=== PATIENT | male | born 1950 | race Two or more races ===

== ENCOUNTER 2020-08-20 09:36 | Outpatient (REF) | payer MEDICARE, SELFPAY | END 2020-08-20 09:37 | disposition home or self-care (01) | LOC: HO.HMGCLDS 09:36 | PROVIDERS: PCP Hospitalist; Visit Provider Internal Medicine | DX: Z20.822 Contact with and (suspected) exposure to COVID-19 (principal) | CPT/HCPCS: 36415; C9803; U0003 ==

== ENCOUNTER 2021-01-28 07:54 | Outpatient (REF) | payer MEDICARE, SELFPAY ==
--- NOTE | ~2021-01-28 | US_ITS ---
EXAMINATION: US RETROPERITONEAL LIMITED (AORTA) CLINICAL INFORMATION: Personal history of nicotine dependence. COMPARISON: None. TECHNIQUE: [place]edillo-scale, color Doppler and spectral Doppler evaluation of the abdominal aorta. FINDINGS: The measurements of the aorta in maximum AP and transverse dimensions respectively are as follows: Proximal: 2.3 x 2.3 cm. Mid: 1.9 x 1.8 cm. Distal: 1.9 x 1.8 cm. PSV: 87 cm/s. The measurements of the common iliac arteries in maximum AP and TRV dimensions are as follows: Right: AP: 1.2 cm. TRV: 1.0 cm. Left: AP: 1.2 cm. TRV: 1.1 cm. US/US aorta IMPRESSION: Mildly ectatic mid and distal abdominal aorta with no evidence of AAA visualized.
== END 2021-01-28 07:55 | disposition home or self-care (01) ==
LOC: HO.US 07:54
PROVIDERS: PCP Internal Medicine; Visit Provider Internal Medicine
DX: Z13.6 Encounter for screening for cardiovascular disorders (principal); Z87.891 Personal history of nicotine dependence
CPT/HCPCS: 76775

== ENCOUNTER 2021-03-10 10:39 | Emergency (ER) | payer MEDICARE, SELFPAY ==
--- NOTE | ~2021-03-10 | US_ITS ---
EXAMINATION: US VENOUS ULTRASOUND WITH DOPPLER LOWER EXTREMITY, BILATERAL CLINICAL INFORMATION: Bilateral leg swelling with posterior knee pain COMPARISON: None TECHNIQUE: Ultrasound of the deep veins is performed from the hip to the calf with compression sonography and color and pulse Doppler assessment. Spectral analysis with color-flow imaging is performed. FINDINGS: RIGHT: There is normal venous compression and respiratory variation and augmented flow. The visualized common femoral vein, superficial femoral vein, profunda femoral vein, popliteal vein, and the trifurcation region shows no evidence of deep venous thrombosis. No popliteal fossa cyst. No popliteal artery aneurysm. LEFT: There is normal venous compression and respiratory variation and augmented flow. The visualized common femoral vein, superficial femoral vein, profunda femoral vein, popliteal vein, and the trifurcation region shows no evidence of deep venous thrombosis. There is no significant popliteal fossa cyst. No pump to artery aneurysm. If the patient's symptoms persist, followup ultrasound in 5 days 7 days might be of value to exclude proximal propagation from a non-visualized calf vein. US/US venous duplex LE BI IMPRESSION: No acute DVT demonstrated in the bilateral lower extremity.
--- NOTE | ~2021-03-10 | XR_ITS ---
EXAMINATION: XR KNEE, RIGHT CLINICAL INFORMATION: Right posterior knee pain. COMPARISON: None TECHNIQUE: Four views of the right knee. FINDINGS: There is mild reduction in the medial and patellofemoral compartment joint space. There are large suprapatellar and anterior tibial eminence osteophytes. No loose body seen. Minimal supralateral joint effusion is suspected. No visible acute fracture or dislocation seen. XR/XR knee RT 4V IMPRESSION: Mild degenerative changes medial and patellofemoral compartments. No visible acute fracture or dislocation seen.
[2021-03-10 11:31] VITALS: BP 158/72; PULSE 72; RESP 18; TEMP 36.6; O2SAT 96; BMI 37.1
--- NOTE | 2021-03-10 12:10 | ECG_ITS ---
Test Reason : KNEE PAIN Blood Pressure : / mmHG Vent. Rate : 068 BPM Atrial Rate : 062 BPM P-R Int : 000 ms QRS Dur : 106 ms QT Int : 480 ms P-R-T Axes : 000 022 140 degrees QTc Int : 510 ms Atrial fibrillation with premature ventricular or aberrantly conducted complexes Incomplete left bundle branch block ST & T wave abnormality, consider lateral ischemia Prolonged QT Abnormal ECG When compared with ECG of 02-NOV-2019 21:26, Rhythm change Referred By: Gustabo Hou Electronically Signed By:AHMET KAPADIA
[2021-03-10 12:22] VITALS: BP 175/78; PULSE 68; RESP 17; TEMP 36.4; O2SAT 96
--- NOTE | 2021-03-10 12:22 | ED_ITS ---
HPI - Extremity Problem General Chief complaint: Extremity Problem Stated complaint: Pain right leg Time Seen by Provider: 03/10/21 10:44 Source: patient Mode of arrival: ambulatory Limitations: no limitations History of Present Illness HPI Narrative: Patient presents to ED for right posterior knee pain the past 4 d ays. Patient states pain radiating to upper calf. Patient denies any chest pain or shortness of breath. Patient admits to chronic bilateral lower swelling due to CHF. Patient denies any coughing up blood, or frothy cough. MD Complaint: extremity pain Related Data Home Medications Medication Instructions Recorded Confirmed amlodipine 10 mg tablet 10 mg PO DAILY 05/14/20 12/02/20 blood-glucose meter #1 ea 05/14/20 12/02/20 furosemide 40 mg tablet 40 mg PO BID 05/14/20 12/02/20 isosorbide mononitrate 60 mg 60 mg PO QAM 05/14/20 12/02/20 tablet,extended release 24 hr lancets #100 ea 05/14/20 12/02/20 sertraline 50 mg tablet 50 mg PO DAILY 05/14/20 12/02/20 hydroxyzine pamoate 50 mg capsule 50 mg PO BID PRN 10/14/20 12/02/20 apixaban 2.5 mg tablet 2.5 mg PO BID 12/02/20 12/02/20 hydralazine 50 mg tablet 25 mg PO TID 12/02/20 12/02/20 linagliptin 5 mg tablet 5 mg PO DAILY 12/02/20 12/02/20 Previous Rx's Medication Instructions Recorded ferrous sulfate 325 mg (65 mg 325 mg PO BID #60 tab 06/09/20 iron) tablet lisinopril 5 mg tablet 5 mg PO DAILY 90 Days #90 tab 12/02/20 loratadine 10 mg tablet (Allergy 10 mg PO DAILY 90 Days #90 tab 12/30/20 Relief (loratadine)) blood sugar diagnostic #50 ea 01/24/21 Allergies Allergy/AdvReac Type Severity Reaction Status Date / Time No Known Allergies Allergy Verified 12/02/20 13:32 [No Known Allergies*] Review of Systems Review of Systems: Yes all other systems are reviewed and are negative and unobtainable due to endotracheal tube Constitutional: Constitutional: Reports as per HPI and Reports no additional c onstitutional complaints Eyes: Eyes: Reports as per HPI and Reports no additional eye complaints ENT: Reports system reviewed and no additional complaints, except as documented and Reports as per HPI Cardiovascular: Cardiovascular: Reports as per HPI and Reports no additional cardiovascular complaints Respiratory: Respiratory: Reports as per HPI and Reports no additional respiratory complaints Gastrointestinal: Gastrointestinal: Reports as per HPI and Reports no additional gastrointestinal complaints Genitourinary: Genitourinary: Reports no additional male genitourinary complaints and Reports as per HPI Musculoskeletal: Musculoskeletal: Reports no additional musculoskeletal complaints and Reports as per HPI Comments: Right posterior knee pain Neurologic: Reports system reviewed and no additional complaints, except as documented and Reports as per HPI Psychiatric: Psychiatric: Reports no additional psychiatric complaints and Reports as per HPI [facility] Past Medical History Medical History (Updated 03/10/21 @ 16:41 by VIRAJ Yeung) Depression Diabetes Former smoker High cholesterol Hypertension Surgical History History of aneurysm History of shoulder surgery Family History Family History Father No problems noted. Mother Diabetes Hypertension Cancer Son No problems noted. Son No problems noted. Son No problems noted. Daughter No problems noted. Daughter No problems noted. Social History Social History (Updated 12/02/20 @ 13:36 by Alena Lyles MD) Alcohol intake: never Advance Directives: No Advance Directives Information Provided: Yes Physical Exam Vital Signs: Vital Signs: Last Vital Signs Temp 97.5 F 03/10/21 14:03 Pulse 67 03/10/21 14:03 Resp 16 03/10/21 14:03 BP 178/88 H 03/10/21 14:03 Pulse Ox 92 03/10/21 14:03 Body Mass Index 37.1 Const: General: cooperative, healthy appearing, comfortable, no acute distress, well developed, alert and awake HENMT: Head: Yes normal to inspection, Yes No palpable skull fracture present, Yes normocephalic, Yes atraumatic and No abrasion Eyes: General: appearance normal, both eyes and all related structures Neck: Neck: Yes normal visual inspection, Yes full ROM, Yes no lymphadenopathy, Yes no meningeal signs, Yes trachea midline, Yes supple and No tender Chest: Chest palpation & inspection: normal inspection of the chest and normal palpation of entire chest wall Resp: Effort & Inspection: normal respiratory effort and able to speak in complete sentences Auscultation: clear to auscultation bilaterally Cardio: Jugular venous distension: no JVD Heart sounds: S1 normal heart sound present and S2 normal heart sound present GI: Inspection: Yes normal to inspection and No abdominal wall ecchymosis Palpation (GI): Soft to palpation, not firm, nontender, no guarding and not rigid : General: No CVA tenderness and Yes no CVA tenderness Back/Spine/Pelvis: Back: no CVA tenderness, No CVA tenderness and No back tenderness Skin: General skin exam: no rashes or lesions noted and elasticity normal Neuro: General: no meningeal signs Extrem: Other: Left lower extremity positive for swelling, pitting edema. Negative for any erythema or calf tenderness. Vascular/motor/neuro exam intact Knee images: 1. Tenderness on palpation. Negative for erythema. Negative for palpable cord. Negative for mass on palpation. Rest the right lower extremity positive for swelling and pitting edema, but negative for any erythema. Vascular/motor/neuro exam is intact Course Course Course Narrative: Patient will have labs, sent for ultrasound of right lower extremity and knee x-ray. Will do BNP also. Reevaluation(s) Reevaluation #1: X-ray and ultrasound come back negative for blood clot. Mr. troponin 22. On 4. Patient denies any chest pain or shortness of breath. Patient is in [place] will give fluids. Time: 12:36 Reevaluation #2: Patient refusing repeat IV fluid and does not want repeat chemistry labs to be drawn. Patient agreeable to sign out against medical advice. Patient explained possibility of , decreased quality of life, and disability acute kidney injury. Patient discussed for possibility for evaluation of new atrial fibrillation as observation or admission, but will still like to sign out against medical advice.. on new onset atrial fibrillation is rate controlled and he is agreeable to follow up with outpatient Dr. Olivera of Cardiology Time: 16:37 MDM - Extremity (Nontraumatic) MDM Narrative Medical decision making narrative: Knee pain. Atrial fibrillation. A KI Lab Data Result diagrams: 03/10/21 12:36 03/10/21 12:36 Labs: Lab Results 03/10/21 03/10/21 03/10/21 Range/Units 12:36 12:36 12:36 WBC 7.0 (4.8-10.8) X10*3/uL RBC 3.81 L (4.60-5.80) X10*6/uL Hgb 10.4 L (14.0-18.0) g/dl Hct 31.6 L (42-52) % MCV 82.9 (80-98) fL MCH 27.3 (27.0-33.0) pg MCHC 32.9 (31.0-36.0) g/dl RDW 14.6 (11.0-16.0) % Plt Count 199 (160-400) X10*3/uL MPV 8.8 L (9.4-12.4) fL Immature Gran % (Auto) 0.6 H (0.0-0.4) % Neut % (Auto) 74.0 H (45-73) % Lymph % (Auto) 16.7 L (20-40) % [place] % (Auto) 7.2 (2-11) % Eos % (Auto) 1.4 (0-4) % Baso % (Auto) 0.1 (0-2) % Lymph # (Auto) 1.2 (1.2-4.9) X10*3/uL [place] # (Auto) 0.5 (0.1-1.2) X10*3/uL Eos # (Auto) 0.1 (0.0-0.4) X10*3/uL Baso # (Auto) 0.0 (0.0-0.2) X10*3/uL Abs Immat Gran (auto) 0.04 H (0.00-0.03) X10*3/uL Absolute Neuts (auto) 5.2 (2.0-8.3) X10*3/uL Absolute Nucleated RBC 0.000 (0.0-0.012) X10*3/uL Nucleated RBC % (auto) 0.0 (0.0-0.2) /100WBC PT (9.9-13.0) SEC INR (0.9-1.1) APTT (24.1-38.0) SEC Sodium 142 (135-145) mmol/L Potassium 3.3 (3.3-5.1) mmol/L Chloride 108 (96-108) mmol/L Carbon Dioxide 25 (22-29) mmol/L Anion Gap 12 (12-20) BUN 29 H (9-16) mg/dL Creatinine 1.74 H (0.5-1.4) mg/dL Estim Creat Clear Calc 45.9 Estimated GFR 39 Random Glucose 109 (60-115) mg/dL Calcium 8.2 L (8.4-10.2) mg/dL Total Bilirubin 0.7 (0.0-1.0) mg/dL AST 19 (5-37) U/L ALT 14 (0-40) U/L Alkaline Phosphatase 91 (39-117) U/L Troponin I High Sens (<3.5-35.0) ng/L B-Natriuretic Peptide 294 H (<100) pg/mL Total Protein 6.6 (6.5-8.0) g/dL Albumin 3.6 (3.5-5.0) g/dL TSH 1.40 (0.32-4.0) uIU/mL 03/10/21 03/10/21 03/10/21 Range/Units 12:36 12:37 15:26 WBC (4.8-10.8) X10*3/uL RBC (4.60-5.80) X10*6/uL Hgb (14.0-18.0) g/dl Hct (42-52) % MCV (80-98) fL MCH (27.0-33.0) pg MCHC (31.0-36.0) g/dl RDW (11.0-16.0) % Plt Count (160-400) X10*3/uL MPV (9.4-12.4) fL Immature Gran % (Auto) (0.0-0.4) % Neut % (Auto) (45-73) % Lymph % (Auto) (20-40) % [place] % (Auto) (2-11) % Eos % (Auto) (0-4) % Baso % (Auto) (0-2) % Lymph # (Auto) (1.2-4.9) X10*3/uL [place] # (Auto) (0.1-1.2) X10*3/uL Eos # (Auto) (0.0-0.4) X10*3/uL Baso # (Auto) (0.0-0.2) X10*3/uL Abs Immat Gran (auto) (0.00-0.03) X10*3/uL Absolute Neuts (auto) (2.0-8.3) X10*3/uL Absolute Nucleated RBC (0.0-0.012) X10*3/uL Nucleated RBC % (auto) (0.0-0.2) /100WBC PT 15.0 H (9.9-13.0) SEC INR 1.3 H (0.9-1.1) APTT 42.5 H (24.1-38.0) SEC Sodium (135-145) mmol/L Potassium (3.3-5.1) mmol/L Chloride (96-108) mmol/L Carbon Dioxide (22-29) mmol/L Anion Gap (12-20) BUN (9-16) mg/dL Creatinine (0.5-1.4) mg/dL Estim Creat Clear Calc Estimated GFR Random Glucose (60-115) mg/dL Calcium (8.4-10.2) mg/dL Total Bilirubin (0.0-1.0) mg/dL AST (5-37) U/L ALT (0-40) U/L Alkaline Phosphatase (39-117) U/L Troponin I High Sens 22.3 26.9 (<3.5-35.0) ng/L B-Natriuretic Peptide (<100) pg/mL Total Protein (6.5-8.0) g/dL Albumin (3.5-5.0) g/dL TSH (0.32-4.0) uIU/mL ECG Data Interpretation: Atrial fibrillation. Ventricular rate 68. QRS 106. QTC 510 Discharge Plan Discharge Clinical Impression: Arthritis of knee Patient Disposition: Left Against Medical Advice Instructions: A-fib (Atrial Fibrillation) (ED), Osteoarthritis (ED) Additional Instructions: Return to the ED for any redness, worsening leg pain, chest pain, shortness of breath, palpitations, fever, chills, paralysis of lower extremities, inability to walk, or any other concerning symptoms. Prescriptions: No Action ferrous sulfate 325 mg (65 mg iron) tablet 325 mg PO BID Qty: 60 RF: 10 loratadine [Allergy Relief (loratadine)] 10 mg tablet 10 mg PO DAILY 90 Days Qty: 90 RF: 1 (DME) blood sugar diagnostic Strip See Rx Instructions strip .ROUTE BID Qty: 50 RF: 11 amlodipine 10 mg tablet 10 mg PO DAILY RF: 0 sertraline 50 mg tablet 50 mg PO DAILY RF: 0 furosemide 40 mg tablet 40 mg PO BID RF: 0 isosorbide mononitrate 60 mg tablet extended release 24 hr 60 mg PO QAM RF: 0 (DME) blood-glucose meter Misc See Rx Instructions ea PO BID Qty: 1 RF: 0 (DME) lancets Misc See Rx Instructions lancet .ROUTE BID Qty: 100 RF: 0 Eliquis 2.5 mg tablet 2.5 mg PO BID RF: 0 Tradjenta 5 mg tablet 5 mg PO DAILY RF: 0 hydralazine 50 mg tablet 25 mg PO TID RF: 0 lisinopril 5 mg tablet 5 mg PO DAILY 90 Days Qty: 90 RF: 1 hydroxyzine pamoate 50 mg capsule 50 mg PO BID PRNRF: 0 Referrals: Edinson Olivera MD [Physician] - 2 days (New onset rate controlled atrial fibrillation. Patient already on Eliquis) Stand Alone Forms: Against Medical Advice Interventions: ED Discharge Assessment Last Done: 03/10/21 16:48 Discharge Date/Time: 03/10/21 16:48 Print Language: Kyrgyz
[2021-03-10 12:45] LABS: MANUAL DIFF FLAG NO
[2021-03-10 12:55] LABS: Basophils Percent Auto 0.1 % (0-2); Eosinophils Absolute Auto 0.1 X10*3/uL (0.0-0.4); Eosinophils Percent Auto 1.4 % (0-4); Hematocrit 31.6 % (42-52); Hemoglobin 10.4 g/dl (14.0-18.0); Imm Gran Abs Auto 0.04 X10*3/uL (0.00-0.03); Imm Gran Pct Auto 0.6 % (0.0-0.4); Lymphocytes Absolute Auto 1.2 X10*3/uL (1.2-4.9); Lymphocytes Percent Auto 16.7 % (20-40); Mean Corpuscular HGB Conc 32.9 g/dl (31.0-36.0); Mean Corpuscular Hemoglobin 27.3 pg (27.0-33.0); Mean Corpuscular Volume 82.9 fL (80-98); Mean Platelet Volume 8.8 fL (9.4-12.4); Monocytes Absolute Auto 0.5 X10*3/uL (0.1-1.2); Monocytes Percent Auto 7.2 % (2-11); Neutrophils Absolute Auto 5.2 X10*3/uL (2.0-8.3); Platelet Count 199 X10*3/uL (160-400); Red Blood Count 3.81 X10*6/uL (4.60-5.80); Red Cell Distribution Width 14.6 % (11.0-16.0)
[2021-03-10 12:58] LABS: INTERNATIONAL NORM RATIO 1.3 (0.9-1.1)
[2021-03-10 13:01] LABS: Partial Thromboplastin Time 42.5 SEC (24.1-38.0)
[2021-03-10 13:08] LABS: Alanine Aminotransferase 14 U/L (0-40); Albumin Level 3.6 g/dL (3.5-5.0); Alkaline Phosphatase 91 U/L (39-117); Anion Gap 12 (12-20); Aspartate Amino Transferase 19 U/L (5-37); Bilirubin Total 0.7 mg/dL (0.0-1.0); Blood Urea Nitrogen 29 mg/dL (9-16); Calcium 8.2 mg/dL (8.4-10.2); Carbon Dioxide 25 mmol/L (22-29); Chloride 108 mmol/L (96-108); Creatinine Clr Calc Pharmacy 45.9; Estimated Glomerular Filt Rate 39; Glucose Random 109 mg/dL (60-115); Potassium 3.3 mmol/L (3.3-5.1); Sodium 142 mmol/L (135-145); Total Protein 6.6 g/dL (6.5-8.0)
[2021-03-10 13:14] LABS: B Type Natriuretic Peptide 294 pg/mL (<100)
[2021-03-10 13:15] LABS: Troponin-I High Sensitivity 22.3 ng/L (<3.5-35.0)
[2021-03-10 14:03] VITALS: BP 178/88; PULSE 67; RESP 16; TEMP 36.4; O2SAT 92
[2021-03-10 16:01] LABS: Troponin-I High Sensitivity 26.9 ng/L (<3.5-35.0)
--- NOTE | 2021-03-10 16:26 | PC.NURSE ---
pt refusing iv line and ordered iv fluids. provider at bedside to discuss plan of care.
== END 2021-03-10 16:48 | disposition left against medical advice (07) ==
PROVIDERS: Physician Assistant; Emergency Provider Emergency Medicine; PCP Internal Medicine
DX: M17.0 Bilateral primary osteoarthritis of knee (principal); I48.91 Unspecified atrial fibrillation; M79.604 Pain in right leg; M25.561 Pain in right knee; R06.02 Shortness of breath; R60.0 Localized edema; Z79.899 Other long term (current) drug therapy; Z87.891 Personal history of nicotine dependence
CPT/HCPCS: 36415; 73564; 80053; 83880; 84443; 84484; 85025; 85610; 85730; 93005; 93970; 99284

== ENCOUNTER 2021-04-01 11:40 | Emergency (ER) | payer MEDICARE, SELFPAY ==
--- NOTE | ~2021-04-01 | XR_ITS ---
EXAMINATION: XR CHEST CLINICAL INFORMATION: Congestive heart failure COMPARISON: Chest x-ray November 02, 2019 TECHNIQUE: Frontal portable view of the chest was obtained. 4:29 PM FINDINGS: There is mild increase prior vascularity with mild cephalization of the pulmonary vascularity and faint curly B lines at the right lung base. No overt pulmonary edema. No dense consolidation. No large pleural effusion. Cardiac and mediastinal contours are normal. There is multilevel degenerative spondylosis spine. Degenerative joint disease of right and left glenohumeral joints with spurs of the humeral head. XR/XR chest 1V IMPRESSION: Mild congestive heart failure. No overt pulmonary edema.
[2021-04-01 12:04] VITALS: BP 154/58; PULSE 72; RESP 18; TEMP 36.8; O2SAT 93; BMI 34.8
--- NOTE | 2021-04-01 15:26 | ED_ITS ---
HPI - General Adult General Chief complaint: General Medical Stated complaint: difficulty breathing, swollen legs Time Seen by Provider: 04/01/21 15:26 Source: patient Mode of arrival: ambulatory Limitations: no limitations History of Present Illness HPI narrative: Patient complaining of bilateral leg swelling and shortness of breath for last 3- 4 days says he ran out of his water pill denies any chest pain. Patient denies any cough no fever no chills gained several lbs in last few days Related Data Home Medications Medication Instructions Recorded Confirmed amlodipine 10 mg tablet 10 mg PO DAILY 05/14/20 12/02/20 blood-glucose meter #1 ea 05/14/20 12/02/20 furosemide 40 mg tablet 40 mg PO BID 05/14/20 12/02/20 isosorbide mononitrate 60 mg 60 mg PO QAM 05/14/20 12/02/20 tablet,extended release 24 hr lancets #100 ea 05/14/20 12/02/20 sertraline 50 mg tablet 50 mg PO DAILY 05/14/20 12/02/20 hydroxyzine pamoate 50 mg capsule 50 mg PO BID PRN 10/14/20 12/02/20 apixaban 2.5 mg tablet 2.5 mg PO BID 12/02/20 12/02/20 hydralazine 50 mg tablet 25 mg PO TID 12/02/20 12/02/20 linagliptin 5 mg tablet 5 mg PO DAILY 12/02/20 12/02/20 Previous Rx's Medication Instructions Recorded ferrous sulfate 325 mg (65 mg 325 mg PO BID #60 tab 06/09/20 iron) tablet lisinopril 5 mg tablet 5 mg PO DAILY 90 Days #90 tab 12/02/20 loratadine 10 mg tablet (Allergy 10 mg PO DAILY 90 Days #90 tab 12/30/20 Relief (loratadine)) blood sugar diagnostic #50 ea 01/24/21 Allergies Allergy/AdvReac Type Severity Reaction Status Date / Time No Known Allergies Allergy Verified 12/02/20 13:32 [No Known Allergies*] Review of Systems Review of Systems: Constitutional : No Weight loss, No Fever, No Chills ENT/Mouth : No sore throat, No Rhinorrhea Eyes: No Eye Pain, No Swelling Cardiovascular : No Chest Pain, no palpitations Respiratory : No Cough, No Sputum, +++shortness of breath Gastrointestinal : no Nausea, No Vomiting, No Diarrhea, No abdominal Pain, no black stools Genitourinary : No Dysuria, No Urinary Frequency Musculoskeletal : No joint pain, No Myalgias, No Joint Swelling Skin : No Skin Lesions, No rash Neuro : No Weakness, No Numbness, No Dizziness, No Headache Psych : No Anxiety/Panic, No Depression Heme/Lymph: No Bruising, No Lymphadenopathy Endocrine : No Polyuria, No Polydipsia All other systems reviewed and are negative Yes all other systems are reviewed and are negative [facility] Past Medical History Medical History (Updated 04/01/21 @ 16:50 by Salty Mclean MD) Depression Diabetes Former smoker High cholesterol Hypertension Surgical History History of aneurysm History of shoulder surgery Family History Family History Father No problems noted. Mother Diabetes Hypertension Cancer Son No problems noted. Son No problems noted. Son No problems noted. Daughter No problems noted. Daughter No problems noted. Social History Social History (Updated 12/02/20 @ 13:36 by Alena Lyles MD) Alcohol intake: never Advance Directives: Yes Advance Directives Information Provided: Yes Advance Directives on File: No Physical Exam Vital Signs: Vital Signs: Last Vital Signs Temp 98.7 F 04/01/21 16:33 Pulse 75 04/01/21 16:33 Resp 16 04/01/21 16:33 BP 187/95 H 04/01/21 16:33 Pulse Ox 97 04/01/21 16:33 Body Mass Index 34.8 Appearance: Alert. Oriented X3. No acute distress. Eyes: PERRLA, No Nystagmus ENT: Pharynx normal. Oral Mucosa moist Neck: Normal inspection. Neck supple. CVS: Normal heart rate and rhythm. Pulses normal. Respiratory: No respiratory distress. no wheezing/rales/rhonchi, decreased air entry bilateral bases Abdomen: Soft and nontender. Bowel sounds are present, no mass palpable, no CVA tenderness Skin: Skin warm and dry. Normal skin color. Normal skin turgor. Extremities: 4++ lower extremity edema. No calf tenderness Neuro: Oriented X 3. No motor deficit. No sensory deficit.No cerebellar signs , cranial nerves II-XII intact Medical Decision Making MDM Narrative Medical decision making narrative: Patient with increased shortness of breath with exertional dyspnea and increased leg edema clinically CHF labs are pending patient was given Lasix 40 mg IV patient used to be on 40 mg Lasix twice daily, patient saturating 97% on room air. Patient isigned out to Dr. Stein pending labs and disposition Lab Data Lab results reviewed: Yes I reviewed the patient's lab results. Result diagrams: 04/01/21 16:27 04/01/21 16:27 Labs: Lab Results 04/01/21 Range/Units 16:27 WBC 6.4 (4.8-10.8) X10*3/uL RBC 3.56 L (4.60-5.80) X10*6/uL Hgb 9.9 L (14.0-18.0) g/dl Hct 30.5 L (42-52) % MCV 85.7 (80-98) fL MCH 27.8 (27.0-33.0) pg MCHC 32.5 (31.0-36.0) g/dl RDW 15.5 (11.0-16.0) % Plt Count 211 (160-400) X10*3/uL MPV 8.6 L (9.4-12.4) fL Immature Gran % (Auto) 0.5 H (0.0-0.4) % Neut % (Auto) 71.8 (45-73) % Lymph % (Auto) 18.2 L (20-40) % [place] % (Auto) 7.1 (2-11) % Eos % (Auto) 2.2 (0-4) % Baso % (Auto) 0.2 (0-2) % Lymph # (Auto) 1.2 (1.2-4.9) X10*3/uL [place] # (Auto) 0.5 (0.1-1.2) X10*3/uL Eos # (Auto) 0.1 (0.0-0.4) X10*3/uL Baso # (Auto) 0.0 (0.0-0.2) X10*3/uL Abs Immat Gran (auto) 0.03 (0.00-0.03) X10*3/uL Absolute Neuts (auto) 4.6 (2.0-8.3) X10*3/uL Absolute Nucleated RBC 0.000 (0.0-0.012) X10*3/uL Nucleated RBC % (auto) 0.0 (0.0-0.2) /100WBC Discharge Plan Discharge Clinical Impression: Congestive heart failure Qualifiers: Heart failure type: combined systolic and diastolic Heart failure chronicity: chronic Qualified Code(s): I50.42 - Chronic combined systolic (congestive) and diastolic (congestive) heart failure Prescriptions: No Action ferrous sulfate 325 mg (65 mg iron) tablet 325 mg PO BID Qty: 60 RF: 10 loratadine [Allergy Relief (loratadine)] 10 mg tablet 10 mg PO DAILY 90 Days Qty: 90 RF: 1 (DME) blood sugar diagnostic Strip See Rx Instructions strip .ROUTE BID Qty: 50 RF: 11 amlodipine 10 mg tablet 10 mg PO DAILY RF: 0 sertraline 50 mg tablet 50 mg PO DAILY RF: 0 furosemide 40 mg tablet 40 mg PO BID RF: 0 isosorbide mononitrate 60 mg tablet extended release 24 hr 60 mg PO QAM RF: 0 (DME) blood-glucose meter Misc See Rx Instructions ea PO BID Qty: 1 RF: 0 (DME) lancets Misc See Rx Instructions lancet .ROUTE BID Qty: 100 RF: 0 Eliquis 2.5 mg tablet 2.5 mg PO BID RF: 0 Tradjenta 5 mg tablet 5 mg PO DAILY RF: 0 hydralazine 50 mg tablet 25 mg PO TID RF: 0 lisinopril 5 mg tablet 5 mg PO DAILY 90 Days Qty: 90 RF: 1 hydroxyzine pamoate 50 mg capsule 50 mg PO BID PRNRF: 0
--- NOTE | 2021-04-01 15:29 | ECG_ITS ---
Test Reason : MEDICAL Blood Pressure : / mmHG Vent. Rate : 075 BPM Atrial Rate : 288 BPM P-R Int : 000 ms QRS Dur : 094 ms QT Int : 460 ms P-R-T Axes : 000 029 146 degrees QTc Int : 513 ms Atrial fibrillation Nonspecific T wave abnormality Prolonged QT Abnormal ECG When compared with ECG of 10-MAR-2021 12:19, No significant change was found Referred By: Salty Mclean Electronically Signed By:HAN WHITE
[2021-04-01 16:33] VITALS: BP 187/95; PULSE 75; RESP 16; TEMP 37.1; O2SAT 97
[2021-04-01 16:33] LABS: MANUAL DIFF FLAG NO
--- NOTE | 2021-04-01 16:35 | PC.NURSE ---
DMITRY WILEY IS AWARE OF PATIENT HIGH BLOOD PRESSURE .
[2021-04-01] MEDS: Furosemide 40 MG/4 ML VIAL IVPUSH (16:38)
[2021-04-01 16:39] LABS: Basophils Percent Auto 0.2 % (0-2); Eosinophils Absolute Auto 0.1 X10*3/uL (0.0-0.4); Eosinophils Percent Auto 2.2 % (0-4); Hematocrit 30.5 % (42-52); Hemoglobin 9.9 g/dl (14.0-18.0); Imm Gran Abs Auto 0.03 X10*3/uL (0.00-0.03); Imm Gran Pct Auto 0.5 % (0.0-0.4); Lymphocytes Absolute Auto 1.2 X10*3/uL (1.2-4.9); Lymphocytes Percent Auto 18.2 % (20-40); Mean Corpuscular HGB Conc 32.5 g/dl (31.0-36.0); Mean Corpuscular Hemoglobin 27.8 pg (27.0-33.0); Mean Corpuscular Volume 85.7 fL (80-98); Mean Platelet Volume 8.6 fL (9.4-12.4); Monocytes Absolute Auto 0.5 X10*3/uL (0.1-1.2); Monocytes Percent Auto 7.1 % (2-11); Neutrophils Absolute Auto 4.6 X10*3/uL (2.0-8.3); Neutrophils Percent Auto 71.8 % (45-73); Platelet Count 211 X10*3/uL (160-400); Red Blood Count 3.56 X10*6/uL (4.60-5.80); Red Cell Distribution Width 15.5 % (11.0-16.0); White Blood Count 6.4 X10*3/uL (4.8-10.8)
[2021-04-01 16:46] LABS: INTERNATIONAL NORM RATIO 1.3 (0.9-1.1); Prothrombin Time 14.6 SEC (9.9-13.0)
[2021-04-01 16:49] LABS: Partial Thromboplastin Time 41.7 SEC (24.1-38.0)
[2021-04-01 16:56] LABS: Anion Gap 13 (12-20); Blood Urea Nitrogen 25 mg/dL (9-16); Calcium 8.4 mg/dL (8.4-10.2); Carbon Dioxide 24 mmol/L (22-29); Chloride 109 mmol/L (96-108); Creatinine Clr Calc Pharmacy 43.7; Estimated Glomerular Filt Rate 36; Glucose Random 88 mg/dL (60-115); Potassium 3.9 mmol/L (3.3-5.1); Sodium 142 mmol/L (135-145)
[2021-04-01 17:04] LABS: B Type Natriuretic Peptide 453 pg/mL (<100); Troponin-I High Sensitivity 19.8 ng/L (<3.5-35.0)
[2021-04-01 17:14] LABS: Alanine Aminotransferase 23 U/L (0-40); Albumin Level 3.6 g/dL (3.5-5.0); Alkaline Phosphatase 95 U/L (39-117); Aspartate Amino Transferase 26 U/L (5-37); Bilirubin Direct 0.3 mg/dL (0.0-0.5); Bilirubin Total 0.9 mg/dL (0.0-1.0); Total Protein 6.8 g/dL (6.5-8.0)
== END 2021-04-01 18:39 | disposition home or self-care (01) ==
PROVIDERS: Emergency Provider Internal Medicine; PCP Internal Medicine
DX: I11.0 Hypertensive heart disease with heart failure (principal); I50.9 Heart failure, unspecified; R06.02 Shortness of breath; R22.43 Localized swelling, mass and lump, lower limb, bilateral; E11.9 Type 2 diabetes mellitus without complications; E78.5 Hyperlipidemia, unspecified; Z91.14 Patient's other noncompliance with medication regimen
CPT/HCPCS: 36415; 71045; 80048; 80076; 83880; 84484; 85025; 85610; 85730; 93005; 96374; 99284; J1940

== ENCOUNTER 2021-04-15 19:38 | Emergency (ER) | payer MEDICARE, SELFPAY ==
[2021-04-15 20:26] VITALS: BP 167/74; PULSE 105; RESP 16; TEMP 36.6; O2SAT 95; BMI 37.5
[2021-04-15 20:56] LABS: COVID-19 Test Negative (Negative)
--- NOTE | 2021-04-15 21:07 | PC.NURSE ---
PT SEEN WALKING OUT OF WAITING ROOM.
== END 2021-04-15 22:14 | disposition left against medical advice (07) ==
PROVIDERS: Emergency Provider Emergency Medicine; PCP Internal Medicine
DX: F41.9 Anxiety disorder, unspecified (principal); Z20.822 Contact with and (suspected) exposure to COVID-19
CPT/HCPCS: 36415; 87635; 99282; 99283

== ENCOUNTER 2021-04-30 00:56 | Emergency (ER) | payer MEDICARE, SELFPAY ==
[2021-04-30] VITALS (9 sets, daily range): BP systolic 157–203; BP diastolic 71–130; PULSE 66–83; RESP 16–22; TEMP 36.4–37.1; O2SAT 95–99; BMI 37.5
--- NOTE | 2021-04-30 01:15 | ED.PSYCH ---
HPI - Psych General Chief Complaint: Psychiatric Symptoms Stated Complaint: SI W/ PLAN CALM AND COOPERATIVE Time Seen by Provider: 04/30/21 01:14 Source: patient Mode of arrival: EMS Limitations: no limitations History of Present Illness HPI Narrative: Patient is a 70-year-old male with a past medical history of diabetes, depression, HLD and HTN who was brought in by ambulance after threatening to hurt himself. Patient states he does not have a specific plan but he states his told him she did not want to be with him anymore and he is very upset about it, this is the 2nd time this has happened He states he has no desire to hurt anyone else, he denies any alcohol or drug use. He has no physical complaints at this time. He denies any hallucinations. He knows he takes medications on a daily basis but he is not sure which ones. He denies seeing a therapist or taking any mental health medications. Related Data Home Medications Medication Instructions Recorded Confirmed amlodipine 10 mg tablet 10 mg PO DAILY 05/14/20 12/02/20 blood-glucose meter #1 ea 05/14/20 12/02/20 furosemide 40 mg tablet 40 mg PO BID 05/14/20 12/02/20 isosorbide mononitrate 60 mg 60 mg PO QAM 05/14/20 12/02/20 tablet,extended release 24 hr lancets #100 ea 05/14/20 12/02/20 sertraline 50 mg tablet 50 mg PO DAILY 05/14/20 12/02/20 hydroxyzine pamoate 50 mg capsule 50 mg PO BID PRN 10/14/20 12/02/20 apixaban 2.5 mg tablet 2.5 mg PO BID 12/02/20 12/02/20 hydralazine 50 mg tablet 25 mg PO TID 12/02/20 12/02/20 linagliptin 5 mg tablet 5 mg PO DAILY 12/02/20 12/02/20 Previous Rx's Medication Instructions Recorded ferrous sulfate 325 mg (65 mg 325 mg PO BID #60 tab 06/09/20 iron) tablet lisinopril 5 mg tablet 5 mg PO DAILY 90 Days #90 tab 12/02/20 loratadine 10 mg tablet (Allergy 10 mg PO DAILY 90 Days #90 tab 12/30/20 Relief (loratadine)) blood sugar diagnostic #50 ea 01/24/21 furosemide 40 mg tablet 40 mg PO BID #20 tab 04/01/21 Allergies Allergy/AdvReac Type Severity Reaction Status Date / Time No Known Allergies Allergy Verified 04/15/21 20:25 [No Known Allergies*] Review of Systems Review of Systems: Yes all other systems are reviewed and are negative [facility] Past Medical History Medical History Depression Diabetes Former smoker High cholesterol Hypertension Surgical History History of aneurysm History of shoulder surgery Family History Family History Father No problems noted. Mother Diabetes Hypertension Cancer Son No problems noted. Son No problems noted. Son No problems noted. Daughter No problems noted. Daughter No problems noted. Social History Social History Alcohol intake: unknown Patient Tobacco Use Status: Tobacco use Unknown Advance Directives: No Advance Directives Information Provided: Yes Physical Exam Vital Signs: Vital Signs: Last Vital Signs Temp 97.5 F 04/30/21 01:21 Pulse 75 04/30/21 01:52 Resp 22 H 04/30/21 01:21 BP 186/71 H 04/30/21 01:52 Pulse Ox 95 04/30/21 01:21 Const: General: cooperative, healthy appearing, comfortable, no acute distress and well developed Orientation/consciousness: patient oriented x3 Limitations: no limitations HENMT: Head: Yes normal to inspection Eyes: General: appearance normal, both eyes and all related structures Neck: Neck: Yes normal visual inspection and Yes full ROM Resp: Effort & Inspection: normal respiratory effort and able to speak in complete sentences Skin: General skin exam: no rashes or lesions noted Neuro: General: patient oriented x3 Extrem: General: Yes normal to inspection Psych: Appearance: grossly normal and well kempt Mental Status: mental status grossly normal Speech and movement: Normal speech and movement present Affect: Sad affect present Attitude: cooperative Thought process: Normal thought process present Thought content: Suicidality present, no homicidality, no hallucinations and Depressive thoughts present Insight: Fair insight present (Psych) Judgement: Fair judgement present (Psych) Course Course Course Narrative: Care team consult placed, pt elevated BP, gave home med of hydralazine, nurse to follow BP's Reevaluation(s) Reevaluation #1: Sign out to Dr Good Time: 01:57 Discharge Plan Discharge Clinical Impression: Suicidal ideation Prescriptions: No Action ferrous sulfate 325 mg (65 mg iron) tablet 325 mg PO BID Qty: 60 RF: 10 loratadine [Allergy Relief (loratadine)] 10 mg tablet 10 mg PO DAILY 90 Days Qty: 90 RF: 1 (DME) blood sugar diagnostic Strip See Rx Instructions strip .ROUTE BID Qty: 50 RF: 11 furosemide 40 mg tablet 40 mg PO BID Qty: 20 RF: 0 amlodipine 10 mg tablet 10 mg PO DAILY RF: 0 sertraline 50 mg tablet 50 mg PO DAILY RF: 0 furosemide 40 mg tablet 40 mg PO BID RF: 0 isosorbide mononitrate 60 mg tablet extended release 24 hr 60 mg PO QAM RF: 0 (DME) blood-glucose meter Misc See Rx Instructions ea PO BID Qty: 1 RF: 0 (DME) lancets Misc See Rx Instructions lancet .ROUTE BID Qty: 100 RF: 0 Eliquis 2.5 mg tablet 2.5 mg PO BID RF: 0 Tradjenta 5 mg tablet 5 mg PO DAILY RF: 0 hydralazine 50 mg tablet 25 mg PO TID RF: 0 lisinopril 5 mg tablet 5 mg PO DAILY 90 Days Qty: 90 RF: 1 hydroxyzine pamoate 50 mg capsule 50 mg PO BID PRNRF: 0
[2021-04-30] MEDS: hydrALAZINE HCl 50 MG TABLET PO (01:52)
[2021-04-30 02:06] LABS: Appearance Urine CLEAR; Basophils Percent Auto 0.2 % (0-2); Color Urine STRAW; Eosinophils Absolute Auto 0.2 X10*3/uL (0.0-0.4); Eosinophils Percent Auto 2.7 % (0-4); Glucose Urine UA NEG (NEG); Hematocrit 29.7 % (42-52); Hemoglobin 9.8 g/dl (14.0-18.0); Imm Gran Abs Auto 0.01 X10*3/uL (0.00-0.03); Imm Gran Pct Auto 0.2 % (0.0-0.4); Leukocyte Esterase Urine NEG (NEG); Lymphocytes Absolute Auto 1.2 X10*3/uL (1.2-4.9); Lymphocytes Percent Auto 19.3 % (20-40); MANUAL DIFF FLAG NO; Mean Corpuscular Hemoglobin 27.1 pg (27.0-33.0); Mean Corpuscular Volume 82.3 fL (80-98); Mean Platelet Volume 8.9 fL (9.4-12.4); Monocytes Absolute Auto 0.6 X10*3/uL (0.1-1.2); Monocytes Percent Auto 9.2 % (2-11); Neutrophils Absolute Auto 4.3 X10*3/uL (2.0-8.3); Neutrophils Percent Auto 68.4 % (45-73); Nitrite Urine NEG (NEG); Platelet Count 186 X10*3/uL (160-400); Red Blood Count 3.61 X10*6/uL (4.60-5.80); Red Cell Distribution Width 15.1 % (11.0-16.0); UACC Culture Trigger NO; Urine Blood TRACE (NEG); Urine Ketones NEG (NEG); Urine Protein 2+ MG/DL (NEG-TRACE); White Blood Count 6.2 X10*3/uL (4.8-10.8)
[2021-04-30 02:13] LABS: RBC Urine 0 /HPF (0); WBC Urine 0-2 /HPF (0-4)
[2021-04-30 02:18] LABS: COVID-19 Test Negative (Negative); IDNOW Serial# 9DD0AD1C
[2021-04-30 02:20] LABS: Ethanol < 10 mg/dL
[2021-04-30 02:22] LABS: Amphetamine Screen Urine Not Detected (Not Detect); Barbiturates, Urine Not Detected (Not Detect); Benzodiazepines Screen Urine Not Detected (Not Detect); Cannabinoid Screen Urine Not Detected (Not Detect); Cocaine Screen Urine Not Detected (Not Detect); Opiate Screen Urine Not Detected (Not Detect); Phencyclidine Screen Urine Not Detected (Not Detect)
[2021-04-30 02:22] LABS: Anion Gap 12 (12-20); Blood Urea Nitrogen 26 mg/dL (9-16); Calcium 8.3 mg/dL (8.4-10.2); Carbon Dioxide 25 mmol/L (22-29); Chloride 107 mmol/L (96-108); Estimated Glomerular Filt Rate 35; Glucose Random 86 mg/dL (60-115); Potassium 3.4 mmol/L (3.3-5.1); Sodium 141 mmol/L (135-145)
[2021-04-30 02:28] LABS: Fentanyl, urine Not Detected (Not Detect)
--- NOTE | 2021-04-30 05:40 | PC.NURSE ---
Pt. arrived to ED Pod at 0100 transported by [facility]. Pt. reported he called 911 due to SI with plan to cut wrists. Pt. stated, I don't feel good. My don't like me. I was worried. Pt. reported no past history of trying to hurt himself or kill himself. The pt. reported depression 02/19 and anxiety 03/22. He does not see an outpatient counselor or psychiatrist. Pt. contracts for safety on the unit. BP elevated 186/71, HR 75. Pt. medication with hydralazine 50mg x1. BP reassessed at 157/77, HR 66. Pt. reports he received both doses of the Moderna about 5 months ago. Pt. reports no known allergies. No hx of ETOH or drug use. Pt. has a medical history of diabetes managed with tradjenta 5mg daily, hypertension and high cholesterol. Pharmacy is [facility] on [facility] in [place]. Pt. does not want his Valarie Schuster notified of his admission. Pt. resting quietly.
[2021-04-30] MEDS: amLODIPine Besylate 10 MG TABLET PO (11:00)
--- NOTE | 2021-04-30 13:03 | MHC.CARE ---
Presenting Problem: Pt is a 70yro, , , Occitan speaking male who arrived at [facility] via EMS from home after he called 911 due to feeling urges to harm himself (thoughts of cutting his wrist with a knife). Pt reported at triage he was feeling suicidal and stated his plan to cut himself in reaction to his leaving him a few days ago. Pt stated that his and he have been having issues for over a year and he described how he often is loud and complains often which he thinks is why she left. He feels upset at the?idea of not?being with her and this is what precipitated his thoughts of harming himself. He stated it was just thoughts tho, I didn't want to hurt myself or and that's?why I called 911 . Pt carries a hx of anxiety and per record review, and has presented to the ED historically for reported episodes of anxiety only. Pt denied hx of SI, attempts, or plans. Pt has no hx of IPLOC or formal MH tx. He has no mental health providers, and takes hydroxyzine only as prescribed by his PCP.? ? Mental Status: CARE team interviewed pt with Emergency Room Physician Assistant this am in the POD of the ED. Pt was resting quietly in bed upon entering. He was willing to engage?in assessment?and consented to continue with emergency department physician service. Pt s appearance was WNL as he was dressed in hospital?attire and observed well groomed.He presented as alert and was oriented to Person, Place, Time and Situation. Pt presented with calm and cooperative behavior. Pt spoke in a loud tone but not aggressive or irritable. His speech at times was unclear due to mumbling. He described his mood was upset about his marital issues and congruent with his reported concerns and somewhat anxious affect noted.Pt?did not present with overt cognitive impairment?and he denied concerns about cognitive decline, or memory deficits. Pt was able to follow interview questions and able to follow directions (observed ambulating to the pod bathroom after given directions). Pt denied experiencing psychotic features currently or historically. Pt was goal oriented and stated he feels better and wanted to return home. Pts judgement and insight appears fair in that he has sought help and agreed to safety plan as well as OP referrals. Case presented to on-call Psychiatrist Dr Sandie Burt for continuity and plan to dc pt based on lack of imminent risk and denial of intent to harm oneself.? Plan: Pt will utilize coping skills when feeling anxious and will use medications as prescribed. If Pt is feeling unsafe/taking actions toward harming himself or others he will talk to his son (Luke) or Father in via phone, or call crisis hotlines, or come to the ED. Pt reviewed sxs to watch for and when to seek crisis and provided with numbers. Pt referred to [facility] for therapy and prescriber via fax at 1300 and pt willing to follow up.
== END 2021-04-30 11:34 | disposition home or self-care (01) ==
PROVIDERS: Physician Assistant; Emergency Provider Emergency Medicine
DX: F33.1 Major depressive disorder, recurrent, moderate (principal); R45.851 Suicidal ideations; Z20.822 Contact with and (suspected) exposure to COVID-19; Z79.899 Other long term (current) drug therapy; Z87.891 Personal history of nicotine dependence
CPT/HCPCS: 36415; 80048; 80307; 81001; 82077; 85025; 87635; 99285

== ENCOUNTER 2021-05-04 13:57 | Emergency (ER) | payer MEDICARE, SELFPAY ==
--- NOTE | 2021-05-04 14:03 | ED_ITS ---
HPI - Psych General Chief Complaint: Psychiatric Symptoms Stated Complaint: +SI Time Seen by Provider: 05/04/21 14:02 Source: patient and EMS Mode of arrival: EMS Limitations: no limitations History of Present Illness HPI Narrative: 70 y/o male with history of depression, HTN, HLD & CKD who presents to the ER via EMS with reports of SI. He was seen here on 04/30 for similar presentation, he was seen by the CARE team and discharged home. He reports ongoing depression and recurrent suicidal thoughts. His left him because I talk too much. He reports they fought a lot and she left him 2 week ago. She will not answer his phone calls. He wants to . He has thought about driving off of a [place] or cutting his wrists to end his life. He has no history of suicide attempts in the past. He denies alcohol or drug use. MD complaint: suicidal ideation Onset (ago): week(s) (2) Duration: constant History of same: Yes Relieving factors: none Exacerbating factors: none Associated psychiatric symptoms: depression and suicidal ideation Associated symptoms: denies other symptoms Treatments prior to arrival: none If self harm: admits thoughts of self harm and has plan Details of plan: slit wrists or drive off a [place] Related Data Home Medications Medication Instructions Recorded Confirmed blood-glucose meter #1 ea 05/14/20 04/30/21 lancets #100 ea 05/14/20 04/30/21 hydroxyzine pamoate 50 mg capsule 50 mg PO BID PRN 10/14/20 04/30/21 apixaban 2.5 mg tablet 2.5 mg PO BID 12/02/20 04/30/21 linagliptin 5 mg tablet 5 mg PO DAILY 12/02/20 04/30/21 Previous Rx's Medication Instructions Recorded blood sugar diagnostic #50 ea 01/24/21 furosemide 40 mg tablet 40 mg PO BID #20 tab 04/01/21 amlodipine 10 mg tablet (Norvasc) 10 mg PO DAILY #30 tab 04/30/21 hydroxyzine HCl 50 mg tablet 50 mg PO BID PRN #14 tab 04/30/21 Allergies Allergy/AdvReac Type Severity Reaction Status Date / Time No Known Allergies Allergy Verified 04/15/21 20:25 [No Known Allergies*] Review of Systems Constitutional: Constitutional: Denies chills, Denies fever(s) and Reports headache(s) Eyes: Eyes: Reports no additional eye complaints ENT: Reports Normal hearing present and Reports headache(s) Cardiovascular: Cardiovascular: Denies chest pain and Denies dyspnea Respiratory: Respiratory: Denies dyspnea Gastrointestinal: Gastrointestinal: Denies nausea and Denies vomiting Integumentary/Breasts: Skin/Breast: Denies rash Neurologic: Reports Normal hearing present and Reports headache(s) Psychiatric: Psychiatric: Reports anxiety, Reports change in appetite, Reports depression, Reports difficulty concentrating and Reports hopelessness Hematologic/Lymphatic: Hematologic/Lymphatic: Denies easy bleeding and Denies easy bruising PMFSH Past Medical History Attestation statement: The following information was validated with the patient. Medical History (Updated 05/04/21 @ 15:24 by VIRAJ Quintanilla) CKD (chronic kidney disease) Depression Diabetes Former smoker High cholesterol Hypertension Surgical History History of aneurysm History of shoulder surgery Family History Family History Father No problems noted. Mother Diabetes Hypertension Cancer Son No problems noted. Son No problems noted. Son No problems noted. Daughter No problems noted. Daughter No problems noted. Social History Social History Alcohol intake: never Patient Tobacco Use Status: Tobacco use Unknown Advance Directives: No Advance Directives Information Provided: Yes Physical Exam Vital Signs: Vital Signs: Last Vital Signs Temp 97.5 F 05/04/21 14:12 Pulse 79 05/04/21 14:12 Resp 18 05/04/21 14:12 BP 150/75 H 05/04/21 14:12 Pulse Ox 95 05/04/21 14:12 Body Mass Index 38.7 Appearance: Alert. Oriented X3. Tearful Eyes: Pupils equal, round and reactive to light. ENT: Pharynx normal. Neck: Normal inspection. Neck supple. CVS: Normal heart rate and rhythm. Pulses normal. Respiratory: No respiratory distress. Breath sounds normal. Abdomen: Soft and nontender. +BS x4 Skin: Skin warm and dry. Normal skin color. Normal skin turgor. No rashes. Extremities: No lower extremity edema. Neuro/psych: Oriented X 3. Nonfocal, depressed with suicidal thoughts. no hallucinations or delusions. flat affect Neuro: Cranial nerves: Yes Normal hearing present Course Course Course Narrative: 70 y/o male presenting with recurrent SI and depression after his left him. He is tearful on arrival reporting he does not want to live anymore, that he has nothing to live for. Will have crisis team see him. Reevaluation(s) Reevaluation #1: Labs show baseline CKD with BUN/Cr 20/2.00 from , stable. Utox +cocaine. At this time he is medically cleared for BHN evaluation. Physician observation started at 3:23pm. Patient placed in physician observation because patient is awaiting BHN evaluation for the possible need of inpatient psych admission. At the time observation was started patient's vital signs were stable. Patient is alert and oriented. Neuro exam is non-focal. CV: RRR and lungs are clear. Will continue to monitor. [facility] - Psych Lab Data Result diagrams: 05/04/21 14:51 05/04/21 14:51 Labs: Lab Results 05/04/21 05/04/21 05/04/21 Range/Units 14:35 14:35 14:51 WBC 6.2 (4.8-10.8) X10*3/uL RBC 3.79 L (4.60-5.80) X10*6/uL Hgb 10.0 L (14.0-18.0) g/dl Hct 31.4 L (42-52) % MCV 82.8 (80-98) fL MCH 26.4 L (27.0-33.0) pg MCHC 31.8 (31.0-36.0) g/dl RDW 15.4 (11.0-16.0) % Plt Count 223 (160-400) X10*3/uL MPV 9.1 L (9.4-12.4) fL Immature Gran % (Auto) 0.3 (0.0-0.4) % Neut % (Auto) 75.9 H (45-73) % Lymph % (Auto) 16.5 L (20-40) % [place] % (Auto) 5.6 (2-11) % Eos % (Auto) 1.5 (0-4) % Baso % (Auto) 0.2 (0-2) % Lymph # (Auto) 1.0 L (1.2-4.9) X10*3/uL [place] # (Auto) 0.4 (0.1-1.2) X10*3/uL Eos # (Auto) 0.1 (0.0-0.4) X10*3/uL Baso # (Auto) 0.0 (0.0-0.2) X10*3/uL Abs Immat Gran (auto) 0.02 (0.00-0.03) X10*3/uL Absolute Neuts (auto) 4.7 (2.0-8.3) X10*3/uL Absolute Nucleated RBC 0.000 (0.0-0.012) X10*3/uL Nucleated RBC % (auto) 0.0 (0.0-0.2) /100WBC Sodium (135-145) mmol/L Potassium (3.3-5.1) mmol/L Chloride (96-108) mmol/L Carbon Dioxide (22-29) mmol/L Anion Gap (12-20) BUN (9-16) mg/dL Creatinine (0.5-1.4) mg/dL Estim Creat Clear Calc Estimated GFR Random Glucose (60-115) mg/dL Calcium (8.4-10.2) mg/dL Magnesium (1.6-2.6) mg/dL Total Bilirubin (0.0-1.0) mg/dL Direct Bilirubin (0.0-0.5) mg/dL AST (5-37) U/L ALT (0-40) U/L Alkaline Phosphatase (39-117) U/L Total Protein (6.5-8.0) g/dL Albumin (3.5-5.0) g/dL Urine Color YELLOW Urine Appearance CLEAR Urine pH 7.5 (5.0-8.0) Ur Specific [place] 1.015 (1.005-1.025) Urine Protein 2+ H (NEG-TRACE) MG/DL Urine Glucose (UA) NEG (NEG) MG/DL Urine Ketones NEG (NEG) MG/DL Urine Blood NEG (NEG) Urine Nitrite NEG (NEG) Ur Leukocyte Esterase NEG (NEG) Urine RBC 0-2 (0) /HPF Urine WBC 0-2 (0-4) /HPF Ur Squamous Epith Cells NONE /LPF Urine Bacteria TRACE /LPF Urine Opiates Screen Not Detected (Not Detect) Urine Fentanyl Screen Not Detected (Not Detect) Ur Barbiturates Screen Not Detected (Not Detect) Ur Phencyclidine Scrn Not Detected (Not Detect) Ur Amphetamines Screen Not Detected (Not Detect) U Benzodiazepines Scrn Not Detected (Not Detect) Urine Cocaine Screen POSITIVE H (Not Detect) U Marijuana (THC) Screen Not Detected (Not Detect) Ethyl Alcohol mg/dL COVID-19 ([facility]) (Negative) COVID-19 Clin Com 05/04/21 05/04/21 05/04/21 Range/Units 14:51 14:51 14:51 WBC (4.8-10.8) X10*3/uL RBC (4.60-5.80) X10*6/uL Hgb (14.0-18.0) g/dl Hct (42-52) % MCV (80-98) fL MCH (27.0-33.0) pg MCHC (31.0-36.0) g/dl RDW (11.0-16.0) % Plt Count (160-400) X10*3/uL MPV (9.4-12.4) fL Immature Gran % (Auto) (0.0-0.4) % Neut % (Auto) (45-73) % Lymph % (Auto) (20-40) % [place] % (Auto) (2-11) % Eos % (Auto) (0-4) % Baso % (Auto) (0-2) % Lymph # (Auto) (1.2-4.9) X10*3/uL [place] # (Auto) (0.1-1.2) X10*3/uL Eos # (Auto) (0.0-0.4) X10*3/uL Baso # (Auto) (0.0-0.2) X10*3/uL Abs Immat Gran (auto) (0.00-0.03) X10*3/uL Absolute Neuts (auto) (2.0-8.3) X10*3/uL Absolute Nucleated RBC (0.0-0.012) X10*3/uL Nucleated RBC % (auto) (0.0-0.2) /100WBC Sodium 139 (135-145) mmol/L Potassium 4.2 D (3.3-5.1) mmol/L Chloride 109 H (96-108) mmol/L Carbon Dioxide 21 L (22-29) mmol/L Anion Gap 13 (12-20) BUN 20 H (9-16) mg/dL Creatinine 2.00 H (0.5-1.4) mg/dL Estim Creat Clear Calc 42.2 Estimated GFR 33 Random Glucose 108 (60-115) mg/dL Calcium 8.4 (8.4-10.2) mg/dL Magnesium 2.2 (1.6-2.6) mg/dL Total Bilirubin 0.9 (0.0-1.0) mg/dL Direct Bilirubin 0.3 (0.0-0.5) mg/dL AST 20 (5-37) U/L ALT 16 (0-40) U/L Alkaline Phosphatase 107 (39-117) U/L Total Protein 6.9 (6.5-8.0) g/dL Albumin 3.7 (3.5-5.0) g/dL Urine Color Urine Appearance Urine pH (5.0-8.0) Ur Specific [place] (1.005-1.025) Urine Protein (NEG-TRACE) MG/DL Urine Glucose (UA) (NEG) MG/DL Urine Ketones (NEG) MG/DL Urine Blood (NEG) Urine Nitrite (NEG) Ur Leukocyte Esterase (NEG) Urine RBC (0) /HPF Urine WBC (0-4) /HPF Ur Squamous Epith Cells /LPF Urine Bacteria /LPF Urine Opiates Screen (Not Detect) Urine Fentanyl Screen (Not Detect) Ur Barbiturates Screen (Not Detect) Ur Phencyclidine Scrn (Not Detect) Ur Amphetamines Screen (Not Detect) U Benzodiazepines Scrn (Not Detect) Urine Cocaine Screen (Not Detect) U Marijuana (THC) Screen (Not Detect) Ethyl Alcohol < 10 mg/dL COVID-19 ([facility]) Negative (Negative) COVID-19 Clin Com See Note Discharge Plan Discharge Clinical Impression: Suicidal ideation Prescriptions: No Action (DME) blood sugar diagnostic Strip See Rx Instructions strip .ROUTE BID Qty: 50 RF: 11 furosemide 40 mg tablet 40 mg PO BID Qty: 20 RF: 0 amlodipine [Norvasc] 10 mg tablet 10 mg PO DAILY Qty: 30 RF: 0 hydroxyzine HCl 50 mg tablet 50 mg PO BID PRN (Reason: anxiety) Qty: 14 RF: 0 (DME) blood-glucose meter Misc See Rx Instructions ea PO BID Qty: 1 RF: 0 (DME) lancets Misc See Rx Instructions lancet .ROUTE BID Qty: 100 RF: 0 Eliquis 2.5 mg tablet 2.5 mg PO BID RF: 0 Tradjenta 5 mg tablet 5 mg PO DAILY RF: 0 hydroxyzine pamoate 50 mg capsule 50 mg PO BID PRN (Reason: Anxiety) RF: 0
[2021-05-04 14:12] VITALS: BP 150/75; BP 180/78; PULSE 100; PULSE 79; RESP 18; TEMP 36.4; O2SAT 95; O2SAT 97; BMI 38.7
[2021-05-04 14:44] LABS: Appearance Urine CLEAR; Color Urine YELLOW; Glucose Urine UA NEG (NEG); Leukocyte Esterase Urine NEG (NEG); Nitrite Urine NEG (NEG); PH 7.5 (5.0-8.0); Specific Gravity - Urine 1.015 (1.005-1.025); UACC Culture Trigger NO; Urine Blood NEG (NEG); Urine Ketones NEG (NEG); Urine Protein 2+ MG/DL (NEG-TRACE)
[2021-05-04 14:54] LABS: Amphetamine Screen Urine Not Detected (Not Detect); Barbiturates, Urine Not Detected (Not Detect); Benzodiazepines Screen Urine Not Detected (Not Detect); Cannabinoid Screen Urine Not Detected (Not Detect); Cocaine Screen Urine POSITIVE (Not Detect); Fentanyl, urine Not Detected (Not Detect); Opiate Screen Urine Not Detected (Not Detect); Phencyclidine Screen Urine Not Detected (Not Detect)
[2021-05-04 15:01] LABS: MANUAL DIFF FLAG NO
[2021-05-04 15:04] LABS: Basophils Percent Auto 0.2 % (0-2); Eosinophils Absolute Auto 0.1 X10*3/uL (0.0-0.4); Eosinophils Percent Auto 1.5 % (0-4); Hematocrit 31.4 % (42-52); Imm Gran Abs Auto 0.02 X10*3/uL (0.00-0.03); Imm Gran Pct Auto 0.3 % (0.0-0.4); Lymphocytes Percent Auto 16.5 % (20-40); Mean Corpuscular HGB Conc 31.8 g/dl (31.0-36.0); Mean Corpuscular Hemoglobin 26.4 pg (27.0-33.0); Mean Corpuscular Volume 82.8 fL (80-98); Mean Platelet Volume 9.1 fL (9.4-12.4); Monocytes Absolute Auto 0.4 X10*3/uL (0.1-1.2); Monocytes Percent Auto 5.6 % (2-11); Neutrophils Absolute Auto 4.7 X10*3/uL (2.0-8.3); Neutrophils Percent Auto 75.9 % (45-73); Platelet Count 223 X10*3/uL (160-400); Red Blood Count 3.79 X10*6/uL (4.60-5.80); Red Cell Distribution Width 15.4 % (11.0-16.0); White Blood Count 6.2 X10*3/uL (4.8-10.8)
[2021-05-04 15:06] LABS: Bacteria Urine TRACE /LPF; RBC Urine 0-2 /HPF (0); WBC Urine 0-2 /HPF (0-4)
[2021-05-04 15:18] LABS: Ethanol < 10 mg/dL
[2021-05-04 15:20] LABS: Alanine Aminotransferase 16 U/L (0-40); Albumin Level 3.7 g/dL (3.5-5.0); Alkaline Phosphatase 107 U/L (39-117); Anion Gap 13 (12-20); Aspartate Amino Transferase 20 U/L (5-37); Bilirubin Direct 0.3 mg/dL (0.0-0.5); Bilirubin Total 0.9 mg/dL (0.0-1.0); Blood Urea Nitrogen 20 mg/dL (9-16); Calcium 8.4 mg/dL (8.4-10.2); Carbon Dioxide 21 mmol/L (22-29); Chloride 109 mmol/L (96-108); Creatinine Clr Calc Pharmacy 42.2; Estimated Glomerular Filt Rate 33; Glucose Random 108 mg/dL (60-115); Magnesium 2.2 mg/dL (1.6-2.6); Potassium 4.2 mmol/L (3.3-5.1); Sodium 139 mmol/L (135-145); Total Protein 6.9 g/dL (6.5-8.0)
[2021-05-04 15:22] LABS: COVID-19 Test Negative (Negative); IDNOW Serial# 9DD0AD1C
[2021-05-04 20:06] VITALS: BP 147/72; PULSE 90; RESP 20; TEMP 36.8; O2SAT 96
[2021-05-04 20:14] LABS: Glucose, Whole Blood 165 mg/dL (60-115)
[2021-05-04] MEDS: Apixaban 2.5 MG TABLET PO (20:59)
[2021-05-04] MEDS: hydrOXYzine HCL 50 MG TABLET PO (20:59)
[2021-05-04 23:35] VITALS: BP 150/79; PULSE 80; RESP 16; TEMP 36.7; O2SAT 96
[2021-05-04] MEDS: LORazepam 1 MG TABLET 2 MG PO (23:42)
--- NOTE | 2021-05-04 23:54 | PC.NURSE ---
Patient milieu watching TV, behavior appropriate, tearful at time, patient has been sneezing intermittently patient thinks from cocaine, patient reported he needs something to help for sleep and racing thought, provider notified ordered Ativan 2 mg/administered as /pending effect, will continue to monitor.
--- NOTE | 2021-05-05 06:14 | PC.NURSE ---
Patient slept through the night, no distress observed/reported, behavior appropriate at tearful, mood depressed due to the fact that his left him, medication compliant, patient has been off his Sertraline for months but patient expressed his wish to resume it, patient referral to [facility] was confirmed by care team, no eta so far, will continue to monitor.
--- NOTE | 2021-05-05 07:07 | PC.NURSE ---
patient appears to remain asleep at beginning of shift, patient respirations even and unlabored, patient appears in no distress
[2021-05-05] MEDS: Apixaban 2.5 MG TABLET PO (08:55)
[2021-05-05] MEDS: hydrOXYzine HCL 50 MG TABLET PO (08:55)
[2021-05-05 09:01] VITALS: BP 170/83; PULSE 75; TEMP 36.6; O2SAT 95
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
== END 2021-05-05 14:06 | disposition home or self-care (01) ==
PROVIDERS: Physician Assistant; Emergency Provider Emergency Medicine
DX: F33.1 Major depressive disorder, recurrent, moderate (principal); R45.851 Suicidal ideations; Z79.899 Other long term (current) drug therapy; Z20.822 Contact with and (suspected) exposure to COVID-19; Z63.5 Disruption of family by separation and divorce
CPT/HCPCS: 36415; 80048; 80076; 80307; 81001; 82077; 82947; 83735; 85025; 87635; 99284

== ENCOUNTER 2021-05-23 19:04 | Emergency (ER) | payer MEDICARE, SELFPAY ==
--- NOTE | 2021-05-23 19:12 | ED_ITS ---
HPI - Psych General Chief Complaint: Anxiety Stated Complaint: Crisis Source: patient Mode of arrival: ambulatory Limitations: no limitations History of Present Illness HPI Narrative: 70-year-old male presents via EMS for evaluation for depression. Stated that he called N for an evaluation because he is depressed that his left him. He does not report any suicidal or homicidal ideations at this time. MD complaint: feels depressed Onset (ago): day(s) Duration: constant History of same: Yes Relieving factors: none Context: significant life stressor Associated psychiatric symptoms: depression Associated symptoms: denies other symptoms Treatments prior to arrival: none Related Data Home Medications Medication Instructions Recorded Confirmed blood-glucose meter #1 ea 05/14/20 04/30/21 lancets #100 ea 05/14/20 04/30/21 amlodipine 10 mg tablet 1 tab PO DAILY 05/04/21 05/04/21 apixaban 2.5 mg tablet (Eliquis) 1 tab PO BID 05/04/21 05/04/21 hydroxyzine HCl 50 mg tablet 1 tab PO BID 05/04/21 05/04/21 linagliptin 5 mg tablet (Tradjenta) 1 tab PO DAILY 05/04/21 05/04/21 Previous Rx's Medication Instructions Recorded blood sugar diagnostic #50 ea 01/24/21 Allergies Allergy/AdvReac Type Severity Reaction Status Date / Time No Known Allergies Allergy Verified 04/15/21 20:25 [No Known Allergies*] Review of Systems Review of Systems: Constitutional: No Fever, No Chills ENT/Mouth: No Ear Pain, No Nasal Congestion, No sore throat Eyes: No Eye Pain, No Swelling, No Redness Cardiovascular: No Chest Pain, No SOB Respiratory: No Cough, No Sputum, No Dyspnea Gastrointestinal: No Nausea, No Vomiting, No Diarrhea, No Hematochezia, No Melena Genitourinary: No Dysuria, No Urinary Frequency, No Hematuria Musculoskeletal: No Myalgias Skin: No Skin Lesions, No rash Neuro: No Weakness, No Numbness, No Paresthesias, No Dizziness, No Headache Psych: positive Anxiety, positive Depression, no SI/HI Heme/Lymph: No Lymphadenopathy Endocrine: No Polyuria, No Polydipsia Yes all other systems are reviewed and are negative [facility] Past Medical History Attestation statement: The following information was validated with the patient. Source: old records reviewed Medical History CKD (chronic kidney disease) Depression Diabetes Former smoker High cholesterol Hypertension Surgical History History of aneurysm History of shoulder surgery Family History Family History Father No problems noted. Mother Diabetes Hypertension Cancer Son No problems noted. Son No problems noted. Son No problems noted. Daughter No problems noted. Daughter No problems noted. Social History Social History Alcohol intake: never Patient Tobacco Use Status: Tobacco use Unknown Advance Directives: No Advance Directives Information Provided: No Physical Exam Vital Signs: Vital Signs: Last Vital Signs Temp 98.6 F 05/23/21 19:18 Pulse 92 05/23/21 19:18 Resp 20 05/23/21 19:18 BP 224/96 H 05/23/21 19:23 Pulse Ox 97 05/23/21 19:18 Body Mass Index 28.2 Appearance: Alert. Oriented X3. No acute distress. Eyes: Pupils equal, round and reactive to light. Sclera nonicteric. ENT: Pharynx normal. Moist mucous membranes. Neck: Normal inspection. Neck supple. CVS: Normal heart rate and rhythm. Pulses normal. Respiratory: No respiratory distress. Breath sounds normal. Abdomen: Soft and nontender. Skin: Skin warm and dry. Normal skin color. Normal skin turgor. Extremities: No lower extremity edema. Gait well balanced well coordinated. Neuro: No motor deficit. No sensory deficit. Cranial nerves 2-12 intact. Course Course Course Narrative: 70-year-old male presents for psychiatric evaluation for depression. His left him and he is feeling depressed and did not want to be left alone tonight. Will order crisis consult. H&H 10.8/33.5 consistent with prior values dating back to August of 2019. Creatinine 1.98, consistent with prior values. 10:42 p.m. care team consult complete. Patient is not suicidal or homicidal and would like to be discharged home. Patient will follow-up with outpatient psychi atry on his own regard. Patient verbalized understanding of and agrees to plan of care discharge home. MDM - Psych Differential Diagnosis Differential diagnosis: Likely depression, acute anxiety and mood disorder Medical Records Attestation: I reviewed the patient's medical records. Lab Data Attestation: I reviewed the patient's lab results. Result diagrams: 05/23/21 20:37 05/23/21 20:37 Labs: Lab Results 05/23/21 05/23/21 Range/Units 20:37 20:37 WBC 6.2 (4.8-10.8) X10*3/uL RBC 4.19 L (4.60-5.80) X10*6/uL Hgb 10.8 L (14.0-18.0) g/dl Hct 33.5 L (42-52) % MCV 80.0 (80-98) fL MCH 25.8 L (27.0-33.0) pg MCHC 32.2 (31.0-36.0) g/dl RDW 14.2 (11.0-16.0) % Plt Count 218 (160-400) X10*3/uL MPV 8.7 L (9.4-12.4) fL Immature Gran % (Auto) 0.2 (0.0-0.4) % Neut % (Auto) 62.6 (45-73) % Lymph % (Auto) 25.8 (20-40) % [place] % (Auto) 9.1 (2-11) % Eos % (Auto) 2.1 (0-4) % Baso % (Auto) 0.2 (0-2) % Lymph # (Auto) 1.6 (1.2-4.9) X10*3/uL [place] # (Auto) 0.6 (0.1-1.2) X10*3/uL Eos # (Auto) 0.1 (0.0-0.4) X10*3/uL Baso # (Auto) 0.0 (0.0-0.2) X10*3/uL Abs Immat Gran (auto) 0.01 (0.00-0.03) X10*3/uL Absolute Neuts (auto) 3.9 (2.0-8.3) X10*3/uL Absolute Nucleated RBC 0.000 (0.0-0.012) X10*3/uL Nucleated RBC % (auto) 0.0 (0.0-0.2) /100WBC Sodium 144 (135-145) mmol/L Potassium 4.0 (3.3-5.1) mmol/L Chloride 109 H (96-108) mmol/L Carbon Dioxide 28 (22-29) mmol/L Anion Gap 11 L (12-20) BUN 31 H D (9-16) mg/dL Creatinine 1.98 H (0.5-1.4) mg/dL Estim Creat Clear Calc 36.5 Estimated GFR 34 Random Glucose 87 (60-115) mg/dL Calcium 8.6 (8.4-10.2) mg/dL Discharge Plan Discharge Clinical Impression: Acute anxiety Depression Qualifiers: Depression Type: reactive depression Qualified Code(s): F32.9 - Major depress windy disorder, single episode, unspecified Patient Disposition: Home, Self-Care Instructions: Depression (ED), Anxiety (ED) Additional Instructions: Please follow-up with outpatient psychiatry as needed. Thank you for choosing this emergency department for evaluation. Please follo w-up with primary care physician as needed. Return to the emergency department for any new, concerning, or worsening symptoms. Prescriptions: No Action (DME) blood sugar diagnostic Strip See Rx Instructions strip .ROUTE BID Qty: 50 RF: 11 hydroxyzine HCl 50 mg tablet 1 tab PO BID RF: 0 amlodipine 10 mg tablet 1 tab PO DAILY RF: 0 Eliquis 2.5 mg tablet 1 tab PO BID RF: 0 Tradjenta 5 mg tablet 1 tab PO DAILY RF: 0 (DME) blood-glucose meter Misc See Rx Instructions ea PO BID Qty: 1 RF: 0 (DME) lancets Misc See Rx Instructions lancet .ROUTE BID Qty: 100 RF: 0
[2021-05-23 19:18] VITALS: BP 224/96; PULSE 92; RESP 20; TEMP 37; O2SAT 97
[2021-05-23 19:23] VITALS: BP 224/96
[2021-05-23 19:27] VITALS: BMI 28.2
[2021-05-23 20:44] LABS: MANUAL DIFF FLAG NO
[2021-05-23 20:45] LABS: Basophils Percent Auto 0.2 % (0-2); Eosinophils Absolute Auto 0.1 X10*3/uL (0.0-0.4); Eosinophils Percent Auto 2.1 % (0-4); Hematocrit 33.5 % (42-52); Hemoglobin 10.8 g/dl (14.0-18.0); Imm Gran Abs Auto 0.01 X10*3/uL (0.00-0.03); Imm Gran Pct Auto 0.2 % (0.0-0.4); Lymphocytes Absolute Auto 1.6 X10*3/uL (1.2-4.9); Lymphocytes Percent Auto 25.8 % (20-40); Mean Corpuscular HGB Conc 32.2 g/dl (31.0-36.0); Mean Corpuscular Hemoglobin 25.8 pg (27.0-33.0); Mean Platelet Volume 8.7 fL (9.4-12.4); Monocytes Absolute Auto 0.6 X10*3/uL (0.1-1.2); Monocytes Percent Auto 9.1 % (2-11); Neutrophils Absolute Auto 3.9 X10*3/uL (2.0-8.3); Neutrophils Percent Auto 62.6 % (45-73); Platelet Count 218 X10*3/uL (160-400); Red Blood Count 4.19 X10*6/uL (4.60-5.80); Red Cell Distribution Width 14.2 % (11.0-16.0); White Blood Count 6.2 X10*3/uL (4.8-10.8)
[2021-05-23 20:58] LABS: Anion Gap 11 (12-20); Blood Urea Nitrogen 31 mg/dL (9-16); Calcium 8.6 mg/dL (8.4-10.2); Carbon Dioxide 28 mmol/L (22-29); Chloride 109 mmol/L (96-108); Creatinine Clr Calc Pharmacy 36.5; Estimated Glomerular Filt Rate 34; Glucose Random 87 mg/dL (60-115); Sodium 144 mmol/L (135-145)
== END 2021-05-23 23:05 | disposition home or self-care (01) ==
PROVIDERS: Nurse Practitioner Family; Emergency Provider Internal Medicine
DX: F32.9 Major depressive disorder, single episode, unspecified (principal); F41.9 Anxiety disorder, unspecified; I12.9 Hypertensive chronic kidney disease with stage 1 through stage 4 chronic kidney disease, or unspecified chronic kidney disease; E11.22 Type 2 diabetes mellitus with diabetic chronic kidney disease; N18.9 Chronic kidney disease, unspecified
CPT/HCPCS: 36415; 80048; 85025; 99283

== ENCOUNTER 2021-05-26 23:08 | Emergency (ER) | payer MEDICARE, SELFPAY ==
[2021-05-26 23:23] VITALS: RESP 20; BMI 25.8
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
--- NOTE | 2021-05-27 00:01 | ED_ITS ---
HPI - Anxiety General Chief Complaint: Anxiety Stated Complaint: ANXIETY Time Seen by Provider: 05/26/21 23:33 Source: patient Mode of arrival: ambulatory Limitations: no limitations History of Present Illness HPI narrative: Patient presents to ED for anxiety. Patient states his anxiety started acting up. Patient states usually when he has anxiety he has his usual awkward tics and snoring sound which is presenting with. Patient denies any chest pain, shortness of breath, suicidal or homicidal ideation. Patient states his left them and refuse to come back home. Related Data Home Medications Medication Instructions Recorded Confirmed blood-glucose meter #1 ea 05/14/20 04/30/21 lancets #100 ea 05/14/20 04/30/21 amlodipine 10 mg tablet 1 tab PO DAILY 05/04/21 05/04/21 apixaban 2.5 mg tablet (Eliquis) 1 tab PO BID 05/04/21 05/04/21 hydroxyzine HCl 50 mg tablet 1 tab PO BID 05/04/21 05/04/21 linagliptin 5 mg tablet (Tradjenta) 1 tab PO DAILY 05/04/21 05/04/21 Previous Rx's Medication Instructions Recorded blood sugar diagnostic #50 ea 01/24/21 hydroxyzine HCl 25 mg tablet 25 mg PO TID PRN #21 tab 05/27/21 Allergies Allergy/AdvReac Type Severity Reaction Status Date / Time No Known Allergies Allergy Verified 04/15/21 20:25 [No Known Allergies*] Review of Systems Constitutional: Constitutional: Reports as per HPI and Reports no additional constitutional complaints Eyes: Eyes: Reports as per HPI and Reports no additional eye complaints ENT: Reports system reviewed and no additional complaints, except as documented and Reports as per HPI Cardiovascular: Cardiovascular: Reports as per HPI and Reports no additional cardiovascular complaints Respiratory: Respiratory: Reports as per HPI and Reports no additional respiratory complaints Gastrointestinal: Gastrointestinal: Reports as per HPI and Reports no additional gastrointestinal complaints Genitourinary: Genitourinary: Reports no additional male genitourinary complaints and Reports as per HPI Musculoskeletal: Musculoskeletal: Reports no additional musculoskeletal complaints and Reports as per HPI Integumentary/Breasts: Skin/Breast: Reports system reviewed and no additional complaints, except as docu Neurologic: Reports system reviewed and no additional complaints, except as documented and Reports as per HPI Psychiatric: Psychiatric: Reports no additional psychiatric complaints, Reports as per HPI and Reports anxiety Endocrine: Endocrine: Reports no additional endocrine complaints and Reports as per HPI [facility] Past Medical History Medical History CKD (chronic kidney disease) Depression Diabetes Former smoker High cholesterol Hypertension Surgical History History of aneurysm History of shoulder surgery Family History Family History Father No problems noted. Mother Diabetes Hypertension Cancer Son No problems noted. Son No problems noted. Son No problems noted. Daughter No problems noted. Daughter No problems noted. Social History Social History Alcohol intake: never Patient Tobacco Use Status: Tobacco use Unknown Advance Directives: No Advance Directives Information Provided: No Physical Exam Vital Signs: Vital Signs: Last Vital Signs Temp 98.2 F 05/27/21 00:07 Pulse 75 05/27/21 00:07 Resp 20 05/26/21 23:23 BP 153/78 H 05/27/21 00:07 Pulse Ox 96 05/27/21 00:07 Body Mass Index 25.8 Const: General: cooperative, healthy appearing and comfortable Orientation/consciousness: patient oriented x3 HENMT: Head: Yes normal to inspection, Yes No palpable skull fracture present, Yes normocephalic, Yes atraumatic and No abrasion Eyes: General: appearance normal, both eyes and all related structures Neck: Neck: Yes normal visual inspection, Yes full ROM, Yes no lymphadenopathy, Yes no meningeal signs, Yes trachea midline, Yes supple and No tender Chest: Chest palpation & inspection: normal inspection of the chest and normal palpation of entire chest wall Resp: Effort & Inspection: normal respiratory effort and able to speak in complete sentences Auscultation: clear to auscultation bilaterally Cardio: Jugular venous distension: no JVD Heart sounds: S1 normal heart sound present and S2 normal heart sound present GI: Inspection: Yes normal to inspection, No abdominal wall ecchymosis, No Abdominal wall edema, No distended and No incision Palpation (GI): Soft to palpation, not firm, nontender, no guarding and not rigid : General: No CVA tenderness and Yes no CVA tenderness Back/Spine/Pelvis: Back: no CVA tenderness, No CVA tenderness and No back tenderness Skin: General skin exam: no rashes or lesions noted and elasticity normal Neuro: General: patient oriented x3, gait normal and no meningeal signs Cranial nerves: Yes CN's II-XII intact bilaterally Extrem: General: Yes normal to inspection and Yes full ROM Psych: Appearance: grossly normal, well kempt and not disheveled Course Course Course Narrative: Patient vital signs are stable. Patient is not in any distress. No medical evaluation needed. Patient states this is anxiety reaction of awkwards tics and snoring is his baselin.e Patient is alone so would not give Ativan. Will give Atarax. Reevaluation(s) Reevaluation #1: Patient does not want BHN evaluation or care team evaluation. Patient denies any suicidal homicide ideation. Patient discharged with Atarax. Time: 01:56 Discharge Plan Discharge Clinical Impression: Acute anxiety Patient Disposition: Home, Self-Care Instructions: Anxiety (ED) Additional Instructions: Return to the ED for any chest pain, shortness of breath, abdominal pain, nausea, vomiting, fever, chills, pleuritic chest pain, paralysis of extremities, facial droop, or any other concerning symptoms. Please follow-up with primary care and therapist Prescriptions: New hydroxyzine HCl 25 mg tablet 25 mg PO TID PRN (Reason: anxiety) Qty: 21 RF: 0 No Action (DME) blood sugar diagnostic Strip See Rx Instructions strip .ROUTE BID Qty: 50 RF: 11 hydroxyzine HCl 50 mg tablet 1 tab PO BID RF: 0 amlodipine 10 mg tablet 1 tab PO DAILY RF: 0 Eliquis 2.5 mg tablet 1 tab PO BID RF: 0 Tradjenta 5 mg tablet 1 tab PO DAILY RF: 0 (DME) blood-glucose meter Misc See Rx Instructions ea PO BID Qty: 1 RF: 0 (DME) lancets Misc See Rx Instructions lancet .ROUTE BID Qty: 100 RF: 0 Interventions: ED Discharge Assessment Last Done: 05/27/21 00:41 Print Language: [place] Citizen
[2021-05-27 00:07] VITALS: BP 153/78; PULSE 75; TEMP 36.8; O2SAT 96
[2021-05-27] MEDS: hydrOXYzine HCL 50 MG TABLET PO (00:17)
--- NOTE | 2021-05-27 00:41 | PC.NURSE ---
RN CALLED TO PTS BEDSIDE, PT STATES ITS YOUR RESPONSIBILITY TO FIND ME A RIDE HOME, YOU NEED TO GET ME HOME PT IS CURRENTLY A/O X 4, SPEAKS IN FULL CLEAR SENTENCES, PT IS CLEARED FOR D/C AT THIS TIME. IT WAS OFFERED TO THE PATIENT TO HAVE A SEAT IN THE WAITING ROOM AND HE CAN TAKE THE HOSPITAL SHUTTLE W/A VOUCHER IN THE MORNING. PT STATES I AM WALKING HOME, AND IF SOMETHING HAPPENS TO ME I AM GOING TO LUDIN THIS HOSPITAL AND IT WILL BE YOUR FAULT . PT WAS AGAIN OFFERED A VOUCHER FOR THE HOSPITAL SHUTTLE BUT DECLINED
== END 2021-05-27 00:41 | disposition home or self-care (01) ==
PROVIDERS: Emergency Provider Emergency Medicine
DX: F41.9 Anxiety disorder, unspecified (principal); I12.9 Hypertensive chronic kidney disease with stage 1 through stage 4 chronic kidney disease, or unspecified chronic kidney disease; E11.22 Type 2 diabetes mellitus with diabetic chronic kidney disease; N18.9 Chronic kidney disease, unspecified
CPT/HCPCS: 99283

== ENCOUNTER 2021-07-27 09:46 | Outpatient (REF) | payer MEDICARE, MEDICAID, SELFPAY ==
--- NOTE | ~2021-07-27 | XR_ITS ---
EXAMINATION: XR CHEST CLINICAL INFORMATION: Chronic systolic heart failure. COMPARISON: Chest radiograph done on 04/01/2021. Chest radiograph done on 08/23/2019. TECHNIQUE: 2 views of the chest were obtained. FINDINGS: The cardiomediastinal silhouette is within normal limit. Both lung duke are symmetrically expanded and appear clear. Mild pulmonary venous congestion is noted. There is a circumscribed ovoid mass identified at the left suprahilar region, measures approximately 1.5 cm at its maximum dimension, not optimally characterized on the frontal projection however, on the lateral projection appears to be along the anterior skin surface may represent a skin lesion. Follow-up repeat imaging following placement of a skin marker if any cutaneous lesion is present in this region is recommended. XR/XR chest 2V IMPRESSION: 1. Mild pulmonary venous congestion, unchanged since the baseline study dated 08/23/2019. 2. Approximately 1.5 cm circumscribed mass seen projecting at left suprahilar region, appear to be located within the anterior superior skin surface on the lateral projection. However, this needs to be further confirmed with a follow-up repeat imaging following placement of a skin marker if any cutaneous lesion is present in this region. Otherwise, follow-up CT scan would be indicated for further clarification.
== END 2021-07-27 09:47 | disposition home or self-care (01) ==
LOC: HO.XRAY 09:46
PROVIDERS: Absent Provider Registered Nurse Community Health; PCP Registered Nurse Community Health; Visit Provider Emergency Medicine
DX: I50.22 Chronic systolic (congestive) heart failure (principal)
CPT/HCPCS: 71046

== ENCOUNTER 2021-09-21 11:45 | Outpatient (REF) | payer MEDICARE, MEDICAID, SELFPAY ==
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
--- NOTE | ~2021-09-21 | XR_ITS ---
EXAMINATION: XR WRIST, LEFT CLINICAL INFORMATION: Left wrist pain status post injury. COMPARISON: None TECHNIQUE: PA, lateral, and oblique views of the left wrist. FINDINGS: Mild first carpometacarpal, triscaphe and distal radial ulnar degenerative joint changes are seen. There is no acute fracture or dislocation. The carpal bones are normally aligned. The distal radius and ulna are intact. The soft tissues are unremarkable. XR/XR wrist LT 2V IMPRESSION: Mild left wrist degenerative joint changes most consistent with osteoarthritis. No acute abnormality.
--- NOTE | ~2021-09-21 | XR_ITS ---
EXAMINATION: XR CERVICAL SPINE CLINICAL INFORMATION: Neck pain status post injury. COMPARISON: None TECHNIQUE: 6 views of the cervical spine, inclusive of flexion and extension views, were obtained. FINDINGS: Prominent anterior osteophyte formation is seen from C4-C5 to C6-C7. Mild anterior osteophyte formation is seen at C2-C3 and C3-C4. The disc spaces are unremarkable. The vertebral bodies are intact. The odontoid and spinous processes are intact. The neural foramina demonstrate mild bilateral narrowing. The facet joints are unremarkable. The soft tissues are unremarkable. XR/XR cervical spine min 6V IMPRESSION: Multilevel degenerative changes as detailed above without acute abnormality.
--- NOTE | ~2021-09-21 | XR_ITS ---
EXAMINATION: XR FINGER, LEFT CLINICAL INFORMATION: Left thumb injury with pain. COMPARISON: None TECHNIQUE: Three views of the left hand first digit. FINDINGS: Deformity seen along the proximal/volar base of the distal phalanx of the first digit. Mild degenerative spurring is seen at this level as well. The joint space shows mild degenerative changes. Mild first metacarpophalangeal and carpometacarpal degenerative joint changes are seen as well. The soft tissues are unremarkable. There is no radiopaque body. XR/XR finger LT min 2V IMPRESSION: 1. Deformity along the proximal/volar base of the distal phalanx of the first digit is of indeterminate age, but the overall appearance is not acute. This could represent old fracture and pelvis. Degenerative spurring. Correlate with physical exam and trauma history. 2. Mild degenerative changes detailed above most consistent with osteoarthritis.
== END 2021-09-21 11:46 | disposition home or self-care (01) ==
LOC: HO.XRAY 11:45
PROVIDERS: Absent Provider Registered Nurse Community Health; PCP Registered Nurse Community Health; Visit Provider Emergency Medicine
DX: S19.9XXD Unspecified injury of neck, subsequent encounter (principal); S49.92XD Unspecified injury of left shoulder and upper arm, subsequent encounter; S69.92XD Unspecified injury of left wrist, hand and finger(s), subsequent encounter
CPT/HCPCS: 72052; 73030; 73100; 73140

== ENCOUNTER 2021-12-29 06:32 | Outpatient (REF) | payer MEDICARE, MEDICAID, SELFPAY ==
[2021-12-29 07:24] LABS: Hematocrit 32.9 % (42.0-52.0); Hemoglobin 10.3 g/dl (14.0-18.0); Mean Corpuscular HGB Conc 31.3 g/dl (31.0-36.0); Mean Corpuscular Volume 76.7 fL (80.0-98.0); Mean Platelet Volume 9.2 fL (9.4-12.4); Platelet Count 267 X10*3/uL (160-400); Red Blood Count 4.29 X10*6/uL (4.60-5.80); Red Cell Distribution Width 15.3 % (11.0-16.0); White Blood Count 6.3 X10*3/uL (4.8-10.8)
[2021-12-29 07:40] LABS: Albumin Level 3.8 g/dL (3.5-5.0); Anion Gap 12 (12-20); Blood Urea Nitrogen 44 mg/dL (9-16); Carbon Dioxide 30 mmol/L (22-29); Chloride 101 mmol/L (96-108); Estimated Glomerular Filt Rate 31; Magnesium 2.2 mg/dL (1.6-2.6); Phosphorus 4.9 mg/dL (2.7-4.5); Potassium 3.1 mmol/L (3.3-5.1); Sodium 140 mmol/L (135-145)
[2021-12-29 08:07] LABS: Appearance Urine CLEAR; Color Urine STRAW; Glucose Urine UA NEG (NEG); Leukocyte Esterase Urine NEG (NEG); Nitrite Urine NEG (NEG); Urine Blood TRACE (NEG); Urine Ketones NEG (NEG); Urine Protein 2+ MG/DL (NEG-TRACE)
[2021-12-29 08:09] LABS: Vitamin D 25-OH Total 25.9 ng/mL (>30)
[2021-12-29 08:22] LABS: RBC Urine 0-2 /HPF (0); WBC Urine 0-2 /HPF (0-4)
[2021-12-29 08:45] LABS: Creatinine Urine 34.37 mg/dL; Microalbum/Creatinine Ratio Ur 1262.7 ug/mg cr; Protein/Creatinine Ratio, Ur 2.01 (<0.2); Total Protein Urine Random 69 mg/dL (<12)
[2021-12-30 13:19] LABS: Calcium (PTHI) 8.7 mg/dL (8.6-10.3); PTHI 547 pg/mL (16-77)
== END 2021-12-29 06:33 | disposition home or self-care (01) ==
LOC: HO.LAB 06:32
PROVIDERS: PCP Registered Nurse Community Health; Visit Provider Internal Medicine Nephrology
DX: I12.9 Hypertensive chronic kidney disease with stage 1 through stage 4 chronic kidney disease, or unspecified chronic kidney disease (principal); N18.30 Chronic kidney disease, stage 3 unspecified; E11.22 Type 2 diabetes mellitus with diabetic chronic kidney disease
CPT/HCPCS: 36415; 80051; 81001; 82040; 82043; 82306; 82310; 82565; 83735; 83970; 84100; 84156; 84520; 85027; 87086

== ENCOUNTER 2022-03-26 09:22 | Emergency (ER) | payer MEDICARE, MEDICAID, SELFPAY ==
--- NOTE | ~2022-03-26 | CT_ITS ---
EXAMINATION: CT CHEST WITHOUT CONTRAST CLINICAL INFORMATION: Left upper lobe mass COMPARISON: Previous chest x-ray from earlier the same day TECHNIQUE: Multidetector volumetric CT imaging of the chest was done. Axial MIP volume rendering provided. Sagittal and coronal reformatted images were obtained. This CT examination was performed using dose optimization techniques as appropriate, variously including the following: *Automated exposure control *Adjustment of mA and/or kV according to patient size (this includes techniques or standardized protocols for targeted exams where dose is matched to indication/reason for exam; i.e. extremities or head) *Use of iterative reconstruction technique DLP: 316 mGy-cm FINDINGS: LUNGS: There is a 3 mm calcified left upper lobe nodule axial image 171 series 5. There is a 2 mm calcified left upper lobe nodule axial image 180 series 5. There is a 2 mm calcified right middle lobe nodule axial image 263 series 5. There is a 3 mm calcified left lower lobe nodule axial image 300 series 5. There is a 2 mm calcified right lower lobe nodule axial image 313 series 5. No corresponding CT finding to match chest x-ray abnormality is seen. This may corresponds to a mole on the skin axial image 7 series 3. MEDIASTINUM: The heart size is normal. There is no pericardial effusion. There is mild coronary artery calcification. There are small mediastinal lymph nodes. No enlarged lymph nodes are seen. PLEURA: There is no pleural effusion. No pleural mass or thickening. AXILLA: No lymphadenopathy. UPPER ABDOMEN: There is a gallstone in the gallbladder. OSSEOUS STRUCTURES: There are degenerative changes of the spine. CT/CT chest wo con IMPRESSION: Small calcified pulmonary nodules probably representing calcified granulomas. Largest nodule measures 3 mm. Chest x-ray finding likely corresponds to a mole on the skin. Mild coronary artery calcification. Gallstone. Fleischner guidelines were followed.
--- NOTE | ~2022-03-26 | XR_ITS ---
EXAMINATION: XR CHEST CLINICAL INFORMATION: Chest pain. COMPARISON: Chest done on 07/27/2021. TECHNIQUE: Frontal view of the chest was obtained. FINDINGS: Circumscribed 1.7 cm mass is identified projecting at left upper lung zone, shows interval increased by 0.2 cm since 07/27/2021. Nonemergent follow-up CT of the chest is recommended for further full detail evaluation. Otherwise both lungs are clear. The cardiomediastinal silhouette is within normal limit. No pleural effusion or pneumothorax. XR/XR chest 1V IMPRESSION: Circumscribed 1.7 cm mass projecting at left upper lung field, shows interval increased by 0.2 cm since 07/27/2021, is not optimally localized. Nonemergent follow-up CT scan of the chest is recommended for further full detail evaluation.
--- NOTE | 2022-03-26 09:26 | ECG_ITS ---
Test Reason : CP Blood Pressure : / mmHG Vent. Rate : 070 BPM Atrial Rate : 000 BPM P-R Int : 000 ms QRS Dur : 108 ms QT Int : 432 ms P-R-T Axes : 000 008 153 degrees QTc Int : 466 ms Atrial fibrillation with a competing junctional pacemaker Low voltage QRS Incomplete left bundle branch block ST & T wave abnormality, consider lateral ischemia Prolonged QT Abnormal ECG When compared with ECG of 01-APR-2021 16:19, No significant change was found Referred By: Generic ED Physician Electronically Signed By:HAN WHITE
--- NOTE | 2022-03-26 09:30 | ED_ITS ---
HPI - Chest Pain General Chief Complaint: Chest Pain Stated Complaint: chest pain Time Seen by Provider: 03/26/22 09:30 Source: patient and EMS Mode of arrival: EMS Limitations: no limitations History of Present Illness HPI narrative: 71-year-old male with history of diabetes on insulin, HTN, HLD, CKD, depression, former smoker, AFib on Eliquis, CHF with EF 35%, TIA who presents to the ER from home via EMS for evaluation of sudden onset 05/22 substernal, nonradiating, sharp chest pain. Patient reports the pain started about 2 hours ago, it woke him up out of sleep. He took all of his morning medications and waited for the pain to go away but there was no improvement. He called 911. EMS gave the patient 81 mg of aspirin x4 and brought him to the emergency department. Patient denies any shortness of breath, nausea, diaphoresis. He denies any radiation of the pain. He denies any abdominal pain, fever, chills. He reports having history of similar chest pain in the past but it was ?a very long time ago. ? MD complaint: chest pain Pertinent past history: other (AFib, CHF) Onset (ago): hour(s) (2) Timing of current episode: constant Prior episodes: Yes Onset: during rest Pain location: substernal Pain radiation: none Severity: severe Pain scale (0-10): 10 Quality: sharp Relieving factors: nothing Exacerbating factors: nothing Treatment prior to arrival: aspirin Risk Factors Coronary artery disease risk factors: diabetes, smoking history, hyperlipidemia and hypertension Related Data Home Medications Medication Instructions Recorded Confirmed blood-glucose meter #1 ea 05/14/20 04/30/21 lancets #100 ea 05/14/20 04/30/21 amlodipine 10 mg tablet 1 tab PO DAILY 05/04/21 05/04/21 apixaban 2.5 mg tablet (Eliquis) 1 tab PO BID 05/04/21 05/04/21 hydroxyzine HCl 50 mg tablet 1 tab PO BID 05/04/21 05/04/21 linagliptin 5 mg tablet (Tradjenta) 1 tab PO DAILY 05/04/21 05/04/21 Previous Rx's Medication Instructions Recorded blood sugar diagnostic #50 ea 01/24/21 hydroxyzine HCl 25 mg tablet 25 mg PO TID PRN anxiety #21 tabs 05/27/21 Allergies Allergy/AdvReac Type Severity Reaction Status Date / Time No Known Allergies Allergy Verified 04/15/21 20:25 [No Known Allergies*] Review of Systems Review of Systems: Constitutional: No Fever, No Chills ENT/Mouth: No sore throat, No Rhinorrhea, No Swallowing Difficulty Eyes: No Eye Pain, No Swelling, No Redness Cardiovascular: +Chest Pain, No SOB, No Orthopnea, No Edema Respiratory: No Cough, No Sputum, No Wheezing, No dyspnea Gastrointestinal: No Nausea, No Vomiting, No Diarrhea, No abdominal Pain Genitourinary: No Dysuria, No Urinary Frequency, No Hematuria Musculoskeletal: No joint pain, No Myalgias Skin: No Skin Lesions, No rash Neuro: No Weakness, No Numbness, No Dizziness, No Headache Psych: +Anxiety/Panic, No Depression Heme/Lymph: No Bruising, No Lymphadenopathy Endocrine: No Polyuria, No Polydipsia PMFSH Past Medical History Medical History CKD (chronic kidney disease) Depression Diabetes Former smoker High cholesterol Hypertension Surgical History History of aneurysm History of shoulder surgery Family History Family History Father No problems noted. Mother Diabetes Hypertension Cancer Son No problems noted. Son No problems noted. Son No problems noted. Daughter No problems noted. Daughter No problems noted. Social History Social History Alcohol intake: never Patient Tobacco Use Status: Never used Tobacco Smoked in Last 30 Days: No Use of substances other than those prescribed or required for medical reasons: No Advance Directives: No Advance Directives Information Provided: Yes Physical Exam Vital Signs: Vital Signs: Last Vital Signs Temp 96.2 F L 03/26/22 09:31 Pulse 68 03/26/22 11:03 Resp 16 03/26/22 09:31 BP 158/78 H 03/26/22 11:03 Pulse Ox 99 03/26/22 09:31 O2 Del Method 03/26/22 09:31 BMI result Body Mass Index 34.4 Appearance: Alert. Oriented X3. No acute distress. Eyes: Pupils equal, round and reactive to light. ENT: Pharynx normal. Neck: Normal inspection. Neck supple. CVS: Irregularly irregular, normal rate in the 70s. Pulses normal. Anterior chest wall is nontender Respiratory: No respiratory distress. Breath sounds normal. Abdomen: Soft and nontender. +BS x4 Skin: Skin warm and dry. Normal skin color. Normal skin turgor. No rashes. Extremities: No lower extremity edema. Neuro: Oriented X 3. No motor deficit. No sensory deficit. Course Course Course Narrative: 71-year-old male with a history of HTN, HLD, AFib on Eliquis, DM on insulin, depression, former smoker, CHF, TIA who presents to the ER with acute onset of sharp, substernal, nonradiating chest pain that he quantifies as 10/10. He appears in no distress. He is hypertensive on arrival with blood pressure 188 systolic. His heart rates in the 70s, AFib, no ST segment elevations present. He was given aspirin via EMS. Given his cardiac history will plan to give a trial of sublingual nitro for concern of possible ACS. Troponin will be need to be repeated x2 given acute onset. Will repeat EKG if pain changes or worsens. Will monitor closely. Dispo pending results & improvement Reevaluation(s) Reevaluation #1: Improvement from 10/10 to 7/10 in his chest pain after 1st dose of sublingual n itro. He appears to be resting comfortably. Blood pressure remained stable. Will give another dose of sublingual nitro. Reevaluation #2: Patient is sleeping, resting comfortably. He reports his pain is significantly improved. His troponin initially was 21 which is around his baseline. BP is similar. No delta to be concern for acute coronary ischemia. His renal function is near his baseline. Of note his renal function has slowly been getti ng worse over the last year and a half. Chest x-ray reviewed, there is a round left upper lobe 1.5 cm mass with interval increase by 0.2 cm since 07/[address] scan of the chest has been ordered for further evaluation. He reports he was a former smoker for about 10 years but quit 45 years ago. Reevaluation #3: CT scan of the chest only showing small calcified nodules most likely granulomas. Mass noted to be external, on the skin. Results reviewed with patient. He is feeling well and would like to go home. Return precautions were discussed. Will give referral for Cardiology for further evaluation. He is stable for discharge home MDM - Chest Pain Medical Records Data Attestation: I reviewed the patient's medical records. Lab Data Attestation: I reviewed the patient's lab results. Result diagrams: 03/26/22 09:43 03/26/22 09:43 Labs: Lab Results 03/26/22 03/26/22 03/26/22 Range/Units 09:43 09:43 09:43 WBC 6.2 (4.8-10.8) X10*3/uL RBC 4.08 L (4.60-5.80) X10*6/uL Hgb 9.4 L (14.0-18.0) g/dl Hct 30.2 L (42.0-52.0) % MCV 74.0 L (80.0-98.0) fL MCH 23.0 L (27.0-33.0) pg MCHC 31.1 (31.0-36.0) g/dl RDW 15.3 (11.0-16.0) % Plt Count 253 (160-400) X10*3/uL MPV 8.5 L (9.4-12.4) fL Immature Gran % (Auto) 0.3 (0.0-0.4) % Neut % (Auto) 64.4 (45-73) % Lymph % (Auto) 24.1 (20-40) % [place] % (Auto) 8.9 (2-11) % Eos % (Auto) 2.1 (0-4) % Baso % (Auto) 0.2 (0-2) % Lymph # (Auto) 1.5 (1.2-4.9) X10*3/uL [place] # (Auto) 0.6 (0.1-1.2) X10*3/uL Eos # (Auto) 0.1 (0.0-0.4) X10*3/uL Baso # (Auto) 0.0 (0.0-0.2) X10*3/uL Abs Immat Gran (auto) 0.02 (0.00-0.03) X10*3/uL Absolute Neuts (auto) 4.0 (2.0-8.3) x10*3/uL Absolute Nucleated RBC 0.000 (0.0-0.012) X10*3/uL Nucleated RBC % (auto) 0.0 (0.0-0.2) /100WBC Sodium 141 (135-145) mmol/L Potassium 3.4 (3.3-5.1) mmol/L Chloride 105 (96-108) mmol/L Carbon Dioxide 25 (22-29) mmol/L Anion Gap 14 (12-20) BUN 37 H (9-16) mg/dL Creatinine 2.64 H (0.5-1.4) mg/dL Estim Creat Clear Calc 29.7 Estimated GFR 24 Random Glucose 115 (60-115) mg/dL Calcium 8.2 L D (8.4-10.2) mg/dL Magnesium 2.1 (1.6-2.6) mg/dL Total Bilirubin 0.4 (0.0-1.0) mg/dL Direct Bilirubin 0.2 (0.0-0.5) mg/dL AST 13 (5-37) U/L ALT 8 (0-40) U/L Alkaline Phosphatase 83 D (39-117) U/L Troponin I High Sens 21.8 (<3.5-35.0) ng/L B-Natriuretic Peptide 191 H (<100) pg/mL Total Protein 6.7 (6.5-8.0) g/dL Albumin 3.7 (3.5-5.0) g/dL COVID-19 ([facility]) (Negative) COVID-19 Clin Com 03/26/22 03/26/22 Range/Units 09:43 11:03 WBC (4.8-10.8) X10*3/uL RBC (4.60-5.80) X10*6/uL Hgb (14.0-18.0) g/dl Hct (42.0-52.0) % MCV (80.0-98.0) fL MCH (27.0-33.0) pg MCHC (31.0-36.0) g/dl RDW (11.0-16.0) % Plt Count (160-400) X10*3/uL MPV (9.4-12.4) fL Immature Gran % (Auto) (0.0-0.4) % Neut % (Auto) (45-73) % Lymph % (Auto) (20-40) % [place] % (Auto) (2-11) % Eos % (Auto) (0-4) % Baso % (Auto) (0-2) % Lymph # (Auto) (1.2-4.9) X10*3/uL [place] # (Auto) (0.1-1.2) X10*3/uL Eos # (Auto) (0.0-0.4) X10*3/uL Baso # (Auto) (0.0-0.2) X10*3/uL Abs Immat Gran (auto) (0.00-0.03) X10*3/uL Absolute Neuts (auto) (2.0-8.3) x10*3/uL Absolute Nucleated RBC (0.0-0.012) X10*3/uL Nucleated RBC % (auto) (0.0-0.2) /100WBC Sodium (135-145) mmol/L Potassium (3.3-5.1) mmol/L Chloride (96-108) mmol/L Carbon Dioxide (22-29) mmol/L Anion Gap (12-20) BUN (9-16) mg/dL Creatinine (0.5-1.4) mg/dL Estim Creat Clear Calc Estimated GFR Random Glucose (60-115) mg/dL Calcium (8.4-10.2) mg/dL Magnesium (1.6-2.6) mg/dL Total Bilirubin (0.0-1.0) mg/dL Direct Bilirubin (0.0-0.5) mg/dL AST (5-37) U/L ALT (0-40) U/L Alkaline Phosphatase (39-117) U/L Troponin I High Sens 22.4 (<3.5-35.0) ng/L B-Natriuretic Peptide (<100) pg/mL Total Protein (6.5-8.0) g/dL Albumin (3.5-5.0) g/dL COVID-19 ([facility]) Negative (Negative) COVID-19 Clin Com See Note ECG Data ECG #1: Attestation: I personally reviewed and interpreted this ECG as follows: ECG interpretation date: 03/26/22 ECG interpretation time: 09:42 Prior ECG tracings: available for review Interpretation: Atrial fibrillation, ventricular rate 70 beats per minute, ST and T-wave abnormality in V5 and V6 , unchanged from prior 03/2021 Critical Care Time Critical Care Time Critical Care Time: No Discharge Plan Discharge Clinical Impression: Chest pain Patient Disposition: Home, Self-Care Instructions: Chest Pain (DC) Additional Instructions: Your lab workup today was unremarkable. Your EKG did not show any evidence of heart attack. Your CT scan did not show any causes of your pain. Recommend following up with your primary care doctor. Also recommend following up with Cardiology for further evaluation. If you have any new or worsening pain call 911 or come back to the emergency room for further evaluation Prescriptions: No Action (DME) blood sugar diagnostic Strip See Rx Instructions .ROUTE BID Qty: 50 11RF Rx Instructions: Use 1 test strip once a day hydroxyzine HCl 50 mg tablet 1 tab PO BID amlodipine 10 mg tablet 1 tab PO DAILY Eliquis 2.5 mg tablet 1 tab PO BID Tradjenta 5 mg tablet 1 tab PO DAILY hydroxyzine HCl 25 mg tablet 25 mg PO TID PRN (Reason: anxiety) Qty: 21 0RF (DME) blood-glucose meter Misc See Rx Instructions PO BID Qty: 1 Rx Instructions: As directed (DME) lancets Misc See Rx Instructions .ROUTE BID Qty: 100 Rx Instructions: As directed Referrals: Osmani Chawla MD [Physician] - (chest pain) Interventions: ED Discharge Assessment Last Done: 03/26/22 14:52 Discharge Date/Time: 03/26/22 14:53 Print Language: Thai
[2022-03-26 09:31] VITALS: BP 188/90; PULSE 112; PULSE 65; RESP 16; TEMP 35.7; O2SAT 99; BMI 34.4
[2022-03-26] MEDS: Nitroglycerin 0.4 MG TAB.SUBL SUBLINGUAL ×2 (09:45→11:04)
[2022-03-26 09:47] LABS: MANUAL DIFF FLAG NO
[2022-03-26 09:50] LABS: Basophils Percent Auto 0.2 % (0-2); Eosinophils Absolute Auto 0.1 X10*3/uL (0.0-0.4); Eosinophils Percent Auto 2.1 % (0-4); Hematocrit 30.2 % (42.0-52.0); Hemoglobin 9.4 g/dl (14.0-18.0); Imm Gran Abs Auto 0.02 X10*3/uL (0.00-0.03); Imm Gran Pct Auto 0.3 % (0.0-0.4); Lymphocytes Absolute Auto 1.5 X10*3/uL (1.2-4.9); Lymphocytes Percent Auto 24.1 % (20-40); Mean Corpuscular HGB Conc 31.1 g/dl (31.0-36.0); Mean Platelet Volume 8.5 fL (9.4-12.4); Monocytes Absolute Auto 0.6 X10*3/uL (0.1-1.2); Monocytes Percent Auto 8.9 % (2-11); Neutrophils Percent Auto 64.4 % (45-73); Platelet Count 253 X10*3/uL (160-400); Red Blood Count 4.08 X10*6/uL (4.60-5.80); Red Cell Distribution Width 15.3 % (11.0-16.0); White Blood Count 6.2 X10*3/uL (4.8-10.8)
[2022-03-26 10:04] LABS: COVID-19 Test Negative (Negative); IDNOW Serial# 16C4AD1C
[2022-03-26 10:05] LABS: Alanine Aminotransferase 8 U/L (0-40); Albumin Level 3.7 g/dL (3.5-5.0); Alkaline Phosphatase 83 U/L (39-117); Anion Gap 14 (12-20); Aspartate Amino Transferase 13 U/L (5-37); Bilirubin Direct 0.2 mg/dL (0.0-0.5); Bilirubin Total 0.4 mg/dL (0.0-1.0); Blood Urea Nitrogen 37 mg/dL (9-16); Calcium 8.2 mg/dL (8.4-10.2); Carbon Dioxide 25 mmol/L (22-29); Chloride 105 mmol/L (96-108); Creatinine Clr Calc Pharmacy 29.7; Estimated Glomerular Filt Rate 24; Glucose Random 115 mg/dL (60-115); Magnesium 2.1 mg/dL (1.6-2.6); Potassium 3.4 mmol/L (3.3-5.1); Sodium 141 mmol/L (135-145); Total Protein 6.7 g/dL (6.5-8.0)
[2022-03-26 10:11] LABS: B Type Natriuretic Peptide 191 pg/mL (<100); Troponin-I High Sensitivity 21.8 ng/L (<3.5-35.0)
[2022-03-26 10:19] VITALS: BP 165/72; PULSE 58
[2022-03-26 11:03] VITALS: BP 158/78; PULSE 68
[2022-03-26] MEDS: guaiFEN/Codeine SF 200/20/10ML 10 ML LIQUID PO (11:34)
[2022-03-26] MEDS: LORazepam 1 MG TABLET PO (11:34)
[2022-03-26 11:35] LABS: Troponin-I High Sensitivity 22.4 ng/L (<3.5-35.0)
== END 2022-03-26 14:53 | disposition home or self-care (01) ==
PROVIDERS: Physician Assistant; Emergency Provider Student in an Organized Health Care Education/Training Program
DX: R07.89 Other chest pain (principal); R06.02 Shortness of breath; I10 Essential (primary) hypertension; E11.9 Type 2 diabetes mellitus without complications; Z20.822 Contact with and (suspected) exposure to COVID-19; Z79.4 Long term (current) use of insulin; Z79.899 Other long term (current) drug therapy; Z87.891 Personal history of nicotine dependence
CPT/HCPCS: 36415; 71045; 71250; 80048; 80076; 83735; 83880; 84484; 85025; 87635; 93005; 99284

== ENCOUNTER 2022-04-11 12:36 | Outpatient (REF) | payer MEDICARE, MEDICAID, SELFPAY ==
--- NOTE | ~2022-04-11 | XR_ITS ---
EXAMINATION: XR ELBOW, LEFT CLINICAL INFORMATION: Left elbow pain COMPARISON: None TECHNIQUE: AP, lateral, and oblique views of the left elbow. FINDINGS: A joint effusion is present. Degenerative changes are seen in the elbow with osteophytes arising from the olecranon and to a lesser extent the coronoid process. Lateral and medial osteophytes are seen arising from the distal humeral condyles. No definite fracture is seen. There is a large area of enthesopathy at the base of the ulna. XR/XR elbow LT min 3V IMPRESSION: Degenerative changes with elbow joint effusion. No acute fractures.
== END 2022-04-11 12:37 | disposition home or self-care (01) ==
LOC: HO.XRAY 12:36
PROVIDERS: PCP Registered Nurse; Visit Provider Emergency Medicine
DX: M25.422 Effusion, left elbow (principal)
CPT/HCPCS: 73080

== ENCOUNTER 2022-12-19 11:26 | Inpatient (IN) | payer OTHER, MEDICAID, SELFPAY ==
[2022-12-19] VITALS (7 sets, daily range): BP systolic 153–174; BP diastolic 53–75; PULSE 62–78; RESP 16–22; TEMP 35.9–36.9; O2SAT 92–96; BMI 32.2
--- NOTE | ~2022-12-19 | XR_ITS ---
EXAMINATION: XR CHEST CLINICAL INFORMATION: Shortness of breath COMPARISON: Previous chest x-ray most recent March 2022 TECHNIQUE: 2 views of the chest were obtained. FINDINGS: The cardiac silhouette is slightly enlarged. There is pulmonary venous redistribution, increased interstitial markings and small bilateral pleural effusions. Findings are suggestive of CHF. There are degenerative changes of the spine. Postsurgical change to the right distal clavicle. XR/XR chest 2V IMPRESSION: CHF.
--- NOTE | 2022-12-19 11:48 | ED_ITS ---
HPI - General Adult General Chief complaint: General Medical <VIRAJ Dorado - Last Filed: 12/20/22 06:59> Stated complaint: MALAISE,SOB <VIRAJ Dorado - Last Filed: 12/20/22 06:59> Time Seen by Provider: 12/19/22 11:48 <VIRAJ Dorado Last Filed: 12/20/22 06:59> Source: patient and EMS <VIRAJ Dorado Last Filed: 12/20/22 06:59> Mode of arrival: EMS <VIRAJ Dorado Last Filed: 12/20/22 06:59> Limitations: no limitations <VIRAJ Dorado Last Filed: 12/20/22 06:59> History of Present Illness HPI narrative: Patient is a 72 year old male with a PMH of Diabetes, High cholesterol, HTN, CKD, Atrial fibrillation, and depression. He was at his primary care provider this morning when he had a brief episode of dizziness and SOB. His primary care provider told him to come to the ED for evaluation. He is also having some leg edema which he states has been going on for a few days. He states his legs are not normally edematous. He states he is now feeling well and would like to leave. Patient denies any current dizziness, SOB, chest pain, headache, back pain and blood in his stool. <VIRAJ Dorado - Last Filed: 12/20/22 06:59> Relieving factors: rest <VIRAJ Dorado Last Filed: 12/20/22 06:59> Exacerbating factors: movement <VIRAJ Dorado Last Filed: 12/20/22 06:59> Related Data Home medications: Home Medications Medication Instructions Recorded Confirmed blood-glucose meter #1 ea 05/14/20 04/30/21 lancets #100 ea 05/14/20 04/30/21 amlodipine 10 mg tablet 10 mg PO DAILY 12/19/22 12/19/22 apixaban 2.5 mg tablet (Eliquis) 2.5 mg PO BID 12/19/22 12/19/22 atorvastatin 40 mg tablet 40 mg PO DAILY 12/19/22 12/19/22 calcitriol 0.25 mcg capsule 0.25 mcg PO Q2D 12/19/22 12/19/22 chlorthalidone 25 mg tablet 25 mg PO DAILY 12/19/22 12/19/22 cholecalciferol (vitamin D3) 50 50 mcg PO DAILY 12/19/22 12/19/22 mcg (2,000 unit) capsule (Vitamin D3) dapagliflozin 10 mg tablet 10 mg PO DAILY 12/19/22 12/19/22 (Farxiga) fluticasone propionate 50 1 spray intranasal DAILY 12/19/22 12/19/22 mcg/actuation nasal spray,suspension hydroxyzine HCl 25 mg tablet 25 mg PO BID PRN anxiety 12/19/22 12/19/22 lisinopril 40 mg tablet 40 mg PO DAILY 12/19/22 12/19/22 potassium chloride 10 mEq 10 meq PO DAILY 12/19/22 12/19/22 tablet,extended release Previous Rx's Medication Instructions Recorded blood sugar diagnostic #50 ea 01/24/21 <VIRAJ Dorado Last Filed: 12/20/22 06:59> Allergies/adverse reactions: Allergies Allergy/AdvReac Type Severity Reaction Status Date / Time No Known Allergies Allergy Verified 04/15/21 20:25 [No Known Allergies*] <VIRAJ Dorado Last Filed: 12/20/22 06:59> Review of Systems Constitutional: Constitutional: Reports no additional constitutional complaints, Denies chills, Denies fever(s) and Denies night sweats <VIRAJ Dorado Last Filed: 12/20/22 06:59> Eyes: Eyes: Reports no additional eye complaints, Denies blurry vision, Denies change in vision, Denies diplopia, Denies eye discharge, Denies loss of vision and Denies eye pain <VIRAJ Dorado Last Filed: 12/20/22 06:59> ENT: Denies dizziness <VIRAJ Dorado Last Filed: 12/20/22 06:59> Cardiovascular: Cardiovascular: Reports no additional cardiovascular complai nts, Denies chest pain, Denies lightheadedness, Denies Loss of Consciousness and Denies dyspnea <VIRAJ Dorado Last Filed: 12/20/22 06:59> Respiratory: Respiratory: Reports no additional respiratory complaints and Denies dyspnea <VIRAJ Dorado Last Filed: 12/20/22 06:59> Gastrointestinal: Gastrointestinal: Reports no additional gastrointestinal complaints, Denies abdominal pain, Denies melena, Denies hematochezia, Denies change in bowel habits and Denies change in stool character <VIRAJ Dorado Last Filed: 12/20/22 06:59> Genitourinary: Genitourinary: Reports no additional male genitourinary complaints, Denies hematuria, Denies oliguria, Denies difficulty urinating, Denies dysuria, Denies urinary frequency, Denies urinary hesitancy, Denies urinary incontinence and Denies urinary urgency <VIRAJ Dorado - Last Filed: 12/20/22 06:59> Musculoskeletal: Musculoskeletal: Reports no additional musculoskeletal complaints, Denies numbness and Denies tingling <VIRAJ Dorado - Last Filed: 12/20/22 06:59> Neurologic: Denies dizziness, Denies loss of vision, Denies numbness and Denies tingling <VIRAJ Dorado Last Filed: 12/20/22 06:59> Psychiatric: Psychiatric: Reports no additional psychiatric complaints <VIRAJ Dorado Last Filed: 12/20/22 06:59> Endocrine: Endocrine: Reports no additional endocrine complaints <VIRAJ Dorado Last Filed: 12/20/22 06:59> Hematologic/Lymphatic: Hematologic/Lymphatic: Reports no additional hematologic/lymphatic complaints <VIRAJ Dorado - Last Filed: 12/20/22 06:59> Allergic/Immunologic: Allergic/Immunologic: Reports no additional allergic/immunologic complaints <VIRAJ Dorado Last Filed: 12/20/22 06:59> [facility] Past Medical History Attestation statement: The following information was validated with the patient. <VIRAJ Dorado - Last Filed: 12/20/22 06:59> Source: old records reviewed and nursing notes reviewed <VIRAJ Dorado Last Filed: 12/20/22 06:59> Medical History: Medical History CKD (chronic kidney disease) Depression Diabetes Former smoker High cholesterol Hypertension <VIRAJ Dorado - Last Filed: 12/20/22 06:59> Surgical History: Surgical History History of aneurysm History of shoulder surgery <VIRAJ Dorado - Last Filed: 12/20/22 06:59> Family History Family History: Family History Father No problems noted. Mother Diabetes Hypertension Cancer Son No problems noted. Son No problems noted. Son No problems noted. Daughter No problems noted. Daughter No problems noted. <VIRAJ Dorado - Last Filed: 12/20/22 06:59> Social History Social History: Social History Household Members: Spouse Household Members Other:: Housing: Apartment Do you presently have visiting nurse or other home services: No Alcohol intake: never Patient Tobacco Use Status: Never used Tobacco Smoked in Last 30 Days: No Use of substances other than those prescribed or required for medical reasons: No Currently Displaying Signs/Symptoms of Drug Intoxication Withdrawal: No Have you been hit, kicked, punched, or otherwise hurt by someone within the past year? If so, by whom?: No Do you feel safe in your current relationship?: No Is there a partner from a previous relationship who is making you feel unsafe now?: No Are you made to feel afraid or neglected: No Spiritual Healthcare Practices: N/A Spiritism Healthcare Practices: Zoroastrian Cultural Healthcare Practices: N/A Advance Directives: No Advance Directives Information Provided: Yes Do you have thoughts of harming others: None Do you have a plan to hurt others: No Plan Recently lost weight without trying: No Nutrition Risks: No Nutritional Risk Poor oral hygiene: No <VIRAJ Dorado - Last Filed: 12/20/22 06:59> Physical Exam ED Vital Signs: Vital Signs - 24 hr 12/19/22 11:37 12/19/22 11:42 12/19/22 13:50 Temperature 97.9 F 97.9 F Pulse Rate 62 70 64 Respiratory Rate 18 18 22 H Blood Pressure 153/55 H 153/55 H 171/64 H Pulse Oximetry 93 92 93 Oxygen Delivery Method Room Air Room Air Room Air Oxygen Flow Rate 12/19/22 14:02 12/19/22 14:21 12/19/22 14:00 Temperature 97.7 F 98.5 F 96.7 F L Pulse Rate 64 62 78 Respiratory Rate 18 16 20 Blood Pressure 166/66 H 165/70 H 170/53 H Pulse Oximetry 96 Oxygen Delivery Method Nasal Cannula Oxygen Flow Rate 2 BMI result Body Mass Index 32.2 <VIRAJ Dorado Last Filed: 12/20/22 06:59> Vital Signs - 24 hr 12/19/22 11:37 12/19/22 11:42 12/19/22 13:50 Temperature 97.9 F 97.9 F Pulse Rate 62 70 64 Respiratory Rate 18 18 22 H Blood Pressure 153/55 H 153/55 H 171/64 H Pulse Oximetry 93 92 93 Oxygen Delivery Method Room Air Room Air Room Air Oxygen Flow Rate 12/19/22 14:02 12/19/22 14:21 12/19/22 14:00 Temperature 97.7 F 98.5 F 96.7 F L Pulse Rate 64 62 78 Respiratory Rate 18 16 20 Blood Pressure 166/66 H 165/70 H 170/53 H Pulse Oximetry 96 Oxygen Delivery Method Nasal Cannula Oxygen Flow Rate 2 BMI result Body Mass Index 32.2 <Truong Martínez - Last Filed: 12/19/22 17:21> Const General: healthy appearing; No ill appearing <VIRAJ Dorado - Last Filed: 12/20/22 06:59> Nutritional Appearance: well nourished <VIRAJ Dorado Last Filed: 12/20/22 06:59> Orientation/consciousness: patient oriented x3 <VIRAJ Dorado Last Filed: 12/20/22 06:59> Limitations: no limitations <VIRAJ Dorado Last Filed: 12/20/22 06:59> HENMT Head: Yes normal to inspection and Yes atraumatic <VIRAJ Dorado Last Filed: 12/20/22 06:59> Ears: hearing grossly normal bilaterally and external ears normal <VIRAJ Dorado Last Filed: 12/20/22 06:59> General nose exam: Normal external nose present, no nasal discharge noted and no epistaxis <VIRAJ Dorado Last Filed: 12/20/22 06:59> Face and sinus: Yes normal facial exam, No abrasion and No laceration <Eileen VIRAJ Wong - Last Filed: 12/20/22 06:59> Mouth: Normal oral and palatal mucosa present, no drooling and no muffled voice <Eileenderrell EasleyVIRAJ hernandez - Last Filed: 12/20/22 06:59> Eyes General: appearance normal, both eyes and all related structures <VIRAJ Dorado - Last Filed: 12/20/22 06:59> Periorbital: periorbital findings normal <VIRAJ Dorado - Last Filed: 12/20/22 06:59> Eyelids: Yes eyelids normal <Eileen Wong [place] - Last Filed: 12/20/22 06:59> Conjunctivae: conjunctivae normal <VIRAJ Dorado - Last Filed: 12/20/22 06:59> Pupils: Equal, round and reactive pupils present <VIRAJ Dorado - Last Filed: 12/20/22 06:59> EOM: EOMs intact bilaterally <VIRAJ Dorado - Last Filed: 12/20/22 0 6:59> Neck Neck: Yes normal visual inspection, Yes full ROM and Yes no lymphadenopathy <VIRAJ Dorado - Last Filed: 12/20/22 06:59> Chest Chest palpation & inspection: normal inspection of the chest <VIRAJ Dorado - Last Filed: 12/20/22 06:59> Resp Effort & Inspection: normal respiratory effort, no audible wheezes and no cough <VIRAJ Dorado - Last Filed: 12/20/22 06:59> Auscultation: clear to auscultation bilaterally <VIRAJ Dorado - Last Filed: 12/20/22 06:59> Cardio Rhythm: abnormal rhythm irregularly irregular <VIRAJ Dorado - Last Filed: 12/20/22 06:59> Heart sounds: no murmurs <VIRAJ Dorado - Last Filed: 12/20/22 06:59> Peripheral pulses: dorsalis pedis present <VIRAJ Dorado - Last Filed: 12/20/22 06:59> GI Inspection: Yes normal to inspection <VIRAJ Dorado - Last Filed: 12/20/22 06:59> Skin Other: Patient has an approximately 1 inch bruise near his IV site on his left arm. <VIRAJ Dorado - Last Filed: 12/20/22 06:59> Neuro General: patient oriented x3 <VIRAJ Dorado - Last Filed: 12/20/22 06:59> Cranial nerves: Yes CN's II-XII intact bilaterally and Yes Equal, round and reactive pupils present <VIRAJ Dorado - Last Filed: 12/20/22 06:59> Cognition (Neuro): normal cognition <VIRAJ Dorado - Last Filed: 12/20/22 06:59> Motor exam (neuro): 5/5 motor strength present throughout <VIRAJ Dorado - Last Filed: 12/20/22 06:59> Sensory Exam: Normal double simultaneous stimulation for sensation <VIRAJ Dorado - Last Filed: 12/20/22 06:59> Coordination: [id number] test normal <VIRAJ Dorado - Last Filed: 12/20/22 06:59> Extrem Other: bilateral lower extremity swelling <VIRAJ Dorado - Last Filed: 12/20/22 06:59> General: Yes full ROM and Yes capillary refill normal <VIRAJ Dorado - Last Filed: 12/20/22 06:59> Psych Appearance: grossly normal <VIRAJ Dorado - Last Filed: 12/20/22 06:59> Mental Status: mental status grossly normal <VIRAJ Dorado - Last Filed: 12/20/22 06:59> Affect: normal affect <VIRAJ Dorado - Last Filed: 12/20/22 06:59> Attitude: cooperative <VIRAJ Dorado - Last Filed: 12/20/22 06:59> Thought process: Normal thought process present <VIRAJ Dorado - Last Filed: 12/20/22 06:59> Thought content: Normal thought content present <VIRAJ Dorado - Last Filed: 12/20/22 06:59> Insight: Good insight present (Psych) <VIRAJ Dorado - Last Filed: 12/20/22 06:59> Course Reevaluation(s) Reevaluation #1: Patient receiving signed out at change of shift. The patient initially planned on leaving against medical advice. He is not willing to stay. I reviewed his workup. The patient has acute on chronic renal disease, acute CHF, acute symptomatic anemia. At this point it is unclear why he is anemic as he has never had this before. I did a rectal exam for occult blood testing which was sent to the lab. Given the patient is currently receiving blood and is currently in acute CHF I added Bumex 2 mg IV to help prevent worsening of his CHF for his receiving his blood transfusion. The patient will require admission to the hospitalist service. <Truong Martínez - Last Filed: 12/19/22 17:21> Time: 16:43 <Truong Martínez - Last Filed: 12/19/22 17:21> Reevaluation #2: All the patient denies seeing any red, black or bloody stool, however his guaiac was positive. Will discuss with hospitalist for admission. <Truong Martínez - Last Filed: 12/19/22 17:21> Time: 17:21 <Truong Martínez - Last Filed: 12/19/22 17:21> Medications Administered Generic Name Dose Route Start Last Admin Trade Name Freq PRN Reason Stop Dose Admin Insulin Human Lispro 0 unit 12/19/22 21:00 12/19/22 21:37 Insulin Lispro 100 Unit/Ml 3 Ml Vial SUBCUT 2 unit QIDACHS SHAUNNA Administration Protocol Pantoprazole Sodium 40 mg 12/20/22 06:30 12/20/22 05:30 Pantoprazole Sodium 40 Mg/10 Ml Vial IVPUSH 40 mg BID@0630,1630 SHAUNNA Administration Sodium Chloride 3 ml 12/20/22 00:00 12/20/22 01:12 0.9 % Sodium Chloride Flush 3 Ml Syringe IVFLUSH 3 ml QSHIFT SHAUNNA Administration Discontinued Medications Generic Name Dose Route Start Last Admin Trade Name Freq PRN Reason Stop Dose Admin Bumetanide 2 mg 12/19/22 16:35 12/19/22 17:10 Bumetanide 1 Mg/4 Ml Vial IVPUSH 12/19/22 16:36 2 mg ONCE ONE Administration Protocol Pantoprazole Sodium 40 mg 12/19/22 17:20 12/19/22 18:11 Pantoprazole Sodium 40 Mg/10 Ml Vial IVPUSH 12/19/22 17:21 40 mg ONCE ONE Administration <VIRAJ Dorado - Last Filed: 12/20/22 06:59> Medications Administered Generic Name Dose Route Start Last Admin Trade Name Freq PRN Reason Stop Dose Admin Insulin Human Lispro 0 unit 12/19/22 21:00 12/19/22 21:37 Insulin Lispro 100 Unit/Ml 3 Ml Vial SUBCUT 2 unit QIDACHS [facility] Administration Protocol Pantoprazole Sodium 40 mg 12/20/22 06:30 12/20/22 05:30 Pantoprazole Sodium 40 Mg/10 Ml Vial IVPUSH 40 mg BID@0630,1630 [facility] Administration Sodium Chloride 3 ml 12/20/22 00:00 12/20/22 01:12 0.9 % Sodium Chloride Flush 3 Ml Syringe IVFLUSH 3 ml QSHIFT [facility] Administration Discontinued Medications Generic Name Dose Route Start Last Admin Trade Name Freq PRN Reason Stop Dose Admin Bumetanide 2 mg 12/19/22 16:35 12/19/22 17:10 Bumetanide 1 Mg/4 Ml Vial IVPUSH 12/19/22 16:36 2 mg ONCE ONE Administration Protocol Pantoprazole Sodium 40 mg 12/19/22 17:20 12/19/22 18:11 Pantoprazole Sodium 40 Mg/10 Ml Vial IVPUSH 12/19/22 17:21 40 mg ONCE ONE Administration <Truong Martínez - Last Filed: 12/19/22 17:21> Medical Decision Making Medical Decision Making MDM Narrative: Patient is a 72 year old assigned male at with a history of CHF, CKD, diabetes, a-fib on anti-coagulants, and depression presenting to the emergency department today after an episode of shortness of breath. Patient's physical exam showed bilateral lower extremity edema and intermittent hypoxia. Patient's blood work showed evidence of anemia with a low HGB and a CHF exacerbation with an elevated BNP. Patient's chest x-ray showed evidence of CHF exacerbation. I explained my physical exam findings as well as all test results to the patient. I answered all questions asked by the patient. I initially spoke with the patient about admission however, the patient adamantly denied wanting to stay. Patient agreed to receiving a unit of blood but then wanted to sign out against medical advice. However, the patient's daughter has now arrived and has agreed to discuss with the patient the possibility of admission. Patient signed out to [facility] P[facility]. <VIRAJ Dorado - Last Filed: 12/20/22 06:59> Differential Diagnosis Differential Diagnoses: The differential diagnosis associated with the presentation includes <VIRAJ Dorado - Last Filed: 12/20/22 06:59> CHF exacerbation, anemia requiring blood transfusion, CKD <VIRAJ Dorado - Last Filed: 12/20/22 06:59> Consult Healthcare Provider Management of the patient was discussed with: Hospitalist (admitted per course of this note) <VIRAJ Dorado - Last Filed: 12/20/22 06:59> Lab Data MDM Lab Attestation statement: I reviewed the patient's lab results. <VIRAJ Dorado - Last Filed: 12/20/22 06:59> Result Diagrams: 12/19/22 12:11 12/19/22 12:11 <VIRAJ Dorado - Last Filed: 12/20/22 06:59> Labs: Lab Results 12/19/22 12/19/22 12/19/22 Range/Units 12:08 12:09 12:11 WBC 6.2 (4.8-10.8) X10*3/uL RBC 3.08 L D (4.60-5.80) X10*6/uL Hgb 6.3 L* D (14.0-18.0) g/dl Hct 22.7 L D (42.0-52.0) % MCV 73.7 L (80.0-98.0) fL MCH 20.5 L (27.0-33.0) pg MCHC 27.8 L (31.0-36.0) g/dl RDW 18.4 H (11.0-16.0) % Plt Count 197 (160-400) X10*3/uL MPV 9.7 (9.4-12.4) fL Immature Gran % (Auto) 0.3 (0.0-0.4) % Neut % (Auto) 82.5 H (45-73) % Lymph % (Auto) 9.2 L (20-40) % [place] % (Auto) 6.2 (2-11) % Eos % (Auto) 1.6 (0-4) % Baso % (Auto) 0.2 (0-2) % Lymph # (Auto) 0.6 L (1.2-4.9) X10*3/uL [place] # (Auto) 0.4 (0.1-1.2) X10*3/uL Eos # (Auto) 0.1 (0.0-0.4) X10*3/uL Baso # (Auto) 0.0 (0.0-0.2) X10*3/uL Abs Immat Gran (auto) 0.02 (0.00-0.03) X10*3/uL Absolute Neuts (auto) 5.1 (2.0-8.3) x10*3/uL Absolute Nucleated RBC 0.020 H (0.0-0.012) X10*3/uL Nucleated RBC % (auto) 0.3 H (0.0-0.2) /100WBC PT (10.0-13.1) SEC INR (0.9-1.1) APTT (26.0-36.4) SEC Sodium (135-145) mmol/L Potassium (3.3-5.1) mmol/L Chloride (96-108) mmol/L Carbon Dioxide (22-29) mmol/L Anion Gap (12-20) BUN (9-16) mg/dL Creatinine (0.5-1.4) mg/dL Estim Creat Clear Calc Estimated GFR Random Glucose (60-115) mg/dL Calcium (8.4-10.2) mg/dL Magnesium (1.6-2.6) mg/dL Total Bilirubin (0.0-1.0) mg/dL AST (5-37) U/L ALT (0-40) U/L Alkaline Phosphatase (39-117) U/L Troponin I High Sens (<3.5-35.0) ng/L B-Natriuretic Peptide (<100) pg/mL Total Protein (6.5-8.0) g/dL Albumin (3.5-5.0) g/dL Urine Color Yellow Urine Appearance Clear Urine pH 7.0 (5.0-9.0) Ur Specific [place] 1.015 (1.005-1.025) Urine Protein Trace (Neg-Trace) mg/dL Urine Glucose (UA) >=1000 H (Negative) mg/dL Urine Ketones Negative (Negative) mg/dL Urine Blood Negative (Negative) Urine Nitrite Negative (Negative) Ur Leukocyte Esterase Negative (Negative) Urine RBC 0-2 (0-2) /HPF Urine WBC 0-5 (0-5) /HPF Ur Squamous Epith Cells 0-2 (0-2) /HPF Urine Bacteria None Seen (None Seen) Hyaline Casts 0-2 (0-2) /LPF Stool Occult Blood (NEGATIVE) COVID-19 ([facility]UEL) Negative (Negative) COVID-19 Clin Com See Note Blood Type Antibody Screen Crossmatch 12/19/22 12/19/22 12/19/22 Range/Units 12:11 12:11 12:11 WBC (4.8-10.8) X10*3/uL RBC (4.60-5.80) X10*6/uL Hgb (14.0-18.0) g/dl Hct (42.0-52.0) % MCV (80.0-98.0) fL MCH (27.0-33.0) pg MCHC (31.0-36.0) g/dl RDW (11.0-16.0) % Plt Count (160-400) X10*3/uL MPV (9.4-12.4) fL Immature Gran % (Auto) (0.0-0.4) % Neut % (Auto) (45-73) % Lymph % (Auto) (20-40) % [place] % (Auto) (2-11) % Eos % (Auto) (0-4) % Baso % (Auto) (0-2) % Lymph # (Auto) (1.2-4.9) X10*3/uL [place] # (Auto) (0.1-1.2) X10*3/uL Eos # (Auto) (0.0-0.4) X10*3/uL Baso # (Auto) (0.0-0.2) X10*3/uL Abs Immat Gran (auto) (0.00-0.03) X10*3/uL Absolute Neuts (auto) (2.0-8.3) x10*3/uL Absolute Nucleated RBC (0.0-0.012) X10*3/uL Nucleated RBC % (auto) (0.0-0.2) /100WBC PT (10.0-13.1) SEC INR (0.9-1.1) APTT (26.0-36.4) SEC Sodium 141 (135-145) mmol/L Potassium 3.5 (3.3-5.1) mmol/L Chloride 108 (96-108) mmol/L Carbon Dioxide 26 (22-29) mmol/L Anion Gap 11 L (12-20) BUN 49 H (9-16) mg/dL Creatinine 2.52 H (0.5-1.4) mg/dL Estim Creat Clear Calc 30.6 Estimated GFR 25 Random Glucose 123 H (60-115) mg/dL Calcium 9.1 D (8.4-10.2) mg/dL Magnesium 2.3 (1.6-2.6) mg/dL Total Bilirubin 1.4 H (0.0-1.0) mg/dL AST 15 (5-37) U/L ALT 13 (0-40) U/L Alkaline Phosphatase 95 (39-117) U/L Troponin I High Sens 25.9 (<3.5-35.0) ng/L B-Natriuretic Peptide 559 H (<100) pg/mL Total Protein 6.5 (6.5-8.0) g/dL Albumin 3.7 (3.5-5.0) g/dL Urine Color Urine Appearance Urine pH (5.0-9.0) Ur Specific [place] (1.005-1.025) Urine Protein (Neg-Trace) mg/dL Urine Glucose (UA) (Negative) mg/dL Urine Ketones (Negative) mg/dL Urine Blood (Negative) Urine Nitrite (Negative) Ur Leukocyte Esterase (Negative) Urine RBC (0-2) /HPF Urine WBC (0-5) /HPF Ur Squamous Epith Cells (0-2) /HPF Urine Bacteria (None Seen) Hyaline Casts (0-2) /LPF Stool Occult Blood (NEGATIVE) COVID-19 ([facility]) (Negative) COVID-19 Clin Com Blood Type Antibody Screen Crossmatch 12/19/22 12/19/22 12/19/22 Range/Units 12:48 12:49 16:54 WBC (4.8-10.8) X10*3/uL RBC (4.60-5.80) X10*6/uL Hgb (14.0-18.0) g/dl Hct (42.0-52.0) % MCV (80.0-98.0) fL MCH (27.0-33.0) pg MCHC (31.0-36.0) g/dl RDW (11.0-16.0) % Plt Count (160-400) X10*3/uL MPV (9.4-12.4) fL Immature Gran % (Auto) (0.0-0.4) % Neut % (Auto) (45-73) % Lymph % (Auto) (20-40) % [place] % (Auto) (2-11) % Eos % (Auto) (0-4) % Baso % (Auto) (0-2) % Lymph # (Auto) (1.2-4.9) X10*3/uL [place] # (Auto) (0.1-1.2) X10*3/uL Eos # (Auto) (0.0-0.4) X10*3/uL Baso # (Auto) (0.0-0.2) X10*3/uL Abs Immat Gran (auto) (0.00-0.03) X10*3/uL Absolute Neuts (auto) (2.0-8.3) x10*3/uL Absolute Nucleated RBC (0.0-0.012) X10*3/uL Nucleated RBC % (auto) (0.0-0.2) /100WBC PT 17.0 H (10.0-13.1) SEC INR 1.5 H (0.9-1.1) APTT 32.1 (26.0-36.4) SEC Sodium (135-145) mmol/L Potassium (3.3-5.1) mmol/L Chloride (96-108) mmol/L Carbon Dioxide (22-29) mmol/L Anion Gap (12-20) BUN (9-16) mg/dL Creatinine (0.5-1.4) mg/dL Estim Creat Clear Calc Estimated GFR Random Glucose (60-115) mg/dL Calcium (8.4-10.2) mg/dL Magnesium (1.6-2.6) mg/dL Total Bilirubin (0.0-1.0) mg/dL AST (5-37) U/L ALT (0-40) U/L Alkaline Phosphatase (39-117) U/L Troponin I High Sens (<3.5-35.0) ng/L B-Natriuretic Peptide (<100) pg/mL Total Protein (6.5-8.0) g/dL Albumin (3.5-5.0) g/dL Urine Color Urine Appearance Urine pH (5.0-9.0) Ur Specific [place] (1.005-1.025) Urine Protein (Neg-Trace) mg/dL Urine Glucose (UA) (Negative) mg/dL Urine Ketones (Negative) mg/dL Urine Blood (Negative) Urine Nitrite (Negative) Ur Leukocyte Esterase (Negative) Urine RBC (0-2) /HPF Urine WBC (0-5) /HPF Ur Squamous Epith Cells (0-2) /HPF Urine Bacteria (None Seen) Hyaline Casts (0-2) /LPF Stool Occult Blood POSITIVE (NEGATIVE) COVID-19 ([facility]) (Negative) COVID-19 Clin Com Blood Type B Positive Antibody Screen NEGATIVE Crossmatch See Detail <VIRAJ Dorado - Last Filed: 12/20/22 06:59> Lab Results 12/19/22 12/19/22 12/19/22 Range/Units 12:08 12:09 12:11 WBC 6.2 (4.8-10.8) X10*3/uL RBC 3.08 L D (4.60-5.80) X10*6/uL Hgb 6.3 L* D (14.0-18.0) g/dl Hct 22.7 L D (42.0-52.0) % MCV 73.7 L (80.0-98.0) fL MCH 20.5 L (27.0-33.0) pg MCHC 27.8 L (31.0-36.0) g/dl RDW 18.4 H (11.0-16.0) % Plt Count 197 (160-400) X10*3/uL MPV 9.7 (9.4-12.4) fL Immature Gran % (Auto) 0.3 (0.0-0.4) % Neut % (Auto) 82.5 H (45-73) % Lymph % (Auto) 9.2 L (20-40) % [place] % (Auto) 6.2 (2-11) % Eos % (Auto) 1.6 (0-4) % Baso % (Auto) 0.2 (0-2) % Lymph # (Auto) 0.6 L (1.2-4.9) X10*3/uL [place] # (Auto) 0.4 (0.1-1.2) X10*3/uL Eos # (Auto) 0.1 (0.0-0.4) X10*3/uL Baso # (Auto) 0.0 (0.0-0.2) X10*3/uL Abs Immat Gran (auto) 0.02 (0.00-0.03) X10*3/uL Absolute Neuts (auto) 5.1 (2.0-8.3) x10*3/uL Absolute Nucleated RBC 0.020 H (0.0-0.012) X10*3/uL Nucleated RBC % (auto) 0.3 H (0.0-0.2) /100WBC PT (10.0-13.1) SEC INR (0.9-1.1) APTT (26.0-36.4) SEC Sodium (135-145) mmol/L Potassium (3.3-5.1) mmol/L Chloride (96-108) mmol/L Carbon Dioxide (22-29) mmol/L Anion Gap (12-20) BUN (9-16) mg/dL Creatinine (0.5-1.4) mg/dL Estim Creat Clear Calc Estimated GFR Random Glucose (60-115) mg/dL Calcium (8.4-10.2) mg/dL Magnesium (1.6-2.6) mg/dL Total Bilirubin (0.0-1.0) mg/dL AST (5-37) U/L ALT (0-40) U/L Alkaline Phosphatase (39-117) U/L Troponin I High Sens (<3.5-35.0) ng/L B-Natriuretic Peptide (<100) pg/mL Total Protein (6.5-8.0) g/dL Albumin (3.5-5.0) g/dL Urine Color Yellow Urine Appearance Clear Urine pH 7.0 (5.0-9.0) Ur Specific [place] 1.015 (1.005-1.025) Urine Protein Trace (Neg-Trace) mg/dL Urine Glucose (UA) >=1000 H (Negative) mg/dL Urine Ketones Negative (Negative) mg/dL Urine Blood Negative (Negative) Urine Nitrite Negative (Negative) Ur Leukocyte Esterase Negative (Negative) Urine RBC 0-2 (0-2) /HPF Urine WBC 0-5 (0-5) /HPF Ur Squamous Epith Cells 0-2 (0-2) /HPF Urine Bacteria None Seen (None Seen) Hyaline Casts 0-2 (0-2) /LPF Stool Occult Blood (NEGATIVE) COVID-19 (CARLOS MANUEL) Negative (Negative) COVID-19 Clin Com See Note Blood Type Antibody Screen Crossmatch 12/19/22 12/19/22 12/19/22 Range/Units 12:11 12:11 12:11 WBC (4.8-10.8) X10*3/uL RBC (4.60-5.80) X10*6/uL Hgb (14.0-18.0) g/dl Hct (42.0-52.0) % MCV (80.0-98.0) fL MCH (27.0-33.0) pg MCHC (31.0-36.0) g/dl RDW (11.0-16.0) % Plt Count (160-400) X10*3/uL MPV (9.4-12.4) fL Immature Gran % (Auto) (0.0-0.4) % Neut % (Auto) (45-73) % Lymph % (Auto) (20-40) % [place] % (Auto) (2-11) % Eos % (Auto) (0-4) % Baso % (Auto) (0-2) % Lymph # (Auto) (1.2-4.9) X10*3/uL [place] # (Auto) (0.1-1.2) X10*3/uL Eos # (Auto) (0.0-0.4) X10*3/uL Baso # (Auto) (0.0-0.2) X10*3/uL Abs Immat Gran (auto) (0.00-0.03) X10*3/uL Absolute Neuts (auto) (2.0-8.3) x10*3/uL Absolute Nucleated RBC (0.0-0.012) X10*3/uL Nucleated RBC % (auto) (0.0-0.2) /100WBC PT (10.0-13.1) SEC INR (0.9-1.1) APTT (26.0-36.4) SEC Sodium 141 (135-145) mmol/L Potassium 3.5 (3.3-5.1) mmol/L Chloride 108 (96-108) mmol/L Carbon Dioxide 26 (22-29) mmol/L Anion Gap 11 L (12-20) BUN 49 H (9-16) mg/dL Creatinine 2.52 H (0.5-1.4) mg/dL Estim Creat Clear Calc 30.6 Estimated GFR 25 Random Glucose 123 H (60-115) mg/dL Calcium 9.1 D (8.4-10.2) mg/dL Magnesium 2.3 (1.6-2.6) mg/dL Total Bilirubin 1.4 H (0.0-1.0) mg/dL AST 15 (5-37) U/L ALT 13 (0-40) U/L Alkaline Phosphatase 95 (39-117) U/L Troponin I High Sens 25.9 (<3.5-35.0) ng/L B-Natriuretic Peptide 559 H (<100) pg/mL Total Protein 6.5 (6.5-8.0) g/dL Albumin 3.7 (3.5-5.0) g/dL Urine Color Urine Appearance Urine pH (5.0-9.0) Ur Specific [place] (1.005-1.025) Urine Protein (Neg-Trace) mg/dL Urine Glucose (UA) (Negative) mg/dL Urine Ketones (Negative) mg/dL Urine Blood (Negative) Urine Nitrite (Negative) Ur Leukocyte Esterase (Negative) Urine RBC (0-2) /HPF Urine WBC (0-5) /HPF Ur Squamous Epith Cells (0-2) /HPF Urine Bacteria (None Seen) Hyaline Casts (0-2) /LPF Stool Occult Blood (NEGATIVE) COVID-19 (CARLOS MANUEL) (Negative) COVID-19 Clin Com Blood Type Antibody Screen Crossmatch 12/19/22 12/19/22 12/19/22 Range/Units 12:48 12:49 16:54 WBC (4.8-10.8) X10*3/uL RBC (4.60-5.80) X10*6/uL Hgb (14.0-18.0) g/dl Hct (42.0-52.0) % MCV (80.0-98.0) fL MCH (27.0-33.0) pg MCHC (31.0-36.0) g/dl RDW (11.0-16.0) % Plt Count (160-400) X10*3/uL MPV (9.4-12.4) fL Immature Gran % (Auto) (0.0-0.4) % Neut % (Auto) (45-73) % Lymph % (Auto) (20-40) % [place] % (Auto) (2-11) % Eos % (Auto) (0-4) % Baso % (Auto) (0-2) % Lymph # (Auto) (1.2-4.9) X10*3/uL [place] # (Auto) (0.1-1.2) X10*3/uL Eos # (Auto) (0.0-0.4) X10*3/uL Baso # (Auto) (0.0-0.2) X10*3/uL Abs Immat Gran (auto) (0.00-0.03) X10*3/uL Absolute Neuts (auto) (2.0-8.3) x10*3/uL Absolute Nucleated RBC (0.0-0.012) X10*3/uL Nucleated RBC % (auto) (0.0-0.2) /100WBC PT 17.0 H (10.0-13.1) SEC INR 1.5 H (0.9-1.1) APTT 32.1 (26.0-36.4) SEC Sodium (135-145) mmol/L Potassium (3.3-5.1) mmol/L Chloride (96-108) mmol/L Carbon Dioxide (22-29) mmol/L Anion Gap (12-20) BUN (9-16) mg/dL Creatinine (0.5-1.4) mg/dL Estim Creat Clear Calc Estimated GFR Random Glucose (60-115) mg/dL Calcium (8.4-10.2) mg/dL Magnesium (1.6-2.6) mg/dL Total Bilirubin (0.0-1.0) mg/dL AST (5-37) U/L ALT (0-40) U/L Alkaline Phosphatase (39-117) U/L Troponin I High Sens (<3.5-35.0) ng/L B-Natriuretic Peptide (<100) pg/mL Total Protein (6.5-8.0) g/dL Albumin (3.5-5.0) g/dL Urine Color Urine Appearance Urine pH (5.0-9.0) Ur Specific [place] (1.005-1.025) Urine Protein (Neg-Trace) mg/dL Urine Glucose (UA) (Negative) mg/dL Urine Ketones (Negative) mg/dL Urine Blood (Negative) Urine Nitrite (Negative) Ur Leukocyte Esterase (Negative) Urine RBC (0-2) /HPF Urine WBC (0-5) /HPF Ur Squamous Epith Cells (0-2) /HPF Urine Bacteria (None Seen) Hyaline Casts (0-2) /LPF Stool Occult Blood POSITIVE (NEGATIVE) COVID-19 (CARLOS MANUEL) (Negative) COVID-19 Clin Com Blood Type B Positive Antibody Screen NEGATIVE Crossmatch See Detail <Truong Martínez - Last Filed: 12/19/22 17:21> Independent Interpretation I performed an independent interpretation of an: EKG <VIRAJ Dorado - Last Filed: 12/20/22 06:59> Interpretation: Vent. Rate: 062 BPM ? ? Atrial Rate: 000 BPM P-R Int: 000 ms? QRS Dur: 104 ms QT Int: 402 ms ? ? ? P-R-T Axes: 000 026 174 degrees QTc Int: 408 ms ? Artifact in tracing Atrial fibrillation ST & T wave abnormality, consider lateral ischemia Abnormal ECG When compared with ECG of 26-MAR-2022 09:27, No significant changes seen ? Electronically Signed By:EDINSON OLIVERA Dictated By: Edinson Olivera MD Signed By: Electronically signed by Edinson Olivera MD 12/19/22 1250 My interpretation is in agreement with the radiologist's impression of this imaging study. EXAMINATION: XR CHEST CLINICAL INFORMATION: Shortness of breath COMPARISON: Previous chest x-ray most recent March 2022 TECHNIQUE: 2 views of the chest were obtained. FINDINGS: The cardiac silhouette is slightly enlarged. There is pulmonary venous redistribution, increased interstitial markings and small bilateral pleural effusions. Findings are suggestive of CHF. There are degenerative changes of the spine. Postsurgical change to the right distal clavicle. XR/XR chest 2V IMPRESSION: CHF. Dictated By: Bebe Chen MD Signed By: Electronically signed by Bebe Chen MD 12/19/22 1346 <VIRAJ Dorado Last Filed: 12/20/22 06:59> Independent Historian Clinical information obtained from an independent historian. History obtained from or confirmed by: Other (Patient's daughter) <VIRAJ Dorado Last Filed: 12/20/22 06:59> Chronic Conditions Patient?s care impacted by: Diabetes and Hypertension <VIRAJ Dorado Last Filed: 12/20/22 06:59> Critical Care Time Critical Care Time Critical Care Time: Yes <VIRAJ Dorado Last Filed: 12/20/22 06:59> Total Critical Care Time: 45 <VIRAJ Dorado Last Filed: 12/20/22 06:59> Attestation: I spent 45 minutes of Critical Care Time with this patient. This does not include time spent on separately reported billable procedures. <VIRAJ Dorado Last Filed: 12/20/22 06:59> Discharge Plan Discharge Clinical Impression: Anemia, CKD (chronic kidney disease), CHF (congestive heart failure) <VIRAJ Dorado - Last Filed: 12/20/22 06:59> Patient Disposition: Admitted As Inpatient <VIRAJ Dorado - Last Filed: 12/20/22 06:59> Interventions: Admission Worksheet (ED) Last Done: 12/19/22 21:22 <VIRAJ Dorado - Last Filed: 12/20/22 06:59> Discharge Date/Time: 12/19/22 21:24 <VIRAJ Dorado - Last Filed: 12/20/22 06:59>
--- NOTE | 2022-12-19 11:49 | ECG_ITS ---
Test Reason : DIZZINESS Blood Pressure : / mmHG Vent. Rate : 062 BPM Atrial Rate : 000 BPM P-R Int : 000 ms QRS Dur : 104 ms QT Int : 402 ms P-R-T Axes : 000 026 174 degrees QTc Int : 408 ms Artifact in tracing Atrial fibrillation ST & T wave abnormality, consider lateral ischemia Abnormal ECG When compared with ECG of 26-MAR-2022 09:27, No significant changes seen Referred By: Eileen Wong Electronically Signed By:AHMET KAPADIA
--- NOTE | 2022-12-19 12:01 | MHC.EDTECH ---
EKG completed and signed by
--- NOTE | 2022-12-19 12:07 | PC.NURSE ---
Alert and oriented, resp even and unlabored. Afib on monitor w/ history of afib.
[2022-12-19 12:17] LABS: MANUAL DIFF FLAG NO
[2022-12-19 12:20] LABS: Appearance Urine Clear; Color Urine Yellow; Glucose Urine UA >=1000 mg/dL (Negative); Leukocyte Esterase Urine Negative (Negative); Nitrite Urine Negative (Negative); Specific Gravity - Urine 1.015 (1.005-1.025); UMIC TRIGGER UACC YES; Urine Blood Negative (Negative); Urine Ketones Negative (Negative); Urine Protein Trace mg/dL (Neg-Trace)
[2022-12-19 12:27] LABS: Basophils Percent Auto 0.2 % (0-2); Eosinophils Absolute Auto 0.1 X10*3/uL (0.0-0.4); Eosinophils Percent Auto 1.6 % (0-4); Hematocrit 22.7 % (42.0-52.0); Imm Gran Abs Auto 0.02 X10*3/uL (0.00-0.03); Imm Gran Pct Auto 0.3 % (0.0-0.4); Lymphocytes Absolute Auto 0.6 X10*3/uL (1.2-4.9); Lymphocytes Percent Auto 9.2 % (20-40); Mean Corpuscular HGB Conc 27.8 g/dl (31.0-36.0); Mean Corpuscular Hemoglobin 20.5 pg (27.0-33.0); Mean Corpuscular Volume 73.7 fL (80.0-98.0); Mean Platelet Volume 9.7 fL (9.4-12.4); Monocytes Absolute Auto 0.4 X10*3/uL (0.1-1.2); Monocytes Percent Auto 6.2 % (2-11); NRBC Pct Auto 0.3 /100WBC (0.0-0.2); Neutrophils Absolute Auto 5.1 x10*3/uL (2.0-8.3); Neutrophils Percent Auto 82.5 % (45-73); Platelet Count 197 X10*3/uL (160-400); Red Blood Count 3.08 X10*6/uL (4.60-5.80); Red Cell Distribution Width 18.4 % (11.0-16.0); White Blood Count 6.2 X10*3/uL (4.8-10.8)
[2022-12-19 12:32] LABS: COVID-19 Test Negative (Negative); IDNOW Serial# 08D9AD1C
[2022-12-19 12:33] LABS: Alanine Aminotransferase 13 U/L (0-40); Albumin Level 3.7 g/dL (3.5-5.0); Alkaline Phosphatase 95 U/L (39-117); Anion Gap 11 (12-20); Aspartate Amino Transferase 15 U/L (5-37); Bilirubin Total 1.4 mg/dL (0.0-1.0); Blood Urea Nitrogen 49 mg/dL (9-16); Calcium 9.1 mg/dL (8.4-10.2); Carbon Dioxide 26 mmol/L (22-29); Chloride 108 mmol/L (96-108); Creatinine Clr Calc Pharmacy 30.6; Estimated Glomerular Filt Rate 25; Glucose Random 123 mg/dL (60-115); Magnesium 2.3 mg/dL (1.6-2.6); Potassium 3.5 mmol/L (3.3-5.1); Sodium 141 mmol/L (135-145); Total Protein 6.5 g/dL (6.5-8.0)
[2022-12-19 12:35] LABS: Hemoglobin 6.3 g/dl (14.0-18.0)
[2022-12-19 12:38] LABS: B Type Natriuretic Peptide 559 pg/mL (<100)
[2022-12-19 12:41] LABS: Troponin-I High Sensitivity 25.9 ng/L (<3.5-35.0)
--- NOTE | 2022-12-19 12:51 | PC.NURSE ---
2nd IV established, type and screen obtained and sent.
[2022-12-19 12:56] LABS: Bacteria Urine None Seen (None Seen); Hyaline Casts Urine 0-2 /LPF (0-2); RBC Urine 0-2 /HPF (0-2); Squamous Epithelial Cell Urine 0-2 /HPF (0-2); WBC Urine 0-5 /HPF (0-5)
[2022-12-19 13:03] LABS: INTERNATIONAL NORM RATIO 1.5 (0.9-1.1)
[2022-12-19 13:06] LABS: Partial Thromboplastin Time 32.1 SEC (26.0-36.4)
--- NOTE | 2022-12-19 14:14 | PC.NURSE ---
Blood infusing at this time, pt asymptomatic of reaction
--- NOTE | 2022-12-19 14:47 | PC.NURSE ---
Pt refusing to stay at this point, completing blood transfusion
[2022-12-19 17:03] LABS: OBS Int Ctl Valid YES; OBS1 POSITIVE (NEGATIVE)
[2022-12-19] MEDS: Bumetanide 1 MG/4 ML VIAL 2 MG IVPUSH (17:10)
--- NOTE | 2022-12-19 17:50 | PM.IMHP ---
History of Present Illness Date of Service: 12/19/22 Chief Complaint: Shortness of breath and swelling in the legs. 72-year-old male with a past medical history of atrial fibrillation chronically on Eliquis, HLD, CKD, hypertension, reported EF at [facility] of 35 to 40% presenting with shortness of breath and increase leg edema. He had been seen outpatient clinic because because increase leg edam and dyspnea on exertion. He states that he has had swelling in the leg in the past but not much but over the last 2 days the swelling has markedly increase and dyspnea with exertion is worsening. He can lay down flat on bed so he has been sleeping in the recliner in the living room, he has gained unspecified amount of weight. He was sent to the ED to be further evaluated. Work up in the ED CXR finding of CHF, BNP of 559, nl troponin, and significantly anemic with hemoglobin of 6.3 but denies melena or hematochezia. O2 sat of 89% on room air. No chest pain. But dizziness. +PND and Orthopnea. He is type and screen and is being given RBC. Guaiac positive on exam (by ED providr). He's received Bumex 2 mg IV and voiding quite a bit. Review of Systems Review of Systems: Gen: no fever, weight gain Resp: + sob, no cough CV: no chest, + FRANCIS, + leg edema GI: No n/v, no abd pain, no blood in stool Neuro: No confusion Yes all other systems are reviewed and are negative [facility] Medical History CKD (chronic kidney disease) Depression Diabetes Former smoker High cholesterol Hypertension Family History Father No problems noted. Mother Diabetes Hypertension Cancer Son No problems noted. Son No problems noted. Son No problems noted. Daughter No problems noted. Daughter No problems noted. Surgical History History of aneurysm History of shoulder surgery Social History Household Members: Spouse Household Members Other:: Housing: Apartment Do you presently have visiting nurse or other home services: No Alcohol intake: never Patient Tobacco Use Status: Never used Tobacco Smoked in Last 30 Days: No Use of substances other than those prescribed or required for medical reasons: No Currently Displaying Signs/Symptoms of Drug Intoxication Withdrawal: No Have you been hit, kicked, punched, or otherwise hurt by someone within the past year? If so, by whom?: No Do you feel safe in your current relationship?: No Is there a partner from a previous relationship who is making you feel unsafe now?: No Are you made to feel afraid or neglected: No Spiritual Healthcare Practices: N/A Catholic Healthcare Practices: Buddhism Cultural Healthcare Practices: N/A Advance Directives: No Advance Directives Information Provided: Yes Do you have thoughts of harming others: None Do you have a plan to hurt others: No Plan Recently lost weight without trying: No Nutrition Risks: No Nutritional Risk Poor oral hygiene: No Meds Allergies Allergy/AdvReac Type Severity Reaction Status Date / Time No Known Allergies Allergy Verified 04/15/21 20:25 [No Known Allergies*] Active Medications: Current Medications Pharmacy Consult (Consult Rx Perform Med Rec) 1 each MISCELLANE ONCE PRN PRN Reason: Consult order Home Medications Medication Instructions Recorded Confirmed Last Taken Type blood-glucose meter #1 ea 05/14/20 04/30/21 Unknown History lancets #100 ea 05/14/20 04/30/21 Unknown History amlodipine 10 mg tablet 10 mg PO DAILY 12/19/22 12/19/22 Unknown History apixaban 2.5 mg tablet (Eliquis) 2.5 mg PO BID 12/19/22 12/19/22 Unknown History atorvastatin 40 mg tablet 40 mg PO DAILY 12/19/22 12/19/22 Unknown History calcitriol 0.25 mcg capsule 0.25 mcg PO Q2D 12/19/22 12/19/22 Unknown History chlorthalidone 25 mg tablet 25 mg PO DAILY 12/19/22 12/19/22 Unknown History cholecalciferol (vitamin D3) 50 50 mcg PO DAILY 12/19/22 12/19/22 Unknown History mcg (2,000 unit) capsule (Vitamin D3) dapagliflozin 10 mg tablet 10 mg PO DAILY 12/19/22 12/19/22 Unknown History (Farxiga) fluticasone propionate 50 1 spray intranasal DAILY 12/19/22 12/19/22 Unknown History mcg/actuation nasal spray,suspension hydroxyzine HCl 25 mg tablet 25 mg PO BID PRN anxiety 12/19/22 12/19/22 Unknown History lisinopril 40 mg tablet 40 mg PO DAILY 12/19/22 12/19/22 Unknown History potassium chloride 10 mEq 10 meq PO DAILY 12/19/22 12/19/22 Unknown History tablet,extended release Physical Exam Vital Signs and Narrative: Vital Signs: Last Vital Signs Temp 98.5 F 12/19/22 14:21 Pulse 62 12/19/22 14:21 Resp 16 12/19/22 14:21 BP 165/70 H 12/19/22 14:21 Pulse Ox 96 12/19/22 14:00 O2 Del Method Nasal Cannula 12/19/22 14:00 O2 Flow Rate 2 12/19/22 14:00 BMI result Body Mass Index 32.2 Const: Other: Constitutional: Alert, in no distress, overweight. Mental Status: Oriented to person, place and time. Eyes: Pupils are equal, round and reactive to light. Ear, Nose and Throat: Oropharynx clear, mucous membranes moist. Ears and nose without eformities. Respiratory: Clear to auscultation. No wheezing, rales or rhonchi. Cardiovascular: S1 S2 regular. No murmurs, rubs or gallops. 3+ leg edema Gastrointestinal: Abdomen soft, non-tender, non-distended. Normal bowel sounds.? occult blood positive by GI provider Neurologic: Cranial nerves II-XII grossly intact. No focal neurological deficits. Moves all extremities spontaneously.? Skin: No rashes or lesions.? Musculoskeletal: No cyanosis or clubbing. Psychiatric: Normal mood and affect? Results Labs 12/19/22 12:11 12/19/22 12:11 Labs: Laboratory Results - last 24 hr 12/19/22 12/19/22 12/19/22 12:08 12:09 12:11 MCV 73.7 L MCH 20.5 L MCHC 27.8 L RDW 18.4 H Plt Count 197 MPV 9.7 Immature Gran % (Auto) 0.3 Neut % (Auto) 82.5 H Lymph % (Auto) 9.2 L [place] % (Auto) 6.2 Eos % (Auto) 1.6 Baso % (Auto) 0.2 Lymph # (Auto) 0.6 L [place] # (Auto) 0.4 Eos # (Auto) 0.1 Baso # (Auto) 0.0 Abs Immat Gran (auto) 0.02 Absolute Neuts (auto) 5.1 Absolute Nucleated RBC 0.020 H Nucleated RBC % (auto) 0.3 H PT INR APTT Anion Gap Estim Creat Clear Calc Estimated GFR Random Glucose Calcium Magnesium Total Bilirubin AST ALT Alkaline Phosphatase Troponin I High Sens B-Natriuretic Peptide Total Protein Albumin Urine Color Yellow Urine Appearance Clear Urine pH 7.0 Ur Specific [place] 1.015 Urine Protein Trace Urine Glucose (UA) >=1000 H Urine Ketones Negative Urine Blood Negative Urine Nitrite Negative Ur Leukocyte Esterase Negative Urine RBC 0-2 Urine WBC 0-5 Ur Squamous Epith Cells 0-2 Urine Bacteria None Seen Hyaline Casts 0-2 Stool Occult Blood COVID-19 (CARLOS MANUEL) Negative COVID-19 Clin Com See Note Blood Type Antibody Screen Crossmatch 12/19/22 12/19/22 12/19/22 12:11 12:11 12:11 MCV MCH MCHC RDW Plt Count MPV Immature Gran % (Auto) Neut % (Auto) Lymph % (Auto) [place] % (Auto) Eos % (Auto) Baso % (Auto) Lymph # (Auto) [place] # (Auto) Eos # (Auto) Baso # (Auto) Abs Immat Gran (auto) Absolute Neuts (auto) Absolute Nucleated RBC Nucleated RBC % (auto) PT INR APTT Anion Gap 11 L Estim Creat Clear Calc 30.6 Estimated GFR 25 Random Glucose 123 H Calcium 9.1 D Magnesium 2.3 Total Bilirubin 1.4 H AST 15 ALT 13 Alkaline Phosphatase 95 Troponin I High Sens 25.9 B-Natriuretic Peptide 559 H Total Protein 6.5 Albumin 3.7 Urine Color Urine Appearance Urine pH Ur Specific [place] Urine Protein Urine Glucose (UA) Urine Ketones Urine Blood Urine Nitrite Ur Leukocyte Esterase Urine RBC Urine WBC Ur Squamous Epith Cells Urine Bacteria Hyaline Casts Stool Occult Blood COVID-19 (CARLOS MANUEL) COVID-19 [employer] Com Blood Type Antibody Screen Crossmatch 12/19/22 12/19/22 12/19/22 12:48 12:49 16:54 MCV MCH MCHC RDW Plt Count MPV Immature Gran % (Auto) Neut % (Auto) Lymph % (Auto) [place] % (Auto) Eos % (Auto) Baso % (Auto) Lymph # (Auto) [place] # (Auto) Eos # (Auto) Baso # (Auto) Abs Immat Gran (auto) Absolute Neuts (auto) Absolute Nucleated RBC Nucleated RBC % (auto) PT 17.0 H INR 1.5 H APTT 32.1 Anion Gap Estim Creat Clear Calc Estimated GFR Random Glucose Calcium Magnesium Total Bilirubin AST ALT Alkaline Phosphatase Troponin I High Sens B-Natriuretic Peptide Total Protein Albumin Urine Color Urine Appearance Urine pH Ur Specific [place] Urine Protein Urine Glucose (UA) Urine Ketones Urine Blood Urine Nitrite Ur Leukocyte Esterase Urine RBC Urine WBC Ur Squamous Epith Cells Urine Bacteria Hyaline Casts Stool Occult Blood POSITIVE COVID-19 (CARLOS MANUEL) COVID-19 Clin Com Blood Type B Positive Antibody Screen NEGATIVE Crossmatch See Detail Imaging Radiologist's Impressions: Impressions Chest X-Ray 12/19/22 12:55 IMPRESSION: CHF. Assessment and Plan (1) Acute blood loss anemia: Status: Acute (2) Acute exacerbation of congestive heart failure: Status: Acute Plan 70-year-old male with a past medical history of atrial fibrillation chronically on Eliquis, HLD, CKD, hypertension, last Echo EF Sep 2020 at [facility] EF of 35 to 40%, presenting with shortness of breath and increase leg edema and found be acute exacerbation of heart failure and acute blood loss anemia with + hemocult. 1/ FRANCIS d/t heart failure and Symptomatic anemia -Treat underlying issues 2/Acute hypoxic resipratory failure d/t above -Oxygen and address unlying issues as above 3/Acute on chronic systolic heart failure--likely precipitated by high output heart failure from anemia -IV diuretics (given Bumex) in ED -Echo--no recent one -Cardiology eval -Monitor I/O and weigh, limit salt -Heart failure education Acute Blood loss anemia, +hemocult -Transuse 2 units - Serial H/H -IV PPI -GI to assess for EGD+/-colonoscopy--I have personally reached to DAKOTA Vance after midnight -hold Eliquis 4/Permanent AFIB on Eliquis -Obviously hold Eliquis --No rate control agents on his med list (HR presently around 60) 5/HTN--Hold Lisinopril, chlorthalidone and continue Norvasc 6/HLD-- Statin 7/Diabetes--on Farsugam -SSI DVT--compression device Admission to [facility] at least 2 midnightes for treatment acute heart failure with IV diuretics and monitor for response, acute blood loss anemi on eliquis and will need work up Full code Time Spent With Patient Time: Total time managing care of this patient today ____ minutes. Quality Stroke Does the patient have a stroke diagnosis?: No VTE Prior VTE?: No VTE Risk Level:: Medical - moderate - high VTE Device Contraindication: N/A - Device Ordered VTE Drug Contraindication: Treatment Not Tolerated (Active bleeding, anemia needing transfusion.)
[2022-12-19] MEDS: Pantoprazole Sodium 40 MG/10 ML VIAL IVPUSH (18:11)
[2022-12-19 19:04] LABS: Glucose, Whole Blood 108 mg/dL (60-115)
--- NOTE | 2022-12-19 19:20 | PC.NURSE ---
Attempted to call report, Rn not available at this time. Will continue to monitor.
--- NOTE | 2022-12-19 19:44 | PC.NURSE ---
Took over plan of care from DMITRY raya. No signs of distress. Pt's granddaughter at bedside asking about plan of care. Will continue to monitor.
--- NOTE | 2022-12-19 20:57 | PC.NURSE ---
Pt a&o, no sob or chest pain at this time, called report to shell, pt being transport to the room 453. Belong list being completed.
[2022-12-19 21:32] LABS: Glucose, Whole Blood 168 mg/dL (60-115)
[2022-12-19] MEDS: Insulin Lispro 100 UNIT/ML 3 ML VIAL SUBCUT (21:37)
[2022-12-20] VITALS (10 sets, daily range): BP systolic 142–194; BP diastolic 62–83; PULSE 67–81; RESP 16–20; TEMP 36.7–37.2; O2SAT 93–100
[2022-12-20] MEDS: 0.9 % Sodium Chloride Flush 3 ML SYRINGE IVFLUSH ×4 (01:12→23:25)
[2022-12-20] MEDS: Pantoprazole Sodium 40 MG/10 ML VIAL IVPUSH ×2 (05:30→17:17)
--- NOTE | 2022-12-20 06:24 | PM.GICN ---
History of Present Illness Data of Consult Service Date: 12/20/22 Requesting physician: Vivek Jaramillo Primary Care Provider: Unknown Physician HPI Reason for consult: anemia 72-year-old male with a past medical history of atrial fibrillation (on Eliquis), HLD,? CKD, hypertension, CHF who I am seeing for assessment for anemia. He is presenting with? shortness of breath and increase leg edema over last few days. he also had orthopnea and had been sleeping in a recliner. As part of assessment he had labs done which revealed HGB 6.3 g/dl, and this had been 10 g/dl at baseline. He has been diuresed and feels back to his baseline with significant improvement in breathing and reduced leg swelling. He is keen to go home. He denies nsaid use, and no melena, rectal bleeding or nose bleeds. No hematuria. No chest pain. He receivied few untis of PRBC with appropriate increment in her HGB. Review of Systems Review of Systems: Constitutional : No Weight loss, No Fever, No Chills ENT/Mouth : No sore throat, No Rhinorrhea Eyes: No Swelling, No Redness Cardiovascular : No Chest Pain, + SOB, No Edema Respiratory : No Cough, No Sputum, No Wheezing Gastrointestinal : see HPI Genitourinary : NO Dysuria, No Urinary Frequency, No Hematuria, No Urgency Musculoskeletal : No joint pain, No Myalgias, No Joint Swelling Skin : No Skin Lesions, No rash Neuro : No Weakness, No Numbness, + Dizziness, No Headache Psych : No Anxiety/Panic, No Depression Heme/Lymph: No Bruising, No Lymphadenopathy Endocrine : No Polyuria, No Polydipsia All other systems reviewed and are negative. [facility] Past Medical History Medical History (Updated 12/20/22 @ 09:30 by Edinson Olivera MD) Chronic atrial fibrillation CKD (chronic kidney disease) Depression Diabetes Former smoker High cholesterol Hypertension Family History Family History Father No problems noted. Mother Diabetes Hypertension Cancer Son No problems noted. Son No problems noted. Son No problems noted. Daughter No problems noted. Daughter No problems noted. Surgical History Surgical History History of aneurysm History of shoulder surgery Social History Social History Household Members: Spouse Household Members Other:: Housing: Apartment Do you presently have visiting nurse or other home services: No Alcohol intake: never Patient Tobacco Use Status: Never used Tobacco Smoked in Last 30 Days: No Use of substances other than those prescribed or required for medical reasons: No Currently Displaying Signs/Symptoms of Drug Intoxication Withdrawal: No Have you been hit, kicked, punched, or otherwise hurt by someone within the past year? If so, by whom?: No Do you feel safe in your current relationship?: No Is there a partner from a previous relationship who is making you feel unsafe now?: No Are you made to feel afraid or neglected: No Spiritual Healthcare Practices: N/A Buddhism Healthcare Practices: Protestant Cultural Healthcare Practices: N/A Advance Directives: No Advance Directives Information Provided: Yes Do you have thoughts of harming others: None Do you have a plan to hurt others: No Plan Recently lost weight without trying: No Nutrition Risks: No Nutritional Risk Poor oral hygiene: No service: Yes Current occupational status: disabled [employer] Allergies Allergy/AdvReac Type Severity Reaction Status Date / Time No Known Allergies Allergy Verified 04/15/21 20:25 [No Known Allergies*] Active Medications: Current Medications Acetaminophen (Acetaminophen Supp 650 Mg Supp.Rect) 650 mg [place] Q6H PRN PRN Reason: Pain, Mild (Pain Scale 1-3) Amlodipine Besylate (Amlodipine Besylate 10 Mg Tablet) 10 mg PO DAILY [facility]; Protocol Atorvastatin Calcium (Atorvastatin Calcium 40 Mg Tablet) 40 mg PO DAILY [facility] Calcitriol (Calcitriol 0.25 Mcg Capsule) 0.25 mcg PO Q2D [facility] Glucose (Glucose Gel 15 Gm Gel..Gram.) 15 gm PO Q15M PRN; Protocol PRN Reason: per Hypoglycemia Standing Ord. Hydroxyzine HCl (Hydroxyzine Hcl 25 Mg Tablet) 25 mg PO BID PRN PRN Reason: anxiety Dextrose (D10) 250 mls @ 750 mls/hr IV Q15M PRN; Protocol PRN Reason: per Hypoglycemia Standing Ord. Insulin Human Lispro (Insulin Lispro 100 Unit/Ml 3 Ml Vial) 0 unit SUBCUT QIDACHS [facility]; Protocol Last Admin: 12/19/22 21:37 Dose: 2 unit Magnesium Hydroxide (Milk Of Magnesia 30 Ml Oral.Susp) 30 ml PO DAILY PRN PRN Reason: Constipation Melatonin (Melatonin 3 Mg Tablet) 6 mg PO BEDTIME PRN PRN Reason: Insomnia Ondansetron HCl (Ondansetron Hcl 4 Mg/2 Ml Vial) 4 mg IVPUSH Q8H PRN PRN Reason: Nausea and Vomiting Pantoprazole Sodium (Pantoprazole Sodium 40 Mg/10 Ml Vial) 40 mg IVPUSH BID@0630,1630 [facility] Last Admin: 12/20/22 05:30 Dose: 40 mg Pharmacy Consult (Consult Rx Perform Med Rec) 1 each MISCELLANE ONCE PRN PRN Reason: Consult order Potassium Chloride (Potassium Chloride Er 10 Meq Tablet.Er) 10 meq PO DAILY [facility] Sodium Chloride (0.9 % Sodium Chloride Flush 3 Ml Syringe) 3 ml IVFLUSH QSHIFT [facility] Last Admin: 12/20/22 01:12 Dose: 3 ml Vitamin D (Cholecalciferol (Vitamin D3) 25 Mcg Tablet) 50 mcg PO DAILY [facility] Home Medications Medication Instructions Recorded Confirmed Last Taken Type blood-glucose meter #1 ea 05/14/20 04/30/21 Unknown History lancets #100 ea 05/14/20 04/30/21 Unknown History amlodipine 10 mg tablet 10 mg PO DAILY 12/19/22 12/19/22 Unknown History apixaban 2.5 mg tablet (Eliquis) 2.5 mg PO BID 12/19/22 12/19/22 Unknown History atorvastatin 40 mg tablet 40 mg PO DAILY 12/19/22 12/19/22 Unknown History calcitriol 0.25 mcg capsule 0.25 mcg PO Q2D 12/19/22 12/19/22 Unknown History chlorthalidone 25 mg tablet 25 mg PO DAILY 12/19/22 12/19/22 Unknown History cholecalciferol (vitamin D3) 50 50 mcg PO DAILY 12/19/22 12/19/22 Unknown History mcg (2,000 unit) capsule (Vitamin D3) dapagliflozin 10 mg tablet 10 mg PO DAILY 12/19/22 12/19/22 Unknown History (Farxiga) fluticasone propionate 50 1 spray intranasal DAILY 12/19/22 12/19/22 Unknown History mcg/actuation nasal spray,suspension hydroxyzine HCl 25 mg tablet 25 mg PO BID PRN anxiety 12/19/22 12/19/22 Unknown History lisinopril 40 mg tablet 40 mg PO DAILY 12/19/22 12/19/22 Unknown History potassium chloride 10 mEq 10 meq PO DAILY 12/19/22 12/19/22 Unknown History tablet,extended release Physical Exam Vital Signs: Vital Signs: Last Vital Signs Temp 98.9 F 12/20/22 03:09 Pulse 81 12/20/22 03:09 Resp 18 12/20/22 03:09 BP 175/79 H 12/20/22 03:09 Pulse Ox 93 12/20/22 03:09 O2 Del Method Nasal Cannula 12/20/22 03:09 O2 Flow Rate 3 12/20/22 03:09 BMI result Body Mass Index 32.2 EXAM: GENERAL: The patient is relaxed VITAL SIGNS:see workflow HEENT: Nonicteric sclerae, PERRLA, EOMI. Oropharynx clear. Moist mucous membranes. Conjunctivae appear well perfused. No thyroid mass. CHEST: Chest wall is nontender. HEART: Regular rate and rhythm without murmurs. LUNGS: Clear to auscultation bilaterally. ABDOMEN: Soft, positive bowel sounds, nontender, no organomegaly.no flank tenderness SKIN: No rash, no excessive bruising, petechiae, or purpura. NEUROLOGIC: Cranial nerves II-XII intact without motor/sensory deficit. Psych--nml affect Results Labs 12/19/22 12:11 12/19/22 12:11 Labs: Short CBC 12/19/22 Range/Units 12:11 WBC 6.2 (4.8-10.8) X10*3/uL Hgb 6.3 L* D (14.0-18.0) g/dl Hct 22.7 L D (42.0-52.0) % Plt Count 197 (160-400) X10*3/uL BMP 12/19/22 12:11 Sodium 141 Potassium 3.5 Chloride 108 Carbon Dioxide 26 BUN 49 H Creatinine 2.52 H Calcium 9.1 D Liver Function 12/19/22 Range/Units 12:11 Total Bilirubin 1.4 H (0.0-1.0) mg/dL AST 15 (5-37) U/L ALT 13 (0-40) U/L Alkaline Phosphatase 95 (39-117) U/L Albumin 3.7 (3.5-5.0) g/dL Urine 12/19/22 Range/Units 12:08 Urine Color Yellow Urine Appearance Clear Urine pH 7.0 (5.0-9.0) Ur Specific [place] 1.015 (1.005-1.025) Urine Protein Trace (Neg-Trace) mg/dL Urine Glucose (UA) >=1000 H (Negative) mg/dL Imaging Chest x-ray: Attestation: I personally reviewed and interpreted this imaging study as follows: (small pl effusions, congestion ) Assessment and Plan (1) Acute on chronic systolic (congestive) heart failure: Status: Acute (2) Anemia: Status: Acute (3) CKD (chronic kidney disease): Status: Acute Plan 1/ Acute on chronic HF exacerbated by anemia, which itself could be multifactorial from anemia of chronic disease, mucosal bleeding from eliquis or other GI lesion PLAN: 1/ EGD today, he wants to do o/p colonoscopy 2/ check ferritin, b12, folate and replenish if low Time Spent With Patient Time: Total time managing care of this patient today ____ minutes. Procedures Date of Service Date of Service: 12/21/22
[2022-12-20 06:42] LABS: Alanine Aminotransferase 12 U/L (0-40); Albumin Level 3.4 g/dL (3.5-5.0); Alkaline Phosphatase 93 U/L (39-117); Anion Gap 13 (12-20); Aspartate Amino Transferase 15 U/L (5-37); Bilirubin Total 3.7 mg/dL (0.0-1.0); Blood Urea Nitrogen 47 mg/dL (9-16); Carbon Dioxide 26 mmol/L (22-29); Chloride 107 mmol/L (96-108); Creatinine Clr Calc Pharmacy 32.4; Estimated Glomerular Filt Rate 27; Glucose Random 93 mg/dL (60-115); Potassium 3.6 mmol/L (3.3-5.1); Sodium 142 mmol/L (135-145)
--- NOTE | 2022-12-20 07:00 | CA_ITS ---
Transthoracic Echocardiogram Patient (Last, First, Middle): Ethan Cristina, Gender: Male Date of : 1950 Age: 72 Procedure Date: 12/20/2022 Procedure Type: Transthoracic Echocardiogram Location: [facility] Height: 160.02 cm Weight: 96.16 kg BSA: 1.98 m2 Heart Rate: 74 bpm BP: 175 / 79 mmHg Forging Roll Operator: SHANNAN Referring MD: Vivek Jaramillo MD Symptoms: heart failure Study Quality: Adequate/Contrast ECG Rhythm: Atrial Fibrillation Conclusions: - The left ventricular systolic function is normal. The calculated ejection fraction is 68% by biplane method. - There is moderately increased left ventricular wall thickness. - Severe biatrial enlargement. - There is mild mitral valve regurgitation. - There is mild tricuspid valve regurgitation. - Mild pulmonary hypertension is present. Findings Procedure Information Contrast agent, definity, is being given per protocol without apparent complications. Left Ventricle Normal left ventricular cavity size. There is moderately increased left ventricular wall thickness. The left ventricular systolic function is normal. The calculated ejection fraction is 68% by biplane method. There is no evidence of regional wall motion abnormalities. Diastolic function is indeterminate on the basis of available data. Right Ventricle Mildly increased right ventricular cavity size. There is mildly decreased right ventricular systolic function. Atria Severe biatrial enlargement. Aortic Valve There is mild calcification of the aortic valve. There is no aortic valve stenosis. There is no aortic valve regurgitation. Mitral Valve There is mild mitral annular calcification. There is mild mitral valve regurgitation. There is no mitral valve stenosis. Pulmonic Valve The pulmonic valve is likely normal. Tricuspid Valve There is mild tricuspid valve regurgitation. Mild pulmonary hypertension is present. Great Vessels The asc aorta is normal in size. Venous The inferior vena cava is normal in size and collapses greater than 50% with inspiration. Pericardium/Pleural There is a trivial pericardial effusion. Prior Study Comparison No significant change compared to prior study dated: 11/04/2019. Measurements 2D Linear Measurements IVSd: 1.24 0.6-0.9/0.6-1.0 cm LVIDd: 5.06 3.9-5.3/4.2-5.9 cm LVIDd Index: 2.56 2.4-3.2/2.2-3.1 cm/m2 LVIDs: 3.24 2.0-3.6 cm LVPWd: 1.32 0.7-1.1 cm LA Diam: 4.70 2.7-3.8/3.0-4.0 cm LAIDs Index: 2.37 1.5-2.3 cm/m2 LV Mass: 325.41 67-162/88-224 g LV Mass Index: 164.35 43-95/49-115 g/m2 LVOT Diam: 2.00 3.0+(-)1.3 cm 2D Systolic Function EF 4C: 62.60 >55% EF 2C: 71.40 >55% EF BiP: 67.90 >55% Mitral Valve MV Pk E: 1.32 MV Decel Time: 137.00 E'Lateral: 10.90 E'Medial: 9.36 E/E' Med: 14.10 E/E' Lat: 12.10 PHT: 40.00 MVA PHT: 5.50 Decel [place]: 9.69 Aortic Valve AoV Pk Urfus: 1.37 AoV Mn Rufus: 0.96 AoV VTI: 0.29 AoV Pk Grad: 8.00 Aov Mn Grad: 4.00 VIKTORIA Cont.VTI: 2.71 LVOT LVOT Pk Rufus: 1.28 LVOT Mn Rufus: 0.86 LVOT VTI: 0.25 LVOT Pk Grad: 7.00 LVOT Mn Grad: 3.00 LVOT Diam: 2.00 LVOT Area: 3.14 Diastolic Function MV Pk E: 1.32 E'Medial: 9.36 E/E' Med: 14.10 E' Laterial: 10.90 E/E' Lat: 12.10 Right Ventricle TAPSE (mm): 16.80 TVS' Rufus: 12.60 Tricuspid Valve TR Pk Rufus: 2.98 TR Pk Grad: 36.00 RA Press: 3.00 RVSP: 39.00 Great Vessels Aorta Sinus of Valsalva: 3.90 2.0-3.5 cm Ao Asc: 3.80 2.1-3.4 cm Pulmonary Valve PV Pk Rufus: 1.24 Peak PV Grad: 6.00 Updated in Other Vendor System with Status of Final Edinson Olivera MD electronically signed on 12/20/2022 10:31:17 AM with status of Final
[2022-12-20 07:23] LABS: Glucose, Whole Blood 96 mg/dL (60-115)
--- NOTE | 2022-12-20 07:26 | P.PNIM_ITS ---
Subjective Subjective Date of Service: 12/20/22 Interval History: Follow-up on heart failure Interval history:SOB is better, less swelling in the leg and overall feels more comfortable Review of Systems less sob, leg edam better Physical Exam Vital Signs: Vital Signs: Last Vital Signs Temp 98.9 F 12/20/22 03:09 Pulse 81 12/20/22 03:09 Resp 18 12/20/22 03:09 BP 175/79 H 12/20/22 03:09 Pulse Ox 93 12/20/22 03:09 O2 Del Method Nasal Cannula 12/20/22 03:09 O2 Flow Rate 3 12/20/22 03:09 BMI result Body Mass Index 32.2 Const: Other: General: AO X 3, no acute distress Resp: CTA bilateral CVS: S1,S2,RRR, 1+ pedal edema, about 2 to 3 yesterday GI: +BS, NT, no distention Skin: No rash Neuro: motor grossly intact Psych: appropriate affect Objective Data Active Medications Acetaminophen (Acetaminophen Supp 650 Mg Supp.Rect) 650 mg [place] Q6H PRN PRN Reason: Pain, Mild (Pain Scale 1-3) Amlodipine Besylate (Amlodipine Besylate 10 Mg Tablet) 10 mg PO DAILY [facility]; Protocol Atorvastatin Calcium (Atorvastatin Calcium 40 Mg Tablet) 40 mg PO DAILY [facility] Bumetanide (Bumetanide 1 Mg/4 Ml Vial) 1 mg IVPUSH BID@0900,1700 [facility]; Protocol Calcitriol (Calcitriol 0.25 Mcg Capsule) 0.25 mcg PO Q2D [facility] Glucose (Glucose Gel 15 Gm Gel..Gram.) 15 gm PO Q15M PRN; Protocol PRN Reason: per Hypoglycemia Standing Ord. Hydroxyzine HCl (Hydroxyzine Hcl 25 Mg Tablet) 25 mg PO BID PRN PRN Reason: anxiety Dextrose (D10) 250 mls @ 750 mls/hr IV Q15M PRN; Protocol PRN Reason: per Hypoglycemia Standing Ord. Insulin Human Lispro (Insulin Lispro 100 Unit/Ml 3 Ml Vial) 0 unit SUBCUT QIDACHS [facility]; Protocol Last Admin: 12/19/22 21:37 Dose: 2 unit Documented By: STEFFANIE Magnesium Hydroxide (Milk Of Magnesia 30 Ml Oral.Susp) 30 ml PO DAILY PRN PRN Reason: Constipation Melatonin (Melatonin 3 Mg Tablet) 6 mg PO BEDTIME PRN PRN Reason: Insomnia Ondansetron HCl (Ondansetron Hcl 4 Mg/2 Ml Vial) 4 mg IVPUSH Q8H PRN PRN Reason: Nausea and Vomiting Pantoprazole Sodium (Pantoprazole Sodium 40 Mg/10 Ml Vial) 40 mg IVPUSH BID@0630,1630 [facility] Last Admin: 12/20/22 05:30 Dose: 40 mg Documented By: STEFFANIE Pharmacy Consult (Consult Rx Perform Med Rec) 1 each MISCELLANE ONCE PRN PRN Reason: Consult order Potassium Chloride (Potassium Chloride Er 10 Meq Tablet.Er) 10 meq PO DAILY [facility] Sodium Chloride (0.9 % Sodium Chloride Flush 3 Ml Syringe) 3 ml IVFLUSH QSHIFT [facility] Last Admin: 12/20/22 01:12 Dose: 3 ml Documented By: STEFFANIE Vitamin D (Cholecalciferol (Vitamin D3) 25 Mcg Tablet) 50 mcg PO DAILY [facility] Labs 12/19/22 12:11 12/20/22 05:57 Labs: Laboratory Results - last 24 hr 12/19/22 12/19/22 12/19/22 12:08 12:09 12:11 MCV 73.7 L MCH 20.5 L MCHC 27.8 L RDW 18.4 H Plt Count 197 MPV 9.7 Immature Gran % (Auto) 0.3 Neut % (Auto) 82.5 H Lymph % (Auto) 9.2 L [place] % (Auto) 6.2 Eos % (Auto) 1.6 Baso % (Auto) 0.2 Lymph # (Auto) 0.6 L [place] # (Auto) 0.4 Eos # (Auto) 0.1 Baso # (Auto) 0.0 Abs Immat Gran (auto) 0.02 Absolute Neuts (auto) 5.1 Absolute Nucleated RBC 0.020 H Nucleated RBC % (auto) 0.3 H PT INR APTT Anion Gap Estim Creat Clear Calc Estimated GFR POC Glucose Random Glucose Calcium Magnesium Total Bilirubin AST ALT Alkaline Phosphatase Troponin I High Sens B-Natriuretic Peptide Total Protein Albumin Urine Color Yellow Urine Appearance Clear Urine pH 7.0 Ur Specific [place] 1.015 Urine Protein Trace Urine Glucose (UA) >=1000 H Urine Ketones Negative Urine Blood Negative Urine Nitrite Negative Ur Leukocyte Esterase Negative Urine RBC 0-2 Urine WBC 0-5 Ur Squamous Epith Cells 0-2 Urine Bacteria None Seen Hyaline Casts 0-2 Stool Occult Blood COVID-19 ([facility] MANUEL) Negative COVID-19 Clin Com See Note Blood Type Antibody Screen Crossmatch 12/19/22 12/19/22 12/19/22 12:11 12:11 12:11 MCV MCH MCHC RDW Plt Count MPV Immature Gran % (Auto) Neut % (Auto) Lymph % (Auto) [place] % (Auto) Eos % (Auto) Baso % (Auto) Lymph # (Auto) [place] # (Auto) Eos # (Auto) Baso # (Auto) Abs Immat Gran (auto) Absolute Neuts (auto) Absolute Nucleated RBC Nucleated RBC % (auto) PT INR APTT Anion Gap 11 L Estim Creat Clear Calc 30.6 Estimated GFR 25 POC Glucose Random Glucose 123 H Calcium 9.1 D Magnesium 2.3 Total Bilirubin 1.4 H AST 15 ALT 13 Alkaline Phosphatase 95 Troponin I High Sens 25.9 B-Natriuretic Peptide 559 H Total Protein 6.5 Albumin 3.7 Urine Color Urine Appearance Urine pH Ur Specific [place] Urine Protein Urine Glucose (UA) Urine Ketones Urine Blood Urine Nitrite Ur Leukocyte Esterase Urine RBC Urine WBC Ur Squamous Epith Cells Urine Bacteria Hyaline Casts Stool Occult Blood COVID-19 ([facility] MANUEL) COVID-19 Clin Com Blood Type Antibody Screen Crossmatch 12/19/22 12/19/22 12/19/22 12:48 12:49 16:54 MCV MCH MCHC RDW Plt Count MPV Immature Gran % (Auto) Neut % (Auto) Lymph % (Auto) [place] % (Auto) Eos % (Auto) Baso % (Auto) Lymph # (Auto) [place] # (Auto) Eos # (Auto) Baso # (Auto) Abs Immat Gran (auto) Absolute Neuts (auto) Absolute Nucleated RBC Nucleated RBC % (auto) PT 17.0 H INR 1.5 H APTT 32.1 Anion Gap Estim Creat Clear Calc Estimated GFR POC Glucose Random Glucose Calcium Magnesium Total Bilirubin AST ALT Alkaline Phosphatase Troponin I High Sens B-Natriuretic Peptide Total Protein Albumin Urine Color Urine Appearance Urine pH Ur Specific [place] Urine Protein Urine Glucose (UA) Urine Ketones Urine Blood Urine Nitrite Ur Leukocyte Esterase Urine RBC Urine WBC Ur Squamous Epith Cells Urine Bacteria Hyaline Casts Stool Occult Blood POSITIVE COVID-19 ([facility] MANUEL) COVID-19 Clin Com Blood Type B Positive Antibody Screen NEGATIVE Crossmatch See Detail 12/19/22 12/19/22 12/20/22 18:58 21:22 05:57 MCV MCH MCHC RDW Plt Count MPV Immature Gran % (Auto) Neut % (Auto) Lymph % (Auto) [place] % (Auto) Eos % (Auto) Baso % (Auto) Lymph # (Auto) [place] # (Auto) Eos # (Auto) Baso # (Auto) Abs Immat Gran (auto) Absolute Neuts (auto) Absolute Nucleated RBC Nucleated RBC % (auto) PT INR APTT Anion Gap 13 Estim Creat Clear Calc 32.4 Estimated GFR 27 POC Glucose 108 168 H Random Glucose 93 Calcium 9.0 Magnesium Total Bilirubin 3.7 H AST 15 ALT 12 Alkaline Phosphatase 93 Troponin I High Sens B-Natriuretic Peptide Total Protein 6.0 L Albumin 3.4 L Urine Color Urine Appearance Urine pH Ur Specific [place] Urine Protein Urine Glucose (UA) Urine Ketones Urine Blood Urine Nitrite Ur Leukocyte Esterase Urine RBC Urine WBC Ur Squamous Epith Cells Urine Bacteria Hyaline Casts Stool Occult Blood COVID-19 ([facility] MANUEL) COVID-[employer] Blood Type Antibody Screen Crossmatch 12/20/22 07:06 MCV MCH MCHC RDW Plt Count MPV Immature Gran % (Auto) Neut % (Auto) Lymph % (Auto) [place] % (Auto) Eos % (Auto) Baso % (Auto) Lymph # (Auto) [place] # (Auto) Eos # (Auto) Baso # (Auto) Abs Immat Gran (auto) Absolute Neuts (auto) Absolute Nucleated RBC Nucleated RBC % (auto) PT INR APTT Anion Gap Estim Creat Clear Calc Estimated GFR POC Glucose 96 Random Glucose Calcium Magnesium Total Bilirubin AST ALT Alkaline Phosphatase Troponin I High Sens B-Natriuretic Peptide Total Protein Albumin Urine Color Urine Appearance Urine pH Ur Specific [place] Urine Protein Urine Glucose (UA) Urine Ketones Urine Blood Urine Nitrite Ur Leukocyte Esterase Urine RBC Urine WBC Ur Squamous Epith Cells Urine Bacteria Hyaline Casts Stool Occult Blood COVID-19 ([facility] MANUEL) COVID-19 [employer] Blood Type Antibody Screen Crossmatch Assessment and Plan (1) Acute exacerbation of congestive heart failure: Status: Acute (2) Acute blood loss anemia: Status: Acute (3) CKD (chronic kidney disease): Status: Acute (4) Diabetes: Status: Acute Plan 70-year-old male with a past medical history of atrial fibrillation chronically on Eliquis, HLD,? CKD, hypertension, last Echo EF Sep 2020 at [facility] EF of 35 to 40%, presenting with? shortness of breath and increase leg edema and found be acute exacerbation of heart failure and acute blood loss anemia with + hemocult. 1/ FRANCIS d/t heart failure and Symptomatic anemia -Treat underlying issues 2/Acute hypoxic resipratory failure d/t above--better -Oxygen and address? unlying issues as above 3/Acute on chronic systolic heart failure--likely precipitated by high output heart failure from anemia -IV diuretics (given Bumex) in ED, continue at 1 mg bid -get echo, last one in 2020 with EF 35 to 40 -Cardiology eval -Monitor I/O and weigh, limit salt -Heart failure education Acute Blood loss anemia, +hemocult -Transuse 2 units - Serial H/H -IV PPI -GI to assess for EGD+/-colonoscopy--Dr. Fernandez aware -NPO until GI eval -hold Eliquis 4/Permanent AFIB on Eliquis -Obviously hold Eliquis --No rate control agents on his med list (HR presently around 60) 5/HTN--Hold chlorthalidone and Norvasc (maybe contribututing to leg edema), continue Lisinopril 40 daily 6/HLD-- Statin 7/Diabetes--on [place] -SSI DVT--compression device Need for inpatient: treatment acute heart failure with IV diuretics and monitor for response, acute blood loss anemiaon eliquis and will need work up Full code Time Spent With Patient Time: Total time managing care of this patient today ____ minutes. Quality Stroke Does the patient have a stroke diagnosis?: No VTE Prior VTE?: No VTE Risk Level:: Medical - moderate - high VTE Device Contraindication: N/A - Device Ordered VTE Drug Contraindication: Treatment Not Tolerated
--- NOTE | 2022-12-20 07:35 | PHA.MEDREC ---
Pharmacy Consult ? Medication Reconciliation Pharmacy has completed the medication reconciliation.
[2022-12-20 08:00] LABS: Hematocrit 23.8 % (42.0-52.0); Mean Corpuscular Hemoglobin 21.2 pg (27.0-33.0); Mean Platelet Volume 9.5 fL (9.4-12.4); NRBC Pct Auto 0.2 /100WBC (0.0-0.2); Platelet Count 202 X10*3/uL (160-400); Red Blood Count 3.26 X10*6/uL (4.60-5.80); White Blood Count 8.6 X10*3/uL (4.8-10.8)
[2022-12-20 08:16] LABS: Hemoglobin 6.9 g/dl (14.0-18.0)
--- NOTE | 2022-12-20 08:26 | PC.NURSE ---
[employer] came to this nurse and stated pt wants to leave today . pt has a critical Hgb of 6.9 - this nurse and spoke to pt, trying to get an understanding why pt wants to leave. this nurse try to educate pt on the understanding on low hgb and pt does not want to hear it. I want to leave. i'm just sitting here doing nothing MD notified.
--- NOTE | 2022-12-20 09:26 | P.CONCA_ITS ---
History of Present Illness History of Present Illness Date of Service: 12/20/22 Chief complaint: Heart failure, GIB and anemia Narrative: This is a cardiology consultation regarding congestive heart failure. Patient has history of atrial fibrillation on Eliquis, hypertension, hyperlipidemia, chronic kidney disease and known cardiomyopathy with mentioned EF of 35-40% presenting for shortness of breath and leg swelling. After arrival, workup at showed a significant anemia with hemoglobin of 6.3. He was then admitted for further workup. It seems that stool guaiac was positive in the ER. He apparently got IV diuretics. Today states that much better. He is no longer complaining of any shortness of breath. Leg swelling is also much improved. Patient denies any history of coronary artery disease or myocardial infarction in the past. He states that he really does not follow-up with cardiology. Review of Systems Review of Systems: Yes all other systems are reviewed and are negative Constitutional: Constitutional: Reports as per HPI and Reports no additional constitutional complaints Eyes: Eyes: Reports as per HPI and Denies no additional eye complaints ENT: Denies system reviewed and no additional complaints, except as documented and Reports as per HPI Cardiovascular: Cardiovascular: Reports as per HPI, Reports no additional cardiovascular complaints, Denies acrocyanosis, Denies cool extremities, Denies chest pain, Reports leg edema, Denies lightheadedness, Denies palpitations and Reports dyspnea Respiratory: Respiratory: Reports as per HPI, Denies no additional respiratory complaints and Reports dyspnea Gastrointestinal: Gastrointestinal: Reports as per HPI and Denies no additio nal gastrointestinal complaints Genitourinary: Genitourinary: Reports no additional male genitourinary complaints and Reports as per HPI Musculoskeletal: Musculoskeletal: Reports no additional musculoskeletal complaints and Reports as per HPI Integumentary/Breasts: Skin/Breast: Reports system reviewed and no additional complaints, except as docu Neurologic: Reports system reviewed and no additional complaints, except as documented and Reports as per HPI Psychiatric: Psychiatric: Reports no additional psychiatric complaints and Reports as per HPI Endocrine: Endocrine: Reports no additional endocrine complaints, Reports as per HPI and Denies palpitations Hematologic/Lymphatic: Hematologic/Lymphatic: Reports no additional hematologic/lymphatic complaints and Reports as per HPI Allergic/Immunologic: Allergic/Immunologic: Reports no additional allergic/immunologic complaints and Reports as per HPI [facility] Past Medical History Medical History (Updated 12/20/22 @ 09:30 by Edinson Olivera MD) Chronic atrial fibrillation CKD (chronic kidney disease) Depression Diabetes Former smoker High cholesterol Hypertension Family History Family History Father No problems noted. Mother Diabetes Hypertension Cancer Son No problems noted. Son No problems noted. Son No problems noted. Daughter No problems noted. Daughter No problems noted. Surgical History Surgical History History of aneurysm History of shoulder surgery Social History Social History Household Members: Spouse Household Members Other:: Housing: Apartment Do you presently have visiting nurse or other home services: No Alcohol intake: never Patient Tobacco Use Status: Never used Tobacco Smoked in Last 30 Days: No Use of substances other than those prescribed or required for medical reasons: No Currently Displaying Signs/Symptoms of Drug Intoxication Withdrawal: No Have you been hit, kicked, punched, or otherwise hurt by someone within the past year? If so, by whom?: No Do you feel safe in your current relationship?: No Is there a partner from a previous relationship who is making you feel unsafe now?: No Are you made to feel afraid or neglected: No Spiritual Healthcare Practices: N/A Rastafari Healthcare Practices: Pentecostal Cultural Healthcare Practices: N/A Advance Directives: No Advance Directives Information Provided: Yes Do you have thoughts of harming others: None Do you have a plan to hurt others: No Plan Recently lost weight without trying: No Nutrition Risks: No Nutritional Risk Poor oral hygiene: No Meds Allergies Allergy/AdvReac Type Severity Reaction Status Date / Time No Known Allergies Allergy Verified 04/15/21 20:25 [No Known Allergies*] Active Medications: Current Medications Acetaminophen (Acetaminophen Supp 650 Mg Supp.Rect) 650 mg MN Q6H PRN PRN Reason: Pain, Mild (Pain Scale 1-3) Atorvastatin Calcium (Atorvastatin Calcium 40 Mg Tablet) 40 mg PO DAILY SHAUNNA Bumetanide (Bumetanide 1 Mg/4 Ml Vial) 1 mg IVPUSH BID@0900,1700 SHAUNNA; Protocol Calcitriol (Calcitriol 0.25 Mcg Capsule) 0.25 mcg PO Q2D SHAUNNA Glucose (Glucose Gel 15 Gm Gel..Gram.) 15 gm PO Q15M PRN; Protocol PRN Reason: per Hypoglycemia Standing Ord. Hydroxyzine HCl (Hydroxyzine Hcl 25 Mg Tablet) 25 mg PO BID PRN PRN Reason: anxiety Dextrose (D10) 250 mls @ 750 mls/hr IV Q15M PRN; Protocol PRN Reason: per Hypoglycemia Standing Ord. Insulin Human Lispro (Insulin Lispro 100 Unit/Ml 3 Ml Vial) 0 unit SUBCUT QIDACHS [facility]; Protocol Last Admin: 12/20/22 07:30 Dose: Not Given Lisinopril (Lisinopril 40 Mg Tablet) 40 mg PO DAILY [facility]; Protocol Magnesium Hydroxide (Milk Of Magnesia 30 Ml Oral.Susp) 30 ml PO DAILY PRN PRN Reason: Constipation Melatonin (Melatonin 3 Mg Tablet) 6 mg PO BEDTIME PRN PRN Reason: Insomnia Ondansetron HCl (Ondansetron Hcl 4 Mg/2 Ml Vial) 4 mg IVPUSH Q8H PRN PRN Reason: Nausea and Vomiting Pantoprazole Sodium (Pantoprazole Sodium 40 Mg/10 Ml Vial) 40 mg IVPUSH BID@0630,1630 [facility] Last Admin: 12/20/22 05:30 Dose: 40 mg Pharmacy Consult (Consult Rx Perform Med Rec) 1 each MISCELLANE ONCE PRN PRN Reason: Consult order Potassium Chloride (Potassium Chloride Er 10 Meq Tablet.Er) 10 meq PO DAILY [facility] Sodium Chloride (0.9 % Sodium Chloride Flush 3 Ml Syringe) 3 ml IVFLUSH QSHIFT [facility] Last Admin: 12/20/22 01:12 Dose: 3 ml Vitamin D (Cholecalciferol (Vitamin D3) 25 Mcg Tablet) 50 mcg PO DAILY [facility] Home Medications Medication Instructions Recorded Confirmed Last Taken Type blood-glucose meter #1 ea 05/14/20 04/30/21 Unknown History lancets #100 ea 05/14/20 04/30/21 Unknown History amlodipine 10 mg tablet 10 mg PO DAILY 12/19/22 12/19/22 Unknown History apixaban 2.5 mg tablet (Eliquis) 2.5 mg PO BID 12/19/22 12/19/22 Unknown History atorvastatin 40 mg tablet 40 mg PO DAILY 12/19/22 12/19/22 Unknown History calcitriol 0.25 mcg capsule 0.25 mcg PO Q2D 12/19/22 12/19/22 Unknown History chlorthalidone 25 mg tablet 25 mg PO DAILY 12/19/22 12/19/22 Unknown History cholecalciferol (vitamin D3) 50 50 mcg PO DAILY 12/19/22 12/19/22 Unknown History mcg (2,000 unit) capsule (Vitamin D3) dapagliflozin 10 mg tablet 10 mg PO DAILY 12/19/22 12/19/22 Unknown History ([facility]) fluticasone propionate 50 1 spray intranasal DAILY 12/19/22 12/19/22 Unknown History mcg/actuation nasal spray,suspension hydroxyzine HCl 25 mg tablet 25 mg PO BID PRN anxiety 12/19/22 12/19/22 Unknown History lisinopril 40 mg tablet 40 mg PO DAILY 12/19/22 12/19/22 Unknown History potassium chloride 10 mEq 10 meq PO DAILY 12/19/22 12/19/22 Unknown History tablet,extended release Physical Exam Vital Signs: Vital Signs: Last Vital Signs Temp 98.6 F 12/20/22 07:40 Pulse 79 12/20/22 07:40 Resp 18 12/20/22 07:40 BP 172/81 H 12/20/22 07:40 Pulse Ox 96 12/20/22 07:40 O2 Del Method Nasal Cannula 12/20/22 07:40 O2 Flow Rate 3 12/20/22 07:40 BMI result Body Mass Index 32.2 Const: General: comfortable and no acute distress Orientation/consciousness: patient oriented x3 HEENT: Other: Unremarkable Head: Yes normal to inspection Neck: Neck: Yes normal visual inspection Chest: Chest palpation & inspection: normal inspection of the chest Resp: Other: minimal crackles Cardio: Palpation: normal PMI Heart sounds: S1 normal heart sound present, S2 normal heart sound present, no gallops, no murmurs and no rubs GI: Palpation (GI): Soft to palpation Back/Spine/Pelvis: Other: unremarkable Skin: General skin exam: no rashes or lesions noted Neuro: General: patient oriented x3 Extrem: General: Yes normal to inspection Psych: Mental Status: mental status grossly normal Objective Labs and Meds 12/20/22 05:57 12/20/22 05:57 Lab results: Laboratory Results - last 24 hr 12/19/22 12/19/22 12/19/22 12:08 12:09 12:11 WBC 6.2 RBC 3.08 L D Hgb 6.3 L* D Hct 22.7 L D MCV 73.7 L MCH 20.5 L MCHC 27.8 L RDW 18.4 H Plt Count 197 MPV 9.7 Immature Gran % (Auto) 0.3 Neut % (Auto) 82.5 H Lymph % (Auto) 9.2 L Perry % (Auto) 6.2 Eos % (Auto) 1.6 Baso % (Auto) 0.2 Lymph # (Auto) 0.6 L Perry # (Auto) 0.4 Eos # (Auto) 0.1 Baso # (Auto) 0.0 Abs Immat Gran (auto) 0.02 Absolute Neuts (auto) 5.1 Absolute Nucleated RBC 0.020 H Nucleated RBC % (auto) 0.3 H PT INR APTT Sodium Potassium Chloride Carbon Dioxide Anion Gap BUN Creatinine Estim Creat Clear Calc Estimated GFR POC Glucose Random Glucose Calcium Magnesium Total Bilirubin AST ALT Alkaline Phosphatase Troponin I High Sens B-Natriuretic Peptide Total Protein Albumin Urine Color Yellow Urine Appearance Clear Urine pH 7.0 Ur Specific [place] 1.015 Urine Protein Trace Urine Glucose (UA) >=1000 H Urine Ketones Negative Urine Blood Negative Urine Nitrite Negative Ur Leukocyte Esterase Negative Urine RBC 0-2 Urine WBC 0-5 Ur Squamous Epith Cells 0-2 Urine Bacteria None Seen Hyaline Casts 0-2 Stool Occult Blood COVID-19 ([facility]) Negative COVID-19 Clin Com See Note Blood Type Antibody Screen Crossmatch 12/19/22 12/19/22 12/19/22 12:11 12:11 12:11 WBC RBC Hgb Hct MCV MCH MCHC RDW Plt Count MPV Immature Gran % (Auto) Neut % (Auto) Lymph % (Auto) [place] % (Auto) Eos % (Auto) Baso % (Auto) Lymph # (Auto) Perry # (Auto) Eos # (Auto) Baso # (Auto) Abs Immat Gran (auto) Absolute Neuts (auto) Absolute Nucleated RBC Nucleated RBC % (auto) PT INR APTT Sodium 141 Potassium 3.5 Chloride 108 Carbon Dioxide 26 Anion Gap 11 L BUN 49 H Creatinine 2.52 H Estim Creat Clear Calc 30.6 Estimated GFR 25 POC Glucose Random Glucose 123 H Calcium 9.1 D Magnesium 2.3 Total Bilirubin 1.4 H AST 15 ALT 13 Alkaline Phosphatase 95 Troponin I High Sens 25.9 B-Natriuretic Peptide 559 H Total Protein 6.5 Albumin 3.7 Urine Color Urine Appearance Urine pH Ur Specific [place] Urine Protein Urine Glucose (UA) Urine Ketones Urine Blood Urine Nitrite Ur Leukocyte Esterase Urine RBC Urine WBC Ur Squamous Epith Cells Urine Bacteria Hyaline Casts Stool Occult Blood COVID-19 ([facility]) COVID-19 [facility] Blood Type Antibody Screen Crossmatch 12/19/22 12/19/22 12/19/22 12:48 12:49 16:54 WBC RBC Hgb Hct MCV MCH MCHC RDW Plt Count MPV Immature Gran % (Auto) Neut % (Auto) Lymph % (Auto) [place] % (Auto) Eos % (Auto) Baso % (Auto) Lymph # (Auto) [place] # (Auto) Eos # (Auto) Baso # (Auto) Abs Immat Gran (auto) Absolute Neuts (auto) Absolute Nucleated RBC Nucleated RBC % (auto) PT 17.0 H INR 1.5 H APTT 32.1 Sodium Potassium Chloride Carbon Dioxide Anion Gap BUN Creatinine Estim Creat Clear Calc Estimated GFR POC Glucose Random Glucose Calcium Magnesium Total Bilirubin AST ALT Alkaline Phosphatase Troponin I High Sens B-Natriuretic Peptide Total Protein Albumin Urine Color Urine Appearance Urine pH Ur Specific [place] Urine Protein Urine Glucose (UA) Urine Ketones Urine Blood Urine Nitrite Ur Leukocyte Esterase Urine RBC Urine WBC Ur Squamous Epith Cells Urine Bacteria Hyaline Casts Stool Occult Blood POSITIVE COVID-19 ([facility]) COVID-19 [facility] Blood Type B Positive Antibody Screen NEGATIVE Crossmatch See Detail 12/19/22 12/19/22 12/20/22 18:58 21:22 05:57 WBC RBC Hgb Hct MCV MCH MCHC RDW Plt Count MPV Immature Gran % (Auto) Neut % (Auto) Lymph % (Auto) [place] % (Auto) Eos % (Auto) Baso % (Auto) Lymph # (Auto) Perry # (Auto) Eos # (Auto) Baso # (Auto) Abs Immat Gran (auto) Absolute Neuts (auto) Absolute Nucleated RBC Nucleated RBC % (auto) PT INR APTT Sodium 142 Potassium 3.6 Chloride 107 Carbon Dioxide 26 Anion Gap 13 BUN 47 H Creatinine 2.38 H Estim Creat Clear Calc 32.4 Estimated GFR 27 POC Glucose 108 168 H Random Glucose 93 Calcium 9.0 Magnesium Total Bilirubin 3.7 H AST 15 ALT 12 Alkaline Phosphatase 93 Troponin I High Sens B-Natriuretic Peptide Total Protein 6.0 L Albumin 3.4 L Urine Color Urine Appearance Urine pH Ur Specific [place] Urine Protein Urine Glucose (UA) Urine Ketones Urine Blood Urine Nitrite Ur Leukocyte Esterase Urine RBC Urine WBC Ur Squamous Epith Cells Urine Bacteria Hyaline Casts Stool Occult Blood COVID-19 ([facility]) COVID-19 [facility] Com Blood Type Antibody Screen Crossmatch 12/20/22 12/20/22 05:57 07:06 WBC 8.6 RBC 3.26 L Hgb 6.9 L* Hct 23.8 L MCV 73.0 L MCH 21.2 L MCHC 29.0 L RDW 18.0 H Plt Count 202 MPV 9.5 Immature Gran % (Auto) Neut % (Auto) Lymph % (Auto) [place] % (Auto) Eos % (Auto) Baso % (Auto) Lymph # (Auto) [place] # (Auto) Eos # (Auto) Baso # (Auto) Abs Immat Gran (auto) Absolute Neuts (auto) Absolute Nucleated RBC 0.020 H Nucleated RBC % (auto) 0.2 PT INR APTT Sodium Potassium Chloride Carbon Dioxide Anion Gap BUN Creatinine Estim Creat Clear Calc Estimated GFR POC Glucose 96 Random Glucose Calcium Magnesium Total Bilirubin AST ALT Alkaline Phosphatase Troponin I High Sens B-Natriuretic Peptide Total Protein Albumin Urine Color Urine Appearance Urine pH Ur Specific [place] Urine Protein Urine Glucose (UA) Urine Ketones Urine Blood Urine Nitrite Ur Leukocyte Esterase Urine RBC Urine WBC Ur Squamous Epith Cells Urine Bacteria Hyaline Casts Stool Occult Blood COVID-19 ([facility]) COVID-19 [facility] Blood Type Antibody Screen Crossmatch ECG Interpretation: EKG with atrial fibrillation rate of 62/Min. Nonspecific ST-T changes. Could reflect left ventricular hypertrophy. Imaging Radiologist's impression: Impressions Chest X-Ray 12/19/22 12:55 IMPRESSION: CHF. Assessment and Plan (1) Acute on chronic systolic (congestive) heart failure: Status: Acute (2) Chronic atrial fibrillation: Status: Acute (3) Hypertension: Qualifiers: Hypertension type: unspecified Qualified Code(s): I10 - Essential (primary) hypertension Status: Acute (4) CKD (chronic kidney disease): Status: Acute (5) Anemia: Status: Acute Plan Labs reviewed. Hemoglobin 6.3 yesterday. 6.9 today. Not entirely clear if he actually had any transfusions. Will check with hospitalist service. Previously, hemoglobin is where around 10 few months back. Also, with regard to cardiac function, listed to be 35-40% but do not have any prior echocardiograms. Overall, his severe anemia could be a precipitating factor for acute on chronic heart failure with pre-existing LV dysfunction. Ideally, anemia should be corrected. IV diuretics but he already seems improved since the time of arrival per description. He is being continued on Bumex IV b.i.d.. There is acceptable. Will need to monitor kidney function as he already has high BUN creatinine. Otherwise, anticoagulation is on hold appropriately. GI workup pending. Will follow with you. Discussed with Dr. Jaramillo. With regard to GI workup, may proceed but he will need to have his anemia appropriately corrected by transfusions before procedures. Time Spent With Patient Time: Total time managing care of this patient today ____ minutes. Procedures Date of Service Date of Service: 12/20/22
--- NOTE | 2022-12-20 09:35 | MHC.CM.PN ---
Patient was unavailable; CM spoke with Daughter/HCP/Esha @ [phone] and addressed IMM with her (original will be mailed certified letter to Esha and a copy has been placed on the chart for Patient's review PRN). 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 Home/self care is the goal and CM has initiated and will follow for dc planning. Patient has received covid vax x3 and his PCP is from [facility].
[2022-12-20] MEDS: Atorvastatin Calcium 40 MG TABLET PO (09:58)
[2022-12-20] MEDS: Bumetanide 1 MG/4 ML VIAL IVPUSH ×2 (09:58→17:17)
[2022-12-20] MEDS: Potassium Chloride ER 10 MEQ TABLET.ER PO (09:58)
[2022-12-20] MEDS: lisinopriL 40 MG TABLET PO (09:58)
[2022-12-20] MEDS: Cholecalciferol (Vitamin D3) 25 MCG TABLET 50 MCG PO (09:58)
[2022-12-20 11:13] LABS: Glucose, Whole Blood 101 mg/dL (60-115)
--- NOTE | 2022-12-20 14:11 | PC.NURSE ---
elevated BP of 197/77. pt asymptomatic. MD notified. blood held per .
[2022-12-20 16:06] LABS: Glucose, Whole Blood 96 mg/dL (60-115)
[2022-12-20 19:42] LABS: Glucose, Whole Blood 94 mg/dL (60-115)
[2022-12-21] VITALS (12 sets, daily range): BP systolic 120–191; BP diastolic 50–88; PULSE 59–87; RESP 16–20; TEMP 36.2–36.9; O2SAT 90–97
[2022-12-21] MEDS: Pantoprazole Sodium 40 MG/10 ML VIAL IVPUSH (05:30)
[2022-12-21 07:16] LABS: Glucose, Whole Blood 84 mg/dL (60-115)
[2022-12-21] MEDS: PEG 3350/Na Sulf,Bicarb,Cl/KCL 4,000 ML SOLN.RECON 4000 ML PO (08:00)
[2022-12-21] MEDS: lisinopriL 40 MG TABLET PO (08:13)
[2022-12-21] MEDS: Bumetanide 1 MG/4 ML VIAL IVPUSH (08:13)
[2022-12-21] MEDS: Potassium Chloride ER 10 MEQ TABLET.ER PO (08:13)
[2022-12-21] MEDS: Atorvastatin Calcium 40 MG TABLET PO (08:13)
[2022-12-21] MEDS: Cholecalciferol (Vitamin D3) 25 MCG TABLET 50 MCG PO (08:13)
[2022-12-21] MEDS: bisacodyL 5 MG TABLET.DR 10 MG PO (08:14)
[2022-12-21] MEDS: 0.9 % Sodium Chloride Flush 3 ML SYRINGE IVFLUSH ×2 (08:14→15:13)
[2022-12-21] MEDS: calcitrioL 0.25 MCG CAPSULE PO (08:18)
--- NOTE | 2022-12-21 08:59 | P.CDIM_ITS ---
PROVIDER RESPONSE TEXT: To clarify, the appropriate diagnosis supported by the clinical indicators: CKD QUERY TEXT: PHYSICIAN'S DOCUMENTATION REQUEST Date of Query: 12/20/2022 01:06 PM EDT Patient Name: Ethan Cristina Admit Date: 12/19/2022 Dear Vivek Jaramillo, A review of the medical record indicates additional documentation may be needed. Please review below and update the documentation accordingly. Clinical Indicators: BUN 47 Creatinine 2.38 EST GFR 27 PMH: CKD per H&P Please clarify which of the following accurately represents the patient's renal status: CKD Please specify stage 1-4 Other, please specify Unable to determine Other (explain) Clinically unable to determine (explain) Thank you, Sadia Cruz RN Use of terms such as suspected, likely, concern for, or probable (associated with a specific diagnosi s that is being evaluated, monitored, or treated as if it exists) are acceptable and can be coded in the inpatient se tting, when documented at the time of discharge. Please use your independent medical judgment in providing your response. THIS QUERY IS PART OF THE PERMANENT MEDICAL RECORD
[2022-12-21 09:30] LABS: Hematocrit 34.8 % (42.0-52.0); Hemoglobin 10.6 g/dl (14.0-18.0); Mean Corpuscular HGB Conc 30.5 g/dl (31.0-36.0); Mean Corpuscular Hemoglobin 23.1 pg (27.0-33.0); Mean Corpuscular Volume 75.8 fL (80.0-98.0); Mean Platelet Volume 9.1 fL (9.4-12.4); NRBC Pct Auto 0.3 /100WBC (0.0-0.2); Platelet Count 205 X10*3/uL (160-400); Red Blood Count 4.59 X10*6/uL (4.60-5.80); Red Cell Distribution Width 20.2 % (11.0-16.0); White Blood Count 7.6 X10*3/uL (4.8-10.8)
[2022-12-21] MEDS: amLODIPine Besylate 10 MG TABLET PO (10:19)
--- NOTE | 2022-12-21 10:55 | P.DS_ITS ---
DS: Providers Provider Date of Service: 12/21/22 Date of admission: 12/19/22 18:29 Primary care physician: Unknown Physician Consults: 12/19/22 17:52 Consult to Gastroenterology Routine Consulting Provider: Duran Fernandez Reason for consultation: Acute blood loss anemia , positive occult blood on Eliquis Has provider been notified: Yes 12/19/22 18:29 Consult to Cardiology Routine Consulting [place] [facility] [place] [facility] Reason for consultation: acute heart failure, Has provider been notified: Yes DS: Diagnosis Discharge Diagnosis (1) Acute on chronic systolic (congestive) heart failure: Status: Resolved (2) Chronic atrial fibrillation: Status: Acute (3) Hypertension: Status: Inactive (4) CKD (chronic kidney disease): Status: Inactive (5) Anemia: Status: Resolved DS: Summary Hospital Course Hospital Course: Chief Complaint: Shortness of breath and swelling in the legs. 72-year-old male with a past medical history of atrial fibrillation chronically on Eliquis, HLD,? CKD, hypertension, reported EF at [facility] of 35 to 40% presenting with? shortness of breath and increase leg edema. He had been seen outpatient clinic because because increase leg edam and dyspnea on exertion. He states that he has had swelling in the leg in the past but not much but over the last 2 days the swelling has markedly increase and dyspnea with exertion is worsening. He can lay down flat on bed so he has been sleeping in the recliner in the living room, he has gained unspecified amount of weight. He was sent to the ED to be further evaluated.? Work up in the ED CXR finding of CHF, BNP of 5 59, nl troponin, and significantly anemic with hemoglobin of 6.3 but denies melena or hematochezia. O2 sat of 89% on room air.? No chest pain. But dizziness. +PND and Orthopnea.? He is type and screen and is being given RBC.?? Guaiac positive on exam (by ED providr). He's received Bumex 2 mg IV and voiding quite a bit. Hospital course: 1/ FRANCIS likely heart failure and Symptomatic anemia--this has resolved with and a treatment of the underlying problem. 2/Acute hypoxic resipratory failure d/t above--resolved with treatment of underlying problems of heart failure and correction of anemia 3/Acute on chronic systolic heart failure--likely precipitated by high output heart failure from anemia. As of 2020 his ejection fraction was 35-40% guarding to [facility] record. He had marked leg edema and presented. Following diuretics with IV Bumex, his leg edema has significantly reduced and his shortness of breath markedly improved. Hypoxia has resolved. An echocardiogram was performed again and this time his ejection fraction is estimated to be around 68%. Will continue previous dose of home diuretic does. He was seen by Cardiology Dr. Olivera and to continue to follow up on outpatient basis Acute Blood loss anemia, +hemocult, was transfused a total of 3 units of RBC with good effect. He presented with a hematocrit of 22 and now 36. Hemoglobin was 6 down 10 he is not having any active bleeding Eliquis was on hold while in the hospital. He underwent EGD and colonoscopy on 12/21/2022 by . Has signed with the following findings and recommendation. 4/Permanent AFIB on Eliquis -Obviously hold Eliquis --No rate control agents on his med list (HR presently around 60) 5/HTN--Hold chlorthalidone and Norvasc (maybe contribututing to leg edema), continue Lisinopril 40 daily 6/HLD-- Statin 7/Diabetes--on [facility] Time Spent with Patient Time attestation: Total time managing care of this patient today ____ minutes. Discharge coordination time: Greater than 30 minutes Quality: Safe Use of Opioids Does Pt have an Active Cancer Diagnosis on the Problem List?: No Quality: Stroke Does the patient have a stroke diagnosis?: No Physical Exam Vital Signs: Vital Signs: Last Vital Signs Temp 98.1 F 12/21/22 07:31 Pulse 77 12/21/22 07:31 Resp 20 12/21/22 07:31 BP 170/80 H 12/21/22 07:55 Pulse Ox 97 12/21/22 07:31 O2 Del Method Room Air 12/21/22 07:31 O2 Flow Rate 3 12/20/22 11:16 BMI result Body Mass Index 32.2 DS: Data Data Completed and Pending Labs on day of discharge: Laboratory Results - last 24 hr 12/19/22 12/20/22 12/20/22 12:48 11:05 15:59 WBC RBC Hgb Hct MCV MCH MCHC RDW Plt Count MPV Absolute Nucleated RBC Nucleated RBC % (auto) POC Glucose 101 96 Blood Type B Positive Antibody Screen NEGATIVE Crossmatch See Detail 12/20/22 12/21/22 12/21/22 19:36 07:13 09:22 WBC 7.6 RBC 4.59 L D Hgb 10.6 L D Hct 34.8 L D MCV 75.8 L MCH 23.1 L MCHC 30.5 L RDW 20.2 H Plt Count 205 MPV 9.1 L Absolute Nucleated RBC 0.020 H Nucleated RBC % (auto) 0.3 H POC Glucose 94 84 Blood Type Antibody Screen Crossmatch Discharge Plan Discharge Anticipated Discharge Date/Time: 12/21/22 15:50 Patient Disposition: Home, Self-Care Discharge Diagnosis: Rectal bleeding, anemia Referrals: Physician,Unknown J [Physician] - 1 Week Discharge Medications: Continued (DME) blood sugar diagnostic Strip See Rx Instructions .ROUTE BID Qty: 50 11RF Rx Instructions: Use 1 test strip once a day atorvastatin 40 mg tablet 40 mg PO DAILY potassium chloride 10 mEq tablet extended release 10 meq PO DAILY chlorthalidone 25 mg tablet 25 mg PO DAILY amlodipine 10 mg tablet 10 mg PO DAILY hydroxyzine HCl 25 mg tablet 25 mg PO BID PRN (Reason: anxiety) lisinopril 40 mg tablet 40 mg PO DAILY fluticasone propionate 50 mcg/actuation spray,suspension 1 spray intranasal DAILY calcitriol 0.25 mcg capsule 0.25 mcg PO Q2D cholecalciferol (vitamin D3) [Vitamin D3] 50 mcg (2,000 unit) capsule 50 mcg PO DAILY Farxiga 10 mg tablet 10 mg PO DAILY (DME) blood-glucose meter Misc See Rx Instructions PO BID Qty: 1 Rx Instructions: As directed (DME[facility]ructions .ROUTE BID Qty: 100 Rx Instructions: As directed Held Eliquis 2.5 mg tablet 2.5 mg PO BID Hold Instructions: Resume on 01/04/23. or until after colonoscopy Discharge Orders: Discharge Order (Routine); Ordered 12/21/22 Ordered By: Vivek Jaramillo Diet: Diabetic diet Activity on Discharge: As tolerated Stand Alone Forms: Patient Portal Discharge page, Against Medical Advice Care Plan Goals: Full recovery from heart failure, and anemia. Health Concerns: Acute blood loss anemia Acute heart failure Dyspnea on exertion Leg edema Stop taking eliquis for 2 weeks or after you have colonoscopy Plan of Treatment: Take Lasix as directed, follow-up with primary care doctor within a week Assessment: As above Patient Instructions: Heart Failure (DC), Chronic Kidney Disease (ED), Anemia (ED) Discharge Date/Time: 12/21/22 16:03
[2022-12-21 11:26] LABS: Glucose, Whole Blood 100 mg/dL (60-115)
--- NOTE | 2022-12-21 13:17 | MHC.SHP ---
Pre-Procedural Eval Section A Date of Service: 12/21/22 The patient is an INPATIENT: Yes Changes since office visit: Yes New Medical Problems and Yes Changes in Medication The History & Physical has been completed within 30 days and I have reviewed it.: Yes Section B Chief Complaint: Heart failure, GIB and anemia Relevant Family History (Specify if Yes): No Relevant Social History: None Present Medications: see Short Stay Collaborative assessment Medical History: Significant History (Chronic atrial fibrillation CKD (chronic kidney disease) Depression Diabetes Former smoker High cholesterol Hypertension) History of Previous Operations: Relevant previous surgery/procedure and date(s) (History of aneurysm History of shoulder surgery) Allergies: Allergies Allergy/AdvReac Type Severity Reaction Status Date / Time No Known Allergies Allergy Verified 04/15/21 20:25 [No Known Allergies*] Review of Systems Sugical H&P ROS: Negative: Constitution, Cardiovascular, Respiratory and Gastrointestinal Exam Surgical H&P Exam: Normal: Lungs and Normal: Abdomen and Significant Findings: Heart (irregularly irregular) Plan Diagnosis/Plan: Change (Proceed with upper endoscopy for evaluation of anemia. Patient refused to have a colonoscopy.) I have reviewed the history and physical and performed a pertinent physical examination on my patient. No changes have occurred unless specified. Time Spent With Patient Time: Total time managing care of this patient today ____ minutes.
--- NOTE | 2022-12-21 14:34 | W.PM.OPN ---
Operative Note Operative Note Date of Service: 12/21/22 Narrative: FLEXIBLE TRANSORAL UPPER GASTROINTESTINAL ENDOSCOPY WITH BIOPSIES Pre-op diagnosis: Severe anemia Post-op diagnosis: GERD, gastritis Endoscopist:? Phyllis Cline MD Anesthesia:?MAC Consent: Indications for the procedure and potential complications of bleeding, perforation, reaction to medications and missed diagnosis were discussed with the patient and informed consent was obtained. Instrument: Olympus GIF H 190 mid size upper endoscope Monitoring: Vital signs and clinical assessment, continuous EKG monitoring, Pulse oximetry, Carbon Dioxide monitoring and blood pressure monitoring were done throughout the procedure. Procedure: The patient was placed in the left lateral decubitis position and pre-procedure medications were administered and a bite block was placed. The endoscope was inserted into the mouth and advanced under direct vision to the third part of duodenum. A careful inspection was made as the upper endoscope was withdrawn including a retroflexed examination of the proximal stomach; Findings and interventions are described below. Findings: Larynx: Normal Esophagus: GE junction at 42 cms. Irregular Z-line - biopsies were obtained to check for Arellano's. Stomach: Mild gastric erythema with a few chronic appearing erosions in the antrum. Biopsies were obtained. Grade 2 flap valve on retroflexed examination of the cardia. Duodenum: Normal bulb and descending duodenum. Biopsies were obtained from 3rd part of the duodenum to check for celiac sprue. Intervention: Biopsies as noted above Impression and Post Procedure Diagnosis: Endoscopy Findings: ESOPHAGUS: Irregular Z-line - biopsies were obtained to check for Arellano's. STOMACH: Gastritis with chronic appearing antral erosions DUODENUM: Normal - biopsied to check for celiac sprue. No blood or potential source of anemia noted in the upper GI tract during EGD. Anemia is most likely of colonic or small bowel source. Plan: Await pathology results Above findings were reviewed with the patient with the help of a [place] translator and interpreter. Patient was advised further evaluation with a colonoscopy as an outpatient to which he agreed (he reports having a colonoscopy more than 10 years ago - no report found in [facility] or [facility]). GERD and Gastritis handouts were given in the discharge area
--- NOTE | 2022-12-21 16:04 | MHC.CM.PN ---
Patient has been medically cleared for dc to home today, self care. Last IMM was addressed yesterday.
== END 2022-12-21 16:03 | disposition home or self-care (01) | DRG 291 ==
LOC: HO.ED 16:44 → HO.EDOVER 18:43 → HO.IMC 18:44
PROVIDERS: Internal Medicine Gastroenterology; Physician Assistant; Physician Assistant Medical; Admitting Provider Internal Medicine; Emergency Provider Emergency Medicine; PCP Registered Nurse; Visit Provider Internal Medicine
DX: I13.0 Hypertensive heart and chronic kidney disease with heart failure and stage 1 through stage 4 chronic kidney disease, or unspecified chronic kidney disease (principal); I50.23 Acute on chronic systolic (congestive) heart failure; J96.01 Acute respiratory failure with hypoxia; D62 Acute posthemorrhagic anemia; I48.21 Permanent atrial fibrillation; D63.1 Anemia in chronic kidney disease; E11.22 Type 2 diabetes mellitus with diabetic chronic kidney disease; E78.00 Pure hypercholesterolemia, unspecified; Z20.822 Contact with and (suspected) exposure to COVID-19; Z87.891 Personal history of nicotine dependence; Z79.01 Long term (current) use of anticoagulants; Z79.51 Long term (current) use of inhaled steroids; Z79.899 Other long term (current) drug therapy
CPT/HCPCS: 36415; 71046; 80053; 81001; 82272; 82947; 83735; 83880; 84484; 85025; 85027; 85610; 85730; 86850; 86900; 86901; 86923; 87635; 88305; 88342; 93005; 93306; 99285; P9016; Q9957

== ENCOUNTER 2023-03-07 11:59 | Outpatient (REF) | payer OTHER, MEDICAID, SELFPAY | END 2023-03-07 12:00 | disposition home or self-care (01) | LOC: HO.HHCL 11:59 | PROVIDERS: Visit Provider Emergency Medicine | DX: Z13.89 Encounter for screening for other disorder (principal) ==

== ENCOUNTER 2023-03-08 13:26 | Outpatient (REF) | payer OTHER, SELFPAY ==
[2023-03-08 15:17] LABS: B Type Natriuretic Peptide 702 pg/mL (<100)
[2023-03-08 16:30] LABS: Anion Gap 15 (12-20); Blood Urea Nitrogen 36 mg/dL (9-16); Calcium 9.5 mg/dL (8.4-10.2); Carbon Dioxide 23 mmol/L (22-29); Chloride 107 mmol/L (96-108); Estimated Glomerular Filt Rate 30; Glucose Random 104 mg/dL (60-115); Potassium 3.4 mmol/L (3.3-5.1); Sodium 142 mmol/L (135-145)
== END 2023-03-08 13:27 | disposition home or self-care (01) ==
LOC: HO.LAB 13:26
PROVIDERS: PCP Emergency Medicine; Visit Provider Emergency Medicine
DX: I48.0 Paroxysmal atrial fibrillation (principal)
CPT/HCPCS: 36415; 80048; 83880

== ENCOUNTER 2023-03-19 08:17 | Outpatient (AMB) | payer OTHER, SELFPAY ==
--- NOTE | 2023-03-19 08:31 | A.OFFVIS_ITS ---
Intake Vital Signs 03/19/23 08:32 Height 5 ft 8 in Weight 200 lb 9.93 oz BMI 30.5 BP 160/70 H Blood Pressure Location Lt brachial Position Sitting Pulse 63 Intake Visit Reasons: Hospital follow up/AFIB/HTN Intake Note: hospital f/u afib/htn Webfed Offset Press Operator Required: Yes Webfed Offset Press Operator Name: jennifer mohr [id number] Allergies No Known Allergies [No Known Allergies*] Allergy (Verified 03/19/23 08:41) Medication List - Last Reconciled 03/19/23 by MONIQUE Abernathy amlodipine 10 mg PO DAILY apixaban (Eliquis) 2.5 mg PO BID atorvastatin 40 mg PO DAILY blood sugar diagnostic Use 1 test strip once a day blood-glucose meter As directed calcitriol 0.25 mcg PO Q2D chlorthalidone 25 mg PO DAILY cholecalciferol (vitamin D3) (Vitamin D3) 50 mcg PO DAILY dapagliflozin propanediol (Farxiga) 10 mg PO DAILY hydroxyzine HCl 25 mg PO BID PRN lancets As directed lisinopril 40 mg PO DAILY potassium chloride ER 10 mEq PO DAILY HPI Hospital follow up/AFIB/HTN HPI Details Ethan is a 72-year-old male with past medical history of hypertension, hyperlipidemia, chronic kidney disease, atrial fibrillation and on Eliquis for anticoagulation who was recently admitted to [facility] for shortness of breath and found to have significant anemia with hemoglobin 6.3 as well as mild Congestive heart failure. An echocardiogram showed cardiomyopathy with EF 35-40%. He was evaluated by GI. He received 3 units of packed cells. He was continued on lisinopril and chlorthalidone. Eliquis was initially held. Today He reports he has been doing well since his hospital discharge. He tells me he has had no signs of bleeding and has been taking his Eliquis. He does not recall if he had any GI follow-up since his hospital discharge. He denies any concerning symptoms at this time. No shortness of breath at rest or with activity. No heart palpitations, PND, orthopnea or edema. No chest discomfort, dizziness, presyncope, syncope, falls. He is taking all meds as directed. He reports having labs at [facility] approximately 2 weeks ago. Prior to his hospital visit he did not follow with Cardiology at all, his AFib was followed by his PCP.. He knew about an AFib history but no other heart problems. Certified block layer used. REPLACED BY [facility] Medical History CHF (congestive heart failure) Chronic atrial fibrillation CKD (chronic kidney disease) CKD (chronic kidney disease) Depression Diabetes Former smoker High cholesterol Hypertension Surgical History History of aneurysm History of shoulder surgery Family History Father No problems noted. Mother Diabetes Hypertension Cancer Son No problems noted. Son No problems noted. Son No problems noted. Daughter No problems noted. Daughter No problems noted. Social History Household Members: Spouse Household Members Other:: Housing: Apartment Do you presently have visiting nurse or other home services: No Alcohol intake: never Patient Tobacco Use Status: Never used Tobacco service: Yes Current occupational status: disabled Review of Systems Const All systems reviewed & are unremarkable except as noted in HPI and below ENT Reports dizziness Card Denies chest pain, Denies chest pain at rest, Denies chest pain with activity, Denies rapid heart rate, Denies pedal edema, Denies edema, Denies leg edema, Denies lightheadedness, Denies palpitations, Denies dyspnea, Denies dyspnea on exertion and Denies orthopnea Resp Denies cough, Denies dyspnea and Denies dyspnea on exertion GI Denies hematochezia and Denies change in stool character Musc Denies abnormal gait, Reports limited range of motion, Reports muscle cramps, Denies muscle weakness, Denies numbness, Denies radiating pain into limb, Denies stiffness and Denies tingling Neuro Denies abnormal gait, Reports dizziness, Denies numbness and Denies tingling Endo Denies palpitations Physical Exam Vital Signs: Last Vital Signs Pulse 63 03/19/23 08:32 BP 160/70 H 03/19/23 08:32 BMI result Body Mass Index 30.5 Const General: cooperative, healthy appearing, comfortable and no acute distress Orientation/consciousness: patient oriented x3 Neck Neck: Yes normal visual inspection Resp Effort & Inspection: normal respiratory effort Auscultation: clear to auscultation bilaterally, no crackles, no rales, no rhonchi and no wheezes Cardio Jugular venous distension: no JVD Rate: regular rate Rhythm: abnormal rhythm Heart sounds: S1 normal heart sound present, S2 normal heart sound present, no gallops, no murmurs and no rubs Neuro General: patient oriented x3 Extrem General: Yes normal to inspection, No no pedal edema and No calf tenderness Psych Appearance: grossly normal Mental Status: mental status grossly normal Speech and movement: Normal speech and movement present Office Procedures EKG Details: Today, read by me, atrial fibrillation, nonspecific ST and T-wave abnormality, QTC 470 millisecond, rate 63 [id number], Complete Assessment & Plan Assessment & Plan (1) Chronic atrial fibrillation: Code(s): I48.20 - Chronic atrial fibrillation, unspecified Plan: Reported History of chronic atrial fibrillation which has been followed by his PCP. He has not required rate slowing medications due to controlled heart rates, confirmed during recent hospitalization. He has been on Eliquis for anticoagulation. During last admission he was noted to have significant anemia with hemoglobin down to 6.3, requiring 3 units of packed cells. He underwent and EGD with findings of no blood or potential source of anemia noted in the upper GI track, any Fadumo thought to be most likely related to colonic or small- bowel source. On discharge his Eliquis was held however he now tells me he is taking Eliquis twice daily with out signs of bleeding. He reports having labs at [facility] approximately 2 weeks ago, will work on obtaining those results. In our system I do not see any GI follow-up. Will send message to GI regarding this. EKG done today showing atrial fibrillation, rate 63, nonspecific T-wave abnormality. Echocardiogram done 12/20/2022 showed EF 68%, moderate increase in the LV thickness, severe biatrial enlargement, mild MR, mild TR and mild pulmonary hypertension. Will check Holter monitor to ensure that heart rates are well controlled. Will check nuclear stress test to evaluate for any ischemia. It is unknown at present how long he has had AFib. Cardiology follow-up in 3 months, sooner if needed to evaluate for symptoms and go over test results. (2) CHF (congestive heart failure): Code(s): I50.9 - Heart failure, unspecified Plan: New finding of Congestive heart failure during hospital admission in the setting of significant anemia. He does not have signs of heart failure on examination today. He continues on his usual chlorthalidone. Will work on obtaining labs as above. (3) Hypertension: Code(s): I10 - Essential (primary) hypertension Qualifiers: Hypertension type: unspecified Qualified Code(s): I10 - Essential (primary) hypertension Plan: Blood pressure elevated at 160/70 initially. Follow-up blood pressure 148/60 done by me. He reports compliance with his medications. Will work on obtaining labs and then consider adjustment in medication for better blood pressure control (4) Hospital discharge follow-up: Code(s): Z09 - Encounter for follow-up examination after completed treatment for con ditions other than malignant neoplasm (5) Cardiomyopathy: Code(s): I42.9 - Cardiomyopathy, unspecified Plan: According to consult note patient does have reported history of having reduced EF 35-40% in the past. Echocardiogram done recently showed normal EF. Will be checking nuclear stress test to evaluate for any ischemia. Orders: Orders CA lexiscan stress w mk Today I42.9 - Cardiomyopathy, unspecified, I48.20 - Chronic atrial fibrillation, unspecified NM cardiolite stress test Today I42.9 - Cardiomyopathy, unspecified, I48.20 - Chronic atrial fibrillation, unspecified ECG 3 day holter monitor Today I48.20 - Chronic atrial fibrillation, unspecified Quality Reporting (2019) Adult ([facility] 138/10/04/68) Smoking risk assessment performed?: Yes Patient Tobacco Use Status: Never used Tobacco Coding Level of Care Code Est Pt Level 4 (49263) Diagnoses Chronic atrial fibrillation I48.20 CHF (congestive heart failure) I50.9 Hypertension I10 Hypertension type: unspecified Hospital discharge follow-up Z09 Cardiomyopathy I42.9 CPT Codes EKG - CPT: 80391-[id number], Complete ([id number]) Time Spent (min) 28 Comment Chart review, documentation, interview, assess
[2023-03-19 08:32] VITALS: BP 160/70; PULSE 63; BMI 30.5
== END 2023-03-19 09:02 | disposition home or self-care (01) ==
PROVIDERS: Visit Provider Nurse Practitioner Family
DX: I48.20 Chronic atrial fibrillation, unspecified (principal); I50.9 Heart failure, unspecified; I10 Essential (primary) hypertension; Z09 Encounter for follow-up examination after completed treatment for conditions other than malignant neoplasm; I42.9 Cardiomyopathy, unspecified
CPT/HCPCS: 93010; 99214

== ENCOUNTER → 2023-03-19 08:17 | Outpatient (BNVA) | payer OTHER, SELFPAY | PROVIDERS: Visit Provider Nurse Practitioner Family | DX: I48.20 Chronic atrial fibrillation, unspecified (principal); I42.9 Cardiomyopathy, unspecified; I45.81 Long QT syndrome; I13.0 Hypertensive heart and chronic kidney disease with heart failure and stage 1 through stage 4 chronic kidney disease, or unspecified chronic kidney disease; I50.9 Heart failure, unspecified; N18.9 Chronic kidney disease, unspecified; Z95.0 Presence of cardiac pacemaker; Z79.01 Long term (current) use of anticoagulants; Z09 Encounter for follow-up examination after completed treatment for conditions other than malignant neoplasm | CPT/HCPCS: 93005; 99212 ==

== ENCOUNTER 2023-06-28 15:38 | Emergency (ER) | payer OTHER, SELFPAY ==
--- NOTE | 2023-06-28 15:46 | ECG_ITS ---
Test Reason : WEAKNESS Blood Pressure : / mmHG Vent. Rate : 075 BPM Atrial Rate : 000 BPM P-R Int : 000 ms QRS Dur : 094 ms QT Int : 410 ms P-R-T Axes : 000 017 134 degrees QTc Int : 457 ms Atrial fibrillation Nonspecific ST and T wave abnormality Abnormal ECG When compared with ECG of 19-DEC-2022 11:55, No significant changes seen Referred By: Eliel Sullivan Electronically Signed By:GUERA ANGELES MD
--- NOTE | 2023-06-28 16:06 | ED_ITS ---
HPI - General Adult General Chief complaint: Recheck/Abnormal Lab/Rx Stated complaint: difficulty walking Time Seen by Provider: 06/28/23 22:16 Source: patient Mode of arrival: ambulatory Limitations: no limitations History of Present Illness HPI narrative: Patient history of chronic anemia told to go to the hospital for blood transfusion were unable to get it labs showed hemoglobin of 7.4 hematocrit 26.2 patient feel exhausted tired when he ambulates no shortness of breath no chest pain no melena patient had upper GI 01/02 was negative Related Data Home Medications Medication Instructions Recorded Confirmed blood-glucose meter #1 ea 05/14/20 03/19/23 lancets #100 ea 05/14/20 03/19/23 amlodipine 10 mg tablet 10 mg PO DAILY 12/19/22 03/19/23 apixaban 2.5 mg tablet (Eliquis) 2.5 mg PO BID 12/19/22 03/19/23 atorvastatin 40 mg tablet 40 mg PO DAILY 12/19/22 03/19/23 calcitriol 0.25 mcg capsule 0.25 mcg PO Q2D 12/19/22 03/19/23 chlorthalidone 25 mg tablet 25 mg PO DAILY 12/19/22 03/19/23 cholecalciferol (vitamin D3) 50 50 mcg PO DAILY 12/19/22 03/19/23 mcg (2,000 unit) capsule (Vitamin D3) dapagliflozin propanediol 10 mg 10 mg PO DAILY 12/19/22 03/19/23 tablet (Farxiga) hydroxyzine HCl 25 mg tablet 25 mg PO BID PRN anxiety 12/19/22 03/19/23 lisinopril 40 mg tablet 40 mg PO DAILY 12/19/22 03/19/23 potassium chloride 10 mEq 10 meq PO DAILY 12/19/22 03/19/23 tablet,extended release Previous Rx's Medication Instructions Recorded blood sugar diagnostic #50 ea 01/24/21 Allergies Allergy/AdvReac Type Severity Reaction Status Date / Time No Known Allergies Allergy Verified 06/28/23 16:16 [No Known Allergies*] Review of Systems 2 Review of Systems: Yes all other systems are reviewed and are negative [facility] Past Medical History Medical History Chronic atrial fibrillation CHF (congestive heart failure) CKD (chronic kidney disease) CKD (chronic kidney disease) Former smoker Depression Diabetes High cholesterol Hypertension Surgical History History of aneurysm History of shoulder surgery Family History Family History Father No problems noted. Mother Diabetes Hypertension Cancer Son No problems noted. Son No problems noted. Son No problems noted. Daughter No problems noted. Daughter No problems noted. Social History Social History Household Members: Spouse Household Members Other:: Housing: Apartment Do you presently have visiting nurse or other home services: No Alcohol intake: never Patient Tobacco Use Status: Never used Tobacco Advance Directives: No Advance Directives Information Provided: No service: Yes Current occupational status: disabled Physical Exam ED Vital Signs: Vital Signs - 24 hr 06/29/23 03:05 Temperature 97.7 F Pulse Rate 67 Respiratory Rate 18 Blood Pressure 188/76 H BMI result Body Mass Index 31.3 Appearance: Alert. Oriented X3. No acute distress. Eyes: PERRLA, pallor ENT: Pharynx normal. Oral Mucosa moist Neck: Normal inspection. Neck supple. CVS: Normal heart rate and rhythm. Pulses normal. Respiratory: No respiratory distress. Equal air entry bilateral, no wheezing/rales/rhonchi Abdomen: Soft and nontender. Bowel sounds are present, no mass palpable, no CVA tenderness Skin: Skin warm and dry. Normal skin color. Normal skin turgor. Extremities: No lower extremity edema. No calf tenderness Neuro: Oriented X 3. No motor deficit. No sensory deficit.No cerebellar signs , cranial nerves II-XII intact Course Course Course Narrative: This is an RME: Additional HPI, ROS, PE not included below will be deferred to primary provider. 72-year-old male presents with concerns that he may need blood he reports he feels weak and is having difficulty walking plan labs Medications Administered Discontinued Medications Generic Name Dose Route Start Last Admin Trade Name Freq PRN Reason Stop Dose Admin Sodium Chloride 100 mls @ 100 mls/hr 06/28/23 22:24 06/29/23 03:06 Ns IV 06/28/23 23:23 Infused ONCE ONE Infusion Medical Decision Making Medical Decision Making MDM Narrative: Patient's anemia chronic disease likely is CKD was given 1 unit of blood transfusion discharge the patient home advised to follow with non destructive testing supervisor/PCP Lab Data MDM Lab Attestation statement: I reviewed the patient's lab results. 06/28/23 16:05 06/28/23 16:05 Labs: Lab Results 06/28/23 06/28/23 06/29/23 Range/Units 16:05 22:39 00:07 WBC 6.4 (4.8-10.8) X10*3/uL RBC 3.70 L (4.60-5.80) X10*6/uL Hgb 7.4 L D (14.0-18.0) g/dl Hct 26.2 L D (42.0-52.0) % MCV 70.8 L (80.0-98.0) fL MCH 20.0 L (27.0-33.0) pg MCHC 28.2 L (31.0-36.0) g/dl RDW 19.9 H (11.0-16.0) % Plt Count 239 (160-400) X10*3/uL MPV 9.5 (9.4-12.4) fL Immature Gran % (Auto) 0.3 (0.0-0.4) % Neut % (Auto) 78.5 H (45-73) % Lymph % (Auto) 11.5 L (20-40) % [place] % (Auto) 7.5 (2-11) % Eos % (Auto) 1.9 (0-4) % Baso % (Auto) 0.3 (0-2) % Lymph # (Auto) 0.7 L (1.2-4.9) X10*3/uL [place] # (Auto) 0.5 (0.1-1.2) X10*3/uL Eos # (Auto) 0.1 (0.0-0.4) X10*3/uL Baso # (Auto) 0.0 (0.0-0.2) X10*3/uL Abs Immat Gran (auto) 0.02 (0.00-0.03) X10*3/uL Absolute Neuts (auto) 5.1 (2.0-8.3) x10*3/uL Absolute Nucleated RBC 0.000 (0.0-0.012) X10*3/uL Nucleated RBC % (auto) 0.0 (0.0-0.2) /100WBC Sodium 143 (135-145) mmol/L Potassium 3.5 (3.3-5.1) mmol/L Chloride 110 H (96-108) mmol/L Carbon Dioxide 26 (22-29) mmol/L Anion Gap 11 L (12-20) BUN 48 H (9-16) mg/dL Creatinine 2.21 H (0.5-1.4) mg/dL Estim Creat Clear Calc 33.4 Estimated GFR 30 Random Glucose 114 (60-115) mg/dL Calcium 9.0 (8.4-10.2) mg/dL Magnesium 2.0 (1.6-2.6) mg/dL Total Bilirubin 0.8 (0.0-1.0) mg/dL AST 19 (5-37) U/L ALT 10 (0-40) U/L Alkaline Phosphatase 107 (39-117) U/L Troponin I High Sens 25.6 (<3.5-35.0) ng/L Total Protein 6.9 (6.5-8.0) g/dL Albumin 3.9 (3.5-5.0) g/dL Lipase 17 (8-78) U/L Urine Color Yellow Urine Appearance Clear Urine pH 6.0 (5.0-9.0) Ur Specific [place] 1.015 (1.005-1.025) Urine Protein 30 (1+) H (Neg-Trace) mg/dL Urine Glucose (UA) 500 H (Negative) mg/dL Urine Ketones Negative (Negative) mg/dL Urine Blood Negative (Negative) Urine Nitrite Negative (Negative) Ur Leukocyte Esterase Negative (Negative) Urine RBC 0-2 (0-2) /HPF Urine WBC 0-5 (0-5) /HPF Ur Squamous Epith Cells 0-2 (0-2) /HPF Urine Bacteria None Seen (None Seen) Hyaline Casts 0-2 (0-2) /LPF Blood Type B Positive Antibody Screen NEGATIVE Crossmatch See Detail Discharge Plan Discharge Clinical Impression: Anemia due to chronic kidney disease, CKD (chronic kidney disease) Patient Disposition: Home, Self-Care Instructions: Chronic Kidney Disease (ED), Anemia (ED) Additional Instructions: Continue medications as prescribed by your PCP Follow-up with non destructive testing supervisor/PCP Prescriptions: No Action (DME) blood sugar diagnostic Strip See Rx Instructions .ROUTE BID Qty: 50 11RF Rx Instructions: Use 1 test strip once a day atorvastatin 40 mg tablet 40 mg PO DAILY potassium chloride 10 mEq tablet extended release 10 meq PO DAILY chlorthalidone 25 mg tablet 25 mg PO DAILY amlodipine 10 mg tablet 10 mg PO DAILY hydroxyzine HCl 25 mg tablet 25 mg PO BID PRN (Reason: anxiety) lisinopril 40 mg tablet 40 mg PO DAILY calcitriol 0.25 mcg capsule 0.25 mcg PO Q2D cholecalciferol (vitamin D3) [Vitamin D3] 50 mcg (2,000 unit) capsule 50 mcg PO DAILY Eliquis 2.5 mg tablet 2.5 mg PO BID Hold Instructions: Resume on 01/04/23. or until after colonoscopy Farxiga 10 mg tablet 10 mg PO DAILY (DME) blood-glucose meter Misc See Rx Instructions PO BID Qty: 1 Rx Instructions: As directed (DME) lancets Misc See Rx Instructions .ROUTE BID Qty: 100 Rx Instructions: As directed Referrals: Nicholas Norris MD [Physician] - 1 week Interventions: ED Discharge Assessment Last Done: 06/29/23 03:18 Discharge Date/Time: 06/29/23 03:19
[2023-06-28 16:09] LABS: MANUAL DIFF FLAG NO
[2023-06-28 16:10] LABS: Basophils Percent Auto 0.3 % (0-2); Eosinophils Absolute Auto 0.1 X10*3/uL (0.0-0.4); Eosinophils Percent Auto 1.9 % (0-4); Hematocrit 26.2 % (42.0-52.0); Hemoglobin 7.4 g/dl (14.0-18.0); Imm Gran Abs Auto 0.02 X10*3/uL (0.00-0.03); Imm Gran Pct Auto 0.3 % (0.0-0.4); Lymphocytes Absolute Auto 0.7 X10*3/uL (1.2-4.9); Lymphocytes Percent Auto 11.5 % (20-40); Mean Corpuscular HGB Conc 28.2 g/dl (31.0-36.0); Mean Corpuscular Volume 70.8 fL (80.0-98.0); Mean Platelet Volume 9.5 fL (9.4-12.4); Monocytes Absolute Auto 0.5 X10*3/uL (0.1-1.2); Monocytes Percent Auto 7.5 % (2-11); Neutrophils Absolute Auto 5.1 x10*3/uL (2.0-8.3); Neutrophils Percent Auto 78.5 % (45-73); Platelet Count 239 X10*3/uL (160-400); Red Cell Distribution Width 19.9 % (11.0-16.0); White Blood Count 6.4 X10*3/uL (4.8-10.8)
[2023-06-28 16:12] VITALS: BP 152/58; PULSE 68; RESP 18; TEMP 36.8; O2SAT 97; BMI 31.3
[2023-06-28 16:26] LABS: Alanine Aminotransferase 10 U/L (0-40); Albumin Level 3.9 g/dL (3.5-5.0); Alkaline Phosphatase 107 U/L (39-117); Anion Gap 11 (12-20); Aspartate Amino Transferase 19 U/L (5-37); Bilirubin Total 0.8 mg/dL (0.0-1.0); Blood Urea Nitrogen 48 mg/dL (9-16); Carbon Dioxide 26 mmol/L (22-29); Chloride 110 mmol/L (96-108); Creatinine Clr Calc Pharmacy 33.4; Estimated Glomerular Filt Rate 30; Glucose Random 114 mg/dL (60-115); Lipase 17 U/L (8-78); Potassium 3.5 mmol/L (3.3-5.1); Sodium 143 mmol/L (135-145); Total Protein 6.9 g/dL (6.5-8.0)
[2023-06-28 16:33] LABS: Troponin-I High Sensitivity 25.6 ng/L (<3.5-35.0)
[2023-06-28 21:44] VITALS: BP 169/59; PULSE 62; RESP 12; O2SAT 99
[2023-06-28 22:43] VITALS: BP 163/56; PULSE 64; RESP 16; TEMP 36.6; O2SAT 96
--- NOTE | 2023-06-28 22:43 | PC.NURSE ---
iv established type and screen drawn and sent to lab with tech. up pt afebrile. axox4. pt denies cp/sob.
--- NOTE | 2023-06-28 23:09 | PC.NURSE ---
consent for transfusion obtained by Dr. Mclean with pt.
[2023-06-28 23:55] VITALS: BP 169/78; PULSE 62; RESP 16; TEMP 36.6
--- NOTE | 2023-06-29 | PC.NURSE ---
rbc infusing afebrile vitals as documented.
[2023-06-29 00:14] VITALS: BP 169/52; PULSE 58; RESP 15; TEMP 36.6
--- NOTE | 2023-06-29 00:17 | PC.NURSE ---
no reactions noted afebrile. blood infusing.
[2023-06-29 00:22] LABS: Appearance Urine Clear; Color Urine Yellow; Glucose Urine UA 500 mg/dL (Negative); Leukocyte Esterase Urine Negative (Negative); Nitrite Urine Negative (Negative); Specific Gravity - Urine 1.015 (1.005-1.025); UMIC TRIGGER UACC YES; Urine Blood Negative (Negative); Urine Ketones Negative (Negative); Urine Protein 30 (1+) mg/dL (Neg-Trace)
[2023-06-29 00:27] LABS: Bacteria Urine None Seen (None Seen); Hyaline Casts Urine 0-2 /LPF (0-2); RBC Urine 0-2 /HPF (0-2); Squamous Epithelial Cell Urine 0-2 /HPF (0-2); WBC Urine 0-5 /HPF (0-5)
[2023-06-29 03:05] VITALS: BP 188/76; PULSE 67; RESP 18; TEMP 36.5
== END 2023-06-29 03:19 | disposition home or self-care (01) ==
PROVIDERS: Physician Assistant; Emergency Provider Internal Medicine; PCP Student in an Organized Health Care Education/Training Program
DX: E11.22 Type 2 diabetes mellitus with diabetic chronic kidney disease (principal); D63.1 Anemia in chronic kidney disease; R26.2 Difficulty in walking, not elsewhere classified; I48.91 Unspecified atrial fibrillation; R79.89 Other specified abnormal findings of blood chemistry; I13.0 Hypertensive heart and chronic kidney disease with heart failure and stage 1 through stage 4 chronic kidney disease, or unspecified chronic kidney disease; N18.9 Chronic kidney disease, unspecified; Z79.899 Other long term (current) drug therapy
CPT/HCPCS: 36415; 36430; 80053; 81001; 83690; 83735; 84484; 85025; 86850; 86900; 86901; 86923; 93005; 96360; 96361; 99285; P9016

== ENCOUNTER 2023-10-08 10:22 | Outpatient (REF) | payer OTHER, SELFPAY ==
[2023-10-08 11:27] LABS: Basophils Percent Auto 0.2 % (0-2); Eosinophils Absolute Auto 0.1 X10*3/uL (0.0-0.4); Eosinophils Percent Auto 1.2 % (0-4); Hematocrit 30.9 % (42.0-52.0); Hemoglobin 8.7 g/dl (14.0-18.0); Imm Gran Abs Auto 0.01 X10*3/uL (0.00-0.03); Imm Gran Pct Auto 0.2 % (0.0-0.4); Lymphocytes Absolute Auto 0.9 X10*3/uL (1.2-4.9); Lymphocytes Percent Auto 15.4 % (20-40); MANUAL DIFF FLAG NO; Mean Corpuscular HGB Conc 28.2 g/dl (31.0-36.0); Mean Corpuscular Hemoglobin 19.6 pg (27.0-33.0); Mean Corpuscular Volume 69.4 fL (80.0-98.0); Mean Platelet Volume 9.2 fL (9.4-12.4); Monocytes Absolute Auto 0.6 X10*3/uL (0.1-1.2); Monocytes Percent Auto 10.5 % (2-11); Neutrophils Absolute Auto 4.1 x10*3/uL (2.0-8.3); Neutrophils Percent Auto 72.5 % (45-73); Platelet Count 293 X10*3/uL (160-400); Red Blood Count 4.45 X10*6/uL (4.60-5.80); Red Cell Distribution Width 19.8 % (11.0-16.0); White Blood Count 5.6 X10*3/uL (4.8-10.8)
[2023-10-08 12:58] LABS: Iron 19 mcg/dL (45-160); Percent Iron Saturation 6 % (15-50); Total Iron Binding Capacity 304 mcg/dL (228-428); Unsaturated Iron Binding 285 ug/dL
[2023-10-08 12:59] LABS: Alanine Aminotransferase 25 U/L (0-40); Albumin Level 3.5 g/dL (3.5-5.0); Alkaline Phosphatase 112 U/L (39-117); Anion Gap 11 (12-20); Aspartate Amino Transferase 25 U/L (5-37); Bilirubin Total 0.7 mg/dL (0.0-1.0); Blood Urea Nitrogen 39 mg/dL (9-16); Calcium 8.9 mg/dL (8.4-10.2); Carbon Dioxide 27 mmol/L (22-29); Chloride 106 mmol/L (96-108); Estimated Glomerular Filt Rate 32; Glucose Random 94 mg/dL (60-115); Potassium 4.1 mmol/L (3.3-5.1); Sodium 140 mmol/L (135-145); Total Protein 7.4 g/dL (6.5-8.0)
== END 2023-10-08 10:23 | disposition home or self-care (01) ==
LOC: HO.HHCL 10:22
PROVIDERS: Visit Provider Nurse Practitioner Family
DX: N18.31 Chronic kidney disease, stage 3a (principal); D63.1 Anemia in chronic kidney disease
CPT/HCPCS: 36415; 80053; 83540; 85025

== ENCOUNTER 2023-11-02 10:58 | Outpatient (AMB) | payer MEDICARE, SELFPAY ==
[2023-11-02 11:17] VITALS: BP 150/70; PULSE 65; O2SAT 95; BMI 32.0
--- NOTE | 2023-11-02 11:17 | HO.NEPHOV_ITS ---
HPI HPI Comments History of Present Illness Details Ethan is a 72-year-old male with past medical history of diabetes mellitus, hypertension, hyperlipidemia, chronic kidney disease, atrial fibrillation and on Eliquis for anticoagulation. He denies retinopathy or fabiano ropathy but is known to have proteinuria. He has been aware of his CKD for some time. He had a hospitalization recently in [facility] for shortness of breath and found to have significant anemia with hemoglobin 6.3 as well as mild Congestive heart failure. An echocardiogram showed cardiomyopathy with EF 35-40%. He was evaluated by GI and received 3 units of packed cells. He was continued on lisinopril and chlorthalidone. Eliquis was initially held. He has had no signs of bleeding and has been taking his Eliquis. He denies any concerning symptoms at this time. No shortness of breath at rest or with activity. No heart palpitations, PND, orthopnea or edema. No chest discomfort, dizziness, presyncope, syncope, falls. He is taking all meds as directed. He has been on Farxiga, chlorthalidone and lisinopril. His blood pressure has been at goal. He denies sinusitis, epistaxis, joint swelling, photosensitivity, hematuria, nephrolithiasis, pedal edema or orthostatic symptoms. Has no history of any malignancy. He claims to be compliant with his medications. His recent serum creatinine has been 2.05 [facility] Medical History (Updated 11/02/23 @ 13:37 by Edi Guerin MD) Hypertension Chronic atrial fibrillation CHF (congestive heart failure) CKD (chronic kidney disease) CKD (chronic kidney disease) Former smoker Depression Diabetes High cholesterol Surgical History History of aneurysm History of shoulder surgery Family History Father No problems noted. Mother Diabetes Hypertension Cancer Son No problems noted. Son No problems noted. Son No problems noted. Daughter No problems noted. Daughter No problems noted. Social History Household Members: Spouse Household Members Other:: Housing: Apartment Do you presently have visiting nurse or other home services: No Alcohol intake: never Patient Tobacco Use Status: Never used Tobacco service: Yes Current occupational status: disabled Vital Signs 11/02/23 11:17 Height 5 ft 7.5 in Weight 207 lb 6 oz BMI 32.0 BP 150/70 H Blood Pressure Location Lt brachial Position Sitting Pulse 65 Pulse Source Pulse Oximeter Pulse Oximetry (%) 95 Oxygen Delivery Method Room Air Physical Exam Vital Signs: Last Vital Signs Pulse 65 11/02/23 11:17 BP 150/70 H 11/02/23 11:17 Pulse Ox 95 11/02/23 11:17 Oxygen Delivery Method Room Air 11/02/23 11:17 BMI result Body Mass Index 32.0 Const General: comfortable and no acute distress Orientation/consciousness: patient oriented x3 HEENT Head: Yes normocephalic Mouth: Normal oral and palatal mucosa present Eyes EOM: EOMs intact bilaterally Neck Neck: Yes supple Resp Auscultation: clear to auscultation bilaterally Cardio Jugular venous distension: no JVD Rate: regular rate GI Palpation (GI): Soft to palpation Auscultation: normal bowel sounds General: Yes no CVA tenderness Back/Spine/Pelvis Back: no CVA tenderness Skin General skin exam: no rashes or lesions noted Neuro General: patient oriented x3 and moves all extremities Extrem General: Yes no pedal edema Assessment & Plan Assessment & Plan (1) CKD (chronic kidney disease) stage 4, GFR 15-29 ml/min: Code(s): N18.4 - Chronic kidney disease, stage 4 (severe) (2) Hypertension: Code(s): I10 - Essential (primary) hypertension Qualifiers: Hypertension type: unspecified Qualified Code(s): I10 - Essential (primary) hypertension (3) Anemia in chronic kidney disease (CKD): Code(s): N18.9 - Chronic kidney disease, unspecified; D63.1 - Anemia in chronic kidney disease Qualifiers: Chronic kidney disease stage: stage 4 (severe) Qualified Code(s): N18.4 - Chronic kidney disease, stage 4 (severe); D63.1 - Anemia in chronic kidney disease (4) Iron deficiency: Code(s): E61.1 - Iron deficiency Plan Ethan has 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 He is proteinuric. He is on RAQUEL-inhibitor. He has history of heart failure. He has a diabetic. He is on Farxiga and diuretics as well. His serum creatinine is currently stable. I ordered further workup including imaging studies. He is iron deficient. I have ordered iron replacement by mouth. He may need Procrit injections which I shall arrange through my office once his transferrin saturation is over 20%. Further management is pending evolving data. More than 50% of time spent on discussing about chronic kidney disease, it is etiologies, investigations and management strategies. Answered all questions. Follow-up appointment given. Orders: Orders Ferritin Today N18.4 - Chronic kidney disease, stage 4 (severe) Vitamin D 25-OH Total Today N18.4 - Chronic kidney disease, stage 4 (severe) Parathyroid Hormone Intact Today N18.4 - Chronic kidney disease, stage 4 (severe) US renal BI Today N18.4 - Chronic kidney disease, stage 4 (severe) IRON PROFILE Today N18.4 - Chronic kidney disease, stage 4 (severe) Creatinine Today N18.4 - Chronic kidney disease, stage 4 (severe) Blood Urea Nitrogen Today N18.4 - Chronic kidney disease, stage 4 (severe) Electrolytes Today N18.4 - Chronic kidney disease, stage 4 (severe) Calcium Today N18.4 - Chronic kidney disease, stage 4 (severe) Phosphorus Today N18.4 - Chronic kidney disease, stage 4 (severe) Immunofixation Pnl, Serum Today N18.4 - Chronic kidney disease, stage 4 (severe) Immunofixation, Random Urine Today N18.4 - Chronic kidney disease, stage 4 (severe) Medications: New ferrous sulfate 325 mg PO BID 30 days 60 tabs 11RF Coding Level of Care Code New Pt Level 4 (39092) Diagnoses CKD (chronic kidney disease) stage 4, GFR 15-29 ml/min N18.4 Essential hypertension I10 Hypertension type: unspecified Anemia in stage 4 chronic kidney disease N18.4; D63.1 Chronic kidney disease stage: stage 4 (severe) Iron deficiency E61.1 Results Reviewed Nephrology Results: Hgb 8.7 g/dl (14.0-18.0) L 10/08/23 WBC 5.6 X10*3/uL (4.8-10.8) 10/08/23 Plt Count 293 X10*3/uL (160-400) 10/08/23 Sodium 140 mmol/L (135-145) 10/08/23 Potassium 4.1 mmol/L (3.3-5.1) 10/08/23 Chloride 106 mmol/L (96-108) 10/08/23 Carbon Dioxide 27 mmol/L (22-29) 10/08/23 BUN 39 mg/dL (9-16) H 10/08/23 Creatinine 2.05 mg/dL (0.5-1.4) H 10/08/23 Calcium 8.9 mg/dL (8.4-10.2) 10/08/23 Urine Protein 30 (1+) mg/dL (Neg-Trace) H 06/29/23
== END 2023-11-02 11:43 | disposition home or self-care (01) ==
PROVIDERS: PCP Student in an Organized Health Care Education/Training Program; Referring Provider Student in an Organized Health Care Education/Training Program; Visit Provider Internal Medicine Nephrology
DX: I12.9 Hypertensive chronic kidney disease with stage 1 through stage 4 chronic kidney disease, or unspecified chronic kidney disease (principal); N18.4 Chronic kidney disease, stage 4 (severe); D63.1 Anemia in chronic kidney disease; E61.1 Iron deficiency
CPT/HCPCS: 99204

== ENCOUNTER → 2023-11-02 10:58 | Outpatient (BNVA) | payer MEDICARE, SELFPAY | PROVIDERS: PCP Student in an Organized Health Care Education/Training Program; Referring Provider Student in an Organized Health Care Education/Training Program; Visit Provider Internal Medicine Nephrology | DX: N18.4 Chronic kidney disease, stage 4 (severe) (principal); E11.9 Type 2 diabetes mellitus without complications; R80.9 Proteinuria, unspecified; E61.1 Iron deficiency; D63.1 Anemia in chronic kidney disease; I10 Essential (primary) hypertension; E78.5 Hyperlipidemia, unspecified; I48.91 Unspecified atrial fibrillation; Z79.01 Long term (current) use of anticoagulants | CPT/HCPCS: 99202 ==

== ENCOUNTER 2023-11-08 13:55 | Outpatient (REF) | payer MEDICARE, SELFPAY ==
--- NOTE | ~2023-11-08 | US_ITS ---
EXAMINATION: US RETROPERITONEAL LIMITED (RENAL ONLY) CLINICAL INFORMATION: CT 80 stage IV.. COMPARISON: None available. TECHNIQUE: Routine grayscale imaging of kidneys was performed. FINDINGS: RIGHT KIDNEY: 9.7 x 4.9 x 3.6 cm (SAG x AP x TRV). The kidney is normal in size, contour, and echogenicity. Renal cortical thickness is normal. No calculi or focal parenchymal lesions. There is mild hydronephrosis. LEFT KIDNEY: 10.1 x 4.7 x 4.1 cm (SAG x AP x TRV). The kidney is normal in size, contour, and echogenicity. Renal cortical thickness is normal. No calculi or focal parenchymal lesions. There is mild hydronephrosis. US/US renal BI IMPRESSION: Mild bilateral hydronephrosis. No echogenic stones seen.
== END 2023-11-08 13:56 | disposition home or self-care (01) ==
LOC: HO.US 13:55
PROVIDERS: PCP Student in an Organized Health Care Education/Training Program; Visit Provider Internal Medicine Nephrology
DX: N18.4 Chronic kidney disease, stage 4 (severe) (principal)
CPT/HCPCS: 76775

== ENCOUNTER 2023-11-27 09:42 | Outpatient (REF) | payer OTHER, SELFPAY ==
[2023-11-27 11:36] LABS: MANUAL DIFF FLAG NO
[2023-11-27 11:48] LABS: Basophils Percent Auto 0.2 % (0-2); Eosinophils Absolute Auto 0.1 X10*3/uL (0.0-0.4); Eosinophils Percent Auto 2.4 % (0-4); Hemoglobin 9.1 g/dl (14.0-18.0); Imm Gran Abs Auto 0.02 X10*3/uL (0.00-0.03); Imm Gran Pct Auto 0.4 % (0.0-0.4); Lymphocytes Absolute Auto 1.4 X10*3/uL (1.2-4.9); Lymphocytes Percent Auto 26.2 % (20-40); Mean Corpuscular HGB Conc 29.4 g/dl (31.0-36.0); Mean Corpuscular Hemoglobin 20.2 pg (27.0-33.0); Mean Corpuscular Volume 68.9 fL (80.0-98.0); Mean Platelet Volume 8.9 fL (9.4-12.4); Monocytes Absolute Auto 0.5 X10*3/uL (0.1-1.2); Monocytes Percent Auto 9.9 % (2-11); Neutrophils Absolute Auto 3.3 x10*3/uL (2.0-8.3); Neutrophils Percent Auto 60.9 % (45-73); Platelet Count 220 X10*3/uL (160-400); Red Cell Distribution Width 20.9 % (11.0-16.0); White Blood Count 5.3 X10*3/uL (4.8-10.8)
== END 2023-11-27 09:43 | disposition home or self-care (01) ==
LOC: HO.HHCL 09:42
PROVIDERS: Visit Provider Nurse Practitioner Family
DX: N18.31 Chronic kidney disease, stage 3a (principal); D63.1 Anemia in chronic kidney disease
CPT/HCPCS: 36415; 85025

== ENCOUNTER 2023-11-28 09:59 | Outpatient (AMB) | payer OTHER, SELFPAY ==
[2023-11-28 10:01] VITALS: BP 134/60; PULSE 43; O2SAT 96; BMI 32.7
--- NOTE | 2023-11-28 10:01 | HO.NEPHOV_ITS ---
HPI HPI Comments History of Present Illness Details Ethan is a 72-year-old male with past medical history of diabetes mellitus, hypertension, hyperlipidemia, chronic kidney disease, atrial fibrillation and on Eliquis for anticoagulation. He denies retinopathy or fabiano ropathy but is known to have proteinuria. He has been aware of his CKD for some time. He had a hospitalization recently in [facility] for shortness of breath and found to have significant anemia with hemoglobin 6.3 as well as mild Congestive heart failure. An echocardiogram showed cardiomyopathy with EF 35-40%. He was evaluated by GI and received 3 units of packed cells. He was continued on lisinopril and chlorthalidone. Eliquis was initially held. He has had no signs of bleeding and has been taking his Eliquis. He denies any concerning symptoms at this time. No shortness of breath at rest or with activity. No heart palpitations, PND, orthopnea or edema. No chest discomfort, dizziness, presyncope, syncope, falls. He is taking all meds as directed. He has been on Farxiga, chlorthalidone and lisinopril. His blood pressure has been at goal. He denies sinusitis, epistaxis, joint swelling, photosensitivity, hematuria, nephrolithiasis, pedal edema or orthostatic symptoms. Has no history of any malignancy. He claims to be compliant with his medications. His recent serum creatinine has been stable [facility] Medical History (Updated 11/02/23 @ 13:37 by Edi Guerin MD) Hypertension Chronic atrial fibrillation CHF (congestive heart failure) CKD (chronic kidney disease) CKD (chronic kidney disease) Former smoker Depression Diabetes High cholesterol Surgical History History of aneurysm History of shoulder surgery Family History Father No problems noted. Mother Diabetes Hypertension Cancer Son No problems noted. Son No problems noted. Son No problems noted. Daughter No problems noted. Daughter No problems noted. Social History Household Members: Spouse Household Members Other:: Housing: Apartment Do you presently have visiting nurse or other home services: No Alcohol intake: never Patient Tobacco Use Status: Never used Tobacco service: Yes Current occupational status: disabled Vital Signs 11/28/23 10:01 Height 5 ft 7.5 in Weight 212 lb 4 oz BMI 32.7 BP 134/60 Blood Pressure Location Rt brachial Position Sitting Pulse 43 L Pulse Source Pulse Oximeter Pulse Oximetry (%) 96 Oxygen Delivery Method Room Air Physical Exam Vital Signs: Last Vital Signs Pulse 43 L 11/28/23 10:01 BP 134/60 11/28/23 10:01 Pulse Ox 96 11/28/23 10:01 Oxygen Delivery Method Room Air 11/28/23 10:01 BMI result Body Mass Index 32.7 Const General: comfortable and no acute distress Orientation/consciousness: patient oriented x3 HEENT Head: Yes normocephalic Mouth: Normal oral and palatal mucosa present Eyes EOM: EOMs intact bilaterally Neck Neck: Yes supple Resp Auscultation: clear to auscultation bilaterally Cardio Jugular venous distension: no JVD Rate: regular rate GI Palpation (GI): Soft to palpation Auscultation: normal bowel sounds General: Yes no CVA tenderness Back/Spine/Pelvis Back: no CVA tenderness Skin General skin exam: no rashes or lesions noted Neuro General: patient oriented x3 and moves all extremities Extrem General: Yes no pedal edema Assessment & Plan Assessment & Plan (1) CKD (chronic kidney disease) stage 4, GFR 15-29 ml/min: Code(s): N18.4 - Chronic kidney disease, stage 4 (severe) (2) Hypertension: Code(s): I10 - Essential (primary) hypertension Qualifiers: Hypertension type: unspecified Qualified Code(s): I10 - Essential (primary) hypertension (3) Anemia in chronic kidney disease (CKD): Code(s): N18.9 - Chronic kidney disease, unspecified; D63.1 - Anemia in chronic kidney disease Qualifiers: Chronic kidney disease stage: stage 4 (severe) Qualified Code(s): N18.4 - Chronic kidney disease, stage 4 (severe); D63.1 - Anemia in chronic kidney disease (4) Iron deficiency: Code(s): E61.1 - Iron deficiency Plan Ethan has 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 He is proteinuric. He is on RAQUEL-inhibitor. He has history of heart failure. He has a diabetic. He is on Farxiga and diuretics as well. His serum creatinine is currently stable. Imaging studies showed mildbilateral hydro for which I referred him to Urology. He is iron deficient. I have ordered iron replacement by mouth. He may need Procrit injections which I shall arrange through my office once his transferrin saturation is over 20%. Further management is pending evolving data. More than 50% of time spent on discussing about chronic kidney disease, it is etiologies, investigations and management strategies. Answered all questions. Follow-up appointment given Orders: Orders Ferritin Today D63.1 - Anemia in chronic kidney disease, E61.1 - Iron deficiency, I10 - Essential (primary) hypertension, N18.4 - Chronic kidney disease, stage 4 (severe) IRON PROFILE Today D63.1 - Anemia in chronic kidney disease, E61.1 - Iron deficiency, I10 - Essential (primary) hypertension, N18.4 - Chronic kidney disease, stage 4 (severe) Creatinine Today D63.1 - Anemia in chronic kidney disease, E61.1 - Iron deficiency, I10 - Essential (primary) hypertension, N18.4 - Chronic kidney disease, stage 4 (severe) Blood Urea Nitrogen Today D63.1 - Anemia in chronic kidney disease, E61.1 - Iron deficiency, I10 - Essential (primary) hypertension, N18.4 - Chronic kidney disease, stage 4 (severe) Electrolytes Today D63.1 - Anemia in chronic kidney disease, E61.1 - Iron deficiency, I10 - Essential (primary) hypertension, N18.4 - Chronic kidney disease, stage 4 (severe) Blood Urea Nitrogen 4 Months D63.1 - Anemia in chronic kidney disease, E61.1 - Iron deficiency, I10 - Essential (primary) hypertension, N18.4 - Chronic kidney disease, stage 4 (severe) Creatinine 4 Months D63.1 - Anemia in chronic kidney disease, E61.1 - Iron deficiency, I10 - Essential (primary) hypertension, N18.4 - Chronic kidney disease, stage 4 (severe) Electrolytes 4 Months D63.1 - Anemia in chronic kidney disease, E61.1 - Iron deficiency, I10 - Essential (primary) hypertension, N18.4 - Chronic kidney disease, stage 4 (severe) Complete Blood Count Auto Diff 4 Months D63.1 - Anemia in chronic kidney disease, E61.1 - Iron deficiency, I10 - Essential (primary) hypertension, N18.4 - Chronic kidney disease, stage 4 (severe) Ferritin 4 Months D63.1 - Anemia in chronic kidney disease, E61.1 - Iron deficiency, I10 - Essential (primary) hypertension, N18.4 - Chronic kidney disease, stage 4 (severe) IRON PROFILE 4 Months D63.1 - Anemia in chronic kidney disease, E61.1 - Iron deficiency, I10 - Essential (primary) hypertension, N18.4 - Chronic kidney disease, stage 4 (severe) Coding Level of Care Code Est Pt Level 4 (06086) Diagnoses CKD (chronic kidney disease) stage 4, GFR 15-29 ml/min N18.4 Essential hypertension I10 Hypertension type: unspecified Anemia in stage 4 chronic kidney disease N18.4; D63.1 Chronic kidney disease stage: stage 4 (severe) Iron deficiency E61.1 Results Reviewed Nephrology Results: Hgb 9.1 g/dl (14.0-18.0) L 11/27/23 WBC 5.3 X10*3/uL (4.8-10.8) 11/27/23 Plt Count 220 X10*3/uL (160-400) 11/27/23 Sodium 140 mmol/L (135-145) 10/08/23 Potassium 4.1 mmol/L (3.3-5.1) 24 Chloride 106 mmol/L (96-108) 10/08/23 Carbon Dioxide 27 mmol/L (22-29) 10/08/23 BUN 39 mg/dL (9-16) H 10/08/23 Creatinine 2.05 mg/dL (0.5-1.4) H 10/08/23 Calcium 8.9 mg/dL (8.4-10.2) 10/08/23 Urine Protein 30 (1+) mg/dL (Neg-Trace) H 06/29/23 Renal US 11/08/23
== END 2023-11-28 10:20 | disposition home or self-care (01) ==
PROVIDERS: PCP Student in an Organized Health Care Education/Training Program; Visit Provider Internal Medicine Nephrology
DX: I12.9 Hypertensive chronic kidney disease with stage 1 through stage 4 chronic kidney disease, or unspecified chronic kidney disease (principal); N18.4 Chronic kidney disease, stage 4 (severe); D63.1 Anemia in chronic kidney disease; E61.1 Iron deficiency
CPT/HCPCS: 99214

== ENCOUNTER 2023-11-28 10:51 | Outpatient (REF) | payer OTHER, SELFPAY ==
[2023-11-28 11:36] LABS: MANUAL DIFF FLAG NO
[2023-11-28 11:43] LABS: Basophils Percent Auto 0.2 % (0-2); Eosinophils Absolute Auto 0.1 X10*3/uL (0.0-0.4); Eosinophils Percent Auto 1.7 % (0-4); Hematocrit 29.7 % (42.0-52.0); Hemoglobin 8.8 g/dl (14.0-18.0); Imm Gran Abs Auto 0.01 X10*3/uL (0.00-0.03); Imm Gran Pct Auto 0.2 % (0.0-0.4); Lymphocytes Absolute Auto 1.2 X10*3/uL (1.2-4.9); Lymphocytes Percent Auto 19.8 % (20-40); Mean Corpuscular HGB Conc 29.6 g/dl (31.0-36.0); Mean Corpuscular Hemoglobin 20.2 pg (27.0-33.0); Mean Corpuscular Volume 68.3 fL (80.0-98.0); Mean Platelet Volume 9.1 fL (9.4-12.4); Monocytes Absolute Auto 0.5 X10*3/uL (0.1-1.2); Monocytes Percent Auto 8.6 % (2-11); Neutrophils Absolute Auto 4.1 x10*3/uL (2.0-8.3); Neutrophils Percent Auto 69.5 % (45-73); Platelet Count 214 X10*3/uL (160-400); Red Blood Count 4.35 X10*6/uL (4.60-5.80); White Blood Count 5.9 X10*3/uL (4.8-10.8)
[2023-11-28 12:21] LABS: Parathyroid Hormone Intact 433.7 pg/mL (8.7-77.1)
[2023-11-28 12:29] LABS: Anion Gap 11 (12-20); Blood Urea Nitrogen 45 mg/dL (9-16); Calcium 9.1 mg/dL (8.4-10.2); Carbon Dioxide 25 mmol/L (22-29); Chloride 109 mmol/L (96-108); Estimated Glomerular Filt Rate 27; Iron 17 mcg/dL (45-160); Percent Iron Saturation 5 % (15-50); Phosphorus 4.6 mg/dL (2.7-4.5); Potassium 3.5 mmol/L (3.3-5.1); Sodium 141 mmol/L (135-145); Total Iron Binding Capacity 361 mcg/dL (228-428); Unsaturated Iron Binding 344 ug/dL
[2023-11-28 12:45] LABS: Ferritin 12 ng/mL (20-250); Vitamin D 25-OH Total 40.1 ng/mL (>30)
== END 2023-11-28 10:52 | disposition home or self-care (01) ==
LOC: HO.HHCL 10:51
PROVIDERS: Visit Provider Internal Medicine Nephrology
DX: I12.9 Hypertensive chronic kidney disease with stage 1 through stage 4 chronic kidney disease, or unspecified chronic kidney disease (principal); N18.4 Chronic kidney disease, stage 4 (severe); D63.1 Anemia in chronic kidney disease; E61.1 Iron deficiency
CPT/HCPCS: 36415; 80051; 82306; 82310; 82565; 82728; 83540; 83970; 84100; 84520; 85025; 99212

== ENCOUNTER 2023-12-05 10:28 | Outpatient (REF) | payer OTHER, SELFPAY ==
[2023-12-05 12:13] LABS: Anion Gap 11 (12-20); Blood Urea Nitrogen 41 mg/dL (9-16); Carbon Dioxide 27 mmol/L (22-29); Chloride 107 mmol/L (96-108); Estimated Glomerular Filt Rate 27; Iron 133 mcg/dL (45-160); Percent Iron Saturation 36 % (15-50); Potassium 3.6 mmol/L (3.3-5.1); Sodium 141 mmol/L (135-145); Total Iron Binding Capacity 373 mcg/dL (228-428); Unsaturated Iron Binding 240 ug/dL
[2023-12-05 12:20] LABS: Parathyroid Hormone Intact 334.3 pg/mL (8.7-77.1)
[2023-12-05 12:32] LABS: Ferritin 14 ng/mL (20-250)
== END 2023-12-05 10:29 | disposition home or self-care (01) ==
LOC: HO.HHCL 10:28
PROVIDERS: Nurse Practitioner Family; Visit Provider Internal Medicine Nephrology
DX: N18.4 Chronic kidney disease, stage 4 (severe) (principal); D63.1 Anemia in chronic kidney disease; I10 Essential (primary) hypertension; N25.0 Renal osteodystrophy; E61.1 Iron deficiency
CPT/HCPCS: 36415; 80051; 82565; 82728; 83540; 83970; 84520

== ENCOUNTER 2023-12-18 08:59 | Outpatient (AMB) | payer OTHER, SELFPAY ==
--- NOTE | 2023-12-18 09:01 | MHC.OFFVIS ---
Vital Signs 12/18/23 09:03 Height 5 ft 7 in Weight 206 lb BMI 32.3 BP 170/73 H Blood Pressure Location Lt brachial Position Sitting Pulse 71 Intake Visit Reasons: Anemia Intake Note: Patient new problem Anemia. Patient denies any GI issues. Anesthesia Tech Required: Yes Anesthesia Tech Name: [facility] [place] Accompanied by: Self / Same As Patient Allergies No Known Allergies [No Known Allergies*] Allergy (Verified 12/18/23 09:00) HPI HPI Anemia: Details: HOSPITAL CONSULT 12/20/2022 Assessment and Plan (1) Acute on chronic systolic (congestive) heart failure: Status: Acute (2) Anemia: Status: Acute (3) CKD (chronic kidney disease): Status: Acute Plan 1/ Acute on chronic HF exacerbated by anemia, which itself could be multifactorial from anemia of chronic disease, mucosal bleeding from eliquis or other GI lesion PLAN: 1/ EGD today, he wants to do o/p colonoscopy 2/ check ferritin, b12, folate and replenish if low UPPER ENDOSCOPY: Findings: Larynx: Normal Esophagus: GE junction at 42 cms. Irregular Z-line - biopsies were obtained to check for Arellano's. Stomach: Mild gastric erythema with a few chronic appearing erosions in the antrum. Biopsies were obtained. Grade 2 flap valve on retroflexed examination of the cardia. Duodenum: Normal bulb and descending duodenum. Biopsies were obtained from 3rd part of the duodenum to check for celiac sprue. Intervention: Biopsies as noted above Impression and Post Procedure Diagnosis: Endoscopy Findings: ESOPHAGUS: Irregular Z-line - biopsies were obtained to check for Arellano's. STOMACH: Gastritis with chronic appearing antral erosions DUODENUM: Normal - biopsied to check for celiac sprue. No blood or potential source of anemia noted in the upper GI tract during EGD. Anemia is most likely of colonic or small bowel source. TODAY'S VISIT. Patient is here today for initial consultation. Patient has been hospitalized year ago for anemia. Anemia most likely related to CKD. During hospitalization patient had upper endoscopy done, however colonoscopy was not performed. Colonoscopy was supposed to be schedule as outpatient multiple attempts to reach patient for pre colonoscopy screening appointment. Patient denies any melena, hematochezia, unintentional weight loss or ribbon like stools. Patient is on Eliquis 2.5 twice a day. History of AFib and heart failure. Has not been following up with any needle polisher. Last seen by Cardiology in March. Stress test ordered, however patient did not come back to do stress test. Patient states that his PCP is giving him Eliquis. Last year during admission patient's LV EF was 35-40%. Patient denies any shortness of breath or chest pain with or without activity. Patient reports that he is not taking iron supplements as he believes that it is making him feel constipated. Patient states that if he does not take it for couple days he has not normal bowel movement. Patient denies any abdominal pain or discomfort. [facility] Medical History (Updated 11/02/23 @ 13:37 by Edi Guerin MD) Hypertension Chronic atrial fibrillation CHF (congestive heart failure) CKD (chronic kidney disease) CKD (chronic kidney disease) Former smoker Depression Diabetes High cholesterol Surgical History History of aneurysm History of shoulder surgery Family History Father No problems noted. Mother Diabetes Hypertension Cancer Son No problems noted. Son No problems noted. Son No problems noted. Daughter No problems noted. Daughter No problems noted. Social History Household Members: Spouse Household Members Other:: Housing: Apartment Do you presently have visiting nurse or other home services: No Alcohol intake: never Patient Tobacco Use Status: Never used Tobacco service: Yes Current occupational status: disabled Review of Systems Const Denies weight gain and Denies weight loss ENT Reports no additional complaints, Denies dysphagia and Denies odynophagia Card Reports no additional complaints Resp Reports no additional complaints GI Denies abdominal pain, Denies belching, Denies melena, Denies bloating, Denies change in bowel habits, Denies dysphagia, Denies excessive flatus, Denies dyspepsia, Denies heartburn, Denies diarrhea, Denies loose stools, Denies nausea, Denies odynophagia and Denies vomiting Reports no additional complaints Musc Reports no additional complaints Neuro Reports no additional complaints Psych Reports no additional complaints Endo Reports no additional complaints Physical Exam Vital Signs: Last Vital Signs Pulse 71 12/18/23 09:03 BP 170/73 H 12/18/23 09:03 BMI result Body Mass Index 32.3 Const General: healthy appearing and no acute distress Nutritional Appearance: obese Orientation/consciousness: patient oriented x3 Resp Effort & Inspection: normal respiratory effort, able to speak in complete sentences, no tracheal deviation and symmetric chest movement Auscultation: clear to auscultation bilaterally Cardio Rate: regular rate GI Inspection: Yes normal to inspection, No distended and Yes obesity Palpation (GI): Soft to palpation, not firm, nontender and No hepatosplenomegaly present Auscultation: normal bowel sounds General: Yes no CVA tenderness Back/Spine/Pelvis Back: no CVA tenderness Skin General skin exam: elasticity normal, turgor normal and dry skin Neuro General: patient oriented x3 Psych Appearance: grossly normal Mental Status: mental status grossly normal Quality Reporting (2019) Adult ([facility] 13810/04/68) Smoking risk assessment performed?: Yes Patient Tobacco Use Status: Never used Tobacco Assessment & Plan Assessment & Plan (1) Iron deficiency: Code(s): E61.1 - Iron deficiency Category: Medical (2) Anemia in chronic kidney disease (CKD): Code(s): N18.9 - Chronic kidney disease, unspecified; D63.1 - Anemia in chronic kidney disease Category: Medical Qualifiers: Chronic kidney disease stage: stage 4 (severe) Qualified Code(s): N18.4 - Chronic kidney disease, stage 4 (severe); D63.1 - Anemia in chronic kidney disease (3) Chronic atrial fibrillation: Code(s): I48.20 - Chronic atrial fibrillation, unspecified Category: Medical Plan Patient will start taking iron twice a day as ordered. Start taking Colace. Patient was encouraged to increase activity to promote better bowel motility. Currently patient is not on any fluid restriction. Patient will schedule appointment with cardiology for follow-up. Patient will need to have stress test done and possibly repeat echo. Currently no cardiac or respiratory symptoms with or without exertion. Patient will return in 5-6 weeks to discuss colonoscopy. Walk patient over to Cardiology Department, appointment was scheduled for January 16. Discussed with patient the importance of following up with his appointment and doing all the testing. Patient is agreeable to this plan and verbalizes understanding of instructions. He was given the opportunity to ask questions and all questions answered. Thank you for allowing me to participate in his care Orders: Referrals Cardiology Referral [id number] - Encounter for preprocedural cardiovascular examination Medications: New docusate sodium 100 mg PO BEDTIME 90 caps 3RF K59.00 - Constipation, unspecified Coding Level of Care Code New Pt Level 4 (18020) Diagnoses Iron deficiency E61.1 Anemia in stage 4 chronic kidney disease N18.4; D63.1 Chronic kidney disease stage: stage 4 (severe) Chronic atrial fibrillation I48.20 Time Spent (min) 45 Comment 30 minutes spent with patient and additional 15 minutes spent reviewing his records
[2023-12-18 09:03] VITALS: BP 170/73; PULSE 71; BMI 32.3
== END 2023-12-18 09:46 | disposition home or self-care (01) ==
PROVIDERS: PCP Student in an Organized Health Care Education/Training Program; Visit Provider Nurse Practitioner Family
DX: E61.1 Iron deficiency (principal); N18.4 Chronic kidney disease, stage 4 (severe); D63.1 Anemia in chronic kidney disease; I48.20 Chronic atrial fibrillation, unspecified
CPT/HCPCS: 99204

== ENCOUNTER → 2023-12-18 08:59 | Outpatient (BNVA) | payer OTHER, SELFPAY | PROVIDERS: PCP Student in an Organized Health Care Education/Training Program; Visit Provider Nurse Practitioner Family | DX: N18.4 Chronic kidney disease, stage 4 (severe) (principal); D63.1 Anemia in chronic kidney disease; E61.1 Iron deficiency; I48.20 Chronic atrial fibrillation, unspecified | CPT/HCPCS: 99202 ==

== ENCOUNTER 2023-12-27 13:47 | Outpatient (REF) | payer OTHER, SELFPAY ==
--- NOTE | ~2023-12-27 | XR_ITS ---
EXAMINATION: XR KNEE, LEFT CLINICAL INFORMATION: Atraumatic left knee pain COMPARISON: None available. TECHNIQUE: Four views of the left knee. FINDINGS: No acute visible fracture or dislocation. Multicompartment arthritic changes. Enthesopathy along the medial tibial metadiaphysis. Narrowing medial femorotibial compartment. Enthesopathy at the quadriceps tendon insertion site and patellar tendon insertion site. Joint spaces and alignment are otherwise maintained. No large knee joint effusion. Soft tissues are unremarkable. XR/XR knee LT 3V IMPRESSION: 1. No acute visible fracture or dislocation. 2. Multicompartment arthritic changes. 3. Enthesopathy along the medial tibial metadiaphysis.
== END 2023-12-27 13:48 | disposition home or self-care (01) ==
LOC: HO.HHCX 13:47
PROVIDERS: Visit Provider Emergency Medicine
DX: M25.562 Pain in left knee (principal)
CPT/HCPCS: 73562

== ENCOUNTER 2023-12-31 09:24 | Outpatient (REF) | payer OTHER, SELFPAY ==
--- NOTE | ~2023-12-31 | XR_ITS ---
EXAMINATION: RIGHT ELBOW, WRIST CLINICAL INFORMATION: Atraumatic right elbow and right wrist pain COMPARISON: Left elbow 04/11/2022 TECHNIQUE: 3 views right elbow, 3 views right wrist FINDINGS: Elbow: Large enthesophyte seen at the extensor tendon insertion on the olecranon. Some well-corticated osseous densities seen adjacent to the medial distal femoral condyle probably secondary to remote trauma. No joint effusion, acute fracture or dislocation seen. Right wrist: Degenerative changes are present at the first and second CMC joints. Some minor degenerative changes are present at the radiocarpal joint. No chondrocalcinosis is seen. No fracture is detected. Extensive vascular calcifications are noted. XR/XR elbow RT min 3V IMPRESSION: No acute finding in the right elbow or right wrist. Degenerative changes as described above.
--- NOTE | ~2023-12-31 | XR_ITS ---
EXAMINATION: RIGHT ELBOW, WRIST CLINICAL INFORMATION: Atraumatic right elbow and right wrist pain COMPARISON: Left elbow 04/11/2022 TECHNIQUE: 3 views right elbow, 3 views right wrist FINDINGS: Elbow: Large enthesophyte seen at the extensor tendon insertion on the olecranon. Some well-corticated osseous densities seen adjacent to the medial distal femoral condyle probably secondary to remote trauma. No joint effusion, acute fracture or dislocation seen. Right wrist: Degenerative changes are present at the first and second CMC joints. Some minor degenerative changes are present at the radiocarpal joint. No chondrocalcinosis is seen. No fracture is detected. Extensive vascular calcifications are noted. XR/XR wrist RT min 3V IMPRESSION: No acute finding in the right elbow or right wrist. Degenerative changes as described above.
== END 2023-12-31 09:25 | disposition home or self-care (01) ==
LOC: HO.HHCX 09:24
PROVIDERS: Visit Provider Emergency Medicine
DX: Z13.89 Encounter for screening for other disorder (principal)
CPT/HCPCS: 73080; 73110

== ENCOUNTER 2023-12-31 10:09 | Outpatient (REF) | payer OTHER, SELFPAY ==
[2023-12-31 11:30] LABS: MANUAL DIFF FLAG NO
[2023-12-31 11:40] LABS: Basophils Percent Auto 0.2 % (0-2); Eosinophils Absolute Auto 0.1 X10*3/uL (0.0-0.4); Eosinophils Percent Auto 1.9 % (0-4); Hematocrit 35.6 % (42.0-52.0); Hemoglobin 10.4 g/dl (14.0-18.0); Imm Gran Abs Auto 0.02 X10*3/uL (0.00-0.03); Imm Gran Pct Auto 0.3 % (0.0-0.4); Lymphocytes Percent Auto 15.1 % (20-40); Mean Corpuscular HGB Conc 29.2 g/dl (31.0-36.0); Mean Corpuscular Hemoglobin 20.8 pg (27.0-33.0); Mean Corpuscular Volume 71.1 fL (80.0-98.0); Mean Platelet Volume 9.5 fL (9.4-12.4); Monocytes Absolute Auto 0.6 X10*3/uL (0.1-1.2); Monocytes Percent Auto 8.6 % (2-11); Neutrophils Absolute Auto 4.8 x10*3/uL (2.0-8.3); Neutrophils Percent Auto 73.9 % (45-73); Platelet Count 241 X10*3/uL (160-400); Red Blood Count 5.01 X10*6/uL (4.60-5.80); Red Cell Distribution Width 21.4 % (11.0-16.0); White Blood Count 6.4 X10*3/uL (4.8-10.8)
[2023-12-31 12:07] LABS: Alanine Aminotransferase 14 U/L (0-40); Alkaline Phosphatase 125 U/L (39-117); Anion Gap 15 (12-20); Aspartate Amino Transferase 16 U/L (5-37); Bilirubin Total 0.7 mg/dL (0.0-1.0); Blood Urea Nitrogen 57 mg/dL (9-16); Calcium 8.7 mg/dL (8.4-10.2); Carbon Dioxide 24 mmol/L (22-29); Chloride 104 mmol/L (96-108); Estimated Glomerular Filt Rate 23; Glucose Random 112 mg/dL (60-115); Potassium 3.4 mmol/L (3.3-5.1); Sodium 140 mmol/L (135-145); Total Protein 7.6 g/dL (6.5-8.0)
[2023-12-31 12:10] LABS: Uric Acid 10.6 mg/dL (3.4-7.0)
[2024-01-01 13:28] LABS: Lyme Abs Screen <0.90 index
== END 2023-12-31 10:10 | disposition home or self-care (01) ==
LOC: HO.HHCL 10:09
PROVIDERS: Emergency Medicine; Visit Provider Nurse Practitioner Family
DX: I50.42 Chronic combined systolic (congestive) and diastolic (congestive) heart failure (principal); M25.521 Pain in right elbow; M25.531 Pain in right wrist
CPT/HCPCS: 36415; 73080; 73110; 80053; 84550; 85025; 86617; 86618

== ENCOUNTER 2024-01-08 12:03 | Outpatient (REF) | payer OTHER, SELFPAY ==
[2024-01-08 13:56] LABS: Anion Gap 12 (12-20); Blood Urea Nitrogen 40 mg/dL (9-16); Calcium 8.9 mg/dL (8.4-10.2); Carbon Dioxide 27 mmol/L (22-29); Chloride 108 mmol/L (96-108); Estimated Glomerular Filt Rate 29; Glucose Random 166 mg/dL (60-115); Potassium 3.9 mmol/L (3.3-5.1); Sodium 143 mmol/L (135-145)
== END 2024-01-08 12:04 | disposition home or self-care (01) ==
LOC: HO.HHCL 12:03
PROVIDERS: Visit Provider Nurse Practitioner Family
DX: I50.42 Chronic combined systolic (congestive) and diastolic (congestive) heart failure (principal)
CPT/HCPCS: 36415; 80048

== ENCOUNTER 2024-01-14 13:28 | Outpatient (AMB) | payer OTHER, SELFPAY ==
[2024-01-14 13:39] VITALS: BP 142/62; PULSE 58; BMI 32.2
--- NOTE | 2024-01-14 13:39 | A.OFFVIS_ITS ---
Vital Signs 01/14/24 13:39 Height 5 ft 7 in Weight 205 lb 7.533 oz BMI 32.2 BP 142/62 H Blood Pressure Location Rt brachial Position Sitting Pulse 58 Pulse Source Monitor Intake Visit Reasons: Colonoscopy/[place] Reinforcing Bar Setter Required: No Junior Project Coordinator: Junior Project Coordinator Present Accompanied by: Daughter Allergies No Known Allergies [No Known Allergies*] Allergy (Verified 01/14/24 13:42) Medication List - Last Reconciled 01/14/24 by Cate Toussaint NP-C amlodipine 10 mg PO DAILY apixaban (Eliquis) 2.5 mg PO BID atorvastatin 40 mg PO DAILY blood sugar diagnostic Use 1 test strip once a day blood-glucose meter As directed calcitriol 0.25 mcg PO Q2D chlorthalidone 25 mg PO DAILY dapagliflozin propanediol (Farxiga) 10 mg PO DAILY docusate sodium 100 mg PO BEDTIME ferrous sulfate 325 mg PO BID 30 days hydroxyzine HCl 25 mg PO BID PRN lancets As directed lisinopril 40 mg PO DAILY potassium chloride ER 10 mEq PO DAILY HPI HPI Colonoscopy/[place]: Details: Ethan is a 73-year-old male with past medical history of hypertension, hyperlipidemia, chronic kidney disease, atrial fibrillation and on Eliquis for anticoagulation, anemia, Congestive heart failure, cardiomyopathy who presents for follow-up. Today he reports he has been doing well overall. He has not had any bleeding issues. He continues on Eliquis for anticoagulation. He does have a plan for an upcoming colonoscopy. He has not had any chest discomfort at rest or with activity. No concerning shortness of breath, PND, orthopnea or edema. No dizziness, presyncope, syncope, falls. He is taking all meds as directed. Daughter present. She is assisting with Zambian translation at their request, permit signed. [facility] Medical History Hypertension Chronic atrial fibrillation CHF (congestive heart failure) CKD (chronic kidney disease) CKD (chronic kidney disease) Former smoker Depression Diabetes High cholesterol Surgical History History of aneurysm History of shoulder surgery Family History Father No problems noted. Mother Diabetes Hypertension Cancer Son No problems noted. Son No problems noted. Son No problems noted. Daughter No problems noted. Daughter No problems noted. Social History Household Members: Spouse Household Members Other:: Housing: Apartment Do you presently have visiting nurse or other home services: No Alcohol intake: never Patient Tobacco Use Status: Never used Tobacco service: Yes Current occupational status: disabled Review of Systems Const All systems reviewed & are unremarkable except as noted in HPI and below ENT Denies dizziness Card Denies chest pain, Denies chest pain at rest, Denies chest pain with activity, Denies rapid heart rate, Denies pedal edema, Denies edema, Denies leg edema, Denies lightheadedness, Denies palpitations, Denies dyspnea, Denies dyspnea on exertion and Denies orthopnea Resp Denies cough, Denies dyspnea and Denies dyspnea on exertion GI Denies hematochezia and Denies change in stool character Musc Denies abnormal gait, Denies limited range of motion, Denies muscle cramps, Denies muscle weakness, Denies numbness, Denies radiating pain into limb, Denies stiffness and Denies tingling Neuro Denies abnormal gait, Denies dizziness, Denies numbness and Denies tingling Endo Denies palpitations Physical Exam Vital Signs: Last Vital Signs Pulse 58 01/14/24 13:39 BP 142/62 H 01/14/24 13:39 BMI result Body Mass Index 32.2 Const General: cooperative, healthy appearing, comfortable and no acute distress Orientation/consciousness: patient oriented x3 Neck Neck: Yes normal visual inspection Resp Effort & Inspection: normal respiratory effort Auscultation: clear to auscultation bilaterally, no crackles, no rales, no rhonchi and no wheezes Cardio Jugular venous distension: no JVD Rate: regular rate Rhythm: abnormal rhythm Heart sounds: S1 normal heart sound present, S2 normal heart sound present, no gallops, no murmurs and no rubs Neuro General: patient oriented x3 Extrem General: Yes normal to inspection, No no pedal edema and No calf tenderness Psych Appearance: grossly normal Mental Status: mental status grossly normal Speech and movement: Normal speech and movement present Office Procedures EKG Details: Today, read by me, atrial fibrillation with slow ventricular response, incomplete left bundle branch block, rate 58, QTC 431 milliseconds [id number], Complete Quality Reporting (2019) Adult ([facility] 138/10/04/68) Smoking risk assessment performed?: Yes Patient Tobacco Use Status: Never used Tobacco Assessment & Plan Assessment & Plan (1) Chronic atrial fibrillation: Code(s): I48.20 - Chronic atrial fibrillation, unspecified Category: Medical Plan: Reported History of chronic atrial fibrillation which had been followed by his PCP. He has not required rate slowing medications due to controlled heart rates, confirmed during last hospitalization. He has been on Eliquis for anticoagulation. [place] [facility], he was noted to have significant anemia with hemoglobin down to 6.3, requiring 3 units of packed cells. He underwent and EGD with findings of no blood or potential source of anemia noted in the upper GI track, anemia thought to be most likely related to colonic or small-bowel source. On discharge his Eliquis was held then resumed at lower dose. Last labs 12/31/2023 showed hematocrit 35.6. He has scheduled for an upcoming colonoscopy. Will keep Eliquis at that dose at this time. If colonoscopy okay then will plan to increase Eliquis to 5 mg b.i.d. which is appropriate for his age and weight. EKG done today showing atrial fibrillation with slow ventricular response, rate 58. Last Echocardiogram done 12/20/2022 showed EF 68%, moderate increase in the LV thickness, severe biatrial enlargement, mild MR, mild TR and mild pulmonary hypertension. At this time he denies any concerning symptoms. Will check Holter monitor to ensure that heart rates are well controlled. Will update echocardiogram to reassess heart structurally. Nuclear stress test was previously ordered however not completed by him. At this time he is no anginal sounding symptoms so will hold off. It is unknown how long he has had atrial fibrillation. Cardiology follow-up in 6 months, sooner if needed. (2) CHF (congestive heart failure): Code(s): I50.9 - Heart failure, unspecified Category: Medical Plan: Finding of Congestive heart failure during hospital admission last year in the setting of significant anemia. He has not had recurrent decompensated heart failure since that time. He continues on his usual chlorthalidone. He has known chronic kidney disease. Last labs done 01/08/2024 showed creatinine 2.24, potassium 3.9. He continues on lisinopril and Farxiga for heart failure management. No med changes made at this time. (3) Hypertension: Code(s): I10 - Essential (primary) hypertension Category: Medical Qualifiers: Hypertension type: unspecified Qualified Code(s): I10 - Essential (primary) hypertension Plan: Blood pressure mildly elevated today. He reports compliance with his medications. Daughter states they monitor his blood pressure at home routinely. His top number typically runs 130 systolic. Will have him continue amlodipine, chlorthalidone, lisinopril. (4) Cardiomyopathy: Code(s): I42.9 - Cardiomyopathy, unspecified Category: Medical Plan: According to consult note patient does have reported history of having reduced EF 35-40% in the past. Echocardiogram most recently done showed normal EF. (5) Preop cardiovascular exam: Code(s): Z01.810 - Encounter for preprocedural cardiovascular examination Category: Medical Plan: Preop for colonoscopy. I have ordered an echocardiogram and Holter monitor on this patient. Test do not need to be completed prior to his procedure. His Eliquis can be held for 48 hours prior to colonoscopy and restarted as soon as cleared by provider to do so. Continue all other medications. He is on Farxiga which can be held at the discretion of the provider as well. Intermediate cardiac risk. ekg monitor tech to watch AFib, avoid fluid overload. Call/consult Cardiology if needed. Orders: Orders CA echo transthoracic complete 01/14/24 I42.9 - Cardiomyopathy, unspecified Coding Level of Care Code Est Pt Level 4 (65698) Diagnoses Chronic atrial fibrillation I48.20 CHF (congestive heart failure) I50.9 Essential hypertension I10 Hypertension type: unspecified Cardiomyopathy I42.9 Preop cardiovascular exam Z01.810 CPT Codes EKG - CPT: 76615-[id number], Complete ([id number]) Time Spent (min) 28
== END 2024-01-14 14:05 | disposition home or self-care (01) ==
PROVIDERS: PCP Student in an Organized Health Care Education/Training Program; Visit Provider Nurse Practitioner Family
DX: I48.91 Unspecified atrial fibrillation (principal); I44.7 Left bundle-branch block, unspecified
CPT/HCPCS: 93010; 99214

== ENCOUNTER → 2024-01-14 13:28 | Outpatient (BNVA) | payer OTHER, SELFPAY | PROVIDERS: PCP Student in an Organized Health Care Education/Training Program; Visit Provider Nurse Practitioner Family | DX: Z01.810 Encounter for preprocedural cardiovascular examination (principal); I11.0 Hypertensive heart disease with heart failure; I48.20 Chronic atrial fibrillation, unspecified; I50.9 Heart failure, unspecified; I42.9 Cardiomyopathy, unspecified; Z79.01 Long term (current) use of anticoagulants | CPT/HCPCS: 93005; 99212 ==

== ENCOUNTER 2024-01-21 12:04 | Outpatient (REF) | payer OTHER, SELFPAY ==
[2024-01-21 13:46] LABS: Anion Gap 15 (12-20); Blood Urea Nitrogen 41 mg/dL (9-16); Carbon Dioxide 26 mmol/L (22-29); Chloride 105 mmol/L (96-108); Estimated Glomerular Filt Rate 32; Glucose Random 105 mg/dL (60-115); Potassium 3.9 mmol/L (3.3-5.1); Sodium 142 mmol/L (135-145)
== END 2024-01-21 12:05 | disposition home or self-care (01) ==
LOC: HO.HHCL 12:04
PROVIDERS: Visit Provider Nurse Practitioner Family
DX: N18.32 Chronic kidney disease, stage 3b (principal)
CPT/HCPCS: 36415; 80048

== ENCOUNTER 2024-02-06 11:58 | Outpatient (REF) | payer OTHER, SELFPAY ==
--- NOTE | ~2024-02-06 | XR_ITS ---
EXAMINATION: XR KNEE, RIGHT CLINICAL INFORMATION: Pain. COMPARISON: 12/27/2023. TECHNIQUE: AP view of the left knee. AP and lateral views of the right knee. FINDINGS: RIGHT KNEE: Diffuse demineralization. Moderate narrowing of the medial compartment. Small joint effusion. Atherosclerotic calcifications. Prominent anterior superior and inferior patellar spurs. Large exostosis along the tibial tuberosity with possible discontinuity/fracture redemonstrated, but more prominent since 03/10/2021, possibly due to technical differences. LEFT KNEE: Diffuse demineralization. Mild narrowing of the medial compartment with small medial marginal osteophytes. Small calcification in the soft tissues medial to the proximal tibia. XR/XR knee RT 2V IMPRESSION: 1. Moderate degenerative changes in the bilateral knees, right greater than left. 2. Large exostosis along the right tibial tuberosity with possible discontinuity/fracture redemonstrated, but more prominent since 03/10/2021, possibly due to technical differences.
--- NOTE | ~2024-02-06 | XR_ITS ---
EXAMINATION: XR KNEE, RIGHT CLINICAL INFORMATION: Pain. COMPARISON: 12/27/2023. TECHNIQUE: AP view of the left knee. AP and lateral views of the right knee. FINDINGS: RIGHT KNEE: Diffuse demineralization. Moderate narrowing of the medial compartment. Small joint effusion. Atherosclerotic calcifications. Prominent anterior superior and inferior patellar spurs. Large exostosis along the tibial tuberosity with possible discontinuity/fracture redemonstrated, but more prominent since 03/10/2021, possibly due to technical differences. LEFT KNEE: Diffuse demineralization. Mild narrowing of the medial compartment with small medial marginal osteophytes. Small calcification in the soft tissues medial to the proximal tibia. XR/XR knee LT 1V IMPRESSION: 1. Moderate degenerative changes in the bilateral knees, right greater than left. 2. Large exostosis along the right tibial tuberosity with possible discontinuity/fracture redemonstrated, but more prominent since 03/10/2021, possibly due to technical differences.
== END 2024-02-06 11:59 | disposition home or self-care (01) ==
LOC: HO.HOSX 11:58
PROVIDERS: PCP Student in an Organized Health Care Education/Training Program; Visit Provider Physician Assistant
DX: M17.12 Unilateral primary osteoarthritis, left knee (principal)
CPT/HCPCS: 20610; 73560; 99202; J1010

== ENCOUNTER 2024-02-06 11:58 | Outpatient (AMB) | payer OTHER, SELFPAY ==
--- NOTE | 2024-02-06 12:53 | MHC.OFFVIS ---
Vital Signs 02/06/24 12:56 Height 5 ft 7 in Weight 205 lb BMI 32.1 Intake Visit Reasons: N/P Acute pain of left knee Intake Note: Ronald is a 73 year old male who presents today as a new patient for a evaluation of his left knee pain. Patient off and on pain for a couple months. Pain is on the medial aspect of the left knee per patient. He states his pain is worse when sitting, using the stairs and standing. Patient has tried and failed taking 3 + months of Tylenol and NSIADs. Allergies No Known Allergies [No Known Allergies*] Allergy (Verified 02/06/24 12:56) HPI HPI N/P Acute pain of left knee: Details: 73-year-old male, who is Indonesian speaking, presents in the office today, as a new patient, for evaluation of acute left knee pain.?The patient was referred to the office by Dr. Corby Jacobs with a complaint of left knee pain along the medial aspect which had been increasing for several weeks. He denied any injury or trauma to the left knee.? While in the office today the patient reports that he has been experiencing intermittent pain for a couple of months, localized along the medial aspect of the left knee. He reports that his pain worsens when sitting, using stairs, and standing; despite trying Tylenol and NSAIDs for over three months,?which have not provided relief.? Patient has a significant medial history of chronic kidney disease, stage 4. He also has a history of diabetes mellitus with no A1c on record in the EHR.? [facility] Medical History Hypertension Chronic atrial fibrillation CHF (congestive heart failure) CKD (chronic kidney disease) CKD (chronic kidney disease) Former smoker Depression Diabetes High cholesterol Surgical History History of aneurysm History of shoulder surgery Family History Father No problems noted. Mother Diabetes Hypertension Cancer Son No problems noted. Son No problems noted. Son No problems noted. Daughter No problems noted. Daughter No problems noted. Social History Household Members: Spouse Household Members Other:: Housing: Apartment Do you presently have visiting nurse or other home services: No Alcohol intake: never Patient Tobacco Use Status: Never used Tobacco service: Yes Current occupational status: disabled Review of Systems Const All systems reviewed & are unremarkable except as noted in HPI and below Physical Exam Vital Signs: BMI result Body Mass Index 32.1 Const General: cooperative and no acute distress Orientation/consciousness: patient oriented x3 Resp Effort & Inspection: normal respiratory effort and able to speak in complete sentences Cardio Peripheral pulses: Peripheral pulses 2+ throughout Skin General skin exam: no rashes or lesions noted Neuro General: patient oriented x3 Extrem Other: Left knee: Normal to inspection. No ecchymosis, erythema, or joint effusion. Full ROM. Crepitus felt with ROM. NVI. Office Procedures Joint Injection/Drain Joint Injection/Drain Primary Site: left knee Prep: site was prepped using aseptic technique, ethochloride spray was applied and injection warnings given Injected: 40 mg of, DepoMedrol, with 8 mL of (2% plain lido ) and in the joint Approach Used: anterolateral Procedure: The patient tolerated the procedure well, but had some pain with the injection and there was some relief with the local anesthesia Coding 68686 - Large joint Procedure code (CPT) selection complete Quality Reporting (2019) Adult ([facility] ) Smoking risk assessment performed?: Yes Patient Tobacco Use Status: Never used Tobacco Assessment & Plan Assessment & Plan (1) Osteoarthritis of left knee: Code(s): M17.12 - Unilateral primary osteoarthritis, left knee Category: Medical Plan Mr. Cristina is a 73-year-old male, who is Indonesian speaking, presents in the office today, as a new patient, for evaluation of acute left knee pain.?The patient was referred to the office by Dr. Corby Jacobs with a complaint of left knee pain along the medial aspect which had been increasing for several weeks. He denied any injury or trauma to the left knee.? While in the office today the patient reports that he has been experiencing intermittent pain for a couple of months, localized along the medial aspect of the left knee. He reports that his pain worsens when sitting, using stairs, and standing; despite trying Tylenol and NSAIDs for over three months,?which have not provided relief.? Patient has a significant medial history of chronic kidney disease, stage 4. He also has a history of diabetes mellitus with no A1c on record in the EHR.? ? The patient was offered a cortisone injection in the left knee with 40 mg of DepoMedrol. The patient was explained the risk, benefits, and alternatives to receiving this injection. After receiving consent for the injection, the patient had the procedure done while in the office today. The patient tolerated the procedure well with no complications.? ? Due to the patient?s history of diabetes, they were instructed to monitor his blood glucose level. The patient was informed that they could see a rise in their numbers and if the numbers became too high, they were instructed to call their PCP. The patient was also informed that they could have facial flushing as a side effect of the injection, but this will pass. Follow-up will be PRN, or sooner if needed.? X-rays of the left knee which were obtained while in the office today and were reviewed by me, Ermelinda Strickland PA-C, revealed osteoarthritis of the left knee. ? Orders: Orders XR knee RT 2V 02/06/24 M25.569 - Pain in unspecified knee XR knee LT 1V 02/06/24 M25.569 - Pain in unspecified knee Patient Instructions: Scribed by Felicia Brown medical records analyst, for Viktoriya Strickland PA-C on 02/06/2024 at 1:00 PM EST.? Corrections made?by Claribel Harman medical records analyst, for Viktoriya Strickland PA-C on 02/06/2024 at 12:02 pm, EST.? Coding Level of Care Code New Pt Level 4 (01878) Diagnoses Osteoarthritis of left knee M17.12 CPT Codes Coding - 75662 Large joint: 37969 - Large joint ([id number])
[2024-02-06 12:56] VITALS: BMI 32.1
== END 2024-02-06 13:18 | disposition home or self-care (01) ==
PROVIDERS: PCP Student in an Organized Health Care Education/Training Program; Visit Provider Physician Assistant
DX: M17.12 Unilateral primary osteoarthritis, left knee (principal); E11.65 Type 2 diabetes mellitus with hyperglycemia; N18.4 Chronic kidney disease, stage 4 (severe)
CPT/HCPCS: 20610; 99204

== ENCOUNTER 2024-02-08 08:54 | Outpatient (REF) | payer OTHER, SELFPAY | END 2024-02-08 08:55 | disposition home or self-care (01) | LOC: HO.HOSX 08:54 | PROVIDERS: Visit Provider Physician Assistant | DX: Z13.89 Encounter for screening for other disorder (principal) ==

== ENCOUNTER 2024-03-22 13:19 | Emergency (ER) | payer OTHER, SELFPAY ==
--- NOTE | ~2024-03-22 | XR_ITS ---
EXAMINATION: XR KNEE, LEFT CLINICAL INFORMATION: Pain for 2 weeks. No trauma COMPARISON: 12/27/23 TECHNIQUE: Four views of the left knee. FINDINGS: No acute fracture or subluxation. There is a smooth ossific density adjacent to the medial tibial plateau unchanged. Smooth ossification laterally likely a fabella. There are some smooth areas of ossification along the proximal fibula. No significant joint fluid. There are proliferative changes associated with the tibial tuberosity and the superior pole of the patella at the insertion of the quadriceps tendon. There is arterial calcification. There are some mild joint space narrowing of the medial compartment and probably the patellofemoral compartment. XR/XR knee LT 3V IMPRESSION: No acute fracture or subluxation. Proliferative changes. No suspicious interval change
[2024-03-22 13:26] VITALS: BP 113/56; PULSE 70; RESP 18; TEMP 36.3; O2SAT 95; BMI 29.2
--- NOTE | 2024-03-22 13:26 | ED.GENADULT ---
HPI - General Adult General Chief complaint: Extremity Injury, Lower Stated complaint: pain in knee Time Seen by Provider: 03/22/24 14:41 Source: patient Mode of arrival: ambulatory Limitations: language barrier (Portuguese-speaking provider network manager utilized) History of Present Illness HPI narrative: Patient is a 73-year-old male who presents emergency department for evaluation of left knee pain. He reports onset over the past 2 weeks without any precipitating injury. However when asked whether he has experienced this pain in the past he does admit over the past year he has. He states that he has trialed ibuprofen and acetaminophen without improvement. He saw orthopedics in January reports that he had a cortisone injection which did some relief but his pain has since returned. He does not have a follow-up appointment until the beginning of April. He denies any numbness or tingling to the leg. Calf pain. Any redness swelling rashes or lesions. No associated fevers or chills. No recent injury. Related Data Home Medications ?Medication ?Instructions ?Recorded ?Confirmed blood-glucose meter #1 ea 05/14/20 01/14/24 lancets #100 ea 05/14/20 01/14/24 amlodipine 10 mg tablet 10 mg PO DAILY 12/19/22 01/14/24 atorvastatin 40 mg tablet 40 mg PO DAILY 12/19/22 01/14/24 calcitriol 0.25 mcg capsule 0.25 mcg PO Q2D 12/19/22 01/14/24 chlorthalidone 25 mg tablet 25 mg PO DAILY 12/19/22 01/14/24 dapagliflozin propanediol 10 mg 10 mg PO DAILY 12/19/22 01/14/24 tablet (Farxiga) hydroxyzine HCl 25 mg tablet 25 mg PO BID PRN anxiety 12/19/22 01/14/24 lisinopril 40 mg tablet 40 mg PO DAILY 12/19/22 01/14/24 potassium chloride 10 mEq 10 meq PO DAILY 12/19/22 01/14/24 tablet,extended release Previous Rx's ?Medication ?Instructions ?Recorded blood sugar diagnostic #50 ea 01/24/21 ferrous sulfate 325 mg (65 mg 325 mg PO BID 30 days #60 tabs 11/02/23 iron) tablet docusate sodium 100 mg capsule 100 mg PO BEDTIME #90 caps 12/18/23 apixaban 5 mg tablet (Eliquis) 5 mg PO BID #60 tabs 01/21/24 Allergies Allergy/AdvReac Type Severity Reaction Status Date / Time No Known Allergies Allergy Verified 03/22/24 13:27 [No Known Allergies*] [facility] Past Medical History Medical History Hypertension Chronic atrial fibrillation CHF (congestive heart failure) CKD (chronic kidney disease) CKD (chronic kidney disease) Former smoker Depression Diabetes High cholesterol Surgical History History of aneurysm History of shoulder surgery Family History Family History Father No problems noted. Mother Diabetes Hypertension Cancer Son No problems noted. Son No problems noted. Son No problems noted. Daughter No problems noted. Daughter No problems noted. Social History Social History Household Members: Spouse Household Members Other:: Housing: Apartment Do you presently have visiting nurse or other home services: No Alcohol intake: never Patient Tobacco Use Status: Never used Tobacco Advance Directives: No Advance Directives Information Provided: No Do you have a plan to hurt others: No Plan service: Yes Current occupational status: disabled Physical Exam ED Vital Signs: Vital Signs - 24 hr 03/22/24 13:26 Temperature 97.3 F Pulse Rate 70 Respiratory Rate 18 Blood Pressure 113/56 L Pulse Oximetry 95 Oxygen Delivery Method Room Air BMI result Body Mass Index 29.2 Course Course Course Narrative: This is a rapid medical exam performed by Avery Day NP: Additional HPI, ROS, PE not included below will be deferred to primary provider. Patient is a 73-year-old male presenting with left knee pain x 2 weeks. Denies fall or other injury. No erythema/warmth. Plan: xray Medical Decision Making Medical Decision Making MDM Narrative: Patient is a 73-year-old male with known osteoarthritis of the left knee without any new precipitating injury with recent cortisone injection from Orthopedics 02/04/2024 presenting for re-evaluation of return of left knee pain. The extremity is neurovascularly intact distally. There is no obvious effusion erythema or warmth. Not consistent with septic joint. No evidence of DVT. Without trauma I have a low suspicion for acute fracture no obvious dislocation. Urine to be ambulatory with a steady gait. XR was obtained during initial triage and reveals no acute fracture. Advised conservative treatment rest, ice, compression, elevation, outpatient follow-up with orthopedics/PCP. Differential Diagnosis Differential Diagnoses: The differential diagnosis associated with the presentation includes (See narrative above) Independent Interpretation I performed an independent interpretation of an: Plain X-Ray (Osteoarthritis, no acute fracture, appears consistent with prior x-ray) Radiology Impression Discussion of test interpretation with radiology: I have reviewed the radiologist's reading. Radiologist Impression: XR/XR knee LT 3V IMPRESSION: No acute fracture or subluxation. Proliferative changes. No suspicious interval change External Record Review External record reviewed: Outpatient record Prescription Management I considered prescription management with: Pain Medication Discharge Plan Discharge Clinical Impression: Osteoarthritis of left knee Patient Disposition: Home, Self-Care Instructions: Osteoarthritis (ED), R.I.C.E. Treatment (ED) Additional Instructions: You can take Tylenol 500 mg, 2 tablets (1,000mg) every 4-6 hours as needed for pain, but not to exceed 3 doses daily (3,000mg). Follow-up with your primary care doctor and internet ecommerce specialist? Prescriptions: No Action (DME) blood sugar diagnostic Strip See Rx Instructions .ROUTE BID Qty: 50 11RF Rx Instructions: Use 1 test strip once a day Eliquis 5 mg tablet 5 mg PO BID Qty: 60 5RF atorvastatin 40 mg tablet 40 mg PO DAILY potassium chloride 10 mEq tablet extended release 10 meq PO DAILY chlorthalidone 25 mg tablet 25 mg PO DAILY amlodipine 10 mg tablet 10 mg PO DAILY hydroxyzine HCl 25 mg tablet 25 mg PO BID PRN (Reason: anxiety) lisinopril 40 mg tablet 40 mg PO DAILY calcitriol 0.25 mcg capsule 0.25 mcg PO Q2D Farxiga 10 mg tablet 10 mg PO DAILY (DME) blood-glucose meter Misc See Rx Instructions PO BID Qty: 1 Rx Instructions: As directed (DME) lancets Misc See Rx Instructions .ROUTE BID Qty: 100 Rx Instructions: As directed ferrous sulfate 325 mg (65 mg iron) tablet 325 mg PO BID 30 Days Qty: 60 11RF docusate sodium 100 mg capsule 100 mg PO BEDTIME Qty: 90 3RF Referrals: Viktoriya Strickland PA-C [Physician Sports Administrator] - Blanca Crowley MD [Primary Care Provider] - Print Language: Portuguese
--- NOTE | 2024-03-22 15:43 | PC.NURSE ---
pt left prior to dc paperwork
[2024-03-22 15:44] VITALS: BP 113/56; PULSE 70; RESP 18; TEMP 36.3; O2SAT 95
== END 2024-03-22 15:44 | disposition home or self-care (01) ==
PROVIDERS: Emergency Provider Emergency Medicine; PCP Student in an Organized Health Care Education/Training Program
DX: M17.12 Unilateral primary osteoarthritis, left knee (principal); M25.562 Pain in left knee
CPT/HCPCS: 73562; 99282; 99283

== ENCOUNTER 2024-04-04 10:12 | Outpatient (AMB) | payer OTHER, SELFPAY ==
--- NOTE | 2024-04-04 10:14 | A.OFFVIS_ITS ---
Vital Signs 04/04/24 10:15 Height 5 ft 8 in Weight 191 lb BMI 29.0 Intake Visit Reasons: OV-Osteoarthritis of left knee Intake Note: Ethan is a 73 year old male who presents today for a follow up of his right knee OA. He was last seen with Viktoriya on 02/06/24 who injected the knee. Cortisone injection was helpful but only for a short amount of time. Patient reports he h as pain all the time, he elevates his leg when needed, but doesn't take anything for pain. Allergies No Known Allergies [No Known Allergies*] Allergy (Verified 04/04/24 10:22) HPI HPI OV-Osteoarthritis of left knee: Details: Ethan is a 73 year old male who presents today for a follow up of his right knee OA. He was last seen with Viktoriya on 02/06/24 who injected the knee. Cortisone injection was helpful but only for a short amount of time. Patient reports he has pain all the time, he elevates his leg when needed, but doesn't take anything for pain. He had an injection 2 months ago and said it was only briefly helpful. [facility] Medical History Hypertension Chronic atrial fibrillation CHF (congestive heart failure) CKD (chronic kidney disease) CKD (chronic kidney disease) Former smoker Depression Diabetes High cholesterol Surgical History History of aneurysm History of shoulder surgery Family History Father No problems noted. Mother Diabetes Hypertension Cancer Son No problems noted. Son No problems noted. Son No problems noted. Daughter No problems noted. Daughter No problems noted. Social History Household Members: Spouse Household Members Other:: Housing: Apartment Do you presently have visiting nurse or other home services: No Alcohol intake: never Patient Tobacco Use Status: Never used Tobacco service: Yes Current occupational status: disabled Physical Exam Vital Signs: BMI result Body Mass Index 29.0 Extrem Other: Severe gait antalgia Tenderness to palpation medial joint line Mild effusion Quality Reporting (2019) Adult ([facility] 138//22/69) Smoking risk assessment performed?: Yes Patient Tobacco Use Status: Never used Tobacco Results Reviewed Results Reviewed: Moderate bilateral knee osteoarthritis Assessment & Plan Assessment & Plan (1) Osteoarthritis of left knee: Code(s): M17.12 - Unilateral primary osteoarthritis, left knee Category: Medical Plan: This is a 73-year-old diabetic male with left knee pain secondary to osteoarthritis. He had a steroid injection 2 months ago which was only briefly helpful. I ran through treatment options with him including nonsteroidal anti-inflammatory medication, Tylenol as well as physical therapy and gel injections. I also discussed surgery. He is not a good candidate for surgery and not interested in surgery I do think he would benefit from gel injections. Unfortunately he was rather irritated that I refused to inject his knee again today and stated that this was a ?waste of his time?. I again outlined what we were willing to do in regards to gel injections and/or nonsteroidal anti- inflammatories but he was rather rude and walked out stating why did I come here today?. Coding Level of Care Code Est Pt Level 4 (22645) Diagnoses Osteoarthritis of left knee M17.12
[2024-04-04 10:15] VITALS: BMI 29.0
== END 2024-04-04 10:28 | disposition home or self-care (01) ==
PROVIDERS: PCP Student in an Organized Health Care Education/Training Program; Visit Provider Orthopaedic Surgery
DX: M17.12 Unilateral primary osteoarthritis, left knee (principal)
CPT/HCPCS: 99213

== ENCOUNTER → 2024-04-04 10:12 | Outpatient (BNVA) | payer OTHER, SELFPAY | PROVIDERS: PCP Student in an Organized Health Care Education/Training Program; Visit Provider Orthopaedic Surgery | DX: M17.12 Unilateral primary osteoarthritis, left knee (principal) | CPT/HCPCS: 99212 ==

== ENCOUNTER 2024-04-08 11:57 | Emergency (ER) | payer OTHER, SELFPAY ==
--- NOTE | 2024-04-08 12:04 | ED_ITS ---
HPI - Extremity Injury (Lower) General Chief Complaint: Extremity Problem Stated Complaint: L KNEE PAIN,H/O ARTHRITIS PER EMS Time Seen by Provider: 04/08/24 12:00 Source: patient, EMS and old records reviewed Mode of arrival: EMS History of Present Illness ED Provider: Joey Ivan PA-C HPI Narrative: 73-year-old male with a history of anemia, CKD, AFib on Eliquis, osteoarthritis of the left knee who presents to the ER from home via EMS for evaluation of 4 days of left knee pain, 05/22. He denies any recent injury. He has been using topical cream with no improvement in the pain. Walking with a limp. He denies any redness or heat to the knee but it is swollen. He recently saw the orthopedic doctor who would not give him an injection and he was hoping for an injection here. He would like surgery on the knee but he was told he was not a good candidate MD complaint: knee injury Onset (ago): month(s) Type of Injury: unknown Place: home Severity: severe Severity scale (1-10): 10 Relieving factors: immobilization and rest Exacerbating factors: weight bearing, movement and palpation Associated symptoms: ambulatory Other symptoms: none Related Data Home Medications ?Medication ?Instructions ?Recorded ?Confirmed blood-glucose meter #1 ea 05/14/20 01/14/24 lancets #100 ea 05/14/20 01/14/24 amlodipine 10 mg tablet 10 mg PO DAILY 12/19/22 01/14/24 atorvastatin 40 mg tablet 40 mg PO DAILY 12/19/22 01/14/24 calcitriol 0.25 mcg capsule 0.25 mcg PO Q2D 12/19/22 01/14/24 chlorthalidone 25 mg tablet 25 mg PO DAILY 12/19/22 01/14/24 dapagliflozin propanediol 10 mg 10 mg PO DAILY 12/19/22 01/14/24 tablet (Farxiga) hydroxyzine HCl 25 mg tablet 25 mg PO BID PRN anxiety 12/19/22 01/14/24 lisinopril 40 mg tablet 40 mg PO DAILY 12/19/22 01/14/24 potassium chloride 10 mEq 10 meq PO DAILY 12/19/22 01/14/24 tablet,extended release Previous Rx's ?Medication ?Instructions ?Recorded blood sugar diagnostic #50 ea 06/14/21 ferrous sulfate 325 mg (65 mg 325 mg PO BID 30 days #60 tabs 11/02/23 iron) tablet docusate sodium 100 mg capsule 100 mg PO BEDTIME #90 caps 12/18/23 apixaban 5 mg tablet (Eliquis) 5 mg PO BID #60 tabs 01/21/24 oxycodone 5 mg tablet 5 mg PO BID PRN severe pain (scale 04/08/24 score 7-10) #4 tabs Allergies Allergy/AdvReac Type Severity Reaction Status Date / Time No Known Allergies Allergy Verified 04/08/24 12:36 [No Known Allergies*] Review of Systems Review of Systems: Yes all other systems are reviewed and are negative [facility] Past Medical History Medical History Hypertension Chronic atrial fibrillation CHF (congestive heart failure) CKD (chronic kidney disease) CKD (chronic kidney disease) Former smoker Depression Diabetes High cholesterol Surgical History History of aneurysm History of shoulder surgery Family History Family History Father No problems noted. Mother Diabetes Hypertension Cancer Son No problems noted. Son No problems noted. Son No problems noted. Daughter No problems noted. Daughter No problems noted. Social History Social History Household Members: Spouse Household Members Other:: Housing: Apartment Do you presently have visiting nurse or other home services: No Alcohol intake: never Patient Tobacco Use Status: Never used Tobacco Advance Directives: No Advance Directives Information Provided: No service: Yes Current occupational status: disabled Physical Exam Vital Signs: Vital Signs: Last Vital Signs Temp 97.4 F 04/08/24 14:02 Pulse 58 04/08/24 14:02 Resp 16 04/08/24 14:02 BP 186/81 H 04/08/24 14:02 Pulse Ox 97 04/08/24 14:02 O2 Del Method Room Air 04/08/24 14:02 BMI result Body Mass Index 30.4 Appearance: Alert. Oriented X3. No acute distress. HEENT: normal inspection CVS: Normal heart rate and rhythm. Pulses normal. Respiratory: No respiratory distress. Skin: Skin warm and dry. Normal skin color. Normal skin turgor. No rashes. Extremities: Left knee with mild generalized swelling, tenderness along the medial joint line. Pain with flexion past 90 degrees. No erythema or warmth over the joint. No significant joint effusion appreciated on examination. Neuro: Oriented X 3. No motor deficit. No sensory deficit. Steady gait Medications Administered Discontinued Medications Generic Name Dose Route Start Last Admin Trade Name Yousufq PRN Reason Stop Dose Admin Acetaminophen 975 mg 04/08/24 12:05 04/08/24 12:34 Acetaminophen 325 Mg Tablet PO 04/08/24 12:06 975 mg ONCE ONE Administration Amlodipine Besylate 10 mg 04/08/24 12:06 04/08/24 12:36 Amlodipine Besylate 10 Mg Tablet PO 04/08/24 12:07 10 mg ONCE ONE Administration Protocol Oxycodone HCl 5 mg 04/08/24 12:05 04/08/24 12:35 Oxycodone Hcl Immed Release 5 Mg Tablet PO 04/08/24 12:06 5 mg ONCE ONE Administration Medical Decision Making Medical Decision Making MDM Narrative: 73-year-old male with known left knee osteoarthritis presents to the ER for 1010 pain in the left knee without any recent injury. He saw orthopedics 2 days ago. He states it was a miscommunication and he had good relief with the pain from the injection in January, he was hoping for an injection yesterday. He was told he needs to go back to his primary care for a referral for this. On examination today he has mild generalized swelling. No signs of infection or gout. He was given oxycodone for pain, knee was placed in an [place] wrap. We discussed management of osteoarthritis, pain relief with around the clock Tylenol. Unable to use oral NSAIDs due to his anticoagulation. He reports no relief with a topical NSAID. Will prescribe very short course of oxycodone for severe pain only. He was advised to follow back up with Orthopedics and his PCP for further evaluation and treatment. He was given a cane. He was able to ambulate well with improvement in his pain. Comfortable discharge home. Differential Diagnosis Differential Diagnoses: The differential diagnosis associated with the presentation includes Osteoarthritis, gout, septic joint, rheumatoid arthritis, knee effusion, ligamentous injury Admission/Observation Consideration of admission/observation: Escalation of care including admission/observation considered elderly male with 10/10 pain w/ gait abnormality, considered obs for possible PT/CM however pain improved with meds. External Record Review External record reviewed: Office record, Outpatient record, Prior outpatient labs and Prior outpatient radiology Prescription Management I considered prescription management with: Pain Medication Chronic Conditions Patient?s care impacted by: Hypertension and Other (CKD) Critical Care Time Critical Care Time Critical Care Time: No Discharge Plan Discharge Clinical Impression: Osteoarthritis of left knee Qualifiers: Osteoarthritis type: unspecified Qualified Code(s): M17.12 - Unilateral primary osteoarthritis, left knee Patient Disposition: Home, Self-Care Instructions: Osteoarthritis (DC) Additional Instructions: You need to follow back up with Orthopedics. Call for an appointment. You can also get a 2nd opinion with doing the orthopedic surgeons and [place]. Call their office for Prescriptions: New oxycodone 5 mg tablet 5 mg PO BID PRN (Reason: severe pain (scale score 7-10)) Qty: 4 0RF Rx Instructions: Partial Fill upon patient request. No Action (DME) blood sugar diagnostic Strip See Rx Instructions .ROUTE BID Qty: 50 11RF Rx Instructions: Use 1 test strip once a day Eliquis 5 mg tablet 5 mg PO BID Qty: 60 5RF atorvastatin 40 mg tablet 40 mg PO DAILY potassium chloride 10 mEq tablet extended release 10 meq PO DAILY chlorthalidone 25 mg tablet 25 mg PO DAILY amlodipine 10 mg tablet 10 mg PO DAILY hydroxyzine HCl 25 mg tablet 25 mg PO BID PRN (Reason: anxiety) lisinopril 40 mg tablet 40 mg PO DAILY calcitriol 0.25 mcg capsule 0.25 mcg PO Q2D Farxiga 10 mg tablet 10 mg PO DAILY (DME) blood-glucose meter Misc See Rx Instructions PO BID Qty: 1 Rx Instructions: As directed (DME) lancets Misc See Rx Instructions .ROUTE BID Qty: 100 Rx Instructions: As directed ferrous sulfate 325 mg (65 mg iron) tablet 325 mg PO BID 30 Days Qty: 60 11RF docusate sodium 100 mg capsule 100 mg PO BEDTIME Qty: 90 3RF Referrals: [facility] [place] Orthopedic Surgeons [Provider Group] Interventions: ED Discharge Assessment Last Done: 04/08/24 14:02 Discharge Date/Time: 04/08/24 14:04 Print Language: Serbian
[2024-04-08 12:22] VITALS: BP 120/78; PULSE 54; O2SAT 99
[2024-04-08 12:33] VITALS: BP 180/52; PULSE 58; RESP 16; TEMP 36.3; O2SAT 97; BMI 30.4
[2024-04-08] MEDS: Acetaminophen 325 MG TABLET 975 MG PO (12:34)
[2024-04-08] MEDS: oxyCODONE HCl Immed Release 5 MG TABLET PO (12:35)
[2024-04-08 12:36] VITALS: BP 186/81
[2024-04-08] MEDS: amLODIPine Besylate 10 MG TABLET PO (12:36)
--- NOTE | 2024-04-08 12:43 | PC.NURSE ---
PT Medicated per OCT. PT keeps asking for injections on his knee. The PT was made aware that we don't do those injections here in the ER pt said i don't know why you guys can't do it this is a hospital you should be able to give me a injection this is ridiculous! pt teaching provided on differences of ER and outpatient Orthopedics specialty.
[2024-04-08 14:02] VITALS: BP 186/81; PULSE 58; RESP 16; TEMP 36.3; O2SAT 97
== END 2024-04-08 14:04 | disposition home or self-care (01) ==
PROVIDERS: Emergency Provider Emergency Medicine Emergency Medical Services
DX: M17.12 Unilateral primary osteoarthritis, left knee (principal); Z79.899 Other long term (current) drug therapy
CPT/HCPCS: 99283

== ENCOUNTER 2024-04-18 13:08 | Outpatient (AMB) | payer OTHER, SELFPAY ==
--- NOTE | 2024-04-18 13:54 | HO.NEPHOV_ITS ---
Vital Signs 04/18/24 13:55 Height 5 ft 8 in Weight 191 lb 8 oz BMI 29.1 BP 132/60 Blood Pressure Location Rt brachial Position Sitting Pulse 59 Pulse Source Pulse Oximeter Pulse Oximetry (%) 97 Oxygen Delivery Method Room Air Intake Visit Reasons: CKD/ 4 MO FU/LVM Telephonic Nurse Case Manager Required: Yes Telephonic Nurse Case Manager Services: Telephonic Nurse Case Manager Present Telephonic Nurse Case Manager Name: Alvarez [id number] Accompanied by: Self / Same As Patient Allergies No Known Allergies [No Known Allergies*] Allergy (Verified 04/18/24 13:57) HPI Comments Details: Ethan is a 72-year-old male with past medical history of diabetes mellitus, hypertension, hyperlipidemia, chronic kidney disease, atrial fibrillation and on Eliquis for anticoagulation. He denies retinopathy or neuropathy but is known to have proteinuria. He has been aware of his CKD for some time. His last ec hocardiogram showed cardiomyopathy with EF 35-40%. He is on lisinopril and chlorthalidone. He has no shortness of breath at rest or with activity. He is no heart palpitations, PND, orthopnea or edema. No chest discomfort, dizziness, presyncope, syncope, falls. He is taking all meds as directed. He has been on Farxiga. His blood pressure has been at goal. He denies sinusitis, epistaxis, joint swelling, photosensitivity, hematuria, nephrolithiasis, pedal edema or orthostatic symptoms. Has no history of any malignancy. He claims to be compliant with his medications. His recent serum creatinine had been stable COUNTS INCLUDE 234 BEDS AT THE [facility] Medical History Hypertension Chronic atrial fibrillation CHF (congestive heart failure) CKD (chronic kidney disease) CKD (chronic kidney disease) Former smoker Depression Diabetes High cholesterol Surgical History History of aneurysm History of shoulder surgery Family History Father No problems noted. Mother Diabetes Hypertension Cancer Son No problems noted. Son No problems noted. Son No problems noted. Daughter No problems noted. Daughter No problems noted. Social History Household Members: Spouse Household Members Other:: Housing: Apartment Do you presently have visiting nurse or other home services: No Alcohol intake: never Patient Tobacco Use Status: Never used Tobacco service: Yes Current occupational status: disabled Review of Systems Const All systems reviewed & are unremarkable except as noted in HPI and below Physical Exam Vital Signs: Last Vital Signs Pulse 59 04/18/24 13:55 BP 132/60 04/18/24 13:55 Pulse Ox 97 04/18/24 13:55 Oxygen Delivery Method Room Air 04/18/24 13:55 BMI result Body Mass Index 29.1 Const General: comfortable and no acute distress Orientation/consciousness: patient oriented x3 HEENT Head: Yes normocephalic Mouth: Normal oral and palatal mucosa present Eyes EOM: EOMs intact bilaterally Neck Neck: Yes supple Resp Auscultation: clear to auscultation bilaterally Cardio Jugular venous distension: no JVD Rate: regular rate GI Palpation (GI): Soft to palpation Auscultation: normal bowel sounds General: Yes no CVA tenderness Back/Spine/Pelvis Back: no CVA tenderness Skin General skin exam: no rashes or lesions noted Neuro General: patient oriented x3 and moves all extremities Extrem General: Yes no pedal edema Results Reviewed Nephrology Results: Hgb 10.4 g/dl (14.0-18.0) L 12/31/23 WBC 6.4 X10*3/uL (4.8-10.8) 12/31/23 Plt Count 241 X10*3/uL (160-400) 12/31/23 Sodium 142 mmol/L (135-145) 01/21/24 Potassium 3.9 mmol/L (3.3-5.1) 01/21/24 Chloride 105 mmol/L (96-108) 01/21/24 Carbon Dioxide 26 mmol/L (22-29) 01/21/24 BUN 41 mg/dL (9-16) H 01/21/24 Creatinine 2.07 mg/dL (0.5-1.4) H 01/21/24 Calcium 10.0 mg/dL (8.4-10.2) 01/21/24 Assessment & Plan Assessment & Plan (1) CKD (chronic kidney disease) stage 4, GFR 15-29 ml/min: Code(s): N18.4 - Chronic kidney disease, stage 4 (severe) Category: Medical (2) Iron deficiency: Code(s): E61.1 - Iron deficiency Category: Medical (3) Cardiomyopathy: Code(s): I42.9 - Cardiomyopathy, unspecified Category: Medical Qualifiers: Cardiomyopathy type: ischemic Qualified Code(s): I25.5 - Ischemic cardiomyopathy (4) Hydronephrosis: Code(s): N13.30 - Unspecified hydronephrosis Category: Medical Qualifiers: Hydronephrosis type: other Qualified Code(s): N13.39 - Other hydronephrosis Ghazal Long has 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 He is proteinuric. He is on RAQUEL-inhibitor. He has history of heart failure. He has a diabetic. He is on Farxiga and diuretics as well. His serum creatinine is currently stable. Imaging studies showed mildbilateral hydro for which I referred him to Urology. He is iron deficient. I have ordered iron replacement . He may need Procrit injections which I shall arrange through my office once his transferrin saturation is over 20%. Answered all questions. Follow-up appointment given Orders: Orders Blood Urea Nitrogen 04/18/24 N18.4 - Chronic kidney disease, stage 4 (severe) Parathyroid Hormone Intact 04/18/24 N18.4 - Chronic kidney disease, stage 4 (severe) Blood Urea Nitrogen 3 Months N18.4 - Chronic kidney disease, stage 4 (severe) Creatinine 04/18/24 N18.4 - Chronic kidney disease, stage 4 (severe) Electrolytes 04/18/24 N18.4 - Chronic kidney disease, stage 4 (severe) Complete Blood Count Auto Diff 04/18/24 N18.4 - Chronic kidney disease, stage 4 (severe) Vitamin D 25-OH Total 04/18/24 N18.4 - Chronic kidney disease, stage 4 (severe) Creatinine 3 Months N18.4 - Chronic kidney disease, stage 4 (severe) Electrolytes 3 Months N18.4 - Chronic kidney disease, stage 4 (severe) Referrals Urology Referral N13.30 - Unspecified hydronephrosis Coding Level of Care Code Est Pt Level 4 (15298) Diagnoses CKD (chronic kidney disease) stage 4, GFR 15-29 ml/min N18.4 Iron deficiency E61.1 Ischemic cardiomyopathy I25.5 Cardiomyopathy type: ischemic Other hydronephrosis N13.39 Hydronephrosis type: other
[2024-04-18 13:55] VITALS: BP 132/60; PULSE 59; O2SAT 97; BMI 29.1
== END 2024-04-18 14:31 | disposition home or self-care (01) ==
PROVIDERS: PCP Student in an Organized Health Care Education/Training Program; Visit Provider Internal Medicine Nephrology
DX: N18.4 Chronic kidney disease, stage 4 (severe) (principal); E61.1 Iron deficiency; I25.5 Ischemic cardiomyopathy; N13.39 Other hydronephrosis
CPT/HCPCS: 99214

== ENCOUNTER → 2024-04-18 13:08 | Outpatient (BNVA) | payer OTHER, SELFPAY | PROVIDERS: PCP Student in an Organized Health Care Education/Training Program; Visit Provider Internal Medicine Nephrology | DX: I12.9 Hypertensive chronic kidney disease with stage 1 through stage 4 chronic kidney disease, or unspecified chronic kidney disease (principal); E11.22 Type 2 diabetes mellitus with diabetic chronic kidney disease; I48.91 Unspecified atrial fibrillation; E61.1 Iron deficiency; I25.5 Ischemic cardiomyopathy; N13.39 Other hydronephrosis; N18.4 Chronic kidney disease, stage 4 (severe); Z79.01 Long term (current) use of anticoagulants | CPT/HCPCS: 99212 ==

== ENCOUNTER 2024-04-28 11:02 | Outpatient (AMB) | payer OTHER, SELFPAY ==
--- NOTE | 2024-04-28 11:25 | MHC.OFFVIS ---
Intake Visit Reasons: OV-OA left knee/pain Intake Note: Ethan is a 73 year old male who presents today for a follow up visit of his left knee OA, last injection 02/06/24. Patient was last seen at the ED on 04/08/24. He states that his pain has been getting worse since her went to the ED. . Allergies No Known Allergies [No Known Allergies*] Allergy (Verified 04/18/24 13:57) HPI HPI OV-OA left knee/pain: Details: Ethan returns today with continued left knee pain. He had an injection about 3 months ago. It was helpful for about 2 months. But he has started having pain again [facility] Medical History Hypertension Chronic atrial fibrillation CHF (congestive heart failure) CKD (chronic kidney disease) CKD (chronic kidney disease) Former smoker Depression Diabetes High cholesterol Surgical History History of aneurysm History of shoulder surgery Family History Father No problems noted. Mother Diabetes Hypertension Cancer Son No problems noted. Son No problems noted. Son No problems noted. Daughter No problems noted. Daughter No problems noted. Social History Household Members: Spouse Household Members Other:: Housing: Apartment Do you presently have visiting nurse or other home services: No Alcohol intake: never Patient Tobacco Use Status: Never used Tobacco service: Yes Current occupational status: disabled Physical Exam Extrem Other: Severe gait antalgia Tenderness to palpation medial joint line Mild effusion Office Procedures Joint Injection/Aspiration Joint Injection/Aspiration Details: Injected 1 mL of Decadron and 3 mL 1% lidocaine and 3 mL of 0.25% Marcaine. Site was prepped using aseptic technique. Patient tolerated the procedure well. Primary Site: left knee Approach Used: anterolateral Coding 74790 - Large joint Procedure code (CPT) selection complete Quality Reporting (2019) Adult ([facility] [address]/04/68) Smoking risk assessment performed?: Yes Patient Tobacco Use Status: Never used Tobacco Results Reviewed Results Reviewed: I personally reviewed relevant radiographs. FINDINGS: No acute fracture or subluxation. There is a smooth ossific density adjacent to the medial tibial plateau unchanged. Smooth ossification laterally likely a fabella. There are some smooth areas of ossification along the proximal fibula. No significant joint fluid. There are proliferative changes associated with the tibial tuberosity and the superior pole of the patella at the insertion of the quadriceps tendon. There is arterial calcification. There are some mild joint space narrowing of the medial compartment and probably the patellofemoral compartment. IMPRESSION: No acute fracture or subluxation. Proliferative changes. No suspicious interval change Assessment & Plan Assessment & Plan (1) Osteoarthritis of left knee: Code(s): M17.12 - Unilateral primary osteoarthritis, left knee Category: Medical Qualifiers: Osteoarthritis type: unspecified Qualified Code(s): M17.12 - Unilateral primary osteoarthritis, left knee Plan: Left knee OA with prominent enthesophytes. He has difficulty with daily activities. He is not interested in surgery. The injections seem to be helping and I injected his left knee again today. Coding Level of Care Code Est Pt Level 3 (48877) Diagnoses Osteoarthritis of left knee M17.12 Osteoarthritis type: unspecified CPT Codes Coding - 55115 Large joint: 39920 - Large joint ([id number])
== END 2024-04-28 12:59 | disposition home or self-care (01) ==
PROVIDERS: PCP Student in an Organized Health Care Education/Training Program; Visit Provider Orthopaedic Surgery
DX: M17.12 Unilateral primary osteoarthritis, left knee (principal)
CPT/HCPCS: 20610; 99213

== ENCOUNTER → 2024-04-28 11:02 | Outpatient (BNVA) | payer OTHER, SELFPAY | PROVIDERS: PCP Student in an Organized Health Care Education/Training Program; Visit Provider Orthopaedic Surgery | DX: M17.12 Unilateral primary osteoarthritis, left knee (principal) | CPT/HCPCS: 20610; 99212; J0665; J1100 ==

== ENCOUNTER 2024-06-03 10:01 | Outpatient (AMB) | payer OTHER, SELFPAY ==
--- NOTE | 2024-06-03 10:07 | A.OFFVIS_ITS ---
Intake Visit Reasons: mild bilateral hydronephrosis Allergies No Known Allergies [No Known Allergies*] Allergy (Verified 04/18/24 13:57) HPI Comments Details: Ethan is a pleasant male. He is a patient of Dr.Ponce Anderson. He is seen for the following urologic conditions - bilateral hydronephrosis Follows with Dr. Guerin Nephrology Baseline creatinine 2.1 Renal ultrasound bilateral hydro Discussion today has adequate urinary stream and emptying. No evidence of retention. Will obtain Lasix renogram to confirm adequate emptying from kidneys [facility] Medical History Hypertension Chronic atrial fibrillation CHF (congestive heart failure) CKD (chronic kidney disease) CKD (chronic kidney disease) Former smoker Depression Diabetes High cholesterol Surgical History History of aneurysm History of shoulder surgery Family History Father No problems noted. Mother Diabetes Hypertension Cancer Son No problems noted. Son No problems noted. Son No problems noted. Daughter No problems noted. Daughter No problems noted. Social History Household Members: Spouse Household Members Other:: Housing: Apartment Do you presently have visiting nurse or other home services: No Alcohol intake: never Patient Tobacco Use Status: Never used Tobacco service: Yes Current occupational status: disabled Review of Systems Const Denies chills and Denies fever(s) Card Reports no additional complaints and Denies syncope Resp Denies cough GI Denies abdominal pain and Denies heartburn Reports as per HPI and Denies change in libido Neuro Denies syncope Psych Denies change in libido Endo Denies change in libido Physical Exam Const General: cooperative, healthy appearing, comfortable and no acute distress Orientation/consciousness: patient oriented x3 HEENT Face and sinus: Yes normal facial exam Mouth: moist mucous membranes Neck Neck: Yes normal visual inspection, Yes full ROM and Yes trachea midline Chest Chest palpation & inspection: normal inspection of the chest Resp Effort & Inspection: normal respiratory effort, able to speak in complete sentences and no respiratory distress GI Inspection: Yes normal to inspection Back/Spine/Pelvis Cervical Spine: normal cervical lordosis Thoracic/Lumbar Spine: thoracic and lumbar spine normal to inspection Skin General skin exam: no rashes or lesions noted Neuro General: patient oriented x3, gait normal, tone normal and moves all extremities Extrem General: Yes normal to inspection and Yes capillary refill normal Quality Reporting (2019) Adult ([facility] [address]/04/68) Smoking risk assessment performed?: Yes Patient Tobacco Use Status: Never used Tobacco Assessment & Plan Assessment & Plan (1) Hydronephrosis: Code(s): N13.30 - Unspecified hydronephrosis Category: Medical Qualifiers: Hydronephrosis type: other Qualified Code(s): N13.39 - Other hydronephrosis Plan Lasix renogram Four week follow-up tele Orders: Orders NM renal flow w pharm int Today N13.30 - Unspecified hydronephrosis, N13.39 - Other hydronephrosis Patient Instructions: Imaging studies, laboratory and physical exam results were discussed and reviewed in detail. No major barriers to patient understanding were identified. An opportunity to ask questions regarding the treatment plan was provided. All questions were answered. The patient expressed understanding and agreement with the above treatment plan. The patient is aware they should contact our office by phone for worsening of t heir current condition or the appearance of new urologic symptoms. Compliance is encouraged with any medications and followup testing that is ordered. It is a privilege to participate in the urologic care of your patient. If you have any questions or concerns regarding treatment for the above conditions, or other urologic issues, please do not hesitate to contact me. The office telephone contact is [phone]. This note is constructed using voice recognition software. While every effort has been made to ensure accuracy windshield technician errors may have been included. Yours sincerely, Dr Kong Duarte MD, [facility] - Urology Providers of Expert, Compassionate Care for the Genitourinary System Coding Level of Care Code New Pt Level 4 (81180) Diagnoses Other hydronephrosis N13.39 Hydronephrosis type: other
== END 2024-06-03 10:38 | disposition home or self-care (01) ==
PROVIDERS: PCP Student in an Organized Health Care Education/Training Program; Visit Provider Urology
DX: N13.39 Other hydronephrosis (principal)
CPT/HCPCS: 99204

== ENCOUNTER → 2024-06-03 10:01 | Outpatient (BNVA) | payer OTHER, SELFPAY | PROVIDERS: PCP Student in an Organized Health Care Education/Training Program; Visit Provider Urology | DX: N13.39 Other hydronephrosis (principal) | CPT/HCPCS: 99202 ==

== ENCOUNTER 2024-06-30 11:03 | Outpatient (REF) | payer OTHER, SELFPAY ==
[2024-06-30 11:37] LABS: MANUAL DIFF FLAG NO
[2024-06-30 11:56] LABS: Basophils Percent Auto 0.3 % (0-2); Eosinophils Absolute Auto 0.1 X10*3/uL (0.0-0.4); Eosinophils Percent Auto 1.4 % (0-4); Hematocrit 44.7 % (42.0-52.0); Hemoglobin 15.1 g/dl (14.0-18.0); Imm Gran Abs Auto 0.09 X10*3/uL (0.00-0.03); Imm Gran Pct Auto 1.2 % (0.0-0.4); Lymphocytes Absolute Auto 1.4 X10*3/uL (1.2-4.9); Lymphocytes Percent Auto 18.7 % (20-40); Mean Corpuscular HGB Conc 33.8 g/dl (31.0-36.0); Mean Corpuscular Hemoglobin 28.4 pg (27.0-33.0); Mean Corpuscular Volume 84.2 fL (80.0-98.0); Mean Platelet Volume 10.1 fL (9.4-12.4); Monocytes Absolute Auto 0.5 X10*3/uL (0.1-1.2); Monocytes Percent Auto 7.5 % (2-11); Neutrophils Absolute Auto 5.1 x10*3/uL (2.0-8.3); Neutrophils Percent Auto 70.9 % (45-73); Platelet Count 169 X10*3/uL (160-400); Red Blood Count 5.31 X10*6/uL (4.60-5.80); Red Cell Distribution Width 14.8 % (11.0-16.0); White Blood Count 7.2 X10*3/uL (4.8-10.8)
[2024-06-30 12:25] LABS: Anion Gap 13 (12-20); Blood Urea Nitrogen 41 mg/dL (9-16); Carbon Dioxide 25 mmol/L (22-29); Chloride 105 mmol/L (96-108); Estimated Glomerular Filt Rate 31; Iron 37 mcg/dL (45-160); Percent Iron Saturation 14 % (15-50); Potassium 3.3 mmol/L (3.3-5.1); Sodium 140 mmol/L (135-145); Total Iron Binding Capacity 271 mcg/dL (228-428); Unsaturated Iron Binding 234 ug/dL
[2024-06-30 12:39] LABS: Parathyroid Hormone Intact 310.8 pg/mL (8.7-77.1)
[2024-06-30 12:43] LABS: Ferritin 61 ng/mL (20-250); Vitamin D 25-OH Total 35.9 ng/mL (>30)
[2024-07-01 22:43] LABS: IgA 357 mg/dL (70-320); IgG 1392 mg/dL (600-1540); IgM 115 mg/dL (50-300)
== END 2024-06-30 11:04 | disposition home or self-care (01) ==
LOC: HO.HHCL 11:03
PROVIDERS: Visit Provider Internal Medicine Nephrology
DX: N18.4 Chronic kidney disease, stage 4 (severe) (principal); E61.1 Iron deficiency; D63.1 Anemia in chronic kidney disease; I10 Essential (primary) hypertension
CPT/HCPCS: 80051; 82306; 82565; 82728; 82784; 83540; 83970; 84520; 85025; 86334

== ENCOUNTER 2024-07-04 11:46 | Outpatient (REF) | payer OTHER, SELFPAY ==
[2024-07-04 13:37] LABS: Anion Gap 12 (12-20); Blood Urea Nitrogen 42 mg/dL (9-16); Calcium 9.2 mg/dL (8.4-10.2); Carbon Dioxide 28 mmol/L (22-29); Chloride 104 mmol/L (96-108); Estimated Glomerular Filt Rate 34; Glucose Random 110 mg/dL (60-115); Potassium 3.4 mmol/L (3.3-5.1); Sodium 141 mmol/L (135-145)
== END 2024-07-04 11:47 | disposition home or self-care (01) ==
LOC: HO.LAB 11:46
PROVIDERS: Internal Medicine Nephrology; Absent Provider General Practice; PCP Nurse Practitioner Family; Visit Provider Nurse Practitioner Family
DX: N18.32 Chronic kidney disease, stage 3b (principal)
CPT/HCPCS: 36415; 80048

== ENCOUNTER 2024-07-25 09:59 | Outpatient (AMB) | payer OTHER, SELFPAY ==
--- NOTE | 2024-07-25 10:09 | HO.NEPHOV_ITS ---
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 He denies retinopathy or neuropathy but is known to have proteinuria. He has been aware of his CKD for some time. His last echocardiogram showed cardiomyopathy with EF 35-40%. He is on lisinopril and chlorthalidone. He has no shortness of breath at rest or with activity. He is no heart palpitations, PND, orthopnea or edema. No chest discomfort, dizziness, presyncope, syncope, falls. He is taking all meds as directed. He has been on Farxiga. His blood pressure has been at goal. He denies sinusitis, epistaxis, joint swelling, photosensitivity, hematuria, nephrolithiasis, pedal edema or orthostatic symptoms. Has no history of any malignancy. He claims to be compliant with his medications. His recent serum creatinine had been stable [facility] Medical History Hypertension Chronic atrial fibrillation CHF (congestive heart failure) CKD (chronic kidney disease) CKD (chronic kidney disease) Former smoker Depression Diabetes High cholesterol Surgical History History of aneurysm History of shoulder surgery Family History Father No problems noted. Mother Diabetes Hypertension Cancer Son No problems noted. Son No problems noted. Son No problems noted. Daughter No problems noted. Daughter No problems noted. Social History Household Members: Spouse Household Members Other:: Housing: Apartment Do you presently have visiting nurse or other home services: No Alcohol intake: never Patient Tobacco Use Status: Never used Tobacco service: Yes Current occupational status: disabled Review of Systems Const All systems reviewed & are unremarkable except as noted in HPI and below Physical Exam Vital Signs: Last Vital Signs Pulse 70 07/25/24 10:10 BP 152/70 H 07/25/24 10:10 Pulse Ox 95 07/25/24 10:10 Oxygen Delivery Method Room Air 07/25/24 10:10 BMI result Body Mass Index 30.0 Const General: comfortable and no acute distress Orientation/consciousness: patient oriented x3 HEENT Head: Yes normocephalic Mouth: Normal oral and palatal mucosa present Eyes EOM: EOMs intact bilaterally Neck Neck: Yes supple Resp Auscultation: clear to auscultation bilaterally Cardio Jugular venous distension: no JVD Rate: regular rate GI Palpation (GI): Soft to palpation Auscultation: normal bowel sounds General: Yes no CVA tenderness Back/Spine/Pelvis Back: no CVA tenderness Skin General skin exam: no rashes or lesions noted Neuro General: patient oriented x3 and moves all extremities Extrem General: Yes no pedal edema Results Reviewed Nephrology Results: Hgb 15.1 g/dl (14.0-18.0) 06/30/24 WBC 7.2 X10*3/uL (4.8-10.8) 06/30/24 Plt Count 169 X10*3/uL (160-400) 06/30/24 Sodium 141 mmol/L (135-145) 07/04/24 Potassium 3.4 mmol/L (3.3-5.1) 07/04/24 Chloride 104 mmol/L (96-108) 07/04/24 Carbon Dioxide 28 mmol/L (22-29) 07/04/24 BUN 42 mg/dL (9-16) H 07/04/24 Creatinine 1.96 mg/dL (0.5-1.4) H 07/04/24 Calcium 9.2 mg/dL (8.4-10.2) 07/04/24 PTH Intact 310.8 pg/mL (8.7-77.1) H 06/30/24 Assessment & Plan Assessment & Plan (1) CKD (chronic kidney disease) stage 4, GFR 15-29 ml/min: Code(s): N18.4 - Chronic kidney disease, stage 4 (severe) Category: Medical (2) Hypertension: Code(s): I10 - Essential (primary) hypertension Category: Medical Qualifiers: Hypertension type: unspecified Qualified Code(s): I10 - Essential (primary) hypertension (3) Secondary hyperparathyroidism (of renal origin): Code(s): N25.81 - Secondary hyperparathyroidism of renal origin Category: Medical Plan Ethan has 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 He is proteinuric. He is on RAQUEL-inhibitor. He has history of heart failure. He has a diabetic. He is on Farxiga and diuretics as well. His serum creatinine is currently stable. He is tolerating calcitriol. Imaging studies showed mildbilateral hydro & has seen Urology. Answered all questions. Follow- up appointment given Orders: Orders Creatinine 3 Months I10 - Essential (primary) hypertension, N18.4 - Chronic kidney disease, stage 4 (severe), N25.81 - Secondary hyperparathyroidism of renal origin Blood Urea Nitrogen 3 Months I10 - Essential (primary) hypertension, N18.4 - Chronic kidney disease, stage 4 (severe), N25.81 - Secondary hyperparathyroidism of renal origin Electrolytes 3 Months I10 - Essential (primary) hypertension, N18.4 - Chronic kidney disease, stage 4 (severe), N25.81 - Secondary hyperparathyroidism of renal origin Calcium 3 Months N25.81 - Secondary hyperparathyroidism of renal origin Parathyroid Hormone Intact 3 Months N25.81 - Secondary hyperparathyroidism of renal origin Coding Level of Care Code Est Pt Level 4 (42384) Diagnoses CKD (chronic kidney disease) stage 4, GFR 15-29 ml/min N18.4 Essential hypertension I10 Hypertension type: unspecified Secondary hyperparathyroidism (of renal origin) N25.81
[2024-07-25 10:10] VITALS: BP 120/70; PULSE 70; O2SAT 95
== END 2024-07-25 10:30 | disposition home or self-care (01) ==
PROVIDERS: PCP Student in an Organized Health Care Education/Training Program; Visit Provider Internal Medicine Nephrology
DX: I12.9 Hypertensive chronic kidney disease with stage 1 through stage 4 chronic kidney disease, or unspecified chronic kidney disease (principal); N18.4 Chronic kidney disease, stage 4 (severe); N25.81 Secondary hyperparathyroidism of renal origin
CPT/HCPCS: 99214

== ENCOUNTER → 2024-07-25 09:59 | Outpatient (BNVA) | payer OTHER, SELFPAY | PROVIDERS: PCP Student in an Organized Health Care Education/Training Program; Visit Provider Internal Medicine Nephrology | DX: I12.9 Hypertensive chronic kidney disease with stage 1 through stage 4 chronic kidney disease, or unspecified chronic kidney disease (principal); N18.4 Chronic kidney disease, stage 4 (severe); N25.81 Secondary hyperparathyroidism of renal origin | CPT/HCPCS: 99212 ==

== ENCOUNTER → 2024-07-31 10:57 | Outpatient (REF) | payer OTHER, SELFPAY ==
--- NOTE | ~2024-07-31 | NM_ITS ---
EXAMINATION: RENAL DYNAMIC IMAGING STUDY WITH LASIX CLINICAL INFORMATION: Reason for exam: Unspecified hydronephrosis. CORRELATION: Renal ultrasound dated October 31, 2023. TECHNIQUE: Serial gamma scintillation camera images were obtained over the posterior trunk during the initial transit and subsequent distribution of a bolus intravenous injection of 10 mCi of Tc-99m DTPA. At 30 minutes later, 40 mg of Lasix was administered intravenously and an additional 30 minutes of images obtained. FINDINGS: Initial rapid sequence images show prompt and mild asymmetry with relatively lesser flow to the left than the right kidneys. Subsequent sequential static images show mild asymmetry with relatively lesser uptake in the left than the right kidney. However, both kidneys demonstrate normal uptake with peak followed by normal corticomedullary transit. There is spontaneous and good clearance of radiotracer from the both collecting systems with nonspecific transient retention within the right renal pelvis. Only a minimal to borderline response following intravenous Lasix, can be explained by good radiotracer clearance from bilateral collecting systems at the time of Lasix administration. The T-1/2 post Lasix: Left 17 minutes and right 16 minutes. The relative function of the two kidneys based on the 2-3 minute images are: Left 39.6% and right 60.4%. NM/NM renal flow w pharm int IMPRESSION: Normal parenchymal as well as excretory function in the kidneys bilaterally. Relatively lesser functional contribution from the left than the right. Electronically signed by: Janice Pate MD 08/08/2024 10:03 AM JENNIFER
[2024-07-31] MEDS: Furosemide 40 MG/4 ML VIAL IVPUSH (14:09)
== END ==
LOC: HO.NUCMED 10:57
PROVIDERS: PCP Nurse Practitioner Family; Visit Provider Urology
DX: N13.39 Other hydronephrosis (principal); N13.30 Unspecified hydronephrosis
CPT/HCPCS: 78708; A9539; J1940

== ENCOUNTER 2024-10-17 09:13 | Outpatient (AMB) | payer OTHER, SELFPAY ==
--- OUTSIDE RECORDS SUMMARY | 2024-10-17 09:55 | XMS_ITS | Clinical Summary ---
Author Organization [facility] Facility Address [address] [place] [address] Care Team Providers Care Petroleum Engineer Name Role Phone Arielle Godinez Primary Care Provider Unavailabl e Allergies No known active allergies Medications Lancets (OneTouch Delica Plus [id number]) [facility] [place] TEST BLOOD SUGAR NEEDED, IN THE MORNING BEFORE BREAKFAST 1 Active ibuprofen (ADVIL,MOTRIN) 400 MG tablet TAKE 1 OR 2 TABLETS BY MOUTH EVERY 8-12 HOURS NEEDED 1 Active hydrOXYzine (ATARAX) 25 MG tablet TAKE 1 TABLET BY MOUTH TWICE DAILY NEEDED FOR BREAKTHROUGH ANXIETY 2 Active FeroSul 325 (65 Fe) MG tablet TAKE 1 TABLET BY MOUTH EVERY OTHER DAY WITH ORANGE JUICE 1 Active chlorthalidone 25 MG tablet 2 Active Eliquis 2.5 MG tablet Take 2.5 mg by mouth 2 (two) times a day 2 Active amLODIPine (NORVASC) 10 MG tablet Take 10 mg by mouth 1 (one) time each day 2 Active cholecalciferol (VITAMIN D-3) 50 MCG (2000 UT) capsule Take by mouth 1 (one) time each day 2 Active Acetaminophen Extra Strength 500 MG tablet TAKE 1 TABLET BY MOUTH EVERY TWELVE HOURS NEEDED 2 Active valsartan (Diovan) 160 MG tablet Take 1 tablet (160 mg total) by mouth 1 (one) time each day 90 tablet 2 2 Active calcitriol (Rocaltrol) 0.25 MCG capsule Take 1 capsule (0.25 mcg total) by mouth every other day 45 capsule 3 2 Active lisinopril 40 MG tablet Take 40 mg by mouth 1 (one) time each day 2 Active potassium chloride 10 MEQ CR tablet TAKE 1 TABLET BY MOUTH ONCE PER DAY DO NOT BREAK, CRUSH, DISSOLVE OR CHEW 60 tablet 1 3 Active Farxiga 10 MG tablet TAKE 1 TABLET BY MOUTH EVERY DAY 90 tablet 2 4 Active Active Problems Problem Noted Date Diagnosed Date Hyperuricemia 12/31/2023 Chronic combined systolic and diastolic heart fa ilure 12/05/2023 Overview (01/04/2024): Last Assessment & Plan: Denies orthopnea or dyspnea, Resume lasix, monitor for weight loss, hypotension, Rtc in 1 week sooner prn Chronic kidney disease stage 4 due to hypertensi on 12/05/2023 Skin lesion 10/08/2023 Overview (01/04/2024): Last Assessment & Plan: Lesion right presybeterian suspicious for AK, referral to derm Chronic systolic heart failure 01/30/2023 Overview (01/04/2024): As of 12/21/22 at ED he had FRANCIS, Bilateral leg edema. Treated with Bumex. EF 35- 40% in 2020 Discharged on Lasix Last Assessment & Plan: Reviewed importance of daily weights, Paroxysmal atrial fibrillation 06/30/2022 Mild cognitive disorder 06/30/2022 Acute low back pain 06/30/2022 Metabolic bone disease 06/01/2022 Stage 3b chronic kidney disease 01/05/2022 Renal osteodystrophy 01/05/2022 Type 2 diabetes mellitus wit h diabetic chronic kidney disease 01/05/2022 Vitamin D deficiency 11/01/2021 Back pain 10/17/2021 Sciatica 10/17/2021 Type 2 diabetes mellitus without complication Essential (primary) hypertension 10/17/2021 Chronic kidney disease 10/17/2021 Anxiety 10/17/2021 Hyperlipidemia 10/17/2021 Stage 3 chronic kidney disease 10/17/2021 Iron deficiency anemia 07/27/2021 Resolved Problems Problem Noted Date Diagnosed Date Resolved Date Type 2 diabetes mellitus wit h diabetic autonomic (poly)neuropathy 10/17/2021 10/17/2021 Immunizations Name Administration Dates Next Due Hepatitis B 06/28/2022,05/26/2022 Influenza, Quadrivalent, Preservative Free 08/01 Influenza, Trivalent, Adjuvanted 06/09/2013,06/14 Influenza, Unspecified 05/24/2022 Moderna SARS-COV-2 07/11/2021,01/28/2021, 021 Pneumococcal Conjugate Pcv 20 05/24/2022 Pneumococcal Polysaccharide 09/30/2019, 4 Shingrix 12/15/2021,10/07/2021 Tdap 08/23/2017,06/22/2014 Social History Tobacco Use Types Packs/Day Years Used Date Smoking Tobacco: Never Assessed Tobacco Cessation:Counseling Given: No Alcohol Use Standard Drinks/Week Comments Not Currently 0 (1 standard drink = 0.6 oz pur e alcohol) Sex and Gender Information Value Date Recorded Sex Assigned at Not on file Legal Sex Male 2:17 PM EST Gender Identity Not on file Sexual Orientation Not on file Last Filed Vital Signs Vital Sign Reading Time Taken Comments Blood Pressure 144/62 11/13/2022 2:54 PM EDT Pulse 86 11/13/2022 2:54 PM EDT Temperature - - Respiratory Rate - - Oxygen Saturation 95% 11/13/2022 2:54 PM EDT Inhaled Oxygen Concentration - - Weight 97.8 kg (215 lb 9.6 oz) 11/13/2022 2:54 P M EDT Height - - Body Mass Index - - Plan of Treatment Health Maintenance Due Date Last Done Comments Colorectal Cancer Screening: Annual FOBT 2001 Colorectal Cancer Screening: Colonoscopy 2001 Colorectal Cancer Screening: Sigmoidoscopy 2001 Diabetes: Ophthalmology Exam 10/17/2021 Diabetes: Pedal Pulse Checked 10/17/2021 Diabetes: Sensory Foot Exam 10/17/2021 Diabetes: Visual Foot Exam 10/17/2021 Diabetes: Hemoglobin A1C 01/06/2024 10/08/2023 Influenza Vaccine (#1) 2024 , 08/01/2021, 06/09/2013, Additional history exists Pneumococcal Vaccine: 65+ Years Completed 05/24/2022, 09/30/2019, 06/22/2014 Hepatitis B Vaccine Aged Out 06/28/2022, 2 No longer eligible based on patient's age to complete this topic Insurance [id number]) [place] [facility] DUAL COMPLETE ([id number]) Care Teams Petroleum Engineer Relationship Specialty Start Date End Date Arielle Godinez PCP - General Family Medicine 08/10/21
--- OUTSIDE RECORDS SUMMARY | 2024-10-17 09:55 | XMS_ITS | Encounter Summary ---
Author Organization [employer] Address [address] [place] [address] Care Team Providers Care Domestic Violence Counselor Name Role Phone Cynthia Marshall NP Primary Care Provider [phone] Encounter Details Date Type Department Care Team ([facility] st Contact Info) Description 07/04/2024 Orders Only [facility] MEDICINE [address] [place], [place] [phone] Cynthia Marshall NP [address] [place] [address] Stage 3b chronic kidney disease (CMS/HCC) Social History Tobacco Use Types Packs/Day Years Used Date Smoking Tobacco: Former Cigarettes Passive Smoke Exposure: Past Smokeless Tobacco: Former Alcohol Use Standard Drinks/Week Comments Never 0 (1 standard drink = 0.6 oz pur e alcohol) Depression Answer Date Recorded Patient Health Questionnaire-9 Score 0 01/21/2024 Patient Health Questionnaire-9 Score 0 01/21/2024 Last PHQ-9: Questionnaire Data Not on file 0 01/21/2024 Housing Stability Answer Date Recorded What is your housing situation today? I have raya simpson 01/21/[address] you li ve. Do you have problems with any of the following? None of the above 01/21/2024 Food Insecurity Answer Date Recorded Within the past 12 months, y ou worried that your food would run out before you got money to buy more: Never True 01/21/2024 Within the past 12 months,th e food you bought just didn't last and you didn't have enough money to get more: Never True 05/2024 Transportation Answer Date Recorded In the past 12 months, has l ack of transportation kept you from medical appts, meetings, work or from getting things needed for daily living? No 01/21/2024 Utilities Answer Date Recorded In the past 12 months, has t he electric, gas, oil or water company threatened to shut off services in your home? No 01/21/2024 Depression Answer Date Recorded Patient Health Questionnaire-2 Score 0 01/21/2024 Sex and Gender Information Value Date Recorded Sex Assigned at Male 06/12/2022 10:38 AM EDT Legal Sex Male 10:38 AM EDT Gender Identity Male 06/12/2022 10:38 AM EDT Sexual Orientation Straight 06/12/2022 10 :38 AM EDT documented as of this encounter Plan of Treatment Not on file documented as of this encounter Procedures Procedure Name Priority Date/Time Associated Diagnosis Comments NM KIDNEY FLOW/FUNCTION W PHARMACOLOGICAL INTERVENTION Routine 07/31/2024 10:58 AM EST documented in this encounter Results * NM Kidney Flow/Function w/ Pharmacological Intervention (07/31/2024 10:58 AM EST) Anatomical Region Laterality Modality Body Nuclear Medicine 07/31/2024 10:5 8 AM EST Narrative 08/08/2024 10:06 AM EST ? [facility] ?[address] ?[place] [address] ?Nuclear Medicine Report ? Signed ? Patient: Cristina,Ethan ?MR#: [id number] ?? 0 ? : 1950 ?Acct:[id number] ? Age/Sex: 73 / M ?ADM Date: 07/31/24 ? Loc: HO.NUCMED ? Attending Dr: Kong Duarte MD ? Ordering Physician: Kong Duarte MD ?? Date of Service: 07/31/24 ?? Procedure(s): NM renal flow w pharm int ?? Accession Number(s): [id number] ? cc: Kong Duarte MD; Cynthia Marshall [employer] ? EXAMINATION: ?? RENAL DYNAMIC IMAGING STUDY WITH LASIX ? CLINICAL INFORMATION: ?? Reason for exam: Unspecified hydronephrosis. ? CORRELATION: ?? Renal ultrasound dated October 31, 2023. ? TECHNIQUE: ?? Serial gamma scintillation camera images were obtained over the ?? posterior trunk during the initial transit and subsequent distribution ?? of a bolus intravenous injection of ??10 mCi of Tc-99m DTPA. ??At 30 ?? minutes later, 40 mg of Lasix was administered intravenously and an ?? additional 30 minutes of images obtained. ? FINDINGS: ?? Initial rapid sequence images show prompt and mild asymmetry with ?? relatively lesser flow to the left than the right kidneys. ? Subsequent sequential static images show mild asymmetry with relatively ?? lesser uptake in the left than the right kidney. However, both kidneys ?? demonstrate normal uptake with peak followed by normal corticomedullary ?? transit. ? There is spontaneous and good clearance of radiotracer from the both ?? collecting systems with nonspecific transient retention within the ?? right renal pelvis. ? Only a minimal to borderline response following intravenous Lasix, can ?? be explained by good radiotracer clearance from bilateral collecting ?? systems at the time of Lasix administration. ? The T-1/2 post Lasix: ?? Left 17 minutes and right 16 minutes. ? The relative function of the two kidneys based on the 2-3 minute images ?? are: ?? Left 39.6% and right 60.4%. ? NM/NM renal flow w pharm int ?? IMPRESSION: ?? Normal parenchymal as well as excretory function in the kidneys ?? bilaterally. ? Relatively lesser functional contribution from the left than the right. ? Electronically signed by: ??Janice Pate MD ??08/08/2024 10:03 AM ?? EST ? Dictated By: ?Janice Pate ? Signed By: ?<Electronically signed by Janice Pate in OV> ? 08/08/24 1003 ? DD/ 1058 ? TD/TT: 07/31/24 1345 ? Master Black Belt: ? Procedure Note Tamara, Image - 08/08/[address] [address] Nuclear Medicine Report Signed Patient: Tobin Cristina#: [id number] 0 : 3Acct:[id number] Age/Sex: 73 / MADM Date: 07/31/24 Loc: SUSAN Attending Dr: Kong Duarte MD Ordering Physician: Kong Duarte MD Date of Service: 07/31/24 Procedure(s): NM renal flow w pharm int Accession Number(s): [id number] cc: Kong Duarte MD; Cynthia Marshall NP EXAMINATION: RENAL DYNAMIC IMAGING STUDY WITH LASIX CLINICAL INFORMATION: Reason for exam: Unspecified hydronephrosis. CORRELATION: Renal ultrasound dated October 31, 2023. TECHNIQUE: Serial gamma scintillation camera images were obtained over the posterior trunk during the initial transit and subsequent distribution of a bolus intravenous injection of 10 mCi of Tc-99m DTPA. At 30 minutes later, 40 mg of Lasix was administered intravenously and an additional 30 minutes of images obtained. FINDINGS: Initial rapid sequence images show prompt and mild asymmetry with relatively lesser flow to the left than the right kidneys. Subsequent sequential static images show mild asymmetry with relatively lesser uptake in the left than the right kidney. However, both kidneys demonstrate normal uptake with peak followed by normal corticomedullary transit. There is spontaneous and good clearance of radiotracer from the both collecting systems with nonspecific transient retention within the right renal pelvis. Only a minimal to borderline response following intravenous Lasix, can be explained by good radiotracer clearance from bilateral collecting systems at the time of Lasix administration. The T-1/2 post Lasix: Left 17 minutes and right 16 minutes. The relative function of the two kidneys based on the 2-3 minute images are: Left 39.6% and right 60.4%. NM/NM renal flow w pharm int IMPRESSION: Normal parenchymal as well as excretory function in the kidneys bilaterally. Relatively lesser functional contribution from the left than the right. Electronically signed by: Janice Pate MD 08/08/2024 10:03 AM [facility] Dictated By: Janice Pate Signed By: <Electronically signed by Janice Pate in OV> 08/08/24 1003 DD/ 1058 TD/TT: 07/31/24 1345 Master Black Belt: [facility] External Provider IMG NM PROCEDURES Final Result documented in this encounter Visit Diagnoses Diagnosis Stage 3b chronic kidney disease (CMS/HCC) documented in this encounter Additional Health Concerns Assessment Noted Time PHQ-9 Depression Total Score: 0 06/10/20 24 11:17 AM EDT documented as of this encounter Care Teams Domestic Violence Counselor Relationship Specialty Start Date End Date Cynthia Marshall NP [address] [place] [address] PCP - General Family Medicine 09/10/23 documented as of this encounter
--- OUTSIDE RECORDS SUMMARY | 2024-10-17 09:55 | XMS_ITS | Encounter Summary ---
Author Organization [facility] [facility] Address [address] 7t [place] [address] Care Team Providers Care Health And Safety Advisor Name Role Phone Virginia Perez Primary Care Provider [phone] Blanca Crowley MD Primary Care Pro vider Cynthia Marshall NP Primary Care Provider [phone] Encounter Details Date Type Department Care Team (Late st Contact Info) Description 01/01/2023 Abstract [facility] MEDICINE [address] [place] [address] Virginia Perez FNP [address] [place] [address] [place] [address] Social History Tobacco Use Types Packs/Day Years Used Date Smoking Tobacco: Former Cigarettes Smokeless Tobacco: Former Sex and Gender Information Value Date Recorded Sex Assigned at Male 06/12/2022 10:38 AM EDT Legal Sex Male 10:38 AM EDT Gender Identity Male 06/12/2022 10:38 AM EDT Sexual Orientation Straight 06/12/2022 10 :38 AM EDT COVID-19 Exposure Response Date Recorded In the last 10 days, have yo u been in contact with someone who was confirmed or suspected to have Coronavirus/COVID-19? No / Unsure 12/19/2022 9:11 AM EDT documented as of this encounter Plan of Treatment Not on file documented as of this encounter Visit Diagnoses Not on filedocumented in this encounter Care Teams Health And Safety Advisor Relationship Specialty Start Date End Date Virginia Perez FNP PCP - General Family Medicine 04/28/22 03/28/23 Blanca Crowley MD [address] [place] [address] PCP - General Internal Medicine 03/29/23 09/09/23 Cynthia Marshall NP [address] [place] [address] PCP - General Family Medicine 09/10/23 documented as of this encounter
--- OUTSIDE RECORDS SUMMARY | 2024-10-17 09:55 | XMS_ITS | Encounter Summary ---
Author Organization [employer] Address [address] [place] [address] Care Team Providers Care Siebel Solution Architect Name Role Phone Cynthia Marshall NP Primary Care Provider [phone] Encounter Details Date Type Department Care Team ([facility] st Contact Info) Description 05/16/2024 Telephone [facility] MEDICINE [address] [place], [place] [phone] Cynthia Marshall NP [address] [place] [address] Social History Tobacco Use Types Packs/Day Years [...] AM EDT documented as of this encounter Miscellaneous Notes * Telephone Encounter - Denae Carey - 05/16/2024 3:02 PM EDT Safety and Incident Home Health Assistant Denae Carey [phone], please contact administrative underwriter when patient comesinto the [facility]. documented in this encounter Plan of Treatment Not on file documented as of this encounter Visit Diagnoses Not on filedocumented in this encounter Additional Health Concerns Assessment Noted Time PHQ-9 Depression Total Score: 0 01/21/20 24 11:17 AM EDT documented as of this encounter Care Teams Siebel Solution Architect Relationship Specialty Start Date End Date Cynthia Marshall NP [address] [place] [address] PCP - General Family Medicine 09/10/23 documented as of this encounter
--- OUTSIDE RECORDS SUMMARY | 2024-10-17 09:55 | XMS_ITS | Encounter Summary ---
Author Organization [employer] Address [address] [place] [address] Care Team Providers Care Practice Office Associate Name Role Phone Cynthia Marshall NP Primary Care Provider Encounter Details Date Type Department Care Team ([facility] st Contact Info) Description 09/26/2024 Orders Only [facility] MEDICINE [address] [place], [place] [phone] Cynthia Marshall NP [address] [place] [address] Stage 3b chronic kidney disease (CMS/HCC) Social [...] documented as of this encounter Visit Diagnoses Diagnosis Stage 3b chronic kidney disease (CMS/HCC) documented in this encounter Additional Health Concerns Assessment Noted Time PHQ-9 Depression Total Score: 0 01/21/20 11:17 AM EDT documented as of this encounter Care Teams Practice Office Associate Relationship Specialty Start Date End Date Cynthia Marshall NP [address] [place] [address] PCP - General Family Medicine 09/10/23 documented as of this encounter
--- OUTSIDE RECORDS SUMMARY | 2024-10-17 09:55 | XMS_ITS | Encounter Summary ---
Author Organization [employer] Address [address] [place] [address] Care Team Providers Care Geomatics Professor Name Role Phone Cynthia Marshall NP Primary Care Provider [phone] Encounter Details Date Type Department Care Team ([facility] st Contact Info) Description 04/11/2024 Orders Only [facility] MEDICINE [address] [place], [place] [phone] Cynthia Marshall NP [address] [place] [address] Stage 3b chronic kidney disease (CMS/HCC) Social [...] Procedure Name Priority Date/Time Associated Diagnosis Comments BASIC METABOLIC PANEL Routine 07/04/2024 12:13 PM EST Stage 3b chronic kidney disease (CMS/HCC) documented in this encounter Results * (ABNORMAL) Basic Metabolic Panel (07/04/2024 12:13 PM EST) Sodium 141 135 - 145 mmol/L [facility] Potassium 3.4 3.3 - 5.1 mmol/L [facility] Chloride 104 96 - 108 mmol/L [facility] Carbon Dioxide 28 22 - 29 mmol/L [facility] Anion Gap 12 12 - 20 [facility] Urea Nitrogen (BUN) 42(H) 9 - 16 mg/dL [facility] Creatinine, Serum 1.96(H) 0.5 - 1.4 mg/dL [facility] Estimated Glomerular Filt Rate 34 [facility] Comment:Chronic Kidney Disea se: Estimated GFR < 60 mL/min/1.82t9Gagimq Kidney Disease: Estimated GFR < 15 mL/min/1.73m2 Glucose 110 60 - 115 mg/dL [facility] Calcium 9.2 8.4 - 10.2 mg/dL [facility] Blood Venous blood specimen / Unknown 07/04/2024 12:13 PM EST 07/04/2024 12:13 PM EST us Cynthia Marshall [facility] BLOOD ORDERABLES Final Resul t [facility] [address] [place] [address] [phone] documented in this encounter Visit Diagnoses Diagnosis Stage 3b chronic kidney disease (CMS/HCC) documented in this encounter Additional Health Concerns Assessment Noted Time PHQ-9 Depression Total Score: 0 01/21/20 24 11:17 AM EDT documented as of this encounter Care Teams Geomatics Professor Relationship Specialty Start Date End Date Cynthia Marshall NP [address] [place] [address] PCP - General Family Medicine 09/10/23 documented as of this encounter
--- OUTSIDE RECORDS SUMMARY | 2024-10-17 09:55 | XMS_ITS | Encounter Summary ---
Author Organization [facility] Address [address] [place] [address] 7t [place] [address] Care Team Providers Care Mill Crane Operator Name Role Phone Virginia Perez Primary Care Provider [phone] Blanca Crowley MD Primary Care Pro vider Cynthia Marshall NP Primary Care Provider [phone] Encounter Details Date Type Department Care Team (Latest Contact Info) Description 03/31/2021 Abstract [facility] CONVERSIONS Dental, Provider, DDS Social History Tobacco Use Types Packs/Day Years Used Date Smoking Tobacco: Never Assessed Sex and Gender Information Value Date Recorded Sex Assigned at Male 06/12/2022 10:38 AM EDT Legal Sex Male 10:38 AM EDT Gender Identity Male 06/12/2022 10:38 AM EDT Sexual Orientation Straight 06/12/2022 10 :38 AM EDT documented as of this encounter Plan of Treatment Not on file documented as of this encounter Visit Diagnoses Not on filedocumented in this encounter Care Teams Mill Crane Operator Relationship Specialty Start Date End Date Virginia Perez FNP PCP - General Family Medicine 04/28/22 03/28/23 Blanca Crowley MD [address] [place] [address] PCP - General Internal Medicine 03/29/23 09/09/23 Cynthia Marshall NP [address] [place] [address] PCP - General Family Medicine 09/10/23 documented as of this encounter
--- OUTSIDE RECORDS SUMMARY | 2024-10-17 09:55 | XMS_ITS | Clinical Summary ---
Author Organization [facility] Address [address] [place] [address] Care Team Providers Care Back Hoe Machine Operator Name Role Phone Unavailable Primary Care Provider Unavailabl e Surgical History Surgery Date Site/Laterality Comments SHOULDER SURGERY 06/18/07 PROCEDURE: HISTORICAL SHOULDER SURGERY; COMMENT: Rotator cuff- Dr. Adis King APPENDECTOMY PROCEDURE: HISTORICAL APPENDECTOMY COLONOSCOPY 12/28/2011 PROCEDURE: HISTORICAL COLONOSCOPY; COMMENT: normal UPPER GASTROINTESTINAL ENDOSCOPY 03/14/2016 PROCEDURE: [place] UPPER GI ENDOSCOPY PERFORMED; COMMENT: Visually normal; duodenal biopsies: Minimal nonspecific inflammation Medical History Medical History Date Comments Unspecified essential hypertension DX:Unspecified essential hypertension Basilar artery aneurysm (CMS/HCC) 10/07/2013 DX:Basilar artery aneurysm (HCC) Type 2 diabetes, diet contro lled (CMS/HCC) 10/07/2013 DX:Type 2 diabetes, diet con trolled (HCC) Type 2 diabetes, diet contro lled (CMS/HCC) 10/07/2013 DX:Type 2 diabetes, diet con trolled (HCC) Controlled type 2 diabetes w ith renal manifestation 10/28/2013 DX:Controlled type 2 diabete s with renal manifestation Family History Medical History Relation Name Comments Asthma Daughter Heart attack Mother in her 50s Arthritis Sister Blindness Neg Hx Cataracts Neg Hx Glaucoma Neg Hx Macular degeneration Neg Hx Strabismus Neg Hx Relation Name Status Comments Daughter Father Alive Mother Sister Social History Tobacco Use Types Packs/Day Years Used Date Smoking Tobacco: Former Cigarettes 1 10.5 0 08/13/1968 - 02/27/1979 Smokeless Tobacco: Never Alcohol Use Standard Drinks/Week Comments No 0 (1 standard drink = 0.6 oz pur e alcohol) Sex and Gender Information Value Date Recorded Sex Assigned at Not on file Legal Sex Male 1:00 AM EST Gender Identity Not on file Sexual Orientation Not on file Obstetrics History Plan of Treatment Health Maintenance Due Date Last Done Comments DTaP,Tdap,and Td Vaccines (1 - Tdap) 10/22/1971 Pneumococcal Vaccine: 50+ Ye ars (1 of 1 - PCV) 2002 Zoster Vaccines (1 of 2) 2002 Abdominal Aortic Aneurysm (A AA) Screen 07/26/2022 Cholesterol Screening (Lipid Panel) 07/26/2022 Colorectal Cancer Screening: Colonoscopy 07/26/2022 Depression Screening 07/26/2022 Falls Risk Assessment 07/26/2022 Hepatitis C Screening 07/26/2022 Social Influencers of Health Screening 07/26/2022 COVID-19 Vaccine ( - 2023-2 5 season) 2024 Influenza Vaccine (#1) 2024 RSV Immunization Patients 60 + Years Old (1 - 1-dose 75+ series) 10/22/2027 HIB Vaccines Aged Out No longer eligi ble based on patient's age to complete this topic HPV Vaccines Aged Out No longer eligi ble based on patient's age to complete this topic Hepatitis A Vaccines Aged Out No long er eligible based on patient's age to complete this topic Hepatitis B Vaccines Aged Out No long er eligible based on patient's age to complete this topic IPV Vaccines Aged Out No longer eligi ble based on patient's age to complete this topic MMR Vaccines Aged Out No longer eligi ble based on patient's age to complete this topic Meningococcal ACWY Vaccine Aged Out N o longer eligible based on patient's age to complete this topic Meningococcal B Vacine Aged Out No lo nger eligible based on patient's age to complete this topic RSV Immunization Patients Un daniel 20 months Aged Out No longer eligible b ased on patient's age to complete this topic Varicella Vaccines Aged Out No longer eligible based on patient's age to complete this topic
--- OUTSIDE RECORDS SUMMARY | 2024-10-17 09:55 | XMS_ITS | Clinical Summary ---
Author Organization [employer] Address [address] [facility] 7[address] [place] [address] Care Team Providers Care Cnc Cutting Operator Name Role Phone Cynthia Marshall NP Primary Care Provider [phone] Allergies No known active allergies Medications dapagliflozin (Farxiga) 10 MG Take 1 tablet by mouth in the morning. Active hydrOXYzine HCl (Atarax) 25 MG tabletIndications :Anxiety Take 1 tablet (25 mg) by mouth every 12 (twelve) hours if needed for anxiety. 180 tablet 1 3 Active FeroSul 325 (65 Fe) MG tablet TAKE 1 TABLET BY MOUTH EVERY OTHER DAY WITH ORANGE JUICE 90 tablet 3 3 Active fluticasone (Flonase) 50 MCG/ACT nasal sprayIndications: Nasal congestion INSTILL 1 SPRAY IN EACH NOSTRIL ONCE DAILY IN THE MORNING 16 g 4 Active potassium chloride CR (Klor-Con) 10 MEQ ER tablet TAKE 1 TABLET BY MOUTH EVERY DAY. DO NOT BREAK, CRUSH, DISSOLVE OR CHEW 15 tablet 4 Active Blood Glucose Monitoring Suppl (FreeStyle Seymour Lite) w/Device kitIndications:Ty pe 2 diabetes mellitus with other specified complication, without long-term current use of insulin ([facility]) Use to test blood sugar bid dx dm 1 kit 4 Active glucose blood (tomoguidesTouch Ultra) test stripIndications: Type 2 diabetes mellitus with other specified complication, without long-term current use of insulin (CMS/HCC) test blood sugar as needed, in the morning before breakfast 100 each 11 4 Active Lancets 33G miscIndications:T ype 2 diabetes mellitus with other specified complication, without long-term current use of insulin ([facility]) 100 each 2 times daily. 60 each 11 4 Active lidocaine (Lidoderm) 5 % patch Apply 1 patch topically Once per day. Remove & discard patch within 12 hours or as directed by MD. 30 patch 2 4 12/27/19 25 Active Blood Pressure Monitoring (Omron 3 Series BP Monitor) device USE TO CHECK BLOOD PRESSURE DAILY 1 each 4 Active furosemide (Lasix) 40 MG tabletIndications :CHF (congestive heart failure), NYHA class I, chronic, combined ([facility]) Take 1 tablet daily . 30 tablet 1 4 Active Eliquis 2.5 MG tabletIndications :Paroxysmal atrial fibrillation ([facility]) TAKE 1 TABLET BY MOUTH TWICE DAILY 180 tablet 1 4 Active chlorthalidone (Hygroton) 25 MG tabletIndications :Essential hypertension TAKE 1 TABLET BY MOUTH EVERY MORNING 90 tablet 1 4 Active lisinopril 40 MG tabletIndications :Essential hypertension TAKE 1 TABLET BY MOUTH EVERY MORNING 90 tablet 1 4 Active docusate sodium (Colace) 100 MG capsule TAKE 1 CAPSULE BY MOUTH EVERY DAY AT BEDTIME 4 Active calcitriol (Rocaltrol) 0.25 MCG capsule TAKE 1 CAPSULE BY MOUTH EVERY OTHER DAY 45 capsule 1 4 Active Diclofenac Sodium 1 % gelIndications:Ch ronic pain of left knee Apply thin layer by topical route (quantity as directed on package insert) to affected area of pain 3 times daily as needed. 50 g 3 4 Active cholecalciferol (D3 Super Strength) 50 MCG (1999 UT) capsuleIndication s:Vitamin D deficiency TAKE 1 CAPSULE BY MOUTH EVERY DAY 90 capsule 1 4 Active atorvastatin (Lipitor) 40 MG tablet Take 1 tablet (40 mg) by mouth Once per day. 90 tablet 2 4 Active amLODIPine (Norvasc) 10 MG tabletIndications :Essential hypertension TAKE 1 TABLET BY MOUTH EVERY MORNING 90 tablet 3 4 Active Active Problems Problem Noted Date Diagnosed Date Other hydronephrosis 07/15/2024 Osteoarthritis of left knee 04/18/2024 Assessment & Plan (05/11/2024 11:55 AM EDT): Referral to ortho Primary osteoarthritis of both knees 03/21/2024 Assessment & Plan (03/21/2024 2:11 PM EDT): S/p visit with ortho 02/06/24 Pain from degenerative arthritis reportedly improved Prepatellar bursitis of left knee 03/21/2024 Assessment & Plan (03/21/2024 2:12 PM EDT): Swollen prepatellar bursa He reports he prays on his knees quite frequently Recommend Diclofenac gel to area and Roshan wrap x 2 weeks Light stretching as tolerated Elevated uric acid in blood 12/31/2023 Hyperuricemia 12/31/2023 CKD stage 4 secondary to hypertension 12/05/2023 Assessment & Plan (01/06/2024 2:16 PM EDT): Above goal today, resume lasix rtc in 2 weeks CHF (congestive heart failur e), NYHA class I, chronic, combined 12/05/2023 Assessment & Plan (01/24/2024 3:14 PM EDT): Reviewed continued lasix, daily weights and importance of calling for swelling, sob, or weight change Upcoming visit with cardiology Assessment & Plan (01/06/2024 2:15 PM EDT): Resume daily lasix 20 mg, monitor renal function closely, encouarged daily weights Upcoming visit with cardiology Assessment & Plan (12/08/2023 3:29 PM EDT): Denies orthopnea or dyspnea, Resume lasix, monitor for weight loss, hypotension, Rtc in 1 week sooner prn Skin lesion 10/08/2023 Assessment & Plan (10/08/2023 5:16 PM EST): Lesion right quaker suspicious for AK, referral to derm Stage 3b chronic kidney disease 10/08/2023 Assessment & Plan (10/08/2023 5:07 PM EST): Bp above goal today, Referral to renal Anemia due to stage 3a chronic kidney disease (C MS/HCC) 10/08/2023 Assessment & Plan (01/06/2024 2:15 PM EDT): Denies s/s of bleeding, trend labs monthly, in care with renal Assessment & Plan (12/08/2023 3:29 PM EDT): In care with renal, continue oral iron as managed by nephrology Assessment & Plan (10/08/2023 5:13 PM EST): Labs ordered, continue iron, Referral to renal, also referred to GI Chronic systolic heart failure 01/30/2023 Overview (01/30/2023): As of 12/21/22 at ED he had FRANCIS, Bilateral leg edema. Treated with Bumex. EF 35- 40% in 2020 Discharged on Lasix Assessment & Plan (12/08/2023 3:28 PM EDT): Reviewed importance of daily weights, Acute low back pain 06/30/2022 Anxiety 06/30/2022 Essential hypertension 06/30/2022 Assessment & Plan (01/24/2024 3:14 PM EDT): Slightly above goal today, monitor Assessment & Plan (12/08/2023 3:31 PM EDT): Above goal, rtc in 1 week for weight check and repeat bp Assessment & Plan (10/08/2023 5:05 PM EST): Above goal today, pt has not taken AM meds, rtc in 1 month to repeat bp Assessment & Plan (01/10/2023 12:34 PM EDT): 158/62 before leaving. Patient stated he did not take his blood pressure medication this morning because he was coming to the doctors office. I advised him on the importance of adhering to his medication regime unless instructed otherwise by a provider. ED precautions advised Hyperlipidemia 06/30/2022 Mild cognitive disorder 06/30/2022 Paroxysmal atrial fibrillation 06/30/2022 Assessment & Plan (10/08/2023 5:05 PM EST): Rate controlled, reports taking and tolerating renal dosed eliquis, denies smyptoms, in care with cardiology, Assessment & Plan (01/10/2023 12:36 PM EDT): Irregular RR. Conducted ECG ECG: Atrial fibrillation with normal mean ventricular response with long RR intervals, slight intraventricular delay, slight high-lateral and lateral repolarization disturbance, consider ischemia, LV overload or aspecific change Patient is on permanent Eliquis for AFIB, I do not advise making any medication changes today, patient to f/up with cardiology. Type 2 diabetes mellitus 06/30/2022 Assessment & Plan (05/11/2024 11:55 AM EDT): Well controlled continue current regimen Assessment & Plan (12/08/2023 3:31 PM EDT): Blood sugar in range in office Assessment & Plan (10/08/2023 5:15 PM EST): At goal, hgb A1c 6.1% continue farxgia, Stage 3 chronic kidney disea se due to type 2 diabetes mellitus 06/01/2022 Overview (03/29/2023): Care managed by Nephrology Metabolic bone disease 06/01/2022 Renal osteodystrophy 01/05/2022 Vitamin D deficiency 11/01/2021 Iron deficiency anemia 07/27/2021 Overview (01/30/2023): Acute blood loss, positive hemocult Received 3 PRBC at ED EGD and colonoscopy 12/21/22 Continue Eliquis 2.5mg BID after discharge. Was held during hospital stay Assessment & Plan (12/08/2023 3:33 PM EDT): Followed by nephrology , considering addition of procrit Resolved Problems Problem Noted Date Diagnosed Date Resolved Date Hospital discharge follow-up 01/09/2023 01/30/2023 Assessment & Plan (01/10/2023 10:20 AM EDT): Ordering CBC to check H&H. Patient was given 3 RBC transfusion during hospital stay. Encounters Date Type Department Care Team Description 09/26/2024 Orders Only [facility] [address] [place] [address] Cynthia Marshall NP Stage 3b chronic kidney disease (CMS/HCC) from Last 3 Months Immunizations Name Administration Dates Next Due Hep B, adult 06/28/2022,05/26/2022 Influenza High-dose Quadriva lent Preservative Free 05/24/2022 Influenza injectable quadriv alent preservative free 08/01/2021 Influenza, trivalent, adjuvanted 06/09/2013,06/14 Moderna Covid-19 Vaccine 12+ 07/11/2021,01/29/20 21,12/31/2020 Pneumococcal Conjugate PCV 20 05/24/2022 Pneumococcal Polysaccharide PPSV23 09/30/2019, Tdap 08/23/2017,06/22/2014 Zoster, Recombinant 12/15/2021,10/07/2021 Social History Tobacco Use Types Packs/Day Years Used Date Smoking Tobacco: Former Cigarettes Passive Smoke Exposure: Past Smokeless Tobacco: Former Tobacco Cessation:Counseling Given: Not Answered Alcohol Use Standard Drinks/Week Comments Never 0 [...] Orientation Straight 06/12/2022 10 :38 AM EDT Last Filed Vital Signs Vital Sign Reading Time Taken Comments Blood Pressure 148/68 07/18/2024 1:09 PM EST Pulse 52 07/18/2024 9:53 AM EST Temperature 36.6 ??C (97.9 ??F) 07/18/2024 9:51 AM ES T Respiratory Rate 14 07/18/2024 9:51 AM EST Oxygen Saturation 96% 07/18/2024 9:51 AM EST RA Inhaled Oxygen Concentration - - Weight 90.6 kg (199 lb 12.8 oz) 07/18/2024 9:51 AM EST Height 170.2 cm (5' 7 ) 07/15/2024 1:16 PM EST Body Mass Index 31.29 07/15/2024 1:16 PM EST Plan of Treatment Health Maintenance Due Date Last Done Comments CT Colonography 1952 Colonoscopy 1952 Colorectal Cancer Screening 1950 FIT DNA/Cologuard 1952 FIT 1952 FOBT 1950 Sigmoidoscopy 1952 Diabetes: Foot Exam 1962 Eye Exam 1962 Hepatitis C Screening 1970 RSV Patients and Patients Aged 60 years or older (1 - Risk 60-74 years 1-dose series) 2012 Lipid Panel 07/11/2022 07/11/2021, 07/11/2021 Hepatitis B Vaccines (3 of 3 - 19+ 3-dose series) 11/24/2022 06/28/2022, 05/26/2022 COVID-19 Vaccine ( season) 2024 07/11/2021, 01/28/2021, 12/31/2020 Influenza Vaccine (#1) 2024 2, 08/01/2021, 06/09/2013, Additional history exists Diabetes: Hemoglobin A1C 10/16/2024 024, 10/08/2023, 03/29/2023, Additional history exists Depression Screening 01/20/2025 01/21/2024, 01/21/20 SDOH Screening 01/20/2025 01/21/2024 Alcohol/Substance Use Screening 04/18/2025 04/18/2024 Tobacco Screening 07/15/2025 07/15/2024 DTaP/Tdap/Td Vaccines (3 - Td or Tdap) 08/23/2027 08/23/2017, 06/22/2014 Zoster Vaccines Completed 12/15/2021, 10/07/2021 Pneumococcal Vaccine: 50+ Years Completed 05/24/2022, 09/30/2019, 06/22/2014 HIB Vaccines Aged Out No longer eligi [...] patient's age to complete this topic Meningococcal Vaccine Aged Out No ivon jacqueline eligible based on patient's age to complete this topic RSV under 20 months Aged Out No longe r eligible based on patient's age to complete this topic Rotavirus Vaccines Aged Out No longer eligible based on patient's age to complete this topic Procedures Procedure Name Priority Date/Time Associated Diagnosis Comments NM KIDNEY FLOW/FUNCTION W PHARMACOLOGICAL INTERVENTION Routine 07/31/2024 10:58 AM EST POCT GLYCATED HEMOGLOBIN, TOTAL Routine 04/18/2024 11:36 AM EDT Type 2 diabetes mellitus with other specified complication, without long-term current use of insulin ([facility]) LIPID PANEL, STANDARD Routine 07/11/2021 10:28 AM EST from Last 3 Months or Most Recently Relevant to Health Maintenance Results * NM Kidney Flow/Function w/ Pharmacological Intervention (07/31/2024 10:58 AM EST) Anatomical Region Laterality Modality Body Nuclear Medicine 07/31/2024 10:5 8 AM EST Narrative 08/08/2024 10:06 AM EST ? [facility] ?[address] ?[place] [address] ?Nuclear Medicine Report ? Signed ? Patient: Cristina,Ethan ?MR#: [id number] ?? 0 ? : 1950 ?Acct:[id number] ? Age/Sex: 73 / M ?ADM Date: 07/31/24 ? Loc: HO.NUCMED ? Attending Dr: Kong Duarte MD ? Ordering Physician: Kong Duarte MD ?? Date of Service: 07/31/24 ?? Procedure(s): NM renal flow w pharm int ?? Accession Number(s): [id number] ? cc: Kong Duarte MD; Cynthia Marshall LABOR RELATIONS ANALYST ? EXAMINATION: ?? RENAL DYNAMIC IMAGING STUDY [...] Pate MD ??08/08/2024 10:03 AM ?? EST RP ? Dictated By: ?Janice Pate ? Signed By: ?<Electronically signed by Janice Pate in OV> ? 08/08/24 1003 ? DD/ 1058 ? TD/TT: 07/31/24 1345 ? Performance Consultant: ? Procedure Note Tamara, Carmine - 08/08/2024 [place] [address] Nuclear Medicine Report Signed Patient: Tobin Cristina#: [id number] 0 : 3Acct:[id number] Age/Sex: 73 / MADM Date: 07/31/24 [facility] Attending Dr: Kong Duarte MD Ordering Physician: Kong Duarte MD Date of Service: 07/31/24 Procedure(s): NM renal flow w pharm int Accession Number(s): [id number] cc: Kong Duarte MD; Cynthia Marshall NP [...] by: Janice Pate MD 08/08/2024 10:03 AM EST Dictated By: Janice Pate Signed By: <Electronically signed by Janice Pate in OV> 08/08/24 1003 DD/ 1058 TD/TT: 07/31/24 1345 Performance Consultant: [facility] External Provider IMG NM PROCEDURES Final Result * POCT HGB A1C (04/18/2024 11:36 AM EDT) Pathologist [facility] Hemoglobin A1C 6.0 4.0 - 6.0 % QC Media Lot # [id number] Lot# Expiration Date [id number] Blood 04/18/2024 11:3 6 AM EDT Cynthia Marshall NP POINT OF CARE TEST ENTER/EDIT OR DERABLES Final Result * (ABNORMAL) LIPID PANEL, STANDARD (07/11/2021 10:28 AM EST) Pathologist [facility] Chol/HDLC Ratio 5.7(H) <5.0 (calc) [facility] Cholesterol, Total 178 <200 mg/dL [facility] HDL Cholesterol 31(L) > OR = 40 mg/dL [facility] LDL Cholesterol 130(H) mg/dL (calc) [facility] Comment: Reference range: <100 ?? Desirable range <100 mg/dL for primary prevention; ?? <70 mg/dL for patients with CHD or diabetic patients ?? with > or = 2 CHD risk factors. ?? LDL-C is now calculated using the Rico ?? calculation, which is a validated novel method providing ?? better accuracy than the Friedewald equation in the ?? estimation of LDL-C. ?? Terry PRESCOTT et al. SHARITA. 2013;310(19): 9538-7642 ?? (http://[facility] [employer].Valensum/faq/FXG635) Non-HDL Cholesterol 147(H) <130 mg/dL (calc) [facility] Comment: For patients with diabetes plus 1 major ASCVD risk ?? factor, treating to a non-HDL-C goal of <100 mg/dL ?? (LDL-C of <70 mg/dL) is considered a therapeutic ?? option. Triglycerides 80 <150 mg/dL [facility] 07/11/2021 10:2 8 AM EST us Oly Guerrero [facility] BLOOD ORDERABLES Final Res ult [facility] [address] from Last 3 Months or Most Recently Relevant to Health Maintenance Insurance [facility] STANDARD [address] [place] [id number] Care Teams Cnc Cutting Operator Relationship Specialty Start Date End Date Cynthia Marshall NP [address] [place] [id number] PCP - General Family Medicine 09/10/23
--- OUTSIDE RECORDS SUMMARY | 2024-10-17 09:55 | XMS_ITS | Encounter Summary ---
Author Organization [employer] Address [address] [facility] [address] [place] [address] Care Team Providers Care Environmental Health And Safety Manager Name Role Phone Cynthia Marshall NP Primary Care Provider [phone] Reason for Visit * Reason Comments Med Refill Encounter Details Date Type Department Care Team ([facility] st Contact Info) Description 11/04/2023 Refill [facility] [address] [place], [place] [id number] Blanca Crowley MD [address] [place] [address] Social History Tobacco Use Types Packs/Day Years Used Date Smoking Tobacco: Former Cigarettes Passive Smoke Exposure: Past Smokeless Tobacco: Former Alcohol Use Standard Drinks/Week Comments Never 0 (1 standard drink = 0.6 oz pur e alcohol) Depression Answer Date Recorded Patient Health Questionnaire-9 Score 0 01/10/2023 Housing Stability Answer Date Recorded What is your housing situation today? I have raya simpson 06/02/[address] you li ve. Do you have problems with any of the following? None of the above 06/02/2023 Food Insecurity Answer Date Recorded Within the past 12 months, y ou worried that your food would run out before you got money to buy more: Never True 06/02/2023 Within the past 12 months,th e food you bought just didn't last and you didn't have enough money to get more: Never True Transportation Answer Date Recorded In the past 12 months, has l ack of transportation kept you from medical appts, meetings, work or from getting things needed for daily living? No 06/02/2023 Utilities Answer Date Recorded In the past 12 months, has t he electric, gas, oil or water company threatened to shut off services in your home? No 06/02/2023 Depression Answer Date Recorded Patient Health Questionnaire-2 Score 0 01/10/2023 Sex and Gender Information Value Date Recorded Sex Assigned at Male 06/12/2022 10:38 AM EDT Legal Sex Male 10:38 AM EDT Gender Identity Male 06/12/2022 10:38 AM EDT Sexual Orientation Straight 06/12/2022 10 :38 AM EDT documented as of this encounter Miscellaneous Notes * Telephone Encounter - Cynthia Marshall NP - 11/05/2023 1:46 PM EDT Approving, but needs appt for additional refills. documented in this encounter Plan of Treatment Not on file documented as of this encounter Visit Diagnoses Not on filedocumented in this encounter Additional Health Concerns Assessment Noted Time PHQ-9 Depression Total Score: 0 01/11/20 23 9:39 AM EDT documented as of this encounter Care Teams Environmental Health And Safety Manager Relationship Specialty Start Date End Date Cynthia Marshall NP [address] [place] [id number] PCP - General Family Medicine 09/10/23 documented as of this encounter
--- OUTSIDE RECORDS SUMMARY | 2024-10-17 09:55 | XMS_ITS | Encounter Summary ---
Author Organization [employer] Address [address] [place] [address] Care Team Providers Care Color Laboratory Technician Name Role Phone Cynthia Marshall NP Primary Care Provider [phone] Encounter Details Date Type Department Care Team (Late st Contact Info) Description 12/31/2023 Orders Only [facility] [address] [place] [address] Corby Jacobs MD [address] [place] [address] Elevated blood uric acid level (Primary Dx) Social History Tobacco Use Types Packs/Day Years [...] as of this encounter Visit Diagnoses Diagnosis Elevated blood uric acid level- Primary documented in this encounter Additional Health Concerns Assessment Noted Time PHQ-9 Depression Total Score: 0 01/11/20 23 9:39 AM EDT documented as of this encounter Care Teams Color Laboratory Technician Relationship Specialty Start Date End Date Cynthia Marshall NP [address] [place] [address] PCP - General Family Medicine 09/10/23 documented as of this encounter
--- OUTSIDE RECORDS SUMMARY | 2024-10-17 09:55 | XMS_ITS | Encounter Summary ---
Author Organization [employer] Address [address] [facility] [address] [facility] [address] [place] [address] Care Team Providers Care Brick Yard Hand Name Role Phone Cynthia Marshall NP Primary Care Provider [phone] Reason for Visit * Reason Comments Med Refill Encounter Details Date Type Department Care Team (Late st Contact Info) Description 05/16/2024 Refill [facility] [address] [place] [address] Oly Guerrero FNP Social History Tobacco Use Types Packs/Day Years [...] documented as of this encounter Care Teams Brick Yard Hand Relationship Specialty Start Date End Date Cynthia Marshall NP [address] [place] [address] PCP - General Family Medicine 09/10/23 documented as of this encounter
--- OUTSIDE RECORDS SUMMARY | 2024-10-17 09:55 | XMS_ITS | Encounter Summary ---
Author Organization [facility] Address [address] [place] [address] Phone Care Team Providers Care Wiper Blender Name Role Phone Arielle Godinez Primary Care Provider Unavailabl e Encounter Details Date Type Department Care Team (Late st Contact Info) Description 01/03/2024 Office Communication [facility] [address] [place] [address] Soy Meléndez MD [address] [facility] [address] [place] [phone] Social History Tobacco Use Types Packs/Day Years Used Date Smoking Tobacco: Never Assessed Alcohol Use Standard Drinks/Week Comments Not Currently 0 (1 standard drink = 0.6 oz pur e alcohol) Sex and Gender Information Value Date Recorded Sex Assigned at Not on file Legal Sex Male 2:17 PM EST Gender Identity Not on file Sexual Orientation Not on file documented as of this encounter Miscellaneous Notes * Telephone Encounter - Soy Meléndez MD - 01/03/2024 1:07 PM EDT This pT needs f/u in 2-3 wks--pls overbook if needed thx documented in this encounter Plan of Treatment Not on file documented as of this encounter Visit Diagnoses Not on filedocumented in this encounter Care Teams Wiper Blender Relationship Specialty Start Date End Date Arielle Godinez PCP - General Family Medicine 08/10/21 documented as of this encounter
[2024-10-17 10:13] VITALS: BP 134/68; PULSE 65; O2SAT 95; BMI 30.6
--- NOTE | 2024-10-17 10:13 | HO.NEPHOV_ITS ---
Vital Signs 10/17/24 10:13 Height 5 ft 8 in Weight 201 lb 6 oz BMI 30.6 BP 134/68 Blood Pressure Location Rt brachial Position Sitting Pulse 65 Pulse Source Pulse Oximeter Pulse Oximetry (%) 95 Oxygen Delivery Method Room Air Intake Visit Reasons: CKD-LVM Coat Operator Insulator Required: Yes Coat Operator Insulator Language: Route Deliverer Services: Coat Operator Insulator Offered & Declined [place] [place] Accompanied by: Self / Same As Patient Allergies No Known Allergies [No Known Allergies*] Allergy (Verified 10/17/24 10:13) HPI Comments Details: 73-year-old male with diabetes mellitus, hypertension, hyperlipidemia, chronic kidney disease, atrial fibrillation and on Eliquis for anticoagulation. He denies retinopathy or neuropathy but is known to have proteinuria. He has been aware of his CKD for some time. His last echocardiogram showed cardiomyopathy with EF 35-40%. He is on lisinopril and chlorthalidone. He has no shortness of breath at rest or with activity. He is no heart palpitations, PND, orthopnea or edema. No chest discomfort, dizziness, presyncope, syncope, falls. He is taking all meds as directed. He has been on Farxiga. His blood pressure has been at goal. He denies sinusitis, epistaxis, joint swelling, photosensitivity, hematuria, nephrolithiasis, pedal edema or orthostatic symptoms. Has no history of any malignancy. He claims to be compliant with his medications. His recent serum creatinine had been stable [facility] Medical History Hypertension Chronic atrial fibrillation CHF (congestive heart failure) CKD (chronic kidney disease) CKD (chronic kidney disease) Former smoker Depression Diabetes High cholesterol Surgical History History of aneurysm History of shoulder surgery Family History Father No problems noted. Mother Diabetes Hypertension Cancer Son No problems noted. Son No problems noted. Son No problems noted. Daughter No problems noted. Daughter No problems noted. Social History Household Members: Spouse Household Members Other:: Housing: Apartment Do you presently have visiting nurse or other home services: No Alcohol intake: never Patient Tobacco Use Status: Never used Tobacco service: Yes Current occupational status: disabled Review of Systems Const All systems reviewed & are unremarkable except as noted in HPI and below Physical Exam Vital Signs: Last Vital Signs Pulse 65 10/17/24 10:13 BP 134/68 10/17/24 10:13 Pulse Ox 95 10/17/24 10:13 Oxygen Delivery Method Room Air 10/17/24 10:13 BMI result Body Mass Index 30.6 Const General: comfortable and no acute distress Orientation/consciousness: patient oriented x3 HEENT Head: Yes normocephalic Mouth: Normal oral and palatal mucosa present Eyes EOM: EOMs intact bilaterally Neck Neck: Yes supple Resp Auscultation: clear to auscultation bilaterally Cardio Jugular venous distension: no JVD Rate: regular rate GI Palpation (GI): Soft to palpation Auscultation: normal bowel sounds Skin General skin exam: no rashes or lesions noted Neuro General: patient oriented x3 and moves all extremities Extrem General: Yes no pedal edema Results Reviewed Nephrology Results: Hgb 15.1 g/dl (14.0-18.0) 06/30/24 WBC 7.2 X10*3/uL (4.8-10.8) 06/30/24 Plt Count 169 X10*3/uL (160-400) 06/30/24 Sodium 141 mmol/L (135-145) 07/04/24 Potassium 3.4 mmol/L (3.3-5.1) 07/04/24 Chloride 104 mmol/L (96-108) 07/04/24 Carbon Dioxide 28 mmol/L (22-29) 07/04/24 BUN 42 mg/dL (9-16) H 07/04/24 Creatinine 1.96 mg/dL (0.5-1.4) H 07/04/24 Calcium 9.2 mg/dL (8.4-10.2) 07/04/24 PTH Intact 310.8 pg/mL (8.7-77.1) H 06/30/24 Assessment & Plan Assessment & Plan (1) Secondary hyperparathyroidism (of renal origin): Code(s): N25.81 - Secondary hyperparathyroidism of renal origin Category: Medical (2) Anemia in chronic kidney disease (CKD): Code(s): N18.9 - Chronic kidney disease, unspecified; D63.1 - Anemia in chronic kidney disease Category: Medical Qualifiers: Chronic kidney disease stage: stage 4 (severe) Qualified Code(s): N18.4 - Chronic kidney disease, stage 4 (severe); D63.1 - Anemia in chronic kidney disease (3) Hypertension: Code(s): I10 - Essential (primary) hypertension Category: Medical Qualifiers: Hypertension type: unspecified Qualified Code(s): I10 - Essential (primary) hypertension (4) CKD (chronic kidney disease) stage 4, GFR 15-29 ml/min: Code(s): N18.4 - Chronic kidney disease, stage 4 (severe) Category: Medical (5) Iron deficiency: Code(s): E61.1 - Iron deficiency Category: Medical Plan Ethan has 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 He is proteinuric. He is on RAQUEL-inhibitor. He has history of heart failure. He has a diabetic. He is on Farxiga and diuretics as well. His serum creatinine is currently stable. He is tolerating calcitriol. I started him on Ferrous sulphate. Answered all questions. Follow-up appointment given Orders: Orders Creatinine Today D63.1 - Anemia in chronic kidney disease, I10 - Essential (primary) hypertension, N18.4 - Chronic kidney disease, stage 4 (severe), N25.81 - Secondary hyperparathyroidism of renal origin Ferritin Today E61.1 - Iron deficiency Electrolytes 4 Months D63.1 - Anemia in chronic kidney disease, E61.1 - Iron deficiency, I10 - Essential (primary) hypertension, N18.4 - Chronic kidney disease, stage 4 (severe), N25.81 - Secondary hyperparathyroidism of renal origin Complete Blood Count Auto Diff 4 Months D63.1 - Anemia in chronic kidney disease, E61.1 - Iron deficiency, I10 - Essential (primary) hypertension, N18.4 - Chronic kidney disease, stage 4 (severe), N25.81 - Secondary hyperparathyroidism of renal origin Parathyroid Hormone Intact 4 Months D63.1 - Anemia in chronic kidney disease, E61.1 - Iron deficiency, I10 - Essential (primary) hypertension, N18.4 - Chronic kidney disease, stage 4 (severe), N25.81 - Secondary hyperparathyroidism of renal origin Blood Urea Nitrogen Today D63.1 - Anemia in chronic kidney disease, I10 - Essential (primary) hypertension, N18.4 - Chronic kidney disease, stage 4 (severe), N25.81 - Secondary hyperparathyroidism of renal origin Electrolytes Today D63.1 - Anemia in chronic kidney disease, I10 - Essential (primary) hypertension, N18.4 - Chronic kidney disease, stage 4 (severe), N25.81 - Secondary hyperparathyroidism of renal origin Calcium Today D63.1 - Anemia in chronic kidney disease, I10 - Essential (primary) hypertension, N18.4 - Chronic kidney disease, stage 4 (severe), N25.81 - Secondary hyperparathyroidism of renal origin Complete Blood Count Auto Diff Today E61.1 - Iron deficiency IRON PROFILE Today E61.1 - Iron deficiency Creatinine 4 Months D63.1 - Anemia in chronic kidney disease, E61.1 - Iron deficiency, I10 - Essential (primary) hypertension, N18.4 - Chronic kidney disease, stage 4 (severe), N25.81 - Secondary hyperparathyroidism of renal origin Blood Urea Nitrogen 4 Months D63.1 - Anemia in chronic kidney disease, E61.1 - Iron deficiency, I10 - Essential (primary) hypertension, N18.4 - Chronic kidney disease, stage 4 (severe), N25.81 - Secondary hyperparathyroidism of renal origin Calcium 4 Months D63.1 - Anemia in chronic kidney disease, E61.1 - Iron deficiency, I10 - Essential (primary) hypertension, N18.4 - Chronic kidney disease, stage 4 (severe), N25.81 - Secondary hyperparathyroidism of renal origin Medications: New calcitriol 0.25 mcg PO Q2D 14 caps 6RF ferrous sulfate 325 mg PO BID 60 tabs 4RF Coding Level of Care Code Est Pt Level 4 (75594) Diagnoses Secondary hyperparathyroidism (of renal origin) N25.81 Anemia in stage 4 chronic kidney disease N18.4; D63.1 Chronic kidney disease stage: stage 4 (severe) Essential hypertension I10 Hypertension type: unspecified CKD (chronic kidney disease) stage 4, GFR 15-29 ml/min N18.4 Iron deficiency E61.1
== END 2024-10-17 10:45 | disposition home or self-care (01) ==
PROVIDERS: PCP Student in an Organized Health Care Education/Training Program; Visit Provider Internal Medicine Nephrology
DX: N25.81 Secondary hyperparathyroidism of renal origin (principal); I12.9 Hypertensive chronic kidney disease with stage 1 through stage 4 chronic kidney disease, or unspecified chronic kidney disease; N18.4 Chronic kidney disease, stage 4 (severe); D63.1 Anemia in chronic kidney disease; E61.1 Iron deficiency
CPT/HCPCS: 99214

== ENCOUNTER 2024-10-17 10:51 | Outpatient (REF) | payer OTHER, SELFPAY ==
--- OUTSIDE RECORDS SUMMARY | 2024-10-17 12:24 | XMS_ITS | Encounter Summary ---
Author Organization [employer] Address [address] [facility] [facility] [address] [place] [address] Care Team Providers Care Collaborative Teacher Name Role Phone Cynthia Marshall NP Primary Care Provider [phone] Encounter Details Date Type Department Care Team ([facility] st Contact Info) Description 09/26/[address] [facility] [address] [place], [place] [phone] Cynthia Marshall NP 230 [place] [address] Stage 3b chronic kidney disease (CMS/HCC) Social [...] documented as of this encounter Care Teams Collaborative Teacher Relationship Specialty Start Date End Date Cynthia Marshall NP [address] [place] [address] PCP - General Family Medicine 09/10/23 documented as of this encounter
--- OUTSIDE RECORDS SUMMARY | 2024-10-17 12:24 | XMS_ITS | Encounter Summary ---
Author Organization [employer] [facility] Address [address] [place] [address] 7t [place] [address] Care Team Providers Care Logging Supervisor Name Role Phone Virginia Perez Primary Care Provider [phone] Blanca Crowley MD Primary Care Pro vider Cynthia Marshall NP Primary Care Provider [phone] Encounter Details Date Type Department Care Team (Latest Contact Info) Description 03/31/2021 Abstract [facility] Dental, Provider, DDS Social History Tobacco [...] on filedocumented in this encounter Care Teams Logging Supervisor Relationship Specialty Start Date End Date Virginia Perez FNP PCP - General Family Medicine 04/28/22 03/28/23 Blanca Crowley MD 230 [place] [address] PCP - General Internal Medicine 03/29/23 09/09/23 Cynthia Marshall NP 230 [place] [address] PCP - General Family Medicine 09/10/23 documented as of this encounter
--- OUTSIDE RECORDS SUMMARY | 2024-10-17 12:24 | XMS_ITS | Encounter Summary ---
Author Organization [facility] Address [address] [place] [address] Phone Care Team Providers Care Inspector Salvage Name Role Phone Arielle Godinez Primary Care Provider Unavailabl e Encounter Details Date Type Department Care Team (Late st Contact Info) Description 01/03/2024 Office Communication [facility] [address] [place] [address] Soy Meléndez MD [address] [facility] [address] [place] [phone] Social History Tobacco Use Types Packs/Day Years [...] on filedocumented in this encounter Care Teams Inspector Salvage Relationship Specialty Start Date End Date Arielle Godinez PCP - General Family Medicine 08/10/21 documented as of this encounter
--- OUTSIDE RECORDS SUMMARY | 2024-10-17 12:25 | XMS_ITS | Encounter Summary ---
Author Organization [email or web address] Address [address] [facility] 7t [place] [address] Care Team Providers Care Social Media Director Name Role Phone Cynthia Marshall NP Primary Care Provider [phone] Reason for Visit * Reason Comments Med Refill Encounter Details Date Type Department Care Team ([facility] st Contact Info) Description 11/04/2023 Refill [facility] [address] [place], [place] [phone] Blanca Crowley MD 230 [place] [address] Social History Tobacco Use Types Packs/Day Years [...] documented as of this encounter Care Teams Social Media Director Relationship Specialty Start Date End Date Cynthia Marshall NP [address] [place] [address] PCP - General Family Medicine 09/10/23 documented as of this encounter
--- OUTSIDE RECORDS SUMMARY | 2024-10-17 12:25 | XMS_ITS | Encounter Summary ---
Author Organization [email or web address] Address [address] [facility] [address] [facility] [address] 7[address] [place] [address] Care Team Providers Care Manager Float Name Role Phone Cynthia Marshall NP Primary Care Provider [phone] Encounter Details Date Type Department Care Team ([facility] st Contact Info) Description 04/11/2024 Orders Only [facility] 230 [place], [place] [phone] Cynthia Marshall NP 230 [place] [address] Stage 3b chronic kidney disease (CMS/HCC) Social [...] EST) Sodium 141 135 - 145 mmol/L [facility] Potassium 3.4 3.3 - 5.1 mmol/L [facility] Chloride 104 96 - 108 mmol/L [facility] Carbon Dioxide 28 22 - 29 mmol/L [facility] Anion Gap 12 12 - 20 [facility] Urea Nitrogen (BUN) 42(H) 9 - 16 mg/dL [facility] Creatinine, Serum 1.96(H) 0.5 - 1.4 mg/dL [facility] Estimated Glomerular Filt Rate 34 [facility] Comment:Chronic Kidney Disea se: Estimated GFR < 60 mL/min/1.47u8Bctmtg Kidney Disease: Estimated GFR < 15 mL/min/1.73m2 Glucose 110 60 - 115 mg/dL [facility] Calcium 9.2 8.4 - 10.2 mg/dL [facility] Blood Venous blood specimen / Unknown 07/04/2024 12:13 PM EST 07/04/2024 12:13 PM EST us Cynthia Marshall [facility] BLOOD ORDERABLES Final Resul t [facility] [address] [place] [address] [phone] documented in this encounter Visit Diagnoses Diagnosis Stage 3b chronic kidney disease (CMS/HCC) documented in this encounter Additional Health Concerns Assessment Noted Time PHQ-9 Depression Total Score: 0 01/21/20 24 11:17 AM EDT documented as of this encounter Care Teams Manager Float Relationship Specialty Start Date End Date Cynthia Marshall NP [address] [place] [address] PCP - General Family Medicine 09/10/23 documented as of this encounter
--- OUTSIDE RECORDS SUMMARY | 2024-10-17 12:25 | XMS_ITS | Encounter Summary ---
Author Organization [employer] [facility] Address [address] [facility] 7t [place] [address] Care Team Providers Care Data Warehouse Specialist Name Role Phone Virginia Perez Primary Care Provider [phone] Blanca Crowley MD Primary Care Pro vider Cynthia Marshall NP Primary Care Provider [phone] Encounter Details Date Type Department Care Team (Late st Contact Info) Description 01/01/2023 Abstract [facility] [address] [place] [address] Virginia Perez FNP [address] [place] [address] [place] [address] Social History Tobacco Use Types Packs/Day Years [...] on filedocumented in this encounter Care Teams Data Warehouse Specialist Relationship Specialty Start Date End Date Virginia Perez FNP PCP - General Family Medicine 04/28/22 03/28/23 Blanca Crowley MD 230 [place] [address] PCP - General Internal Medicine 03/29/23 09/09/23 Cynthia Marshall NP [address] [place] [address] PCP - General Family Medicine 09/10/23 documented as of this encounter
--- OUTSIDE RECORDS SUMMARY | 2024-10-17 12:25 | XMS_ITS | Clinical Summary ---
Author Organization [employer] Address [address] [facility] 7t [place] [address] Care Team Providers Care Policy And Planning Manager Name Role Phone Cynthia Marshall NP Primary Care Provider [phone] Allergies No known active allergies Medications dapagliflozin [...] 4 Active Blood Glucose Monitoring Suppl (FreeStyle Diggs Lite) w/Device kitIndications:Ty pe 2 diabetes mellitus with other specified complication, without long-term current use of insulin ([facility]) Use to test blood sugar bid dx dm 1 kit 4 Active glucose blood (VericanTouch Ultra) test stripIndications: Type 2 diabetes mellitus with other specified complication, without long-term current use of insulin (CMS/HCC) test blood sugar as needed, in the morning before breakfast 100 each 11 4 Active Lancets 33G miscIndications:T ype 2 diabetes mellitus with other specified complication, without long-term current use of insulin ([facility]) 100 each 2 times daily. 60 each [...] heart failure), NYHA class I, chronic, combined ([facility]) Take 1 tablet daily . 30 tablet 1 4 Active Eliquis 2.5 MG tabletIndications :Paroxysmal atrial fibrillation ([facility]) TAKE 1 TABLET BY MOUTH TWICE DAILY [...] Plan (10/08/2023 5:16 PM EST): Lesion right yarsanism suspicious for AK, referral to derm Stage [...] Department Care Team Description 09/26/2024 Orders Only [facility] 230 [place] [address] Cynthia Marshall NP Stage 3b chronic kidney [...] complication, without long-term current use of insulin ([facility]) LIPID PANEL, STANDARD Routine 07/11/2021 10:28 AM EST from Last 3 Months or Most Recently Relevant to Health Maintenance Results * NM Kidney Flow/Function w/ Pharmacological Intervention (07/31/2024 10:58 AM EST) Anatomical Region Laterality Modality Body Nuclear Medicine 07/31/2024 10:5 8 AM EST Narrative 08/08/2024 10:06 AM EST ? [facility] ?[address] ?[place] [address] ?Nuclear Medicine Report ? Signed ? Patient: Cristina,Ethan ?MR#: [id number] ?? 0 ? : 1950 ?Acct:[id number] ? Age/Sex: 73 / M ?ADM Date: 07/31/24 ? Loc: HO.NUCMED ? Attending Dr: Kong Duarte MD ? Ordering Physician: Kong Duarte MD ?? Date of Service: 07/31/24 ?? Procedure(s): NM renal flow w pharm int ?? Accession Number(s): [id number] ? cc: Kong Duarte MD; Cynthia Marshall HOSPITAL ADMISSIONS OFFICER ? EXAMINATION: ?? RENAL DYNAMIC IMAGING STUDY [...] DD/ 1058 ? TD/TT: 07/31/24 1345 ? Chief Operating Engineer: ? Procedure Note Tamara, Carmine - 08/08/2024 [place] [address] Nuclear Medicine Report Signed Patient: Tobin Cristina#: [id number] 0 : 3Acct:[id number] Age/Sex: 73 / MADM Date: 07/31/24 [facility] Att[facility] Dr: Kong Duarte MD Ordering Physician: Kong Duarte MD Date of Service: 07/31/24 Procedure(s): NM renal flow w pharm int Accession Number(s): [id number] cc: Kong Duarte MD; Cynthia Marshall NP [...] 08/08/24 1003 DD/ 1058 TD/TT: 07/31/24 1345 Chief Operating Engineer: [facility] External Provider IMG NM PROCEDURES Final Result * POCT HGB A1C (04/18/2024 11:36 AM EDT) Pathologist [facility] Hemoglobin A1C 6.0 4.0 - 6.0 % QC Media Lot # [id number] Lot# Expiration Date [id number] Blood 04/18/2024 11:3 6 AM EDT Cynthia Marshall NP POINT OF CARE TEST ENTER/EDIT OR DERABLES Final Result * (ABNORMAL) LIPID PANEL, STANDARD (07/11/2021 10:28 AM EST) Pathologist [facility] Chol/HDLC Ratio 5.7(H) <5.0 (calc) [facility] [...] ?? Terry PRESCOTT et al. SHARITA. 2013;310(19): 0907-0393 ?? ([email or web address]) Non-HDL Cholesterol 147(H) <130 mg/dL (calc) [facility] Comment: For patients with diabetes plus 1 major ASCVD risk ?? factor, treating to a non-HDL-C goal of <100 mg/dL ?? (LDL-C of <70 mg/dL) is considered a therapeutic ?? option. Triglycerides 80 <150 mg/dL [facility] 07/11/2021 10:2 8 AM EST us Oly Guerrero POST CLOSING SPECIALIST LAB BLOOD ORDERABLES Final Res ult [facility] [address] from Last 3 Months or Most Recently Relevant to Health Maintenance Insurance [facility] DUAL COMPLETE [facility] STANDARD [address] [place] [id number] Care Teams Policy And Planning Manager Relationship Specialty Start Date End Date Cynthia Marshall NP [address] [place] [address] PCP - General Family Medicine 09/10/23
--- OUTSIDE RECORDS SUMMARY | 2024-10-17 12:25 | XMS_ITS | Clinical Summary ---
Author Organization [facility] Address [address] [place] [address] Care Team Providers Care Senior Tableau Developer Name Role Phone Unavailable Primary Care Provider Unavailabl e Surgical History Surgery Date Site/Laterality Comments SHOULDER SURGERY 06/18/07 PROCEDURE: HISTORICAL SHOULDER SURGERY; COMMENT: Rotator cuff- Dr. Adis King APPENDECTOMY PROCEDURE: HISTORICAL APPENDECTOMY COLONOSCOPY 12/28/2011 PROCEDURE: HISTORICAL COLONOSCOPY; COMMENT: normal UPPER GASTROINTESTINAL ENDOSCOPY 03/14/2016 PROCEDURE: MD UPPER GI ENDOSCOPY PERFORMED; COMMENT: Visually normal; [...]
--- OUTSIDE RECORDS SUMMARY | 2024-10-17 12:25 | XMS_ITS | Encounter Summary ---
Author Organization [employer] Address [address] [facility] [address] [facility] [address] 7[address] [place] [address] Care Team Providers Care Educational Therapist Name Role Phone Cynthia Marshall NP Primary Care Provider [phone] Encounter Details Date Type Department Care Team (Late st Contact Info) Description 12/31/2023 Orders Only [facility] 230 [place] [address] Corby Jacobs MD 230 [place] [address] Elevated blood uric acid level (Primary Dx) [...] documented as of this encounter Care Teams Educational Therapist Relationship Specialty Start Date End Date Cynthia Marshall NP 230 [place] [address] PCP - General Family Medicine 09/10/23 documented as of this encounter
--- OUTSIDE RECORDS SUMMARY | 2024-10-17 12:25 | XMS_ITS | Encounter Summary ---
Author Organization [employer] Address [address] [facility] [address] 7t [place] [address] Care Team Providers Care Development Team Lead Name Role Phone Cynthia Marshall NP Primary Care Provider [phone] Reason for Visit * Reason Comments Med Refill Encounter Details Date Type Department Care Team (Late st Contact Info) Description 05/16/2024 Refill [facility] 230 [place] [address] Oly Guerrero FNP Social History Tobacco Use [...] documented as of this encounter Care Teams Development Team Lead Relationship Specialty Start Date End Date Cynthia Marshall NP 230 [place] [address] PCP - General Family Medicine 09/10/23 documented as of this encounter
--- OUTSIDE RECORDS SUMMARY | 2024-10-17 12:25 | XMS_ITS | Clinical Summary ---
Author Organization [facility] Facility Address [address] [place] [address] Care Team Providers Care Gas Well Drilling Manager Name Role Phone Arielle Godinez Primary Care Provider Unavailabl e Allergies No known active allergies Medications Lancets (OneTouch Delica Plus [id number]) [facility] TEST BLOOD SUGAR NEEDED, IN THE MORNING [...] (01/04/2024): Last Assessment & Plan: Lesion right sabianism suspicious for AK, referral to derm Chronic [...] age to complete this topic Insurance [place]ICAID [place] ([id number]) [place]ICAID [place] [facility] DUAL COMPLETE ([id number]) Care Teams Gas Well Drilling Manager Relationship Specialty Start Date End Date Arielle Godinez PCP - General Family Medicine 08/10/21
--- OUTSIDE RECORDS SUMMARY | 2024-10-17 12:25 | XMS_ITS | Encounter Summary ---
Author Organization [employer] Address [address] [place] [address] Care Team Providers Care Slasher Machine Operator Name Role Phone Cynthia Marshall NP Primary Care Provider [phone] Encounter Details Date Type Department Care Team ([facility] st Contact Info) Description 05/16/2024 Telephone [facility] MEDICINE [address] [place], [place] [phone] Cynthia Marshall NP [address] [place] [address] Social History Tobacco Use Types Packs/Day Years [...] 05/16/2024 3:02 PM EDT Safety and Incident Journalism Internship Denae Carey [phone], please contact blurb writer when patient comesinto the [facility]. documented in this encounter Plan of Treatment Not on file documented as of this encounter Visit Diagnoses Not on filedocumented in this encounter Additional Health Concerns Assessment Noted Time PHQ-9 Depression Total Score: 0 01/21/20 24 11:17 AM EDT documented as of this encounter Care Teams Slasher Machine Operator Relationship Specialty Start Date End Date Cynthia Marshall NP [address] [place] [address] PCP - General Family Medicine 09/10/23 documented as of this encounter
--- OUTSIDE RECORDS SUMMARY | 2024-10-17 12:25 | XMS_ITS | Encounter Summary ---
Author Organization [employer] Address [address] 7[address] [place] [address] Care Team Providers Care Commercial Loan Reviewer Name Role Phone Cynthia Marshall NP Primary Care Provider Encounter Details Date Type Department Care Team ([facility] st Contact Info) Description 07/04/2024 Orders Only [facility] MEDICINE [address] [place], [place] [phone] Cynthia Marshall NP [address] [place] [address] Stage 3b chronic kidney disease (CMS/HCC) Social [...] EST Narrative 08/08/2024 10:06 AM EST ? [facility] ?[address] ?[place] [address] ?Nuclear Medicine Report ? Signed ? Patient: Cristina,Ethan ?MR#: [id number] ?? 0 ? : 1950 ?Acct:[id number] ? Age/Sex: 73 / M ?ADM Date: 07/31/24 ? Loc: HO.NUCMED ? Attending Dr: Kong Duarte MD ? Ordering Physician: Kong Duarte MD ?? Date of Service: 07/31/24 ?? Procedure(s): NM renal flow w pharm int ?? Accession Number(s): [id number] ? cc: Kong Duarte MD; Cynthia Marshall DUST HANDLER ? EXAMINATION: ?? RENAL DYNAMIC IMAGING STUDY [...] DD/ 1058 ? TD/TT: 07/31/24 1345 ? [employer] Tech: ? Procedure Note Tamara, Image - 08/08/[address] [address] Nuclear Medicine Report Signed Patient: Tobin Cristina#: [id number] 0 : 3Acct:[id number] Age/Sex: 73 / MADM Date: 07/31/24 Loc: SUSAN Attending Dr: Kong Duarte MD Ordering Physician: Kong Duarte MD Date of Service: 07/31/24 Procedure(s): NM renal flow w pharm int Accession Number(s): [id number] cc: Kong Duarte MD; Cynthia Marshall NP [...] by: Janice Pate MD 08/08/2024 10:03 AM [facility] Dictated By: Janice Pate Signed By: <Electronically signed by Janice Pate in OV> 08/08/24 1003 DD/ 1058 TD/TT: 07/31/24 1345 [employer] Tech: [facility] External Provider IMG NM PROCEDURES Final Result documented in this encounter Visit Diagnoses Diagnosis Stage 3b chronic kidney disease (CMS/HCC) documented in this encounter Additional Health Concerns Assessment Noted Time PHQ-9 Depression Total Score: 0 06/10/20 24 11:17 AM EDT documented as of this encounter Care Teams Commercial Loan Reviewer Relationship Specialty Start Date End Date Cynthia Marshall NP [address] [place] [address] PCP - General Family Medicine 09/10/23 documented as of this encounter
[2024-10-17 12:59] LABS: MANUAL DIFF FLAG NO
[2024-10-17 13:02] LABS: Basophils Percent Auto 0.3 % (0-2); Eosinophils Absolute Auto 0.1 X10*3/uL (0.0-0.4); Eosinophils Percent Auto 0.7 % (0-4); Hematocrit 48.7 % (42.0-52.0); Hemoglobin 16.4 g/dl (14.0-18.0); Imm Gran Abs Auto 0.02 X10*3/uL (0.00-0.03); Imm Gran Pct Auto 0.2 % (0.0-0.4); Lymphocytes Absolute Auto 1.7 X10*3/uL (1.2-4.9); Lymphocytes Percent Auto 16.5 % (20-40); Mean Corpuscular HGB Conc 33.7 g/dl (31.0-36.0); Mean Corpuscular Hemoglobin 28.4 pg (27.0-33.0); Mean Corpuscular Volume 84.4 fL (80.0-98.0); Mean Platelet Volume 9.4 fL (9.4-12.4); Monocytes Absolute Auto 0.9 X10*3/uL (0.1-1.2); Monocytes Percent Auto 8.7 % (2-11); Neutrophils Absolute Auto 7.4 x10*3/uL (2.0-8.3); Neutrophils Percent Auto 73.6 % (45-73); Platelet Count 190 X10*3/uL (160-400); Red Blood Count 5.77 X10*6/uL (4.60-5.80); Red Cell Distribution Width 14.1 % (11.0-16.0); White Blood Count 10.1 X10*3/uL (4.8-10.8)
[2024-10-17 13:17] LABS: Anion Gap 14 (12-20); Blood Urea Nitrogen 43 mg/dL (9-16); Calcium 10.1 mg/dL (8.4-10.2); Carbon Dioxide 28 mmol/L (22-29); Chloride 103 mmol/L (96-108); Estimated Glomerular Filt Rate 30; Iron 69 mcg/dL (45-160); Percent Iron Saturation 20 % (15-50); Potassium 3.6 mmol/L (3.3-5.1); Sodium 141 mmol/L (135-145); Total Iron Binding Capacity 337 mcg/dL (228-428); Unsaturated Iron Binding 268 ug/dL
[2024-10-17 13:30] LABS: Ferritin 28 ng/mL (20-250)
[2024-10-17 14:40] LABS: Parathyroid Hormone Intact 420.8 pg/mL (8.7-77.1)
== END 2024-10-17 10:52 | disposition home or self-care (01) ==
LOC: HO.10HDL 10:51
PROVIDERS: Visit Provider Internal Medicine Nephrology
DX: Z13.89 Encounter for screening for other disorder (principal)
CPT/HCPCS: 36415; 80051; 82310; 82565; 82728; 83540; 83970; 84520; 85025

== ENCOUNTER 2024-10-20 11:09 | Inpatient (IN) | payer OTHER, MEDICAID, SELFPAY ==
--- NOTE | ~2024-10-20 | US_ITS ---
CLINICAL HISTORY: right pain, GB, CBD US abdomen limited Comparison: CT/SR - CT ABDOMEN PELVIS WO IV CON - 10/20/24 17:25 EDT Findings: The gallbladder is distended. Echogenic focus with acoustic shadowing in the region of the gallbladder neck measures 2 cm. Gallbladder sludge. Gallbladder wall measures 4 mm. Common bile duct measures 4 mm. IMPRESSION: 1. Cholelithiasis and sludge in the gallbladder with mild gallbladder wall thickening, correlate with acute cholecystitis. 2. Common bile duct is not dilated. This document has been electronically signed by: Greta Hand MD on 10/20/2024 20:05:41
--- NOTE | ~2024-10-20 | CT_ITS ---
CLINICAL HISTORY: sbo, PO contrast only CT abdomen and pelvis without contrast Comparison: None Findings: No consolidation or effusion. Heart is borderline enlarged. An approximately 1.8 cm stone is demonstrated in the gallbladder in the region of the neck with inflammatory changes adjacent to the gallbladder. Unenhanced liver and spleen demonstrate no focal abnormality. No biliary ductal dilatation. Unenhanced pancreas within normal limits. Adrenal glands within normal limits. No renal or ureteral stones with no hydronephrosis hydroureter. No bowel obstruction, pneumoperitoneum, or pneumatosis. Appendix not identified with no pericecal inflammatory changes. No free fluid. Urinary bladder within normal limits. Prostate calcifications. Atherosclerotic vascular disease. No aneurysm of the abdominal aorta. No acute osseous process. Degenerative changes of lumbar spine and facet arthropathy. Mild degenerative changes bilateral hips IMPRESSION: 1. Findings suggestive of acute cholecystitis. If clinically indicated follow-up right upper quadrant ultrasound could be obtained. 2. Otherwise no acute findings. This document has been electronically signed by: Greta Hand MD on 10/20/2024 18:23:06
--- NOTE | ~2024-10-20 | XR_ITS ---
Examination: Skull, cervical spine and chest x-ray. CLINICAL INDICATION: Pre-MRI screening. COMPARISON: Chest x-ray 12/19/2022. 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 The age of intravascular surgery for aneurysmal coiling should be further evaluated. Rest of visualized bones are unremarkable. The paranasal sinuses are clear. The calvarium is unremarkable. Cervical spine: 2 views cervical spine reveals cervical lordosis. The vertebral heights, alignment and disc heights are normal. No visible acute fracture, dislocation or subluxation seen. There is mild ventral spondylosis C3-4, C4-5, C5-6 and disc levels. No radiopaque metallic foreign body seen. Chest x-ray: The lungs are expanded and clear acute process. The heart size is borderline normal. Pulmonary vascularity is normal. No radiopaque metallic foreign bodies seen. No gross bony abnormality. XR/XR pre mri screening IMPRESSION: Endovascular coils seen in the suprasellar region of the skull. Insertion of coils which year is not known. Unremarkable C-spine except for mild DJD. Mild cardiomegaly. Lungs are clear. No radiopaque metallic foreign bodies in the chest or C-spine. Electronically signed by: Cedric Han MD 10/21/2024 11:45 AM EDT
[2024-10-20 11:14] VITALS: BP 158/78; PULSE 70; RESP 19; TEMP 36.6; O2SAT 98; BMI 30.1
--- NOTE | 2024-10-20 11:15 | ED_ITS ---
HPI - Abdominal Pain General Chief Complaint: Abdominal Pain Stated Complaint: upper abd pain sent from urgent care Time Seen by Provider: 10/20/24 16:06 Source: patient Limitations: language barrier History of Present Illness ED Provider: Christine Roblero PA-C HPI narrative: 73-year-old male with a history of hyperlipidemia, hypertension, AFib on apixaban, chronic kidney disease, anemia of chronic disease hyperparathyroidism, arthritis, presents with abdominal pain since this morning. Pain within right mid abomen is nonradiating described as sharp it is constant. Last bowel movement was yesterday. Denies abdominal distention or inability to pass flatus from below, no nausea or vomiting. Denies diarrhea or fever. Denies dysuria, hematuria or history of kidney stones. Related Data Home Medications ?Medication ?Instructions ?Recorded ?Confirmed blood-glucose meter #1 ea 05/14/20 01/14/24 lancets #100 ea 05/14/20 01/14/24 atorvastatin 40 mg tablet 40 mg PO DAILY 12/19/22 10/20/24 dapagliflozin propanediol 10 mg 10 mg PO DAILY 12/19/22 10/20/24 tablet (Farxiga) apixaban 2.5 mg tablet (Eliquis) 2.5 mg PO BID 10/20/24 10/20/24 lisinopril 40 mg tablet 40 mg PO DAILY 10/20/24 10/20/24 Previous Rx's ?Medication ?Instructions ?Recorded blood sugar diagnostic #50 ea 01/24/21 calcitriol 0.25 mcg capsule 0.25 mcg PO Q2D #14 caps 10/17/24 ferrous sulfate 325 mg (65 mg 325 mg PO BID #60 tabs 10/17/24 iron) tablet Allergies Allergy/AdvReac Type Severity Reaction Status Date / Time No Known Allergies Allergy Verified 10/20/24 11:17 [No Known Allergies*] Review of Systems Review of Systems Yes all other systems are reviewed and are negative Constitutional: Denies fatigue and Denies fever(s) Cardiovascular: Denies chest pain and Denies dyspnea Respiratory: Denies cough and Denies dyspnea Gastrointestinal: Reports abdominal pain, Denies constipation, Denies diarrhea, Denies nausea and Denies vomiting Genitourinary: Denies hematuria, Denies dysuria and Denies flank pain Endocrine: Denies fatigue PMFSH Past Medical History Attestation statement: The following information was validated with the patient. Medical History (Updated 10/22/24 @ 13:55 by Julieta Bo MD) Stroke Chronic atrial fibrillation CHF (congestive heart failure) CKD (chronic kidney disease) Former smoker Depression Diabetes High cholesterol Hypertension Surgical History (Updated 10/24/24 @ 07:37 by Perfecto Smith MD) History of aneurysm History of shoulder surgery Family History Family History Father No problems noted. Mother Diabetes Hypertension Cancer Son No problems noted. Son No problems noted. Son No problems noted. Daughter No problems noted. Daughter No problems noted. Social History Social History Household Members: None Household Members Other:: Housing: Apartment Do you presently have visiting nurse or other home services: No Alcohol intake: never Patient Tobacco Use Status: Never used Tobacco service: No Current occupational status: disabled Physical Exam ED Vital Signs: Vital Signs - 24 hr 10/20/24 11:14 10/20/24 17:49 Temperature 98 F 97.6 F Pulse Rate 70 67 Respiratory Rate 19 18 Blood Pressure 158/78 H 166/79 H Pulse Oximetry 98 96 Oxygen Delivery Method Room Air Room Air BMI result Body Mass Index 30.1 Const Other: Alert Orientation/consciousness: patient oriented x3 Resp Effort & Inspection: normal respiratory effort Cardio Other: Normal peripheral perfusion GI Other: Abdomen is soft, appears distended, mild to moderate tenderness to palpation within right lower abdomen, no guarding Skin Other: Warm dry no rash Neuro General: patient oriented x3, gait normal, no focal motor deficits and CN's II- XI intact bilaterally Psych Other: Cooperative Course Course Course Narrative: This is a Rapid Medical Examination (RME) performed by Imelda Baum PA-C in triage. Full HPI, ROS, assessment and treatment plan per primary provider in the Main ED. 73 yo male hx of CKD (not on dialysis), CHF, afib, HTN, DM, depression here for eval of RLQ pain which began this morning. no radiation. no urinary sx. no N/V/D. surgical hx includes appendectomy. +ttp RLQ with guarding. no rebound. no cvat. Plan: labs, UA, +/- imaging Reevaluation(s) Reevaluation #1: Concern for cholecystitis on CT scan obtaining a ultrasound, we will be giving morphine Time: 18:40 Consultations Consultation #1: paging Dr. Smith, you recommends medical admission, he will consult in the morning and follow, is requesting GI to get on board as well, I am suspecting due to the patient's comorbidities, we will make the patient NPO, an attempt to admit to the hospital service. Time: 20:11 Medical Decision Making Medical Decision Making MDM Narrative: 73-year-old male with a history of hyperlipidemia, hypertension, AFib on apixaban, chronic kidney disease, anemia of chronic disease hyperparathyroidism, arthritis, presents with abdominal pain since this morning. Pain within right mid abdomen, is nonradiating described as sharp it is constant. Last bowel movement was yesterday. Denies abdominal distention or inability to pass flatus from below, no nausea or vomiting. Denies diarrhea or fever. Denies dysuria, hematuria or history of kidney stones. Problem: AFib, chronic kidney disease History: Per patient I have considered the following differential diagnoses: Constipation, bowel obstruction, renal colic, appendicitis Plan: Given right lower symptoms, considered appendicitis, however the patient is status post appendectomy. Patient's last bowel movement was yesterday, perhaps he is simply constipated, objectively his abdomen appears distended. We will be obtaining a CT scan to rule out potential bowel obstruction, the patient was overall well in appearance without nausea vomiting, he is likely just constipated. Thought about renal colic, however he has no related symptoms, urinalysis already obtained, there was no hematuria there was no evidence of infection. I have independently reviewed the following tests: Labs: No leukocytosis, not anemic, no electrolyte abnormality, creatinine at baseline, urine not infected trace hematuria CT abdomen pelvis:Findings: No consolidation or effusion. Heart is borderline enlarged. An approximately 1.8 cm stone is demonstrated in the gallbladder in the region of the neck with inflammatory changes adjacent to the gallbladder. Unenhanced liver and spleen demonstrate no focal abnormality. No biliary ductal dilatation. Unenhanced pancreas within normal limits. Adrenal glands within normal limits. No renal or ureteral stones with no hydronephrosis hydroureter. No bowel obstruction, pneumoperitoneum, or pneumatosis. Appendix not identified with no pericecal inflammatory changes. No free fluid. Urinary bladder within normal limits. Prostate calcifications. Atherosclerotic vascular disease. No aneurysm of the abdominal aorta. No acute osseous process. Degenerative changes of lumbar spine and facet arthropathy. Mild degenerative changes bilateral hips IMPRESSION: 1. Findings suggestive of acute cholecystitis. If clinically indicated follow-up right upper quadrant ultrasound could be obtained. 2. Otherwise no acute findings. RUQ US: Findings: The gallbladder is distended. Echogenic focus with acoustic shadowing in the region of the gallbladder neck measures 2 cm. Gallbladder sludge. Gallbladder wall measures 4 mm. Common bile duct measures 4 mm. IMPRESSION: 1. Cholelithiasis and sludge in the gallbladder with mild gallbladder wall thickening, correlate with acute cholecystitis. 2. Common bile duct is not dilated. This document has been electronically signed by: Greta Hand MD on 10/20/2024 20:05:41 Lab Data 10/23/24 05:17 10/24/24 05:54 Labs: Lab Results 10/20/24 10/20/24 Range/Units 11:26 11:30 WBC 10.2 (4.8-10.8) X10*3/uL RBC 5.82 H (4.60-5.80) X10*6/uL Hgb 16.8 (14.0-18.0) g/dl Hct 49.3 (42.0-52.0) % MCV 84.7 (80.0-98.0) fL MCH 28.9 (27.0-33.0) pg MCHC 34.1 (31.0-36.0) g/dl RDW 14.3 (11.0-16.0) % Plt Count 191 (160-400) X10*3/uL MPV 8.9 L (9.4-12.4) fL Immature Gran % (Auto) 0.4 (0.0-0.4) % Neut % (Auto) 78.7 H (45-73) % Lymph % (Auto) 11.5 L (20-40) % [place] % (Auto) 8.8 (2-11) % Eos % (Auto) 0.3 (0-4) % Baso % (Auto) 0.3 (0-2) % Lymph # (Auto) 1.2 (1.2-4.9) X10*3/uL [place] # (Auto) 0.9 (0.1-1.2) X10*3/uL Eos # (Auto) 0.0 (0.0-0.4) X10*3/uL Baso # (Auto) 0.0 (0.0-0.2) X10*3/uL Abs Immat Gran (auto) 0.04 H (0.00-0.03) X10*3/uL Absolute Neuts (auto) 8.0 (2.0-8.3) x10*3/uL Absolute Nucleated RBC 0.000 (0.0-0.012) X10*3/uL Nucleated RBC % (auto) 0.0 (0.0-0.2) /100WBC ESR 45 H (0-15) MM/HR Sodium 141 (135-145) mmol/L Potassium 3.3 (3.3-5.1) mmol/L Chloride 104 (96-108) mmol/L Carbon Dioxide 27 (22-29) mmol/L Anion Gap 13 (12-20) BUN 50 H (9-16) mg/dL Creatinine 2.38 H (0.5-1.4) mg/dL Estim Creat Clear Calc 30.9 Estimated GFR 27 Random Glucose 125 H (60-115) mg/dL Estimat Average Glucose 123 mg/dL Hemoglobin A1c % 5.9 (<6.0) % Calcium 9.5 (8.4-10.2) mg/dL Magnesium 2.0 (1.6-2.6) mg/dL Total Bilirubin 1.7 H (0.0-1.0) mg/dL Direct Bilirubin 0.5 (0.0-0.5) mg/dL AST 22 (5-37) U/L ALT 11 (0-40) U/L Alkaline Phosphatase 126 H (39-117) U/L C-Reactive Protein 13.33 H (< or = 0.50) mg/dL Total Protein 8.3 H (6.5-8.0) g/dL Albumin 3.8 (3.5-5.0) g/dL Lipase 16 (8-78) U/L Urine Color Yellow Urine Appearance Clear Urine pH 5.5 (5.0-9.0) Ur Specific [place] 1.020 (1.005-1.025) Urine Protein 300 (3+) H (Neg-Trace) mg/dL Urine Glucose (UA) >=1000 H (Negative) mg/dL Urine Ketones Negative (Negative) mg/dL Urine Blood Trace H (Negative) Urine Nitrite Negative (Negative) Ur Leukocyte Esterase Negative (Negative) Urine RBC 0-2 (0-2) /HPF Urine WBC 0-5 (0-5) /HPF Ur Squamous Epith Cells 0-2 (0-2) /HPF Urine Bacteria None Seen (None Seen) Hyaline Casts 3-5 (0-2) /LPF Granular Casts Present Medications Administered Generic Name Dose Route Start Last Admin Trade Name Freq PRN Reason Stop Dose Admin Amlodipine Besylate 5 mg 10/23/24 18:30 10/24/24 08:53 Amlodipine Besylate 5 Mg Tablet PO 5 mg DAILY SHAUNNA Administration Protocol Calcitriol 0.25 mcg 10/21/24 09:00 10/23/24 08:13 Calcitriol 0.25 Mcg Capsule PO 0.25 mcg Q2D@0900 SHAUNNA Administration Ceftriaxone Sodium 1 gm 10/20/24 22:00 10/23/24 20:07 Ceftriaxone Sodium 1 Gm Vial IVPUSH 1 gm Q24H SHAUNNA Administration Docusate Sodium 100 mg 10/22/24 21:00 10/24/24 08:49 Docusate Sodium 100 Mg Capsule PO 100 mg BID SHAUNNA Administration Ferrous Sulfate 324 mg 10/20/24 22:00 10/24/24 08:49 Ferrous Sulfate 324 Mg Tablet.Dr PO 324 mg BID SHAUNNA Administration Hydromorphone HCl 0.5 mg 10/20/24 21:17 10/23/24 16:35 Hydromorphone Hcl 1 Mg/Ml Syringe IVPUSH 0.5 mg Q4H PRN Administration Pain, Severe (Pain Scale 7-10) Protocol Metronidazole 500 mg in 100 mls @ 100 mls/hr 10/22/24 17:00 10/24/24 08:50 Flagyl IV 100 mls/hr Q8H SHAUNNA Administration Lactated Ringer's 1,000 mls @ 100 mls/hr 10/23/24 10:30 10/24/24 05:31 Lr IVCONT 100 mls/hr .Q10H SHAUNNA Administration Insulin Human Lispro 0 unit 10/23/24 11:30 10/24/24 07:55 Insulin Lispro 100 Unit/Ml 3 Ml Vial SUBCUT Not Given [facility] Protocol Lisinopril 40 mg 10/21/24 09:00 10/24/24 08:53 Lisinopril 40 Mg Tablet PO 40 mg DAILY SHAUNNA Administration Protocol Potassium Chloride 40 meq 10/24/24 07:15 10/24/24 08:48 Potassium Chloride Er 20 Meq Tab.Er.Prt PO 10/24/24 19:16 40 meq Q6H SHAUNNA Administration Sodium Chloride 3 ml 10/21/24 00:00 10/24/24 08:51 0.9 % Sodium Chloride Flush 3 Ml Syringe IVFLUSH 3 ml QSHIFT SHAUNNA Administration Discontinued Medications Generic Name Dose Route Start Last Admin Trade Name Freq PRN Reason Stop Dose Admin Sodium Chloride 500 mls @ 500 mls/hr 10/20/24 18:39 10/20/24 19:49 Ns IV 10/20/24 19:38 Infused .Q1H ONE Infusion Metronidazole 500 mg in 100 mls @ 100 mls/hr 10/20/24 22:00 10/22/24 17:17 Flagyl IV Not Given Q8H SHAUNNA Acetaminophen 1,000 mg in 100 mls @ 400 mls/hr 10/21/24 04:23 10/21/24 04:59 Ofirmev IV 10/21/24 04:37 Infused ONCE ONE Infusion Lactated Ringer's 1,000 mls @ 125 mls/hr 10/21/24 10:00 10/23/24 11:02 Lr IVCONT Infused .Q8H SHAUNNA Infusion Morphine Sulfate 4 mg 10/20/24 18:39 10/20/24 18:49 Morphine Sulfate 4 Mg/Ml Cartridge IVPUSH 10/20/24 18:40 4 mg ONCE ONE Administration Protocol Potassium Chloride 40 meq 10/22/24 11:23 10/22/24 11:33 Potassium Chloride Er 20 Meq Tab.Er.Prt PO 10/22/24 11:24 40 meq ONCE ONE Administration Discharge Plan Discharge Clinical Impression: Calculous cholecystitis Patient Disposition: Admitted As Inpatient Interventions: Admission Worksheet (ED) Last Done: 10/21/24 16:00 Discharge Date/Time: 10/21/24 16:44
--- NOTE | 2024-10-20 11:17 | ECG_ITS ---
Test Reason : ABDOMINAL PAIN Blood Pressure : */* mmHG Vent. Rate : 61 BPM Atrial Rate : * BPM P-R Int : * ms QRS Dur : 94 ms QT Int : 444 ms P-R-T Axes : * -6 206 degrees QTcB Int : 446 ms Atrial fibrillation Minimal voltage criteria for LVH, may be normal variant ( [place] product ) ST & T wave abnormality, consider inferolateral ischemia Abnormal ECG When compared with ECG of 28-Jun-2023 15:55, T wave inversion more evident in Lateral leads Referred By: Martina Baum Electronically Signed By: AHMET KAPADIA
[2024-10-20 11:34] LABS: MANUAL DIFF FLAG NO
[2024-10-20 11:37] LABS: Basophils Percent Auto 0.3 % (0-2); Eosinophils Percent Auto 0.3 % (0-4); Hematocrit 49.3 % (42.0-52.0); Hemoglobin 16.8 g/dl (14.0-18.0); Imm Gran Abs Auto 0.04 X10*3/uL (0.00-0.03); Imm Gran Pct Auto 0.4 % (0.0-0.4); Lymphocytes Absolute Auto 1.2 X10*3/uL (1.2-4.9); Lymphocytes Percent Auto 11.5 % (20-40); Mean Corpuscular HGB Conc 34.1 g/dl (31.0-36.0); Mean Corpuscular Hemoglobin 28.9 pg (27.0-33.0); Mean Corpuscular Volume 84.7 fL (80.0-98.0); Mean Platelet Volume 8.9 fL (9.4-12.4); Monocytes Absolute Auto 0.9 X10*3/uL (0.1-1.2); Monocytes Percent Auto 8.8 % (2-11); Neutrophils Percent Auto 78.7 % (45-73); Platelet Count 191 X10*3/uL (160-400); Red Blood Count 5.82 X10*6/uL (4.60-5.80); Red Cell Distribution Width 14.3 % (11.0-16.0); White Blood Count 10.2 X10*3/uL (4.8-10.8)
[2024-10-20 11:38] LABS: Appearance Urine Clear; Color Urine Yellow; Glucose Urine UA >=1000 mg/dL (Negative); Leukocyte Esterase Urine Negative (Negative); Nitrite Urine Negative (Negative); PH 5.5 (5.0-9.0); UMIC TRIGGER UACC YES; Urine Blood Trace (Negative); Urine Ketones Negative (Negative); Urine Protein 300 (3+) mg/dL (Neg-Trace)
[2024-10-20 11:50] LABS: Bacteria Urine None Seen (None Seen); Granular Casts Urine Present; RBC Urine 0-2 /HPF (0-2); Squamous Epithelial Cell Urine 0-2 /HPF (0-2); WBC Urine 0-5 /HPF (0-5)
[2024-10-20 11:53] LABS: Alanine Aminotransferase 11 U/L (0-40); Albumin Level 3.8 g/dL (3.5-5.0); Alkaline Phosphatase 126 U/L (39-117); Anion Gap 13 (12-20); Aspartate Amino Transferase 22 U/L (5-37); Bilirubin Total 1.7 mg/dL (0.0-1.0); Blood Urea Nitrogen 50 mg/dL (9-16); C Reactive Protein 13.33 mg/dL (< or = 0.50); Calcium 9.5 mg/dL (8.4-10.2); Carbon Dioxide 27 mmol/L (22-29); Chloride 104 mmol/L (96-108); Creatinine Clr Calc Pharmacy 30.9; Estimated Glomerular Filt Rate 27; Glucose Random 125 mg/dL (60-115); Lipase 16 U/L (8-78); Potassium 3.3 mmol/L (3.3-5.1); Sodium 141 mmol/L (135-145); Total Protein 8.3 g/dL (6.5-8.0)
[2024-10-20 12:15] LABS: Erythrocyte Sedimentation Rate 45 MM/HR (0-15)
[2024-10-20 17:49] VITALS: BP 166/79; PULSE 67; RESP 18; TEMP 36.4; O2SAT 96
--- OUTSIDE RECORDS SUMMARY | 2024-10-20 18:19 | XMS_ITS | Encounter Summary ---
Author Organization [employer] Address [address] [place] [address] Care Team Providers Care Haulage Engine Operator Name Role Phone Cynthia Marshall NP Primary Care Provider [phone] Reason for Visit * Reason Comments Med Refill Encounter Details Date Type Department Care Team (Late st Contact Info) Description 05/16/2024 Refill [facility] [address] [place] [address] Oly Guerrero FNP Social History Tobacco Use [...] documented as of this encounter Care Teams Haulage Engine Operator Relationship Specialty Start Date End Date Cynthia Marshall NP [address] [place] [address] PCP - General Family Medicine 09/10/23 documented as of this encounter
--- OUTSIDE RECORDS SUMMARY | 2024-10-20 18:19 | XMS_ITS | Encounter Summary ---
Author Organization [employer] Address [address] [place] [address] Care Team Providers Care Anthropologist Physical Name Role Phone Cynthia Marshall NP Primary Care Provider [phone] Reason for Visit * Reason Comments Right upper qudrant pain Encounter Details Date Type Department Care Team ([facility] st Contact Info) Description 10/20/2024 10:00 AM EDT Office Visit [facility] [address] [place], [place] [phone] Corby Jacobs MD [address] [place] [address] Right upper quadrant abdominal pain (Primary Dx) Social History Tobacco Use Types [...] AM EDT documented as of this encounter Last Filed Vital Signs Vital Sign Reading Time Taken Comments Blood Pressure 154/84 10/20/2024 9:52 AM EDT Pulse 98 10/20/2024 9:52 AM EDT Temperature 36.5 ??C (97.7 ??F) 10/20/2024 9:52 AM ED T Respiratory Rate 17 10/20/2024 9:52 AM EDT Oxygen Saturation 93% 10/20/2024 9:52 AM EDT Inhaled Oxygen Concentration - - Weight 90 kg (198 lb 6.4 oz) 10/20/2024 9:52 AM EDT Height - - Body Mass Index 31.07 07/15/2024 1:16 PM EST documented in this encounter Progress Notes * Corby Jacobs MD - 10/20/2024 10:00 AM EDT Subjective Patient ID: Ethan Cristina is a 73 y.o. male. HPI This morning at 8 AM, 2-1/2 hours ago, removed had onset of constant severe right upper quadrant pain which is difficult to describe, worse if he bends forward. Has not eaten today. No nausea, vomiting, or diarrhea. Denies fever. Has never had similar pain. Past abdominal surgical history: Appendectomy. Followed by nephrology, had office visit [address] Guerin. 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/HCC) Iron deficiency anemia Metabolic bone disease Mild cognitive disorder Paroxysmal atrial fibrillation (CMS/HCC) Type 2 diabetes mellitus (CMS/HCC) Vitamin D deficiency Renal osteodystrophy Chronic systolic heart failure (CMS/HCC) Skin lesion Stage 3b chronic kidney disease (CMS/HCC) Anemia due to stage 3a chronic kidney disease (CMS/HCC) (CMS/HCC) CKD stage 4 secondary to hypertension (CMS/HCC) CHF (congestive heart failure), NYHA class I, chronic, combined (CMS/HCC) Elevated uric acid in blood Hyperuricemia Primary osteoarthritis of both knees Prepatellar bursitis of left knee Osteoarthritis of left knee Other hydronephrosis Taking Eliquis for a. Fib. The following portions of the chart were reviewed this encounter and updated as appropriate: Tobacco Allergies Meds Problems Med Hx Surg Hx Fam Hx Review of Systems Constitutional: Negative for fever. Respiratory: Negative for shortness of breath. Cardiovascular: Negative for chest pain. Gastrointestinal: Positive for abdominal pain. Negative for diarrhea, nausea and vomiting. Skin: Negative for rash. Neurological: Negative for headaches. Physical exam: Appears slightly uncomfortable due to pain. HEENT normal except for left pterygium and left lateral cornea white area. Lungs clear Heart regular with no murmur No flank tenderness Abdomen: Marked tenderness in the right upper quadrant. Rest of abdomen nontender. Objective Procedures Assessment/Plan Diagnoses and all orders for this visit: Right upper quadrant abdominal pain Discussed outpatient evaluation, but due to degree of pain the patient opted for going to the ED now for further treatment and evaluation. documented in this encounter Plan of Treatment Not on file documented as of this encounter Visit Diagnoses Diagnosis Right upper quadrant abdominal pain- Primary documented in this encounter Additional Health Concerns Assessment Noted Time PHQ-9 Depression Total Score: 0 01/21/20 24 11:17 AM EDT documented as of this encounter Care Teams Anthropologist Physical Relationship Specialty Start Date End Date Cynthia Marshall NP [address] [place] [address] PCP - General Family Medicine 09/10/23 documented as of this encounter
--- OUTSIDE RECORDS SUMMARY | 2024-10-20 18:19 | XMS_ITS | Encounter Summary ---
Author Organization [employer] Address [address] [place] [address] Care Team Providers Care Hat Mender Name Role Phone Cynthia Marshall NP Primary Care Provider [phone] Encounter Details Date Type Department Care Team ([facility] st Contact Info) Description 09/26/2024 Orders Only [facility] MED[facility]INE [address] [place], [place] [phone] Cynthia Marshall NP [address] [place] [address] Stage 3b chronic kidney disease (CMS/HCC) Social [...] documented as of this encounter Care Teams Hat Mender Relationship Specialty Start Date End Date Cynthia Marshall NP [address] [place] [id number] PCP - General Family Medicine 09/10/23 documented as of this encounter
--- OUTSIDE RECORDS SUMMARY | 2024-10-20 18:19 | XMS_ITS | Encounter Summary ---
Author Organization [employer] Address [address] 7t [place] [address] Care Team Providers Care Television Repair Teacher Name Role Phone Cynthia Marshall NP Primary Care Provider [phone] Encounter Details Date Type Department Care Team ([facility] st Contact Info) Description 05/16/2024 Telephone [facility] [address] [place], [place] [phone] Cynthia Marshall NP 230 [place] [address] Social History Tobacco Use Types Packs/Day Years [...] 05/16/2024 3:02 PM EDT Safety and Incident Fall Intern Denae Carey [phone], please contact expert medical writer when patient comesinto the [facility]. documented in this encounter Plan of Treatment Not on file documented as of this encounter Visit Diagnoses Not on filedocumented in this encounter Additional Health Concerns Assessment Noted Time PHQ-9 Depression Total Score: 0 01/21/20 24 11:17 AM EDT documented as of this encounter Care Teams Television Repair Teacher Relationship Specialty Start Date End Date Cynthia Marshall NP [address] [place] [phone] PCP - General Family Medicine 09/10/23 documented as of this encounter
--- OUTSIDE RECORDS SUMMARY | 2024-10-20 18:19 | XMS_ITS | Encounter Summary ---
Author Organization [employer] Address [address] [facility] 7t [place] [address] Care Team Providers Care Examining Chair Assembler Name Role Phone Cynthia Marshall NP Primary Care Provider [phone] Reason for Visit * Reason Comments Med Refill Encounter Details Date Type Department Care Team ([facility] st Contact Info) Description 11/04/2023 Refill [facility] 230 [place], [place] [phone] Blanca Crowley MD 230 [place] [address] Social History Tobacco Use Types Packs/Day Years [...] documented as of this encounter Care Teams Examining Chair Assembler Relationship Specialty Start Date End Date Cynthia Marshall NP [address] [place] [address] PCP - General Family Medicine 09/10/23 documented as of this encounter
--- OUTSIDE RECORDS SUMMARY | 2024-10-20 18:19 | XMS_ITS | Encounter Summary ---
Author Organization [employer] Address [address] [facility] [address] 7t [place] [address] Care Team Providers Care Agricultural Service Worker Name Role Phone Cynthia Marshall NP Primary Care Provider [phone] Encounter Details Date Type Department Care Team (Late st Contact Info) Description 12/31/2023 Orders Only [facility] 230 [place] [address] Corby Jacobs MD 230 [place] [address] Elevated blood uric acid level (Primary Dx) [...] documented as of this encounter Care Teams Agricultural Service Worker Relationship Specialty Start Date End Date Cynthia Marshall NP 230 [place] [address] PCP - General Family Medicine 09/10/23 documented as of this encounter
--- OUTSIDE RECORDS SUMMARY | 2024-10-20 18:19 | XMS_ITS | Encounter Summary ---
Author Organization [employer] [facility] Address [address] 7t [place] [address] Care Team Providers Care Marketing Support Assistant Name Role Phone Virginia Perez Primary Care Provider [phone] Blanca Crowley MD Primary Care Pro vider Cynthia Marshall NP Primary Care Provider [phone] Encounter Details Date Type Department Care Team (Late st Contact Info) Description 01/01/2023 Abstract [facility] MED[facility]INE 230 [place] [address] Virginia Perez FNP [address] [place] [address] [place] [address] Social History Tobacco Use Types Packs/Day Years [...] on filedocumented in this encounter Care Teams Marketing Support Assistant Relationship Specialty Start Date End Date Virginia Perez FNP PCP - General Family Medicine 04/28/22 03/28/23 Blanca Crowley MD 230 [place] [address] PCP - General Internal Medicine 03/29/23 09/09/23 Cynthia Marshall NP 230 [place] [address] PCP - General Family Medicine 09/10/23 documented as of this encounter
--- OUTSIDE RECORDS SUMMARY | 2024-10-20 18:19 | XMS_ITS | Encounter Summary ---
Author Organization [facility] Address [address] [place] [address] 7t [place] [address] Care Team Providers Care Haul Cane Brakeman Name Role Phone Virginia Perez Primary Care Provider [phone] Blanca Crowley MD Primary Care Pro vider Cynthia Marshall NP Primary Care Provider [phone] Encounter Details Date Type Department Care Team (Latest Contact Info) Description 03/31/2021 Abstract [facility] CONVERSIONS Dental, Provider, DDS Social History Tobacco [...] on filedocumented in this encounter Care Teams Haul Cane Brakeman Relationship Specialty Start Date End Date Virginia Perez FNP PCP - General Family Medicine 04/28/22 03/28/23 Blanca Crowley MD 230 [place] [address] PCP - General Internal Medicine 03/29/23 09/09/23 Cynthia Marshall NP 230 [place] [address] PCP - General Family Medicine 09/10/23 documented as of this encounter
--- OUTSIDE RECORDS SUMMARY | 2024-10-20 18:19 | XMS_ITS | Clinical Summary ---
Author Organization [facility] Address [address] [place] [address] Care Team Providers Care Forestry Consultant Name Role Phone Arielle Godinez Primary Care Provider Unavailabl e Allergies No known active allergies Medications Lancets (OneTouch Delica Plus Adumnd18G) [facility] TEST BLOOD SUGAR NEEDED, IN THE MORNING [...] (01/04/2024): Last Assessment & Plan: Lesion right islam suspicious for [place], referral to derm Chronic [...] age to complete this topic [place] ([id number]) [place] [address] [place] [facility] DUAL COMPLETE ([id number]) [place] [address] Care Teams Forestry Consultant Relationship Specialty Start Date End Date Arielle Godinez PCP - General Family Medicine 08/10/21
--- OUTSIDE RECORDS SUMMARY | 2024-10-20 18:19 | XMS_ITS | Encounter Summary ---
Author Organization [facility] Address [address] [place] [address] Phone Care Team Providers Care Gear Keeper Name Role Phone Arielle Godinez Primary Care Provider Unavailabl e Encounter Details Date Type Department Care Team (Late st Contact Info) Description 01/03/2024 Office Communication [facility] [address] [place] [address] Soy Meléndez MD [address] [facility] [address] [place] [phone] Social History Tobacco Use Types Packs/Day Years [...] on filedocumented in this encounter Care Teams Gear Keeper Relationship Specialty Start Date End Date Arielle Godinez PCP - General Family Medicine 08/10/21 documented as of this encounter
--- OUTSIDE RECORDS SUMMARY | 2024-10-20 18:19 | XMS_ITS | Encounter Summary ---
Author Organization [employer] Address [address] [facility] [address] 7t [place] [address] Care Team Providers Care Water Taxi Driver Name Role Phone Cynthia Marshall NP Primary Care Provider [phone] Encounter Details Date Type Department Care Team ([facility] st Contact Info) Description 04/11/2024 Orders Only [facility] MEDICINE [address] [place], [place] [phone] Cynthia Marshall NP 230 [place] [address] Stage 3b chronic kidney disease (CMS/HCC) Social [...] EST) Sodium 141 135 - 145 mmol/L [facility] Potassium 3.4 3.3 - 5.1 mmol/L [facility] Chloride 104 96 - 108 mmol/L [facility] Carbon Dioxide 28 22 - 29 mmol/L [facility] Anion Gap 12 12 - 20 [facility] Urea Nitrogen (BUN) 42(H) 9 - 16 mg/dL [facility] Creatinine, Serum 1.96(H) 0.5 - 1.4 mg/dL [facility] Estimated Glomerular Filt Rate 34 [facility] Comment:Chronic Kidney Disea se: Estimated GFR < 60 mL/min/1.40w6Paceov Kidney Disease: Estimated GFR < 15 mL/min/1.73m2 Glucose 110 60 - 115 mg/dL [facility] Calcium 9.2 8.4 - 10.2 mg/dL [facility] Blood Venous blood specimen / Unknown 07/04/2024 12:13 PM EST 07/04/2024 12:13 PM EST us Cynthia Marshall POLICE INSPECTOR LAB BLOOD ORDERABLES Final Resul t [facility] [address] [place] [address] [phone] documented in this encounter Visit Diagnoses Diagnosis Stage 3b chronic kidney disease (CMS/HCC) documented in this encounter Additional Health Concerns Assessment Noted Time PHQ-9 Depression Total Score: 0 01/21/20 24 11:17 AM EDT documented as of this encounter Care Teams Water Taxi Driver Relationship Specialty Start Date End Date Cynthia Marshall NP [address] [place] [address] PCP - General Family Medicine 09/10/23 documented as of this encounter
--- OUTSIDE RECORDS SUMMARY | 2024-10-20 18:19 | XMS_ITS | Encounter Summary ---
Author Organization [email or web address] Address [address] [facility] [address] 7[address] [place] [address] Care Team Providers Care Training And Development Assistant Name Role Phone Cynthia Marshall NP Primary Care Provider [phone] Encounter Details Date Type Department Care Team (Late st Contact Info) Description 10/20/2024 Orders Only GENERIC EXTERNAL DATA DEPARTMENT Provider, Generic External Data Social History Tobacco Use Types Packs/Day Years [...] Procedure Name Priority Date/Time Associated Diagnosis Comments URINALYSIS, COMPLETE, WITH REFLEX TO CULTURE Routine 10/20/2024 11:30 AM EDT CBC WITH AUTO DIFFERENTIAL Routine 10/20/2024 11:26 AM EDT SED RATE BY MODIFIED WESTERGREN Routine 10/20/2024 11:26 AM EDT C-REACTIVE PROTEIN Routine 10/20/2024 11 :26 AM EDT MAGNESIUM Routine 10/20/2024 11:26 AM EDT LIPASE Routine 10/20/2024 11:26 AM EDT COMPREHENSIVE METABOLIC PANEL Routine 10/20/2024 11:26 AM EDT documented in this encounter Results * (ABNORMAL) Urinalysis, Complete, with Reflex to Culture (10/20/2024 11:30 AM EDT) Color Urine Yellow [facility] Appearance Urine Clear [facility] PH 5.5 5.0 - 9.0 [facility] Glucose Urine UA >=1000(A) Negative mg/dL [facility] Urine Blood Trace(A) Negative [facility] Specific [place] - Urine 1.020 1.005 - 1.025 [facility] Urine Protein 300 (3+)(A) Neg-Trace mg/dL [facility] Urine Ketones Negative Negative mg/dL [facility] Nitrite Urine Negative Negative [facility] Leukocyte Esterase Urine Negative Negative [facility] RBC Urine 0-2 0 - 2 /HPF [facility] Urine WBC 0-5 0 - 5 /HPF [facility] Urine Squamous Epithelial Cell 0-2 0 - 2 /HPF [facility] Urine Bacteria None Seen None Seen [facility] Hyaline Casts, Urine 3-5 0 - 2 /LPF [facility] GRANULAR CASTS (#/HPF) IN URINE Present [facility] 10/20/2024 11:3 0 AM EDT 10/20/2024 11:33 AM EDT Narrative [facility] - 10/20/2024 11:51 AM EDT [id number], Clean Catch Generic External Data Provider LAB URINE ORDERAB LES Final Result Performing Organization Address [facility] Co de Phone Number [facility] [address] [place] [address] [phone] * (ABNORMAL) Sed Rate by Modified Adalergren (10/20/2024 11:26 AM EDT) Erythrocyte Sedimentation Rate 45(H) 0 - 15 MM/HR [facility] Comment:Patients with polycy themia and many hemoglobin abnormalitiesmay have depressed sed rates whereas patients with anemiamay have elevated sed rates. 10/20/2024 11:2 6 AM EDT 10/20/2024 11:33 AM EDT us Generic External Data Provider LAB BLOOD ORDERAB LES Final Result Performing Organization Address City/[facility]/ZIP Co de Phone Number [facility] [address] [place] [address] [phone] * Lipase (10/20/2024 11:26 AM EDT) Lipase 16 8 - 78 U/L [facility] 10/20/2024 11:2 6 AM EDT 10/20/2024 11:33 AM EDT us Generic External Data Provider LAB BLOOD ORDERAB LES Final Result Performing Organization Address [facility]/ZIP Co de Phone Number [facility] [address] [place] [phone] * (ABNORMAL) C-reactive Protein (10/20/2024 11:26 AM EDT) Pathologist [facility] C Reactive Protein 13.33(H) < or = 0.50 mg/dL [facility] 10/20/2024 11:2 6 AM EDT 10/20/2024 11:33 AM EDT Generic External Data Provider LAB BLOOD ORDERAB LES Final Result Performing Organization Address [facility] Co de Phone Number [facility] [address] [place] [phone] * Magnesium (10/20/2024 11:26 AM EDT) Pathologist [facility] Magnesium 2.0 1.6 - 2.6 mg/dL [facility] 10/20/2024 11:2 6 AM EDT 10/20/2024 11:33 AM EDT Generic External Data Provider LAB BLOOD ORDERAB LES Final Result Performing Organization Address [facility] Co de Phone Number [facility] [address] [place] [phone] * (ABNORMAL) Comprehensive Metabolic Panel (10/20/2024 11:26 AM EDT) Pathologist [facility] Sodium 141 135 - 145 mmol/L [facility] Potassium 3.3 3.3 - 5.1 mmol/L [facility] Chloride 104 96 - 108 mmol/L [facility] Carbon Dioxide 27 22 - 29 mmol/L [facility] Anion Gap 13 12 - 20 [facility] Urea Nitrogen (BUN) 50(H) 9 - 16 mg/dL [facility] Creatinine, Serum 2.38(H) 0.5 - 1.4 mg/dL [facility] Creatinine Clr Calc Pharmacy 30.9 [facility] Comment:eGFR (calculated fro m the MDRD study equation) and eCrCl(calculated from the Cockcroft-Gault equation) are based ondifferent parameters and may not yield comparable results.If eCrCl result is absurd, please check patient'sheight/weight. Estimated Glomerular Filt Rate 27 [facility] Comment:Chronic Kidney Disea se: Estimated GFR < 60 mL/min/1.26q7Cgoobf Kidney Disease: Estimated GFR < 15 mL/min/1.73m2 Glucose 125(H) 60 - 115 mg/dL [facility] Calcium 9.5 8.4 - 10.2 mg/dL [facility] Bilirubin, Total 1.7(H) 0.0 - 1.0 mg/dL [facility] Aspartate Amino Transferase 22 5 - 37 U/L [facility] Alanine Aminotransferase 11 0 - 40 U/L [facility] Total Protein 8.3(H) 6.5 - 8.0 g/dL [facility] Albumin Level 3.8 3.5 - 5.0 g/dL [facility] Alkaline Phosphatase 126(H) 39 - 117 U/L [facility] 10/20/2024 11:2 6 AM EDT 10/20/2024 11:33 AM EDT us Generic External Data Provider LAB BLOOD ORDERAB LES Final Result [facility] [address] [place] [phone] [phone] * (ABNORMAL) CBC auto differential (10/20/2024 11:26 AM EDT) White Blood Count 10.2 4.8 - 10.8 X10*3/uL [facility] Red Blood Count 5.82(H) 4.60 - 5.80 X10*6/uL [facility] Hemoglobin 16.8 14.0 - 18.0 g/dl [facility] Hematocrit 49.3 42.0 - 52.0 % [facility] Mean Corpuscular Volume 84.7 80.0 - 98.0 fL [facility] Mean Corpuscular Hemoglobin 28.9 27.0 - 33.0 pg [facility] Mean Corpuscular HGB Conc 34.1 31.0 - 36.0 g/dl [facility] Red Cell Distribution Width 14.3 11.0 - 16.0 % [facility] Platelet Count 191 160 - 400 X10*3/uL [facility] Mean Platelet Volume 8.9(L) 9.4 - 12.4 fL [facility] Neutrophils Percent Auto 78.7(H) 45 - 73 % [facility] Imm Gran Pct Auto 0.4 0.0 - 0.4 % [facility] Lymphocytes Percent Auto 11.5(L) 20 - 40 % [facility] Monocytes Percent Auto 8.8 2 - 11 % [facility] Eosinophils Percent Auto 0.3 0 - 4 % [facility] Basophils Percent Auto 0.3 0 - 2 % [facility] NRBC Pct Auto 0.0 0.0 - 0.2 /100WBC [facility] Neutrophils Absolute Auto 8.0 2.0 - 8.3 x10*3/uL [facility] Imm Gran Abs Auto 0.04(H) 0.00 - 0.03 X10*3/uL [facility] Lymphocytes Absolute Auto 1.2 1.2 - 4.9 X10*3/uL [facility] Monocytes Absolute Auto 0.9 0.1 - 1.2 X10*3/uL [facility] Eosinophils Absolute Auto 0.0 0.0 - 0.4 X10*3/uL [facility] Basophils Absolute Auto 0.0 0.0 - 0.2 X10*3/uL [facility] NRBC Abs Auto 0.000 0.0 - 0.012 X10*3/uL [facility] 10/20/2024 11:2 6 AM EDT 10/20/2024 11:33 AM EDT us Generic External Data Provider LAB BLOOD ORDERAB LES Final Result [facility] [address] [place] [address] [phone] documented in this encounter Visit Diagnoses Not on filedocumented in this encounter Additional Health Concerns Assessment Noted Time PHQ-9 Depression Total Score: 0 01/21/20 11:17 AM EDT documented as of this encounter Care Teams Training And Development Assistant Relationship Specialty Start Date End Date Cynthia Marshall NP [address] [place] [address] PCP - General Family Medicine 09/10/23 documented as of this encounter
--- OUTSIDE RECORDS SUMMARY | 2024-10-20 18:19 | XMS_ITS | Encounter Summary ---
Author Organization [employer] Address [address] [facility] [place] [address] Care Team Providers Care Pocket Setter Lockstitch Name Role Phone Cynthia Marshall NP Primary Care Provider [phone] Encounter Details Date Type Department Care Team ([facility] st Contact Info) Description 07/04/2024 Orders Only [facility] MEDICINE [address] [place], [place] [phone] Cynthia Marshall NP [address] [place] [address] Stage 3b chronic kidney disease (CMS/HCC) Social [...] EST Narrative 08/08/2024 10:06 AM EST ? [facility] ?[address] ?[place] [address] ?Nuclear Medicine Report ? Signed ? Patient: Cristina,Ethan ?MR#: [id number] ?? 0 ? : 1950 ?Acct:[id number] ? Age/Sex: 73 / M ?ADM Date: 07/31/24 ? Loc: HO.NUCMED ? Attending Dr: Kong Duarte MD ? Ordering Physician: Kong Duarte MD ?? Date of Service: 07/31/24 ?? Procedure(s): NM renal flow w pharm int ?? Accession Number(s): [id number] ? cc: Kong Duarte MD; Cynthia Marshall INTERNATIONAL ORGANIZER ? EXAMINATION: ?? RENAL DYNAMIC IMAGING STUDY [...] DD/ 1058 ? TD/TT: 07/31/24 1345 ? Education Professional: ? Procedure Note Tamara, Image - 08/08/[address] [address] Nuclear Medicine Report Signed Patient: Tobin Cristina#: [id number] 0 : 3Acct:[id number] Age/Sex: 73 / MADM Date: 07/31/24 Loc: SUSAN Attending Dr: Kong Duarte MD Ordering Physician: Kong Duarte MD Date of Service: 07/31/24 Procedure(s): NM renal flow w pharm int Accession Number(s): [id number] cc: Kong Duarte MD; Cynthia Marshall NP [...] by: Janice Pate MD 08/08/2024 10:03 AM [facility] Dictated By: Janice Pate Signed By: <Electronically signed by Janice Pate in OV> 08/08/24 1003 DD/ 1058 TD/TT: 07/31/24 1345 Education Professional: [facility] External Provider IMG NM PROCEDURES Final Result documented in this encounter Visit Diagnoses Diagnosis Stage 3b chronic kidney disease (CMS/HCC) documented in this encounter Additional Health Concerns Assessment Noted Time PHQ-9 Depression Total Score: 0 06/10/20 24 11:17 AM EDT documented as of this encounter Care Teams Pocket Setter Lockstitch Relationship Specialty Start Date End Date Cynthia Marshall NP [address] [place] [address] PCP - General Family Medicine 09/10/23 documented as of this encounter
--- OUTSIDE RECORDS SUMMARY | 2024-10-20 18:19 | XMS_ITS | Clinical Summary ---
Author Organization [employer] Address [address] [facility] [address] [place] [address] Care Team Providers Care Medical Claims Specialist Name Role Phone Cynthia Marshall NP Primary Care Provider [phone] Allergies No known active allergies Medications dapagliflozin [...] 4 Active Blood Glucose Monitoring Suppl (FreeStyle [place] Lite) w/Device kitIndications:Ty pe 2 diabetes mellitus with other specified complication, without long-term current use of insulin ([facility]) Use to test blood sugar bid dx dm 1 kit 4 Active glucose blood ([employer] Ultra) test stripIndications: Type 2 diabetes mellitus with other specified complication, without long-term current use of insulin (CMS/HCC) test blood sugar as needed, in the morning before breakfast 100 each 11 4 Active Lancets 33G miscIndications:T ype 2 diabetes mellitus with other specified complication, without long-term current use of insulin ([facility]) 100 each 2 times daily. 60 each [...] failure), NYHA class I, chronic, combined ([facility]) Take 1 tablet daily . 30 tablet 1 4 Active Eliquis 2.5 MG tabletIndications :Paroxysmal atrial fibrillation ([facility]) TAKE 1 TABLET BY MOUTH TWICE DAILY [...] Plan (10/08/2023 5:16 PM EST): Lesion right mormonism suspicious for AK, referral to derm Stage [...] Encounters Date Type Department Care Team Description 10/20/2024 10:00 AM EDT Office Visit [facility] [address] [place] [address] Corby Jacobs MD Right upper quadrant abdominal pain (Primary Dx) 10/20/2024 Orders Only GENERIC EXTERNAL DATA DEPARTMENT Provider, Generic External Data 09/26/2024 Orders Only [facility] [address] [place] [phone] Cynthia Marshall NP Stage 3b chronic kidney [...] 6.4 oz) 10/20/2024 9:52 AM EDT Height 170.2 cm (5' 7 ) 07/15/2024 1:16 PM EST Body Mass Index 31.07 07/15/2024 1:16 PM EST Plan of Treatment [...] series) 11/24/2022 06/28/2022, 05/26/2022 COVID-19 Vaccine ( - season) 2024 07/11/2021, 01/28/2021, 12/31/2020 Influenza Vaccine (#1) 2024 , 08/01/2021, 06/09/2013, Additional history exists Diabetes: Hemoglobin A1C 10/16/2024 024, 10/08/2023, 03/29/2023, Additional history exists Depression Screening 01/20/2025 01/21/2024, 01/21/20 24 SDOH Screening 01/20/2025 01/21/2024 Alcohol/Substance Use Screening 04/18/2025 04/18/2024 Tobacco Screening 10/20/2025 10/20/2024 DTaP/Tdap/Td Vaccines (3 - Td or Tdap) [...] TO CULTURE Routine 10/20/2024 11:30 AM EDT SED RATE BY MODIFIED WESTERGREN Routine 10/20/2024 11:26 AM EDT LIPASE Routine 10/20/2024 11:26 AM EDT C-REACTIVE PROTEIN Routine 10/20/2024 11 :26 AM EDT MAGNESIUM Routine 10/20/2024 11:26 AM EDT COMPREHENSIVE METABOLIC PANEL Routine 10/20/2024 11:26 AM EDT CBC WITH AUTO DIFFERENTIAL Routine 10/20/2024 11:26 AM EDT NM KIDNEY FLOW/FUNCTION W PHARMACOLOGICAL INTERVENTION Routine 07/31/2024 10:58 AM EST POCT GLYCATED HEMOGLOBIN, TOTAL Routine 04/18/2024 11:36 AM EDT Type 2 diabetes mellitus with other specified complication, without long-term current use of insulin ([facility]) LIPID PANEL, STANDARD Routine 07/11/2021 10:28 AM EST from Last 3 Months or Most Recently Relevant to Health Maintenance Results * (ABNORMAL) Urinalysis, Complete, with Reflex to Culture (10/20/2024 11:30 AM EDT) Color Urine Yellow [facility] Appearance Urine Clear [facility] PH 5.5 5.0 - 9.0 [facility] Glucose Urine UA >=1000(A) Negative mg/dL [facility] Urine Blood Trace(A) Negative [facility] Specific [place] - Urine 1.020 1.005 - 1.025 [facility] Urine Protein 300 (3+)(A) Neg-Trace mg/dL [facility] Urine Ketones Negative Negative mg/dL [facility] Nitrite Urine Negative Negative [facility] Leukocyte Esterase Urine Negative Negative [facility] RBC Urine 0-2 0 - 2 /HPF [facility] Urine WBC 0-5 0 - 5 /HPF [facility] Urine Squamous Epithelial Cell 0-2 0 - 2 /HPF [facility] Urine Bacteria None Seen None Seen [facility] Hyaline Casts, Urine 3-5 0 - 2 /LPF [facility] GRANULAR CASTS (#/HPF) IN URINE Present [facility] 10/20/2024 11:3 0 AM EDT 10/20/2024 11:33 AM EDT Narrative [facility] - 10/20/2024 11:51 AM EDT [id number], Clean Catch us Generic External Data Provider LAB URINE ORDERAB LES Final Result [facility] [address] [place] [phone] * (ABNORMAL) CBC auto differential (10/20/2024 11:26 AM EDT) White Blood Count 10.2 4.8 - 10.8 X10*3/uL [facility] Red Blood Count 5.82(H) 4.60 - 5.80 X10*6/uL [facility] Hemoglobin 16.8 14.0 - 18.0 g/dl [facility] Hematocrit 49.3 42.0 - 52.0 % [facility] Mean Corpuscular Volume 84.7 80.0 - 98.0 fL [facility] Mean Corpuscular Hemoglobin 28.9 27.0 - 33.0 pg [facility] Mean Corpuscular HGB Conc 34.1 31.0 - 36.0 g/dl [facility] Red Cell Distribution Width 14.3 11.0 - 16.0 % [facility] Platelet Count 191 160 - 400 X10*3/uL [facility] Mean Platelet Volume 8.9(L) 9.4 - 12.4 fL [facility] Neutrophils Percent Auto 78.7(H) 45 - 73 % [facility] Imm Gran Pct Auto 0.4 0.0 - 0.4 % [facility] Lymphocytes Percent Auto 11.5(L) 20 - 40 % [facility] Monocytes Percent Auto 8.8 2 - 11 % [facility] Eosinophils Percent Auto 0.3 0 - 4 % [facility] Basophils Percent Auto 0.3 0 - 2 % [facility] NRBC Pct Auto 0.0 0.0 - 0.2 /100WBC [facility] Neutrophils Absolute Auto 8.0 2.0 - 8.3 x10*3/uL [facility] Imm Gran Abs Auto 0.04(H) 0.00 - 0.03 X10*3/uL [facility] Lymphocytes Absolute Auto 1.2 1.2 - 4.9 X10*3/uL [facility] Monocytes Absolute Auto 0.9 0.1 - 1.2 X10*3/uL [facility] Eosinophils Absolute Auto 0.0 0.0 - 0.4 X10*3/uL [facility] Basophils Absolute Auto 0.0 0.0 - 0.2 X10*3/uL [facility] NRBC Abs Auto 0.000 0.0 - 0.012 X10*3/uL [facility] 10/20/2024 11:2 6 AM EDT 10/20/2024 11:33 AM EDT us Generic External Data Provider LAB BLOOD ORDERAB LES Final Result [facility] [address] [place] [phone] * (ABNORMAL) Sed Rate by Modified Reshma (10/20/2024 11:26 AM EDT) Erythrocyte Sedimentation Rate 45(H) 0 - 15 MM/HR [facility] Comment:Patients with polycy themia and many hemoglobin abnormalitiesmay have depressed sed rates whereas patients with anemiamay have elevated sed rates. 10/20/2024 11:2 6 AM EDT 10/20/2024 11:33 AM EDT us Generic External Data Provider LAB BLOOD ORDERAB LES Final Result Performing Organization Address [facility] Co de Phone Number [facility] [address] [place] [phone] * (ABNORMAL) C-reactive Protein (10/20/2024 11:26 AM EDT) C Reactive Protein 13.33(H) < or = 0.50 mg/dL [facility] 10/20/2024 11:2 6 AM EDT 10/20/2024 11:33 AM EDT Generic External Data Provider LAB BLOOD ORDERAB LES Final Result Performing Organization Address [facility] Co de Phone Number [facility] [address] [place] [phone] * Magnesium (10/20/2024 11:26 AM EDT) Magnesium 2.0 1.6 - 2.6 mg/dL [facility] 10/20/2024 11:2 6 AM EDT 10/20/2024 11:33 AM EDT us Generic External Data Provider LAB BLOOD ORDERAB LES Final Result Performing Organization Address [facility] Co de Phone Number [facility] [address] [place] [phone] * Lipase (10/20/2024 11:26 AM EDT) Lipase 16 8 - 78 U/L [facility] 10/20/2024 11:2 6 AM EDT 10/20/2024 11:33 AM EDT Generic External Data Provider LAB BLOOD ORDERAB LES Final Result Performing Organization Address [facility]/ZIP Co de Phone Number [facility] [address] [place] [phone] * (ABNORMAL) Comprehensive Metabolic Panel (10/20/2024 11:26 AM EDT) Sodium 141 135 - 145 mmol/L [facility] Potassium 3.3 3.3 - 5.1 mmol/L [facility] Chloride 104 96 - 108 mmol/L [facility] Carbon Dioxide 27 22 - 29 mmol/L [facility] Anion Gap 13 12 - 20 [facility] Urea Nitrogen (BUN) 50(H) 9 - 16 mg/dL [facility] Creatinine, Serum 2.38(H) 0.5 - 1.4 mg/dL [facility] Creatinine Clr Calc Pharmacy 30.9 [facility] Comment:eGFR (calculated fro m the MDRD study equation) and eCrCl(calculated from the Cockcroft-Gault equation) are based ondifferent parameters and may not yield comparable results.If eCrCl result is absurd, please check patient'sheight/weight. Estimated Glomerular Filt Rate 27 [facility] Comment:Chronic Kidney Disea se: Estimated GFR < 60 mL/min/1.90b4[place] Kidney Disease: Estimated GFR < 15 mL/min/1.73m2 Glucose 125(H) 60 - 115 mg/dL [facility] Calcium 9.5 8.4 - 10.2 mg/dL [facility] Bilirubin, Total 1.7(H) 0.0 - 1.0 mg/dL [facility] Aspartate Amino Transferase 22 5 - 37 U/L [facility] Alanine Aminotransferase 11 0 - 40 U/L [facility] Total Protein 8.3(H) 6.5 - 8.0 g/dL [facility] Albumin Level 3.8 3.5 - 5.0 g/dL [facility] Alkaline Phosphatase 126(H) 39 - 117 U/L [facility] 10/20/2024 11:2 6 AM EDT 10/20/2024 11:33 AM EDT us Generic External Data Provider LAB BLOOD ORDERAB LES Final Result [facility] [address] [place] [phone] * NM Kidney Flow/Function w/ Pharmacological Intervention (07/31/2024 10:58 AM EST) Anatomical Region Laterality Modality Body Nuclear Medicine 07/31/2024 10:5 8 AM EST Narrative 08/08/2024 10:06 AM EST ? [facility] ?[address] ?[place] [address] ?Nuclear Medicine Report ? Signed ? Patient: Cristina,Ethan ?MR#: [id number] ?? 0 ? : 1950 ?Acct:[id number] ? Age/Sex: 73 / M ?ADM Date: 07/31/24 ? Loc: HO.NUCMED ? Attending Dr: Kong Duarte MD ? Ordering Physician: Kong Duarte MD ?? Date of Service: 07/31/24 ?? Procedure(s): NM renal flow w pharm int ?? Accession Number(s): [id number] ? cc: Kong Duarte MD; Cynthia Marshall NP ? EXAMINATION: ?? RENAL DYNAMIC IMAGING STUDY [...] DD/ 1058 ? TD/TT: 07/31/24 1345 ? Director Of Brand Marketing: ? Procedure Note Zulyter, Image - 08/08/2024 [place] [address] Nuclear Medicine Report Signed Patient: Tobin Cristina#: [id number] 0 : 3Acct:[id number] Age/Sex: 73 / MADM Date: 07/31/24 Loc: SUSAN Attending Dr: Kong Duarte MD Ordering Physician: Kong Duarte MD Date of Service: 07/31/24 Procedure(s): NM renal flow w pharm int Accession Number(s): [id number] cc: Kong Duarte MD; Cynthia Marshall NP [...] 08/08/24 1003 DD/ 1058 TD/TT: 07/31/24 1345 Director Of Brand Marketing: [facility] External Provider IMG NM PROCEDURES Final Result * POCT HGB A1C (04/18/2024 11:36 AM EDT) Pathologist [facility] Hemoglobin A1C 6.0 4.0 - 6.0 % QC Media Lot # [id number] Lot# Expiration Date [id number] Blood 04/18/2024 11:3 6 AM EDT Cynthia Marshall NP POINT OF CARE TEST ENTER/EDIT OR DERABLES Final Result * (ABNORMAL) LIPID PANEL, STANDARD (07/11/2021 10:28 AM EST) Chol/HDLC Ratio 5.7(H) <5.0 (calc) [facility] Cholesterol, Total 178 <200 mg/dL [...] ?? Terry PRESCOTT et al. SHARITA. 2013;310(19): 2963-5170 ?? (http://[email or web address].[email or web address]/faq/[email or web address]) Non-HDL Cholesterol 147(H) <130 mg/dL (calc) [facility] Comment: For patients with diabetes plus 1 major ASCVD risk ?? factor, treating to a non-HDL-C goal of <100 mg/dL ?? (LDL-C of <70 mg/dL) is considered a therapeutic ?? option. Triglycerides 80 <150 mg/dL [facility] 07/11/2021 10:2 8 AM EST us Oly Guerrero WAREHOUSE EXAMINER LAB BLOOD ORDERABLES Final Res ult [facility] [address] from Last 3 Months or Most Recently Relevant to Health Maintenance Insurance [id number] [employer] [employer] [address] [place] [phone] [place] [phone] Care Teams Medical Claims Specialist Relationship Specialty Start Date End Date Cynthia Marshall NP [address] [place] [phone] PCP - General Family Medicine 09/10/23
--- OUTSIDE RECORDS SUMMARY | 2024-10-20 18:19 | XMS_ITS | Clinical Summary ---
Author Organization [facility] Address [address] [place] [address] Care Team Providers Care Cradle Slide Maker Name Role Phone Unavailable Primary Care Provider Unavailabl e Surgical History Surgery Date Site/Laterality Comments SHOULDER SURGERY 06/18/07 PROCEDURE: HISTORICAL SHOULDER SURGERY; COMMENT: Rotator cuff- Dr. Adis King APPENDECTOMY PROCEDURE: HISTORICAL APPENDECTOMY COLONOSCOPY 12/28/2011 PROCEDURE: HISTORICAL COLONOSCOPY; COMMENT: normal UPPER GASTROINTESTINAL ENDOSCOPY 03/14/2016 PROCEDURE: CO UPPER GI ENDOSCOPY PERFORMED; COMMENT: Visually normal; [...]
[2024-10-20] MEDS: Morphine Sulfate 4 MG/ML CARTRIDGE IVPUSH (18:49)
[2024-10-20] MEDS: 0.9 % Sodium Chloride 500 ML IV (18:49)
[2024-10-20 20:31] LABS: Bilirubin Direct 0.5 mg/dL (0.0-0.5)
--- NOTE | 2024-10-20 20:55 | P.HPHOSP_ITS ---
History of Present Illness Date of Service: 10/20/24 Attending physician on admission: Alf Bo Chief Complaint: RUQ pain pt is a 73 yo male with a pmhx significant for HLD, HTN, a fib on eliquis, CKD4 baseline cr around 2.17, CHF/cardiomyopathy EF 35-40%, T2DM (no insulin), anemia of chronic disease, hyperparathyroidism, and OA, who presented to the ED due to RUQ pain starting this morning, he rates the pain an 8/10 currently, constant and sharp. no associated sx including nausea, vomiting, diarrhea or urinary sx. no headache, confusion, chest pain, SOB, fever, or chills. W/u in the ED significant for cholecytitis with normal AST/ALT, alk phos elevated at 126, t bili 1.7, CRP 13.33. Surgery was consulted who suggested medical admission with GI and surgery consultation and MRCP. Pt was given 500cc IVF and given morphine for pain management. Review of Systems 2 Constitutional: Constitutional: Denies chills, Denies fatigue, Denies fever(s) and Denies headache(s) Eyes: Eyes: Denies change in vision and Denies photophobia ENT: Denies headache(s), Denies nasal congestion, Denies nasal discharge and Denies sore throat Cardiovascular: Cardiovascular: Denies chest pain, Denies rapid heart rate, Denies leg edema, Denies lightheadedness and Denies dyspnea Respiratory: Respiratory: Denies chest congestion, Denies cough, Denies dyspnea and Denies wheezing Gastrointestinal: Gastrointestinal: Reports abdominal pain, Denies diarrhea, Denies nausea and Denies vomiting Genitourinary: Genitourinary: Denies difficulty urinating, Denies urinary frequency and Denies urinary urgency Musculoskeletal: Musculoskeletal: Denies myalgias Integumentary/Breasts: Skin/Breast: Denies rash Neurologic: Denies confusion and Denies headache(s) Psychiatric: Psychiatric: Denies confusion Endocrine: Endocrine: Denies fatigue Hematologic/Lymphatic: Hematologic/Lymphatic: Denies easy bleeding and Denies easy bruising Allergic/Immunologic: Allergic/Immunologic: Denies wheezing [facility] Medical History Hypertension Chronic atrial fibrillation CHF (congestive heart failure) CKD (chronic kidney disease) CKD (chronic kidney disease) Former smoker Depression Diabetes High cholesterol Functional capacity: independent ambulation Family History Father No problems noted. Mother Diabetes Hypertension Cancer Son No problems noted. Son No problems noted. Son No problems noted. Daughter No problems noted. Daughter No problems noted. Surgical History History of aneurysm History of shoulder surgery Social History Household Members: Spouse Household Members Other:: Housing: Apartment Do you presently have visiting nurse or other home services: No Alcohol intake: never Patient Tobacco Use Status: Never used Tobacco Smoked in Last 30 Days: No Use of substances other than those prescribed or required for medical reasons: No Advance Directives: No Advance Directives Information Provided: No Do you have a plan to hurt others: No Plan service: Yes Current occupational status: disabled Narrative: no smoking, etoh or drug use Meds Allergies Allergy/AdvReac Type Severity Reaction Status Date / Time No Known Allergies Allergy Verified 10/20/24 11:17 [No Known Allergies*] Home Medications ?Medication ?Instructions ?Recorded ?Confirmed ?Last Taken ?Type blood-glucose meter #1 ea 05/14/20 01/14/24 Unknown History lancets #100 ea 05/14/20 01/14/24 Unknown History amlodipine 10 mg tablet 10 mg PO DAILY 12/19/22 10/20/24 10/19/24 History atorvastatin 40 mg tablet 40 mg PO DAILY 12/19/22 10/20/24 10/19/24 History dapagliflozin propanediol 10 mg 10 mg PO DAILY 12/19/22 10/20/24 10/19/24 History tablet (Farxiga) potassium chloride 10 mEq 10 meq PO DAILY 12/19/22 10/20/24 10/19/24 History tablet,extended release apixaban 2.5 mg tablet (Eliquis) 2.5 mg PO BID 10/20/24 10/20/24 10/19/24 History Physical Exam 2 Vital Signs and Narrative: Vital Signs: Last Vital Signs Temp 97.6 F 10/20/24 17:49 Pulse 67 10/20/24 17:49 Resp 18 10/20/24 17:49 BP 166/79 H 10/20/24 17:49 Pulse Ox 96 10/20/24 17:49 O2 Del Method Room Air 10/20/24 17:49 BMI result Body Mass Index 30.1 General: AOx3, no acute distress Resp: CTA bilaterally CVS: S1, S2, RRR GI: +BS, tender UQ/epigastric region with palpation, no guarding, no distention Skin: Warm, dry Neuro: Cranial nerves II-XII grossly intact bilaterally. Motor grossly intact bilaterally Extremities: No LE edema Psych: Appropriate affect Const: General: No confusion Orientation/consciousness: No confusion Eyes: Direct Ophthalmoscopy: No photophobia Neuro: General: No confusion Results Labs 10/20/24 11:26 10/20/24 11:26 Labs: Laboratory Results - last 24 hr 10/20/24 10/20/24 11:26 11:30 MCV 84.7 MCH 28.9 MCHC 34.1 RDW 14.3 Plt Count 191 MPV 8.9 L Immature Gran % (Auto) 0.4 Neut % (Auto) 78.7 H Lymph % (Auto) 11.5 L [place] % (Auto) 8.8 Eos % (Auto) 0.3 Baso % (Auto) 0.3 Lymph # (Auto) 1.2 [place] # (Auto) 0.9 Eos # (Auto) 0.0 Baso # (Auto) 0.0 Abs Immat Gran (auto) 0.04 H Absolute Neuts (auto) 8.0 Absolute Nucleated RBC 0.000 Nucleated RBC % (auto) 0.0 ESR 45 H Anion Gap 13 Estim Creat Clear Calc 30.9 Estimated GFR 27 Random Glucose 125 H Calcium 9.5 Magnesium 2.0 Total Bilirubin 1.7 H Direct Bilirubin 0.5 AST 22 ALT 11 Alkaline Phosphatase 126 H C-Reactive Protein 13.33 H Total Protein 8.3 H Albumin 3.8 Lipase 16 Urine Color Yellow Urine Appearance Clear Urine pH 5.5 Ur Specific [place] 1.020 Urine Protein 300 (3+) H Urine Glucose (UA) >=1000 H Urine Ketones Negative Urine Blood Trace H Urine Nitrite Negative Ur Leukocyte Esterase Negative Urine RBC 0-2 Urine WBC 0-5 Ur Squamous Epith Cells 0-2 Urine Bacteria None Seen Hyaline Casts 3-5 Granular Casts Present Assessment and Plan (1) Calculous cholecystitis: Status: Acute (2) Acute kidney injury superimposed on stage 4 chronic kidney disease: Status: Acute (3) Obesity (BMI 30.0-34.9): Status: Acute Plan pt is a 73 yo male with a pmhx significant for HLD, HTN, a fib on eliquis, CKD4 baseline cr around 2.17, CHF/cardiomyopathy EF 35-40%, T2DM (no insulin), anemia of chronic disease, hyperparathyroidism, and OA, who presented to the ED due to RUQ pain starting this morning, he rates the pain an 8/10 currently, constant and sharp. W/u in the ED significant for cholecytitis with normal AST/ALT, alk phos elevated at 126, t bili 1.7, CRP 13.33. Surgery was consulted who suggested medical admission with GI and surgery consultation and MRCP. Pt was given 500cc IVF and given morphine for pain management. acute cholecyctitis - WBC normal, vitals stable, no sepsis - LFTs normal, alk phos 126, t bili 1.7, CRP 13.33 - A/P CT with acute cholecystitis - right upper quadrant ultrasound confirmed cholelithiasis and sludge in the gallbladder mild gall bladder wall thickening correlated with acute cholecystitis. Common bile duct is not dilated. - NPO - MRCP - start ceftraixone and flagyl - GI and surgery consult - pre-op evaluation: high risk due to multiple comorbidities including age, unless lap esau. RCRI score 3 - follow CBC and CMP mild KELSEY on CKD - cr 2.38 - given 500cc NS in ED, refrain from further fluids due to CHF - monitor creatinine a fib - EKG with a fib, rate controlled - hold eliquis due to possible surgery, resume when appropriate HLD - continue statin HTN - continue lisinopril and amlodipine, hold chlorthalidone due to mild KELSEY CHF/cardiomyopathy - hold farxiga due to mild KELSEY T2DM - sliding scale insulin - POC Q6H - hold farxiga as above anemia of chronic disease - H+H normal, 16.8/49.3 - moniotr CBC - continue iron hyperparathyroid - continue calcitrol full code VTE prophy: pneumoboots, resume eliquis when appropriate Pt with acute calculus cholecystitis, requiring admission for IV abx and GI/surgical consultation. Quality Stroke Does the patient have a stroke diagnosis?: No VTE Prior VTE?: No VTE Risk Level:: Medical - moderate - high VTE Device Contraindication: N/A - Device Ordered VTE Drug Contraindication: Treatment Not Indicated
[2024-10-20 21:01] VITALS: BP 176/84; PULSE 62; RESP 18; TEMP 36.4; O2SAT 96
--- NOTE | 2024-10-20 21:15 | PHA.MEDREC ---
Addendum entered by Oly Grant [facility] 10/20/24 22:15: [facility] REVIEWED, SPOKE WITH PROVIDER ABOUT MED REC Addendum entered by Radha Robertson 10/20/24 22:04: I went back and spoke with the patient to see if he got confused when he stated he stopped the Lisinopril and meant to say Amlodipine since in claims the Amlodipine was filled 06/17 for 90 days and Lisinopril was filled 08/14 for 90 days indicating it may have changed and when speaking with the patient he stated that may have changed recently, but my Dr has me on so much I do not really remember; I switched and added Lisinopril and took off the Amlodipine. Original Note: Pharmacy Consult ? Medication Reconciliation Pharmacy has completed the medication reconciliation. Spoke with patient and he confirmed his medications. Patient confirmed he was still taking Eliquis twice a day but did not remember the dose of the medication and when I asked where he was filling it, since in claims we last filled the Eliquis 2.5mg tab on 02/14 for 90 days, and the patient stated he is filling it at [facility]. He confirmed he is still taking the Farxiga once a day and states he is still filling that at [facility] pharmacy; looking in claims he has not filled that since April 10 for 90 days. He states his Dr stopped the Lisinopril 40mg tab about 1 month ago. He confirmed he is taking the Calcitriol 0.25mcg tab once every other day and confirmed he took that last yesterday along with all of his other medications.
[2024-10-20 21:55] LABS: Glucose, Whole Blood 154 mg/dL (60-115)
[2024-10-20] MEDS: cefTRIAXone sodium 1 GM VIAL IVPUSH (22:27)
[2024-10-20] MEDS: Ferrous Sulfate 324 MG TABLET.DR PO (22:27)
[2024-10-20] MEDS: metroNIDAZOLE/NS 500 MG/100 ML PIGGYBACK 100 MG IV (22:27)
--- NOTE | 2024-10-20 23:15 | PC.NURSE ---
pt reports 5/10 RUQ abd pain, refusing meds at this time states it is tolerable. nad.
[2024-10-21 03:54] LABS: Glucose, Whole Blood 91 mg/dL (60-115)
[2024-10-21 04:00] VITALS: BP 169/90; PULSE 76; RESP 18; TEMP 36.6; O2SAT 95
--- NOTE | 2024-10-21 04:13 | PC.NURSE ---
Addendum entered by Reyna Malloy 10/21/24 04:14: per pain level prn to be given is dilaudid, pt requesting something less and would like for provider to be notified. Original Note: pt woke up reporting 8/10 abd pain, requesting medication at this time.
[2024-10-21] MEDS: Acetaminophen 1,000 MG/100 ML PIGGYBACK 400 MG IV (04:31)
[2024-10-21 05:12] LABS: MANUAL DIFF FLAG NO
[2024-10-21 05:14] LABS: Basophils Percent Auto 0.2 % (0-2); Eosinophils Absolute Auto 0.1 X10*3/uL (0.0-0.4); Eosinophils Percent Auto 0.7 % (0-4); Hematocrit 44.5 % (42.0-52.0); Hemoglobin 15.1 g/dl (14.0-18.0); Imm Gran Abs Auto 0.03 X10*3/uL (0.00-0.03); Imm Gran Pct Auto 0.3 % (0.0-0.4); Lymphocytes Absolute Auto 1.2 X10*3/uL (1.2-4.9); Lymphocytes Percent Auto 12.9 % (20-40); Mean Corpuscular HGB Conc 33.9 g/dl (31.0-36.0); Mean Corpuscular Hemoglobin 28.7 pg (27.0-33.0); Mean Corpuscular Volume 84.6 fL (80.0-98.0); Mean Platelet Volume 9.1 fL (9.4-12.4); Monocytes Absolute Auto 0.9 X10*3/uL (0.1-1.2); Monocytes Percent Auto 9.5 % (2-11); Neutrophils Percent Auto 76.4 % (45-73); Platelet Count 186 X10*3/uL (160-400); Red Blood Count 5.26 X10*6/uL (4.60-5.80); Red Cell Distribution Width 14.1 % (11.0-16.0); White Blood Count 9.1 X10*3/uL (4.8-10.8)
[2024-10-21] MEDS: metroNIDAZOLE/NS 500 MG/100 ML PIGGYBACK 100 MG IV ×3 (05:21→21:32)
[2024-10-21 05:34] LABS: Alanine Aminotransferase 12 U/L (0-40); Albumin Level 3.5 g/dL (3.5-5.0); Alkaline Phosphatase 124 U/L (39-117); Anion Gap 15 (12-20); Aspartate Amino Transferase 23 U/L (5-37); Bilirubin Total 1.3 mg/dL (0.0-1.0); Blood Urea Nitrogen 50 mg/dL (9-16); Calcium 8.8 mg/dL (8.4-10.2); Carbon Dioxide 22 mmol/L (22-29); Chloride 105 mmol/L (96-108); Creatinine Clr Calc Pharmacy 31.4; Estimated Glomerular Filt Rate 28; Glucose Random 106 mg/dL (60-115); Potassium 3.2 mmol/L (3.3-5.1); Sodium 139 mmol/L (135-145); Total Protein 7.5 g/dL (6.5-8.0)
[2024-10-21 06:30] LABS: Estimated Average Glucose 123 mg/dL; Hemoglobin A1C 179.3343 umol/L; Hemoglobin A1c % 5.9 % (<6.0); Total Hemoglobin (HGBA1C) 4344.1616 umol/L
--- NOTE | 2024-10-21 08:04 | P.PNIM_ITS ---
Subjective Subjective Date of Service: 10/21/24 Interval History: f/u on acute cholecystitis interval history: still has some pain in epig, ruq Physical Exam 2 Vital Signs: Vital Signs: Last Vital Signs Temp 97.9 F 10/21/24 04:00 Pulse 76 10/21/24 04:00 Resp 18 10/21/24 04:00 BP 169/90 H 10/21/24 04:00 Pulse Ox 95 10/21/24 04:00 O2 Del Method Room Air 10/21/24 04:00 BMI result Body Mass Index 30.1 Const: Other: General: AO X 3, no acute distress Resp: CTA bilateral CVS: S1,S2,RRR GI: +BS, epig/ruq tenderness, no distention Skin: No rash Neuro: motor grossly intact Psych: appropriate affect Objective Data Active Medications Acetaminophen (Acetaminophen 325 Mg Tablet) 975 mg PO Q6H PRN PRN Reason: Pain, Mild 1-3,fever,headache Atorvastatin Calcium (Atorvastatin Calcium 40 Mg Tablet) 40 mg PO DAILY [facility] Calcitriol (Calcitriol 0.25 Mcg Capsule) 0.25 mcg PO Q2D@0900 [facility] Calcium Carbonate (Calcium Carbonate 750 Mg Tab.Chew) 750 mg PO Q4H PRN PRN Reason: Heartburn Ceftriaxone Sodium (Ceftriaxone Sodium 1 Gm Vial) 1 gm IVPUSH Q24H [facility] Last Admin: 10/20/24 22:27 Dose: 1 gm Documented By: MELIDA Dextrose (Dextrose 50 % 25 Gm/50 Ml Syringe) 25 gm IVPUSH Q15M PRN; Protocol PRN Reason: per Hypoglycemia Standing Ord. Ferrous Sulfate (Ferrous Sulfate 324 Mg Jeanette.) 324 mg PO BID [facility] Last Admin: 10/20/24 22:27 Dose: 324 mg Documented By: MELIDA Glucose (Glucose Gel 15 Gm Gel..Gram.) 15 gm PO Q15M PRN; Protocol PRN Reason: per Hypoglycemia Standing Ord. Hydromorphone HCl (Hydromorphone Hcl 1 Mg/Ml Syringe) 0.5 mg IVPUSH Q4H PRN; Protocol PRN Reason: Pain, Severe (Pain Scale 7-10) Metronidazole (Flagyl) 500 mg in 100 mls @ 100 mls/hr IV Q8H [facility] Last Infusion: 10/21/24 06:25 Dose: Infused Documented By: MELIDA Lisinopril (Lisinopril 40 Mg Tablet) 40 mg PO DAILY [facility]; Protocol Magnesium Hydroxide (Milk Of Magnesia 30 Ml Oral.Susp) 30 ml PO DAILY PRN PRN Reason: Constipation Melatonin (Melatonin 3 Mg Tablet) 6 mg PO BEDTIME PRN PRN Reason: Insomnia Morphine Sulfate (Morphine Sulfate 4 Mg/Ml Cartridge) 2 mg IVPUSH Q6H PRN; Protocol PRN Reason: Pain, Moderate(Pain Scale 4-6) Ondansetron HCl (Ondansetron Hcl 4 Mg/2 Ml Vial) 4 mg IVPUSH Q8H PRN PRN Reason: Nausea and Vomiting Sodium Chloride (0.9 % Sodium Chloride Flush 3 Ml Syringe) 3 ml IVFLUSH QSHIFT [facility] Last Admin: 10/21/24 00:10 Dose: Not Given Documented By: MELIDA Non-Admin Reason: Previously Administered Labs 10/21/24 04:56 10/21/24 04:56 Labs: Laboratory Results - last 24 hr 10/20/24 10/20/24 10/20/24 11:26 11:30 21:51 MCV 84.7 MCH 28.9 MCHC 34.1 RDW 14.3 Plt Count 191 MPV 8.9 L Immature Gran % (Auto) 0.4 Neut % (Auto) 78.7 H Lymph % (Auto) 11.5 L [place] % (Auto) 8.8 Eos % (Auto) 0.3 Baso % (Auto) 0.3 Lymph # (Auto) 1.2 [place] # (Auto) 0.9 Eos # (Auto) 0.0 Baso # (Auto) 0.0 Abs Immat Gran (auto) 0.04 H Absolute Neuts (auto) 8.0 Absolute Nucleated RBC 0.000 Nucleated RBC % (auto) 0.0 ESR 45 H Anion Gap 13 Estim Creat Clear Calc 30.9 Estimated GFR 27 POC Glucose 154 H Random Glucose 125 H Estimat Average Glucose 123 Hemoglobin A1c % 5.9 Calcium 9.5 Magnesium 2.0 Total Bilirubin 1.7 H Direct Bilirubin 0.5 AST 22 ALT 11 Alkaline Phosphatase 126 H C-Reactive Protein 13.33 H Total Protein 8.3 H Albumin 3.8 Lipase 16 Urine Color Yellow Urine Appearance Clear Urine pH 5.5 Ur Specific [place] 1.020 Urine Protein 300 (3+) H Urine Glucose (UA) >=1000 H Urine Ketones Negative Urine Blood Trace H Urine Nitrite Negative Ur Leukocyte Esterase Negative Urine RBC 0-2 Urine WBC 0-5 Ur Squamous Epith Cells 0-2 Urine Bacteria None Seen Hyaline Casts 3-5 Granular Casts Present 10/21/24 10/21/24 03:50 04:56 MCV 84.6 MCH 28.7 MCHC 33.9 RDW 14.1 Plt Count 186 MPV 9.1 L Immature Gran % (Auto) 0.3 Neut % (Auto) 76.4 H Lymph % (Auto) 12.9 L [place] % (Auto) 9.5 Eos % (Auto) 0.7 Baso % (Auto) 0.2 Lymph # (Auto) 1.2 [place] # (Auto) 0.9 Eos # (Auto) 0.1 Baso # (Auto) 0.0 Abs Immat Gran (auto) 0.03 Absolute Neuts (auto) 7.0 Absolute Nucleated RBC 0.000 Nucleated RBC % (auto) 0.0 ESR Anion Gap 15 Estim Creat Clear Calc 31.4 Estimated GFR 28 POC Glucose 91 Random Glucose 106 Estimat Average Glucose Hemoglobin A1c % Calcium 8.8 D Magnesium Total Bilirubin 1.3 H Direct Bilirubin AST 23 ALT 12 Alkaline Phosphatase 124 H C-Reactive Protein Total Protein 7.5 Albumin 3.5 Lipase Urine Color Urine Appearance Urine pH Ur Specific [place] Urine Protein Urine Glucose (UA) Urine Ketones Urine Blood Urine Nitrite Ur Leukocyte Esterase Urine RBC Urine WBC Ur Squamous Epith Cells Urine Bacteria Hyaline Casts Granular Casts Assessment and Plan (1) Calculous cholecystitis: Status: Acute (2) CKD (chronic kidney disease): Status: Acute (3) Hypertension: Status: Acute (4) Cardiomyopathy: Status: Acute (5) CHF (congestive heart failure): Status: Acute Plan pt is a 73 yo male with a pmhx significant for HLD, HTN, a fib on eliquis, CKD4 baseline cr around 2.17, CHF/cardiomyopathy EF 35-40%, T2DM (no insulin), anemia of chronic disease, hyperparathyroidism, and OA, who presented to the ED due to RUQ pain starting this morning, he rates the pain an 8/10 currently, constant and sharp. W/u in the ED significant for cholecytitis with normal AST/ALT, alk phos elevated at 126, t bili 1.7, CRP 13.33. acute cholecyctitis on CT, no sepsis continue Ceftriaxone Monitor LFTs GI/Surgery consults MRCP NPO mild KELSEY on CKD 3 IVF, monitor BMP, avoid nephrotoxins chronic a fib rate controledd HLD hold statin HTN continue lisinopril and amlodipine hold chlorthalidone due to mild KELSEY CHF/cardiomyopathy hold farxiga due to mild KELSEY T2DM sliding scale insulin POC Q6H hold farxiga as above anemia of chronic disease H+H normal, 16.8/49.3 moniotr CBC continue iron hyperparathyroid continue calcitrol full code VTE prophy: pneumoboots, resume eliquis when appropriate Pt with acute calculus cholecystitis, requiring admission for IV abx and GI/surgical consultation. Quality Stroke Does the patient have a stroke diagnosis?: No VTE Prior VTE?: No VTE Risk Level:: Medical - moderate - high VTE Device Contraindication: N/A - Device Ordered VTE Drug Contraindication: Treatment Not Indicated
--- NOTE | 2024-10-21 08:07 | PC.NURSE ---
Pt changed into hospital clothing, jewelry removed for MRI. MRI screening form done and faxed. pt updated on plan of care. Remains NPO- reports he last ate 10/19 at some time.
[2024-10-21 09:13] VITALS: BP 168/80; PULSE 58; RESP 16; TEMP 36.4; O2SAT 95
[2024-10-21] MEDS: Ferrous Sulfate 324 MG TABLET.DR PO ×2 (09:15→21:32)
[2024-10-21] MEDS: lisinopriL 40 MG TABLET PO (09:15)
[2024-10-21] MEDS: calcitrioL 0.25 MCG CAPSULE PO (09:15)
[2024-10-21 09:39] LABS: Glucose, Whole Blood 102 mg/dL (60-115)
[2024-10-21 10:05] LABS: Glucose, Whole Blood 115 mg/dL (60-115)
--- NOTE | 2024-10-21 10:09 | PC.NURSE ---
Resting queitly. NAD. c/o RLQ pain. awaits MRCP and is aware that plan of care is pending results of MRCP. skin PWD./ abd soft non tender.
[2024-10-21] MEDS: Lactated Ringers 1,000 ML 125 ML IVCONT ×2 (10:12→17:16)
--- NOTE | 2024-10-21 10:26 | PM.GICN ---
History of Present Illness Data of Consult Service Date: 10/21/24 Primary Care Provider: Blanca Anderson MD HPI Reason for consult: cholecystitis 73 yo male with a hx of HLD, HTN, a fib on eliquis, CKD4 baseline cr around 2.17, CHF/cardiomyopathy EF 35-40%, T2DM (no insulin), anemia of chronic disease, hyperparathyroidism, and OA, who I am seeing for cholecystitis Patient was admitted initially with sudden worsening 8/10 RUQ pain 1-2 d ago. The pain was non radiating and constant with sharp feeling. There were no releiving or exacerbating factors. He denies nausea, vomiting, diarrhea or urinary sx. no headache, confusion, chest pain, SOB, fever, or chills. Imaging revealed a nml CBD but large stone in GB nech with stranding around GB fossa. Labs with mild elevated bili and alk phos. He feesl improved right now and feels hungry as well. Denies dark urine or rambo stools Review of Systems Review of Systems: Constitutional : No Weight loss, No Fever, No Chills ENT/Mouth : No sore throat, No Rhinorrhea Eyes: No Swelling, No Redness Cardiovascular : No Chest Pain, No SOB, No Edema Respiratory : No Cough, No Sputum, No Wheezing Gastrointestinal : see HPI Genitourinary : NO Dysuria, No Urinary Frequency, No Hematuria, No Urgency Musculoskeletal : + joint pain, No Myalgias, No Joint Swelling Skin : No Skin Lesions, No rash Neuro : No Weakness, No Numbness, No Dizziness, No Headache Psych : No Anxiety/Panic, No Depression Heme/Lymph: No Bruising, No Lymphadenopathy Endocrine : No Polyuria, No Polydipsia All other systems reviewed and are negative. [facility] Past Medical History Medical History Hypertension Chronic atrial fibrillation CHF (congestive heart failure) CKD (chronic kidney disease) CKD (chronic kidney disease) Former smoker Depression Diabetes High cholesterol Family History Family History Father No problems noted. Mother Diabetes Hypertension Cancer Son No problems noted. Son No problems noted. Son No problems noted. Daughter No problems noted. Daughter No problems noted. Surgical History Surgical History History of aneurysm History of shoulder surgery Social History Social History Household Members: Spouse Household Members Other:: Housing: Apartment Do you presently have visiting nurse or other home services: No Alcohol intake: never Patient Tobacco Use Status: Never used Tobacco Smoked in Last 30 Days: No Use of substances other than those prescribed or required for medical reasons: No Advance Directives: No Advance Directives Information Provided: No Do you have a plan to hurt others: No Plan Nutrition Risks: No Nutritional Risk service: Yes Current occupational status: disabled Meds Allergies Allergy/AdvReac Type Severity Reaction Status Date / Time No Known Allergies Allergy Verified 10/20/24 11:17 [No Known Allergies*] Active Medications: Current Medications Acetaminophen (Acetaminophen 325 Mg Tablet) 975 mg PO Q6H PRN PRN Reason: Pain, Mild 1-3,fever,headache Calcitriol (Calcitriol 0.25 Mcg Capsule) 0.25 mcg PO Q2D@0900 [facility] Last Admin: 10/21/24 09:15 Dose: 0.25 mcg Calcium Carbonate (Calcium Carbonate 750 Mg Tab.Chew) 750 mg PO Q4H PRN PRN Reason: Heartburn Ceftriaxone Sodium (Ceftriaxone Sodium 1 Gm Vial) 1 gm IVPUSH Q24H [facility] Last Admin: 10/20/24 22:27 Dose: 1 gm Dextrose (Dextrose 50 % 25 Gm/50 Ml Syringe) 25 gm IVPUSH Q15M PRN; Protocol PRN Reason: per Hypoglycemia Standing Ord. Ferrous Sulfate (Ferrous Sulfate 324 Mg Tablet.Dr) 324 mg PO BID [facility] Last Admin: 10/21/24 09:15 Dose: 324 mg Glucose (Glucose Gel 15 Gm Gel..Gram.) 15 gm PO Q15M PRN; Protocol PRN Reason: per Hypoglycemia Standing Ord. Hydromorphone HCl (Hydromorphone Hcl 1 Mg/Ml Syringe) 0.5 mg IVPUSH Q4H PRN; Protocol PRN Reason: Pain, Severe (Pain Scale 7-10) Metronidazole (Flagyl) 500 mg in 100 mls @ 100 mls/hr IV Q8H [facility] Last Infusion: 10/21/24 06:25 Dose: Infused Lactated Ringer's (Lr) 1,000 mls @ 125 mls/hr IVCONT .Q8H [facility] Last Admin: 10/21/24 10:12 Dose: 125 mls/hr Lisinopril (Lisinopril 40 Mg Tablet) 40 mg PO DAILY [facility]; Protocol Last Admin: 10/21/24 09:15 Dose: 40 mg Magnesium Hydroxide (Milk Of Magnesia 30 Ml Oral.Susp) 30 ml PO DAILY PRN PRN Reason: Constipation Melatonin (Melatonin 3 Mg Tablet) 6 mg PO BEDTIME PRN PRN Reason: Insomnia Morphine Sulfate (Morphine Sulfate 4 Mg/Ml Cartridge) 2 mg IVPUSH Q6H PRN; Protocol PRN Reason: Pain, Moderate(Pain Scale 4-6) Ondansetron HCl (Ondansetron Hcl 4 Mg/2 Ml Vial) 4 mg IVPUSH Q8H PRN PRN Reason: Nausea and Vomiting Sodium Chloride (0.9 % Sodium Chloride Flush 3 Ml Syringe) 3 ml IVFLUSH QSHIFT [facility] Last Admin: 10/21/24 09:15 Dose: Not Given Home Medications ?Medication ?Instructions ?Recorded ?Confirmed ?Last Taken ?Type blood-glucose meter #1 ea 05/14/20 01/14/24 Unknown History lancets #100 ea 05/14/20 01/14/24 Unknown History atorvastatin 40 mg tablet 40 mg PO DAILY 12/19/22 10/20/24 10/19/24 History dapagliflozin propanediol 10 mg 10 mg PO DAILY 12/19/22 10/20/24 10/19/24 History tablet (Farxiga) apixaban 2.5 mg tablet (Eliquis) 2.5 mg PO BID 10/20/24 10/20/24 10/19/24 History lisinopril 40 mg tablet 40 mg PO DAILY 10/20/24 10/20/24 10/19/24 History Physical Exam Vital Signs: Vital Signs: Last Vital Signs Temp 97.6 F 10/21/24 09:13 Pulse 58 10/21/24 09:13 Resp 16 10/21/24 09:13 BP 168/80 H 10/21/24 09:13 Pulse Ox 95 10/21/24 09:13 O2 Del Method Room Air 10/21/24 09:13 BMI result Body Mass Index 30.1 EXAM: GENERAL: The patient is well developed and nontoxic. VITAL SIGNS:see workflow HEENT: Nonicteric sclerae, PERRLA, EOMI. Oropharynx clear. Moist mucous membranes. Conjunctivae appear well perfused. No thyroid mass. CHEST: Chest wall is nontender. HEART: Regular rate and rhythm without murmurs. LUNGS: Clear to auscultation bilaterally. ABDOMEN: Soft, positive bowel sounds, tender RUQ, no organomegaly.no flank tenderness SKIN: No rash, no excessive bruising, petechiae, or purpura. NEUROLOGIC: Cranial nerves II-XII intact without motor/sensory deficit. Psych: normal affect Results Labs 10/21/24 04:56 10/21/24 04:56 Labs: Short CBC 10/20/24 10/21/24 Range/Units 11:26 04:56 WBC 10.2 9.1 (4.8-10.8) X10*3/uL Hgb 16.8 15.1 (14.0-18.0) g/dl Hct 49.3 44.5 (42.0-52.0) % Plt Count 191 186 (160-400) X10*3/uL BMP 10/20/24 10/21/24 11:26 04:56 Sodium 141 139 Potassium 3.3 3.2 L Chloride 104 105 Carbon Dioxide 27 22 BUN 50 H 50 H Creatinine 2.38 H 2.31 H Calcium 9.5 8.8 D Liver Function 10/20/24 10/21/24 Range/Units 11:26 04:56 Total Bilirubin 1.7 H 1.3 H (0.0-1.0) mg/dL Direct Bilirubin 0.5 (0.0-0.5) mg/dL AST 22 23 (5-37) U/L ALT 11 12 (0-40) U/L Alkaline Phosphatase 126 H 124 H (39-117) U/L Albumin 3.8 3.5 (3.5-5.0) g/dL Urine 10/20/24 Range/Units 11:30 Urine Color Yellow Urine Appearance Clear Urine pH 5.5 (5.0-9.0) Ur Specific [place] 1.020 (1.005-1.025) Urine Protein 300 (3+) H (Neg-Trace) mg/dL Urine Glucose (UA) >=1000 H (Negative) mg/dL Imaging CT scan - abdomen: Attestation: I personally reviewed and interpreted this imaging study as follows: (GB swelling,stranding and stone noted. atherosclerosis and constipation ) Assessment and Plan (1) Calculous cholecystitis: Status: Acute Plan 1/ Acute cholecystitis, no evidence of CBD obstruction and cholangitis at this time PLAN: 1/ Cont with ABX 2/ Surgery referral for assessment for cholecystectomy Procedures Date of Service Date of Service: 10/21/24
--- NOTE | 2024-10-21 12:21 | P.CONGS_ITS ---
History of Present Illness Consult details Consult date: 10/21/24 Narrative: Patient was a very pleasant 74-year-old male who presents here with a 1 of 2 history of progressively worsening right upper quadrant/at upper abdominal pain radiating around to his back. He has never had this before. Because of the significant progression of symptoms, he presents to the emergency department where he had workup with radiograph findings consistent with acute cholecystitis. Patient otherwise tolerating his diet. He has regular bowel habits. He has never been jaundiced before. Chart was reviewed and patient evaluated. Patient was collection of comorbidities. He is also on Eliquis. He is unsure what he thinks his last dose was 1 or 2 days ago. The patient had elevation of his bilirubin (1.7) and was seen by GI and an MRCP has been ordered. [facility] Past Medical History Medical History Hypertension Chronic atrial fibrillation CHF (congestive heart failure) CKD (chronic kidney disease) CKD (chronic kidney disease) Former smoker Depression Diabetes High cholesterol Family History Family History Father No problems noted. Mother Diabetes Hypertension Cancer Son No problems noted. Son No problems noted. Son No problems noted. Daughter No problems noted. Daughter No problems noted. Surgical History Surgical History History of aneurysm History of shoulder surgery Social History Social History Household Members: Spouse Household Members Other:: Housing: Apartment Do you presently have visiting nurse or other home services: No Alcohol intake: never Patient Tobacco Use Status: Never used Tobacco Smoked in Last 30 Days: No Use of substances other than those prescribed or required for medical reasons: No Advance Directives: No Advance Directives Information Provided: No Do you have a plan to hurt others: No Plan Nutrition Risks: No Nutritional Risk service: Yes Current occupational status: disabled Meds Allergies Allergy/AdvReac Type Severity Reaction Status Date / Time No Known Allergies Allergy Verified 10/20/24 11:17 [No Known Allergies*] Active Medications: Current Medications Acetaminophen (Acetaminophen 325 Mg Tablet) 975 mg PO Q6H PRN PRN Reason: Pain, Mild 1-3,fever,headache Calcitriol (Calcitriol 0.25 Mcg Capsule) 0.25 mcg PO Q2D@0900 [facility] Last Admin: 10/21/24 09:15 Dose: 0.25 mcg Calcium Carbonate (Calcium Carbonate 750 Mg Tab.Chew) 750 mg PO Q4H PRN PRN Reason: Heartburn Ceftriaxone Sodium (Ceftriaxone Sodium 1 Gm Vial) 1 gm IVPUSH Q24H [facility] Last Admin: 10/20/24 22:27 Dose: 1 gm Dextrose (Dextrose 50 % 25 Gm/50 Ml Syringe) 25 gm IVPUSH Q15M PRN; Protocol PRN Reason: per Hypoglycemia Standing Ord. Ferrous Sulfate (Ferrous Sulfate 324 Mg Tablet.Dr) 324 mg PO BID [facility] Last Admin: 10/21/24 09:15 Dose: 324 mg Glucose (Glucose Gel 15 Gm Gel..Gram.) 15 gm PO Q15M PRN; Protocol PRN Reason: per Hypoglycemia Standing Ord. Hydromorphone HCl (Hydromorphone Hcl 1 Mg/Ml Syringe) 0.5 mg IVPUSH Q4H PRN; Protocol PRN Reason: Pain, Severe (Pain Scale 7-10) Metronidazole (Flagyl) 500 mg in 100 mls @ 100 mls/hr IV Q8H [facility] Last Infusion: 10/21/24 06:25 Dose: Infused Lactated Ringer's (Lr) 1,000 mls @ 125 mls/hr IVCONT .Q8H [facility] Last Admin: 10/21/24 10:12 Dose: 125 mls/hr Lisinopril (Lisinopril 40 Mg Tablet) 40 mg PO DAILY [facility]; Protocol Last Admin: 10/21/24 09:15 Dose: 40 mg Magnesium Hydroxide (Milk Of Magnesia 30 Ml Oral.Susp) 30 ml PO DAILY PRN PRN Reason: Constipation Melatonin (Melatonin 3 Mg Tablet) 6 mg PO BEDTIME PRN PRN Reason: Insomnia Morphine Sulfate (Morphine Sulfate 4 Mg/Ml Cartridge) 2 mg IVPUSH Q6H PRN; Protocol PRN Reason: Pain, Moderate(Pain Scale 4-6) Ondansetron HCl (Ondansetron Hcl 4 Mg/2 Ml Vial) 4 mg IVPUSH Q8H PRN PRN Reason: Nausea and Vomiting Sodium Chloride (0.9 % Sodium Chloride Flush 3 Ml Syringe) 3 ml IVFLUSH QSHIFT [facility] Last Admin: 10/21/24 09:15 Dose: Not Given Home Medications ?Medication ?Instructions ?Recorded ?Confirmed ?Last Taken ?Type blood-glucose meter #1 ea 05/14/20 01/14/24 Unknown History lancets #100 ea 05/14/20 01/14/24 Unknown History atorvastatin 40 mg tablet 40 mg PO DAILY 12/19/22 10/20/24 10/19/24 History dapagliflozin propanediol 10 mg 10 mg PO DAILY 12/19/22 10/20/24 10/19/24 History tablet (Farxiga) apixaban 2.5 mg tablet (Eliquis) 2.5 mg PO BID 10/20/24 10/20/24 10/19/24 History lisinopril 40 mg tablet 40 mg PO DAILY 10/20/24 10/20/24 10/19/24 History Physical Exam 2 Vital Signs: Vital Signs: Last Vital Signs Temp 97.6 F 10/21/24 09:13 Pulse 58 10/21/24 09:13 Resp 16 10/21/24 09:13 BP 168/80 H 10/21/24 09:13 Pulse Ox 95 10/21/24 09:13 O2 Del Method Room Air 10/21/24 09:13 BMI result Body Mass Index 30.1 Chest: Other: Chest breath sounds bilaterally, HS 1 in 2 GI: Other: Abdomen moderately corpulent. Marked right upper quadrant tenderness and a positive Martinez's sign. Results Labs 10/21/24 04:56 10/21/24 04:56 Labs: Abnormal lab results 10/20/24 10/21/24 Range/Units 21:51 04:56 MPV 9.1 L (9.4-12.4) fL Neut % (Auto) 76.4 H (45-73) % Lymph % (Auto) 12.9 L (20-40) % Potassium 3.2 L (3.3-5.1) mmol/L BUN 50 H (9-16) mg/dL Creatinine 2.31 H (0.5-1.4) mg/dL POC Glucose 154 H (60-115) mg/dL Total Bilirubin 1.3 H (0.0-1.0) mg/dL Alkaline Phosphatase 124 H (39-117) U/L Short CBC 10/21/24 Range/Units 04:56 WBC 9.1 (4.8-10.8) X10*3/uL Hgb 15.1 (14.0-18.0) g/dl Hct 44.5 (42.0-52.0) % Plt Count 186 (160-400) X10*3/uL BMP 10/21/24 04:56 Sodium 139 Potassium 3.2 L Chloride 105 Carbon Dioxide 22 BUN 50 H Creatinine 2.31 H Calcium 8.8 D Liver Function 10/20/24 10/21/24 Range/Units 11:26 04:56 Total Bilirubin 1.3 H (0.0-1.0) mg/dL Direct Bilirubin 0.5 (0.0-0.5) mg/dL AST 23 (5-37) U/L ALT 12 (0-40) U/L Alkaline Phosphatase 124 H (39-117) U/L Albumin 3.5 (3.5-5.0) g/dL Urine 10/20/24 Range/Units 11:30 Urine Color Yellow Urine Appearance Clear Urine pH 5.5 (5.0-9.0) Ur Specific [place] 1.020 (1.005-1.025) Urine Protein 300 (3+) H (Neg-Trace) mg/dL Urine Glucose (UA) >=1000 H (Negative) mg/dL All other labs normal. Assessment and Plan (1) Acute cholecystitis due to biliary calculus: Status: Acute Plan 74-year-old male with acute cholecystitis and possible choledocholithiasis. On Eliquis. Current plan is hold Eliquis, IV antibiotics, await MRCP results and tentatively scheduled for possible laparoscopic cholecystectomy possible cholangiogram tentatively tomorrow again awaiting results of the above-mentioned MRCP scan. Procedures Date of Service Date of Service: 10/21/24
--- NOTE | 2024-10-21 12:24 | PC.NURSE ---
cleared for ice chips by Dr Smith. Ambulating in department w/o diff.
--- NOTE | 2024-10-21 13:08 | MHC.CM.PN ---
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 He lives alone. He does not have home health services. He said his dtr Esha is his HCP, but no form on chart and he declined to do one. PCP confirmed: Blanca Harmon. He may need assistance with transport home at [place]. DCP: home, self care. CM to follow for DC needs.
--- NOTE | 2024-10-21 14:25 | MHC.SHP ---
Pre-Procedural Eval Section A - 24 Hr Update-Section A only Date of Service: 10/22/24 The patient is an INPATIENT: Yes Changes since office visit: No Cold of Flu in the past 2 weeks, No New Medical Problems, No Changes in Medication and No Patient answered all questions Section B - Complete if H&P > 30 days Chief Complaint: cholecystitis, KELSEY on CKD Allergies: Allergies Allergy/AdvReac Type Severity Reaction Status Date / Time No Known Allergies Allergy Verified 10/20/24 11:17 [No Known Allergies*] Review of Systems Sugical H&P ROS: Negative: Constitution, Cardiovascular, Respiratory, Neurological, Psychiatric, Hem-Onc, Allergic/Immunologic, Gastrointestinal, Genitourinary, Musculoskeletal, Integumentary, Endocrine and Eyes/Ears/Nose/Throat Exam Surgical H&P Exam: Normal: HEENT, Normal: Heart, Normal: Lungs, Normal: Extremities, Normal: Abdomen, Normal: Skin and Normal: Neurological Plan I have reviewed the history and physical and performed a pertinent physical examination on my patient. No changes have occurred unless specified. Time Spent With Patient Time: Total time managing care of this patient today ____ minutes.
[2024-10-21 16:02] LABS: Glucose, Whole Blood 112 mg/dL (60-115)
[2024-10-21 16:49] VITALS: BP 148/78; PULSE 61; RESP 18; TEMP 36.2; O2SAT 97
[2024-10-21 18:08] LABS: Glucose, Whole Blood 98 mg/dL (60-115)
[2024-10-21 19:27] VITALS: BP 149/96; PULSE 66; RESP 18; TEMP 36.6; O2SAT 94
[2024-10-21 20:11] LABS: Glucose, Whole Blood 98 mg/dL (60-115)
[2024-10-21] MEDS: cefTRIAXone sodium 1 GM VIAL IVPUSH (21:32)
[2024-10-21 23:15] VITALS: BP 156/72; PULSE 73; RESP 16; TEMP 36.8; O2SAT 94
[2024-10-21 23:31] LABS: Glucose, Whole Blood 97 mg/dL (60-115)
[2024-10-22] VITALS (12 sets, daily range): BP systolic 111–187; BP diastolic 55–84; PULSE 61–77; RESP 16–18; TEMP 36–36.7; O2SAT 93–98
[2024-10-22] MEDS: Lactated Ringers 1,000 ML 125 ML IVCONT ×2 (02:29→16:45)
[2024-10-22] MEDS: metroNIDAZOLE/NS 500 MG/100 ML PIGGYBACK 100 MG IV ×2 (05:50→16:45)
[2024-10-22 06:07] LABS: Glucose, Whole Blood 111 mg/dL (60-115)
[2024-10-22 07:39] LABS: MANUAL DIFF FLAG NO
[2024-10-22 07:54] LABS: Basophils Percent Auto 0.1 % (0-2); Eosinophils Absolute Auto 0.1 X10*3/uL (0.0-0.4); Eosinophils Percent Auto 0.9 % (0-4); Hematocrit 48.6 % (42.0-52.0); Hemoglobin 16.4 g/dl (14.0-18.0); Imm Gran Abs Auto 0.03 X10*3/uL (0.00-0.03); Imm Gran Pct Auto 0.4 % (0.0-0.4); Lymphocytes Absolute Auto 0.9 X10*3/uL (1.2-4.9); Lymphocytes Percent Auto 11.3 % (20-40); Mean Corpuscular HGB Conc 33.7 g/dl (31.0-36.0); Mean Corpuscular Hemoglobin 28.5 pg (27.0-33.0); Mean Corpuscular Volume 84.4 fL (80.0-98.0); Mean Platelet Volume 9.2 fL (9.4-12.4); Monocytes Absolute Auto 0.7 X10*3/uL (0.1-1.2); Monocytes Percent Auto 8.6 % (2-11); Neutrophils Absolute Auto 5.9 x10*3/uL (2.0-8.3); Neutrophils Percent Auto 78.7 % (45-73); Platelet Count 199 X10*3/uL (160-400); Red Blood Count 5.76 X10*6/uL (4.60-5.80); White Blood Count 7.6 X10*3/uL (4.8-10.8)
[2024-10-22 08:18] LABS: Alanine Aminotransferase 11 U/L (0-40); Albumin Level 3.4 g/dL (3.5-5.0); Alkaline Phosphatase 126 U/L (39-117); Anion Gap 15 (12-20); Aspartate Amino Transferase 26 U/L (5-37); Bilirubin Total 1.1 mg/dL (0.0-1.0); Blood Urea Nitrogen 39 mg/dL (9-16); Calcium 9.5 mg/dL (8.4-10.2); Carbon Dioxide 24 mmol/L (22-29); Chloride 105 mmol/L (96-108); Creatinine Clr Calc Pharmacy 38.2; Estimated Glomerular Filt Rate 35; Glucose Random 87 mg/dL (60-115); Sodium 141 mmol/L (135-145); Total Protein 7.7 g/dL (6.5-8.0)
[2024-10-22] MEDS: lisinopriL 40 MG TABLET PO (09:00)
[2024-10-22] MEDS: HYDROmorphone HCl 1 MG/ML SYRINGE 0.5 MG IVPUSH (09:11)
--- NOTE | 2024-10-22 09:38 | P.PNIM_ITS ---
Subjective Subjective Date of Service: 10/22/24 Interval History: f/u on acute cholecystitis interval history: has mild pain, for surgery today Physical Exam 2 Vital Signs: Vital Signs: Last Vital Signs Temp 96.8 F 10/22/24 07:04 Pulse 67 10/22/24 07:04 Resp 17 10/22/24 07:04 BP 170/80 H 10/22/24 07:04 Pulse Ox 96 10/22/24 07:04 O2 Del Method Room Air 10/22/24 07:04 BMI result Body Mass Index 30.1 Const: Other: General: AO X 3, no acute distress Resp: CTA bilateral CVS: S1,S2,RRR GI: +BS, epig/ruq tenderness, no distention Skin: No rash Neuro: motor grossly intact Psych: appropriate affect Objective Data Active Medications Acetaminophen (Acetaminophen 325 Mg Tablet) 975 mg PO Q6H PRN PRN Reason: Pain, Mild 1-3,fever,headache Calcitriol (Calcitriol 0.25 Mcg Capsule) 0.25 mcg PO Q2D@0900 [facility] Last Admin: 10/21/24 09:15 Dose: 0.25 mcg Documented By: HOLDEN Calcium Carbonate (Calcium Carbonate 750 Mg Tab.Chew) 750 mg PO Q4H PRN PRN Reason: Heartburn Ceftriaxone Sodium (Ceftriaxone Sodium 1 Gm Vial) 1 gm IVPUSH Q24H [facility] Last Admin: 10/21/24 21:32 Dose: 1 gm Documented By: LUKE Dextrose (Dextrose 50 % 25 Gm/50 Ml Syringe) 25 gm IVPUSH Q15M PRN; Protocol PRN Reason: per Hypoglycemia Standing Ord. Ferrous Sulfate (Ferrous Sulfate 324 Mg Tablet.) 324 mg PO BID [facility] Last Admin: 10/22/24 09:01 Dose: Not Given Documented By: KEIRY Non-Admin Reason: NPO Glucose (Glucose Gel 15 Gm Gel..Gram.) 15 gm PO Q15M PRN; Protocol PRN Reason: per Hypoglycemia Standing Ord. Hydromorphone HCl (Hydromorphone Hcl 1 Mg/Ml Syringe) 0.5 mg IVPUSH Q4H PRN; Protocol PRN Reason: Pain, Severe (Pain Scale 7-10) Last Admin: 10/22/24 09:11 Dose: 0.5 mg Documented By: KEIRY Metronidazole (Flagyl) 500 mg in 100 mls @ 100 mls/hr IV Q8H [facility] Last Infusion: 10/22/24 06:50 Dose: Infused Documented By: KAUSHIK Lactated Ringer's (Lr) 1,000 mls @ 125 mls/hr IVCONT .Q8H [facility] Last Infusion: 10/22/24 06:58 Dose: 125 mls/hr Documented By: KAUSHIK Lisinopril (Lisinopril 40 Mg Tablet) 40 mg PO DAILY [facility]; Protocol Last Admin: 10/22/24 09:00 Dose: 40 mg Documented By: KEIRY Magnesium Hydroxide (Milk Of Magnesia 30 Ml Oral.Susp) 30 ml PO DAILY PRN PRN Reason: Constipation Melatonin (Melatonin 3 Mg Tablet) 6 mg PO BEDTIME PRN PRN Reason: Insomnia Morphine Sulfate (Morphine Sulfate 4 Mg/Ml Cartridge) 2 mg IVPUSH Q6H PRN; Protocol PRN Reason: Pain, Moderate(Pain Scale 4-6) Ondansetron HCl (Ondansetron Hcl 4 Mg/2 Ml Vial) 4 mg IVPUSH Q8H PRN PRN Reason: Nausea and Vomiting Sodium Chloride (0.9 % Sodium Chloride Flush 3 Ml Syringe) 3 ml IVFLUSH QSHIFT [facility] Last Admin: 10/22/24 09:01 Dose: Not Given Documented By: KEIRY Non-Admin Reason: IV Running Labs 10/22/24 06:52 10/22/24 06:52 Labs: Laboratory Results - last 24 hr 10/21/24 10/21/24 10/21/24 09:36 10:01 15:37 MCV MCH MCHC RDW Plt Count MPV Immature Gran % (Auto) Neut % (Auto) Lymph % (Auto) [place] % (Auto) Eos % (Auto) Baso % (Auto) Lymph # (Auto) [place] # (Auto) Eos # (Auto) Baso # (Auto) Abs Immat Gran (auto) Absolute Neuts (auto) Absolute Nucleated RBC Nucleated RBC % (auto) Anion Gap Estim Creat Clear Calc Estimated GFR POC Glucose 102 115 112 Random Glucose Calcium Total Bilirubin AST ALT Alkaline Phosphatase Total Protein Albumin 10/21/24 10/21/24 10/21/24 18:03 19:30 23:26 MCV MCH MCHC RDW Plt Count MPV Immature Gran % (Auto) Neut % (Auto) Lymph % (Auto) [place] % (Auto) Eos % (Auto) Baso % (Auto) Lymph # (Auto) [place] # (Auto) Eos # (Auto) Baso # (Auto) Abs Immat Gran (auto) Absolute Neuts (auto) Absolute Nucleated RBC Nucleated RBC % (auto) Anion Gap Estim Creat Clear Calc Estimated GFR POC Glucose 98 98 97 Random Glucose Calcium Total Bilirubin AST ALT Alkaline Phosphatase Total Protein Albumin 10/22/24 10/22/24 06:03 06:52 MCV 84.4 MCH 28.5 MCHC 33.7 RDW 14.0 Plt Count 199 MPV 9.2 L Immature Gran % (Auto) 0.4 Neut % (Auto) 78.7 H Lymph % (Auto) 11.3 L [place] % (Auto) 8.6 Eos % (Auto) 0.9 Baso % (Auto) 0.1 Lymph # (Auto) 0.9 L [place] # (Auto) 0.7 Eos # (Auto) 0.1 Baso # (Auto) 0.0 Abs Immat Gran (auto) 0.03 Absolute Neuts (auto) 5.9 Absolute Nucleated RBC 0.000 Nucleated RBC % (auto) 0.0 Anion Gap 15 Estim Creat Clear Calc 38.2 Estimated GFR 35 POC Glucose 111 Random Glucose 87 Calcium 9.5 D Total Bilirubin 1.1 H AST 26 ALT 11 Alkaline Phosphatase 126 H Total Protein 7.7 Albumin 3.4 L Assessment and Plan (1) Calculous cholecystitis: Status: Acute (2) CKD (chronic kidney disease): Status: Acute (3) Hypertension: Status: Acute (4) Cardiomyopathy: Status: Acute (5) CHF (congestive heart failure): Status: Acute Plan pt is a 73 yo male with a pmhx significant for HLD, HTN, a fib on eliquis, CKD4 baseline cr around 2.17, CHF/cardiomyopathy EF 35-40%, T2DM (no insulin), anemia of chronic disease, hyperparathyroidism, and OA, who presented to the ED due to RUQ pain starting this morning, he rates the pain an 8/10 currently, constant and sharp. W/u in the ED significant for cholecytitis with normal AST/ALT, alk phos elevated at 126, t bili 1.7, CRP 13.33. acute cholecyctitis on CT, no sepsis continue Ceftriaxone Monitor LFTs For cholecystectomy today NPO mild KELSEY on CKD 3, creatine within baseline IVF, monitor BMP, avoid nephrotoxins chronic a fib rate controledd HLD hold statin HTN continue lisinopril CHF/cardiomyopathy hold farxiga due to mild KELSEY T2DM sliding scale insulin POC Q6H hold farxiga as above anemia of chronic disease H+H normal, 16.8/49.3 moniotr CBC continue iron hyperparathyroid continue calcitrol full code VTE prophy: pneumoboots, resume eliquis when appropriate Pt with acute calculus cholecystitis, requiring admission for IV abx and GI/surgical consultation. Quality Stroke Does the patient have a stroke diagnosis?: No VTE Prior VTE?: No VTE Risk Level:: Medical - moderate - high VTE Device Contraindication: N/A - Device Ordered VTE Drug Contraindication: Treatment Not Indicated
[2024-10-22 11:13] LABS: Glucose, Whole Blood 100 mg/dL (60-115)
[2024-10-22] MEDS: Potassium Chloride ER 20 MEQ TAB.ER.PRT 40 MEQ PO (11:33)
--- NOTE | 2024-10-22 13:04 | MHC.CM.PN ---
PER MD ROUNDS PATIENT NOT MEDICALLY CLEARED FOR DC, SCHEDULED FOR OR TODAY. CM WILL CONTINUE TO FOLLOW.
--- NOTE | 2024-10-22 13:21 | HO.ANESPROP2 ---
HPI - Anesthesia Eval Consult details Narrative: 74 yo male patient for Laparoscopic Cholecystectomy [facility] Active Problems Active Problems: All Active Problems Acute cholecystitis due to biliary calculus (Acute) Obesity (BMI 30.0-34.9) (Acute) Acute kidney injury superimposed on stage 4 chronic kidney disease (Acute) Calculous cholecystitis (Acute) Secondary hyperparathyroidism (of renal origin) (Acute) Hydronephrosis (Acute) Osteoarthritis of left knee (Acute) Preop cardiovascular exam (Acute) Iron deficiency (Acute) Anemia in chronic kidney disease (CKD) (Acute) CKD (chronic kidney disease) stage 4, GFR 15-29 ml/min (Acute) Hospital discharge follow-up (Acute) Cardiomyopathy (Acute) Hypertension (Acute) CHF (congestive heart failure) (Acute) Chronic atrial fibrillation (Acute) Former smoker (Acute) Depression (Acute) High cholesterol (Acute) Past Medical History Medical History (Updated 10/22/24 @ 13:23 by Julieta Bo MD) Stroke Chronic atrial fibrillation CHF (congestive heart failure) CKD (chronic kidney disease) Former smoker Depression Diabetes High cholesterol Hypertension Family History Family History Father No problems noted. Mother Diabetes Hypertension Cancer Son No problems noted. Son No problems noted. Son No problems noted. Daughter No problems noted. Daughter No problems noted. Family history of problems with anesthesia: No Surgical History Surgical History History of aneurysm History of shoulder surgery History of Problems with Anesthesia: No Social History Social History Household Members: None Household Members Other:: Housing: Apartment Do you presently have visiting nurse or other home services: No Alcohol intake: never Patient Tobacco Use Status: Never used Tobacco service: No Current occupational status: disabled Meds Allergies Allergy/AdvReac Type Severity Reaction Status Date / Time No Known Allergies Allergy Verified 10/20/24 11:17 [No Known Allergies*] Active Medications: Current Medications Acetaminophen (Acetaminophen 325 Mg Tablet) 975 mg PO Q6H PRN PRN Reason: Pain, Mild 1-3,fever,headache Calcitriol (Calcitriol 0.25 Mcg Capsule) 0.25 mcg PO Q2D@0900 [place] Last Admin: 10/21/24 09:15 Dose: 0.25 mcg Calcium Carbonate (Calcium Carbonate 750 Mg Tab.Chew) 750 mg PO Q4H PRN PRN Reason: Heartburn Ceftriaxone Sodium (Ceftriaxone Sodium 1 Gm Vial) 1 gm IVPUSH Q24H [facility] Last Admin: 10/21/24 21:32 Dose: 1 gm Dextrose (Dextrose 50 % 25 Gm/50 Ml Syringe) 25 gm IVPUSH Q15M PRN; Protocol PRN Reason: per Hypoglycemia Standing Ord. Ferrous Sulfate (Ferrous Sulfate 324 Mg Tablet.Dr) 324 mg PO BID [facility] Last Admin: 10/22/24 09:01 Dose: Not Given Glucose (Glucose Gel 15 Gm Gel..Gram.) 15 gm PO Q15M PRN; Protocol PRN Reason: per Hypoglycemia Standing Ord. Hydromorphone HCl (Hydromorphone Hcl 1 Mg/Ml Syringe) 0.5 mg IVPUSH Q4H PRN; Protocol PRN Reason: Pain, Severe (Pain Scale 7-10) Last Admin: 10/22/24 09:11 Dose: 0.5 mg Metronidazole (Flagyl) 500 mg in 100 mls @ 100 mls/hr IV Q8H [facility] Last Infusion: 10/22/24 06:50 Dose: Infused Lactated Ringer's (Lr) 1,000 mls @ 125 mls/hr IVCONT .Q8H [facility] Last Infusion: 10/22/24 11:43 Dose: Infused Lisinopril (Lisinopril 40 Mg Tablet) 40 mg PO DAILY [facility]; Protocol Last Admin: 10/22/24 09:00 Dose: 40 mg Magnesium Hydroxide (Milk Of Magnesia 30 Ml Oral.Susp) 30 ml PO DAILY PRN PRN Reason: Constipation Melatonin (Melatonin 3 Mg Tablet) 6 mg PO BEDTIME PRN PRN Reason: Insomnia Morphine Sulfate (Morphine Sulfate 4 Mg/Ml Cartridge) 2 mg IVPUSH Q6H PRN; Protocol PRN Reason: Pain, Moderate(Pain Scale 4-6) Ondansetron HCl (Ondansetron Hcl 4 Mg/2 Ml Vial) 4 mg IVPUSH Q8H PRN PRN Reason: Nausea and Vomiting Sodium Chloride (0.9 % Sodium Chloride Flush 3 Ml Syringe) 3 ml IVFLUSH QSHIFT [facility] Last Admin: 10/22/24 09:01 Dose: Not Given Home Medications ?Medication ?Instructions ?Recorded ?Confirmed ?Last Taken ?Type blood-glucose meter #1 ea 05/14/20 01/14/24 Unknown History lancets #100 ea 05/14/20 01/14/24 Unknown History atorvastatin 40 mg tablet 40 mg PO DAILY 12/19/22 10/20/24 10/19/24 History dapagliflozin propanediol 10 mg 10 mg PO DAILY 12/19/22 10/20/24 10/19/24 History tablet (Farxiga) apixaban 2.5 mg tablet (Eliquis) 2.5 mg PO BID 10/20/24 10/20/24 10/19/24 History lisinopril 40 mg tablet 40 mg PO DAILY 10/20/24 10/20/24 10/19/24 History Exam Height,Weight and Vital Signs: Height 5 ft 8 in Weight 89.811 kg Last Vital Signs Temp 97.9 F 10/22/24 12:55 Pulse 66 10/22/24 12:55 Resp 16 10/22/24 12:55 BP 187/83 H 10/22/24 12:55 Pulse Ox 96 10/22/24 12:55 O2 Del Method Room Air 10/22/24 12:55 Pertinent Lab Results Pertinent Lab Results: Laboratory Tests 10/20/24 10/20/24 10/20/24 11:26 11:30 21:51 WBC 10.2 RBC 5.82 H Hgb 16.8 Hct 49.3 MCV 84.7 MCH 28.9 MCHC 34.1 RDW 14.3 Plt Count 191 MPV 8.9 L Immature Gran % (Auto) 0.4 Neut % (Auto) 78.7 H Lymph % (Auto) 11.5 L [place] % (Auto) 8.8 Eos % (Auto) 0.3 Baso % (Auto) 0.3 Lymph # (Auto) 1.2 [place] # (Auto) 0.9 Eos # (Auto) 0.0 Baso # (Auto) 0.0 Abs Immat Gran (auto) 0.04 H Absolute Neuts (auto) 8.0 Absolute Nucleated RBC 0.000 Nucleated RBC % (auto) 0.0 ESR 45 H Sodium 141 Potassium 3.3 Chloride 104 Carbon Dioxide 27 Anion Gap 13 BUN 50 H Creatinine 2.38 H Estim Creat Clear Calc 30.9 Estimated GFR 27 POC Glucose 154 H Random Glucose 125 H Estimat Average Glucose 123 Hemoglobin A1c % 5.9 Calcium 9.5 Magnesium 2.0 Total Bilirubin 1.7 H Direct Bilirubin 0.5 AST 22 ALT 11 Alkaline Phosphatase 126 H C-Reactive Protein 13.33 H Total Protein 8.3 H Albumin 3.8 Lipase 16 Urine Color Yellow Urine Appearance Clear Urine pH 5.5 Ur Specific [place] 1.020 Urine Protein 300 (3+) H Urine Glucose (UA) >=1000 H Urine Ketones Negative Urine Blood Trace H Urine Nitrite Negative Ur Leukocyte Esterase Negative Urine RBC 0-2 Urine WBC 0-5 Ur Squamous Epith Cells 0-2 Urine Bacteria None Seen Hyaline Casts 3-5 Granular Casts Present 10/21/24 10/21/24 10/21/24 03:50 04:56 09:36 WBC 9.1 RBC 5.26 Hgb 15.1 Hct 44.5 MCV 84.6 MCH 28.7 MCHC 33.9 RDW 14.1 Plt Count 186 MPV 9.1 L Immature Gran % (Auto) 0.3 Neut % (Auto) 76.4 H Lymph % (Auto) 12.9 L [place] % (Auto) 9.5 Eos % (Auto) 0.7 Baso % (Auto) 0.2 Lymph # (Auto) 1.2 [place] # (Auto) 0.9 Eos # (Auto) 0.1 Baso # (Auto) 0.0 Abs Immat Gran (auto) 0.03 Absolute Neuts (auto) 7.0 Absolute Nucleated RBC 0.000 Nucleated RBC % (auto) 0.0 ESR Sodium 139 Potassium 3.2 L Chloride 105 Carbon Dioxide 22 Anion Gap 15 BUN 50 H Creatinine 2.31 H Estim Creat Clear Calc 31.4 Estimated GFR 28 POC Glucose 91 102 Random Glucose 106 Estimat Average Glucose Hemoglobin A1c % Calcium 8.8 D Magnesium Total Bilirubin 1.3 H Direct Bilirubin AST 23 ALT 12 Alkaline Phosphatase 124 H C-Reactive Protein Total Protein 7.5 Albumin 3.5 Lipase Urine Color Urine Appearance Urine pH Ur Specific [place] Urine Protein Urine Glucose (UA) Urine Ketones Urine Blood Urine Nitrite Ur Leukocyte Esterase Urine RBC Urine WBC Ur Squamous Epith Cells Urine Bacteria Hyaline Casts Granular Casts 10/21/24 10/21/24 10/21/24 10:01 15:37 18:03 WBC RBC Hgb Hct MCV MCH MCHC RDW Plt Count MPV Immature Gran % (Auto) Neut % (Auto) Lymph % (Auto) [place] % (Auto) Eos % (Auto) Baso % (Auto) Lymph # (Auto) [place] # (Auto) Eos # (Auto) Baso # (Auto) Abs Immat Gran (auto) Absolute Neuts (auto) Absolute Nucleated RBC Nucleated RBC % (auto) ESR Sodium Potassium Chloride Carbon Dioxide Anion Gap BUN Creatinine Estim Creat Clear Calc Estimated GFR POC Glucose 115 112 98 Random Glucose Estimat Average Glucose Hemoglobin A1c % Calcium Magnesium Total Bilirubin Direct Bilirubin AST ALT Alkaline Phosphatase C-Reactive Protein Total Protein Albumin Lipase Urine Color Urine Appearance Urine pH Ur Specific [place] Urine Protein Urine Glucose (UA) Urine Ketones Urine Blood Urine Nitrite Ur Leukocyte Esterase Urine RBC Urine WBC Ur Squamous Epith Cells Urine Bacteria Hyaline Casts Granular Casts 10/21/24 10/21/24 10/22/24 19:30 23:26 06:03 WBC RBC Hgb Hct MCV MCH MCHC RDW Plt Count MPV Immature Gran % (Auto) Neut % (Auto) Lymph % (Auto) [place] % (Auto) Eos % (Auto) Baso % (Auto) Lymph # (Auto) [place] # (Auto) Eos # (Auto) Baso # (Auto) Abs Immat Gran (auto) Absolute Neuts (auto) Absolute Nucleated RBC Nucleated RBC % (auto) ESR Sodium Potassium Chloride Carbon Dioxide Anion Gap BUN Creatinine Estim Creat Clear Calc Estimated GFR POC Glucose 98 97 111 Random Glucose Estimat Average Glucose Hemoglobin A1c % Calcium Magnesium Total Bilirubin Direct Bilirubin AST ALT Alkaline Phosphatase C-Reactive Protein Total Protein Albumin Lipase Urine Color Urine Appearance Urine pH Ur Specific [place] Urine Protein Urine Glucose (UA) Urine Ketones Urine Blood Urine Nitrite Ur Leukocyte Esterase Urine RBC Urine WBC Ur Squamous Epith Cells Urine Bacteria Hyaline Casts Granular Casts 10/22/24 10/22/24 06:52 11:00 WBC 7.6 RBC 5.76 Hgb 16.4 Hct 48.6 MCV 84.4 MCH 28.5 MCHC 33.7 RDW 14.0 Plt Count 199 MPV 9.2 L Immature Gran % (Auto) 0.4 Neut % (Auto) 78.7 H Lymph % (Auto) 11.3 L [place] % (Auto) 8.6 Eos % (Auto) 0.9 Baso % (Auto) 0.1 Lymph # (Auto) 0.9 L [place] # (Auto) 0.7 Eos # (Auto) 0.1 Baso # (Auto) 0.0 Abs Immat Gran (auto) 0.03 Absolute Neuts (auto) 5.9 Absolute Nucleated RBC 0.000 Nucleated RBC % (auto) 0.0 ESR Sodium 141 Potassium 3.0 L Chloride 105 Carbon Dioxide 24 Anion Gap 15 BUN 39 H Creatinine 1.90 H Estim Creat Clear Calc 38.2 Estimated GFR 35 POC Glucose 100 Random Glucose 87 Estimat Average Glucose Hemoglobin A1c % Calcium 9.5 D Magnesium Total Bilirubin 1.1 H Direct Bilirubin AST 26 ALT 11 Alkaline Phosphatase 126 H C-Reactive Protein Total Protein 7.7 Albumin 3.4 L Lipase Urine Color Urine Appearance Urine pH Ur Specific [place] Urine Protein Urine Glucose (UA) Urine Ketones Urine Blood Urine Nitrite Ur Leukocyte Esterase Urine RBC Urine WBC Ur Squamous Epith Cells Urine Bacteria Hyaline Casts Granular Casts Airway Mallampati Class: II TM Dist: >3cm Neck ROM: Full Loose/Missing/Broken Teeth: No (Denies broken, loose, missing teeth) Heart: RRR Lungs: CTAB Assessment and Plan Assessment Anesthesia Assessment: Anesthesia Plan Discussed and Chart Reviewed Final Anesthetic Review Family History of Problems with Anesthesia: No History of Problems with Anesthesia: No NPO: Yes ASA Class: III Final Preanesthetic Review: No Changes in Pt Med Stat, Meds/Allgs Chart Reviewed, Consent Obtained/Reviewed and Anes Risks/Benef Reviewed Patient Risk: Intermediate Procedure Risk: Intermediate Assessment/Block/Sedation in SS: Assess/Block/Sedation-SS Anesthetic Plan Anesthetic Plan: GA Disposition: Standard PACU
--- NOTE | 2024-10-22 13:51 | HO.ANESPROP2 ---
HPI - Anesthesia Eval Consult details Narrative: 74 yo male patient for Laparoscopic Cholecystectomy Anesthesia Pre-Procedure Meds Is the patient on any of the following meds?: SGLT2 Inhib (Last dose of Farxiga 10/19/24) If yes to any meds - educate patient: Pt education - increased risk of aspiration and/or euvolemic DKA PMF Active Problems Active Problems: All Active Problems Acute cholecystitis due to biliary calculus (Acute) Obesity (BMI 30.0-34.9) (Acute) Acute kidney injury superimposed on stage 4 chronic kidney disease (Acute) Calculous cholecystitis (Acute) Secondary hyperparathyroidism (of renal origin) (Acute) Hydronephrosis (Acute) Osteoarthritis of left knee (Acute) Preop cardiovascular exam (Acute) Iron deficiency (Acute) Anemia in chronic kidney disease (CKD) (Acute) CKD (chronic kidney disease) stage 4, GFR 15-29 ml/min (Acute) Hospital discharge follow-up (Acute) Cardiomyopathy (Acute) Hypertension (Acute) CHF (congestive heart failure) (Acute) Chronic atrial fibrillation (Acute) Former smoker (Acute) Depression (Acute) High cholesterol (Acute) Past Medical History Medical History (Updated 10/22/24 @ 13:55 by Julieta Bo MD) Stroke Chronic atrial fibrillation CHF (congestive heart failure) CKD (chronic kidney disease) Former smoker Depression Diabetes High cholesterol Hypertension Functional capacity: independent ambulation Family History Family History Father No problems noted. Mother Diabetes Hypertension Cancer Son No problems noted. Son No problems noted. Son No problems noted. Daughter No problems noted. Daughter No problems noted. Family history of problems with anesthesia: No Surgical History Surgical History History of aneurysm History of shoulder surgery History of Problems with Anesthesia: No Social History Social History Household Members: None Household Members Other:: Housing: Apartment Do you presently have visiting nurse or other home services: No Alcohol intake: never Patient Tobacco Use Status: Never used Tobacco service: No Current occupational status: disabled Meds Allergies Allergy/AdvReac Type Severity Reaction Status Date / Time No Known Allergies Allergy Verified 10/20/24 11:17 [No Known Allergies*] Active Medications: Current Medications Acetaminophen (Acetaminophen 325 Mg Tablet) 975 mg PO Q6H PRN PRN Reason: Pain, Mild 1-3,fever,headache Calcitriol (Calcitriol 0.25 Mcg Capsule) 0.25 mcg PO Q2D@0900 [facility] Last Admin: 10/21/24 09:15 Dose: 0.25 mcg Calcium Carbonate (Calcium Carbonate 750 Mg Tab.Chew) 750 mg PO Q4H PRN PRN Reason: Heartburn Ceftriaxone Sodium (Ceftriaxone Sodium 1 Gm Vial) 1 gm IVPUSH Q24H [facility] Last Admin: 10/21/24 21:32 Dose: 1 gm Dextrose (Dextrose 50 % 25 Gm/50 Ml Syringe) 25 gm IVPUSH Q15M PRN; Protocol PRN Reason: per Hypoglycemia Standing Ord. Ferrous Sulfate (Ferrous Sulfate 324 Mg Tablet.Dr) 324 mg PO BID [facility] Last Admin: 10/22/24 09:01 Dose: Not Given Glucose (Glucose Gel 15 Gm Gel..Gram.) 15 gm PO Q15M PRN; Protocol PRN Reason: per Hypoglycemia Standing Ord. Hydromorphone HCl (Hydromorphone Hcl 1 Mg/Ml Syringe) 0.5 mg IVPUSH Q4H PRN; Protocol PRN Reason: Pain, Severe (Pain Scale 7-10) Last Admin: 10/22/24 09:11 Dose: 0.5 mg Metronidazole (Flagyl) 500 mg in 100 mls @ 100 mls/hr IV Q8H [facility] Last Infusion: 10/22/24 06:50 Dose: Infused Lactated Ringer's (Lr) 1,000 mls @ 125 mls/hr IVCONT .Q8H [facility] Last Infusion: 10/22/24 11:43 Dose: Infused Lisinopril (Lisinopril 40 Mg Tablet) 40 mg PO DAILY [facility]; Protocol Last Admin: 10/22/24 09:00 Dose: 40 mg Magnesium Hydroxide (Milk Of Magnesia 30 Ml Oral.Susp) 30 ml PO DAILY PRN PRN Reason: Constipation Melatonin (Melatonin 3 Mg Tablet) 6 mg PO BEDTIME PRN PRN Reason: Insomnia Morphine Sulfate (Morphine Sulfate 4 Mg/Ml Cartridge) 2 mg IVPUSH Q6H PRN; Protocol PRN Reason: Pain, Moderate(Pain Scale 4-6) Ondansetron HCl (Ondansetron Hcl 4 Mg/2 Ml Vial) 4 mg IVPUSH Q8H PRN PRN Reason: Nausea and Vomiting Sodium Chloride (0.9 % Sodium Chloride Flush 3 Ml Syringe) 3 ml IVFLUSH QSHIFT [facility] Last Admin: 10/22/24 09:01 Dose: Not Given Home Medications ?Medication ?Instructions ?Recorded ?Confirmed ?Last Taken ?Type blood-glucose meter #1 ea 05/14/20 01/14/24 Unknown History lancets #100 ea 05/14/20 01/14/24 Unknown History atorvastatin 40 mg tablet 40 mg PO DAILY 12/19/22 10/20/24 10/19/24 History dapagliflozin propanediol 10 mg 10 mg PO DAILY 12/19/22 10/20/24 10/19/24 History tablet (Farxiga) apixaban 2.5 mg tablet (Eliquis) 2.5 mg PO BID 10/20/24 10/20/24 10/19/24 History lisinopril 40 mg tablet 40 mg PO DAILY 10/20/24 10/20/24 10/19/24 History Exam Height,Weight and Vital Signs: Height 5 ft 8 in Weight 89.811 kg Last Vital Signs Temp 97.9 F 10/22/24 12:55 Pulse 66 10/22/24 12:55 Resp 16 10/22/24 12:55 BP 187/83 H 10/22/24 12:55 Pulse Ox 96 10/22/24 12:55 O2 Del Method Room Air 10/22/24 12:55 Pertinent Lab Results Pertinent Lab Results: Laboratory Tests 10/20/24 10/20/24 10/20/24 11:26 11:30 21:51 WBC 10.2 RBC 5.82 H Hgb 16.8 Hct 49.3 MCV 84.7 MCH 28.9 MCHC 34.1 RDW 14.3 Plt Count 191 MPV 8.9 L Immature Gran % (Auto) 0.4 Neut % (Auto) 78.7 H Lymph % (Auto) 11.5 L [place] % (Auto) 8.8 Eos % (Auto) 0.3 Baso % (Auto) 0.3 Lymph # (Auto) 1.2 [place] # (Auto) 0.9 Eos # (Auto) 0.0 Baso # (Auto) 0.0 Abs Immat Gran (auto) 0.04 H Absolute Neuts (auto) 8.0 Absolute Nucleated RBC 0.000 Nucleated RBC % (auto) 0.0 ESR 45 H Sodium 141 Potassium 3.3 Chloride 104 Carbon Dioxide 27 Anion Gap 13 BUN 50 H Creatinine 2.38 H Estim Creat Clear Calc 30.9 Estimated GFR 27 POC Glucose 154 H Random Glucose 125 H Estimat Average Glucose 123 Hemoglobin A1c % 5.9 Calcium 9.5 Magnesium 2.0 Total Bilirubin 1.7 H Direct Bilirubin 0.5 AST 22 ALT 11 Alkaline Phosphatase 126 H C-Reactive Protein 13.33 H Total Protein 8.3 H Albumin 3.8 Lipase 16 Urine Color Yellow Urine Appearance Clear Urine pH 5.5 Ur Specific [place] 1.020 Urine Protein 300 (3+) H Urine Glucose (UA) >=1000 H Urine Ketones Negative Urine Blood Trace H Urine Nitrite Negative Ur Leukocyte Esterase Negative Urine RBC 0-2 Urine WBC 0-5 Ur Squamous Epith Cells 0-2 Urine Bacteria None Seen Hyaline Casts 3-5 Granular Casts Present 10/21/24 10/21/24 10/21/24 03:50 04:56 09:36 WBC 9.1 RBC 5.26 Hgb 15.1 Hct 44.5 MCV 84.6 MCH 28.7 MCHC 33.9 RDW 14.1 Plt Count 186 MPV 9.1 L Immature Gran % (Auto) 0.3 Neut % (Auto) 76.4 H Lymph % (Auto) 12.9 L [place] % (Auto) 9.5 Eos % (Auto) 0.7 Baso % (Auto) 0.2 Lymph # (Auto) 1.2 [place] # (Auto) 0.9 Eos # (Auto) 0.1 Baso # (Auto) 0.0 Abs Immat Gran (auto) 0.03 Absolute Neuts (auto) 7.0 Absolute Nucleated RBC 0.000 Nucleated RBC % (auto) 0.0 ESR Sodium 139 Potassium 3.2 L Chloride 105 Carbon Dioxide 22 Anion Gap 15 BUN 50 H Creatinine 2.31 H Estim Creat Clear Calc 31.4 Estimated GFR 28 POC Glucose 91 102 Random Glucose 106 Estimat Average Glucose Hemoglobin A1c % Calcium 8.8 D Magnesium Total Bilirubin 1.3 H Direct Bilirubin AST 23 ALT 12 Alkaline Phosphatase 124 H C-Reactive Protein Total Protein 7.5 Albumin 3.5 Lipase Urine Color Urine Appearance Urine pH Ur Specific [place] Urine Protein Urine Glucose (UA) Urine Ketones Urine Blood Urine Nitrite Ur Leukocyte Esterase Urine RBC Urine WBC Ur Squamous Epith Cells Urine Bacteria Hyaline Casts Granular Casts 10/21/24 10/21/24 10/21/24 10:01 15:37 18:03 WBC RBC Hgb Hct MCV MCH MCHC RDW Plt Count MPV Immature Gran % (Auto) Neut % (Auto) Lymph % (Auto) [place] % (Auto) Eos % (Auto) Baso % (Auto) Lymph # (Auto) [place] # (Auto) Eos # (Auto) Baso # (Auto) Abs Immat Gran (auto) Absolute Neuts (auto) Absolute Nucleated RBC Nucleated RBC % (auto) ESR Sodium Potassium Chloride Carbon Dioxide Anion Gap BUN Creatinine Estim Creat Clear Calc Estimated GFR POC Glucose 115 112 98 Random Glucose Estimat Average Glucose Hemoglobin A1c % Calcium Magnesium Total Bilirubin Direct Bilirubin AST ALT Alkaline Phosphatase C-Reactive Protein Total Protein Albumin Lipase Urine Color Urine Appearance Urine pH Ur Specific [place] Urine Protein Urine Glucose (UA) Urine Ketones Urine Blood Urine Nitrite Ur Leukocyte Esterase Urine RBC Urine WBC Ur Squamous Epith Cells Urine Bacteria Hyaline Casts Granular Casts 10/21/24 10/21/24 10/22/24 19:30 23:26 06:03 WBC RBC Hgb Hct MCV MCH MCHC RDW Plt Count MPV Immature Gran % (Auto) Neut % (Auto) Lymph % (Auto) [place] % (Auto) Eos % (Auto) Baso % (Auto) Lymph # (Auto) [place] # (Auto) Eos # (Auto) Baso # (Auto) Abs Immat Gran (auto) Absolute Neuts (auto) Absolute Nucleated RBC Nucleated RBC % (auto) ESR Sodium Potassium Chloride Carbon Dioxide Anion Gap BUN Creatinine Estim Creat Clear Calc Estimated GFR POC Glucose 98 97 111 Random Glucose Estimat Average Glucose Hemoglobin A1c % Calcium Magnesium Total Bilirubin Direct Bilirubin AST ALT Alkaline Phosphatase C-Reactive Protein Total Protein Albumin Lipase Urine Color Urine Appearance Urine pH Ur Specific [place] Urine Protein Urine Glucose (UA) Urine Ketones Urine Blood Urine Nitrite Ur Leukocyte Esterase Urine RBC Urine WBC Ur Squamous Epith Cells Urine Bacteria Hyaline Casts Granular Casts 10/22/24 10/22/24 06:52 11:00 WBC 7.6 RBC 5.76 Hgb 16.4 Hct 48.6 MCV 84.4 MCH 28.5 MCHC 33.7 RDW 14.0 Plt Count 199 MPV 9.2 L Immature Gran % (Auto) 0.4 Neut % (Auto) 78.7 H Lymph % (Auto) 11.3 L [place] % (Auto) 8.6 Eos % (Auto) 0.9 Baso % (Auto) 0.1 Lymph # (Auto) 0.9 L [place] # (Auto) 0.7 Eos # (Auto) 0.1 Baso # (Auto) 0.0 Abs Immat Gran (auto) 0.03 Absolute Neuts (auto) 5.9 Absolute Nucleated RBC 0.000 Nucleated RBC % (auto) 0.0 ESR Sodium 141 Potassium 3.0 L Chloride 105 Carbon Dioxide 24 Anion Gap 15 BUN 39 H Creatinine 1.90 H Estim Creat Clear Calc 38.2 Estimated GFR 35 POC Glucose 100 Random Glucose 87 Estimat Average Glucose Hemoglobin A1c % Calcium 9.5 D Magnesium Total Bilirubin 1.1 H Direct Bilirubin AST 26 ALT 11 Alkaline Phosphatase 126 H C-Reactive Protein Total Protein 7.7 Albumin 3.4 L Lipase Urine Color Urine Appearance Urine pH Ur Specific [place] Urine Protein Urine Glucose (UA) Urine Ketones Urine Blood Urine Nitrite Ur Leukocyte Esterase Urine RBC Urine WBC Ur Squamous Epith Cells Urine Bacteria Hyaline Casts Granular Casts Airway Mallampati Class: II TM Dist: >3cm Neck ROM: Full Loose/Missing/Broken Teeth: No (Denies broken, loose, missing teeth) Heart: RRR Lungs: CTAB Assessment and Plan Assessment Anesthesia Assessment: Anesthesia Plan Discussed and Chart Reviewed Final Anesthetic Review Family History of Problems with Anesthesia: No History of Problems with Anesthesia: No NPO: Yes ASA Class: III Final Preanesthetic Review: No Changes in Pt Med Stat, Meds/Allgs Chart Reviewed, Consent Obtained/Reviewed and Anes Risks/Benef Reviewed Patient Risk: Intermediate Procedure Risk: Intermediate Assessment/Block/Sedation in SS: Assess/Block/Sedation-SS Anesthetic Plan Anesthetic Plan: GA Disposition: Standard PACU
--- NOTE | 2024-10-22 15:27 | W.PM.OPN ---
Operative Note Operative Note Date of Service: 10/22/24 Narrative: Preoperative diagnosis: [] Acute cholecystitis Postop diagnosis: [] Acute phlegmonous cholecystitis Procedure [] laparoscopic cholecystectomy, attempted cholangiogram Surgeon: [] Luis Physical Therapy Coordinator: [] Raul Type of Anesthesia: [] General Indication for surgery; Markedly corpulent abdomen. Phlegmonous thick walled necrotic gallbladder with dense omental adhesions to it. Markedly intrahepatic gallbladder. Gallbladder literally fell apart during retraction. Dissection was limited to the cystic duct/ Samnatha's pouch junction in the attempted cholangiogram through what appeared to be the cystic duct remnant was unable to be performed because of the marked cicatrization and scarring and inflammation the gallbladder hilum. Specimen once retrieved was evaluated and no evidence of any iatrogenic common bile duct specimen on the gallbladder. Avulsion site of the necrotic gallbladder from the gallbladder bed occurred at at the cystic duct/ Samantha's pouch junction Findings: [] Patient brought to the operating room, placed on operative table supine position, after an adequate level general anesthesia was induced, the patient's abdomen is prepped and draped in usual sterile fashion . Next using a supraumbilical curvilinear incision, Fernandez technique was used to insufflate abdominal cavity to 15 mm of CO2. Upper midline and right subcostal ports were placed under direct laparoscopic view, and the patient placed in reverse Trendelenburg position, tilted to the left. The markedly turgid gallbladder was initially decompressed with an aspirating device because it was unable to be grasped. Marked dense omental adhesions were swept off the gallbladder and dissection toward the hilum was attempted. There was marked cicatrization and scarring. Cystic artery was identified, circumferentially dissect did out in traced directly into the gallbladder and critical view of pain. This was clipped proximally x2, distally x1, and transected. Gallbladder was dissected from the fundus downwardly toward the hilum. Next dissection around the cystic duct/Samantha's pouch junction with the traction of the gallbladder lead to its breaking off secondary to the marked phlegmonous/necrotic nature of the gallbladder. Specimen was placed in an Endo-Catch bag, and retrieved and inspected as noted above. Attempt at cannulating the cystic duct Samantha's pouch junction with a cholangiocatheter proved unsuccessful because of the marked cicatrization and inflammation of the area. To avoid any potential common bile duct injury, the procedure was terminated at this point. Abdominal cavity was copiously irrigated and secured for hemostasis. A Berto-Nix drain was left in the gallbladder fossa and exited through the right lateral port. This was secured to the skin using 2-0 nylon. Abdominal cavity was again secured hemostasis and all remaining ports removed under direct laparoscopic view. No gross evidence of biliary drainage from the gallbladder hilum was demonstrated. Wounds were closed in the following manner; umbilical wound had its fascia reapproximated using interrupted 0 Vicryl sutures. Skin wounds were closed using subcuticular 4-0 Vicryl sutures followed by Steri-Strips and sterile dressings. Wounds were infiltrated 0.5% Marcaine at completion. Sponge, needle, and instrument counts reported correct. Patient tolerated procedure well and emerged from anesthesia stable condition. EBL roughly 50 cc.
[2024-10-22] MEDS: 0.9 % Sodium Chloride Flush 3 ML SYRINGE IVFLUSH ×2 (16:46→21:11)
[2024-10-22 18:35] LABS: Glucose, Whole Blood 131 mg/dL (60-115)
--- NOTE | 2024-10-22 19:08 | PC.NURSE ---
dressing around INNA drain saturated and leaking onto underpad, serosanguinous drainage. Dr. Smith notified. Reports it is retained irrigant and expected to leak. Dressing changed around INNA drain with drain sponges, fluffs and abd. Sanguinous drainage from INNA drain. 100cc emptied from [id number].
[2024-10-22] MEDS: Docusate Sodium 100 MG CAPSULE PO (21:10)
[2024-10-22] MEDS: Ferrous Sulfate 324 MG TABLET.DR PO (21:10)
[2024-10-22] MEDS: cefTRIAXone sodium 1 GM VIAL IVPUSH (21:11)
[2024-10-22 23:44] LABS: Glucose, Whole Blood 284 mg/dL (60-115)
[2024-10-23] VITALS (8 sets, daily range): BP systolic 152–180; BP diastolic 68–88; PULSE 52–64; RESP 16–18; TEMP 36–36.7; O2SAT 95–96
[2024-10-23] MEDS: HYDROmorphone HCl 1 MG/ML SYRINGE 0.5 MG IVPUSH ×3 (00:46→16:35)
[2024-10-23] MEDS: metroNIDAZOLE/NS 500 MG/100 ML PIGGYBACK 100 MG IV ×4 (01:10→23:11)
[2024-10-23] MEDS: Lactated Ringers 1,000 ML 125 ML IVCONT (02:13)
[2024-10-23 05:41] LABS: MANUAL DIFF FLAG NO
[2024-10-23 05:52] LABS: Basophils Percent Auto 0.2 % (0-2); Hematocrit 43.2 % (42.0-52.0); Imm Gran Abs Auto 0.02 X10*3/uL (0.00-0.03); Imm Gran Pct Auto 0.3 % (0.0-0.4); Lymphocytes Absolute Auto 0.5 X10*3/uL (1.2-4.9); Lymphocytes Percent Auto 8.1 % (20-40); Mean Corpuscular HGB Conc 34.7 g/dl (31.0-36.0); Mean Corpuscular Volume 83.4 fL (80.0-98.0); Mean Platelet Volume 9.4 fL (9.4-12.4); Monocytes Absolute Auto 0.3 X10*3/uL (0.1-1.2); Monocytes Percent Auto 4.9 % (2-11); Neutrophils Absolute Auto 5.1 x10*3/uL (2.0-8.3); Neutrophils Percent Auto 86.5 % (45-73); Platelet Count 205 X10*3/uL (160-400); Red Blood Count 5.18 X10*6/uL (4.60-5.80); Red Cell Distribution Width 13.9 % (11.0-16.0); White Blood Count 5.9 X10*3/uL (4.8-10.8)
[2024-10-23 06:01] LABS: Glucose, Whole Blood 168 mg/dL (60-115)
[2024-10-23 06:11] LABS: Alanine Aminotransferase 54 U/L (0-40); Albumin Level 3.1 g/dL (3.5-5.0); Alkaline Phosphatase 119 U/L (39-117); Anion Gap 15 (12-20); Aspartate Amino Transferase 97 U/L (5-37); Bilirubin Total 0.5 mg/dL (0.0-1.0); Blood Urea Nitrogen 47 mg/dL (9-16); Calcium 8.9 mg/dL (8.4-10.2); Carbon Dioxide 22 mmol/L (22-29); Chloride 106 mmol/L (96-108); Creatinine Clr Calc Pharmacy 33.8; Estimated Glomerular Filt Rate 30; Glucose Random 174 mg/dL (60-115); Potassium 3.8 mmol/L (3.3-5.1); Sodium 139 mmol/L (135-145)
[2024-10-23] MEDS: calcitrioL 0.25 MCG CAPSULE PO (08:13)
[2024-10-23] MEDS: Docusate Sodium 100 MG CAPSULE PO ×2 (08:13→20:07)
[2024-10-23] MEDS: Ferrous Sulfate 324 MG TABLET.DR PO ×2 (08:13→20:07)
[2024-10-23] MEDS: lisinopriL 40 MG TABLET PO (08:13)
--- NOTE | 2024-10-23 08:16 | HO.POSTANES ---
Post Anesthesia Evaluation Post Anesthesia Evaluation Date of Service: 10/23/24 Vital Signs: Vital Signs Temp Pulse Resp BP Pulse Ox O2 Del Method 10/23/24 07:26 97.4 F 63 16 172/68 H 95 Room Air 10/23/24 03:17 96.9 F 57 16 162/69 H 96 Room Air 10/23/24 01:16 18 10/22/24 23:30 97.3 F 65 16 146/75 H 96 Room Air Anesthesia: General Mental Status: Awake Pain Control: Satisfactory Nausea/Vomiting: None Hydration: Adequate Anesthesia-Related Issues: No Anes. Related Issues
--- NOTE | 2024-10-23 08:55 | PM.PNGS ---
Subjective Subjective Date of Service: 10/23/24 Interval history: He overall feels well and is hungry and wants to eat and go home. Denies pain. Physical Exam Vital Signs: Vital Signs: Last Vital Signs Temp 97.4 F 10/23/24 07:26 Pulse 63 10/23/24 07:26 Resp 16 10/23/24 07:26 BP 172/68 H 10/23/24 07:26 Pulse Ox 95 10/23/24 07:26 O2 Del Method Room Air 10/23/24 07:26 BMI result Body Mass Index 30.1 Const: General: comfortable, no acute distress and alert Orientation/consciousness: patient oriented x3 Resp: Effort & Inspection: normal respiratory effort GI: Other: INNA drain serosanguineous output Palpation (GI): Soft to palpation, Tenderness to palpation present (GI) (mild incisional) and no guarding Percussion: Yes normal to percussion Skin: General skin exam: no rashes or lesions noted and no jaundice Neuro: General: patient oriented x3 and moves all extremities Objective Data Active Medications Acetaminophen (Acetaminophen 325 Mg Tablet) 975 mg PO Q6H PRN PRN Reason: Pain, Mild 1-3,fever,headache Calcitriol (Calcitriol 0.25 Mcg Capsule) 0.25 mcg PO Q2D@0900 [facility] Last Admin: 10/23/24 08:13 Dose: 0.25 mcg Documented By: KEIRY Calcium Carbonate (Calcium Carbonate 750 Mg Tab.Chew) 750 mg PO Q4H PRN PRN Reason: Heartburn Ceftriaxone Sodium (Ceftriaxone Sodium 1 Gm Vial) 1 gm IVPUSH Q24H [facility] Last Admin: 10/22/24 21:11 Dose: 1 gm Documented By: KAUSHIK Dextrose (Dextrose 50 % 25 Gm/50 Ml Syringe) 25 gm IVPUSH Q15M PRN; Protocol PRN Reason: per Hypoglycemia Standing Ord. Docusate Sodium (Docusate Sodium 100 Mg Capsule) 100 mg PO BID [facility] Last Admin: 10/23/24 08:13 Dose: 100 mg Documented By: KEIRY Ferrous Sulfate (Ferrous Sulfate 324 Mg Tablet.) 324 mg PO BID [facility] Last Admin: 10/23/24 08:13 Dose: 324 mg Documented By: KEIRY Glucose (Glucose Gel 15 Gm Gel..Gram.) 15 gm PO Q15M PRN; Protocol PRN Reason: per Hypoglycemia Standing Ord. Hydromorphone HCl (Hydromorphone Hcl 1 Mg/Ml Syringe) 0.5 mg IVPUSH Q4H PRN; Protocol PRN Reason: Pain, Severe (Pain Scale 7-10) Last Admin: 10/23/24 00:46 Dose: 0.5 mg Documented By: KAUSHIK Lactated Ringer's (Lr) 1,000 mls @ 125 mls/hr IVCONT .Q8H [facility] Last Admin: 10/23/24 02:13 Dose: 125 mls/hr Documented By: KAUSHIK Metronidazole (Flagyl) 500 mg in 100 mls @ 100 mls/hr IV Q8H [facility] Last Admin: 10/23/24 08:13 Dose: 100 mls/hr Documented By: KEIRY Lisinopril (Lisinopril 40 Mg Tablet) 40 mg PO DAILY [facility]; Protocol Last Admin: 10/23/24 08:13 Dose: 40 mg Documented By: KEIRY Magnesium Hydroxide (Milk Of Magnesia 30 Ml Oral.Susp) 30 ml PO DAILY PRN PRN Reason: Constipation Melatonin (Melatonin 3 Mg Tablet) 6 mg PO BEDTIME PRN PRN Reason: Insomnia Morphine Sulfate (Morphine Sulfate 4 Mg/Ml Cartridge) 4 mg IVPUSH Q4H PRN; Protocol PRN Reason: Pain, Severe (Pain Scale 7-10) Ondansetron HCl (Ondansetron Hcl 4 Mg/2 Ml Vial) 4 mg IVPUSH Q8H PRN PRN Reason: Nausea and Vomiting Sodium Chloride (0.9 % Sodium Chloride Flush 3 Ml Syringe) 3 ml IVFLUSH QSHIFT [facility] Last Admin: 10/23/24 08:25 Dose: Not Given Documented By: KEIRY Non-Admin Reason: IV Running Labs 10/23/24 05:17 10/23/24 05:17 Labs: Laboratory Results - last 24 hr 10/22/24 10/22/24 10/22/24 11:00 18:31 23:34 MCV MCH MCHC RDW Plt Count MPV Immature Gran % (Auto) Neut % (Auto) Lymph % (Auto) [place] % (Auto) Eos % (Auto) Baso % (Auto) Lymph # (Auto) [place] # (Auto) Eos # (Auto) Baso # (Auto) Abs Immat Gran (auto) Absolute Neuts (auto) Absolute Nucleated RBC Nucleated RBC % (auto) Anion Gap Estim Creat Clear Calc Estimated GFR POC Glucose 100 131 H 284 H Random Glucose Calcium Total Bilirubin AST ALT Alkaline Phosphatase Total Protein Albumin 10/23/24 10/23/24 05:17 05:57 MCV 83.4 MCH 29.0 MCHC 34.7 RDW 13.9 Plt Count 205 MPV 9.4 Immature Gran % (Auto) 0.3 Neut % (Auto) 86.5 H Lymph % (Auto) 8.1 L [place] % (Auto) 4.9 Eos % (Auto) 0.0 Baso % (Auto) 0.2 Lymph # (Auto) 0.5 L [place] # (Auto) 0.3 Eos # (Auto) 0.0 Baso # (Auto) 0.0 Abs Immat Gran (auto) 0.02 Absolute Neuts (auto) 5.1 Absolute Nucleated RBC 0.000 Nucleated RBC % (auto) 0.0 Anion Gap 15 Estim Creat Clear Calc 33.8 Estimated GFR 30 POC Glucose 168 H Random Glucose 174 H Calcium 8.9 D Total Bilirubin 0.5 AST 97 H ALT 54 H Alkaline Phosphatase 119 H Total Protein 7.0 Albumin 3.1 L Procedures Date of Service Date of Service: 10/23/24 Progress Note: A&P Assessment and plan (1) S/P laparoscopic cholecystectomy: Status: Acute (2) Acute cholecystitis due to biliary calculus: Status: Acute Plan POD #1 s/p lap esau. He was found to have phlegmonous thick walled necrotic gallbladder with dense omental adhesions to it with marked cicatrization and scarring and inflammation the gallbladder hilum. VSS. Abd is benign with appropriate post op tenderness, dressings intact. INNA drain in place with nonbilious output. Mild bump in transaminases but bilirubin normal. Can advance to clear liquids for now. Monitor INNA output. Hold eliquis for now. Time Spent With Patient Time: Total time managing care of this patient today ____ minutes. Quality Stroke Does the patient have a stroke diagnosis?: No VTE Prior VTE?: No VTE Risk Level:: Medical - moderate - high VTE Device Contraindication: N/A - Device Ordered VTE Drug Contraindication: Treatment Not Indicated
--- NOTE | 2024-10-23 09:32 | P.CDIM_ITS ---
PROVIDER RESPONSE TEXT: To clarify, the appropriate diagnosis supported by the clinical indicators: Acute renal failure on Chronic Kidney Disease (CKD) stage 3 QUERY TEXT: PHYSICIAN'S DOCUMENTATION REQUEST Date of Query: 10/23/2024 08:19 AM EDT Patient Name: Ethan Cristina Admit Date: 10/21/2024 Dear Vivek Jaramillo MD, A review of the medical record indicates additional documentation may be needed. Please review below and update the documentation accordingly. Clinical Indicators: Progress notes 10/21 & 10/22: Pt is a 73 yo male with a pmh for HLD, HTN, afib on eliquis, CKD 4 basel ine cr around 2.17. KELSEY on CKD 3, creatine within baseline. IVF, monitor BMP, avoid nephrotoxins. Please clarify which of the following accurately represents the patient's renal status: Acute renal failure on Chronic Kidney Disease (CKD) stage 3 Acute kidney failure on Chronic Kidney Disease stage 4 CKD, please provide stage if different Other (explain) Clinically unable to determine (explain) Thank you, Debra Moreland, CCS, CDIS Use of terms such as suspected, likely, concern for, or probable (associated with a specific diagnosi s that is being evaluated, monitored, or treated as if it exists) are acceptable and can be coded in the inpatient se tting, when documented at the time of discharge. Please use your independent medical judgment in providing your response. THIS QUERY IS PART OF THE PERMANENT MEDICAL RECORD
--- NOTE | 2024-10-23 10:24 | P.PNIM_ITS ---
Subjective Subjective Date of Service: 10/23/24 Interval History: f/u on acute cholecystitis interval history: had gallblader removal yesterday and found to have He was found to have phlegmonous thick walled necrotic gallbladder with dense omental adhesions to it with marked cicatrization and scarring and inflammation the gallbladder hilum Physical Exam 2 Vital Signs: Vital Signs: Last Vital Signs Temp 97.4 F 10/23/24 07:26 Pulse 63 10/23/24 07:26 Resp 16 10/23/24 07:26 BP 172/68 H 10/23/24 07:26 Pulse Ox 95 10/23/24 07:26 O2 Del Method Room Air 10/23/24 07:26 BMI result Body Mass Index 30.1 Const: Other: General: AO X 3, no acute distress Resp: CTA bilateral CVS: S1,S2,RRR GI: +BS,tendernress around incisions Skin: No rash Neuro: motor grossly intact Psych: appropriate affect Objective Data Active Medications Acetaminophen (Acetaminophen 325 Mg Tablet) 975 mg PO Q6H PRN PRN Reason: Pain, Mild 1-3,fever,headache Calcitriol (Calcitriol 0.25 Mcg Capsule) 0.25 mcg PO Q2D@0900 [facility] Last Admin: 10/23/24 08:13 Dose: 0.25 mcg Documented By: KEIRY Calcium Carbonate (Calcium Carbonate 750 Mg Tab.Chew) 750 mg PO Q4H PRN PRN Reason: Heartburn Ceftriaxone Sodium (Ceftriaxone Sodium 1 Gm Vial) 1 gm IVPUSH Q24H [facility] Last Admin: 10/22/24 21:11 Dose: 1 gm Documented By: KAUSHIK Dextrose (Dextrose 50 % 25 Gm/50 Ml Syringe) 25 gm IVPUSH Q15M PRN; Protocol PRN Reason: per Hypoglycemia Standing Ord. Docusate Sodium (Docusate Sodium 100 Mg Capsule) 100 mg PO BID [facility] Last Admin: 10/23/24 08:13 Dose: 100 mg Documented By: KEIRY Ferrous Sulfate (Ferrous Sulfate 324 Mg Tablet.Dr) 324 mg PO BID [facility] Last Admin: 10/23/24 08:13 Dose: 324 mg Documented By: KEIRY Glucose (Glucose Gel 15 Gm Gel..Gram.) 15 gm PO Q15M PRN; Protocol PRN Reason: per Hypoglycemia Standing Ord. Hydromorphone HCl (Hydromorphone Hcl 1 Mg/Ml Syringe) 0.5 mg IVPUSH Q4H PRN; Protocol PRN Reason: Pain, Severe (Pain Scale 7-10) Last Admin: 10/23/24 00:46 Dose: 0.5 mg Documented By: KAUSHIK Metronidazole (Flagyl) 500 mg in 100 mls @ 100 mls/hr IV Q8H [facility] Last Infusion: 10/23/24 09:20 Dose: Infused Documented By: KEIRY Lisinopril (Lisinopril 40 Mg Tablet) 40 mg PO DAILY [facility]; Protocol Last Admin: 10/23/24 08:13 Dose: 40 mg Documented By: KEIRY Magnesium Hydroxide (Milk Of Magnesia 30 Ml Oral.Susp) 30 ml PO DAILY PRN PRN Reason: Constipation Melatonin (Melatonin 3 Mg Tablet) 6 mg PO BEDTIME PRN PRN Reason: Insomnia Morphine Sulfate (Morphine Sulfate 4 Mg/Ml Cartridge) 4 mg IVPUSH Q4H PRN; Protocol PRN Reason: Pain, Severe (Pain Scale 7-10) Ondansetron HCl (Ondansetron Hcl 4 Mg/2 Ml Vial) 4 mg IVPUSH Q8H PRN PRN Reason: Nausea and Vomiting Sodium Chloride (0.9 % Sodium Chloride Flush 3 Ml Syringe) 3 ml IVFLUSH QSHIFT [facility] Last Admin: 10/23/24 08:25 Dose: Not Given Documented By: KEIRY Non-Admin Reason: IV Running Labs 10/23/24 05:17 10/23/24 05:17 Labs: Laboratory Results - last 24 hr 10/22/24 10/22/24 10/22/24 11:00 18:31 23:34 MCV MCH MCHC RDW Plt Count MPV Immature Gran % (Auto) Neut % (Auto) Lymph % (Auto) [place] % (Auto) Eos % (Auto) Baso % (Auto) Lymph # (Auto) [place] # (Auto) Eos # (Auto) Baso # (Auto) Abs Immat Gran (auto) Absolute Neuts (auto) Absolute Nucleated RBC Nucleated RBC % (auto) Anion Gap Estim Creat Clear Calc Estimated GFR POC Glucose 100 131 H 284 H Random Glucose Calcium Total Bilirubin AST ALT Alkaline Phosphatase Total Protein Albumin 10/23/24 10/23/24 05:17 05:57 MCV 83.4 MCH 29.0 MCHC 34.7 RDW 13.9 Plt Count 205 MPV 9.4 Immature Gran % (Auto) 0.3 Neut % (Auto) 86.5 H Lymph % (Auto) 8.1 L [place] % (Auto) 4.9 Eos % (Auto) 0.0 Baso % (Auto) 0.2 Lymph # (Auto) 0.5 L [place] # (Auto) 0.3 Eos # (Auto) 0.0 Baso # (Auto) 0.0 Abs Immat Gran (auto) 0.02 Absolute Neuts (auto) 5.1 Absolute Nucleated RBC 0.000 Nucleated RBC % (auto) 0.0 Anion Gap 15 Estim Creat Clear Calc 33.8 Estimated GFR 30 POC Glucose 168 H Random Glucose 174 H Calcium 8.9 D Total Bilirubin 0.5 AST 97 H ALT 54 H Alkaline Phosphatase 119 H Total Protein 7.0 Albumin 3.1 L Assessment and Plan (1) Calculous cholecystitis: Status: Acute (2) CKD (chronic kidney disease): Status: Acute (3) Hypertension: Status: Acute (4) Cardiomyopathy: Status: Acute (5) CHF (congestive heart failure): Status: Acute Plan pt is a 73 yo male with a pmhx significant for HLD, HTN, a fib on eliquis, CKD4 baseline cr around 2.17, CHF/cardiomyopathy EF 35-40%, T2DM (no insulin), anemia of chronic disease, hyperparathyroidism, and OA, who presented to the ED due to RUQ pain starting this morning, he rates the pain an 8/10 currently, constant and sharp. W/u in the ED significant for cholecytitis with normal AST/ALT, alk phos elevated at 126, t bili 1.7, CRP 13.33. acute cholecyctitis on CT, no sepsis continue Ceftriaxone Monitor LFTs cholecystectomy on 10/22 and found to have phlegmonous thick walled necrotic gallbladder with dense omental adhesions to it with marked cicatrization and scarring and inflammation the gallbladder hilum advance to clear liquid diet today, INNA drain in place mild KELSEY on CKD 3, creatine within baseline IVF, monitor BMP, avoid nephrotoxins chronic a fib rate controledd hold eliquis HLD hold statin HTN continue lisinopril CHF/cardiomyopathy hold farxiga due to mild KELSEY T2DM sliding scale insulin hold farxiga as above anemia of chronic disease H+H normal, 16.8/49.3 moniotr CBC continue iron hyperparathyroid continue calcitrol full code VTE prophy: pneumoboots, resume eliquis when appropriate Pt with acute calculus cholecystitis, requiring admission for IV abx and GI/surgical consultation. Quality Stroke Does the patient have a stroke diagnosis?: No VTE Prior VTE?: No VTE Risk Level:: Medical - moderate - high VTE Device Contraindication: N/A - Device Ordered VTE Drug Contraindication: Treatment Not Indicated
[2024-10-23] MEDS: Lactated Ringers 1,000 ML 100 ML IVCONT ×2 (11:02→20:07)
[2024-10-23 11:16] LABS: Glucose, Whole Blood 216 mg/dL (60-115)
[2024-10-23] MEDS: Insulin Lispro 100 UNIT/ML 3 ML VIAL SUBCUT (12:01)
[2024-10-23 16:32] LABS: Glucose, Whole Blood 95 mg/dL (60-115)
[2024-10-23] MEDS: amLODIPine Besylate 5 MG TABLET PO (18:41)
[2024-10-23 19:54] LABS: Glucose, Whole Blood 142 mg/dL (60-115)
[2024-10-23] MEDS: cefTRIAXone sodium 1 GM VIAL IVPUSH (20:07)
[2024-10-23] MEDS: 0.9 % Sodium Chloride Flush 3 ML SYRINGE IVFLUSH (20:08)
[2024-10-24] VITALS (7 sets, daily range): BP systolic 160–189; BP diastolic 68–92; PULSE 55–66; RESP 16–17; TEMP 36–36.4; O2SAT 95–97
[2024-10-24] MEDS: Lactated Ringers 1,000 ML 100 ML IVCONT ×2 (05:31→15:55)
[2024-10-24 06:51] LABS: Alanine Aminotransferase 48 U/L (0-40); Albumin Level 3.1 g/dL (3.5-5.0); Alkaline Phosphatase 105 U/L (39-117); Anion Gap 12 (12-20); Aspartate Amino Transferase 67 U/L (5-37); Bilirubin Total 0.5 mg/dL (0.0-1.0); Blood Urea Nitrogen 39 mg/dL (9-16); Calcium 8.7 mg/dL (8.4-10.2); Carbon Dioxide 25 mmol/L (22-29); Chloride 106 mmol/L (96-108); Creatinine Clr Calc Pharmacy 43.7; Estimated Glomerular Filt Rate 41; Glucose Random 98 mg/dL (60-115); Sodium 140 mmol/L (135-145); Total Protein 6.6 g/dL (6.5-8.0)
--- NOTE | 2024-10-24 07:36 | PM.PNGS ---
Subjective Subjective Date of Service: 10/24/24 Interval history: Uneventful evening. P.o. intake marginal. Incisional discomfort which is improving. INNA drain serosanguineous output. No evidence of biliary leak. Physical Exam Vital Signs: Vital Signs: Last Vital Signs Temp 97.3 F 10/24/24 07:06 Pulse 66 10/24/24 07:06 Resp 16 10/24/24 07:06 BP 189/82 H 10/24/24 07:06 Pulse Ox 95 10/24/24 07:06 O2 Del Method Room Air 10/24/24 07:06 BMI result Body Mass Index 30.1 GI: Other: Abdomen corpulent, soft, benign. All incisions clean dry and intact. INNA dressing change. Objective Data Active Medications Acetaminophen (Acetaminophen 325 Mg Tablet) 975 mg PO Q6H PRN PRN Reason: Pain, Mild 1-3,fever,headache Amlodipine Besylate (Amlodipine Besylate 5 Mg Tablet) 5 mg PO DAILY [facility]; Protocol Last Admin: 10/23/24 18:41 Dose: 5 mg Documented By: KEIRY Artificial Tears (Artificial Tears 15 Ml Drops) 1 drop EYE-BOTH Q4H PRN PRN Reason: Dry Eyes Calcitriol (Calcitriol 0.25 Mcg Capsule) 0.25 mcg PO Q2D@0900 [facility] Last Admin: 10/23/24 08:13 Dose: 0.25 mcg Documented By: KEIRY Calcium Carbonate (Calcium Carbonate 750 Mg Tab.Chew) 750 mg PO Q4H PRN PRN Reason: Heartburn Ceftriaxone Sodium (Ceftriaxone Sodium 1 Gm Vial) 1 gm IVPUSH Q24H [facility] Last Admin: 10/23/24 20:07 Dose: 1 gm Documented By: SHAYY Dextrose (Dextrose 50 % 25 Gm/50 Ml Syringe) 25 gm IVPUSH Q15M PRN; Protocol PRN Reason: per Hypoglycemia Standing Ord. Docusate Sodium (Docusate Sodium 100 Mg Capsule) 100 mg PO BID [facility] Last Admin: 10/23/24 20:07 Dose: 100 mg Documented By: SHAYY Ferrous Sulfate (Ferrous Sulfate 324 Mg Tablet.) 324 mg PO BID [facility] Last Admin: 10/23/24 20:07 Dose: 324 mg Documented By: SHAYY Glucose (Glucose Gel 15 Gm Gel..Gram.) 15 gm PO Q15M PRN; Protocol PRN Reason: per Hypoglycemia Standing Ord. Hydromorphone HCl (Hydromorphone Hcl 1 Mg/Ml Syringe) 0.5 mg IVPUSH Q4H PRN; Protocol PRN Reason: Pain, Severe (Pain Scale 7-10) Last Admin: 10/23/24 16:35 Dose: 0.5 mg Documented By: KEIRY Metronidazole (Flagyl) 500 mg in 100 mls @ 100 mls/hr IV Q8H [facility] Last Infusion: 10/24/24 00:11 Dose: Infused Documented By: SHAYY Lactated Ringer's (Lr) 1,000 mls @ 100 mls/hr IVCONT .Q10H [facility] Last Admin: 10/24/24 05:31 Dose: 100 mls/hr Documented By: SHAYY Insulin Human Lispro (Insulin Lispro 100 Unit/Ml 3 Ml Vial) 0 unit SUBCUT QIDACHS [facility]; Protocol Last Admin: 10/23/24 20:08 Dose: Not Given Documented By: SHAYY Non-Admin Reason: No Insulin Coverage Lisinopril (Lisinopril 40 Mg Tablet) 40 mg PO DAILY [facility]; Protocol Last Admin: 10/23/24 08:13 Dose: 40 mg Documented By: KEIRY Magnesium Hydroxide (Milk Of Magnesia 30 Ml Oral.Susp) 30 ml PO DAILY PRN PRN Reason: Constipation Melatonin (Melatonin 3 Mg Tablet) 6 mg PO BEDTIME PRN PRN Reason: Insomnia Morphine Sulfate (Morphine Sulfate 4 Mg/Ml Cartridge) 4 mg IVPUSH Q4H PRN; Protocol PRN Reason: Pain, Severe (Pain Scale 7-10) Ondansetron HCl (Ondansetron Hcl 4 Mg/2 Ml Vial) 4 mg IVPUSH Q8H PRN PRN Reason: Nausea and Vomiting Potassium Chloride (Potassium Chloride Er 20 Meq Tab.Er.Prt) 40 meq PO Q6H [facility] Stop: 10/24/24 19:16 Sodium Chloride (0.9 % Sodium Chloride Flush 3 Ml Syringe) 3 ml IVFLUSH QSHIFT [facility] Last Admin: 10/23/24 20:08 Dose: 3 ml Documented By: SHAYY Labs 10/23/24 05:17 10/24/24 05:54 Labs: Laboratory Results - last 24 hr 10/23/24 10/23/24 10/23/24 11:01 16:10 19:47 Anion Gap Estim Creat Clear Calc Estimated GFR POC Glucose 216 H 95 142 H Random Glucose Calcium Total Bilirubin AST ALT Alkaline Phosphatase Total Protein Albumin 10/24/24 05:54 Anion Gap 12 Estim Creat Clear Calc 43.7 Estimated GFR 41 POC Glucose Random Glucose 98 Calcium 8.7 Total Bilirubin 0.5 AST 67 H ALT 48 H Alkaline Phosphatase 105 Total Protein 6.6 Albumin 3.1 L Procedures Date of Service Date of Service: 10/24/24 Progress Note: A&P Assessment and plan (1) Status post laparoscopic cholecystectomy: Status: Acute Plan Advance diet as tolerated, out of bed/ambulate, incentive spirometry, possibly DC INNA drain later today if serosanguineous output is minimal. Time Spent With Patient Time: Total time managing care of this patient today ____ minutes. Quality Stroke Does the patient have a stroke diagnosis?: No VTE Prior VTE?: No VTE Risk Level:: Medical - moderate - high VTE Device Contraindication: N/A - Device Ordered VTE Drug Contraindication: Treatment Not Indicated
[2024-10-24 07:41] LABS: Magnesium 1.9 mg/dL (1.6-2.6)
[2024-10-24 07:44] LABS: Glucose, Whole Blood 110 mg/dL (60-115)
[2024-10-24] MEDS: Potassium Chloride ER 20 MEQ TAB.ER.PRT 40 MEQ PO ×3 (08:48→18:17)
[2024-10-24] MEDS: Docusate Sodium 100 MG CAPSULE PO (08:49)
[2024-10-24] MEDS: Ferrous Sulfate 324 MG TABLET.DR PO ×2 (08:49→20:31)
[2024-10-24] MEDS: metroNIDAZOLE/NS 500 MG/100 ML PIGGYBACK 100 MG IV ×2 (08:50→16:54)
[2024-10-24] MEDS: 0.9 % Sodium Chloride Flush 3 ML SYRINGE IVFLUSH ×3 (08:51→20:33)
[2024-10-24] MEDS: amLODIPine Besylate 5 MG TABLET PO (08:53)
[2024-10-24] MEDS: lisinopriL 40 MG TABLET PO (08:53)
--- NOTE | 2024-10-24 08:55 | PC.NURSE ---
BP elevated 187/[address] Jaramillo made aware,lisinopril and Amlodipine administered as ordered,patient asymptomatic
--- NOTE | 2024-10-24 10:13 | P.PNIM_ITS ---
Subjective Subjective Date of Service: 10/24/24 Interval History: f/u on acute cholecystitis interval history: f/u gallbladder removal, no pain, blood pressure has been very high, low potassium Physical Exam 2 Vital Signs: Vital Signs: Last Vital Signs Temp 97.3 F 10/24/24 07:06 Pulse 66 10/24/24 07:06 Resp 16 10/24/24 07:06 BP 187/86 H 10/24/24 08:53 Pulse Ox 95 10/24/24 07:06 O2 Del Method Room Air 10/24/24 07:06 BMI result Body Mass Index 30.1 Const: Other: General: AO X 3, no acute distress Resp: CTA bilateral CVS: S1,S2,RRR GI: +BS,tendernress around incisions Skin: No rash Neuro: motor grossly intact Psych: appropriate affect Objective Data Active Medications Acetaminophen (Acetaminophen 325 Mg Tablet) 975 mg PO Q6H PRN PRN Reason: Pain, Mild 1-3,fever,headache Amlodipine Besylate (Amlodipine Besylate 5 Mg Tablet) 5 mg PO DAILY [facility]; Protocol Last Admin: 10/24/24 08:53 Dose: 5 mg Documented By: HILLARY Artificial Tears (Artificial Tears 15 Ml Drops) 1 drop EYE-BOTH Q4H PRN PRN Reason: Dry Eyes Calcitriol (Calcitriol 0.25 Mcg Capsule) 0.25 mcg PO Q2D@0900 [facility] Last Admin: 10/23/24 08:13 Dose: 0.25 mcg Documented By: KEIRY Calcium Carbonate (Calcium Carbonate 750 Mg Tab.Chew) 750 mg PO Q4H PRN PRN Reason: Heartburn Ceftriaxone Sodium (Ceftriaxone Sodium 1 Gm Vial) 1 gm IVPUSH Q24H [facility] Last Admin: 10/23/24 20:07 Dose: 1 gm Documented By: SHAYY Dextrose (Dextrose 50 % 25 Gm/50 Ml Syringe) 25 gm IVPUSH Q15M PRN; Protocol PRN Reason: per Hypoglycemia Standing Ord. Docusate Sodium (Docusate Sodium 100 Mg Capsule) 100 mg PO BID [facility] Last Admin: 10/24/24 08:49 Dose: 100 mg Documented By: HILLARY Ferrous Sulfate (Ferrous Sulfate 324 Mg Tablet.Dr) 324 mg PO BID [facility] Last Admin: 10/24/24 08:49 Dose: 324 mg Documented By: HILLARY Glucose (Glucose Gel 15 Gm Gel..Gram.) 15 gm PO Q15M PRN; Protocol PRN Reason: per Hypoglycemia Standing Ord. Hydromorphone HCl (Hydromorphone Hcl 1 Mg/Ml Syringe) 0.5 mg IVPUSH Q4H PRN; Protocol PRN Reason: Pain, Severe (Pain Scale 7-10) Last Admin: 10/23/24 16:35 Dose: 0.5 mg Documented By: KEIRY Metronidazole (Flagyl) 500 mg in 100 mls @ 100 mls/hr IV Q8H [facility] Last Admin: 10/24/24 08:50 Dose: 100 mls/hr Documented By: HILLARY Lactated Ringer's (Lr) 1,000 mls @ 100 mls/hr IVCONT .Q10H [facility] Last Admin: 10/24/24 05:31 Dose: 100 mls/hr Documented By: SHAYY Insulin Human Lispro (Insulin Lispro 100 Unit/Ml 3 Ml Vial) 0 unit SUBCUT QIDACHS [facility]; Protocol Last Admin: 10/24/24 07:55 Dose: Not Given Documented By: HILLARY Non-Admin Reason: No Insulin Coverage Lisinopril (Lisinopril 40 Mg Tablet) 40 mg PO DAILY [facility]; Protocol Last Admin: 10/24/24 08:53 Dose: 40 mg Documented By: HILLARY Magnesium Hydroxide (Milk Of Magnesia 30 Ml Oral.Susp) 30 ml PO DAILY PRN PRN Reason: Constipation Melatonin (Melatonin 3 Mg Tablet) 6 mg PO BEDTIME PRN PRN Reason: Insomnia Morphine Sulfate (Morphine Sulfate 4 Mg/Ml Cartridge) 4 mg IVPUSH Q4H PRN; Protocol PRN Reason: Pain, Severe (Pain Scale 7-10) Ondansetron HCl (Ondansetron Hcl 4 Mg/2 Ml Vial) 4 mg IVPUSH Q8H PRN PRN Reason: Nausea and Vomiting Potassium Chloride (Potassium Chloride Er 20 Meq Tab.Er.Prt) 40 meq PO Q6H [facility] Stop: 10/24/24 19:16 Last Admin: 10/24/24 08:48 Dose: 40 meq Documented By: HILLARY Sodium Chloride (0.9 % Sodium Chloride Flush 3 Ml Syringe) 3 ml IVFLUSH QSHIFT [facility] Last Admin: 10/24/24 08:51 Dose: 3 ml Documented By: HILLARY Spironolactone (Spironolactone 25 Mg Tablet) 25 mg PO DAILY [facility]; Protocol Labs 10/23/24 05:17 10/24/24 05:54 Labs: Laboratory Results - last 24 hr 10/23/24 10/23/24 10/23/24 11:01 16:10 19:47 Anion Gap Estim Creat Clear Calc Estimated GFR POC Glucose 216 H 95 142 H Random Glucose Calcium Magnesium Total Bilirubin AST ALT Alkaline Phosphatase Total Protein Albumin 10/24/24 10/24/24 05:54 07:13 Anion Gap 12 Estim Creat Clear Calc 43.7 Estimated GFR 41 POC Glucose 110 Random Glucose 98 Calcium 8.7 Magnesium 1.9 Total Bilirubin 0.5 AST 67 H ALT 48 H Alkaline Phosphatase 105 Total Protein 6.6 Albumin 3.1 L Assessment and Plan (1) Calculous cholecystitis: Status: Acute (2) CKD (chronic kidney disease): Status: Acute (3) Hypertension: Status: Acute (4) Cardiomyopathy: Status: Acute (5) CHF (congestive heart failure): Status: Acute Plan pt is a 73 yo male with a pmhx significant for HLD, HTN, a fib on eliquis, CKD4 baseline cr around 2.17, CHF/cardiomyopathy EF 35-40%, T2DM (no insulin), anemia of chronic disease, hyperparathyroidism, and OA, who presented to the ED due to RUQ pain starting this morning, he rates the pain an 8/10 currently, constant and sharp. W/u in the ED significant for cholecytitis with normal AST/ALT, alk phos elevated at 126, t bili 1.7, CRP 13.33. acute cholecyctitis on CT, no sepsis continue Ceftriaxone Monitor LFTs Cholecystectomy on 10/22 and found to have phlegmonous thick walled necrotic gallbladder with dense omental adhesions to it with marked cicatrization and scarring and inflammation the gallbladder hilum advance to low sodium diet today mild KELSEY on CKD 3, creatine within baseline IVF, monitor BMP, avoid nephrotoxins chronic a fib rate controledd hold eliquis HLD hold statin HTN--uncontrolled continue lisinopril started norvasc 5 and adding Aldactone 25 mg daily Hypokalemia, K replacement and adding aldactone marimar for BP control CHF/cardiomyopathy hold farxiga due to mild KELSEY T2DM sliding scale insulin hold farxiga as above anemia of chronic disease H+H normal, 16.8/49.3 moniotr CBC continue iron hyperparathyroid continue calcitrol full code VTE prophy: pneumoboots, resume eliquis when appropriate Pt with acute calculus cholecystitis, requiring admission for IV abx and GI/surgical consultation. Quality Stroke Does the patient have a stroke diagnosis?: No VTE Prior VTE?: No VTE Risk Level:: Medical - moderate - high VTE Device Contraindication: N/A - Device Ordered VTE Drug Contraindication: Treatment Not Indicated
[2024-10-24 11:16] LABS: Glucose, Whole Blood 128 mg/dL (60-115)
[2024-10-24] MEDS: Spironolactone 25 MG TABLET PO (11:19)
--- NOTE | 2024-10-24 11:55 | MHC.CM.PN ---
PT NOT YET MEDICALLY CLEARED, PER MD ROUNDS, PLAN IS TO ADVANCE DIET AND LIKELY DC OVER THE WEEKEND DCP: HOME NO SERVICES VIA PRIVATE TRANSPORT VS [facility]
[2024-10-24 16:07] LABS: Glucose, Whole Blood 145 mg/dL (60-115)
[2024-10-24 19:41] LABS: Anion Gap 14 (12-20); Carbon Dioxide 26 mmol/L (22-29); Chloride 106 mmol/L (96-108); Potassium 3.7 mmol/L (3.3-5.1); Sodium 142 mmol/L (135-145)
[2024-10-24 20:24] LABS: Glucose, Whole Blood 139 mg/dL (60-115)
[2024-10-24] MEDS: cefTRIAXone sodium 1 GM VIAL IVPUSH (20:31)
[2024-10-25] MEDS: metroNIDAZOLE/NS 500 MG/100 ML PIGGYBACK 100 MG IV (01:52)
[2024-10-25] MEDS: Lactated Ringers 1,000 ML 100 ML IVCONT (01:52)
[2024-10-25 03:50] VITALS: BP 156/78; PULSE 63; RESP 17; TEMP 36.2; O2SAT 95
[2024-10-25 07:09] VITALS: BP 148/58; PULSE 65; RESP 16; TEMP 36.8; O2SAT 96
[2024-10-25 07:31] LABS: Glucose, Whole Blood 124 mg/dL (60-115)
[2024-10-25] MEDS: Docusate Sodium 100 MG CAPSULE PO (08:35)
[2024-10-25] MEDS: amLODIPine Besylate 5 MG TABLET PO (08:35)
[2024-10-25] MEDS: lisinopriL 40 MG TABLET PO (08:35)
[2024-10-25] MEDS: Ferrous Sulfate 324 MG TABLET.DR PO (08:35)
[2024-10-25] MEDS: metroNIDAZOLE 500 MG TABLET PO (08:35)
[2024-10-25] MEDS: calcitrioL 0.25 MCG CAPSULE PO (08:35)
[2024-10-25] MEDS: Spironolactone 25 MG TABLET PO (08:35)
[2024-10-25 08:45] LABS: Anion Gap 14 (12-20); Blood Urea Nitrogen 35 mg/dL (9-16); Calcium 9.3 mg/dL (8.4-10.2); Carbon Dioxide 25 mmol/L (22-29); Chloride 107 mmol/L (96-108); Creatinine Clr Calc Pharmacy 48.1; Estimated Glomerular Filt Rate 46; Glucose Random 95 mg/dL (60-115); Potassium 4.1 mmol/L (3.3-5.1); Sodium 142 mmol/L (135-145)
--- NOTE | 2024-10-25 09:19 | P.DS_ITS ---
DS: Providers Provider Date of Service: 10/25/24 Date of admission: 10/20/24 21:17 Date of discharge: 10/25/24 Primary care physician: Blanca Anderson MD Consults: 10/20/24 21:22 Consult to Gastroenterology Routine Consulting Provider: Dimitri Leblanc Reason for consultation: acute cholecystitis Has provider been notified: No Consult to General Surgery Routine Consulting Provider: Perfecto Smith Reason for consultation: acute cholecystitis Has provider been notified: Yes DS: Diagnosis Discharge Diagnosis (1) Calculous cholecystitis: Status: Acute (2) CKD (chronic kidney disease): Status: Acute (3) Hypertension: Status: Acute (4) Cardiomyopathy: Status: Acute (5) CHF (congestive heart failure): Status: Acute DS: Summary Hospital Course Hospital Course: admission hpi Chief Complaint: RUQ pain pt is a 73 yo male with a pmhx significant for HLD, HTN, a fib on eliquis, CKD4 baseline cr around 2.17, CHF/cardiomyopathy EF 35-40%, T2DM (no insulin), anemia of chronic disease, hyperparathyroidism, and OA, who presented to the ED due to RUQ pain starting this morning, he rates the pain an 8/10 currently, constant and sharp. no associated sx including nausea, vomiting, diarrhea or urinary sx. no headache, confusion, chest pain, SOB, fever, or chills. W/u in the ED significant for cholecytitis with normal AST/ALT, alk phos elevated at 126, t bili 1.7, CRP 13.33. Surgery was consulted who suggested medical admission with GI and surgery consultation and MRCP. Pt was given 500cc IVF and given morphine for pain management. Hospital course: pt is a 73 yo male with a pmhx significant for HLD, HTN, a fib on eliquis, CKD4 baseline cr around 2.17, CHF/cardiomyopathy EF 35-40%, T2DM (no insulin), anemia of chronic disease, hyperparathyroidism, and OA, who presented to the ED due to RUQ pain starting this morning, he rates the pain an 8/10 currently, constant and sharp. W/u in the ED significant for cholecytitis with normal AST/ALT, alk phos elevated at 126, t bili 1.7, CRP 13.33. Patient was treated with Ceftriaxone and Flagyl and underwent cholcystectomy on 10/22 and found to have phlegmonous thick walled necrotic gallbladder with dense omental adhesions to it with marked cicatrization and scarring and inflammation the gallbladder hilum, and INNA drain was left him. Post operatively has done well, diet has been advanced from liquid to now regular diet and tolerating well. He will be transitioned antibiotics with Ceftin for a total of 7 days of antibiotics mild KELSEY on CKD 3, resolved with IVF chronic a fib rate controledd continue eliquis HLD hold statin HTN--uncontrolled continue lisinopril started norvasc 5 and adding Aldactone 25 mg daily Hypokalemia, K replacement and adding aldactone [place] for BP control CHF/cardiomyopathy resume farxiga T2DM sliding scale insulin arxiga as above anemia of chronic disease H+H normal, 16.8/49.3 moniotr CBC continue iron hyperparathyroid continue calcitrol Time Attestation Discharge Coordination Time (in mins): 40 Quality: Safe Use of Opioids Does Pt have an Active Cancer Diagnosis on the Problem List?: No Quality: Stroke Does the patient have a stroke diagnosis?: No Physical Exam Vital Signs: Vital Signs: Last Vital Signs Temp 98.2 F 10/25/24 07:09 Pulse 65 10/25/24 07:09 Resp 16 10/25/24 07:09 BP 148/58 H 10/25/24 07:09 Pulse Ox 96 10/25/24 07:09 O2 Del Method Room Air 10/25/24 07:09 BMI result Body Mass Index 30.1 DS: Data Data Completed and Pending Completed studies during hospitalization [Text1]: Pending at discharge 10/22/24 15:16 Surgical [PTH] Routine Procedures Excision of Duodenum, Via Natural or Artificial Opening Endoscopic, Diagnostic (12/19/22) Excision of Esophagogastric Junction, Via Natural or Artificial Opening Endoscopic, Diagnostic (12/19/22) Excision of Stomach, Pylorus, Via Natural or Artificial Opening Endoscopic, Diagnostic (12/19/22) Transfusion of Nonautologous Red Blood Cells into Peripheral Vein, Percutaneous Approach (12/19/22) Labs on day of discharge: Laboratory Results - last 24 hr 10/24/24 10/24/24 10/24/24 11:01 15:59 19:08 Sodium 142 Potassium 3.7 D Chloride 106 Carbon Dioxide 26 Anion Gap 14 BUN Creatinine Estim Creat Clear Calc Estimated GFR POC Glucose 128 H 145 H Random Glucose Calcium 10/24/24 10/25/24 10/25/24 20:17 06:59 07:16 Sodium 142 Potassium 4.1 Chloride 107 Carbon Dioxide 25 Anion Gap 14 BUN 35 H Creatinine 1.51 H Estim Creat Clear Calc 48.1 Estimated GFR 46 POC Glucose 139 H 124 H Random Glucose 95 Calcium 9.3 D Discharge Plan Discharge Anticipated Discharge Date/Time: 10/25/24 09:20 Patient Disposition: Home, Self-Care Discharge Diagnosis: Acute cholecysttitis Referrals: Blanca Crowley MD [Primary Care Provider] - 1 Week Discharge Medications: New cefuroxime axetil 500 mg tablet 500 mg PO BID 3 Days Qty: 6 0RF Continued (DME) blood sugar diagnostic Strip See Rx Instructions .ROUTE BID Qty: 50 11RF Rx Instructions: Use 1 test strip once a day atorvastatin 40 mg tablet 40 mg PO DAILY dapagliflozin propanediol [Farxiga] 10 mg tablet 10 mg PO DAILY Eliquis 2.5 mg tablet 2.5 mg PO BID lisinopril 40 mg tablet 40 mg PO DAILY (DME) blood-glucose meter Misc See Rx Instructions PO BID Qty: 1 Rx Instructions: As directed (DME) lancets Misc See Rx Instructions .ROUTE BID Qty: 100 Rx Instructions: As directed ferrous sulfate 325 mg (65 mg iron) tablet 325 mg PO BID Qty: 60 4RF calcitriol 0.25 mcg capsule 0.25 mcg PO Q2D Qty: 14 6RF Discharge Orders: Discharge Order (Routine); Ordered 10/25/24 Ordered By: Vivek Jaramillo Diet: Advance to usual diet Activity on Discharge: As tolerated Stand Alone Forms: Patient Portal Discharge page Print Language: Indonesian Care Plan Goals: recovery from acute cholecystitis Health Concerns: cholecystitis Plan of Treatment: take Augmentin as recommended and follow up with your doctor in a week Assessment: see above Discharge Date/Time: 10/25/24 15:01
[2024-10-25] MEDS: Apixaban 2.5 MG TABLET PO (09:56)
[2024-10-25 09:58] LABS: Alanine Aminotransferase 52 U/L (0-40); Albumin Level 3.3 g/dL (3.5-5.0); Alkaline Phosphatase 113 U/L (39-117); Aspartate Amino Transferase 66 U/L (5-37); Bilirubin Direct 0.2 mg/dL (0.0-0.5); Bilirubin Total 0.5 mg/dL (0.0-1.0); Total Protein 7.4 g/dL (6.5-8.0)
[2024-10-25 11:23] LABS: Glucose, Whole Blood 258 mg/dL (60-115)
[2024-10-25] MEDS: Insulin Lispro 100 UNIT/ML 3 ML VIAL SUBCUT (11:53)
[2024-10-25 11:57] VITALS: BP 172/80; PULSE 59; RESP 18; TEMP 36.6; O2SAT 95
[2024-10-25 12:36] VITALS: BP 142/74
--- NOTE | 2024-10-25 13:54 | MHC.CM.PN ---
Patient medically cleared for dc home self care. Son to transport. IMM delivered.
[2024-10-25 14:32] VITALS: BP 150/70; PULSE 74; RESP 16; TEMP 36.9; O2SAT 96
== END 2024-10-25 15:01 | disposition home or self-care (01) | DRG 418 ==
LOC: HO.ED 20:28 → HO.EDOVER 21:25 → HO.S3 10-21 14:59
PROVIDERS: Physician Assistant Medical; Surgery; Admitting Provider Physician Assistant; Emergency Provider Emergency Medicine; PCP Student in an Organized Health Care Education/Training Program; Visit Provider Internal Medicine
PROC: 0FT44ZZ Resection of Gallbladder, Percutaneous Endoscopic Approach (ICD-10-PCS; CPT 47562; principal; 2024-10-22 14:00)
DX: K81.0 Acute cholecystitis (principal); I48.20 Chronic atrial fibrillation, unspecified; N17.9 Acute kidney failure, unspecified; K82.A1 Gangrene of gallbladder in cholecystitis; E21.3 Hyperparathyroidism, unspecified; I12.9 Hypertensive chronic kidney disease with stage 1 through stage 4 chronic kidney disease, or unspecified chronic kidney disease; N18.30 Chronic kidney disease, stage 3 unspecified; E11.22 Type 2 diabetes mellitus with diabetic chronic kidney disease; E78.5 Hyperlipidemia, unspecified; D63.1 Anemia in chronic kidney disease; Z79.899 Other long term (current) drug therapy
CPT/HCPCS: 36415; 74176; 76705; 80048; 80051; 80053; 80076; 81001; 82248; 82310; 82565; 82728; 82947; 83036; 83540; 83690; 83735; 83970; 84520; 85025; 85652; 86140; 88304; 93005; 99212; 99285; C1726; J0131; J0696; J1100; J1171; J1596; J1836; J2003; J2270; J2405; J2704; J2795; J3010; J7120; Q9967

== ENCOUNTER → 2024-10-20 11:17 | Outpatient (BNV) | payer OTHER, SELFPAY | PROVIDERS: PCP Student in an Organized Health Care Education/Training Program; Visit Provider Internal Medicine | DX: I48.91 Unspecified atrial fibrillation (principal) | CPT/HCPCS: 93010 ==

== ENCOUNTER → 2024-10-20 16:21 | Outpatient (BNV) | payer OTHER, SELFPAY | PROVIDERS: Emergency Provider Emergency Medicine; PCP Student in an Organized Health Care Education/Training Program; Visit Provider Specialist | DX: K56.609 Unspecified intestinal obstruction, unspecified as to partial versus complete obstruction (principal); K80.20 Calculus of gallbladder without cholecystitis without obstruction | CPT/HCPCS: 74176; 76705 ==

== ENCOUNTER → 2024-10-20 21:17 | Outpatient (BNV) | payer OTHER, MEDICAID, SELFPAY | PROVIDERS: Admitting Provider Physician Assistant; Emergency Provider Emergency Medicine; PCP Student in an Organized Health Care Education/Training Program; Visit Provider Physician Assistant | DX: K80.10 Calculus of gallbladder with chronic cholecystitis without obstruction (principal); I12.9 Hypertensive chronic kidney disease with stage 1 through stage 4 chronic kidney disease, or unspecified chronic kidney disease; N18.9 Chronic kidney disease, unspecified; I25.5 Ischemic cardiomyopathy; I50.9 Heart failure, unspecified | CPT/HCPCS: 99223; 99232 ==

== ENCOUNTER → 2024-10-20 21:17 | Outpatient (BNV) | payer OTHER, MEDICAID, SELFPAY | PROVIDERS: Admitting Provider Physician Assistant; Emergency Provider Emergency Medicine; PCP Student in an Organized Health Care Education/Training Program; Visit Provider Surgery | DX: K80.00 Calculus of gallbladder with acute cholecystitis without obstruction (principal) | CPT/HCPCS: 99223 ==

== ENCOUNTER → 2024-10-20 21:17 | Outpatient (BNV) | payer OTHER, MEDICAID, SELFPAY | PROVIDERS: Admitting Provider Physician Assistant; Emergency Provider Emergency Medicine; PCP Student in an Organized Health Care Education/Training Program; Visit Provider Internal Medicine Gastroenterology | DX: K80.10 Calculus of gallbladder with chronic cholecystitis without obstruction (principal) | CPT/HCPCS: 99223 ==

== ENCOUNTER 2024-10-26 01:34 | Emergency (ER) | payer OTHER, MEDICAID, SELFPAY ==
--- NOTE | ~2024-10-26 | XR_ITS ---
CLINICAL HISTORY: constipation 1 view abdomen Comparison: US - US ABDOMEN LIMITED - 10/20/24 18:[address]/SR - CT ABDOMEN PELVIS WO IV CON - 10/20/24 17:25 EDT Findings: No pneumoperitoneum or pneumatosis. Multiple gas-filled loops of nondilated bowel are identified throughout the abdomen. A small amount of stool is visualized over the rectum. Moderate colonic stool burden present. Surgical clips are identified over the right upper abdominal quadrant, possibly consistent with prior cholecystectomy. No acute fractures. IMPRESSION: 1. Nonobstructed bowel-gas pattern. 2. Moderate colonic stool burden. This document has been electronically signed by: Girma Shah MD on 10/26/2024 02:47:40
--- NOTE | ~2024-10-26 | CT_ITS ---
CLINICAL HISTORY: post op pain CT abdomen and pelvis without contrast Comparison: CT/SR - CT ABDOMEN PELVIS WO IV CON - 10/20/24 17:25 EDT Findings: There is a small sliding hiatal hernia. There has been interval cholecystectomy. Trace fluid is seen in the gallbladder fossa with no organized fluid collection. Mild nonspecific bilateral perinephric stranding is present. The noncontrast appearance of the liver, pancreas, spleen, and bilateral adrenal glands is within normal limits. There is no evidence of bowel obstruction. The appendix appears normal. There is no pneumoperitoneum. The urinary bladder appears normal. There is no adenopathy. Small amount of free fluid is seen in the pelvis, new since prior exam. Moderate degenerative changes are seen in the spine. No acute osseous abnormality is identified. No aggressive lytic or blastic lesion is seen. IMPRESSION: Interval cholecystectomy with trace fluid in the gallbladder fossa and small amount of free fluid in the pelvis. No organized fluid collection is identified. This document has been electronically signed by: Dorita Taylor on 10/26/2024 06:25:08
[2024-10-26 01:43] VITALS: BP 200/93; BP 238/106; PULSE 83; PULSE 84; RESP 20; TEMP 36.6; O2SAT 93; O2SAT 96; BMI 30.8
--- NOTE | 2024-10-26 01:49 | ED_ITS ---
HPI - Abdominal Pain General Chief Complaint: Abdominal Pain Stated Complaint: SEVERE STOMACH PAIN Time Seen by Provider: 10/26/24 01:48 Source: patient Mode of arrival: ambulatory Limitations: no limitations History of Present Illness ED Provider: HPI narrative: patient is status post laparoscopic cholecystectomy on 10/22 comes here with diffuse abdominal pain has not moved his bowel since surgery no nausea no vomiting eating fine no fever no chills no urinary symptoms pain is diffuse Related Data Home Medications ?Medication ?Instructions ?Recorded ?Confirmed blood-glucose meter #1 ea 05/14/20 01/14/24 lancets #100 ea 05/14/20 01/14/24 atorvastatin 40 mg tablet 40 mg PO DAILY 12/19/22 10/20/24 dapagliflozin propanediol 10 mg 10 mg PO DAILY 12/19/22 10/20/24 tablet (Farxiga) apixaban 2.5 mg tablet (Eliquis) 2.5 mg PO BID 10/20/24 10/20/24 lisinopril 40 mg tablet 40 mg PO DAILY 10/20/24 10/20/24 Previous Rx's ?Medication ?Instructions ?Recorded blood sugar diagnostic #50 ea 01/24/21 calcitriol 0.25 mcg capsule 0.25 mcg PO Q2D #14 caps 10/17/24 ferrous sulfate 325 mg (65 mg 325 mg PO BID #60 tabs 10/17/24 iron) tablet cefuroxime axetil 500 mg tablet 500 mg PO BID 3 days #6 tabs 10/25/24 polyethylene glycol 3350 17 17 g PO DAILY #510 grams 10/26/24 gram/dose oral powder (Miralax) Allergies Allergy/AdvReac Type Severity Reaction Status Date / Time No Known Allergies Allergy Verified 10/26/24 01:44 [No Known Allergies*] Review of Systems Review of Systems Yes all other systems are reviewed and are negative PENDING SALE TO [facility] Past Medical History Medical History Stroke Chronic atrial fibrillation CHF (congestive heart failure) CKD (chronic kidney disease) Former smoker Depression Diabetes High cholesterol Hypertension Surgical History History of aneurysm History of shoulder surgery Family History Family History Father No problems noted. Mother Diabetes Hypertension Cancer Son No problems noted. Son No problems noted. Son No problems noted. Daughter No problems noted. Daughter No problems noted. Social History Social History Household Members: None Household Members Other:: Housing: Apartment Do you presently have visiting nurse or other home services: No Alcohol intake: never Patient Tobacco Use Status: Never used Tobacco Smoked in Last 30 Days: No Use of substances other than those prescribed or required for medical reasons: No Advance Directives: No Advance Directives Information Provided: Yes service: No Current occupational status: disabled Physical Exam ED Vital Signs: Vital Signs - 24 hr 10/26/24 01:43 10/26/24 03:59 10/26/24 05:55 Temperature 97.9 F 97.3 F 97.2 F Pulse Rate 84 67 Respiratory Rate 20 16 20 Blood Pressure 200/93 H 183/97 H 157/75 H Pulse Oximetry 96 94 96 Oxygen Delivery Method Room Air Room Air Room Air BMI result Body Mass Index 30.8 Appearance: Alert. Oriented X3. No acute distress. Eyes: No pallor or icterus ENT: Pharynx normal. Oral Mucosa moist Neck: Normal inspection. Neck supple. CVS: Normal heart rate and rhythm. Pulses normal. Respiratory: No respiratory distress. Equal air entry bilateral, no wheezing/rales/rhonchi Abdomen: Soft and diffuse tenderness no rebound tenderness or guarding. Bowel sounds are present, no mass palpable, no CVA tenderness Skin: Skin warm and dry. Normal skin color. Normal skin turgor. Extremities: No lower extremity edema. No calf tenderness rectal: Hard stool in the rectum Neuro: Oriented X 3. No motor deficit. Medical Decision Making Medical Decision Making [facility] Narrative: Patient with constipation post laparoscopic cholecystectomy patient is a small bowel movement after manual disimpaction feeling much better CT scan of the abdomen negative for acute will discharge patient home Differential Diagnosis Differential Diagnoses: The differential diagnosis associated with the presentation includes Lab Data [facility] Lab Attestation statement: I reviewed the patient's lab results. 10/26/24 01:55 10/26/24 01:55 Labs: Lab Results 10/26/24 10/26/24 Range/Units 01:55 03:47 WBC 6.9 (4.8-10.8) X10*3/uL RBC 5.51 (4.60-5.80) X10*6/uL Hgb 15.8 (14.0-18.0) g/dl Hct 45.4 (42.0-52.0) % MCV 82.4 (80.0-98.0) fL MCH 28.7 (27.0-33.0) pg MCHC 34.8 (31.0-36.0) g/dl RDW 14.0 (11.0-16.0) % Plt Count 215 (160-400) X10*3/uL MPV 8.7 L (9.4-12.4) fL Immature Gran % (Auto) 0.3 (0.0-0.4) % Neut % (Auto) 63.1 (45-73) % Lymph % (Auto) 26.8 (20-40) % [place] % (Auto) 8.4 (2-11) % Eos % (Auto) 1.3 (0-4) % Baso % (Auto) 0.1 (0-2) % Lymph # (Auto) 1.9 (1.2-4.9) X10*3/uL [place] # (Auto) 0.6 (0.1-1.2) X10*3/uL Eos # (Auto) 0.1 (0.0-0.4) X10*3/uL Baso # (Auto) 0.0 (0.0-0.2) X10*3/uL Abs Immat Gran (auto) 0.02 (0.00-0.03) X10*3/uL Absolute Neuts (auto) 4.4 (2.0-8.3) x10*3/uL Absolute Nucleated RBC 0.000 (0.0-0.012) X10*3/uL Nucleated RBC % (auto) 0.0 (0.0-0.2) /100WBC Sodium 142 (135-145) mmol/L Potassium 3.4 (3.3-5.1) mmol/L Chloride 105 (96-108) mmol/L Carbon Dioxide 23 (22-29) mmol/L Anion Gap 17 (12-20) BUN 41 H (9-16) mg/dL Creatinine 1.92 H (0.5-1.4) mg/dL Estim Creat Clear Calc 37.2 Estimated GFR 35 Random Glucose 126 H (60-115) mg/dL Calcium 9.3 (8.4-10.2) mg/dL Total Bilirubin 0.6 (0.0-1.0) mg/dL AST 56 H (5-37) U/L ALT 45 H (0-40) U/L Alkaline Phosphatase 116 (39-117) U/L Total Protein 7.4 (6.5-8.0) g/dL Albumin 3.5 (3.5-5.0) g/dL Urine Color Yellow Urine Appearance Clear Urine pH 6.0 (5.0-9.0) Ur Specific [place] 1.015 (1.005-1.025) Urine Protein 100 (2+) H (Neg-Trace) mg/dL Urine Glucose (UA) 500 H (Negative) mg/dL Urine Ketones Negative (Negative) mg/dL Urine Blood Negative (Negative) Urine Nitrite Negative (Negative) Ur Leukocyte Esterase Negative (Negative) Urine RBC 0-2 (0-2) /HPF Urine WBC 0-5 (0-5) /HPF Ur Squamous Epith Cells 0-2 (0-2) /HPF Urine Bacteria None Seen (None Seen) Hyaline Casts 0-2 (0-2) /LPF Independent Interpretation I performed an independent interpretation of an: CT Scan Radiology Impression Discussion of test interpretation with radiology: I have reviewed the radiologist's reading. Radiologist Impression: IMPRESSION: Interval cholecystectomy with trace fluid in the gallbladder fossa and small amount of free fluid in the pelvis. No organized fluid collection is identified. This document has been electronically signed by: Dorita Taylor on 10/26/2024 06:25:08 Medications Administered Discontinued Medications Generic Name Dose Route Start Last Admin Trade Name Freq PRN Reason Stop Dose Admin Bisacodyl 10 mg 10/26/24 03:05 10/26/24 03:51 Bisacodyl 5 Mg Tablet. PO 10/26/24 03:06 10 mg ONCE ONE Administration Bisacodyl 10 mg 10/26/24 03:48 10/26/24 03:51 Bisacodyl 5 Mg Tablet. PO 10/26/24 03:49 Not Given ONCE ONE Magnesium Hydroxide 30 ml 10/26/24 03:05 10/26/24 03:52 Milk Of Magnesia 30 Ml Oral.Susp PO 10/26/24 03:06 Not Given ONCE ONE Morphine Sulfate 2 mg 10/26/24 04:46 10/26/24 04:50 Morphine Sulfate 2 Mg/Ml Cartridge IVPUSH 10/26/24 04:47 2 mg ONCE ONE Administration Protocol Morphine Sulfate 2 mg 10/26/24 05:46 10/26/24 05:52 Morphine Sulfate 2 Mg/Ml Cartridge IVPUSH 10/26/24 05:47 2 mg ONCE ONE Administration Protocol Discharge Plan Discharge Clinical Impression: Constipation, Postoperative abdominal pain Patient Disposition: Home, Self-Care Instructions: Constipation (ED), Pain Management After Surgery (DC) Additional Instructions: Drink plenty of fluids MiraLax daily for constipation Follow up with your surgeon Prescriptions: New polyethylene glycol 3350 [Miralax] 17 gram/dose powder 17 g PO DAILY Qty: 510 0RF No Action (DME) blood sugar diagnostic Strip See Rx Instructions .ROUTE BID Qty: 50 11RF Rx Instructions: Use 1 test strip once a day atorvastatin 40 mg tablet 40 mg PO DAILY dapagliflozin propanediol [Farxiga] 10 mg tablet 10 mg PO DAILY Eliquis 2.5 mg tablet 2.5 mg PO BID lisinopril 40 mg tablet 40 mg PO DAILY cefuroxime axetil 500 mg tablet 500 mg PO BID 3 Days Qty: 6 0RF (DME) blood-glucose meter Misc See Rx Instructions PO BID Qty: 1 Rx Instructions: As directed (DME) lancets Misc See Rx Instructions .ROUTE BID Qty: 100 Rx Instructions: As directed ferrous sulfate 325 mg (65 mg iron) tablet 325 mg PO BID Qty: 60 4RF calcitriol 0.25 mcg capsule 0.25 mcg PO Q2D Qty: 14 6RF Print Language: Serbian
[2024-10-26 02:00] LABS: Basophils Percent Auto 0.1 % (0-2); Eosinophils Absolute Auto 0.1 X10*3/uL (0.0-0.4); Eosinophils Percent Auto 1.3 % (0-4); Hematocrit 45.4 % (42.0-52.0); Hemoglobin 15.8 g/dl (14.0-18.0); Imm Gran Abs Auto 0.02 X10*3/uL (0.00-0.03); Imm Gran Pct Auto 0.3 % (0.0-0.4); Lymphocytes Absolute Auto 1.9 X10*3/uL (1.2-4.9); Lymphocytes Percent Auto 26.8 % (20-40); MANUAL DIFF FLAG NO; Mean Corpuscular HGB Conc 34.8 g/dl (31.0-36.0); Mean Corpuscular Hemoglobin 28.7 pg (27.0-33.0); Mean Corpuscular Volume 82.4 fL (80.0-98.0); Mean Platelet Volume 8.7 fL (9.4-12.4); Monocytes Absolute Auto 0.6 X10*3/uL (0.1-1.2); Monocytes Percent Auto 8.4 % (2-11); Neutrophils Absolute Auto 4.4 x10*3/uL (2.0-8.3); Neutrophils Percent Auto 63.1 % (45-73); Platelet Count 215 X10*3/uL (160-400); Red Blood Count 5.51 X10*6/uL (4.60-5.80); White Blood Count 6.9 X10*3/uL (4.8-10.8)
[2024-10-26 02:19] LABS: Alanine Aminotransferase 45 U/L (0-40); Albumin Level 3.5 g/dL (3.5-5.0); Anion Gap 17 (12-20); Aspartate Amino Transferase 56 U/L (5-37); Bilirubin Total 0.6 mg/dL (0.0-1.0); Blood Urea Nitrogen 41 mg/dL (9-16); Calcium 9.3 mg/dL (8.4-10.2); Carbon Dioxide 23 mmol/L (22-29); Chloride 105 mmol/L (96-108); Creatinine Clr Calc Pharmacy 37.2; Estimated Glomerular Filt Rate 35; Glucose Random 126 mg/dL (60-115); Potassium 3.4 mmol/L (3.3-5.1); Sodium 142 mmol/L (135-145); Total Protein 7.4 g/dL (6.5-8.0)
[2024-10-26 02:48] LABS: Alkaline Phosphatase 116 U/L (39-117)
--- NOTE | 2024-10-26 03:40 | PC.NURSE ---
Pt refused medication, notified DMITRY Elaine
[2024-10-26] MEDS: bisacodyL 5 MG TABLET.DR 10 MG PO (03:51)
[2024-10-26 03:59] VITALS: BP 183/97; PULSE 67; RESP 16; TEMP 36.3; O2SAT 94
[2024-10-26 04:01] LABS: Appearance Urine Clear; Color Urine Yellow; Glucose Urine UA 500 mg/dL (Negative); Leukocyte Esterase Urine Negative (Negative); Nitrite Urine Negative (Negative); Specific Gravity - Urine 1.015 (1.005-1.025); UMIC TRIGGER UACC YES; Urine Blood Negative (Negative); Urine Ketones Negative (Negative); Urine Protein 100 (2+) mg/dL (Neg-Trace)
[2024-10-26 04:05] LABS: Bacteria Urine None Seen (None Seen); Hyaline Casts Urine 0-2 /LPF (0-2); RBC Urine 0-2 /HPF (0-2); Squamous Epithelial Cell Urine 0-2 /HPF (0-2); WBC Urine 0-5 /HPF (0-5)
[2024-10-26] MEDS: Morphine Sulfate 2 MG/ML CARTRIDGE IVPUSH ×2 (04:50→05:52)
[2024-10-26 05:55] VITALS: BP 157/75; RESP 20; TEMP 36.2; O2SAT 96
== END 2024-10-26 07:05 | disposition home or self-care (01) ==
PROVIDERS: Emergency Provider Internal Medicine; PCP Nurse Practitioner Family
DX: K59.00 Constipation, unspecified (principal); G89.18 Other acute postprocedural pain; R10.9 Unspecified abdominal pain; Z90.49 Acquired absence of other specified parts of digestive tract; E11.22 Type 2 diabetes mellitus with diabetic chronic kidney disease; I13.0 Hypertensive heart and chronic kidney disease with heart failure and stage 1 through stage 4 chronic kidney disease, or unspecified chronic kidney disease; N18.4 Chronic kidney disease, stage 4 (severe); I50.9 Heart failure, unspecified; E78.00 Pure hypercholesterolemia, unspecified; I48.20 Chronic atrial fibrillation, unspecified; Z87.891 Personal history of nicotine dependence; Z79.899 Other long term (current) drug therapy; Z79.01 Long term (current) use of anticoagulants
CPT/HCPCS: 36415; 74018; 74176; 80053; 81001; 85025; 96374; 96376; 99284; J2270

== ENCOUNTER → 2024-10-26 01:58 | Outpatient (BNV) | payer OTHER, MEDICAID, SELFPAY | PROVIDERS: Emergency Provider Internal Medicine; PCP Student in an Organized Health Care Education/Training Program; Visit Provider Radiology Diagnostic Radiology | DX: R10.9 Unspecified abdominal pain (principal); K56.41 Fecal impaction; R14.0 Abdominal distension (gaseous) | CPT/HCPCS: 74018; 74176 ==

== ENCOUNTER 2024-11-12 11:13 | Inpatient (IN) | payer OTHER, SELFPAY ==
--- NOTE | ~2024-11-12 | US_ITS ---
EXAMINATION: US GUIDED PARACENTESIS CLINICAL INFORMATION: Small volume ascites, abdominal pain, diagnostic tap. COMPARISON: Correlation made with abdomen ultrasound earlier same day, and CT abdomen and pelvis 11/12/2024. PROCEDURE DETAILS: Following the discussion of the risks, benefits and alternatives to the procedure, written informed consent was obtained from the patient. The patient was placed supine on the exam table. A preprocedure time-out was performed per [facility] protocol. The central lower quadrant was marked, using ultrasound guidance, prepped and draped using sterile fashion. Attention was made to the location of the epigastric vessels, which were avoided. Using an ultrasound to identify the largest pocket of fluid to safely access, the central lower quadrant overlying skin was marked for paracentesis. Skin and subcutaneous tissues were anesthetized with 7 mL of 1% lidocaine sterile solution. Subsequently, a 5-Maltese trochar catheter (adflyer) was advanced into the ascites and upon aspiration of fluid, trocar was removed, and catheter left in place. The catheter was connected to Vacutainer suction. 245 mL of somewhat cloudy yellow fluid was drained via vacuum bottle. The patient tolerated the procedure well without complications. The catheter was removed, area cleansed, puncture site sealed with Dermabond, and a sterile dressing applied. Ascitic samples were sent to laboratory for analysis. Patient tolerated the procedure well with no immediate complication. FINDINGS: Small volume abdominopelvic ascites. US/US paracentesis abd w/image IMPRESSION: Central lower abdomen diagnostic paracentesis, yielding 245 mL of cloudy yellowish ascites. Electronically signed by: Jack Shah MD 11/13/2024 04:34 PM EDT
--- NOTE | ~2024-11-12 | CT_ITS ---
EXAMINATION: CT ABDOMEN AND PELVIS WITHOUT CONTRAST CLINICAL INFORMATION: Right lower quadrant abdominal pain. CKD. COMPARISON: 10/26/2024. 10/20/2024. TECHNIQUE: Multidetector volumetric imaging was performed from the superior aspect of the liver through the pubic symphysis. Sagittal and coronal reformatted images were obtained on the technologist's workstation. This CT examination was performed using dose optimization techniques as appropriate, variously including the following: *Automated exposure control *Adjustment of mA and/or kV according to patient size (this includes techniques or standardized protocols for targeted exams where dose is matched to indication/reason for exam; i.e. extremities or head) *Use of iterative reconstruction technique FINDINGS: LUNG BASES: Motion degraded. There is mild subsegmental atelectasis dependently in both lung bases. There is mild mosaic attenuation present. There are no effusions. There is mild cardiac enlargement. Somewhat patulous appearing esophagus. There is a small type I hiatus hernia. LIVER, GALLBLADDER, AND BILIARY TREE: The unenhanced liver has a cirrhotic morphology. There is no focal lesion. There is a small to moderate amount of perihepatic ascites. There has been a cholecystectomy. There is no intra or extrahepatic biliary dilatation. PANCREAS: Mild atrophy. No lesion. SPLEEN: Normal in the appearance. Trace perisplenic ascites. ADRENAL GLANDS: Bilateral hyperplasia.. KIDNEYS AND URETERS: The kidneys are normal in size, shape, and attenuation. No hydronephrosis, hydroureter, or calculi seen. No perinephric stranding. PERITONEUM: There are small to moderate volume intraperitoneal ascites. There is no free intraperitoneal air. BLADDER: Normal in appearance. GASTROINTESTINAL TRACT: There is short segment thickening and inflammation of the ascending colon and cecum. The remainder of the colon is unremarkable in appearance with mild gaseous distention. Mild wall thickening of the sigmoid and rectum noted. The more proximal small bowel is normal in caliber and course. There are no CT features of acute appendicitis. Appendix itself is poorly seen. ABDOMINAL WALL: No significant hernia is appreciated. LYMPH NODES: None enlarged by size criteria. VASCULAR: Moderate atheromatous calcification of the arterial structures. No aneurysm. 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 There are small splenic and small gastric varices. PELVIC VISCERA: Moderate prostate enlargement, with diameter estimated at 4.6 cm. There are eccentric central calcifications. OSSEOUS STRUCTURES: There is no suspicious lytic or blastic bone lesion. There are degenerative changes throughout the spine and involving both hip joints. CT/CT abdomen pelvis wo IV con IMPRESSION: 1. Wall thickening and inflammation of a the cecum and ascending colon. Findings are suggestive of infectious/inflammatory segmental colitis. There is also mild wall thickening of the descending colon, sigmoid colon and rectum, uncertain significance. Major differential would include colonic wall thickening related to portal hypertension. 2. Small to moderate volume intraperitoneal ascites. This is most notable abutting the liver. 3. Cirrhotic morphology of the liver. No suspicious liver lesion on this unenhanced exam. 4. Cholecystectomy. 5. Additional Ancillary findings as discussed. Electronically signed by: Jack Shah MD 11/12/2024 01:39 PM EDT
--- NOTE | ~2024-11-12 | MR_ITS ---
CLINICAL HISTORY: recent CCY, abdominal pain, elevated LFTs Pt difficulty with bh. Breathing artifac t throughout. Rpt images attempted. MRCP without intravenous contrast Comparison: CT of the abdomen from 10/26/2024. No interim imaging available at this time. Findings: Multiple sequences demonstrate artifacts including respiratory motion artifacts. Large fluid collection of the lateral and superior margin of the liver measures 16.5 x 9.6 x 22 cm. Differential considerations include intracapsular blood products, seroma, and purulent fluid such as liver abscess in this noncontrast study. No diffusion imaging available for additional differentiation. Hematoma of the considered most likely with additional fluid and blood products extending inferiorly with extracapsular extension concerning for extracapsular blood products and/or rupture (coronal image 15 of series 5). Abscess extension also considered. Imaged CBD is nondilated measuring 6 mm diameter. Minimal-borderline dilatation of the partially imaged pancreatic duct with small side branch IPMNs in this noncontrast study. No definite choledocholithiasis. Gallbladder is surgically absent. Mass-effect compresses of the liver and deviates the liver to the left with small cystic change of the liver including 5 mm in the left lobe. Small cystic lesions of the kidneys also noted. No further characterize without contrast. No hydronephrosis. The adrenal glands are within normal limits. Moderate to severe volume loss of the pancreas with borderline ductal dilatation. The spleen is nonenlarged. No small bowel obstruction in the [id number]. Additional free fluid is partially imaged in the abdomen. Subcutaneous edema is also noted. Large right pleural effusion small left pleural effusion with underlying atelectasis/consolidation. Moderate cardiomegaly partially imaged with multi chamber enlargement of the heart. Mixed signal supports calcified and noncalcified plaque of the imaged aorta and its branches. Degenerative changes involve the imaged spine. IMPRESSION: 1. Large fluid collection in the right upper quadrant includes intracapsular fluid of the mass-effect against of the liver. Differential considerations include perihepatic abscess and large hematoma. 2. Extracapsular accentuated of the and/or rupture is demonstrated inferiorly in this MRI with motion artifacts. 3. Large right pleural effusion with bibasilar atelectasis/consolidation of the imaged lung bases. 4. No choledocholithiasis by MRCP. 5. Post cholecystectomy. This document has been electronically signed by: Karthikeyan Zazueta MD on 11/15/2024 20:36:30
--- NOTE | ~2024-11-12 | CT_ITS ---
EXAMINATION: CT-guided pericapsular liver drainage. CLINICAL INDICATION. Increasing right pericapsular liver fluid collection. Recent cholecystectomy COMPARISON: MRCP 11/15/2024. TECHNIQUE: Following explaining CT fluoroscopy guided right pericapsular external drainage and likely placement of a catheter procedure, benefits and risk were explained. Patient was placed supine on CT table and limited CT imaging was obtained. An optimal site was selected along the right lateral abdomen and spenser is placed and patient was scanned again. An optimal marker was selected and marked on the skin. The site was prepped and draped in usual sterile manner. 1% lidocaine was administered puncture site. There is small skin incision a 5 [place] [employer] catheter was advanced into the right pericapsular fluid collection. After observing fluid return and and draining some fluid and repeat scanning was no decrease in the size of the fluid contents a 6.1 [place] drainage catheter was inserted and placed in the pericapsular fluid collection. Repeat scanning was obtained for confirmation and placement of the catheter. Catheter was anchored to the skin with StatLock and Tegaderm. The catheter was connected to drainage bag via a valve and connecting cannula. FINDINGS/ CT/CT guided drainage IMPRESSION: Successful CT fluoroscopy guided pericapsular liver drainage catheter placement without immediate complication. No conscious sedation was utilized. Limited The perihepatic drainage is bilious, ?biliary leak. Results were immediately conveyed during insertion catheter by IR nurse to the referring physician Electronically signed by: Cedric Han MD 11/17/2024 05:14 PM EDT
--- NOTE | ~2024-11-12 | US_ITS ---
EXAMINATION: US ABDOMEN LIMITED CLINICAL INFORMATION: Ascites check. Abdominal pain. COMPARISON: None available. Refer to the dedicated CT abdomen and pelvis 11/12/2024. TECHNIQUE: Real-time imaging of the right upper quadrant abdominal viscera. FINDINGS: Hepatic cirrhosis. Cholecystectomy. No intra or extrahepatic biliary dilatation. The common duct measures 0.4 cm. There is small volume ascites in the inferior central abdomen. US/US abdomen limited IMPRESSION: Small volume ascites present. Electronically signed by: Jack Shah MD 11/13/2024 04:30 PM EDT
--- NOTE | ~2024-11-12 | FL_ITS ---
EXAMINATION: FL GUIDANCE ONLY HISTORY: ERCP COMPARISON: Correlation is made with an MRI of the abdomen dated 11/15/2024. TECHNIQUE: Fluoroscopy time: 26.4 seconds. Cumulative Dose: 4.8501 mGy. DAP: 2.1097 mGym2 Images: 7. FINDINGS: Images demonstrate opacification of the common bile duct, cystic duct, and central intrahepatic biliary radicles. There is extravasation of contrast from the cystic duct. The final image demonstrates a stent in place. FL/FL guidance in OR IMPRESSION: Fluoroscopy during procedure. Please see procedure report for additional information. Electronically signed by: Cornelio Flores MD 11/19/2024 03:17 PM EDT
--- NOTE | ~2024-11-12 | NM_ITS ---
CLINICAL HISTORY: s p cholecystectomy, ?bile leak NM HIDA Scan Comparison: MR/SC - MR MRCP - 11/15/24 19:[address]/SR - CT ABDOMEN PELVIS WO IV CON - 10/26/24 04:55 EDT Technique: s p cholecystectomy, ?bile leak (Hx) / BILE LEAK 0-60MIN (DICOM Hx) (DICOM Hx) Findings: Serial imaging up to 60 minuteswas performed following the intravenous administration of 5 mCi tc 99m mebrofenin. Static images were obtained at 1 and 2 hours. There is prompt activity in the liver, biliary tree and small bowel. There is abnormal accumulation of radioisotope in the perihepatic region. Gallbladder is not visualized consistent with cholecystectomy. IMPRESSION: Positive for a biliary leak. This document has been electronically signed by: Jael Teran DO on 11/17/2024 18:21:10
[2024-11-12 11:22] VITALS: BP 164/98; PULSE 96
--- NOTE | 2024-11-12 11:27 | ED_ITS ---
HPI - Abdominal Pain General Chief Complaint: Abdominal Pain Stated Complaint: R ABD PAIN,HOT/COLD SWEATS,NO MEDS TODAY PER EMS Time Seen by Provider: 11/12/24 11:22 Source: patient Limitations: no limitations History of Present Illness HPI narrative: This is a 74 years old male presented to the emergency department with right lower quadrant abdominal pain the pain is ongoing for about a week. Patient is status post cholecystectomy on October [address] Smith. elicited complaint: abdominal pain Pertinent past history: other (History of diabetes history of hypertension) Onset (ago): week(s) Pain Consistency: constant Location: RLQ Severity: moderate Quality: cramping Radiation: RLQ Migration to: no migration Exacerbating factors: nothing Relieving factors: nothing Associated symptoms: denies other symptoms Related Data Home Medications ?Medication ?Instructions ?Recorded ?Confirmed blood-glucose meter #1 ea 05/14/20 01/14/24 lancets #100 ea 05/14/20 01/14/24 atorvastatin 40 mg tablet 40 mg PO DAILY 12/19/22 10/20/24 dapagliflozin propanediol 10 mg 10 mg PO DAILY 12/19/22 10/20/24 tablet (Farxiga) apixaban 2.5 mg tablet (Eliquis) 2.5 mg PO BID 10/20/24 10/20/24 lisinopril 40 mg tablet 40 mg PO DAILY 10/20/24 10/20/24 Previous Rx's ?Medication ?Instructions ?Recorded blood sugar diagnostic #50 ea 01/24/21 calcitriol 0.25 mcg capsule 0.25 mcg PO Q2D #14 caps 10/17/24 ferrous sulfate 325 mg (65 mg 325 mg PO BID #60 tabs 10/17/24 iron) tablet cefuroxime axetil 500 mg tablet 500 mg PO BID 3 days #6 tabs 10/25/24 polyethylene glycol 3350 17 17 g PO DAILY #510 grams 10/26/24 gram/dose oral powder (Miralax) Allergies Allergy/AdvReac Type Severity Reaction Status Date / Time No Known Allergies Allergy Verified 11/12/24 11:36 [No Known Allergies*] Review of Systems Constitutional: Reports no additional constitutional complaints Cardiovascular: Reports no additional cardiovascular complaints Gastrointestinal: Reports abdominal pain PMFSH Past Medical History Attestation statement: The following information was validated with the patient. Medical History Obesity (BMI 30.0-34.9) Cardiomyopathy CKD (chronic kidney disease) Stroke Chronic atrial fibrillation CHF (congestive heart failure) CKD (chronic kidney disease) Former smoker Depression Diabetes High cholesterol Hypertension Surgical History History of aneurysm History of shoulder surgery Family History Family History Father No problems noted. Mother Diabetes Hypertension Cancer Son No problems noted. Son No problems noted. Son No problems noted. Daughter No problems noted. Daughter No problems noted. Social History Social History Household Members: None Household Members Other:: Housing: Apartment Do you presently have visiting nurse or other home services: No Alcohol intake: never Patient Tobacco Use Status: Never used Tobacco Smoked in Last 30 Days: No Use of substances other than those prescribed or required for medical reasons: No Advance Directives: No Advance Directives Information Provided: Yes Do you have a plan to hurt others: No Plan service: No Current occupational status: disabled Physical Exam ED Vital Signs: Vital Signs - 24 hr 11/12/24 11:35 11/12/24 11:38 Temperature 98.0 F 98.0 F Pulse Rate 115 H 115 H Respiratory Rate 17 17 Blood Pressure 182/82 H 182/82 H Pulse Oximetry 97 97 Oxygen Delivery Method Room Air Room Air BMI result Body Mass Index 29.7 Patient looks well he is not toxic-appearing sitting in the stretcher in not acute distress Const General: cooperative Nutritional Appearance: average body habitus Orientation/consciousness: patient oriented x3 HENMT Head: Yes normal to inspection Ears: hearing grossly normal bilaterally Face and sinus: Yes normal facial exam Neck Neck: Yes normal visual inspection Chest Chest palpation & inspection: normal inspection of the chest Resp Effort & Inspection: normal respiratory effort Auscultation: clear to auscultation bilaterally Cardio Jugular venous distension: no JVD Rhythm: regular rhythm GI Inspection: Yes normal to inspection Palpation (GI): Soft to palpation and Tenderness to palpation present (GI) (Right lower quadrant tenderness) Auscultation: normal bowel sounds General: Yes no CVA tenderness Back/Spine/Pelvis Back: no CVA tenderness Skin General skin exam: no rashes or lesions noted Lesions: no lesions Rashes: no rashes Neuro General: patient oriented x3 Course Reevaluation(s) Reevaluation #1: spoke with daughter spoke with Dr Ge who accept the pt Time: 14:22 Medical Decision Making Medical Decision Making [facility] Narrative: Patient is here with the abdominal pain we will get labs imaging Differential Diagnosis Differential Diagnoses: The differential diagnosis associated with the presentation includes Appendicitis/colitis/diverticulitis/small-bowel obstruction Admission/Observation Consideration of admission/observation: Escalation of care including admission/observation considered Consult Healthcare Provider Management of the patient was discussed with: Hospitalist Lab Data [facility] Lab Attestation statement: I reviewed the patient's lab results. 11/12/24 12:24 11/12/24 12:24 Labs: Lab Results 11/12/24 Range/Units 12:24 WBC 17.0 H (4.8-10.8) X10*3/uL RBC 4.94 (4.60-5.80) X10*6/uL Hgb 14.3 (14.0-18.0) g/dl Hct 41.7 L (42.0-52.0) % MCV 84.4 (80.0-98.0) fL MCH 28.9 (27.0-33.0) pg MCHC 34.3 (31.0-36.0) g/dl RDW 15.1 (11.0-16.0) % Plt Count 439 H D (160-400) X10*3/uL MPV 8.5 L (9.4-12.4) fL Immature Gran % (Auto) 0.9 H (0.0-0.4) % Neut % (Auto) 92.5 H (45-73) % Lymph % (Auto) 2.6 L (20-40) % Grady % (Auto) 3.8 (2-11) % Eos % (Auto) 0.1 (0-4) % Baso % (Auto) 0.1 (0-2) % Lymph # (Auto) 0.4 L (1.2-4.9) X10*3/uL Grady # (Auto) 0.7 (0.1-1.2) X10*3/uL Eos # (Auto) 0.0 (0.0-0.4) X10*3/uL Baso # (Auto) 0.0 (0.0-0.2) X10*3/uL Abs Immat Gran (auto) 0.15 H (0.00-0.03) X10*3/uL Absolute Neuts (auto) 15.7 H (2.0-8.3) x10*3/uL Absolute Nucleated RBC 0.000 (0.0-0.012) X10*3/uL Nucleated RBC % (auto) 0.0 (0.0-0.2) /100WBC Smear Tech's Comments VERIFIED Sodium 137 (135-145) mmol/L Potassium 3.7 (3.3-5.1) mmol/L Chloride 104 (96-108) mmol/L Carbon Dioxide 23 (22-29) mmol/L Anion Gap 14 (12-20) BUN 109 H (9-16) mg/dL Creatinine 3.36 H (0.5-1.4) mg/dL Estim Creat Clear Calc 20.8 Estimated GFR 18 Random Glucose 166 H (60-115) mg/dL Calcium 9.6 (8.4-10.2) mg/dL Total Bilirubin 1.4 H (0.0-1.0) mg/dL AST 41 H (5-37) U/L ALT 36 (0-40) U/L Alkaline Phosphatase 806 H (39-117) U/L Total Protein 7.1 (6.5-8.0) g/dL Albumin 2.8 L (3.5-5.0) g/dL Lipase 16 (8-78) U/L Independent Interpretation I performed an independent interpretation of an: CT Scan Radiology Impression Discussion of test interpretation with radiology: I have reviewed the radiologist's reading. Radiologist Impression: 1. Wall thickening and inflammation of a the cecum and ascending colon. Findings are suggestive of infectious/inflammatory segmental colitis. There is also mild wall thickening of the descending colon, sigmoid colon and rectum, uncertain significance. Major differential would include colonic wall thickening related to portal hypertension. 2. Small to moderate volume intraperitoneal ascites. This is most notable abutting the liver. 3. Cirrhotic morphology of the liver. No suspicious liver lesion on this unenhanced exam. 4. Cholecystectomy. 5. Additional Ancillary findings as discussed. Electronically signed by: Jack Shah MD 11/12/2024:39 PM EDT Medications Administered Generic Name Dose Route Start Last Admin Trade Name Freq PRN Reason Stop Dose Admin Sodium Chloride 1,000 mls @ 999 mls/hr 11/12/24 13:30 11/12/24 13:30 Ns IVCONT 11/12/24 14:30 999 mls/hr .Q1H1M SHAUNNA Administration Discontinued Medications Generic Name Dose Route Start Last Admin Trade Name Freq PRN Reason Stop Dose Admin Diatrizoate Meglum/Diatrizoate Sod 30 ml 11/12/24 13:11 11/12/24 13:11 Diatrizoate Meglumine, Sodium 30 Ml Solution PO 11/12/24 13:12 30 ml ONCE ONE Administration Morphine Sulfate 4 mg 11/12/24 11:26 11/12/24 11:49 Morphine Sulfate 4 Mg/Ml Cartridge IVPUSH 11/12/24 11:27 4 mg ONCE ONE Administration Protocol Ondansetron HCl 4 mg 11/12/24 11:26 11/12/24 11:50 Ondansetron Hcl 4 Mg/2 Ml Vial IVPUSH 11/12/24 11:27 4 mg ONCE ONE Administration Discharge Plan Discharge Clinical Impression: Colitis, KELSEY (acute kidney injury) Patient Disposition: Admitted As Inpatient Print Language: Irish
[2024-11-12 11:35] VITALS: BP 182/82; PULSE 115; RESP 17; TEMP 36.7; O2SAT 97; BMI 29.7
[2024-11-12 11:38] VITALS: BP 182/82; PULSE 115; RESP 17; TEMP 36.7; O2SAT 97
[2024-11-12] MEDS: Morphine Sulfate 4 MG/ML CARTRIDGE IVPUSH (11:49)
[2024-11-12] MEDS: ondansetron HCL 4 MG/2 ML VIAL IVPUSH (11:50)
[2024-11-12 12:31] LABS: Basophils Percent Auto 0.1 % (0-2); Eosinophils Percent Auto 0.1 % (0-4); Hematocrit 41.7 % (42.0-52.0); Hemoglobin 14.3 g/dl (14.0-18.0); Imm Gran Abs Auto 0.15 X10*3/uL (0.00-0.03); Imm Gran Pct Auto 0.9 % (0.0-0.4); Lymphocytes Absolute Auto 0.4 X10*3/uL (1.2-4.9); Lymphocytes Percent Auto 2.6 % (20-40); MANUAL DIFF FLAG SCAN; Mean Corpuscular HGB Conc 34.3 g/dl (31.0-36.0); Mean Corpuscular Hemoglobin 28.9 pg (27.0-33.0); Mean Corpuscular Volume 84.4 fL (80.0-98.0); Mean Platelet Volume 8.5 fL (9.4-12.4); Monocytes Absolute Auto 0.7 X10*3/uL (0.1-1.2); Monocytes Percent Auto 3.8 % (2-11); Neutrophils Absolute Auto 15.7 x10*3/uL (2.0-8.3); Neutrophils Percent Auto 92.5 % (45-73); Platelet Count 439 X10*3/uL (160-400); Red Blood Count 4.94 X10*6/uL (4.60-5.80); Red Cell Distribution Width 15.1 % (11.0-16.0); SCAN SMEAR FLAG 1
[2024-11-12 12:43] LABS: Alanine Aminotransferase 36 U/L (0-40); Albumin Level 2.8 g/dL (3.5-5.0); Alkaline Phosphatase 806 U/L (39-117); Anion Gap 14 (12-20); Aspartate Amino Transferase 41 U/L (5-37); Bilirubin Total 1.4 mg/dL (0.0-1.0); Blood Urea Nitrogen 109 mg/dL (9-16); Calcium 9.6 mg/dL (8.4-10.2); Carbon Dioxide 23 mmol/L (22-29); Chloride 104 mmol/L (96-108); Creatinine Clr Calc Pharmacy 20.8; Estimated Glomerular Filt Rate 18; Glucose Random 166 mg/dL (60-115); Lipase 16 U/L (8-78); Potassium 3.7 mmol/L (3.3-5.1); Sodium 137 mmol/L (135-145); Total Protein 7.1 g/dL (6.5-8.0)
[2024-11-12 12:50] LABS: SLIDE REVIEW VERIFIED
[2024-11-12] MEDS: Diatrizoate Meglumine, Sodium 30 ML SOLUTION PO (13:11)
[2024-11-12] MEDS: 0.9 % Sodium Chloride 1,000 ML 999 ML IVCONT (13:30)
--- OUTSIDE RECORDS SUMMARY | 2024-11-12 14:16 | XMS_ITS | Encounter Summary ---
Author Organization [employer] Address [address] [place] [address] Care Team Providers Care Mannequin Coloring Artist Name Role Phone Cynthia Marshall NP Primary Care Provider [phone] Encounter Details Date Type Department Care Team ([facility] st Contact Info) Description 09/26/2024 Orders Only [facility] MEDICINE [address] [place], [place] [phone] Cynthia Marshall NP [address] [place] [address] Stage 3b chronic kidney disease (CMS/HCC) Social [...] documented as of this encounter Care Teams Mannequin Coloring Artist Relationship Specialty Start Date End Date Cynthia Marshall NP [address] [place] [id number] PCP - General Family Medicine 09/10/23 documented as of this encounter
--- OUTSIDE RECORDS SUMMARY | 2024-11-12 14:16 | XMS_ITS | Encounter Summary ---
Author Organization [employer] Address [address] [place] [address] Care Team Providers Care Accounts Executive Name Role Phone Cynthia Marshall NP Primary Care Provider [phone] Encounter Details Date Type Department Care Team (Late st Contact Info) Description 11/12/2024 Orders Only [facility] External Provider, [facility] Social History Tobacco Use Types Packs/Day Years [...] Procedure Name Priority Date/Time Associated Diagnosis Comments CT ABDOMEN PELVIS WO CONTRAST Routine 11/12/2024 11:24 AM EDT documented in this encounter Results * CT Abdomen Pelvis w/o Contrast (11/12/2024 11:24 AM EDT) Anatomical Region Laterality Modality Body, Pelvis, Abdomen Computed T omography 11/12/2024 11:2 4 AM EDT Narrative 11/12/2024 1:42 PM EDT ? [facility] ?[address] ?[place] [address] ? CT Scan Report ? Signed ? Patient: Cristina,Ethan ?MR#: [id number] ?? 0 ? : 1950 ?Acct:[id number] ? Age/Sex: 74 / M ?ADM Date: 11/12/24 ? Loc: HO.ED ? Attending Dr: ? Ordering Physician: Ankit Hardin MD ?? Date of Service: 11/12/24 ?? Procedure(s): CT abdomen pelvis wo IV con ?? Accession Number(s): [id number] ? cc: Ankit Hardin MD; Blanca Crowley MD ? Report Number: ?? [id number]: Total DLP = ??932.00 mGy-cm ?? EXAMINATION: ?? CT ABDOMEN AND PELVIS WITHOUT CONTRAST ? CLINICAL INFORMATION: ?? Right lower quadrant abdominal pain. CKD. ? COMPARISON: ?? 10/26/2024. 10/20/2024. ? TECHNIQUE: ?? Multidetector volumetric imaging was performed from the superior aspect ?? of the liver through the pubic symphysis. Sagittal and coronal ?? reformatted images were obtained on the technologist's workstation. ? This CT examination was performed using dose optimization techniques as ?? appropriate, variously including the following: ?? *Automated exposure control ?? *Adjustment of mA and/or kV according to patient size (this includes ?? techniques or standardized protocols for targeted exams where dose is ?? matched to indication/reason for exam; i.e. extremities or head) ?? *Use of iterative reconstruction technique ? FINDINGS: ?? LUNG BASES: ?? Motion degraded. There is mild subsegmental atelectasis dependently in ?? both lung bases. There is mild mosaic attenuation present. There are no ?? effusions. ?? There is mild cardiac enlargement. ?? Somewhat patulous appearing esophagus. ??There is a small type I hiatus ?? hernia. ? LIVER, GALLBLADDER, AND BILIARY TREE: The unenhanced liver has a ?? cirrhotic morphology. There is no focal lesion. There is a small to ?? moderate amount of perihepatic ascites. There has been a ?? cholecystectomy. There is no intra or extrahepatic biliary dilatation. ? PANCREAS: Mild atrophy. No lesion. ? SPLEEN: Normal in the appearance. Trace perisplenic ascites. ? ADRENAL GLANDS: Bilateral hyperplasia.. ? KIDNEYS AND URETERS: The kidneys are normal in size, shape, and ?? attenuation. No hydronephrosis, hydroureter, or calculi seen. No ?? perinephric stranding. ? PERITONEUM: ?? There are small to moderate volume intraperitoneal ascites. ?? There is no free intraperitoneal air. ? BLADDER: Normal in appearance. ? GASTROINTESTINAL TRACT: ?? There is short segment thickening and inflammation of the ascending ?? colon and cecum. ?? The remainder of the colon is unremarkable in appearance with mild ?? gaseous distention. ?? Mild wall thickening of the sigmoid and rectum noted. ?? The more proximal small bowel is normal in caliber and course. ? There are no CT features of acute appendicitis. Appendix itself is ?? poorly seen. ? ABDOMINAL WALL: No significant hernia is appreciated. ? LYMPH NODES: None enlarged by size criteria. ? VASCULAR: Moderate atheromatous calcification of the arterial ?? structures. No aneurysm. ?? 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 There are small splenic and small gastric ?? varices. ? PELVIC VISCERA: ?? Moderate prostate enlargement, with diameter estimated at 4.6 cm. There ?? are eccentric central calcifications. ? OSSEOUS STRUCTURES: ?? There is no suspicious lytic or blastic bone lesion. There are ?? degenerative changes throughout the spine and involving both hip ?? joints. ? CT/CT abdomen pelvis wo IV con ?? IMPRESSION: ? 1. Wall thickening and inflammation of a the cecum and ascending colon. ?? Findings are suggestive of infectious/inflammatory segmental colitis. ?? There is also mild wall thickening of the descending colon, sigmoid ?? colon and rectum, uncertain significance. Major differential would ?? include colonic wall thickening related to portal hypertension. ?? 2. Small to moderate volume intraperitoneal ascites. This is most ?? notable abutting the liver. ?? 3. Cirrhotic morphology of the liver. No suspicious liver lesion on ?? this unenhanced exam. ?? 4. Cholecystectomy. ?? 5. Additional Ancillary findings as discussed. ? Electronically signed by: ??Jack Shah MD ??11/12/2024 01:39 PM EDT RP ? Dictated By: ?Jack Shah MD ? Signed By: ?<Electronically signed by Jack Shah MD in OV> ?11/12/24 1339 ? DD/ 1124 ? TD/TT: 11/12/24 1316 ? Machine Repairer: ? Procedure Note Carmine Mcdonald - 11/12/[address] [address] [address] Scan Report Signed Patient: Tobin Cristina#: [id number] 0 : 3Acct:[id number] Age/Sex: 74 / MADM Date: 11/12/24 Loc: HO.ED Attending Dr: Ordering Physician: Ankit Hardin MD Date of Service: 11/12/24 Procedure(s): CT abdomen pelvis wo IV con Accession Number(s): [id number] cc: Ankit Hardin MD; Blanca Crowley MD Report Number: [id number]: Total DLP = 932.00 mGy-cm EXAMINATION: CT ABDOMEN AND PELVIS WITHOUT CONTRAST CLINICAL INFORMATION: Right lower quadrant abdominal pain. CKD. COMPARISON: 10/26/2024. 10/20/2024. TECHNIQUE: Multidetector volumetric imaging was performed from the superior aspect of the liver through the pubic symphysis. Sagittal and coronal reformatted images were obtained on the technologist's workstation. This CT examination was performed using dose optimization techniques as appropriate, variously including the following: *Automated exposure control *Adjustment of mA and/or kV according to patient size (this includes techniques or standardized protocols for targeted exams where dose is matched to indication/reason for exam; i.e. extremities or head) *Use of iterative reconstruction technique FINDINGS: LUNG BASES: Motion degraded. There is mild subsegmental atelectasis dependently in both lung bases. There is mild mosaic attenuation present. There are no effusions. There is mild cardiac enlargement. Somewhat patulous appearing esophagus. There is a small type I hiatus hernia. LIVER, GALLBLADDER, AND BILIARY TREE: The unenhanced liver has a cirrhotic morphology. There is no focal lesion. There is a small to moderate amount of perihepatic ascites. There has been a cholecystectomy. There is no intra or extrahepatic biliary dilatation. PANCREAS: Mild atrophy. No lesion. SPLEEN: Normal in the appearance. Trace perisplenic ascites. ADRENAL GLANDS: Bilateral hyperplasia.. KIDNEYS AND URETERS: The kidneys are normal in size, shape, and attenuation. No hydronephrosis, hydroureter, or calculi seen. No perinephric stranding. PERITONEUM: There are small to moderate volume intraperitoneal ascites. There is no free intraperitoneal air. BLADDER: Normal in appearance. GASTROINTESTINAL TRACT: There is short segment thickening and inflammation of the ascending colon and cecum. The remainder of the colon is unremarkable in appearance with mild gaseous distention. Mild wall thickening of the sigmoid and rectum noted. The more proximal small bowel is normal in caliber and course. There are no CT features of acute appendicitis. Appendix itself is poorly seen. ABDOMINAL WALL: No significant hernia is appreciated. LYMPH NODES: None enlarged by size criteria. VASCULAR: Moderate atheromatous calcification of the arterial structures. No aneurysm. 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 There are small splenic and small gastric varices. PELVIC VISCERA: Moderate prostate enlargement, with diameter estimated at 4.6 cm. There are eccentric central calcifications. OSSEOUS STRUCTURES: There is no suspicious lytic or blastic bone lesion. There are degenerative changes throughout the spine and involving both hip joints. CT/CT abdomen pelvis wo IV con IMPRESSION: 1. Wall thickening and inflammation of a the cecum and ascending colon. Findings are suggestive of infectious/inflammatory segmental colitis. There is also mild wall thickening of the descending colon, sigmoid colon and rectum, uncertain significance. Major differential would include colonic wall thickening related to portal hypertension. 2. Small to moderate volume intraperitoneal ascites. This is most notable abutting the liver. 3. Cirrhotic morphology of the liver. No suspicious liver lesion on this unenhanced exam. 4. Cholecystectomy. 5. Additional Ancillary findings as discussed. Electronically signed by: Jack Shah MD 11/12/2024 01:39 PM EDT RP Dictated By: Jack Shah MD Signed By: <Electronically signed by Jack Shah MD in OV> 11/12/24 1339 DD/ 1124 TD/TT: 11/12/24 1316 Machine Repairer: [facility] External Provider IMG CT PROCEDURES Edited Result - Final documented in this encounter Visit Diagnoses Not on filedocumented in this encounter Additional Health Concerns Assessment Noted Time PHQ-9 Depression Total Score: 0 01/21/20 24 11:17 AM EDT documented as of this encounter Care Teams Accounts Executive Relationship Specialty Start Date End Date Cynthia Marshall NP [address] [place] [id number] PCP - General Family Medicine 09/10/23 documented as of this encounter
--- OUTSIDE RECORDS SUMMARY | 2024-11-12 14:16 | XMS_ITS | Encounter Summary ---
Author Organization [facility] [facility] Address [address] [place] [address] 7t [place] [address] Care Team Providers Care Manager Of Customer Billing Name Role Phone Virginia Perez Primary Care Provider [phone] Blanca Crowley MD Primary Care Pro vider Cynthia Marshall NP Primary Care Provider [phone] Encounter Details Date Type Department Care Team (Latest Contact Info) Description 03/31/2021 Abstract [facility] CONVERSIONS Dental, Provider, DDS Social History Tobacco [...] on filedocumented in this encounter Care Teams Manager Of Customer Billing Relationship Specialty Start Date End Date Virginia Perez FNP PCP - General Family Medicine 04/28/22 03/28/23 Blanca Crowley MD [address] [place] [address] PCP - General Internal Medicine 03/29/23 09/09/23 Cynthia Marshall NP [address] [place] [address] PCP - General Family Medicine 09/10/23 documented as of this encounter
--- OUTSIDE RECORDS SUMMARY | 2024-11-12 14:17 | XMS_ITS | Encounter Summary ---
Author Organization [employer] Address [address] [place] [address] Care Team Providers Care Prepress Technician Name Role Phone Cynthia Marshall NP Primary Care Provider [phone] Encounter Details Date Type Department Care Team ([facility] st Contact Info) Description 05/16/2024 Telephone [facility] MEDICINE [address] [place], [place] [phone] Cynthia Marshall NP [address] [place] [address] Social History Tobacco Use Types Packs/Day Years [...] 05/16/2024 3:02 PM EDT Safety and Incident Packaging Manager Denae Carey [phone], please contact typewriter aligner when patient comesinto the [facility]. documented in this encounter Plan of Treatment Not on file documented as of this encounter Visit Diagnoses Not on filedocumented in this encounter Additional Health Concerns Assessment Noted Time PHQ-9 Depression Total Score: 0 01/21/20 24 11:17 AM EDT documented as of this encounter Care Teams Prepress Technician Relationship Specialty Start Date End Date Cynthia Marshall NP [address] [place] [address] PCP - General Family Medicine 09/10/23 documented as of this encounter
--- OUTSIDE RECORDS SUMMARY | 2024-11-12 14:17 | XMS_ITS | Clinical Summary ---
Author Organization [facility] Address [address] [place] [address] Care Team Providers Care Meat Smoker Name Role Phone Arielle Godinez Primary Care Provider Unavailabl e Allergies No known active allergies Medications Lancets (OneTouch Delica Plus [id number]) [facility] [place] BLOOD SUGAR NEEDED, IN THE MORNING [...] (01/04/2024): Last Assessment & Plan: Lesion right jain suspicious for AK, referral to derm Chronic [...] Diabetes: Hemoglobin A1C 01/06/2024 10/08/2023 Influenza Vaccine (Season Ended) 2025 05/24/2022, 08/01/2021, 06/09/2013, Additional history exists Pneumococcal Vaccine: 65+ Years Completed 05/24/2022, 09/30/2019, 06/22/2014 Hepatitis B Vaccine Aged Out 06/28/2022, 2 No longer eligible based on patient's age to complete this topic [place][id number][place] [facility] [place]TE ([id number]) Care Teams Meat Smoker Relationship Specialty Start Date End Date Arielle Godinez PCP - General Family Medicine 08/10/21
--- OUTSIDE RECORDS SUMMARY | 2024-11-12 14:17 | XMS_ITS | Encounter Summary ---
Author Organization [employer] Address [address] [place] [address] Care Team Providers Care Seam Presser Name Role Phone Cynthia Marshall NP Primary Care Provider [phone] Encounter Details Date Type Department Care Team (Late st Contact Info) Description 12/31/2023 Orders Only [facility] [address] [place] [address] Corby Jacobs MD [address] [place] [address] Elevated blood uric acid level (Primary Dx) [...] documented as of this encounter Care Teams Seam Presser Relationship Specialty Start Date End Date Cynthia Marshall NP [address] [place] [address] PCP - General Family Medicine 09/10/23 documented as of this encounter
--- OUTSIDE RECORDS SUMMARY | 2024-11-12 14:17 | XMS_ITS | Encounter Summary ---
Author Organization [employer] Address [address] [facility] [address] [place] [address] Care Team Providers Care Natural [employer] Shothole Driller Name Role Phone Cynthia Marshall NP Primary Care Provider [phone] Reason for Visit * Reason Comments Med Refill Encounter Details Date Type Department Care Team (Late st Contact Info) Description 05/16/2024 Refill [facility] [address] [place] [address] Oly Guerrero FNP Social History Tobacco Use [...] is your housing situation today? I have ryaa simpson 01/21/[address] you [...] documented as of this encounter Care Teams Natural [employer] Shothole Driller Relationship Specialty Start Date End Date Cynthia Marshall NP [address] [place] [address] PCP - General Family Medicine 09/10/23 documented as of this encounter
--- OUTSIDE RECORDS SUMMARY | 2024-11-12 14:17 | XMS_ITS | Encounter Summary ---
Author Organization [facility] Address [address] [place] [address] Phone Care Team Providers Care Head Counselor Name Role Phone Arielle Godinez Primary Care Provider Unavailabl e Encounter Details Date Type Department Care Team (Late st Contact Info) Description 01/03/2024 Office Communication [facility] [address] [place] [address] Soy Meléndez MD [address] [facility] [address] [place] [phone] Social History Tobacco Use Types Packs/Day Years [...] on filedocumented in this encounter Care Teams Head Counselor Relationship Specialty Start Date End Date Arielle Godinez PCP - General Family Medicine 08/10/21 documented as of this encounter
--- OUTSIDE RECORDS SUMMARY | 2024-11-12 14:17 | XMS_ITS | Clinical Summary ---
Author Organization [employer] Address [address] [facility] [address] [place] [address] Care Team Providers Care Assistant Inventory Manager Name Role Phone Cynthia Marshall NP Primary Care Provider [phone] Allergies No known active allergies Medications dapagliflozin (Farxiga) 10 MG Take 1 tablet by mouth in the morning. Active hydrOXYzine HCl (Atarax) 25 MG tabletIndication s:Anxiety Take 1 tablet (25 mg) by mouth every 12 (twelve) hours if needed for anxiety. 180 tablet 1 12/20/19 23 Active FeroSul 325 (65 Fe) MG tablet TAKE 1 TABLET BY MOUTH EVERY OTHER DAY WITH ORANGE JUICE 90 tablet 3 03/07/20 23 Active fluticasone (Flonase) 50 MCG/ACT nasal sprayIndications :Nasal congestion INSTILL 1 SPRAY IN EACH NOSTRIL ONCE DAILY IN THE MORNING 16 g 08/22/19 24 Active potassium chloride CR (Klor-Con) 10 MEQ ER tablet TAKE 1 TABLET BY MOUTH EVERY DAY. DO NOT BREAK, CRUSH, DISSOLVE OR CHEW 15 tablet 09/14/19 24 Active Blood Glucose Monitoring Suppl (FreeStyle [place] Lite) w/Device kitIndications:T ype 2 diabetes mellitus with other specified complication, without long-term current use of insulin ([facility]) Use to test blood sugar bid dx dm 1 kit 12/05/19 24 Active glucose blood (OneTouch Ultra) test stripIndications :Type 2 diabetes mellitus with other specified complication, without long-term current use of insulin (CMS/HCC) test blood sugar as needed, in the morning before breakfast 100 each 11 12/05/19 24 Active Lancets 33G miscIndications: Type 2 diabetes mellitus with other specified complication, without long-term current use of insulin ([facility]) 100 each 2 times daily. 60 each 11 12/05/19 24 Active lidocaine (Lidoderm) 5 % patch Apply 1 patch topically Once per day. Remove & discard patch within 12 hours or as directed by MD. 30 patch 2 12/27/19 24 025 Active Blood Pressure Monitoring (Omron 3 Series BP Monitor) device USE TO CHECK BLOOD PRESSURE DAILY 1 each 12/27/19 24 Active furosemide (Lasix) 40 MG tabletIndication s:CHF (congestive heart failure), NYHA class I, chronic, combined ([facility]) Take 1 tablet daily . 30 tablet 1 01/01/20 24 Active Eliquis 2.5 MG tabletIndication s:Paroxysmal atrial fibrillation ([facility]) TAKE 1 TABLET BY MOUTH TWICE DAILY 180 tablet 1 02/15/20 24 Active chlorthalidone (Hygroton) 25 MG tabletIndication s:Essential hypertension TAKE 1 TABLET BY MOUTH EVERY MORNING 90 tablet 1 02/15/20 24 Active docusate sodium (Colace) 100 MG capsule TAKE 1 CAPSULE BY MOUTH EVERY DAY AT BEDTIME 12/18/19 24 Active calcitriol (Rocaltrol) 0.25 MCG capsule TAKE 1 CAPSULE BY MOUTH EVERY OTHER DAY 45 capsule 1 04/17/20 24 Active Diclofenac Sodium 1 % gelIndications:C hronic pain of left knee Apply thin layer by topical route (quantity as directed on package insert) to affected area of pain 3 times daily as needed. 50 g 3 04/24/20 24 Active cholecalciferol (D3 Super Strength) 50 MCG (2000 UT) capsuleIndicatio ns:Vitamin D deficiency TAKE 1 CAPSULE BY MOUTH EVERY DAY 90 capsule 1 05/16/20 24 Active atorvastatin (Lipitor) 40 MG tablet Take 1 tablet (40 mg) by mouth Once per day. 90 tablet 2 05/16/20 24 Active amLODIPine (Norvasc) 10 MG tabletIndication s:Essential hypertension TAKE 1 TABLET BY MOUTH EVERY MORNING 90 tablet 3 06/17/20 24 Active lisinopril 40 MG tabletIndication s:Essential hypertension TAKE 1 TABLET BY MOUTH EVERY MORNING 90 tablet 1 11/07/19 25 Active lisinopril 40 MG tabletIndication s:Essential hypertension TAKE 1 TABLET BY MOUTH EVERY MORNING 90 tablet 1 07/05/ 025 Discontinued Active Problems Problem Noted Date Diagnosed Date [...] Plan (10/08/2023 5:16 PM EST): Lesion right gnosticist suspicious for AK, referral to derm Stage 3b chronic kidney disease 10/08/2023 Assessment & Plan (10/08/2023 5:07 PM EST): Bp above goal today, Referral to renal Anemia due to stage 3a chronic kidney disease Assessment & Plan (01/06/2024 2:15 PM EDT): [...] Encounters Date Type Department Care Team Description 11/12/2024 Orders Only [facility] External Provider, [facility] 11/05/2024 Refill [facility] [address] [address] Cynthia Marshall NP Essential hypertension 10/26/2024 Orders Only [facility] External Provider, [facility] 10/20/2024 10:00 AM EDT Office Visit [facility] [address] [address] Corby Jacobs MD Right upper quadrant abdominal pain (Primary Dx) 10/20/2024 Orders Only GENERIC EXTERNAL DATA DEPARTMENT Provider, Generic External Data 09/26/2024 Orders Only [facility] [address] [place] [phone] Cynthia Marshall NP Stage 3b chronic kidney [...] WO CONTRAST Routine 11/12/2024 11:[address] ABDOMEN PELVIS WO CONTRAST Routine 10/26/2024 6:25 AM EDT URINALYSIS, COMPLETE, WITH REFLEX TO CULTURE Routine 10/26/2024 3:47 AM EDT XR KUB AND UPRIGHT 2 VIEWS Routine 10/26/2024 2:47 AM EDT XR PRE MRI SCREENING Routine 2024 11:15 AM EDT US ABDOMEN LIMITED Routine 10/20/2024 8: [address] ABDOMEN PELVIS WO CONTRAST Routine 10/20/2024 6:23 PM EDT URINALYSIS, COMPLETE, WITH REFLEX TO CULTURE Routine 10/20/2024 11:30 AM EDT BILIRUBIN, DIRECT Routine 10/20/2024 11: 26 AM EDT SED RATE BY MODIFIED WESTERGREN Routine 10/20/2024 11:26 AM EDT LIPASE Routine 10/20/2024 11:26 AM EDT C-REACTIVE PROTEIN Routine 10/20/2024 11 :26 AM EDT MAGNESIUM Routine 10/20/2024 11:26 AM EDT COMPREHENSIVE METABOLIC PANEL Routine 10/20/2024 11:26 AM EDT CBC WITH AUTO DIFFERENTIAL Routine 10/20/2024 11:26 AM EDT POCT GLYCATED HEMOGLOBIN, TOTAL Routine 04/18/2024 11:36 AM EDT Type 2 diabetes mellitus with other specified complication, without long-term current use of insulin ([facility]) LIPID PANEL, STANDARD Routine 07/11/2021 10:28 AM EST from Last 3 Months or Most Recently Relevant to Health Maintenance Results * CT Abdomen Pelvis w/o Contrast (11/12/2024 11:24 AM EDT) Only the most recent of3 resultswithin the time period is included. Anatomical Region Laterality Modality Body, Pelvis, Abdomen Computed T omography 11/12/2024 11:2 4 AM EDT Narrative 11/12/2024 1:42 PM EDT ? [facility] ?[address] ?[place] [address] ? CT Scan Report ? Signed ? Patient: Ethan Cristina ?MR#: [id number] ?? 0 ? : 1950 ?Acct:[id number] ? Age/Sex: 74 / M ?ADM Date: 11/12/24 ? Loc: HO.ED ? Attending Dr: ? Ordering Physician: Ankit Hardin MD ?? Date of Service: 11/12/24 ?? Procedure(s): CT abdomen pelvis wo IV con ?? Accession Number(s): [id number] ? cc: Ankit Hardin MD; Blanca Crowley MD ? Report Number: ?? [id number]: Total DLP = ??932.00 mGy-cm ?? EXAMINATION: [...] DD/ 1124 ? TD/TT: 11/12/24 1316 ? Field Insurance Sales Manager: ? Procedure Note Carmine Mcdonald - 11/12/[address] [address] [address] Scan Report Signed Patient: Tobin Cristina#: [id number] 0 : 3Acct:[id number] Age/Sex: 74 / MADM Date: 11/12/24 Loc: HO.ED Attending Dr: Ordering Physician: Ankit Hardin MD Date of Service: 11/12/24 Procedure(s): CT abdomen pelvis wo IV con Accession Number(s): [id number] cc: Ankit Hardin MD; Blanca Crowley MD Report Number: [id number]: Total DLP = 932.00 mGy-cm EXAMINATION: CT [...] 11/12/24 1339 DD/ 1124 TD/TT: 11/12/24 1316 Field Insurance Sales Manager: [facility] External Provider IMG CT PROCEDURES Edited Result - Final * (ABNORMAL) Urinalysis, Complete, with Reflex to Culture (10/26/2024 3:47 AM EDT) Only the most recent of2 resultswithin the time period is included. Color Urine Yellow [facility] Appearance Urine Clear [facility] PH 6.0 5.0 - 9.0 [facility] Glucose Urine UA 500(A) Negative mg/dL [facility] Urine Blood Negative Negative [facility] Specific [place] - Urine 1.015 1.005 - 1.025 [facility] Urine Protein 100 (2+)(A) Neg-Trace mg/dL [facility] Urine Ketones Negative Negative mg/dL [facility] Nitrite Urine Negative Negative [facility] Leukocyte Esterase Urine Negative Negative [facility] RBC Urine 0-2 0 - 2 /HPF [facility] Urine WBC 0-5 0 - 5 /HPF [facility] Urine Squamous Epithelial Cell 0-2 0 - 2 /HPF [facility] Urine Bacteria None Seen None Seen [facility] Hyaline Casts, Urine 0-2 0 - 2 /LPF [facility] 10/26/2024 3:47 AM EDT 10/26/2024 3:53 AM EDT Narrative [facility] - 10/26/2024 4:06 AM EDT [id number], [employer] us Generic External Data Provider LAB URINE ORDERAB LES Final Result [facility] [address] [place] [address] [phone] * XR KUB and Upright 2 Views (10/26/2024 2:47 AM EDT) Anatomical Region Laterality Modality Radiographic [place] 10/26/2024 2:47 AM EDT Narrative 10/26/2024 2:49 AM EDT ? [facility] ?[address] ?[place] [address] ?XRay Report ? Signed ? Patient: Ethan Cristina ?MR#: [id number] ?? 0 ? : 1950 ?Acct:[id number] ? Age/Sex: 74 / M ?ADM Date: 10/26/24 ? Loc: HO.ED ? Attending Dr: ? Ordering Physician: Salty Mclean MD ?? Date of Service: 10/26/24 ?? Procedure(s): XR KUB ?? Accession Number(s): [id number] ? cc: Blanca Crowley MD; Salty Mclean MD ? CLINICAL HISTORY: constipation ? 1 view abdomen ? Comparison: US - US ABDOMEN LIMITED - 10/20/24 18:57 EDT ?? CT/SR - CT ABDOMEN PELVIS WO IV CON - 10/20/24 17:25 EDT ? Findings: ?? No pneumoperitoneum or pneumatosis. Multiple gas-filled loops of ?? nondilated bowel are identified throughout the abdomen. A small amount of ?? stool is visualized over the rectum. Moderate colonic stool burden present. ?? Surgical clips are identified over the right upper abdominal quadrant, ?? possibly consistent with prior cholecystectomy. ?? No acute fractures. ? IMPRESSION: ?? 1. Nonobstructed bowel-gas pattern. ?? 2. Moderate colonic stool burden. ? This document has been electronically signed by: Girma Shah MD on ?? 10/26/2024 02:47:40 ? Dictated By: ?Girma Shah MD ? Signed By: ?<Electronically signed by Girma Shah MD in OV> ? 10/26/24 0249 ? DD/ 6 ? TD/TT: 10/26/24246 ? Field Insurance Sales Manager: ? Procedure Note Donotaileeninterpreter, Image - 10/26/[address] [address] XRay Report Signed Patient: Ethan CristinaMR#: [id number] 0 : 1950cct:[id number] Age/Sex: 74 / MADM Date: 10/26/24 Loc: HO.ED Attending Dr: Ordering Physician: Salty Mclean MD Date of Service: 10/26/24 Procedure(s): XR KUB Accession Number(s): [id number] cc: Blanca Crowley MD; Salty Mclean MD CLINICAL HISTORY: constipation 1 view abdomen Comparison: US - US ABDOMEN LIMITED - 10/20/24 18:[address]/SR - CT ABDOMEN PELVIS WO IV CON - 10/20/24 17:25 EDT Findings: No pneumoperitoneum or pneumatosis. Multiple gas-filled loops of nondilated bowel are identified throughout the abdomen. A small amount of stool is visualized over the rectum. Moderate colonic stool burdenpresent. Surgical clips are identified over the right upper abdominal quadrant, possibly consistent with prior cholecystectomy. No acute fractures. IMPRESSION: 1. Nonobstructed bowel-gas pattern. 2. Moderate colonic stool burden. This document has been electronically signed by: Girma Shah MD on 10/26/2024 02:47:40 Dictated By: Girma Shah MD Signed By: <Electronically signed by Girma Shah MD in OV> 10/26/24248 DD/ 6 TD/TT: 10/26/24246 Field Insurance Sales Manager: [facility] External Provider IMG XR PROCEDURES Final Result * XR PRE MRI SCREENING (2024 11:15 AM EDT) Anatomical Region Laterality Modality Abdomen Radiographic [place] 2024 11:1 5 AM EDT Narrative 2024 11:48 AM EDT ? [facility] ?[address] ?[place] [address] ?XRay Report ? Signed ? Patient: Cristina,Ethan ?MR#: [id number] ?? 0 ? : 1950 ?Acct:[id number] ? Age/Sex: 74 / M ?ADM Date: 10/20/24 ? Loc: HO.EDOVER ?[facility]-3 ? Attending Dr: Vivek Jaramillo MD ? Ordering Physician: Jack Shah MD ?? Date of Service: 10/21/24 ?? Procedure(s): XR pre mri screening ?? Accession Number(s): [id number] ? cc: Jack Shah MD; Blanca Crowley MD ? Examination: Skull, cervical spine and chest x-ray. ? CLINICAL INDICATION: Pre-MRI screening. ? COMPARISON: Chest x-ray 12/19/2022. ? FINDINGS: ? Skull: 2 views of skull reveals endovascular coils in the suprasellar ?? 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 The ?? age of intravascular surgery for aneurysmal coiling should be further ?? evaluated. Rest of visualized bones are unremarkable. The paranasal ?? sinuses are clear. The calvarium is unremarkable. ? Cervical spine: 2 views cervical spine reveals cervical lordosis. The ?? vertebral heights, alignment and disc heights are normal. No visible ?? acute fracture, dislocation or subluxation seen. There is mild ventral ?? spondylosis C3-4, C4-5, C5-6 and disc levels. No radiopaque metallic ?? foreign body seen. ? Chest x-ray: The lungs are expanded and clear acute process. The heart ?? size is borderline normal. Pulmonary vascularity is normal. No ?? radiopaque metallic foreign bodies seen. No gross bony abnormality. ? XR/XR pre mri screening ?? IMPRESSION: Endovascular coils seen in the suprasellar region of the ?? skull. Insertion of coils which year is not known. ? Unremarkable C-spine except for mild DJD. ? Mild cardiomegaly. Lungs are clear. No radiopaque metallic foreign ?? bodies in the chest or ??C-spine. ? Electronically signed by: ??Cedric Han MD ??2024 11:45 AM EDT RP ? Dictated By: ?Cedric Han MD ? Signed By: ?<Electronically signed by Cedric Han MD in OV> ?10/21/24 1145 ? DD/ 1115 ? TD/TT: 10/21/24 1122 ? Field Insurance Sales Manager: MSM ? Procedure Note Donotuseinterpreter, Image - 2024 [place] [address] XRay Report Signed Patient: Tobin Cristina#: [id number] 0 : 1950cct:[id number] Age/Sex: 74 / MADM Date: 10/20/24 Loc: [facility]: Vivek Jaramillo MD Ordering Physician: Jack Shah MD Date of Service: 10/21/24 Procedure(s): XR pre mri screening Accession Number(s): [id number] cc: Jack Shah MD; Blanca Crowley MD Examination: Skull, cervical spine and chest x-ray. CLINICAL INDICATION: Pre-MRI screening. COMPARISON: Chest x-ray 12/19/2022. 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 The age of intravascular surgery for aneurysmal coiling should be further evaluated. Rest of visualized bones are unremarkable. The paranasal sinuses are clear. The calvarium is unremarkable. Cervical spine: 2 views cervical spine reveals cervical lordosis. The vertebral heights, alignment and disc heights are normal. No visible acute fracture, dislocation or subluxation seen. There is mild ventral spondylosis C3-4, C4-5, C5-6 and disc levels. No radiopaque metallic foreign body seen. Chest x-ray: The lungs are expanded and clear acute process. The heart size is borderline normal. Pulmonary vascularity is normal. No radiopaque metallic foreign bodies seen. No gross bony abnormality. XR/XR pre mri screening IMPRESSION: Endovascular coils seen in the suprasellar region of the skull. Insertion of coils which year is not known. Unremarkable C-spine except for mild DJD. Mild cardiomegaly. Lungs are clear. No radiopaque metallic foreign bodies in the chest or C-spine. Electronically signed by: Cedric Han MD 2024 11:45 AM EDT RP Dictated By: Cedric Han MD Signed By: <Electronically signed by Cedric Han MD in OV> 10/21/24 1145 DD/ 1115 TD/TT: 10/21/24 1122 Field Insurance Sales Manager: CAT[employer] [facility] External Provider IMG XR PROCEDURES Final Result * US Abdomen Limited (10/20/2024 8:05 PM EDT) Anatomical Region Laterality Modality Abdomen Ultrasound 10/20/2024 8:05 PM EDT Narrative 10/20/2024 8:07 PM EDT ? [facility] ?[address] ?[place] [address] ? Ultrasound Report ? Signed ? Patient: Cristina,Ethan ?MR#: [id number] ?? 0 ? : 1950 ?Acct:[id number] ? Age/Sex: 73 / M ?ADM Date: 03/10/25 ? Loc: HO.ED ? Attending Dr: ? Ordering Physician: Christine Roblero ?? Date of Service: 10/20/24 ?? Procedure(s): US abdomen limited ?? Accession Number(s): [id number] ? cc: Christine Roblero; Blanca Crowley MD ? CLINICAL HISTORY: right pain, GB, CBD ? US abdomen limited ? Comparison: CT/SR - CT ABDOMEN PELVIS WO IV CON - 10/20/24 17:25 EDT ? Findings: ?? The gallbladder is distended. ?? Echogenic focus with acoustic shadowing in the region of the gallbladder ?? neck measures 2 cm. ?? Gallbladder sludge. Gallbladder wall measures 4 mm. Common bile duct ?? measures 4 mm. ? IMPRESSION: ?? 1. Cholelithiasis and sludge in the gallbladder with mild gallbladder wall ?? thickening, correlate with acute cholecystitis. ?? 2. Common bile duct is not dilated. ? This document has been electronically signed by: Greta Hand MD on ?? 10/20/2024 20:05:41 ? Dictated By: ?Greta Hand MD ? Signed By: ?<Electronically signed by Greta Hand MD in OV> ? 10/20/242005 ? DD/ 04 ? TD/TT: 10/20/242004 ? Field Insurance Sales Manager: ? Procedure Note Donsanjuanitater, Image - 10/20/2024 [place] [address] Ultrasound Report Signed Patient: Tobin Cristina#: [id number] 0 : 1950cct:[id number] Age/Sex: 73 / MADM Date: 10/20/24 Loc: HO.ED Attending Dr: Ordering Physician: Christine Roblero Date of Service: 10/20/24 Procedure(s): US abdomen limited Accession Number(s): [id number] cc: Christine Roblero; Blanca Crowley MD CLINICAL HISTORY: right pain, GB, CBD US abdomen limited Comparison: CT/SR - CT ABDOMEN PELVIS WO IV CON - 10/20/24 17:25 EDT Findings: The gallbladder is distended. Echogenic focus with acoustic shadowing in the region of the gallbladder neck measures 2 cm. Gallbladder sludge. Gallbladder wall measures 4 mm. Common bile duct measures 4 mm. IMPRESSION: 1. Cholelithiasis and sludge in the gallbladder with mild gallbladder wall thickening, correlate with acute cholecystitis. 2. Common bile duct is not dilated. This document has been electronically signed by: Greta Hand MD on 10/20/2024 20:05:41 Dictated By: Greta Hand MD Signed By: <Electronically signed by Greta Hand MD in OV> 10/20/242005 DD/ 04 TD/TT: 10/20/242004 Field Insurance Sales Manager: us [facility] External Provider IMG US PROCEDURES Edited Result - Final * (ABNORMAL) CBC auto differential (10/20/2024 11:26 AM EDT) White Blood Count 10.2 4.8 - 10.8 X10*3/uL [facility] Red Blood Count 5.82(H) 4.60 - 5.80 X10*6/uL [facility] Hemoglobin 16.8 14.0 - 18.0 g/dl [facility] Hematocrit 49.3 42.0 - 52.0 % [facility] Mean Corpuscular Volume 84.7 80.0 - 98.0 fL [facility] Mean Corpuscular Hemoglobin 28.9 27.0 - 33.0 pg [facility] Mean Corpuscular HGB Conc 34.1 31.0 - 36.0 g/dl [facility] Red Cell Distribution Width 14.3 11.0 - 16.0 % [facility] Platelet Count 191 160 - 400 X10*3/uL [facility] Mean Platelet Volume 8.9(L) 9.4 - 12.4 fL [facility] Neutrophils Percent Auto 78.7(H) 45 - 73 % [facility] Imm Gran Pct Auto 0.4 0.0 - 0.4 % [facility] Lymphocytes Percent Auto 11.5(L) 20 - 40 % [facility] Monocytes Percent Auto 8.8 2 - 11 % [facility] Eosinophils Percent Auto 0.3 0 - 4 % [facility] Basophils Percent Auto 0.3 0 - 2 % [facility] NRBC Pct Auto 0.0 0.0 - 0.2 /100WBC [facility] Neutrophils Absolute Auto 8.0 2.0 - 8.3 x10*3/uL [facility] Imm Gran Abs Auto 0.04(H) 0.00 - 0.03 X10*3/uL [facility] Lymphocytes Absolute Auto 1.2 1.2 - 4.9 X10*3/uL [facility] Monocytes Absolute Auto 0.9 0.1 - 1.2 X10*3/uL [facility] Eosinophils Absolute Auto 0.0 0.0 - 0.4 X10*3/uL [facility] Basophils Absolute Auto 0.0 0.0 - 0.2 X10*3/uL [facility] NRBC Abs Auto 0.000 0.0 - 0.012 X10*3/uL [facility] 10/20/2024 11:2 6 AM EDT 10/20/2024 11:33 AM EDT Generic External Data Provider LAB BLOOD ORDERAB LES Final Result Performing Organization Address [facility] Co de Phone Number [facility] [address] [place] [phone] * (ABNORMAL) Sed Rate by Modified Ivetteren (10/20/2024 11:26 AM EDT) Erythrocyte Sedimentation Rate 45(H) 0 - 15 MM/HR [facility] Comment:Patients with polycy themia and many hemoglobin abnormalitiesmay have depressed sed rates whereas patients with anemiamay have elevated sed rates. 10/20/2024 11:2 6 AM EDT 10/20/2024 11:33 AM EDT Generic External Data Provider LAB BLOOD ORDERAB LES Final Result Performing Organization Address [facility] Co de Phone Number [facility] [address] [place] [phone] * (ABNORMAL) C-reactive Protein (10/20/2024 11:26 AM EDT) C Reactive Protein 13.33(H) < or = 0.50 mg/dL [facility] 10/20/2024 11:2 6 AM EDT 10/20/2024 11:33 AM EDT us Generic External Data Provider LAB BLOOD ORDERAB LES Final Result Performing Organization Address [facility]/ZIP Co de Phone Number [facility] [address] [place] [phone] * Magnesium (10/20/2024 11:26 AM EDT) Magnesium 2.0 1.6 - 2.6 mg/dL [facility] 10/20/2024 11:2 6 AM EDT 10/20/2024 11:33 AM EDT us Generic External Data Provider LAB BLOOD ORDERAB LES Final Result Performing Organization Address [facility] Co ky Phone Number [facility] [address] [place] [phone] * Lipase (10/20/2024 11:26 AM EDT) Lipase 16 8 - 78 U/L [facility] 10/20/2024 11:2 6 AM EDT 10/20/2024 11:33 AM EDT us Generic External Data Provider LAB BLOOD ORDERAB LES Final Result Performing Organization Address [facility] Co de Phone Number [facility] [address] [place] [phone] * Bilirubin, Direct (10/20/2024 11:26 AM EDT) Bilirubin, Direct 0.5 0.0 - 0.5 mg/dL [facility] 10/20/2024 11:2 6 AM EDT 10/20/2024 11:33 AM EDT us Generic External Data Provider LAB BLOOD ORDERAB LES Final Result Performing Organization Address [facility] Co de Phone Number [facility] [address] [place] [phone] * (ABNORMAL) Comprehensive Metabolic Panel (10/20/2024 11:26 AM EDT) Sodium 141 135 - 145 mmol/L [facility] [facility] Potassium 3.3 3.3 - 5.1 mmol/L [facility] Chloride 104 96 - 108 mmol/L [facility] Carbon Dioxide 27 22 - 29 mmol/L [facility] Anion Gap 13 12 - 20 [facility] Urea Nitrogen (BUN) 50(H) 9 - 16 mg/dL [facility] Creatinine, Serum 2.38(H) 0.5 - 1.4 mg/dL [facility] Creatinine Clr Calc Pharmacy 30.9 [facility] Comment:eGFR (calculated fro m the MDRD study equation) and eCrCl(calculated from the Cockcroft-Gault equation) are based ondifferent parameters and may not yield comparable results.If eCrCl result is absurd, please check patient'sheight/weight. Estimated Glomerular Filt Rate 27 [facility] Comment:Chronic Kidney Disea se: Estimated GFR < 60 mL/min/[id number] Kidney Disease: Estimated GFR < 15 mL/min/1.73m2 Glucose 125(H) 60 - 115 mg/dL [facility] Calcium 9.5 8.4 - 10.2 mg/dL [facility] Bilirubin, Total 1.7(H) 0.0 - 1.0 mg/dL [facility] Aspartate Amino Transferase 22 5 - 37 U/L [facility] Alanine Aminotransferase 11 0 - 40 U/L [facility] Total Protein 8.3(H) 6.5 - 8.0 g/dL [facility] Albumin Level 3.8 3.5 - 5.0 g/dL [facility] Alkaline Phosphatase 126(H) 39 - 117 U/L [facility] 10/20/2024 11:2 6 AM EDT 10/20/2024 11:33 AM EDT us Generic External Data Provider LAB BLOOD ORDERAB LES Final Result [facility] [address] [place] [address] [phone] * POCT HGB A1C (04/18/2024 11:36 AM EDT) Hemoglobin A1C 6.0 4.0 - 6.0 % QC Media Lot # [id number] Lot# Expiration Date [id number] Blood 04/18/2024 11:3 6 AM EDT Cynthia Marshall NP POINT OF CARE TEST ENTER/EDIT OR DERABLES Final Result * (ABNORMAL) LIPID PANEL, STANDARD (07/11/2021 10:28 AM EST) Chol/HDLC Ratio 5.7(H) <5.0 (calc) [facility] ?? Terry PRESCOTT et al. SHARITA. 2013;310(19): 5748-0589 ?? (http://education.Ajungo.GoMiles/faq/BZO211) Non-HDL Cholesterol 147(H) <130 mg/dL (calc) [facility] Comment: For patients with diabetes plus 1 major ASCVD risk ?? factor, treating to a non-HDL-C goal of <100 mg/dL ?? (LDL-C of <70 mg/dL) is considered a therapeutic ?? option. Triglycerides 80 <150 mg/dL [facility] 07/11/2021 10:2 8 AM EST us Oly Guerrero SENIOR COGNOS DEVELOPER LAB BLOOD ORDERABLES Final Res ult [facility] [address] from Last 3 Months or Most Recently Relevant to Health Maintenance Insurance [address] [place] [address] [facility] DUAL COMPLETE [facility] STANDARD Care Teams Assistant Inventory Manager Relationship Specialty Start Date End Date Cynthia Marshall NP [address] [place] [address] PCP - General Family Medicine 09/10/23
--- OUTSIDE RECORDS SUMMARY | 2024-11-12 14:17 | XMS_ITS | Clinical Summary ---
Author Organization [employer] [facility] Address [address] [place] [address] Care Team Providers Care Solder Making Supervisor Name Role Phone Unavailable Primary Care Provider Unavailabl e Surgical History Surgery Date Site/Laterality Comments SHOULDER SURGERY 06/18/07 PROCEDURE: HISTORICAL SHOULDER SURGERY; COMMENT: Rotator cuff- Dr. Adis King APPENDECTOMY PROCEDURE: HISTORICAL APPENDECTOMY COLONOSCOPY 12/28/2011 PROCEDURE: HISTORICAL COLONOSCOPY; COMMENT: normal UPPER GASTROINTESTINAL ENDOSCOPY 03/14/2016 PROCEDURE: MO UPPER GI ENDOSCOPY PERFORMED; COMMENT: Visually normal; [...] 2024 Influenza Vaccine (#1) 2024 RSV Immunization Adult Patie nts (1 - 1-dose 75+ series) 10/22/2027 HIB [...]
--- OUTSIDE RECORDS SUMMARY | 2024-11-12 14:17 | XMS_ITS | Encounter Summary ---
Author Organization [employer] Address [address] [place] [address] Care Team Providers Care Telephone Clerk Telegraph Office Name Role Phone Cynthia Mrashall NP Primary Care Provider [phone] Encounter Details Date Type Department Care Team ([facility] st Contact Info) Description 07/04/2024 Orders Only [facility] [address] [place], [place] [phone] Cynthia Marshall NP [address] [place] [address] Stage 3b chronic kidney disease (CMS/HCC) Social [...] EST Narrative 08/08/2024 10:06 AM EST ? [facility] ?[address] ?[place] [address] ?Nuclear Medicine Report ? Signed ? Patient: Cristina,Ethan ?MR#: [id number] ?? 0 ? : 1950 ?Acct:[id number] ? Age/Sex: 73 / M ?ADM Date: 07/31/24 ? Loc: HO.NUCMED ? Attending Dr: Kong Duarte MD ? Ordering Physician: Kong Duarte MD ?? Date of Service: 07/31/24 ?? Procedure(s): NM renal flow w pharm int ?? Accession Number(s): [id number] ? cc: Kong Duarte MD; Cynthia Marshall FASHION ILLUSTRATOR ? EXAMINATION: ?? RENAL DYNAMIC IMAGING STUDY [...] ? TD/TT: 07/31/24 1345 ? Director Of Software Development: ? Procedure Note Tamara, Image - 08/08/[address] [address] Nuclear Medicine Report Signed Patient: Tobin Cristina#: [id number] 0 : 3Acct:[id number] Age/Sex: 73 / MADM Date: 07/31/24 Loc: SUSAN Attending Dr: Kong Duarte MD Ordering Physician: Kong Duarte MD Date of Service: 07/31/24 Procedure(s): NM renal flow w pharm int Accession Number(s): [id number] cc: Kong Duarte MD; Cynthia Marshall NP [...] by: Janice Pate MD 08/08/2024 10:03 AM [facility] Dictated By: Janice Pate Signed By: <Electronically signed by Janice Pate in OV> 08/08/24 1003 DD/ 1058 TD/TT: 07/31/24 1345 Director Of Software Development: [facility] External Provider IMG NM PROCEDURES Final Result documented in this encounter Visit Diagnoses Diagnosis Stage 3b chronic kidney disease (CMS/HCC) documented in this encounter Additional Health Concerns Assessment Noted Time PHQ-9 Depression Total Score: 0 06/10/20 24 11:17 AM EDT documented as of this encounter Care Teams Telephone Clerk Telegraph Office Relationship Specialty Start Date End Date Cynthia Marshall NP [address] [place] [address] PCP - General Family Medicine 09/10/23 documented as of this encounter
--- OUTSIDE RECORDS SUMMARY | 2024-11-12 14:17 | XMS_ITS | Encounter Summary ---
Author Organization [employer] Address [address] [facility] [address] [place] [address] Care Team Providers Care Environmental Services Worker Name Role Phone Cynthia Marshall NP Primary Care Provider [phone] Reason for Visit * Reason Comments Med Refill Encounter Details Date Type Department Care Team ([facility] st Contact Info) Description 11/04/2023 Refill [facility] [address] [place], [place] [phone] Blanca Crowley MD [address] [place] [address] Social History Tobacco Use Types Packs/Day Years [...] as of this encounter Care Teams Environmental Services Worker Relationship Specialty Start Date End Date Cynthia Marshall NP [address] [place] [address] PCP - General Family Medicine 09/10/23 documented as of this encounter
--- OUTSIDE RECORDS SUMMARY | 2024-11-12 14:17 | XMS_ITS | Encounter Summary ---
Author Organization [employer] Address [address] [place] [address] Care Team Providers Care Public Health Training Assistant Name Role Phone Cynthia Marshall NP Primary Care Provider [phone] Encounter Details Date Type Department Care Team ([facility] st Contact Info) Description 04/11/2024 Orders Only [facility] [address] [place], [place] [phone] Cynthia Marshall NP [address] [place] [address] Stage 3b chronic kidney disease (CMS/HCC) Social [...] EST) Sodium 141 135 - 145 mmol/L [facility] Potassium 3.4 3.3 - 5.1 mmol/L [facility] Chloride 104 96 - 108 mmol/L [facility] Carbon Dioxide 28 22 - 29 mmol/L [facility] Anion Gap 12 12 - 20 [facility] Urea Nitrogen (BUN) 42(H) 9 - 16 mg/dL [facility] Creatinine, Serum 1.96(H) 0.5 - 1.4 mg/dL [facility] Estimated Glomerular Filt Rate 34 [facility] Comment:Chronic Kidney Disea se: Estimated GFR < 60 mL/min/1.96p2Ecvulq Kidney Disease: Estimated GFR < 15 mL/min/1.73m2 Glucose 110 60 - 115 mg/dL [facility] Calcium 9.2 8.4 - 10.2 mg/dL [facility] Blood Venous blood specimen / Unknown 07/04/2024 12:13 PM EST 07/04/2024 12:13 PM EST us Cynthia Marshall DESIGN TECH LAB BLOOD ORDERABLES Final Resul t [facility] [address] [place] [address] [phone] documented in this encounter Visit Diagnoses Diagnosis Stage 3b chronic kidney disease (CMS/HCC) documented in this encounter Additional Health Concerns Assessment Noted Time PHQ-9 Depression Total Score: 0 01/21/20 24 11:17 AM EDT documented as of this encounter Care Teams Public Health Training Assistant Relationship Specialty Start Date End Date Cynthia Marshall NP [address] [place] [address] PCP - General Family Medicine 09/10/23 documented as of this encounter
--- OUTSIDE RECORDS SUMMARY | 2024-11-12 14:18 | XMS_ITS | Encounter Summary ---
Author Organization [facility] [facility] [facility] Address [address] [facility] [address] [place] [address] Care Team Providers Care Angle Furnaceman Name Role Phone Virginia Perez Primary Care Provider [phone] Blanca Crowley MD Primary Care Pro vider Cynthia Marshall NP Primary Care Provider [phone] Encounter Details Date Type Department Care Team (Late st Contact Info) Description 01/01/2023 Abstract [facility] [address] [place] [address] Virginia Perez FNP [address] [place] [address] Dept [place] [address] Social History Tobacco Use Types Packs/Day Years [...] on filedocumented in this encounter Care Teams Angle Furnaceman Relationship Specialty Start Date End Date Virginia Perez FNP PCP - General Family Medicine 04/28/22 03/28/23 Blanca Crowley MD [address] [place] [address] PCP - General Internal Medicine 03/29/23 09/09/23 Cynthia Marshall NP [address] [place] [address] PCP - General Family Medicine 09/10/23 documented as of this encounter
[2024-11-12] MEDS: Piperacillin Sodium/Tazobactam 3.375 GM in 0.9 % Sodium Chloride 50 ML IV (14:45)
[2024-11-12 15:02] LABS: Lactic Acid 1.3 mmol/L (0.5-2.0)
[2024-11-12 15:18] VITALS: BP 161/86; PULSE 97; RESP 14; TEMP 36.7; O2SAT 93
--- NOTE | 2024-11-12 15:42 | P.HPHOSP_ITS ---
History of Present Illness Date of Service: 11/12/24 Chief Complaint: Abdominal pain 74-year-old man presented with complaints of abdominal pain that started a few days ago. He denied any nausea or vomiting. Reported nonbloody diarrhea. Denied fever, chills, sick contacts, recent travel. Patient was discharged from [facility] on 10/25/2024 and at that time had cholecystectomy. Today he has an elevated white blood cell count of 17.0, creatinine 3.36, alk phos 806, cirrhotic liver noted on abdominal CT as well as wall thickening and inflammation of the cecum and ascending colon suggestive of infectious versus inflammatory segmental colitis, elevated blood pressure reading. In the ER patient was given morphine, Zofran, IV fluids, Zosyn. He will be admitted for further management and treatment of acute colitis. Review of Systems 2 Review of Systems: Denies any recent fever chills or decrease in appetite respiratory denies any shortness of breath or cough cardiovascular denied chest pain gastrointestinal right lower quadrant abdominal pain with nonbloody diarrhea genitourinary denies any dysuria frequency or hematuria musculoskeletal denies any joint pain or swelling neuropsych denies any weakness or seizures all other systems reviewed are negative [facility] Medical History Obesity (BMI 30.0-34.9) Cardiomyopathy CKD (chronic kidney disease) Stroke Chronic atrial fibrillation CHF (congestive heart failure) CKD (chronic kidney disease) Former smoker Depression Diabetes High cholesterol Hypertension Family History Father No problems noted. Mother Diabetes Hypertension Cancer Son No problems noted. Son No problems noted. Son No problems noted. Daughter No problems noted. Daughter No problems noted. Surgical History History of aneurysm History of shoulder surgery Social History Household Members: None Household Members Other:: Housing: Apartment Do you presently have visiting nurse or other home services: No Alcohol intake: never Patient Tobacco Use Status: Never used Tobacco Smoked in Last 30 Days: No Use of substances other than those prescribed or required for medical reasons: No Advance Directives: No Advance Directives Information Provided: Yes Do you have a plan to hurt others: No Plan service: No Current occupational status: disabled Meds Allergies Allergy/AdvReac Type Severity Reaction Status Date / Time No Known Allergies Allergy Verified 11/12/24 11:36 [No Known Allergies*] Home Medications ?Medication ?Instructions ?Recorded ?Confirmed ?Last Taken ?Type blood-glucose meter #1 ea 05/14/20 01/14/24 Unknown History lancets #100 ea 05/14/20 01/14/24 Unknown History atorvastatin 40 mg tablet 40 mg PO DAILY 12/19/22 11/12/24 11/11/24 History apixaban 2.5 mg tablet (Eliquis) 2.5 mg PO BID 10/20/24 11/12/24 11/11/24 History lisinopril 40 mg tablet 40 mg PO DAILY 10/20/24 11/12/24 11/11/24 History Physical Exam 2 Vital Signs and Narrative: Vital Signs: Last Vital Signs Temp 98.0 F 11/12/24 15:18 Pulse 97 11/12/24 15:18 Resp 14 11/12/24 15:18 BP 161/86 H 11/12/24 15:18 Pulse Ox 93 11/12/24 15:18 O2 Del Method Room Air 11/12/24 15:18 BMI result Body Mass Index 29.7 Appearing in no acute distress head is normocephalic atraumatic eyes pupils are PERRLA sclera is anicteric mouth throat mucous membranes are intact and moist neck is supple no lymphadenopathy, no JVD noted lung sounds are clear to auscultation heart regular rate rhythm, clear S1, S2 positive bowel sounds, abdomen is soft, nontender neuro patient is alert x3, no focal deficits Results Labs 11/12/24 12:24 11/12/24 12:24 Labs: Laboratory Results - last 24 hr 11/12/24 11/12/24 12:24 14:38 MCV 84.4 MCH 28.9 MCHC 34.3 RDW 15.1 Plt Count 439 H D MPV 8.5 L Immature Gran % (Auto) 0.9 H Neut % (Auto) 92.5 H Lymph % (Auto) 2.6 L [place] % (Auto) 3.8 Eos % (Auto) 0.1 Baso % (Auto) 0.1 Lymph # (Auto) 0.4 L [place] # (Auto) 0.7 Eos # (Auto) 0.0 Baso # (Auto) 0.0 Abs Immat Gran (auto) 0.15 H Absolute Neuts (auto) 15.7 H Absolute Nucleated RBC 0.000 Nucleated RBC % (auto) 0.0 Smear Tech's Comments VERIFIED Anion Gap 14 Estim Creat Clear Calc 20.8 Estimated GFR 18 Random Glucose 166 H Lactic Acid 1.3 Calcium 9.6 Total Bilirubin 1.4 H AST 41 H ALT 36 Alkaline Phosphatase 806 H Total Protein 7.1 Albumin 2.8 L Lipase 16 Imaging Radiologist's Impressions: Impressions Abdomen/Pelvis CT 11/12/24 11:24 IMPRESSION: 1. Wall thickening and inflammation of a the cecum and ascending colon. Findings are suggestive of infectious/inflammatory segmental colitis. There is also mild wall thickening of the descending colon, sigmoid colon and rectum, uncertain significance. Major differential would include colonic wall thickening related to portal hypertension. 2. Small to moderate volume intraperitoneal ascites. This is most notable abutting the liver. 3. Cirrhotic morphology of the liver. No suspicious liver lesion on this unenhanced exam. 4. Cholecystectomy. 5. Additional Ancillary findings as discussed. Electronically signed by: Jack Shah MD 11/12/2024 01:39 PM EDT RP Assessment and Plan (1) Colitis: Status: Acute Plan 74-year-old man admitted with abdominal pain secondary to colitis Colitis Infectious versus inflammatory with small to moderate volume intraperitoneal ascites Start IV Zosyn Gastroenterology consultation Check stool studies and C diff Clear liquid diet for now KELSEY Likely secondary to GI losses and dehydration Creatinine 3.36 IV fluids Nephrology consultation Avoid nephrotoxins Hypertension Elevated blood pressure hold lisinopril due to KELSEY, give amlodipine Hydralazine IV for systolic blood pressure greater than 180 Liver cirrhosis Alk phos greater than 800 GI consultation Hyperlipidemia Hold statin for now DVT prophylaxis with Eliquis Full code Quality Stroke Does the patient have a stroke diagnosis?: No VTE Prior VTE?: No VTE Risk Level:: Medical - moderate - high VTE Device Contraindication: Treatment Not Indicated VTE Drug Contraindication: N/A - Med Ordered
--- NOTE | 2024-11-12 16:25 | PHA.MEDREC ---
Addendum entered by Mike Toth [facility] 11/12/24 18:32: Med rec reviewed Original Note: Pharmacy Consult ? Medication Reconciliation Pharmacy has completed the medication reconciliation. Spoke with patient and he confirmed the med rec by reading down the list I had printed out. He confirmed he is still taking Eliquis 2.5mg twice a day and stated it was a Blood Thinner and he gets it consistently filled at [facility]; looking in claims the Eliquis has not been filled since February 2024 for 90 days and speaking with [facility] they stated he has not gotten that since February 2024 for 90 days. The patient confirmed the Calcitriol 0.25mg capsule and stated he takes it every other day but did not remember the last time he took it but states he knows he took it in the last few days. He confirmed he took his medications yesterday.
[2024-11-12 18:37] VITALS: BP 125/80; PULSE 97; RESP 14; TEMP 36.2; O2SAT 95
[2024-11-12] MEDS: Apixaban 2.5 MG TABLET PO (20:10)
[2024-11-12] MEDS: Acetaminophen 325 MG TABLET 650 MG PO (20:10)
[2024-11-12] MEDS: Piperacillin Sodium/Tazobactam 2.25 GM in 0.9 % Sodium Chloride 50 ML IV (20:11)
[2024-11-12 20:20] VITALS: BP 176/89; PULSE 93; RESP 16; TEMP 36.7; O2SAT 94
[2024-11-13] VITALS (9 sets, daily range): BP systolic 162–177; BP diastolic 73–96; PULSE 86–109; RESP 14–26; TEMP 36.4–36.7; O2SAT 92–97
--- NOTE | 2024-11-13 02:24 | PC.NURSE ---
pt given commode to attempt to bm, pt independently got up to commode, pt unable to move bowels at this time.
[2024-11-13] MEDS: Piperacillin Sodium/Tazobactam 2.25 GM in 0.9 % Sodium Chloride 50 ML IV ×4 (03:48→20:08)
[2024-11-13 05:39] LABS: Alanine Aminotransferase 36 U/L (0-40); Albumin Level 2.5 g/dL (3.5-5.0); Anion Gap 16 (12-20); Aspartate Amino Transferase 46 U/L (5-37); Bilirubin Total 1.4 mg/dL (0.0-1.0); Blood Urea Nitrogen 106 mg/dL (9-16); Calcium 9.2 mg/dL (8.4-10.2); Carbon Dioxide 21 mmol/L (22-29); Chloride 107 mmol/L (96-108); Creatinine Clr Calc Pharmacy 24.1; Estimated Glomerular Filt Rate 22; Glucose Random 118 mg/dL (60-115); Potassium 3.7 mmol/L (3.3-5.1); Sodium 140 mmol/L (135-145); Total Protein 6.9 g/dL (6.5-8.0)
[2024-11-13 05:44] LABS: Alkaline Phosphatase 883 U/L (39-117)
[2024-11-13] MEDS: Acetaminophen 325 MG TABLET 650 MG PO ×2 (06:33→22:36)
[2024-11-13] MEDS: amLODIPine Besylate 2.5 MG TABLET 7.5 MG PO (08:22)
[2024-11-13] MEDS: Apixaban 2.5 MG TABLET PO ×2 (08:23→20:08)
--- NOTE | 2024-11-13 08:32 | PM.GICN ---
History of Present Illness Data of Consult Service Date: 11/13/24 Primary Care Provider: Blanca Anderson MD HPI Reason for consult: colitis 74-year-old man w hx of HLD, HTN, a fib on eliquis, CKD4 baseline cr around 2.17, CHF/cardiomyopathy EF 35-40%, T2DM (no insulin), anemia of chronic disease, hyperparathyroidism, and OA who I am seeing for assessment for colitis. He initially presented with sudden onset abdominal pain for 1 week in RLQ with cramping and constant sensation. Pain is 10/10 and radiates into the RUQ and is worse with food, not relieved with passing gas or stool, denies rectal bleeding, melena, diarrhea, nausea or vomiting. Denied fever, chills, sick contacts, recent travel. Patient was discharged from [facility] on 10/25/2024 and at that time had cholecystectomy. LABS: elevated white blood cell count of 17.0, creatinine 3.36, alk phos 806, Imaging: cirrhotic liver noted on abdominal CT as well as wall thickening and inflammation of the cecum and ascending colon suggestive of infectious versus inflammatory segmental colitis. ascites noted. Review of Systems Review of Systems: Constitutional : No Weight loss, No Fever, No Chills ENT/Mouth : No sore throat, No Rhinorrhea Eyes: No Swelling, No Redness Cardiovascular : No Chest Pain, No SOB, No Edema Respiratory : No Cough, No Sputum, No Wheezing Gastrointestinal : see HPI Genitourinary : NO Dysuria, No Urinary Frequency, No Hematuria, No Urgency Musculoskeletal : no joint pain, No Myalgias, No Joint Swelling Skin : No Skin Lesions, No rash Neuro : No Weakness, No Numbness, No Dizziness, No Headache Psych : No Anxiety/Panic, No Depression Heme/Lymph: No Bruising, No Lymphadenopathy Endocrine : No Polyuria, No Polydipsia All other systems reviewed and are negative. [facility] Past Medical History Medical History Obesity (BMI 30.0-34.9) Cardiomyopathy CKD (chronic kidney disease) Stroke Chronic atrial fibrillation CHF (congestive heart failure) CKD (chronic kidney disease) Former smoker Depression Diabetes High cholesterol Hypertension Family History Family History Father No problems noted. Mother Diabetes Hypertension Cancer Son No problems noted. Son No problems noted. Son No problems noted. Daughter No problems noted. Daughter No problems noted. Surgical History Surgical History History of aneurysm History of shoulder surgery Social History Social History Household Members: None Household Members Other:: Housing: Apartment Do you presently have visiting nurse or other home services: No Alcohol intake: never Patient Tobacco Use Status: Never used Tobacco Smoked in Last 30 Days: No Use of substances other than those prescribed or required for medical reasons: No Have you been hit, kicked, punched, or otherwise hurt by someone within the past year? If so, by whom?: No Do you feel safe in your current relationship?: Yes Is there a partner from a previous relationship who is making you feel unsafe now?: No Are you made to feel afraid or neglected: No Advance Directives: No Advance Directives Information Provided: Yes Do you have a plan to hurt others: No Plan Recently lost weight without trying: No Nutrition Risks: No Nutritional Risk Poor oral hygiene: No service: No Current occupational status: disabled Meds Allergies Allergy/AdvReac Type Severity Reaction Status Date / Time No Known Allergies Allergy Verified 11/12/24 11:36 [No Known Allergies*] Active Medications: Current Medications Acetaminophen (Acetaminophen 325 Mg Tablet) 650 mg PO Q6H PRN PRN Reason: Pain, Mild 1-3,fever,headache Last Admin: 11/13/24 06:33 Dose: 650 mg Amlodipine Besylate (Amlodipine Besylate 2.5 Mg Tablet) 7.5 mg PO DAILY SHAUNNA; Protocol Last Admin: 11/13/24 08:22 Dose: 7.5 mg Apixaban (Apixaban 2.5 Mg Tablet) 2.5 mg PO BID SHAUNNA Last Admin: 11/13/24 08:23 Dose: 2.5 mg Calcium Carbonate (Calcium Carbonate 750 Mg Tab.Chew) 750 mg PO Q4H PRN PRN Reason: Heartburn Hydralazine HCl (Hydralazine Hcl 20 Mg/Ml Vial) 5 mg IVPUSH Q6H PRN; Protocol PRN Reason: SBP>180 Piperacillin Sod/Tazobactam (Sod 2.25 gm/ Sodium Chloride) 50 mls @ 100 mls/hr IV Q6H [facility] Last Admin: 11/13/24 08:28 Dose: 100 mls/hr Magnesium Hydroxide (Milk Of Magnesia 30 Ml Oral.Susp) 30 ml PO DAILY PRN PRN Reason: Constipation Melatonin (Melatonin 3 Mg Tablet) 6 mg PO BEDTIME PRN PRN Reason: Insomnia Ondansetron HCl (Ondansetron Hcl 4 Mg/2 Ml Vial) 4 mg IVPUSH Q8H PRN PRN Reason: Nausea and Vomiting Sodium Chloride (0.9 % Sodium Chloride Flush 3 Ml Syringe) 3 ml IVFLUSH QSHIFT [facility] Last Admin: 11/13/24 00:22 Dose: Not Given Home Medications ?Medication ?Instructions ?Recorded ?Confirmed ?Last Taken ?Type blood-glucose meter #1 ea 05/14/20 01/14/24 Unknown History lancets #100 ea 05/14/20 01/14/24 Unknown History atorvastatin 40 mg tablet 40 mg PO DAILY 12/19/22 11/12/24 11/11/24 History apixaban 2.5 mg tablet (Eliquis) 2.5 mg PO BID 10/20/24 11/12/24 11/11/24 History lisinopril 40 mg tablet 40 mg PO DAILY 10/20/24 11/12/24 11/11/24 History amlodipine 10 mg tablet 10 mg PO QAM 11/12/24 11/12/24 Unknown History Physical Exam Vital Signs: Vital Signs: Last Vital Signs Temp 98.0 F 11/13/24 06:40 Pulse 100 11/13/24 06:40 Resp 16 11/13/24 06:40 BP 168/81 H 11/13/24 06:40 Pulse Ox 97 11/13/24 06:40 O2 Del Method Room Air 11/13/24 06:40 BMI result Body Mass Index 29.7 EXAM: GENERAL: The patient is well developed and nontoxic. VITAL SIGNS:see workflow HEENT: Nonicteric sclerae, PERRLA, EOMI. Oropharynx clear. Moist mucous membranes. Conjunctivae appear well perfused. No thyroid mass. CHEST: Chest wall is nontender. HEART: Regular rate and rhythm without murmurs. LUNGS: Clear to auscultation bilaterally. ABDOMEN: Soft, positive bowel sounds, tender RLQ and RUQ, no organomegaly.no flank tenderness SKIN: No rash, no excessive bruising, petechiae, or purpura. NEUROLOGIC: Cranial nerves II-XII intact without motor/sensory deficit. Psych: normal affect Results Labs 11/12/24 12:24 11/13/24 04:34 Labs: Short CBC 11/12/24 Range/Units 12:24 WBC 17.0 H (4.8-10.8) X10*3/uL Hgb 14.3 (14.0-18.0) g/dl Hct 41.7 L (42.0-52.0) % Plt Count 439 H D (160-400) X10*3/uL BMP 11/12/24 11/13/24 12:24 04:34 Sodium 137 140 Potassium 3.7 3.7 Chloride 104 107 Carbon Dioxide 23 21 L BUN 109 H 106 H Creatinine 3.36 H 2.89 H Calcium 9.6 9.2 Liver Function 11/12/24 11/13/24 Range/Units 12:24 04:34 Total Bilirubin 1.4 H 1.4 H (0.0-1.0) mg/dL AST 41 H 46 H (5-37) U/L ALT 36 36 (0-40) U/L Alkaline Phosphatase 806 H 883 H (39-117) U/L Albumin 2.8 L 2.5 L (3.5-5.0) g/dL Imaging CT scan - abdomen: Attestation: I personally reviewed and interpreted this imaging study as follows: (asc colon with stranding and thickening, ascites noted, cirrhotic liver, atrophic kidneys, atherosclerosis ) Assessment and Plan (1) Colitis: Status: Acute Plan 1/ colitis, probably infectious, maybe c diff given recent hospital visits -less likely ischemic in origin 2/ abn LFT, ? retained debris or sludge in CBD s/p cholecystectomy, or gut origin PLAN: 1/ tap ascites for cell counts, c/s 2/ cont with abx for moment 3/ stool pcr and c diff 4/ US to check for retained stones in CBD, may need MRCP 5/ monitor lactate, if rising then CTA r/o mesenteric ischemia Procedures Date of Service Date of Service: 11/13/24
[2024-11-13] MEDS: Morphine Sulfate 2 MG/ML CARTRIDGE IVPUSH ×3 (10:43→20:08)
--- NOTE | 2024-11-13 12:25 | P.PNIM_ITS ---
Subjective Subjective Date of Service: 11/13/24 Interval History: seen and examined this morning Follow-up for colitis history obtained with the assistance of a engraver set up operator Patient reports right-sided abdominal pain. He denies any associated nausea, vomiting, diarrhea Review of Systems Review of Systems: Yes all other systems are reviewed and are negative Constitutional Constitutional: Denies chills and Denies fever(s) Physical Exam 2 Vital Signs: Vital Signs: Last Vital Signs Temp 97.8 F 11/13/24 08:47 Pulse 92 11/13/24 08:47 Resp 16 11/13/24 08:47 BP 167/87 H 11/13/24 08:47 Pulse Ox 93 11/13/24 08:47 O2 Del Method Room Air 11/13/24 08:47 BMI result Body Mass Index 29.7 Const: General: no acute distress, alert and awake Nutritional Appearance: average body habitus Orientation/consciousness: patient oriented x3 Resp: Effort & Inspection: normal respiratory effort, able to speak in complete sentences, no respiratory distress and no use of accessory muscles Cardio: Rate: regular rate GI: Other: right side tenderness Inspection: No distended Palpation (GI): Soft to palpation Neuro: Other: grossly nonfocal General: patient oriented x3 and moves all extremities Extrem: General: Yes no pedal edema Objective Data Active Medications Acetaminophen (Acetaminophen 325 Mg Tablet) 650 mg PO Q6H PRN PRN Reason: Pain, Mild 1-3,fever,headache Last Admin: 11/13/24 06:33 Dose: 650 mg Documented By: JENNIFER Amlodipine Besylate (Amlodipine Besylate 2.5 Mg Tablet) 7.5 mg PO DAILY [facility]; Protocol Last Admin: 11/13/24 08:22 Dose: 7.5 mg Documented By: ABDIEL Apixaban (Apixaban 2.5 Mg Tablet) 2.5 mg PO BID [facility] Last Admin: 11/13/24 08:23 Dose: 2.5 mg Documented By: ABDIEL Calcium Carbonate (Calcium Carbonate 750 Mg Tab.Chew) 750 mg PO Q4H PRN PRN Reason: Heartburn Hydralazine HCl (Hydralazine Hcl 20 Mg/Ml Vial) 5 mg IVPUSH Q6H PRN; Protocol PRN Reason: SBP>180 Piperacillin Sod/Tazobactam (Sod 2.25 gm/ Sodium Chloride) 50 mls @ 100 mls/hr IV Q6H [facility] Last Infusion: 11/13/24 09:00 Dose: Infused Documented By: MARTINE Magnesium Hydroxide (Milk Of Magnesia 30 Ml Oral.Susp) 30 ml PO DAILY PRN PRN Reason: Constipation Melatonin (Melatonin 3 Mg Tablet) 6 mg PO BEDTIME PRN PRN Reason: Insomnia Morphine Sulfate (Morphine Sulfate 2 Mg/Ml Cartridge) 2 mg IVPUSH Q4H PRN; Protocol PRN Reason: Pain, Severe (Pain Scale 7-10) Last Admin: 11/13/24 10:43 Dose: 2 mg Documented By: MARTINE Ondansetron HCl (Ondansetron Hcl 4 Mg/2 Ml Vial) 4 mg IVPUSH Q8H PRN PRN Reason: Nausea and Vomiting Sodium Chloride (0.9 % Sodium Chloride Flush 3 Ml Syringe) 3 ml IVFLUSH QSHIFT [facility] Last Admin: 11/13/24 08:35 Dose: Not Given Documented By: ABDIEL Non-Admin Reason: IV Running Labs 11/12/24 12:24 11/13/24 04:34 Labs: Laboratory Results - last 24 hr 11/12/24 11/12/24 11/13/24 12:24 14:38 04:34 MCV 84.4 MCH 28.9 MCHC 34.3 RDW 15.1 Plt Count 439 H D MPV 8.5 L Immature Gran % (Auto) 0.9 H Neut % (Auto) 92.5 H Lymph % (Auto) 2.6 L [place] % (Auto) 3.8 Eos % (Auto) 0.1 Baso % (Auto) 0.1 Lymph # (Auto) 0.4 L [place] # (Auto) 0.7 Eos # (Auto) 0.0 Baso # (Auto) 0.0 Abs Immat Gran (auto) 0.15 H Absolute Neuts (auto) 15.7 H Absolute Nucleated RBC 0.000 Nucleated RBC % (auto) 0.0 Smear Tech's Comments VERIFIED Anion Gap 14 16 Estim Creat Clear Calc 20.8 24.1 Estimated GFR 18 22 Random Glucose 166 H 118 H Lactic Acid 1.3 Calcium 9.6 9.2 Total Bilirubin 1.4 H 1.4 H AST 41 H 46 H ALT 36 36 Alkaline Phosphatase 806 H 883 H Total Protein 7.1 6.9 Albumin 2.8 L 2.5 L Lipase 16 Assessment and Plan (1) Colitis: Status: Acute (2) KELSEY (acute kidney injury): Status: Acute Plan This is a 74-year-old male with history of AFib on Eliquis, CKD 4, CHF, diabetes, anemia of chronic disease, hyperparathyroidism was admitted in October found to have acute cholecystitis status post cholecystectomy on October 22 who returned to the emergency department on November 12 and admitted with abdominal pain secondary to colitis Acute Colitis Infectious versus inflammatory stool studies and C diff pending but no further diarrhea thus far continue IV Zosyn Clear liquid diet for now GI following abdominal pain Possibly due to above check abdominal ultrasound to eval for retained debris/sludge paracentesis to eval for SBP KELSEY Likely secondary to GI losses and dehydration Creatinine 3.36, trending down to 2.89, still above baseline hold lisinopril Nephrology consultation pending Avoid nephrotoxins follow BMP Hypertension Elevated blood pressure hold lisinopril due to KELSEY, continue amlodipine Hydralazine IV for systolic blood pressure greater than 180 Liver cirrhosis Alk phos greater than 800 GI consultation - paracentesis as above Hyperlipidemia Hold statin for now DVT prophylaxis with Eliquis Full code Quality Stroke Does the patient have a stroke diagnosis?: No VTE Prior VTE?: No VTE Risk Level:: Medical - moderate - high VTE Device Contraindication: Treatment Not Indicated VTE Drug Contraindication: N/A - Med Ordered
--- NOTE | 2024-11-13 14:40 | MHC.CM.PN ---
PT LIVES WITH SON HE IS INDEPENDENT HAD NO SERVICES HAS OWN RIDE [facility] PL[employer] HOME N/S
[2024-11-13] MEDS: 0.9 % Sodium Chloride Flush 3 ML SYRINGE IVFLUSH ×2 (15:58→21:10)
[2024-11-13] MEDS: Lidocaine HCl 1 % MPF 5 ML VIAL SUBCUT (16:22)
[2024-11-13 16:31] LABS: Glucose, Whole Blood 125 mg/dL (60-115)
[2024-11-13 16:48] LABS: MN% 70.1 %; PMN% 29.9 %; RBC Peritoneal Fluid 0.004 X10*6/uL; WBC Peritoneal Fluid 7.159 X10*3/uL
--- NOTE | 2024-11-13 17:56 | P.CONNP_ITS ---
History of Present Illness Reason for Consult Consult date: 11/13/24 Reason for consult: KELSEY Chief Complaint Chief complaint: Colitis History of Present Illness Narrative: 74-year-old man with CKD who follows with me in office presented to ER with complaints of abdominal pain that started a few days ago. He denied any nausea or vomiting. Reported non bloody diarrhea. Denied fever, chills, sick contacts, recent travel. Patient was discharged from [facility] on 10/25/2024 and at that time had cholecystectomy. At presentation he had an elevated white blood cell count of 17.0, creatinine 3.36, alk phos 806, cirrhotic liver noted on abdominal CT as well as wall thickening and inflammation of the cecum and ascending colon suggestive of infectious versus inflammatory segmental colitis. In the ER patient was given morphine, Zofran, IV fluids, Zosyn. He was admitted for further management and treatment of acute colitis & KELSEY. Nephrology has been consulted to assist in his clinical care during his current hospital stay Review of Systems Review of Systems Yes all other systems are reviewed and are negative PMFSH Past Medical History Medical History Obesity (BMI 30.0-34.9) Cardiomyopathy CKD (chronic kidney disease) Stroke Chronic atrial fibrillation CHF (congestive heart failure) CKD (chronic kidney disease) Former smoker Depression Diabetes High cholesterol Hypertension Family History Family History Father No problems noted. Mother Diabetes Hypertension Cancer Son No problems noted. Son No problems noted. Son No problems noted. Daughter No problems noted. Daughter No problems noted. Surgical History Surgical History History of aneurysm History of shoulder surgery Social History Social History Household Members: None Household Members Other:: Housing: Apartment Do you presently have visiting nurse or other home services: No Alcohol intake: never Patient Tobacco Use Status: Never used Tobacco Smoked in Last 30 Days: No Use of substances other than those prescribed or required for medical reasons: No Currently Displaying Signs/Symptoms of Drug Intoxication Withdrawal: No Have you been hit, kicked, punched, or otherwise hurt by someone within the past year? If so, by whom?: No Do you feel safe in your current relationship?: Yes Is there a partner from a previous relationship who is making you feel unsafe now?: No Are you made to feel afraid or neglected: No Advance Directives: No Advance Directives Information Provided: Yes Do you have a plan to hurt others: No Plan Recently lost weight without trying: No Nutrition Risks: No Nutritional Risk Poor oral hygiene: No service: No Current occupational status: disabled Meds Allergies Allergy/AdvReac Type Severity Reaction Status Date / Time No Known Allergies Allergy Verified 11/12/24 11:36 [No Known Allergies*] Active Medications: Current Medications Acetaminophen (Acetaminophen 325 Mg Tablet) 650 mg PO Q6H PRN PRN Reason: Pain, Mild 1-3,fever,headache Last Admin: 11/13/24 06:33 Dose: 650 mg Amlodipine Besylate (Amlodipine Besylate 10 Mg Tablet) 10 mg PO DAILY [facility]; Protocol Apixaban (Apixaban 2.5 Mg Tablet) 2.5 mg PO BID [facility] Last Admin: 11/13/24 08:23 Dose: 2.5 mg Calcium Carbonate (Calcium Carbonate 750 Mg Tab.Chew) 750 mg PO Q4H PRN PRN Reason: Heartburn Hydralazine HCl (Hydralazine Hcl 20 Mg/Ml Vial) 5 mg IVPUSH Q6H PRN; Protocol PRN Reason: SBP>180 Piperacillin Sod/Tazobactam (Sod 2.25 gm/ Sodium Chloride) 50 mls @ 100 mls/hr IV Q6H [facility] Last Infusion: 11/13/24 16:27 Dose: Infused Magnesium Hydroxide (Milk Of Magnesia 30 Ml Oral.Susp) 30 ml PO DAILY PRN PRN Reason: Constipation Melatonin (Melatonin 3 Mg Tablet) 6 mg PO BEDTIME PRN PRN Reason: Insomnia Morphine Sulfate (Morphine Sulfate 2 Mg/Ml Cartridge) 2 mg IVPUSH Q4H PRN; Protocol PRN Reason: Pain, Severe (Pain Scale 7-10) Last Admin: 11/13/24 15:54 Dose: 2 mg Ondansetron HCl (Ondansetron Hcl 4 Mg/2 Ml Vial) 4 mg IVPUSH Q8H PRN PRN Reason: Nausea and Vomiting Sodium Chloride (0.9 % Sodium Chloride Flush 3 Ml Syringe) [address] [facility] Last Admin: 11/13/24 15:58 Dose: 3 ml Home Medications ?Medication ?Instructions ?Recorded ?Confirmed ?Last Taken ?Type blood-glucose meter #1 ea 05/14/20 01/14/24 Unknown History lancets #100 ea 05/14/20 01/14/24 Unknown History atorvastatin 40 mg tablet 40 mg PO DAILY 12/19/22 11/12/24 11/11/24 History apixaban 2.5 mg tablet (Eliquis) 2.5 mg PO BID 10/20/24 11/12/24 11/11/24 History lisinopril 40 mg tablet 40 mg PO DAILY 10/20/24 11/12/24 11/11/24 History amlodipine 10 mg tablet 10 mg PO QAM 11/12/24 11/12/24 Unknown History Physical Exam Vital Signs: Last Vital Signs Temp 97.7 F 11/13/24 16:00 Pulse 95 11/13/24 16:00 Resp 14 11/13/24 16:00 BP 162/88 H 11/13/24 17:42 Pulse Ox 95 11/13/24 16:00 O2 Del Method Room Air 11/13/24 16:00 BMI result Body Mass Index 29.7 Const General: comfortable and no acute distress Orientation/consciousness: patient oriented x3 HEENT Head: Yes normocephalic Mouth: Normal oral and palatal mucosa present Eyes EOM: EOMs intact bilaterally Neck Neck: Yes supple Resp Auscultation: clear to auscultation bilaterally Cardio Jugular venous distension: no JVD Rate: regular rate GI Palpation (GI): Soft to palpation Auscultation: normal bowel sounds Skin General skin exam: no rashes or lesions noted Neuro General: patient oriented x3 and moves all extremities Extrem General: Yes no pedal edema Results Lab Results 11/12/24 12:24 11/13/24 04:34 Lab results: Chemistry 11/12/24 11/13/24 12:24 04:34 Sodium 137 140 Potassium 3.7 3.7 Carbon Dioxide 23 21 L BUN 109 H 106 H Creatinine 3.36 H 2.89 H Calcium 9.6 9.2 Hematology 11/12/24 12:24 WBC 17.0 H Hgb 14.3 Plt Count 439 H D Assessment and Plan (1) KELSEY (acute kidney injury): Status: Acute Plan KELSEY due to compromise in renal perfusion with resultant tubular injury No reason to suspect GN/AIN. UO OK. ACEI on hold. Was given IVF Serum creatinine better. No reason to suspect AIN/GN No indication for renal replacement. C/W current supportive mgt Procedures Date of Service Date of Service: 11/13/24
[2024-11-13 18:02] LABS: BF Shift QC OK YES; Lymphocyte Peritoneal Fl 28 %; Neutrophils Peritoneal Fluid 22 %
[2024-11-13 18:03] LABS: Monocytes Peritoneal Fl 8 %; Other Peritioneal Fl 42 %
[2024-11-13] MEDS: Melatonin 3 MG TABLET 6 MG PO (20:08)
[2024-11-14] MEDS: Morphine Sulfate 2 MG/ML CARTRIDGE IVPUSH ×3 (00:44→17:57)
[2024-11-14] MEDS: Piperacillin Sodium/Tazobactam 2.25 GM in 0.9 % Sodium Chloride 50 ML IV ×2 (02:48→07:30)
[2024-11-14] MEDS: Zolpidem Tartrate 5 MG TABLET PO (02:48)
[2024-11-14 03:04] VITALS: BP 139/67; PULSE 97; RESP 18; TEMP 36.5; O2SAT 94
[2024-11-14] MEDS: Acetaminophen 325 MG TABLET 650 MG PO (05:01)
[2024-11-14] MEDS: Morphine Sulfate 4 MG/ML CARTRIDGE IVPUSH (05:59)
[2024-11-14 06:16] LABS: Alanine Aminotransferase 44 U/L (0-40); Albumin Level 2.6 g/dL (3.5-5.0); Alkaline Phosphatase 888 U/L (39-117); Anion Gap 16 (12-20); Aspartate Amino Transferase 63 U/L (5-37); Bilirubin Direct 1.1 mg/dL (0.0-0.5); Bilirubin Total 1.5 mg/dL (0.0-1.0); Blood Urea Nitrogen 98 mg/dL (9-16); Calcium 9.3 mg/dL (8.4-10.2); Carbon Dioxide 21 mmol/L (22-29); Chloride 107 mmol/L (96-108); Estimated Glomerular Filt Rate 22; Glucose Random 134 mg/dL (60-115); Potassium 3.8 mmol/L (3.3-5.1); Sodium 140 mmol/L (135-145); Total Protein 6.7 g/dL (6.5-8.0)
[2024-11-14 06:33] LABS: Hematocrit 41.5 % (42.0-52.0); Hemoglobin 13.8 g/dl (14.0-18.0); Mean Corpuscular HGB Conc 33.3 g/dl (31.0-36.0); Mean Corpuscular Hemoglobin 28.4 pg (27.0-33.0); Mean Corpuscular Volume 85.4 fL (80.0-98.0); Mean Platelet Volume 8.8 fL (9.4-12.4); Platelet Count 432 X10*3/uL (160-400); Red Blood Count 4.86 X10*6/uL (4.60-5.80); Red Cell Distribution Width 15.4 % (11.0-16.0); White Blood Count 14.9 X10*3/uL (4.8-10.8)
[2024-11-14] MEDS: amLODIPine Besylate 10 MG TABLET PO (07:30)
[2024-11-14] MEDS: Apixaban 2.5 MG TABLET PO ×2 (07:30→20:19)
[2024-11-14] MEDS: oxyCODONE HCl Immed Release 5 MG TABLET PO ×3 (08:10→20:19)
[2024-11-14 08:19] VITALS: BP 158/93; PULSE 88; RESP 18; TEMP 36.4; O2SAT 94
[2024-11-14 09:21] LABS: Albumin Peritoneal Fluid 1.8; Total Protein Peritoneal Fluid 3.6
--- NOTE | 2024-11-14 11:41 | MHC.CM.PN ---
Per MD rounds patient not medically cleared for dc. CM will continue to follow.
[2024-11-14] MEDS: cefTRIAXone sodium 2 GM VIAL IVPUSH (13:39)
[2024-11-14] MEDS: metroNIDAZOLE/NS 500 MG/100 ML PIGGYBACK 100 MG IV ×2 (13:39→20:19)
[2024-11-14] MEDS: 0.9 % Sodium Chloride Flush 3 ML SYRINGE IVFLUSH ×2 (15:02→20:19)
[2024-11-14 15:11] VITALS: BP 147/78; PULSE 90; RESP 18; TEMP 36.6; O2SAT 95
--- NOTE | 2024-11-14 17:32 | HO.PM.IMPN ---
Subjective Subjective Date of Service: 11/14/24 Interval History: Seen and examined this morning Follow-up for abdominal pain Patient reports improvement in right-sided abdominal pain Continues to deny diarrhea, nausea, vomiting Review of Systems Review of Systems: Yes all other systems are reviewed and are negative Constitutional Constitutional: Denies chills and Denies fever(s) Cardiovascular Cardiovascular: Denies chest pain, Denies palpitations and Denies dyspnea Respiratory Respiratory: Denies cough and Denies dyspnea Endocrine Endocrine: Denies palpitations Physical Exam Vital Signs: Vital Signs: Last Vital Signs Temp 97.8 F 11/14/24 15:11 Pulse 90 11/14/24 15:11 Resp 18 11/14/24 15:11 BP 147/78 H 11/14/24 15:11 Pulse Ox 95 11/14/24 15:11 O2 Del Method Room Air 11/14/24 15:11 BMI result Body Mass Index 29.7 Const: General: no acute distress, alert and awake Nutritional Appearance: average body habitus Orientation/consciousness: patient oriented x3 Resp: Effort & Inspection: normal respiratory effort, able to speak in complete sentences, no respiratory distress and no use of accessory muscles Cardio: Rate: regular rate GI: Other: right side tenderness Inspection: No distended Palpation (GI): Soft to palpation Neuro: Other: grossly nonfocal General: patient oriented x3 and moves all extremities Extrem: General: Yes no pedal edema Objective Data Active Medications Acetaminophen (Acetaminophen 325 Mg Tablet) 650 mg PO Q6H PRN PRN Reason: Pain, Mild 1-3,fever,headache Last Admin: 11/14/24 05:01 Dose: 650 mg Documented By: MAXI Amlodipine Besylate (Amlodipine Besylate 10 Mg Tablet) 10 mg PO DAILY [facility]; Protocol Last Admin: 11/14/24 07:30 Dose: 10 mg Documented By: MEKHI Apixaban (Apixaban 2.5 Mg Tablet) 2.5 mg PO BID [facility] Last Admin: 11/14/24 07:30 Dose: 2.5 mg Documented By: MEKHI Calcium Carbonate (Calcium Carbonate 750 Mg Tab.Chew) 750 mg PO Q4H PRN PRN Reason: Heartburn Ceftriaxone Sodium (Ceftriaxone Sodium 2 Gm Vial) 2 gm IVPUSH Q24H [facility] Last Admin: 11/14/24 13:39 Dose: 2 gm Documented By: MEKHI Hydralazine HCl (Hydralazine Hcl 20 Mg/Ml Vial) 5 mg IVPUSH Q6H PRN; Protocol PRN Reason: SBP>180 Metronidazole (Flagyl) 500 mg in 100 mls @ 100 mls/hr IV Q8H [facility] Last Infusion: 11/14/24 14:42 Dose: Infused Documented By: MEKHI Magnesium Hydroxide (Milk Of Magnesia 30 Ml Oral.Susp) 30 ml PO DAILY PRN PRN Reason: Constipation Melatonin (Melatonin 3 Mg Tablet) 6 mg PO BEDTIME PRN PRN Reason: Insomnia Last Admin: 11/13/24 20:08 Dose: 6 mg Documented By: MAIX Morphine Sulfate (Morphine Sulfate 2 Mg/Ml Cartridge) 2 mg IVPUSH Q4H PRN; Protocol PRN Reason: Pain, Severe (Pain Scale 7-10) Last Admin: 11/14/24 04:45 Dose: 2 mg Documented By: MAXI Ondansetron HCl (Ondansetron Hcl 4 Mg/2 Ml Vial) 4 mg IVPUSH Q8H PRN PRN Reason: Nausea and Vomiting Oxycodone HCl (Oxycodone Hcl Immed Release 5 Mg Tablet) 5 mg PO Q6H PRN PRN Reason: Pain, Moderate(Pain Scale 4-6) Last Admin: 11/14/24 13:39 Dose: 5 mg Documented By: MEKHI Sodium Chloride (0.9 % Sodium Chloride Flush 3 Ml Syringe) 3 ml IVFLUSH [facility] Last Admin: 11/14/24 15:02 Dose: 3 ml Documented By: FAITH Zolpidem Tartrate (Zolpidem Tartrate 5 Mg Tablet) 5 mg PO BEDTIME PRN PRN Reason: Insomnia Last Admin: 11/14/24 02:48 Dose: 5 mg Documented By: MAXI Labs 11/14/24 05:44 11/14/24 05:44 Labs: Laboratory Results - last 24 hr 11/13/24 11/14/24 15:30 05:44 MCV 85.4 MCH 28.4 MCHC 33.3 RDW 15.4 Plt Count 432 H MPV 8.8 L Absolute Nucleated RBC 0.000 Nucleated RBC % (auto) 0.0 Anion Gap 16 Estim Creat Clear Calc 25.0 Estimated GFR 22 Random Glucose 134 H Calcium 9.3 Total Bilirubin 1.5 H Direct Bilirubin 1.1 H AST 63 H ALT 44 H Alkaline Phosphatase 888 H Total Protein 6.7 Albumin 2.6 L Peritoneal WBC 7.159 Peritoneal RBC 0.004 Periton Neutrophils 22 Periton Lymphocytes 28 Peritoneal Monocytes 8 Peritoneal Other Cells 42 Peritoneal Tot Protein 3.6 Peritoneal Albumin 1.8 Microbiology Microbiology Results: Microbiology 11/12/24 14:38 Blood Culture - Preliminary Blood - Venous No growth after 48 hours. 11/12/24 14:38 Blood Culture - Preliminary Blood - Venous No growth after 48 hours. 11/13/24 15:30 Gram Stain - Final Paracentesis Fluid Anaerobic Culture - Preliminary No growth to date. Body Fluid Culture - Preliminary No growth to date. Assessment and Plan (1) KELSEY (acute kidney injury): Status: Acute (2) Colitis: Status: Acute Plan This is a 74-year-old male with history of AFib on Eliquis, CKD 4, CHF, diabetes, anemia of chronic disease, hyperparathyroidism was admitted in October found to have acute cholecystitis status post cholecystectomy on October 22 who returned to the emergency department on November 12 and admitted with abdominal pain secondary to colitis Acute Colitis Infectious versus inflammatory. wbc trending down no further diarrhea, stool studies cancelled Initially treated with IV Zosyn, we will change to IV ceftriaxone/Flagyl due to elevated LFTs Advanced to full liquids GI following blood cultures negative abdominal pain Possibly due to above check abdominal ultrasound with normal CBD paracentesis to eval for SBP - with elevated WBCs but neutrophils not proportionally high- possible translocation from colitis continue IV abx as above fluid culture with no growth to date KELSEY Likely secondary to GI losses and dehydration Creatinine trending down to 2.79 hold lisinopril Nephrology following Avoid nephrotoxins follow BMP Hypertension Elevated blood pressure hold lisinopril due to KELSEY, continue amlodipine Hydralazine IV for systolic blood pressure greater than 180 Transaminitis/Liver cirrhosis Alk phos persistently elevated GI consultation - paracentesis as above will change abx in the event zosyn is contributing to elevated numbers follow LFTs Hyperlipidemia Hold statin for now DVT prophylaxis with Eliquis Full code Quality Stroke Does the patient have a stroke diagnosis?: No VTE Prior VTE?: No VTE Risk Level:: Medical - moderate - high VTE Device Contraindication: Treatment Not Indicated VTE Drug Contraindication: N/A - Med Ordered
--- NOTE | 2024-11-14 19:03 | P.PNNP_ITS ---
Subjective Subjective Date of Service: 11/14/24 Interval history: Seen and examined this morning ;Patient reports improvement in right-sided abdominal pain ;Continues to deny diarrhea, nausea, vomiting Physical Exam 2 Vital Signs: Vital Signs: Last Vital Signs Temp 97.8 F 11/14/24 15:11 Pulse 90 11/14/24 15:11 Resp 18 11/14/24 15:11 BP 147/78 H 11/14/24 15:11 Pulse Ox 95 11/14/24 15:11 O2 Del Method Room Air 11/14/24 15:11 BMI result Body Mass Index 29.7 Const: General: no acute distress Orientation/consciousness: patient oriented x3 Eyes: EOM: EOMs intact bilaterally Resp: Auscultation: diminished lung sounds Cardio: Rate: regular rate GI: Palpation (GI): Soft to palpation Neuro: General: patient oriented x3 and moves all extremities Objective Data Labs 11/14/24 05:44 11/14/24 05:44 Labs: Laboratory Results - last 24 hr 11/13/24 11/14/24 15:30 05:44 WBC 14.9 H RBC 4.86 Hgb 13.8 L Hct 41.5 L MCV 85.4 MCH 28.4 MCHC 33.3 RDW 15.4 Plt Count 432 H MPV 8.8 L Absolute Nucleated RBC 0.000 Nucleated RBC % (auto) 0.0 Sodium 140 Potassium 3.8 Chloride 107 Carbon Dioxide 21 L Anion Gap 16 BUN 98 H Creatinine 2.79 H Estim Creat Clear Calc 25.0 Estimated GFR 22 Random Glucose 134 H Calcium 9.3 Total Bilirubin 1.5 H Direct Bilirubin 1.1 H AST 63 H ALT 44 H Alkaline Phosphatase 888 H Total Protein 6.7 Albumin 2.6 L Peritoneal Tot Protein 3.6 Peritoneal Albumin 1.8 Microbiology Microbiology Results: Microbiology 11/12/24 14:38 Blood - Venous Blood Culture - Preliminary No growth after 48 hours. 11/12/24 14:38 Blood - Venous Blood Culture - Preliminary No growth after 48 hours. 11/13/24 15:30 Paracentesis Fluid Gram Stain - Final 11/13/24 15:30 Paracentesis Fluid Anaerobic Culture - Preliminary No growth to date. 11/13/24 15:30 Paracentesis Fluid Body Fluid Culture - Preliminary No growth to date. Procedures Date of Service Date of Service: 11/14/24 Assessment & Plan Assessment and plan (1) KELSEY (acute kidney injury): Status: Acute Plan KELSEY due to compromise in renal perfusion with resultant tubular injury No reason to suspect GN/AIN. UO OK. ACEI on hold Serum creatinine better. No reason to suspect AIN/GN No indication for renal replacement. C/W current supportive mgt Progress Note: Quality Stroke Does the patient have a stroke diagnosis?: No
[2024-11-14 19:21] VITALS: BP 140/72; PULSE 94; RESP 18; TEMP 36.1; O2SAT 93
[2024-11-15 01:39] VITALS: BP 138/93
[2024-11-15] MEDS: Morphine Sulfate 2 MG/ML CARTRIDGE IVPUSH ×4 (01:41→18:37)
[2024-11-15] MEDS: Zolpidem Tartrate 5 MG TABLET PO (03:05)
[2024-11-15 04:00] VITALS: PULSE 100; RESP 16; TEMP 36.6; O2SAT 92
[2024-11-15] MEDS: metroNIDAZOLE/NS 500 MG/100 ML PIGGYBACK 100 MG IV ×3 (05:00→20:36)
[2024-11-15 05:56] VITALS: O2SAT 94
[2024-11-15 07:11] LABS: Alanine Aminotransferase 30 U/L (0-40); Albumin Level 2.6 g/dL (3.5-5.0); Alkaline Phosphatase 895 U/L (39-117); Anion Gap 14 (12-20); Aspartate Amino Transferase 37 U/L (5-37); Bilirubin Direct 1.1 mg/dL (0.0-0.5); Bilirubin Total 1.6 mg/dL (0.0-1.0); Blood Urea Nitrogen 91 mg/dL (9-16); Calcium 9.1 mg/dL (8.4-10.2); Carbon Dioxide 22 mmol/L (22-29); Chloride 104 mmol/L (96-108); Creatinine Clr Calc Pharmacy 24.9; Estimated Glomerular Filt Rate 22; Glucose Random 125 mg/dL (60-115); Potassium 4.3 mmol/L (3.3-5.1); Sodium 136 mmol/L (135-145); Total Protein 6.6 g/dL (6.5-8.0)
[2024-11-15 07:20] VITALS: BP 174/88; PULSE 96; RESP 16; TEMP 37.1; O2SAT 94
[2024-11-15] MEDS: amLODIPine Besylate 10 MG TABLET PO (07:51)
[2024-11-15] MEDS: Apixaban 2.5 MG TABLET PO ×2 (07:51→20:30)
[2024-11-15] MEDS: 0.9 % Sodium Chloride Flush 3 ML SYRINGE IVFLUSH ×2 (07:52→20:36)
[2024-11-15] MEDS: oxyCODONE HCl Immed Release 5 MG TABLET PO ×2 (10:20→20:30)
[2024-11-15] MEDS: cefTRIAXone sodium 2 GM VIAL IVPUSH (12:25)
--- NOTE | 2024-11-15 15:04 | P.PNIM_ITS ---
Subjective Subjective Date of Service: 11/15/24 Interval History: seen and examined this morning follow up for abdominal pain History obtained with the assistance of a local hazmat driver Still reporting right-sided abdominal pain no nausea, vomiting, diarrhea Review of Systems Review of Systems: Yes all other systems are reviewed and are negative Constitutional Constitutional: Denies chills and Denies fever(s) Cardiovascular Cardiovascular: Denies chest pain, Denies palpitations and Denies dyspnea Respiratory Respiratory: Denies cough and Denies dyspnea Gastrointestinal Gastrointestinal: Reports abdominal pain, Denies diarrhea, Denies nausea and Denies vomiting Endocrine Endocrine: Denies palpitations Physical Exam 2 Vital Signs: Vital Signs: Last Vital Signs Temp 98.8 F 11/15/24 07:20 Pulse 96 11/15/24 07:20 Resp 16 11/15/24 07:20 BP 174/88 H 11/15/24 07:20 Pulse Ox 94 11/15/24 07:20 O2 Del Method Room Air 11/15/24 07:20 BMI result Body Mass Index 29.7 Const: General: cooperative, no acute distress, alert and awake Nutritional Appearance: average body habitus Orientation/consciousness: patient oriented x3 Resp: Effort & Inspection: normal respiratory effort, able to speak in complete sentences, no respiratory distress and no use of accessory muscles Cardio: Rate: regular rate GI: Other: right side tender to palpation Inspection: No distended Palpation (GI): Soft to palpation Neuro: Other: grossly nonfocal General: patient oriented x3 and moves all extremities Extrem: General: Yes no pedal edema Objective Data Active Medications Acetaminophen (Acetaminophen 325 Mg Tablet) 650 mg PO Q6H PRN PRN Reason: Pain, Mild 1-3,fever,headache Last Admin: 11/14/24 05:01 Dose: 650 mg Documented By: MAXI Amlodipine Besylate (Amlodipine Besylate 10 Mg Tablet) 10 mg PO DAILY [facility]; Protocol Last Admin: 11/15/24 07:51 Dose: 10 mg Documented By: BETHEL Apixaban (Apixaban 2.5 Mg Tablet) 2.5 mg PO BID [facility] Last Admin: 11/15/24 07:51 Dose: 2.5 mg Documented By: BETHEL Calcium Carbonate (Calcium Carbonate 750 Mg Tab.Chew) 750 mg PO Q4H PRN PRN Reason: Heartburn Ceftriaxone Sodium (Ceftriaxone Sodium 2 Gm Vial) 2 gm IVPUSH Q24H [facility] Last Admin: 11/15/24 12:25 Dose: 2 gm Documented By: FAVIAN Hydralazine HCl (Hydralazine Hcl 20 Mg/Ml Vial) 5 mg IVPUSH Q6H PRN; Protocol PRN Reason: SBP>180 Metronidazole (Flagyl) 500 mg in 100 mls @ 100 mls/hr IV Q8H [facility] Last Infusion: 11/15/24 13:53 Dose: Infused Documented By: FAVIAN Magnesium Hydroxide (Milk Of Magnesia 30 Ml Oral.Susp) 30 ml PO DAILY PRN PRN Reason: Constipation Melatonin (Melatonin 3 Mg Tablet) 6 mg PO BEDTIME PRN PRN Reason: Insomnia Last Admin: 11/13/24 20:08 Dose: 6 mg Documented By: MAXI Morphine Sulfate (Morphine Sulfate 2 Mg/Ml Cartridge) 2 mg IVPUSH Q4H PRN; Protocol PRN Reason: Pain, Severe (Pain Scale 7-10) Last Admin: 11/15/24 12:23 Dose: 2 mg Documented By: FAVIAN Ondansetron HCl (Ondansetron Hcl 4 Mg/2 Ml Vial) 4 mg IVPUSH Q8H PRN PRN Reason: Nausea and Vomiting Oxycodone HCl (Oxycodone Hcl Immed Release 5 Mg Tablet) 5 mg PO Q6H PRN PRN Reason: Pain, Moderate(Pain Scale 4-6) Last Admin: 11/15/24 10:20 Dose: 5 mg Documented By: FAVIAN Sodium Chloride (0.9 % Sodium Chloride Flush 3 Ml Syringe) [facility] Last Admin: 11/15/24 07:52 Dose: 3 ml Documented By: BETHEL Zolpidem Tartrate (Zolpidem Tartrate 5 Mg Tablet) 5 mg PO BEDTIME PRN PRN Reason: Insomnia Last Admin: 11/15/24 03:05 Dose: 5 mg Documented By: PAVEL-ANTHONY Labs 11/14/24 05:44 11/15/24 06:29 Labs: Laboratory Results - last 24 hr 11/15/24 06:29 Hold Purple Top SEE NOTE Anion Gap 14 Estim Creat Clear Calc 24.9 Estimated GFR 22 Random Glucose 125 H Calcium 9.1 Total Bilirubin 1.6 H Direct Bilirubin 1.1 H AST 37 ALT 30 Alkaline Phosphatase 895 H Total Protein 6.6 Albumin 2.6 L Microbiology Microbiology Results: Microbiology 11/13/24 15:30 Gram Stain - Final Paracentesis Fluid Anaerobic Culture - Preliminary No growth to date. Body Fluid Culture - Preliminary No growth to date. 11/12/24 14:38 Blood Culture - Preliminary Blood - Venous No growth after 48 hours. 11/12/24 14:38 Blood Culture - Preliminary Blood - Venous No growth after 48 hours. Assessment and Plan (1) KELSEY (acute kidney injury): Status: Acute (2) Colitis: Status: Acute Plan This is a 74-year-old male with history of AFib on Eliquis, CKD 4, CHF, diabetes, anemia of chronic disease, hyperparathyroidism was admitted in October found to have acute cholecystitis status post cholecystectomy on October 22 who returned to the emergency department on November 12 and admitted with abdominal pain secondary to colitis Acute Colitis Infectious versus inflammatory. wbc trending down no further diarrhea, stool studies cancelled Initially treated with IV Zosyn, we will change to IV ceftriaxone/Flagyl due to elevated LFTs Advanced to full liquids GI following blood cultures negative abdominal pain. still requiring frequent doses of iv narcotics for adequate pain control Possibly due to above abdominal ultrasound with normal CBD paracentesis to eval for SBP - with elevated WBCs but neutrophils not proportionally high- possible translocation from colitis continue IV abx as above fluid culture with no growth to date, cytology pending Transaminitis/Liver cirrhosis Alk phos persistently elevated GI consultation - paracentesis as above will change abx in the event zosyn is contributing to elevated numbers AST/ALT have normalized but bili/alk-phos still elevated-will proceed with MRCP KELSEY Likely secondary to GI losses and dehydration Creatinine has plateaued hold lisinopril Nephrology following Avoid nephrotoxins follow BMP Hypertension Elevated blood pressure hold lisinopril due to KELSEY, continue amlodipine Hydralazine IV for systolic blood pressure greater than 180 Hyperlipidemia Hold statin for now due to elevated LFTs DVT prophylaxis with Eliquis Full code Quality Stroke Does the patient have a stroke diagnosis?: No VTE Prior VTE?: No VTE Risk Level:: Medical - moderate - high VTE Device Contraindication: Treatment Not Indicated VTE Drug Contraindication: N/A - Med Ordered
[2024-11-15 15:17] VITALS: BP 152/70; PULSE 89; RESP 18; TEMP 36.9; O2SAT 92
[2024-11-15 20:00] VITALS: BP 180/89; PULSE 95; RESP 18; TEMP 36.4; O2SAT 92
[2024-11-15] MEDS: Melatonin 3 MG TABLET 6 MG PO (20:30)
--- NOTE | 2024-11-15 20:51 | PM.EVENT ---
Event Note Date of Service: 11/15/24 Event Note: MRCP with Large fluid collection in the right upper quadrant includes intracapsular fluid of the mass-effect against of the liver. Differential considerations include perihepatic abscess and large hematoma. General surgery eval Time Spent With Patient Time: Total time managing care of this patient today ____ minutes.
[2024-11-16] MEDS: Morphine Sulfate 2 MG/ML CARTRIDGE IVPUSH ×3 (02:37→15:41)
[2024-11-16 03:20] VITALS: BP 172/83; PULSE 94; RESP 14; TEMP 36.4; O2SAT 93
[2024-11-16] MEDS: metroNIDAZOLE/NS 500 MG/100 ML PIGGYBACK 100 MG IV ×3 (04:55→20:47)
[2024-11-16 07:09] LABS: Alanine Aminotransferase 29 U/L (0-40); Albumin Level 2.5 g/dL (3.5-5.0); Alkaline Phosphatase 894 U/L (39-117); Anion Gap 14 (12-20); Aspartate Amino Transferase 53 U/L (5-37); Bilirubin Total 1.4 mg/dL (0.0-1.0); Blood Urea Nitrogen 93 mg/dL (9-16); Calcium 9.1 mg/dL (8.4-10.2); Carbon Dioxide 22 mmol/L (22-29); Chloride 104 mmol/L (96-108); Creatinine Clr Calc Pharmacy 24.1; Estimated Glomerular Filt Rate 22; Glucose Random 137 mg/dL (60-115); Potassium 4.2 mmol/L (3.3-5.1); Sodium 136 mmol/L (135-145); Total Protein 6.9 g/dL (6.5-8.0)
[2024-11-16 07:25] LABS: Hematocrit 39.8 % (42.0-52.0); Hemoglobin 13.5 g/dl (14.0-18.0); Mean Corpuscular HGB Conc 33.9 g/dl (31.0-36.0); Mean Corpuscular Hemoglobin 28.7 pg (27.0-33.0); Mean Corpuscular Volume 84.7 fL (80.0-98.0); Platelet Count 469 X10*3/uL (160-400); Red Cell Distribution Width 15.1 % (11.0-16.0); White Blood Count 18.1 X10*3/uL (4.8-10.8)
[2024-11-16 07:48] VITALS: BP 129/81; PULSE 97; RESP 20; TEMP 36.4; O2SAT 93
[2024-11-16 10:02] VITALS: BP 177/84
[2024-11-16] MEDS: amLODIPine Besylate 10 MG TABLET PO (10:02)
[2024-11-16] MEDS: Apixaban 2.5 MG TABLET PO (10:02)
[2024-11-16] MEDS: 0.9 % Sodium Chloride Flush 3 ML SYRINGE IVFLUSH ×3 (10:02→22:29)
[2024-11-16] MEDS: oxyCODONE HCl Immed Release 5 MG TABLET PO ×2 (10:05→17:40)
[2024-11-16] MEDS: cefTRIAXone sodium 2 GM VIAL IVPUSH (14:31)
--- NOTE | 2024-11-16 14:50 | P.PNIM_ITS ---
Subjective Subjective Date of Service: 11/16/24 Interval History: Seen and examined this morning Follow-up for abdominal pain Patient reports improvement abdominal pain today. No nausea, no vomiting Overnight MRCP results resulted showing large fluid collection in the right upper quadrant Review of Systems Review of Systems: Yes all other systems are reviewed and are negative Constitutional Constitutional: Denies chills and Denies fever(s) ENT Ears, Nose, Mouth, and Throat: Denies dizziness Cardiovascular Cardiovascular: Denies chest pain, Denies palpitations and Denies dyspnea Respiratory Respiratory: Denies cough and Denies dyspnea Neurologic Neurologic: Denies dizziness Endocrine Endocrine: Denies palpitations Physical Exam 2 Vital Signs: Vital Signs: Last Vital Signs Temp 97.5 F 11/16/24 07:48 Pulse 97 11/16/24 07:48 Resp 20 11/16/24 07:48 BP 177/84 H 11/16/24 10:02 Pulse Ox 93 11/16/24 07:48 O2 Del Method Room Air 11/16/24 07:48 BMI result Body Mass Index 29.7 Const: General: cooperative, no acute distress, alert and awake Nutritional Appearance: average body habitus Orientation/consciousness: patient oriented x3 Resp: Effort & Inspection: normal respiratory effort, able to speak in complete sentences, no respiratory distress and no use of accessory muscles Cardio: Rate: regular rate GI: Other: right side tender to palpation Inspection: No distended Palpation (GI): Soft to palpation Neuro: Other: grossly nonfocal General: patient oriented x3 and moves all extremities Extrem: General: Yes no pedal edema Objective Data Active Medications Acetaminophen (Acetaminophen 325 Mg Tablet) 650 mg PO Q6H PRN PRN Reason: Pain, Mild 1-3,fever,headache Last Admin: 11/14/24 05:01 Dose: 650 mg Documented By: MAXI Amlodipine Besylate (Amlodipine Besylate 10 Mg Tablet) 10 mg PO DAILY [facility]; Protocol Last Admin: 11/16/24 10:02 Dose: 10 mg Documented By: BROManju Apixaban (Apixaban 2.5 Mg Tablet) 2.5 mg PO BID [facility] Last Admin: 11/16/24 10:02 Dose: 2.5 mg Documented By: BERENICE Calcium Carbonate (Calcium Carbonate 750 Mg Tab.Chew) 750 mg PO Q4H PRN PRN Reason: Heartburn Ceftriaxone Sodium (Ceftriaxone Sodium 2 Gm Vial) 2 gm IVPUSH Q24H [facility] Last Admin: 11/16/24 14:31 Dose: 2 gm Documented By: BERENICE Hydralazine HCl (Hydralazine Hcl 20 Mg/Ml Vial) 5 mg IVPUSH Q6H PRN; Protocol PRN Reason: SBP>180 Hydralazine HCl (Hydralazine Hcl 10 Mg Tablet) 10 mg PO TID [facility]; Protocol Metronidazole (Flagyl) 500 mg in 100 mls @ 100 mls/hr IV Q8H [facility] Last Admin: 11/16/24 14:31 Dose: 100 mls/hr Documented By: BERENICE Magnesium Hydroxide (Milk Of Magnesia 30 Ml Oral.Susp) 30 ml PO DAILY PRN PRN Reason: Constipation Melatonin (Melatonin 3 Mg Tablet) 6 mg PO BEDTIME PRN PRN Reason: Insomnia Last Admin: 11/15/24 20:30 Dose: 6 mg Documented By: SHAYY Morphine Sulfate (Morphine Sulfate 2 Mg/Ml Cartridge) 2 mg IVPUSH Q4H PRN; Protocol PRN Reason: Pain, Severe (Pain Scale 7-10) Last Admin: 11/16/24 11:20 Dose: 2 mg Documented By: BERENICE Ondansetron HCl (Ondansetron Hcl 4 Mg/2 Ml Vial) 4 mg IVPUSH Q8H PRN PRN Reason: Nausea and Vomiting Oxycodone HCl (Oxycodone Hcl Immed Release 5 Mg Tablet) 5 mg PO Q6H PRN PRN Reason: Pain, Moderate(Pain Scale 4-6) Last Admin: 11/16/24 10:05 Dose: 5 mg Documented By: BERENICE Sodium Chloride (0.9 % Sodium Chloride Flush 3 Ml Syringe) 3 ml IVFLUSH [facility] Last Admin: 11/16/24 10:02 Dose: 3 ml Documented By: BERENICE Zolpidem Tartrate (Zolpidem Tartrate 5 Mg Tablet) 5 mg PO BEDTIME PRN PRN Reason: Insomnia Last Admin: 11/15/24 03:05 Dose: 5 mg Documented By: N-CONNO Labs 11/16/24 06:25 11/16/24 06:25 Labs: Laboratory Results - last 24 hr 11/16/24 06:25 MCV 84.7 MCH 28.7 MCHC 33.9 RDW 15.1 Plt Count 469 H MPV 9.0 L Absolute Nucleated RBC 0.000 Nucleated RBC % (auto) 0.0 Hold Purple Top SEE NOTE Anion Gap 14 Estim Creat Clear Calc 24.1 Estimated GFR 22 Random Glucose 137 H Calcium 9.1 Total Bilirubin 1.4 H Direct Bilirubin 1.0 H AST 53 H ALT 29 Alkaline Phosphatase 894 H Total Protein 6.9 Albumin 2.5 L Microbiology Microbiology Results: Microbiology 11/13/24 15:30 Gram Stain - Final Paracentesis Fluid Anaerobic Culture - Preliminary No growth to date. Body Fluid Culture - Final No growth after 2 days Assessment and Plan (1) KELSEY (acute kidney injury): Status: Acute (2) Colitis: Status: Acute Plan This is a 74-year-old male with history of AFib on Eliquis, CKD 4, CHF, diabetes, anemia of chronic disease, hyperparathyroidism was admitted in October found to have acute cholecystitis status post cholecystectomy on October 22 who returned to the emergency department on November 12 and admitted with abdominal pain secondary to colitis abdominal pain. still requiring frequent doses of iv narcotics for adequate pain control initially thought to be due to colitis. MRCP now showing Large fluid collection in the right upper quadrant; possible abscess vs hematoma previous imaging showed ascites paracentesis to eval for SBP - with elevated WBCs but neutrophils not proportionally high- possible translocation from colitis/infection did have recent cholecystectomy 10/22 Phlegmonous thick walled necrotic gallbladder with dense omental adhesions has not had significant drop in H/H, had paracentesis 11/13 with no growth from fluid, fluid was not described as bilious continue IV ceftriaxone, Flagyl fluid culture with no growth to date, cytology pending Hold Eliquis, plan for IR guided drainage of fluid collection Acute Colitis Infectious versus inflammatory no further diarrhea, stool studies cancelled Initially treated with IV Zosyn, we will change to IV ceftriaxone/Flagyl due to elevated LFTs tolerating diet GI following blood cultures negative Transaminitis/Liver cirrhosis Alk phos persistently elevated GI consultation - paracentesis as above will change abx in the event zosyn is contributing to elevated numbers AST/ALT have normalized but bili/alk-phos still elevated follow LFTs Right pleural effusion denies respiratory symptoms no hypoxia KELSEY on [id number] Likely secondary to GI losses and dehydration Creatinine has plateaued hold lisinopril Nephrology following Avoid nephrotoxins follow BMP Hypertension Elevated blood pressure hold lisinopril due to KELSEY, continue amlodipine start po hydralazine, up titrate prn Hydralazine IV for systolic blood pressure greater than 180 Hyperlipidemia Hold statin for now due to elevated LFTs DVT prophylaxis with Eliquis Full code Requires ongoing inpatient stay for management of right upper quadrant complex fluid collection of unclear etiology, plan for further workup including IR drainage, IV antibiotics and pain management Quality Stroke Does the patient have a stroke diagnosis?: No VTE Prior VTE?: No VTE Risk Level:: Medical - moderate - high VTE Device Contraindication: Treatment Not Indicated VTE Drug Contraindication: N/A - Med Ordered
[2024-11-16 15:16] VITALS: BP 156/81; PULSE 84; RESP 18; TEMP 36.5; O2SAT 92
[2024-11-16] MEDS: hydrALAZINE HCl 10 MG TABLET PO ×2 (15:34→20:46)
--- NOTE | 2024-11-16 15:40 | P.CONGS_ITS ---
History of Present Illness Consult details Consult date: 11/16/24 Requesting physician: Gladys Villavicencio Narrative: The pt is a 74 year old male with underwent lap esau for gangrenous GB on 10/22 and was discharged. He came back into the ER on 11/12 complaining of lower abdominal pain and jenkins revealed findings consistent with colitis and was admitted under the medical service and treated with iv antibiotics. jenkins with a CT scan which showed fluid surrounding the liver considered ascites. the pt underwent ascites tap for cloudy yellow fluid 250 cc on 11/14- analysis pending. GI has seen pt and lfts are a little elevated but phos has remained very elevated in the 800 range. MRCP does not show any choledocholithiasis but does show a large complex fluid collection around the liver. Pt with elevated wbc and tender in the area. Need to rule out abscess or hematoma collection - h and h with some drop from around 44 postop to 39 now. [facility] Past Medical History Medical History Obesity (BMI 30.0-34.9) Cardiomyopathy CKD (chronic kidney disease) Stroke Chronic atrial fibrillation CHF (congestive heart failure) CKD (chronic kidney disease) Former smoker Depression Diabetes High cholesterol Hypertension Family History Family History Father No problems noted. Mother Diabetes Hypertension Cancer Son No problems noted. Son No problems noted. Son No problems noted. Daughter No problems noted. Daughter No problems noted. Surgical History Surgical History History of aneurysm History of shoulder surgery Social History Social History Household Members: None Household Members Other:: Housing: Apartment Do you presently have visiting nurse or other home services: No Alcohol intake: never Patient Tobacco Use Status: Never used Tobacco Smoked in Last 30 Days: No Use of substances other than those prescribed or required for medical reasons: No Currently Displaying Signs/Symptoms of Drug Intoxication Withdrawal: No Have you been hit, kicked, punched, or otherwise hurt by someone within the past year? If so, by whom?: No Do you feel safe in your current relationship?: Yes Is there a partner from a previous relationship who is making you feel unsafe now?: No Are you made to feel afraid or neglected: No Advance Directives: No Advance Directives Information Provided: Yes Do you have a plan to hurt others: No Plan Recently lost weight without trying: No Nutrition Risks: No Nutritional Risk Poor oral hygiene: No service: No Current occupational status: disabled Meds Allergies Allergy/AdvReac Type Severity Reaction Status Date / Time No Known Allergies Allergy Verified 11/12/24 11:36 [No Known Allergies*] Active Medications: Current Medications Acetaminophen (Acetaminophen 325 Mg Tablet) 650 mg PO Q6H PRN PRN Reason: Pain, Mild 1-3,fever,headache Last Admin: 11/14/24 05:01 Dose: 650 mg Amlodipine Besylate (Amlodipine Besylate 10 Mg Tablet) 10 mg PO DAILY [facility]; Protocol Last Admin: 11/16/24 10:02 Dose: 10 mg Apixaban (Apixaban 2.5 Mg Tablet) 2.5 mg PO BID SHAUNNA Last Admin: 11/16/24 10:02 Dose: 2.5 mg Calcium Carbonate (Calcium Carbonate 750 Mg Tab.Chew) 750 mg PO Q4H PRN PRN Reason: Heartburn Ceftriaxone Sodium (Ceftriaxone Sodium 2 Gm Vial) 2 gm IVPUSH Q24H SHAUNNA Last Admin: 11/16/24 14:31 Dose: 2 gm Hydralazine HCl (Hydralazine Hcl 20 Mg/Ml Vial) 5 mg IVPUSH Q6H PRN; Protocol PRN Reason: SBP>180 Hydralazine HCl (Hydralazine Hcl 10 Mg Tablet) 10 mg PO TID SHAUNNA; Protocol Last Admin: 11/16/24 15:34 Dose: 10 mg Metronidazole (Flagyl) 500 mg in 100 mls @ 100 mls/hr IV Q8H SHAUNNA Last Admin: 11/16/24 14:31 Dose: 100 mls/hr Magnesium Hydroxide (Milk Of Magnesia 30 Ml Oral.Susp) 30 ml PO DAILY PRN PRN Reason: Constipation Melatonin (Melatonin 3 Mg Tablet) 6 mg PO BEDTIME PRN PRN Reason: Insomnia Last Admin: 11/15/24 20:30 Dose: 6 mg Morphine Sulfate (Morphine Sulfate 2 Mg/Ml Cartridge) 2 mg IVPUSH Q4H PRN; Protocol PRN Reason: Pain, Severe (Pain Scale 7-10) Last Admin: 11/16/24 11:20 Dose: 2 mg Ondansetron HCl (Ondansetron Hcl 4 Mg/2 Ml Vial) 4 mg IVPUSH Q8H PRN PRN Reason: Nausea and Vomiting Oxycodone HCl (Oxycodone Hcl Immed Release 5 Mg Tablet) 5 mg PO Q6H PRN PRN Reason: Pain, Moderate(Pain Scale 4-6) Last Admin: 11/16/24 10:05 Dose: 5 mg Sodium Chloride (0.9 % Sodium Chloride Flush 3 Ml Syringe) 3 ml IVFLUSH QSHIFT [facility] Last Admin: 11/16/24 15:34 Dose: 3 ml Zolpidem Tartrate (Zolpidem Tartrate 5 Mg Tablet) 5 mg PO BEDTIME PRN PRN Reason: Insomnia Last Admin: 11/15/24 03:05 Dose: 5 mg Home Medications ?Medication ?Instructions ?Recorded ?Confirmed ?Last Taken ?Type blood-glucose meter #1 ea 05/14/20 01/14/24 Unknown History lancets #100 ea 05/14/20 01/14/24 Unknown History atorvastatin 40 mg tablet 40 mg PO DAILY 12/19/22 11/12/24 11/11/24 History apixaban 2.5 mg tablet (Eliquis) 2.5 mg PO BID 10/20/24 11/12/24 11/11/24 History lisinopril 40 mg tablet 40 mg PO DAILY 10/20/24 11/12/24 11/11/24 History amlodipine 10 mg tablet 10 mg PO QAM 11/12/24 11/12/24 Unknown History Physical Exam 2 Vital Signs: Vital Signs: Last Vital Signs Temp 97.7 F 11/16/24 15:16 Pulse 84 11/16/24 15:16 Resp 18 11/16/24 15:16 BP 156/81 H 11/16/24 15:16 Pulse Ox 92 11/16/24 15:16 O2 Del Method Room Air 11/16/24 15:16 BMI result Body Mass Index 29.7 Const: General: cooperative and comfortable GI: Other: abdomen round mild distension tender at ruq with some guarding no peritonitis incisions look good Skin: Other: nonicteric Results Labs 11/16/24 06:25 11/16/24 06:25 Labs: Abnormal lab results 04/06/25 Range/Units 06:25 WBC 18.1 H (4.8-10.8) X10*3/uL Hgb 13.5 L (14.0-18.0) g/dl Hct 39.8 L (42.0-52.0) % Plt Count 469 H (160-400) X10*3/uL MPV 9.0 L (9.4-12.4) fL BUN 93 H (9-16) mg/dL Creatinine 2.89 H (0.5-1.4) mg/dL Random Glucose 137 H (60-115) mg/dL Total Bilirubin 1.4 H (0.0-1.0) mg/dL Direct Bilirubin 1.0 H (0.0-0.5) mg/dL AST 53 H (5-37) U/L Alkaline Phosphatase 894 H (39-117) U/L Albumin 2.5 L (3.5-5.0) g/dL Short CBC 11/16/24 Range/Units 06:25 WBC 18.1 H (4.8-10.8) X10*3/uL Hgb 13.5 L (14.0-18.0) g/dl Hct 39.8 L (42.0-52.0) % Plt Count 469 H (160-400) X10*3/uL BMP 11/16/24 06:25 Sodium 136 Potassium 4.2 Chloride 104 Carbon Dioxide 22 BUN 93 H Creatinine 2.89 H Calcium 9.1 Liver Function 11/16/24 Range/Units 06:25 Total Bilirubin 1.4 H (0.0-1.0) mg/dL Direct Bilirubin 1.0 H (0.0-0.5) mg/dL AST 53 H (5-37) U/L ALT 29 (0-40) U/L Alkaline Phosphatase 894 H (39-117) U/L Albumin 2.5 L (3.5-5.0) g/dL All other labs normal. Imaging Additional studies: [facility] ? Diagnostics Subcategory All Activity ??:?? All Time ??:?? All Subcategories Filter Laboratory Imaging Microbiology Pathology Blood Bank Tests Cardiovascular Other Specialty DATE TYPE STATUS REF RANGE/AUTHOR Hx 11/15/24 20:36 Cholangiopancreatography MRI Signed Karthikeyan Zazueta 11/13/24 15:00 Paracentesis Ultrasound Signed Jack Shah 11/13/24 14:56 Abdomen Ultrasound Signed Jack Shah 11/12/24 11:24 Abdomen/Pelvis CT Signed Jack Shah 10/26/24 06:25 Abdomen/Pelvis CT Signed Dorita Taylor 10/26/24 02:47 KUB X-Ray Signed Girma Shah 10/21/24 11:15 Orbit X-Ray Signed Cedric Han 10/20/24 20:05 Abdomen Ultrasound Signed Greta Hand 10/20/24 18:23 Abdomen/Pelvis CT Signed Greta Hand 07/31/24 10:58 Renal Scan w/Medication NM Signed Janice Pate 03/22/24 13:34 Knee X-Ray Signed Ernie Ivey 02/06/24 12:51 Knee X-Ray Signed ManicksullySangita 02/06/24 12:51 Knee X-Ray Signed ManicksullySangita 12/31/23 09:53 Wrist X-Ray Signed Toney Weaver 12/31/23 09:53 Elbow X-Ray Signed Toney Weaver 12/27/23 14:00 Knee X-Ray Signed LuisSamemechelle 11/08/23 14:15 Renal Ultrasound Signed EmelyCedric 11/08/23 00:00 Diagnostic Report, External Nephrology Edi Guerin US RENAL BI Edi Guerin 12/19/22 12:55 Chest X-Ray Signed Bebe Chen 04/11/22 12:55 Elbow X-Ray Signed Toney Weaver 03/26/22 13:[address] Signed Bebe Chen 03/26/22 09:55 Chest X-Ray Signed Erin Moya 09/21/21 12:56 Shoulder X-Ray Signed Ta Moss 09/21/21 12:56 Finger X-Ray Signed Ta Moss 09/21/21 12:56 Cervical Spine X-Ray Signed Ta Moss 09/21/21 12:55 Wrist X-Ray Signed Ta Moss 07/27/21 10:03 Chest X-Ray Signed NitaPrasanta 04/01/21 15:29 Chest X-Ray Signed Kendall Herrera 03/10/21 12:10 Venous Duplex Signed Herbert Vizcaino 03/10/21 12:10 Knee X-Ray Signed Coty Hannal He/Him/His Ethan Cristina Acute 74, M?1950 MRN#? [id number] ADM IN,?HO.S3??375?-1? 5ft 7in 189lb 6.033oz BSA: 2.02m? BMI: 29.7kg/m? Acc#? [id number] Full Code Historical Visits Allergies No Known Allergies (No Known Allergies*) Problems ? ONSET Abdominal fluid collection KELSEY (acute kidney injury) Colitis Calculous cholecystitis Secondary hyperparathyroidism (of renal origin) Hydronephrosis Osteoarthritis of left knee Preop cardiovascular exam Iron deficiency Anemia in chronic kidney disease (CKD) CKD (chronic kidney disease) stage 4, GFR 15-29 ml/min Hospital discharge follow-up Chronic atrial fibrillation Former smoker Depression High cholesterol Vital Signs Today 19:13 BP 164/74?H Pulse 99? Resp 18? Temp 98.1 F? O2 Sat 92? Delivery Room Air? Home Meds Not Confirmed Prescription Monitoring Program MEDICATIONS (INSTRUCTIONS) LAST TAKEN Active amlodipine 10 mgPOQAM Unknown atorvastatin 40 mgPODAILY 11/11/24 calcitriol 0.25 mcg capsule 0.25 fghBTC9E#14 caps ~ 11/11/24 Eliquis 2.5 mgPOBID 11/11/24 ferrous sulfate 325 mg (65 mg iron) tablet 325 mgPOBID#60 tabs 11/11/24 lisinopril 40 mgPODAILY 11/11/24 polyethylene glycol 3350 [Miralax] 17 gPODAILY#510 grams 11/11/24 DME/Medical Supplies ??blood sugar diagnostic ??blood-glucose meter ??lancets My Widget No Data to Display Diagnostics Reports Ethan Cristina??He/Him/His??74??M??1950 ? Allergy/Adv: No Known Allergies (More??) Close Cholangiopancreatography MRI (Signed) Karthikeyan Zazueta - 11/15/24 Paracentesis Ultrasound (Signed) Jack Shah - 11/13/24 Abdomen Ultrasound (Signed) Jack Shah - 11/13/24 Abdomen/Pelvis CT (Signed) Jack Shah - 11/12/24 Abdomen/Pelvis CT (Signed) Dorita Taylor - 10/26/24 KUB X-Ray (Signed) ShahGirma - 10/26/24 Orbit X-Ray (Signed) Cedric Han - 10/21/24 Abdomen Ultrasound (Signed) Greta Hand - 10/20/24 Abdomen/Pelvis CT (Signed) Greta Hand - 10/20/24 Renal Scan w/Medication NM (Signed) RioIndukala - 07/31/24 Knee X-Ray (Signed) Ernie Ivey - 03/22/24 Knee X-Ray (Signed) Manickas,Sangita - 02/06/24 Knee X-Ray (Signed) Manickas,Sangita - 02/06/24 Wrist X-Ray (Signed) Toney Weaver - 12/31/23 Elbow X-Ray (Signed) Toney Weaver - 12/31/23 Knee X-Ray (Signed) LuisSamer - 12/27/23 Renal Ultrasound (Signed) Cedric Han - 11/08/23 Diagnostic Report, External Nephrology Edi Guerin - 11/08/23 Chest X-Ray (Signed) Bebe Chen - 12/19/22 Elbow X-Ray (Signed) Toney Weaver - 04/11/[address] (Signed) Bebe Chen - 03/26/22 Chest X-Ray (Signed) Erin Moya - 03/26/22 Shoulder X-Ray (Signed) Ta Moss - 09/21/21 Finger X-Ray (Signed) Ta Moss - 09/21/21 Cervical Spine X-Ray (Signed) Ta Moss - 09/21/21 Wrist X-Ray (Signed) Ta Moss - 09/21/21 Chest X-Ray (Signed) Erin Moya - 07/27/21 Chest X-Ray (Signed) Kendall Herrera - 04/01/21 Venous Duplex (Signed) Herbert Vizcaino - 03/10/21 Knee X-Ray (Signed) Cedric Han - 03/10/21 Launch?Image [place] [address] CT Scan Report Signed Patient: Ethan Cristina MR#: [id number] : 1950 Acct:[id number] Age/Sex: 74 / M ADM Date: 11/12/24 Loc: HO.ED Attending Dr: Ordering Physician: Ankit Hardin MD Date of Service: 11/12/24 Procedure(s): CT abdomen pelvis wo IV con Accession Number(s): [id number] cc: Ankit Hardin MD; Blanca Crowley MD~ Report Number: [id number]: Total DLP = 932.00 mGy-cm EXAMINATION: CT ABDOMEN AND PELVIS WITHOUT CONTRAST CLINICAL INFORMATION: Right lower quadrant abdominal pain. CKD. COMPARISON: 10/26/2024. 10/20/2024. TECHNIQUE: Multidetector volumetric imaging was performed from the superior aspect of the liver through the pubic symphysis. Sagittal and coronal reformatted images were obtained on the technologist's workstation. This CT examination was performed using dose optimization techniques as appropriate, variously including the following: *Automated exposure control *Adjustment of mA and/or kV according to patient size (this includes techniques or standardized protocols for targeted exams where dose is matched to indication/reason for exam; i.e. extremities or head) *Use of iterative reconstruction technique FINDINGS: LUNG BASES: Motion degraded. There is mild subsegmental atelectasis dependently in both lung bases. There is mild mosaic attenuation present. There are no effusions. There is mild cardiac enlargement. Somewhat patulous appearing esophagus. There is a small type I hiatus hernia. LIVER, GALLBLADDER, AND BILIARY TREE: The unenhanced liver has a cirrhotic morphology. There is no focal lesion. There is a small to moderate amount of perihepatic ascites. There has been a cholecystectomy. There is no intra or extrahepatic biliary dilatation. PANCREAS: Mild atrophy. No lesion. SPLEEN: Normal in the appearance. Trace perisplenic ascites. ADRENAL GLANDS: Bilateral hyperplasia.. KIDNEYS AND URETERS: The kidneys are normal in size, shape, and attenuation. No hydronephrosis, hydroureter, or calculi seen. No perinephric stranding. PERITONEUM: There are small to moderate volume intraperitoneal ascites. There is no free intraperitoneal air. BLADDER: Normal in appearance. GASTROINTESTINAL TRACT: There is short segment thickening and inflammation of the ascending colon and cecum. The remainder of the colon is unremarkable in appearance with mild gaseous distention. Mild wall thickening of the sigmoid and rectum noted. The more proximal small bowel is normal in caliber and course. There are no CT features of acute appendicitis. Appendix itself is poorly seen. ABDOMINAL WALL: No significant hernia is appreciated. LYMPH NODES: None enlarged by size criteria. VASCULAR: Moderate atheromatous calcification of the arterial structures. No aneurysm. 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 There are small splenic and small gastric varices. PELVIC VISCERA: Moderate prostate enlargement, with diameter estimated at 4.6 cm. There are eccentric central calcifications. OSSEOUS STRUCTURES: There is no suspicious lytic or blastic bone lesion. There are degenerative changes throughout the spine and involving both hip joints. CT/CT abdomen pelvis wo IV con IMPRESSION: 1. Wall thickening and inflammation of a the cecum and ascending colon. Findings are suggestive of infectious/inflammatory segmental colitis. There is also mild wall thickening of the descending colon, sigmoid colon and rectum, uncertain significance. Major differential would include colonic wall thickening related to portal hypertension. 2. Small to moderate volume intraperitoneal ascites. This is most notable abutting the liver. 3. Cirrhotic morphology of the liver. No suspicious liver lesion on this unenhanced exam. 4. Cholecystectomy. 5. Additional Ancillary findings as discussed. Electronically signed by: Jack Shah MD 11/12/2024 01:39 PM EDT Dictated By: Jack Shah MD Signed By: <Electronically signed by Jack Shah MD in OV> 11/12/24 1339 DD/ 1124 TD/TT: 11/12/24 1316 Director Of Pulmonary Unit: [employer] ? Diagnostics Subcategory All Activity ??:?? All Time ??:?? All Subcategories Filter Laboratory Imaging Microbiology Pathology Blood Bank Tests Cardiovascular Other Specialty DATE TYPE STATUS REF RANGE/AUTHOR Hx 11/15/24 20:36 Cholangiopancreatography MRI Signed Karthikeyan Zazueta 11/13/24 15:00 Paracentesis Ultrasound Signed Jack Shah 11/13/24 14:56 Abdomen Ultrasound Signed Jack Shah 11/12/24 11:24 Abdomen/Pelvis CT Signed Jack Shah 10/26/24 06:25 Abdomen/Pelvis CT Signed Dorita Taylor 10/26/24 02:47 KUB X-Ray Signed Girma Shah 10/21/24 11:15 Orbit X-Ray Signed Emely,Cedric 10/20/24 20:05 Abdomen Ultrasound Signed Greta Hand 10/20/24 18:23 Abdomen/Pelvis CT Signed Greta Hand 07/31/24 10:58 Renal Scan w/Medication NM Signed Janice Pate 03/22/24 13:34 Knee X-Ray Signed Ernie Ivey 02/06/24 12:51 Knee X-Ray Signed Manickas,Sangita 02/06/24 12:51 Knee X-Ray Signed Man[place]as,Sangita 12/31/23 09:53 Wrist X-Ray Signed Toney Weaver 12/31/23 09:53 Elbow X-Ray Signed Toney Weaver 12/27/23 14:00 Knee X-Ray Signed LuisSamemechelle 11/08/23 14:15 Renal Ultrasound Signed EmelyCedric 11/08/23 00:00 Diagnostic Report, External Nephrology Edi Guerin US RENAL BI Edi Guerin 12/19/22 12:55 Chest X-Ray Signed Bebe Chen 04/11/22 12:55 Elbow X-Ray Signed Toney Weaver 03/26/22 13:[address] Signed Bebe Chen 03/26/22 09:55 Chest X-Ray Signed Erin Moya 09/21/21 12:56 Shoulder X-Ray Signed Ta Moss 09/21/21 12:56 Finger X-Ray Signed Ta Moss 09/21/21 12:56 Cervical Spine X-Ray Signed Ta Moss 09/21/21 12:55 Wrist X-Ray Signed Ta Moss 07/27/21 10:03 Chest X-Ray Signed Erin Moya 04/01/21 15:29 Chest X-Ray Signed Kendall Herrera 03/10/21 12:10 Venous Duplex Signed Herbert Vizcaino 03/10/21 12:10 Knee X-Ray Signed Cedric Han 01/28/21 07:57 Aorta Ultrasound Signed EmelyCedric He/Him/His Cristina,Ethan Michaels 74, M?1950 MRN#? [id number] ADM IN,?HO.S3??375?-1? 5ft 7in 189lb 6.033oz BSA: 2.02m? BMI: 29.7kg/m? Acc#? [id number] Full Code Historical Visits Allergies No Known Allergies (No Known Allergies*) Problems ? ONSET Abdominal fluid collection KELSEY (acute kidney injury) Colitis Calculous cholecystitis Secondary hyperparathyroidism (of renal origin) Hydronephrosis Osteoarthritis of left knee Preop cardiovascular exam Iron deficiency Anemia in chronic kidney disease (CKD) CKD (chronic kidney disease) stage 4, GFR 15-29 ml/min Hospital discharge follow-up Chronic atrial fibrillation Former smoker Depression High cholesterol Vital Signs Today 19:13 BP 164/74?H Pulse 99? Resp 18? Temp 98.1 F? O2 Sat 92? Delivery Room Air? Home Meds Not Confirmed Prescription Monitoring Program MEDICATIONS (INSTRUCTIONS) LAST TAKEN Active amlodipine 10 mgPOQAM Unknown atorvastatin 40 mgPODAILY 11/11/24 calcitriol 0.25 mcg capsule 0.25 rwbYOV2L#14 caps ~ 11/11/24 Eliquis 2.5 mgPOBID 11/11/24 ferrous sulfate 325 mg (65 mg iron) tablet 325 mgPOBID#60 tabs 11/11/24 lisinopril 40 mgPODAILY 11/11/24 polyethylene glycol 3350 [Miralax] 17 gPODAILY#510 grams 11/11/24 DME/Medical Supplies ??blood sugar diagnostic ??blood-glucose meter ??lancets My Widget No Data to Display Diagnostics Reports Ethan Cristina??He/Him/His??74??M??1950 ? Allergy/Adv: No Known Allergies (More??) Close Cholangiopancreatography MRI (Signed) Karthikeyan Zazueta - 11/15/24 Paracentesis Ultrasound (Signed) Jack Shah - 11/13/24 Abdomen Ultrasound (Signed) Jack Shah - 11/13/24 Abdomen/Pelvis CT (Signed) Jack Shah - 11/12/24 Abdomen/Pelvis CT (Signed) Dorita Taylor - 10/26/24 KUB X-Ray (Signed) Girma Shah - 10/26/24 Orbit X-Ray (Signed) Cedric Han - 10/21/24 Abdomen Ultrasound (Signed) Greta Hand - 10/20/24 Abdomen/Pelvis CT (Signed) MaikeldebbieGreta - 10/20/24 Renal Scan w/Medication NM (Signed) Janice Pate - 07/31/24 Knee X-Ray (Signed) Ernie Ivey - 03/22/24 Knee X-Ray (Signed) Sangita Alberts - 02/06/24 Knee X-Ray (Signed) Manicksully,Sangita - 02/06/24 Wrist X-Ray (Signed) Toney Weaver - 12/31/23 Elbow X-Ray (Signed) Toney Weaver - 12/31/23 Knee X-Ray (Signed) LuisSamemechelle - 12/27/23 Renal Ultrasound (Signed) Emely,Cedric - 11/08/23 Diagnostic Report, External Nephrology Edi Guerin - 11/08/23 Chest X-Ray (Signed) Bebe Chen - 12/19/22 Elbow X-Ray (Signed) Toney Weaver - 04/11/[address] (Signed) Bebe Chen - 03/26/22 Chest X-Ray (Signed) Erin Moya - 03/26/22 Shoulder X-Ray (Signed) Ta Moss - 09/21/21 Finger X-Ray (Signed) Ta Moss - 09/21/21 Cervical Spine X-Ray (Signed) Ta Moss - 09/21/21 Wrist X-Ray (Signed) Ta Moss - 09/21/21 Chest X-Ray (Signed) Erin Moya - 07/27/21 Chest X-Ray (Signed) Kendall Herrera - 04/01/21 Venous Duplex (Signed) Herbret Vizcaino - 03/10/21 Knee X-Ray (Signed) Emely,Cedric - 03/10/21 Aorta Ultrasound (Signed) Emely,Cedric - 01/28/21 Launch?Image [address] [address] Magnetic Resonance Report Signed with Katie Patient: Ethan Cristina MR#: [id number] : 1950 Acct:[id number] Age/Sex: 74 / M ADM Date: 11/12/24 Loc: .S3 375-[address]: Gladys CALI Ordering Physician: Gladys Villavicencio Date of Service: 11/15/24 Procedure(s): MR MRCP Accession Number(s): [id number] cc: Gladys Villavicencio; Blanca Crowley MD~ ADDENDUMThis document has been electronically signed by: Karthikeyan Zazueta MD on 11/15/2024 20:36:30 ADDENDUM: This report was discussed with Dr Mclean on Nov 15, 2024 20:44:00 EDT. This document has been electronically signed by: Nancy Monterroso on 11/15/2024 20:48:04 Addendum Dictated By: Karthikeyan Zazueta MD Addendum Signed By: <Electronically signed by Karthikeyan Zazueta MD in OV> 11/15/242048 Addendum Cosigned By: DD/ /05/2036 TD/TT: 11/15/2401/05/2048 CLINICAL HISTORY: recent CCY, abdominal pain, elevated LFTs Pt difficulty with bh. Breathing artifact throughout. Rpt images attempted. MRCP without intravenous contrast Comparison: CT of the abdomen from 10/26/2024. No interim imaging available at this time. Findings: Multiple sequences demonstrate artifacts including respiratory motion artifacts. Large fluid collection of the lateral and superior margin of the liver measures 16.5 x 9.6 x 22 cm. Differential considerations include intracapsular blood products, seroma, and purulent fluid such as liver abscess in this noncontrast study. No diffusion imaging available for additional differentiation. Hematoma of the considered most likely with additional fluid and blood products extending inferiorly with extracapsular extension concerning for extracapsular blood products and/or rupture (coronal image 15 of series 5). Abscess extension also considered. Imaged CBD is nondilated measuring 6 mm diameter. Minimal-borderline dilatation of the partially imaged pancreatic duct with small side branch IPMNs in this noncontrast study. No definite choledocholithiasis. Gallbladder is surgically absent. Mass-effect compresses of the liver and deviates the liver to the left with small cystic change of the liver including 5 mm in the left lobe. Small cystic lesions of the kidneys also noted. No further characterize without contrast. No hydronephrosis. The adrenal glands are within normal limits. Moderate to severe volume loss of the pancreas with borderline ductal dilatation. The spleen is nonenlarged. No small bowel obstruction in the [id number]. Additional free fluid is partially imaged in the abdomen. Subcutaneous edema is also noted. Large right pleural effusion small left pleural effusion with underlying atelectasis/consolidation. Moderate cardiomegaly partially imaged with multi chamber enlargement of the heart. Mixed signal supports calcified and noncalcified plaque of the imaged aorta and its branches. Degenerative changes involve the imaged spine. IMPRESSION: 1. Large fluid collection in the right upper quadrant includes intracapsular fluid of the mass-effect against of the liver. Differential considerations include perihepatic abscess and large hematoma. 2. Extracapsular accentuated of the and/or rupture is demonstrated inferiorly in this MRI with motion artifacts. 3. Large right pleural effusion with bibasilar atelectasis/consolidation of the imaged lung bases. 4. No choledocholithiasis by MRCP. 5. Post cholecystectomy. This document has been electronically signed by: Karthikeyan Zazueta MD on 11/15/2024 20:36:30 Dictated By: Karthikeyan Zazueta MD Signed By: <Electronically signed by Karthikeyan Zazueta MD in OV> 11/15/242036 DD/ 35 TD/TT: 11/15/242035 Director Of Pulmonary Unit: Assessment and Plan (1) Abdominal fluid collection: Status: Acute Plan 74 year old male about 3 weeks s/p difficult cholecystectomy with fluid collection around the liver and elvated alk phos - ? etiology could be some bleedin as h and h with small drop. consider IVR drainage of collection to rule out abscess and get cultures - pt had eliquis so will discuss with team when to do procedure. pt stable now. also with cirrhosis so check baseline coags. will follow along. Procedures Date of Service Date of Service: 11/16/24
[2024-11-16 19:13] VITALS: BP 164/74; PULSE 99; RESP 18; TEMP 36.7; O2SAT 92
[2024-11-16] MEDS: Zolpidem Tartrate 5 MG TABLET PO (22:27)
[2024-11-17] VITALS (9 sets, daily range): BP systolic 119–150; BP diastolic 62–79; PULSE 84–96; RESP 17–27; TEMP 36.1–36.5; O2SAT 92–97
[2024-11-17] MEDS: Morphine Sulfate 2 MG/ML CARTRIDGE IVPUSH ×4 (02:18→22:51)
[2024-11-17] MEDS: metroNIDAZOLE/NS 500 MG/100 ML PIGGYBACK 100 MG IV ×3 (05:09→22:07)
[2024-11-17 06:12] LABS: Hematocrit 39.9 % (42.0-52.0); Hemoglobin 13.3 g/dl (14.0-18.0); Mean Corpuscular HGB Conc 33.3 g/dl (31.0-36.0); Mean Corpuscular Hemoglobin 28.4 pg (27.0-33.0); Mean Corpuscular Volume 85.1 fL (80.0-98.0); Mean Platelet Volume 9.1 fL (9.4-12.4); Platelet Count 426 X10*3/uL (160-400); Red Blood Count 4.69 X10*6/uL (4.60-5.80); Red Cell Distribution Width 15.1 % (11.0-16.0); White Blood Count 16.4 X10*3/uL (4.8-10.8)
[2024-11-17 06:18] LABS: INTERNATIONAL NORM RATIO 1.7 (0.9-1.1); Prothrombin Time 19.4 SEC (10.9-12.4)
[2024-11-17 06:32] LABS: Alanine Aminotransferase 28 U/L (0-40); Albumin Level 2.5 g/dL (3.5-5.0); Alkaline Phosphatase 902 U/L (39-117); Anion Gap 16 (12-20); Aspartate Amino Transferase 48 U/L (5-37); Bilirubin Direct 0.9 mg/dL (0.0-0.5); Bilirubin Total 1.2 mg/dL (0.0-1.0); Blood Urea Nitrogen 90 mg/dL (9-16); Calcium 8.9 mg/dL (8.4-10.2); Carbon Dioxide 21 mmol/L (22-29); Chloride 103 mmol/L (96-108); Creatinine Clr Calc Pharmacy 23.6; Estimated Glomerular Filt Rate 21; Glucose Random 122 mg/dL (60-115); Potassium 3.9 mmol/L (3.3-5.1); Sodium 136 mmol/L (135-145); Total Protein 6.8 g/dL (6.5-8.0)
[2024-11-17] MEDS: hydrALAZINE HCl 10 MG TABLET PO ×3 (07:39→21:04)
[2024-11-17] MEDS: amLODIPine Besylate 10 MG TABLET PO (07:39)
[2024-11-17] MEDS: 0.9 % Sodium Chloride Flush 3 ML SYRINGE IVFLUSH ×3 (07:41→22:11)
--- NOTE | 2024-11-17 08:13 | PM.PNGS ---
Subjective Subjective Date of Service: 11/17/24 Interval history: Reports he never felt bck to baseline following cholecystectomy. Had significant pain, poor oral intake. [place] improved following paracentesis but pain has worsened again. Awaiting IR drainage this am. Physical Exam Vital Signs: Vital Signs: Last Vital Signs Temp 97.7 F 11/17/24 06:58 Pulse 88 11/17/24 06:58 Resp 18 11/17/24 06:58 BP 149/76 H 11/17/24 06:58 Pulse Ox 94 11/17/24 06:58 O2 Del Method Room Air 11/17/24 06:58 BMI result Body Mass Index 29.7 Const: General: alert; No ill appearing Orientation/consciousness: patient oriented x3 Resp: Effort & Inspection: normal respiratory effort and able to speak in complete sentences GI: Other: tender on right abd, RUQ Palpation (GI): Soft to palpation and no guarding Skin: General skin exam: no rashes or lesions noted Neuro: General: patient oriented x3 and moves all extremities Objective Data Active Medications Acetaminophen (Acetaminophen 325 Mg Tablet) 650 mg PO Q6H PRN PRN Reason: Pain, Mild 1-3,fever,headache Last Admin: 11/14/24 05:01 Dose: 650 mg Documented By: MAXI Amlodipine Besylate (Amlodipine Besylate 10 Mg Tablet) 10 mg PO DAILY [facility]; Protocol Last Admin: 11/17/24 07:39 Dose: 10 mg Documented By: HOMER Apixaban (Apixaban 2.5 Mg Tablet) 2.5 mg PO BID [facility] Last Admin: 11/16/24 10:02 Dose: 2.5 mg Documented By: BERENICE Calcium Carbonate (Calcium Carbonate 750 Mg Tab.Chew) 750 mg PO Q4H PRN PRN Reason: Heartburn Ceftriaxone Sodium (Ceftriaxone Sodium 2 Gm Vial) 2 gm IVPUSH Q24H [facility] Last Admin: 11/16/24 14:31 Dose: 2 gm Documented By: BERENICE Hydralazine HCl (Hydralazine Hcl 20 Mg/Ml Vial) 5 mg IVPUSH Q6H PRN; Protocol PRN Reason: SBP>180 Hydralazine HCl (Hydralazine Hcl 10 Mg Tablet) 10 mg PO TID [facility]; Protocol Last Admin: 11/17/24 07:39 Dose: 10 mg Documented By: HOMER Metronidazole (Flagyl) 500 mg in 100 mls @ 100 mls/hr IV Q8H [facility] Last Infusion: 11/17/24 06:20 Dose: Infused Documented By: KATY Magnesium Hydroxide (Milk Of Magnesia 30 Ml Oral.Susp) 30 ml PO DAILY PRN PRN Reason: Constipation Melatonin (Melatonin 3 Mg Tablet) 6 mg PO BEDTIME PRN PRN Reason: Insomnia Last Admin: 11/15/24 20:30 Dose: 6 mg Documented By: SHAYY Morphine Sulfate (Morphine Sulfate 2 Mg/Ml Cartridge) 2 mg IVPUSH Q4H PRN; Protocol PRN Reason: Pain, Severe (Pain Scale 7-10) Last Admin: 11/17/24 02:18 Dose: 2 mg Documented By: KATY Ondansetron HCl (Ondansetron Hcl 4 Mg/2 Ml Vial) 4 mg IVPUSH Q8H PRN PRN Reason: Nausea and Vomiting Oxycodone HCl (Oxycodone Hcl Immed Release 5 Mg Tablet) 5 mg PO Q6H PRN PRN Reason: Pain, Moderate(Pain Scale 4-6) Last Admin: 11/16/24 17:40 Dose: 5 mg Documented By: BERENICE Sodium Chloride (0.9 % Sodium Chloride Flush 3 Ml Syringe) 3 ml IVFSH [facility] Last Admin: 11/17/24 07:41 Dose: 3 ml Documented By: HOMER Zolpidem Tartrate (Zolpidem Tartrate 5 Mg Tablet) 5 mg PO BEDTIME PRN PRN Reason: Insomnia Last Admin: 11/16/24 22:27 Dose: 5 mg Documented By: KATY Labs 11/17/24 05:50 11/17/24 05:50 Labs: Laboratory Results - last 24 hr 11/17/24 05:50 MCV 85.1 MCH 28.4 MCHC 33.3 RDW 15.1 Plt Count 426 H MPV 9.1 L Absolute Nucleated RBC 0.000 Nucleated RBC % (auto) 0.0 PT 19.4 H INR 1.7 H Anion Gap 16 Estim Creat Clear Calc 23.6 Estimated GFR 21 Random Glucose 122 H Calcium 8.9 Total Bilirubin 1.2 H Direct Bilirubin 0.9 H AST 48 H ALT 28 Alkaline Phosphatase 902 H Total Protein 6.8 Albumin 2.5 L Microbiology Microbiology Results: Microbiology 11/13/24 15:30 Gram Stain - Final Paracentesis Fluid Anaerobic Culture - Preliminary No growth to date. Body Fluid Culture - Final No growth after 2 days Procedures Date of Service Date of Service: 11/17/24 Progress Note: A&P Assessment and plan (1) Abdominal fluid collection: Status: Acute Plan Hx of laparoscopic cholecystectomy for phlegmonous thick walled necrotic gallbladder, unable to actually clip cystic duct remnant due to marked cicatrization and scarring now presenting with large fluid collection in the right upper quadrant. Had underwent paracentesis with drainage of ~275cc fluid, with MRCP 2 days later again showing large fluid collection, ?reaccumulation. Overall picture concerning for ongoing bile leak. Will await to see what is drained during procedure and will ask GI to resee for possible need for ERCP, stent placement. Time Spent With Patient Time: Total time managing care of this patient today ____ minutes. Quality Stroke Does the patient have a stroke diagnosis?: No VTE Prior VTE?: No VTE Risk Level:: Medical - moderate - high VTE Device Contraindication: Treatment Not Indicated VTE Drug Contraindication: N/A - Med Ordered
--- NOTE | 2024-11-17 09:05 | HO.PM.IMPN ---
Subjective Subjective Date of Service: 11/17/24 Interval History: Seen and examined this morning Follow-up for abdominal pain Patient reports improvement abdominal pain today. No nausea, no vomiting MRCP results resulted showing large fluid collection in the right upper quadrant Review of Systems Review of Systems: Yes all other systems are reviewed and are negative Constitutional Constitutional: Denies chills and Denies fever(s) ENT Ears, Nose, Mouth, and Throat: Denies dizziness Cardiovascular Cardiovascular: Denies chest pain, Denies palpitations and Denies dyspnea Respiratory Respiratory: Denies cough and Denies dyspnea Neurologic Neurologic: Denies dizziness Endocrine Endocrine: Denies palpitations Physical Exam Vital Signs: Vital Signs: Last Vital Signs Temp 97.7 F 11/17/24 06:58 Pulse 88 11/17/24 06:58 Resp 18 11/17/24 06:58 BP 149/76 H 11/17/24 06:58 Pulse Ox 94 11/17/24 06:58 O2 Del Method Room Air 11/17/24 06:58 BMI result Body Mass Index 29.7 Appearing in no acute distress lung sounds are clear to auscultation heart regular rate rhythm, clear S1, S2 positive bowel sounds, abdomen is soft, nontender neuro patient is alert x3, no focal deficits Objective Data Active Medications Acetaminophen (Acetaminophen 325 Mg Tablet) 650 mg PO Q6H PRN PRN Reason: Pain, Mild 1-3,fever,headache Last Admin: 11/14/24 05:01 Dose: 650 mg Documented By: MAXI Amlodipine Besylate (Amlodipine Besylate 10 Mg Tablet) 10 mg PO DAILY [facility]; Protocol Last Admin: 11/17/24 07:39 Dose: 10 mg Documented By: HOMER Apixaban (Apixaban 2.5 Mg Tablet) 2.5 mg PO BID [facility] Last Admin: 11/16/24 10:02 Dose: 2.5 mg Documented By: BERENICE Calcium Carbonate (Calcium Carbonate 750 Mg Tab.Chew) 750 mg PO Q4H PRN PRN Reason: Heartburn Ceftriaxone Sodium (Ceftriaxone Sodium 2 Gm Vial) 2 gm IVPUSH Q24H [facility] Last Admin: 11/16/24 14:31 Dose: 2 gm Documented By: BERENICE Hydralazine HCl (Hydralazine Hcl 20 Mg/Ml Vial) 5 mg IVPUSH Q6H PRN; Protocol PRN Reason: SBP>180 Hydralazine HCl (Hydralazine Hcl 10 Mg Tablet) 10 mg PO TID [facility]; Protocol Last Admin: 11/17/24 07:39 Dose: 10 mg Documented By: HOMER Metronidazole (Flagyl) 500 mg in 100 mls @ 100 mls/hr IV Q8H [facility] Last Infusion: 11/17/24 06:20 Dose: Infused Documented By: KATY Magnesium Hydroxide (Milk Of Magnesia 30 Ml Oral.Susp) 30 ml PO DAILY PRN PRN Reason: Constipation Melatonin (Melatonin 3 Mg Tablet) 6 mg PO BEDTIME PRN PRN Reason: Insomnia Last Admin: 11/15/24 20:30 Dose: 6 mg Documented By: SHAYY Morphine Sulfate (Morphine Sulfate 2 Mg/Ml Cartridge) 2 mg IVPUSH Q4H PRN; Protocol PRN Reason: Pain, Severe (Pain Scale 7-10) Last Admin: 11/17/24 02:18 Dose: 2 mg Documented By: KATY Ondansetron HCl (Ondansetron Hcl 4 Mg/2 Ml Vial) 4 mg IVPUSH Q8H PRN PRN Reason: Nausea and Vomiting Oxycodone HCl (Oxycodone Hcl Immed Release 5 Mg Tablet) 5 mg PO Q6H PRN PRN Reason: Pain, Moderate(Pain Scale 4-6) Last Admin: 11/16/24 17:40 Dose: 5 mg Documented By: BERENICE Sodium Chloride (0.9 % Sodium Chloride Flush 3 Ml Syringe) 3 ml [facility] Last Admin: 11/17/24 07:41 Dose: 3 ml Documented By: HOMER Zolpidem Tartrate (Zolpidem Tartrate 5 Mg Tablet) 5 mg PO BEDTIME PRN PRN Reason: Insomnia Last Admin: 11/16/24 22:27 Dose: 5 mg Documented By: KATY Labs 11/17/24 05:50 11/17/24 05:50 Labs: Laboratory Results - last 24 hr 11/17/24 05:50 MCV 85.1 MCH 28.4 MCHC 33.3 RDW 15.1 Plt Count 426 H MPV 9.1 L Absolute Nucleated RBC 0.000 Nucleated RBC % (auto) 0.0 PT 19.4 H INR 1.7 H Anion Gap 16 Estim Creat Clear Calc 23.6 Estimated GFR 21 Random Glucose 122 H Calcium 8.9 Total Bilirubin 1.2 H Direct Bilirubin 0.9 H AST 48 H ALT 28 Alkaline Phosphatase 902 H Total Protein 6.8 Albumin 2.5 L Microbiology Microbiology Results: Microbiology 11/13/24 15:30 Gram Stain - Final Paracentesis Fluid Anaerobic Culture - Preliminary No growth to date. Body Fluid Culture - Final No growth after 2 days Assessment and Plan (1) KELSEY (acute kidney injury): Status: Acute (2) Colitis: Status: Acute Plan This is a 74-year-old male with history of AFib on Eliquis, CKD 4, CHF, diabetes, anemia of chronic disease, hyperparathyroidism was admitted in October found to have acute cholecystitis status post cholecystectomy on October 22 who returned to the emergency department on November 12 and admitted with abdominal pain secondary to colitis Abdominal pain. still requiring frequent doses of iv narcotics for adequate pain control initially thought to be due to colitis. MRCP now showing Large fluid collection in the right upper quadrant; possible abscess vs hematoma previous imaging showed ascites paracentesis to eval for SBP - with elevated WBCs but neutrophils not proportionally high- possible translocation from colitis/infection did have recent cholecystectomy 10/22 Phlegmonous thick walled necrotic gallbladder with dense omental adhesions has not had significant drop in H/H, had paracentesis 11/13 with no growth from fluid, fluid was not described as bilious continue IV ceftriaxone, Flagyl fluid culture with no growth to date, cytology pending Hold Eliquis, plan for IR guided drainage of fluid collection Acute Colitis Infectious versus inflammatory no further diarrhea, stool studies cancelled Initially treated with IV Zosyn, changed to IV ceftriaxone/Flagyl due to elevated LFTs tolerating diet GI following blood cultures negative Transaminitis/Liver cirrhosis Alk phos persistently elevated GI consultation - paracentesis as above will change abx in the event zosyn is contributing to elevated numbers AST/ALT have normalized but bili/alk-phos still elevated follow LFTs Right pleural effusion denies respiratory symptoms no hypoxia KELSEY on ckd4 Likely secondary to GI losses and dehydration Creatinine has plateaued hold lisinopril Nephrology following Avoid nephrotoxins follow BMP Hypertension Elevated blood pressure hold lisinopril due to KELSEY, continue amlodipine start po hydralazine, up titrate prn Hydralazine IV for systolic blood pressure greater than 180 Hyperlipidemia Hold statin for now due to elevated LFTs DVT prophylaxis with Eliquis Full code Requires ongoing inpatient stay for management of right upper quadrant complex fluid collection of unclear etiology, plan for further workup including IR drainage, IV antibiotics and pain management Quality Stroke Does the patient have a stroke diagnosis?: No VTE Prior VTE?: No VTE Risk Level:: Medical - moderate - high VTE Device Contraindication: Treatment Not Indicated VTE Drug Contraindication: N/A - Med Ordered
--- NOTE | 2024-11-17 11:34 | P.PNNP_ITS ---
Subjective Subjective Date of Service: 11/17/24 Interval history: Seen this morning; Events noted. All recent data reviewed Physical Exam 2 Vital Signs: Vital Signs: Last Vital Signs Temp 97.7 F 11/17/24 06:58 Pulse 88 11/17/24 06:58 Resp 18 11/17/24 06:58 BP 149/76 H 11/17/24 06:58 Pulse Ox 94 11/17/24 06:58 O2 Del Method Room Air 11/17/24 06:58 BMI result Body Mass Index 29.7 Const: General: no acute distress Orientation/consciousness: patient oriented x3 Eyes: EOM: EOMs intact bilaterally Neck: Neck: Yes supple Resp: Auscultation: diminished lung sounds Cardio: Rate: regular rate GI: Palpation (GI): Soft to palpation Neuro: General: patient oriented x3 and moves all extremities Objective Data Labs 11/17/24 05:50 11/17/24 05:50 Labs: Laboratory Results - last 24 hr 11/17/24 05:50 WBC 16.4 H RBC 4.69 Hgb 13.3 L Hct 39.9 L MCV 85.1 MCH 28.4 MCHC 33.3 RDW 15.1 Plt Count 426 H MPV 9.1 L Absolute Nucleated RBC 0.000 Nucleated RBC % (auto) 0.0 PT 19.4 H INR 1.7 H Sodium 136 Potassium 3.9 Chloride 103 Carbon Dioxide 21 L Anion Gap 16 BUN 90 H Creatinine 2.96 H Estim Creat Clear Calc 23.6 Estimated GFR 21 Random Glucose 122 H Calcium 8.9 Total Bilirubin 1.2 H Direct Bilirubin 0.9 H AST 48 H ALT 28 Alkaline Phosphatase 902 H Total Protein 6.8 Albumin 2.5 L Microbiology Microbiology Results: Microbiology 11/13/24 15:30 Paracentesis Fluid Gram Stain - Final 11/13/24 15:30 Paracentesis Fluid Anaerobic Culture - Preliminary No growth to date. 11/13/24 15:30 Paracentesis Fluid Body Fluid Culture - Final No growth after 2 days 11/12/24 14:38 Blood - Venous Blood Culture - Preliminary No growth after 48 hours. 11/12/24 14:38 Blood - Venous Blood Culture - Preliminary No growth after 48 hours. Procedures Date of Service Date of Service: 11/17/24 Assessment & Plan Assessment and plan (1) KELSEY (acute kidney injury): Status: Acute Plan KELSEY due to compromise in renal perfusion with resultant tubular injury No reason to suspect GN/AIN. UO OK. ACEI on hold Serum creatinine better/stable. No reason to suspect AIN/GN No indication for renal replacement. C/W current supportive mgt Progress Note: Quality Stroke Does the patient have a stroke diagnosis?: No
[2024-11-17] MEDS: cefTRIAXone sodium 2 GM VIAL IVPUSH (12:38)
--- NOTE | 2024-11-17 14:02 | MHC.CM.PN ---
EMR REVIEWED AND PER MD ROUNDS, PT IS NOT MEDICALLY CLEARED FOR DC (WAITING FOR IR, IV ABT) CM WILL CONTINUE TO FOLLOW FOR ANY CHANGE TO DC PLAN/NEEDS
[2024-11-17] MEDS: Melatonin 3 MG TABLET 6 MG PO (21:04)
[2024-11-17] MEDS: Zolpidem Tartrate 5 MG TABLET PO (22:11)
[2024-11-18] MEDS: oxyCODONE HCl Immed Release 5 MG TABLET PO ×3 (01:18→20:38)
[2024-11-18] MEDS: Morphine Sulfate 2 MG/ML CARTRIDGE IVPUSH ×3 (02:58→17:41)
[2024-11-18 03:29] VITALS: BP 121/67; PULSE 87; RESP 18; TEMP 36.5; O2SAT 93
[2024-11-18] MEDS: metroNIDAZOLE/NS 500 MG/100 ML PIGGYBACK 100 MG IV ×3 (06:11→22:18)
[2024-11-18 07:38] VITALS: BP 167/83; PULSE 90; RESP 16; TEMP 36.3; O2SAT 92
[2024-11-18] MEDS: hydrALAZINE HCl 10 MG TABLET PO ×3 (07:43→20:39)
[2024-11-18] MEDS: amLODIPine Besylate 10 MG TABLET PO (07:43)
[2024-11-18] MEDS: 0.9 % Sodium Chloride Flush 3 ML SYRINGE IVFLUSH ×2 (07:43→20:40)
--- NOTE | 2024-11-18 07:59 | PM.PNGS ---
Subjective Subjective Date of Service: 11/18/24 Interval history: Had drainage yesterday. Has some improvement in pain but c/o pain at the drain site. Physical Exam Vital Signs: Vital Signs: Last Vital Signs Temp 97.4 F 11/18/24 07:38 Pulse 90 11/18/24 07:38 Resp 16 11/18/24 07:38 BP 167/83 H 11/18/24 07:38 Pulse Ox 92 11/18/24 07:38 O2 Del Method Room Air 11/18/24 07:38 O2 Flow Rate 2 11/17/24 14:00 BMI result Body Mass Index 29.7 Const: General: comfortable, no acute distress and alert Orientation/consciousness: patient oriented x3 GI: Other: drainage bag with dark output Inspection: No distended Palpation (GI): Soft to palpation, Tenderness to palpation present (GI) (mild right sided) and no guarding Skin: General skin exam: no rashes or lesions noted and no jaundice Neuro: General: patient oriented x3 and moves all extremities Objective Data Active Medications Acetaminophen (Acetaminophen 325 Mg Tablet) 650 mg PO Q6H PRN PRN Reason: Pain, Mild 1-3,fever,headache Last Admin: 11/14/24 05:01 Dose: 650 mg Documented By: MAXI Amlodipine Besylate (Amlodipine Besylate 10 Mg Tablet) 10 mg PO DAILY [facility]; Protocol Last Admin: 11/18/24 07:43 Dose: 10 mg Documented By: HOMER Apixaban (Apixaban 2.5 Mg Tablet) 2.5 mg PO BID [facility] Last Admin: 11/16/24 10:02 Dose: 2.5 mg Documented By: DOBROManju Calcium Carbonate (Calcium Carbonate 750 Mg Tab.Chew) 750 mg PO Q4H PRN PRN Reason: Heartburn Ceftriaxone Sodium (Ceftriaxone Sodium 2 Gm Vial) 2 gm IVPUSH Q24H [facility] Last Admin: 11/17/24 12:38 Dose: 2 gm Documented By: HOMER Hydralazine HCl (Hydralazine Hcl 20 Mg/Ml Vial) 5 mg IVPUSH Q6H PRN; Protocol PRN Reason: SBP>180 Hydralazine HCl (Hydralazine Hcl 10 Mg Tablet) 10 mg PO TID [facility]; Protocol Last Admin: 11/18/24 07:43 Dose: 10 mg Documented By: HOMER Metronidazole (Flagyl) 500 mg in 100 mls @ 100 mls/hr IV Q8H [facility] Last Infusion: 11/18/24 07:38 Dose: Infused Documented By: HOMER Magnesium Hydroxide (Milk Of Magnesia 30 Ml Oral.Susp) 30 ml PO DAILY PRN PRN Reason: Constipation Melatonin (Melatonin 3 Mg Tablet) 6 mg PO BEDTIME PRN PRN Reason: Insomnia Last Admin: 11/17/24 21:04 Dose: 6 mg Documented By: KATY Morphine Sulfate (Morphine Sulfate 2 Mg/Ml Cartridge) 2 mg IVPUSH Q4H PRN; Protocol PRN Reason: Pain, Severe (Pain Scale 7-10) Last Admin: 11/18/24 02:58 Dose: 2 mg Documented By: KATY Ondansetron HCl (Ondansetron Hcl 4 Mg/2 Ml Vial) 4 mg IVPUSH Q8H PRN PRN Reason: Nausea and Vomiting Oxycodone HCl (Oxycodone Hcl Immed Release 5 Mg Tablet) 5 mg PO Q6H PRN PRN Reason: Pain, Moderate(Pain Scale 4-6) Last Admin: 11/18/24 07:43 Dose: 5 mg Documented By: HOMER Sodium Chloride (0.9 % Sodium Chloride Flush 3 Ml Syringe) 3 ml IVFSH [facility] Last Admin: 11/18/24 07:43 Dose: 3 ml Documented By: HOMER Zolpidem Tartrate (Zolpidem Tartrate 5 Mg Tablet) 5 mg PO BEDTIME PRN PRN Reason: Insomnia Last Admin: 11/17/24 22:11 Dose: 5 mg Documented By: KATY Labs 11/17/24 05:50 11/17/24 05:50 Microbiology Microbiology Results: Microbiology 11/12/24 14:38 Blood Culture - Final Blood - Venous No growth after 5 days. 11/12/24 14:38 Blood Culture - Final Blood - Venous No growth after 5 days. 11/13/24 15:30 Gram Stain - Final Paracentesis Fluid Anaerobic Culture - Preliminary No growth to date. Body Fluid Culture - Final No growth after 2 days Procedures Date of Service Date of Service: 11/18/24 Progress Note: A&P Assessment and plan (1) Abdominal fluid collection: Status: Acute (2) Bile leak: Status: Acute Plan Underwent CT guided drainage yesterday, drainage appears to be bilious/old hematoma. HIDA scan performed which was positive for bile leak. Discussed with Dr. Fernandez who will add on patient for ERCP tomorrow. Can have clears for now, NPO after midnight. Keep drain in place for now. Time Spent With Patient Time: Total time managing care of this patient today ____ minutes. Quality Stroke Does the patient have a stroke diagnosis?: No VTE Prior VTE?: No VTE Risk Level:: Medical - moderate - high VTE Device Contraindication: Treatment Not Indicated VTE Drug Contraindication: N/A - Med Ordered
--- NOTE | 2024-11-18 08:23 | P.PNIM_ITS ---
Subjective Subjective Date of Service: 11/18/24 Interval History: Seen and examined this morning Follow-up for abdominal pain Patient reports improvement abdominal pain today. No nausea, no vomiting MRCP results resulted showing large fluid collection in the right upper quadrant Review of Systems Review of Systems: Yes all other systems are reviewed and are negative Constitutional Constitutional: Denies chills and Denies fever(s) ENT Ears, Nose, Mouth, and Throat: Denies dizziness Cardiovascular Cardiovascular: Denies chest pain, Denies palpitations and Denies dyspnea Respiratory Respiratory: Denies cough and Denies dyspnea Neurologic Neurologic: Denies dizziness Endocrine Endocrine: Denies palpitations Physical Exam 2 Vital Signs: Vital Signs: Last Vital Signs Temp 97.4 F 11/18/24 07:38 Pulse 90 11/18/24 07:38 Resp 16 11/18/24 07:38 BP 167/83 H 11/18/24 07:38 Pulse Ox 92 11/18/24 07:38 O2 Del Method Room Air 11/18/24 07:38 O2 Flow Rate 2 11/17/24 14:00 BMI result Body Mass Index 29.7 Appearing in no acute distress lung sounds are clear to auscultation heart regular rate rhythm, clear S1, S2 positive bowel sounds, abdomen is soft, nontender neuro patient is alert x3, no focal deficits Objective Data Active Medications Acetaminophen (Acetaminophen 325 Mg Tablet) 650 mg PO Q6H PRN PRN Reason: Pain, Mild 1-3,fever,headache Last Admin: 11/14/24 05:01 Dose: 650 mg Documented By: MAXI Amlodipine Besylate (Amlodipine Besylate 10 Mg Tablet) 10 mg PO DAILY [facility]; Protocol Last Admin: 11/18/24 07:43 Dose: 10 mg Documented By: HOMER Apixaban (Apixaban 2.5 Mg Tablet) 2.5 mg PO BID [facility] Last Admin: 11/16/24 10:02 Dose: 2.5 mg Documented By: DOBROManju Calcium Carbonate (Calcium Carbonate 750 Mg Tab.Chew) 750 mg PO Q4H PRN PRN Reason: Heartburn Ceftriaxone Sodium (Ceftriaxone Sodium 2 Gm Vial) 2 gm IVPUSH Q24H [facility] Last Admin: 11/17/24 12:38 Dose: 2 gm Documented By: HOMER Hydralazine HCl (Hydralazine Hcl 20 Mg/Ml Vial) 5 mg IVPUSH Q6H PRN; Protocol PRN Reason: SBP>180 Hydralazine HCl (Hydralazine Hcl 10 Mg Tablet) 10 mg PO TID [facility]; Protocol Last Admin: 11/18/24 07:43 Dose: 10 mg Documented By: HOMER Metronidazole (Flagyl) 500 mg in 100 mls @ 100 mls/hr IV Q8H [facility] Last Infusion: 11/18/24 07:38 Dose: Infused Documented By: HOMER Magnesium Hydroxide (Milk Of Magnesia 30 Ml Oral.Susp) 30 ml PO DAILY PRN PRN Reason: Constipation Melatonin (Melatonin 3 Mg Tablet) 6 mg PO BEDTIME PRN PRN Reason: Insomnia Last Admin: 11/17/24 21:04 Dose: 6 mg Documented By: KATY Morphine Sulfate (Morphine Sulfate 2 Mg/Ml Cartridge) 2 mg IVPUSH Q4H PRN; Protocol PRN Reason: Pain, Severe (Pain Scale 7-10) Last Admin: 11/18/24 02:58 Dose: 2 mg Documented By: KATY Ondansetron HCl (Ondansetron Hcl 4 Mg/2 Ml Vial) 4 mg IVPUSH Q8H PRN PRN Reason: Nausea and Vomiting Oxycodone HCl (Oxycodone Hcl Immed Release 5 Mg Tablet) 5 mg PO Q6H PRN PRN Reason: Pain, Moderate(Pain Scale 4-6) Last Admin: 11/18/24 07:43 Dose: 5 mg Documented By: HOMER Sodium Chloride (0.9 % Sodium Chloride Flush 3 Ml Syringe) 3 ml [facility] Last Admin: 11/18/24 07:43 Dose: 3 ml Documented By: HOMER Zolpidem Tartrate (Zolpidem Tartrate 5 Mg Tablet) 5 mg PO BEDTIME PRN PRN Reason: Insomnia Last Admin: 11/17/24 22:11 Dose: 5 mg Documented By: KATY Labs 11/17/24 05:50 11/17/24 05:50 Microbiology Microbiology Results: Microbiology 11/12/24 14:38 Blood Culture - Final Blood - Venous No growth after 5 days. 11/12/24 14:38 Blood Culture - Final Blood - Venous No growth after 5 days. 11/13/24 15:30 Gram Stain - Final Paracentesis Fluid Anaerobic Culture - Preliminary No growth to date. Body Fluid Culture - Final No growth after 2 days Assessment and Plan (1) KELSEY (acute kidney injury): Status: Acute (2) Colitis: Status: Acute Plan 74-year-old male with history of AFib on Eliquis, CKD 4, CHF, diabetes, anemia of chronic disease, hyperparathyroidism was admitted in October found to have acute cholecystitis status post cholecystectomy on October 22 who returned to the emergency department on November 12 and admitted with abdominal pain secondary to colitis Abdominal pain. initially thought to be due to colitis. MRCP showing Large fluid collection in the right upper quadrant; possible abscess vs hematoma cholecystectomy 10/22 Phlegmonous thick walled necrotic gallbladder with dense omental adhesions paracentesis 11/13 with no growth from fluid, fluid was not described as bilious continue IV ceftriaxone, Flagyl fluid culture with no growth to date Hold Eliquis, s/p IR guided drainage and drain placement 11/17/24 Plan for ERCP tomorrow Acute Colitis Infectious versus inflammatory no further diarrhea, stool studies cancelled Initially treated with IV Zosyn, changed to IV ceftriaxone/Flagyl due to elevated LFTs GI following blood cultures negative Transaminitis/Liver cirrhosis Alk phos persistently elevated GI consultation - paracentesis as above AST/ALT have normalized but bili/alk-phos still elevated follow LFTs Right pleural effusion denies respiratory symptoms no hypoxia KELSEY on ckd4 Likely secondary to GI losses and dehydration Creatinine has plateaued hold lisinopril Nephrology following Avoid nephrotoxins follow BMP Hypertension Elevated blood pressure hold lisinopril due to KELSEY continue amlodipine, hydralazine, up titrate prn Hydralazine IV for systolic blood pressure greater than 180 Hyperlipidemia Hold statin for now due to elevated LFTs DVT prophylaxis with Eliquis(on hold for ERCP) Full code Quality Stroke Does the patient have a stroke diagnosis?: No VTE Prior VTE?: No VTE Risk Level:: Medical - moderate - high VTE Device Contraindication: Treatment Not Indicated VTE Drug Contraindication: N/A - Med Ordered
[2024-11-18] MEDS: cefTRIAXone sodium 2 GM VIAL IVPUSH (14:37)
[2024-11-18 16:01] VITALS: BP 138/67; PULSE 80; RESP 12; TEMP 36.1; O2SAT 93
--- NOTE | 2024-11-18 18:32 | P.PNNP_ITS ---
Subjective Subjective Date of Service: 11/18/24 Interval history: Seen and examined this morning. All recent data reviewed Physical Exam 2 Vital Signs: Vital Signs: Last Vital Signs Temp 96.9 F 11/18/24 16:01 Pulse 80 11/18/24 16:01 Resp 12 11/18/24 16:01 BP 138/67 11/18/24 16:01 Pulse Ox 93 11/18/24 16:01 O2 Del Method Room Air 11/18/24 16:01 O2 Flow Rate 2 11/17/24 14:00 BMI result Body Mass Index 29.7 Const: General: no acute distress Orientation/consciousness: patient oriented x3 Eyes: EOM: EOMs intact bilaterally Resp: Auscultation: diminished lung sounds Cardio: Rate: regular rate GI: Palpation (GI): Soft to palpation Neuro: General: patient oriented x3 Objective Data Labs 11/17/24 05:50 11/17/24 05:50 Microbiology Microbiology Results: Microbiology 11/13/24 15:30 Paracentesis Fluid Gram Stain - Final 11/13/24 15:30 Paracentesis Fluid Anaerobic Culture - Final NO GROWTH AFTER 5 DAYS 11/13/24 15:30 Paracentesis Fluid Body Fluid Culture - Final No growth after 2 days 11/12/24 14:38 Blood - Venous Blood Culture - Final No growth after 5 days. 11/12/24 14:38 Blood - Venous Blood Culture - Final No growth after 5 days. Procedures Date of Service Date of Service: 11/18/24 Assessment & Plan Assessment and plan (1) KELSEY (acute kidney injury): Status: Acute Plan KELSEY due to compromise in renal perfusion with resultant tubular injury No reason to suspect GN/AIN. UO OK. ACEI on hold Serum creatinine stable. No reason to suspect AIN/GN No indication for renal replacement. C/W current supportive mgt Progress Note: Quality Stroke Does the patient have a stroke diagnosis?: No
[2024-11-18 20:00] VITALS: BP 136/68; PULSE 79; RESP 20; TEMP 36.8; O2SAT 93
[2024-11-18] MEDS: Melatonin 3 MG TABLET 6 MG PO (20:38)
[2024-11-18 20:39] VITALS: BP 136/68
[2024-11-18] MEDS: Zolpidem Tartrate 5 MG TABLET PO (20:40)
[2024-11-19] VITALS (12 sets, daily range): BP systolic 132–158; BP diastolic 51–73; PULSE 82–98; RESP 16–20; TEMP 36.1–36.9; O2SAT 93–95; BMI 29.7
[2024-11-19] MEDS: metroNIDAZOLE/NS 500 MG/100 ML PIGGYBACK 100 MG IV ×3 (06:05→22:10)
[2024-11-19] MEDS: amLODIPine Besylate 10 MG TABLET PO (08:11)
[2024-11-19] MEDS: hydrALAZINE HCl 10 MG TABLET PO ×3 (08:11→20:10)
[2024-11-19] MEDS: 0.9 % Sodium Chloride Flush 3 ML SYRINGE IVFLUSH ×2 (08:12→20:11)
--- NOTE | 2024-11-19 08:44 | HO.PM.IMPN ---
Subjective Subjective Date of Service: 11/19/24 Interval History: Seen and examined this morning Follow-up for abdominal pain Patient reports improvement abdominal pain today. No nausea, no vomiting MRCP results resulted showing large fluid collection in the right upper quadrant Review of Systems Review of Systems: Yes all other systems are reviewed and are negative Constitutional Constitutional: Denies chills and Denies fever(s) ENT Ears, Nose, Mouth, and Throat: Denies dizziness Cardiovascular Cardiovascular: Denies chest pain, Denies palpitations and Denies dyspnea Respiratory Respiratory: Denies cough and Denies dyspnea Neurologic Neurologic: Denies dizziness Endocrine Endocrine: Denies palpitations Physical Exam Vital Signs: Vital Signs: Last Vital Signs Temp 97.2 F 11/19/24 07:52 Pulse 92 11/19/24 07:52 Resp 18 11/19/24 07:52 BP 151/72 H 11/19/24 07:52 Pulse Ox 94 11/19/24 07:52 O2 Del Method Room Air 11/19/24 07:52 O2 Flow Rate 2 11/17/24 14:00 BMI result Body Mass Index 29.7 Objective Data Active Medications Acetaminophen (Acetaminophen 325 Mg Tablet) 650 mg PO Q6H PRN PRN Reason: Pain, Mild 1-3,fever,headache Last Admin: 11/14/24 05:01 Dose: 650 mg Documented By: MAXI Amlodipine Besylate (Amlodipine Besylate 10 Mg Tablet) 10 mg PO DAILY [facility]; Protocol Last Admin: 11/19/24 08:11 Dose: 10 mg Documented By: MEG Apixaban (Apixaban 2.5 Mg Tablet) 2.5 mg PO BID [facility] Last Admin: 11/16/24 10:02 Dose: 2.5 mg Documented By: BROManju Calcium Carbonate (Calcium Carbonate 750 Mg Tab.Chew) 750 mg PO Q4H PRN PRN Reason: Heartburn Ceftriaxone Sodium (Ceftriaxone Sodium 2 Gm Vial) 2 gm IVPUSH Q24H [facility] Last Admin: 11/18/24 14:37 Dose: 2 gm Documented By: HOMER Hydralazine HCl (Hydralazine Hcl 20 Mg/Ml Vial) 5 mg IVPUSH Q6H PRN; Protocol PRN Reason: SBP>180 Hydralazine HCl (Hydralazine Hcl 10 Mg Tablet) 10 mg PO TID [facility]; Protocol Last Admin: 11/19/24 08:11 Dose: 10 mg Documented By: MEG Metronidazole (Flagyl) 500 mg in 100 mls @ 100 mls/hr IV Q8H [facility] Last Infusion: 11/19/24 07:05 Dose: Infused Documented By: MEG Magnesium Hydroxide (Milk Of Magnesia 30 Ml Oral.Susp) 30 ml PO DAILY PRN PRN Reason: Constipation Melatonin (Melatonin 3 Mg Tablet) 6 mg PO BEDTIME PRN PRN Reason: Insomnia Last Admin: 11/18/24 20:38 Dose: 6 mg Documented By: SUE Comments: early per pt request Morphine Sulfate (Morphine Sulfate 2 Mg/Ml Cartridge) 2 mg IVPUSH Q4H PRN; Protocol PRN Reason: Pain, Severe (Pain Scale 7-10) Last Admin: 11/18/24 17:41 Dose: 2 mg Documented By: HOMER Ondansetron HCl (Ondansetron Hcl 4 Mg/2 Ml Vial) 4 mg IVPUSH Q8H PRN PRN Reason: Nausea and Vomiting Sodium Chloride (0.9 % Sodium Chloride Flush 3 Ml Syringe) 3 ml IVFLUSH QSHIFT [facility] Last Admin: 11/19/24 08:12 Dose: 3 ml Documented By: MEG Labs 11/17/24 05:50 11/17/24 05:50 Microbiology Microbiology Results: Microbiology 11/13/24 15:30 Gram Stain - Final Paracentesis Fluid Anaerobic Culture - Final NO GROWTH AFTER 5 DAYS Body Fluid Culture - Final No growth after 2 days Assessment and Plan (1) KELSEY (acute kidney injury): Status: Acute (2) Colitis: Status: Acute Plan 74-year-old male with history of AFib on Eliquis, CKD 4, CHF, diabetes, anemia of chronic disease, hyperparathyroidism was admitted in October found to have acute cholecystitis status post cholecystectomy on October 22 who returned to the emergency department on November 12 and admitted with abdominal pain secondary to colitis Abdominal pain secodnary to bile leak initially thought to be due to colitis. MRCP showing Large fluid collection in the right upper quadrant; possible abscess vs hematoma cholecystectomy 10/22 Phlegmonous thick walled necrotic gallbladder with dense omental adhesions paracentesis 11/13 with no growth from fluid, fluid was not described as bilious continue IV ceftriaxone, Flagyl fluid culture with no growth to date Hold Eliquis s/p IR guided drainage and drain placement 11/17/24 Plan for ERCP today Acute Colitis Infectious versus inflammatory no further diarrhea, stool studies cancelled Initially treated with IV Zosyn, changed to IV ceftriaxone/Flagyl due to elevated LFTs GI following blood cultures negative Transaminitis/Liver cirrhosis Alk phos persistently elevated GI consultation - paracentesis as above AST/ALT have normalized but bili/alk-phos still elevated follow LFTs Right pleural effusion denies respiratory symptoms no hypoxia KELSEY on [id number] Likely secondary to GI losses and dehydration Creatinine has plateaued hold lisinopril Nephrology following Avoid nephrotoxins follow BMP Chronic afib eliquis on hold for ERCP Hypertension Elevated blood pressure hold lisinopril due to KELSEY continue amlodipine, hydralazine, up titrate prn Hydralazine IV for systolic blood pressure greater than 180 Hyperlipidemia Hold statin for now due to elevated LFTs DVT prophylaxis with Eliquis(on hold for ERCP) Full code Quality Stroke Does the patient have a stroke diagnosis?: No VTE Prior VTE?: No VTE Risk Level:: Medical - moderate - high VTE Device Contraindication: Treatment Not Indicated VTE Drug Contraindication: N/A - Med Ordered
--- NOTE | 2024-11-19 09:21 | P.PNNP_ITS ---
Subjective Subjective Date of Service: 11/19/24 Interval history: Events noted. All recent data reviewed. Due ERCP Physical Exam 2 Vital Signs: Vital Signs: Last Vital Signs Temp 97.2 F 11/19/24 07:52 Pulse 92 11/19/24 07:52 Resp 18 11/19/24 07:52 BP 151/72 H 11/19/24 07:52 Pulse Ox 94 11/19/24 07:52 O2 Del Method Room Air 11/19/24 07:52 O2 Flow Rate 2 11/17/24 14:00 BMI result Body Mass Index 29.7 Const: General: no acute distress Orientation/consciousness: patient oriented x3 Eyes: EOM: EOMs intact bilaterally Neck: Neck: Yes supple Resp: Auscultation: diminished lung sounds Cardio: Rate: regular rate GI: Palpation (GI): Soft to palpation Neuro: General: patient oriented x3 Objective Data Labs 11/17/24 05:50 11/17/24 05:50 Microbiology Microbiology Results: Microbiology 11/13/24 15:30 Paracentesis Fluid Gram Stain - Final 11/13/24 15:30 Paracentesis Fluid Anaerobic Culture - Final NO GROWTH AFTER 5 DAYS 11/13/24 15:30 Paracentesis Fluid Body Fluid Culture - Final No growth after 2 days 11/12/24 14:38 Blood - Venous Blood Culture - Final No growth after 5 days. 11/12/24 14:38 Blood - Venous Blood Culture - Final No growth after 5 days. Procedures Date of Service Date of Service: 11/19/24 Assessment & Plan Assessment and plan (1) KELSEY (acute kidney injury): Status: Acute Plan KELSEY due to compromise in renal perfusion with resultant tubular injury No reason to suspect GN/AIN. UO OK. ACEI on hold Serum creatinine had been stable. No reason to suspect AIN/GN No indication for renal replacement. Labs AM; C/W current supportive mgt Progress Note: Quality Stroke Does the patient have a stroke diagnosis?: No
--- NOTE | 2024-11-19 09:30 | PC.NURSE ---
Pt states he is missing $100. This RN searched around room did not find anything, money not listed in pt belongings.
--- NOTE | 2024-11-19 12:25 | PC.NURSE ---
20g left ac no leaking. fluids infusing patently.
[2024-11-19 12:34] LABS: Glucose, Whole Blood 118 mg/dL (60-115)
--- NOTE | 2024-11-19 13:07 | MHC.CM.PN ---
EMR REVIEWED AND PER MD ROUNDS, PT IS NOT MEDICALLY CLEARED FOR DC (ERCP SCHEDULED FOR TODAY) CM WILL CONTINUE TO FOLLOW FOR ANY CHANGE TO PLAN
--- NOTE | 2024-11-19 13:18 | P.PNGI_ITS ---
Subjective Subjective Date of Service: 11/19/24 Interval History: HIDA was pos for bile leak, this was ordered after drainage of collection showed it was bilious he still has pain in RUQ no nausea or fever Critical Care Time (minutes): 0 Physical Exam 2 Vital Signs: Vital Signs: Last Vital Signs Temp 97.5 F 11/19/24 12:06 Pulse 82 11/19/24 12:06 Resp 16 11/19/24 12:06 BP 145/67 H 11/19/24 12:06 Pulse Ox 93 11/19/24 12:06 O2 Del Method Room Air 11/19/24 12:06 O2 Flow Rate 2 11/17/24 14:00 BMI result Body Mass Index 29.7 EXAM: GENERAL: The patient is well developed and nontoxic. VITAL SIGNS:see workflow HEENT: Nonicteric sclerae, PERRLA, EOMI. Oropharynx clear. Moist mucous membranes. Conjunctivae appear well perfused. No thyroid mass. CHEST: Chest wall is nontender. HEART: Regular rate and rhythm without murmurs. LUNGS: Clear to auscultation bilaterally. ABDOMEN: Soft, positive bowel sounds, tender RUq, no organomegaly.no flank tenderness SKIN: No rash, no excessive bruising, petechiae, or purpura. NEUROLOGIC: Cranial nerves II-XII intact without motor/sensory deficit. Psych: normal affect Objective Data Labs 11/17/24 05:50 11/17/24 05:50 Labs: Laboratory Results - last 24 hr 11/19/24 12:28 POC Glucose 118 H Microbiology Microbiology Results: Microbiology 11/13/24 15:30 Paracentesis Fluid Gram Stain - Final 11/13/24 15:30 Paracentesis Fluid Anaerobic Culture - Final NO GROWTH AFTER 5 DAYS 11/13/24 15:30 Paracentesis Fluid Body Fluid Culture - Final No growth after 2 days 11/12/24 14:38 Blood - Venous Blood Culture - Final No growth after 5 days. 11/12/24 14:38 Blood - Venous Blood Culture - Final No growth after 5 days. Procedures Date of Service Date of Service: 11/19/24 Progress Note: A&P Assessment and plan (1) Bile leak: Status: Acute Plan 1/ bile leak, recent surgery PLAN: 1/ ERCP today for further assessment, cont with ABX Time Spent With Patient Time: Total time managing care of this patient today ____ minutes. Quality Stroke Does the patient have a stroke diagnosis?: No VTE Prior VTE?: No VTE Risk Level:: Medical - moderate - high VTE Device Contraindication: Treatment Not Indicated VTE Drug Contraindication: N/A - Med Ordered
--- NOTE | 2024-11-19 13:29 | P.CONAN_ITS ---
HPI - Anesthesia Eval Consult details Narrative: 74yo male patient for ERCP PMFSH Active Problems Active Problems: All Active Problems Bile leak (Acute) Abdominal fluid collection (Acute) KELSEY (acute kidney injury) (Acute) Colitis (Acute) Calculous cholecystitis (Acute) Secondary hyperparathyroidism (of renal origin) (Acute) Hydronephrosis (Acute) Osteoarthritis of left knee (Acute) Preop cardiovascular exam (Acute) Iron deficiency (Acute) Anemia in chronic kidney disease (CKD) (Acute) CKD (chronic kidney disease) stage 4, GFR 15-29 ml/min (Acute) Hospital discharge follow-up (Acute) Chronic atrial fibrillation (Acute) Former smoker (Acute) Depression (Acute) High cholesterol (Acute) CAD. H/o [place]. Occasional chest pain On Farxiga. Not sure why. Has not had for 2 weeks Skin nodule anterior chest wall Past Medical History Medical History Obesity (BMI 30.0-34.9) Cardiomyopathy CKD (chronic kidney disease) Stroke Chronic atrial fibrillation CHF (congestive heart failure) CKD (chronic kidney disease) Former smoker Depression Diabetes High cholesterol Hypertension Family History Family History Father No problems noted. Mother Diabetes Hypertension Cancer Son No problems noted. Son No problems noted. Son No problems noted. Daughter No problems noted. Daughter No problems noted. Family history of problems with anesthesia: No Surgical History Surgical History History of aneurysm History of shoulder surgery History of Problems with Anesthesia: No Social History Social History Household Members: None Household Members Other:: Housing: Apartment Do you presently have visiting nurse or other home services: No Alcohol intake: never Patient Tobacco Use Status: Former Tobacco user Smoked in Last 30 Days: No Use of substances other than those prescribed or required for medical reasons: No Currently Displaying Signs/Symptoms of Drug Intoxication Withdrawal: No Have you been hit, kicked, punched, or otherwise hurt by someone within the past year? If so, by whom?: No Do you feel safe in your current relationship?: Yes Is there a partner from a previous relationship who is making you feel unsafe now?: No Are you made to feel afraid or neglected: No Are you DNR?: No Advance Directives: No Advance Directives Information Provided: Yes Do you have a plan to hurt others: No Plan Recently lost weight without trying: No Nutrition Risks: No Nutritional Risk Poor oral hygiene: No service: No Current occupational status: disabled Meds Allergies Allergy/AdvReac Type Severity Reaction Status Date / Time No Known Allergies Allergy Verified 11/12/24 11:36 [No Known Allergies*] Active Medications: Current Medications Acetaminophen (Acetaminophen 325 Mg Tablet) 650 mg PO Q6H PRN PRN Reason: Pain, Mild 1-3,fever,headache Last Admin: 11/14/24 05:01 Dose: 650 mg Amlodipine Besylate (Amlodipine Besylate 10 Mg Tablet) 10 mg PO DAILY [facility]; Protocol Last Admin: 11/19/24 08:11 Dose: 10 mg Apixaban (Apixaban 2.5 Mg Tablet) 2.5 mg PO BID [facility] Last Admin: 11/16/24 10:02 Dose: 2.5 mg Calcium Carbonate (Calcium Carbonate 750 Mg Tab.Chew) 750 mg PO Q4H PRN PRN Reason: Heartburn Ceftriaxone Sodium (Ceftriaxone Sodium 2 Gm Vial) 2 gm IVPUSH Q24H [facility] Last Admin: 11/18/24 14:37 Dose: 2 gm Hydralazine HCl (Hydralazine Hcl 20 Mg/Ml Vial) 5 mg IVPUSH Q6H PRN; Protocol PRN Reason: SBP>180 Hydralazine HCl (Hydralazine Hcl 10 Mg Tablet) 10 mg PO TID [facility]; Protocol Last Admin: 11/19/24 08:11 Dose: 10 mg Metronidazole (Flagyl) 500 mg in 100 mls @ 100 mls/hr IV Q8H [facility] Last Infusion: 11/19/24 07:05 Dose: Infused Magnesium Hydroxide (Milk Of Magnesia 30 Ml Oral.Susp) 30 ml PO DAILY PRN PRN Reason: Constipation Melatonin (Melatonin 3 Mg Tablet) 6 mg PO BEDTIME PRN PRN Reason: Insomnia Last Admin: 11/18/24 20:38 Dose: 6 mg Morphine Sulfate (Morphine Sulfate 2 Mg/Ml Cartridge) 2 mg IVPUSH Q4H PRN; Protocol PRN Reason: Pain, Severe (Pain Scale 7-10) Last Admin: 11/18/24 17:41 Dose: 2 mg Ondansetron HCl (Ondansetron Hcl 4 Mg/2 Ml Vial) 4 mg IVPUSH Q8H PRN PRN Reason: Nausea and Vomiting Sodium Chloride (0.9 % Sodium Chloride Flush 3 Ml Syringe) 3 ml IVFLUSH QSHIFT [facility] Last Admin: 11/19/24 08:12 Dose: 3 ml Home Medications ?Medication ?Instructions ?Recorded ?Confirmed ?Last Taken ?Type blood-glucose meter #1 ea 05/14/20 01/14/24 Unknown History lancets #100 ea 05/14/20 01/14/24 Unknown History atorvastatin 40 mg tablet 40 mg PO DAILY 12/19/22 11/12/24 11/11/24 History apixaban 2.5 mg tablet (Eliquis) 2.5 mg PO BID 10/20/24 11/12/24 11/11/24 History lisinopril 40 mg tablet 40 mg PO DAILY 10/20/24 11/12/24 11/11/24 History amlodipine 10 mg tablet 10 mg PO QAM 11/12/24 11/12/24 Unknown History Exam Height,Weight and Vital Signs: Height 5 ft 7 in Weight 85.9 kg Last Vital Signs Temp 97.5 F 11/19/24 12:06 Pulse 82 11/19/24 12:06 Resp 16 11/19/24 12:06 BP 145/67 H 11/19/24 12:06 Pulse Ox 93 11/19/24 12:06 O2 Del Method Room Air 11/19/24 12:06 O2 Flow Rate 2 11/17/24 14:00 Pertinent Lab Results Pertinent Lab Results: Laboratory Tests 11/12/24 11/12/24 11/13/24 12:24 14:38 04:34 WBC 17.0 H RBC 4.94 Hgb 14.3 Hct 41.7 L MCV 84.4 MCH 28.9 MCHC 34.3 RDW 15.1 Plt Count 439 H D MPV 8.5 L Immature Gran % (Auto) 0.9 H Neut % (Auto) 92.5 H Lymph % (Auto) 2.6 L [place] % (Auto) 3.8 Eos % (Auto) 0.1 Baso % (Auto) 0.1 Lymph # (Auto) 0.4 L [place] # (Auto) 0.7 Eos # (Auto) 0.0 Baso # (Auto) 0.0 Abs Immat Gran (auto) 0.15 H Absolute Neuts (auto) 15.7 H Absolute Nucleated RBC 0.000 Nucleated RBC % (auto) 0.0 Smear Tech's Comments VERIFIED Hold Purple Top PT INR Sodium 137 140 Potassium 3.7 3.7 Chloride 104 107 Carbon Dioxide 23 21 L Anion Gap 14 16 BUN 109 H 106 H Creatinine 3.36 H 2.89 H Estim Creat Clear Calc 20.8 24.1 Estimated GFR 18 22 POC Glucose Random Glucose 166 H 118 H Lactic Acid 1.3 Calcium 9.6 9.2 Total Bilirubin 1.4 H 1.4 H Direct Bilirubin AST 41 H 46 H ALT 36 36 Alkaline Phosphatase 806 H 883 H Total Protein 7.1 6.9 Albumin 2.8 L 2.5 L Lipase 16 Peritoneal WBC Peritoneal RBC Periton Neutrophils Periton Lymphocytes Peritoneal Monocytes Peritoneal Other Cells Peritoneal Tot Protein Peritoneal Albumin 11/13/24 11/13/24 11/14/24 15:30 16:27 05:44 WBC 14.9 H RBC 4.86 Hgb 13.8 L Hct 41.5 L MCV 85.4 MCH 28.4 MCHC 33.3 RDW 15.4 Plt Count 432 H MPV 8.8 L Immature Gran % (Auto) Neut % (Auto) Lymph % (Auto) [place] % (Auto) Eos % (Auto) Baso % (Auto) Lymph # (Auto) [place] # (Auto) Eos # (Auto) Baso # (Auto) Abs Immat Gran (auto) Absolute Neuts (auto) Absolute Nucleated RBC 0.000 Nucleated RBC % (auto) 0.0 Smear Tech's Comments Hold Purple Top PT INR Sodium 140 Potassium 3.8 Chloride 107 Carbon Dioxide 21 L Anion Gap 16 BUN 98 H Creatinine 2.79 H Estim Creat Clear Calc 25.0 Estimated GFR 22 POC Glucose 125 H Random Glucose 134 H Lactic Acid Calcium 9.3 Total Bilirubin 1.5 H Direct Bilirubin 1.1 H AST 63 H ALT 44 H Alkaline Phosphatase 888 H Total Protein 6.7 Albumin 2.6 L Lipase Peritoneal WBC 7.159 Peritoneal RBC 0.004 Periton Neutrophils 22 Periton Lymphocytes 28 Peritoneal Monocytes 8 Peritoneal Other Cells 42 Peritoneal Tot Protein 3.6 Peritoneal Albumin 1.8 11/15/24 11/16/24 11/17/24 06:29 06:25 05:50 WBC 18.1 H 16.4 H RBC 4.70 4.69 Hgb 13.5 L 13.3 L Hct 39.8 L 39.9 L MCV 84.7 85.1 MCH 28.7 28.4 MCHC 33.9 33.3 RDW 15.1 15.1 Plt Count 469 H 426 H MPV 9.0 L 9.1 L Immature Gran % (Auto) Neut % (Auto) Lymph % (Auto) [place] % (Auto) Eos % (Auto) Baso % (Auto) Lymph # (Auto) [place] # (Auto) Eos # (Auto) Baso # (Auto) Abs Immat Gran (auto) Absolute Neuts (auto) Absolute Nucleated RBC 0.000 0.000 Nucleated RBC % (auto) 0.0 0.0 Smear Tech's Comments Hold Purple Top SEE NOTE SEE NOTE PT 19.4 H INR 1.7 H Sodium 136 136 136 Potassium 4.3 4.2 3.9 Chloride 104 104 103 Carbon Dioxide 22 22 21 L Anion Gap 14 14 16 BUN 91 H 93 H 90 H Creatinine 2.80 H 2.89 H 2.96 H Estim Creat Clear Calc 24.9 24.1 23.6 Estimated GFR 22 22 21 POC Glucose Random Glucose 125 H 137 H 122 H Lactic Acid Calcium 9.1 9.1 8.9 Total Bilirubin 1.6 H 1.4 H 1.2 H Direct Bilirubin 1.1 H 1.0 H 0.9 H AST 37 53 H 48 H ALT 30 29 28 Alkaline Phosphatase 895 H 894 H 902 H Total Protein 6.6 6.9 6.8 Albumin 2.6 L 2.5 L 2.5 L Lipase Peritoneal WBC Peritoneal RBC Periton Neutrophils Periton Lymphocytes Peritoneal Monocytes Peritoneal Other Cells Peritoneal Tot Protein Peritoneal Albumin 11/19/24 12:28 WBC RBC Hgb Hct MCV MCH MCHC RDW Plt Count MPV Immature Gran % (Auto) Neut % (Auto) Lymph % (Auto) [place] % (Auto) Eos % (Auto) Baso % (Auto) Lymph # (Auto) [place] # (Auto) Eos # (Auto) Baso # (Auto) Abs Immat Gran (auto) Absolute Neuts (auto) Absolute Nucleated RBC Nucleated RBC % (auto) Smear Tech's Comments Hold Purple Top PT INR Sodium Potassium Chloride Carbon Dioxide Anion Gap BUN Creatinine Estim Creat Clear Calc Estimated GFR POC Glucose 118 H Random Glucose Lactic Acid Calcium Total Bilirubin Direct Bilirubin AST ALT Alkaline Phosphatase Total Protein Albumin Lipase Peritoneal WBC Peritoneal RBC Periton Neutrophils Periton Lymphocytes Peritoneal Monocytes Peritoneal Other Cells Peritoneal Tot Protein Peritoneal Albumin Airway Mallampati Class: II TM Dist: >3cm Neck ROM: Full Loose/Missing/Broken Teeth: No (Denies broken, loose or missing teeth) Heart: Irregularly irregular Lungs: CTAB Assessment and Plan Assessment Anesthesia Assessment: Anesthesia Plan Discussed and Chart Reviewed Final Anesthetic Review Family History of Problems with Anesthesia: No History of Problems with Anesthesia: No NPO: Yes ASA Class: IV and Emergency Final Preanesthetic Review: No Changes in Pt Med Stat, Meds/Allgs Chart Reviewed, Consent Obtained/Reviewed and Anes Risks/Benef Reviewed Patient Risk: High Procedure Risk: Intermediate Assessment/Block/Sedation in SS: Assess/Block/Sedation-SS Anesthetic Plan Anesthetic Plan: GA Disposition: Standard PACU
[2024-11-19] MEDS: cefTRIAXone sodium 2 GM VIAL IVPUSH (13:57)
--- NOTE | 2024-11-19 14:01 | MHC.CLN ---
NUTRITION NPO TODAY FOR PROCEDURE. DIET=NPO OR CLEAR LIQUIDS X 7 DAYS. PATIENT WITH RECENT CHOLECYSTECTOMY. FOLLOW FOR DIET ADVANCEMENT. CONSIDER ALTERNATE NUTRITION IF UNABLE TO MEET ESTIMATED NUTRITIONAL NEEDS VIA PO. SEE CLINICAL NUTRITION ASSESSMENT 11/19/24.
--- NOTE | 2024-11-19 14:45 | W.PM.OPN ---
Operative Note Operative Note Date of Service: 11/19/24 Narrative: Description:?Endoscopic retrograde cholangiopancreatography (ERCP) PROCEDURE:? 1/ Upper endoscopy 2/Endoscopic retrograde cholangiopancreatography with sphincterotomy, stent placement and intra op cholangiography INDICATION FOR THE PROCEDURE:?Patient with a history of bile leak seen on HIDa s/p cholecystectomy MEDICATIONS:?General anesthesia. The risks of the procedure were made aware to the patient and consisted of medication reaction, bleeding, perforation, aspiration, and post ERCP pancreatitis. DESCRIPTION OF PROCEDURE:?After informed consent and appropriate sedation, the upper endoscope was passed and no esophageal varices were seen. Erosive duodenitis noted in bulb with an ulcer about 10 mm with surrounding edema. The duodenoscope was then placed and the papilla lined up, The wire went into the CBD immediately. A cholangiogram confirmed a bile leak at the cystic duct stump. A sphincterotomy was performed and then a 10 Fr x 7 cm stent was placed with good position. the scope was withdrawn and fluid suctioned from the stomach. FINDINGS: 1. erosive duodenitis and duodenal ulcer, jeanine grade III 2. Bile leak s/p stent RECOMMENDATIONS: 1. clears today and advance diet tomorrow 2. PPI daily e.g pantoprazole 40 mg 3. check H pylori stool antigen 4. repeat ERCP in about 6-8 weeks to remove stent
[2024-11-19] MEDS: Lactated Ringers 1,000 ML 100 ML IVCONT (16:05)
[2024-11-19] MEDS: Morphine Sulfate 2 MG/ML CARTRIDGE IVPUSH ×2 (18:07→22:10)
[2024-11-20] MEDS: Melatonin 3 MG TABLET 6 MG PO ×2 (00:08→21:08)
[2024-11-20] MEDS: Morphine Sulfate 2 MG/ML CARTRIDGE IVPUSH ×3 (02:00→21:08)
[2024-11-20 04:00] VITALS: BP 131/63; PULSE 81; RESP 16; TEMP 36.5; O2SAT 94
[2024-11-20] MEDS: Lactated Ringers 1,000 ML 100 ML IVCONT ×2 (05:40→11:29)
[2024-11-20] MEDS: metroNIDAZOLE/NS 500 MG/100 ML PIGGYBACK 100 MG IV ×3 (07:17→21:47)
[2024-11-20] MEDS: 0.9 % Sodium Chloride Flush 3 ML SYRINGE IVFLUSH ×3 (07:20→21:08)
[2024-11-20 07:29] VITALS: BP 131/63; PULSE 81; O2SAT 94
[2024-11-20 07:39] VITALS: BP 146/66; PULSE 87; RESP 18; TEMP 36; O2SAT 94
[2024-11-20] MEDS: amLODIPine Besylate 10 MG TABLET PO (08:14)
[2024-11-20] MEDS: hydrALAZINE HCl 10 MG TABLET PO ×3 (08:14→21:07)
--- NOTE | 2024-11-20 08:52 | P.PNGS_ITS ---
Subjective Subjective Date of Service: 11/20/24 Interval history: Feels improved. Denies abd pain. Wants to go home. Physical Exam 2 Vital Signs: Vital Signs: Last Vital Signs Temp 96.8 F 11/20/24 07:39 Pulse 87 11/20/24 07:39 Resp 18 11/20/24 07:39 BP 146/66 H 11/20/24 07:39 Pulse Ox 94 11/20/24 07:39 O2 Del Method Room Air 11/20/24 07:39 O2 Flow Rate 2 11/17/24 14:00 BMI result Body Mass Index 29.7 Const: General: comfortable, no acute distress and alert O rientation/consciousness: patient oriented x3 Resp: Effort & Inspection: normal respiratory effort GI: Other: drain with bilious output Inspection: No distended Palpation (GI): Soft to palpation, Tenderness to palpation present (GI) (RUQ) and no guarding Skin: General skin exam: no rashes or lesions noted and no jaundice Neuro: General: patient oriented x3 and moves all extremities Objective Data Active Medications Acetaminophen (Acetaminophen 325 Mg Tablet) 650 mg PO Q6H PRN PRN Reason: Pain, Mild 1-3,fever,headache Last Admin: 11/14/24 05:01 Dose: 650 mg Documented By: MAXI Amlodipine Besylate (Amlodipine Besylate 10 Mg Tablet) 10 mg PO DAILY [facility]; Protocol Last Admin: 11/20/24 08:14 Dose: 10 mg Documented By: FAITH Apixaban (Apixaban 2.5 Mg Tablet) 2.5 mg PO BID [facility] Last Admin: 11/16/24 10:02 Dose: 2.5 mg Documented By: DOBROManju Calcium Carbonate (Calcium Carbonate 750 Mg Tab.Chew) 750 mg PO Q4H PRN PRN Reason: Heartburn Ceftriaxone Sodium (Ceftriaxone Sodium 2 Gm Vial) 2 gm IVPUSH Q24H [facility] Last Admin: 11/19/24 13:57 Dose: 2 gm Documented By: VANESSA Comments: given in OR by anesthsiologist Hydralazine HCl (Hydralazine Hcl 20 Mg/Ml Vial) 5 mg IVPUSH Q6H PRN; Protocol PRN Reason: SBP>180 Hydralazine HCl (Hydralazine Hcl 10 Mg Tablet) 10 mg PO TID [facility]; Protocol Last Admin: 11/20/24 08:14 Dose: 10 mg Documented By: FAITH Metronidazole (Flagyl) 500 mg in 100 mls @ 100 mls/hr IV Q8H [facility] Last Infusion: 11/20/24 08:29 Dose: Infused Documented By: FAITH Lactated Ringer's (Lr) 1,000 mls @ 100 mls/hr IVCONT .Q10H [facility] Last Admin: 11/20/24 05:40 Dose: 100 mls/hr Documented By: CLAUDIA Magnesium Hydroxide (Milk Of Magnesia 30 Ml Oral.Susp) 30 ml PO DAILY PRN PRN Reason: Constipation Melatonin (Melatonin 3 Mg Tablet) 6 mg PO BEDTIME PRN PRN Reason: Insomnia Last Admin: 11/20/24 00:08 Dose: 6 mg Documented By: CLAUDIA Morphine Sulfate (Morphine Sulfate 2 Mg/Ml Cartridge) 2 mg IVPUSH Q4H PRN; Protocol PRN Reason: Pain, Severe (Pain Scale 7-10) Last Admin: 11/20/24 02:00 Dose: 2 mg Documented By: CLAUDIA Naloxone HCl (Naloxone Hcl 0.4 Mg/Ml Vial) 0.04 mg IVPUSH Q5M PRN PRN Reason: Excessive sedation or RR < 8 Ondansetron HCl (Ondansetron Hcl 4 Mg/2 Ml Vial) 4 mg IVPUSH Q8H PRN PRN Reason: Nausea and Vomiting Sodium Chloride (0.9 % Sodium Chloride Flush 3 Ml Syringe) 3 ml IVFLUSH QSHIFT [facility] Last Admin: 11/20/24 07:20 Dose: 3 ml Documented By: FAITH Labs 11/17/24 05:50 11/17/24 05:50 Labs: Laboratory Results - last 24 hr 11/19/24 12:28 POC Glucose 118 H Procedures Date of Service Date of Service: 11/20/24 Progress Note: A&P Assessment and plan (1) Bile leak: Status: Acute (2) Abdominal fluid collection: Status: Acute Plan S/p ERCP with stent placement yesterday for bile leak. RUQ remains tender, drainage remains bilious and moderate. Can advance to solid diet, trend drain output. Patient comfortable with plan. Time Spent With Patient Time: Total time managing care of this patient today ____ minutes. Quality Stroke Does the patient have a stroke diagnosis?: No VTE Prior VTE?: No VTE Risk Level:: Medical - moderate - high VTE Device Contraindication: Treatment Not Indicated VTE Drug Contraindication: N/A - Med Ordered
[2024-11-20 08:59] LABS: Hematocrit 37.8 % (42.0-52.0); Mean Corpuscular HGB Conc 34.4 g/dl (31.0-36.0); Mean Corpuscular Hemoglobin 28.6 pg (27.0-33.0); Mean Corpuscular Volume 83.1 fL (80.0-98.0); Platelet Count 433 X10*3/uL (160-400); Red Blood Count 4.55 X10*6/uL (4.60-5.80); Red Cell Distribution Width 15.3 % (11.0-16.0); White Blood Count 13.7 X10*3/uL (4.8-10.8)
[2024-11-20 09:12] LABS: Alanine Aminotransferase 18 U/L (0-40); Albumin Level 2.4 g/dL (3.5-5.0); Alkaline Phosphatase 583 U/L (39-117); Anion Gap 16 (12-20); Aspartate Amino Transferase 34 U/L (5-37); Bilirubin Direct 0.6 mg/dL (0.0-0.5); Bilirubin Total 0.8 mg/dL (0.0-1.0); Blood Urea Nitrogen 89 mg/dL (9-16); Calcium 8.4 mg/dL (8.4-10.2); Carbon Dioxide 19 mmol/L (22-29); Chloride 104 mmol/L (96-108); Creatinine Clr Calc Pharmacy 26.3; Estimated Glomerular Filt Rate 24; Glucose Random 115 mg/dL (60-115); Potassium 3.5 mmol/L (3.3-5.1); Sodium 135 mmol/L (135-145); Total Protein 6.3 g/dL (6.5-8.0)
--- NOTE | 2024-11-20 09:14 | HO.POSTANES ---
Post Anesthesia Evaluation Post Anesthesia Evaluation Date of Service: 11/20/24 Vital Signs: Vital Signs Temp Pulse Resp BP Pulse Ox O2 Del Method 11/20/24 07:39 96.8 F 87 18 146/66 H 94 Room Air 11/20/24 07:29 81 131/63 94 11/20/24 04:00 97.7 F 81 16 131/63 94 Room Air Anesthesia: General Mental Status: Awake Pain Control: Satisfactory Nausea/Vomiting: None Hydration: Adequate Anesthesia-Related Issues: No Anes. Related Issues
--- NOTE | 2024-11-20 11:36 | MHC.CM.PN ---
Addendum entered by Dana Barbosa RN 11/20/24 12:27: Patient completed HCP naming his daughter Esha as HCA. Original Note: PT recommending STR. Patient declined. Prefers home w/ [facility] services. Reported that his son and daughter can assist as needed. Requested this CM call son/daughter to discuss. CM spoke w/ daughter Esha who agreed to assist and requested [facility] referral. Reported she has been trying to reach patient's PCP to request a [facility]. Referral sent via [facility] to [facility]. She understands this may not be in place prior to dc. LM for son, Javy @ [phone].
[2024-11-20] MEDS: cefTRIAXone sodium 2 GM VIAL IVPUSH (12:15)
--- NOTE | 2024-11-20 15:21 | P.PNIM_ITS ---
Subjective Subjective Date of Service: 11/20/24 Interval History: seen and examined this morning follow up for abdominal pain, found to have bile leak s/p ERCP with stent placement abdominal pain improving Review of Systems Review of Systems: Yes all other systems are reviewed and are negative Constitutional Constitutional: Denies chills and Denies fever(s) Physical Exam 2 Vital Signs: Vital Signs: Last Vital Signs Temp 96.8 F 11/20/24 07:39 Pulse 87 11/20/24 07:39 Resp 18 11/20/24 07:39 BP 146/66 H 11/20/24 07:39 Pulse Ox 94 11/20/24 07:39 O2 Del Method Room Air 11/20/24 07:39 O2 Flow Rate 2 11/17/24 14:00 BMI result Body Mass Index 29.7 Const: General: cooperative, comfortable, alert and awake Nutritional Appearance: average body habitus Orientation/consciousness: patient oriented x3 Resp: Other: dim right base; otherwise clear Effort & Inspection: normal respiratory effort, able to speak in complete sentences, no respiratory distress and no use of accessory muscles Cardio: Rate: regular rate GI: Other: drain with bilious drainage; abdominal tenderness improved Inspection: No distended Palpation (GI): Soft to palpation and nontender Neuro: Other: grossly nonfocal General: patient oriented x3, moves all extremities and CN's II-XI intact bilaterally Extrem: General: Yes no pedal edema Objective Data Active Medications Acetaminophen (Acetaminophen 325 Mg Tablet) 650 mg PO Q6H PRN PRN Reason: Pain, Mild 1-3,fever,headache Last Admin: 11/14/24 05:01 Dose: 650 mg Documented By: MAXI Amlodipine Besylate (Amlodipine Besylate 10 Mg Tablet) 10 mg PO DAILY [facility]; Protocol Last Admin: 11/20/24 08:14 Dose: 10 mg Documented By: FAITH Apixaban (Apixaban 2.5 Mg Tablet) 2.5 mg PO BID [facility] Last Admin: 11/16/24 10:02 Dose: 2.5 mg Documented By: BERENICE Calcium Carbonate (Calcium Carbonate 750 Mg Tab.Chew) 750 mg PO Q4H PRN PRN Reason: Heartburn Ceftriaxone Sodium (Ceftriaxone Sodium 2 Gm Vial) 2 gm IVPUSH Q24H [facility] Last Admin: 11/20/24 12:15 Dose: 2 gm Documented By: FAITH Hydralazine HCl (Hydralazine Hcl 20 Mg/Ml Vial) 5 mg IVPUSH Q6H PRN; Protocol PRN Reason: SBP>180 Hydralazine HCl (Hydralazine Hcl 10 Mg Tablet) 10 mg PO TID [facility]; Protocol Last Admin: 11/20/24 08:14 Dose: 10 mg Documented By: FAITH Metronidazole (Flagyl) 500 mg in 100 mls @ 100 mls/hr IV Q8H [facility] Last Infusion: 11/20/24 15:16 Dose: Infused Documented By: FAITH Lactated Ringer's (Lr) 1,000 mls @ 100 mls/hr IVCONT .Q10H [facility] Last Admin: 11/20/24 11:29 Dose: 100 mls/hr Documented By: FAITH Magnesium Hydroxide (Milk Of Magnesia 30 Ml Oral.Susp) 30 ml PO DAILY PRN PRN Reason: Constipation Melatonin (Melatonin 3 Mg Tablet) 6 mg PO BEDTIME PRN PRN Reason: Insomnia Last Admin: 11/20/24 00:08 Dose: 6 mg Documented By: CLAUDIA Morphine Sulfate (Morphine Sulfate 2 Mg/Ml Cartridge) 2 mg IVPUSH Q4H PRN; Protocol PRN Reason: Pain, Severe (Pain Scale 7-10) Last Admin: 11/20/24 13:20 Dose: 2 mg Documented By: FAITH Naloxone HCl (Naloxone Hcl 0.4 Mg/Ml Vial) 0.04 mg IVPUSH Q5M PRN PRN Reason: Excessive sedation or RR < 8 Ondansetron HCl (Ondansetron Hcl 4 Mg/2 Ml Vial) 4 mg IVPUSH Q8H PRN PRN Reason: Nausea and Vomiting Sodium Chloride (0.9 % Sodium Chloride Flush 3 Ml Syringe) 3 ml IVFLUSH QSHIFT [facility] Last Admin: 11/20/24 07:20 Dose: 3 ml Documented By: FAITH Labs 11/20/24 08:48 11/20/24 08:48 Labs: Laboratory Results - last 24 hr 11/20/24 08:48 MCV 83.1 MCH 28.6 MCHC 34.4 RDW 15.3 Plt Count 433 H MPV 9.0 L Absolute Nucleated RBC 0.000 Nucleated RBC % (auto) 0.0 Anion Gap 16 Estim Creat Clear Calc 26.3 Estimated GFR 24 Random Glucose 115 Calcium 8.4 Total Bilirubin 0.8 Direct Bilirubin 0.6 H AST 34 ALT 18 Alkaline Phosphatase 583 H Total Protein 6.3 L Albumin 2.4 L Assessment and Plan (1) Bile leak: Status: Acute Plan 74-year-old male with history of AFib on Eliquis, CKD 4, CHF, diabetes, anemia of chronic disease, hyperparathyroidism was admitted in October found to have acute cholecystitis status post cholecystectomy on October 22 who returned to the emergency department on November 12 and admitted with abdominal pain secondary to colitis Abdominal pain secodnary to bile leak initially thought to be due to colitis. MRCP showing Large fluid collection in the right upper quadrant; possible abscess vs hematoma cholecystectomy 10/22 Phlegmonous thick walled necrotic gallbladder with dense omental adhesions paracentesis 11/13 with no growth from fluid, fluid was not described as bilious MRCP with large fluid collection - s/p IR guided drainage 11/17 and drain placement - fluid appeared bilious at that time. HIDA done 11/17 confirmed bile leak s/p ERCP 11/19 bile leak stented, also found to have erosive duodenitis and duodenal ulcer - GI rec PPI daily, advance diet today; repeat ERCP 6-8 weeks for stent removal continue IV ceftriaxone, Flagyl fluid culture with no growth to date Eliquis held for ercp, can resume 11/21 Acute Colitis Infectious versus inflammatory no further diarrhea, stool studies cancelled Initially treated with IV Zosyn, changed to IV ceftriaxone/Flagyl due to elevated LFTs GI following blood cultures negative Transaminitis/Liver cirrhosis Alk phos persistently elevated GI consultation - paracentesis as above AST/ALT have normalized but bili/alk-phos still elevated follow LFTs Right pleural effusion denies respiratory symptoms no hypoxia KELSEY on ckd4 Likely secondary to GI losses and dehydration Creatinine has plateaued hold lisinopril Nephrology following Avoid nephrotoxins follow BMP Chronic afib eliquis on hold for ERCP - resume 11/21 Hypertension Elevated blood pressure hold lisinopril due to KELSEY continue amlodipine, hydralazine, up titrate prn Hydralazine IV for systolic blood pressure greater than 180 Hyperlipidemia Hold statin for now due to elevated LFTs DVT prophylaxis with Eliquis(on hold for ERCP) Full code Quality Stroke Does the patient have a stroke diagnosis?: No VTE Prior VTE?: No VTE Risk Level:: Medical - moderate - high VTE Device Contraindication: Treatment Not Indicated VTE Drug Contraindication: N/A - Med Ordered
[2024-11-20 15:36] VITALS: BP 128/76; PULSE 65; RESP 18; TEMP 36.1; O2SAT 93
[2024-11-20] MEDS: Acetaminophen 325 MG TABLET 650 MG PO (15:36)
--- NOTE | 2024-11-20 18:22 | PC.NURSE ---
Pt with redness to buttocks and heels, refusing goldie cream and refusing foam dressings to be placed at this time. Wound consult placed
[2024-11-20 19:44] VITALS: BP 125/63; PULSE 79; RESP 18; TEMP 36.1; O2SAT 95
--- NOTE | 2024-11-20 19:57 | P.PNNP_ITS ---
Subjective Subjective Date of Service: 11/20/24 Interval history: seen and examined this morning. Renal function better Physical Exam 2 Vital Signs: Vital Signs: Last Vital Signs Temp 97.0 F 11/20/24 19:44 Pulse 79 11/20/24 19:44 Resp 18 11/20/24 19:44 BP 125/63 11/20/24 19:44 Pulse Ox 95 11/20/24 19:44 O2 Del Method Room Air 11/20/24 19:44 O2 Flow Rate 2 11/17/24 14:00 BMI result Body Mass Index 29.7 Const: General: no acute distress Orientation/consciousness: patient oriented x3 Eyes: EOM: EOMs intact bilaterally Resp: Auscultation: diminished lung sounds Cardio: Rate: regular rate GI: Palpation (GI): Soft to palpation Neuro: General: patient oriented x3 Objective Data Labs 11/20/24 08:48 11/20/24 08:48 Labs: Laboratory Results - last 24 hr 11/20/24 08:48 WBC 13.7 H RBC 4.55 L Hgb 13.0 L Hct 37.8 L MCV 83.1 MCH 28.6 MCHC 34.4 RDW 15.3 Plt Count 433 H MPV 9.0 L Absolute Nucleated RBC 0.000 Nucleated RBC % (auto) 0.0 Sodium 135 Potassium 3.5 Chloride 104 Carbon Dioxide 19 L Anion Gap 16 BUN 89 H Creatinine 2.65 H Estim Creat Clear Calc 26.3 Estimated GFR 24 Random Glucose 115 Calcium 8.4 Total Bilirubin 0.8 Direct Bilirubin 0.6 H AST 34 ALT 18 Alkaline Phosphatase 583 H Total Protein 6.3 L Albumin 2.4 L Microbiology Microbiology Results: Microbiology 11/13/24 15:30 Paracentesis Fluid Gram Stain - Final 11/13/24 15:30 Paracentesis Fluid Anaerobic Culture - Final NO GROWTH AFTER 5 DAYS 11/13/24 15:30 Paracentesis Fluid Body Fluid Culture - Final No growth after 2 days 11/12/24 14:38 Blood - Venous Blood Culture - Final No growth after 5 days. 11/12/24 14:38 Blood - Venous Blood Culture - Final No growth after 5 days. Procedures Date of Service Date of Service: 11/20/24 Assessment & Plan Assessment and plan (1) KELSEY (acute kidney injury): Status: Acute Plan KELSEY due to compromise in renal perfusion with resultant tubular injury No reason to suspect GN/AIN. UO OK. ACEI on hold Serum creatinine better. No reason to suspect AIN/GN No indication for renal replacement. Labs AM; C/W current supportive mgt Progress Note: Quality Stroke Does the patient have a stroke diagnosis?: No
[2024-11-20 21:07] VITALS: BP 138/64
[2024-11-21 03:29] VITALS: BP 139/73; PULSE 76; RESP 18; TEMP 36.3; O2SAT 94
[2024-11-21] MEDS: metroNIDAZOLE/NS 500 MG/100 ML PIGGYBACK 100 MG IV ×3 (05:46→21:53)
[2024-11-21] MEDS: Pantoprazole Sodium 40 MG/10 ML VIAL IVPUSH (05:46)
[2024-11-21 07:34] VITALS: BP 134/73; PULSE 76; RESP 16; TEMP 36.4; O2SAT 93
[2024-11-21] MEDS: hydrALAZINE HCl 10 MG TABLET PO ×3 (08:25→21:55)
[2024-11-21] MEDS: 0.9 % Sodium Chloride Flush 3 ML SYRINGE IVFLUSH ×3 (08:26→21:57)
[2024-11-21] MEDS: amLODIPine Besylate 10 MG TABLET PO (08:26)
[2024-11-21] MEDS: oxyCODONE HCl Immed Release 5 MG TABLET PO ×3 (09:46→21:53)
[2024-11-21 10:07] LABS: Anion Gap 15 (12-20); Blood Urea Nitrogen 77 mg/dL (9-16); Calcium 8.1 mg/dL (8.4-10.2); Carbon Dioxide 19 mmol/L (22-29); Chloride 105 mmol/L (96-108); Creatinine Clr Calc Pharmacy 28.5; Estimated Glomerular Filt Rate 26; Glucose Random 124 mg/dL (60-115); Potassium 3.8 mmol/L (3.3-5.1); Sodium 135 mmol/L (135-145)
--- NOTE | 2024-11-21 10:14 | PC.NURSE ---
VIRAJ Villavicencio and VIRAJ Carter made aware at approximately 0745 pts drain noted to be kinked over on itself. Tubing straightened out, secured to gown with pin. At this time about 5ml of dark bilious/brown liquid in bag. Pt noted to have increase of drainage in bag after tubing straightened out, VIRAJ Villavicencio aware.
--- NOTE | 2024-11-21 10:20 | HO.SKINPHOTO ---
shift leader RN reported that pt has redness to heels and buttocks but is refusing turn and reposition in bed. Upon assessment pt noted to have open areas to bilateral buttocks. Heels noted to be dry, calloused, and cracked, blanchable redness noted. Triad paste applied to buttocks, waffle cushion in chair, airloss pump applied to bed, foam dressings applied to bilateral heels. Pt in chair at this time, edema noted to bilateral lower extremities, pt refusing to elevate legs. Wound care nurse consult updated. VIRAJ Villavicencio aware.
--- NOTE | 2024-11-21 10:45 | P.PNGS_ITS ---
Subjective Subjective Date of Service: 11/21/24 Interval history: Started on solid diet yesterday. Had significant output from drain yesterday, >1100 but significantly tapered off overnight. Continues to c/o RUQ pain. Physical Exam 2 Vital Signs: Vital Signs: Last Vital Signs Temp 97.6 F 11/21/24 07:34 Pulse 76 11/21/24 07:34 Resp 16 11/21/24 07:34 BP 134/73 11/21/24 07:34 Pulse Ox 93 11/21/24 07:34 O2 Del Method Room Air 11/21/24 07:34 O2 Flow Rate 2 11/17/24 14:00 BMI result Body Mass Index 29.7 Const: General: comfortable, no acute distress and alert O rientation/consciousness: patient oriented x3 Resp: Effort & Inspection: normal respiratory effort GI: Other: RUQ tender drain in place continues with bilious output Palpation (GI): no guarding Skin: General skin exam: no rashes or lesions noted and no jaundice Neuro: General: patient oriented x3 and moves all extremities Objective Data Active Medications Acetaminophen (Acetaminophen 325 Mg Tablet) 650 mg PO Q6H PRN PRN Reason: Pain, Mild 1-3,fever,headache Last Admin: 11/20/24 15:36 Dose: 650 mg Documented By: FAITH Amlodipine Besylate (Amlodipine Besylate 10 Mg Tablet) 10 mg PO DAILY [facility]; Protocol Last Admin: 11/21/24 08:26 Dose: 10 mg Documented By: MEG Apixaban (Apixaban 2.5 Mg Tablet) 2.5 mg PO BID [facility] Last Admin: 11/16/24 10:02 Dose: 2.5 mg Documented By: BROManju Calcium Carbonate (Calcium Carbonate 750 Mg Tab.Chew) 750 mg PO Q4H PRN PRN Reason: Heartburn Ceftriaxone Sodium (Ceftriaxone Sodium 2 Gm Vial) 2 gm IVPUSH Q24H [facility] Last Admin: 11/20/24 12:15 Dose: 2 gm Documented By: FAITH Hydralazine HCl (Hydralazine Hcl 20 Mg/Ml Vial) 5 mg IVPUSH Q6H PRN; Protocol PRN Reason: SBP>180 Hydralazine HCl (Hydralazine Hcl 10 Mg Tablet) 10 mg PO TID [facility]; Protocol Last Admin: 11/21/24 08:25 Dose: 10 mg Documented By: MEG Metronidazole (Flagyl) 500 mg in 100 mls @ 100 mls/hr IV Q8H [facility] Last Infusion: 11/21/24 07:24 Dose: Infused Documented By: MEG Magnesium Hydroxide (Milk Of Magnesia 30 Ml Oral.Susp) 30 ml PO DAILY PRN PRN Reason: Constipation Melatonin (Melatonin 3 Mg Tablet) 6 mg PO BEDTIME PRN PRN Reason: Insomnia Last Admin: 11/20/24 21:08 Dose: 6 mg Documented By: NETTE Morphine Sulfate (Morphine Sulfate 2 Mg/Ml Cartridge) 2 mg IVPUSH Q4H PRN; Protocol PRN Reason: Pain, Severe (Pain Scale 7-10) Last Admin: 11/20/24 21:08 Dose: 2 mg Documented By: NETTE Naloxone HCl (Naloxone Hcl 0.4 Mg/Ml Vial) 0.04 mg IVPUSH Q5M PRN PRN Reason: Excessive sedation or RR < 8 Ondansetron HCl (Ondansetron Hcl 4 Mg/2 Ml Vial) 4 mg IVPUSH Q8H PRN PRN Reason: Nausea and Vomiting Oxycodone HCl (Oxycodone Hcl Immed Release 5 Mg Tablet) 5 mg PO Q6H PRN PRN Reason: Pain, Moderate(Pain Scale 4-6) Last Admin: 11/21/24 09:46 Dose: 5 mg Documented By: MEG Pantoprazole Sodium (Pantoprazole Sodium 40 Mg/10 Ml Vial) 40 mg IVPUSH DAILY@0630 [facility] Last Admin: 11/21/24 05:46 Dose: 40 mg Documented By: NETTE Sodium Chloride (0.9 % Sodium Chloride Flush 3 Ml Syringe) 3 ml IVFLUSH QSHIFT [facility] Last Admin: 11/21/24 08:26 Dose: 3 ml Documented By: MEG Labs 11/20/24 08:48 11/21/24 09:26 Labs: Laboratory Results - last 24 hr 11/21/24 09:26 Anion Gap 15 Estim Creat Clear Calc 28.5 Estimated GFR 26 Random Glucose 124 H Calcium 8.1 L Procedures Date of Service Date of Service: 11/21/24 Progress Note: A&P Assessment and plan (1) Bile leak: Status: Acute (2) Abdominal fluid collection: Status: Acute Plan S/p ERCP with stent placement 11/19/24 for bile leak. Had significant drainage from drain yesterday, remains bilious however tapered off overnight. Continue to watch drain output today. May still be from fluid collection from bile leak but concern would be continued leak if it does not continue to taper off. Time Spent With Patient Time: Total time managing care of this patient today ____ minutes. Quality Stroke Does the patient have a stroke diagnosis?: No VTE Prior VTE?: No VTE Risk Level:: Medical - moderate - high VTE Device Contraindication: Treatment Not Indicated VTE Drug Contraindication: N/A - Med Ordered
[2024-11-21] MEDS: cefTRIAXone sodium 2 GM VIAL IVPUSH (12:20)
--- NOTE | 2024-11-21 12:57 | MHC.CLN ---
F/U DIET ADVANCED TO DM 1800 KCALS ON 11/20. PO INTAKE APPEARS TO BE GOOD UPON DIET ADVANCEMENT. SKIN WITH STAGE II AREAS TO BILATERAL BUTTOCKS AND REDNESS TO HEELS. ADDING ENSURE MAX PROTEIN BID TO PROMOTE SKIN INTEGRITY. SUPPLEMENT PROVIDES 300 KCALS, 60 G PROTEIN. DIET KCALS INCREASED TO DM 2000 KCALS TO BETTER MEET ESTIMATED NEEDS. FOLLOW FOR DIET TOLERANCE, PO INTAKE AND SKIN INTEGRITY.
[2024-11-21 13:03] VITALS: BMI 29.7
--- NOTE | 2024-11-21 13:33 | P.PNNP_ITS ---
Subjective Subjective Date of Service: 11/21/24 Interval history: seen and examined this morning. Renal function better Physical Exam 2 Vital Signs: Vital Signs: Last Vital Signs Temp 97.6 F 11/21/24 07:34 Pulse 76 11/21/24 07:34 Resp 16 11/21/24 07:34 BP 134/73 11/21/24 07:34 Pulse Ox 93 11/21/24 07:34 O2 Del Method Room Air 11/21/24 07:34 O2 Flow Rate 2 11/17/24 14:00 BMI result Body Mass Index 29.7 Const: General: no acute distress Eyes: EOM: EOMs intact bilaterally Resp: Auscultation: diminished lung sounds Cardio: Rate: regular rate GI: Palpation (GI): Soft to palpation Neuro: General: moves all extremities Objective Data Labs 11/20/24 08:48 11/21/24 09:26 Labs: Laboratory Results - last 24 hr 11/21/24 09:26 Sodium 135 Potassium 3.8 Chloride 105 Carbon Dioxide 19 L Anion Gap 15 BUN 77 H Creatinine 2.45 H Estim Creat Clear Calc 28.5 Estimated GFR 26 Random Glucose 124 H Calcium 8.1 L Microbiology Microbiology Results: Microbiology 11/13/24 15:30 Paracentesis Fluid Gram Stain - Final 11/13/24 15:30 Paracentesis Fluid Anaerobic Culture - Final NO GROWTH AFTER 5 DAYS 11/13/24 15:30 Paracentesis Fluid Body Fluid Culture - Final No growth after 2 days 11/12/24 14:38 Blood - Venous Blood Culture - Final No growth after 5 days. 11/12/24 14:38 Blood - Venous Blood Culture - Final No growth after 5 days. Procedures Date of Service Date of Service: 11/21/24 Assessment & Plan Assessment and plan (1) KELSEY (acute kidney injury): Status: Acute Plan KELSEY due to compromise in renal perfusion with resultant tubular injury No reason to suspect GN/AIN. UO OK. ACEI on hold Serum creatinine better. No reason to suspect AIN/GN No indication for renal replacement. Labs AM; C/W current supportive mgt Progress Note: Quality Stroke Does the patient have a stroke diagnosis?: No
--- NOTE | 2024-11-21 13:42 | MHC.CM.PN ---
EMR REVIEWED AND PER MD ROUNDS, PT IS NOT MEDICALLY CLEARED FOR DC HOME (RUQ PAIN) [facility] UPDATED. CM WILL CONTINUE TO FOLLOW
[2024-11-21 14:11] VITALS: BP 152/69; PULSE 77; RESP 18; TEMP 36.1; O2SAT 95
--- NOTE | 2024-11-21 14:45 | P.PNIM_ITS ---
Subjective Subjective Date of Service: 11/21/24 Interval History: seen and examined this morning follow up for abdominal pain, bile leak right side abdominal pain improving; still with high output from drain not much of an appetite Constitutional Constitutional: Denies chills and Denies fever(s) Cardiovascular Cardiovascular: Denies chest pain, Denies palpitations and Denies dyspnea Respiratory Respiratory: Denies cough and Denies dyspnea Gastrointestinal Gastrointestinal: Reports abdominal pain, Denies nausea and Denies vomiting Endocrine Endocrine: Denies palpitations Physical Exam 2 Vital Signs: Vital Signs: Last Vital Signs Temp 97 F 11/21/24 14:11 Pulse 77 11/21/24 14:11 Resp 18 11/21/24 14:11 BP 152/69 H 11/21/24 14:11 Pulse Ox 95 11/21/24 14:11 O2 Del Method Room Air 11/21/24 14:11 O2 Flow Rate 2 11/17/24 14:00 BMI result Body Mass Index 29.7 Const: General: cooperative, comfortable, no acute distress, alert and awake Nutritional Appearance: average body habitus Orientation/consciousness: p atient oriented x3 Resp: Other: dim right base; otherwise clear Effort & Inspection: normal respiratory effort, able to speak in complete sentences, no respiratory distress and no use of accessory muscles Cardio: Rate: regular rate GI: Other: drain with bilious drainage; abdominal tenderness improved Inspection: No distended Palpation (GI): Soft to palpation and nontender Neuro: Other: grossly nonfocal General: patient oriented x3, moves all extremities and CN's II-XI intact bilaterally Extrem: General: Yes no pedal edema Objective Data Active Medications Acetaminophen (Acetaminophen 325 Mg Tablet) 650 mg PO Q6H PRN PRN Reason: Pain, Mild 1-3,fever,headache Last Admin: 11/20/24 15:36 Dose: 650 mg Documented By: FAITH Amlodipine Besylate (Amlodipine Besylate 10 Mg Tablet) 10 mg PO DAILY [facility]; Protocol Last Admin: 11/21/24 08:26 Dose: 10 mg Documented By: MEG Apixaban (Apixaban 2.5 Mg Tablet) 2.5 mg PO BID [facility] Last Admin: 11/16/24 10:02 Dose: 2.5 mg Documented By: BROManju Calcium Carbonate (Calcium Carbonate 750 Mg Tab.Chew) 750 mg PO Q4H PRN PRN Reason: Heartburn Ceftriaxone Sodium (Ceftriaxone Sodium 2 Gm Vial) 2 gm IVPUSH Q24H [facility] Last Admin: 11/21/24 12:20 Dose: 2 gm Documented By: MEG Hydralazine HCl (Hydralazine Hcl 20 Mg/Ml Vial) 5 mg IVPUSH Q6H PRN; Protocol PRN Reason: SBP>180 Hydralazine HCl (Hydralazine Hcl 10 Mg Tablet) 10 mg PO TID [facility]; Protocol Last Admin: 11/21/24 14:13 Dose: 10 mg Documented By: MEG Metronidazole (Flagyl) 500 mg in 100 mls @ 100 mls/hr IV Q8H [facility] Last Admin: 11/21/24 14:13 Dose: 100 mls/hr Documented By: MEG Magnesium Hydroxide (Milk Of Magnesia 30 Ml Oral.Susp) 30 ml PO DAILY PRN PRN Reason: Constipation Melatonin (Melatonin 3 Mg Tablet) 6 mg PO BEDTIME PRN PRN Reason: Insomnia Last Admin: 11/20/24 21:08 Dose: 6 mg Documented By: NETTE Morphine Sulfate (Morphine Sulfate 2 Mg/Ml Cartridge) 2 mg IVPUSH Q4H PRN; Protocol PRN Reason: Pain, Severe (Pain Scale 7-10) Last Admin: 11/19/24 18:07 Dose: 2 mg Documented By: MEG Naloxone HCl (Naloxone Hcl 0.4 Mg/Ml Vial) 0.04 mg IVPUSH Q5M PRN PRN Reason: Excessive sedation or RR < 8 Ondansetron HCl (Ondansetron Hcl 4 Mg/2 Ml Vial) 4 mg IVPUSH Q8H PRN PRN Reason: Nausea and Vomiting Oxycodone HCl (Oxycodone Hcl Immed Release 5 Mg Tablet) 5 mg PO Q6H PRN PRN Reason: Pain, Moderate(Pain Scale 4-6) Last Admin: 11/21/24 09:46 Dose: 5 mg Documented By: MEG Pantoprazole Sodium (Pantoprazole Sodium 40 Mg/10 Ml Vial) 40 mg IVPUSH DAILY@0630 [facility] Last Admin: 11/21/24 05:46 Dose: 40 mg Documented By: NETTE Sodium Chloride (0.9 % Sodium Chloride Flush 3 Ml Syringe) 3 ml IVFLUSH QSHIFT [facility] Last Admin: 11/21/24 08:26 Dose: 3 ml Documented By: MEG Labs 11/20/24 08:48 11/21/24 09:26 Labs: Laboratory Results - last 24 hr 11/21/24 09:26 Anion Gap 15 Estim Creat Clear Calc 28.5 Estimated GFR 26 Random Glucose 124 H Calcium 8.1 L Assessment and Plan (1) Bile leak: Status: Acute (2) Abdominal fluid collection: Status: Acute (3) KELSEY (acute kidney injury): Status: Acute Plan 74-year-old male with history of AFib on Eliquis, CKD 4, CHF, diabetes, anemia of chronic disease, hyperparathyroidism was admitted in October found to have acute cholecystitis status post cholecystectomy on October 22 who returned to the emergency department on November 12 and admitted with abdominal pain secondary to colitis Abdominal pain secodnary to bile leak initially thought to be due to colitis. MRCP showing Large fluid collection in the right upper quadrant; possible abscess vs hematoma cholecystectomy 10/22 Phlegmonous thick walled necrotic gallbladder with dense omental adhesions paracentesis 11/13 with no growth from fluid, fluid was not described as bilious MRCP with large fluid collection - s/p IR guided drainage 11/17 and drain placement - fluid appeared bilious at that time. HIDA done 11/17 confirmed bile leak s/p ERCP 11/19 bile leak stented, also found to have erosive duodenitis and duodenal ulcer - GI rec PPI daily, advance diet today; repeat ERCP 6-8 weeks for stent removal continue IV ceftriaxone, Flagyl fluid culture with no growth to date Eliquis held for ercp, can resume 11/21 but given ongoing high output from drain will continue to hold until determined no further intervention needed if continues to have high output from drain may need repeat imaging still requiring IV narcotics for pain control Acute Colitis Infectious versus inflammatory no further diarrhea, stool studies cancelled Initially treated with IV Zosyn, changed to IV ceftriaxone/Flagyl due to elevated LFTs GI following blood cultures negative Transaminitis/Liver cirrhosis Alk phos persistently elevated GI consultation - paracentesis as above AST/ALT have normalized but bili/alk-phos still elevated follow LFTs Right pleural effusion denies respiratory symptoms no hypoxia KELSEY on ckd4 Likely secondary to GI losses and dehydration Creatinine trending down lisinopril on hold - discuss with nephro about resuming upon discharge Nephrology following Avoid nephrotoxins follow BMP Chronic afib eliquis on hold for ERCP Hypertension Elevated blood pressure hold lisinopril due to KELSEY continue amlodipine, hydralazine, up titrate prn Hydralazine IV for systolic blood pressure greater than 180 Hyperlipidemia Hold statin for now due to elevated LFTs DVT prophylaxis with Eliquis(on hold for ERCP) Full code Quality Stroke Does the patient have a stroke diagnosis?: No VTE Prior VTE?: No VTE Risk Level:: Medical - moderate - high VTE Device Contraindication: Treatment Not Indicated VTE Drug Contraindication: N/A - Med Ordered
[2024-11-21 15:13] VITALS: BP 151/72; PULSE 82; RESP 16; TEMP 36.3; O2SAT 93
[2024-11-21 19:33] VITALS: BP 143/74; PULSE 77; RESP 18; TEMP 36.3; O2SAT 93
[2024-11-21] MEDS: Melatonin 3 MG TABLET 6 MG PO (21:53)
[2024-11-21 21:55] VITALS: BP 169/77
[2024-11-22 03:56] VITALS: BP 152/66; PULSE 70; RESP 18; TEMP 36.3; O2SAT 97
[2024-11-22] MEDS: Morphine Sulfate 2 MG/ML CARTRIDGE IVPUSH ×2 (04:22→08:47)
[2024-11-22 06:04] LABS: Alanine Aminotransferase 16 U/L (0-40); Albumin Level 2.3 g/dL (3.5-5.0); Alkaline Phosphatase 460 U/L (39-117); Anion Gap 13 (12-20); Aspartate Amino Transferase 37 U/L (5-37); Bilirubin Direct 0.4 mg/dL (0.0-0.5); Bilirubin Total 0.7 mg/dL (0.0-1.0); Blood Urea Nitrogen 71 mg/dL (9-16); Calcium 8.1 mg/dL (8.4-10.2); Carbon Dioxide 20 mmol/L (22-29); Chloride 107 mmol/L (96-108); Creatinine Clr Calc Pharmacy 28.5; Estimated Glomerular Filt Rate 26; Glucose Random 141 mg/dL (60-115); Potassium 3.6 mmol/L (3.3-5.1); Sodium 136 mmol/L (135-145); Total Protein 5.9 g/dL (6.5-8.0)
[2024-11-22] MEDS: metroNIDAZOLE/NS 500 MG/100 ML PIGGYBACK 100 MG IV (06:23)
[2024-11-22] MEDS: Pantoprazole Sodium 40 MG/10 ML VIAL IVPUSH (06:23)
[2024-11-22 07:26] VITALS: BP 151/73; PULSE 84; RESP 16; TEMP 36.4; O2SAT 94
[2024-11-22] MEDS: 0.9 % Sodium Chloride Flush 3 ML SYRINGE IVFLUSH (07:55)
[2024-11-22] MEDS: hydrALAZINE HCl 10 MG TABLET PO (08:14)
[2024-11-22] MEDS: amLODIPine Besylate 10 MG TABLET PO (08:14)
--- NOTE | 2024-11-22 10:00 | HO.PM.IMPN ---
Subjective Subjective Date of Service: 11/22/24 Interval History: seen and examined this morning follow up for abdominal pain, bile leak right side abdominal pain improving; still with high output from drain not much of an appetite Constitutional Constitutional: Denies chills and Denies fever(s) Cardiovascular Cardiovascular: Denies chest pain, Denies palpitations and Denies dyspnea Respiratory Respiratory: Denies cough and Denies dyspnea Gastrointestinal Gastrointestinal: Reports abdominal pain, Denies nausea and Denies vomiting Endocrine Endocrine: Denies palpitations Physical Exam Vital Signs: Vital Signs: Last Vital Signs Temp 97.5 F 11/22/24 07:26 Pulse 84 11/22/24 07:26 Resp 16 11/22/24 07:26 BP 151/73 H 11/22/24 07:26 Pulse Ox 94 11/22/24 07:26 O2 Del Method Room Air 11/22/24 07:26 O2 Flow Rate 2 11/17/24 14:00 BMI result Body Mass Index 29.7 Appearing in no acute distress lung sounds are clear to auscultation heart regular rate rhythm, clear S1, S2 positive bowel sounds, abdomen is soft neuro patient is alert x3, no focal deficits Bile drain attached Objective Data Active Medications Acetaminophen (Acetaminophen 325 Mg Tablet) 650 mg PO Q6H PRN PRN Reason: Pain, Mild 1-3,fever,headache Last Admin: 11/20/24 15:36 Dose: 650 mg Documented By: FAITH Amlodipine Besylate (Amlodipine Besylate 10 Mg Tablet) 10 mg PO DAILY [facility]; Protocol Last Admin: 11/22/24 08:14 Dose: 10 mg Documented By: JOVANY Apixaban (Apixaban 2.5 Mg Tablet) 2.5 mg PO BID [facility] Last Admin: 11/16/24 10:02 Dose: 2.5 mg Documented By: DOBROManju Calcium Carbonate (Calcium Carbonate 750 Mg Tab.Chew) 750 mg PO Q4H PRN PRN Reason: Heartburn Ceftriaxone Sodium (Ceftriaxone Sodium 2 Gm Vial) 2 gm IVPUSH Q24H [facility] Last Admin: 11/21/24 12:20 Dose: 2 gm Documented By: MEG Hydralazine HCl (Hydralazine Hcl 20 Mg/Ml Vial) 5 mg IVPUSH Q6H PRN; Protocol PRN Reason: SBP>180 Hydralazine HCl (Hydralazine Hcl 10 Mg Tablet) 10 mg PO TID [facility]; Protocol Last Admin: 11/22/24 08:14 Dose: 10 mg Documented By: JOVANY Metronidazole (Flagyl) 500 mg in 100 mls @ 100 mls/hr IV Q8H [facility] Last Infusion: 11/22/24 07:55 Dose: Infused Documented By: JOVANY Magnesium Hydroxide (Milk Of Magnesia 30 Ml Oral.Susp) 30 ml PO DAILY PRN PRN Reason: Constipation Melatonin (Melatonin 3 Mg Tablet) 6 mg PO BEDTIME PRN PRN Reason: Insomnia Last Admin: 11/21/24 21:53 Dose: 6 mg Documented By: NETTE Morphine Sulfate (Morphine Sulfate 2 Mg/Ml Cartridge) 2 mg IVPUSH Q4H PRN; Protocol PRN Reason: Pain, Severe (Pain Scale 7-10) Last Admin: 11/22/24 08:47 Dose: 2 mg Documented By: JOVANY Naloxone HCl (Naloxone Hcl 0.4 Mg/Ml Vial) 0.04 mg IVPUSH Q5M PRN PRN Reason: Excessive sedation or RR < 8 Ondansetron HCl (Ondansetron Hcl 4 Mg/2 Ml Vial) 4 mg IVPUSH Q8H PRN PRN Reason: Nausea and Vomiting Oxycodone HCl (Oxycodone Hcl Immed Release 5 Mg Tablet) 5 mg PO Q6H PRN PRN Reason: Pain, Moderate(Pain Scale 4-6) Last Admin: 11/21/24 21:53 Dose: 5 mg Documented By: NETTE Pantoprazole Sodium (Pantoprazole Sodium 40 Mg/10 Ml Vial) 40 mg IVPUSH DAILY@0630 [facility] Last Admin: 11/22/24 06:23 Dose: 40 mg Documented By: NETTE Sodium Chloride (0.9 % Sodium Chloride Flush 3 Ml Syringe) 3 ml IVFLUSH QSHIFT [facility] Last Admin: 11/22/24 07:55 Dose: 3 ml Documented By: JOVANY Labs 11/20/24 08:48 11/22/24 05:30 Labs: Laboratory Results - last 24 hr 11/21/24 11/22/24 09:26 05:30 Hold Purple Top SEE NOTE Anion Gap 15 13 Estim Creat Clear Calc 28.5 28.5 Estimated GFR 26 26 Random Glucose 124 H 141 H Calcium 8.1 L 8.1 L Total Bilirubin 0.7 Direct Bilirubin 0.4 AST 37 ALT 16 Alkaline Phosphatase 460 H Total Protein 5.9 L Albumin 2.3 L Assessment and Plan (1) Bile leak: Status: Acute (2) Abdominal fluid collection: Status: Acute (3) KELSEY (acute kidney injury): Status: Acute Plan 74-year-old male with history of AFib on Eliquis, CKD 4, CHF, diabetes, anemia of chronic disease, hyperparathyroidism was admitted in October found to have acute cholecystitis status post cholecystectomy on October 22 who returned to the emergency department on November 12 and admitted with abdominal pain secondary to colitis Abdominal pain secodnary to bile leak initially thought to be due to colitis. MRCP showing Large fluid collection in the right upper quadrant; possible abscess vs hematoma cholecystectomy 10/22 Phlegmonous thick walled necrotic gallbladder with dense omental adhesions paracentesis 11/13 with no growth from fluid, fluid was not described as bilious MRCP with large fluid collection - s/p IR guided drainage 11/17 and drain placement - fluid appeared bilious at that time. HIDA done 11/17 confirmed bile leak s/p ERCP 11/19 bile leak stented, also found to have erosive duodenitis and duodenal ulcer - GI rec PPI daily, advance diet today; repeat ERCP 6-8 weeks for stent removal continue IV ceftriaxone, Flagyl fluid culture with no growth to date Eliquis held for ercp, can resume 11/21 but given ongoing high output from drain will continue to hold until determined no further intervention needed if continues to have high output from drain may need repeat imaging still requiring IV narcotics for pain control Acute Colitis Infectious versus inflammatory no further diarrhea, stool studies cancelled Initially treated with IV Zosyn, changed to IV ceftriaxone/Flagyl due to elevated LFTs GI following blood cultures negative Transaminitis/Liver cirrhosis Alk phos persistently elevated GI consultation - paracentesis as above AST/ALT have normalized but bili/alk-phos still elevated follow LFTs Right pleural effusion denies respiratory symptoms no hypoxia KELSEY on ckd4 Likely secondary to GI losses and dehydration Creatinine trending down lisinopril on hold - discuss with nephro about resuming upon discharge Nephrology following Avoid nephrotoxins follow BMP Chronic afib eliquis on hold for ERCP Hypertension Elevated blood pressure hold lisinopril due to KELSEY continue amlodipine, hydralazine, up titrate prn Hydralazine IV for systolic blood pressure greater than 180 Hyperlipidemia Hold statin for now due to elevated LFTs DVT prophylaxis with Eliquis(on hold for ERCP) Full code Quality Stroke Does the patient have a stroke diagnosis?: No VTE Prior VTE?: No VTE Risk Level:: Medical - moderate - high VTE Device Contraindication: Treatment Not Indicated VTE Drug Contraindication: N/A - Med Ordered
--- NOTE | 2024-11-22 13:48 | PM.PNGS ---
Subjective Subjective Date of Service: 11/22/24 Interval history: Uneventful evening. Patient was tolerating his diet. No abdominal complaints. Markedly decreased output from abdominal drain. Physical Exam Vital Signs: Vital Signs: Last Vital Signs Temp 97.5 F 11/22/24 07:26 Pulse 84 11/22/24 07:26 Resp 16 11/22/24 07:26 BP 151/73 H 11/22/24 07:26 Pulse Ox 94 11/22/24 07:26 O2 Del Method Room Air 11/22/24 07:26 O2 Flow Rate 2 11/17/24 14:00 BMI result Body Mass Index 29.7 GI: Other: Abdomen corpulent, soft, benign. Scant biliary drainage in abdominal drain. Objective Data Active Medications Acetaminophen (Acetaminophen 325 Mg Tablet) 650 mg PO Q6H PRN PRN Reason: Pain, Mild 1-3,fever,headache Last Admin: 11/20/24 15:36 Dose: 650 mg Documented By: FAITH Amlodipine Besylate (Amlodipine Besylate 10 Mg Tablet) 10 mg PO DAILY [facility]; Protocol Last Admin: 11/22/24 08:14 Dose: 10 mg Documented By: JOVANY Apixaban (Apixaban 2.5 Mg Tablet) 2.5 mg PO BID [facility] Last Admin: 11/16/24 10:02 Dose: 2.5 mg Documented By: DOBROB Calcium Carbonate (Calcium Carbonate 750 Mg Tab.Chew) 750 mg PO Q4H PRN PRN Reason: Heartburn Ceftriaxone Sodium (Ceftriaxone Sodium 2 Gm Vial) 2 gm IVPUSH Q24H [facility] Last Admin: 11/21/24 12:20 Dose: 2 gm Documented By: MEG Hydralazine HCl (Hydralazine Hcl 20 Mg/Ml Vial) 5 mg IVPUSH Q6H PRN; Protocol PRN Reason: SBP>180 Hydralazine HCl (Hydralazine Hcl 10 Mg Tablet) 10 mg PO TID [facility]; Protocol Last Admin: 11/22/24 08:14 Dose: 10 mg Documented By: JOVANY Metronidazole (Flagyl) 500 mg in 100 mls @ 100 mls/hr IV Q8H [facility] Last Infusion: 11/22/24 07:55 Dose: Infused Documented By: JOVANY Magnesium Hydroxide (Milk Of Magnesia 30 Ml Oral.Susp) 30 ml PO DAILY PRN PRN Reason: Constipation Melatonin (Melatonin 3 Mg Tablet) 6 mg PO BEDTIME PRN PRN Reason: Insomnia Last Admin: 11/21/24 21:53 Dose: 6 mg Documented By: NETTE Morphine Sulfate (Morphine Sulfate 2 Mg/Ml Cartridge) 2 mg IVPUSH Q4H PRN; Protocol PRN Reason: Pain, Severe (Pain Scale 7-10) Last Admin: 11/22/24 08:47 Dose: 2 mg Documented By: JOVANY Naloxone HCl (Naloxone Hcl 0.4 Mg/Ml Vial) 0.04 mg IVPUSH Q5M PRN PRN Reason: Excessive sedation or RR < 8 Ondansetron HCl (Ondansetron Hcl 4 Mg/2 Ml Vial) 4 mg IVPUSH Q8H PRN PRN Reason: Nausea and Vomiting Oxycodone HCl (Oxycodone Hcl Immed Release 5 Mg Tablet) 5 mg PO Q6H PRN PRN Reason: Pain, Moderate(Pain Scale 4-6) Last Admin: 11/21/24 21:53 Dose: 5 mg Documented By: NETTE Pantoprazole Sodium (Pantoprazole Sodium 40 Mg/10 Ml Vial) 40 mg IVPUSH DAILY@0630 [facility] Last Admin: 11/22/24 06:23 Dose: 40 mg Documented By: NETTE Sodium Chloride (0.9 % Sodium Chloride Flush 3 Ml Syringe) 3 ml IVFLUSH [facility] Last Admin: 11/22/24 07:55 Dose: 3 ml Documented By: JOVANY Labs 11/20/24 08:48 11/22/24 05:30 Labs: Laboratory Results - last 24 hr 11/22/24 05:30 Hold Purple Top SEE NOTE Anion Gap 13 Estim Creat Clear Calc 28.5 Estimated GFR 26 Random Glucose 141 H Calcium 8.1 L Total Bilirubin 0.7 Direct Bilirubin 0.4 AST 37 ALT 16 Alkaline Phosphatase 460 H Total Protein 5.9 L Albumin 2.3 L Procedures Date of Service Date of Service: 11/22/24 Progress Note: A&P Assessment and plan (1) Bile leak: Status: Acute (2) Status post endoscopic retrograde cholangiopancreatography: Status: Acute Plan From surgical perspective, drain can probably be removed soon if discharge is planned. Spoke with the patient's hospitalist and because of renal issues, patient will probably spend the weekend here. We will remove drain probably in the next day or 2. Diet as tolerated. Ambulate/incentive spirometry Time Spent With Patient Time: Total time managing care of this patient today ____ minutes. Quality Stroke Does the patient have a stroke diagnosis?: No VTE Prior VTE?: No VTE Risk Level:: Medical - moderate - high VTE Device Contraindication: Treatment Not Indicated VTE Drug Contraindication: N/A - Med Ordered
--- NOTE | 2024-11-22 14:13 | MHC.CM.PN ---
Addendum entered by Saadia Becerra 11/23/24 09:36: ANDREAS RECEIVED A CALL FROM PTS DAUGHTER TODAY WHO REPORTS THE PT CALLED HER SAYING HE SHOULD HAVE WENT TO STR SHE SAYS SHE KNOWS THAT HE REFUSED STR, BUT NOW THAT HE IS HOME HE FEELS HE NEEDS IT SHE ALSO NOTES SHE AND THE PT THOUGHT HER BROTHER WOULD BE PRESENT TO ASSIST BUT HAS NOT BEEN THERE ANDREAS INFORMED HER THAT THE PT WOULD NEED TO COME TO THE ED FOR STR PLACEMENT AND THAT HE WOULD NOT BE ABLE TO GO TO STR TODAY DUE TO INSURANCE SHE WILL DISCUSS OPTIONS WITH THE PT AND IS AWARE SHE CAN CALL BACK AT ANY TIME WITH QUESTIONS Addendum entered by Saadia Becerra 11/22/24 14:47: ANDREAS SPOKE TO PTS DAUGHTER/HCP, [facility], WHO REPORTS THEY ARE UNABLE TO TRANSPORT PT BASED ON PATIENTS PT EVAL, HE APPEARS TO BE A HIGH FALL RISK AT THIS TIME AND REQUIRED ASSISTANCE TO TRANSFER LYFT TRANSPORT MAY BE UNSAFE, [facility]SP[facility] ARRANGED FOR 1529 WITH [facility] Original Note: PT TO DC HOME TODAY WITH [facility] FOR SN AND PT SERVICES VIA PRIVATE TRANSPORT
--- NOTE | 2024-11-22 14:24 | P.DS_ITS ---
DS: Providers Provider Date of Service: 11/22/24 Date of admission: 11/12/24 18:00 Date of discharge: 11/22/24 Primary care physician: Blanca Anderson MD Consults: 11/12/24 15:50 Consult to Gastroenterology Routine Consulting Provider: Duran Fernandez Reason for consultation: colitis Consult to Nephrology Routine Consulting Provider: [facility] Reason for consultation: KELSEY 11/15/24 20:52 Consult to General Surgery Routine Consulting Provider: [facility] Reason for consultation: fluid collection right upper quadrant 11/20/24 09:08 Consult to Wound Care Routine Reason for consultation: open area bilateral buttocks- refusing foam dressing DS: Diagnosis Discharge Diagnosis (1) Bile leak: Status: Acute (2) Status post endoscopic retrograde cholangiopancreatography: Status: Acute DS: Summary Hospital Course Hospital Course: 74-year-old man presented with complaints of abdominal pain that started a few days ago. He denied any nausea or vomiting. Reported nonbloody diarrhea. Denied fever, chills, sick contacts, recent travel. Patient was discharged from [facility] on 10/25/2024 and at that time had cholecystectomy. Today he has an elevated white blood cell count of 17.0, creatinine 3.36, alk phos 806, cirrhotic liver noted on abdominal CT as well as wall thickening and inflammation of the cecum and ascending colon suggestive of infectious versus inflammatory segmental colitis, elevated blood pressure reading. In the ER patient was given morphine, Zofran, IV fluids, Zosyn. He will be admitted for further management and treatment of acute colitis. 74-year-old man treated for abdominal pain secondary to bile leak. Initially thought to be due to colitis, MRCP showing large fluid collection in the right upper quadrant suggesting bile leak. Patient is status post cholecystectomy on 10/22/2024. Abdominal pain secodnary to bile leak initially thought to be due to colitis. MRCP showing Large fluid collection in the right upper quadrant; possible abscess vs hematoma cholecystectomy 10/22 Phlegmonous thick walled necrotic gallbladder with dense omental adhesions paracentesis 11/13 with no growth from fluid, fluid was not described as bilious MRCP with large fluid collection - s/p IR guided drainage 11/17 and drain kimberly cement - fluid appeared bilious at that time. HIDA done 11/17 confirmed bile leak s/p ERCP 11/19 bile leak stented, also found to have erosive duodenitis and duodenal ulcer, repeat ERCP 6-8 weeks for stent removal Treated with IV ceftriaxone, Flagyl fluid culture with no growth to date given ongoing high output from drain patient will be discharged for removal on Sunday Acute Colitis Infectious versus inflammatory Very little diarrhea Initially treated with IV Zosyn, changed to IV ceftriaxone/Flagyl due to elevated LFTs Transaminitis/Liver cirrhosis Alk phos persistently elevated AST/ALT have normalized but bili/alk-phos still elevated Right pleural effusion denies respiratory symptoms no hypoxia KELSEY on ckd4 Likely secondary to GI losses and dehydration Creatinine trended down lisinopril held , resumed on discharge Chronic afib Eliquis Hypertension Had some episodes of elevated blood pressure but lisinopril was held due to KELSEY but resumed on discharge. Continue home medications Hyperlipidemia Statin Time Attestation Discharge Coordination Time (in mins): 40 Quality: Safe Use of Opioids Does Pt have an Active Cancer Diagnosis on the Problem List?: No Quality: Stroke Does the patient have a stroke diagnosis?: No Physical Exam Vital Signs: Vital Signs: Last Vital Signs Temp 97.5 F 11/22/24 07:26 Pulse 84 11/22/24 07:26 Resp 16 11/22/24 07:26 BP 151/73 H 11/22/24 07:26 Pulse Ox 94 11/22/24 07:26 O2 Del Method Room Air 11/22/24 07:26 O2 Flow Rate 2 11/17/24 14:00 BMI result Body Mass Index 29.7 Appearing in no acute distress head is normocephalic atraumatic eyes pupils are PERRLA sclera is anicteric mouth throat mucous membranes are intact and moist neck is supple no lymphadenopathy, no JVD noted lung sounds are clear to auscultation heart regular rate rhythm, clear S1, S2 positive bowel sounds, abdomen is soft, nontender neuro patient is alert x3, no focal deficits DS: Data Data Completed and Pending Completed studies during hospitalization [Text1]: Pending at discharge 11/13/24 13:11 Cytology [PTH] Routine Procedures Excision of Duodenum, Via Natural or Artificial Opening Endoscopic, Diagnostic (12/19/22) Excision of Esophagogastric Junction, Via Natural or Artificial Opening Endoscopic, Diagnostic (12/19/22) Excision of Stomach, Pylorus, Via Natural or Artificial Opening Endoscopic, Diagnostic (12/19/22) Resection of Gallbladder, Percutaneous Endoscopic Approach (10/20/24) Transfusion of Nonautologous Red Blood Cells into Peripheral Vein, Percutaneous Approach (12/19/22) Labs on day of discharge: Laboratory Results - last 24 hr 11/22/24 05:30 Hold Purple Top SEE NOTE Sodium 136 Potassium 3.6 Chloride 107 Carbon Dioxide 20 L Anion Gap 13 BUN 71 H Creatinine 2.45 H Estim Creat Clear Calc 28.5 Estimated GFR 26 Random Glucose 141 H Calcium 8.1 L Total Bilirubin 0.7 Direct Bilirubin 0.4 AST 37 ALT 16 Alkaline Phosphatase 460 H Total Protein 5.9 L Albumin 2.3 L Discharge Plan Discharge Anticipated Discharge Date/Time: 11/22/24 13:52 Patient Disposition: Home Health Service Discharge Diagnosis: Abdominal pain Bile leak Acute colitis Transaminitis KELSEY on CKD stage 4 Erosive duodenitis Duodenal ulcer Referrals: Luis MCDONNELL [Outside] Duran Fernandez MD [Physician] - 1 Month (stent removal) Blanca Crowley MD [Primary Care Provider] - 12/03/24 9:45 am (You have a follow up appointment scheduled. If you can not make this appointment call office to reschedule.) Perfecto Smith MD [Physician] - 1 Week Discharge Medications: New hydralazine 10 mg Tablet 10 mg PO TID Qty: 90 0RF Protocol: Hold for SBP< HOLD for SBP < : 90 oxycodone 5 mg Tablet 5 mg PO Q6H PRN (Reason: Pain, Moderate(Pain Scale 4-6)) Qty: 16 0RF Rx Instructions: Partial Fill upon patient request. Continued (DME) blood sugar diagnostic Strip See Rx Instructions .ROUTE BID Qty: 50 11RF Rx Instructions: Use 1 test strip once a day atorvastatin 40 mg tablet 40 mg PO DAILY polyethylene glycol 3350 [Miralax] 17 gram/dose powder 17 g PO DAILY Qty: 510 0RF amlodipine 10 mg tablet 10 mg PO DAILY Eliquis 2.5 mg tablet 2.5 mg PO BID lisinopril 40 mg tablet 40 mg PO DAILY (DME) blood-glucose meter Misc See Rx Instructions PO BID Qty: 1 Rx Instructions: As directed (DME) lancets Misc See Rx Instructions .ROUTE BID Qty: 100 Rx Instructions: As directed ferrous sulfate 325 mg (65 mg iron) tablet 325 mg PO BID Qty: 60 4RF calcitriol 0.25 mcg capsule 0.25 mcg PO Q2D Qty: 14 6RF No Action omeprazole 40 mg capsule,delayed release(DR/EC) 40 mg PO DAILY@0630 vancomycin 125 mg Capsule 125 mg PO Q6H Qty: 33 0RF Discharge Orders: Discharge Order (Routine); Ordered 11/22/24 Ordered By: Amelia Mcgraw Diet: Advance to usual diet Activity on Discharge: As tolerated Stand Alone Forms: Patient Portal Discharge page Print Language: Portuguese Care Plan Goals: Follow up with Dr. Smith, general surgery on Sunday If drain bag is full may discard fluid in the toilet Health Concerns: Abdominal pain Bile leak Acute colitis Transaminitis KELSEY on CKD stage 4 Plan of Treatment: Follow-up with primary care provider as needed Take all medications as prescribed Assessment: See discharge summary Patient Instructions: ERCP (Endoscopic Retrograde Cholangiopancreatography) (DC) Discharge Date/Time: 11/22/24 15:00
--- NOTE | 2024-11-22 14:54 | PC.NURSE ---
Family unable to pick up man patient, EMS to transport.
--- NOTE | 2024-11-22 15:00 | PC.NURSE ---
Family here to get patient, Son to transport, brought down by WC by Hospital Staff
--- NOTE | 2024-11-23 10:05 | P.CDIM_ITS ---
PROVIDER RESPONSE TEXT: To clarify, the appropriate diagnosis supported by the clinical indicators: Yes, bile leak is related to / associated with / due to cholecystectomy surgery QUERY TEXT: PHYSICIAN'S DOCUMENTATION REQUEST Date of Query: 11/19/2024 02:43 PM EDT Patient Name: Ethan Cristina Admit Date: 11/12/2024 Dear Amelia Mcgraw CORNICE UPHOLSTERER, A review of the medical record indicates additional documentation may be needed. Please review below and update the documentation accordingly. Documentation includes the conditions of bile leak and s/p cholecystectomy 10/22/24. Clinical Indicators: admitted with right abdominal pain paracentesis done 11/13/24 HIDA scan: positive for bile leak ERCP pending Please clarify the relationship between these conditions: Yes, bile leak is related to / associated with / due to cholecystectomy surgery No, bile leak is not related to / associated with / due to cholecystectomy surgery Other (explain) Clinically unable to determine (explain) Thank you, Sadia Cruz RN Use of terms such as suspected, likely, concern for, or probable (associated with a specific diagnosi s that is being evaluated, monitored, or treated as if it exists) are acceptable and can be coded in the inpatient se tting, when documented at the time of discharge. Please use your independent medical judgment in providing your response. THIS QUERY IS PART OF THE PERMANENT MEDICAL RECORD
== END 2024-11-22 15:00 | disposition home health service (06) | DRG 393 ==
LOC: HO.ED 13:58 → HO.EDOVER 18:09 → HO.S3 11-13 07:36
PROVIDERS: Internal Medicine Gastroenterology; Physician Assistant Medical; Radiology Diagnostic Radiology; Admitting Provider Nurse Practitioner Acute Care; Emergency Provider Emergency Medicine; PCP Nurse Practitioner Family; Visit Provider Nurse Practitioner Acute Care
PROC: 0W9G3ZZ Drainage of Peritoneal Cavity, Percutaneous Approach (ICD-10-PCS; principal; 2024-11-13 15:00)
PROC: 0W9G30Z Drainage of Peritoneal Cavity with Drainage Device, Percutaneous Approach (ICD-10-PCS; principal; 2024-11-17 13:00)
PROC: 0DJ08ZZ Inspection of Upper Intestinal Tract, Via Natural or Artificial Opening Endoscopic (ICD-10-PCS; CPT 43260; principal; 2024-11-19 14:00)
DX: K91.89 Other postprocedural complications and disorders of digestive system (principal); K65.1 Peritoneal abscess; I13.0 Hypertensive heart and chronic kidney disease with heart failure and stage 1 through stage 4 chronic kidney disease, or unspecified chronic kidney disease; N17.9 Acute kidney failure, unspecified; N18.4 Chronic kidney disease, stage 4 (severe); I48.20 Chronic atrial fibrillation, unspecified; J90 Pleural effusion, not elsewhere classified; K26.9 Duodenal ulcer, unspecified as acute or chronic, without hemorrhage or perforation; K74.60 Unspecified cirrhosis of liver; I50.9 Heart failure, unspecified; E11.22 Type 2 diabetes mellitus with diabetic chronic kidney disease; D63.1 Anemia in chronic kidney disease; E86.0 Dehydration; E78.5 Hyperlipidemia, unspecified; Z87.891 Personal history of nicotine dependence; Z79.01 Long term (current) use of anticoagulants; Z79.899 Other long term (current) drug therapy
CPT/HCPCS: 36415; 49083; 74176; 74181; 75989; 76705; 78226; 80048; 80053; 80076; 82042; 82947; 83605; 83690; 84157; 85025; 85027; 85610; 87040; 87070; 87073; 87205; 88112; 88305; 89051; 97162; 99285; A9537; C1729; C1769; C2625; J0696; J1596; J1610; J1836; J2003; J2270; J2405; J2470; J2543; J2704; J3010; J7120; Q9967

== ENCOUNTER → 2024-11-12 11:24 | Outpatient (BNV) | payer OTHER, MEDICAID, SELFPAY | PROVIDERS: Emergency Provider Emergency Medicine; PCP Student in an Organized Health Care Education/Training Program; Visit Provider Radiology Diagnostic Radiology | DX: J90 Pleural effusion, not elsewhere classified (principal) | CPT/HCPCS: 74176 ==

== ENCOUNTER 2024-11-12 18:00 | Outpatient (BNV) | payer OTHER, SELFPAY | END 2024-11-17 07:00 | PROVIDERS: Admitting Provider Nurse Practitioner Acute Care; Emergency Provider Emergency Medicine; PCP Student in an Organized Health Care Education/Training Program; Visit Provider Radiology Diagnostic Radiology | DX: K91.81 Other intraoperative complications of digestive system (principal) | CPT/HCPCS: 49405; 78226 ==

== ENCOUNTER 2024-11-12 18:00 | Outpatient (BNV) | payer OTHER, SELFPAY | END 2024-11-13 15:00 | PROVIDERS: Admitting Provider Nurse Practitioner Acute Care; Emergency Provider Emergency Medicine; PCP Student in an Organized Health Care Education/Training Program; Visit Provider Radiology Diagnostic Radiology | DX: R18.8 Other ascites (principal) | CPT/HCPCS: 49083; 76705 ==

== ENCOUNTER 2024-11-12 18:00 | Outpatient (BNV) | payer OTHER, SELFPAY | END 2024-11-15 10:59 | PROVIDERS: Admitting Provider Nurse Practitioner Acute Care; Emergency Provider Emergency Medicine; PCP Student in an Organized Health Care Education/Training Program; Visit Provider Radiology Neuroradiology | DX: R18.8 Other ascites (principal); J90 Pleural effusion, not elsewhere classified; J98.11 Atelectasis | CPT/HCPCS: 74181 ==

== ENCOUNTER → 2024-11-12 18:00 | Outpatient (BNV) | payer OTHER, SELFPAY | PROVIDERS: Admitting Provider Nurse Practitioner Acute Care; Emergency Provider Emergency Medicine; PCP Student in an Organized Health Care Education/Training Program; Visit Provider Internal Medicine Nephrology | DX: N17.9 Acute kidney failure, unspecified (principal) | CPT/HCPCS: 99223; 99232 ==

== ENCOUNTER → 2024-11-12 18:00 | Outpatient (BNV) | payer OTHER, SELFPAY | PROVIDERS: Admitting Provider Nurse Practitioner Acute Care; Emergency Provider Emergency Medicine; PCP Student in an Organized Health Care Education/Training Program; Visit Provider Internal Medicine Gastroenterology | DX: K52.9 Noninfective gastroenteritis and colitis, unspecified (principal) | CPT/HCPCS: 99223 ==

== ENCOUNTER → 2024-11-12 18:00 | Outpatient (BNV) | payer OTHER, SELFPAY | PROVIDERS: Admitting Provider Nurse Practitioner Acute Care; Emergency Provider Emergency Medicine; PCP Student in an Organized Health Care Education/Training Program; Visit Provider Nurse Practitioner Acute Care | DX: N17.9 Acute kidney failure, unspecified (principal); K52.9 Noninfective gastroenteritis and colitis, unspecified | CPT/HCPCS: 99223; 99232; 99233; 99499 ==

== ENCOUNTER → 2024-11-12 18:00 | Outpatient (BNV) | payer OTHER, SELFPAY | PROVIDERS: Admitting Provider Nurse Practitioner Acute Care; Emergency Provider Emergency Medicine; PCP Student in an Organized Health Care Education/Training Program; Visit Provider Surgery | DX: R18.8 Other ascites (principal) | CPT/HCPCS: 99222 ==

== ENCOUNTER 2024-11-23 11:05 | Inpatient (IN) | payer OTHER, SELFPAY ==
--- NOTE | ~2024-11-23 | CT_ITS ---
CLINICAL HISTORY: rt sided pain after recent esau bile leak drain CT ABDOMEN AND PELVIS WITHOUT CONTRAST Comparison: CT/[place]/SR - CT ABDOMEN PELVIS WO IV CON - 11/12/24 12:03 EDT Findings: There is a small right pleural effusion. There are adjacent coalescent airspace opacities. No hydronephrosis or urolithiasis. Liver and spleen appear homogeneous. No significant peripancreatic edema. The gallbladder is surgically absent. Interval placement of a common bile duct stent. Minimal intrahepatic pneumobilia. No adrenal mass. Atherosclerotic changes. No AAA. No bowel obstruction, pneumoperitoneum, or pneumatosis. There has been interval placement of a percutaneous drainage catheter via the right lateral abdominal approach with pigtail portion in the perihepatic space. The amount of perihepatic fluid has diminished now [id number] volume compared to prior. Punctate gas locule in the perihepatic fluid is likely iatrogenic. There is mucosal and paracolic edema throughout the colon. No organized fluid collection. The appendix is not visualized. Redemonstration of multiple prostatic calcifications. Urinary bladder unremarkable. Small fat containing bilateral inguinal hernias. No acute fracture. Mild disc space narrowing in the thoracolumbar spine with large multilevel endplate osteophytes. Advanced facet degenerative changes L4-5 and L5-S1. IMPRESSION: 1. Interval decreased volume of the perihepatic fluid collection, now [id number], following placement of a percutaneous drainage catheter. 2. Interval development of a small right pleural effusion with adjacent compressive atelectasis and/or consolidation. 3. Nonspecific pancolitis. No bowel obstruction, perforation or ischemia. 4. No acute obstructive uropathy or urolithiasis. This document has been electronically signed by: Jael Teran DO on 11/23/2024 15:31:36
--- NOTE | ~2024-11-23 | XR_ITS ---
CLINICAL HISTORY: right sided pain 2 view chest x-ray Comparison: CR/SR - XR CHEST 2V - 12/19/22 12:54 EDT Findings: Three films were obtained. There is a suboptimal inspiratory effort. There is a right lower lobe pleural-parenchymal opacity. No pneumothorax. The cardiac silhouette is enlarged. There is mild vascular redistribution. No acute fracture. Redemonstration of distal right claviculectomy changes. IMPRESSION: 1. Hypoventilation. 2. Mild cardiomegaly with mild CHF. 3. Small right pleural effusion with adjacent atelectasis and/or infiltrate. This document has been electronically signed by: Jael Teran DO on 11/23/2024 15:18:39
--- NOTE | 2024-11-23 11:10 | ED_ITS ---
HPI - General Adult General Chief complaint: Nausea/Vomiting/Diarrhea Stated complaint: ABD PAIN DIARRHEA Time Seen by Provider: 11/23/24 11:10 History of Present Illness ED Provider: Freya CONWAY narrative: The patient is a 74-year-old male who was hospitalized last month for cholecystitis and a had a cholecystectomy. He was in mid to the hospital again earlier this month when he was found to have a bile leak. This was managed with placement of a drain. The patient was in the hospital for several days and discharged from the hospital yesterday on cefuroxime and metronidazole. Apparently after arriving home yesterday he developed significant diarrhea that continue this morning he also complained of some right-sided abdominal pain. Family called an ambulance and he was returned to the hospital. Patient in the emergency room is complaining of some right-sided abdominal discomfort. No definite fever. No vomiting. No blood in the stool. No chest pain or shortness of breath. For a Related Data Home Medications ?Medication ?Instructions ?Recorded ?Confirmed blood-glucose meter #1 ea 05/14/20 01/14/24 lancets #100 ea 05/14/20 01/14/24 atorvastatin 40 mg tablet 40 mg PO DAILY 12/19/22 11/23/24 apixaban 2.5 mg tablet (Eliquis) 2.5 mg PO BID 10/20/24 11/23/24 lisinopril 40 mg tablet 40 mg PO DAILY 10/20/24 11/23/24 amlodipine 10 mg tablet 10 mg PO DAILY 11/12/24 11/23/24 cefuroxime axetil 500 mg tablet 500 mg PO BID 11/23/24 11/23/24 omeprazole 40 mg capsule,delayed 40 mg PO DAILY@0630 11/23/24 11/23/24 release Previous Rx's ?Medication ?Instructions ?Recorded blood sugar diagnostic #50 ea 01/24/21 calcitriol 0.25 mcg capsule 0.25 mcg PO Q2D #14 caps 10/17/24 ferrous sulfate 325 mg (65 mg 325 mg PO BID #60 tabs 10/17/24 iron) tablet polyethylene glycol 3350 17 17 g PO DAILY #510 grams 10/26/24 gram/dose oral powder (Miralax) hydralazine 10 mg tablet 10 mg PO TID #90 tabs 11/22/24 metronidazole 500 mg tablet 500 mg PO Q8H #6 tabs 11/22/24 oxycodone 5 mg tablet 5 mg PO Q6H PRN Pain, 11/22/24 Moderate(Pain Scale 4-6) #16 tabs Allergies Allergy/AdvReac Type Severity Reaction Status Date / Time No Known Allergies Allergy Verified 11/23/24 11:17 [No Known Allergies*] Review of Systems 2 Review of Systems: Yes all other systems are reviewed and are negative [facility] Past Medical History Medical History Obesity (BMI 30.0-34.9) Cardiomyopathy CKD (chronic kidney disease) Stroke Chronic atrial fibrillation CHF (congestive heart failure) CKD (chronic kidney disease) Former smoker Depression Diabetes High cholesterol Hypertension Surgical History History of aneurysm History of shoulder surgery Family History Family History Father No problems noted. Mother Diabetes Hypertension Cancer Son No problems noted. Son No problems noted. Son No problems noted. Daughter No problems noted. Daughter No problems noted. Social History Social History Household Members: None Household Members Other:: Housing: Apartment Do you presently have visiting nurse or other home services: No Alcohol intake: never Patient Tobacco Use Status: Former Tobacco user Advance Directives: Yes Advance Directives Information Provided: Yes Advance Directives on File: No service: No Current occupational status: disabled Physical Exam ED Vital Signs: Vital Signs - 24 hr 11/23/24 11:14 11/23/24 16:52 Temperature 98.4 F 97.7 F Pulse Rate 72 78 Respiratory Rate 12 12 Blood Pressure 102/78 145/73 H Pulse Oximetry 94 94 Oxygen Delivery Method Room Air Room Air BMI result Body Mass Index 31.2 Const Other: the patient is awake and alert. He is pleasant cooperative. He seems to have some cognitive impairment but does not seem to have an altered mental status otherwise. He does not seem in overt distress. HENMT Other: Face is symmetrical. Mucous membranes moist. Eyes General: appearance normal, both eyes and all related structures Neck Neck: Yes full ROM and Yes no lymphadenopathy Resp Effort & Inspection: normal respiratory effort Auscultation: clear to auscultation bilaterally Cardio Rate: regular rate Rhythm: regular rhythm Heart sounds: S1 normal heart sound present and S2 normal heart sound present GI Other: There is some right-sided abdominal tenderness. The left side of the abdomen does not seem tender. No definite rebound or guarding. Skin Other: The skin is pale and dry Neuro Other: the patient is awake and alert. He seems fairly oriented but he seems to display some degree of cognitive dysfunction. His mood seems somewhat labile. Cranial nerves are intact and he moves his extremities symmetrically. no definite focal neurological deficits Extrem Other: 2+ pitting edema at the ankles Medications Administered Generic Name Dose Route Start Last Admin Trade Name Freq PRN Reason Stop Dose Admin Apixaban 2.5 mg 11/23/24 21:00 11/23/24 22:56 Apixaban 2.5 Mg Tablet PO 2.5 mg BID SHAUNNA Administration Metronidazole 500 mg in 100 mls @ 100 mls/hr 11/23/24 17:00 11/23/24 20:06 Flagyl IV Infused Q8H SHAUNNA Infusion Lactated Ringer's 1,000 mls @ 80 mls/hr 11/23/24 17:00 11/23/24 17:57 Lr IVCONT 80 mls/hr .[id number] SHAUNNA Administration Vancomycin HCl 125 mg 11/23/24 18:00 11/23/24 20:18 Vancomycin Hcl 125 Mg Capsule PO 125 mg Q6H SHAUNNA Administration Medical Decision Making Medical Decision Making [facility] Narrative: the patient is a 74-year-old male who was hospitalized last month for cholecystitis and a cholecystectomy. He was hospitalized earlier this month for a bile leak. He had an ERCP and he had placement of a drain for the bile leak. He was discharged from the hospital yesterday on cefuroxime and metronidazole. He returns today after developing significant diarrhea home in complaining of some right-sided abdominal pain. He is afebrile here. His white count however is 23,000. a CT scan of the abdomen and pelvis shows vaca colitis. Lactate is normal. Given the patient's recent treatment with antibiotics, his new elevation in white count, and colitis on CT scan, C diff colitis seems very likely. Stool studies were sent and he has tested positive for C diff today. He was started on oral vancomycin and will be admitted to the hospital on the hospitalist service. Dr. Smith was aware. Lab Data 11/23/24 12:53 11/23/24 12:53 Labs: Lab Results 11/23/24 11/23/24 11/23/24 Range/Units 12:53 15:41 16:05 WBC 23.6 H (4.8-10.8) X10*3/uL RBC 4.24 L (4.60-5.80) X10*6/uL Hgb 12.1 L (14.0-18.0) g/dl Hct 36.7 L (42.0-52.0) % MCV 86.6 (80.0-98.0) fL MCH 28.5 (27.0-33.0) pg MCHC 33.0 (31.0-36.0) g/dl RDW 15.7 (11.0-16.0) % Plt Count 399 (160-400) X10*3/uL MPV 9.0 L (9.4-12.4) fL Immature Gran % (Auto) 0.9 H (0.0-0.4) % Neut % (Auto) 92.3 H (45-73) % Lymph % (Auto) 2.7 L (20-40) % Garrard % (Auto) 3.7 (2-11) % Eos % (Auto) 0.1 (0-4) % Baso % (Auto) 0.3 (0-2) % Lymph # (Auto) 0.6 L (1.2-4.9) X10*3/uL Garrard # (Auto) 0.9 (0.1-1.2) X10*3/uL Eos # (Auto) 0.0 (0.0-0.4) X10*3/uL Baso # (Auto) 0.1 (0.0-0.2) X10*3/uL Abs Immat Gran (auto) 0.22 H (0.00-0.03) X10*3/uL Absolute Neuts (auto) 21.8 H (2.0-8.3) x10*3/uL Absolute Nucleated RBC 0.000 (0.0-0.012) X10*3/uL Nucleated RBC % (auto) 0.0 (0.0-0.2) /100WBC Smear Tech's Comments VERIFIED PT 15.6 H (10.9-12.4) SEC INR 1.3 H (0.9-1.1) Sodium 138 (135-145) mmol/L Potassium 4.7 D (3.3-5.1) mmol/L Chloride 108 (96-108) mmol/L Carbon Dioxide 21 L (22-29) mmol/L Anion Gap 14 (12-20) BUN 70 H (9-16) mg/dL Creatinine 2.73 H (0.5-1.4) mg/dL Estim Creat Clear Calc 26.2 Estimated GFR 23 Random Glucose 116 H (60-115) mg/dL Lactic Acid 1.3 (0.5-2.0) mmol/L Calcium 8.4 (8.4-10.2) mg/dL Magnesium 2.0 (1.6-2.6) mg/dL Total Bilirubin 0.7 (0.0-1.0) mg/dL Direct Bilirubin 0.4 (0.0-0.5) mg/dL AST 33 (5-37) U/L ALT 15 (0-40) U/L Alkaline Phosphatase 414 H (39-117) U/L C-Reactive Protein 10.77 H (< or = 0.50) mg/dL Total Protein 6.2 L (6.5-8.0) g/dL Albumin 2.4 L (3.5-5.0) g/dL Lipase 21 (8-78) U/L Urine Color Dark Yellow Urine Appearance Clear Urine pH 5.0 (5.0-9.0) Ur Specific [place] 1.020 (1.005-1.025) Urine Protein 100 (2+) H (Neg-Trace) mg/dL Urine Glucose (UA) Negative (Negative) mg/dL Urine Ketones Trace (Negative) mg/dL Urine Blood Negative (Negative) Urine Nitrite Negative (Negative) Ur Leukocyte Esterase Trace H (Negative) Urine RBC 0-2 (0-2) /HPF Urine WBC 0-5 (0-5) /HPF Ur Squamous Epith Cells 0-2 (0-2) /HPF Urine Bacteria None Seen (None Seen) Hyaline Casts 3-5 (0-2) /LPF C. difficile Tox B Gene POSITIVE A* (Negative) C. difficile Toxin A&B Positive A* (Negative) C. difficile Interpret SEE NOTE Discharge Plan Discharge Clinical Impression: Clostridium difficile colitis Patient Disposition: Admitted As Inpatient
[2024-11-23 11:14] VITALS: BP 102/78; PULSE 72; RESP 12; TEMP 36.9; O2SAT 94; BMI 31.2
--- NOTE | 2024-11-23 11:32 | PC.NURSE ---
patient recently discharged yesterday from inpatient hospital stay, patient states he has right flank pain, along with abdominal pain that he describes as hard . patient describes flank pain at 9/10. patient has ERCP stent in place, dressing dry and intact., aprox 100cc bile in bag. patient states that he has been having diarrhea all morning.
--- NOTE | 2024-11-23 11:46 | ECG_ITS ---
Test Reason : ABD PAIN Blood Pressure : */* mmHG Vent. Rate : 87 BPM Atrial Rate : * BPM P-R Int : * ms QRS Dur : 94 ms QT Int : 386 ms P-R-T Axes : * 17 174 degrees QTcB Int : [address] & T wave abnormality, consider inferolateral ischemia Abnormal ECG When compared with ECG of 20-Oct-2024 11:20, No significant change was found Referred By: Eduardo Pillai Electronically Signed By: NICOLA DIALLO MD
[2024-11-23 13:00] LABS: Appearance Urine Clear; Color Urine Dark Yellow; Glucose Urine UA Negative (Negative); Leukocyte Esterase Urine Trace (Negative); Nitrite Urine Negative (Negative); UMIC TRIGGER UACC YES; Urine Blood Negative (Negative); Urine Ketones Trace mg/dL (Negative); Urine Protein 100 (2+) mg/dL (Neg-Trace)
[2024-11-23 13:01] LABS: Basophils Absolute Auto 0.1 X10*3/uL (0.0-0.2); Basophils Percent Auto 0.3 % (0-2); Eosinophils Percent Auto 0.1 % (0-4); Hematocrit 36.7 % (42.0-52.0); Hemoglobin 12.1 g/dl (14.0-18.0); Imm Gran Abs Auto 0.22 X10*3/uL (0.00-0.03); Imm Gran Pct Auto 0.9 % (0.0-0.4); Lymphocytes Absolute Auto 0.6 X10*3/uL (1.2-4.9); Lymphocytes Percent Auto 2.7 % (20-40); MANUAL DIFF FLAG SCAN; Mean Corpuscular Hemoglobin 28.5 pg (27.0-33.0); Mean Corpuscular Volume 86.6 fL (80.0-98.0); Monocytes Absolute Auto 0.9 X10*3/uL (0.1-1.2); Monocytes Percent Auto 3.7 % (2-11); Neutrophils Absolute Auto 21.8 x10*3/uL (2.0-8.3); Neutrophils Percent Auto 92.3 % (45-73); Platelet Count 399 X10*3/uL (160-400); Red Blood Count 4.24 X10*6/uL (4.60-5.80); Red Cell Distribution Width 15.7 % (11.0-16.0); SCAN SMEAR FLAG 1; White Blood Count 23.6 X10*3/uL (4.8-10.8)
[2024-11-23 13:04] LABS: INTERNATIONAL NORM RATIO 1.3 (0.9-1.1); Prothrombin Time 15.6 SEC (10.9-12.4)
[2024-11-23 13:12] LABS: Bacteria Urine None Seen (None Seen); RBC Urine 0-2 /HPF (0-2); Squamous Epithelial Cell Urine 0-2 /HPF (0-2); WBC Urine 0-5 /HPF (0-5)
[2024-11-23 13:17] LABS: Alanine Aminotransferase 15 U/L (0-40); Albumin Level 2.4 g/dL (3.5-5.0); Alkaline Phosphatase 414 U/L (39-117); Anion Gap 14 (12-20); Aspartate Amino Transferase 33 U/L (5-37); Bilirubin Direct 0.4 mg/dL (0.0-0.5); Bilirubin Total 0.7 mg/dL (0.0-1.0); Blood Urea Nitrogen 70 mg/dL (9-16); C Reactive Protein 10.77 mg/dL (< or = 0.50); Calcium 8.4 mg/dL (8.4-10.2); Carbon Dioxide 21 mmol/L (22-29); Chloride 108 mmol/L (96-108); Creatinine Clr Calc Pharmacy 26.2; Estimated Glomerular Filt Rate 23; Glucose Random 116 mg/dL (60-115); Lipase 21 U/L (8-78); Potassium 4.7 mmol/L (3.3-5.1); Sodium 138 mmol/L (135-145); Total Protein 6.2 g/dL (6.5-8.0)
[2024-11-23 13:20] LABS: SLIDE REVIEW VERIFIED
--- NOTE | 2024-11-23 14:28 | PC.NURSE ---
patient daughter at bedside, states he was discharged yesterday and patient refused STR. daughter states she thought brother would be more involve din patient care, today went to visit patient and diarrhea and house a mess. patient daughter requesting case management involvement at [facility] for STR, states her mom is full care at home due to dementia and can not do both of them at the moment.
[2024-11-23 16:06] LABS: Lactic Acid 1.3 mmol/L (0.5-2.0)
[2024-11-23 16:52] VITALS: BP 145/73; PULSE 78; RESP 12; TEMP 36.5; O2SAT 94
--- NOTE | 2024-11-23 16:56 | P.HPHOSP_ITS ---
History of Present Illness Date of Service: 11/23/24 Chief Complaint: Diarrhea 74M PMH CKD 4, chronic AFib on Eliquis, HFpEF, recently discharged day prior to presentation after hospitalization for bile leak status post cholecystectomy 10/22/24 with large fluid collection, underwent drainage and improved discharged home on Ceftin and Flagyl. At home patient began to have watery diarrhea with abdominal cramping, no blood no fevers, minimal pain. In ED white count elevated 23,000, CT abdomen showed decreased size and fluid collection, pancolitis. Stool sample sent and pending. Review of Systems 2 Review of Systems: Yes all other systems are reviewed and are negative [facility] Medical History Obesity (BMI 30.0-34.9) Cardiomyopathy CKD (chronic kidney disease) Stroke Chronic atrial fibrillation CHF (congestive heart failure) CKD (chronic kidney disease) Former smoker Depression Diabetes High cholesterol Hypertension Family History Father No problems noted. Mother Diabetes Hypertension Cancer Son No problems noted. Son No problems noted. Son No problems noted. Daughter No problems noted. Daughter No problems noted. Surgical History History of aneurysm History of shoulder surgery Social History Household Members: None Household Members Other:: Housing: Apartment Do you presently have visiting nurse or other home services: No Alcohol intake: never Patient Tobacco Use Status: Former Tobacco user Advance Directives: Yes Advance Directives Information Provided: Yes Advance Directives on File: No service: No Current occupational status: disabled Meds Allergies Allergy/AdvReac Type Severity Reaction Status Date / Time No Known Allergies Allergy Verified 11/23/24 11:17 [No Known Allergies*] Home Medications ?Medication ?Instructions ?Recorded ?Confirmed ?Last Taken ?Type blood-glucose meter #1 ea 05/14/20 01/14/24 Unknown History lancets #100 ea 05/14/20 01/14/24 Unknown History atorvastatin 40 mg tablet 40 mg PO DAILY 12/19/22 11/12/24 11/11/24 History apixaban 2.5 mg tablet (Eliquis) 2.5 mg PO BID 10/20/24 11/12/24 11/11/24 History lisinopril 40 mg tablet 40 mg PO DAILY 10/20/24 11/12/24 11/11/24 History amlodipine 10 mg tablet 10 mg PO QAM 11/12/24 11/12/24 Unknown History Physical Exam 2 Vital Signs and Narrative: Vital Signs: Last Vital Signs Temp 97.7 F 11/23/24 16:52 Pulse 78 11/23/24 16:52 Resp 12 11/23/24 16:52 BP 145/73 H 11/23/24 16:52 Pulse Ox 94 11/23/24 16:52 O2 Del Method Room Air 11/23/24 16:52 BMI result Body Mass Index 31.2 General: AO X 3, no acute distress Resp: CTA bilateral, no accessory muscles used CVS: S1,S2,RRR GI: soft, non tender, non distended Neuro: motor grossly intact, alert Psych: appropriate affect, appropriate insight Drain in place Results Labs 11/23/24 12:53 11/23/24 12:53 Labs: Laboratory Results - last 24 hr 11/23/24 11/23/24 12:53 15:41 MCV 86.6 MCH 28.5 MCHC 33.0 RDW 15.7 Plt Count 399 MPV 9.0 L Immature Gran % (Auto) 0.9 H Neut % (Auto) 92.3 H Lymph % (Auto) 2.7 L [place] % (Auto) 3.7 Eos % (Auto) 0.1 Baso % (Auto) 0.3 Lymph # (Auto) 0.6 L [place] # (Auto) 0.9 Eos # (Auto) 0.0 Baso # (Auto) 0.1 Abs Immat Gran (auto) 0.22 H Absolute Neuts (auto) 21.8 H Absolute Nucleated RBC 0.000 Nucleated RBC % (auto) 0.0 Smear Tech's Comments VERIFIED PT 15.6 H INR 1.3 H Anion Gap 14 Estim Creat Clear Calc 26.2 Estimated GFR 23 Random Glucose 116 H Lactic Acid 1.3 Calcium 8.4 Magnesium 2.0 Total Bilirubin 0.7 Direct Bilirubin 0.4 AST 33 ALT 15 Alkaline Phosphatase 414 H C-Reactive Protein 10.77 H Total Protein 6.2 L Albumin 2.4 L Lipase 21 Urine Color Dark Yellow Urine Appearance Clear Urine pH 5.0 Ur Specific [place] 1.020 Urine Protein 100 (2+) H Urine Glucose (UA) Negative Urine Ketones Trace Urine Blood Negative Urine Nitrite Negative Ur Leukocyte Esterase Trace H Urine RBC 0-2 Urine WBC 0-5 Ur Squamous Epith Cells 0-2 Urine Bacteria None Seen Hyaline Casts 3-5 Assessment and Plan (1) CKD (chronic kidney disease) stage 4, GFR 15-29 ml/min: Status: Acute Plan 74M PMH CKD 4, chronic AFib on Eliquis, HFpEF, recent bile leak presented with diarrhea Severe antibiotic associated diarrhea with pancolitis Concern for C diff Start p.o. vancomycin, follow-up PCR, continue Rocephin and bladder IV hydration Recent bile leak Continue ceftriaxone and Flagyl Chronic AFib Continue Eliquis CKD 4 Creatinine slightly above baseline, monitor HFpEF Monitor closely while hydrating DVT prophylaxis with Eliquis Full code Given patient's elevated white count comorbidities and frailty expected require at least 2 midnights inpatient Quality Stroke Does the patient have a stroke diagnosis?: No VTE Prior VTE?: No VTE Risk Level:: Medical - moderate - high VTE Device Contraindication: Treatment Not Indicated VTE Drug Contraindication: N/A - Med Ordered
[2024-11-23] MEDS: Lactated Ringers 1,000 ML 80 ML IVCONT (17:57)
[2024-11-23 18:03] LABS: CDIFF Internal ctrl Dots and bkg OK (V); CDiff Toxin Positive (Negative)
[2024-11-23 18:07] LABS: CDiff Gene PCR POSITIVE (Negative)
[2024-11-23] MEDS: metroNIDAZOLE/NS 500 MG/100 ML PIGGYBACK 100 MG IV (18:08)
--- NOTE | 2024-11-23 18:20 | PHA.MEDREC ---
Pharmacy Consult ? Medication Reconciliation Pharmacy has completed the medication reconciliation. Patient discharged from this facility 24 hours ago. Used discharge summary to complete med rec.
[2024-11-23 20:00] VITALS: BP 150/67; PULSE 85; RESP 20; TEMP 36.7
[2024-11-23] MEDS: vancomycin HCL 125 MG CAPSULE PO (20:18)
[2024-11-23] MEDS: Apixaban 2.5 MG TABLET PO (22:56)
--- NOTE | 2024-11-23 23:12 | PC.NURSE ---
pt incontinent stool. small skin tear to buttocks barrier cream applied.
[2024-11-24] VITALS: BP 178/76; PULSE 85; RESP 18; TEMP 36.6; O2SAT 95
[2024-11-24] MEDS: vancomycin HCL 125 MG CAPSULE PO ×4 (00:45→16:49)
[2024-11-24] MEDS: metroNIDAZOLE/NS 500 MG/100 ML PIGGYBACK 100 MG IV ×2 (01:51→08:17)
[2024-11-24 02:07] LABS: Glucose, Whole Blood 94 mg/dL (60-115)
[2024-11-24 02:09] VITALS: BP 149/73; PULSE 95; RESP 18; TEMP 37; O2SAT 93
[2024-11-24 06:08] LABS: Hematocrit 35.8 % (42.0-52.0); Hemoglobin 11.9 g/dl (14.0-18.0); Mean Corpuscular HGB Conc 33.2 g/dl (31.0-36.0); Mean Corpuscular Hemoglobin 28.4 pg (27.0-33.0); Mean Corpuscular Volume 85.4 fL (80.0-98.0); Mean Platelet Volume 8.9 fL (9.4-12.4); Platelet Count 356 X10*3/uL (160-400); Red Blood Count 4.19 X10*6/uL (4.60-5.80); Red Cell Distribution Width 15.9 % (11.0-16.0); White Blood Count 20.4 X10*3/uL (4.8-10.8)
[2024-11-24 06:51] LABS: Alanine Aminotransferase 10 U/L (0-40); Albumin Level 2.2 g/dL (3.5-5.0); Alkaline Phosphatase 368 U/L (39-117); Aspartate Amino Transferase 33 U/L (5-37); Bilirubin Direct 0.5 mg/dL (0.0-0.5); Bilirubin Total 0.6 mg/dL (0.0-1.0); Blood Urea Nitrogen 56 mg/dL (9-16); Calcium 8.3 mg/dL (8.4-10.2); Estimated Glomerular Filt Rate 31; Glucose Random 93 mg/dL (60-115); Magnesium 1.9 mg/dL (1.6-2.6); Total Protein 5.7 g/dL (6.5-8.0)
--- NOTE | 2024-11-24 06:59 | PC.NURSE ---
Skin consult placed. ED RN noted open area to buttock, however I have not seen, as patient refused to roll even with assistance as he felt to weak and sick. Next RN Adamaris made aware in report.
[2024-11-24 07:05] LABS: Anion Gap 14 (12-20); Carbon Dioxide 20 mmol/L (22-29); Chloride 110 mmol/L (96-108); Potassium 3.5 mmol/L (3.3-5.1); Sodium 140 mmol/L (135-145)
[2024-11-24 07:49] VITALS: BP 162/75; PULSE 78; RESP 18; TEMP 36.5; O2SAT 93
[2024-11-24 07:58] LABS: Glucose, Whole Blood 95 mg/dL (60-115)
[2024-11-24] MEDS: cefTRIAXone sodium 1 GM VIAL IVPUSH (08:16)
[2024-11-24] MEDS: amLODIPine Besylate 10 MG TABLET PO (08:16)
[2024-11-24] MEDS: Atorvastatin Calcium 40 MG TABLET PO (08:16)
[2024-11-24] MEDS: Apixaban 2.5 MG TABLET PO ×2 (08:16→21:19)
[2024-11-24] MEDS: 0.9 % Sodium Chloride Flush 3 ML SYRINGE IVFLUSH ×2 (08:17→21:19)
[2024-11-24] MEDS: Lactated Ringers 1,000 ML 80 ML IVCONT ×2 (08:18→21:18)
--- NOTE | 2024-11-24 08:43 | HO.PM.IMPN ---
Subjective Subjective Date of Service: 11/24/24 Interval History: Follow up new Cdiff no pain or discomfort Constitutional Constitutional: Denies chills and Denies fever(s) Cardiovascular Cardiovascular: Denies chest pain, Denies palpitations and Denies dyspnea Respiratory Respiratory: Denies cough and Denies dyspnea Gastrointestinal Gastrointestinal: Reports abdominal pain, Denies nausea and Denies vomiting Endocrine Endocrine: Denies palpitations Physical Exam Vital Signs: Vital Signs: Last Vital Signs Temp 97.7 F 11/24/24 07:49 Pulse 78 11/24/24 07:49 Resp 18 11/24/24 07:49 BP 162/75 H 11/24/24 07:49 Pulse Ox 93 11/24/24 07:49 O2 Del Method Room Air 11/24/24 07:49 BMI result Body Mass Index 31.2 Appearing in no acute distress lung sounds are clear to auscultation heart regular rate rhythm, clear S1, S2 positive bowel sounds, abdomen is soft, nontender neuro patient is alert x3, no focal deficits Objective Data Active Medications Acetaminophen (Acetaminophen 325 Mg Tablet) 650 mg PO Q6H PRN PRN Reason: Pain, Mild 1-3,fever,headache Amlodipine Besylate (Amlodipine Besylate 10 Mg Tablet) 10 mg PO DAILY [facility]; Protocol Last Admin: 11/24/24 08:16 Dose: 10 mg Documented By: HILLARY Apixaban (Apixaban 2.5 Mg Tablet) 2.5 mg PO BID [facility] Last Admin: 11/24/24 08:16 Dose: 2.5 mg Documented By: HILLARY Atorvastatin Calcium (Atorvastatin Calcium 40 Mg Tablet) 40 mg PO DAILY [facility] Last Admin: 11/24/24 08:16 Dose: 40 mg Documented By: HILLARY Calcium Carbonate (Calcium Carbonate 750 Mg Tab.Chew) 750 mg PO Q4H PRN PRN Reason: Heartburn Ceftriaxone Sodium (Ceftriaxone Sodium 1 Gm Vial) 1 gm IVPUSH Q24H [facility] Last Admin: 11/24/24 08:16 Dose: 1 gm Documented By: HILLARY Dextrose (Dextrose 50 % 25 Gm/50 Ml Syringe) 25 gm IVPUSH Q15M PRN; Protocol PRN Reason: per Hypoglycemia Standing Ord. Glucose (Glucose Gel 15 Gm Gel..Gram.) 15 gm PO Q15M PRN; Protocol PRN Reason: per Hypoglycemia Standing Ord. Metronidazole (Flagyl) 500 mg in 100 mls @ 100 mls/hr IV Q8H [facility] Last Admin: 11/24/24 08:17 Dose: 100 mls/hr Documented By: HILLARY Lactated Ringer's (Lr) 1,000 mls @ 80 mls/hr IVCONT .[id number] [facility] Last Admin: 11/24/24 08:18 Dose: 80 mls/hr Documented By: HILLARY Insulin Human Lispro (Insulin Lispro 100 Unit/Ml 3 Ml Vial) 0 unit SUBCUT QIDACHS [facility]; Protocol Last Admin: 11/24/24 08:01 Dose: Not Given Documented By: HILLARY Non-Admin Reason: No Insulin Coverage Magnesium Hydroxide (Milk Of Magnesia 30 Ml Oral.Susp) 30 ml PO DAILY PRN PRN Reason: Constipation Melatonin (Melatonin 3 Mg Tablet) 6 mg PO BEDTIME PRN PRN Reason: Insomnia Oxycodone HCl (Oxycodone Hcl Immed Release 5 Mg Tablet) 5 mg PO Q6H PRN PRN Reason: Pain, Moderate(Pain Scale 4-6) Sodium Chloride (0.9 % Sodium Chloride Flush 3 Ml Syringe) 3 ml IVFLUSH QSHIFT [facility] Last Admin: 11/24/24 08:17 Dose: 3 ml Documented By: HILLARY Vancomycin HCl (Vancomycin Hcl 125 Mg Capsule) 125 mg PO Q6H [facility] Last Admin: 11/24/24 06:04 Dose: 125 mg Documented By: PASTORA Labs 11/24/24 05:29 11/24/24 05:29 Labs: Laboratory Results - last 24 hr 11/23/24 11/23/24 11/23/24 12:53 15:41 16:05 MCV 86.6 MCH 28.5 MCHC 33.0 RDW 15.7 Plt Count 399 MPV 9.0 L Immature Gran % (Auto) 0.9 H Neut % (Auto) 92.3 H Lymph % (Auto) 2.7 L [place] % (Auto) 3.7 Eos % (Auto) 0.1 Baso % (Auto) 0.3 Lymph # (Auto) 0.6 L [place] # (Auto) 0.9 Eos # (Auto) 0.0 Baso # (Auto) 0.1 Abs Immat Gran (auto) 0.22 H Absolute Neuts (auto) 21.8 H Absolute Nucleated RBC 0.000 Nucleated RBC % (auto) 0.0 Smear Tech's Comments VERIFIED PT 15.6 H INR 1.3 H Anion Gap 14 Estim Creat Clear Calc 26.2 Estimated GFR 23 POC Glucose Random Glucose 116 H Lactic Acid 1.3 Calcium 8.4 Magnesium 2.0 Total Bilirubin 0.7 Direct Bilirubin 0.4 AST 33 ALT 15 Alkaline Phosphatase 414 H C-Reactive Protein 10.77 H Total Protein 6.2 L Albumin 2.4 L Lipase 21 Urine Color Dark Yellow Urine Appearance Clear Urine pH 5.0 Ur Specific [place] 1.020 Urine Protein 100 (2+) H Urine Glucose (UA) Negative Urine Ketones Trace Urine Blood Negative Urine Nitrite Negative Ur Leukocyte Esterase Trace H Urine RBC 0-2 Urine WBC 0-5 Ur Squamous Epith Cells 0-2 Urine Bacteria None Seen Hyaline Casts 3-5 C. difficile Tox B Gene POSITIVE A* C. difficile Toxin A&B Positive A* C. difficile Interpret SEE NOTE 11/24/24 11/24/24 11/24/24 02:02 05:29 07:51 MCV 85.4 MCH 28.4 MCHC 33.2 RDW 15.9 Plt Count 356 MPV 8.9 L Immature Gran % (Auto) Neut % (Auto) Lymph % (Auto) [place] % (Auto) Eos % (Auto) Baso % (Auto) Lymph # (Auto) [place] # (Auto) Eos # (Auto) Baso # (Auto) Abs Immat Gran (auto) Absolute Neuts (auto) Absolute Nucleated RBC 0.000 Nucleated RBC % (auto) 0.0 Smear Tech's Comments PT INR Anion Gap 14 Estim Creat Clear Calc 34.0 Estimated GFR 31 POC Glucose 94 95 Random Glucose 93 Lactic Acid Calcium 8.3 L Magnesium 1.9 Total Bilirubin 0.6 Direct Bilirubin 0.5 AST 33 ALT 10 Alkaline Phosphatase 368 H C-Reactive Protein Total Protein 5.7 L Albumin 2.2 L Lipase Urine Color Urine Appearance Urine pH Ur Specific [place] Urine Protein Urine Glucose (UA) Urine Ketones Urine Blood Urine Nitrite Ur Leukocyte Esterase Urine RBC Urine WBC Ur Squamous Epith Cells Urine Bacteria Hyaline Casts C. difficile Tox B Gene C. difficile Toxin A&B C. difficile Interpret Assessment and Plan (1) Colitis: Status: Acute Plan 74M PMH CKD 4, chronic AFib on Eliquis, HFpEF, recent bile leak presented with diarrhea Severe antibiotic associated C diff diarrhea with pancolitis C diff gene and toxin positive Continue p.o. vancomycin, continue Rocephin and Flagyl IV hydration Leukocytosis Secondary to C diff No sepsis Recent bile leak Continue ceftriaxone and Flagyl General surgery consultation for removal of bile drain Chronic AFib Continue Eliquis CKD 4. Trending down Creatinine slightly above baseline possibly from GI losses HFpEF Monitor closely while hydrating DVT prophylaxis with Eliquis Full code Given patient's elevated white count comorbidities and frailty expected require at least 2 midnights inpatient Quality Stroke Does the patient have a stroke diagnosis?: No VTE Prior VTE?: No VTE Risk Level:: Medical - moderate - high VTE Device Contraindication: Treatment Not Indicated VTE Drug Contraindication: N/A - Med Ordered
--- NOTE | 2024-11-24 09:31 | MHC.CM.PN ---
PT LIVES ALONE HAD NO PREVIOUS SERVICES HAS HIS OWN [facility] HOME DC PLAN [facility] NO SERVICES
[2024-11-24 10:02] VITALS: BMI 31.2
--- NOTE | 2024-11-24 10:12 | MHC.CLN ---
NUTRITION DIET=DIABETIC 1800 KCALS. PATIENT DISCHARGED FROM [facility] [place] 11/22 AND READM 11/23. NEW DX C-DIFF. WOUNDS ID PRIOR ADM ON 11/21, STAGE II LEFT AND RIGHT BUTTOCKS. PATIENT WITH CKD STAGE 4 AND ELEVATED BUN/Cr. NO HIGH PROTEIN SUPPLEMENT AT THIS TIME DUE TO CKD4. FOLLOW FOR PO INTAKE AND SKIN INTEGRITY. SEE CLINICAL NUTRITION ASSESSMENT 11/24/24.
--- NOTE | 2024-11-24 10:26 | P.CONGS_ITS ---
History of Present Illness Consult details Consult date: 11/24/24 Requesting physician: Amelia Mcgraw Narrative: 74 year old male with PMH significant for CKD 4, chronic AFib on Eliquis, HFpEF, recently hospitalized 11/12-11/22/24 for bile leak s/p cholecystectomy 10/22/24 requiring ERCP, stent placement with associated large intraabdominal fluid collection requiring IR drainage. He was feeling improved and discharged to home with the drain in place. At home, patient began to have watery diarrhea with abdominal cramping and therefore returned to the ED where he was found to have a leukocytosis of 23. CT abdomen showed decreased size fluid collection, pancolitis. C diff positive. He is on IV rocephin, flagyl for ?fluid collection vs colitis from past admission. Culture of fluid collection was negative on last admission. On oral vanco for C diff. PMFSH Past Medical History Medical History Obesity (BMI 30.0-34.9) Cardiomyopathy CKD (chronic kidney disease) Stroke Chronic atrial fibrillation CHF (congestive heart failure) CKD (chronic kidney disease) Former smoker Depression Diabetes High cholesterol Hypertension Family History Family History Father No problems noted. Mother Diabetes Hypertension Cancer Son No problems noted. Son No problems noted. Son No problems noted. Daughter No problems noted. Daughter No problems noted. Surgical History Surgical History History of aneurysm History of shoulder surgery Social History Social History Household Members: Significant Other and Family Household Members Other:: Housing: House Do you presently have visiting nurse or other home services: Yes Alcohol intake: never Patient Tobacco Use Status: Former Tobacco user Use of substances other than those prescribed or required for medical reasons: Yes Substance Use Type: Marijuana Substance Use Frequency: Occasionally Currently Displaying Signs/Symptoms of Drug Intoxication Withdrawal: No Have you been hit, kicked, punched, or otherwise hurt by someone within the past year? If so, by whom?: No Do you feel safe in your current relationship?: No Is there a partner from a previous relationship who is making you feel unsafe now?: No Are you made to feel afraid or neglected: No Advance Directives: No Advance Directives Information Provided: No Advance Directives on File: No Do you have a plan to hurt others: No Plan Recently lost weight without trying: No How much weight loss: Not applicable Eating poorly because of decreased appetite: Yes Nutrition screen score: 1 Nutrition Risks: No Nutritional Risk Poor oral hygiene: No service: No Current occupational status: disabled Meds Allergies Allergy/AdvReac Type Severity Reaction Status Date / Time No Known Allergies Allergy Verified 11/23/24 11:17 [No Known Allergies*] Active Medications: Current Medications Acetaminophen (Acetaminophen 325 Mg Tablet) 650 mg PO Q6H PRN PRN Reason: Pain, Mild 1-3,fever,headache Amlodipine Besylate (Amlodipine Besylate 10 Mg Tablet) 10 mg PO DAILY [facility]; Protocol Last Admin: 11/24/24 08:16 Dose: 10 mg Apixaban (Apixaban 2.5 Mg Tablet) 2.5 mg PO BID [facility] Last Admin: 11/24/24 08:16 Dose: 2.5 mg Atorvastatin Calcium (Atorvastatin Calcium 40 Mg Tablet) 40 mg PO DAILY [facility] Last Admin: 11/24/24 08:16 Dose: 40 mg Calcium Carbonate (Calcium Carbonate 750 Mg Tab.Chew) 750 mg PO Q4H PRN PRN Reason: Heartburn Ceftriaxone Sodium (Ceftriaxone Sodium 1 Gm Vial) 1 gm IVPUSH Q24H [facility] Last Admin: 11/24/24 08:16 Dose: 1 gm Dextrose (Dextrose 50 % 25 Gm/50 Ml Syringe) 25 gm IVPUSH Q15M PRN; Protocol PRN Reason: per Hypoglycemia Standing Ord. Glucose (Glucose Gel 15 Gm Gel..Gram.) 15 gm PO Q15M PRN; Protocol PRN Reason: per Hypoglycemia Standing Ord. Metronidazole (Flagyl) 500 mg in 100 mls @ 100 mls/hr IV Q8H [facility] Last Infusion: 11/24/24 09:25 Dose: Infused Lactated Ringer's (Lr) 1,000 mls @ 80 mls/hr IVCONT .[id number] [facility] Last Admin: 11/24/24 08:18 Dose: 80 mls/hr Insulin Human Lispro (Insulin Lispro 100 Unit/Ml 3 Ml Vial) 0 unit SUBCUT QIDACHS [facility]; Protocol Last Admin: 11/24/24 08:01 Dose: Not Given Magnesium Hydroxide (Milk Of Magnesia 30 Ml Oral.Susp) 30 ml PO DAILY PRN PRN Reason: Constipation Melatonin (Melatonin 3 Mg Tablet) 6 mg PO BEDTIME PRN PRN Reason: Insomnia Oxycodone HCl (Oxycodone Hcl Immed Release 5 Mg Tablet) 5 mg PO Q6H PRN PRN Reason: Pain, Moderate(Pain Scale 4-6) Sodium Chloride (0.9 % Sodium Chloride Flush 3 Ml Syringe) 3 ml IVFLUSH QSHIFT [facility] Last Admin: 11/24/24 08:17 Dose: 3 ml Vancomycin HCl (Vancomycin Hcl 125 Mg Capsule) 125 mg PO Q6H [facility] Last Admin: 11/24/24 06:04 Dose: 125 mg Home Medications ?Medication ?Instructions ?Recorded ?Confirmed ?Last Taken ?Type blood-glucose meter #1 ea 05/14/20 01/14/24 Unknown History lancets #100 ea 05/14/20 01/14/24 Unknown History atorvastatin 40 mg tablet 40 mg PO DAILY 12/19/22 11/23/24 11/11/24 History apixaban 2.5 mg tablet (Eliquis) 2.5 mg PO BID 10/20/24 11/23/24 11/11/24 History lisinopril 40 mg tablet 40 mg PO DAILY 10/20/24 11/23/24 11/11/24 History amlodipine 10 mg tablet 10 mg PO DAILY 11/12/24 11/23/24 Unknown History cefuroxime axetil 500 mg tablet 500 mg PO BID 11/23/24 11/23/24 Unknown History omeprazole 40 mg capsule,delayed 40 mg PO DAILY@0630 11/23/24 11/23/24 Unknown History release Physical Exam 2 Vital Signs: Vital Signs: Last Vital Signs Temp 97.7 F 11/24/24 07:49 Pulse 78 11/24/24 07:49 Resp 18 11/24/24 07:49 BP 162/75 H 11/24/24 07:49 Pulse Ox 93 11/24/24 07:49 O2 Del Method Room Air 11/24/24 07:49 BMI result Body Mass Index 31.2 Const: General: comfortable, no acute distress and alert O rientation/consciousness: patient oriented x3 Resp: Effort & Inspection: normal respiratory effort GI: Other: gravity drainage bag with bilious output, 80cc in bag itself, some sedimental tissue blocking opening on drain Inspection: No distended Palpation (GI): Soft to palpation, Tenderness to palpation present (GI) (right sided) and no guarding Skin: General skin exam: no rashes or lesions noted and no jaundice Neuro: General: patient oriented x3 and moves all extremities Results Labs 11/24/24 05:29 11/24/24 05:29 Labs: Abnormal lab results 11/23/24 11/23/24 11/24/24 Range/Units 12:53 16:05 05:29 WBC 23.6 H 20.4 H (4.8-10.8) X10*3/uL RBC 4.24 L 4.19 L (4.60-5.80) X10*6/uL Hgb 12.1 L 11.9 L (14.0-18.0) g/dl Hct 36.7 L 35.8 L (42.0-52.0) % MPV 9.0 L 8.9 L (9.4-12.4) fL Immature Gran % (Auto) 0.9 H (0.0-0.4) % Neut % (Auto) 92.3 H (45-73) % Lymph % (Auto) 2.7 L (20-40) % Lymph # (Auto) 0.6 L (1.2-4.9) X10*3/uL Abs Immat Gran (auto) 0.22 H (0.00-0.03) X10*3/uL Absolute Neuts (auto) 21.8 H (2.0-8.3) x10*3/uL PT 15.6 H (10.9-12.4) SEC INR 1.3 H (0.9-1.1) Chloride 110 H (96-108) mmol/L Carbon Dioxide 21 L 20 L (22-29) mmol/L BUN 70 H 56 H (9-16) mg/dL Creatinine 2.73 H 2.10 H (0.5-1.4) mg/dL Random Glucose 116 H (60-115) mg/dL Calcium 8.3 L (8.4-10.2) mg/dL Alkaline Phosphatase 414 H 368 H (39-117) U/L C-Reactive Protein 10.77 H (< or = 0.50) mg/dL Total Protein 6.2 L 5.7 L (6.5-8.0) g/dL Albumin 2.4 L 2.2 L (3.5-5.0) g/dL Urine Protein 100 (2+) H (Neg-Trace) mg/dL Ur Leukocyte Esterase Trace H (Negative) C. difficile Tox B Gene POSITIVE A* (Negative) C. difficile Toxin A&B Positive A* (Negative) Short CBC 11/23/24 11/24/24 Range/Units 12:53 05:29 WBC 23.6 H 20.4 H (4.8-10.8) X10*3/uL Hgb 12.1 L 11.9 L (14.0-18.0) g/dl Hct 36.7 L 35.8 L (42.0-52.0) % Plt Count 399 356 (160-400) X10*3/uL BMP 11/23/24 11/24/24 12:53 05:29 Sodium 138 140 Potassium 4.7 D 3.5 D Chloride 108 110 H Carbon Dioxide 21 L 20 L BUN 70 H 56 H Creatinine 2.73 H 2.10 H Calcium 8.4 8.3 L Liver Function 11/23/24 11/24/24 Range/Units 12:53 05:29 Total Bilirubin 0.7 0.6 (0.0-1.0) mg/dL Direct Bilirubin 0.4 0.5 (0.0-0.5) mg/dL AST 33 33 (5-37) U/L ALT 15 10 (0-40) U/L Alkaline Phosphatase 414 H 368 H (39-117) U/L Albumin 2.4 L 2.2 L (3.5-5.0) g/dL Urine 11/23/24 Range/Units 12:53 Urine Color Dark Yellow Urine Appearance Clear Urine pH 5.0 (5.0-9.0) Ur Specific [place] 1.020 (1.005-1.025) Urine Protein 100 (2+) H (Neg-Trace) mg/dL Urine Glucose (UA) Negative (Negative) mg/dL All other labs normal. Imaging Abdomen CT scan report/results: report reviewed and image reviewed Assessment and Plan (1) Clostridium difficile colitis: Status: Acute (2) Abdominal fluid collection: Status: Acute Plan 74 year old male with PMH significant for CKD 4, chronic AFib on Eliquis, HFpEF, recently hospitalized 11/12-11/22/24 for bile leak s/p cholecystectomy 10/22/24 requiring ERCP, stent placement with associated large intraabdominal fluid collection requiring IR drainage readmitted yesterday for diarrhea and cramping found to have C diff colitis. Now on oral vanco. Abd is overall benign, some right sided tenderness. Intraabdominal fluid collection significantly improved on imaging and drain output has decreased but also appeared to be clogged on exam this am. Will trend output today, possible remove tomorrow if drainage remains low. Consider discontinuing IV rocephin/flagyl if this is for fluid collection/prior colitis as he has had 10 day IV abx course on previous admission, prior fluid cx negative for growth. Procedures Date of Service Date of Service: 11/24/24
[2024-11-24 10:52] LABS: Adenovirus F 40/41 Not Detected (Not Detect.); Astrovirus Not Detected (Not Detect.); Campylobacter Not Detected (Not Detect.); Cryptosporidium Not Detected (Not Detect.); Cyclospora cayetanensis Not Detected (Not Detect.); E. coli EAEC Not Detected (Not Detect.); E. coli EPEC Not Detected (Not Detect.); E. coli ETEC Not Detected (Not Detect.); E. coli STEC Not Detected (Not Detect.); Entamoeba histolytica Not Detected (Not Detect.); Giardia lamblia Not Detected (Not Detect.); Norovirus GI/GII Not Detected (Not Detect.); Plesiomonas shigelloides Not Detected (Not Detect.); Rotavirus A Not Detected (Not Detect.); Salmonella Not Detected (Not Detect.); Sapovirus Not Detected (Not Detect.); Shigella sp./EIEC Not Detected (Not Detect.); Vibrio Not Detected (Not Detect.); Vibrio Cholerae Not Detected (Not Detect.); Yersinia enterocolitica Not Detected (Not Detect.)
[2024-11-24 11:15] LABS: Glucose, Whole Blood 113 mg/dL (60-115)
[2024-11-24 15:57] VITALS: BP 139/66; PULSE 70; RESP 14; TEMP 36.7; O2SAT 93
[2024-11-24 16:25] LABS: Glucose, Whole Blood 129 mg/dL (60-115)
--- NOTE | 2024-11-24 17:03 | HO.WOUND ---
Wound Consult: Initial 74yr old male? admitted to [facility] [place] on 11/23/24 - See progress notes and H&P for detailed history.? Wound consult placed for buttock.? Patient agreeable to assessment and photo documentation.? Bilateral Buttock Etiology: MASD _IAD (Moisture Associated Skin Damage - Incontinence Associated Dermatitis) ??Present on Admission Wound Bed: red dark hyperpigmented tissue with scattered open areas of full thickness tissue loss Drainage / Odor: None noted Edges: ? irregular - mirrored to within the gluteal folds Georgie wound: Intact ? No Induration, Fluctuance or Warmth noted Pain: tenderness noted Goals of Treatment: ? Triad applied and recommend RYNE pump to be added to mattress Recommendations: 1. Turn and Reposition every 2 hours and as needed for patient comfort.? Use pillows or wedges to support off loading positions. 2. Off Load all bony prominences with use of pillows and heel boots if needed.? Apply Preventative foams where needed. ? 3. Monitor for incontinence and moisture control, use barrier creams when needed for prevention and treatment. 4. Provide adequate and supplemental nutrition.? 5. Orderlow air loss mattress. 6. When applicable maintain blood glucose levels per Providers order. Buttock - Off Load Pressure with Q2 hr turns and use of pillows - Cleanse with PH balance spray or wipes, pat dry. ?Apply thin layer of Triad to wound bed - only pat and dab no scrub and rub when soiling occurs. Reapply thin layer PRN after each episode of incontinence. Re-consult wound care Nurse for wound deterioration or wound changes.
--- NOTE | 2024-11-24 18:41 | PC.NURSE ---
Air loss not available at present ,W[employer] PROJECT ENGINEER Jeane aware
[2024-11-24 19:42] VITALS: BP 166/70; PULSE 82; RESP 18; TEMP 36.8; O2SAT 94
[2024-11-24 20:01] LABS: Glucose, Whole Blood 112 mg/dL (60-115)
[2024-11-24] MEDS: Melatonin 3 MG TABLET 6 MG PO (21:19)
[2024-11-24] MEDS: oxyCODONE HCl Immed Release 5 MG TABLET PO (21:25)
[2024-11-25] MEDS: vancomycin HCL 125 MG CAPSULE PO ×3 (00:27→11:32)
[2024-11-25 03:31] VITALS: BP 154/72; PULSE 76; RESP 18; TEMP 36.8; O2SAT 92
--- NOTE | 2024-11-25 05:54 | PC.NURSE ---
Pt refuses to get repositioned and only wants a pillow directly under buttocks. Pt refused to elevate legs on pillow to bring edema down. Pt resting quietly with no apparent distress at this time, respirations even and non-labored.
[2024-11-25 07:07] LABS: Glucose, Whole Blood 97 mg/dL (60-115)
[2024-11-25 07:10] VITALS: BP 163/76; PULSE 80; RESP 16; TEMP 37.2; O2SAT 92
[2024-11-25] MEDS: 0.9 % Sodium Chloride Flush 3 ML SYRINGE IVFLUSH (07:17)
[2024-11-25] MEDS: amLODIPine Besylate 10 MG TABLET PO (07:17)
[2024-11-25] MEDS: Apixaban 2.5 MG TABLET PO (07:17)
[2024-11-25] MEDS: Atorvastatin Calcium 40 MG TABLET PO (07:17)
[2024-11-25] MEDS: oxyCODONE HCl Immed Release 5 MG TABLET PO (07:27)
[2024-11-25 07:42] VITALS: O2SAT 93
[2024-11-25 08:07] VITALS: O2SAT 93
--- NOTE | 2024-11-25 09:21 | P.PNGS_ITS ---
Subjective Subjective Date of Service: 11/25/24 Interval history: Feels somewhat improved. Diarrhea and abd pain less. Tolerating solid diet. Physical Exam 2 Vital Signs: Vital Signs: Last Vital Signs Temp 98.9 F 11/25/24 07:10 Pulse 80 11/25/24 07:10 Resp 16 11/25/24 07:10 BP 163/76 H 11/25/24 07:10 Pulse Ox 93 11/25/24 08:07 O2 Del Method Room Air 11/25/24 08:07 BMI result Body Mass Index 31.2 Const: General: comfortable, no acute distress and alert O rientation/consciousness: patient oriented x3 GI: Other: right sided tenderness, mild drainage bag with scant bilious output Palpation (GI): Soft to palpation and no guarding Skin: General skin exam: no rashes or lesions noted and no jaundice Neuro: General: patient oriented x3 and moves all extremities Objective Data Active Medications Acetaminophen (Acetaminophen 325 Mg Tablet) 650 mg PO Q6H PRN PRN Reason: Pain, Mild 1-3,fever,headache Amlodipine Besylate (Amlodipine Besylate 10 Mg Tablet) 10 mg PO DAILY [facility]; Protocol Last Admin: 11/25/24 07:17 Dose: 10 mg Documented By: HILLARY Apixaban (Apixaban 2.5 Mg Tablet) 2.5 mg PO BID [facility] Last Admin: 11/25/24 07:17 Dose: 2.5 mg Documented By: HILLARY Atorvastatin Calcium (Atorvastatin Calcium 40 Mg Tablet) 40 mg PO DAILY [facility] Last Admin: 11/25/24 07:17 Dose: 40 mg Documented By: HILLARY Calcium Carbonate (Calcium Carbonate 750 Mg Tab.Chew) 750 mg PO Q4H PRN PRN Reason: Heartburn Dextrose (Dextrose 50 % 25 Gm/50 Ml Syringe) 25 gm IVPUSH Q15M PRN; Protocol PRN Reason: per Hypoglycemia Standing Ord. Glucose (Glucose Gel 15 Gm Gel..Gram.) 15 gm PO Q15M PRN; Protocol PRN Reason: per Hypoglycemia Standing Ord. Insulin Human Lispro (Insulin Lispro 100 Unit/Ml 3 Ml Vial) 0 unit SUBCUT QIDACHS [facility]; Protocol Last Admin: 11/25/24 07:12 Dose: Not Given Documented By: HILLARY Non-Admin Reason: No Insulin Coverage Magnesium Hydroxide (Milk Of Magnesia 30 Ml Oral.Susp) 30 ml PO DAILY PRN PRN Reason: Constipation Melatonin (Melatonin 3 Mg Tablet) 6 mg PO BEDTIME PRN PRN Reason: Insomnia Last Admin: 11/24/24 21:19 Dose: 6 mg Documented By: SUE Oxycodone HCl (Oxycodone Hcl Immed Release 5 Mg Tablet) 5 mg PO Q6H PRN PRN Reason: Pain, Moderate(Pain Scale 4-6) Last Admin: 11/25/24 07:27 Dose: 5 mg Documented By: HILLARY Sodium Chloride (0.9 % Sodium Chloride Flush 3 Ml Syringe) [facility] Admin: 11/25/24 07:17 Dose: 3 ml Documented By: HILLARY Vancomycin HCl (Vancomycin Hcl 125 Mg Capsule) 125 mg PO Q6H [facility] Last Admin: 11/25/24 05:41 Dose: 125 mg Documented By: SUE Labs 11/24/24 05:29 11/24/24 05:29 Labs: Laboratory Results - last 24 hr 11/23/24 11/24/24 11/24/24 16:05 11:03 16:15 Hold Purple Top POC Glucose 113 129 H Stl C. cayetanensis PCR Not Detected Stool Rotavirus A PCR Not Detected Stl Adenov F 40/41 PCR Not Detected Stool Astrovirus (PCR) Not Detected Stool Campylobacter PCR Not Detected Stool Cryptosporidium PCR Not Detected Stl Sh Tox Pr E STEC PCR Not Detected Stool E coli O157 PCR Not applicable Stl Enterotoxigenic E PCR Not Detected Stool EPEC (PCR) Not Detected Stool EAEC (PCR) Not Detected Stl E. histolytica PCR Not Detected Stool Giardia Lamblia PCR Not Detected Stl P. shigelloides PCR Not Detected Stool Salmonella PCR Not Detected Stool Sapovirus (PCR) Not Detected Stl Shigella/EIEC PCR Not Detected St Y.enterocolitica PCR Not Detected Stool Vibrio (PCR) Not Detected Stl Vibrio cholerae PCR Not Detected Stl Norovirus GI/GII PCR Not Detected 11/24/24 11/25/24 11/25/24 19:55 06:11 07:03 Hold Purple Top SEE NOTE POC Glucose 112 97 Stl C. cayetanensis PCR Stool Rotavirus A PCR Stl Adenov F 40/41 PCR Stool Astrovirus (PCR) Stool Campylobacter PCR Stool Cryptosporidium PCR Stl Sh Tox Pr E STEC PCR Stool E coli O157 PCR Stl Enterotoxigenic E PCR Stool EPEC (PCR) Stool EAEC (PCR) Stl E. histolytica PCR Stool Giardia Lamblia PCR Stl P. shigelloides PCR Stool Salmonella PCR Stool Sapovirus (PCR) Stl Shigella/EIEC PCR St Y.enterocolitica PCR Stool Vibrio (PCR) Stl Vibrio cholerae PCR Stl Norovirus GI/GII PCR Microbiology Microbiology Results: Microbiology 11/23/24 16:18 Blood Culture - Preliminary Blood - Venous No growth after 24 hours. 11/23/24 15:41 Blood Culture - Preliminary Blood - Venous No growth after 24 hours. Procedures Date of Service Date of Service: 11/25/24 Progress Note: A&P Assessment and plan (1) Abdominal fluid collection: Status: Acute Plan IR drain with minimal output since admission and drain therefore removed uneventfully at bedside this morning. Dry dressing placed. Further care per medical team. Time Spent With Patient Time: Total time managing care of this patient today ____ minutes. Quality Stroke Does the patient have a stroke diagnosis?: No VTE Prior VTE?: No VTE Risk Level:: Medical - moderate - high VTE Device Contraindication: Treatment Not Indicated VTE Drug Contraindication: N/A - Med Ordered
[2024-11-25 10:28] LABS: B Type Natriuretic Peptide 379 pg/mL (<100)
[2024-11-25 11:03] LABS: Anion Gap 13 (12-20); Blood Urea Nitrogen 46 mg/dL (9-16); Calcium 8.2 mg/dL (8.4-10.2); Carbon Dioxide 22 mmol/L (22-29); Chloride 109 mmol/L (96-108); Creatinine Clr Calc Pharmacy 36.8; Estimated Glomerular Filt Rate 34; Glucose Random 118 mg/dL (60-115); Magnesium 1.8 mg/dL (1.6-2.6); Potassium 3.5 mmol/L (3.3-5.1); Sodium 140 mmol/L (135-145)
[2024-11-25 11:18] LABS: B Type Natriuretic Peptide 369 pg/mL (<100)
[2024-11-25 11:28] LABS: Glucose, Whole Blood 157 mg/dL (60-115)
--- NOTE | 2024-11-25 11:30 | PM.DS ---
DS: Providers Provider Date of Service: 11/25/24 Date of admission: 11/23/24 16:55 Date of discharge: 11/25/24 Primary care physician: Blanca Anderson MD Consults: 11/24/24 06:53 Consult to Wound Care Routine Reason for consultation: open area buttock 11/24/24 08:52 Consult to General Surgery Routine Consulting Provider: [facility] [place] General Surgeons Reason for consultation: Bile tube removal DS: Diagnosis Discharge Diagnosis (1) Abdominal fluid collection: Status: Acute DS: Summary Hospital Course Hospital Course: History and physical as per admitting provider. 74M PMH CKD 4, chronic AFib on Eliquis, HFpEF, recently discharged day prior to presentation after hospitalization for bile leak status post cholecystectomy 10/22/24 with large fluid collection, underwent drainage and improved discharged home on Ceftin and Flagyl. At home patient began to have watery diarrhea with abdominal cramping, no blood no fevers, minimal pain. In ED white count elevated 23,000, CT abdomen showed decreased size and fluid collection, pancolitis. Stool sample sent and pending. 74-year-old man treated for severe antibiotic associated C diff diarrhea. C diff gene and toxin positive. Started on oral vancomycin and Rocephin and Flagyl. IV hydration. Patient's diarrhea resolved very quickly. No need to continue antibiotics at this time as the colitis appears to be secondary to the C diff and that will be treated with vancomycin for total of 10 days. Patient also had a bile drain that was placed during last hospitalization and subsequently removed today by General surgery as he had no further drainage. Patient was noted to have some leukocytosis likely secondary to C diff but no sepsis. Plan will be to discharge patient home to complete oral vancomycin. Chronic AFib. Continue Eliquis CKD stage 4. Creatinine at baseline Heart failure with preserved ejection fraction. No exacerbation Time Attestation Discharge Coordination Time (in mins): 40 Quality: Safe Use of Opioids Does Pt have an Active Cancer Diagnosis on the Problem List?: No Quality: Stroke Does the patient have a stroke diagnosis?: No Physical Exam Vital Signs: Vital Signs: Last Vital Signs Temp 98.9 F 11/25/24 07:10 Pulse 80 11/25/24 07:10 Resp 16 11/25/24 07:10 BP 163/76 H 11/25/24 07:10 Pulse Ox 93 11/25/24 08:07 O2 Del Method Room Air 11/25/24 08:07 BMI result Body Mass Index 31.2 Appearing in no acute distress lung sounds are clear to auscultation heart regular rate rhythm, clear S1, S2 positive bowel sounds, abdomen is soft, nontender neuro patient is alert x3, no focal deficits DS: Data Data Completed and Pending Completed studies during hospitalization [Text1]: Procedures Excision of Duodenum, Via Natural or Artificial Opening Endoscopic, Diagnostic (12/19/22) Excision of Esophagogastric Junction, Via Natural or Artificial Opening Endoscopic, Diagnostic (12/19/22) Excision of Stomach, Pylorus, Via Natural or Artificial Opening Endoscopic, Diagnostic (12/19/22) Resection of Gallbladder, Percutaneous Endoscopic Approach (10/20/24) Transfusion of Nonautologous Red Blood Cells into Peripheral Vein, Percutaneous Approach (12/19/22) Labs on day of discharge: Laboratory Results - last 24 hr 11/23/24 11/24/24 11/24/24 16:05 16:15 19:55 Hold Purple Top Sodium Potassium Chloride Carbon Dioxide Anion Gap BUN Creatinine Estim Creat Clear Calc Estimated GFR POC Glucose 129 H 112 Random Glucose Calcium Magnesium B-Natriuretic Peptide Stl C. cayetanensis PCR Not Detected Stool Rotavirus A PCR Not Detected Stl Adenov F 40/41 PCR Not Detected Stool Astrovirus (PCR) Not Detected Stool Campylobacter PCR Not Detected Stool Cryptosporidium PCR Not Detected Stl Sh Tox Pr E STEC PCR Not Detected Stool E coli O157 PCR Not applicable Stl Enterotoxigenic E PCR Not Detected Stool EPEC (PCR) Not Detected Stool EAEC (PCR) Not Detected Stl E. histolytica PCR Not Detected Stool Giardia Lamblia PCR Not Detected Stl P. shigelloides PCR Not Detected Stool Salmonella PCR Not Detected Stool Sapovirus (PCR) Not Detected Stl Shigella/EIEC PCR Not Detected St Y.enterocolitica PCR Not Detected Stool Vibrio (PCR) Not Detected Stl Vibrio cholerae PCR Not Detected Stl Norovirus GI/GII PCR Not Detected 11/25/24 11/25/24 11/25/24 06:11 07:03 09:31 Hold Purple Top SEE NOTE Sodium Potassium Chloride Carbon Dioxide Anion Gap BUN Creatinine Estim Creat Clear Calc Estimated GFR POC Glucose 97 Random Glucose Calcium Magnesium B-Natriuretic Peptide 379 H Stl C. cayetanensis PCR Stool Rotavirus A PCR Stl Adenov F 40/41 PCR Stool Astrovirus (PCR) Stool Campylobacter PCR Stool Cryptosporidium PCR Stl Sh Tox Pr E STEC PCR Stool E coli O157 PCR Stl Enterotoxigenic E PCR Stool EPEC (PCR) Stool EAEC (PCR) Stl E. histolytica PCR Stool Giardia Lamblia PCR Stl P. shigelloides PCR Stool Salmonella PCR Stool Sapovirus (PCR) Stl Shigella/EIEC PCR St Y.enterocolitica PCR Stool Vibrio (PCR) Stl Vibrio cholerae PCR Stl Norovirus GI/GII PCR 11/25/24 11/25/24 10:19 11:22 Hold Purple Top SEE NOTE Sodium 140 Potassium 3.5 Chloride 109 H Carbon Dioxide 22 Anion Gap 13 BUN 46 H Creatinine 1.94 H Estim Creat Clear Calc 36.8 Estimated GFR 34 POC Glucose 157 H Random Glucose 118 H Calcium 8.2 L Magnesium 1.8 B-Natriuretic Peptide 369 H Stl C. cayetanensis PCR Stool Rotavirus A PCR Stl Adenov F PCR Stool Astrovirus (PCR) Stool Campylobacter PCR Stool Cryptosporidium PCR Stl Sh Tox Pr E STEC PCR Stool E coli O157 PCR Stl Enterotoxigenic E PCR Stool EPEC (PCR) Stool EAEC (PCR) Stl E. histolytica PCR Stool Giardia Lamblia PCR Stl P. shigelloides PCR Stool Salmonella PCR Stool Sapovirus (PCR) Stl Shigella/EIEC PCR St Y.enterocolitica PCR Stool Vibrio (PCR) Stl Vibrio cholerae PCR Stl Norovirus GI/GII PCR Preliminary micro results at discharge 11/23/24 16:18 Blood Culture - Preliminary Blood - Venous No growth after 24 hours. 11/23/24 15:41 Blood Culture - Preliminary Blood - Venous No growth after 24 hours. Discharge Plan Discharge Anticipated Discharge Date/Time: 11/25/24 11:27 Patient Disposition: Home, Self-Care Discharge Diagnosis: C diff colitis Drain removal Referrals: Blanca Crowley MD [Primary Care Provider] - 1 Week Discharge Medications: New vancomycin 125 mg Capsule 125 mg PO Q6H Qty: 33 0RF Continued (DME) blood sugar diagnostic Strip See Rx Instructions .ROUTE BID Qty: 50 11RF Rx Instructions: Use 1 test strip once a day atorvastatin 40 mg tablet 40 mg PO DAILY polyethylene glycol 3350 [Miralax] 17 gram/dose powder 17 g PO DAILY Qty: 510 0RF amlodipine 10 mg tablet 10 mg PO DAILY hydralazine 10 mg Tablet 10 mg PO TID Qty: 90 0RF Protocol: Hold for SBP< HOLD for SBP < : 90 oxycodone 5 mg Tablet 5 mg PO Q6H PRN (Reason: Pain, Moderate(Pain Scale 4-6)) Qty: 16 0RF Rx Instructions: Partial Fill upon patient request. Eliquis 2.5 mg tablet 2.5 mg PO BID lisinopril 40 mg tablet 40 mg PO DAILY omeprazole 40 mg capsule,delayed release(DR/EC) 40 mg PO DAILY@0630 ([facility]) blood-glucose meter Misc See Rx Instructions PO BID Qty: 1 Rx Instructions: As directed ([facility]) lancets Misc See Rx Instructions .ROUTE BID Qty: 100 Rx Instructions: As directed ferrous sulfate 325 mg (65 mg iron) tablet 325 mg PO BID Qty: 60 4RF calcitriol 0.25 mcg capsule 0.25 mcg PO Q2D Qty: 14 6RF Discontinued metronidazole 500 mg tablet 500 mg PO Q8H Qty: 6 0RF cefuroxime axetil 500 mg tablet 500 mg PO BID Discharge Orders: Discharge Order (Routine); Ordered 11/25/24 Ordered By: Amelia Mcgraw Diet: Advance to usual diet Activity on Discharge: As tolerated Stand Alone Forms: Patient Portal Discharge page Print Language: Welsh Care Plan Goals: Complete treatment with vancomycin for C diff Health Concerns: C diff colitis Drain removal Plan of Treatment: Follow up with primary care provider as needed Take all medications as prescribed Assessment: See discharge summary
[2024-11-25] MEDS: Insulin Lispro 100 UNIT/ML 3 ML VIAL SUBCUT (11:32)
--- NOTE | 2024-11-25 11:38 | MHC.CM.PN ---
pt dcd home self care
--- NOTE | 2024-11-25 12:48 | PC.NURSE ---
Patient states he is ready to go home ,sommelier present
--- NOTE | 2024-11-25 13:15 | MHC.CM.PN ---
PT DCD HOME SELF CARE PT SENT HOME BY [facility]
[2024-11-25 14:21] LABS: Anion Gap 12 (12-20); Blood Urea Nitrogen 48 mg/dL (9-16); Calcium 8.2 mg/dL (8.4-10.2); Carbon Dioxide 22 mmol/L (22-29); Chloride 110 mmol/L (96-108); Estimated Glomerular Filt Rate 34; Glucose Random 86 mg/dL (60-115); Magnesium 1.9 mg/dL (1.6-2.6); Potassium 3.9 mmol/L (3.3-5.1); Sodium 140 mmol/L (135-145)
== END 2024-11-25 13:30 | disposition home or self-care (01) | DRG 372 ==
LOC: HO.ED 17:45 → HO.EDOVER 18:38 → HO.S3 11-24
PROVIDERS: Admitting Provider Internal Medicine; Emergency Provider Emergency Medicine; PCP Nurse Practitioner Family; Visit Provider Nurse Practitioner Acute Care
DX: A04.72 Enterocolitis due to Clostridium difficile, not specified as recurrent (principal); I13.0 Hypertensive heart and chronic kidney disease with heart failure and stage 1 through stage 4 chronic kidney disease, or unspecified chronic kidney disease; I50.32 Chronic diastolic (congestive) heart failure; N18.4 Chronic kidney disease, stage 4 (severe); I48.20 Chronic atrial fibrillation, unspecified; E11.22 Type 2 diabetes mellitus with diabetic chronic kidney disease; Z79.01 Long term (current) use of anticoagulants; Z79.899 Other long term (current) drug therapy
CPT/HCPCS: 36415; 71046; 74176; 80048; 80076; 81001; 81003; 82947; 83605; 83690; 83735; 83880; 85025; 85027; 85610; 86140; 87040; 87324; 87493; 87507; 93005; 99285; J0696; J1836; J7120

== ENCOUNTER → 2024-11-23 11:27 | Outpatient (BNV) | payer OTHER, SELFPAY | PROVIDERS: Emergency Provider Emergency Medicine; PCP Student in an Organized Health Care Education/Training Program; Visit Provider Internal Medicine | DX: N18.4 Chronic kidney disease, stage 4 (severe) (principal) | CPT/HCPCS: 99223 ==

== ENCOUNTER → 2024-11-23 11:46 | Outpatient (BNV) | payer OTHER, SELFPAY | PROVIDERS: Admitting Provider Internal Medicine; Emergency Provider Emergency Medicine; PCP Student in an Organized Health Care Education/Training Program; Visit Provider Internal Medicine Cardiovascular Disease | DX: I48.91 Unspecified atrial fibrillation (principal) | CPT/HCPCS: 93010 ==

== ENCOUNTER → 2024-11-23 11:47 | Outpatient (BNV) | payer OTHER, SELFPAY | PROVIDERS: Emergency Provider Emergency Medicine; PCP Student in an Organized Health Care Education/Training Program; Visit Provider Radiology Diagnostic Radiology | DX: J90 Pleural effusion, not elsewhere classified (principal); I51.7 Cardiomegaly | CPT/HCPCS: 71046; 74176 ==

== ENCOUNTER → 2024-11-23 16:55 | Outpatient (BNV) | payer OTHER, SELFPAY | PROVIDERS: Admitting Provider Internal Medicine; Emergency Provider Emergency Medicine; PCP Student in an Organized Health Care Education/Training Program; Visit Provider Physician Assistant Surgical | DX: R18.8 Other ascites (principal) | CPT/HCPCS: 99222; 99232 ==

== ENCOUNTER 2024-12-04 20:27 | Inpatient (IN) | payer OTHER, SELFPAY ==
--- NOTE | ~2024-12-04 | CT_ITS ---
CLINICAL HISTORY: effusion, edema unclear etiology with hypoxia CT abdomen and pelvis without contrast Comparison: 11/23/2024 Findings: Increased moderately large right effusion and trace left effusion. Bibasilar consolidation noted. Similar subcapsular and intrahepatic fluid collection along the posterior right hepatic lobe. The previous drain has been removed. Gallbladder absent. Common bile duct stent noted. The spleen, adrenal glands, pancreas and kidneys are stable. No free air, bowel obstruction or pneumatosis. Severe atherosclerotic disease. Degenerative changes again noted throughout the spine. Impression: Increasing effusions with overlying consolidation. Similar-appearing right posterior subcapsular hepatic fluid collection with intrahepatic extension along segment 6. No free air or bowel obstruction. This document has been electronically signed by: Chong Patterson MD on 12/08/2024 11:01:19
--- NOTE | ~2024-12-04 | XR_ITS ---
CLINICAL HISTORY: hypoxia 1 view chest x-ray Comparison: CR - XR CHEST 1V - 12/04/24 20:50 EDT Findings: Similar diffuse interstitial prominence with increased right effusion. Cardiac and mediastinal contours are stable. No acute fracture. IMPRESSION: Similar interstitial prominence with increasing right effusion. This document has been electronically signed by: Chong Patterson MD on 12/06/2024 12:47:59
--- NOTE | ~2024-12-04 | CT_ITS ---
CLINICAL HISTORY: effusion, edema unclear etiology with hypoxia CT chest without contrast Comparison: CR - XR CHEST 1V - 12/06/24 12:28 EDT Findings: The heart is borderline prominent. Atherosclerotic disease of the coronary arteries. Adenopathy within the mediastinum. Moderately large right effusion with overlying consolidation. Trace left effusion. Patchy left lower and upper lobe airspace density.. Motion artifact limits interpretation. No pneumothorax. The upper abdomen is described on the abdominal CT. No acute osseous finding within the thorax. Impression: Increased, moderately large right effusion and trace left effusion. Patchy left upper and lower lobe airspace densities consistent with pneumonia. Mediastinal adenopathy. This document has been electronically signed by: Chong Patterson MD on 12/08/2024 11:04:41
--- NOTE | ~2024-12-04 | XR_ITS ---
CLINICAL HISTORY: bilat le edema 1 view chest x-ray Comparison: CR - XR CHEST 2V - 11/23/24 12:24 EDT Findings: Mild bilateral infrahilar patchy opacity, slightly more evident on the right. New since the prior. Right subpulmonic pleural effusion. Similar to the prior. Cardiomegaly again noted. No acute fracture. IMPRESSION: Ill-defined infrahilar lung opacities bilaterally with right pleural effusion. Recommend follow-up to clearing. This document has been electronically signed by: Felicia Jade MD on 12/04/2024 21:16:38
--- NOTE | ~2024-12-04 | US_ITS ---
CLINICAL HISTORY: RU, elevated LFTs US abdomen limited. COMPARISON: US right upper quadrant dated 11/13/24 at 14:49 EDT Technique: Real time sonographic imaging, including color-flow imaging, was performed by the pit slagman. Multiple industrial sales representative static images were saved for review. FINDINGS: The visualized portions of the pancreas appear normal. The liver has normal echotexture. Liver, right lobe size: 15.5 cm, normal. Status post cholecystectomy. Common bile duct: 4 mm, normal. Right kidney: Cortical medullary differentiation is maintained. No calculus or focal parenchymal abnormality identified. No hydronephrosis. Right kidney length: 9.1 cm No free intraperitoneal fluid identified. Partially visualized right-sided pleural effusion. IMPRESSION: 1. No cause for patient's symptoms identified. 2. Partially visualized right-sided pleural effusion. This document has been electronically signed by: Raymundo Talamantes MD on 12/06/2024 15:15:44
--- NOTE | ~2024-12-04 | US_ITS ---
EXAMINATION: ULTRASOUND-GUIDED RIGHT THORACENTESIS CLINICAL INFORMATION: Small to moderate size right pleural effusion,? Etiology. COMPARISON: Correlation made with CT chest 12/06/2024. TECHNIQUE/FINDINGS: Risks and benefits of the procedure were explained to the patient in detail. Informed consent was obtained. Timeout was performed verifying appropriate laterality and site. Utilizing ultrasound guidance, a suitable pocket of left pleural fluid was identified in the left inferior thorax, and the overlying skin marked, prepped and draped in sterile fashion. Skin and subcutaneous soft tissues were anesthetized with 1% lidocaine. Subsequently, a 5 [employer] catheter was inserted into the fluid pocket, and 550 mL of reddish, clear pleural fluid was removed via vacuum bottle. The catheter was removed. There were no immediate complications. The patient tolerated the procedure well. Postprocedural chest x-ray shows no evidence of pneumothorax. A pleural fluid sample was sent for laboratory analysis. US/US thoracentesis IMPRESSION: 1. Successful ultrasound-guided right thoracentesis with drainage of 550 mL of reddish clear pleural fluid. A sample was sent for laboratory analysis. No immediate complication. Electronically signed by: Jack Shah MD 12/09/2024 01:03 PM EDT
--- NOTE | ~2024-12-04 | XR_ITS ---
EXAMINATION: XR CHEST CLINICAL INFORMATION: Post right thora COMPARISON: 12/06/2024. CT chest 12/06/2024. TECHNIQUE: Frontal view of the chest was obtained. FINDINGS: The cardiac, hilar, and mediastinal contours are normal. The lungs are clear bilaterally. Previously seen small right effusion has resolved postthoracentesis. No pneumothorax or effusion. No focal osseous or soft tissue abnormality. XR/XR chest 1V IMPRESSION: Essentially resolved right effusion. Lungs are clear. No pneumothorax status post right thoracentesis. Electronically signed by: Jack Shah MD 12/09/2024 12:56 PM EDT
[2024-12-04 20:33] VITALS: BP 156/75; BP 166/68; PULSE 76; PULSE 77; RESP 14; TEMP 37.1; O2SAT 96; O2SAT 97; BMI 28.5
--- NOTE | 2024-12-04 20:39 | ECG_ITS ---
Test Reason : GENERAL Blood Pressure : */* mmHG Vent. Rate : 74 BPM Atrial Rate : * BPM P-R Int : * ms QRS Dur : 96 ms QT Int : 394 ms P-R-T Axes : * 16 105 degrees QTcB Int : 437 ms Atrial fibrillation Nonspecific ST and T wave abnormality Abnormal ECG When compared with ECG of 23-Nov-2024 12:39, T wave inversion no longer evident in Lateral leads Referred By: Generic ED Physician Electronically Signed By: AHMET KAPADIA
--- NOTE | 2024-12-04 21:29 | ED.GENADULT ---
HPI - General Adult General Chief complaint: General Medical Stated complaint: leg swelling Time Seen by Provider: 12/04/24 21:09 Source: patient and family Mode of arrival: EMS Limitations: no limitations History of Present Illness ED Provider: HPI narrative: 74 yo male with a pmhx significant for HLD, HTN, a fib on eliquis, CKD4 baseline cr around 1.9, CHF/cardiomyopathy EF 35-40%, T2DM (no insulin), anemia of chronic disease, hyperparathyroidism, and OA also has memory loss/ dementia lives alone just discharged on 11/25 for C diff enteritis on p.o. vancomycin comes here as noticed increased swelling of the lower extremity and difficulty in walking as patient lives alone had difficulty in management of his medication also family's concern as he is not ambulatory as compared to during last discharge and not able to take care of himself patient is saturating 96% at room air patient's used to be on diuretics in 04/05 not taking it lately patient does not remember whether he is on diuretics or not during last discharge patient was not on any diuretics Related Data Home Medications ?Medication ?Instructions ?Recorded ?Confirmed blood-glucose meter #1 ea 05/14/20 01/14/24 lancets #100 ea 05/14/20 01/14/24 atorvastatin 40 mg tablet 40 mg PO DAILY 12/19/22 12/05/24 lisinopril 40 mg tablet 40 mg PO DAILY 10/20/24 12/05/24 apixaban 2.5 mg tablet (Eliquis) 2.5 mg PO BID 12/05/24 12/05/24 Previous Rx's ?Medication ?Instructions ?Recorded blood sugar diagnostic #50 ea 01/24/21 calcitriol 0.25 mcg capsule 0.25 mcg PO Q2D #14 caps 10/17/24 ferrous sulfate 325 mg (65 mg 325 mg PO BID #60 tabs 10/17/24 iron) tablet vancomycin 125 mg capsule 125 mg PO Q6H #33 caps 11/25/24 Allergies Allergy/AdvReac Type Severity Reaction Status Date / Time No Known Allergies Allergy Verified 12/04/24 20:36 [No Known Allergies*] Review of Systems Review of Systems: Yes all other systems are reviewed and are negative PMFSH Past Medical History Medical History (Updated 12/05/24 @ 10:23 by Edinson Olivera MD) CHF (congestive heart failure) CKD (chronic kidney disease) stage 4, GFR 15-29 ml/min Obesity (BMI 30.0-34.9) Cardiomyopathy CKD (chronic kidney disease) Stroke Chronic atrial fibrillation CKD (chronic kidney disease) Former smoker Depression Diabetes High cholesterol Hypertension Surgical History History of aneurysm History of shoulder surgery Family History Family History Father No problems noted. Mother Diabetes Hypertension Cancer Son No problems noted. Son No problems noted. Son No problems noted. Daughter No problems noted. Daughter No problems noted. Social History Social History Household Members: None Household Members Other:: Housing: Apartment Do you presently have visiting nurse or other home services: Yes Alcohol intake: never Patient Tobacco Use Status: Former Tobacco user Smoked in Last 30 Days: No Use of substances other than those prescribed or required for medical reasons: No Substance Use Type: Marijuana Currently Displaying Signs/Symptoms of Drug Intoxication Withdrawal: No Have you been hit, kicked, punched, or otherwise hurt by someone within the past year? If so, by whom?: No Advance Directives: No Advance Directives Information Provided: Yes Do you have a plan to hurt others: No Plan service: No Current occupational status: disabled Physical Exam ED Vital Signs: Vital Signs - 24 hr 12/04/24 20:33 Temperature 98.7 F Pulse Rate 77 Respiratory Rate 14 Blood Pressure 156/75 H Pulse Oximetry 96 Oxygen Delivery Method Room Air BMI result Body Mass Index 28.5 Appearance: Alert. Oriented X3. No acute distress. Eyes: Mild pallor ENT: Pharynx normal. Oral Mucosa moist Neck: Normal inspection. Neck supple. CVS: Normal heart rate and rhythm. Pulses normal. Respiratory: No respiratory distress. Equal air entry bilateral, no wheezing/rales/rhonchi Abdomen: Soft and nontender. Bowel sounds are present, no mass palpable, no CVA tenderness Skin: Skin warm and dry. Normal skin color. Normal skin turgor. Extremities: 4+ lower extremity edema. No calf tenderness Neuro: Oriented X 3. No motor deficit. No sensory deficit.No cerebellar signs , cranial nerves II-XII intact Medications Administered Generic Name Dose Route Start Last Admin Trade Name Freq PRN Reason Stop Dose Admin Apixaban 2.5 mg 12/05/24 09:00 12/05/24 20:40 Apixaban 2.5 Mg Tablet PO 2.5 mg BID SHAUNNA Administration Furosemide 40 mg 12/05/24 09:00 12/05/24 08:52 Furosemide 40 Mg/4 Ml Vial IVPUSH 40 mg DAILY SHAUNNA Administration Protocol Insulin Human Lispro 0 unit 12/05/24 07:30 12/05/24 23:29 Insulin Lispro 100 Unit/Ml 3 Ml Vial SUBCUT Not Given QIDACHS SHAUNNA Protocol Sodium Chloride 3 ml 12/05/24 00:00 12/06/24 03:10 0.9 % Sodium Chloride Flush 3 Ml Syringe IVFLUSH Not Given QSHIFT SHAUNNA Discontinued Medications Generic Name Dose Route Start Last Admin Trade Name Freq PRN Reason Stop Dose Admin Furosemide 40 mg 12/04/24 22:31 12/04/24 23:20 Furosemide 40 Mg/4 Ml Vial IVPUSH 12/04/24 22:32 40 mg ONCE ONE Administration Protocol Albumin Human 100 mls @ 100 mls/hr 12/05/24 11:15 12/06/24 05:36 Kedbumin 25 % IV 12/06/24 06:14 100 mls/hr Q6H SHAUNNA Administration Medical Decision Making Medical Decision Making [facility] Narrative: Patient with CHF with worsening of the swelling of the leg lives alone with fluid overload will admit patient for IV diuresis not sure whether patient has a furosemide at home patient does say that he taking the medicine but in the compute says that she get medication for last few month Differential Diagnosis Differential Diagnoses: The differential diagnosis associated with the presentation includes Admission/Observation Consideration of admission/observation: Escalation of care including admission/observation considered Consult Healthcare Provider Management of the patient was discussed with: Hospitalist Lab Data [facility] Lab Attestation statement: I reviewed the patient's lab results. 12/06/24 06:22 12/06/24 06:22 Labs: Lab Results 12/04/24 Range/Units 21:28 WBC 11.7 H (4.8-10.8) X10*3/uL RBC 3.52 L (4.60-5.80) X10*6/uL Hgb 10.1 L (14.0-18.0) g/dl Hct 30.2 L (42.0-52.0) % MCV 85.8 (80.0-98.0) fL MCH 28.7 (27.0-33.0) pg MCHC 33.4 (31.0-36.0) g/dl RDW 16.3 H (11.0-16.0) % Plt Count 229 D (160-400) X10*3/uL MPV 8.6 L (9.4-12.4) fL Immature Gran % (Auto) 0.5 H (0.0-0.4) % Neut % (Auto) 85.8 H (45-73) % Lymph % (Auto) 8.6 L (20-40) % Norton % (Auto) 4.7 (2-11) % Eos % (Auto) 0.2 (0-4) % Baso % (Auto) 0.2 (0-2) % Lymph # (Auto) 1.0 L (1.2-4.9) X10*3/uL Norton # (Auto) 0.6 (0.1-1.2) X10*3/uL Eos # (Auto) 0.0 (0.0-0.4) X10*3/uL Baso # (Auto) 0.0 (0.0-0.2) X10*3/uL Abs Immat Gran (auto) 0.06 H (0.00-0.03) X10*3/uL Absolute Neuts (auto) 10.1 H (2.0-8.3) x10*3/uL Absolute Nucleated RBC 0.000 (0.0-0.012) X10*3/uL Nucleated RBC % (auto) 0.0 (0.0-0.2) /100WBC Sodium 137 (135-145) mmol/L Potassium 3.9 (3.3-5.1) mmol/L Chloride 105 (96-108) mmol/L Carbon Dioxide 26 (22-29) mmol/L Anion Gap 10 L (12-20) BUN 25 H (9-16) mg/dL Creatinine 1.49 H (0.5-1.4) mg/dL Estim Creat Clear Calc 46.3 Estimated GFR 46 Random Glucose 91 (60-115) mg/dL Calcium 8.3 L (8.4-10.2) mg/dL Total Bilirubin 0.8 (0.0-1.0) mg/dL AST 59 H (5-37) U/L ALT 64 H (0-40) U/L Alkaline Phosphatase 585 H (39-117) U/L Troponin I High Sens 23.6 (<3.5-35.0) ng/L B-Natriuretic Peptide 430 H (<100) pg/mL Total Protein 6.2 L (6.5-8.0) g/dL Albumin 2.5 L (3.5-5.0) g/dL Procalcitonin 0.54 ng/mL Discharge Plan Discharge Clinical Impression: Congestive heart failure Qualifiers: Heart failure type: systolic Heart failure chronicity: acute on chronic Qualified Code(s): I50.23 - Acute on chronic systolic (congestive) heart failure Patient Disposition: Admitted As Inpatient Interventions: Admission Worksheet (ED) Last Done: 12/05/24 00:45 Discharge Date/Time: 12/05/24 01:48
[2024-12-04 21:33] LABS: MANUAL DIFF FLAG NO
[2024-12-04 21:36] LABS: Basophils Percent Auto 0.2 % (0-2); Eosinophils Percent Auto 0.2 % (0-4); Hematocrit 30.2 % (42.0-52.0); Hemoglobin 10.1 g/dl (14.0-18.0); Imm Gran Abs Auto 0.06 X10*3/uL (0.00-0.03); Imm Gran Pct Auto 0.5 % (0.0-0.4); Lymphocytes Percent Auto 8.6 % (20-40); Mean Corpuscular HGB Conc 33.4 g/dl (31.0-36.0); Mean Corpuscular Hemoglobin 28.7 pg (27.0-33.0); Mean Corpuscular Volume 85.8 fL (80.0-98.0); Mean Platelet Volume 8.6 fL (9.4-12.4); Monocytes Absolute Auto 0.6 X10*3/uL (0.1-1.2); Monocytes Percent Auto 4.7 % (2-11); Neutrophils Absolute Auto 10.1 x10*3/uL (2.0-8.3); Neutrophils Percent Auto 85.8 % (45-73); Platelet Count 229 X10*3/uL (160-400); Red Blood Count 3.52 X10*6/uL (4.60-5.80); Red Cell Distribution Width 16.3 % (11.0-16.0); White Blood Count 11.7 X10*3/uL (4.8-10.8)
[2024-12-04 21:49] LABS: Alanine Aminotransferase 64 U/L (0-40); Albumin Level 2.5 g/dL (3.5-5.0); Alkaline Phosphatase 585 U/L (39-117); Anion Gap 10 (12-20); Aspartate Amino Transferase 59 U/L (5-37); Bilirubin Total 0.8 mg/dL (0.0-1.0); Blood Urea Nitrogen 25 mg/dL (9-16); Calcium 8.3 mg/dL (8.4-10.2); Carbon Dioxide 26 mmol/L (22-29); Chloride 105 mmol/L (96-108); Creatinine Clr Calc Pharmacy 46.3; Estimated Glomerular Filt Rate 46; Glucose Random 91 mg/dL (60-115); Potassium 3.9 mmol/L (3.3-5.1); Sodium 137 mmol/L (135-145); Total Protein 6.2 g/dL (6.5-8.0)
[2024-12-04 21:54] LABS: B Type Natriuretic Peptide 430 pg/mL (<100)
[2024-12-04 21:57] LABS: Troponin-I High Sensitivity 23.6 ng/L (<3.5-35.0)
--- NOTE | 2024-12-04 22:42 | P.HPHOSP_ITS ---
History of Present Illness Date of Service: 12/04/24 Chief Complaint: leg swelling 74-year-old male with a past medical history of HTN, HLD, dm, CAD, CKD, CHF-35-40%, AFib on Eliquis, anemia, hyperparathyroidism, osteoarthritis, memory impairment; recent admission to the hospital for C diff infection; presented to the hospital today with a chief complaint of generalized weakness. Reportedly patient was recently discharged from the hospital after being treated for C diff. Initially. Lately has become difficulty ambulating because of bilateral leg swelling. Denies any numbness tingling or focal weakness. Denies any falls or injury. Denies any chest pain or palpitations. Reports shortness of breath. Denies any cough or sputum production. Patient denies any fevers. Reports his diarrhea is improving. Review of all other systems is negative except mentioned above ER course: Per ER team, patient noted bilateral leg swelling; chest x-ray showed bilateral fluffy opacities concerning for acute CHF. Patient not on Lasix lately. Given dose of IV Lasix. Creatinine at his baseline. [facility] Medical History (Updated 12/04/24 @ 22:43 by Alf Bo MD) CHF (congestive heart failure) CKD (chronic kidney disease) stage 4, GFR 15-29 ml/min Obesity (BMI 30.0-34.9) Cardiomyopathy CKD (chronic kidney disease) Stroke Chronic atrial fibrillation CKD (chronic kidney disease) Former smoker Depression Diabetes High cholesterol Hypertension Family History Father No problems noted. Mother Diabetes Hypertension Cancer Son No problems noted. Son No problems noted. Son No problems noted. Daughter No problems noted. Daughter No problems noted. Surgical History History of aneurysm History of shoulder surgery Social History Household Members: Significant Other and Family Household Members Other:: Housing: House Do you presently have visiting nurse or other home services: Yes Alcohol intake: never Patient Tobacco Use Status: Former Tobacco user Substance Use Type: Marijuana Advance Directives: No Advance Directives Information Provided: Yes Do you have a plan to hurt others: No Plan service: No Current occupational status: disabled Meds Allergies Allergy/AdvReac Type Severity Reaction Status Date / Time No Known Allergies Allergy Verified 12/04/24 20:36 [No Known Allergies*] Active Medications: Current Medications Acetaminophen (Acetaminophen 325 Mg Tablet) 650 mg PO Q6H PRN PRN Reason: Pain, Mild 1-3,fever,headache Albuterol/Ipratropium (Albuterol/Iprat 2.5/0.5mg 3 Ml Ampul.Neb) 3 ml INHALE Q4H PRN PRN Reason: Shortness of Breath/Wheezing Apixaban (Apixaban 2.5 Mg Tablet) 2.5 mg PO BID SHAUNNA Benzonatate (Benzonatate 100 Mg Capsule) 100 mg PO TID PRN PRN Reason: Cough Calcium Carbonate (Calcium Carbonate 750 Mg Tab.Chew) 750 mg PO Q4H PRN PRN Reason: Heartburn Furosemide (Furosemide 40 Mg/4 Ml Vial) 40 mg IVPUSH DAILY SHAUNNA; Protocol Magnesium Hydroxide (Milk Of Magnesia 30 Ml Oral.Susp) 30 ml PO DAILY PRN PRN Reason: Constipation Melatonin (Melatonin 3 Mg Tablet) 6 mg PO BEDTIME PRN PRN Reason: Insomnia Sodium Chloride (0.9 % Sodium Chloride Flush 3 Ml Syringe) 3 ml IVFLUSH QSHIFT SHAUNNA Home Medications ?Medication ?Instructions ?Recorded ?Confirmed ?Last Taken ?Type blood-glucose meter #1 ea 05/14/20 01/14/24 Unknown History lancets #100 ea 05/14/20 01/14/24 Unknown History atorvastatin 40 mg tablet 40 mg PO DAILY 12/19/22 11/23/24 11/11/24 History apixaban 2.5 mg tablet (Eliquis) 2.5 mg PO BID 10/20/24 11/23/24 11/11/24 History lisinopril 40 mg tablet 40 mg PO DAILY 10/20/24 11/23/24 11/11/24 History amlodipine 10 mg tablet 10 mg PO DAILY 11/12/24 11/23/24 Unknown History omeprazole 40 mg capsule,delayed 40 mg PO DAILY@0630 11/23/24 11/23/24 Unknown History release Physical Exam 2 Vital Signs and Narrative: Vital Signs: Last Vital Signs Temp 98.7 F 12/04/24 20:33 Pulse 77 12/04/24 20:33 Resp 14 12/04/24 20:33 BP 156/75 H 12/04/24 20:33 Pulse Ox 96 12/04/24 20:33 O2 Del Method Room Air 12/04/24 20:33 BMI result Body Mass Index 28.5 Gen: Appears be in no acute distress HEENT: NCAT, Moist mucosa. Pulmonary: Vesicular breath sounds, fair air entry CVS: Normal S1-S2 Abdomen: BS+, Soft, Nontender Extremities: Warm well perfused Neuro: Alert and awake. Results Labs 12/04/24 21:28 12/04/24 21:28 Labs: Laboratory Results - last 24 hr 12/04/24 21:28 MCV 85.8 MCH 28.7 MCHC 33.4 RDW 16.3 H Plt Count 229 D MPV 8.6 L Immature Gran % (Auto) 0.5 H Neut % (Auto) 85.8 H Lymph % (Auto) 8.6 L Delta % (Auto) 4.7 Eos % (Auto) 0.2 Baso % (Auto) 0.2 Lymph # (Auto) 1.0 L Delta # (Auto) 0.6 Eos # (Auto) 0.0 Baso # (Auto) 0.0 Abs Immat Gran (auto) 0.06 H Absolute Neuts (auto) 10.1 H Absolute Nucleated RBC 0.000 Nucleated RBC % (auto) 0.0 Anion Gap 10 L Estim Creat Clear Calc 46.3 Estimated GFR 46 Random Glucose 91 Calcium 8.3 L Total Bilirubin 0.8 AST 59 H ALT 64 H Alkaline Phosphatase 585 H B-Natriuretic Peptide 430 H Total Protein 6.2 L Albumin 2.5 L Assessment and Plan (1) CHF (congestive heart failure): Qualifiers: Heart failure type: systolic Heart failure chronicity: acute on chronic Qualified Code(s): I50.23 - Acute on chronic systolic (congestive) heart failure Status: Acute Plan 74-year-old male with a past medical history of HTN, HLD, dm, CAD, CKD, CHF-35-40%, AFib on Eliquis, anemia, hyperparathyroidism, osteoarthritis, memory impairment; recent admission to the hospital for C diff infection; presented to the hospital today with a chief complaint of generalized weakness. Admitted for following Acute on chronic CHF: Patient's prior echocardiogram showed EF of 35-40%. Patient reportedly has not been on Lasix lately. Noted bilateral leg swelling; proBNP elevated to 300s. IV Lasix daily Daily weights and I's and o's Cardiology consult Repeat echocardiogram Abnormal chest x-ray:-pneumonia in the differential. Will obtain procalcitonin. Diabetes: Insulin sliding scale CKD: Patient's creatinine at his baseline. Monitor renal function while diuresing Recent C diff infection: Reports diarrhea improving. Finish course of p.o. vancomycin. HX AFib: Continue home Eliquis DVT prophylaxis: Patient on Eliquis Code status: Full code Quality Stroke Does the patient have a stroke diagnosis?: No VTE Prior VTE?: No VTE Risk Level:: Medical - moderate - high VTE Device Contraindication: Treatment Not Indicated VTE Drug Contraindication: N/A - Med Ordered
[2024-12-04 23:20] VITALS: BP 162/86
[2024-12-04] MEDS: Furosemide 40 MG/4 ML VIAL IVPUSH (23:20)
[2024-12-04 23:53] LABS: Procalcitonin 0.54 ng/mL
[2024-12-05] VITALS: BP 158/78; PULSE 81; RESP 20; TEMP 37.2; O2SAT 98
[2024-12-05 00:37] VITALS: BMI 27.5
[2024-12-05 02:56] VITALS: BP 165/81; PULSE 73; RESP 18; TEMP 37.2; O2SAT 96
--- NOTE | 2024-12-05 07:00 | CA_ITS ---
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 The calculated ejection fraction is 52% by biplane method. - The inferolateral wall and basal inferior segment are hypokinetic. - No obvious valvular pathology seen on this study. - Mild pulmonary hypertension is present. Findings Procedure Information Contrast agent, definity, is being given per protocol without apparent complications. Left Ventricle Normal left ventricular cavity size. There is normal left ventricular wall thickness. The left ventricular systolic function is mildly decreased. The calculated ejection fraction is 52% by biplane method. There is evidence of regional wall motion abnormalities. Diastolic function is indeterminate on the basis of available data. Wall Motion Rest Echo Findings The inferolateral wall and basal inferior segment are hypokinetic. Right Ventricle Normal right ventricular cavity size. There is normal right ventricular systolic function. Atria The left atrium is moderately dilated. The right atrium is mildly dilated. Aortic Valve There is a normal trileaflet aortic valve. There is no aortic valve stenosis. There is no aortic valve regurgitation. Mitral Valve The mitral valve appears normal. There is mild mitral valve regurgitation. There is no mitral valve stenosis. Pulmonic Valve The pulmonic valve was not well visualized. Tricuspid Valve There is trace tricuspid valve regurgitation. Mild pulmonary hypertension is present. Great Vessels The asc aorta is normal in size. Venous The inferior vena cava is dilated and collapses less than 50% with inspiration. Pericardium/Pleural There is a trivial pericardial effusion. Prior Study Comparison Changes noted compared to prior study dated: 12/20/2022. LVEF lower than prior study. See comment on wall motion. Recommendations, Care & Conclusions No obvious valvular pathology seen on this study. Measurements 2D Linear Measurements IVSd: 0.94 0.6-0.9/0.6-1.0 cm LVIDd: 5.70 3.9-5.3/4.2-5.9 cm LVIDd Index: 2.97 2.4-3.2/2.2-3.1 cm/m2 LVIDs: 4.31 2.0-3.6 cm LVPWd: 0.92 0.7-1.1 cm LA Diam: 4.50 2.7-3.8/3.0-4.0 cm LAIDs Index: 2.34 1.5-2.3 cm/m2 LV Mass: 256.23 67-162/88-224 g LV Mass Index: 133.45 43-95/49-115 g/m2 LVOT Diam: 2.30 3.0+(-)1.3 cm 2D Systolic Function EF 4C: 54.10 >55% EF 2C: 46.30 >55% EF BiP: 51.80 >55% Mitral Valve MV Pk E: 0.77 MV Decel Time: 187.00 E'Lateral: 11.10 E'Medial: 7.51 E/E' Med: 10.30 E/E' Lat: 6.90 PHT: 55.00 MVA PHT: 4.00 Decel [place]: 4.14 Aortic Valve AoV Pk Rufus: 1.11 AoV Pk Grad: 5.00 LVOT LVOT Pk Rufus: 0.91 LVOT Mn Rufus: 0.57 LVOT VTI: 0.18 LVOT Pk Grad: 3.00 LVOT Mn Grad: 1.00 LVOT Diam: 2.30 LVOT Area: 4.15 Diastolic Function MV Pk E: 0.77 E'Medial: 7.51 E/E' Med: 10.30 E' Laterial: 11.10 E/E' Lat: 6.90 Right Ventricle TAPSE (mm): 18.20 TVS' Rufus: 11.20 Tricuspid Valve TR Pk Rufus: 2.93 TR Pk Grad: 34.00 RA Press: 15.00 RVSP: 49.00 Great Vessels Aorta Sinus of Valsalva: 3.76 2.0-3.5 cm Ao Asc: 3.20 2.1-3.4 cm Updated in Other Vendor System with Status of Final Edinson Olivera MD electronically signed on 12/05/2024 2:14:01 PM with status of Final
[2024-12-05 07:07] LABS: Glucose, Whole Blood 89 mg/dL (60-115)
[2024-12-05 07:08] LABS: MANUAL DIFF FLAG NO
[2024-12-05 07:26] LABS: Basophils Percent Auto 0.2 % (0-2); Eosinophils Percent Auto 0.2 % (0-4); Hematocrit 33.1 % (42.0-52.0); Hemoglobin 10.7 g/dl (14.0-18.0); Imm Gran Abs Auto 0.12 X10*3/uL (0.00-0.03); Imm Gran Pct Auto 0.9 % (0.0-0.4); Lymphocytes Absolute Auto 1.4 X10*3/uL (1.2-4.9); Lymphocytes Percent Auto 10.3 % (20-40); Mean Corpuscular HGB Conc 32.3 g/dl (31.0-36.0); Mean Corpuscular Hemoglobin 28.4 pg (27.0-33.0); Mean Corpuscular Volume 87.8 fL (80.0-98.0); Mean Platelet Volume 9.2 fL (9.4-12.4); Monocytes Absolute Auto 0.6 X10*3/uL (0.1-1.2); Monocytes Percent Auto 4.9 % (2-11); Neutrophils Percent Auto 83.5 % (45-73); Platelet Count 259 X10*3/uL (160-400); Red Blood Count 3.77 X10*6/uL (4.60-5.80); Red Cell Distribution Width 16.2 % (11.0-16.0); White Blood Count 13.1 X10*3/uL (4.8-10.8)
[2024-12-05 07:36] VITALS: BP 183/88; PULSE 65; RESP 18; TEMP 36.4; O2SAT 95
[2024-12-05 07:37] LABS: Alanine Aminotransferase 65 U/L (0-40); Albumin Level 2.5 g/dL (3.5-5.0); Alkaline Phosphatase 632 U/L (39-117); Anion Gap 12 (12-20); Aspartate Amino Transferase 70 U/L (5-37); Bilirubin Total 0.9 mg/dL (0.0-1.0); Blood Urea Nitrogen 24 mg/dL (9-16); Calcium 8.5 mg/dL (8.4-10.2); Carbon Dioxide 28 mmol/L (22-29); Chloride 103 mmol/L (96-108); Creatinine Clr Calc Pharmacy 43.8; Estimated Glomerular Filt Rate 44; Glucose Random 84 mg/dL (60-115); Potassium 4.4 mmol/L (3.3-5.1); Sodium 139 mmol/L (135-145); Total Protein 6.4 g/dL (6.5-8.0)
[2024-12-05] MEDS: 0.9 % Sodium Chloride Flush 3 ML SYRINGE IVFLUSH ×2 (08:52→16:41)
[2024-12-05] MEDS: Furosemide 40 MG/4 ML VIAL IVPUSH (08:52)
[2024-12-05] MEDS: Apixaban 2.5 MG TABLET PO ×2 (08:52→20:40)
--- NOTE | 2024-12-05 10:14 | PM.CNCAR ---
History of Present Illness History of Present Illness Date of Service: 12/05/24 Chief complaint: CHF Narrative: This is a cardiology consultation regarding congestive heart failure. We had seen him in consultation in 2022 but not since. Current admission is regarding generalized weakness and leg swelling. He has had a couple of recent hospital admissions. Per discharge summary, he has had cholecystectomy, bile leak, colitis, transaminitis among others. Then, another hospitalization for C diff. after that, he is now readmitted for leg swelling and generalized weakness. He is denying any complaints of shortness of breath or chest pain or in fact anything cardiac sounding. There is mention of LVEF of 35-40% but the last echocardiogram from 2022 actually shows LVEF of 68%. Hence not clear. History of atrial fibrillation. Review of Systems Review of Systems: Yes all other systems are reviewed and are negative Constitutional: Constitutional: Reports as per HPI and Reports no additional constitutional complaints Eyes: Eyes: Reports as per HPI and Denies no additional eye complaints ENT: Denies system reviewed and no additional complaints, except as documented and Reports as per HPI Cardiovascular: Cardiovascular: Reports as per HPI, Reports no additional cardiovascular complaints, Denies acrocyanosis, Denies cool extremities, Denies chest pain, Reports leg edema, Denies lightheadedness, Denies palpitations and Denies dyspnea Respiratory: Respiratory: Reports as per HPI, Denies no additional respiratory complaints and Denies dyspnea Gastrointestinal: Gastrointestinal: Reports as per HPI and Denies no additional gastrointestinal complaints Genitourinary: Genitourinary: Reports no additional male genitourinary complaints and Reports as per HPI Musculoskeletal: Musculoskeletal: Reports no additional musculoskeletal complaints and Reports as per HPI Integumentary/Breasts: Skin/Breast: Reports system reviewed and no additional complaints, except as docu Neurologic: Reports system reviewed and no additional complaints, except as documented and Reports as per HPI Psychiatric: Psychiatric: Reports no additional psychiatric complaints and Reports as per HPI Endocrine: Endocrine: Reports no additional endocrine complaints, Reports as per HPI and Denies palpitations Hematologic/Lymphatic: Hematologic/Lymphatic: Reports no additional hematologic/lymphatic complaints and Reports as per HPI Allergic/Immunologic: Allergic/Immunologic: Reports no additional allergic/immunologic complaints and Reports as per HPI FORMERLY [facility] Past Medical History Medical History (Updated 12/05/24 @ 10:23 by Edinson Olivera MD) CHF (congestive heart failure) CKD (chronic kidney disease) stage 4, GFR 15-29 ml/min Obesity (BMI 30.0-34.9) Cardiomyopathy CKD (chronic kidney disease) Stroke Chronic atrial fibrillation CKD (chronic kidney disease) Former smoker Depression Diabetes High cholesterol Hypertension Family History Family History Father No problems noted. Mother Diabetes Hypertension Cancer Son No problems noted. Son No problems noted. Son No problems noted. Daughter No problems noted. Daughter No problems noted. Surgical History Surgical History History of aneurysm History of shoulder surgery Social History Social History Household Members: None Household Members Other:: Housing: Apartment Do you presently have visiting nurse or other home services: Yes Alcohol intake: never Patient Tobacco Use Status: Former Tobacco user Smoked in Last 30 Days: No Use of substances other than those prescribed or required for medical reasons: No Substance Use Type: Marijuana Have you been hit, kicked, punched, or otherwise hurt by someone within the past year? If so, by whom?: No Advance Directives: No Advance Directives Information Provided: Yes Do you have a plan to hurt others: No Plan service: No Current occupational status: disabled Meds Allergies Allergy/AdvReac Type Severity Reaction Status Date / Time No Known Allergies Allergy Verified 12/04/24 20:36 [No Known Allergies*] Active Medications: Current Medications Acetaminophen (Acetaminophen 325 Mg Tablet) 650 mg PO Q6H PRN PRN Reason: Pain, Mild 1-3,fever,headache Albuterol/Ipratropium (Albuterol/Iprat 2.5/0.5mg 3 Ml Ampul.Neb) 3 ml INHALE Q4H PRN PRN Reason: Shortness of Breath/Wheezing Apixaban (Apixaban 2.5 Mg Tablet) 2.5 mg PO BID SHAUNNA Last Admin: 12/05/24 08:52 Dose: 2.5 mg Benzonatate (Benzonatate 100 Mg Capsule) 100 mg PO TID PRN PRN Reason: Cough Calcium Carbonate (Calcium Carbonate 750 Mg Tab.Chew) 750 mg PO Q4H PRN PRN Reason: Heartburn Dextrose (Dextrose 50 % 25 Gm/50 Ml Syringe) 25 gm IVPUSH Q15M PRN; Protocol PRN Reason: per Hypoglycemia Standing Ord. Furosemide (Furosemide 40 Mg/4 Ml Vial) 40 mg IVPUSH DAILY ON LICENSE OF [facility]; Protocol Last Admin: 12/05/24 08:52 Dose: 40 mg Glucose (Glucose Gel 15 Gm Gel..Gram.) 15 gm PO Q15M PRN; Protocol PRN Reason: per Hypoglycemia Standing Ord. Insulin Human Lispro (Insulin Lispro 100 Unit/Ml 3 Ml Vial) 0 unit SUBCUT QIDACHS ON LICENSE OF [facility]; Protocol Last Admin: 12/05/24 08:52 Dose: Not Given Magnesium Hydroxide (Milk Of Magnesia 30 Ml Oral.Susp) 30 ml PO DAILY PRN PRN Reason: Constipation Melatonin (Melatonin 3 Mg Tablet) 6 mg PO BEDTIME PRN PRN Reason: Insomnia Sodium Chloride (0.9 % Sodium Chloride Flush 3 Ml Syringe) 3 [facility] Last Admin: 12/05/24 08:52 Dose: 3 ml Home Medications ?Medication ?Instructions ?Recorded ?Confirmed ?Last Taken ?Type blood-glucose meter #1 ea 05/14/20 01/14/24 Unknown History lancets #100 ea 05/14/20 01/14/24 Unknown History atorvastatin 40 mg tablet 40 mg PO DAILY 12/19/22 11/23/24 11/11/24 History lisinopril 40 mg tablet 40 mg PO DAILY 10/20/24 11/23/24 11/11/24 History amlodipine 10 mg tablet 10 mg PO DAILY 11/12/24 11/23/24 Unknown History omeprazole 40 mg capsule,delayed 40 mg PO DAILY@0630 11/23/24 11/23/24 Unknown History release cefuroxime axetil 500 mg tablet 500 mg PO BID 12/05/24 Unknown History metronidazole 500 mg tablet 500 mg PO TID 12/05/24 Unknown History Physical Exam Vital Signs: Vital Signs: Last Vital Signs Temp 97.5 F 12/05/24 07:36 Pulse 65 12/05/24 07:36 Resp 18 12/05/24 07:36 BP 183/88 H 12/05/24 07:36 Pulse Ox 95 12/05/24 07:36 O2 Del Method Room Air 12/05/24 07:36 BMI result Body Mass Index 27.5 Const: General: comfortable and no acute distress Orientation/consciousness: patient oriented x3 HEENT: Other: Unremarkable Head: Yes normal to inspection Neck: Neck: Yes normal visual inspection Chest: Chest palpation & inspection: normal inspection of the chest Resp: Auscultation: clear to auscultation bilaterally Cardio: Palpation: normal PMI Heart sounds: S1 normal heart sound present, S2 normal heart sound present, no gallops, no murmurs and no rubs GI: Other: Right upper quadrant tenderness Back/Spine/Pelvis: Other: unremarkable Skin: General skin exam: no rashes or lesions noted Neuro: General: patient oriented x3 Extrem: Other: 1-2+ edema General: Yes normal to inspection Psych: Mental Status: mental status grossly normal Objective Labs and Meds 12/05/24 07:07 12/05/24 07:07 Lab results: Laboratory Results - last 24 hr 12/04/24 12/05/24 12/05/24 21:28 06:54 07:07 WBC 11.7 H 13.1 H RBC 3.52 L 3.77 L Hgb 10.1 L 10.7 L Hct 30.2 L 33.1 L MCV 85.8 87.8 MCH 28.7 28.4 MCHC 33.4 32.3 RDW 16.3 H 16.2 H Plt Count 229 D 259 MPV 8.6 L 9.2 L Immature Gran % (Auto) 0.5 H 0.9 H Neut % (Auto) 85.8 H 83.5 H Lymph % (Auto) 8.6 L 10.3 L Darke % (Auto) 4.7 4.9 Eos % (Auto) 0.2 0.2 Baso % (Auto) 0.2 0.2 Lymph # (Auto) 1.0 L 1.4 Darke # (Auto) 0.6 0.6 Eos # (Auto) 0.0 0.0 Baso # (Auto) 0.0 0.0 Abs Immat Gran (auto) 0.06 H 0.12 H Absolute Neuts (auto) 10.1 H 11.0 H Absolute Nucleated RBC 0.000 0.000 Nucleated RBC % (auto) 0.0 0.0 Sodium 137 139 Potassium 3.9 4.4 Chloride 105 103 Carbon Dioxide 26 28 Anion Gap 10 L 12 BUN 25 H 24 H Creatinine 1.49 H 1.55 H Estim Creat Clear Calc 46.3 43.8 Estimated GFR 46 44 POC Glucose 89 Random Glucose 91 84 Calcium 8.3 L 8.5 Total Bilirubin 0.8 0.9 AST 59 H 70 H ALT 64 H 65 H Alkaline Phosphatase 585 H 632 H Troponin I High Sens 23.6 B-Natriuretic Peptide 430 H Total Protein 6.2 L 6.4 L Albumin 2.5 L 2.5 L Procalcitonin 0.54 ECG Interpretation: EKG with underlying atrial fibrillation at a rate of 74/Min; nonspecific ST-T changes. Assessment and Plan (1) Leg swelling: Status: Acute (2) Chronic atrial fibrillation: Status: Acute Plan Creatinine of 1.5 and improved from recent levels. Abnormal LFTs. Unremarkable high sensitivity troponin. Cardiac BNP is 430. Albumin is 2.5. In October, it was higher. Echocardiogram 2022 with LVEF of 68%. Moderate LVH. Severe biatrial enlargement. Mild mitral/tricuspid regurgitation and mild pulmonary hypertension. Overall, do not believe cardiac etiology is the main reason for the leg swelling. Much more likely from hypoalbuminemia and possible hepatic etiology. We will consider CT or ultrasound of the liver and right upper quadrant. It appears echocardiogram is already been ordered and will review once completed. Discussed with Dr. Bates. Procedures Date of Service Date of Service: 12/05/24
--- NOTE | 2024-12-05 11:11 | HO.PM.IMPN ---
Subjective Subjective Date of Service: 12/05/24 Interval History: No acute issues overnight. No O2 requirement at this time. , cardiology input. Appreciated Review of Systems Denies chest pain Denies shortness of breath Denies nausea vomiting diarrhea Admits to abdominal pain Denies fever chills Physical Exam Vital Signs: Vital Signs: Last Vital Signs Temp 97.5 F 12/05/24 07:36 Pulse 65 12/05/24 07:36 Resp 18 12/05/24 07:36 BP 183/88 H 12/05/24 07:36 Pulse Ox 95 12/05/24 07:36 O2 Del Method Room Air 12/05/24 07:36 BMI result Body Mass Index 27.5 Const: Other: Awake alert oriented x3 in no acute distress Resp: Other: Clear to auscultation bilaterally no rales rhonchi or wheezes Cardio: Other: No S4; positive S1-S2; no S3 murmurs rubs or gallops GI: Other: Soft tender right upper quadrant without rebound Extrem: Other: Edema bilaterally Objective Data Active Medications Acetaminophen (Acetaminophen 325 Mg Tablet) 650 mg PO Q6H PRN PRN Reason: Pain, Mild 1-3,fever,headache Albuterol/Ipratropium (Albuterol/Iprat 2.5/0.5mg 3 Ml Ampul.Neb) 3 ml INHALE Q4H PRN PRN Reason: Shortness of Breath/Wheezing Apixaban (Apixaban 2.5 Mg Tablet) 2.5 mg PO BID [facility] Last Admin: 12/05/24 08:52 Dose: 2.5 mg Documented By: JODY Benzonatate (Benzonatate 100 Mg Capsule) 100 mg PO TID PRN PRN Reason: Cough Calcium Carbonate (Calcium Carbonate 750 Mg Tab.Chew) 750 mg PO Q4H PRN PRN Reason: Heartburn Dextrose (Dextrose 50 % 25 Gm/50 Ml Syringe) 25 gm IVPUSH Q15M PRN; Protocol PRN Reason: per Hypoglycemia Standing Ord. Furosemide (Furosemide 40 Mg/4 Ml Vial) 40 mg IVPUSH DAILY [facility]; Protocol Last Admin: 12/05/24 08:52 Dose: 40 mg Documented By: JODY Glucose (Glucose Gel 15 Gm Gel..Gram.) 15 gm PO Q15M PRN; Protocol PRN Reason: per Hypoglycemia Standing Ord. Insulin Human Lispro (Insulin Lispro 100 Unit/Ml 3 Ml Vial) 0 unit SUBCUT QIDACHS [facility]; Protocol Last Admin: 12/05/24 08:52 Dose: Not Given Documented By: JODY Non-Admin Reason: No Insulin Coverage Magnesium Hydroxide (Milk Of Magnesia 30 Ml Oral.Susp) 30 ml PO DAILY PRN PRN Reason: Constipation Melatonin (Melatonin 3 Mg Tablet) 6 mg PO BEDTIME PRN PRN Reason: Insomnia Sodium Chloride (0.9 % Sodium Chloride Flush 3 Ml Syringe) 3 ml IVFLUSH [facility] Last Admin: 12/05/24 08:52 Dose: 3 ml Documented By: JODY Labs 12/05/24 07:07 12/05/24 07:07 Labs: Laboratory Results - last 24 hr 12/04/24 12/05/24 12/05/24 21:28 06:54 07:07 MCV 85.8 87.8 MCH 28.7 28.4 MCHC 33.4 32.3 RDW 16.3 H 16.2 H Plt Count 229 D 259 MPV 8.6 L 9.2 L Immature Gran % (Auto) 0.5 H 0.9 H Neut % (Auto) 85.8 H 83.5 H Lymph % (Auto) 8.6 L 10.3 L [place] % (Auto) 4.7 4.9 Eos % (Auto) 0.2 0.2 Baso % (Auto) 0.2 0.2 Lymph # (Auto) 1.0 L 1.4 [place] # (Auto) 0.6 0.6 Eos # (Auto) 0.0 0.0 Baso # (Auto) 0.0 0.0 Abs Immat Gran (auto) 0.06 H 0.12 H Absolute Neuts (auto) 10.1 H 11.0 H Absolute Nucleated RBC 0.000 0.000 Nucleated RBC % (auto) 0.0 0.0 Anion Gap 10 L 12 Estim Creat Clear Calc 46.3 43.8 Estimated GFR 46 44 POC Glucose 89 Random Glucose 91 84 Calcium 8.3 L 8.5 Total Bilirubin 0.8 0.9 AST 59 H 70 H ALT 64 H 65 H Alkaline Phosphatase 585 H 632 H B-Natriuretic Peptide 430 H Total Protein 6.2 L 6.4 L Albumin 2.5 L 2.5 L Procalcitonin 0.54 Assessment and Plan (1) Leg swelling: Status: Acute (2) Anemia in chronic kidney disease (CKD): Status: Acute (3) Chronic atrial fibrillation: Status: Acute Plan 74-year-old male with a past medical history of HTN, HLD, dm, CAD, CKD, CHF-35-40%, AFib on Eliquis, anemia, hyperparathyroidism, osteoarthritis, memory impairment; recent admission to the hospital for C diff infection; presented to the hospital today with a chief complaint of generalized weakness. Admitted for following 1.Chronic CHF: -Patient's prior echocardiogram showed EF of 35-40%. -DC Lasix ... Cardiology does not feel failure rather hypoalbuminemic state -Daily weights and I's and o's -Cardiology consult appreciated -repeat echocardiogram -albumin x4 bottles 2.Diabetes -acceptable control on current therapies -lispro correctional scale Adjust as indicated 3.CKD -baseline -follow renal/divalents 4.Recent C diff infection -complete vancomycin as ordered 5. Persistent AFib -acceptable rate control -adjust as indicated -Eliquis 6. Persistent abdominal pain -rescan abdomen to assess fluid collection -consult as appropriate Eliquis Full code Quality Stroke Does the patient have a stroke diagnosis?: No VTE Prior VTE?: No VTE Risk Level:: Medical - moderate - high VTE Device Contraindication: Treatment Not Indicated VTE Drug Contraindication: N/A - Med Ordered
--- NOTE | 2024-12-05 11:24 | MHC.CM.PN ---
IMM 12/06/23, Pt lives alone, PCP is confirmed: Dr. Harmon, HCP in on file and confirmed: Esha and Heri. Services were referred: [facility] and [facility], but had not gotten started yet because pt. is back in hosp. Pt was going to have a memory test at [facility], but is in hosp. Pt gave CM permission to call his dtr. CM spoke with dtr, Esha. She said that pt. is not taking his medication, not eating. He needs more help at home, CM discussed HALFW[facility]: [facility], in [place] that accepts [facility] and [facility] adult day health. Dtr will look into these options. On previous hosp stay, PT rec. STR. DCP; may be STR. CM to follow for DC needs.
[2024-12-05 11:29] LABS: Glucose, Whole Blood 117 mg/dL (60-115)
[2024-12-05 11:38] VITALS: BP 120/85; PULSE 95; RESP 17; TEMP 36.4; O2SAT 96
[2024-12-05] MEDS: Albumin Human 25 % 100 ML IV ×3 (11:50→23:36)
--- NOTE | 2024-12-05 12:57 | PHA.MEDREC ---
Addendum entered by Avani Galvan [facility] 12/05/24 13:54: Reviewed by [facility] Original Note: Pharmacy Consult ? Medication Reconciliation Pharmacy has completed the medication reconciliation. Went and spoke with patient and he was a poor historian. We called patients daughter, Esha, and she confirmed the patient had been getting taken care of more by her brother Heri and stated her brother has been telling her that their dad has not been taking his medications. The daughter is adamant the patient is taking Eliquis 2.5mg tabs twice a day and confirmed he gets it filled at [facility]; I called them and they have not filled that since 02/2024 for 90 days and states 03/11/[address] sent a note to the pharmacy claiming the patient should continue taking Eliquis 2.5mg tabs twice a day but never got any more refills for that medication. [facility] and [facility] pharmacy both confirm they have no history of filling that medication at their facilities. I messaged the provider on that patient and they state they wanted to keep the Eliquis on the med rec. She was able to confirm everything else the patient takes and confirmed the patient has Cefuroxime, Hydralazine, Omeprazole and Metrondazole ready to scrap picker at [facility] and Oxycodone ready at [facility] they have not gotten yet for the patient. The daughter and son are not sure if the patient finished or started the Vancomycin regimen but the patients son states he has not really taken his medication in about 1 month due to the patients memory getting worse and worse.
[2024-12-05 15:50] LABS: Glucose, Whole Blood 99 mg/dL (60-115)
[2024-12-05 15:51] VITALS: BP 173/81; PULSE 67; RESP 17; TEMP 36.7; O2SAT 95
[2024-12-05 16:00] VITALS: BMI 27.5
--- NOTE | 2024-12-05 16:08 | MHC.CLN ---
NUTRITION DIET=DIABETIC 2000 KCALS. ADDING ENSURE MAX BID (300 KCALS, 60 G PROTEIN) TO PROMOTE WOUND HEALING/SKIN INTEGRITY. STAGE II WOUNDS TO LEFT AND RIGHT BUTTOCKS ID DURING PRIOR ADM. FOLLOW FOR SKIN INTEGRITY. MONITOR PO INTAKE. SEE CLINICAL NUTRITION ASSESSMENT 12/05/24.
[2024-12-05 20:00] VITALS: BP 145/70; PULSE 62; RESP 20; TEMP 36.7; O2SAT 93
[2024-12-05 20:48] LABS: Glucose, Whole Blood 119 mg/dL (60-115)
[2024-12-06] VITALS: BP 179/84; PULSE 69; RESP 20; TEMP 36.7; O2SAT 92
[2024-12-06 04:00] VITALS: BP 145/80; PULSE 67; RESP 20; TEMP 36.9; O2SAT 91
[2024-12-06] MEDS: Albumin Human 25 % 100 ML IV (05:36)
[2024-12-06 06:45] LABS: MANUAL DIFF FLAG NO
[2024-12-06 07:17] LABS: Basophils Percent Auto 0.2 % (0-2); Eosinophils Absolute Auto 0.1 X10*3/uL (0.0-0.4); Eosinophils Percent Auto 0.6 % (0-4); Hemoglobin 9.8 g/dl (14.0-18.0); Imm Gran Abs Auto 0.05 X10*3/uL (0.00-0.03); Imm Gran Pct Auto 0.5 % (0.0-0.4); Lymphocytes Percent Auto 10.3 % (20-40); Mean Corpuscular HGB Conc 33.8 g/dl (31.0-36.0); Mean Corpuscular Hemoglobin 28.9 pg (27.0-33.0); Mean Corpuscular Volume 85.5 fL (80.0-98.0); Monocytes Absolute Auto 0.5 X10*3/uL (0.1-1.2); Monocytes Percent Auto 4.7 % (2-11); Neutrophils Absolute Auto 8.3 x10*3/uL (2.0-8.3); Neutrophils Percent Auto 83.7 % (45-73); Platelet Count 233 X10*3/uL (160-400); Red Blood Count 3.39 X10*6/uL (4.60-5.80); Red Cell Distribution Width 16.3 % (11.0-16.0)
[2024-12-06 07:18] LABS: Alanine Aminotransferase 46 U/L (0-40); Albumin Level 3.5 g/dL (3.5-5.0); Alkaline Phosphatase 491 U/L (39-117); Aspartate Amino Transferase 42 U/L (5-37); Blood Urea Nitrogen 22 mg/dL (9-16); Calcium 8.7 mg/dL (8.4-10.2); Creatinine Clr Calc Pharmacy 46.8; Estimated Glomerular Filt Rate 48; Glucose Fasting 116 mg/dL (60-99); Total Protein 6.6 g/dL (6.5-8.0)
[2024-12-06 07:35] LABS: Anion Gap 14 (12-20); Carbon Dioxide 26 mmol/L (22-29); Chloride 101 mmol/L (96-108); Potassium 3.5 mmol/L (3.3-5.1); Sodium 137 mmol/L (135-145)
[2024-12-06 07:45] LABS: Glucose, Whole Blood 99 mg/dL (60-115)
[2024-12-06 07:58] VITALS: BP 140/59; PULSE 66; RESP 17; TEMP 36.7; O2SAT 91
--- NOTE | 2024-12-06 08:13 | HO.PM.IMPN ---
Subjective Subjective Date of Service: 12/06/24 Interval History: Seen in follow-up for weakness/CHF Interval history: Physical Exam Vital Signs: Vital Signs: Last Vital Signs Temp 98.0 F 12/06/24 07:58 Pulse 66 12/06/24 07:58 Resp 17 12/06/24 07:58 BP 140/59 H 12/06/24 07:58 Pulse Ox 91 L 12/06/24 07:58 O2 Del Method Room Air 12/06/24 07:58 BMI result Body Mass Index 27.5 Objective Data Active Medications Acetaminophen (Acetaminophen 325 Mg Tablet) 650 mg PO Q6H PRN PRN Reason: Pain, Mild 1-3,fever,headache Albuterol/Ipratropium (Albuterol/Iprat 2.5/0.5mg 3 Ml Ampul.Neb) 3 ml INHALE Q4H PRN PRN Reason: Shortness of Breath/Wheezing Apixaban (Apixaban 2.5 Mg Tablet) 2.5 mg PO BID [facility] Last Admin: 12/05/24 20:40 Dose: 2.5 mg Documented By: AALIYAH Benzonatate (Benzonatate 100 Mg Capsule) 100 mg PO TID PRN PRN Reason: Cough Calcium Carbonate (Calcium Carbonate 750 Mg Tab.Chew) 750 mg PO Q4H PRN PRN Reason: Heartburn Dextrose (Dextrose 50 % 25 Gm/50 Ml Syringe) 25 gm IVPUSH Q15M PRN; Protocol PRN Reason: per Hypoglycemia Standing Ord. Furosemide (Furosemide 40 Mg/4 Ml Vial) 40 mg IVPUSH DAILY [facility]; Protocol Last Admin: 12/05/24 08:52 Dose: 40 mg Documented By: JODY Glucose (Glucose Gel 15 Gm Gel..Gram.) 15 gm PO Q15M PRN; Protocol PRN Reason: per Hypoglycemia Standing Ord. Insulin Human Lispro (Insulin Lispro 100 Unit/Ml 3 Ml Vial) 0 unit SUBCUT QIDACHS [facility]; Protocol Last Admin: 12/06/24 07:45 Dose: Not Given Documented By: BELINDA Non-Admin Reason: No Insulin Coverage Magnesium Hydroxide (Milk Of Magnesia 30 Ml Oral.Susp) 30 ml PO DAILY PRN PRN Reason: Constipation Melatonin (Melatonin 3 Mg Tablet) 6 mg PO BEDTIME PRN PRN Reason: Insomnia Sodium Chloride (0.9 % Sodium Chloride Flush 3 Ml Syringe) 3 ml IVFLUSH QSHIFT [facility] Last Admin: 12/06/24 03:10 Dose: Not Given Documented By: AALIYAH Non-Admin Reason: IV Running Labs 12/06/24 06:22 12/06/24 06:22 Labs: Laboratory Results - last 24 hr 12/05/24 12/05/24 12/05/24 11:26 15:39 20:40 MCV MCH MCHC RDW Plt Count MPV Immature Gran % (Auto) Neut % (Auto) Lymph % (Auto) [place] % (Auto) Eos % (Auto) Baso % (Auto) Lymph # (Auto) [place] # (Auto) Eos # (Auto) Baso # (Auto) Abs Immat Gran (auto) Absolute Neuts (auto) Absolute Nucleated RBC Nucleated RBC % (auto) Anion Gap Estim Creat Clear Calc Estimated GFR POC Glucose 117 H 99 119 H Fasting Glucose Calcium Total Bilirubin AST ALT Alkaline Phosphatase Total Protein Albumin 12/06/24 12/06/24 06:22 07:41 MCV 85.5 MCH 28.9 MCHC 33.8 RDW 16.3 H Plt Count 233 MPV 9.0 L Immature Gran % (Auto) 0.5 H Neut % (Auto) 83.7 H Lymph % (Auto) 10.3 L [place] % (Auto) 4.7 Eos % (Auto) 0.6 Baso % (Auto) 0.2 Lymph # (Auto) 1.0 L [place] # (Auto) 0.5 Eos # (Auto) 0.1 Baso # (Auto) 0.0 Abs Immat Gran (auto) 0.05 H Absolute Neuts (auto) 8.3 Absolute Nucleated RBC 0.000 Nucleated RBC % (auto) 0.0 Anion Gap 14 Estim Creat Clear Calc 46.8 Estimated GFR 48 POC Glucose 99 Fasting Glucose 116 H Calcium 8.7 Total Bilirubin 1.0 AST 42 H ALT 46 H Alkaline Phosphatase 491 H Total Protein 6.6 Albumin 3.5 Assessment and Plan (1) Leg swelling: Status: Acute (2) Anemia in chronic kidney disease (CKD): Status: Acute (3) Chronic atrial fibrillation: Status: Acute Plan 74-year-old male with a past medical history of HTN, HLD, dm, CAD, CKD, CHF-35-40%, AFib on Eliquis, anemia, hyperparathyroidism, osteoarthritis, memory impairment; recent admission to the hospital for C diff infection; presented to the hospital today with a chief complaint of generalized weakness. Admitted for following Bilateral lower extremity edema- etiology unclear Acute hypoxemic respiratory failure Chronic CHF: -echo 12/05 shows mildly decreased left ventricular systolic function with EF 52% in some hypokinesis of the inferolateral wall and basal inferior segment, no valvular pathology -Cardiology does not feel failure rather hypoalbuminemic state. Can continue lasix 40mg daily -remains significantly overloaded despite albumin x4 -became hypoxic to 88% on RA, placed on 2L 12/06. Repeat CXR showed small right-sided pleural effusion -right upper quadrant ultrasound did not reveal any perihepatic fluid as was previously seen s/p percutaneous drainage 11/23 -per Cardiology, check chest CT and CT of the abdomen/pelvis -Daily weights and I's and o's -Cardiology consult appreciated -BNP 430 --> 973 Diabetes acceptable control on current therapies lispro correctional scale Adjust as indicated CKD baseline follow renal/divalents Recent C diff infection complete vancomycin as ordered Persistent AFib acceptable rate control adjust as indicated suboptimally anticoagulated. Increase Eliquis to 5 mg twice daily Persistent abdominal pain CT abdomen/pelvis pending consult as appropriate Acute transaminitis Etiology unclear Repeat CT abdomen/pelvis pending Follow liver panel Eliquis Full code Ongoing inpatient stay due to hypoxic respiratory failure and significant volume overload of unclear etiology Quality Stroke Does the patient have a stroke diagnosis?: No VTE Prior VTE?: No VTE Risk Level:: Medical - moderate - high VTE Device Contraindication: Treatment Not Indicated VTE Drug Contraindication: N/A - Med Ordered
[2024-12-06] MEDS: Furosemide 40 MG/4 ML VIAL IVPUSH (08:22)
[2024-12-06] MEDS: 0.9 % Sodium Chloride Flush 3 ML SYRINGE IVFLUSH ×2 (08:22→19:45)
[2024-12-06] MEDS: Apixaban 2.5 MG TABLET PO (08:22)
[2024-12-06 11:41] LABS: Glucose, Whole Blood 106 mg/dL (60-115)
[2024-12-06 12:00] VITALS: BP 158/80; PULSE 82; RESP 25; TEMP 37.1; O2SAT 87
[2024-12-06 12:53] LABS: B Type Natriuretic Peptide 973 pg/mL (<100)
[2024-12-06 16:00] VITALS: BP 152/70; PULSE 94; RESP 18; TEMP 36.9; O2SAT 95
[2024-12-06 16:13] LABS: Glucose, Whole Blood 124 mg/dL (60-115)
[2024-12-06 19:33] LABS: Glucose, Whole Blood 142 mg/dL (60-115)
[2024-12-06] MEDS: Apixaban 5 MG TABLET PO (19:45)
[2024-12-06] MEDS: Melatonin 3 MG TABLET 6 MG PO (19:45)
[2024-12-06] MEDS: Benzonatate 100 MG CAPSULE PO (19:45)
[2024-12-06 20:00] VITALS: BP 140/80; PULSE 87; RESP 18; TEMP 37.7; O2SAT 96
[2024-12-07] VITALS: BP 145/85; PULSE 90; RESP 20; TEMP 37.3; O2SAT 93
[2024-12-07 04:00] VITALS: BP 179/86; PULSE 81; RESP 18; TEMP 37.1; O2SAT 94
[2024-12-07 06:34] LABS: Anion Gap 12 (12-20); Blood Urea Nitrogen 37 mg/dL (9-16); Calcium 8.2 mg/dL (8.4-10.2); Carbon Dioxide 26 mmol/L (22-29); Chloride 102 mmol/L (96-108); Creatinine Clr Calc Pharmacy 49.2; Estimated Glomerular Filt Rate 51; Glucose Random 106 mg/dL (60-115); Potassium 3.4 mmol/L (3.3-5.1); Sodium 137 mmol/L (135-145)
[2024-12-07 06:43] LABS: B Type Natriuretic Peptide 1409 pg/mL (<100)
[2024-12-07 07:27] LABS: Glucose, Whole Blood 98 mg/dL (60-115)
[2024-12-07 08:00] VITALS: BP 164/75; PULSE 92; RESP 20; TEMP 37.1; O2SAT 94
[2024-12-07] MEDS: Apixaban 5 MG TABLET PO ×2 (08:27→20:34)
[2024-12-07] MEDS: Furosemide 40 MG/4 ML VIAL IVPUSH (08:28)
[2024-12-07] MEDS: 0.9 % Sodium Chloride Flush 3 ML SYRINGE IVFLUSH ×2 (08:28→20:35)
--- NOTE | 2024-12-07 09:30 | P.PNIM_ITS ---
Subjective Subjective Date of Service: 12/07/24 Interval History: Follow up CHF Reports feeling unwell Physical Exam 2 Vital Signs: Vital Signs: Last Vital Signs Temp 98.7 F 12/07/24 08:00 Pulse 92 12/07/24 08:00 Resp 20 12/07/24 08:00 BP 164/75 H 12/07/24 08:00 Pulse Ox 94 12/07/24 08:00 O2 Del Method Nasal Cannula 12/07/24 08:00 O2 Flow Rate 1.5 12/07/24 08:00 BMI result Body Mass Index 27.5 Appearing in no acute distress lung sounds are clear to auscultation heart regular rate rhythm, clear S1, S2 positive bowel sounds, abdomen is soft, nontender neuro patient is alert x3, no focal deficits Objective Data Active Medications Acetaminophen (Acetaminophen 325 Mg Tablet) 650 mg PO Q6H PRN PRN Reason: Pain, Mild 1-3,fever,headache Albuterol/Ipratropium (Albuterol/Iprat 2.5/0.5mg 3 Ml Ampul.Neb) 3 ml INHALE Q4H PRN PRN Reason: Shortness of Breath/Wheezing Apixaban (Apixaban 5 Mg Tablet) 5 mg PO BID [facility] Last Admin: 12/07/24 08:27 Dose: 5 mg Documented By: BELINDA Benzonatate (Benzonatate 100 Mg Capsule) 100 mg PO TID PRN PRN Reason: Cough Last Admin: 12/06/24 19:45 Dose: 100 mg Documented By: HIEU Calcium Carbonate (Calcium Carbonate 750 Mg Tab.Chew) 750 mg PO Q4H PRN PRN Reason: Heartburn Dextrose (Dextrose 50 % 25 Gm/50 Ml Syringe) 25 gm IVPUSH Q15M PRN; Protocol PRN Reason: per Hypoglycemia Standing Ord. Furosemide (Furosemide 40 Mg/4 Ml Vial) 40 mg IVPUSH DAILY [facility]; Protocol Last Admin: 12/07/24 08:28 Dose: 40 mg Documented By: BELINDA Glucose (Glucose Gel 15 Gm Gel..Gram.) 15 gm PO Q15M PRN; Protocol PRN Reason: per Hypoglycemia Standing Ord. Insulin Human Lispro (Insulin Lispro 100 Unit/Ml 3 Ml Vial) 0 unit SUBCUT QIDACHS [facility]; Protocol Last Admin: 12/07/24 07:30 Dose: Not Given Documented By: BELINDA Non-Admin Reason: No Insulin Coverage Magnesium Hydroxide (Milk Of Magnesia 30 Ml Oral.Susp) 30 ml PO DAILY PRN PRN Reason: Constipation Melatonin (Melatonin 3 Mg Tablet) 6 mg PO BEDTIME PRN PRN Reason: Insomnia Last Admin: 12/06/24 19:45 Dose: 6 mg Documented By: HIEU Sodium Chloride (0.9 % Sodium Chloride Flush 3 Ml Syringe) 3 ml IVFLUSH QSHIFT [facility] Last Admin: 12/07/24 08:28 Dose: 3 ml Documented By: BELINDA Labs 12/06/24 06:22 12/07/24 05:53 Labs: Laboratory Results - last 24 hr 12/06/24 12/06/24 12/06/24 11:31 12:18 16:03 Anion Gap Estim Creat Clear Calc Estimated GFR POC Glucose 106 124 H Random Glucose Calcium B-Natriuretic Peptide 973 H 12/06/24 12/07/24 12/07/24 19:29 05:53 07:18 Anion Gap 12 Estim Creat Clear Calc 49.2 Estimated GFR 51 POC Glucose 142 H 98 Random Glucose 106 Calcium 8.2 L B-Natriuretic Peptide 1409 H Assessment and Plan (1) Leg swelling: Status: Acute (2) Anemia in chronic kidney disease (CKD): Status: Acute (3) Chronic atrial fibrillation: Status: Acute Plan 74-year-old male with a past medical history of HTN, HLD, dm, CAD, CKD, CHF-35-40%, AFib on Eliquis, anemia, hyperparathyroidism, osteoarthritis, memory impairment; recent admission to the hospital for C diff infection; presented to the hospital today with a chief complaint of generalized weakness. Bilateral lower extremity edema- etiology unclear Acute hypoxemic respiratory failure Chronic CHF echo 12/05 shows mildly decreased left ventricular systolic function with EF 52% in some hypokinesis of the inferolateral wall and basal inferior segment, no valvular pathology Daily weights and I's and o's Cardiology consult>Cardiology does not feel failure rather hypoalbuminemic state. Can continue lasix 40mg daily, check chest CT and CT of the abdomen/pelvis BNP 430>[id number] on 1.5 Lnc o2, Keep sat >90% Diabetes 2 ss, ada diet CKD3 baseline follow renal/divalents Recent C diff infection completed vancomycin as ordered Persistent AFib acceptable rate control adjust as indicated Increased Eliquis to 5 mg twice daily Persistent abdominal pain CT abdomen/pelvis pending consult as appropriate Acute transaminitis Etiology unclear Repeat CT abdomen/pelvis pending Follow liver panel Eliquis Full code Quality Stroke Does the patient have a stroke diagnosis?: No VTE Prior VTE?: No VTE Risk Level:: Medical - moderate - high VTE Device Contraindication: Treatment Not Indicated VTE Drug Contraindication: N/A - Med Ordered
--- NOTE | 2024-12-07 10:53 | PM.PNCARD ---
Subjective Subjective Date of Service: 12/07/24 Interval history: Seen around 8:30am. He states that he is feeling okay. He denies any active complaints like angina or shortness of breath. He seems to be comfortable in his bed. Review of Systems Review of Systems Denies chest pain Denies shortness of breath Denies nausea vomiting diarrhea Admits to abdominal pain Denies fever chills Yes all other systems are reviewed and are negative Constitutional: Reports as per HPI and Reports no additional constitutional complaints Eyes: Reports as per HPI and Denies no additional eye complaints Denies system reviewed and no additional complaints, except as documented and Reports as per HPI Cardiovascular: Reports as per HPI, Reports no additional cardiovascular complaints, Denies acrocyanosis, Denies cool extremities, Denies chest pain, Denies leg edema, Denies lightheadedness, Denies palpitations and Denies dyspnea Respiratory: Reports as per HPI, Denies no additional respiratory complaints and Denies dyspnea Gastrointestinal: Reports as per HPI and Denies no additional gastrointestinal complaints Genitourinary: Reports no additional male genitourinary complaints and Reports as per HPI Musculoskeletal: Reports no additional musculoskeletal complaints and Reports as per HPI Skin/Breast: Reports system reviewed and no additional complaints, except as docu Reports system reviewed and no additional complaints, except as documented and Reports as per HPI Psychiatric: Reports no additional psychiatric complaints and Reports as per HPI Endocrine: Reports no additional endocrine complaints, Reports as per HPI and Denies palpitations Hematologic/Lymphatic: Reports no additional hematologic/lymphatic complaints and Reports as per HPI Allergic/Immunologic: Reports no additional allergic/immunologic complaints and Reports as per HPI Physical Exam Vital Signs: Last Vital Signs Temp 98.7 F 12/07/24 08:00 Pulse 92 12/07/24 08:00 Resp 20 12/07/24 08:00 BP 164/75 H 12/07/24 08:00 Pulse Ox 94 12/07/24 08:00 O2 Del Method Nasal Cannula 12/07/24 08:00 O2 Flow Rate 1.5 12/07/24 08:00 BMI result Body Mass Index 27.5 Const General: comfortable and no acute distress Orientation/consciousness: patient oriented x3 HEENT Other: Unremarkable Head: Yes normal to inspection Neck Neck: Yes normal visual inspection Chest Chest palpation & inspection: normal inspection of the chest Resp Auscultation: diminished lung sounds Cardio Palpation: normal PMI Heart sounds: S1 normal heart sound present, S2 normal heart sound present, no gallops, no murmurs and no rubs GI Other: Right upper quadrant tenderness Palpation (GI): Soft to palpation Back/Spine/Pelvis Other: unremarkable Skin General skin exam: no rashes or lesions noted Neuro General: patient oriented x3 Extrem Other: Trace to 1+ edema lower extremities Psych Mental Status: mental status grossly normal Objective Labs and Meds 12/06/24 06:22 12/07/24 05:53 Lab results: Laboratory Results - last 24 hr 12/06/24 12/06/24 12/06/24 11:31 12:18 16:03 Sodium Potassium Chloride Carbon Dioxide Anion Gap BUN Creatinine Estim Creat Clear Calc Estimated GFR POC Glucose 106 124 H Random Glucose Calcium B-Natriuretic Peptide 973 H 12/06/24 12/07/24 12/07/24 19:29 05:53 07:18 Sodium 137 Potassium 3.4 Chloride 102 Carbon Dioxide 26 Anion Gap 12 BUN 37 H Creatinine 1.38 Estim Creat Clear Calc 49.2 Estimated GFR 51 POC Glucose 142 H 98 Random Glucose 106 Calcium 8.2 L B-Natriuretic Peptide 1409 H Progress Note: A&P Assessment and plan (1) Leg swelling: Status: Acute (2) Chronic atrial fibrillation: Status: Acute Plan Data summarized. Abnormal LFTs. Unremarkable high sensitivity troponin. Cardiac BNP is 1409 today. It was lower before. Low serum albumin but improved after albumin infusions. Echocardiogram with LVEF of 52%. Inferolateral wall/basal inferior wall thought to be hypokinetic. Overall, I am not entirely clear as to etiology of his symptoms. Low albumin can certainly cause leg swelling. His cardiac BNP are now on the higher side and hence some heart failure components could be contributory. This was previously much lower. However, input/output charting shows that he is-5 L and that he has put out 6.9 L total. Hence it just does not add up that cardiac BNP is going up while he is putting out more urine. Await formal reading from CT scan chest and abdomen. He has been on empiric diuretics and okay to continue with that while workup is in progress. Renal function seems stable. We will follow up with you tomorrow. Discussed with Amelia Mcgraw. Time Spent With Patient Time: Total time managing care of this patient today ____ minutes. Progress Note: Quality Stroke Does the patient have a stroke diagnosis?: No Procedures Date of Service Date of Service: 12/07/24
[2024-12-07 11:52] LABS: Glucose, Whole Blood 107 mg/dL (60-115)
[2024-12-07 12:00] VITALS: BP 153/68; PULSE 77; RESP 20; TEMP 37.1; O2SAT 97
[2024-12-07 15:32] VITALS: BP 158/77; PULSE 84; RESP 18; TEMP 37; O2SAT 93
[2024-12-07 15:52] LABS: Glucose, Whole Blood 128 mg/dL (60-115)
[2024-12-07 19:59] VITALS: BP 160/77; PULSE 80; RESP 16; TEMP 36.7; O2SAT 95
[2024-12-07 20:13] LABS: Glucose, Whole Blood 103 mg/dL (60-115)
[2024-12-08] VITALS: BP 157/74; PULSE 92; RESP 16; TEMP 36.8; O2SAT 99
[2024-12-08 04:00] VITALS: BP 166/77; PULSE 80; RESP 17; TEMP 36.9; O2SAT 98
[2024-12-08 06:00] VITALS: BMI 27.3
[2024-12-08 07:06] LABS: Glucose, Whole Blood 92 mg/dL (60-115)
[2024-12-08 07:18] LABS: Anion Gap 14 (12-20); Blood Urea Nitrogen 55 mg/dL (9-16); Calcium 8.4 mg/dL (8.4-10.2); Carbon Dioxide 26 mmol/L (22-29); Chloride 103 mmol/L (96-108); Creatinine Clr Calc Pharmacy 43.7; Estimated Glomerular Filt Rate 44; Glucose Random 98 mg/dL (60-115); Potassium 3.1 mmol/L (3.3-5.1); Sodium 140 mmol/L (135-145)
[2024-12-08 07:22] LABS: B Type Natriuretic Peptide 434 pg/mL (<100)
[2024-12-08 07:25] VITALS: BP 163/77; PULSE 86; RESP 20; TEMP 36.7; O2SAT 98
[2024-12-08] MEDS: 0.9 % Sodium Chloride Flush 3 ML SYRINGE IVFLUSH ×2 (08:43→22:22)
[2024-12-08] MEDS: Potassium Chloride ER 20 MEQ TAB.ER.PRT 40 MEQ PO (08:44)
[2024-12-08] MEDS: amLODIPine Besylate 5 MG TABLET PO (08:44)
[2024-12-08] MEDS: Apixaban 5 MG TABLET PO ×2 (08:44→22:20)
--- NOTE | 2024-12-08 09:24 | PM.CNNEP ---
History of Present Illness Reason for Consult Consult date: 12/08/24 Chief Complaint Chief complaint: CHF History of Present Illness Narrative: Patient is a 74 y/o male with a medical history of CKD, follows Dr Guerin outpatient; other medical history includes HTN, HLD, DM, CA, CKD, CHF, afib on eliquis, anemia, memory impairment. Was admitted 12/04 for generalized weakness. Nephrology consulted for proteinuria. patient is awake and alert at bedside. denies shortness of breath, states breathing is comfortable (on nasal cannula) deneis chest pain reports some ongoing right lower abdominal pain states he is urinating comfortably, moving bowels states LE swelling improved. RUQ US shows unremarkable right kidney without hydronephrosis. creatinine 1.55 (12/07 1.38, 12/06 1.45, 12/05 1.55, 12/04 1.49, 11/25 1.94) potassium 3.1 patient's SBP 150s-160s; home lisinopril 40mg currently held. Patient denies other new symptoms/concerns. Review of Systems Constitutional: Denies anorexia, Denies fever(s) and Denies weakness Eyes: Denies blurry vision Cardiovascular: Denies no additional cardiovascular complaints, Denies chest pain, Denies leg edema, Denies lightheadedness and Denies dyspnea Respiratory: Reports no additional respiratory complaints, Reports cough and Denies dyspnea Gastrointestinal: Denies diarrhea Genitourinary: Denies hematuria, Denies dysuria, Denies flank pain and Denies urinary hesitancy Musculoskeletal: Denies tingling Skin/Breast: Denies rash Denies focal weakness, Denies tingling, Denies tremor(s) and Denies weakness [facility] Past Medical History Medical History (Updated 12/08/24 @ 09:41 by Arielle White, HUE, [employer]) CKD (chronic kidney disease) Hypertension CHF (congestive heart failure) CKD (chronic kidney disease) stage 4, GFR 15-29 ml/min Obesity (BMI 30.0-34.9) Cardiomyopathy Stroke Chronic atrial fibrillation CKD (chronic kidney disease) Former smoker Depression Diabetes High cholesterol Family History Family History Father No problems noted. Mother Diabetes Hypertension Cancer Son No problems noted. Son No problems noted. Son No problems noted. Daughter No problems noted. Daughter No problems noted. Surgical History Surgical History History of aneurysm History of shoulder surgery Social History Social History Household Members: None Household Members Other:: Housing: Apartment Do you presently have visiting nurse or other home services: Yes Alcohol intake: never Patient Tobacco Use Status: Former Tobacco user Smoked in Last 30 Days: No Use of substances other than those prescribed or required for medical reasons: No Substance Use Type: Marijuana Currently Displaying Signs/Symptoms of Drug Intoxication Withdrawal: No Have you been hit, kicked, punched, or otherwise hurt by someone within the past year? If so, by whom?: No Advance Directives: No Advance Directives Information Provided: Yes Do you have a plan to hurt others: No Plan service: No Current occupational status: disabled Meds Allergies Allergy/AdvReac Type Severity Reaction Status Date / Time No Known Allergies Allergy Verified 12/04/24 20:36 [No Known Allergies*] Active Medications: Current Medications Acetaminophen (Acetaminophen 325 Mg Tablet) 650 mg PO Q6H PRN PRN Reason: Pain, Mild 1-3,fever,headache Albuterol/Ipratropium (Albuterol/Iprat 2.5/0.5mg 3 Ml Ampul.Neb) 3 ml INHALE Q4H PRN PRN Reason: Shortness of Breath/Wheezing Amlodipine Besylate (Amlodipine Besylate 5 Mg Tablet) 5 mg PO DAILY [facility]; Protocol Last Admin: 12/08/24 08:44 Dose: 5 mg Apixaban (Apixaban 5 Mg Tablet) 5 mg PO BID [facility] Last Admin: 12/08/24 08:44 Dose: 5 mg Benzonatate (Benzonatate 100 Mg Capsule) 100 mg PO TID PRN PRN Reason: Cough Last Admin: 12/06/24 19:45 Dose: 100 mg Calcium Carbonate (Calcium Carbonate 750 Mg Tab.Chew) 750 mg PO Q4H PRN PRN Reason: Heartburn Dextrose (Dextrose 50 % 25 Gm/50 Ml Syringe) 25 gm IVPUSH Q15M PRN; Protocol PRN Reason: per Hypoglycemia Standing Ord. Glucose (Glucose Gel 15 Gm Gel..Gram.) 15 gm PO Q15M PRN; Protocol PRN Reason: per Hypoglycemia Standing Ord. Insulin Human Lispro (Insulin Lispro 100 Unit/Ml 3 Ml Vial) 0 [facility]; Protocol Last Admin: 12/08/24 07:49 Dose: Not Given Magnesium Hydroxide (Milk Of Magnesia 30 Ml Oral.Susp) 30 ml PO DAILY PRN PRN Reason: Constipation Melatonin (Melatonin 3 Mg Tablet) 6 mg PO BEDTIME PRN PRN Reason: Insomnia Last Admin: 12/06/24 19:45 Dose: 6 mg Sodium Chloride (0.9 % Sodium Chloride Flush 3 Ml Syringe) 3 ml IVFLUSH [facility] Last Admin: 12/08/24 08:43 Dose: 3 ml Home Medications ?Medication ?Instructions ?Recorded ?Confirmed ?Last Taken ?Type blood-glucose meter #1 ea 05/14/20 01/14/24 Unknown History lancets #100 ea 05/14/20 01/14/24 Unknown History atorvastatin 40 mg tablet 40 mg PO DAILY 12/19/22 12/05/24 11/11/24 History lisinopril 40 mg tablet 40 mg PO DAILY 10/20/24 12/05/24 11/11/24 History apixaban 2.5 mg tablet (Eliquis) 2.5 mg PO BID 12/05/24 12/05/24 Unknown History Physical Exam Vital Signs: Last Vital Signs Temp 98.1 F 12/08/24 07:25 Pulse 86 12/08/24 07:25 Resp 20 12/08/24 07:25 BP 163/77 H 12/08/24 07:25 Pulse Ox 98 12/08/24 07:25 O2 Del Method Nasal Cannula 12/08/24 07:25 O2 Flow Rate 1.5 12/08/24 07:25 BMI result Body Mass Index 27.3 Const General: comfortable and no acute distress Orientation/consciousness: oriented to person, oriented to place and oriented to time Neck Neck: Yes no JVD Resp Effort & Inspection: able to speak in complete sentences Auscultation: clear to auscultation bilaterally Cardio Jugular venous distension: no JVD Rate: regular rate Heart sounds: S1 normal heart sound present, S2 normal heart sound present and Murmur heart sound present GI Palpation (GI): Soft to palpation Rectal Exam - Male: No tenderness General: Yes no CVA tenderness Back/Spine/Pelvis Back: no CVA tenderness Skin Rashes: no rashes Neuro General: oriented to person, oriented to place and oriented to time Extrem General: Yes normal to inspection, No edema and No pedal edema Results Lab Results 12/06/24 06:22 12/08/24 06:34 Lab results: Chemistry 12/06/24 12/07/24 12/08/24 06:22 05:53 06:34 Sodium 137 137 140 Potassium 3.5 D 3.4 3.1 L Carbon Dioxide BUN 22 H 37 H 55 H Creatinine 1.45 H 1.38 1.55 H Calcium 8.7 8.2 L 8.4 Hematology 12/06/24 06:22 WBC 10.0 Hgb 9.8 L Plt Count 233 Assessment and Plan (1) Hypertension: Qualifiers: Hypertension type: unspecified Qualified Code(s): I10 - Essential (primary) hypertension Status: Acute (2) CKD (chronic kidney disease): Qualifiers: Chronic kidney disease stage: stage 3 (moderate) Chronic kidney disease stage 3 subtype: stage 3a (GFR 45-59) Qualified Code(s): N18.31 - Chronic kidney disease, stage 3a Status: Acute Plan Patient with baseline CKD and HTN Given creatinine currently at baseline, recommend re-starting lisinopril at 2.5mg daily, with plan to continue to titrate up if creatinine remains stable. Recommend avoiding nephrotoxins, including NSAIDs Monitor I&O while inpatient, daily renal function replace potassium as needed will continue to follow, will arrange for outpatient follow up with nephrology upon discharge. Procedures Date of Service Date of Service: 12/08/24
--- NOTE | 2024-12-08 10:07 | PM.PNCARD ---
Subjective Subjective Date of Service: 12/08/24 Interval history: Seen examined at bedside. Feeling better. Minimal edema today. Physical Exam Vital Signs: Last Vital Signs Temp 98.1 F 12/08/24 07:25 Pulse 86 12/08/24 07:25 Resp 20 12/08/24 07:25 BP 163/77 H 12/08/24 07:25 Pulse Ox 98 12/08/24 07:25 O2 Del Method Nasal Cannula 12/08/24 07:25 O2 Flow Rate 1.5 12/08/24 07:25 BMI result Body Mass Index 27.3 GENERAL APPEARANCE: in no acute distress, pleasant. NECK: no carotid bruit, + jugular venous distention. SKIN: no suspicious lesions, warm and dry. HEART: no murmurs, regular rate and rhythm. LUNGS: clear to auscultation bilaterally. ABDOMEN: soft, nontender. EXTREMITIES: Mild edema. PERIPHERAL PULSES: equal. NEUROLOGIC: No gross deficits, AAO X 3 Objective Labs and Meds 12/06/24 06:22 12/08/24 06:34 Lab results: Laboratory Results - last 24 hr 12/07/24 12/07/24 12/07/24 11:47 15:49 20:03 Sodium Potassium Chloride Carbon Dioxide Anion Gap BUN Creatinine Estim Creat Clear Calc Estimated GFR POC Glucose 107 128 H 103 Random Glucose Calcium B-Natriuretic Peptide 12/08/24 12/08/24 06:34 07:00 Sodium 140 Potassium 3.1 L Chloride 103 Carbon Dioxide 26 Anion Gap 14 BUN 55 H Creatinine 1.55 H Estim Creat Clear Calc 43.7 Estimated GFR 44 POC Glucose 92 Random Glucose 98 Calcium 8.4 B-Natriuretic Peptide 434 H Progress Note: A&P Assessment and plan (1) Hypertension: Status: Acute (2) CKD (chronic kidney disease): Status: Acute (3) CHF (congestive heart failure): Status: Acute Plan [age] year gentleman with the son cholecystitis and C diff presenting with edema shortness of breath. It appears clinically was volume overloaded and was diuresed. His BNP levels are improving. Overall volume status is also getting better. I think he is still needs further diuresis and should stay on IV diuretics today. Blood pressure is elevated. His kidney function is at baseline. His lisinopril should be resumed. We will follow along with you. Thank you for allowing me to participate in the care of your patient. Please feel free to contact me if you have any questions. Time Spent With Patient Time: Total time managing care of this patient today ____ minutes. Progress Note: Quality Stroke Does the patient have a stroke diagnosis?: No Procedures Date of Service Date of Service: 12/08/24
[2024-12-08 11:01] VITALS: BP 145/74; PULSE 87; RESP 20; TEMP 37; O2SAT 98
[2024-12-08 11:03] LABS: Glucose, Whole Blood 110 mg/dL (60-115)
[2024-12-08] MEDS: lisinopriL 40 MG TABLET PO (12:05)
--- NOTE | 2024-12-08 12:24 | HO.PM.IMPN ---
Subjective Subjective Date of Service: 12/08/24 Interval History: Follow up CHF feeling better today Physical Exam Vital Signs: Vital Signs: Last Vital Signs Temp 98.6 F 12/08/24 11:01 Pulse 87 12/08/24 11:01 Resp 20 12/08/24 11:01 BP 145/74 H 12/08/24 11:01 Pulse Ox 98 12/08/24 11:01 O2 Del Method Nasal Cannula 12/08/24 11:01 O2 Flow Rate 2 12/08/24 11:01 BMI result Body Mass Index 27.3 Appearing in no acute distress lung sounds are clear to auscultation heart regular rate rhythm, clear S1, S2 positive bowel sounds, abdomen is soft, nontender neuro patient is alert x3, no focal deficits Objective Data Active Medications Acetaminophen (Acetaminophen 325 Mg Tablet) 650 mg PO Q6H PRN PRN Reason: Pain, Mild 1-3,fever,headache Albuterol/Ipratropium (Albuterol/Iprat 2.5/0.5mg 3 Ml Ampul.Neb) 3 ml INHALE Q4H PRN PRN Reason: Shortness of Breath/Wheezing Apixaban (Apixaban 5 Mg Tablet) 5 mg PO BID [facility] Last Admin: 12/08/24 08:44 Dose: 5 mg Documented By: BERENICE Benzonatate (Benzonatate 100 Mg Capsule) 100 mg PO TID PRN PRN Reason: Cough Last Admin: 12/06/24 19:45 Dose: 100 mg Documented By: HIEU Calcium Carbonate (Calcium Carbonate 750 Mg Tab.Chew) 750 mg PO Q4H PRN PRN Reason: Heartburn Dextrose (Dextrose 50 % 25 Gm/50 Ml Syringe) 25 gm IVPUSH Q15M PRN; Protocol PRN Reason: per Hypoglycemia Standing Ord. Glucose (Glucose Gel 15 Gm Gel..Gram.) 15 gm PO Q15M PRN; Protocol PRN Reason: per Hypoglycemia Standing Ord. Insulin Human Lispro (Insulin Lispro 100 Unit/Ml 3 Ml Vial) 0 unit SUBCUT QIDACHS [facility]; Protocol Last Admin: 12/08/24 11:54 Dose: Not Given Documented By: BERENICE Non-Admin Reason: No Insulin Coverage Lisinopril (Lisinopril 40 Mg Tablet) 40 mg PO DAILY [facility]; Protocol Last Admin: 12/08/24 12:05 Dose: 40 mg Documented By: BERENICE Magnesium Hydroxide (Milk Of Magnesia 30 Ml Oral.Susp) 30 ml PO DAILY PRN PRN Reason: Constipation Melatonin (Melatonin 3 Mg Tablet) 6 mg PO BEDTIME PRN PRN Reason: Insomnia Last Admin: 12/06/24 19:45 Dose: 6 mg Documented By: HIEU Sodium Chloride (0.9 % Sodium Chloride Flush 3 Ml Syringe) 3 ml IVFLUSH QSHIFT SHAUNNA Last Admin: 12/08/24 08:43 Dose: 3 ml Documented By: BERENICE Labs 12/06/24 06:22 12/08/24 06:34 Labs: Laboratory Results - last 24 hr 12/07/24 12/07/24 12/08/24 15:49 20:03 06:34 Anion Gap 14 Estim Creat Clear Calc 43.7 Estimated GFR 44 POC Glucose 128 H 103 Random Glucose 98 Calcium 8.4 B-Natriuretic Peptide 434 H 12/08/24 12/08/24 07:00 10:49 Anion Gap Estim Creat Clear Calc Estimated GFR POC Glucose 92 110 Random Glucose Calcium B-Natriuretic Peptide Assessment and Plan (1) Leg swelling: Status: Acute (2) Anemia in chronic kidney disease (CKD): Status: Acute (3) Chronic atrial fibrillation: Status: Acute Plan 74-year-old male with a past medical history of HTN, HLD, dm, CAD, CKD, CHF-35-40%, AFib on Eliquis, anemia, hyperparathyroidism, osteoarthritis, memory impairment; recent admission to the hospital for C diff infection; presented to the hospital today with a chief complaint of generalized weakness. Pleural effusion CT showing moderate large right effusion thoracentesis ordered Pneumonia Seen on chest CT no fever or leukocytosis Start Rocephin and azithromycin KELSEY on CKD3 likely secondary to IV lasix, stopped follow BMP HTN discussed with Nephrology Ok to restart home dose of Lisinopril Bilateral lower extremity edema, Acute hypoxemic respiratory failure, Chronic CHF echo 12/05 shows mildly decreased left ventricular systolic function with EF 52% in some hypokinesis of the inferolateral wall and basal inferior segment, no valvular pathology Daily weights and I's and o's Cardiology following>Cardiology does not feel failure rather hypoalbuminemic state. BNP 430>973>1409>434 on 1.5 Lnc o2, Keep sat >90% lasix stopped due to KELSEY and patient euvolemic Diabetes 2 ss, ada diet CKD3 baseline follow renal/divalents Recent C diff infection completed vancomycin as ordered Persistent AFib acceptable rate control adjust as indicated Increased Eliquis to 5 mg twice daily Persistent abdominal pain CT abdomen/pelvis pending consult as appropriate Acute transaminitis Etiology unclear Repeat CT abdomen/pelvis pending Follow liver panel Eliquis Full code Quality Stroke Does the patient have a stroke diagnosis?: No VTE Prior VTE?: No VTE Risk Level:: Medical - moderate - high VTE Device Contraindication: Treatment Not Indicated VTE Drug Contraindication: N/A - Med Ordered
[2024-12-08] MEDS: Azithromycin 500 MG in 0.9 % Sodium Chloride 250 ML 125 MG IV (13:34)
[2024-12-08] MEDS: cefTRIAXone sodium 1 GM VIAL IVPUSH (13:34)
--- NOTE | 2024-12-08 14:22 | HO.WOUND ---
Wound Consult: Initial 74yr old?[place] [facility] - See progress notes and H&P for detailed history.? Wound consult placed for Sacral wound POA.? Patient agreeable to assessment and photo documentation.? Informed by staff patient with frequent reposition refusals. At bedside directly addressed with patient and he was educated on the importance of Turning and repositions and what the concerns are for wound deterioration if he continues to refuse. Patient was agreeable to reposition after education. Sacrum Etiology: ?Unstageable Pressure Injury ?Present on Admission Measurements: 3cm x 2cm x 0.2cm Wound Bed: adherent yellow slough Edges: ? well defined Georgie wound: ?dark red purple nonblanchable tissue No Induration, Fluctuance or Warmth noted Pain: patient reports tenderness Goals of Treatment: ? Off load pressure and triad to aid in autolytic debridement Recommendations: 1. Turn and Reposition every 2 hours and as needed for patient comfort.? Use pillows or wedges to support off loading positions. 2. Off Load all bony prominences with use of pillows and heel boots if needed.? Apply Preventative foams where needed. ? 3. Monitor for incontinence and moisture control, use barrier creams when needed for prevention and treatment. 4. Provide adequate and supplemental nutrition.? 5. Continue low air loss mattress. 6. When applicable maintain blood glucose levels per Providers order. Sacrum - Off Load Pressure with Q2 hr turns and use of pillows - Cleanse with PH balance spray or wipes, pat dry. ?Apply thin layer of Triad to wound bed. Do not remove all of paste between applications as this may cause further skin damage.? Cover with foam dressing to aid in off loading and protection from friction. Change every 3 days and PRN. Re-consult wound care Nurse for wound deterioration or wound changes.
[2024-12-08 14:51] LABS: Alanine Aminotransferase 24 U/L (0-40); Albumin Level 2.7 g/dL (3.5-5.0); Alkaline Phosphatase 322 U/L (39-117); Aspartate Amino Transferase 34 U/L (5-37); Bilirubin Direct 0.4 mg/dL (0.0-0.5); Bilirubin Total 0.9 mg/dL (0.0-1.0); Total Protein 5.9 g/dL (6.5-8.0)
--- NOTE | 2024-12-08 15:24 | MHC.CM.PN ---
Per rounds, pt is not medically cleared for DC, DCP will be determined by further tx and PT eval. Family said they are looking into [facility] and SNF care for him soon after hosp stay.
[2024-12-08 16:00] VITALS: BP 133/63; PULSE 82; RESP 18; TEMP 36.6; O2SAT 99
[2024-12-08 16:28] LABS: Glucose, Whole Blood 107 mg/dL (60-115)
--- NOTE | 2024-12-08 17:09 | MHC.CLN ---
F/U DIET=DIABETIC 2000 KCALS. ENSURE MAX BID (300 KCALS, 60 G PROTEIN) TO PROMOTE WOUND HEALING/SKIN INTEGRITY. PER WOUND RN, UNSTAGEABLE AREA TO SACRUM. PO INTAKE VARIABLE, 0-75% FOLLOW FOR PO INTAKE AND WOUND HEALING.
--- NOTE | 2024-12-08 19:04 | PC.NURSE ---
Patient spent whole shift in bed, refusing to get oob, refusing to be repositioned, patient was able to slightly reposition by himself.
[2024-12-08 19:43] VITALS: BP 140/65; PULSE 87; RESP 17; TEMP 37.1; O2SAT 99
[2024-12-08 20:36] LABS: Glucose, Whole Blood 108 mg/dL (60-115)
[2024-12-09] VITALS (9 sets, daily range): BP systolic 104–149; BP diastolic 57–71; PULSE 77–97; RESP 16–20; TEMP 36.6–37.2; O2SAT 96–100; BMI 27.5
[2024-12-09 07:10] LABS: Glucose, Whole Blood 129 mg/dL (60-115)
[2024-12-09] MEDS: 0.9 % Sodium Chloride Flush 3 ML SYRINGE IVFLUSH ×3 (08:28→20:31)
[2024-12-09] MEDS: lisinopriL 40 MG TABLET PO (08:28)
[2024-12-09] MEDS: Apixaban 5 MG TABLET PO ×2 (08:28→20:30)
[2024-12-09 08:56] LABS: INTERNATIONAL NORM RATIO 2.1 (0.9-1.1); Prothrombin Time 24.4 SEC (10.9-12.4)
[2024-12-09 09:07] LABS: Anion Gap 10 (12-20); Blood Urea Nitrogen 59 mg/dL (9-16); Calcium 8.1 mg/dL (8.4-10.2); Carbon Dioxide 28 mmol/L (22-29); Chloride 106 mmol/L (96-108); Creatinine Clr Calc Pharmacy 45.9; Estimated Glomerular Filt Rate 47; Glucose Random 135 mg/dL (60-115); Potassium 3.6 mmol/L (3.3-5.1); Sodium 140 mmol/L (135-145)
--- NOTE | 2024-12-09 10:23 | P.PNNP_ITS ---
Subjective Subjective Date of Service: 12/09/24 Interval history: Patient is a 74 y/o male with a medical history of CKD, follows Dr Guerin outpatient; admitted 12/04 for generalized weakness. Patient is being treated for pneumonia. Nephrology consulted for proteinuria. patient is awake and alert at bedside. denies shortness of breath, states breathing is comfortable (on nasal cannula) deneis chest pain reports ongoing right lower abdominal pain is improving states he is urinating comfortably, moving bowels denies LE swelling improved. RUQ US shows unremarkable right kidney without hydronephrosis. creatinine 1.48 (12/08 1.55, 12/07 1.38, 12/06 1.45, 12/05 1.55, 12/04 1.49, 11/25 1.94) patient's blood pressures have normalized with initiation of home lisinopril was re-started yesterday at 40mg. Patient denies other new symptoms/concerns. Physical Exam 2 Vital Signs: Vital Signs: Last Vital Signs Temp 98.2 F 12/09/24 07:15 Pulse 87 12/09/24 07:15 Resp 20 12/09/24 07:15 BP 135/64 12/09/24 07:15 Pulse Ox 100 12/09/24 07:15 O2 Del Method Nasal Cannula 12/09/24 07:15 O2 Flow Rate 2 12/09/24 07:15 BMI result Body Mass Index 27.5 Const: General: no acute distress, alert and awake Resp: Effort & Inspection: normal respiratory effort and able to speak in complete sentences Auscultation: clear to auscultation bilaterally Cardio: Rate: regular rate Rhythm: regular rhythm Heart sounds: S1 normal heart sound present and S2 normal heart sound present GI: Palpation (GI): Soft to palpation and Tenderness to palpation present (GI) (mild tenderness to palpation) in the RUQ : General: Yes no CVA tenderness Back/Spine/Pelvis: Back: no CVA tenderness Skin: Rashes: no rashes Extrem: General: No edema Objective Data Labs 12/06/24 06:22 12/09/24 08:26 Labs: Laboratory Results - last 24 hr 12/08/24 12/08/24 12/08/24 06:34 10:49 15:50 PT INR Sodium Potassium Chloride Carbon Dioxide Anion Gap BUN Creatinine Estim Creat Clear Calc Estimated GFR POC Glucose 110 107 Random Glucose Calcium Total Bilirubin 0.9 Direct Bilirubin 0.4 AST 34 ALT 24 Alkaline Phosphatase 322 H Total Protein 5.9 L Albumin 2.7 L 12/08/24 12/09/24 12/09/24 20:32 06:58 08:26 PT 24.4 H D INR 2.1 H Sodium 140 Potassium 3.6 Chloride 106 Carbon Dioxide 28 Anion Gap 10 L BUN 59 H Creatinine 1.48 H Estim Creat Clear Calc 45.9 Estimated GFR 47 POC Glucose 108 129 H Random Glucose 135 H Calcium 8.1 L Total Bilirubin Direct Bilirubin AST ALT Alkaline Phosphatase Total Protein Albumin Procedures Date of Service Date of Service: 12/09/24 Assessment & Plan Assessment and plan (1) Hypertension: Status: Acute (2) CKD (chronic kidney disease): Status: Acute Plan Patient with baseline CKD and HTN Recommend reducing lisinopril dose to 20mg daily given continued drop in blood pressure Recommend avoiding nephrotoxins, including NSAIDs Monitor I&O while inpatient, daily renal function replace potassium as needed will continue to follow, will arrange for outpatient follow up with nephrology upon discharge. Discussed with Dr Norris. Time Spent With Patient Time: Total time managing care of this patient today ____ minutes. Progress Note: Quality Stroke Does the patient have a stroke diagnosis?: No
[2024-12-09 11:16] LABS: Glucose, Whole Blood 122 mg/dL (60-115)
--- NOTE | 2024-12-09 12:30 | HO.PM.IMPN ---
Subjective Subjective Date of Service: 12/09/24 Interval History: Follow up CHF feeling better today Plan for thoracentesis Physical Exam Vital Signs: Vital Signs: Last Vital Signs Temp 98.2 F 12/09/24 10:51 Pulse 97 12/09/24 12:28 Resp 20 12/09/24 12:28 BP 113/60 12/09/24 12:28 Pulse Ox 100 12/09/24 12:28 O2 Del Method Nasal Cannula 12/09/24 12:28 O2 Flow Rate 2 12/09/24 12:28 BMI result Body Mass Index 27.5 Appearing in no acute distress lung sounds are clear to auscultation heart regular rate rhythm, clear S1, S2 positive bowel sounds, abdomen is soft, nontender neuro patient is alert x3, no focal deficits Objective Data Active Medications Acetaminophen (Acetaminophen 325 Mg Tablet) 650 mg PO Q6H PRN PRN Reason: Pain, Mild 1-3,fever,headache Albuterol/Ipratropium (Albuterol/Iprat 2.5/0.5mg 3 Ml Ampul.Neb) 3 ml INHALE Q4H PRN PRN Reason: Shortness of Breath/Wheezing Apixaban (Apixaban 5 Mg Tablet) 5 mg PO BID [facility] Last Admin: 12/09/24 08:28 Dose: 5 mg Documented By: RIOSCBRITTANY Benzonatate (Benzonatate 100 Mg Capsule) 100 mg PO TID PRN PRN Reason: Cough Last Admin: 12/06/24 19:45 Dose: 100 mg Documented By: HIEU Calcium Carbonate (Calcium Carbonate 750 Mg Tab.Chew) 750 mg PO Q4H PRN PRN Reason: Heartburn Ceftriaxone Sodium (Ceftriaxone Sodium 1 Gm Vial) 1 gm IVPUSH Q24H [facility] Last Admin: 12/08/24 13:34 Dose: 1 gm Documented By: BERENICE Dextrose (Dextrose 50 % 25 Gm/50 Ml Syringe) 25 gm IVPUSH Q15M PRN; Protocol PRN Reason: per Hypoglycemia Standing Ord. Glucose (Glucose Gel 15 Gm Gel..Gram.) 15 gm PO Q15M PRN; Protocol PRN Reason: per Hypoglycemia Standing Ord. Azithromycin 500 mg/ Sodium (Chloride) 250 mls @ 125 mls/hr IV Q24H [facility] [place] Last Infusion: 12/08/24 16:08 Dose: Infused Documented By: BERENICE Insulin Human Lispro (Insulin Lispro 100 Unit/Ml 3 Ml Vial) 0 unit SUBCUT QIDACHS [facility] [place]; Protocol Last Admin: 12/09/24 07:12 Dose: Not Given Documented By: LAUREN Non-Admin Reason: No Insulin Coverage Lisinopril (Lisinopril 40 Mg Tablet) 40 mg PO DAILY [facility]; Protocol Last Admin: 12/09/24 08:28 Dose: 40 mg Documented By: JELENA Magnesium Hydroxide (Milk Of Magnesia 30 Ml Oral.Susp) 30 ml PO DAILY PRN PRN Reason: Constipation Melatonin (Melatonin 3 Mg Tablet) 6 mg PO BEDTIME PRN PRN Reason: Insomnia Last Admin: 12/06/24 19:45 Dose: 6 mg Documented By: HIEU Sodium Chloride (0.9 % Sodium Chloride Flush 3 Ml Syringe) 3 ml IVFLUSH QSHIFT [facility] [place] Last Admin: 12/09/24 08:28 Dose: 3 ml Documented By: JELENA Labs 12/06/24 06:22 12/09/24 08:26 Labs: Laboratory Results - last 24 hr 12/08/24 12/08/24 12/08/24 06:34 15:50 20:32 PT INR Anion Gap Estim Creat Clear Calc Estimated GFR POC Glucose 107 108 Random Glucose Calcium Total Bilirubin 0.9 Direct Bilirubin 0.4 AST 34 ALT 24 Alkaline Phosphatase 322 H Total Protein 5.9 L Albumin 2.7 L 12/09/24 12/09/24 12/09/24 06:58 08:26 10:47 PT 24.4 H D INR 2.1 H Anion Gap 10 L Estim Creat Clear Calc 45.9 Estimated GFR 47 POC Glucose 129 H 122 H Random Glucose 135 H Calcium 8.1 L Total Bilirubin Direct Bilirubin AST ALT Alkaline Phosphatase Total Protein Albumin Assessment and Plan (1) Leg swelling: Status: Acute (2) Anemia in chronic kidney disease (CKD): Status: Acute (3) Chronic atrial fibrillation: Status: Acute Plan 74-year-old male with a past medical history of HTN, HLD, dm, CAD, CKD, CHF-35-40%, AFib on Eliquis, anemia, hyperparathyroidism, osteoarthritis, memory impairment; recent admission to the hospital for C diff infection; presented to the hospital today with a chief complaint of generalized weakness. Pleural effusion CT showing moderate large right effusion thoracentesis> 550 mL of reddish clear pleural fluid, cytology sent wean off oxygen Pneumonia Seen on chest CT no fever or leukocytosis continue rocephin and azithromycin KELSEY on CKD3. Resolved likely secondary to IV lasix, stopped follow BMP HTN discussed with Nephrology Ok to restart home dose of Lisinopril Bilateral lower extremity edema, Acute hypoxemic respiratory failure, Chronic CHF echo 12/05 shows mildly decreased left ventricular systolic function with EF 52% in some hypokinesis of the inferolateral wall and basal inferior segment, no valvular pathology Daily weights and I's and o's Cardiology following>Cardiology does not feel failure rather hypoalbuminemic state. BNP 430>973>1409>434 on 1.5 Lnc o2, Keep sat >90%, wean lasix stopped due to KELSEY and patient euvolemic Diabetes 2 ss, ada diet CKD3 baseline follow renal/divalents Recent C diff infection completed vancomycin as ordered Persistent AFib acceptable rate control adjust as indicated Increased Eliquis to 5 mg twice daily Persistent abdominal pain CT abdomen/pelvis pending consult as appropriate Acute transaminitis Etiology unclear CT abdomen similar appearing right posterior subcapsular hepatic fluid collection with no free air or bowel, will discuss with GI Follow liver panel Eliquis Full code Quality Stroke Does the patient have a stroke diagnosis?: No VTE Prior VTE?: No VTE Risk Level:: Medical - moderate - high VTE Device Contraindication: Treatment Not Indicated VTE Drug Contraindication: N/A - Med Ordered
[2024-12-09] MEDS: Lidocaine HCl 1 % MPF 5 ML VIAL 10 ML SUBCUT (12:50)
[2024-12-09 13:10] LABS: MN% 51.8 %; PMN% 48.2 %; RBC Pleural Fluid 0.014 X10*6/uL; WBC Pleural Fluid 1.463 X10*3/uL
--- NOTE | 2024-12-09 13:33 | MHC.CM.PN ---
Cm met w/pt via rn field case manager to discuss dispo, pt agreeable to STR and broad local referral, once bed offers come in pt would like cm to contact trudy Liriano, ref placed and cm awaiting bed offers, cm will cont to follow dc needs.
[2024-12-09] MEDS: Azithromycin 500 MG in 0.9 % Sodium Chloride 250 ML 125 MG IV (13:50)
[2024-12-09] MEDS: cefTRIAXone sodium 1 GM VIAL IVPUSH (13:50)
[2024-12-09 14:23] LABS: BF Shift QC OK YES; Lymphocytes Pleural Fluid 8 %; Monocytes Pleural Fluid 54 %; Neutrophils Pleural Fluid 38 %
[2024-12-09 16:35] LABS: Glucose, Whole Blood 104 mg/dL (60-115)
[2024-12-09 20:32] LABS: Glucose, Whole Blood 104 mg/dL (60-115)
[2024-12-10] VITALS (11 sets, daily range): BP systolic 122–158; BP diastolic 53–78; PULSE 69–90; RESP 14–20; TEMP 36.2–37.2; O2SAT 95–97; BMI 27.5
--- NOTE | 2024-12-10 04:13 | PM.EVENT ---
Event Note Date of Service: 12/10/24 Event Note: Nurse reported patient had episode of black stool. Will hold Eliquis. Initiating IV Protonix and consulting GI. Time Spent With Patient Time: Total time managing care of this patient today ____ minutes.
[2024-12-10] MEDS: Pantoprazole Sodium 40 MG/10 ML VIAL IVPUSH ×2 (05:11→15:22)
[2024-12-10 07:09] LABS: Glucose, Whole Blood 94 mg/dL (60-115)
--- NOTE | 2024-12-10 08:52 | MHC.CM.PN ---
Addendum entered by Arielle Leblanc RN 12/10/24 15:34: CM CONTACTED PT'S DTR/HCP TRACEY AT NUMBER ON FILE THERE IS NO NUMBER LISTED FOR PT'S SON/ALT TRACEY MAZA AGREEABLE TO BED OFFER AT [facility], SARGENTS UPDATED VIA [employer]. Original Note: EMR REVIEWED, PT W/CHF NOW W/MELENA OVERNOC, PT STARTED ON HIGH DOSE IV PPI, GI PENDING, NO PLAN FOR DC AT THIS TIME, PLAN CONT'S TO BE STR ONCE PT IS MEDICALLY CLEARED, CM WILL CONT TO FOLLOW DC NEEDS.
[2024-12-10 09:14] LABS: Mean Corpuscular HGB Conc 32.5 g/dl (31.0-36.0); Mean Corpuscular Hemoglobin 28.5 pg (27.0-33.0); Mean Corpuscular Volume 87.7 fL (80.0-98.0); Mean Platelet Volume 9.1 fL (9.4-12.4); Platelet Count 279 X10*3/uL (160-400); Red Blood Count 2.35 X10*6/uL (4.60-5.80); Red Cell Distribution Width 16.4 % (11.0-16.0); White Blood Count 9.2 X10*3/uL (4.8-10.8)
[2024-12-10 09:26] LABS: Anion Gap 14 (12-20); Blood Urea Nitrogen 61 mg/dL (9-16); Calcium 8.1 mg/dL (8.4-10.2); Carbon Dioxide 26 mmol/L (22-29); Chloride 103 mmol/L (96-108); Creatinine Clr Calc Pharmacy 41.9; Estimated Glomerular Filt Rate 42; Glucose Random 104 mg/dL (60-115); Potassium 3.5 mmol/L (3.3-5.1); Sodium 139 mmol/L (135-145)
[2024-12-10] MEDS: 0.9 % Sodium Chloride Flush 3 ML SYRINGE IVFLUSH ×2 (09:26→15:22)
[2024-12-10] MEDS: lisinopriL 20 MG TABLET PO (09:26)
[2024-12-10 09:43] LABS: Hematocrit 20.6 % (42.0-52.0); Hemoglobin 6.7 g/dl (14.0-18.0)
--- NOTE | 2024-12-10 09:54 | P.PNNP_ITS ---
Subjective Subjective Date of Service: 12/10/24 Interval history: Patient is a 74 y/o male with a medical history of CKD, follows Dr Guerin outpatient; admitted 12/04 for generalized weakness. Patient is being treated for pneumonia. Nephrology consulted for proteinuria. patient is awake and alert at bedside. denies shortness of breath, states breathing is comfortable (on nasal cannula) deneis chest pain reports ongoing right lower abdominal pain is improving states he is urinating comfortably, moving bowels denies LE swelling improved. RUQ US shows unremarkable right kidney without hydronephrosis. creatinine 1.62 (1.48 12/09, 1.48, 12/08 1.55, 12/07 1.38, 12/06 1.45, 12/05 1.55, 12/04 1.49, 11/25 1.94) patient's blood pressures have normalized with initiation of home lisinopril was re-started 12/08 at 40mg, lisinopril dose cut in half to avoid Patient denies other new symptoms/concerns. Physical Exam 2 Vital Signs: Vital Signs: Last Vital Signs Temp 98.5 F 12/10/24 07:37 Pulse 86 12/10/24 07:37 Resp 20 12/10/24 07:37 BP 136/63 12/10/24 07:37 Pulse Ox 95 12/10/24 07:37 O2 Del Method Room Air 12/10/24 07:37 O2 Flow Rate 2 12/09/24 12:28 BMI result Body Mass Index 27.5 Const: General: no acute distress, alert and awake Resp: Effort & Inspection: normal respiratory effort and able to speak in complete sentences Auscultation: clear to auscultation bilaterally Cardio: Rate: regular rate Rhythm: regular rhythm Heart sounds: S1 normal heart sound present and S2 normal heart sound present GI: Palpation (GI): Soft to palpation and Tenderness to palpation present (GI) (mild tenderness to palpation) in the RUQ : General: Yes no CVA tenderness Back/Spine/Pelvis: Back: no CVA tenderness Skin: Rashes: no rashes Extrem: General: No edema Objective Data Labs 12/10/24 08:54 12/10/24 08:54 Labs: Laboratory Results - last 24 hr 12/09/24 12/09/24 12/09/24 10:47 12:15 16:25 WBC RBC Hgb Hct MCV MCH MCHC RDW Plt Count MPV Absolute Nucleated RBC Nucleated RBC % (auto) Sodium Potassium Chloride Carbon Dioxide Anion Gap BUN Creatinine Estim Creat Clear Calc Estimated GFR POC Glucose 122 H 104 Random Glucose Calcium Peritoneal WBC Cancelled Peritoneal RBC Cancelled Periton Neutrophils Cancelled Periton Lymphocytes Cancelled Peritoneal Monocytes Cancelled Peritoneal Eosinophils Cancelled Peritoneal Basophils Cancelled Peritoneal Other Cells Cancelled Pleural WBC 1.463 Pleural RBC 0.014 Pleural Neutrophils 38 Pleural Lymphocytes 8 Pleural Monocytes 54 12/09/24 12/10/24 12/10/24 20:23 07:05 08:54 WBC 9.2 RBC 2.35 L D Hgb 6.7 L* D Hct 20.6 L* D MCV 87.7 MCH 28.5 MCHC 32.5 RDW 16.4 H Plt Count 279 MPV 9.1 L Absolute Nucleated RBC 0.000 Nucleated RBC % (auto) 0.0 Sodium 139 Potassium 3.5 Chloride 103 Carbon Dioxide 26 Anion Gap 14 BUN 61 H Creatinine 1.62 H Estim Creat Clear Calc 41.9 Estimated GFR 42 POC Glucose 104 94 Random Glucose 104 Calcium 8.1 L Peritoneal WBC Peritoneal RBC Periton Neutrophils Periton Lymphocytes Peritoneal Monocytes Peritoneal Eosinophils Peritoneal Basophils Peritoneal Other Cells Pleural WBC Pleural RBC Pleural Neutrophils Pleural Lymphocytes Pleural Monocytes Microbiology Microbiology Results: Microbiology 12/09/24 12:15 Pleura Gram Stain - Final 12/09/24 12:15 Pleura Routine Culture - Preliminary No growth to date. 12/09/24 12:15 Pleura Anaerobic Culture - Preliminary No growth to date. Procedures Date of Service Date of Service: 12/10/24 Assessment & Plan Assessment and plan (1) Hypertension: Status: Acute (2) CKD (chronic kidney disease): Status: Acute Plan Patient with baseline CKD and HTN Recommend continue lisinopril 20mg daily for blood pressure control. Recommend avoiding nephrotoxins, including NSAIDs Monitor I&O while inpatient, daily renal function replace potassium as needed will continue to follow, will arrange for outpatient follow up with nephrology upon discharge in 1-[address] Guerin Time Spent With Patient Time: Total time managing care of this patient today ____ minutes. Progress Note: Quality Stroke Does the patient have a stroke diagnosis?: No
--- NOTE | 2024-12-10 10:45 | P.PNIM_ITS ---
Subjective Subjective Date of Service: 12/10/24 Interval History: Follow up CHF feeling better today s/p thoracentesis now anemic with low HH requiring blood tx Physical Exam 2 Vital Signs: Vital Signs: Last Vital Signs Temp 98.5 F 12/10/24 07:37 Pulse 86 12/10/24 07:37 Resp 20 12/10/24 07:37 BP 136/63 12/10/24 07:37 Pulse Ox 95 12/10/24 07:37 O2 Del Method Room Air 12/10/24 07:37 O2 Flow Rate 2 12/09/24 12:28 BMI result Body Mass Index 27.5 Appearing in no acute distress lung sounds are clear to auscultation heart regular rate rhythm, clear S1, S2 positive bowel sounds, abdomen is soft, nontender neuro patient is alert x3, no focal deficits Objective Data Active Medications Acetaminophen (Acetaminophen 325 Mg Tablet) 650 mg PO Q6H PRN PRN Reason: Pain, Mild 1-3,fever,headache Albuterol/Ipratropium (Albuterol/Iprat 2.5/0.5mg 3 Ml Ampul.Neb) 3 ml INHALE Q4H PRN PRN Reason: Shortness of Breath/Wheezing Benzonatate (Benzonatate 100 Mg Capsule) 100 mg PO TID PRN PRN Reason: Cough Last Admin: 12/06/24 19:45 Dose: 100 mg Documented By: HIEU Calcium Carbonate (Calcium Carbonate 750 Mg Tab.Chew) 750 mg PO Q4H PRN PRN Reason: Heartburn Ceftriaxone Sodium (Ceftriaxone Sodium 1 Gm Vial) 1 gm IVPUSH Q24H [facility] Last Admin: 12/09/24 13:50 Dose: 1 gm Documented By: LAUREN Dextrose (Dextrose 50 % 25 Gm/50 Ml Syringe) 25 gm IVPUSH Q15M PRN; Protocol PRN Reason: per Hypoglycemia Standing Ord. Glucose (Glucose Gel 15 Gm Gel..Gram.) 15 gm PO Q15M PRN; Protocol PRN Reason: per Hypoglycemia Standing Ord. Azithromycin 500 mg/ Sodium (Chloride) 250 mls @ 125 mls/hr IV Q24H [facility] Last Infusion: 12/09/24 16:49 Dose: Infused Documented By: JELENA Insulin Human Lispro (Insulin Lispro 100 Unit/Ml 3 Ml Vial) 0 unit SUBCUT QIDACHS [facility]; Protocol Last Admin: 12/10/24 08:50 Dose: Not Given Documented By: JELENA Non-Admin Reason: No Insulin Coverage Lisinopril (Lisinopril 20 Mg Tablet) 20 mg PO DAILY [facility]; Protocol Last Admin: 12/10/24 09:26 Dose: 20 mg Documented By: JELENA Magnesium Hydroxide (Milk Of Magnesia 30 Ml Oral.Susp) 30 ml PO DAILY PRN PRN Reason: Constipation Melatonin (Melatonin 3 Mg Tablet) 6 mg PO BEDTIME PRN PRN Reason: Insomnia Last Admin: 12/06/24 19:45 Dose: 6 mg Documented By: HIEU Pantoprazole Sodium (Pantoprazole Sodium 40 Mg/10 Ml Vial) 40 mg IVPUSH BID@0630,1630 [facility] Last Admin: 12/10/24 05:11 Dose: 40 mg Documented By: ART Sodium Chloride (0.9 % Sodium Chloride Flush 3 Ml Syringe) 3 ml IVFLUSH QSHIFT [facility] Last Admin: 12/10/24 09:26 Dose: 3 ml Documented By: JELENA Labs 12/10/24 08:54 12/10/24 08:54 Labs: Laboratory Results - last 24 hr 12/09/24 12/09/24 12/09/24 10:47 12:15 16:25 MCV MCH MCHC RDW Plt Count MPV Absolute Nucleated RBC Nucleated RBC % (auto) Anion Gap Estim Creat Clear Calc Estimated GFR POC Glucose 122 H 104 Random Glucose Calcium Peritoneal WBC Cancelled Peritoneal RBC Cancelled Periton Neutrophils Cancelled Periton Lymphocytes Cancelled Peritoneal Monocytes Cancelled Peritoneal Eosinophils Cancelled Peritoneal Basophils Cancelled Peritoneal Other Cells Cancelled Pleural WBC 1.463 Pleural RBC 0.014 Pleural Neutrophils 38 Pleural Lymphocytes 8 Pleural Monocytes 54 12/09/24 12/10/24 12/10/24 20:23 07:05 08:54 MCV 87.7 MCH 28.5 MCHC 32.5 RDW 16.4 H Plt Count 279 MPV 9.1 L Absolute Nucleated RBC 0.000 Nucleated RBC % (auto) 0.0 Anion Gap 14 Estim Creat Clear Calc 41.9 Estimated GFR 42 POC Glucose 104 94 Random Glucose 104 Calcium 8.1 L Peritoneal WBC Peritoneal RBC Periton Neutrophils Periton Lymphocytes Peritoneal Monocytes Peritoneal Eosinophils Peritoneal Basophils Peritoneal Other Cells Pleural WBC Pleural RBC Pleural Neutrophils Pleural Lymphocytes Pleural Monocytes Microbiology Microbiology Results: Microbiology 12/09/24 12:15 Gram Stain - Final Pleura Routine Culture - Preliminary No growth to date. Anaerobic Culture - Preliminary No growth to date. Assessment and Plan (1) Leg swelling: Status: Acute (2) Anemia in chronic kidney disease (CKD): Status: Acute (3) Chronic atrial fibrillation: Status: Acute Plan 74-year-old male with a past medical history of HTN, HLD, dm, CAD, CKD, CHF-35-40%, AFib on Eliquis, anemia, hyperparathyroidism, osteoarthritis, memory impairment; recent admission to the hospital for C diff infection; presented to the hospital today with a chief complaint of generalized weakness. Acute blood loss anemia had blood per rectum overnight HH dropped 6.7/20.6 2 units PRBC ordered GI consult Eliquis placed on hold Pleural effusion. Resolved CT showing moderate large right effusion s/p thoracentesis> 550 mL of reddish clear pleural fluid, cytology sent wean off oxygen Pneumonia Seen on chest CT no fever or leukocytosis continue rocephin and azithromycin KELSEY on CKD3. Resolved likely secondary to IV lasix, stopped follow BMP HTN discussed with Nephrology Ok to restart home dose of Lisinopril Bilateral lower extremity edema, Acute hypoxemic respiratory failure, Chronic CHF echo 12/05 shows mildly decreased left ventricular systolic function with EF 52% in some hypokinesis of the inferolateral wall and basal inferior segment, no valvular pathology Daily weights and I's and o's Cardiology following>Cardiology does not feel failure rather hypoalbuminemic state. BNP 430>973>[id number]>434 on 1.5 Lnc o2, Keep sat >90%, wean lasix stopped due to KELSEY and patient euvolemic Diabetes 2 ss, ada diet CKD3 baseline follow renal/divalents Recent C diff infection completed vancomycin as ordered Persistent AFib acceptable rate control adjust as indicated Increased Eliquis to 5 mg twice daily Persistent abdominal pain CT abdomen/pelvis pending consult as appropriate Acute transaminitis Etiology unclear CT abdomen similar appearing right posterior subcapsular hepatic fluid collection with no free air or bowel, will discuss with GI Follow liver panel Eliquis Full code Quality Stroke Does the patient have a stroke diagnosis?: No VTE Prior VTE?: No VTE Risk Level:: Medical - moderate - high VTE Device Contraindication: Treatment Not Indicated VTE Drug Contraindication: N/A - Med Ordered
[2024-12-10 11:36] LABS: Glucose, Whole Blood 99 mg/dL (60-115)
[2024-12-10] MEDS: cefTRIAXone sodium 1 GM VIAL IVPUSH (13:00)
[2024-12-10] MEDS: Azithromycin 500 MG in 0.9 % Sodium Chloride 250 ML 125 MG IV (13:00)
--- NOTE | 2024-12-10 13:20 | MHC.CLN ---
F/U PREVIOUS PO INTAKE VARIABLE RANGING FROM 0-75% PT IS CURRENTLY NPO WHEN DIET TO RESUME, RECOMMEND RE-STARTING 2000DM DIET WITH ENSURE MAX SUPPLEMENT BID TO PROMOTE WOUND HEALING SUPP WILL PROVIDE 300KCALS, 60G PROTEIN FOLLOWING FOR DIET ADVANCEMENT
--- NOTE | 2024-12-10 13:32 | P.CDIM_ITS ---
PROVIDER RESPONSE TEXT: To clarify, the appropriate diagnosis supported by the clinical indicators: Other (explain): unknown at this time QUERY TEXT: PHYSICIAN'S DOCUMENTATION REQUEST Date of Query: 12/10/2024 12:34 PM EDT Patient Name: Ethan Cristina Admit Date: 12/05/2024 Dear Amelia Mcgraw SLITTER PROCESSED FILM, A review of the medical record indicates additional documentation may be needed. Please review below and update the documentation accordingly. Clinical Indicators: episode black stool 12/10/24, Eliquis placed on hold, given IV Protonix H&H on 12/10/24: 6.7/20.6 Acute blood loss anemia with low H&H requiring blood transfusion Based on the above, could you clarify which of the following is the most likely type of anemia you ar e evaluating, treating, and/or monitoring? Acute blood loss anemia due to adverse effect of anticoagulant Hemorrhagic disorder due to extrinsic circulating anticoagulant Other (explain) Clinically unable to determine (explain) Thank you, Sadia Cruz RN Use of terms such as suspected, likely, concern for, or probable (associated with a specific diagnosi s that is being evaluated, monitored, or treated as if it exists) are acceptable and can be coded in the inpatient se tting, when documented at the time of discharge. Please use your independent medical judgment in providing your response. THIS QUERY IS PART OF THE PERMANENT MEDICAL RECORD
[2024-12-10 16:49] LABS: Glucose, Whole Blood 125 mg/dL (60-115)
[2024-12-10 20:47] LABS: Glucose, Whole Blood 100 mg/dL (60-115)
[2024-12-11] VITALS (7 sets, daily range): BP systolic 132–169; BP diastolic 60–94; PULSE 63–94; RESP 14–19; TEMP 36–37.4; O2SAT 96–98; BMI 24.9
[2024-12-11] MEDS: Pantoprazole Sodium 40 MG/10 ML VIAL IVPUSH ×2 (06:32→15:55)
[2024-12-11 07:04] LABS: Glucose, Whole Blood 93 mg/dL (60-115)
[2024-12-11 08:17] LABS: Hematocrit 27.9 % (42.0-52.0); Hemoglobin 9.3 g/dl (14.0-18.0); Mean Corpuscular HGB Conc 33.3 g/dl (31.0-36.0); Mean Corpuscular Hemoglobin 28.8 pg (27.0-33.0); Mean Corpuscular Volume 86.4 fL (80.0-98.0); Mean Platelet Volume 9.2 fL (9.4-12.4); Platelet Count 268 X10*3/uL (160-400); Red Blood Count 3.23 X10*6/uL (4.60-5.80); Red Cell Distribution Width 15.8 % (11.0-16.0)
[2024-12-11 08:32] LABS: Anion Gap 10 (12-20); Blood Urea Nitrogen 54 mg/dL (9-16); Calcium 8.2 mg/dL (8.4-10.2); Carbon Dioxide 27 mmol/L (22-29); Chloride 105 mmol/L (96-108); Creatinine Clr Calc Pharmacy 36.9; Estimated Glomerular Filt Rate 40; Glucose Random 94 mg/dL (60-115); Potassium 3.9 mmol/L (3.3-5.1); Sodium 138 mmol/L (135-145)
[2024-12-11] MEDS: 0.9 % Sodium Chloride Flush 3 ML SYRINGE IVFLUSH ×3 (10:28→19:47)
[2024-12-11] MEDS: lisinopriL 20 MG TABLET PO (10:28)
[2024-12-11 10:59] LABS: Glucose, Whole Blood 90 mg/dL (60-115)
--- NOTE | 2024-12-11 11:13 | P.PNNP_ITS ---
Subjective Subjective Date of Service: 12/11/24 Interval history: Patient is a 74 y/o male with a medical history of CKD, follows Dr Guerin outpatient; admitted 12/04 for generalized weakness. Nephrology consulted for proteinuria. patient is awake and alert at bedside. denies shortness of breath, states breathing is comfortable (on nasal cannula, s/p thoracentesis) deneis chest pain reports ongoing right lower abdominal pain is improving states he is urinating comfortably, moving bowels denies LE swelling improved. RUQ US shows unremarkable right kidney without hydronephrosis. creatinine 1.69 (1.62 12/10, 1.48 12/09, 1.48, 12/08 1.55, 12/07 1.38, 12/06 1.45, 12/05 1.55, 12/04 1.49, 11/25 1.94) blood pressures in 160s/90s today on lisinopril 20mg daily (home dose is 40mg daily) Patient denies other new symptoms/concerns. Physical Exam 2 Vital Signs: Vital Signs: Last Vital Signs Temp 98.9 F 12/11/24 10:51 Pulse 68 12/11/24 10:51 Resp 18 12/11/24 10:51 BP 162/94 H 12/11/24 10:51 Pulse Ox 96 12/11/24 10:51 O2 Del Method Room Air 12/11/24 10:51 O2 Flow Rate 2 12/09/24 12:28 BMI result Body Mass Index 24.9 Const: General: no acute distress, alert and awake Resp: Effort & Inspection: normal respiratory effort and able to speak in complete sentences Auscultation: clear to auscultation bilaterally Cardio: Rate: regular rate Rhythm: regular rhythm Heart sounds: S1 normal heart sound present and S2 normal heart sound present GI: Palpation (GI): Soft to palpation and Tenderness to palpation present (GI) (mild tenderness to palpation) in the RUQ : General: Yes no CVA tenderness Back/Spine/Pelvis: Back: no CVA tenderness Skin: Rashes: no rashes Extrem: General: No edema Objective Data Labs 12/11/24 07:44 12/11/24 07:44 Labs: Laboratory Results - last 24 hr 12/10/24 12/10/24 12/10/24 08:54 11:05 14:05 WBC RBC Hgb Hct MCV MCH MCHC RDW Plt Count MPV Absolute Nucleated RBC Nucleated RBC % (auto) Smear Path Review SEE NOTE Sodium Potassium Chloride Carbon Dioxide Anion Gap BUN Creatinine Estim Creat Clear Calc Estimated GFR POC Glucose 99 Random Glucose Calcium Blood Type B Positive B Positive Antibody Screen NEGATIVE NEGATIVE Crossmatch See Detail See Detail 12/10/24 12/10/24 12/11/24 16:37 20:43 06:59 WBC RBC Hgb Hct MCV MCH MCHC RDW Plt Count MPV Absolute Nucleated RBC Nucleated RBC % (auto) Smear Path Review Sodium Potassium Chloride Carbon Dioxide Anion Gap BUN Creatinine Estim Creat Clear Calc Estimated GFR POC Glucose 125 H 100 93 Random Glucose Calcium Blood Type Antibody Screen Crossmatch 12/11/24 12/11/24 07:44 10:50 WBC 8.0 RBC 3.23 L D Hgb 9.3 L D Hct 27.9 L D MCV 86.4 MCH 28.8 MCHC 33.3 RDW 15.8 Plt Count 268 MPV 9.2 L Absolute Nucleated RBC 0.000 Nucleated RBC % (auto) 0.0 Smear Path Review Sodium 138 Potassium 3.9 Chloride 105 Carbon Dioxide 27 Anion Gap 10 L BUN 54 H Creatinine 1.69 H Estim Creat Clear Calc 36.9 Estimated GFR 40 POC Glucose 90 Random Glucose 94 Calcium 8.2 L Blood Type Antibody Screen Crossmatch Microbiology Microbiology Results: Microbiology 12/09/24 12:15 Pleura Gram Stain - Final 12/09/24 12:15 Pleura Routine Culture - Final No growth after 2 days 12/09/24 12:15 Pleura Anaerobic Culture - Preliminary No growth to date. Procedures Date of Service Date of Service: 12/11/24 Assessment & Plan Assessment and plan (1) Hypertension: Status: Acute (2) CKD (chronic kidney disease): Status: Acute Plan Patient with baseline CKD and HTN creatinine remains within baseline range Increase lisinopril to 40mg daily to optimize blood pressure control. Recommend avoiding nephrotoxins, including NSAIDs Monitor I&O while inpatient, daily renal function replace potassium as needed will continue to follow, will arrange for outpatient follow up with nephrology upon discharge in 1-[address] Norris. Time Spent With Patient Time: Total time managing care of this patient today ____ minutes. Progress Note: Quality Stroke Does the patient have a stroke diagnosis?: No
[2024-12-11] MEDS: cefTRIAXone sodium 1 GM VIAL IVPUSH (12:21)
--- NOTE | 2024-12-11 12:21 | HO.PM.IMPN ---
Subjective Subjective Date of Service: 12/11/24 Interval History: Seen and examined this morning Follow-up for pleural effusion, anemia Feels well, no shortness a breath. Denies bleeding overnight, no abdominal pain Review of Systems Review of Systems: Yes all other systems are reviewed and are negative Constitutional Constitutional: Denies chills and Denies fever(s) Physical Exam Vital Signs: Vital Signs: Last Vital Signs Temp 98.9 F 12/11/24 10:51 Pulse 68 12/11/24 10:51 Resp 18 12/11/24 10:51 BP 162/94 H 12/11/24 10:51 Pulse Ox 96 12/11/24 10:51 O2 Del Method Room Air 12/11/24 10:51 O2 Flow Rate 2 12/09/24 12:28 BMI result Body Mass Index 24.9 Const: General: cooperative, comfortable, no acute distress, alert and awake Nutritional Appearance: average body habitus Orientation/consciousness: patient oriented x3 Resp: Effort & Inspection: normal respiratory effort, able to speak in complete sentences, no respiratory distress and no use of accessory muscles Cardio: Rate: regular rate GI: Inspection: No distended Palpation (GI): Soft to palpation and nontender Neuro: General: patient oriented x3, moves all extremities and CN's II-XI intact bilaterally Objective Data Active Medications Acetaminophen (Acetaminophen 325 Mg Tablet) 650 mg PO Q6H PRN PRN Reason: Pain, Mild 1-3,fever,headache Albuterol/Ipratropium (Albuterol/Iprat 2.5/0.5mg 3 Ml Ampul.Neb) 3 ml INHALE Q4H PRN PRN Reason: Shortness of Breath/Wheezing Benzonatate (Benzonatate 100 Mg Capsule) 100 mg PO TID PRN PRN Reason: Cough Last Admin: 12/06/24 19:45 Dose: 100 mg Documented By: HIEU Calcium Carbonate (Calcium Carbonate 750 Mg Tab.Chew) 750 mg PO Q4H PRN PRN Reason: Heartburn Ceftriaxone Sodium (Ceftriaxone Sodium 1 Gm Vial) 1 gm IVPUSH Q24H [facility] Stop: 12/12/24 23:59 Last Admin: 12/10/24 13:00 Dose: 1 gm Documented By: JELENA Dextrose (Dextrose 50 % 25 Gm/50 Ml Syringe) 25 gm IVPUSH Q15M PRN; Protocol PRN Reason: per Hypoglycemia Standing Ord. Glucose (Glucose Gel 15 Gm Gel..Gram.) 15 gm PO Q15M PRN; Protocol PRN Reason: per Hypoglycemia Standing Ord. Azithromycin 500 mg/ Sodium (Chloride) 250 mls @ 125 mls/hr IV Q24H [facility] Stop: 12/12/24 23:59 Last Infusion: 12/10/24 15:22 Dose: Infused Documented By: JELENA Insulin Human Lispro (Insulin Lispro 100 Unit/Ml 3 Ml Vial) 0 unit SUBCUT QIDACHS [facility]; Protocol Last Admin: 12/11/24 12:15 Dose: Not Given Documented By: DRU Non-Admin Reason: No Insulin Coverage Lisinopril (Lisinopril 20 Mg Tablet) 20 mg PO DAILY [facility]; Protocol Last Admin: 12/11/24 10:28 Dose: 20 mg Documented By: BERENICE Magnesium Hydroxide (Milk Of Magnesia 30 Ml Oral.Susp) 30 ml PO DAILY PRN PRN Reason: Constipation Melatonin (Melatonin 3 Mg Tablet) 6 mg PO BEDTIME PRN PRN Reason: Insomnia Last Admin: 12/06/24 19:45 Dose: 6 mg Documented By: HIEU Pantoprazole Sodium (Pantoprazole Sodium 40 Mg/10 Ml Vial) 40 mg IVPUSH BID@0630,1630 [facility] Last Admin: 12/11/24 06:32 Dose: 40 mg Documented By: ZANDRA Sodium Chloride (0.9 % Sodium Chloride Flush 3 Ml Syringe) 3 ml IVFLUSH QSHIFT [facility] Last Admin: 12/11/24 10:28 Dose: 3 ml Documented By: BERENICE Labs 12/11/24 07:44 12/11/24 07:44 Labs: Laboratory Results - last 24 hr 12/10/24 12/10/24 12/10/24 08:54 11:05 14:05 MCV MCH MCHC RDW Plt Count MPV Absolute Nucleated RBC Nucleated RBC % (auto) Smear Path Review SEE NOTE Anion Gap Estim Creat Clear Calc Estimated GFR POC Glucose Random Glucose Calcium Blood Type B Positive Antibody Screen NEGATIVE Crossmatch See Detail See Detail 12/10/24 12/10/24 12/11/24 16:37 20:43 06:59 MCV MCH MCHC RDW Plt Count MPV Absolute Nucleated RBC Nucleated RBC % (auto) Smear Path Review Anion Gap Estim Creat Clear Calc Estimated GFR POC Glucose 125 H 100 93 Random Glucose Calcium Blood Type Antibody Screen Crossmatch 12/11/24 12/11/24 07:44 10:50 MCV 86.4 MCH 28.8 MCHC 33.3 RDW 15.8 Plt Count 268 MPV 9.2 L Absolute Nucleated RBC 0.000 Nucleated RBC % (auto) 0.0 Smear Path Review Anion Gap 10 L Estim Creat Clear Calc 36.9 Estimated GFR 40 POC Glucose 90 Random Glucose 94 Calcium 8.2 L Blood Type Antibody Screen Crossmatch Microbiology Microbiology Results: Microbiology 12/09/24 12:15 Gram Stain - Final Pleura Routine Culture - Final No growth after 2 days Anaerobic Culture - Preliminary No growth to date. Assessment and Plan (1) Anemia in chronic kidney disease (CKD): Status: Acute (2) Hypertension: Status: Acute (3) Pleural effusion: Status: Acute Plan This is a 74-year-old male with a past medical history of HTN, HLD, dm, CAD, CKD, CHF-35-40%, AFib on Eliquis, anemia, hyperparathyroidism, osteoarthritis, memory impairment; recent admission to the hospital for C diff infection; presented to the hospital today with a chief complaint of generalized weakness. Acute blood loss anemia had blood per rectum overnight 12/10 HH dropped 6.7/20.6 2 units PRBC ordered; repeat H/H improved accordingly No further bleeding documented GI following, egd today Eliquis on hold right Pleural effusion CT showing moderate large right effusion s/p thoracentesis 12/09> 550 mL of reddish clear pleural fluid, culture negative, cytology pending weaned off oxygen, comfortable on room air Pneumonia Chest CT showing patchy left upper and lower lobe airspace densities with mediastinal lymphadenopathy no fever or leukocytosis continue rocephin and azithromycin, end date December 12 Recommend outpatient follow-up imaging to assess for resolution of lymphadenopathy KELSEY on CKD3. Resolved likely secondary to IV lasix, stopped follow BMP HTN discussed with Nephrology Ok to restart home dose of Lisinopril Bilateral lower extremity edema, Acute hypoxemic respiratory failure, Chronic CHF echo 12/05 shows mildly decreased left ventricular systolic function with EF 52% in some hypokinesis of the inferolateral wall and basal inferior segment, no valvular pathology Daily weights and I's and o's Cardiology following>Cardiology does not feel failure rather hypoalbuminemic state. BNP 430>[id number] Weaned onto room air lasix stopped due to KELSEY and patient euvolemic Diabetes 2 ss, ada diet CKD3 baseline follow renal/divalents Recent C diff infection completed vancomycin Persistent AFib acceptable rate control adjust as indicated Eliquis on hold for above anemia/bleeding Persistent abdominal pain CT abdomen/pelvis showing similar appearing right posterior subcapsular hepatic fluid collection with intrahepatic extension. No fever, no elevated WBC count. Denies abdominal pain today will discuss with surgery - likely outpatient follow up Acute transaminitis CT abdomen similar appearing right posterior subcapsular hepatic fluid collection with no free air or bowel LFTs normalized, ALK phos trending down Eliquis on hold for anemia Full code Quality Stroke Does the patient have a stroke diagnosis?: No VTE Prior VTE?: No VTE Risk Level:: Medical - moderate - high VTE Device Contraindication: Treatment Not Indicated VTE Drug Contraindication: N/A - Med Ordered
--- NOTE | 2024-12-11 13:11 | PC.NURSE ---
Pt arrived with 2 IV's via right forearm. 1 IV leaking, removed. Pt with patent #20 IV via right forearm. Flushed and LR initiated.
[2024-12-11] MEDS: Lactated Ringers 1,000 ML 80 ML IVCONT (13:14)
--- NOTE | 2024-12-11 13:33 | PC.NURSE ---
Pt EGD/Flex sigmoidoscopy canceled in PRE OP per Dr. Fernandez. INR = 2.1. Pt sent back to floor. MD reviewed plan with patient at bedside. Pt verbalized understanding.
[2024-12-11] MEDS: Azithromycin 500 MG in 0.9 % Sodium Chloride 250 ML 125 MG IV (13:39)
[2024-12-11 13:41] LABS: Alanine Aminotransferase 20 U/L (0-40); Albumin Level 2.5 g/dL (3.5-5.0); Aspartate Amino Transferase 29 U/L (5-37); Bilirubin Direct 0.4 mg/dL (0.0-0.5); Bilirubin Total 0.9 mg/dL (0.0-1.0); Lactate Dehydrogenase 227 U/L (118-273); Total Protein 5.7 g/dL (6.5-8.0)
[2024-12-11 13:47] LABS: Alkaline Phosphatase 254 U/L (39-117)
[2024-12-11] MEDS: Acetaminophen 325 MG TABLET 650 MG PO (15:55)
[2024-12-11] MEDS: Sucralfate 1 GM TABLET PO ×2 (15:55→19:47)
[2024-12-11 16:21] LABS: Glucose, Whole Blood 148 mg/dL (60-115)
--- NOTE | 2024-12-11 17:11 | PM.GICN ---
History of Present Illness Data of Consult Service Date: 12/11/24 Primary Care Provider: Blanca Anderson MD HPI Reason for consult: GI bleed 74-year-old male with a past medical history of HTN, HLD, dm, CAD, CKD, CHF-35-40%, AFib on Eliquis, anemia, hyperparathyroidism, osteoarthritis, memory impairment; recent admission to the hospital for C diff infection; who I am seeing for Gi bleed. Pt initially admitted for weakness and found to have CHF with pneumonia and pl effusion. He had eliquis dose increased for a fib Then few nights ago he had bloody stool motion and HGB dropped requiring 2 unit with appropriate increase from 7--> 9 g/dl. Eliquis was stopped- INR 2.1 today. he denies abdo pain, no nausea, or vomiting, no chest pain. EGD was done 4 weeks ago along with ERCP for bile lek. This revealed a Jefry grade III duodenal ulcer, no active bleeding was seen or significant varices. Review of Systems Review of Systems: Constitutional : No Weight loss, No Fever, No Chills ENT/Mouth : No sore throat, No Rhinorrhea Eyes: No Swelling, No Redness Cardiovascular : No Chest Pain, No SOB, No Edema Respiratory : No Cough, No Sputum, No Wheezing Gastrointestinal : see HPI Genitourinary : NO Dysuria, No Urinary Frequency, No Hematuria, No Urgency Musculoskeletal : no joint pain, No Myalgias, No Joint Swelling Skin : No Skin Lesions, No rash Neuro : + Weakness, No Numbness, No Dizziness, No Headache Psych : No Anxiety/Panic, No Depression Heme/Lymph: No Bruising, No Lymphadenopathy Endocrine : No Polyuria, No Polydipsia All other systems reviewed and are negative. [facility] Past Medical History Medical History (Updated 12/11/24 @ 13:17 by VIRAJ Matos) CKD (chronic kidney disease) Hypertension CHF (congestive heart failure) CKD (chronic kidney disease) stage 4, GFR 15-29 ml/min Obesity (BMI 30.0-34.9) Cardiomyopathy Stroke Chronic atrial fibrillation CKD (chronic kidney disease) Former smoker Depression Diabetes High cholesterol Family History Family History Father No problems noted. Mother Diabetes Hypertension Cancer Son No problems noted. Son No problems noted. Son No problems noted. Daughter No problems noted. Daughter No problems noted. Surgical History Surgical History History of aneurysm History of shoulder surgery Social History Social History Household Members: None Household Members Other:: Housing: Apartment Are you a primary animal caregiver to a significant other at home: No Do you presently have visiting nurse or other home services: No Alcohol intake: never Patient Tobacco Use Status: Former Tobacco user Smoked in Last 30 Days: No Use of substances other than those prescribed or required for medical reasons: No Substance Use Type: Marijuana Currently Displaying Signs/Symptoms of Drug Intoxication Withdrawal: No Have you been hit, kicked, punched, or otherwise hurt by someone within the past year? If so, by whom?: No Are you DNR?: No Advance Directives: No Advance Directives Information Provided: Yes Do you have a plan to hurt others: No Plan Poor oral hygiene: No service: No Current occupational status: [employer] Allergies Allergy/AdvReac Type Severity Reaction Status Date / Time No Known Allergies Allergy Verified 12/04/24 20:36 [No Known Allergies*] Active Medications: Current Medications Acetaminophen (Acetaminophen 325 Mg Tablet) 650 mg PO Q6H PRN PRN Reason: Pain, Mild 1-3,fever,headache Last Admin: 12/11/24 15:55 Dose: 650 mg Albuterol/Ipratropium (Albuterol/Iprat 2.5/0.5mg 3 Ml Ampul.Neb) 3 ml INHALE Q4H PRN PRN Reason: Shortness of Breath/Wheezing Benzonatate (Benzonatate 100 Mg Capsule) 100 mg PO TID PRN PRN Reason: Cough Last Admin: 12/06/24 19:45 Dose: 100 mg Calcium Carbonate (Calcium Carbonate 750 Mg Tab.Chew) 750 mg PO Q4H PRN PRN Reason: Heartburn Ceftriaxone Sodium (Ceftriaxone Sodium 1 Gm Vial) 1 gm IVPUSH Q24H [facility] Stop: 12/12/24 23:59 Last Admin: 12/11/24 12:21 Dose: 1 gm Dextrose (Dextrose 50 % 25 Gm/50 Ml Syringe) 25 gm IVPUSH Q15M PRN; Protocol PRN Reason: per Hypoglycemia Standing Ord. Glucose (Glucose Gel 15 Gm Gel..Gram.) 15 gm PO Q15M PRN; Protocol PRN Reason: per Hypoglycemia Standing Ord. Azithromycin 500 mg/ Sodium (Chloride) 250 mls @ 125 mls/hr IV Q24H [facility] Stop: 12/12/24 23:59 Last Infusion: 12/11/24 15:42 Dose: Infused Lactated Ringer's (Lr) 1,000 mls @ 80 mls/hr IVCONT .[id number] [facility] Last Infusion: 12/11/24 15:47 Dose: Infused Insulin Human Lispro (Insulin Lispro 100 Unit/Ml 3 Ml Vial) 0 unit SUBCUT QIDAS [facility]; Protocol Last Admin: 12/11/24 16:07 Dose: Not Given Lisinopril (Lisinopril 40 Mg Tablet) 40 mg PO DAILY [facility]; Protocol Magnesium Hydroxide (Milk Of Magnesia 30 Ml Oral.Susp) 30 ml PO DAILY PRN PRN Reason: Constipation Melatonin (Melatonin 3 Mg Tablet) 6 mg PO BEDTIME PRN PRN Reason: Insomnia Last Admin: 12/06/24 19:45 Dose: 6 mg Pantoprazole Sodium (Pantoprazole Sodium 40 Mg/10 Ml Vial) 40 mg IVPUSH BID@0630,1630 [facility] Last Admin: 12/11/24 15:55 Dose: 40 mg Sodium Chloride (0.9 % Sodium Chloride Flush 3 Ml Syringe) 3 ml IVFLUSH QSHIFT [facility] Last Admin: 12/11/24 15:55 Dose: 3 ml Sucralfate (Sucralfate 1 Gm Tablet) 1 gm PO QIDACHS [facility] Last Admin: 12/11/24 15:55 Dose: 1 gm Home Medications ?Medication ?Instructions ?Recorded ?Confirmed ?Last Taken ?Type blood-glucose meter #1 ea 05/14/20 01/14/24 Unknown History lancets #100 ea 05/14/20 01/14/24 Unknown History atorvastatin 40 mg tablet 40 mg PO DAILY 12/19/22 12/05/24 11/11/24 History lisinopril 40 mg tablet 40 mg PO DAILY 10/20/24 12/05/24 11/11/24 History apixaban 2.5 mg tablet (Eliquis) 2.5 mg PO BID 12/05/24 12/05/24 Unknown History Physical Exam Vital Signs: Vital Signs: Last Vital Signs Temp 99.3 F 12/11/24 15:47 Pulse 74 12/11/24 15:47 Resp 18 12/11/24 15:47 BP 159/60 H 12/11/24 15:47 Pulse Ox 97 12/11/24 15:47 O2 Del Method Room Air 12/11/24 15:47 O2 Flow Rate 2 12/09/24 12:28 BMI result Body Mass Index 24.9 EXAM: GENERAL: The patient is well developed and nontoxic. VITAL SIGNS:see workflow HEENT: Nonicteric sclerae, PERRLA, EOMI. Oropharynx clear. Moist mucous membranes. Conjunctivae appear well perfused. No thyroid mass. CHEST: Chest wall is nontender. HEART: Regular rate and rhythm without murmurs. LUNGS: Clear to auscultation bilaterally. ABDOMEN: Soft, positive bowel sounds, nontender, no organomegaly.no flank tenderness SKIN: No rash, no excessive bruising, petechiae, or purpura. NEUROLOGIC: Cranial nerves II-XII intact without motor/sensory deficit. Psych: normal affect Results Labs 12/11/24 07:44 12/11/24 07:44 Labs: Short CBC 12/11/24 Range/Units 07:44 WBC 8.0 (4.8-10.8) X10*3/uL Hgb 9.3 L D (14.0-18.0) g/dl Hct 27.9 L D (42.0-52.0) % Plt Count 268 (160-400) X10*3/uL BMP 12/11/24 07:44 Sodium 138 Potassium 3.9 Chloride 105 Carbon Dioxide 27 BUN 54 H Creatinine 1.69 H Calcium 8.2 L Liver Function 12/11/24 Range/Units 07:44 Total Bilirubin 0.9 (0.0-1.0) mg/dL Direct Bilirubin 0.4 (0.0-0.5) mg/dL AST 29 (5-37) U/L ALT 20 (0-40) U/L Alkaline Phosphatase 254 H (39-117) U/L Albumin 2.5 L (3.5-5.0) g/dL Microbiology Microbiology Results: Microbiology 12/09/24 12:15 Pleura Gram Stain - Final 12/09/24 12:15 Pleura Routine Culture - Final No growth after 2 days 12/09/24 12:15 Pleura Anaerobic Culture - Preliminary No growth to date. Assessment and Plan (1) Acute blood loss anemia: Status: Resolved Plan 1/ Acute blood loss anemia, 2/2 eliquis increase and known duodenal ulcer, posisbly stress gastritis as well. Seems to have stabilized, eliquis just stopped PLAN: 1/ Hold eliquis 2/ allow clears, if HGB stable x 3 then advance diet 3/ high dose PPI BID and carafate 4/ can restart eliquis after 72 hrs if stable, other akins repeat EGD --use low dose 5/ transfuse for target hgb 8g/dl Procedures Date of Service Date of Service: 12/11/24
[2024-12-11 20:54] LABS: Glucose, Whole Blood 149 mg/dL (60-115)
[2024-12-12] VITALS (8 sets, daily range): BP systolic 151–169; BP diastolic 71–82; PULSE 57–75; RESP 16–18; TEMP 36.3–36.9; O2SAT 94–98; BMI 27.1
[2024-12-12] MEDS: Pantoprazole Sodium 40 MG/10 ML VIAL IVPUSH (05:29)
[2024-12-12 06:52] LABS: Hematocrit 28.1 % (42.0-52.0); Hemoglobin 9.4 g/dl (14.0-18.0); Mean Corpuscular HGB Conc 33.5 g/dl (31.0-36.0); Mean Corpuscular Hemoglobin 29.1 pg (27.0-33.0); Mean Platelet Volume 8.9 fL (9.4-12.4); Platelet Count 268 X10*3/uL (160-400); Red Blood Count 3.23 X10*6/uL (4.60-5.80); Red Cell Distribution Width 15.9 % (11.0-16.0); White Blood Count 7.6 X10*3/uL (4.8-10.8)
[2024-12-12 07:16] LABS: Glucose, Whole Blood 106 mg/dL (60-115)
[2024-12-12] MEDS: lisinopriL 40 MG TABLET PO (07:57)
[2024-12-12] MEDS: Sucralfate 1 GM TABLET PO ×4 (07:57→20:51)
[2024-12-12] MEDS: 0.9 % Sodium Chloride Flush 3 ML SYRINGE IVFLUSH ×3 (07:58→20:51)
--- NOTE | 2024-12-12 09:34 | P.PNNP_ITS ---
Subjective Subjective Date of Service: 12/12/24 Interval history: Patient is a 74 y/o male with a medical history of CKD, follows Dr Guerin outpatient; admitted 12/04 for generalized weakness. Nephrology consulted for proteinuria. patient is awake and alert at bedside. denies shortness of breath, states breathing is comfortable on room air denies chest pain denies abdominal pain states he is urinating comfortably denies LE swelling RUQ US shows unremarkable right kidney without hydronephrosis. creatinine remains around baseline, 12/11 is 1.69. blood pressures in 160s/90s today- starts 40mg lisinopril daily (home dose) this a.m. Patient denies other new symptoms/concerns. Physical Exam 2 Vital Signs: Vital Signs: Last Vital Signs Temp 98.4 F 12/12/24 07:32 Pulse 67 12/12/24 07:32 Resp 16 12/12/24 07:32 BP 161/74 H 12/12/24 07:32 Pulse Ox 97 12/12/24 07:32 O2 Del Method Room Air 12/12/24 07:32 O2 Flow Rate 2 12/09/24 12:28 BMI result Body Mass Index 27.1 Const: General: no acute distress, alert and awake Resp: Effort & Inspection: normal respiratory effort and able to speak in complete sentences Auscultation: clear to auscultation bilaterally Cardio: Rate: regular rate Rhythm: regular rhythm Heart sounds: S1 normal heart sound present and S2 normal heart sound present GI: Palpation (GI): Soft to palpation and nontender : General: Yes no CVA tenderness Back/Spine/Pelvis: Back: no CVA tenderness Skin: Rashes: no rashes Extrem: General: No edema Objective Data Labs 12/12/24 06:35 12/11/24 07:44 Labs: Laboratory Results - last 24 hr 12/10/24 12/11/24 12/11/24 08:54 07:44 10:50 WBC RBC Hgb Hct MCV MCH MCHC RDW Plt Count MPV Absolute Nucleated RBC Nucleated RBC % (auto) Smear Path Review SEE NOTE POC Glucose 90 Total Bilirubin 0.9 Direct Bilirubin 0.4 AST 29 ALT 20 Alkaline Phosphatase 254 H Lactate Dehydrogenase 227 Total Protein 5.7 L Albumin 2.5 L 12/11/24 12/11/24 12/12/24 16:05 20:45 06:35 WBC 7.6 RBC 3.23 L Hgb 9.4 L Hct 28.1 L MCV 87.0 MCH 29.1 MCHC 33.5 RDW 15.9 Plt Count 268 MPV 8.9 L Absolute Nucleated RBC 0.000 Nucleated RBC % (auto) 0.0 Smear Path Review POC Glucose 148 H 149 H Total Bilirubin Direct Bilirubin AST ALT Alkaline Phosphatase Lactate Dehydrogenase Total Protein Albumin 12/12/24 07:05 WBC RBC Hgb Hct MCV MCH MCHC RDW Plt Count MPV Absolute Nucleated RBC Nucleated RBC % (auto) Smear Path Review POC Glucose 106 Total Bilirubin Direct Bilirubin AST ALT Alkaline Phosphatase Lactate Dehydrogenase Total Protein Albumin Microbiology Microbiology Results: Microbiology 12/09/24 12:15 Pleura Gram Stain - Final 12/09/24 12:15 Pleura Routine Culture - Final No growth after 2 days 12/09/24 12:15 Pleura Anaerobic Culture - Preliminary No growth to date. Procedures Date of Service Date of Service: 12/12/24 Assessment & Plan Assessment and plan (1) Hypertension: Status: Acute (2) CKD (chronic kidney disease): Status: Acute Plan Patient with baseline CKD and HTN creatinine remains within baseline range blood pressures suboptimal- lisinopril increased to 40mg daily to optimize blood pressure control (starting this a.m.), will continue to optimize as outpatient Recommend avoiding nephrotoxins, including NSAIDs Monitor I&O while inpatient, daily renal function replace potassium as needed will continue to follow, will arrange for outpatient follow up with nephrology upon discharge in 1-[address] Guerin Time Spent With Patient Time: Total time managing care of this patient today ____ minutes. Progress Note: Quality Stroke Does the patient have a stroke diagnosis?: No
[2024-12-12 11:27] LABS: Glucose, Whole Blood 166 mg/dL (60-115)
[2024-12-12] MEDS: Insulin Lispro 100 UNIT/ML 3 ML VIAL SUBCUT (11:39)
[2024-12-12 11:51] LABS: LDH Pleural Fluid 125
[2024-12-12] MEDS: cefTRIAXone sodium 1 GM VIAL IVPUSH (11:51)
[2024-12-12] MEDS: Azithromycin 500 MG in 0.9 % Sodium Chloride 250 ML 125 MG IV (11:51)
[2024-12-12] MEDS: Acetaminophen 325 MG TABLET 650 MG PO (11:52)
[2024-12-12 13:33] LABS: Hematocrit 26.4 % (42.0-52.0)
--- NOTE | 2024-12-12 13:41 | MHC.CLN ---
F/U PREVIOUS PO INTAKE VARIABLE RANGING FROM 0-75% DIET IS CURRENTLY CLEAR LIQUIDS WILL START ENSURE CLEAR TID TO PROVIDE 720KCALS, 24G PROTEIN WHEN DIET TO ADVANCE, RECOMMEND RE-STARTING 2000DM DIET WITH ENSURE MAX SUPPLEMENT BID TO PROMOTE WOUND HEALING SUPP WILL PROVIDE 300KCALS, 60G PROTEIN MONITOR PO INTAKE AND ENCOURAGE SUPPLEMENT
[2024-12-12] MEDS: Omeprazole 40 MG CAPSULE.DR PO (15:22)
--- NOTE | 2024-12-12 15:53 | MHC.CM.PN ---
Pt not medically cleared yet, GI wants to do further testing. DCP is to go to [place] for STR, auth was obtained, will have to be re-done, CM has asked them to follow.
--- NOTE | 2024-12-12 17:37 | HO.PM.IMPN ---
Subjective Subjective Date of Service: 12/12/24 Interval History: Seen and examined this morning Follow-up for anemia, pleural effusion No shortness a breath, no abdominal pain, no further bleeding Review of Systems Review of Systems: Yes all other systems are reviewed and are negative Constitutional Constitutional: Denies chills and Denies fever(s) Physical Exam Vital Signs: Vital Signs: Last Vital Signs Temp 98.3 F 12/12/24 15:11 Pulse 75 12/12/24 15:53 Resp 16 12/12/24 15:11 BP 158/72 H 12/12/24 15:53 Pulse Ox 94 12/12/24 15:53 O2 Del Method Room Air 12/12/24 15:11 O2 Flow Rate 2 12/09/24 12:28 BMI result Body Mass Index 27.1 Const: General: cooperative, comfortable, no acute distress, alert and awake Nutritional Appearance: average body habitus Orientation/consciousness: patient oriented x3 Resp: Effort & Inspection: normal respiratory effort, able to speak in complete sentences, no respiratory distress and no use of accessory muscles Cardio: Rate: regular rate GI: Inspection: No distended Palpation (GI): Soft to palpation and nontender Neuro: General: patient oriented x3, moves all extremities and CN's II-XI intact bilaterally Objective Data Active Medications Acetaminophen (Acetaminophen 325 Mg Tablet) 650 mg PO Q6H PRN PRN Reason: Pain, Mild 1-3,fever,headache Last Admin: 12/12/24 11:52 Dose: 650 mg Documented By: LENIN Benzonatate (Benzonatate 100 Mg Capsule) 100 mg PO TID PRN PRN Reason: Cough Last Admin: 12/06/24 19:45 Dose: 100 mg Documented By: HIEU Calcium Carbonate (Calcium Carbonate 750 Mg Tab.Chew) 750 mg PO Q4H PRN PRN Reason: Heartburn Ceftriaxone Sodium (Ceftriaxone Sodium 1 Gm Vial) 1 gm IVPUSH Q24H [facility] Stop: 12/12/24 23:59 Last Admin: 12/12/24 11:51 Dose: 1 gm Documented By: LENIN Dextrose (Dextrose 50 % 25 Gm/50 Ml Syringe) 25 gm IVPUSH Q15M PRN; Protocol PRN Reason: per Hypoglycemia Standing Ord. Glucose (Glucose Gel 15 Gm Gel..Gram.) 15 gm PO Q15M PRN; Protocol PRN Reason: per Hypoglycemia Standing Ord. Azithromycin 500 mg/ Sodium (Chloride) 250 mls @ 125 mls/hr IV Q24H [facility] Stop: 12/12/24 23:59 Last Infusion: 12/12/24 14:44 Dose: Infused Documented By: LENIN Insulin Human Lispro (Insulin Lispro 100 Unit/Ml 3 Ml Vial) 0 unit SUBCUT QIDACHS [facility]; Protocol Last Admin: 12/12/24 11:39 Dose: 2 unit Documented By: LENIN Lisinopril (Lisinopril 40 Mg Tablet) 40 mg PO DAILY [facility]; Protocol Last Admin: 12/12/24 07:57 Dose: 40 mg Documented By: LENIN Magnesium Hydroxide (Milk Of Magnesia 30 Ml Oral.Susp) 30 ml PO DAILY PRN PRN Reason: Constipation Melatonin (Melatonin 3 Mg Tablet) 6 mg PO BEDTIME PRN PRN Reason: Insomnia Last Admin: 12/06/24 19:45 Dose: 6 mg Documented By: HIEU Omeprazole (Omeprazole 40 Mg Capsule.) 40 mg PO BID@0630,1630 [facility] Last Admin: 12/12/24 15:22 Dose: 40 mg Documented By: LENIN Sodium Chloride (0.9 % Sodium Chloride Flush 3 Ml Syringe) 3 ml IVFLUSH QSHIFT [facility] Last Admin: 12/12/24 15:23 Dose: 3 ml Documented By: LENIN Sucralfate (Sucralfate 1 Gm Tablet) 1 gm PO QIDACHS [facility] Last Admin: 12/12/24 15:23 Dose: 1 gm Documented By: LENIN Labs 12/12/24 13:15 12/11/24 07:44 Labs: Laboratory Results - last 24 hr 12/09/24 12/11/24 12/12/24 12:15 20:45 06:35 MCV 87.0 MCH 29.1 MCHC 33.5 RDW 15.9 Plt Count 268 MPV 8.9 L Absolute Nucleated RBC 0.000 Nucleated RBC % (auto) 0.0 POC Glucose 149 H Pleural Total Protein 3.0 Pleural LDH 125 12/12/24 12/12/24 07:05 11:19 MCV MCH MCHC RDW Plt Count MPV Absolute Nucleated RBC Nucleated RBC % (auto) POC Glucose 106 166 H Pleural Total Protein Pleural LDH Microbiology Microbiology Results: Microbiology 12/09/24 12:15 Gram Stain - Final Pleura Routine Culture - Final No growth after 2 days Anaerobic Culture - Preliminary No growth to date. Assessment and Plan (1) Pleural effusion: Status: Acute Plan This is a 74-year-old male with a past medical history of HTN, HLD, dm, CAD, CKD, CHF-35-40%, AFib on Eliquis, anemia, hyperparathyroidism, osteoarthritis, memory impairment; recent admission to the hospital for C diff infection; presented to the hospital today with a chief complaint of generalized weakness. Acute blood loss anemia had blood per rectum overnight 12/10 History of duodenal ulcer HH dropped 6.7/20.6 2 units PRBC ordered; repeat H/H improved accordingly No further bleeding documented GI following, egd now planned for Sunday as GI recommends repeat scope before Eliquis is resumed Continue Carafate, high-dose PPI Eliquis on hold tolerating diet right Pleural effusion CT showing moderate large right effusion s/p thoracentesis 12/09> 550 mL of reddish clear pleural fluid, culture negative, cytology pending weaned off oxygen, comfortable on room air Pneumonia Chest CT showing patchy left upper and lower lobe airspace densities with mediastinal lymphadenopathy no fever or leukocytosis continue rocephin and azithromycin, end date December 12 Recommend outpatient follow-up imaging to assess for resolution of lymphadenopathy KELSEY on CKD3. Resolved likely secondary to IV lasix, stopped follow BMP HTN discussed with Nephrology Ok to restart home dose of Lisinopril Bilateral lower extremity edema, Acute hypoxemic respiratory failure, Chronic CHF echo 12/05 shows mildly decreased left ventricular systolic function with EF 52% in some hypokinesis of the inferolateral wall and basal inferior segment, no valvular pathology Daily weights and I's and o's Cardiology following>Cardiology does not feel failure rather hypoalbuminemic state. BNP [id number] Weaned onto room air lasix stopped due to KELSEY and patient euvolemic Diabetes 2 ss, ada diet CKD3 baseline follow renal/divalents Recent C diff infection completed vancomycin Persistent AFib acceptable rate control adjust as indicated Eliquis on hold for above anemia/bleeding Persistent abdominal pain CT abdomen/pelvis showing similar appearing right posterior subcapsular hepatic fluid collection with intrahepatic extension. No fever, no elevated WBC count. Denies abdominal pain today will discuss with surgery - no further management required inpatient, recommend outpatient follow-up in the office Acute transaminitis CT abdomen similar appearing right posterior subcapsular hepatic fluid collection with no free air or bowel LFTs normalized, ALK phos trending down Eliquis on hold for anemia Full code Requires ongoing inpatient stay for endoscopy, monitoring of CBC Quality Stroke Does the patient have a stroke diagnosis?: No VTE Prior VTE?: No VTE Risk Level:: Medical - moderate - high VTE Device Contraindication: Treatment Not Indicated VTE Drug Contraindication: N/A - Med Ordered
[2024-12-12 17:58] LABS: Glucose, Whole Blood 89 mg/dL (60-115)
[2024-12-12 20:37] LABS: Glucose, Whole Blood 91 mg/dL (60-115)
[2024-12-13 03:28] VITALS: BP 160/84; PULSE 68; RESP 18; TEMP 36.6; O2SAT 96
[2024-12-13] MEDS: Omeprazole 40 MG CAPSULE.DR PO (05:12)
[2024-12-13 06:00] VITALS: BMI 25.1
[2024-12-13 07:02] LABS: Glucose, Whole Blood 105 mg/dL (60-115)
[2024-12-13 07:16] VITALS: BP 160/64; PULSE 66; RESP 18; TEMP 36.7; O2SAT 99
[2024-12-13 08:15] LABS: Hematocrit 28.7 % (42.0-52.0); Hemoglobin 9.6 g/dl (14.0-18.0); Mean Corpuscular HGB Conc 33.4 g/dl (31.0-36.0); Mean Corpuscular Hemoglobin 29.2 pg (27.0-33.0); Mean Corpuscular Volume 87.2 fL (80.0-98.0); Platelet Count 276 X10*3/uL (160-400); Red Blood Count 3.29 X10*6/uL (4.60-5.80); Red Cell Distribution Width 16.2 % (11.0-16.0); White Blood Count 9.8 X10*3/uL (4.8-10.8)
[2024-12-13 08:28] LABS: Anion Gap 9 (12-20); Blood Urea Nitrogen 32 mg/dL (9-16); Calcium 7.9 mg/dL (8.4-10.2); Carbon Dioxide 25 mmol/L (22-29); Chloride 107 mmol/L (96-108); Creatinine Clr Calc Pharmacy 44.9; Estimated Glomerular Filt Rate 50; Glucose Random 92 mg/dL (60-115); Potassium 3.2 mmol/L (3.3-5.1); Sodium 138 mmol/L (135-145)
[2024-12-13] MEDS: lisinopriL 40 MG TABLET PO (08:44)
[2024-12-13] MEDS: Sucralfate 1 GM TABLET PO ×2 (08:45→21:01)
[2024-12-13] MEDS: 0.9 % Sodium Chloride Flush 3 ML SYRINGE IVFLUSH ×3 (08:45→23:13)
[2024-12-13 11:05] VITALS: BP 148/62; PULSE 67; RESP 18; TEMP 37; O2SAT 99
[2024-12-13 11:13] LABS: Glucose, Whole Blood 90 mg/dL (60-115)
--- NOTE | 2024-12-13 12:36 | PM.PNCARD ---
Subjective Subjective Date of Service: 12/13/24 Interval history: Seen examined at bedside. Appears comfortable and denying any shortness of breath. Physical Exam Vital Signs: Last Vital Signs Temp 98.6 F 12/13/24 11:05 Pulse 67 12/13/24 11:05 Resp 18 12/13/24 11:05 BP 148/62 H 12/13/24 11:05 Pulse Ox 99 12/13/24 11:05 O2 Del Method Room Air 12/13/24 11:05 O2 Flow Rate 2 12/09/24 12:28 BMI result Body Mass Index 25.1 GENERAL APPEARANCE: in no acute distress, pleasant. NECK: no carotid bruit, no jugular venous distention. SKIN: no suspicious lesions, warm and dry. HEART: no murmurs, regular rate and rhythm. LUNGS: clear to auscultation bilaterally. ABDOMEN: soft, nontender. EXTREMITIES: No edema. PERIPHERAL PULSES: equal. NEUROLOGIC: No gross deficits, AAO X 3 Objective Labs and Meds 12/13/24 08:04 12/13/24 08:04 Lab results: Laboratory Results - last 24 hr 12/12/24 12/12/24 12/12/24 13:15 16:37 20:24 WBC RBC Hgb 9.0 L Hct 26.4 L MCV MCH MCHC RDW Plt Count MPV Absolute Nucleated RBC Nucleated RBC % (auto) Sodium Potassium Chloride Carbon Dioxide Anion Gap BUN Creatinine Estim Creat Clear Calc Estimated GFR POC Glucose 89 91 Random Glucose Calcium 12/13/24 12/13/24 12/13/24 06:58 08:04 11:06 WBC 9.8 RBC 3.29 L Hgb 9.6 L Hct 28.7 L MCV 87.2 MCH 29.2 MCHC 33.4 RDW 16.2 H Plt Count 276 MPV 9.0 L Absolute Nucleated RBC 0.000 Nucleated RBC % (auto) 0.0 Sodium 138 Potassium 3.2 L Chloride 107 Carbon Dioxide 25 Anion Gap 9 L BUN 32 H Creatinine 1.39 Estim Creat Clear Calc 44.9 Estimated GFR 50 POC Glucose 105 90 Random Glucose 92 Calcium 7.9 L Progress Note: A&P Assessment and plan (1) Hypertension: Status: Acute (2) CKD (chronic kidney disease): Status: Acute (3) CHF (congestive heart failure): Status: Acute Plan [age] year gentleman with recent cholecystitis and C diff presenting with edema and shortness of breath. He was in congestive heart failure on admission but after diuresis he appears to be euvolemic at this stage. Creatinine is stable. He is on lisinopril. I think he will require low-dose diuretics and would favor giving him 20 mg Lasix daily. Overall euvolemic and doing well. He had GI blood loss and is currently off anticoagulation for atrial fibrillation. He will get repeat endoscopy next week to reassess the use of anticoagulation. Thank you for allowing me to participate in the care of your patient. Please feel free to contact me if you have any questions. Time Spent With Patient Time: Total time managing care of this patient today ____ minutes. Progress Note: Quality Stroke Does the patient have a stroke diagnosis?: No Procedures Date of Service Date of Service: 12/13/24
[2024-12-13 15:32] VITALS: BP 158/79; PULSE 81; RESP 18; TEMP 36.7; O2SAT 97
[2024-12-13 15:41] LABS: Glucose, Whole Blood 99 mg/dL (60-115)
--- NOTE | 2024-12-13 16:29 | HO.PM.IMPN ---
Subjective Subjective Date of Service: 12/13/24 Interval History: Seen and examined this morning Follow-up for GI bleeding, pleural effusion No shortness of breath, no abdominal pain, no further bleeding wants to go home. forgetful Review of Systems Review of Systems: Yes all other systems are reviewed and are negative Constitutional Constitutional: Denies chills and Denies fever(s) Cardiovascular Cardiovascular: Denies chest pain, Denies palpitations and Denies dyspnea Respiratory Respiratory: Denies cough and Denies dyspnea Gastrointestinal Gastrointestinal: Denies abdominal pain Endocrine Endocrine: Denies palpitations Physical Exam Vital Signs: Vital Signs: Last Vital Signs Temp 98.0 F 12/13/24 15:32 Pulse 81 12/13/24 15:32 Resp 18 12/13/24 15:32 BP 158/79 H 12/13/24 15:32 Pulse Ox 97 12/13/24 15:32 O2 Del Method Room Air 12/13/24 15:32 O2 Flow Rate 2 12/09/24 12:28 BMI result Body Mass Index 25.1 Const: General: cooperative, comfortable, no acute distress, alert and awake Nutritional Appearance: average body habitus Orientation/consciousness: patient oriented x3 Resp: Effort & Inspection: normal respiratory effort, able to speak in complete sentences, no respiratory distress and no use of accessory muscles Cardio: Rate: regular rate GI: Inspection: No distended Palpation (GI): Soft to palpation and nontender Neuro: General: patient oriented x3, moves all extremities and CN's II-XI intact bilaterally Objective Data Active Medications Acetaminophen (Acetaminophen 325 Mg Tablet) 650 mg PO Q6H PRN PRN Reason: Pain, Mild 1-3,fever,headache Last Admin: 12/12/24 11:52 Dose: 650 mg Documented By: LENIN Benzonatate (Benzonatate 100 Mg Capsule) 100 mg PO TID PRN PRN Reason: Cough Last Admin: 12/06/24 19:45 Dose: 100 mg Documented By: HIEU Calcitriol (Calcitriol 0.25 Mcg Capsule) 0.25 mcg PO Q2D@0900 [facility] Last Admin: 12/13/24 15:39 Dose: Not Given Documented By: LENIN Non-Admin Reason: Patient Refused Calcium Carbonate (Calcium Carbonate 750 Mg Tab.Chew) 750 mg PO Q4H PRN PRN Reason: Heartburn Dextrose (Dextrose 50 % 25 Gm/50 Ml Syringe) 25 gm IVPUSH Q15M PRN; Protocol PRN Reason: per Hypoglycemia Standing Ord. Ferrous Sulfate (Ferrous Sulfate 324 Mg Tablet.) 324 mg PO BID [facility] Glucose (Glucose Gel 15 Gm Gel..Gram.) 15 gm PO Q15M PRN; Protocol PRN Reason: per Hypoglycemia Standing Ord. Insulin Human Lispro (Insulin Lispro 100 Unit/Ml 3 Ml Vial) 0 unit SUBCUT QIDAS [facility]; Protocol Last Admin: 12/13/24 15:39 Dose: Not Given Documented By: LENIN Non-Admin Reason: No Insulin Coverage Lisinopril (Lisinopril 40 Mg Tablet) 40 mg PO DAILY [facility]; Protocol Last Admin: 12/13/24 08:44 Dose: 40 mg Documented By: LENIN Magnesium Hydroxide (Milk Of Magnesia 30 Ml Oral.Susp) 30 ml PO DAILY PRN PRN Reason: Constipation Melatonin (Melatonin 3 Mg Tablet) 6 mg PO BEDTIME PRN PRN Reason: Insomnia Last Admin: 12/06/24 19:45 Dose: 6 mg Documented By: HIEU Omeprazole (Omeprazole 40 Mg Capsule.) 40 mg PO BID@0630,1630 [facility] Last Admin: 12/13/24 15:39 Dose: Not Given Documented By: LENIN Non-Admin Reason: Patient Refused Sodium Chloride (0.9 % Sodium Chloride Flush 3 Ml Syringe) 3 ml IVFLUSH QSHIFT [facility] Last Admin: 12/13/24 15:37 Dose: 3 ml Documented By: LENIN Sucralfate (Sucralfate 1 Gm Tablet) 1 gm PO QIDACHS [facility] Last Admin: 12/13/24 15:39 Dose: Not Given Documented By: LENIN Non-Admin Reason: Patient Refused Labs 12/13/24 08:04 12/13/24 08:04 Labs: Laboratory Results - last 24 hr 12/12/24 12/12/24 12/13/24 16:37 20:24 06:58 MCV MCH MCHC RDW Plt Count MPV Absolute Nucleated RBC Nucleated RBC % (auto) Anion Gap Estim Creat Clear Calc Estimated GFR POC Glucose 89 91 105 Random Glucose Calcium 12/13/24 12/13/24 12/13/24 08:04 11:06 15:37 MCV 87.2 MCH 29.2 MCHC 33.4 RDW 16.2 H Plt Count 276 MPV 9.0 L Absolute Nucleated RBC 0.000 Nucleated RBC % (auto) 0.0 Anion Gap 9 L Estim Creat Clear Calc 44.9 Estimated GFR 50 POC Glucose 90 99 Random Glucose 92 Calcium 7.9 L Microbiology Microbiology Results: Microbiology 12/09/24 12:15 Gram Stain - Final Pleura Routine Culture - Final No growth after 2 days Anaerobic Culture - Preliminary No growth to date. Assessment and Plan (1) Pleural effusion: Status: Acute (2) Anemia in chronic kidney disease (CKD): Status: Acute Plan This is a 74-year-old male with a past medical history of HTN, HLD, dm, CAD, CKD, CHF-35-40%, AFib on Eliquis, anemia, hyperparathyroidism, osteoarthritis, memory impairment; recent admission to the hospital for C diff infection; presented to the hospital today with a chief complaint of generalized weakness. Acute blood loss anemia had blood per rectum overnight 12/10 History of duodenal ulcer HH dropped 6.7/20.6 2 units PRBC ordered; repeat H/H improved accordingly No further bleeding documented, H/H has remained stable GI following, egd now planned for Sunday as GI recommends repeat scope before Eliquis is resumed. Cardiology recommends to consider holding Eliquis indefinitely Continue Carafate, high-dose PPI Eliquis on hold tolerating diet right Pleural effusion CT showing moderate large right effusion; exudative question due to previous right upper quadrant fluid collection/bile leak s/p thoracentesis 12/09> 550 mL of reddish clear pleural fluid, culture negative, cytology negative for malignancy weaned off oxygen, comfortable on room air Hypokalemia Possibly due to decreased p.o. intake. Patient states he does not like our food He has refused potassium replacement Follow BMP Pneumonia Chest CT showing patchy left upper and lower lobe airspace densities with mediastinal lymphadenopathy no fever or leukocytosis Complete a course of antibiotics Recommend outpatient follow-up imaging to assess for resolution of lymphadenopathy KELSEY on CKD3. Resolved likely secondary to IV lasix HTN discussed with Nephrology Ok to restart lisinopril. As we are starting 20 mg of Lasix, we will reduce lisinopril to 20 mg daily as discussed with the Nephrology Bilateral lower extremity edema, Acute hypoxemic respiratory failure, Chronic CHF echo 12/05 shows mildly decreased left ventricular systolic function with EF 52% in some hypokinesis of the inferolateral wall and basal inferior segment, no valvular pathology Daily weights and I's and o's Cardiology following>Cardiology does not feel failure rather hypoalbuminemic state. BNP [id number] Weaned onto room air lasix stopped due to KELSEY and patient euvolemic Low-dose oral Lasix started as per Cardiology recommendation Diabetes 2 ss, ada diet Recent C diff infection completed vancomycin Persistent AFib acceptable rate control adjust as indicated Eliquis on hold for above anemia/bleeding Persistent abdominal pain resolved CT abdomen/pelvis showing similar appearing right posterior subcapsular hepatic fluid collection with intrahepatic extension. No fever, no elevated WBC count. Denies abdominal pain today discussed with surgery - no further management required inpatient, recommend outpatient follow-up in the office (with Manjula) Acute transaminitis CT abdomen similar appearing right posterior subcapsular hepatic fluid collection with no free air or bowel LFTs normalized, ALK phos trending down Eliquis on hold for anemia Full code Requires ongoing inpatient stay for endoscopy, monitoring of CBC Quality Stroke Does the patient have a stroke diagnosis?: No VTE Prior VTE?: No VTE Risk Level:: Medical - moderate - high VTE Device Contraindication: Treatment Not Indicated VTE Drug Contraindication: N/A - Med Ordered
[2024-12-13 20:00] VITALS: BP 153/74; PULSE 63; RESP 18; TEMP 36.7; O2SAT 98
[2024-12-13] MEDS: Ferrous Sulfate 324 MG TABLET.DR PO (21:01)
[2024-12-13 21:23] LABS: Glucose, Whole Blood 92 mg/dL (60-115)
[2024-12-13 23:43] VITALS: BP 164/62; PULSE 73; RESP 18; TEMP 36.7; O2SAT 96
[2024-12-14 03:15] VITALS: BP 158/75; PULSE 78; RESP 18; TEMP 36.7; O2SAT 99
[2024-12-14] MEDS: Omeprazole 40 MG CAPSULE.DR PO ×2 (05:53→16:48)
[2024-12-14 06:00] VITALS: BMI 27.1
[2024-12-14 07:19] LABS: Glucose, Whole Blood 93 mg/dL (60-115)
[2024-12-14 07:26] VITALS: BP 148/62; PULSE 70; RESP 18; TEMP 36.6; O2SAT 99
[2024-12-14] MEDS: 0.9 % Sodium Chloride Flush 3 ML SYRINGE IVFLUSH ×2 (08:32→12:04)
[2024-12-14] MEDS: Potassium Chloride ER 20 MEQ TAB.ER.PRT 40 MEQ PO (08:48)
[2024-12-14] MEDS: lisinopriL 20 MG TABLET PO (08:49)
[2024-12-14] MEDS: Furosemide 20 MG TABLET PO (08:50)
[2024-12-14 09:04] LABS: Anion Gap 11 (12-20); Blood Urea Nitrogen 27 mg/dL (9-16); Carbon Dioxide 25 mmol/L (22-29); Chloride 106 mmol/L (96-108); Estimated Glomerular Filt Rate 52; Glucose Random 91 mg/dL (60-115); Potassium 3.2 mmol/L (3.3-5.1); Sodium 139 mmol/L (135-145)
[2024-12-14 11:19] VITALS: BP 158/74; PULSE 75; RESP 16; TEMP 36.4; O2SAT 96
[2024-12-14 11:24] LABS: Glucose, Whole Blood 102 mg/dL (60-115)
[2024-12-14] MEDS: Ferrous Sulfate 324 MG TABLET.DR PO (12:03)
--- NOTE | 2024-12-14 12:24 | P.PNIM_ITS ---
Subjective Subjective Date of Service: 12/14/24 Interval History: seen and examined this morning follow up for pleural effusion, acute GI bleed No abdominal pain, no fever, no chills, no shortness a breath Remains forgetful, frequently asking to go home does not like out food, poor appetite Review of Systems Review of Systems: Yes all other systems are reviewed and are negative Constitutional Constitutional: Denies chills and Denies fever(s) Cardiovascular Cardiovascular: Denies chest pain, Denies palpitations and Denies dyspnea Respiratory Respiratory: Denies cough and Denies dyspnea Gastrointestinal Gastrointestinal: Denies abdominal pain, Denies nausea and Denies vomiting Endocrine Endocrine: Denies palpitations Physical Exam 2 Vital Signs: Vital Signs: Last Vital Signs Temp 97.6 F 12/14/24 11:19 Pulse 75 12/14/24 11:19 Resp 16 12/14/24 11:19 BP 158/74 H 12/14/24 11:19 Pulse Ox 96 12/14/24 11:19 O2 Del Method Room Air 12/14/24 11:19 O2 Flow Rate 2 12/09/24 12:28 BMI result Body Mass Index 27.1 Const: General: cooperative, comfortable, no acute distress, alert and awake Nutritional Appearance: average body habitus Orientation/consciousness: p atient oriented x3 Resp: Effort & Inspection: normal respiratory effort, able to speak in complete sentences, no respiratory distress and no use of accessory muscles Cardio: Rate: regular rate GI: Inspection: No distended Palpation (GI): Soft to palpation and nontender Neuro: General: patient oriented x3, moves all extremities and CN's II-XI intact bilaterally Objective Data Active Medications Acetaminophen (Acetaminophen 325 Mg Tablet) 650 mg PO Q6H PRN PRN Reason: Pain, Mild 1-3,fever,headache Last Admin: 12/12/24 11:52 Dose: 650 mg Benzonatate (Benzonatate 100 Mg Capsule) 100 mg PO TID PRN PRN Reason: Cough Last Admin: 12/06/24 19:45 Dose: 100 mg Documented By: HIEU Calcitriol (Calcitriol 0.25 Mcg Capsule) 0.25 mcg PO Q2D@0900 [facility] Last Admin: 12/13/24 15:39 Dose: Not Given Documented By: LENIN Non-Admin Reason: Patient Refused Calcium Carbonate (Calcium Carbonate 750 Mg Tab.Chew) 750 mg PO Q4H PRN PRN Reason: Heartburn Dextrose (Dextrose 50 % 25 Gm/50 Ml Syringe) 25 gm IVPUSH Q15M PRN; Protocol PRN Reason: per Hypoglycemia Standing Ord. Ferrous Sulfate (Ferrous Sulfate 324 Mg Tablet.) 324 mg PO BID [facility] Last Admin: 12/14/24 12:03 Dose: 324 mg Documented By: LENIN Furosemide (Furosemide 20 Mg Tablet) 20 mg PO DAILY [facility]; Protocol Last Admin: 12/14/24 08:50 Dose: 20 mg Documented By: LENIN Glucose (Glucose Gel 15 Gm Gel..Gram.) 15 gm PO Q15M PRN; Protocol PRN Reason: per Hypoglycemia Standing Ord. Potassium Chloride (Potassium Chloride/H20) 10 meq in 100 mls @ 100 mls/hr IV Q1H [facility] Stop: 12/14/24 14:29 Insulin Human Lispro (Insulin Lispro 100 Unit/Ml 3 Ml Vial) 0 unit SUBCUT QIDAS [facility]; Protocol Last Admin: 12/14/24 11:29 Dose: Not Given Documented By: LENIN Non-Admin Reason: No Insulin Coverage Lisinopril (Lisinopril 20 Mg Tablet) 20 mg PO DAILY [facility]; Protocol Last Admin: 12/14/24 08:49 Dose: 20 mg Documented By: LENIN Magnesium Hydroxide (Milk Of Magnesia 30 Ml Oral.Susp) 30 ml PO DAILY PRN PRN Reason: Constipation Melatonin (Melatonin 3 Mg Tablet) 6 mg PO BEDTIME PRN PRN Reason: Insomnia Last Admin: 12/06/24 19:45 Dose: 6 mg Documented By: HIEU Omeprazole (Omeprazole 40 Mg Capsule.) 40 mg PO BID@0630,1630 [facility] Last Admin: 12/14/24 05:53 Dose: 40 mg Documented By: CARMINA Sodium Chloride (0.9 % Sodium Chloride Flush 3 Ml Syringe) [facility] Last Admin: 12/14/24 12:04 Dose: 3 ml Documented By: LENIN Sucralfate (Sucralfate 1 Gm Tablet) 1 gm PO QIDACHS [facility] Last Admin: 12/14/24 11:29 Dose: Not Given Documented By: LENIN Non-Admin Reason: Patient Refused Labs 12/13/24 08:04 12/14/24 08:22 Labs: Laboratory Results - last 24 hr 12/13/24 12/13/24 12/14/24 15:37 21:16 07:09 Hold Purple Top Anion Gap Estim Creat Clear Calc Estimated GFR POC Glucose 99 92 93 Random Glucose Calcium 12/14/24 12/14/24 12/14/24 08:15 08:22 11:21 Hold Purple Top SEE NOTE Anion Gap 11 L Estim Creat Clear Calc 50.0 Estimated GFR 52 POC Glucose 102 Random Glucose 91 Calcium 8.0 L Microbiology Microbiology Results: Microbiology 12/09/24 12:15 Gram Stain - Final Pleura Routine Culture - Final No growth after 2 days Anaerobic Culture - Final NO GROWTH AFTER 5 DAYS Assessment and Plan (1) Pleural effusion: Status: Acute (2) Hypokalemia: Status: Acute Plan This is a 74-year-old male with a past medical history of HTN, HLD, dm, CAD, CKD, CHF-35-40%, AFib on Eliquis, anemia, hyperparathyroidism, osteoarthritis, memory impairment; recent admission to the hospital for C diff infection; presented to the hospital today with a chief complaint of generalized weakness. Acute blood loss anemia had blood per rectum overnight 12/10 History of duodenal ulcer HH dropped 6.7/20.6 2 units PRBC ordered; repeat H/H improved accordingly No further bleeding documented, H/H has remained stable GI following, egd now planned for Sunday as GI recommends repeat scope before Eliquis is resumed. Cardiology recommends to consider holding Eliquis indefinitely Continue Carafate, high-dose PPI Eliquis on hold tolerating diet right Pleural effusion CT showing moderate large right effusion; exudative question due to previous right upper quadrant fluid collection/bile leak s/p thoracentesis 12/09> 550 mL of reddish clear pleural fluid, culture negative, cytology negative for malignancy weaned off oxygen, comfortable on room air Hypokalemia Possibly due to decreased p.o. intake. Patient states he does not like our food He has refused potassium replacement, will try IV replacement Follow BMP Pneumonia Chest CT showing patchy left upper and lower lobe airspace densities with mediastinal lymphadenopathy no fever or leukocytosis Complete a course of antibiotics Recommend outpatient follow-up imaging to assess for resolution of lymphadenopathy KELSEY on CKD3. Resolved likely secondary to IV lasix HTN discussed with Nephrology Ok to restart lisinopril. As we are starting 20 mg of Lasix, we will reduce lisinopril to 20 mg daily as discussed with the Nephrology Bilateral lower extremity edema, Acute hypoxemic respiratory failure, Chronic CHF echo 12/05 shows mildly decreased left ventricular systolic function with EF 52% in some hypokinesis of the inferolateral wall and basal inferior segment, no valvular pathology Daily weights and I's and o's Cardiology following>Cardiology does not feel failure rather hypoalbuminemic state. BNP 430>[id number] Weaned onto room air lasix stopped due to KELSEY and patient euvolemic Low-dose oral Lasix started as per Cardiology recommendation Diabetes 2 ss, ada diet Recent C diff infection completed vancomycin Persistent AFib acceptable rate control adjust as indicated Eliquis on hold for above anemia/bleeding Persistent abdominal pain resolved CT abdomen/pelvis showing similar appearing right posterior subcapsular hepatic fluid collection with intrahepatic extension. No fever, no elevated WBC count. Denies abdominal pain today discussed with surgery - no further management required inpatient, recommend outpatient follow-up in the office (with Manjula) Acute transaminitis CT abdomen similar appearing right posterior subcapsular hepatic fluid collection with no free air or bowel LFTs normalized, ALK phos trending down Unstageable pressure injury to sacrum Seen by wound care nurse Continue local wound care dvt ppx - Eliquis on hold for anemia; mechanical devices, pt has been resistant to get out of bed/ambulate Full code Requires ongoing inpatient stay for endoscopy, monitoring of CBC Quality Stroke Does the patient have a stroke diagnosis?: No VTE Prior VTE?: No VTE Risk Level:: Medical - moderate - high VTE Device Contraindication: Treatment Not Indicated VTE Drug Contraindication: N/A - Med Ordered
[2024-12-14] MEDS: Potassium Chloride/H20 10 MEQ/100 ML PIGGYBACK 100 MEQ IV ×2 (12:48→14:34)
[2024-12-14 15:20] LABS: Hematocrit 30.7 % (42.0-52.0); Hemoglobin 10.5 g/dl (14.0-18.0)
[2024-12-14 16:00] VITALS: BP 132/61; PULSE 89; RESP 18; TEMP 36.7; O2SAT 99
[2024-12-14 16:11] LABS: Glucose, Whole Blood 99 mg/dL (60-115)
[2024-12-14 20:09] VITALS: BP 153/72; PULSE 61; RESP 18; TEMP 37.1; O2SAT 99
[2024-12-14 21:14] LABS: Glucose, Whole Blood 93 mg/dL (60-115)
[2024-12-14] MEDS: Acetaminophen 325 MG TABLET 650 MG PO (22:26)
[2024-12-15] VITALS (8 sets, daily range): BP systolic 132–172; BP diastolic 60–88; PULSE 64–82; RESP 16–20; TEMP 36.2–37; O2SAT 96–100
[2024-12-15 06:02] LABS: Glucose, Whole Blood 78 mg/dL (60-115)
[2024-12-15 06:59] LABS: Mean Corpuscular HGB Conc 33.3 g/dl (31.0-36.0); Mean Corpuscular Hemoglobin 29.3 pg (27.0-33.0); Platelet Count 308 X10*3/uL (160-400); Red Blood Count 3.41 X10*6/uL (4.60-5.80); Red Cell Distribution Width 16.8 % (11.0-16.0); White Blood Count 12.8 X10*3/uL (4.8-10.8)
[2024-12-15 07:16] LABS: Anion Gap 10 (12-20); Blood Urea Nitrogen 28 mg/dL (9-16); Calcium 8.1 mg/dL (8.4-10.2); Carbon Dioxide 26 mmol/L (22-29); Chloride 106 mmol/L (96-108); Estimated Glomerular Filt Rate 40; Glucose Random 86 mg/dL (60-115); Potassium 4.4 mmol/L (3.3-5.1); Sodium 138 mmol/L (135-145)
--- NOTE | 2024-12-15 07:35 | P.PNGI_ITS ---
Subjective Subjective Date of Service: 12/15/24 Interval History: no more bleeding no n/v feels well Critical Care Time (minutes): 0 Physical Exam 2 Vital Signs: Vital Signs: Last Vital Signs Temp 97.8 F 12/15/24 07:00 Pulse 68 12/15/24 07:00 Resp 16 12/15/24 07:00 BP 163/61 H 12/15/24 07:00 Pulse Ox 98 12/15/24 07:00 O2 Del Method Room Air 12/15/24 07:00 O2 Flow Rate 2 12/09/24 12:28 BMI result Body Mass Index 27.1 EXAM: GENERAL: The patient is well developed and nontoxic. VITAL SIGNS:see workflow HEENT: Nonicteric sclerae, PERRLA, EOMI. Oropharynx clear. Moist mucous membranes. Conjunctivae appear well perfused. No thyroid mass. CHEST: Chest wall is nontender. HEART: Regular rate and rhythm without murmurs. LUNGS: Clear to auscultation bilaterally. ABDOMEN: Soft, positive bowel sounds, nontender, no organomegaly.no flank tenderness SKIN: No rash, no excessive bruising, petechiae, or purpura. NEUROLOGIC: Cranial nerves II-XII intact without motor/sensory deficit. Psych: normal affect Objective Data Labs 12/15/24 06:04 12/15/24 06:04 Labs: Laboratory Results - last 24 hr 12/14/24 12/14/24 12/14/24 08:15 08:22 11:21 WBC RBC Hgb Hct MCV MCH MCHC RDW Plt Count MPV Absolute Nucleated RBC Nucleated RBC % (auto) Hold Purple Top SEE NOTE Sodium 139 Potassium 3.2 L Chloride 106 Carbon Dioxide 25 Anion Gap 11 L BUN 27 H Creatinine 1.35 Estim Creat Clear Calc 50.0 Estimated GFR 52 POC Glucose 102 Random Glucose 91 Calcium 8.0 L 12/14/24 12/14/24 12/14/24 15:13 15:50 21:03 WBC RBC Hgb 10.5 L Hct 30.7 L MCV MCH MCHC RDW Plt Count MPV Absolute Nucleated RBC Nucleated RBC % (auto) Hold Purple Top Sodium Potassium Chloride Carbon Dioxide Anion Gap BUN Creatinine Estim Creat Clear Calc Estimated GFR POC Glucose 99 93 Random Glucose Calcium 12/15/24 12/15/24 05:58 06:04 WBC 12.8 H RBC 3.41 L Hgb 10.0 L Hct 30.0 L MCV 88.0 MCH 29.3 MCHC 33.3 RDW 16.8 H Plt Count 308 MPV 9.0 L Absolute Nucleated RBC 0.000 Nucleated RBC % (auto) 0.0 Hold Purple Top Sodium 138 Potassium 4.4 D Chloride 106 Carbon Dioxide 26 Anion Gap 10 L BUN 28 H Creatinine 1.69 H Estim Creat Clear Calc 40.0 Estimated GFR 40 POC Glucose 78 Random Glucose 86 Calcium 8.1 L Microbiology Microbiology Results: Microbiology 12/09/24 12:15 Pleura Gram Stain - Final 12/09/24 12:15 Pleura Routine Culture - Final No growth after 2 days 12/09/24 12:15 Pleura Anaerobic Culture - Final NO GROWTH AFTER 5 DAYS Procedures Date of Service Date of Service: 12/15/24 Progress Note: A&P Assessment and plan (1) GI bleed: Status: Acute Plan 1/GI bleed Plan: 1/ EGD today, reassess ulcer and treat if any targets Time Spent With Patient Time: Total time managing care of this patient today ____ minutes. Quality Stroke Does the patient have a stroke diagnosis?: No VTE Prior VTE?: No VTE Risk Level:: Medical - moderate - high VTE Device Contraindication: Treatment Not Indicated VTE Drug Contraindication: N/A - Med Ordered
--- NOTE | 2024-12-15 07:36 | MHC.SHP ---
Pre-Procedural Eval Section A - 24 Hr Update-Section A only Date of Service: 12/15/24 The patient is an INPATIENT: Yes The patient has been examined within 24 hours of the surgical procedure. The History & Physical has been completed within 30 days and I have reviewed it.: Yes Section B - Complete if H&P > 30 days Chief Complaint: CHF Allergies: Allergies Allergy/AdvReac Type Severity Reaction Status Date / Time No Known Allergies Allergy Verified 12/04/24 20:36 [No Known Allergies*] Plan Diagnosis/Plan: Unchanged I have reviewed the history and physical and performed a pertinent physical examination on my patient. No changes have occurred unless specified. EGD for gi bleed Time Spent With Patient Time: Total time managing care of this patient today ____ minutes.
--- NOTE | 2024-12-15 07:39 | HO.ANESPROP2 ---
HPI - Anesthesia Eval Consult details Narrative: 74 yo male patient for EGD PMFSH Active Problems Active Problems: All Active Problems GI bleed (Acute) Hypokalemia (Acute) Pleural effusion (Acute) Hypertension (Acute) CKD (chronic kidney disease) (Acute) Leg swelling (Acute) CHF (congestive heart failure) (Acute) Clostridium difficile colitis (Acute) Status post endoscopic retrograde cholangiopancreatography (Acute) Calculous cholecystitis (Acute) Secondary hyperparathyroidism (of renal origin) (Acute) Hydronephrosis (Acute) Osteoarthritis of left knee (Acute) Preop cardiovascular exam (Acute) Iron deficiency (Acute) Anemia in chronic kidney disease (CKD) (Acute) Hospital discharge follow-up (Acute) Chronic atrial fibrillation (Acute) Former smoker (Acute) Depression (Acute) High cholesterol (Acute) New onset dementia- patient can answer most questions but initially did not know why he was here. Later able to answer. Unable to reach family members Past Medical History Medical History CKD (chronic kidney disease) Hypertension CHF (congestive heart failure) CKD (chronic kidney disease) stage 4, GFR 15-29 ml/min Obesity (BMI 30.0-34.9) Cardiomyopathy Stroke Chronic atrial fibrillation CKD (chronic kidney disease) Former smoker Depression Diabetes High cholesterol Family History Family History Father No problems noted. Mother Diabetes Hypertension Cancer Son No problems noted. Son No problems noted. Son No problems noted. Daughter No problems noted. Daughter No problems noted. Family history of problems with anesthesia: No Surgical History Surgical History History of aneurysm History of shoulder surgery History of Problems with Anesthesia: No Social History Social History Household Members: None Household Members Other:: Housing: Apartment Are you a primary home health care respiratory therapist to a significant other at home: No Do you presently have visiting nurse or other home services: No Alcohol intake: never Patient Tobacco Use Status: Former Tobacco user Smoked in Last 30 Days: No Use of substances other than those prescribed or required for medical reasons: No Substance Use Type: Marijuana Currently Displaying Signs/Symptoms of Drug Intoxication Withdrawal: No Have you been hit, kicked, punched, or otherwise hurt by someone within the past year? If so, by whom?: No Are you DNR?: No Advance Directives: No Advance Directives Information Provided: Yes Do you have a plan to hurt others: No Plan Poor oral hygiene: No service: No Current occupational status: disabled Meds Allergies Allergy/AdvReac Type Severity Reaction Status Date / Time No Known Allergies Allergy Verified 12/04/24 20:36 [No Known Allergies*] Active Medications: Current Medications Acetaminophen (Acetaminophen 325 Mg Tablet) 650 mg PO Q6H PRN PRN Reason: Pain, Mild 1-3,fever,headache Last Admin: 12/14/24 22:26 Dose: 650 mg Benzonatate (Benzonatate 100 Mg Capsule) 100 mg PO TID PRN PRN Reason: Cough Last Admin: 12/06/24 19:45 Dose: 100 mg Calcitriol (Calcitriol 0.25 Mcg Capsule) 0.25 mcg PO Q2D@0900 [facility] Last Admin: 12/13/24 15:39 Dose: Not Given Calcium Carbonate (Calcium Carbonate 750 Mg Tab.Chew) 750 mg PO Q4H PRN PRN Reason: Heartburn Dextrose (Dextrose 50 % 25 Gm/50 Ml Syringe) 25 gm IVPUSH Q15M PRN; Protocol PRN Reason: per Hypoglycemia Standing Ord. Docusate Sodium (Docusate Sodium 100 Mg Capsule) 100 mg PO BEDTIME PRN PRN Reason: constipation Ferrous Sulfate (Ferrous Sulfate 324 Mg Tablet.Dr) 324 mg PO BID [facility] Last Admin: 12/14/24 12:03 Dose: 324 mg Furosemide (Furosemide 20 Mg Tablet) 20 mg PO DAILY [facility]; Protocol Last Admin: 12/14/24 08:50 Dose: 20 mg Glucose (Glucose Gel 15 Gm Gel..Gram.) 15 gm PO Q15M PRN; Protocol PRN Reason: per Hypoglycemia Standing Ord. Insulin Human Lispro (Insulin Lispro 100 Unit/Ml 3 Ml Vial) 0 unit SUBCUT QIDACHS [facility]; Protocol Last Admin: 12/14/24 21:22 Dose: Not Given Lisinopril (Lisinopril 20 Mg Tablet) 20 mg PO DAILY [facility]; Protocol Last Admin: 12/14/24 08:49 Dose: 20 mg Magnesium Hydroxide (Milk Of Magnesia 30 Ml Oral.Susp) 30 ml PO DAILY PRN PRN Reason: Constipation Melatonin (Melatonin 3 Mg Tablet) 6 mg PO BEDTIME PRN PRN Reason: Insomnia Last Admin: 12/06/24 19:45 Dose: 6 mg Omeprazole (Omeprazole 40 Mg Capsule.Dr) 40 mg PO BID@0630,1630 [facility] Last Admin: 12/15/24 05:30 Dose: Not Given Sodium Chloride (0.9 % Sodium Chloride Flush 3 Ml Syringe) 3 ml IVFLUSH QSHIFT [facility] Last Admin: 12/14/24 23:55 Dose: Not Given Sucralfate (Sucralfate 1 Gm Tablet) 1 gm PO QIDACHS [facility] Last Admin: 12/14/24 20:04 Dose: Not Given Home Medications ?Medication ?Instructions ?Recorded ?Confirmed ?Last Taken ?Type blood-glucose meter #1 ea 05/14/20 01/14/24 Unknown History lancets #100 ea 05/14/20 01/14/24 Unknown History atorvastatin 40 mg tablet 40 mg PO DAILY 12/19/22 12/05/24 11/11/24 History lisinopril 40 mg tablet 40 mg PO DAILY 10/20/24 12/05/24 11/11/24 History apixaban 2.5 mg tablet (Eliquis) 2.5 mg PO BID 12/05/24 12/05/24 Unknown History Exam Height,Weight and Vital Signs: Height 5 ft 7.5 in Weight 79.8 kg Last Vital Signs Temp 97.8 F 12/15/24 07:00 Pulse 68 12/15/24 07:00 Resp 16 12/15/24 07:00 BP 163/61 H 12/15/24 07:00 Pulse Ox 98 12/15/24 07:00 O2 Del Method Room Air 12/15/24 07:00 O2 Flow Rate 2 12/09/24 12:28 Pertinent Lab Results Pertinent Lab Results: Laboratory Tests 12/04/24 12/05/24 12/05/24 21:28 06:54 07:07 WBC 11.7 H 13.1 H RBC 3.52 L 3.77 L Hgb 10.1 L 10.7 L Hct 30.2 L 33.1 L MCV 85.8 87.8 MCH 28.7 28.4 MCHC 33.4 32.3 RDW 16.3 H 16.2 H Plt Count 229 D 259 MPV 8.6 L 9.2 L Immature Gran % (Auto) 0.5 H 0.9 H Neut % (Auto) 85.8 H 83.5 H Lymph % (Auto) 8.6 L 10.3 L [place] % (Auto) 4.7 4.9 Eos % (Auto) 0.2 0.2 Baso % (Auto) 0.2 0.2 Lymph # (Auto) 1.0 L 1.4 Br[place]ley # (Auto) 0.6 0.6 Eos # (Auto) 0.0 0.0 Baso # (Auto) 0.0 0.0 Abs Immat Gran (auto) 0.06 H 0.12 H Absolute Neuts (auto) 10.1 H 11.0 H Absolute Nucleated RBC 0.000 0.000 Nucleated RBC % (auto) 0.0 0.0 Smear Path Review Hold Purple Top PT INR Sodium 137 139 Potassium 3.9 4.4 Chloride 105 103 Carbon Dioxide 26 28 Anion Gap 10 L 12 BUN 25 H 24 H Creatinine 1.49 H 1.55 H Estim Creat Clear Calc 46.3 43.8 Estimated GFR 46 44 POC Glucose 89 Random Glucose 91 84 Fasting Glucose Calcium 8.3 L 8.5 Total Bilirubin 0.8 0.9 Direct Bilirubin AST 59 H 70 H ALT 64 H 65 H Alkaline Phosphatase 585 H 632 H Lactate Dehydrogenase Troponin I High Sens 23.6 B-Natriuretic Peptide 430 H Total Protein 6.2 L 6.4 L Albumin 2.5 L 2.5 L Procalcitonin 0.54 Peritoneal WBC Peritoneal RBC Periton Neutrophils Periton Lymphocytes Peritoneal Monocytes Peritoneal Eosinophils Peritoneal Basophils Peritoneal Other Cells Pleural WBC Pleural RBC Pleural Neutrophils Pleural Lymphocytes Pleural Monocytes Pleural Total Protein Pleural LDH Blood Type Antibody Screen Crossmatch 12/05/24 12/05/24 12/05/24 11:26 15:39 20:40 WBC RBC Hgb Hct MCV MCH MCHC RDW Plt Count MPV Immature Gran % (Auto) Neut % (Auto) Lymph % (Auto) Br[place] % (Auto) Eos % (Auto) Baso % (Auto) Lymph # (Auto) [place] # (Auto) Eos # (Auto) Baso # (Auto) Abs Immat Gran (auto) Absolute Neuts (auto) Absolute Nucleated RBC Nucleated RBC % (auto) Smear Path Review Hold Purple Top PT INR Sodium Potassium Chloride Carbon Dioxide Anion Gap BUN Creatinine Estim Creat Clear Calc Estimated GFR POC Glucose 117 H 99 119 H Random Glucose Fasting Glucose Calcium Total Bilirubin Direct Bilirubin AST ALT Alkaline Phosphatase Lactate Dehydrogenase Troponin I High Sens B-Natriuretic Peptide Total Protein Albumin Procalcitonin Peritoneal WBC Peritoneal RBC Periton Neutrophils Periton Lymphocytes Peritoneal Monocytes Peritoneal Eosinophils Peritoneal Basophils Peritoneal Other Cells Pleural WBC Pleural RBC Pleural Neutrophils Pleural Lymphocytes Pleural Monocytes Pleural Total Protein Pleural LDH Blood Type Antibody Screen Crossmatch 12/06/24 12/06/24 12/06/24 06:22 07:41 11:31 WBC 10.0 RBC 3.39 L Hgb 9.8 L Hct 29.0 L MCV 85.5 MCH 28.9 MCHC 33.8 RDW 16.3 H Plt Count 233 MPV 9.0 L Immature Gran % (Auto) 0.5 H Neut % (Auto) 83.7 H Lymph % (Auto) 10.3 L [place] % (Auto) 4.7 Eos % (Auto) 0.6 Baso % (Auto) 0.2 Lymph # (Auto) 1.0 L [place] # (Auto) 0.5 Eos # (Auto) 0.1 Baso # (Auto) 0.0 Abs Immat Gran (auto) 0.05 H Absolute Neuts (auto) 8.3 Absolute Nucleated RBC 0.000 Nucleated RBC % (auto) 0.0 Smear Path Review Hold Purple Top PT INR Sodium 137 Potassium 3.5 D Chloride 101 Carbon Dioxide 26 Anion Gap 14 BUN 22 H Creatinine 1.45 H Estim Creat Clear Calc 46.8 Estimated GFR 48 POC Glucose 99 106 Random Glucose Fasting Glucose 116 H Calcium 8.7 Total Bilirubin 1.0 Direct Bilirubin AST 42 H ALT 46 H Alkaline Phosphatase 491 H Lactate Dehydrogenase Troponin I High Sens B-Natriuretic Peptide Total Protein 6.6 Albumin 3.5 Procalcitonin Peritoneal WBC Peritoneal RBC Periton Neutrophils Periton Lymphocytes Peritoneal Monocytes Peritoneal Eosinophils Peritoneal Basophils Peritoneal Other Cells Pleural WBC Pleural RBC Pleural Neutrophils Pleural Lymphocytes Pleural Monocytes Pleural Total Protein Pleural LDH Blood Type Antibody Screen Crossmatch 12/06/24 12/06/24 12/06/24 12:18 16:03 19:29 WBC RBC Hgb Hct MCV MCH MCHC RDW Plt Count MPV Immature Gran % (Auto) Neut % (Auto) Lymph % (Auto) Brantley % (Auto) Eos % (Auto) Baso % (Auto) Lymph # (Auto) [place] # (Auto) Eos # (Auto) Baso # (Auto) Abs Immat Gran (auto) Absolute Neuts (auto) Absolute Nucleated RBC Nucleated RBC % (auto) Smear Path Review Hold Purple Top PT INR Sodium Potassium Chloride Carbon Dioxide Anion Gap BUN Creatinine Estim Creat Clear Calc Estimated GFR POC Glucose 124 H 142 H Random Glucose Fasting Glucose Calcium Total Bilirubin Direct Bilirubin AST ALT Alkaline Phosphatase Lactate Dehydrogenase Troponin I High Sens B-Natriuretic Peptide 973 H Total Protein Albumin Procalcitonin Peritoneal WBC Peritoneal RBC Periton Neutrophils Periton Lymphocytes Peritoneal Monocytes Peritoneal Eosinophils Peritoneal Basophils Peritoneal Other Cells Pleural WBC Pleural RBC Pleural Neutrophils Pleural Lymphocytes Pleural Monocytes Pleural Total Protein Pleural LDH Blood Type Antibody Screen Crossmatch 12/07/24 12/07/24 12/07/24 05:53 07:18 11:47 WBC RBC Hgb Hct MCV MCH MCHC RDW Plt Count MPV Immature Gran % (Auto) Neut % (Auto) Lymph % (Auto) [place] % (Auto) Eos % (Auto) Baso % (Auto) Lymph # (Auto) [place] # (Auto) Eos # (Auto) Baso # (Auto) Abs Immat Gran (auto) Absolute Neuts (auto) Absolute Nucleated RBC Nucleated RBC % (auto) Smear Path Review Hold Purple Top PT INR Sodium 137 Potassium 3.4 Chloride 102 Carbon Dioxide 26 Anion Gap 12 BUN 37 H Creatinine 1.38 Estim Creat Clear Calc 49.2 Estimated GFR 51 POC Glucose 98 107 Random Glucose 106 Fasting Glucose Calcium 8.2 L Total Bilirubin Direct Bilirubin AST ALT Alkaline Phosphatase Lactate Dehydrogenase Troponin I High Sens B-Natriuretic Peptide 1409 H Total Protein Albumin Procalcitonin Peritoneal WBC Peritoneal RBC Periton Neutrophils Periton Lymphocytes Peritoneal Monocytes Peritoneal Eosinophils Peritoneal Basophils Peritoneal Other Cells Pleural WBC Pleural RBC Pleural Neutrophils Pleural Lymphocytes Pleural Monocytes Pleural Total Protein Pleural LDH Blood Type Antibody Screen Crossmatch 12/07/24 12/07/24 12/08/24 15:49 20:03 06:34 WBC RBC Hgb Hct MCV MCH MCHC RDW Plt Count MPV Immature Gran % (Auto) Neut % (Auto) Lymph % (Auto) [place] % (Auto) Eos % (Auto) Baso % (Auto) Lymph # (Auto) [place] # (Auto) Eos # (Auto) Baso # (Auto) Abs Immat Gran (auto) Absolute Neuts (auto) Absolute Nucleated RBC Nucleated RBC % (auto) Smear Path Review Hold Purple Top PT INR Sodium 140 Potassium 3.1 L Chloride 103 Carbon Dioxide 26 Anion Gap 14 BUN 55 H Creatinine 1.55 H Estim Creat Clear Calc 43.7 Estimated GFR 44 POC Glucose 128 H 103 Random Glucose 98 Fasting Glucose Calcium 8.4 Total Bilirubin 0.9 Direct Bilirubin 0.4 AST 34 ALT 24 Alkaline Phosphatase 322 H Lactate Dehydrogenase Troponin I High Sens B-Natriuretic Peptide 434 H Total Protein 5.9 L Albumin 2.7 L Procalcitonin Peritoneal WBC Peritoneal RBC Periton Neutrophils Periton Lymphocytes Peritoneal Monocytes Peritoneal Eosinophils Peritoneal Basophils Peritoneal Other Cells Pleural WBC Pleural RBC Pleural Neutrophils Pleural Lymphocytes Pleural Monocytes Pleural Total Protein Pleural LDH Blood Type Antibody Screen Crossmatch 12/08/24 12/08/24 12/08/24 07:00 10:49 15:50 WBC RBC Hgb Hct MCV MCH MCHC RDW Plt Count MPV Immature Gran % (Auto) Neut % (Auto) Lymph % (Auto) [place] % (Auto) Eos % (Auto) Baso % (Auto) Lymph # (Auto) [place] # (Auto) Eos # (Auto) Baso # (Auto) Abs Immat Gran (auto) Absolute Neuts (auto) Absolute Nucleated RBC Nucleated RBC % (auto) Smear Path Review Hold Purple Top PT INR Sodium Potassium Chloride Carbon Dioxide Anion Gap BUN Creatinine Estim Creat Clear Calc Estimated GFR POC Glucose 92 110 107 Random Glucose Fasting Glucose Calcium Total Bilirubin Direct Bilirubin AST ALT Alkaline Phosphatase Lactate Dehydrogenase Troponin I High Sens B-Natriuretic Peptide Total Protein Albumin Procalcitonin Peritoneal WBC Peritoneal RBC Periton Neutrophils Periton Lymphocytes Peritoneal Monocytes Peritoneal Eosinophils Peritoneal Basophils Peritoneal Other Cells Pleural WBC Pleural RBC Pleural Neutrophils Pleural Lymphocytes Pleural Monocytes Pleural Total Protein Pleural LDH Blood Type Antibody Screen Crossmatch 12/08/24 12/09/24 12/09/24 20:32 06:58 08:26 WBC RBC Hgb Hct MCV MCH MCHC RDW Plt Count MPV Immature Gran % (Auto) Neut % (Auto) Lymph % (Auto) [place] % (Auto) Eos % (Auto) Baso % (Auto) Lymph # (Auto) [place] # (Auto) Eos # (Auto) Baso # (Auto) Abs Immat Gran (auto) Absolute Neuts (auto) Absolute Nucleated RBC Nucleated RBC % (auto) Smear Path Review Hold Purple Top PT 24.4 H D INR 2.1 H Sodium 140 Potassium 3.6 Chloride 106 Carbon Dioxide 28 Anion Gap 10 L BUN 59 H Creatinine 1.48 H Estim Creat Clear Calc 45.9 Estimated GFR 47 POC Glucose 108 129 H Random Glucose 135 H Fasting Glucose Calcium 8.1 L Total Bilirubin Direct Bilirubin AST ALT Alkaline Phosphatase Lactate Dehydrogenase Troponin I High Sens B-Natriuretic Peptide Total Protein Albumin Procalcitonin Peritoneal WBC Peritoneal RBC Periton Neutrophils Periton Lymphocytes Peritoneal Monocytes Peritoneal Eosinophils Peritoneal Basophils Peritoneal Other Cells Pleural WBC Pleural RBC Pleural Neutrophils Pleural Lymphocytes Pleural Monocytes Pleural Total Protein Pleural LDH Blood Type Antibody Screen Crossmatch 12/09/24 12/09/24 12/09/24 10:47 12:15 16:25 WBC RBC Hgb Hct MCV MCH MCHC RDW Plt Count MPV Immature Gran % (Auto) Neut % (Auto) Lymph % (Auto) [place] % (Auto) Eos % (Auto) Baso % (Auto) Lymph # (Auto) [place] # (Auto) Eos # (Auto) Baso # (Auto) Abs Immat Gran (auto) Absolute Neuts (auto) Absolute Nucleated RBC Nucleated RBC % (auto) Smear Path Review Hold Purple Top PT INR Sodium Potassium Chloride Carbon Dioxide Anion Gap BUN Creatinine Estim Creat Clear Calc Estimated GFR POC Glucose 122 H 104 Random Glucose Fasting Glucose Calcium Total Bilirubin Direct Bilirubin AST ALT Alkaline Phosphatase Lactate Dehydrogenase Troponin I High Sens B-Natriuretic Peptide Total Protein Albumin Procalcitonin Peritoneal WBC Cancelled Peritoneal RBC Cancelled Periton Neutrophils Cancelled Periton Lymphocytes Cancelled Peritoneal Monocytes Cancelled Peritoneal Eosinophils Cancelled Peritoneal Basophils Cancelled Peritoneal Other Cells Cancelled Pleural WBC 1.463 Pleural RBC 0.014 Pleural Neutrophils 38 Pleural Lymphocytes 8 Pleural Monocytes 54 Pleural Total Protein 3.0 Pleural LDH 125 Blood Type Antibody Screen Crossmatch 12/09/24 12/10/24 12/10/24 20:23 07:05 08:54 WBC 9.2 RBC 2.35 L D Hgb 6.7 L* D Hct 20.6 L* D MCV 87.7 MCH 28.5 MCHC 32.5 RDW 16.4 H Plt Count 279 MPV 9.1 L Immature Gran % (Auto) Neut % (Auto) Lymph % (Auto) [place] % (Auto) Eos % (Auto) Baso % (Auto) Lymph # (Auto) [place] # (Auto) Eos # (Auto) Baso # (Auto) Abs Immat Gran (auto) Absolute Neuts (auto) Absolute Nucleated RBC 0.000 Nucleated RBC % (auto) 0.0 Smear Path Review SEE NOTE Hold Purple Top PT INR Sodium 139 Potassium 3.5 Chloride 103 Carbon Dioxide 26 Anion Gap 14 BUN 61 H Creatinine 1.62 H Estim Creat Clear Calc 41.9 Estimated GFR 42 POC Glucose 104 94 Random Glucose 104 Fasting Glucose Calcium 8.1 L Total Bilirubin Direct Bilirubin AST ALT Alkaline Phosphatase Lactate Dehydrogenase Troponin I High Sens B-Natriuretic Peptide Total Protein Albumin Procalcitonin Peritoneal WBC Peritoneal RBC Periton Neutrophils Periton Lymphocytes Peritoneal Monocytes Peritoneal Eosinophils Peritoneal Basophils Peritoneal Other Cells Pleural WBC Pleural RBC Pleural Neutrophils Pleural Lymphocytes Pleural Monocytes Pleural Total Protein Pleural LDH Blood Type Antibody Screen Crossmatch 12/10/24 12/10/24 12/10/24 11:05 14:05 16:37 WBC RBC Hgb Hct MCV MCH MCHC RDW Plt Count MPV Immature Gran % (Auto) Neut % (Auto) Lymph % (Auto) [place] % (Auto) Eos % (Auto) Baso % (Auto) Lymph # (Auto) [place] # (Auto) Eos # (Auto) Baso # (Auto) Abs Immat Gran (auto) Absolute Neuts (auto) Absolute Nucleated RBC Nucleated RBC % (auto) Smear Path Review Hold Purple Top PT INR Sodium Potassium Chloride Carbon Dioxide Anion Gap BUN Creatinine Estim Creat Clear Calc Estimated GFR POC Glucose 99 125 H Random Glucose Fasting Glucose Calcium Total Bilirubin Direct Bilirubin AST ALT Alkaline Phosphatase Lactate Dehydrogenase Troponin I High Sens B-Natriuretic Peptide Total Protein Albumin Procalcitonin Peritoneal WBC Peritoneal RBC Periton Neutrophils Periton Lymphocytes Peritoneal Monocytes Peritoneal Eosinophils Peritoneal Basophils Peritoneal Other Cells Pleural WBC Pleural RBC Pleural Neutrophils Pleural Lymphocytes Pleural Monocytes Pleural Total Protein Pleural LDH Blood Type B Positive B Positive Antibody Screen NEGATIVE NEGATIVE Crossmatch See Detail See Detail 12/10/24 12/11/24 12/11/24 20:43 06:59 07:44 WBC 8.0 RBC 3.23 L D Hgb 9.3 L D Hct 27.9 L D MCV 86.4 MCH 28.8 MCHC 33.3 RDW 15.8 Plt Count 268 MPV 9.2 L Immature Gran % (Auto) Neut % (Auto) Lymph % (Auto) [place] % (Auto) Eos % (Auto) Baso % (Auto) Lymph # (Auto) [place] # (Auto) Eos # (Auto) Baso # (Auto) Abs Immat Gran (auto) Absolute Neuts (auto) Absolute Nucleated RBC 0.000 Nucleated RBC % (auto) 0.0 Smear Path Review Hold Purple Top PT INR Sodium 138 Potassium 3.9 Chloride 105 Carbon Dioxide 27 Anion Gap 10 L BUN 54 H Creatinine 1.69 H Estim Creat Clear Calc 36.9 Estimated GFR 40 POC Glucose 100 93 Random Glucose 94 Fasting Glucose Calcium 8.2 L Total Bilirubin 0.9 Direct Bilirubin 0.4 AST 29 ALT 20 Alkaline Phosphatase 254 H Lactate Dehydrogenase 227 Troponin I High Sens B-Natriuretic Peptide Total Protein 5.7 L Albumin 2.5 L Procalcitonin Peritoneal WBC Peritoneal RBC Periton Neutrophils Periton Lymphocytes Peritoneal Monocytes Peritoneal Eosinophils Peritoneal Basophils Peritoneal Other Cells Pleural WBC Pleural RBC Pleural Neutrophils Pleural Lymphocytes Pleural Monocytes Pleural Total Protein Pleural LDH Blood Type Antibody Screen Crossmatch 12/11/24 12/11/24 12/11/24 10:50 16:05 20:45 WBC RBC Hgb Hct MCV MCH MCHC RDW Plt Count MPV Immature Gran % (Auto) Neut % (Auto) Lymph % (Auto) [place] % (Auto) Eos % (Auto) Baso % (Auto) Lymph # (Auto) [place] # (Auto) Eos # (Auto) Baso # (Auto) Abs Immat Gran (auto) Absolute Neuts (auto) Absolute Nucleated RBC Nucleated RBC % (auto) Smear Path Review Hold Purple Top PT INR Sodium Potassium Chloride Carbon Dioxide Anion Gap BUN Creatinine Estim Creat Clear Calc Estimated GFR POC Glucose 90 148 H 149 H Random Glucose Fasting Glucose Calcium Total Bilirubin Direct Bilirubin AST ALT Alkaline Phosphatase Lactate Dehydrogenase Troponin I High Sens B-Natriuretic Peptide Total Protein Albumin Procalcitonin Peritoneal WBC Peritoneal RBC Periton Neutrophils Periton Lymphocytes Peritoneal Monocytes Peritoneal Eosinophils Peritoneal Basophils Peritoneal Other Cells Pleural WBC Pleural RBC Pleural Neutrophils Pleural Lymphocytes Pleural Monocytes Pleural Total Protein Pleural LDH Blood Type Antibody Screen Crossmatch 12/12/24 12/12/24 12/12/24 06:35 07:05 11:19 WBC 7.6 RBC 3.23 L Hgb 9.4 L Hct 28.1 L MCV 87.0 MCH 29.1 MCHC 33.5 RDW 15.9 Plt Count 268 MPV 8.9 L Immature Gran % (Auto) Neut % (Auto) Lymph % (Auto) [place] % (Auto) Eos % (Auto) Baso % (Auto) Lymph # (Auto) [place] # (Auto) Eos # (Auto) Baso # (Auto) Abs Immat Gran (auto) Absolute Neuts (auto) Absolute Nucleated RBC 0.000 Nucleated RBC % (auto) 0.0 Smear Path Review Hold Purple Top PT INR Sodium Potassium Chloride Carbon Dioxide Anion Gap BUN Creatinine Estim Creat Clear Calc Estimated GFR POC Glucose 106 166 H Random Glucose Fasting Glucose Calcium Total Bilirubin Direct Bilirubin AST ALT Alkaline Phosphatase Lactate Dehydrogenase Troponin I High Sens B-Natriuretic Peptide Total Protein Albumin Procalcitonin Peritoneal WBC Peritoneal RBC Periton Neutrophils Periton Lymphocytes Peritoneal Monocytes Peritoneal Eosinophils Peritoneal Basophils Peritoneal Other Cells Pleural WBC Pleural RBC Pleural Neutrophils Pleural Lymphocytes Pleural Monocytes Pleural Total Protein Pleural LDH Blood Type Antibody Screen Crossmatch 12/12/24 12/12/24 12/12/24 13:15 16:37 20:24 WBC RBC Hgb 9.0 L Hct 26.4 L MCV MCH MCHC RDW Plt Count MPV Immature Gran % (Auto) Neut % (Auto) Lymph % (Auto) [place] % (Auto) Eos % (Auto) Baso % (Auto) Lymph # (Auto) [place] # (Auto) Eos # (Auto) Baso # (Auto) Abs Immat Gran (auto) Absolute Neuts (auto) Absolute Nucleated RBC Nucleated RBC % (auto) Smear Path Review Hold Purple Top PT INR Sodium Potassium Chloride Carbon Dioxide Anion Gap BUN Creatinine Estim Creat Clear Calc Estimated GFR POC Glucose 89 91 Random Glucose Fasting Glucose Calcium Total Bilirubin Direct Bilirubin AST ALT Alkaline Phosphatase Lactate Dehydrogenase Troponin I High Sens B-Natriuretic Peptide Total Protein Albumin Procalcitonin Peritoneal WBC Peritoneal RBC Periton Neutrophils Periton Lymphocytes Peritoneal Monocytes Peritoneal Eosinophils Peritoneal Basophils Peritoneal Other Cells Pleural WBC Pleural RBC Pleural Neutrophils Pleural Lymphocytes Pleural Monocytes Pleural Total Protein Pleural LDH Blood Type Antibody Screen Crossmatch 12/13/24 12/13/24 12/13/24 06:58 08:04 11:06 WBC 9.8 RBC 3.29 L Hgb 9.6 L Hct 28.7 L MCV 87.2 MCH 29.2 MCHC 33.4 RDW 16.2 H Plt Count 276 MPV 9.0 L Immature Gran % (Auto) Neut % (Auto) Lymph % (Auto) [place] % (Auto) Eos % (Auto) Baso % (Auto) Lymph # (Auto) [place] # (Auto) Eos # (Auto) Baso # (Auto) Abs Immat Gran (auto) Absolute Neuts (auto) Absolute Nucleated RBC 0.000 Nucleated RBC % (auto) 0.0 Smear Path Review Hold Purple Top PT INR Sodium 138 Potassium 3.2 L Chloride 107 Carbon Dioxide 25 Anion Gap 9 L BUN 32 H Creatinine 1.39 Estim Creat Clear Calc 44.9 Estimated GFR 50 POC Glucose 105 90 Random Glucose 92 Fasting Glucose Calcium 7.9 L Total Bilirubin Direct Bilirubin AST ALT Alkaline Phosphatase Lactate Dehydrogenase Troponin I High Sens B-Natriuretic Peptide Total Protein Albumin Procalcitonin Peritoneal WBC Peritoneal RBC Periton Neutrophils Periton Lymphocytes Peritoneal Monocytes Peritoneal Eosinophils Peritoneal Basophils Peritoneal Other Cells Pleural WBC Pleural RBC Pleural Neutrophils Pleural Lymphocytes Pleural Monocytes Pleural Total Protein Pleural LDH Blood Type Antibody Screen Crossmatch 12/13/24 12/13/24 12/14/24 15:37 21:16 07:09 WBC RBC Hgb Hct MCV MCH MCHC RDW Plt Count MPV Immature Gran % (Auto) Neut % (Auto) Lymph % (Auto) [place] % (Auto) Eos % (Auto) Baso % (Auto) Lymph # (Auto) [place] # (Auto) Eos # (Auto) Baso # (Auto) Abs Immat Gran (auto) Absolute Neuts (auto) Absolute Nucleated RBC Nucleated RBC % (auto) Smear Path Review Hold Purple Top PT INR Sodium Potassium Chloride Carbon Dioxide Anion Gap BUN Creatinine Estim Creat Clear Calc Estimated GFR POC Glucose 99 92 93 Random Glucose Fasting Glucose Calcium Total Bilirubin Direct Bilirubin AST ALT Alkaline Phosphatase Lactate Dehydrogenase Troponin I High Sens B-Natriuretic Peptide Total Protein Albumin Procalcitonin Peritoneal WBC Peritoneal RBC Periton Neutrophils Periton Lymphocytes Peritoneal Monocytes Peritoneal Eosinophils Peritoneal Basophils Peritoneal Other Cells Pleural WBC Pleural RBC Pleural Neutrophils Pleural Lymphocytes Pleural Monocytes Pleural Total Protein Pleural LDH Blood Type Antibody Screen Crossmatch 12/14/24 12/14/24 12/14/24 08:15 08:22 11:21 WBC RBC Hgb Hct MCV MCH MCHC RDW Plt Count MPV Immature Gran % (Auto) Neut % (Auto) Lymph % (Auto) Brantley % (Auto) Eos % (Auto) Baso % (Auto) Lymph # (Auto) Brantley # (Auto) Eos # (Auto) Baso # (Auto) Abs Immat Gran (auto) Absolute Neuts (auto) Absolute Nucleated RBC Nucleated RBC % (auto) Smear Path Review Hold Purple Top SEE NOTE PT INR Sodium 139 Potassium 3.2 L Chloride 106 Carbon Dioxide 25 Anion Gap 11 L BUN 27 H Creatinine 1.35 Estim Creat Clear Calc 50.0 Estimated GFR 52 POC Glucose 102 Random Glucose 91 Fasting Glucose Calcium 8.0 L Total Bilirubin Direct Bilirubin AST ALT Alkaline Phosphatase Lactate Dehydrogenase Troponin I High Sens B-Natriuretic Peptide Total Protein Albumin Procalcitonin Peritoneal WBC Peritoneal RBC Periton Neutrophils Periton Lymphocytes Peritoneal Monocytes Peritoneal Eosinophils Peritoneal Basophils Peritoneal Other Cells Pleural WBC Pleural RBC Pleural Neutrophils Pleural Lymphocytes Pleural Monocytes Pleural Total Protein Pleural LDH Blood Type Antibody Screen Crossmatch 12/14/24 12/14/24 12/14/24 15:13 15:50 21:03 WBC RBC Hgb 10.5 L Hct 30.7 L MCV MCH MCHC RDW Plt Count MPV Immature Gran % (Auto) Neut % (Auto) Lymph % (Auto) Brantley % (Auto) Eos % (Auto) Baso % (Auto) Lymph # (Auto) Brantley # (Auto) Eos # (Auto) Baso # (Auto) Abs Immat Gran (auto) Absolute Neuts (auto) Absolute Nucleated RBC Nucleated RBC % (auto) Smear Path Review Hold Purple Top PT INR Sodium Potassium Chloride Carbon Dioxide Anion Gap BUN Creatinine Estim Creat Clear Calc Estimated GFR POC Glucose 99 93 Random Glucose Fasting Glucose Calcium Total Bilirubin Direct Bilirubin AST ALT Alkaline Phosphatase Lactate Dehydrogenase Troponin I High Sens B-Natriuretic Peptide Total Protein Albumin Procalcitonin Peritoneal WBC Peritoneal RBC Periton Neutrophils Periton Lymphocytes Peritoneal Monocytes Peritoneal Eosinophils Peritoneal Basophils Peritoneal Other Cells Pleural WBC Pleural RBC Pleural Neutrophils Pleural Lymphocytes Pleural Monocytes Pleural Total Protein Pleural LDH Blood Type Antibody Screen Crossmatch 12/15/24 12/15/24 05:58 06:04 WBC 12.8 H RBC 3.41 L Hgb 10.0 L Hct 30.0 L MCV 88.0 MCH 29.3 MCHC 33.3 RDW 16.8 H Plt Count 308 MPV 9.0 L Immature Gran % (Auto) Neut % (Auto) Lymph % (Auto) Brantley % (Auto) Eos % (Auto) Baso % (Auto) Lymph # (Auto) Brantley # (Auto) Eos # (Auto) Baso # (Auto) Abs Immat Gran (auto) Absolute Neuts (auto) Absolute Nucleated RBC 0.000 Nucleated RBC % (auto) 0.0 Smear Path Review Hold Purple Top PT INR Sodium 138 Potassium 4.4 D Chloride 106 Carbon Dioxide 26 Anion Gap 10 L BUN 28 H Creatinine 1.69 H Estim Creat Clear Calc 40.0 Estimated GFR 40 POC Glucose 78 Random Glucose 86 Fasting Glucose Calcium 8.1 L Total Bilirubin Direct Bilirubin AST ALT Alkaline Phosphatase Lactate Dehydrogenase Troponin I High Sens B-Natriuretic Peptide Total Protein Albumin Procalcitonin Peritoneal WBC Peritoneal RBC Periton Neutrophils Periton Lymphocytes Peritoneal Monocytes Peritoneal Eosinophils Peritoneal Basophils Peritoneal Other Cells Pleural WBC Pleural RBC Pleural Neutrophils Pleural Lymphocytes Pleural Monocytes Pleural Total Protein Pleural LDH Blood Type Antibody Screen Crossmatch Airway Mallampati Class: II TM Dist: >3cm Neck ROM: Full Loose/Missing/Broken Teeth: No Heart: Irregularly irregular Lungs: CTAB Assessment and Plan Assessment Anesthesia Assessment: Anesthesia Plan Discussed and Chart Reviewed Final Anesthetic Review Family History of Problems with Anesthesia: No History of Problems with Anesthesia: No NPO: Yes ASA Class: III Final Preanesthetic Review: No Changes in Pt Med Stat, Meds/Allgs Chart Reviewed, Consent Obtained/Reviewed and Anes Risks/Benef Reviewed Patient Risk: Intermediate Procedure Risk: Low Assessment/Block/Sedation in SS: Assess/Block/Sedation-SS Anesthetic Plan Anesthetic Plan: TIVA Disposition: Standard PACU
--- NOTE | 2024-12-15 07:58 | W.PM.OPN ---
Operative Note Operative Note Date of Service: 12/15/24 Narrative: Procedure Description: EGD Indication: Gi bleed Anesthesia: MAC FLEXIBLE TRANSORAL UPPER GASTROINTESTINAL ENDOSCOPY UPPER ENDOSCOPY Consent: Indications for the procedure and potential complications of bleeding, perforation, reaction to medications and missed diagnosis were discussed with the patient and informed consent was obtained. Instrument: Olympus GIF H 190 J mid size upper endoscope Monitoring: Vital signs and clinical assessment, continuous EKG monitoring, Pulse oximetry, Carbon Dioxide monitoring and blood pressure monitoring were done throughout the procedure. Procedure: The patient was placed in the left lateral decubitis position and pre-procedure medications were administered and a bite block was placed. The endoscope was inserted into the mouth and advanced under direct vision to the third part of duodenum. A careful inspection was made as the upper endoscope was withdrawn including a retroflexed examination of the proximal stomach; Findings and interventions are described below. Findings: Larynx:normal Esophagus: GE junction at 40 cm, diaphragm hiatus at 43 cm, consistent with 3 cm sliding hiatal hernia, no varices seen Stomach: patchy erythema . Biopsies were obtained. Grade 2 flap valve on retroflexed examination of the cardia. Duodenum: bulbar duodenitis, small ulcer noted in distal bulb, improved as compared to before about 6-7 mm in diameter--jeanine grade III-not bleeding --prior placed biliary stent noted with good drainage Intervention: Biopsies as noted above, Impression/Findings: gastritis hiatal hernia duodenal ulcer and duodenitis, improved biliary stent PLAN: cont with PPI and carafate --can use carafate fro 1 week GERD precautions can restart eliquis, low dose in 3 days check stool h pylori antigen test --maybe false neg since on PPI ok to go home today
--- NOTE | 2024-12-15 08:25 | P.PNNP_ITS ---
Subjective Subjective Date of Service: 12/15/24 Interval history: Patient is a 74 y/o male with a medical history of CKD, follows Dr Guerin outpatient; admitted 12/04 for generalized weakness. Nephrology consulted for proteinuria. patient is awake and alert at bedside. denies shortness of breath, states breathing is comfortable on room air denies chest pain denies abdominal pain states he is urinating comfortably denies LE swelling RUQ US shows unremarkable right kidney without hydronephrosis. creatinine remains around baseline, 12/15 is . blood pressure 138/66 this a.m. on 20mg lisinopril and 20mg lasix PO daily patient had egd this a.m. without evidence of bleed. Patient denies other new symptoms/concerns. Physical Exam 2 Vital Signs: Vital Signs: Last Vital Signs Temp 98.3 F 12/15/24 08:20 Pulse 67 12/15/24 08:20 Resp 16 12/15/24 08:20 BP 138/66 12/15/24 08:20 Pulse Ox 97 12/15/24 08:20 O2 Del Method Room Air 12/15/24 08:20 O2 Flow Rate 3 12/15/24 08:05 BMI result Body Mass Index 27.1 Const: General: no acute distress, alert and awake Resp: Effort & Inspection: normal respiratory effort and able to speak in complete sentences Auscultation: clear to auscultation bilaterally Cardio: Rate: regular rate Rhythm: regular rhythm Heart sounds: S1 normal heart sound present and S2 normal heart sound present GI: Palpation (GI): Soft to palpation and nontender : General: Yes no CVA tenderness Back/Spine/Pelvis: Back: no CVA tenderness Skin: Rashes: no rashes Extrem: General: No edema Objective Data Labs 12/15/24 06:04 12/15/24 06:04 Labs: Laboratory Results - last 24 hr 12/14/24 12/14/24 12/14/24 11:21 15:13 15:50 WBC RBC Hgb 10.5 L Hct 30.7 L MCV MCH MCHC RDW Plt Count MPV Absolute Nucleated RBC Nucleated RBC % (auto) Sodium Potassium Chloride Carbon Dioxide Anion Gap BUN Creatinine Estim Creat Clear Calc Estimated GFR POC Glucose 102 99 Random Glucose Calcium 12/14/24 12/15/24 12/15/24 21:03 05:58 06:04 WBC 12.8 H RBC 3.41 L Hgb 10.0 L Hct 30.0 L MCV 88.0 MCH 29.3 MCHC 33.3 RDW 16.8 H Plt Count 308 MPV 9.0 L Absolute Nucleated RBC 0.000 Nucleated RBC % (auto) 0.0 Sodium 138 Potassium 4.4 D Chloride 106 Carbon Dioxide 26 Anion Gap 10 L BUN 28 H Creatinine 1.69 H Estim Creat Clear Calc 40.0 Estimated GFR 40 POC Glucose 93 78 Random Glucose 86 Calcium 8.1 L Microbiology Microbiology Results: Microbiology 12/09/24 12:15 Pleura Gram Stain - Final 12/09/24 12:15 Pleura Routine Culture - Final No growth after 2 days 12/09/24 12:15 Pleura Anaerobic Culture - Final NO GROWTH AFTER 5 DAYS Procedures Date of Service Date of Service: 12/15/24 Assessment & Plan Assessment and plan (1) Hypertension: Status: Acute (2) CKD (chronic kidney disease): Status: Acute Plan Patient with baseline CKD and HTN creatinine remains within baseline range blood pressures acceptable- continue current regimen Recommend avoiding nephrotoxins, including NSAIDs Monitor I&O while inpatient, daily renal function replace potassium as needed will continue to follow, will arrange for outpatient follow up with nephrology upon discharge in 1-[address] Norris. Time Spent With Patient Time: Total time managing care of this patient today ____ minutes. Progress Note: Quality Stroke Does the patient have a stroke diagnosis?: No
[2024-12-15] MEDS: lisinopriL 20 MG TABLET PO (08:57)
[2024-12-15] MEDS: calcitrioL 0.25 MCG CAPSULE PO (08:58)
[2024-12-15] MEDS: 0.9 % Sodium Chloride Flush 3 ML SYRINGE IVFLUSH ×3 (08:58→22:32)
[2024-12-15] MEDS: Furosemide 20 MG TABLET PO (08:58)
[2024-12-15] MEDS: Sucralfate 1 GM TABLET PO ×3 (08:58→21:48)
[2024-12-15] MEDS: Ferrous Sulfate 324 MG TABLET.DR PO ×2 (10:59→21:48)
[2024-12-15 12:04] LABS: Glucose, Whole Blood 94 mg/dL (60-115)
--- NOTE | 2024-12-15 13:26 | MHC.CLN ---
F/U PO INTAKE VARIABLE RANGING FROM 0-75% DIET ADVANCED TO REGULAR RECOMMEND RE-STARTING ENSURE MAX SUPPLEMENT BID TO PROMOTE WOUND HEALING SUPP WILL PROVIDE 300KCALS, 60G PROTEIN MONITOR PO INTAKE AND ENCOURAGE SUPPLEMENT
--- NOTE | 2024-12-15 13:40 | HO.PM.IMPN ---
Subjective Subjective Date of Service: 12/15/24 Interval History: seen and examined this morning follow up for pleural effusion, acute GI bleed No abdominal pain, no fever, no chills, no shortness a breath Remains forgetful, frequently asking to go home does not like out food, poor appetite Review of Systems Review of Systems: Yes all other systems are reviewed and are negative Constitutional Constitutional: Denies chills and Denies fever(s) Cardiovascular Cardiovascular: Denies chest pain, Denies palpitations and Denies dyspnea Respiratory Respiratory: Denies cough and Denies dyspnea Gastrointestinal Gastrointestinal: Denies abdominal pain, Denies nausea and Denies vomiting Endocrine Endocrine: Denies palpitations Physical Exam Vital Signs: Vital Signs: Last Vital Signs Temp 98.0 F 12/15/24 12:00 Pulse 64 12/15/24 12:00 Resp 20 12/15/24 12:00 BP 151/76 H 12/15/24 12:00 Pulse Ox 98 12/15/24 12:00 O2 Del Method Room Air 12/15/24 12:00 O2 Flow Rate 3 12/15/24 08:05 BMI result Body Mass Index 27.1 Appearing in no acute distress lung sounds are clear to auscultation heart regular rate rhythm, clear S1, S2 positive bowel sounds, abdomen is soft, nontender neuro patient is alert x3, no focal deficits Objective Data Active Medications Acetaminophen (Acetaminophen 325 Mg Tablet) 650 mg PO Q6H PRN PRN Reason: Pain, Mild 1-3,fever,headache Last Admin: 12/14/24 22:26 Dose: 650 mg Documented By: ART Benzonatate (Benzonatate 100 Mg Capsule) 100 mg PO TID PRN PRN Reason: Cough Last Admin: 12/06/24 19:45 Dose: 100 mg Documented By: HIEU Calcitriol (Calcitriol 0.25 Mcg Capsule) 0.25 mcg PO Q2D@0900 SHAUNNA Last Admin: 12/15/24 08:58 Dose: 0.25 mcg Documented By: JODY Calcium Carbonate (Calcium Carbonate 750 Mg Tab.Chew) 750 mg PO Q4H PRN PRN Reason: Heartburn Dextrose (Dextrose 50 % 25 Gm/50 Ml Syringe) 25 gm IVPUSH Q15M PRN; Protocol PRN Reason: per Hypoglycemia Standing Ord. Docusate Sodium (Docusate Sodium 100 Mg Capsule) 100 mg PO BEDTIME PRN PRN Reason: constipation Ferrous Sulfate (Ferrous Sulfate 324 Mg Tablet.) 324 mg PO BID [facility] Last Admin: 12/15/24 10:59 Dose: 324 mg Documented By: JODY Furosemide (Furosemide 20 Mg Tablet) 20 mg PO DAILY [facility]; Protocol Last Admin: 12/15/24 08:58 Dose: 20 mg Documented By: JODY Glucose (Glucose Gel 15 Gm Gel..Gram.) 15 gm PO Q15M PRN; Protocol PRN Reason: per Hypoglycemia Standing Ord. Lactated Ringer's (Lr) 1,000 mls @ 50 mls/hr IVCONT .Q20H [facility] Last Admin: 12/15/24 09:55 Dose: Not Given Documented By: JODY Non-Admin Reason: Physician Held Med Insulin Human Lispro (Insulin Lispro 100 Unit/Ml 3 Ml Vial) 0 unit SUBCUT QIDACHS [facility]; Protocol Last Admin: 12/15/24 12:48 Dose: Not Given Documented By: JODY Non-Admin Reason: No Insulin Coverage Lisinopril (Lisinopril 20 Mg Tablet) 20 mg PO DAILY [facility]; Protocol Last Admin: 12/15/24 08:57 Dose: 20 mg Documented By: JODY Magnesium Hydroxide (Milk Of Magnesia 30 Ml Oral.Susp) 30 ml PO DAILY PRN PRN Reason: Constipation Melatonin (Melatonin 3 Mg Tablet) 6 mg PO BEDTIME PRN PRN Reason: Insomnia Last Admin: 12/06/24 19:45 Dose: 6 mg Documented By: HIEU Omeprazole (Omeprazole 40 Mg Capsule.) 40 mg PO BID@0630,1630 [facility] Last Admin: 12/15/24 05:30 Dose: Not Given Documented By: ART Non-Admin Reason: NPO Ondansetron HCl (Ondansetron Hcl 4 Mg/2 Ml Vial) 4 mg IVPUSH ONCE PRN PRN Reason: Nausea and Vomiting Stop: 12/15/24 13:41 Sodium Chloride (0.9 % Sodium Chloride Flush 3 Ml Syringe) 3 ml IVFLUSH QSHIFT [facility] Last Admin: 12/15/24 08:58 Dose: 3 ml Documented By: JODY Sucralfate (Sucralfate 1 Gm Tablet) 1 gm PO QIDACHS [facility] Last Admin: 12/15/24 12:48 Dose: Not Given Documented By: JODY Non-Admin Reason: Patient Refused Labs 12/15/24 06:04 12/15/24 06:04 Labs: Laboratory Results - last 24 hr 12/14/24 12/14/24 12/15/24 15:50 21:03 05:58 MCV MCH MCHC RDW Plt Count MPV Absolute Nucleated RBC Nucleated RBC % (auto) Anion Gap Estim Creat Clear Calc Estimated GFR POC Glucose 99 93 78 Random Glucose Calcium 12/15/24 12/15/24 06:04 11:40 MCV 88.0 MCH 29.3 MCHC 33.3 RDW 16.8 H Plt Count 308 MPV 9.0 L Absolute Nucleated RBC 0.000 Nucleated RBC % (auto) 0.0 Anion Gap 10 L Estim Creat Clear Calc 40.0 Estimated GFR 40 POC Glucose 94 Random Glucose 86 Calcium 8.1 L Microbiology Microbiology Results: Microbiology 12/09/24 12:15 Gram Stain - Final Pleura Routine Culture - Final No growth after 2 days Anaerobic Culture - Final NO GROWTH AFTER 5 DAYS Assessment and Plan (1) Pleural effusion: Status: Acute (2) Hypokalemia: Status: Acute Plan This is a 74-year-old male with a past medical history of HTN, HLD, dm, CAD, CKD, CHF-35-40%, AFib on Eliquis, anemia, hyperparathyroidism, osteoarthritis, memory impairment; recent admission to the hospital for C diff infection; presented to the hospital today with a chief complaint of generalized weakness. Acute blood loss anemia had blood per rectum overnight 12/10 History of duodenal ulcer HH dropped 6.7/20.6 2 units PRBC ordered; repeat H/H improved accordingly No further bleeding documented, H/H has remained stable GI following>EGD with gastritis, hiatal hernia, duodenal ulcer and duodenitis, continue PPI and Carafate, use Carafate for 1 week, Restart Eliquis in 3 days tolerating diet Right Pleural effusion CT showing moderate large right effusion; exudative question due to previous right upper quadrant fluid collection/bile leak s/p thoracentesis 12/09> 550 mL of reddish clear pleural fluid, culture negative, cytology negative for malignancy weaned off oxygen, comfortable on room air Hypokalemia Possibly due to decreased p.o. intake. Patient states he does not like our food He has refused potassium replacement, will try IV replacement Follow BMP Pneumonia Chest CT showing patchy left upper and lower lobe airspace densities with mediastinal lymphadenopathy no fever or leukocytosis Complete a course of antibiotics Recommend outpatient follow-up imaging to assess for resolution of lymphadenopathy KELSEY on CKD3. Resolved likely secondary to IV lasix HTN discussed with Nephrology Ok to restart lisinopril. As we are starting 20 mg of Lasix, we will reduce lisinopril to 20 mg daily as discussed with the Nephrology Bilateral lower extremity edema, Acute hypoxemic respiratory failure, Chronic CHF echo 12/05 shows mildly decreased left ventricular systolic function with EF 52% in some hypokinesis of the inferolateral wall and basal inferior segment, no valvular pathology Daily weights and I's and o's Cardiology following>Cardiology does not feel failure rather hypoalbuminemic state. BNP [id number] Weaned onto room air lasix stopped due to KELSEY and patient euvolemic Low-dose oral Lasix started as per Cardiology recommendation Diabetes 2 ss, ada diet Recent C diff infection completed vancomycin Persistent AFib acceptable rate control adjust as indicated Eliquis on hold for above anemia/bleeding Persistent abdominal pain resolved CT abdomen/pelvis showing similar appearing right posterior subcapsular hepatic fluid collection with intrahepatic extension. No fever, no elevated WBC count. Denies abdominal pain today discussed with surgery - no further management required inpatient, recommend outpatient follow-up in the office (with Manjula) Acute transaminitis CT abdomen similar appearing right posterior subcapsular hepatic fluid collection with no free air or bowel LFTs normalized, ALK phos trending down Unstageable pressure injury to sacrum Seen by wound care nurse Continue local wound care dvt ppx - Eliquis on hold for anemia; mechanical devices, pt has been resistant to get out of bed/ambulate Full code Requires ongoing inpatient stay for endoscopy, monitoring of CBC Quality Stroke Does the patient have a stroke diagnosis?: No VTE Prior VTE?: No VTE Risk Level:: Medical - moderate - high VTE Device Contraindication: Treatment Not Indicated VTE Drug Contraindication: N/A - Med Ordered
--- NOTE | 2024-12-15 14:53 | MHC.CM.PN ---
Per rounds, pt is not ready to DC, he is scheduled for endoscopy. DCP: STR, will have to re: auth when he is ready to DC.
[2024-12-15] MEDS: Omeprazole 40 MG CAPSULE.DR PO (16:27)
[2024-12-15 16:39] LABS: Glucose, Whole Blood 91 mg/dL (60-115)
[2024-12-15 21:48] LABS: Glucose, Whole Blood 90 mg/dL (60-115)
[2024-12-15] MEDS: Lactated Ringers 1,000 ML 50 ML IVCONT (22:35)
--- NOTE | 2024-12-16 | ECG_ITS ---
Test Reason : cp Blood Pressure : */* mmHG Vent. Rate : 88 BPM Atrial Rate : * BPM P-R Int : * ms QRS Dur : 88 ms QT Int : 380 ms P-R-T Axes : * -3 134 degrees QTcB Int : 459 ms Atrial fibrillation with premature ventricular or aberrantly conducted complexes ST & T wave abnormality, consider lateral ischemia Abnormal ECG When compared with ECG of 04-Dec-2024 21:16, T wave inversion now evident in Lateral leads Referred By: Amelia Mcgraw Electronically Signed By:
[2024-12-16 04:00] VITALS: BP 180/86; PULSE 79; RESP 16; TEMP 36.5; O2SAT 98
[2024-12-16 05:13] VITALS: BMI 26.9
[2024-12-16] MEDS: Omeprazole 40 MG CAPSULE.DR PO ×2 (05:39→15:51)
[2024-12-16 07:24] VITALS: BP 158/77; PULSE 62; RESP 18; TEMP 36.8; O2SAT 97
[2024-12-16 07:32] LABS: Glucose, Whole Blood 85 mg/dL (60-115)
--- NOTE | 2024-12-16 08:15 | HO.POSTANES ---
Post Anesthesia Evaluation Post Anesthesia Evaluation Date of Service: 12/16/24 Vital Signs: Vital Signs Temp Pulse Resp BP Pulse Ox O2 Del Method 12/16/24 07:24 98.3 F 62 18 158/77 H 97 Room Air 12/16/24 04:00 97.7 F 79 16 180/86 H 98 Room Air Anesthesia: TIVA Mental Status: Awake Pain Control: Satisfactory Nausea/Vomiting: None Hydration: Adequate Anesthesia-Related Issues: No Anes. Related Issues
[2024-12-16 09:05] VITALS: BP 167/69
[2024-12-16] MEDS: Sucralfate 1 GM TABLET PO ×2 (09:05→12:07)
[2024-12-16] MEDS: lisinopriL 20 MG TABLET PO (09:05)
[2024-12-16] MEDS: Furosemide 20 MG TABLET PO (09:05)
[2024-12-16] MEDS: Ferrous Sulfate 324 MG TABLET.DR PO (09:06)
--- NOTE | 2024-12-16 10:44 | PM.DS ---
DS: Providers Provider Date of Service: 12/16/24 Date of admission: 12/04/24 22:34 Date of discharge: 12/16/24 Primary care physician: Blanca Anderson MD Consults: 12/04/24 22:34 Consult to Cardiology Routine Consulting Provider: [facility] Reason for consultation: chf 12/05/24 02:51 Consult to Wound Care Routine Reason for consultation: Left & Right Butt cheek skin tears 12/07/24 16:22 Consult to Nephrology Routine Consulting Provider: [facility] Reason for consultation: proteinurea 12/10/24 04:13 Consult to Gastroenterology Routine Consulting Provider: Cornelio Willingham Reason for consultation: ?GI bleed DS: Diagnosis Discharge Diagnosis (1) Pleural effusion: Status: Acute (2) Hypokalemia: Status: Acute DS: Summary Hospital Course Hospital Course: History and physical as per admitting provider. 74-year-old male with a past medical history of HTN, HLD, dm, CAD, CKD, CHF-35-40%, AFib on Eliquis, anemia, hyperparathyroidism, osteoarthritis, memory impairment; recent admission to the hospital for C diff infection; presented to the hospital today with a chief complaint of generalized weakness. Reportedly patient was recently discharged from the hospital after being treated for C diff. Initially. Lately has become difficulty ambulating because of bilateral leg swelling. Denies any numbness tingling or focal weakness. Denies any falls or injury. Denies any chest pain or palpitations. Reports shortness of breath. Denies any cough or sputum production. Patient denies any fevers. Reports his diarrhea is improving. Review of all other systems is negative except mentioned above. ER course: Per ER team, patient noted bilateral leg swelling; chest x-ray showed bilateral fluffy opacities concerning for acute CHF. Patient not on Lasix lately. Given dose of IV Lasix. Creatinine at his baseline. Acute blood loss anemia had blood per rectum overnight for 30 with history of duodenal ulcer. HH dropped 6.7/20.6 2 units PRBC ordered; repeat H/H improved accordingly. No further bleeding documented, H/H has remained stable. Seen by GI, status post EGD with findings of gastritis, hiatal hernia, duodenal ulcer and duodenitis, continue PPI and Carafate, use Carafate for 1 week, Restart Eliquis tomorrow. tolerating diet Right Pleural effusion. CT showed moderate large right effusion. s/p thoracentesis 12/09> 550 mL of reddish clear pleural fluid, culture negative, cytology negative for malignancy. weaned off oxygen, has been comfortable on room air Pneumonia. Chest CT showed patchy left upper and lower lobe airspace densities with mediastinal lymphadenopathy, no fever or leukocytosis, Completed a course of antibiotics. Recommend outpatient follow-up imaging to assess for resolution of lymphadenopathy KELSEY on CKD3. Resolved. likely secondary to IV lasix HTN. discussed with Nephrology, Ok to restart lisinopril. lisinopril to 20 mg daily as discussed with the Nephrology Bilateral lower extremity edema, Acute hypoxemic respiratory failure, Chronic CHF, echo 12/05 shows mildly decreased left ventricular systolic function with EF 52% in some hypokinesis of the inferolateral wall and basal inferior segment, no valvular pathology, Cardiology following>Cardiology does not feel failure rather hypoalbuminemic state. BNP [id number], Weaned onto room air , lasix stopped due to KELSEY and patient euvolemic Low-dose oral Lasix started as per Cardiology recommendation Diabetes 2. sliding scale while inpatient, has not required any coverage. No need for medication at this time. Check A1C in 1 month Recent C diff infection. completed vancomycin Hypokalemia. Possibly due to decreased p.o. intake. Resolved with replacemen Persistent AFib, acceptable rate control, Eliquis on hold for above anemia/bleeding. Restart tomorrow Persistent abdominal pain, CT abdomen/pelvis showing similar appearing right posterior subcapsular hepatic fluid collection with intrahepatic extension. No fever, no elevated WBC count. discussed with surgery - no further management required inpatient, recommend outpatient follow-up in the office (with Manjula) Acute transaminitis, CT abdomen similar appearing right posterior subcapsular hepatic fluid collection with no free air or bowel, LFTs normalized, ALK phos trended down Unstageable pressure injury to sacrum, Seen by wound care nurse, Continue local wound care Time Attestation Discharge Coordination Time (in mins): 45 Quality: Safe Use of Opioids Does Pt have an Active Cancer Diagnosis on the Problem List?: No Quality: Stroke Does the patient have a stroke diagnosis?: No Physical Exam Vital Signs: Vital Signs: Last Vital Signs Temp 98.3 F 12/16/24 07:24 Pulse 62 12/16/24 07:24 Resp 18 12/16/24 07:24 BP 167/69 H 12/16/24 09:05 Pulse Ox 97 12/16/24 07:24 O2 Del Method Room Air 12/16/24 07:24 O2 Flow Rate 3 12/15/24 08:05 BMI result Body Mass Index 26.9 Appearing in no acute distress head is normocephalic atraumatic eyes pupils are PERRLA sclera is anicteric mouth throat mucous membranes are intact and moist neck is supple no lymphadenopathy, no JVD noted lung sounds are clear to auscultation heart regular rate rhythm, clear S1, S2 positive bowel sounds, abdomen is soft, nontender neuro patient is alert x3, no focal deficits DS: Data Data Completed and Pending Completed studies during hospitalization [Text1]: Pending at discharge 12/09/24 08:09 Cytology [PTH] Stat Procedures Dilation of Cystic Duct with Intraluminal Device, Via Natural or Artificial Opening Endoscopic (11/12/24) Drainage of Peritoneal Cavity with Drainage Device, Percutaneous Approach (11/12/24) Drainage of Peritoneal Cavity, Percutaneous Approach (11/12/24) Excision of Duodenum, Via Natural or Artificial Opening Endoscopic, Diagnostic (12/19/22) Excision of Esophagogastric Junction, Via Natural or Artificial Opening Endoscopic, Diagnostic (12/19/22) Excision of Stomach, Pylorus, Via Natural or Artificial Opening Endoscopic, Diagnostic (12/19/22) Inspection of Upper Intestinal Tract, Via Natural or Artificial Opening Endoscopic (11/12/24) Resection of Gallbladder, Percutaneous Endoscopic Approach (10/20/24) Transfusion of Nonautologous Red Blood Cells into Peripheral Vein, Percutaneous Approach (12/19/22) Labs on day of discharge: Laboratory Results - last 24 hr 12/15/24 12/15/24 12/15/24 11:40 16:27 21:44 POC Glucose 94 91 90 12/16/24 07:23 POC Glucose 85 Discharge Plan Discharge Anticipated Discharge Date/Time: 12/16/24 09:42 Patient Disposition: Home Health Service Discharge Diagnosis: Acute blood loss anemia Right pleural effusion Hypokalemia Pneumonia KELSEY on CKD stage 3 [facility] [Other] - 1 Week Duran Fernandez MD [Physician] - 1 Week Blanca Crowley MD [Primary Care Provider] - 1 Week Discharge Medications: New sucralfate 1 gram Tablet 1 g PO TID Qty: 90 0RF omeprazole 40 mg Capsule,Delayed Release(Dr/Ec) 40 mg PO BID@0630,1630 Qty: 60 0RF furosemide 20 mg Tablet 20 mg PO DAILY Qty: 30 0RF Protocol: Hold for SBP< HOLD for SBP < : 90 Continued (DME) blood sugar diagnostic Strip See Rx Instructions .ROUTE BID Qty: 50 11RF Rx Instructions: Use 1 test strip once a day atorvastatin 40 mg tablet 40 mg PO DAILY lisinopril 40 mg tablet 40 mg PO DAILY (DME) blood-glucose meter Misc See Rx Instructions PO BID Qty: 1 Rx Instructions: As directed (DME) lancets Misc See Rx Instructions .ROUTE BID Qty: 100 Rx Instructions: As directed ferrous sulfate 325 mg (65 mg iron) tablet 325 mg PO BID Qty: 60 4RF calcitriol 0.25 mcg capsule 0.25 mcg PO Q2D Qty: 14 6RF Held Eliquis 2.5 mg tablet 2.5 mg PO BID Hold Instructions: Resume on 12/17/24. Discontinued vancomycin 125 mg Capsule 125 mg PO Q6H Qty: 33 0RF Discharge Orders: Discharge Order (Routine); Ordered 12/16/24 Ordered By: Amelia Mcgraw Diet: Advance to usual diet Activity on Discharge: As tolerated Stand Alone Forms: Patient Portal Discharge page Print Language: Pashto Care Plan Goals: Follow up with Gastroenterology in 2 weeks Restart Cuong tomorrow Health Concerns: Acute blood loss anemia Right pleural effusion Hypokalemia Pneumonia KELSEY on CKD stage 3 Plan of Treatment: Follow up with primary care provider as needed Take all medications as prescribed Assessment: See discharge summary Discharge Date/Time: 12/16/24 18:32
[2024-12-16 11:00] VITALS: BP 147/68; PULSE 83; RESP 16; TEMP 36.8; O2SAT 97
--- NOTE | 2024-12-16 11:01 | HO.PM.IMPN ---
Subjective Subjective Date of Service: 12/16/24 Interval History: seen and examined this morning follow up for pleural effusion, acute GI bleed No abdominal pain, no fever, no chills, no shortness a breath Review of Systems Review of Systems: Yes all other systems are reviewed and are negative Constitutional Constitutional: Denies chills and Denies fever(s) Cardiovascular Cardiovascular: Denies chest pain, Denies palpitations and Denies dyspnea Respiratory Respiratory: Denies cough and Denies dyspnea Gastrointestinal Gastrointestinal: Denies abdominal pain, Denies nausea and Denies vomiting Endocrine Endocrine: Denies palpitations Physical Exam Vital Signs: Vital Signs: Last Vital Signs Temp 98.2 F 12/16/24 11:00 Pulse 83 12/16/24 11:00 Resp 16 12/16/24 11:00 BP 147/68 H 12/16/24 11:00 Pulse Ox 97 12/16/24 11:00 O2 Del Method Room Air 12/16/24 11:00 O2 Flow Rate 3 12/15/24 08:05 BMI result Body Mass Index 26.9 Appearing in no acute distress lung sounds are clear to auscultation heart regular rate rhythm, clear S1, S2 positive bowel sounds, abdomen is soft, nontender neuro patient is alert x3, no focal deficits Objective Data Active Medications Acetaminophen (Acetaminophen 325 Mg Tablet) 650 mg PO Q6H PRN PRN Reason: Pain, Mild 1-3,fever,headache Last Admin: 12/14/24 22:26 Dose: 650 mg Documented By: ART Benzonatate (Benzonatate 100 Mg Capsule) 100 mg PO TID PRN PRN Reason: Cough Last Admin: 12/06/24 19:45 Dose: 100 mg Documented By: HIEU Calcitriol (Calcitriol 0.25 Mcg Capsule) 0.25 mcg PO Q2D@0900 ON LICENSE OF [facility] Last Admin: 12/15/24 08:58 Dose: 0.25 mcg Documented By: JODY Calcium Carbonate (Calcium Carbonate 750 Mg Tab.Chew) 750 mg PO Q4H PRN PRN Reason: Heartburn Dextrose (Dextrose 50 % 25 Gm/50 Ml Syringe) 25 gm IVPUSH Q15M PRN; Protocol PRN Reason: per Hypoglycemia Standing Ord. Docusate Sodium (Docusate Sodium 100 Mg Capsule) 100 mg PO BEDTIME PRN PRN Reason: constipation Ferrous Sulfate (Ferrous Sulfate 324 Mg Tablet.) 324 mg PO BID ON LICENSE OF [facility] Last Admin: 12/16/24 09:06 Dose: 324 mg Documented By: JOVANY Furosemide (Furosemide 20 Mg Tablet) 20 mg PO DAILY ON LICENSE OF [facility]; Protocol Last Admin: 12/16/24 09:05 Dose: 20 mg Documented By: JOVANY Glucose (Glucose Gel 15 Gm Gel..Gram.) 15 gm PO Q15M PRN; Protocol PRN Reason: per Hypoglycemia Standing Ord. Insulin Human Lispro (Insulin Lispro 100 Unit/Ml 3 Ml Vial) 0 unit SUBCUT QIDACHS ON LICENSE OF [facility]; Protocol Last Admin: 12/16/24 08:53 Dose: Not Given Documented By: JOVANY Non-Admin Reason: No Insulin Coverage Lisinopril (Lisinopril 20 Mg Tablet) 20 mg PO DAILY ON LICENSE OF [facility]; Protocol Last Admin: 12/16/24 09:05 Dose: 20 mg Documented By: JOVANY Magnesium Hydroxide (Milk Of Magnesia 30 Ml Oral.Susp) 30 ml PO DAILY PRN PRN Reason: Constipation Melatonin (Melatonin 3 Mg Tablet) 6 mg PO BEDTIME PRN PRN Reason: Insomnia Last Admin: 12/06/24 19:45 Dose: 6 mg Documented By: HIEU Omeprazole (Omeprazole 40 Mg Capsule.) 40 mg PO BID@0630,1630 ON LICENSE OF [facility] Last Admin: 12/16/24 05:39 Dose: 40 mg Documented By: CLAUDIA Sodium Chloride (0.9 % Sodium Chloride Flush 3 Ml Syringe) [facility] Last Admin: 12/16/24 09:06 Dose: Not Given Documented By: JOVANY Non-Admin Reason: IV Running Sucralfate (Sucralfate 1 Gm Tablet) 1 gm PO QIDACHS ON LICENSE OF [facility] Last Admin: 12/16/24 09:05 Dose: 1 gm Documented By: JOVANY Labs 12/15/24 06:04 12/15/24 06:04 Labs: Laboratory Results - last 24 hr 12/15/24 12/15/24 12/15/24 11:40 16:27 21:44 POC Glucose 94 91 90 12/16/24 07:23 POC Glucose 85 Assessment and Plan (1) Pleural effusion: Status: Acute (2) Hypokalemia: Status: Acute Plan 74-year-old male with a past medical history of HTN, HLD, dm, CAD, CKD, CHF-35-40%, AFib on Eliquis, anemia, hyperparathyroidism, osteoarthritis, memory impairment; recent admission to the hospital for C diff infection; presented to the hospital today with a chief complaint of generalized weakness. Acute blood loss anemia. Resolved had blood per rectum overnight 12/10 History of duodenal ulcer HH dropped 6.7/20.6 2 units PRBC ordered; repeat H/H improved accordingly No further bleeding documented, H/H has remained stable GI following>EGD with gastritis, hiatal hernia, duodenal ulcer and duodenitis, continue PPI and Carafate, use Carafate for 1 week, Restart Eliquis in 3 days tolerating diet Right Pleural effusion CT showing moderate large right effusion; exudative question due to previous right upper quadrant fluid collection/bile leak s/p thoracentesis 12/09> 550 mL of reddish clear pleural fluid, culture negative, cytology negative for malignancy weaned off oxygen, comfortable on room air Hypokalemia Possibly due to decreased p.o. intake. Patient states he does not like our food He has refused potassium replacement, will try IV replacement Follow BMP Pneumonia Chest CT showing patchy left upper and lower lobe airspace densities with mediastinal lymphadenopathy no fever or leukocytosis Complete a course of antibiotics Recommend outpatient follow-up imaging to assess for resolution of lymphadenopathy KELSEY on CKD3. Resolved likely secondary to IV lasix HTN discussed with Nephrology Ok to restart lisinopril. As we are starting 20 mg of Lasix, we will reduce lisinopril to 20 mg daily as discussed with the Nephrology Bilateral lower extremity edema, Acute hypoxemic respiratory failure, Chronic CHF echo 12/05 shows mildly decreased left ventricular systolic function with EF 52% in some hypokinesis of the inferolateral wall and basal inferior segment, no valvular pathology Daily weights and I's and o's Cardiology following>Cardiology does not feel failure rather hypoalbuminemic state. BNP 430>973>[id number] Weaned onto room air lasix stopped due to KELSEY and patient euvolemic Low-dose oral Lasix started as per Cardiology recommendation Diabetes 2 ss, ada diet Recent C diff infection completed vancomycin Persistent AFib acceptable rate control adjust as indicated Eliquis on hold for above anemia/bleeding Persistent abdominal pain resolved CT abdomen/pelvis showing similar appearing right posterior subcapsular hepatic fluid collection with intrahepatic extension. No fever, no elevated WBC count. Denies abdominal pain today discussed with surgery - no further management required inpatient, recommend outpatient follow-up in the office (with Manjula) Acute transaminitis CT abdomen similar appearing right posterior subcapsular hepatic fluid collection with no free air or bowel LFTs normalized, ALK phos trending down Unstageable pressure injury to sacrum Seen by wound care nurse Continue local wound care dvt ppx - Eliquis on hold for anemia; mechanical devices, pt has been resistant to get out of bed/ambulate Full code Requires ongoing inpatient stay for endoscopy, monitoring of CBC Quality Stroke Does the patient have a stroke diagnosis?: No VTE Prior VTE?: No VTE Risk Level:: Medical - moderate - high VTE Device Contraindication: Treatment Not Indicated VTE Drug Contraindication: N/A - Med Ordered
[2024-12-16 11:41] LABS: Glucose, Whole Blood 83 mg/dL (60-115)
[2024-12-16] MEDS: Acetaminophen 325 MG TABLET 650 MG PO (12:06)
--- NOTE | 2024-12-16 14:32 | MHC.CM.PN ---
Second IMM given 12/16. Pt is medically [facility] pt will transport there via [facility]. Pt updated on discharge plan and is in agreement.
[2024-12-16 15:10] VITALS: BP 142/52; PULSE 65; RESP 20; TEMP 36.8; O2SAT 99
[2024-12-16] MEDS: Loperamide HCl 2 MG CAPSULE 4 MG PO (15:51)
[2024-12-16 16:34] LABS: Glucose, Whole Blood 93 mg/dL (60-115)
== END 2024-12-16 18:32 | disposition home health service (06) | DRG 193 ==
LOC: HO.ED 21:09 → HO.EDOVER 23:03 → HO.IMC 12-05 00:32
PROVIDERS: Hospitalist; Internal Medicine Gastroenterology; Nurse Practitioner Family; Physician Assistant; Physician Assistant Medical; Radiology Diagnostic Radiology; Admitting Provider Hospitalist; Emergency Provider Internal Medicine; PCP Student in an Organized Health Care Education/Training Program; Visit Provider Nurse Practitioner Acute Care
PROC: 0W993ZZ Drainage of Right Pleural Cavity, Percutaneous Approach (ICD-10-PCS; principal; 2024-12-09 11:30)
PROC: 0DJ08ZZ Inspection of Upper Intestinal Tract, Via Natural or Artificial Opening Endoscopic (ICD-10-PCS; CPT 43235; principal; 2024-12-15 07:30)
DX: J18.9 Pneumonia, unspecified organism (principal); J96.01 Acute respiratory failure with hypoxia; K29.71 Gastritis, unspecified, with bleeding; K26.4 Chronic or unspecified duodenal ulcer with hemorrhage; I13.0 Hypertensive heart and chronic kidney disease with heart failure and stage 1 through stage 4 chronic kidney disease, or unspecified chronic kidney disease; I48.19 Other persistent atrial fibrillation; I50.22 Chronic systolic (congestive) heart failure; J91.8 Pleural effusion in other conditions classified elsewhere; D62 Acute posthemorrhagic anemia; N17.9 Acute kidney failure, unspecified; E87.6 Hypokalemia; R74.01 Elevation of levels of liver transaminase levels; T50.1X5A Adverse effect of loop [high-ceiling] diuretics, initial encounter; E88.09 Other disorders of plasma-protein metabolism, not elsewhere classified; K44.9 Diaphragmatic hernia without obstruction or gangrene; L89.150 Pressure ulcer of sacral region, unstageable; I25.10 Atherosclerotic heart disease of native coronary artery without angina pectoris; I08.1 Rheumatic disorders of both mitral and tricuspid valves; N18.31 Chronic kidney disease, stage 3a; I27.20 Pulmonary hypertension, unspecified; E11.22 Type 2 diabetes mellitus with diabetic chronic kidney disease; Z87.891 Personal history of nicotine dependence; Z79.01 Long term (current) use of anticoagulants; Z79.899 Other long term (current) drug therapy
CPT/HCPCS: 32555; 36415; 71045; 71250; 74176; 76705; 80048; 80053; 80076; 82947; 83615; 83880; 84145; 84157; 84484; 85014; 85018; 85025; 85027; 85610; 86850; 86900; 86901; 86923; 87070; 87073; 87205; 88112; 88305; 88341; 88342; 89051; 93005; 93306; 97116; 97162; 99285; J0456; J0696; J1938; J2003; J2470; J2704; J3480; J7120; P9016; P9047; Q9957

== ENCOUNTER → 2024-12-04 20:39 | Outpatient (BNV) | payer OTHER, SELFPAY | PROVIDERS: Emergency Provider Internal Medicine; PCP Student in an Organized Health Care Education/Training Program; Visit Provider Radiology Diagnostic Radiology | DX: J90 Pleural effusion, not elsewhere classified (principal) | CPT/HCPCS: 71045 ==

== ENCOUNTER 2024-12-04 22:34 | Outpatient (BNV) | payer OTHER, SELFPAY | END 2024-12-09 12:30 | PROVIDERS: Admitting Provider Hospitalist; Emergency Provider Internal Medicine; PCP Student in an Organized Health Care Education/Training Program; Visit Provider Radiology Diagnostic Radiology | DX: Z48.813 Encounter for surgical aftercare following surgery on the respiratory system (principal); J18.9 Pneumonia, unspecified organism; J91.8 Pleural effusion in other conditions classified elsewhere | CPT/HCPCS: 32555; 71045 ==

== ENCOUNTER 2024-12-04 22:34 | Outpatient (BNV) | payer OTHER, SELFPAY | END 2024-12-05 07:00 | PROVIDERS: Admitting Provider Hospitalist; Emergency Provider Internal Medicine; PCP Student in an Organized Health Care Education/Training Program; Visit Provider Internal Medicine | DX: I31.39 Other pericardial effusion (noninflammatory) (principal) | CPT/HCPCS: 93306 ==

== ENCOUNTER 2024-12-04 22:34 | Outpatient (BNV) | payer OTHER, SELFPAY | END 2024-12-06 11:21 | PROVIDERS: Admitting Provider Hospitalist; Emergency Provider Internal Medicine; PCP Student in an Organized Health Care Education/Training Program; Visit Provider Radiology Vascular & Interventional Radiology | DX: R74.01 Elevation of levels of liver transaminase levels (principal); J90 Pleural effusion, not elsewhere classified; Z48.813 Encounter for surgical aftercare following surgery on the respiratory system | CPT/HCPCS: 71045; 76705 ==

== ENCOUNTER → 2024-12-04 22:34 | Outpatient (BNV) | payer OTHER, SELFPAY | PROVIDERS: Admitting Provider Hospitalist; Emergency Provider Internal Medicine; PCP Student in an Organized Health Care Education/Training Program; Visit Provider Nurse Practitioner Family | DX: I10 Essential (primary) hypertension (principal); N18.31 Chronic kidney disease, stage 3a | CPT/HCPCS: 99222 ==

== ENCOUNTER → 2024-12-04 22:34 | Outpatient (BNV) | payer OTHER, SELFPAY | PROVIDERS: Admitting Provider Hospitalist; Emergency Provider Internal Medicine; PCP Student in an Organized Health Care Education/Training Program; Visit Provider Internal Medicine | DX: M79.89 Other specified soft tissue disorders (principal); I48.20 Chronic atrial fibrillation, unspecified | CPT/HCPCS: 99223; 99232; 99233 ==

== ENCOUNTER → 2024-12-04 22:34 | Outpatient (BNV) | payer OTHER, SELFPAY | PROVIDERS: Admitting Provider Hospitalist; Emergency Provider Internal Medicine; PCP Student in an Organized Health Care Education/Training Program; Visit Provider Internal Medicine Gastroenterology | DX: D62 Acute posthemorrhagic anemia (principal) | CPT/HCPCS: 99223 ==

== ENCOUNTER → 2024-12-04 22:34 | Outpatient (BNV) | payer OTHER, SELFPAY | PROVIDERS: Admitting Provider Hospitalist; Emergency Provider Internal Medicine; PCP Student in an Organized Health Care Education/Training Program; Visit Provider Hospitalist | DX: M79.89 Other specified soft tissue disorders (principal); N18.4 Chronic kidney disease, stage 4 (severe); D63.1 Anemia in chronic kidney disease; I48.20 Chronic atrial fibrillation, unspecified | CPT/HCPCS: 99223; 99232 ==

== ENCOUNTER 2025-01-16 11:25 | Outpatient (REF) | payer OTHER, SELFPAY ==
--- OUTSIDE RECORDS SUMMARY | 2025-01-16 12:11 | XMS_ITS | Encounter Summary ---
Author Organization [employer] Address [address] [facility] [address] [place] [address] Care Team Providers Care Loss Prevention Coordinator Name Role Phone Cynthia Marshall NP Primary Care Provider [phone] Encounter Details Date Type Department Care Team ([facility] st Contact Info) Description 09/26/2024 Orders Only [facility] [address] [place], [place] [phone] Cynthia Marshall NP [address] [place] [address] Stage 3b chronic kidney disease (CMS/HCC) Social [...] as of this encounter Plan of Treatment Upcoming Encounters Date Type Department Care Team (Late st Contact Info) Description 01/21/2025 9:45 AM EDT Office Visit [facility] [address] [place] [phone] Cynthia Marshall NP [address] [place] [address] 03/04/2025 10:15 AM EDT Office Visit [facility] [address] [place] [phone] Cynthia Marshall NP [address] [place] [address] documented as of this encounter Visit Diagnoses Diagnosis Stage 3b chronic kidney disease (CMS/HCC) documented in this encounter Additional Health Concerns Assessment Noted Time PHQ-9 Depression Total Score: 0 01/21/20 24 11:17 AM EDT documented as of this encounter Care Teams Loss Prevention Coordinator Relationship Specialty Start Date End Date Cynthia Marshall NP [address] [place] [phone] PCP - General Family Medicine 09/10/23 [facility] 01/01/25 documented as of this encounter
[2025-01-16 13:24] LABS: MANUAL DIFF FLAG NO
[2025-01-16 13:38] LABS: Basophils Percent Auto 0.2 % (0-2); Eosinophils Percent Auto 0.5 % (0-4); Hematocrit 28.8 % (42.0-52.0); Imm Gran Abs Auto 0.03 X10*3/uL (0.00-0.03); Imm Gran Pct Auto 0.5 % (0.0-0.4); Lymphocytes Absolute Auto 1.3 X10*3/uL (1.2-4.9); Lymphocytes Percent Auto 23.1 % (20-40); Mean Corpuscular HGB Conc 31.3 g/dl (31.0-36.0); Mean Corpuscular Hemoglobin 28.8 pg (27.0-33.0); Mean Platelet Volume 9.3 fL (9.4-12.4); Monocytes Absolute Auto 0.3 X10*3/uL (0.1-1.2); Monocytes Percent Auto 5.5 % (2-11); Neutrophils Absolute Auto 3.9 x10*3/uL (2.0-8.3); Neutrophils Percent Auto 70.2 % (45-73); Platelet Count 264 X10*3/uL (160-400); Red Blood Count 3.13 X10*6/uL (4.60-5.80); Red Cell Distribution Width 16.6 % (11.0-16.0); White Blood Count 5.5 X10*3/uL (4.8-10.8)
[2025-01-16 14:01] LABS: Estimated Average Glucose 97 mg/dL; Hemoglobin A1C 149.9332 umol/L
[2025-01-16 14:13] LABS: Parathyroid Hormone Intact 251.2 pg/mL (8.7-77.1)
[2025-01-16 14:48] LABS: Anion Gap 9 (12-20)
[2025-01-16 14:56] LABS: Alanine Aminotransferase 33 U/L (0-40); Albumin Level 2.9 g/dL (3.5-5.0); Alkaline Phosphatase 234 U/L (39-117); Aspartate Amino Transferase 44 U/L (5-37); Blood Urea Nitrogen 21 mg/dL (9-16); Calcium 9.1 mg/dL (8.4-10.2); Carbon Dioxide 28 mmol/L (22-29); Chloride 108 mmol/L (96-108); Cholesterol 129 mg/dL (<200); Estimated Glomerular Filt Rate 38; Glucose Random 88 mg/dL (60-115); HDL Cholesterol 38 mg/dL (>40); LDL Cholesterol Calculated 78 mg/dL (<100); Sodium 141 mmol/L (135-145); Total Protein 6.7 g/dL (6.5-8.0); Triglycerides 69 mg/dL (<150)
== END 2025-01-16 11:26 | disposition home or self-care (01) ==
LOC: HO.HHCL 11:25
PROVIDERS: General Practice; Internal Medicine Nephrology; Visit Provider Nurse Practitioner Family
DX: N25.81 Secondary hyperparathyroidism of renal origin (principal); N18.4 Chronic kidney disease, stage 4 (severe); E61.1 Iron deficiency; D63.1 Anemia in chronic kidney disease; I15.0 Renovascular hypertension; E11.69 Type 2 diabetes mellitus with other specified complication
CPT/HCPCS: 36415; 80053; 80061; 83036; 83970; 85025

== ENCOUNTER 2025-01-22 16:49 | Emergency (ER) | payer OTHER, SELFPAY ==
--- NOTE | ~2025-01-22 | XR_ITS ---
CLINICAL HISTORY: Pedal edema Chest Radiographs, 2 views Comparison: CT/SR - CT CHEST WO IV CON - 12/06/24 15:12 EDT CR - XR CHEST 1V - 12/06/24 12:28 EDT Findings: Cardiomegaly. Normal mediastinal contours. No pneumothorax. Interstitial prominence. 2.0 cm opacity lateral to aortic knob in the left upper lung zone seen on the PA view was also seen on the study from 12/19/22 without correlate seen on CT of the chest which likely indicates a vessel on end.Moderate-sized right and small left pleural effusions. Normal upper abdomen. No acute fracture. Impression: [id number] cardiogenic pulmonary edema. This document has been electronically signed by: Luna Betts MD on 01/22/2025 17:38:44
[2025-01-22 17:01] VITALS: BP 176/79; PULSE 78; RESP 16; O2SAT 93; BMI 28.3
[2025-01-22 17:04] VITALS: BP 198/89; PULSE 92; O2SAT 95
--- NOTE | 2025-01-22 17:08 | ED_ITS ---
HPI - General Adult General Chief complaint: Recheck/Abnormal Lab/Rx Stated complaint: Htn *198/85 Time Seen by Provider: 01/22/25 17:07 Source: patient, EMS, RN notes reviewed and old records reviewed Mode of arrival: EMS History of Present Illness ED Provider: Georgina Velazquez PA-C HPI narrative: 74-year-old male with a past medical history CKD, HTN, CHF, cardiomyopathy, CVA, chronic AFib on Eliquis, diabetes, HLD, presenting to the ED via EMS with reported hypertension at home systolic 200s pain generalized fatigue/weakness and bilateral LE edema. Patient states he was feeling unwell this had his daughter call EMS. Patient is poor historian. Denies headache, vision change/loss, CP/SOB, abdominal pain, nausea/vomiting Related Data Home Medications ?Medication ?Instructions ?Recorded ?Confirmed blood-glucose meter #1 ea 05/14/20 01/14/24 lancets #100 ea 05/14/20 01/14/24 atorvastatin 40 mg tablet 40 mg PO DAILY 12/19/22 12/05/24 lisinopril 40 mg tablet 40 mg PO DAILY 10/20/24 12/05/24 apixaban 2.5 mg tablet (Eliquis) 2.5 mg PO BID 12/05/24 12/05/24 Previous Rx's ?Medication ?Instructions ?Recorded blood sugar diagnostic #50 ea 01/24/21 calcitriol 0.25 mcg capsule 0.25 mcg PO Q2D #14 caps 10/17/24 ferrous sulfate 325 mg (65 mg 325 mg PO BID #60 tabs 10/17/24 iron) tablet furosemide 20 mg tablet 20 mg PO DAILY #30 tabs 12/16/24 omeprazole 40 mg capsule,delayed 40 mg PO BID@0630,1630 #60 caps 12/16/24 release sucralfate 1 gram tablet 1 g PO TID #90 tabs 12/16/24 Allergies Allergy/AdvReac Type Severity Reaction Status Date / Time No Known Allergies Allergy Verified 01/22/25 17:03 [No Known Allergies*] Review of Systems 2 Review of Systems: Yes all other systems are reviewed and are negative Constitutional: Constitutional: Reports as per [facility] Past Medical History Attestation statement: The following information was validated with the patient. Source: old records reviewed Medical History Anemia in chronic kidney disease (CKD) CKD (chronic kidney disease) Hypertension CHF (congestive heart failure) CKD (chronic kidney disease) stage 4, GFR 15-29 ml/min Obesity (BMI 30.0-34.9) Cardiomyopathy Stroke Chronic atrial fibrillation CKD (chronic kidney disease) Former smoker Depression Diabetes High cholesterol Surgical History History of aneurysm History of shoulder surgery Family History Family History Father No problems noted. Mother Diabetes Hypertension Cancer Son No problems noted. Son No problems noted. Son No problems noted. Daughter No problems noted. Daughter No problems noted. Social History Social History Household Members: None Household Members Other:: Housing: Apartment Are you a primary dog day care attendant to a significant other at home: No Do you presently have visiting nurse or other home services: No Alcohol intake: never Patient Tobacco Use Status: Former Tobacco user Smoked in Last 30 Days: No Use of substances other than those prescribed or required for medical reasons: No Substance Use Type: Marijuana Advance Directives: No Advance Directives Information Provided: No service: No Current occupational status: disabled Physical Exam ED Vital Signs: Vital Signs - 24 hr 01/22/25 17:01 01/22/25 18:00 01/22/25 18:02 Temperature 98.1 F Pulse Rate 78 Respiratory Rate 16 77 H Blood Pressure 176/79 H 172/84 H 172/84 H Pulse Oximetry 93 99 Oxygen Delivery Method Room Air Room Air 01/22/25 19:58 Temperature 98.6 F Pulse Rate 74 Respiratory Rate 18 Blood Pressure 172/84 H Pulse Oximetry 96 Oxygen Delivery Method Room Air BMI result Body Mass Index 28.3 Const General: cooperative, healthy appearing and no acute distress Orientation/consciousness: patient oriented x3 Limitations: no limitations HENMT Head: Yes normal to inspection and Yes atraumatic Ears: hearing grossly normal bilaterally General nose exam: Normal external nose present Face and sinus: Yes normal facial exam Eyes General: appearance normal, both eyes and all related structures EOM: EOMs intact bilaterally Neck Neck: Yes normal visual inspection and Yes no meningeal signs Resp Effort & Inspection: normal respiratory effort and no respiratory distress Auscultation: clear to auscultation bilaterally, no crackles and no wheezes Cardio Rate: regular rate Heart sounds: S1 normal heart sound present and S2 normal heart sound present GI Inspection: Yes normal to inspection Palpation (GI): Soft to palpation, nontender, no guarding and not rigid Skin Rashes: no rashes Wounds: no wounds Neuro General: patient oriented x3, tone normal and no meningeal signs Cranial nerves: Yes CN's II-XII intact bilaterally Gait exam (Neuro): Normal gait present Extrem Other: 4+ bilateral LE pitting edema Course Course Course Narrative: XR chest 2V Impression: [id number] cardiogenic pulmonary edema. -1800--ED care transferred to [facility] pending labs, viral testing, and re- evaluation. Dispo per results Reevaluation(s) Reevaluation #1: Marisela Cartwright NP 01/22/25 19:15 Patient requiring inpatient admission for acute CHF exacerbation he however declines stating he ?will not stay in the hospital?. Patient is electing to leave against medical advice and with informed refusal. Patient was advised reasoning for hospital admission appropriate management of acute CHF exacerbation, a full explanation of the rationale was given. The risks of leaving were explained to the patient and include, but not are not limited to, worsening of known or currently on known conditions, permanent disability, and from undiagnosed or untreated conditions. The patient has the capacity to make this decision and has the capacity to understand the clinical situation and my explanation of the risks of refusing. The patient voluntarily accepts these risks. Patient was given the opportunity to ask questions and reconsider Medications Administered Discontinued Medications Generic Name Dose Route Start Last Admin Trade Name Freq PRN Reason Stop Dose Admin Furosemide 40 mg 01/22/25 17:47 01/22/25 18:02 Furosemide 40 Mg/4 Ml Vial IVPUSH 01/22/25 17:48 40 mg STAT STA Administration Protocol Medical Decision Making Medical Decision Making [facility] Narrative: 74-year-old male with a past medical history CKD, HTN, CHF, cardiomyopathy, CVA, chronic AFib on Eliquis, diabetes, HLD, presenting to the ED via EMS with reported hypertension at home systolic 200s pain generalized fatigue/weakness and bilateral LE edema. On exam vital signs stable, satting 93% on RA, no respiratory distress, lungs CTA, 4+ bilateral LE pitting edema noted. Concern for CHF vs viral illness vs hypertension urgency/emergency. Lower suspicion for ICH, DVT as patient is anticoagulated, PE or ACS at this time Plan: EKG, labs, CXR, viral testing Please refer to course for remaining clinical decision making, interpretation of labs/imaging results, and discussions with consultants and/or family members. Differential Diagnosis Differential Diagnoses: The differential diagnosis associated with the presentation includes As above Admission/Observation Consideration of admission/observation: Escalation of care including admission/observation considered Lab Data MDM Lab Attestation statement: I reviewed the patient's lab results. 01/22/25 17:41 01/22/25 17:41 Labs: Lab Results 01/22/25 Range/Units 17:41 WBC 4.6 L (4.8-10.8) X10*3/uL RBC 2.92 L (4.60-5.80) X10*6/uL Hgb 8.5 L (14.0-18.0) g/dl Hct 26.6 L (42.0-52.0) % MCV 91.1 (80.0-98.0) fL MCH 29.1 (27.0-33.0) pg MCHC 32.0 (31.0-36.0) g/dl RDW 16.4 H (11.0-16.0) % Plt Count 219 (160-400) X10*3/uL MPV 8.9 L (9.4-12.4) fL Immature Gran % (Auto) 0.2 (0.0-0.4) % Neut % (Auto) 73.7 H (45-73) % Lymph % (Auto) 19.0 L (20-40) % Mcleod % (Auto) 6.0 (2-11) % Eos % (Auto) 0.9 (0-4) % Baso % (Auto) 0.2 (0-2) % Lymph # (Auto) 0.9 L (1.2-4.9) X10*3/uL Mcleod # (Auto) 0.3 (0.1-1.2) X10*3/uL Eos # (Auto) 0.0 (0.0-0.4) X10*3/uL Baso # (Auto) 0.0 (0.0-0.2) X10*3/uL Abs Immat Gran (auto) 0.01 (0.00-0.03) X10*3/uL Absolute Neuts (auto) 3.4 (2.0-8.3) x10*3/uL Absolute Nucleated RBC 0.000 (0.0-0.012) X10*3/uL Nucleated RBC % (auto) 0.0 (0.0-0.2) /100WBC PT 14.5 H D (10.9-12.4) SEC INR 1.3 H (0.9-1.1) Sodium 140 (135-145) mmol/L Potassium 3.5 (3.3-5.1) mmol/L Chloride 105 (96-108) mmol/L Carbon Dioxide 28 (22-29) mmol/L Anion Gap 11 L (12-20) BUN 22 H (9-16) mg/dL Creatinine 2.03 H (0.5-1.4) mg/dL Estim Creat Clear Calc 33.9 Estimated GFR 32 Random Glucose 99 (60-115) mg/dL Calcium 8.2 L D (8.4-10.2) mg/dL Magnesium 1.5 L (1.6-2.6) mg/dL Total Bilirubin 0.9 (0.0-1.0) mg/dL Direct Bilirubin 0.4 (0.0-0.5) mg/dL AST 22 (5-37) U/L ALT 15 (0-40) U/L Alkaline Phosphatase 194 H (39-117) U/L Troponin I High Sens 54.6 H D (<3.5-35.0) ng/L B-Natriuretic Peptide 1166 H (<100) pg/mL Total Protein 6.0 L (6.5-8.0) g/dL Albumin 2.8 L (3.5-5.0) g/dL Influenza Type A (PCR) NEGATIVE (Negative) Influenza Type B (PCR) NEGATIVE (Negative) RSV RNA Qual (PCR) NEGATIVE (Negative) SARS-CoV-2 RNA (RT-PCR) NEGATIVE (Negative) Independent Interpretation I performed an independent interpretation of an: EKG and Plain X-Ray Radiology Impression Discussion of test interpretation with radiology: I have reviewed the radiologist's reading. Independent Historian Clinical information obtained from an independent historian. History obtained from or confirmed by: EMS External Record Review External record reviewed: Inpatient record, Office record, Outpatient record, Prior outpatient labs, Prior outpatient radiology, Primary care record and Outside ED record Tests considered The following testing was considered but not selected: As above Prescription Management I considered prescription management with: Other Chronic Conditions Patient?s care impacted by: Diabetes and Hypertension Social Determinants Patient?s care significantly limited by Social Determinants of Health including: Other Social Determinant of Health Discharge Plan Discharge Clinical Impression: Pulmonary edema, Pedal edema, Weakness Patient Disposition: Left Against Medical Advice Additional Instructions: As discussed, it was recommended that you remain in the hospital for admission of acute CHF exacerbation. You however have declined and are electing to leave against medical advice. This may result in worsening of your heart failure, which could ultimately be life-threatening and result in if not treated appropriately. Be certain that you continue taking your Lasix, contact your primary care provider to arrange for a follow-up visit. You should return back to emergency department any new or worsening symptoms or concerns which include but are not limited to chest pain, shortness of breath, difficulty breathing, worsening swelling, nausea, vomiting, dizziness, lightheadedness Prescriptions: No Action (DME) blood sugar diagnostic Strip See Rx Instructions .ROUTE BID Qty: 50 11RF Rx Instructions: Use 1 test strip once a day atorvastatin 40 mg tablet 40 mg PO DAILY Eliquis 2.5 mg tablet 2.5 mg PO BID sucralfate 1 gram Tablet 1 g PO TID Qty: 90 0RF omeprazole 40 mg Capsule,Delayed Release(Dr/Ec) 40 mg PO BID@0630,1630 Qty: 60 0RF furosemide 20 mg Tablet 20 mg PO DAILY Qty: 30 0RF Protocol: Hold for SBP< HOLD for SBP < : 90 lisinopril 40 mg tablet 40 mg PO DAILY (DME) blood-glucose meter Misc See Rx Instructions PO BID Qty: 1 Rx Instructions: As directed (DME) lancets Misc See Rx Instructions .ROUTE BID Qty: 100 Rx Instructions: As directed ferrous sulfate 325 mg (65 mg iron) tablet 325 mg PO BID Qty: 60 4RF calcitriol 0.25 mcg capsule 0.25 mcg PO Q2D Qty: 14 6RF Referrals: Blanca Crowley MD [Primary Care Provider] - Stand Alone Forms: Against Medical Advice Interventions: ED Discharge Assessment Last Done: 01/22/25 19:58 Print Language: Hebrew
--- NOTE | 2025-01-22 17:08 | ECG_ITS ---
Test Reason : PEDAL EDEMA Blood Pressure : */* mmHG Vent. Rate : 70 BPM Atrial Rate : * BPM P-R Int : * ms QRS Dur : 94 ms QT Int : 452 ms P-R-T Axes : * 5 130 degrees QTcB Int : 488 ms Atrial fibrillation Nonspecific ST and T wave abnormality Abnormal ECG When compared with ECG of 16-Dec-2024 11:04, Nonspecific T wave abnormality, worse in Inferior leads Nonspecific T wave abnormality has replaced inverted T waves in Lateral leads Referred By: Georgina Velazquez Electronically Signed By: NICOLA DIALLO MD
[2025-01-22 17:47] LABS: MANUAL DIFF FLAG NO
[2025-01-22 17:48] LABS: Basophils Percent Auto 0.2 % (0-2); Eosinophils Percent Auto 0.9 % (0-4); Hematocrit 26.6 % (42.0-52.0); Hemoglobin 8.5 g/dl (14.0-18.0); Imm Gran Abs Auto 0.01 X10*3/uL (0.00-0.03); Imm Gran Pct Auto 0.2 % (0.0-0.4); Lymphocytes Absolute Auto 0.9 X10*3/uL (1.2-4.9); Mean Corpuscular Hemoglobin 29.1 pg (27.0-33.0); Mean Corpuscular Volume 91.1 fL (80.0-98.0); Mean Platelet Volume 8.9 fL (9.4-12.4); Monocytes Absolute Auto 0.3 X10*3/uL (0.1-1.2); Neutrophils Absolute Auto 3.4 x10*3/uL (2.0-8.3); Neutrophils Percent Auto 73.7 % (45-73); Platelet Count 219 X10*3/uL (160-400); Red Blood Count 2.92 X10*6/uL (4.60-5.80); Red Cell Distribution Width 16.4 % (11.0-16.0); White Blood Count 4.6 X10*3/uL (4.8-10.8)
[2025-01-22 18:00] VITALS: BP 172/84; RESP 77; TEMP 36.7; O2SAT 99
[2025-01-22 18:01] LABS: Alanine Aminotransferase 15 U/L (0-40); Albumin Level 2.8 g/dL (3.5-5.0); Alkaline Phosphatase 194 U/L (39-117); Anion Gap 11 (12-20); Aspartate Amino Transferase 22 U/L (5-37); Bilirubin Direct 0.4 mg/dL (0.0-0.5); Bilirubin Total 0.9 mg/dL (0.0-1.0); Blood Urea Nitrogen 22 mg/dL (9-16); Calcium 8.2 mg/dL (8.4-10.2); Carbon Dioxide 28 mmol/L (22-29); Chloride 105 mmol/L (96-108); Creatinine Clr Calc Pharmacy 33.9; Estimated Glomerular Filt Rate 32; Glucose Random 99 mg/dL (60-115); Magnesium 1.5 mg/dL (1.6-2.6); Potassium 3.5 mmol/L (3.3-5.1); Sodium 140 mmol/L (135-145)
[2025-01-22 18:02] VITALS: BP 172/84
[2025-01-22] MEDS: Furosemide 40 MG/4 ML VIAL IVPUSH (18:02)
[2025-01-22 18:07] LABS: B Type Natriuretic Peptide 1166 pg/mL (<100)
[2025-01-22 18:09] LABS: Troponin-I High Sensitivity 54.6 ng/L (<3.5-35.0)
[2025-01-22 18:19] LABS: INTERNATIONAL NORM RATIO 1.3 (0.9-1.1); Prothrombin Time 14.5 SEC (10.9-12.4)
[2025-01-22 18:24] LABS: Influenza A PCR NEGATIVE (Negative); Influenza B PCR NEGATIVE (Negative); Resp Syncy Virus RNA Qual PCR NEGATIVE (Negative); SARS COV2 PCR INHOUSE NEGATIVE (Negative)
--- OUTSIDE RECORDS SUMMARY | 2025-01-22 18:24 | XMS_ITS | Encounter Summary ---
Author Organization [employer] Address [address] [facility] [address] [place] [address] Care Team Providers Care Fitness And Wellness Instructor Name Role Phone Cynthia Marshall NP Primary Care Provider [phone] Encounter Details Date Type Department Care Team ([facility] st Contact Info) Description 09/26/2024 Orders Only [facility] MEDIC[facility] [address] [place], [place] [id number] Cynthia Marshall NP [address] [place] [address] Stage 3b chronic kidney disease (CMS/HCC) Social [...] Care Team (Late st Contact Info) Description 01/26/2025 9:30 AM EDT Medication Management [address] [address] 02/04/2025 11:30 AM EDT Office Visit [address] [address] Cynthia Marshall NP [address] [place] [id number] 03/04/2025 10:15 AM EDT Office Visit [address] [address] Cynthia Marshall NP [address] [place] [id number] documented as of this encounter Visit Diagnoses Diagnosis Stage 3b chronic kidney disease (CMS/HCC) documented in this encounter Additional Health Concerns Assessment Noted Time PHQ-9 Depression Total Score: 0 01/21/20 24 11:17 AM EDT documented as of this encounter Care Teams Fitness And Wellness Instructor Relationship Specialty Start Date End Date yCnthia Marshall NP [address] [place] [phone] PCP - General Family Medicine 09/10/23 [facility] 01/01/25 documented as of this encounter
[2025-01-22 19:58] VITALS: BP 172/84; PULSE 74; RESP 18; TEMP 37; O2SAT 96
== END 2025-01-22 19:58 | disposition left against medical advice (07) ==
PROVIDERS: Physician Assistant; Emergency Provider Emergency Medicine Emergency Medical Services; PCP Student in an Organized Health Care Education/Training Program
DX: J81.1 Chronic pulmonary edema (principal); R53.1 Weakness; I48.91 Unspecified atrial fibrillation; R06.02 Shortness of breath; Z79.01 Long term (current) use of anticoagulants; Z03.818 Encounter for observation for suspected exposure to other biological agents ruled out; Z79.899 Other long term (current) drug therapy
CPT/HCPCS: 0241U; 71046; 80048; 80076; 83735; 83880; 84484; 85025; 85610; 93005; 96374; 99284; J1938

== ENCOUNTER → 2025-01-22 17:07 | Outpatient (BNV) | payer OTHER, SELFPAY | PROVIDERS: Emergency Provider Emergency Medicine Emergency Medical Services; PCP Student in an Organized Health Care Education/Training Program; Visit Provider Radiology Diagnostic Radiology | DX: J81.0 Acute pulmonary edema (principal) | CPT/HCPCS: 71046 ==

== ENCOUNTER → 2025-01-22 17:08 | Outpatient (BNV) | payer OTHER, SELFPAY | PROVIDERS: Emergency Provider Emergency Medicine Emergency Medical Services; PCP Student in an Organized Health Care Education/Training Program; Visit Provider Internal Medicine Cardiovascular Disease | DX: I48.91 Unspecified atrial fibrillation (principal) | CPT/HCPCS: 93010 ==

== ENCOUNTER 2025-01-26 11:40 | Inpatient (IN) | payer OTHER, SELFPAY ==
--- NOTE | ~2025-01-26 | XR_ITS ---
EXAMINATION: XR CHEST CLINICAL INFORMATION: SOB COMPARISON: January 22, 2025 TECHNIQUE: 2 views of the chest were obtained. FINDINGS: Meniscal shaped opacity right lower hemithorax. Blunting of the left costophrenic angle. Mild prominence of the interstitial markings in the perihilar region. Cardiomediastinal silhouette size is normal. No pneumothorax. Calcified plaque thoracic aorta. Multilevel thoracic and upper lumbar spondylosis. Degenerative changes in both shoulders. XR/XR chest 2V IMPRESSION: Mild interstitial edema and bilateral pleural effusions, moderate volume on the right and small to moderate volume on the left. Overall no gross change. Electronically signed by: Brennan Robbins MD 01/26/2025 01:09 PM EDT
[2025-01-26 11:55] VITALS: BP 186/87; PULSE 78; RESP 18; TEMP 36.6; O2SAT 95; BMI 27.7
--- NOTE | 2025-01-26 11:55 | ED.GENADULT ---
HPI - General Adult General Chief complaint: Chest Pain Stated complaint: SOB, Lower extremity swelling, Pneumonia? 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 Stein HPI narrative: 74-year-old male came in with his son from PCP office for evaluation of elevated blood pressure, worsening edema of lower extremity bilaterally, increased exertional a shortness of breath, patient takes water pills at home with a question of compliance with his medication due to worsening of dementia. Significant bilateral lower extremity edema noticed on the patient with bilateral rales on physical exam. No coughing, no fever, no chills, no recent travel, no recent prolonged immobilization, son reports that the patient sleep sitting because he can not lay flat. Patient lives home by himself family lives close by check on him at least once daily, son tried to arrange for a visiting nurse but patient most of the time do not open the door for her. Related Data Home Medications ?Medication ?Instructions ?Recorded ?Confirmed blood-glucose meter #1 ea 05/14/20 01/14/24 lancets #100 ea 05/14/20 01/14/24 atorvastatin 40 mg tablet 40 mg PO DAILY 12/19/22 12/05/24 lisinopril 40 mg tablet 40 mg PO DAILY 10/20/24 12/05/24 apixaban 2.5 mg tablet (Eliquis) 2.5 mg PO BID 12/05/24 12/05/24 Previous Rx's ?Medication ?Instructions ?Recorded blood sugar diagnostic #50 ea 01/24/21 calcitriol 0.25 mcg capsule 0.25 mcg PO Q2D #14 caps 10/17/24 furosemide 20 mg tablet 20 mg PO DAILY #30 tabs 12/16/24 omeprazole 40 mg capsule,delayed 40 mg PO BID@0630,1630 #60 caps 12/16/24 release sucralfate 1 gram tablet 1 g PO TID #90 tabs 12/16/24 ferrous sulfate 325 mg (65 mg 325 mg PO BID #60 tabs 01/26/25 iron) tablet Allergies Allergy/AdvReac Type Severity Reaction Status Date / Time No Known Allergies Allergy Verified 01/26/25 11:57 [No Known Allergies*] Review of Systems Review of Systems: All other systems are reviewed and are negative Constitutional: Reports as per HPI and Reports no additional constitutional complaints Eyes: Reports as per HPI and Reports no additional eye complaints Reports system reviewed and no additional complaints, except as documented Cardiovascular: Reports as per HPI and Reports no additional cardiovascular complaints Respiratory: Reports as per HPI and Reports no additional respiratory complaints Gastrointestinal: Reports as per HPI and Reports no additional gastrointestinal complaints Genitourinary: Reports no additional female genitourinary complaints Musculoskeletal: Reports no additional musculoskeletal complaints Skin/Breast: Reports system reviewed and no additional complaints, except as docu Psychiatric: Reports no additional psychiatric complaints Endocrine: Reports no additional endocrine complaints Hematologic/Lymphatic: Reports no additional hematologic/lymphatic complaints Allergic/Immunologic: Reports no additional allergic/immunologic complaints Reports system reviewed and no additional complaints, except as documented and Reports Abnormal speech present [facility] Past Medical History Medical History Anemia in chronic kidney disease (CKD) CKD (chronic kidney disease) Hypertension CHF (congestive heart failure) CKD (chronic kidney disease) stage 4, GFR 15-29 ml/min Obesity (BMI 30.0-34.9) Cardiomyopathy Stroke Chronic atrial fibrillation CKD (chronic kidney disease) Former smoker Depression Diabetes High cholesterol Surgical History History of aneurysm History of shoulder surgery Family History Family History Father No problems noted. Mother Diabetes Hypertension Cancer Son No problems noted. Son No problems noted. Son No problems noted. Daughter No problems noted. Daughter No problems noted. Social History Social History Household Members: None Household Members Other:: Housing: Apartment Are you a primary child care supervisor to a significant other at home: No Do you presently have visiting nurse or other home services: No Alcohol intake: never Patient Tobacco Use Status: Former Tobacco user Substance Use Type: Marijuana Advance Directives: No Advance Directives Information Provided: Yes Do you have a plan to hurt others: No Plan service: No Current occupational status: disabled Physical Exam ED Vital Signs: Vital Signs - 24 hr 01/26/25 11:55 01/26/25 12:53 Temperature 98 F 98 F Pulse Rate 78 64 Respiratory Rate 18 16 Blood Pressure 186/87 H 160/51 H Pulse Oximetry 95 95 Oxygen Delivery Method Room Air BMI result Body Mass Index 27.7 Vital signs have been reviewed and appear to be correct. Blood pressure elevated. Heart rate normal. Respiratory rate normal. Temperature normal. Oxygen saturation normal. Appearance: Alert. Oriented X3. No acute distress. Head: Normal external exam. Normocephalic. Atraumatic. No Simental signs noted. No raccoon eyes noted Eyes: PERRLA. EOMI. Conjunctiva and sclera normal. Eyelids normal. ENT: TM's Normal. Pharynx normal. Uvula midline. Moist mucous membranes. No trismus noted. No drooling noted. No muffled voice noted. Neck: Normal inspection. Neck supple. FROM. No adenopathy. Thyroid Normal. No meningeal signs. No neck mass noted. CVS: Normal heart rate and rhythm. Heart sound normal. No murmurs noted. Pulses normal throughout. Respiratory: No respiratory distress. Painless inspiration. Breath sounds normal. Bilateral basilar rales,Chest nontender. No accessory muscle usage noted or decreased air movement noted. Abdomen: Soft and nontender. Bowel sounds normal in all 4 quadrants. No distention noted. No organomegaly noted. No visible injury noted. Back: No CVA tenderness. Full range of motion noted. Skin: Skin warm and dry. Normal skin color. Normal skin turgor. No rashes/lesions/lacerations noted. Extremities: +3 lower extremity edema bilaterally. Extremities exhibit normal range of motion. Extremities nontender. Neuro: Oriented X 3. Cranial nerve exam: II-XII are grossly intact No motor deficit. No sensory deficit. Reflexes normal. Course Course Course Narrative: RME performed by Eileen Wong PA-C. Patient is a 74 year old assigned male at presenting to the emergency department with bilateral lower leg swelling and shortness of breath. Patient's son states that the patient has seemed more short of breath lately and has been having lower leg swelling. States that the patient is supposed to be on water pills but evidently he believes some early dementia is starting and he doesn't believe he is taking his medicine. Detailed physical exam and review of systems are deferred to the bicycle i assembler. EKG, labs, imaging, and swabs ordered. Patient placed back in the waiting room pending room availability and results. Reevaluation(s) Reevaluation #1: 74-year-old male with history of congestive heart failure apparently noncompliant with his medication secondary to advanced dementia. 1. Administer IV Lasix, nitroglycerin to help with blood pressure. 2. Hypokalemia will replace potassium IV and p.o.. 3. Admit for more diuresis. Case discussed with Dr. Bates. Time: 13:30 Medical Decision Making Differential Diagnosis Differential Diagnoses: The differential diagnosis associated with the presentation includes ( CHF exacerbation, pneumonia, pneumothorax, pleural effusion, ACS, electrolyte derangement, severe anemia.) Admission/Observation Consideration of admission/observation: Escalation of care including admission/observation considered Consult Healthcare Provider Management of the patient was discussed with: Hospitalist ( Dr. Bates) Lab Data MDM Lab Attestation statement: I reviewed the patient's lab results. 01/26/25 12:11 01/26/25 12:11 Labs: Lab Results 01/26/25 01/26/25 Range/Units 12:11 12:24 WBC 7.1 (4.8-10.8) X10*3/uL RBC 3.24 L (4.60-5.80) X10*6/uL Hgb 9.2 L (14.0-18.0) g/dl Hct 29.7 L (42.0-52.0) % MCV 91.7 (80.0-98.0) fL MCH 28.4 (27.0-33.0) pg MCHC 31.0 (31.0-36.0) g/dl RDW 16.8 H (11.0-16.0) % Plt Count 299 D (160-400) X10*3/uL MPV 9.2 L (9.4-12.4) fL Immature Gran % (Auto) 0.3 (0.0-0.4) % Neut % (Auto) 80.2 H (45-73) % Lymph % (Auto) 13.8 L (20-40) % [place] % (Auto) 5.1 (2-11) % Eos % (Auto) 0.3 (0-4) % Baso % (Auto) 0.3 (0-2) % Lymph # (Auto) 1.0 L (1.2-4.9) X10*3/uL [place] # (Auto) 0.4 (0.1-1.2) X10*3/uL Eos # (Auto) 0.0 (0.0-0.4) X10*3/uL Baso # (Auto) 0.0 (0.0-0.2) X10*3/uL Abs Immat Gran (auto) 0.02 (0.00-0.03) X10*3/uL Absolute Neuts (auto) 5.7 (2.0-8.3) x10*3/uL Absolute Nucleated RBC 0.000 (0.0-0.012) X10*3/uL Nucleated RBC % (auto) 0.0 (0.0-0.2) /100WBC PT 15.3 H (10.9-12.4) SEC INR 1.3 H (0.9-1.1) VBG pH 7.43 (7.32-7.43) VBG pCO2 39 mmHg VBG pO2 39 mmHg VBG HCO3 26 (22-26) mmol/L VBG O2 Saturation 52.0 % VBG Base Excess 2.5 mmol/L Sodium 142 (135-145) mmol/L Potassium 3.1 L (3.3-5.1) mmol/L Chloride 107 (96-108) mmol/L Carbon Dioxide 26 (22-29) mmol/L Anion Gap 12 (12-20) BUN 29 H (9-16) mg/dL Creatinine 1.86 H (0.5-1.4) mg/dL Estim Creat Clear Calc 37.6 Estimated GFR 36 Random Glucose 129 H (60-115) mg/dL Calcium 8.9 D (8.4-10.2) mg/dL Magnesium 1.5 L (1.6-2.6) mg/dL Total Bilirubin 1.0 (0.0-1.0) mg/dL AST 30 (5-37) U/L ALT 19 (0-40) U/L Alkaline Phosphatase 259 H (39-117) U/L Troponin I High Sens 44.3 H (<3.5-35.0) ng/L B-Natriuretic Peptide 1451 H (<100) pg/mL Total Protein 7.1 (6.5-8.0) g/dL Albumin 3.3 L (3.5-5.0) g/dL Independent Interpretation I performed an independent interpretation of an: Plain X-Ray ( chest : pulmonary congestion.) Radiology Impression Discussion of test interpretation with radiology: I have reviewed the radiologist's reading. Discharge Plan Discharge Clinical Impression: Congestive heart failure, Acute hypokalemia Patient Disposition: Admitted As Inpatient Prescriptions: No Action (DME) blood sugar diagnostic Strip See Rx Instructions .ROUTE BID Qty: 50 11RF Rx Instructions: Use 1 test strip once a day ferrous sulfate 325 mg (65 mg iron) tablet 325 mg PO BID Qty: 60 11RF atorvastatin 40 mg tablet 40 mg PO DAILY Eliquis 2.5 mg tablet 2.5 mg PO BID sucralfate 1 gram Tablet 1 g PO TID Qty: 90 0RF omeprazole 40 mg Capsule,Delayed Release(Dr/Ec) 40 mg PO BID@0630,1630 Qty: 60 0RF furosemide 20 mg Tablet 20 mg PO DAILY Qty: 30 0RF Protocol: Hold for SBP< HOLD for SBP < : 90 lisinopril 40 mg tablet 40 mg PO DAILY (DME) blood-glucose meter Misc See Rx Instructions PO BID Qty: 1 Rx Instructions: As directed (DME) lancets Misc See Rx Instructions .ROUTE BID Qty: 100 Rx Instructions: As directed calcitriol 0.25 mcg capsule 0.25 mcg PO Q2D Qty: 14 6RF Print Language: Portuguese
--- NOTE | 2025-01-26 11:56 | ECG_ITS ---
Test Reason : chest pain, SOB Blood Pressure : */* mmHG Vent. Rate : 71 BPM Atrial Rate : 86 BPM P-R Int : * ms QRS Dur : 100 ms QT Int : 392 ms P-R-T Axes : 91 20 179 degrees QTcB Int : 425 ms Atrial fibrillation Left ventricular hypertrophy with repolarization abnormality ( Crane product ) Abnormal ECG When compared with ECG of 22-Jan-2025 17:33, Inverted T waves have replaced nonspecific T wave abnormality in Lateral leads QT has shortened Referred By: Eileen Wong Electronically Signed By: Ash Pedersen
[2025-01-26 12:23] LABS: MANUAL DIFF FLAG NO
[2025-01-26 12:25] LABS: Venous Blood Gas Refer to POC result
[2025-01-26 12:25] LABS: Basophils Percent Auto 0.3 % (0-2); Eosinophils Percent Auto 0.3 % (0-4); Hematocrit 29.7 % (42.0-52.0); Hemoglobin 9.2 g/dl (14.0-18.0); Imm Gran Abs Auto 0.02 X10*3/uL (0.00-0.03); Imm Gran Pct Auto 0.3 % (0.0-0.4); Lymphocytes Percent Auto 13.8 % (20-40); Mean Corpuscular Hemoglobin 28.4 pg (27.0-33.0); Mean Corpuscular Volume 91.7 fL (80.0-98.0); Mean Platelet Volume 9.2 fL (9.4-12.4); Monocytes Absolute Auto 0.4 X10*3/uL (0.1-1.2); Monocytes Percent Auto 5.1 % (2-11); Neutrophils Absolute Auto 5.7 x10*3/uL (2.0-8.3); Neutrophils Percent Auto 80.2 % (45-73); Platelet Count 299 X10*3/uL (160-400); Red Blood Count 3.24 X10*6/uL (4.60-5.80); Red Cell Distribution Width 16.8 % (11.0-16.0); White Blood Count 7.1 X10*3/uL (4.8-10.8)
[2025-01-26 12:28] LABS: VBG Base Excess 2.5 mmol/L; VBG HCO3 26 mmol/L (22-26); VBG pCO2 39 mmHg; VBG pH 7.43 (7.32-7.43); VBG pO2 39 mmHg
[2025-01-26 12:32] LABS: INTERNATIONAL NORM RATIO 1.3 (0.9-1.1); Prothrombin Time 15.3 SEC (10.9-12.4)
[2025-01-26 12:40] LABS: Alanine Aminotransferase 19 U/L (0-40); Albumin Level 3.3 g/dL (3.5-5.0); Alkaline Phosphatase 259 U/L (39-117); Anion Gap 12 (12-20); Aspartate Amino Transferase 30 U/L (5-37); Blood Urea Nitrogen 29 mg/dL (9-16); Calcium 8.9 mg/dL (8.4-10.2); Carbon Dioxide 26 mmol/L (22-29); Chloride 107 mmol/L (96-108); Creatinine Clr Calc Pharmacy 37.6; Estimated Glomerular Filt Rate 36; Glucose Random 129 mg/dL (60-115); Magnesium 1.5 mg/dL (1.6-2.6); Potassium 3.1 mmol/L (3.3-5.1); Sodium 142 mmol/L (135-145); Total Protein 7.1 g/dL (6.5-8.0)
[2025-01-26 12:46] LABS: B Type Natriuretic Peptide 1451 pg/mL (<100)
[2025-01-26 12:47] LABS: Troponin-I High Sensitivity 44.3 ng/L (<3.5-35.0)
[2025-01-26 12:53] VITALS: BP 160/51; PULSE 64; RESP 16; TEMP 36.6; O2SAT 95
[2025-01-26 13:03] LABS: Influenza A PCR NEGATIVE (Negative); Influenza B PCR NEGATIVE (Negative); Resp Syncy Virus RNA Qual PCR NEGATIVE (Negative); SARS COV2 PCR INHOUSE NEGATIVE (Negative)
--- OUTSIDE RECORDS SUMMARY | 2025-01-26 13:37 | XMS_ITS | Encounter Summary ---
Author Organization [employer] Address [address] [place] [address] Care Team Providers Care Correctional Agency Director Name Role Phone Cynthia Marshall NP Primary Care Provider [phone] Encounter Details Date Type Department Care Team ([facility] st Contact Info) Description 09/26/2024 Orders Only [facility] [address], [place] [id number] Cynthia Marshall NP [address] [place] [address] Stage 3b chronic kidney disease (CMS/HCC) Social [...] Care Team (Late st Contact Info) Description 02/04/2025 11:30 AM EDT Office Visit [facility] [address] [place] [phone] Cynthia Marshall NP [address] [place] [phone] 02/27/2025 9:00 AM EDT Medication Management [address] [address] Pauline Warner PharmD [address] [place] [id number] 03/04/2025 10:15 AM EDT Office Visit [address] [phone] Cynthia Marshall NP [address] [place] [phone] documented as of this encounter Visit Diagnoses Diagnosis Stage 3b chronic kidney disease (CMS/HCC) documented in this encounter Additional Health Concerns Assessment Noted Time PHQ-9 Depression Total Score: 0 01/21/20 24 11:17 AM EDT documented as of this encounter Care Teams Correctional Agency Director Relationship Specialty Start Date End Date Cynthia Marshall NP [address] [place] [id number] PCP - General Family Medicine 09/10/23 [facility] 01/01/25 documented as of this encounter
--- NOTE | 2025-01-26 13:39 | P.HPHOSP_ITS ---
History of Present Illness Date of Service: 01/26/25 Chief Complaint: SOB A 74-year-old male with a past medical history of HTN, HLD, dm, CAD, CKD, CHF-35-40%, AFib on Eliquis, anemia, hyperparathyroidism, osteoarthritis presentig with worsening SOB and chest discomfort for 3 days. He went to PCP few days ago for increase swelling in lower extremities as he forgets to take his pills sometimes. No chest pain, palpitations, nausea, vomiting, diarrhea or urinary symptoms. reports heaviness in chest with ambulation and when laying down in bed. no fever or chills. He lives by himself and has VNA visiting. In ED CXR showed increase markings with elevated BNP and low K and Mg. admitted for further work up and management. Review of Systems 2 Review of Systems: No fever, chills or weakness No chest pain, palpitation , increasing edema reports shortness of breath or coughing No abdominal pain, nausea or vomiting No urinary symptoms No any rash or wounds [facility] Medical History Anemia in chronic kidney disease (CKD) CKD (chronic kidney disease) Hypertension CHF (congestive heart failure) CKD (chronic kidney disease) stage 4, GFR 15-29 ml/min Obesity (BMI 30.0-34.9) Cardiomyopathy Stroke Chronic atrial fibrillation CKD (chronic kidney disease) Former smoker Depression Diabetes High cholesterol Family History Father No problems noted. Mother Diabetes Hypertension Cancer Son No problems noted. Son No problems noted. Son No problems noted. Daughter No problems noted. Daughter No problems noted. Surgical History History of aneurysm History of shoulder surgery Social History Household Members: None Household Members Other:: Housing: Apartment Are you a primary nurse wound care to a significant other at home: No Do you presently have visiting nurse or other home services: Yes Unable to assess alcohol history related to: Unknown Alcohol intake: never Patient Tobacco Use Status: Former Tobacco user Smoked in Last 30 Days: No Patient Interested in Nicotine Replacement: No Patient Given Instructions on How to Stop Smoking: No Use of substances other than those prescribed or required for medical reasons: Unknown Substance Use Type: Marijuana Have you been hit, kicked, punched, or otherwise hurt by someone within the past year? If so, by whom?: No Do you feel safe in your current relationship?: No Current Relationship Is there a partner from a previous relationship who is making you feel unsafe now?: No Are you made to feel afraid or neglected: No Advance Directives: No Advance Directives Information Provided: Yes Do you have a plan to hurt others: No Plan Recently lost weight without trying: Unsure Nutrition Risks: No Nutritional Risk Poor oral hygiene: No service: No Current occupational status: disabled [employer] Allergies Allergy/AdvReac Type Severity Reaction Status Date / Time No Known Allergies Allergy Verified 01/26/25 11:57 [No Known Allergies*] Active Medications: Current Medications Potassium Chloride (Potassium Chloride/H20) 10 meq in 100 mls @ 100 mls/hr IV ONCE ONE Stop: 01/26/25 14:04 Home Medications ?Medication ?Instructions ?Recorded ?Confirmed ?Last Taken ?Type blood-glucose meter #1 ea 05/14/20 01/14/24 Unknown History lancets #100 ea 05/14/20 01/14/24 Unknown History atorvastatin 40 mg tablet 40 mg PO DAILY 12/19/22 01/26/25 11/11/24 History lisinopril 40 mg tablet 40 mg PO DAILY 10/20/24 01/26/25 11/11/24 History apixaban 2.5 mg tablet (Eliquis) 2.5 mg PO BID 12/05/24 01/26/25 Unknown History sucralfate 1 gram tablet 1 g PO TID GASTRITIS 01/26/25 01/26/25 Unknown History Physical Exam 2 Vital Signs and Narrative: Vital Signs: Last Vital Signs Temp 98 F 01/26/25 12:53 Pulse 64 01/26/25 12:53 Resp 16 01/26/25 12:53 BP 160/51 H 01/26/25 12:53 Pulse Ox 95 01/26/25 12:53 O2 Del Method Room Air 01/26/25 12:53 BMI result Body Mass Index 27.7 Const: Other: Constitutional : interactive, not in distress Cardiovascular : no JVP, +2 bilateral lower extremity edema Respiratory : bilateral chest movement, not in resp distress , basal crackles Gastrointestinal: soft, lax, Non tender Skin : Warm, Dry Neurological : Alert & oriented , No focal deficit Results Labs 01/26/25 12:11 01/26/25 12:11 Labs: Laboratory Results - last 24 hr 01/26/25 01/26/25 12:11 12:24 MCV 91.7 MCH 28.4 MCHC 31.0 RDW 16.8 H Plt Count 299 D MPV 9.2 L Immature Gran % (Auto) 0.3 Neut % (Auto) 80.2 H Lymph % (Auto) 13.8 L [place] % (Auto) 5.1 Eos % (Auto) 0.3 Baso % (Auto) 0.3 Lymph # (Auto) 1.0 L [place] # (Auto) 0.4 Eos # (Auto) 0.0 Baso # (Auto) 0.0 Abs Immat Gran (auto) 0.02 Absolute Neuts (auto) 5.7 Absolute Nucleated RBC 0.000 Nucleated RBC % (auto) 0.0 PT 15.3 H INR 1.3 H VBG pH 7.43 VBG pCO2 39 VBG pO2 39 VBG HCO3 26 VBG O2 Saturation 52.0 VBG Base Excess 2.5 Anion Gap 12 Estim Creat Clear Calc 37.6 Estimated GFR 36 Random Glucose 129 H Calcium 8.9 D Magnesium 1.5 L Total Bilirubin 1.0 AST 30 ALT 19 Alkaline Phosphatase 259 H Troponin I High Sens 44.3 H B-Natriuretic Peptide 1451 H Total Protein 7.1 Albumin 3.3 L Influenza Type A (PCR) NEGATIVE Influenza Type B (PCR) NEGATIVE RSV RNA Qual (PCR) NEGATIVE SARS-CoV-2 RNA (RT-PCR) NEGATIVE Imaging Radiologist's Impressions: Impressions Chest X-Ray 01/26/25 12:04 IMPRESSION: Mild interstitial edema and bilateral pleural effusions, moderate volume on the right and small to moderate volume on the left. Overall no gross change. Electronically signed by: Brennan Robbins MD 01/26/2025 01:09 PM EDT Assessment and Plan (1) Acute hypokalemia: Status: Acute (2) Congestive heart failure: Status: Acute (3) Hypomagnesemia: Status: Acute Plan A 74-year-old male with a past medical history of HTN, HLD, dm, CAD, CKD, CHF-35-40%, AFib on Eliquis, anemia, hyperparathyroidism, osteoarthritis presentig with worsening SOB and chest discomfort for 3 days. Acute on chronic diastolic CHF exacerbation BNP elevated, Edema in LE CXR showing increase markings IV Lasix I\O O2 as needed Acute hypokalemia replacement given, follow K Acute hypomagnesemia replacement given, follow Mg CDK3, stable follow HTN Lisinopril DMII SSI, Lantus, POC PErsistent Afib rate controlled continue Eliquis GERD Omeprazole DVT PPx Eliquis The patient will need 2 overnight stay for treatment of CHF exacerbation Quality Stroke Does the patient have a stroke diagnosis?: No VTE Prior VTE?: No VTE Risk Level:: Medical - moderate - high VTE Device Contraindication: Treatment Not Indicated VTE Drug Contraindication: N/A - Med Ordered
[2025-01-26] MEDS: Magnesium Sulfate/H2O 2 GM/50 ML PIGGYBACK IV (13:57)
[2025-01-26 13:59] VITALS: BP 167/66
[2025-01-26] MEDS: Furosemide 40 MG/4 ML VIAL IVPUSH (13:59)
[2025-01-26] MEDS: Nitroglycerin 2 % Oint 1 GM Packet 0.5 INCH TRANSDERMA (14:04)
--- NOTE | 2025-01-26 14:44 | PHA.MEDREC ---
Pharmacy Consult ? Medication Reconciliation Pharmacy has completed the medication reconciliation. Spoke with pt and pt was a poor historian and confused when I spoke with him. I called pt daughter Esha and she did not know much about her dads medications except a few of the names but not dosage or how or the last time he took them; she stated when she gets out of work she'll go to her dads house and call us back to confirm them. I tried pt son Javy and his phone is disconnected. I got a list faxed from [facility] I was able to utilize for now to confirm the med rec.
--- NOTE | 2025-01-26 14:44 | PC.NURSE ---
Pt refusing to be admitted to hospital, yelling that he wanted to leave right now ; pt showing poor judgment; confused; pt's son reached on pt's cell phone and son calmed pt down; pt ready to be admitted
--- NOTE | 2025-01-26 15:05 | PHA.MEDREC ---
Addendum entered by Lonny Daniels RPh 01/26/25 15:21: MED REC REVIEWED BY [facility] Original Note: Pharmacy Consult ? Medication Reconciliation Pharmacy has completed the medication reconciliation. Spoke with pt and pt was a poor historian and confused when I spoke with him. I called pt daughter Esha and she did not know much about her dads medications except a few of the names but not dosage or how or the last time he took them; she stated when she gets out of work she'll go to her dads house and call us back to confirm them. I tried pt son Javy and his phone is disconnected. I got a list faxed from [facility] I was able to utilize for now to confirm the med rec. I called [facility] to confirm the last fill of Atorvastatin 40mg and Sucralfate 1g tabs and they confirmed the pt last picked up the Atorvastatin 40mg tab 09/15 for 90 days and the Sucralfate 1gm tab was last picked up 01/21 for 30 days.
[2025-01-26] MEDS: Potassium Chloride/H20 10 MEQ/100 ML PIGGYBACK 100 MEQ IV (15:37)
[2025-01-26] MEDS: 0.9 % Sodium Chloride Flush 3 ML SYRINGE IVFLUSH ×2 (15:37→22:31)
[2025-01-26] MEDS: Potassium Chloride ER 20 MEQ TAB.ER.PRT 60 MEQ PO (15:37)
[2025-01-26] MEDS: Omeprazole 40 MG CAPSULE.DR PO (15:48)
[2025-01-26 16:15] VITALS: BP 188/78; PULSE 85; RESP 18; TEMP 36.3; O2SAT 94
[2025-01-26 20:00] VITALS: BP 190/73; PULSE 72; RESP 16; TEMP 36.3; O2SAT 95; BMI 27.6
[2025-01-26] MEDS: Apixaban 2.5 MG TABLET PO (20:05)
[2025-01-26] MEDS: Sucralfate 1 GM TABLET PO (20:05)
--- NOTE | 2025-01-26 20:50 | PC.NURSE ---
Patient's bp elevated manual 190/73 hr 72 pt does not have any scheduled nighttime bp meds, on daily lisinopril. Patient denies pain or discomfort. Last bp check at 4pm was also elevated 188/78. Dr. Bo notified, no new orders at this time.
[2025-01-26 23:59] VITALS: BP 175/89; PULSE 79; RESP 16; TEMP 36.3; O2SAT 92
[2025-01-27] VITALS (7 sets, daily range): BP systolic 164–190; BP diastolic 80–96; PULSE 66–88; RESP 16–18; TEMP 36.1–37.2; O2SAT 84–93
--- NOTE | 2025-01-27 02:50 | PC.NURSE ---
Addendum entered by Marilyn Uribe RN 01/27/25 03:01: Patient continues to refuse high fall risk precautions, refusing bed alarm, re educated patient on high fall risk precautions encourage pt to use call geiger for assistance. Original Note: Patient's oxygen is jumping between 86-90% on room air. Attempted to put on nasal cannula 2 liters, pt refused stated does not want to wear any oxygen and that his breathing is just fine Dr. Bo made aware.
[2025-01-27] MEDS: Omeprazole 40 MG CAPSULE.DR PO ×2 (05:55→15:20)
[2025-01-27 07:11] LABS: MANUAL DIFF FLAG NO
[2025-01-27 07:17] LABS: Basophils Percent Auto 0.2 % (0-2); Eosinophils Absolute Auto 0.1 X10*3/uL (0.0-0.4); Eosinophils Percent Auto 0.8 % (0-4); Hematocrit 30.6 % (42.0-52.0); Hemoglobin 9.7 g/dl (14.0-18.0); Imm Gran Abs Auto 0.02 X10*3/uL (0.00-0.03); Imm Gran Pct Auto 0.3 % (0.0-0.4); Lymphocytes Absolute Auto 1.3 X10*3/uL (1.2-4.9); Lymphocytes Percent Auto 20.5 % (20-40); Mean Corpuscular HGB Conc 31.7 g/dl (31.0-36.0); Mean Corpuscular Hemoglobin 28.5 pg (27.0-33.0); Mean Platelet Volume 9.4 fL (9.4-12.4); Monocytes Absolute Auto 0.3 X10*3/uL (0.1-1.2); Monocytes Percent Auto 4.7 % (2-11); Neutrophils Absolute Auto 4.7 x10*3/uL (2.0-8.3); Neutrophils Percent Auto 73.5 % (45-73); Platelet Count 288 X10*3/uL (160-400); Red Cell Distribution Width 16.8 % (11.0-16.0); White Blood Count 6.4 X10*3/uL (4.8-10.8)
[2025-01-27 07:40] LABS: Alanine Aminotransferase 12 U/L (0-40); Alkaline Phosphatase 248 U/L (39-117); Aspartate Amino Transferase 39 U/L (5-37); B Type Natriuretic Peptide 1265 pg/mL (<100); Bilirubin Total 1.3 mg/dL (0.0-1.0); Blood Urea Nitrogen 25 mg/dL (9-16); Creatinine Clr Calc Pharmacy 40.3; Estimated Glomerular Filt Rate 39; Glucose Random 97 mg/dL (60-115); Total Protein 6.9 g/dL (6.5-8.0)
[2025-01-27 07:55] LABS: Potassium 3.8 mmol/L (3.3-5.1); Sodium 142 mmol/L (135-145)
[2025-01-27 07:56] LABS: Anion Gap 16 (12-20); Carbon Dioxide 23 mmol/L (22-29); Chloride 107 mmol/L (96-108)
--- NOTE | 2025-01-27 08:03 | MHC.CM.PN ---
Addendum entered by Dana Pedersen 01/27/25 15:54: Pt is active with [facility], return referral sent via careport. Original Note: IMM 01/27. Pt self-care, lives alone at home. Pt will need assistance with transport home at discharge. HCP on file and verified. PCP: Dr. Blanca Anderson
[2025-01-27] MEDS: lisinopriL 40 MG TABLET PO (08:35)
[2025-01-27] MEDS: Apixaban 2.5 MG TABLET PO ×2 (08:36→21:21)
[2025-01-27] MEDS: Sucralfate 1 GM TABLET PO ×3 (08:36→21:21)
[2025-01-27] MEDS: Atorvastatin Calcium 40 MG TABLET PO (08:36)
[2025-01-27] MEDS: amLODIPine Besylate 5 MG TABLET PO (08:36)
[2025-01-27] MEDS: calcitrioL 0.25 MCG CAPSULE PO (08:36)
[2025-01-27] MEDS: 0.9 % Sodium Chloride Flush 3 ML SYRINGE IVFLUSH ×2 (08:37→15:21)
--- NOTE | 2025-01-27 14:25 | HO.PM.IMPN ---
Subjective Subjective Date of Service: 01/27/25 Interval History: seen and evaluated feels mild better denies fever and chills SOB improving still has significant edema Review of Systems Review of Systems: Yes all other systems are reviewed and are negative Physical Exam Vital Signs: Vital Signs: Last Vital Signs Temp 99.0 F 01/27/25 11:06 Pulse 73 01/27/25 11:06 Resp 16 01/27/25 11:06 BP 178/90 H 01/27/25 11:06 Pulse Ox 92 01/27/25 11:06 O2 Del Method Room Air 01/27/25 11:06 BMI result Body Mass Index 27.6 Const: Other: Constitutional : interactive, not in distress Cardiovascular : no JVP, +2 bilateral lower extremity edema Respiratory : bilateral chest movement, not in resp distress , basal crackles Gastrointestinal: soft, lax, Non tender Skin : Warm, Dry Neurological : Alert & oriented , No focal deficit Objective Data Active Medications Acetaminophen (Acetaminophen 325 Mg Tablet) 650 mg PO Q6H PRN PRN Reason: Pain, Mild 1-3,fever,headache Amlodipine Besylate (Amlodipine Besylate 5 Mg Tablet) 5 mg PO DAILY [facility]; Protocol Last Admin: 01/27/25 08:36 Dose: 5 mg Documented By: RADHA Apixaban (Apixaban 2.5 Mg Tablet) 2.5 mg PO BID [facility] Last Admin: 01/27/25 08:36 Dose: 2.5 mg Documented By: RADHA Atorvastatin Calcium (Atorvastatin Calcium 40 Mg Tablet) 40 mg PO DAILY [facility] Last Admin: 01/27/25 08:36 Dose: 40 mg Documented By: RADHA Calcitriol (Calcitriol 0.25 Mcg Capsule) 0.25 mcg PO Q48H [facility] Last Admin: 01/27/25 08:36 Dose: 0.25 mcg Documented By: RADHA Calcium Carbonate (Calcium Carbonate 750 Mg Tab.Chew) 750 mg PO Q4H PRN PRN Reason: Heartburn Furosemide (Furosemide 40 Mg/4 Ml Vial) 40 mg IVPUSH BID@0900,1800 [facility]; Protocol Last Admin: 01/27/25 09:30 Dose: Not Given Documented By: RADHA Non-Admin Reason: No Access Lisinopril (Lisinopril 40 Mg Tablet) 40 mg PO DAILY [facility]; Protocol Last Admin: 01/27/25 08:35 Dose: 40 mg Documented By: RADHA Magnesium Hydroxide (Milk Of Magnesia 30 Ml Oral.Susp) 30 ml PO DAILY PRN PRN Reason: Constipation Melatonin (Melatonin 3 Mg Tablet) 6 mg PO BEDTIME PRN PRN Reason: Insomnia Omeprazole (Omeprazole 40 Mg Capsule.Dr) 40 mg PO BID@0630,1630 [facility] Last Admin: 01/27/25 05:55 Dose: 40 mg Documented By: FANNY Ondansetron HCl (Ondansetron Hcl 4 Mg/2 Ml Vial) 4 mg IVPUSH Q8H PRN PRN Reason: Nausea and Vomiting Sodium Chloride (0.9 % Sodium Chloride Flush 3 Ml Syringe) 3 ml IVFLUSH QSHIFT [facility] Last Admin: 01/27/25 08:37 Dose: 3 ml Documented By: RADHA Sucralfate (Sucralfate 1 Gm Tablet) 1 gm PO TID [facility] Last Admin: 01/27/25 08:36 Dose: 1 gm Documented By: RADHA Labs 01/27/25 06:47 01/27/25 06:47 Labs: Laboratory Results - last 24 hr 01/27/25 06:47 MCV 90.0 MCH 28.5 MCHC 31.7 RDW 16.8 H Plt Count 288 MPV 9.4 Immature Gran % (Auto) 0.3 Neut % (Auto) 73.5 H Lymph % (Auto) 20.5 Real % (Auto) 4.7 Eos % (Auto) 0.8 Baso % (Auto) 0.2 Lymph # (Auto) 1.3 Real # (Auto) 0.3 Eos # (Auto) 0.1 Baso # (Auto) 0.0 Abs Immat Gran (auto) 0.02 Absolute Neuts (auto) 4.7 Absolute Nucleated RBC 0.000 Nucleated RBC % (auto) 0.0 Anion Gap 16 Estim Creat Clear Calc 40.3 Estimated GFR 39 Random Glucose 97 Calcium 9.0 Total Bilirubin 1.3 H AST 39 H ALT 12 Alkaline Phosphatase 248 H B-Natriuretic Peptide 1265 H Total Protein 6.9 Albumin 3.0 L Assessment and Plan (1) Hypomagnesemia: Status: Acute (2) Acute hypokalemia: Status: Acute (3) Congestive heart failure: Status: Acute Plan A 74-year-old male with a past medical history of HTN, HLD, dm, CAD, CKD, CHF-35-40%, AFib on Eliquis, anemia, hyperparathyroidism, osteoarthritis presentig with worsening SOB and chest discomfort for 3 days. Acute on chronic diastolic CHF exacerbation BNP elevated, Edema in LE CXR showing increase markings Echo from 12/05 showing EF 52% with hypokinetic wall motion continue IV Lasix bid I\O O2 as needed, wean off Acute hypokalemia replacement given, follow K Acute hypomagnesemia replacement given, follow Mg CDK3, stable follow HTN Lisinopril DMII SSI, Lantus, POC PErsistent Afib rate controlled continue Eliquis GERD Omeprazole DVT PPx Eliquis The patient will need overnight stay for treatment of CHF exacerbation Quality Stroke Does the patient have a stroke diagnosis?: No VTE Prior VTE?: No VTE Risk Level:: Medical - moderate - high VTE Device Contraindication: Treatment Not Indicated VTE Drug Contraindication: N/A - Med Ordered
--- NOTE | 2025-01-27 17:41 | PC.NURSE ---
kirk wraps applied by this nurse, per order, patient removed kirk wraps 2 hours after applied
[2025-01-27] MEDS: Furosemide 40 MG/4 ML VIAL IVPUSH (19:15)
[2025-01-27] MEDS: amLODIPine Besylate 2.5 MG TABLET PO (21:21)
[2025-01-28] VITALS (10 sets, daily range): BP systolic 154–188; BP diastolic 65–82; PULSE 60–75; RESP 16–20; TEMP 36.1–36.8; O2SAT 92–98
[2025-01-28] MEDS: Omeprazole 40 MG CAPSULE.DR PO ×2 (06:19→17:23)
[2025-01-28] MEDS: Acetaminophen 325 MG TABLET 650 MG PO (06:20)
[2025-01-28 06:56] LABS: Anion Gap 12 (12-20); Blood Urea Nitrogen 24 mg/dL (9-16); Calcium 9.3 mg/dL (8.4-10.2); Carbon Dioxide 26 mmol/L (22-29); Chloride 106 mmol/L (96-108); Creatinine Clr Calc Pharmacy 39.8; Estimated Glomerular Filt Rate 39; Glucose Random 103 mg/dL (60-115); Potassium 3.1 mmol/L (3.3-5.1); Sodium 141 mmol/L (135-145)
[2025-01-28 06:58] LABS: Magnesium 1.8 mg/dL (1.6-2.6)
[2025-01-28 07:03] LABS: B Type Natriuretic Peptide 1068 pg/mL (<100)
[2025-01-28] MEDS: amLODIPine Besylate 5 MG TABLET PO (08:43)
[2025-01-28] MEDS: Furosemide 40 MG/4 ML VIAL IVPUSH ×2 (08:43→17:23)
[2025-01-28] MEDS: Apixaban 2.5 MG TABLET PO ×2 (08:43→20:01)
[2025-01-28] MEDS: Sucralfate 1 GM TABLET PO ×3 (08:44→20:01)
[2025-01-28] MEDS: lisinopriL 40 MG TABLET PO (08:44)
[2025-01-28] MEDS: Atorvastatin Calcium 40 MG TABLET PO (08:44)
[2025-01-28] MEDS: 0.9 % Sodium Chloride Flush 3 ML SYRINGE IVFLUSH ×3 (08:44→20:04)
--- NOTE | 2025-01-28 13:19 | P.PNIM_ITS ---
Subjective Subjective Date of Service: 01/28/25 Interval History: seen and evaluated feels better denies fever and chills SOB improving , still has significant edema Review of Systems Review of Systems: Yes all other systems are reviewed and are negative Physical Exam 2 Vital Signs: Vital Signs: Last Vital Signs Temp 97.6 F 01/28/25 11:13 Pulse 66 01/28/25 11:13 Resp 20 01/28/25 11:13 BP 176/82 H 01/28/25 11:13 Pulse Ox 96 01/28/25 11:13 O2 Del Method Room Air 01/28/25 11:13 BMI result Body Mass Index 27.6 Const: Other: Constitutional : interactive, not in distress Cardiovascular : elevated JVP, +2 bilateral lower extremity edema Respiratory : bilateral chest movement, not in resp distress , basal crackles Gastrointestinal: soft, lax, Non tender Skin : Warm, Dry Neurological : Alert & oriented , No focal deficit Objective Data Active Medications Acetaminophen (Acetaminophen 325 Mg Tablet) 650 mg PO Q6H PRN PRN Reason: Pain, Mild 1-3,fever,headache Last Admin: 01/28/25 06:20 Dose: 650 mg Documented By: CEASAR Amlodipine Besylate (Amlodipine Besylate 5 Mg Tablet) 5 mg PO DAILY [facility]; Protocol Last Admin: 01/28/25 08:43 Dose: 5 mg Documented By: SAL Apixaban (Apixaban 2.5 Mg Tablet) 2.5 mg PO BID [facility] Last Admin: 01/28/25 08:43 Dose: 2.5 mg Documented By: SAL Atorvastatin Calcium (Atorvastatin Calcium 40 Mg Tablet) 40 mg PO DAILY [facility] Last Admin: 01/28/25 08:44 Dose: 40 mg Documented By: SAL Calcitriol (Calcitriol 0.25 Mcg Capsule) 0.25 mcg PO Q48H [facility] Last Admin: 01/27/25 08:36 Dose: 0.25 mcg Documented By: RADHA Calcium Carbonate (Calcium Carbonate 750 Mg Tab.Chew) 750 mg PO Q4H PRN PRN Reason: Heartburn Furosemide (Furosemide 40 Mg/4 Ml Vial) 40 mg IVPUSH BID@0900,1800 [facility]; Protocol Last Admin: 01/28/25 08:43 Dose: 40 mg Documented By: SAL Lisinopril (Lisinopril 40 Mg Tablet) 40 mg PO DAILY [facility]; Protocol Last Admin: 01/28/25 08:44 Dose: 40 mg Documented By: SAL Magnesium Hydroxide (Milk Of Magnesia 30 Ml Oral.Susp) 30 ml PO DAILY PRN PRN Reason: Constipation Melatonin (Melatonin 3 Mg Tablet) 6 mg PO BEDTIME PRN PRN Reason: Insomnia Omeprazole (Omeprazole 40 Mg Capsule.Dr) 40 mg PO BID@0630,1630 [facility] Last Admin: 01/28/25 06:19 Dose: 40 mg Documented By: CEASAR Ondansetron HCl (Ondansetron Hcl 4 Mg/2 Ml Vial) 4 mg IVPUSH Q8H PRN PRN Reason: Nausea and Vomiting Sodium Chloride (0.9 % Sodium Chloride Flush 3 Ml Syringe) 3 ml IVFLUSH QSHIFT [facility] Last Admin: 01/28/25 08:44 Dose: 3 ml Documented By: SAL Sucralfate (Sucralfate 1 Gm Tablet) 1 gm PO TID [facility] Last Admin: 01/28/25 08:44 Dose: 1 gm Documented By: SAL Labs 01/27/25 06:47 01/28/25 06:31 Labs: Laboratory Results - last 24 hr 01/28/25 06:31 Anion Gap 12 Estim Creat Clear Calc 39.8 Estimated GFR 39 Random Glucose 103 Calcium 9.3 Magnesium 1.8 B-Natriuretic Peptide 1068 H Assessment and Plan (1) Congestive heart failure: Status: Acute (2) Hypomagnesemia: Status: Acute (3) Acute hypokalemia: Status: Acute (4) Acute on chronic heart failure: Status: Acute (5) Uncontrolled hypertension: Status: Acute Plan A 74-year-old male with a past medical history of HTN, HLD, dm, CAD, CKD, CHF-35-40%, AFib on Eliquis, anemia, hyperparathyroidism, osteoarthritis presentig with worsening SOB and chest discomfort for 3 days. Acute on chronic diastolic CHF exacerbation BNP elevated, Edema in LE CXR showing increase markings Echo from 12/05 showing EF 52% with hypokinetic wall motion continue IV Lasix bid compression stocking I\O O2 as needed, wean off Acute hypokalemia replacement given, follow K Acute hypomagnesemia replacement given, follow Mg CDK3, stable follow uncontrolled HTN Lisinopril , Amlodipine Add Carvedilol and monitor DMII SSI, Lantus, POC PErsistent Afib rate controlled continue Eliquis GERD Omeprazole DVT PPx Eliquis The patient will need overnight stay for treatment of CHF exacerbation Quality Stroke Does the patient have a stroke diagnosis?: No VTE Prior VTE?: No VTE Risk Level:: Medical - moderate - high VTE Device Contraindication: Treatment Not Indicated VTE Drug Contraindication: N/A - Med Ordered
[2025-01-28] MEDS: Potassium Chloride ER 20 MEQ TAB.ER.PRT 40 MEQ PO (14:38)
[2025-01-28] MEDS: carvediloL 6.25 MG TABLET PO ×2 (14:39→20:01)
[2025-01-29 03:40] VITALS: BP 182/72; PULSE 62; RESP 18; TEMP 36; O2SAT 95
[2025-01-29] MEDS: Omeprazole 40 MG CAPSULE.DR PO (05:24)
[2025-01-29 07:26] VITALS: BP 159/82; PULSE 60; RESP 18; TEMP 36.4; O2SAT 96
[2025-01-29 07:59] LABS: Anion Gap 13 (12-20); Blood Urea Nitrogen 22 mg/dL (9-16); Calcium 9.2 mg/dL (8.4-10.2); Carbon Dioxide 26 mmol/L (22-29); Chloride 104 mmol/L (96-108); Creatinine Clr Calc Pharmacy 39.8; Estimated Glomerular Filt Rate 39; Glucose Random 93 mg/dL (60-115); Potassium 3.4 mmol/L (3.3-5.1); Sodium 140 mmol/L (135-145)
[2025-01-29 08:42] VITALS: BP 159/82
[2025-01-29] MEDS: amLODIPine Besylate 5 MG TABLET PO (08:42)
[2025-01-29] MEDS: lisinopriL 40 MG TABLET PO (08:42)
[2025-01-29] MEDS: Sucralfate 1 GM TABLET PO (08:42)
[2025-01-29] MEDS: calcitrioL 0.25 MCG CAPSULE PO (08:42)
[2025-01-29 08:43] VITALS: BP 159/82
[2025-01-29] MEDS: Apixaban 2.5 MG TABLET PO (08:43)
[2025-01-29] MEDS: Atorvastatin Calcium 40 MG TABLET PO (08:43)
[2025-01-29] MEDS: carvediloL 6.25 MG TABLET PO (08:43)
--- NOTE | 2025-01-29 10:47 | MHC.CM.PN ---
PT MEDICALLY CLEARED FOR DC HOME SELF-CARE, CM WILL [facility]SP[facility]
--- NOTE | 2025-01-29 12:00 | P.DS_ITS ---
DS: Providers Provider Date of Service: 01/29/25 Date of admission: 01/26/25 13:37 Date of discharge: 01/29/25 Primary care physician: Blanca Anderson MD DS: Diagnosis Discharge Diagnosis (1) Congestive heart failure: Status: Acute (2) Hypomagnesemia: Status: Acute (3) Acute hypokalemia: Status: Acute (4) Acute on chronic heart failure: Status: Acute (5) Uncontrolled hypertension: Status: Acute DS: Summary Hospital Course Hospital Course: Admission note HPI A 74-year-old male with a past medical history of HTN, HLD, dm, CAD, CKD, CHF-35-40%, AFib on Eliquis, anemia, hyperparathyroidism, osteoarthritis presentig with worsening SOB and chest discomfort for 3 days. He went to PCP few days ago for increase swelling in lower extremities as he forgets to take his pills sometimes. No chest pain, palpitations, nausea, vomiting, diarrhea or urinary symptoms. reports heaviness in chest with ambulation and when laying down in bed. no fever or chills. He lives by himself and has [facility] visiting. In ED CXR showed increase markings with elevated BNP and low K and Mg. admitted for further work up and management. Hospital course # Acute on chronic diastolic CHF exacerbation with BNP elevated, Edema in lower extremities which is not only due to cardiar reason per previous cardiology eval. CXR showing increase markings with Echo from 12/05 showing EF 52% with hypokinetic wall motion. Treated with IV Lasix bid and compression stocking with fair response. To discharge home on Lasix 40 mg daily and compression stocking. # Acute hypokalemia. replacement given, resolved. # Acute hypomagnesemia. replacement given, resolved. # Uncontrolled HTN. continue Lisinopril , Start Amlodipine and add Carvedilol with fair control. continue to follow as outpatient. Discharge plan Cut down salt in your diet, decrease daily fluid intake Keep legs elevated and wear compression stocking Start Amlodipine and Carvedilol as prescribed Increase Lasix to 40 mg daily Follow up with PCP as outpatient Time Attestation Discharge Coordination Time (in mins): 38 Quality: Safe Use of Opioids Does Pt have an Active Cancer Diagnosis on the Problem List?: No Quality: Stroke Does the patient have a stroke diagnosis?: No Physical Exam Vital Signs: Vital Signs: Last Vital Signs Temp 97.6 F 01/29/25 07:26 Pulse 60 01/29/25 07:26 Resp 18 01/29/25 07:26 BP 159/82 H 01/29/25 08:43 Pulse Ox 96 01/29/25 07:26 O2 Del Method Room Air 01/29/25 07:26 BMI result Body Mass Index 27.6 Const: Other: Constitutional : interactive, not in distress Cardiovascular : no JVP, +1 bilateral lower extremity edema Respiratory : bilateral chest movement, not in resp distress , basal crackles Gastrointestinal: soft, lax, Non tender Skin : Warm, Dry Neurological : Alert & oriented , No focal deficit DS: Data Data Completed and Pending Completed studies during hospitalization [Text1]: Procedures Dilation of Cystic Duct with Intraluminal Device, Via Natural or Artificial Opening Endoscopic (11/12/24) Drainage of Peritoneal Cavity with Drainage Device, Percutaneous Approach (11/12/24) Drainage of Peritoneal Cavity, Percutaneous Approach (11/12/24) Drainage of Right Pleural Cavity, Percutaneous Approach (12/04/24) Excision of Duodenum, Via Natural or Artificial Opening Endoscopic, Diagnostic (12/19/22) Excision of Esophagogastric Junction, Via Natural or Artificial Opening Endoscopic, Diagnostic (12/19/22) Excision of Stomach, Pylorus, Via Natural or Artificial Opening Endoscopic, Diagnostic (12/04/24) Inspection of Upper Intestinal Tract, Via Natural or Artificial Opening Endoscopic (11/12/24) Resection of Gallbladder, Percutaneous Endoscopic Approach (10/20/24) Transfusion of Nonautologous Red Blood Cells into Peripheral Vein, Percutaneous Approach (12/04/24) Labs on day of discharge: Laboratory Results - last 24 hr 01/29/25 06:32 Hold Purple Top SEE NOTE Sodium 140 Potassium 3.4 Chloride 104 Carbon Dioxide 26 Anion Gap 13 BUN 22 H Creatinine 1.75 H Estim Creat Clear Calc 39.8 Estimated GFR 39 Random Glucose 93 Calcium 9.2 Imaging Chest x-ray: Radiologist's impression: ITS Impressions Chest X-Ray 01/26/25 12:04 IMPRESSION: Mild interstitial edema and bilateral pleural effusions, moderate volume on the right and small to moderate volume on the left. Overall no gross change. Electronically signed by: Brennan Robbins MD 01/26/2025 01:09 PM EDT Discharge Plan Discharge Anticipated Discharge Date/Time: 01/29/25 11:26 Patient Disposition: Home Health Service Discharge Diagnosis: Uncontrolled Hypertension Heart failure exacerbation Referrals: [facility] [Outside] - 1 Week Referral Note: RESUMPTION OF CARE Blanca Crowley MD [Primary Care Provider] - 1 Week Discharge Medications: New amlodipine 5 mg Tablet 5 mg PO DAILY Qty: 60 0RF Protocol: Hold for SBP< HOLD for SBP < : 90 furosemide 40 mg tablet 40 mg PO QAM Qty: 90 0RF carvedilol 6.25 mg Tablet 6.25 mg PO BID Qty: 60 0RF Protocol: Hold for SBP/HR < HOLD for SBP < : 90 HOLD for HR < : 60 Continued (DME) blood sugar diagnostic Strip See Rx Instructions .ROUTE BID Qty: 50 11RF Rx Instructions: Use 1 test strip once a day ferrous sulfate 325 mg (65 mg iron) tablet 325 mg PO BID Qty: 60 11RF atorvastatin 40 mg tablet 40 mg PO DAILY Eliquis 2.5 mg tablet 2.5 mg PO BID omeprazole 40 mg Capsule,Delayed Release(Dr/Ec) 40 mg PO BID@0630,1630 Qty: 60 0RF lisinopril 40 mg tablet 40 mg PO DAILY sucralfate 1 gram tablet 1 g PO TID (DME) blood-glucose meter Misc See Rx Instructions PO BID Qty: 1 Rx Instructions: As directed (DME) lancets Misc See Rx Instructions .ROUTE BID Qty: 100 Rx Instructions: As directed calcitriol 0.25 mcg capsule 0.25 mcg PO Q2D Qty: 14 6RF Discontinued furosemide 20 mg Tablet 20 mg PO DAILY Qty: 30 0RF Protocol: Hold for SBP< HOLD for SBP < : 90 Discharge Orders: Discharge Order (Routine); Ordered 01/29/25 Ordered By: Jim Grey Diet: Advance to usual diet Activity on Discharge: As tolerated Stand Alone Forms: Patient Portal Discharge page Print Language: Belgian Care Plan Goals: Cut down salt in your diet, decrease daily fluid intake Keep legs elevated and wear compression stocking Start Amlodipine and Carvedilol as prescribed Increase Lasix to 40 mg daily Follow up with PCP as outpatient Health Concerns: Elevated blood pressure Edema in loiwer extremities Plan of Treatment: Lasix Amlodipine and Carvedilol Follow up with PCP and cardiology Assessment: as above
== END 2025-01-29 13:24 | disposition home health service (06) | DRG 291 ==
LOC: HO.ED 13:11 → HO.EDOVER 13:45 → HO.IMC 14:25
PROVIDERS: Physician Assistant Medical; Admitting Provider Student in an Organized Health Care Education/Training Program; Emergency Provider Emergency Medicine; PCP Student in an Organized Health Care Education/Training Program; Visit Provider Student in an Organized Health Care Education/Training Program
DX: I13.0 Hypertensive heart and chronic kidney disease with heart failure and stage 1 through stage 4 chronic kidney disease, or unspecified chronic kidney disease (principal); I50.33 Acute on chronic diastolic (congestive) heart failure; I48.19 Other persistent atrial fibrillation; N18.30 Chronic kidney disease, stage 3 unspecified; E11.22 Type 2 diabetes mellitus with diabetic chronic kidney disease; E87.6 Hypokalemia; I25.10 Atherosclerotic heart disease of native coronary artery without angina pectoris; E83.42 Hypomagnesemia; Z20.822 Contact with and (suspected) exposure to COVID-19; Z87.891 Personal history of nicotine dependence; Z79.01 Long term (current) use of anticoagulants; Z79.899 Other long term (current) drug therapy
CPT/HCPCS: 0241U; 36415; 71046; 80048; 80053; 82803; 83735; 83880; 84484; 85025; 85610; 93005; 99285; J1938; J3475; J3480

== ENCOUNTER → 2025-01-26 11:56 | Outpatient (BNV) | payer OTHER, SELFPAY | PROVIDERS: Admitting Provider Student in an Organized Health Care Education/Training Program; Emergency Provider Emergency Medicine; Visit Provider Radiology Diagnostic Radiology | DX: J90 Pleural effusion, not elsewhere classified (principal); J98.4 Other disorders of lung | CPT/HCPCS: 71046 ==

== ENCOUNTER → 2025-01-26 11:56 | Outpatient (BNV) | payer OTHER, SELFPAY | PROVIDERS: Admitting Provider Student in an Organized Health Care Education/Training Program; Emergency Provider Emergency Medicine; Visit Provider Internal Medicine Cardiovascular Disease | DX: I48.91 Unspecified atrial fibrillation (principal); I51.7 Cardiomegaly | CPT/HCPCS: 93010 ==

== ENCOUNTER → 2025-01-26 13:37 | Outpatient (BNV) | payer OTHER, SELFPAY | PROVIDERS: Admitting Provider Student in an Organized Health Care Education/Training Program; Emergency Provider Emergency Medicine; Visit Provider Student in an Organized Health Care Education/Training Program | DX: I50.9 Heart failure, unspecified (principal); E83.42 Hypomagnesemia; E87.6 Hypokalemia; I10 Essential (primary) hypertension | CPT/HCPCS: 99232; 99239 ==

== ENCOUNTER 2025-03-04 11:11 | Outpatient (REF) | payer OTHER, SELFPAY ==
--- OUTSIDE RECORDS SUMMARY | 2025-03-04 12:17 | XMS_ITS | Encounter Summary ---
Author Organization [employer] Address [address] [place] [address] Care Team Providers Care Integrated Marketing Specialist Name Role Phone Jarad Lundy MD Primary Care Provider [phone] Encounter Details Date Type Department Care Team (Late st Contact Info) Description 12/17/[address] [facility] - Main Lab [address] [facility] [place] [address] Jarad Lundy MD [address] [place] [id number] Anemia, unspecified; Chronic kidney disease, stage 3a (CMS/HCC V24, CMS/HCC V28) Social History Tobacco Use Types Packs/Day Years [...] on file documented as of this encounter Plan of Treatment Not on file documented as of this encounter Procedures Procedure Name Priority Date/Time Associated Diagnosis Comments CBC WITH AUTO DIFFERENTIAL Routine 12/17/2024 4:55 AM EDT Anemia, unspecified Chronic kidney disease, stage 3a (CMS/HCC V24, CMS/HCC V28) CBC AND DIFFERENTIAL Routine 12/17/2024 4:55 AM EDT Anemia, unspecified Chronic kidney disease, stage 3a (CMS/HCC V24, CMS/HCC V28) BASIC METABOLIC PANEL Routine 12/17/2024 4:55 AM EDT Anemia, unspecified Chronic kidney disease, stage 3a (CMS/HCC V24, CMS/HCC V28) documented in this encounter Results * (ABNORMAL) CBC auto differential (12/17/2024 4:55 AM EDT) WBC 11.0(H) 4.8 - 10.8 K/mcL LAB HEMETOLOGY METHOD 12/17/2024 9:04 AM [facility] RBC 3.60(L) 4.50 - 5.50 M/mcL LAB HEMETOLOGY METHOD 12/17/2024 9:04 AM [facility] Hemoglobin 10.7(L) 13.5 - 17.5 g/dL LAB HEMETOLOGY METHOD 12/17/2024 9:04 AM [facility] Hematocrit 32.4(L) 42.0 - 54.0 % LAB HEMETOLOGY METHOD 12/17/2024 9:04 AM [facility] MCV 90.0 79.0 - 98.0 FL LAB HEMETOLOGY METHOD 12/17/2024 9:04 AM [facility] MCH 29.7 27.0 - 32.0 pcg LAB HEMETOLOGY METHOD 12/17/2024 9:04 AM [facility] MCHC 33.0 32.0 - 37.0 g/dL LAB HEMETOLOGY METHOD 12/17/2024 9:04 AM [facility] RDW 16.6(H) 11.0 - 15.0 % LAB HEMETOLOGY METHOD 12/17/2024 9:04 AM [facility] Platelets 335 130 - 400 K/mcL LAB HEMETOLOGY METHOD 12/17/2024 9:04 AM [facility] MPV 9.1 7.0 - 11.0 FL LAB HEMETOLOGY METHOD 12/17/2024 9:04 AM [facility] NRBC 0.0 <1.0 % LAB HEMETOLOGY METHOD 12/17/2024 9:04 AM [facility] NRBC Absolute 0.00 <0.10 K/mcL LAB HEMETOLOGY METHOD 12/17/2024 9:04 AM [facility] Neutrophils Relative 76.7 % LAB HEMETOLOGY METHOD 12/17/2024 9:04 AM [facility] Lymphocytes Relative 16.2 % LAB HEMETOLOGY METHOD 12/17/2024 9:04 AM [facility] Monocytes Relative 5.4 % LAB HEMETOLOGY METHOD 12/17/2024 9:04 AM [facility] Eosinophils Relative 0.8 % LAB HEMETOLOGY METHOD 12/17/2024 9:04 AM [facility] Basophils Relative 0.2 % LAB HEMETOLOGY METHOD 12/17/2024 9:04 AM [facility] Immature Granulocytes Relative 0.7 % LAB HEMETOLOGY METHOD 12/17/2024 9:04 AM [facility] Neutrophils Absolute 8.40(H) 1.50 - 7.00 K/mcL LAB HEMETOLOGY METHOD 12/17/2024 9:04 AM [facility] Lymphocytes Absolute 1.78 1.00 - 5.00 K/mcL LAB HEMETOLOGY METHOD 12/17/2024 9:04 AM [facility] Monocytes Absolute 0.59 0.20 - 1.00 K/mcL LAB HEMETOLOGY METHOD 12/17/2024 9:04 AM [facility] Eosinophils Absolute 0.09 0.00 - 0.50 K/mcL LAB HEMETOLOGY METHOD 12/17/2024 9:04 AM [facility] Basophils Absolute 0.02 0.00 - 0.20 K/mcL LAB HEMETOLOGY METHOD 12/17/2024 9:04 AM [facility] Immature Granulocytes Absolute 0.08(H) 0.00 - 0.03 K/mcL LAB HEMETOLOGY METHOD 12/17/2024 9:04 AM [facility] Blood Venous blood specimen / Unknown Venipuncture / Unknown 12/17/2024 4:55 AM EDT 12/17/2024 8:39 AM EDT us Jarad Lundy MD LAB BLOOD ORDERABLES Final Resu lt [facility] [address] [place] [address], [place] [phone] * (ABNORMAL) Basic metabolic panel (12/17/2024 4:55 AM EDT) Sodium 141 133 - 145 mmol/L LAB CHEMISTRY METHOD 12/17/2024 9:22 AM [facility] Potassium 3.5 3.5 - 5.5 mmol/L LAB CHEMISTRY METHOD 12/17/2024 9:22 AM [facility] Chloride 107 96 - 110 mmol/L LAB CHEMISTRY METHOD 12/17/2024 9:22 AM [facility] CO2 27 21 - 32 mmol/L LAB CHEMISTRY METHOD 12/17/2024 9:22 AM [facility] Anion Gap 7 3 - 11 LAB CHEMISTRY METHOD 12/17/2024 9:22 AM [facility] Glucose 61(L) 70 - 100 mg/dL LAB CHEMISTRY METHOD 12/17/2024 9:22 AM [facility] BUN 26(H) 5 - 25 mg/dL LAB CHEMISTRY METHOD 12/17/2024 9:22 AM [facility] Creatinine 1.61(H) 0.70 - 1.30 mg/dL LAB CHEMISTRY METHOD 12/17/2024 9:22 AM [facility] eGFR 45(L) >=60 mL/min/1. 73m2 LAB CHEMISTRY METHOD 12/17/2024 9:22 AM EDT [facility] Comment:Calculation based on the Chronic Kidney Disease Epidemiology Collaboration (CKD-EPI) equation refit without adjustment for race. BUN/Creatinine Ratio 16.1 LAB CHEMISTRY METHOD 12/17/2024 9:22 AM EDT [facility] Calcium 8.2(L) 8.5 - 10.5 mg/dL LAB CHEMISTRY METHOD 12/17/2024 9:22 AM EDT [facility] Blood Venous blood specimen / Unknown Venipuncture / Unknown 12/17/2024 4:55 AM EDT 12/17/2024 8:39 AM EDT us Jarad Lundy MD LAB BLOOD ORDERABLES Final Resu lt [facility] [address] [place] [address], documented in this encounter Visit Diagnoses Diagnosis Anemia, unspecified Chronic kidney disease, stage 3a (CMS/HCC V24, CMS/HCC V28) documented in this encounter Care Teams Integrated Marketing Specialist Relationship Specialty Start Date End Date Jarad Lundy MD [address] [place] [address] PCP - General Hospitalist Medicine 12/17/24 documented as of this encounter
--- OUTSIDE RECORDS SUMMARY | 2025-03-04 12:17 | XMS_ITS | Encounter Summary ---
Author Organization [facility] Address [address] [place] [address] Phone Care Team Providers Care Jeeper Operator Name Role Phone Arielle Godinez Primary Care Provider Unavailabl e Encounter Details Date Type Department Care Team (Late st Contact Info) Description 01/03/2024 Office Communication [facility] [address] [place] [address] Soy Meléndez MD [address] [facility] [address] [place] [id number] Social History Tobacco Use Types Packs/Day Years [...] on filedocumented in this encounter Care Teams Jeeper Operator Relationship Specialty Start Date End Date Arielle Godinez PCP - General Family Medicine 08/10/21 documented as of this encounter
--- OUTSIDE RECORDS SUMMARY | 2025-03-04 12:17 | XMS_ITS | Encounter Summary ---
Author Organization [employer] Address [address] [place] [address] Care Team Providers Care Livestock Breeder Name Role Phone Cynthia Marshall NP Primary Care Provider [phone] Encounter Details Date Type Department Care Team ([facility] st Contact Info) Description 09/26/2024 Orders Only [facility]IC[facility] [address] [place], [place] [phone] Cynthia Marshall NP [address] [place] [address] Stage 3b chronic kidney disease (CMS/HCC) Social [...] Care Team (Late st Contact Info) Description 03/10/2025 10:30 AM EDT Clinical Support [facility] [address] [place] [address] documented as of this encounter Visit Diagnoses Diagnosis Stage 3b chronic kidney disease (CMS/HCC) documented in this encounter Additional Health Concerns Assessment Noted Time PHQ-9 Depression Total Score: 0 01/21/20 24 11:17 AM EDT documented as of this encounter Care Teams Livestock Breeder Relationship Specialty Start Date End Date Cynthia Marshall NP [address] [place] [address] PCP - General Family Medicine 09/10/23 [place] 01/01/25 documented as of this encounter
[2025-03-04 13:14] LABS: MANUAL DIFF FLAG NO
[2025-03-04 13:32] LABS: Hematocrit 32.8 % (42.0-52.0); Hemoglobin 9.9 g/dl (14.0-18.0); Imm Gran Abs Auto 0.02 X10*3/uL (0.00-0.03); Imm Gran Pct Auto 0.3 % (0.0-0.4); Lymphocytes Absolute Auto 0.9 X10*3/uL (1.2-4.9); Mean Corpuscular HGB Conc 30.2 g/dl (31.0-36.0); Mean Corpuscular Hemoglobin 27.1 pg (27.0-33.0); Mean Corpuscular Volume 89.9 fL (80.0-98.0); NRBC Abs Auto 0.000 X10*3/uL (0.0-0.012); NRBC Pct Auto 0.0 /100WBC (0.0-0.2); Platelet Count 249 X10*3/uL (160-400); Red Blood Count 3.65 X10*6/uL (4.60-5.80); White Blood Count 6.7 X10*3/uL (4.8-10.8)
[2025-03-04 13:53] LABS: Anion Gap 11 (12-20); Blood Urea Nitrogen 33 mg/dL (9-16); Calcium 9.0 mg/dL (8.4-10.2); Carbon Dioxide 26 mmol/L (22-29); Chloride 108 mmol/L (96-108); Estimated Glomerular Filt Rate 35; Magnesium 1.6 mg/dL (1.6-2.6); Potassium 4.5 mmol/L (3.3-5.1); Sodium 140 mmol/L (135-145)
[2025-03-04 13:59] LABS: Alanine Aminotransferase 20 U/L (0-40); Albumin Level 3.3 g/dL (3.5-5.0); Alkaline Phosphatase 219 U/L (39-117); Anion Gap 10 (12-20); Aspartate Amino Transferase 29 U/L (5-37); Blood Urea Nitrogen 33 mg/dL (9-16); Calcium 8.9 mg/dL (8.4-10.2); Carbon Dioxide 26 mmol/L (22-29); Chloride 108 mmol/L (96-108); Estimated Glomerular Filt Rate 34; Potassium 4.3 mmol/L (3.3-5.1); Sodium 140 mmol/L (135-145); Total Protein 7.2 g/dL (6.5-8.0)
== END 2025-03-04 11:12 | disposition home or self-care (01) ==
LOC: HO.HHCL 11:11
PROVIDERS: Internal Medicine; PCP Nurse Practitioner Family; Referring Provider Internal Medicine Nephrology; Visit Provider Nurse Practitioner Family
DX: N25.81 Secondary hyperparathyroidism of renal origin (principal); I13.0 Hypertensive heart and chronic kidney disease with heart failure and stage 1 through stage 4 chronic kidney disease, or unspecified chronic kidney disease; N18.4 Chronic kidney disease, stage 4 (severe); I50.42 Chronic combined systolic (congestive) and diastolic (congestive) heart failure; D63.1 Anemia in chronic kidney disease; E87.6 Hypokalemia; E83.42 Hypomagnesemia; K29.51 Unspecified chronic gastritis with bleeding
CPT/HCPCS: 36415; 80048; 80053; 83735; 85025

== ENCOUNTER 2025-03-11 09:10 | Outpatient (AMB) | payer OTHER, SELFPAY ==
--- NOTE | 2025-03-11 09:33 | HO.NEPHOV ---
Vital Signs 03/11/25 09:34 Height 5 ft 8 in Weight 194 lb 8 oz BMI 29.6 BP 140/82 H Blood Pressure Location Rt brachial Position Sitting Pulse 83 Pulse Source Pulse Oximeter Pulse Oximetry (%) 92 Oxygen Delivery Method Room Air Intake Visit Reasons: [facility] Shoe Shanker Required: No Accompanied by: Self / Same As Patient Allergies No Known Allergies (No Known Allergies*) Allergy (Verified 03/11/25 09:34) HPI Comments Details: 74-year-old male with diabetes mellitus, hypertension, hyperlipidemia, chronic kidney disease, atrial fibrillation and on Eliquis for anticoagulation. He denies retinopathy or neuropathy but is known to have proteinuria. He has been aware of his CKD for some time. His echocardiogram showed cardiomyopathy . He is on lisinopril and lasix. He has no shortness of breath at rest or with activity. He is no heart palpitations, PND, orthopnea or edema. No chest discomfort, dizziness, presyncope, syncope, falls. He is taking all meds as directed. He has been on Farxiga. His blood pressure has been at goal. He denies sinusitis, epistaxis, joint swelling, photosensitivity, hematuria, nephrolithiasis, pedal edema or orthostatic symptoms. Has no history of any malignancy. He claims to be compliant with his medications. His recent serum creatinine had been stable. He had multiple hospital visits in last few months with HF [facility] Medical History (Updated 03/11/25 @ 09:44 by Edi Guerin MD) Anemia in chronic kidney disease (CKD) Hypertension Uncontrolled hypertension Congestive heart failure CKD (chronic kidney disease) CHF (congestive heart failure) CKD (chronic kidney disease) stage 4, GFR 15-29 ml/min Obesity (BMI 30.0-34.9) Cardiomyopathy Stroke Chronic atrial fibrillation CKD (chronic kidney disease) Former smoker Depression Diabetes High cholesterol Surgical History History of aneurysm History of shoulder surgery Family History Father No problems noted. Mother Diabetes Hypertension Cancer Son No problems noted. Son No problems noted. Son No problems noted. Daughter No problems noted. Daughter No problems noted. Social History Household Members: None Household Members Other:: Housing: Apartment Are you a primary director of career resources to a significant other at home: No Do you presently have visiting nurse or other home services: Yes Unable to assess alcohol history related to: Unknown Alcohol intake: never Patient Tobacco Use Status: Former Tobacco user Substance Use Type: Marijuana service: No Current occupational status: disabled Review of Systems Const All systems reviewed & are unremarkable except as noted in HPI and below Physical Exam Vital Signs: Last Vital Signs Pulse 83 03/11/25 09:34 BP 140/82 H 03/11/25 09:34 Pulse Ox 92 03/11/25 09:34 Oxygen Delivery Method Room Air 03/11/25 09:34 BMI result Body Mass Index 29.6 Const General: comfortable and no acute distress Orientation/consciousness: patient oriented x3 HEENT Head: Yes normocephalic Mouth: Normal oral and palatal mucosa present Eyes EOM: EOMs intact bilaterally Neck Neck: Yes supple Resp Auscultation: clear to auscultation bilaterally Cardio Jugular venous distension: no JVD Rate: regular rate GI Palpation (GI): Soft to palpation Auscultation: normal bowel sounds General: Yes no CVA tenderness Back/Spine/Pelvis Back: no CVA tenderness Skin General skin exam: no rashes or lesions noted Neuro General: patient oriented x3 and moves all extremities Extrem General: Yes edema Results Reviewed Nephrology Results: Hgb, (14.0-18.0) 9.9 g/dl L 03/04/25 WBC, (4.8-10.8) 6.7 X10*3/uL 03/04/25 Plt Count, (160-400) 249 X10*3/uL 03/04/25 Sodium, (135-145) 140 mmol/L 03/04/25 Potassium, (3.3-5.1) 4.3 mmol/L 03/04/25 Chloride, (96-108) 108 mmol/L 03/04/25 Carbon Dioxide, (22-29) 26 mmol/L 03/04/25 BUN, (9-16) 33 mg/dL H 03/04/25 Creatinine, (0.5-1.4) 1.93 mg/dL H 03/04/25 Calcium, (8.4-10.2) 8.9 mg/dL 07/23/25 PTH Intact, (8.7-77.1) 251.2 pg/mL H 01/16/25 Renal US 11/08/23 Assessment & Plan Assessment & Plan (1) Secondary hyperparathyroidism (of renal origin): Code(s): N25.81 - Secondary hyperparathyroidism of renal origin Category: Medical (2) CKD stage 3b, GFR 30-44 ml/min: Code(s): N18.32 - Chronic kidney disease, stage 3b Category: Medical (3) Hypertension: Code(s): I10 - Essential (primary) hypertension Category: Medical Qualifiers: Hypertension type: unspecified Qualified Code(s): I10 - Essential (primary) hypertension Plan Ethan has 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 He is proteinuric. He is on RAQUEL-inhibitor. He has history of heart failure. He has a diabetic. He needs to be on Farxiga. His serum creatinine is currently stable. He is tolerating calcitriol. We have to back off Amlodipine if his edema worsens. Answered all questions. Follow-up labs ordered and F/U appointment given Orders: Orders Complete Blood Count Auto Diff 1 Month I10 - Essential (primary) hypertension, N18.32 - Chronic kidney disease, stage 3b, N25.81 - Secondary hyperparathyroidism of renal origin Electrolytes 1 Month I10 - Essential (primary) hypertension, N18.32 - Chronic kidney disease, stage 3b, N25.81 - Secondary hyperparathyroidism of renal origin Creatinine 1 Month I10 - Essential (primary) hypertension, N18.32 - Chronic kidney disease, stage 3b, N25.81 - Secondary hyperparathyroidism of renal origin Calcium 1 Month I10 - Essential (primary) hypertension, N18.32 - Chronic kidney disease, stage 3b, N25.81 - Secondary hyperparathyroidism of renal origin Vitamin D 25-OH Total 1 Month I10 - Essential (primary) hypertension, N18.32 - Chronic kidney disease, stage 3b, N25.81 - Secondary hyperparathyroidism of renal origin Ferritin 1 Month I10 - Essential (primary) hypertension, N18.32 - Chronic kidney disease, stage 3b, N25.81 - Secondary hyperparathyroidism of renal origin Phosphorus 1 Month I10 - Essential (primary) hypertension, N18.32 - Chronic kidney disease, stage 3b, N25.81 - Secondary hyperparathyroidism of renal origin Protein Creatinine Ratio, Ur 1 Month I10 - Essential (primary) hypertension, N18.32 - Chronic kidney disease, stage 3b, N25.81 - Secondary hyperparathyroidism of renal origin Blood Urea Nitrogen 1 Month I10 - Essential (primary) hypertension, N18.32 - Chronic kidney disease, stage 3b, N25.81 - Secondary hyperparathyroidism of renal origin Parathyroid Hormone Intact 1 Month I10 - Essential (primary) hypertension, N18.32 - Chronic kidney disease, stage 3b, N25.81 - Secondary hyperparathyroidism of renal origin IRON PROFILE 1 Month I10 - Essential (primary) hypertension, N18.32 - Chronic kidney disease, stage 3b, N25.81 - Secondary hyperparathyroidism of renal origin Coding Level of Care Code Est Pt Level 4 (98657) Diagnoses Secondary hyperparathyroidism (of renal origin) N25.81 CKD stage 3b, GFR 30-44 ml/min N18.32 Essential hypertension I10 Hypertension type: unspecified
[2025-03-11 09:34] VITALS: BP 140/82; PULSE 83; O2SAT 92; BMI 29.6
--- OUTSIDE RECORDS SUMMARY | 2025-03-11 09:39 | XMS_ITS | Encounter Summary ---
Author Organization [employer] Address [address] [place] [address] Care Team Providers Care Project Manager Retail Name Role Phone Cynthia Marshall NP Primary Care Provider [phone] Encounter Details Date Type Department Care Team ([facility] st Contact Info) Description 09/26/2024 Orders Only [facility] [address] [place], [place] [phone] Cynthia Marshall NP [address] [place] [address] Stage 3b chronic kidney disease (CMS/HCC) Social [...] Care Team (Late st Contact Info) Description 03/13/2025 9:30 AM EDT Clinical Support [facility] [address] [place] [address] documented as of this encounter Visit Diagnoses Diagnosis Stage 3b chronic kidney disease (CMS/HCC) documented in this encounter Additional Health Concerns Assessment Noted Time PHQ-9 Depression Total Score: 0 01/21/20 24 11:17 AM EDT documented as of this encounter Care Teams Project Manager Retail Relationship Specialty Start Date End Date Cynthia Marshall NP [address] [place] [address] PCP - General Family Medicine 09/10/23 [place] 01/01/25 documented as of this encounter
--- OUTSIDE RECORDS SUMMARY | 2025-03-11 09:39 | XMS_ITS | Encounter Summary ---
Author Organization [employer] Address [address] [place] [address] Care Team Providers Care Inside Sales Specialist Name Role Phone Jarad Lundy MD Primary Care Provider [phone] Encounter Details Date Type Department Care Team (Late st Contact Info) Description 12/17/2024 Lab Requisition [facility] - Main Lab [address] [facility] [place] [address] Jarad Lundy MD [address] [place] [phone] Anemia, unspecified; Chronic kidney disease, stage 3a [...] K/mcL LAB HEMETOLOGY METHOD 12/17/2024 9:04 AM [facility] RBC 3.60(L) 4.50 - 5.50 M/mcL LAB HEMETOLOGY METHOD 12/17/2024 9:04 AM [facility] Hemoglobin 10.7(L) 13.5 - 17.5 g/dL LAB HEMETOLOGY METHOD 12/17/2024 9:04 AM [facility] Hematocrit 32.4(L) 42.0 - 54.0 % LAB HEMETOLOGY METHOD 12/17/2024 9:04 AM [facility] MCV 90.0 79.0 - 98.0 FL LAB HEMETOLOGY METHOD 12/17/2024 9:04 AM [facility] MCH 29.7 27.0 - 32.0 pcg LAB HEMETOLOGY METHOD 12/17/2024 9:04 AM [facility] MCHC 33.0 32.0 - 37.0 g/dL LAB HEMETOLOGY METHOD 12/17/2024 9:04 AM [facility] RDW 16.6(H) 11.0 - 15.0 % LAB HEMETOLOGY METHOD 12/17/2024 9:04 AM [facility] Platelets 335 130 - 400 K/mcL LAB HEMETOLOGY METHOD 12/17/2024 9:04 AM [facility] MPV 9.1 7.0 - 11.0 FL LAB HEMETOLOGY METHOD 12/17/2024 9:04 AM [facility] NRBC 0.0 <1.0 % LAB HEMETOLOGY METHOD 12/17/2024 9:04 AM [facility] NRBC Absolute 0.00 <0.10 K/mcL LAB HEMETOLOGY METHOD 12/17/2024 9:04 AM [facility] Neutrophils Relative 76.7 % LAB HEMETOLOGY METHOD 12/17/2024 9:04 AM [facility] Lymphocytes Relative 16.2 % LAB HEMETOLOGY METHOD 12/17/2024 9:04 AM [facility] Monocytes Relative 5.4 % LAB HEMETOLOGY METHOD 12/17/2024 9:04 AM [facility] Eosinophils Relative 0.8 % LAB HEMETOLOGY METHOD 12/17/2024 9:04 AM [facility] Basophils Relative 0.2 % LAB HEMETOLOGY METHOD 12/17/2024 9:04 AM [facility] Immature Granulocytes Relative 0.7 % LAB HEMETOLOGY METHOD 12/17/2024 9:04 AM [facility] Neutrophils Absolute 8.40(H) 1.50 - 7.00 K/mcL LAB HEMETOLOGY METHOD 12/17/2024 9:04 AM [facility] Lymphocytes Absolute 1.78 1.00 - 5.00 K/mcL LAB HEMETOLOGY METHOD 12/17/2024 9:04 AM [facility] Monocytes Absolute 0.59 0.20 - 1.00 K/mcL LAB HEMETOLOGY METHOD 12/17/2024 9:04 AM [facility] Eosinophils Absolute 0.09 0.00 - 0.50 K/mcL LAB HEMETOLOGY METHOD 12/17/2024 9:04 AM [facility] Basophils Absolute 0.02 0.00 - 0.20 K/mcL LAB HEMETOLOGY METHOD 12/17/2024 9:04 AM [facility] Immature Granulocytes Absolute 0.08(H) 0.00 - 0.03 K/mcL LAB HEMETOLOGY METHOD 12/17/2024 9:04 AM [facility] Blood Venous blood specimen / Unknown Venipuncture / Unknown 12/17/2024 4:55 AM EDT 12/17/2024 8:39 AM EDT us Jarad Lundy MD LAB BLOOD ORDERABLES Final Resu lt [facility] [address] [place] [address], [place] [phone] * (ABNORMAL) Basic metabolic panel (12/17/2024 4:55 AM EDT) Sodium 141 133 - 145 mmol/L LAB CHEMISTRY METHOD 12/17/2024 9:22 AM [facility] Potassium 3.5 3.5 - 5.5 mmol/L LAB CHEMISTRY METHOD 12/17/2024 9:22 AM [facility] Chloride 107 96 - 110 mmol/L LAB CHEMISTRY METHOD 12/17/2024 9:22 AM [facility] CO2 27 21 - 32 mmol/L LAB CHEMISTRY METHOD 12/17/2024 9:22 AM [facility] Anion Gap 7 3 - 11 LAB CHEMISTRY METHOD 12/17/2024 9:22 AM [facility] Glucose 61(L) 70 - 100 mg/dL LAB CHEMISTRY METHOD 12/17/2024 9:22 AM [facility] BUN 26(H) 5 - 25 mg/dL LAB CHEMISTRY METHOD 12/17/2024 9:22 AM [facility] Creatinine 1.61(H) 0.70 - 1.30 mg/dL LAB CHEMISTRY METHOD 12/17/2024 9:22 AM [facility] eGFR 45(L) >=60 mL/min/1. 73m2 LAB CHEMISTRY METHOD 12/17/2024 9:22 AM EDT [facility] Comment:Calculation based on the Chronic Kidney Disease Epidemiology Collaboration (CKD-EPI) equation refit without adjustment for race. BUN/Creatinine Ratio 16.1 LAB CHEMISTRY METHOD 12/17/2024 9:22 AM EDT [facility] Calcium 8.2(L) 8.5 - 10.5 mg/dL LAB CHEMISTRY METHOD 12/17/2024 9:22 AM EDT [facility] Blood Venous blood specimen / Unknown Venipuncture / Unknown 12/17/2024 4:55 AM EDT 12/17/2024 8:39 AM EDT us Jarad Lundy MD LAB BLOOD ORDERABLES Final Resu lt [facility] [address] [place] [address], documented in this encounter Visit Diagnoses Diagnosis Anemia, unspecified Chronic kidney disease, stage 3a (CMS/HCC V24, CMS/HCC V28) documented in this encounter Care Teams Inside Sales Specialist Relationship Specialty Start Date End Date Jarad Lundy MD [address] [place] [phone] PCP - General Hospitalist Medicine 12/17/24 documented as of this encounter
--- OUTSIDE RECORDS SUMMARY | 2025-03-11 09:39 | XMS_ITS | Encounter Summary ---
Author Organization [facility] Address [address] [place] [address] Phone Care Team Providers Care Food Service Assistant Name Role Phone Arielle Godinez Primary Care Provider Unavailabl e Encounter Details Date Type Department Care Team (Late st Contact Info) Description 01/03/2024 Office Communication [facility] [address] [place] [address] Soy Meléndez MD [address] [facility] [address] [place] [address] Social History Tobacco Use Types Packs/Day Years [...] on filedocumented in this encounter Care Teams Food Service Assistant Relationship Specialty Start Date End Date Arielle Godinez PCP - General Family Medicine 08/10/21 documented as of this encounter
== END 2025-03-11 09:54 | disposition home or self-care (01) ==
LOC: HO.HKA 09:11
PROVIDERS: PCP Nurse Practitioner Family; Visit Provider Internal Medicine Nephrology
DX: N25.81 Secondary hyperparathyroidism of renal origin (principal); N18.32 Chronic kidney disease, stage 3b; I10 Essential (primary) hypertension
CPT/HCPCS: 99214

== ENCOUNTER → 2025-03-11 09:10 | Outpatient (BNVA) | payer OTHER, SELFPAY | PROVIDERS: PCP Nurse Practitioner Family; Visit Provider Internal Medicine Nephrology | DX: I12.9 Hypertensive chronic kidney disease with stage 1 through stage 4 chronic kidney disease, or unspecified chronic kidney disease (principal); N18.32 Chronic kidney disease, stage 3b; N25.81 Secondary hyperparathyroidism of renal origin | CPT/HCPCS: 99212 ==

== ENCOUNTER 2025-03-19 14:23 | Emergency (ER) | payer OTHER, SELFPAY ==
--- OUTSIDE RECORDS SUMMARY | 2025-03-13 09:30 | XMS_ITS | Encounter Summary ---
Author Organization [employer] Address [address] [place] [address] Care Team Providers Care Traffic Superintendent Name Role Phone Cynthia Marshall NP Primary Care Provider [phone] Reason for Visit * Reason Comments Oxygen Walk Test Encounter Details Date Type Department Care Team (Latest Contact Info) Description 03/13/2025 9:30 AM EDT Clinical Support [facility] [address] [place] [address] Shoshana Chaudhary RN CHF (congestive heart failure), NYHA class II, acute on chronic, combined (CMS/HCC) [I50.43] Social History Tobacco Use Types Packs/Day Years Used Date Smoking Tobacco: Former Cigarettes Passive Smoke Exposure: Past Smokeless Tobacco: Former Alcohol Use Standard Drinks/Week Comments Never 0 (1 standard drink = 0.6 oz pur e alcohol) Depression Answer Date Recorded Patient Health Questionnaire-9 Score 3 01/21/2025 Patient Health Questionnaire-9 Score 3 01/21/2025 Last PHQ-9: Questionnaire Data Not on file 0 01/21/2025 Housing Stability Answer Date Recorded What is your housing situation today? I have raya simpson 01/21/[address] you li ve. Do you have problems with any of the following? I am not sure 01/21/2025 Food Insecurity Answer Date Recorded Within the past 12 months, y ou worried that your food would run out before you got money to buy more: Sometimes True 2024 Within the past 12 months,th e food you bought just didn't last and you didn't have enough money to get more: Sometimes True 01/21/2025 Transportation Answer Date Recorded In the past 12 months, has l ack of transportation kept you from medical appts, meetings, work or from getting things needed for daily living? Yes, it has kept me from medical appointments or getting medications.;Yes, it has kept me from non-medical meetings, work, or getting things that I need 01/21/2025 Utilities Answer Date Recorded In the past 12 months, has t he electric, gas, oil or water company threatened to shut off services in your home? No 01/21/2025 Depression Answer Date Recorded Patient Health Questionnaire-2 Score 0 01/21/2025 Internet Access Answer Date Recorded Internet Access Q1 No 01/21/2025 Internet Access Q2 I do not want or need it 01/11 Sex and Gender Information Value Date Recorded Sex Assigned at Male 06/12/2022 10:38 AM EDT Legal Sex Male 10:38 AM EDT Gender Identity Male 06/12/2022 10:38 AM EDT Sexual Orientation Straight 06/12/2022 10 :38 AM EDT documented as of this encounter Last Filed Vital Signs Vital Sign Reading Time Taken Comments Blood Pressure 155/60 03/13/2025 9:22 AM EDT Pulse 65 03/13/2025 9:22 AM EDT Temperature 36.6 C (97.8 F) 03/13/2025 9:22 AM EDT Respiratory Rate 16 03/13/2025 9:22 AM EDT Oxygen Saturation 96% 03/13/2025 9:22 AM EDT Inhaled Oxygen Concentration - - Weight 88 kg (194 lb) 03/13/2025 9:22 AM EDT Height 172.7 cm (5' 8 ) 03/13/2025 9:22 AM EDT Body Mass Index 29.5 03/13/2025 9:22 AM EDT documented in this encounter Progress Notes * Shoshana Chaudhary RN - 03/13/2025 9:30 AM EDT Ethan Jonnie is here for a Oxygen walk test with team nurses. Pt daughter was present during the visit who assisted with comoran translations. Pt denied any chest pain or sob. Pt is currently not onany supplemental oxygen. ACTIVITY OXYGEN SOURCE SPO2 Sitting Room Air 96 % Ambulating Room Air 82 % Sitting 2 liters of Oxygen via nasal cannula 99 % Ambulating 2 liters of Oxygen via nasal cannula 95 % Pt started with sitting without any supplemental oxygen . SPO2 at that time was 96%. Pt placed on 2liters via nasal cannula and remained sitting. SPO2 increased to 99%. Pt then walked while not on supplemental oxygen on room air. At the 3 minute spenser pt requested to stop due to feeling sob and SPO2 dropped to 82% and was unable to complete the full 5 minutes. Supplemental oxygen with 2 liters via nasal cannula was reintroduced while sitting then SPO2 increased to 96% then pt walked for anotherminute with supplemental oxygen which decreased to 95%. Daughter and pt advised we'll send a message to PCP for review and call them back to let them know what they recommend. They verbalized understanding and message sent to PCP for review. PCP reviewed and reccommended supplemental oxygen in the home at this time. Message sent to our PA specialist to generate the script. Shoshana Chaudhary RN documented in this encounter Plan of Treatment Not on file documented as of this encounter Visit Diagnoses Diagnosis CHF (congestive heart failure), NYHA class II, acute on chronic, combined (CMS/HCC) [I50.43] documented in this encounter Additional Health Concerns Assessment Noted Time PHQ-9 Depression Total Score: 3 01/22/20 25 10:47 AM EDT documented as of this encounter Care Teams Traffic Superintendent Relationship Specialty Start Date End Date Cynthia Marshall NP [address] [place] [phone] PCP - General Family Medicine 09/10/23 Katelyn-Luis 01/01/25 documented as of this encounter
--- NOTE | ~2025-03-19 | XR_ITS ---
EXAMINATION: XR CHEST 2 VIEWS HISTORY: short of breath COMPARISON: Comparison is made with the prior examination dated 01/26/2025. FINDINGS: PA and lateral views of the chest are submitted. There is a small to moderate right pleural effusion which appears larger than on the prior study. A small left pleural effusion is not significantly changed in size. Mild pulmonary vascular prominence is again noted. A nodular density in the left upper lobe lung zone is seen to represent a skin lesion on chest CT dated 12/06/2024. There is no pneumothorax. The heart remains enlarged. There is degenerative disc disease of the spine. XR/XR chest 2V IMPRESSION: Cardiomegaly and mild pulmonary vascular congestion. Small to moderate right pleural effusion which is larger than on the prior study. A small left pleural effusion is unchanged. Electronically signed by: Cornelio Flores MD 03/19/2025 03:56 PM EDT
[2025-03-19 14:40] VITALS: BP 148/63; BP 162/84; PULSE 62; PULSE 90; RESP 18; TEMP 36.6; O2SAT 94; O2SAT 99; BMI 26.6
[2025-03-19 14:50] VITALS: BP 148/63; PULSE 62; RESP 18; TEMP 36.6; O2SAT 94
--- NOTE | 2025-03-19 14:50 | ED.SOB ---
HPI - SOB/Dyspnea General Chief Complaint: Dyspnea Stated Complaint: INCR WT GAIN,BLE WEEPING/PITTING EDEMA,H/O CHF Time Seen by Provider: 03/19/25 14:47 Source: patient, EMS and blood tester fowl (cymraes) Mode of arrival: EMS Limitations: language barrier (cymraes speaking) History of Present Illness ED Provider: MARTINA BAUM PA-C HPI Narrative: 74 year old male with pmhx significant for CKD, HTN, CHF, cardiomyopathy, CVA, chronic afib on eliquis, diabetes, HLD presents to the ED today via EMS for for evaluation of increasing shortness of breath x24 hours. Reports feeling short of breath both at rest and on exertion. Admits to increased swelling to both legs. His VNA today call EMS to have patient transported to ED for further eval. Per EMS, patient has not been compliant with is medications x1 week as reported by his VNA. Denies headache, dizziness, chest pain, palpitaions. Related Data Home Medications ?Medication ?Instructions ?Recorded ?Confirmed blood-glucose meter #1 ea 05/14/20 01/14/24 lancets #100 ea 05/14/20 01/14/24 atorvastatin 40 mg tablet 40 mg PO DAILY 12/19/22 01/26/25 lisinopril 40 mg tablet 40 mg PO DAILY 10/20/24 01/26/25 apixaban 2.5 mg tablet (Eliquis) 2.5 mg PO BID 12/05/24 01/26/25 sucralfate 1 gram tablet 1 g PO TID GASTRITIS 01/26/25 01/26/25 Previous Rx's ?Medication ?Instructions ?Recorded blood sugar diagnostic #50 ea 01/24/21 calcitriol 0.25 mcg capsule 0.25 mcg PO Q2D #14 caps 10/17/24 omeprazole 40 mg capsule,delayed 40 mg PO BID@0630,1630 #60 caps 12/16/24 release ferrous sulfate 325 mg (65 mg 325 mg PO BID #60 tabs 01/26/25 iron) tablet amlodipine 5 mg tablet 5 mg PO DAILY #60 tabs 01/29/25 carvedilol 6.25 mg tablet 6.25 mg PO BID #60 tabs 01/29/25 furosemide 40 mg tablet 40 mg PO QAM #90 tabs 01/29/25 Allergies Allergy/AdvReac Type Severity Reaction Status Date / Time No Known Allergies (No Known Allergy Verified 03/19/25 14:42 Allergies*) Review of Systems Review of Systems: Yes all other systems are reviewed and are negative [facility] Past Medical History Attestation statement: The following information was validated with the patient. Source: old records reviewed and nursing notes reviewed Medical History Anemia in chronic kidney disease (CKD) Hypertension Uncontrolled hypertension Congestive heart failure CKD (chronic kidney disease) CHF (congestive heart failure) CKD (chronic kidney disease) stage 4, GFR 15-29 ml/min Obesity (BMI 30.0-34.9) Cardiomyopathy Stroke Chronic atrial fibrillation CKD (chronic kidney disease) Former smoker Depression Diabetes High cholesterol Surgical History History of aneurysm History of shoulder surgery Family History Family History Father No problems noted. Mother Diabetes Hypertension Cancer Son No problems noted. Son No problems noted. Son No problems noted. Daughter No problems noted. Daughter No problems noted. Social History Social History Household Members: None Household Members Other:: Housing: Apartment Are you a primary personal care assistant to a significant other at home: No Do you presently have visiting nurse or other home services: Yes Unable to assess alcohol history related to: Unknown Alcohol intake: never Patient Tobacco Use Status: Former Tobacco user Smoked in Last 30 Days: No Use of substances other than those prescribed or required for medical reasons: No Substance Use Type: Marijuana Advance Directives: No Advance Directives Information Provided: No Do you have a plan to hurt others: No Plan service: No Current occupational status: disabled Physical Exam Vital Signs: Vital Signs: Last Vital Signs Temp 97.9 F 03/19/25 14:50 Pulse 62 03/19/25 14:50 Resp 18 03/19/25 14:50 BP 148/63 H 03/19/25 14:50 Pulse Ox 94 03/19/25 14:50 O2 Del Method Room Air 03/19/25 14:50 BMI result Body Mass Index 26.6 hypertensive, vitals are otherwise wnl General: chronically ill appearing, in NAD Skin: Warm, dry, intact. No rashes or lesions. Head: Normocephalic, atraumatic. EENT: Hearing is intact b/l. Conjunctiva clear. Sclera is anicteric. PERRLA. EOM intact. Moist mucous membranes.? Neck: Supple without LAD Cardiac: Chest wall symmetric. RRR. no JVD. Lungs: Normal respiratory effort without accessory muscle use. diminished breath sounds throughout. Abdomen: Soft, non-tender, non-distended. No rebound tenderness or guarding. Positive BS x4. Back: No midline spinous or paraspinal tenderness. No step off deformity. Ext: 3+ pitting edema to b/l LEs with chronic venous stasis ulcers, no overlying areas of infection Neuro: AOx3. Normal speech. Strength 5/5 intact throughout. Course Course Course Narrative: 1600 -- CBC without leukocytosis or left shift. Chronic anemia, H&H down trending when compared to priors however above transfusion threshold. Chemistry without acute electrolyte abnormality requiring intervention. Acute on chronic kidney injury with BUN of 41, creatinine 2.11. Random glucose 137, no anion gap. Liver function around baseline. Troponin WNL at 21.1. BNP elevated to 2118. His EKG shows atrial fibrillation, rate controlled, no acute ischemic changes or ST elevations. His chest x-ray demonstrates cardiomegaly, mild pulmonary vascular congestion, small to moderate right pleural effusion (larger when compared to chest x-ray 2 months ago), and a small left pleural effusion (unchanged from priors). > concern for CHF exacerbation. Will obtain ambulatory O2. He is satting 94% at rest. Lasix ordered. Anticipate admission to medicine for further management. 1630 -- Patient requires inpatient admission for acute CHF exacerbation - upon discussion with patient, he declines stating he ?will not stay in the hospital?. Patient is choosing to leave AMA and with informed refusal. Patient was advised reasoning for hospital admission (management of acute CHF exacerbation), and provided with a full explanation of the rationale. The risks of leaving were explained to the patient and include, but not are not limited to, worsening of known or currently on known conditions, permanent disability, and from undiagnosed or untreated conditions. The patient has the capacity to make this decision and has the capacity to understand the clinical situation and my explanation of the risks of refusing. The patient voluntarily accepts these risks. Patient was given the opportunity to ask questions and reconsider. He states that his daughter will be transporting him home today. Medical Decision Making Medical Decision Making [facility] Narrative: 74 year old male with pmhx significant for CKD, HTN, CHF, cardiomyopathy, CVA, chronic afib on eliquis, diabetes, HLD presents to the ED today via EMS for for evaluation of increasing shortness of breath x24 hours. He is hypertensive. Satting 94% on room air at rest. No noted respiratory distress. Breath sounds diminished throughout. There is 3+ pitting edema to lower extremities with chronic venous stasis ulcers. No overlying infection. Differential diagnosis includes anemia, electrolyte abnormality, CHF, arrhythmia, pneumonia, pleural effusion, dependent edema, chronic venous stasis, viral syndrome Plan for labs, ekg, viral serology, cxr, ambulatory o2, re-evaluation. Differential Diagnosis Differential Diagnoses: The differential diagnosis associated with the presentation includes as above. Admission/Observation Consideration of admission/observation: Escalation of care including admission/observation considered I discussed admission for CHF exacerbation with patient - he declines and states he would like to leave AMA. Lab Data [facility] Lab Attestation statement: I reviewed the patient's lab results. as above. 03/19/25 15:24 03/19/25 15:24 Labs: Lab Results 03/19/25 Range/Units 15:24 WBC 5.6 (4.8-10.8) X10*3/uL RBC 3.29 L (4.60-5.80) X10*6/uL Hgb 8.9 L (14.0-18.0) g/dl Hct 28.6 L (42.0-52.0) % MCV 86.9 (80.0-98.0) fL MCH 27.1 (27.0-33.0) pg MCHC 31.1 (31.0-36.0) g/dl RDW 17.2 H (11.0-16.0) % Plt Count 176 D (160-400) X10*3/uL MPV 8.4 L (9.4-12.4) fL Immature Gran % (Auto) 0.4 (0.0-0.4) % Neut % (Auto) 76.9 H (45-73) % Lymph % (Auto) 14.1 L (20-40) % [place] % (Auto) 7.0 (2-11) % Eos % (Auto) 1.4 (0-4) % Baso % (Auto) 0.2 (0-2) % Lymph # (Auto) 0.8 L (1.2-4.9) X10*3/uL [place] # (Auto) 0.4 (0.1-1.2) X10*3/uL Eos # (Auto) 0.1 (0.0-0.4) X10*3/uL Baso # (Auto) 0.0 (0.0-0.2) X10*3/uL Abs Immat Gran (auto) 0.02 (0.00-0.03) X10*3/uL Absolute Neuts (auto) 4.3 (2.0-8.3) x10*3/uL Absolute Nucleated RBC 0.000 (0.0-0.012) X10*3/uL Nucleated RBC % (auto) 0.0 (0.0-0.2) /100WBC Sodium 143 (135-145) mmol/L Potassium 3.4 D (3.3-5.1) mmol/L Chloride 109 H (96-108) mmol/L Carbon Dioxide 25 (22-29) mmol/L Anion Gap 12 (12-20) BUN 41 H (9-16) mg/dL Creatinine 2.11 H (0.5-1.4) mg/dL Estim Creat Clear Calc 30.6 Estimated GFR 31 Random Glucose 137 H (60-115) mg/dL Calcium 8.3 L D (8.4-10.2) mg/dL Magnesium 1.8 (1.6-2.6) mg/dL Total Bilirubin 0.9 (0.0-1.0) mg/dL AST 29 (5-37) U/L ALT 26 (0-40) U/L Alkaline Phosphatase 161 H (39-117) U/L Troponin I High Sens 21.1 D (<3.5-35.0) ng/L B-Natriuretic Peptide 2118 H (<100) pg/mL Total Protein 6.5 (6.5-8.0) g/dL Albumin 3.1 L (3.5-5.0) g/dL Lipase 17 (8-78) U/L Influenza Type A (PCR) NEGATIVE (Negative) Influenza Type B (PCR) NEGATIVE (Negative) RSV RNA Qual (PCR) NEGATIVE (Negative) SARS-CoV-2 RNA (RT-PCR) NEGATIVE (Negative) Independent Interpretation I performed an independent interpretation of an: EKG and Plain X-Ray Interpretation: ekg showing afib with rate of 67 bpm, qt 422, no acute ischemic changes or st elevations cxr showing pulmonary edema Radiology Impression Discussion of test interpretation with radiology: I have reviewed the radiologist's reading. Radiologist Impression: Date of Service: 03/19/25 Procedure(s): ECG 12 lead EKG Accession Number(s): [id number] cc: ~ Test Reason : SOB Blood Pressure : */* mmHG Vent. Rate : 67 BPM Atrial Rate : * BPM P-R Int : * ms QRS Dur : 100 ms QT Int : 422 ms P-R-T Axes : * 16 188 degrees QTcB Int : 445 ms Atrial fibrillation Minimal voltage criteria for LVH, may be normal variant ( Karlo product ) ST & T wave abnormality, consider inferolateral ischemia Abnormal ECG When compared with ECG of 26-Jan-2025 12:06, Previous ECG has undetermined rhythm, needs review Referred By: Martina Baum Electronically Signed By: Date of Service: 03/19/25 Procedure(s): XR chest 2V Accession Number(s): [id number] cc: Physician,Unknown ; Martina Baum~ EXAMINATION: XR CHEST 2 VIEWS HISTORY: short of breath COMPARISON: Comparison is made with the prior examination dated 01/26/2025. FINDINGS: PA and lateral views of the chest are submitted. There is a small to moderate right pleural effusion which appears larger than on the prior study. A small left pleural effusion is not significantly changed in size. Mild pulmonary vascular prominence is again noted. A nodular density in the left upper lobe lung zone is seen to represent a skin lesion on chest CT dated 12/06/2024. There is no pneumothorax. The heart remains enlarged. There is degenerative disc disease of the spine. XR/XR chest 2V IMPRESSION: Cardiomegaly and mild pulmonary vascular congestion. Small to moderate right pleural effusion which is larger than on the prior study. A small left pleural effusion is unchanged. Electronically signed by: Cornelio Flores MD 03/19/2025 03:56 PM EDT RP Independent Historian Clinical information obtained from an independent historian. History obtained from or confirmed by: EMS External Record Review External record reviewed: Inpatient record, Office record, Outpatient record, Prior outpatient labs, Prior outpatient radiology, Primary care record and Outside ED record Prescription Management I considered prescription management with: Other (lasix) Chronic Conditions Patient?s care impacted by: Other (CHF, afib, CKD) Social Determinants Patient?s care significantly limited by Social Determinants of Health including: Other Social Determinant of Health Critical Care Time Critical Care Time Critical Care Time: No Discharge Plan Discharge Clinical Impression: Acute exacerbation of CHF (congestive heart failure), KELSEY (acute kidney injury) Patient Disposition: Left Against Medical Advice Instructions: Heart Failure (ED), Pulmonary Edema (ED), Acute Kidney Injury (DC) Additional Instructions: You presented to the ED today for evaluation of shortness of breath. Your workup today is concerning for heart failure. It is my medical recommendation that you are admitted to the hospital for further treatment. You are declining at this time and would like to leave against medical advise without further work up or treatment. Risks of leaving AMA were discussed with you including but not limited to worsening symptoms and even . You verbalize understanding and are choosing to leave against our advice. Follow up with your outpatient providers this week. You are welcome to return at any time. Prescriptions: No Action (DME) blood sugar diagnostic Strip See Rx Instructions .ROUTE BID Qty: 50 11RF Rx Instructions: Use 1 test strip once a day ferrous sulfate 325 mg (65 mg iron) tablet 325 mg PO BID Qty: 60 11RF atorvastatin 40 mg tablet 40 mg PO DAILY Eliquis 2.5 mg tablet 2.5 mg PO BID omeprazole 40 mg Capsule,Delayed Release(Dr/Ec) 40 mg PO BID@0630,1630 Qty: 60 0RF lisinopril 40 mg tablet 40 mg PO DAILY sucralfate 1 gram tablet 1 g PO TID amlodipine 5 mg Tablet 5 mg PO DAILY Qty: 60 0RF Protocol: Hold for SBP< HOLD for SBP < : 90 furosemide 40 mg tablet 40 mg PO QAM Qty: 90 0RF carvedilol 6.25 mg Tablet 6.25 mg PO BID Qty: 60 0RF Protocol: Hold for SBP/HR < HOLD for SBP < : 90 HOLD for HR < : 60 (DME) blood-glucose meter Misc See Rx Instructions PO BID Qty: 1 Rx Instructions: As directed (DME) lancets Misc See Rx Instructions .ROUTE BID Qty: 100 Rx Instructions: As directed calcitriol 0.25 mcg capsule 0.25 mcg PO Q2D Qty: 14 6RF Referrals: Physician,Unknown J [Primary Care Provider, Medical] Stand Alone Forms: Against Medical Advice Interventions: ED Discharge Assessment Last Done: 03/19/25 16:54 Discharge Date/Time: 03/19/25 16:55 Print Language: Thai
--- NOTE | 2025-03-19 14:56 | ECG_ITS ---
Test Reason : SOB Blood Pressure : */* mmHG Vent. Rate : 67 BPM Atrial Rate : * BPM P-R Int : * ms QRS Dur : 100 ms QT Int : 422 ms P-R-T Axes : * 16 188 degrees QTcB Int : 445 ms Atrial fibrillation Minimal voltage criteria for LVH, may be normal variant ( Karlo product ) ST & T wave abnormality, consider inferolateral ischemia Abnormal ECG When compared with ECG of 26-Jan-2025 12:06, No significant changes seen Referred By: Martina Baum Electronically Signed By: AHMET KAPADIA
[2025-03-19 15:32] LABS: MANUAL DIFF FLAG NO
[2025-03-19 15:33] LABS: Hematocrit 28.6 % (42.0-52.0); Hemoglobin 8.9 g/dl (14.0-18.0); Imm Gran Abs Auto 0.02 X10*3/uL (0.00-0.03); Imm Gran Pct Auto 0.4 % (0.0-0.4); Lymphocytes Absolute Auto 0.8 X10*3/uL (1.2-4.9); Mean Corpuscular HGB Conc 31.1 g/dl (31.0-36.0); Mean Corpuscular Hemoglobin 27.1 pg (27.0-33.0); Mean Corpuscular Volume 86.9 fL (80.0-98.0); NRBC Abs Auto 0.000 X10*3/uL (0.0-0.012); NRBC Pct Auto 0.0 /100WBC (0.0-0.2); Platelet Count 176 X10*3/uL (160-400); Red Blood Count 3.29 X10*6/uL (4.60-5.80); White Blood Count 5.6 X10*3/uL (4.8-10.8)
--- OUTSIDE RECORDS SUMMARY | 2025-03-19 15:36 | XMS_ITS | Encounter Summary ---
Author Organization [employer] Address [address] [place] [address] Care Team Providers Care Transit Mix Operator Name Role Phone Jarad Lundy MD Primary Care Provider [phone] Encounter Details Date Type Department Care Team (Late st Contact Info) Description 12/17/2024 Lab Requisition [facility] - Main Lab [address] [facility] [place] [address] Jarad Lundy MD [address] [place] [id number] Anemia, unspecified; Chronic kidney disease, stage 3a [...] K/mcL LAB HEMETOLOGY METHOD 12/17/2024 9:04 AM [facility] RBC 3.60(L) 4.50 - 5.50 M/mcL LAB HEMETOLOGY METHOD 12/17/2024 9:04 AM [facility] Hemoglobin 10.7(L) 13.5 - 17.5 g/dL LAB HEMETOLOGY METHOD 12/17/2024 9:04 AM [facility] Hematocrit 32.4(L) 42.0 - 54.0 % LAB HEMETOLOGY METHOD 12/17/2024 9:04 AM [facility] MCV 90.0 79.0 - 98.0 FL LAB HEMETOLOGY METHOD 12/17/2024 9:04 AM [facility] MCH 29.7 27.0 - 32.0 pcg LAB HEMETOLOGY METHOD 12/17/2024 9:04 AM [facility] MCHC 33.0 32.0 - 37.0 g/dL LAB HEMETOLOGY METHOD 12/17/2024 9:04 AM [facility] RDW 16.6(H) 11.0 - 15.0 % LAB HEMETOLOGY METHOD 12/17/2024 9:04 AM [facility] Platelets 335 130 - 400 K/mcL LAB HEMETOLOGY METHOD 12/17/2024 9:04 AM [facility] MPV 9.1 7.0 - 11.0 FL LAB HEMETOLOGY METHOD 12/17/2024 9:04 AM [facility] NRBC 0.0 <1.0 % LAB HEMETOLOGY METHOD 12/17/2024 9:04 AM [facility] NRBC Absolute 0.00 <0.10 K/mcL LAB HEMETOLOGY METHOD 12/17/2024 9:04 AM [facility] Neutrophils Relative 76.7 % LAB HEMETOLOGY METHOD 12/17/2024 9:04 AM [facility] Lymphocytes Relative 16.2 % LAB HEMETOLOGY METHOD 12/17/2024 9:04 AM [facility] Monocytes Relative 5.4 % LAB HEMETOLOGY METHOD 12/17/2024 9:04 AM [facility] Eosinophils Relative 0.8 % LAB HEMETOLOGY METHOD 12/17/2024 9:04 AM [facility] Basophils Relative 0.2 % LAB HEMETOLOGY METHOD 12/17/2024 9:04 AM [facility] Immature Granulocytes Relative 0.7 % LAB HEMETOLOGY METHOD 12/17/2024 9:04 AM [facility] Neutrophils Absolute 8.40(H) 1.50 - 7.00 K/mcL LAB HEMETOLOGY METHOD 12/17/2024 9:04 AM [facility] Lymphocytes Absolute 1.78 1.00 - 5.00 K/mcL LAB HEMETOLOGY METHOD 12/17/2024 9:04 AM [facility] Monocytes Absolute 0.59 0.20 - 1.00 K/mcL LAB HEMETOLOGY METHOD 12/17/2024 9:04 AM [facility] Eosinophils Absolute 0.09 0.00 - 0.50 K/mcL LAB HEMETOLOGY METHOD 12/17/2024 9:04 AM [facility] Basophils Absolute 0.02 0.00 - 0.20 K/mcL LAB HEMETOLOGY METHOD 12/17/2024 9:04 AM [facility] Immature Granulocytes Absolute 0.08(H) 0.00 - 0.03 K/mcL LAB HEMETOLOGY METHOD 12/17/2024 9:04 AM [facility] Blood Venous blood specimen / Unknown Venipuncture / Unknown 12/17/2024 4:55 AM EDT 12/17/2024 8:39 AM EDT us Jarad Lundy MD LAB BLOOD ORDERABLES Final Resu lt [facility] [address] [place] [address], [place] [phone] * (ABNORMAL) Basic metabolic panel (12/17/2024 4:55 AM EDT) Sodium 141 133 - 145 mmol/L LAB CHEMISTRY METHOD 12/17/2024 9:22 AM [facility] Potassium 3.5 3.5 - 5.5 mmol/L LAB CHEMISTRY METHOD 12/17/2024 9:22 AM [facility] Chloride 107 96 - 110 mmol/L LAB CHEMISTRY METHOD 12/17/2024 9:22 AM [facility] CO2 27 21 - 32 mmol/L LAB CHEMISTRY METHOD 12/17/2024 9:22 AM [facility] Anion Gap 7 3 - 11 LAB CHEMISTRY METHOD 12/17/2024 9:22 AM [facility] Glucose 61(L) 70 - 100 mg/dL LAB CHEMISTRY METHOD 12/17/2024 9:22 AM [facility] BUN 26(H) 5 - 25 mg/dL LAB CHEMISTRY METHOD 12/17/2024 9:22 AM [facility] Creatinine 1.61(H) 0.70 - 1.30 mg/dL LAB CHEMISTRY METHOD 12/17/2024 9:22 AM [facility] eGFR 45(L) >=60 mL/min/1. 73m2 LAB CHEMISTRY METHOD 12/17/2024 9:22 AM EDT [facility] Comment:Calculation based on the Chronic Kidney Disease Epidemiology Collaboration (CKD-EPI) equation refit without adjustment for race. BUN/Creatinine Ratio 16.1 LAB CHEMISTRY METHOD 12/17/2024 9:22 AM EDT [facility] Calcium 8.2(L) 8.5 - 10.5 mg/dL LAB CHEMISTRY METHOD 12/17/2024 9:22 AM EDT [facility] Blood Venous blood specimen / Unknown Venipuncture / Unknown 12/17/2024 4:55 AM EDT 12/17/2024 8:39 AM EDT us Jarad Lundy MD LAB BLOOD ORDERABLES Final Resu lt [facility] [address] [place] [address], documented in this encounter Visit Diagnoses Diagnosis Anemia, unspecified Chronic kidney disease, stage 3a (CMS/HCC V24, CMS/HCC V28) documented in this encounter Care Teams Transit Mix Operator Relationship Specialty Start Date End Date Jarad Lundy MD [address] [place] [id number] PCP - General Hospitalist Medicine 12/17/24 documented as of this encounter
--- OUTSIDE RECORDS SUMMARY | 2025-03-19 15:36 | XMS_ITS | Encounter Summary ---
Author Organization [facility] Address [address] [place] [address] Phone Care Team Providers Care Water Conservation Specialist Name Role Phone Arielle Godinez Primary Care Provider Unavailabl e Encounter Details Date Type Department Care Team (Late st Contact Info) Description 01/03/2024 Office Communication [facility] [address] [place] [address] Soy Meléndez MD [address] [facility] [address] [place] [address] Social History Tobacco Use Types [...] on filedocumented in this encounter Care Teams Water Conservation Specialist Relationship Specialty Start Date End Date Arielle Godinez PCP - General Family Medicine 08/10/21 documented as of this encounter
[2025-03-19 15:51] LABS: Alanine Aminotransferase 26 U/L (0-40); Albumin Level 3.1 g/dL (3.5-5.0); Alkaline Phosphatase 161 U/L (39-117); Anion Gap 12 (12-20); Aspartate Amino Transferase 29 U/L (5-37); Blood Urea Nitrogen 41 mg/dL (9-16); Calcium 8.3 mg/dL (8.4-10.2); Carbon Dioxide 25 mmol/L (22-29); Chloride 109 mmol/L (96-108); Creatinine Clr Calc Pharmacy 30.6; Estimated Glomerular Filt Rate 31; Lipase 17 U/L (8-78); Magnesium 1.8 mg/dL (1.6-2.6); Potassium 3.4 mmol/L (3.3-5.1); Sodium 143 mmol/L (135-145); Total Protein 6.5 g/dL (6.5-8.0)
[2025-03-19 15:57] LABS: B Type Natriuretic Peptide 2118 pg/mL (<100)
[2025-03-19 15:58] LABS: Troponin-I High Sensitivity 21.1 ng/L (<3.5-35.0)
[2025-03-19 16:10] LABS: Resp Syncy Virus RNA Qual PCR NEGATIVE (Negative); SARS COV2 PCR INHOUSE NEGATIVE (Negative)
[2025-03-19 16:54] VITALS: BP 00/00; PULSE 0; RESP 0; TEMP -17.7; TEMP 0; O2SAT 0
== END 2025-03-19 16:55 | disposition left against medical advice (07) ==
PROVIDERS: Physician Assistant Medical; Emergency Provider Emergency Medicine
DX: I13.0 Hypertensive heart and chronic kidney disease with heart failure and stage 1 through stage 4 chronic kidney disease, or unspecified chronic kidney disease (principal); R60.9 Edema, unspecified; I50.9 Heart failure, unspecified; N18.4 Chronic kidney disease, stage 4 (severe); N17.9 Acute kidney failure, unspecified; Z53.29 Procedure and treatment not carried out because of patient's decision for other reasons
CPT/HCPCS: 71046; 80053; 83690; 83735; 83880; 84484; 85025; 87637; 93005; 99283; 99285

== ENCOUNTER → 2025-03-19 14:56 | Outpatient (BNV) | payer OTHER, SELFPAY | PROVIDERS: Emergency Provider Emergency Medicine; Visit Provider Radiology Diagnostic Radiology | DX: J90 Pleural effusion, not elsewhere classified (principal) | CPT/HCPCS: 71046 ==

== ENCOUNTER → 2025-03-19 14:56 | Outpatient (BNV) | payer OTHER, SELFPAY | PROVIDERS: Emergency Provider Emergency Medicine; Visit Provider Internal Medicine | DX: I48.91 Unspecified atrial fibrillation (principal) | CPT/HCPCS: 93010 ==

== ENCOUNTER 2025-03-23 13:21 | Inpatient (IN) | payer OTHER, SELFPAY ==
--- OUTSIDE RECORDS SUMMARY | 2025-03-13 09:30 | XMS_ITS | Encounter Summary ---
Author Organization [employer] Address [address] [place] [address] Care Team Providers Care Respiratory Care Instructor Name Role Phone Cynthia Marshall NP Primary Care Provider [phone] Reason for Visit * Reason Comments Oxygen Walk Test Encounter Details Date Type Department Care Team (Latest Contact Info) Description 03/13/2025 9:30 AM EDT Clinical Support [facility] [address] [place] [address] Shoshana Chaudhary RN CHF (congestive heart failure), [...] present during the visit who assisted with hungarian translations. Pt denied any chest pain or [...] documented as of this encounter Care Teams Respiratory Care Instructor Relationship Specialty Start Date End Date Cynthia Marshall NP [address] [place] [phone] PCP - General Family Medicine 09/10/23 Katelyn-Luis 01/01/25 documented as of this encounter
--- NOTE | ~2025-03-23 | XR_ITS ---
EXAMINATION: XR CHEST CLINICAL INFORMATION: chest pain COMPARISON: March 19, 2025. TECHNIQUE: Frontal view of the chest was obtained. FINDINGS: Meniscal shaped opacity mid to lower right hemithorax. Blunting of the left costophrenic angle. Prominence of the interstitial markings in the perihilar region. Cardiomediastinal silhouette size is normal. Calcified plaque thoracic aorta. Multilevel thoracic spondylosis. No pneumothorax. Degenerative changes both shoulders. XR/XR chest 1V IMPRESSION: Pulmonary edema. Right-sided pleural effusion moderate to large volume. Small left-sided pleural effusion. Electronically signed by: Brennan Robbins MD 03/23/2025 02:59 PM EDT
--- NOTE | 2025-03-23 13:25 | ECG_ITS ---
Test Reason : CP Blood Pressure : */* mmHG Vent. Rate : 70 BPM Atrial Rate : * BPM P-R Int : * ms QRS Dur : 92 ms QT Int : 472 ms P-R-T Axes : * 48 176 degrees QTcB Int : 509 ms Atrial fibrillation with premature ventricular or aberrantly conducted complexes Minimal voltage criteria for LVH, may be normal variant ( Karlo product ) Abnormal ECG When compared with ECG of 19-Mar-2025 15:07, QT has lengthened Referred By: Eileen Wong Electronically Signed By: Ash Pedersen
[2025-03-23 13:28] VITALS: BP 143/65; BP 170/80; PULSE 68; PULSE 70; RESP 20; TEMP 36.8; O2SAT 89; O2SAT 98; BMI 27.4
[2025-03-23 13:34] VITALS: O2SAT 93
--- NOTE | 2025-03-23 13:46 | ED.CHESTPAIN ---
HPI - Chest Pain General Chief Complaint: Chest Pain Stated Complaint: CP A COUPLE HRS AGO PER EMS Time Seen by Provider: 03/23/25 13:45 Source: patient, EMS, RN notes reviewed, old records reviewed and aerial photograph interpreter Mode of arrival: EMS Limitations: no limitations History of Present Illness ED Provider: Joey Ivan PA-C HPI narrative: 74-year-old male with history of AFib on Eliquis, DM, HTN, HLD, CKD, CVA, HFpEF, history of cholecystitis and C diff, GI bleed, recent ER visit 03/19 where he left AMA (admit for CHF recommended) who presents to the ER via EMS for evaluation of acute onset of left-sided, nonradiating chest pain and shortness of breath after he was walking home from the store this afternoon. He states for the last couple of days he has been more short of breath than usual, his lower extremity edema has been worsening. He denies any fevers but he has had a slight cough. No phlegm production. He denies any nausea, vomiting, diarrhea, abdominal pain. He states the chest pain is slightly better after getting aspirin and nitro with EMS. He was seen here on 03/19 where he was found to have BNP 2100, chest x-ray with cardiomegaly, pulmonary vascular congestion and bilateral pleural effusions. He left against medical advice. He states since he left he has been compliant with his diuretics, he does not know if his weight has gone up or down. On arrival to the ER patient was found to be hypoxic to 89%, placed on 2 L nasal cannula with improvement in saturations to the mid 90s. MD complaint: chest pain and other (SOB) Onset (ago): hour(s) Timing of current episode: still present Prior episodes: Yes Onset: during exertion Pain location: left chest Pain radiation: none Severity: moderate Quality: sharp Relieving factors: nitroglycerin and rest Exacerbating factors: exertion Associated symptoms: diaphoresis, dyspnea, cough and leg swelling Treatment prior to arrival: aspirin and nitroglycerin Risk Factors Coronary artery disease risk factors: diabetes, hyperlipidemia and hypertension Related Data Home Medications ?Medication ?Instructions ?Recorded ?Confirmed blood-glucose meter #1 ea 05/14/20 01/14/24 lancets #100 ea 05/14/20 01/14/24 atorvastatin 40 mg tablet 40 mg PO DAILY 12/19/22 01/26/25 lisinopril 40 mg tablet 40 mg PO DAILY 10/20/24 01/26/25 apixaban 2.5 mg tablet (Eliquis) 2.5 mg PO BID 12/05/24 01/26/25 sucralfate 1 gram tablet 1 g PO TID GASTRITIS 01/26/25 01/26/25 Previous Rx's ?Medication ?Instructions ?Recorded blood sugar diagnostic #50 ea 01/24/21 calcitriol 0.25 mcg capsule 0.25 mcg PO Q2D #14 caps 10/17/24 omeprazole 40 mg capsule,delayed 40 mg PO BID@0630,1630 #60 caps 12/16/24 release ferrous sulfate 325 mg (65 mg 325 mg PO BID #60 tabs 01/26/25 iron) tablet amlodipine 5 mg tablet 5 mg PO DAILY #60 tabs 01/29/25 carvedilol 6.25 mg tablet 6.25 mg PO BID #60 tabs 01/29/25 furosemide 40 mg tablet 40 mg PO QAM #90 tabs 01/29/25 Allergies Allergy/AdvReac Type Severity Reaction Status Date / Time No Known Allergies (No Known Allergy Verified 03/23/25 13:30 Allergies*) Review of Systems Review of Systems: Yes all other systems are reviewed and are negative [facility] Past Medical History Medical History Anemia in chronic kidney disease (CKD) Hypertension Uncontrolled hypertension Congestive heart failure CKD (chronic kidney disease) CHF (congestive heart failure) CKD (chronic kidney disease) stage 4, GFR 15-29 ml/min Obesity (BMI 30.0-34.9) Cardiomyopathy Stroke Chronic atrial fibrillation CKD (chronic kidney disease) Former smoker Depression Diabetes High cholesterol Surgical History History of aneurysm History of shoulder surgery Family History Family History Father No problems noted. Mother Diabetes Hypertension Cancer Son No problems noted. Son No problems noted. Son No problems noted. Daughter No problems noted. Daughter No problems noted. Social History Social History Household Members: None Household Members Other:: Housing: Apartment Are you a primary childcare center director to a significant other at home: No Do you presently have visiting nurse or other home services: Yes Unable to assess alcohol history related to: Unknown Alcohol intake: never Patient Tobacco Use Status: Former Tobacco user Substance Use Type: Marijuana Advance Directives: Yes Advance Directives on File: Yes Advance Directives Date on File: 12/17/24 Do you have a plan to hurt others: No Plan service: No Current occupational status: disabled Physical Exam Exam: Exam: Appearance: Alert. Oriented X3. No acute distress. Head: normocephalic, atraumatic. Eyes: Pupils equal, round and reactive to light. ENT: Pharynx normal. No tonsillar swelling or exudate. Neck: Normal inspection. Neck supple. CVS: irregularly irregular, no appreciated murmur. Pulses normal. Respiratory: No respiratory distress. Breath sounds diminished at the bilateral bases Abdomen: Soft and nontender. +BS x4 Skin: Skin warm and dry. Normal skin color. Normal skin turgor. No rashes. Extremities: 3+ lower extremity edema, chronic lower extremity wounds on bilateral lower legs Neuro/psych: Oriented X 3. No motor deficit. No sensory deficit. CN II-XII intact. Normal speech and cognition. Vital Signs: Vital Signs: Last Vital Signs Temp 98.2 F 03/23/25 13:28 Pulse 64 03/23/25 14:24 Resp 22 H 03/23/25 14:24 BP 159/74 H 03/23/25 14:24 Pulse Ox 95 03/23/25 14:24 O2 Del Method Nasal Cannula 03/23/25 14:24 O2 Flow Rate 2 03/23/25 14:24 BMI result Body Mass Index 27.4 Medical Decision Making Medical Decision Making MDM Narrative: 74-year-old male with history of AFib on Eliquis, DM, HTN, HLD, CKD, CVA, HFpEF, history of cholecystitis and C diff, GI bleed, recent ER visit 03/19 where he left AMA (admit for CHF recommended) who presents to the ER via EMS for evaluation of acute onset of left-sided, nonradiating chest pain and shortness of breath after he was walking home from the store this afternoon. s/p ASA and nitro with slight improvement Patient hypoxic on arrival requiring nasal cannula. Heart rate and blood pressure stable. He is in no respiratory distress. He appears quite volume overloaded. Labs show slightly worsening renal function, slightly worsening anemia. No leukocytosis. Low suspicion for infection such as pneumonia at this time. Will hold off on antibiotics Chest x-ray shows worsening right-sided pleural effusion and pulmonary edema. He likely has cardiorenal syndrome as etiology of his worsening CKD. will need IV diuresis and admission to the hospital. Differential Diagnosis Differential Diagnoses: The differential diagnosis associated with the presentation includes acute CHF exacerbation, ACS/NSTEMI, unstable angina, PTX, pleural effusions, PNA Admission/Observation Consideration of admission/observation: Escalation of care including admission/observation considered Consult Healthcare Provider Management of the patient was discussed with: Hospitalist Lab Data MDM Lab Attestation statement: I reviewed the patient's lab results. Slightly worsening normocytic anemia, could be to volume overload state verses very slow recurrent GI bleed Worsening CKD likely cardiorenal in nature 03/23/25 13:46 03/23/25 13:46 Labs: Lab Results 03/23/25 Range/Units 13:46 WBC 4.8 (4.8-10.8) X10*3/uL RBC 3.23 L (4.60-5.80) X10*6/uL Hgb 8.4 L (14.0-18.0) g/dl Hct 28.4 L (42.0-52.0) % MCV 87.9 (80.0-98.0) fL MCH 26.0 L (27.0-33.0) pg MCHC 29.6 L (31.0-36.0) g/dl RDW 17.1 H (11.0-16.0) % Plt Count 189 (160-400) X10*3/uL MPV 9.3 L (9.4-12.4) fL Immature Gran % (Auto) 0.4 (0.0-0.4) % Neut % (Auto) 76.1 H (45-73) % Lymph % (Auto) 15.9 L (20-40) % [place] % (Auto) 6.6 (2-11) % Eos % (Auto) 0.8 (0-4) % Baso % (Auto) 0.2 (0-2) % Lymph # (Auto) 0.8 L (1.2-4.9) X10*3/uL [place] # (Auto) 0.3 (0.1-1.2) X10*3/uL Eos # (Auto) 0.0 (0.0-0.4) X10*3/uL Baso # (Auto) 0.0 (0.0-0.2) X10*3/uL Abs Immat Gran (auto) 0.02 (0.00-0.03) X10*3/uL Absolute Neuts (auto) 3.7 (2.0-8.3) x10*3/uL Absolute Nucleated RBC 0.000 (0.0-0.012) X10*3/uL Nucleated RBC % (auto) 0.0 (0.0-0.2) /100WBC PT 15.1 H (10.9-12.4) SEC INR 1.3 H (0.9-1.1) APTT 31.8 (26.7-34.1) SEC Sodium 140 (135-145) mmol/L Potassium 3.7 (3.3-5.1) mmol/L Chloride 109 H (96-108) mmol/L Carbon Dioxide 23 (22-29) mmol/L Anion Gap 12 (12-20) BUN 42 H (9-16) mg/dL Creatinine 2.18 H (0.5-1.4) mg/dL Estim Creat Clear Calc 29.9 Estimated GFR 30 Random Glucose 154 H (60-115) mg/dL Calcium 8.2 L (8.4-10.2) mg/dL Magnesium 1.7 (1.6-2.6) mg/dL Total Bilirubin 1.0 (0.0-1.0) mg/dL AST 26 (5-37) U/L ALT 17 (0-40) U/L Alkaline Phosphatase 149 H (39-117) U/L Troponin I High Sens 25.3 (<3.5-35.0) ng/L B-Natriuretic Peptide 1965 H (<100) pg/mL Total Protein 6.3 L (6.5-8.0) g/dL Albumin 2.9 L (3.5-5.0) g/dL Independent Interpretation I performed an independent interpretation of an: EKG and Plain X-Ray Interpretation: EKG with atrial fibrillation, ventricular rate 70 beats per minute, PVCs are present, no ST segment elevations, inverted T waves in V1-V6 which appear present on last week's EKG Radiology Impression Discussion of test interpretation with radiology: I have reviewed the radiologist's reading. Independent Historian Clinical information obtained from an independent historian. History obtained from or confirmed by: EMS External Record Review External record reviewed: Outpatient record, Prior outpatient labs and Prior outpatient radiology Tests considered The following testing was considered but not selected: CTA considered - low suspicion for PE given he is already anticoagulated Prescription Management I considered prescription management with: Pain Medication and Other (lasix vs bumex) Chronic Conditions Patient?s care impacted by: Diabetes, Hypertension and Other (HFpEF) Critical Care Time Critical Care Time Critical Care Time: Yes Total Critical Care Time: 44 Attestation: I have personally provided critical care time exclusive of time spent on separately billable procedures. Time includes review of lab data, radiology results, discussion with consultants, and monitoring for potential decompensation. Intervention performed as documented. Discharge Plan Discharge Patient Disposition: Admitted As Inpatient Print Language: Pakistani
[2025-03-23 13:49] LABS: MANUAL DIFF FLAG NO
[2025-03-23 13:58] LABS: Hematocrit 28.4 % (42.0-52.0); Hemoglobin 8.4 g/dl (14.0-18.0); Imm Gran Abs Auto 0.02 X10*3/uL (0.00-0.03); Imm Gran Pct Auto 0.4 % (0.0-0.4); Lymphocytes Absolute Auto 0.8 X10*3/uL (1.2-4.9); Mean Corpuscular HGB Conc 29.6 g/dl (31.0-36.0); Mean Corpuscular Hemoglobin 26.0 pg (27.0-33.0); Mean Corpuscular Volume 87.9 fL (80.0-98.0); NRBC Abs Auto 0.000 X10*3/uL (0.0-0.012); NRBC Pct Auto 0.0 /100WBC (0.0-0.2); Platelet Count 189 X10*3/uL (160-400); Red Blood Count 3.23 X10*6/uL (4.60-5.80); White Blood Count 4.8 X10*3/uL (4.8-10.8)
[2025-03-23 14:08] LABS: Alanine Aminotransferase 17 U/L (0-40); Albumin Level 2.9 g/dL (3.5-5.0); Alkaline Phosphatase 149 U/L (39-117); Anion Gap 12 (12-20); Aspartate Amino Transferase 26 U/L (5-37); Blood Urea Nitrogen 42 mg/dL (9-16); Calcium 8.2 mg/dL (8.4-10.2); Carbon Dioxide 23 mmol/L (22-29); Chloride 109 mmol/L (96-108); Creatinine Clr Calc Pharmacy 29.9; Estimated Glomerular Filt Rate 30; Magnesium 1.7 mg/dL (1.6-2.6); Potassium 3.7 mmol/L (3.3-5.1); Sodium 140 mmol/L (135-145); Total Protein 6.3 g/dL (6.5-8.0)
[2025-03-23 14:09] LABS: INTERNATIONAL NORM RATIO 1.3 (0.9-1.1); Prothrombin Time 15.1 SEC (10.9-12.4)
[2025-03-23 14:11] LABS: Partial Thromboplastin Time 31.8 SEC (26.7-34.1)
[2025-03-23 14:13] LABS: B Type Natriuretic Peptide 1965 pg/mL (<100); Troponin-I High Sensitivity 25.3 ng/L (<3.5-35.0)
[2025-03-23 14:24] VITALS: BP 159/74; PULSE 64; RESP 22; O2SAT 95
--- OUTSIDE RECORDS SUMMARY | 2025-03-23 14:28 | XMS_ITS | Encounter Summary ---
Author Organization [facility] Address [address] [place] [address] Phone Care Team Providers Care Ion Exchange Operator Name Role Phone Arielle Godinez Primary Care Provider Unavailabl e Encounter Details Date Type Department Care Team (Late st Contact Info) Description 01/03/2024 Office Communication [facility] [address] [place] [address] Soy Meléndez MD [address] [facility] [address] [place] [address] Social History Tobacco Use Types [...] on filedocumented in this encounter Care Teams Ion Exchange Operator Relationship Specialty Start Date End Date Arielle Godinez PCP - General Family Medicine 08/10/21 documented as of this encounter
--- OUTSIDE RECORDS SUMMARY | 2025-03-23 14:28 | XMS_ITS | Encounter Summary ---
Author Organization [facility] Address [address] [place] [address] Care Team Providers Care Branch Sales And Service Representative Name Role Phone Jarad Lunyd MD Primary Care Provider [phone] Encounter Details Date Type Department Care Team (Late st Contact Info) Description 12/17/[address] [facility] - Main Lab [address] [facility] [place] [address] Jarad Lundy MD [address] [place] [id number] Anemia, unspecified; Chronic kidney disease, stage 3a [...] K/mcL LAB HEMETOLOGY METHOD 12/17/2024 9:04 AM [facility] RBC 3.60(L) 4.50 - 5.50 M/mcL LAB HEMETOLOGY METHOD 12/17/2024 9:04 AM [facility] Hemoglobin 10.7(L) 13.5 - 17.5 g/dL LAB HEMETOLOGY METHOD 12/17/2024 9:04 AM [facility] Hematocrit 32.4(L) 42.0 - 54.0 % LAB HEMETOLOGY METHOD 12/17/2024 9:04 AM [facility] MCV 90.0 79.0 - 98.0 FL LAB HEMETOLOGY METHOD 12/17/2024 9:04 AM [facility] MCH 29.7 27.0 - 32.0 pcg LAB HEMETOLOGY METHOD 12/17/2024 9:04 AM [facility] MCHC 33.0 32.0 - 37.0 g/dL LAB HEMETOLOGY METHOD 12/17/2024 9:04 AM [facility] RDW 16.6(H) 11.0 - 15.0 % LAB HEMETOLOGY METHOD 12/17/2024 9:04 AM [facility] Platelets 335 130 - 400 K/mcL LAB HEMETOLOGY METHOD 12/17/2024 9:04 AM [facility] MPV 9.1 7.0 - 11.0 FL LAB HEMETOLOGY METHOD 12/17/2024 9:04 AM [facility] NRBC 0.0 <1.0 % LAB HEMETOLOGY METHOD 12/17/2024 9:04 AM [facility] NRBC Absolute 0.00 <0.10 K/mcL LAB HEMETOLOGY METHOD 12/17/2024 9:04 AM [facility] Neutrophils Relative 76.7 % LAB HEMETOLOGY METHOD 12/17/2024 9:04 AM [facility] Lymphocytes Relative 16.2 % LAB HEMETOLOGY METHOD 12/17/2024 9:04 AM [facility] Monocytes Relative 5.4 % LAB HEMETOLOGY METHOD 12/17/2024 9:04 AM [facility] Eosinophils Relative 0.8 % LAB HEMETOLOGY METHOD 12/17/2024 9:04 AM [facility] Basophils Relative 0.2 % LAB HEMETOLOGY METHOD 12/17/2024 9:04 AM [facility] Immature Granulocytes Relative 0.7 % LAB HEMETOLOGY METHOD 12/17/2024 9:04 AM [facility] Neutrophils Absolute 8.40(H) 1.50 - 7.00 K/mcL LAB HEMETOLOGY METHOD 12/17/2024 9:04 AM [facility] Lymphocytes Absolute 1.78 1.00 - 5.00 K/mcL LAB HEMETOLOGY METHOD 12/17/2024 9:04 AM [facility] Monocytes Absolute 0.59 0.20 - 1.00 K/mcL LAB HEMETOLOGY METHOD 12/17/2024 9:04 AM [facility] Eosinophils Absolute 0.09 0.00 - 0.50 K/mcL LAB HEMETOLOGY METHOD 12/17/2024 9:04 AM [facility] Basophils Absolute 0.02 0.00 - 0.20 K/mcL LAB HEMETOLOGY METHOD 12/17/2024 9:04 AM [facility] Immature Granulocytes Absolute 0.08(H) 0.00 - 0.03 K/mcL LAB HEMETOLOGY METHOD 12/17/2024 9:04 AM [facility] Blood Venous blood specimen / Unknown Venipuncture / Unknown 12/17/2024 4:55 AM EDT 12/17/2024 8:39 AM EDT us Jarad Lundy MD LAB BLOOD ORDERABLES Final Resu lt [facility] [address] [place] [address], [place] [phone] * (ABNORMAL) Basic metabolic panel (12/17/2024 4:55 AM EDT) Sodium 141 133 - 145 mmol/L LAB CHEMISTRY METHOD 12/17/2024 9:22 AM [facility] Potassium 3.5 3.5 - 5.5 mmol/L LAB CHEMISTRY METHOD 12/17/2024 9:22 AM [facility] Chloride 107 96 - 110 mmol/L LAB CHEMISTRY METHOD 12/17/2024 9:22 AM [facility] CO2 27 21 - 32 mmol/L LAB CHEMISTRY METHOD 12/17/2024 9:22 AM [facility] Anion Gap 7 3 - 11 LAB CHEMISTRY METHOD 12/17/2024 9:22 AM [facility] Glucose 61(L) 70 - 100 mg/dL LAB CHEMISTRY METHOD 12/17/2024 9:22 AM [facility] BUN 26(H) 5 - 25 mg/dL LAB CHEMISTRY METHOD 12/17/2024 9:22 AM [facility] Creatinine 1.61(H) 0.70 - 1.30 mg/dL LAB CHEMISTRY METHOD 12/17/2024 9:22 AM [facility] eGFR 45(L) >=60 mL/min/1. 73m2 LAB CHEMISTRY METHOD 12/17/2024 9:22 AM EDT [facility] Comment:Calculation based on the Chronic Kidney Disease Epidemiology Collaboration (CKD-EPI) equation refit without adjustment for race. BUN/Creatinine Ratio 16.1 LAB CHEMISTRY METHOD 12/17/2024 9:22 AM EDT [facility] Calcium 8.2(L) 8.5 - 10.5 mg/dL LAB CHEMISTRY METHOD 12/17/2024 9:22 AM EDT [facility] Blood Venous blood specimen / Unknown Venipuncture / Unknown 12/17/2024 4:55 AM EDT 12/17/2024 8:39 AM EDT us Jarad Lundy MD LAB BLOOD ORDERABLES Final Resu lt [facility] [address] [place] [address], documented in this encounter Visit Diagnoses Diagnosis Anemia, unspecified Chronic kidney disease, stage 3a (CMS/HCC V24, CMS/HCC V28) documented in this encounter Care Teams Branch Sales And Service Representative Relationship Specialty Start Date End Date Jarad Lundy MD [address] [place] [id number] PCP - General Hospitalist Medicine 12/17/24 documented as of this encounter
--- NOTE | 2025-03-23 15:23 | P.HPHOSP_ITS ---
History of Present Illness Date of Service: 03/23/25 Attending physician on admission: Jabari Ge Chief Complaint: SOB Pt is a 74-year-old male with a PMH significant for?HFpEF (LVEF 52%), AFib on Eliquis, [id number] type 2 diabetes, HTN, HLD, CAD, hyperparathyroidism, and cognitive impairment who presents to the ED with?substernal chest pain and increased SOB/FRANCIS. Pt initially presented with similar symptoms 4 days prior on 03/19 where he was scheduled to be admitted to the hospital for CHF exacerbation, but pt declined and left AMA. Pt is overall a poor historian and has a hx of medication noncompliance as he sometimes forgets to take his pills. He is vague as to what brought him back to the hospital today, but chart and provider review indicate he had had sudden onset nonradiating substernal chest pain as well as increased SOB and FRANCIS. Currently pt denies any acute medical complaints. In the ED pt was hypoxic at 89% on RA, vitals otherwise stable. Labs were significant for creatinine 2.18 and BNP 1965. No leukocytosis. Stable microcytic anemia. No significant electrolyte abnormalities. Hepatic function around baseline. CXR showed pulmonary edema and moderate to large volume right- sided pleural effusion, and small left-sided pleural effusion. EKG demonstrated AFib with PVCs and t-wave inversions in V1-V6. Pt was treated in the ED with Lasix 60 mg IV. Pt is admitted to the hospital for treatment and further evaluation of acute hypoxic respiratory failure in the setting of CHF exacerbation. Review of Systems 2 Review of Systems: Negative except for that which is stated in the [facility] Medical History Anemia in chronic kidney disease (CKD) Hypertension Uncontrolled hypertension Congestive heart failure CKD (chronic kidney disease) CHF (congestive heart failure) CKD (chronic kidney disease) stage 4, GFR 15-29 ml/min Obesity (BMI 30.0-34.9) Cardiomyopathy Stroke Chronic atrial fibrillation CKD (chronic kidney disease) Former smoker Depression Diabetes High cholesterol Family History Father No problems noted. Mother Diabetes Hypertension Cancer Son No problems noted. Son No problems noted. Son No problems noted. Daughter No problems noted. Daughter No problems noted. Surgical History History of aneurysm History of shoulder surgery Social History Household Members: None Household Members Other:: Housing: Apartment Are you a primary before and after school daycare worker to a significant other at home: No Do you presently have visiting nurse or other home services: Yes Unable to assess alcohol history related to: Unknown Alcohol intake: never Patient Tobacco Use Status: Former Tobacco user Substance Use Type: Marijuana Advance Directives: Yes Advance Directives on File: Yes Advance Directives Date on File: 12/17/24 Do you have a plan to hurt others: No Plan service: No Current occupational status: disabled Meds Allergies Allergy/AdvReac Type Severity Reaction Status Date / Time No Known Allergies (No Known Allergy Verified 03/23/25 13:30 Allergies*) Home Medications ?Medication ?Instructions ?Recorded ?Confirmed ?Last Taken ?Type blood-glucose meter #1 ea 05/14/20 01/14/24 Unkn own History lancets #100 ea 05/14/20 01/14/24 Un known History atorvastatin 40 mg tablet 40 mg PO DAILY 12/19/2203/1311/11/24 History lisinopril 40 mg tablet 40 mg PO DAILY 10/20/2403/1311/11/24 History apixaban 2.5 mg tablet (Eliquis) 2.5 mg PO BID 12/05/ 5 03/23/25 Unknown History sucralfate 1 gram tablet 1 g PO TID GASTRITIS 5 03/23/25 Unknown History acetaminophen 500 mg tablet 1,000 mg PO Q8H PRN mild p ain 03/23/25 03/23/25 Unknown History furosemide 40 mg tablet 40 mg PO DAILY 03/23/2503/13 Unknown History Physical Exam 2 Vital Signs and Narrative: Vital Signs: Last Vital Signs Temp 98.2 F 03/23/25 13:28 Pulse 64 03/23/25 14:24 Resp 22 H 03/23/25 14:24 BP 159/74 H 03/23/25 14:24 Pulse Ox 95 03/23/25 14:24 O2 Del Method Nasal Cannula 03/23/25 14:24 O2 Flow Rate 2 03/23/25 14:24 BMI result Body Mass Index 27.4 General: AOx2, no acute distress Resp: Bilateral crackles, Diminished in RLL CVS: S1, S2, irregularly irregular rhythm GI: Soft, NT, no distention Skin: Warm, dry Neuro: Cranial nerves II-XII grossly intact bilaterally. Motor grossly intact bilaterally Extremities: 3+ bilateral pitting edema. Chronic venous stasis dermatitis changes Psych: Calm, cooperative Results Labs 03/23/25 13:46 03/23/25 13:46 Labs: Laboratory Results - last 24 hr 03/23/25 13:46 MCV 87.9 MCH 26.0 L MCHC 29.6 L RDW 17.1 H Plt Count 189 MPV 9.3 L Immature Gran % (Auto) 0.4 Neut % (Auto) 76.1 H Lymph % (Auto) 15.9 L [place] % (Auto) 6.6 Eos % (Auto) 0.8 Baso % (Auto) 0.2 Lymph # (Auto) 0.8 L [place] # (Auto) 0.3 Eos # (Auto) 0.0 Baso # (Auto) 0.0 Abs Immat Gran (auto) 0.02 Absolute Neuts (auto) 3.7 Absolute Nucleated RBC 0.000 Nucleated RBC % (auto) 0.0 PT 15.1 H INR 1.3 H APTT 31.8 Anion Gap 12 Estim Creat Clear Calc 29.9 Estimated GFR 30 Random Glucose 154 H Calcium 8.2 L Magnesium 1.7 Total Bilirubin 1.0 AST 26 ALT 17 Alkaline Phosphatase 149 H B-Natriuretic Peptide 1965 H Total Protein 6.3 L Albumin 2.9 L Imaging Radiologist's Impressions: Impressions Chest X-Ray 03/23/25 13:42 IMPRESSION: Pulmonary edema. Right-sided pleural effusion moderate to large volume. Small left-sided pleural effusion. Electronically signed by: Brennan Robbins MD 03/23/2025 02:59 PM EDT Assessment and Plan (1) Acute exacerbation of CHF (congestive heart failure): Qualifiers: Heart failure type: unspecified Qualified Code(s): I50.9 - Heart failure, unspecified Status: Acute Plan Pt is a 74-year-old male with a PMH significant for?HFpEF (LVEF 52%), AFib on Eliquis, [id number] type 2 diabetes, HTN, HLD, CAD, hyperparathyroidism, and cognitive impairment who presents to the ED with?substernal chest pain and increased SOB/FRANCIS. Pt is admitted to the hospital for treatment and further evaluation of acute hypoxic respiratory failure in the setting of CHF exacerbation. Acute hypoxic respiratory failure in the setting of CHF exacerbation Pt with SOB, FRANCIS, CXR with pulmonary edema and pleural effusion, edema, elevated BNP, and desatting to 89% on RA Question of medication compliance at home Echo 12/05/24 with LVEF 52%, mild pulm HTN Will treat with Lasix 40mg IV bid Follow I/O, BMP, BNP Titrate supplemental O2 >92, wean as tolerated Monitor on telemetry Chest pain Pt Initially complaining of substernal nonradiating chest pain Currently asymptomatic; some T-wave inversions in V1 through V6 Initial troponin 25.3 Repeat troponin, monitor on telemetry HTN Continue amlodipine, carvedilol, lisinopril Persistent AFib Continue carvedilol and Eliquis HLD/CAD Continue atorvastatin Iron deficiency anemia Continue iron supplementation GERD Continue Full Code Attending:?Dr. Ge DVT Prophylaxis: On Eliquis Pt will require a hospitalization of at least two nights for treatment of?acute hypoxic respiratory failure in the setting of CHF exacerbation. Pt will require hospital level care for administration of supplemental oxygen, IV diuretics, and close monitoring of labs and cardiac function. with . Quality Stroke Does the patient have a stroke diagnosis?: No VTE Prior VTE?: No VTE Risk Level:: Medical - moderate - high VTE Device Contraindication: Treatment Not Indicated VTE Drug Contraindication: N/A - Med Ordered
[2025-03-23 15:49] VITALS: BP 170/78
[2025-03-23] MEDS: Furosemide 100 MG/10 ML VIAL 60 MG IVPUSH (15:49)
[2025-03-23] MEDS: 0.9 % Sodium Chloride Flush 3 ML SYRINGE IVFLUSH (15:52)
[2025-03-23 16:47] VITALS: BP 166/71; PULSE 60; RESP 17; O2SAT 98
--- NOTE | 2025-03-23 16:56 | PHA.MEDREC ---
Addendum entered by Chica De Jesus RPh 03/23/25 17:16: REVIEWED BY PHARMACIST Original Note: Pharmacy Consult ? Medication Reconciliation Pharmacy has completed the medication reconciliation. Patient is a poor historian. Tried to reach out to patient daughter on file, left voicemail. Utilized claims to confirm med list. Will update with any changes when/if patient daughter calls back.
--- NOTE | 2025-03-23 18:03 | PM.EVENT ---
Event Note Date of Service: 03/23/25 Event Note: pt suddenly ripped out IV and wishes to leave hospital; counseled on risk of disability and but he refuses to stay and wishes to sign out AGAINST MEDICAL ADVICE Time Spent With Patient Time: Total time managing care of this patient today ____ minutes.
--- NOTE | 2025-03-23 18:17 | PC.NURSE ---
Pt adamantly refusing care. Pulled PIV out. Continues to state I want to go home . Tearful. Pt ambulated independently and put clothes on. Admitting MD notified and at bedside. Explained risks which include if pt leaves AMA. Pt gave verbal understanding. Stated he would like to go home to his family. AMA paperwork signed. Pt given discharge paperwork. Ambulated independently to .
--- NOTE | 2025-03-23 18:50 | P.DS_ITS ---
DS: Providers Provider Date of Service: 03/23/25 Date of admission: 03/23/25 15:14 Date of discharge: 03/23/25 Primary care physician: Blanca Anderson MD DS: Diagnosis Discharge Diagnosis (1) Acute exacerbation of CHF (congestive heart failure): Status: Acute DS: Summary Hospital Course Hospital Course: From admission HPI: Date of Service: 03/23/25 Attending physician on admission: Jabari Ge Chief Complaint: SOB Pt is a 74-year-old male with a PMH significant for?HFpEF (LVEF 52%), AFib on Eliquis, [id number] type 2 diabetes, HTN, HLD, CAD, hyperparathyroidism, and cognitive impairment who presents to the ED with?substernal chest pain and increased SOB/FRANCIS. Pt initially presented with similar symptoms 4 days prior on 03/19 where he was scheduled to be admitted to the hospital for CHF exacerbation, but pt declined and left AMA. Pt is overall a poor historian and has a hx of medication noncompliance as he sometimes forgets to take his pills. He is vague as to what brought him back to the hospital today, but chart and provider review indicate he had had sudden onset nonradiating substernal chest pain as well as increased SOB and FRANCIS. Currently pt denies any acute medical complaints. In the ED pt was hypoxic at 89% on RA, vitals otherwise stable. Labs were significant for creatinine 2.18 and BNP 1965. No leukocytosis. Stable microcytic anemia. No significant electrolyte abnormalities. Hepatic function around baseline. CXR showed pulmonary edema and moderate to large volume right- sided pleural effusion, and small left-sided pleural effusion. EKG demonstrated AFib with PVCs and t-wave inversions in V1-V6. Pt was treated in the ED with Lasix 60 mg IV. Pt is admitted to the hospital for treatment and further evaluation of acute hypoxic respiratory failure in the setting of CHF exacerbat ion. Hospital course A few hours after admission pt suddenly ripped out his IV and demanded to leave AMA before this provider could speak to him. Pt was seen by another provider who consued pt against leaving AMA; pt voiced understanding of significant health risks including associated with leaving, but still wished to sign out AMA. Subsequently called pt's daughter/HCP who reports pt has lately been refusing all help and support, including follow up appointments or additional testing. Pt lives alone and reports he is compliant with all home meds, but daughter says when she visits him at home it is ?a mess? and it does not look like he is consistently taking any of his home medications. Daughter is worried that pt has dementia, but does not have a formal diagnosis since he will not submit to follow up testing. Daughter is aware of the dangers of pt leaving AMA as well as the difficulties of getting her father to follow through with medical advice. She will attempt to get him to take his home medications and bring him back to the hospital for IV diuresing tonight or tomorrow. Of note, pt left AMA from the ED 4 days ago. The next time pt comes to the ED he should be sectioned and be evaluated by psych to determine if he has capacity, and then, if necessary, HCP should be invoked. Time Attestation Discharge Coordination Time (in mins): 30 Quality: Safe Use of Opioids Does Pt have an Active Cancer Diagnosis on the Problem List?: No Quality: Stroke Does the patient have a stroke diagnosis?: No Physical Exam Exam: Exam: Pt left AMA Vital Signs: Vital Signs: Last Vital Signs Temp 98.2 F 03/23/25 13:28 Pulse 60 03/23/25 16:47 Resp 17 03/23/25 16:47 BP 166/71 H 03/23/25 16:47 Pulse Ox 98 03/23/25 16:47 O2 Del Method Nasal Cannula 03/23/25 14:24 O2 Flow Rate 2 03/23/25 14:24 BMI result Body Mass Index 27.4 DS: Data Data Completed and Pending Completed studies during hospitalization [Text1]: Procedures Dilation of Cystic Duct with Intraluminal Device, Via Natural or Artificial Opening Endoscopic (11/12/24) Drainage of Peritoneal Cavity with Drainage Device, Percutaneous Approach (11/12/24) Drainage of Peritoneal Cavity, Percutaneous Approach (11/12/24) Drainage of Right Pleural Cavity, Percutaneous Approach (12/04/24) Excision of Duodenum, Via Natural or Artificial Opening Endoscopic, Diagnostic (12/19/22) Excision of Esophagogastric Junction, Via Natural or Artificial Opening Endoscopic, Diagnostic (12/19/22) Excision of Stomach, Pylorus, Via Natural or Artificial Opening Endoscopic, Diagnostic (12/04/24) Inspection of Upper Intestinal Tract, Via Natural or Artificial Opening Endoscopic (11/12/24) Resection of Gallbladder, Percutaneous Endoscopic Approach (10/20/24) Transfusion of Nonautologous Red Blood Cells into Peripheral Vein, Percutaneous Approach (12/04/24) Labs on day of discharge: Laboratory Results - last 24 hr 03/23/25 13:46 WBC 4.8 RBC 3.23 L Hgb 8.4 L Hct 28.4 L MCV 87.9 MCH 26.0 L MCHC 29.6 L RDW 17.1 H Plt Count 189 MPV 9.3 L Immature Gran % (Auto) 0.4 Neut % (Auto) 76.1 H Lymph % (Auto) 15.9 L [place] % (Auto) 6.6 Eos % (Auto) 0.8 Baso % (Auto) 0.2 Lymph # (Auto) 0.8 L [place] # (Auto) 0.3 Eos # (Auto) 0.0 Baso # (Auto) 0.0 Abs Immat Gran (auto) 0.02 Absolute Neuts (auto) 3.7 Absolute Nucleated RBC 0.000 Nucleated RBC % (auto) 0.0 PT 15.1 H INR 1.3 H APTT 31.8 Sodium 140 Potassium 3.7 Chloride 109 H Carbon Dioxide 23 Anion Gap 12 BUN 42 H Creatinine 2.18 H Estim Creat Clear Calc 29.9 Estimated GFR 30 Random Glucose 154 H Calcium 8.2 L Magnesium 1.7 Total Bilirubin 1.0 AST 26 ALT 17 Alkaline Phosphatase 149 H Troponin I High Sens 25.3 B-Natriuretic Peptide 1965 H Total Protein 6.3 L Albumin 2.9 L Discharge Plan Discharge Patient Disposition: Left Against Medical Advice Discharge Diagnosis: left against medical advice Referrals: Blanca Crowley MD [Primary Care Provider, Internal Medicine] - 1 Week Discharge Medications: No Action (DME) blood sugar diagnostic Strip See Rx Instructions .ROUTE BID Qty: 50 11RF Rx Instructions: Use 1 test strip once a day ferrous sulfate 325 mg (65 mg iron) tablet 325 mg PO BID Qty: 60 11RF atorvastatin 40 mg tablet 40 mg PO DAILY Eliquis 2.5 mg tablet 2.5 mg PO BID omeprazole 40 mg Capsule,Delayed Release(Dr/Ec) 40 mg PO BID@0630,1630 Qty: 60 0RF acetaminophen 500 mg tablet 1,000 mg PO Q8H PRN (Reason: mild pain) furosemide 40 mg tablet 40 mg PO DAILY lisinopril 40 mg tablet 40 mg PO DAILY sucralfate 1 gram tablet 1 g PO TID amlodipine 5 mg Tablet 5 mg PO DAILY Qty: 60 0RF Protocol: Hold for SBP< HOLD for SBP < : 90 carvedilol 6.25 mg Tablet 6.25 mg PO BID Qty: 60 0RF Protocol: Hold for SBP/HR < HOLD for SBP < : 90 HOLD for HR < : 60 (DME) blood-glucose meter Misc See Rx Instructions PO BID Qty: 1 Rx Instructions: As directed (DME) lancets Misc See Rx Instructions .ROUTE BID Qty: 100 Rx Instructions: As directed calcitriol 0.25 mcg capsule 0.25 mcg PO Q2D Qty: 14 6RF Discharge Orders: Discharge Order (Routine); Ordered 03/23/25 Ordered By: Austyn Wilson Stand Alone Forms: Against Medical Advice Print Language: [place] Care Plan Goals: GET APPROPRIATE MEDICAL CARE Health Concerns: left against medical advice Plan of Treatment: RETURN TO HOSPITAL SOON YOU ARE READY TO GET APPROPRIATE MEDICAL TREATMENT Assessment: left against medical advice Discharge Date/Time: 03/23/25 18:22
== END 2025-03-23 18:22 | disposition left against medical advice (07) | DRG 291 ==
LOC: HO.ED 14:07 → HO.EDOVER 15:21
PROVIDERS: Admitting Provider Student in an Organized Health Care Education/Training Program; Emergency Provider Emergency Medicine; PCP Student in an Organized Health Care Education/Training Program; Visit Provider Student in an Organized Health Care Education/Training Program
DX: I13.0 Hypertensive heart and chronic kidney disease with heart failure and stage 1 through stage 4 chronic kidney disease, or unspecified chronic kidney disease (principal); I50.33 Acute on chronic diastolic (congestive) heart failure; J96.01 Acute respiratory failure with hypoxia; N18.4 Chronic kidney disease, stage 4 (severe); I48.19 Other persistent atrial fibrillation; E78.5 Hyperlipidemia, unspecified; I25.10 Atherosclerotic heart disease of native coronary artery without angina pectoris; K21.9 Gastro-esophageal reflux disease without esophagitis; E11.22 Type 2 diabetes mellitus with diabetic chronic kidney disease; Z91.148 Patient's other noncompliance with medication regimen for other reason; Z87.891 Personal history of nicotine dependence; Z79.01 Long term (current) use of anticoagulants; Z79.899 Other long term (current) drug therapy
CPT/HCPCS: 36415; 71045; 80053; 83735; 83880; 84484; 85025; 85610; 85730; 93005; 99285; J1938

== ENCOUNTER → 2025-03-23 13:25 | Outpatient (BNV) | payer OTHER, SELFPAY | PROVIDERS: Emergency Provider Emergency Medicine; PCP Student in an Organized Health Care Education/Training Program; Visit Provider Internal Medicine Cardiovascular Disease | DX: I48.91 Unspecified atrial fibrillation (principal) | CPT/HCPCS: 93010 ==

== ENCOUNTER → 2025-03-23 13:42 | Outpatient (BNV) | payer OTHER, SELFPAY | PROVIDERS: Admitting Provider Student in an Organized Health Care Education/Training Program; Emergency Provider Emergency Medicine; PCP Student in an Organized Health Care Education/Training Program; Visit Provider Radiology Diagnostic Radiology | DX: J90 Pleural effusion, not elsewhere classified (principal) | CPT/HCPCS: 71045 ==

== ENCOUNTER → 2025-03-23 15:14 | Outpatient (BNV) | payer OTHER, SELFPAY | PROVIDERS: Admitting Provider Student in an Organized Health Care Education/Training Program; Emergency Provider Emergency Medicine; PCP Student in an Organized Health Care Education/Training Program; Visit Provider Family Medicine | DX: I50.9 Heart failure, unspecified (principal) | CPT/HCPCS: 99223; 99499 ==

== ENCOUNTER 2025-03-25 09:54 | Inpatient (IN) | payer OTHER, SELFPAY ==
[2025-03-25] VITALS (10 sets, daily range): BP systolic 156–194; BP diastolic 71–96; PULSE 58–88; RESP 17–20; TEMP 36.4–37.1; O2SAT 88–96; BMI 32.7
--- NOTE | ~2025-03-25 | XR_ITS ---
EXAMINATION: XR CHEST 1 VIEW HISTORY: dyspnea COMPARISON: Comparison is made with the prior examination dated 1124. FINDINGS: A single AP portable view of the chest performed at 10:07 AM is submitted. Again seen is mild prominence of the pulmonary vasculature. There is a small to moderate right pleural effusion without change. Underlying atelectasis or pneumonia is not excluded. There is no pneumothorax. The heart remains enlarged. There is degenerative disc disease of the spine. XR/XR chest 1V IMPRESSION: Cardiomegaly, mild pulmonary vascular congestion, and a small to moderate right pleural effusion. Underlying atelectasis or pneumonia at the right lung base is not excluded. Electronically signed by: Cornelio Flores MD 03/25/2025 10:20 AM EDT
--- NOTE | 2025-03-25 09:59 | ECG_ITS ---
Test Reason : DYSPNEA Blood Pressure : */* mmHG Vent. Rate : 70 BPM Atrial Rate : * BPM P-R Int : * ms QRS Dur : 94 ms QT Int : 428 ms P-R-T Axes : * 25 166 degrees QTcB Int : 462 ms Atrial fibrillation Low voltage QRS Nonspecific T wave abnormality Prolonged QT Abnormal ECG When compared with ECG of 23-Mar-2025 13:37, T wave inversion no longer evident in Anterior leads Referred By: Viviane Kimble Electronically Signed By: Ash Pedersen
--- NOTE | 2025-03-25 10:09 | ED.SOB ---
HPI - SOB/Dyspnea General Chief Complaint: Dyspnea Stated Complaint: COMING FROM PCP, SOB X 3 D, B/T EDEMA Time Seen by Provider: 03/25/25 09:58 Source: patient and old records reviewed Mode of arrival: ambulatory Limitations: no limitations History of Present Illness ED Provider: YENNY CONWAY Narrative: 74 yo male with PMH of CHF, HTN, CKD, hyperparathyroidism, c diff colitis, anemia, depression, HLD, afib on 2.5mg eliquis, prior GIB s/p EGD December 2024 - gastritis, duodenal ulcer and duodenitis here with c/o dyspnea and leg edema x 3 days. He denies GIB symptoms, he has no fever no cough. He sleeps in a recliner. He states he takes all of his medications as prescribed. He denies checking his weight so unclear if he gained weight. On arrival he was 89% on RA does not wear O2 at home. Referred here by his PCP. Has not taken lasix since January elicited complaint: shortness of breath Pertinent past history: congestive heart failure Onset (ago): day(s) (3) Context: occurred during exertion Timing: progressively worsening Severity: moderate Exacerbating factors: lying flat and exertion Relieving factors: oxygen and upright position Known history of: congestive heart failure Associated symptoms: orthopnea and other Treatment prior to arrival: none Related Data Home Medications ?Medication ?Instructions ?Recorded ?Confirmed blood-glucose meter #1 ea 05/14/20 01/14/24 lancets #100 ea 05/14/20 01/14/24 atorvastatin 40 mg tablet 40 mg PO DAILY 12/19/22 03/23/25 lisinopril 40 mg tablet 40 mg PO DAILY 10/20/24 03/23/25 apixaban 2.5 mg tablet (Eliquis) 2.5 mg PO BID 12/05/24 03/23/25 sucralfate 1 gram tablet 1 g PO TID GASTRITIS 01/26/25 03/23/25 acetaminophen 500 mg tablet 1,000 mg PO Q8H PRN mild pain 03/23/25 03/23/25 furosemide 40 mg tablet 40 mg PO DAILY 03/23/25 03/23/25 Previous Rx's ?Medication ?Instructions ?Recorded blood sugar diagnostic #50 ea 01/24/21 calcitriol 0.25 mcg capsule 0.25 mcg PO Q2D #14 caps 10/17/24 omeprazole 40 mg capsule,delayed 40 mg PO BID@0630,1630 #60 caps 12/16/24 release ferrous sulfate 325 mg (65 mg 325 mg PO BID #60 tabs 01/26/25 iron) tablet amlodipine 5 mg tablet 5 mg PO DAILY #60 tabs 01/29/25 carvedilol 6.25 mg tablet 6.25 mg PO BID #60 tabs 01/29/25 Allergies Allergy/AdvReac Type Severity Reaction Status Date / Time No Known Allergies (No Known Allergy Verified 03/25/25 10:09 Allergies*) Review of Systems Review of Systems: Constitutional : No Fever, No Chills ENT/Mouth : No sore throat, No Rhinorrhea, No Swallowing Difficulty Eyes: No Eye Pain, No Swelling, No Redness Cardiovascular : No Chest Pain, positive SOB, pos Orthopnea, positive Edema Respiratory : No Cough, No Sputum, No Wheezing, positive dyspnea Gastrointestinal : No Nausea, No Vomiting, No Diarrhea, No abdominal Pain, No Hematochezia, No Melena Genitourinary : No Dysuria, No Urinary Frequency, No Hematuria Musculoskeletal : No joint pain, No Myalgias Skin : No Skin Lesions, No rash Neuro : No Weakness, No Numbness, No Dizziness, No Headache All other systems reviewed and are negative [facility] Past Medical History Attestation statement: The following information was validated with the patient. Source: old records reviewed Medical History Anemia in chronic kidney disease (CKD) Hypertension Uncontrolled hypertension Congestive heart failure CKD (chronic kidney disease) CHF (congestive heart failure) CKD (chronic kidney disease) stage 4, GFR 15-29 ml/min Obesity (BMI 30.0-34.9) Cardiomyopathy Stroke Chronic atrial fibrillation CKD (chronic kidney disease) Former smoker Depression Diabetes High cholesterol Surgical History History of aneurysm History of shoulder surgery Family History Family History Father No problems noted. Mother Diabetes Hypertension Cancer Son No problems noted. Son No problems noted. Son No problems noted. Daughter No problems noted. Daughter No problems noted. Social History Social History Household Members: None Household Members Other:: Housing: Apartment Are you a primary resident care manager to a significant other at home: No Do you presently have visiting nurse or other home services: Yes Unable to assess alcohol history related to: Unknown Alcohol intake: never Patient Tobacco Use Status: Former Tobacco user Substance Use Type: Marijuana Advance Directives: Yes Advance Directives on File: Yes Advance Directives Date on File: 12/17/24 service: No Current occupational status: disabled Physical Exam Vital Signs: Vital Signs: Last Vital Signs Temp 98.1 F 03/25/25 10:05 Pulse 88 03/25/25 10:19 Resp 18 03/25/25 10:19 BP 177/84 H 03/25/25 11:01 Pulse Ox 92 03/25/25 10:10 O2 Del Method Nasal Cannula 03/25/25 10:10 O2 Flow Rate 2 03/25/25 10:10 BMI result Body Mass Index 32.7 Appearance: Alert. Oriented X3. No acute distress. Eyes: Pupils equal, round and reactive to light. pale conjunctiva ENT: Pharynx normal. Neck: Normal inspection. Neck supple. CVS: Normal heart rate and rhythm. Pulses normal. Respiratory: No respiratory distress. Breath sounds diminished RLL , crackles LLL Abdomen: Soft and nontender. Skin: Skin warm and dry. pale skin color. Extremities: 3+ symmetric pitting lower extremity edema. No calf ttp Neuro: Oriented X 3. No motor deficit. No sensory deficit. CN2-12 intact Medications Administered Discontinued Medications Generic Name Dose Route Start Last Admin Trade Name Freq PRN Reason Stop Dose Admin Furosemide 40 mg 03/25/25 10:33 03/25/25 11:01 Furosemide 40 Mg/4 Ml Vial IVPUSH 03/25/25 10:34 40 mg STAT STA Administration Protocol Medical Decision Making Medical Decision Making MDM Narrative: 74 yo male with PMH of CHF, HTN, CKD, hyperparathyroidism, c diff colitis, anemia, depression, HLD, afib on 2.5mg eliquis, prior GIB s/p EGD December 2024 - gastritis, duodenal ulcer and duodenitis here with c/o edema, orthopnea, dyspnea he was 89% on RA he has diminished R lung sounds he denies GIB symptoms or pain. At this time will obtain H/H, trop, BNP, CXR, I suspect either anemia or CHF. He denies CP so ACS unlikely. He has no fevers or cough to suggest infection. Differential Diagnosis Differential Diagnoses: The differential diagnosis associated with the presentation includes CHF, anemia, effusion Admission/Observation Consideration of admission/observation: Escalation of care including admission/observation considered admit for CHF given edema/effusion and 89% on RA Consult Healthcare Provider Management of the patient was discussed with: Hospitalist (will admit) Lab Data MDM Lab Attestation statement: I reviewed the patient's lab results. 03/25/25 10:40 03/25/25 10:40 Labs: Lab Results 03/25/25 03/25/25 Range/Units 10:40 10:58 WBC 4.9 (4.8-10.8) X10*3/uL RBC 3.22 L (4.60-5.80) X10*6/uL Hgb 8.6 L (14.0-18.0) g/dl Hct 28.1 L (42.0-52.0) % MCV 87.3 (80.0-98.0) fL MCH 26.7 L (27.0-33.0) pg MCHC 30.6 L (31.0-36.0) g/dl RDW 17.3 H (11.0-16.0) % Plt Count 193 (160-400) X10*3/uL MPV 9.2 L (9.4-12.4) fL Immature Gran % (Auto) 0.4 (0.0-0.4) % Neut % (Auto) 78.2 H (45-73) % Lymph % (Auto) 14.1 L (20-40) % [place] % (Auto) 6.1 (2-11) % Eos % (Auto) 1.0 (0-4) % Baso % (Auto) 0.2 (0-2) % Lymph # (Auto) 0.7 L (1.2-4.9) X10*3/uL [place] # (Auto) 0.3 (0.1-1.2) X10*3/uL Eos # (Auto) 0.1 (0.0-0.4) X10*3/uL Baso # (Auto) 0.0 (0.0-0.2) X10*3/uL Abs Immat Gran (auto) 0.02 (0.00-0.03) X10*3/uL Absolute Neuts (auto) 3.8 (2.0-8.3) x10*3/uL Absolute Nucleated RBC 0.000 (0.0-0.012) X10*3/uL Nucleated RBC % (auto) 0.0 (0.0-0.2) /100WBC VBG pH 7.46 H (7.32-7.43) VBG pCO2 28 mmHg VBG pO2 83 mmHg VBG HCO3 20 L (22-26) mmol/L VBG O2 Saturation 96.0 % VBG Base Excess -1.5 mmol/L Sodium 141 (135-145) mmol/L Potassium 3.5 (3.3-5.1) mmol/L Chloride 111 H (96-108) mmol/L Carbon Dioxide 20 L (22-29) mmol/L Anion Gap 14 (12-20) BUN 46 H (9-16) mg/dL Creatinine 1.98 H (0.5-1.4) mg/dL Estim Creat Clear Calc 38.2 Estimated GFR 33 Random Glucose 87 (60-115) mg/dL Calcium 8.7 D (8.4-10.2) mg/dL Magnesium 1.8 (1.6-2.6) mg/dL Total Bilirubin 1.4 H (0.0-1.0) mg/dL Direct Bilirubin 0.6 H (0.0-0.5) mg/dL AST 30 (5-37) U/L ALT 16 (0-40) U/L Alkaline Phosphatase 160 H (39-117) U/L Troponin I High Sens 29.6 (<3.5-35.0) ng/L B-Natriuretic Peptide 2141 H (<100) pg/mL Total Protein 6.8 (6.5-8.0) g/dL Albumin 3.1 L (3.5-5.0) g/dL Influenza Type A (PCR) NEGATIVE (Negative) Influenza Type B (PCR) NEGATIVE (Negative) RSV RNA Qual (PCR) NEGATIVE (Negative) SARS-CoV-2 RNA (RT-PCR) NEGATIVE (Negative) Independent Interpretation I performed an independent interpretation of an: EKG and Plain X-Ray (R sided pleural effusion) Interpretation: Rate: Rhythm: Crystal: Normal P waves. Normal SALVATORE. Normal QRS complex. ST T wave : qTC: prior studies: The study has been interpreted contemporaneously by me. . Radiology Impression Discussion of test interpretation with radiology: I have reviewed the radiologist's reading. Independent Historian Clinical information obtained from an independent historian. History obtained from or confirmed by: EMS External Record Review External record reviewed: Inpatient record and Outpatient record Discharge Plan Discharge Clinical Impression: Hypoxia, Pleural effusion Acute exacerbation of CHF (congestive heart failure) Qualifiers: Heart failure type: unspecified Qualified Code(s): I50.9 - Heart failure, unspecified Patient Disposition: Admitted As Inpatient Print Language: [place]
[2025-03-25 10:50] LABS: MANUAL DIFF FLAG NO
[2025-03-25 10:55] LABS: Hematocrit 28.1 % (42.0-52.0); Hemoglobin 8.6 g/dl (14.0-18.0); Imm Gran Abs Auto 0.02 X10*3/uL (0.00-0.03); Imm Gran Pct Auto 0.4 % (0.0-0.4); Lymphocytes Absolute Auto 0.7 X10*3/uL (1.2-4.9); Mean Corpuscular HGB Conc 30.6 g/dl (31.0-36.0); Mean Corpuscular Hemoglobin 26.7 pg (27.0-33.0); Mean Corpuscular Volume 87.3 fL (80.0-98.0); NRBC Abs Auto 0.000 X10*3/uL (0.0-0.012); NRBC Pct Auto 0.0 /100WBC (0.0-0.2); Platelet Count 193 X10*3/uL (160-400); Red Blood Count 3.22 X10*6/uL (4.60-5.80); White Blood Count 4.9 X10*3/uL (4.8-10.8)
[2025-03-25] MEDS: Furosemide 40 MG/4 ML VIAL IVPUSH ×2 (11:01→17:36)
[2025-03-25 11:05] LABS: Venous Blood Gas Refer to POC result
[2025-03-25 11:06] LABS: VBG HCO3 20 mmol/L (22-26); VBG O2 % Saturation 96.0 %
[2025-03-25 11:09] LABS: Alanine Aminotransferase 16 U/L (0-40); Albumin Level 3.1 g/dL (3.5-5.0); Alkaline Phosphatase 160 U/L (39-117); Anion Gap 14 (12-20); Aspartate Amino Transferase 30 U/L (5-37); Blood Urea Nitrogen 46 mg/dL (9-16); Calcium 8.7 mg/dL (8.4-10.2); Carbon Dioxide 20 mmol/L (22-29); Chloride 111 mmol/L (96-108); Creatinine Clr Calc Pharmacy 38.2; Estimated Glomerular Filt Rate 33; Magnesium 1.8 mg/dL (1.6-2.6); Potassium 3.5 mmol/L (3.3-5.1); Sodium 141 mmol/L (135-145); Total Protein 6.8 g/dL (6.5-8.0)
[2025-03-25 11:13] LABS: B Type Natriuretic Peptide 2141 pg/mL (<100)
--- OUTSIDE RECORDS SUMMARY | 2025-03-25 11:16 | XMS_ITS | Encounter Summary ---
Author Organization [employer] Address [address] [place] [address] Care Team Providers Care Materials Mgmt Tech Name Role Phone Cynthia Marshall NP Primary Care Provider [phone] Encounter Details Date Type Department Care Team ([facility] st Contact Info) Description 09/26/2024 Orders Only [facility] [address] [place], [place] [phone] Cynthia Marshall NP [address] [place] [address] Stage 3b chronic kidney disease (CMS/HCC) Social [...] documented as of this encounter Care Teams Materials Mgmt Tech Relationship Specialty Start Date End Date Cynthia Marshall NP [address] [place] [id number] PCP - General Family Medicine 09/10/23 Katelyn-Luis 01/01/25 documented as of this encounter
--- OUTSIDE RECORDS SUMMARY | 2025-03-25 11:16 | XMS_ITS | Encounter Summary ---
Author Organization [facility] Address [address] [place] [address] Care Team Providers Care College Intern Name Role Phone Jarad Lundy MD Primary Care Provider [phone] Encounter Details Date Type Department Care Team (Late st Contact Info) Description 12/17/2024 Lab Requisition [facility] - Main Lab [address] [facility] [place] [address] Jarad Lundy MD [address] [place] [id number] Anemia, unspecified; Chronic kidney disease, stage 3a [...] K/mcL LAB HEMETOLOGY METHOD 12/17/2024 9:04 AM [facility] RBC 3.60(L) 4.50 - 5.50 M/mcL LAB HEMETOLOGY METHOD 12/17/2024 9:04 AM [facility] Hemoglobin 10.7(L) 13.5 - 17.5 g/dL LAB HEMETOLOGY METHOD 12/17/2024 9:04 AM [facility] Hematocrit 32.4(L) 42.0 - 54.0 % LAB HEMETOLOGY METHOD 12/17/2024 9:04 AM [facility] MCV 90.0 79.0 - 98.0 FL LAB HEMETOLOGY METHOD 12/17/2024 9:04 AM [facility] MCH 29.7 27.0 - 32.0 pcg LAB HEMETOLOGY METHOD 12/17/2024 9:04 AM [facility] MCHC 33.0 32.0 - 37.0 g/dL LAB HEMETOLOGY METHOD 12/17/2024 9:04 AM [facility] RDW 16.6(H) 11.0 - 15.0 % LAB HEMETOLOGY METHOD 12/17/2024 9:04 AM [facility] Platelets 335 130 - 400 K/mcL LAB HEMETOLOGY METHOD 12/17/2024 9:04 AM [facility] MPV 9.1 7.0 - 11.0 FL LAB HEMETOLOGY METHOD 12/17/2024 9:04 AM [facility] NRBC 0.0 <1.0 % LAB HEMETOLOGY METHOD 12/17/2024 9:04 AM [facility] NRBC Absolute 0.00 <0.10 K/mcL LAB HEMETOLOGY METHOD 12/17/2024 9:04 AM [facility] Neutrophils Relative 76.7 % LAB HEMETOLOGY METHOD 12/17/2024 9:04 AM [facility] Lymphocytes Relative 16.2 % LAB HEMETOLOGY METHOD 12/17/2024 9:04 AM [facility] Monocytes Relative 5.4 % LAB HEMETOLOGY METHOD 12/17/2024 9:04 AM [facility] Eosinophils Relative 0.8 % LAB HEMETOLOGY METHOD 12/17/2024 9:04 AM [facility] Basophils Relative 0.2 % LAB HEMETOLOGY METHOD 12/17/2024 9:04 AM [facility] Immature Granulocytes Relative 0.7 % LAB HEMETOLOGY METHOD 12/17/2024 9:04 AM [facility] Neutrophils Absolute 8.40(H) 1.50 - 7.00 K/mcL LAB HEMETOLOGY METHOD 12/17/2024 9:04 AM [facility] Lymphocytes Absolute 1.78 1.00 - 5.00 K/mcL LAB HEMETOLOGY METHOD 12/17/2024 9:04 AM [facility] Monocytes Absolute 0.59 0.20 - 1.00 K/mcL LAB HEMETOLOGY METHOD 12/17/2024 9:04 AM [facility] Eosinophils Absolute 0.09 0.00 - 0.50 K/mcL LAB HEMETOLOGY METHOD 12/17/2024 9:04 AM [facility] Basophils Absolute 0.02 0.00 - 0.20 K/mcL LAB HEMETOLOGY METHOD 12/17/2024 9:04 AM [facility] Immature Granulocytes Absolute 0.08(H) 0.00 - 0.03 K/mcL LAB HEMETOLOGY METHOD 12/17/2024 9:04 AM [facility] Blood Venous blood specimen / Unknown Venipuncture / Unknown 12/17/2024 4:55 AM EDT 12/17/2024 8:39 AM EDT us Jarad Lundy MD LAB BLOOD ORDERABLES Final Resu lt [facility] [address] [place] [address], [place] [phone] * (ABNORMAL) Basic metabolic panel (12/17/2024 4:55 AM EDT) Sodium 141 133 - 145 mmol/L LAB CHEMISTRY METHOD 12/17/2024 9:22 AM [facility] Potassium 3.5 3.5 - 5.5 mmol/L LAB CHEMISTRY METHOD 12/17/2024 9:22 AM [facility] Chloride 107 96 - 110 mmol/L LAB CHEMISTRY METHOD 12/17/2024 9:22 AM [facility] CO2 27 21 - 32 mmol/L LAB CHEMISTRY METHOD 12/17/2024 9:22 AM [facility] Anion Gap 7 3 - 11 LAB CHEMISTRY METHOD 12/17/2024 9:22 AM [facility] Glucose 61(L) 70 - 100 mg/dL LAB CHEMISTRY METHOD 12/17/2024 9:22 AM [facility] BUN 26(H) 5 - 25 mg/dL LAB CHEMISTRY METHOD 12/17/2024 9:22 AM [facility] Creatinine 1.61(H) 0.70 - 1.30 mg/dL LAB CHEMISTRY METHOD 12/17/2024 9:22 AM [facility] eGFR 45(L) >=60 mL/min/1. 73m2 LAB CHEMISTRY METHOD 12/17/2024 9:22 AM EDT [facility] Comment:Calculation based on the Chronic Kidney Disease Epidemiology Collaboration (CKD-EPI) equation refit without adjustment for race. BUN/Creatinine Ratio 16.1 LAB CHEMISTRY METHOD 12/17/2024 9:22 AM EDT [facility] Calcium 8.2(L) 8.5 - 10.5 mg/dL LAB CHEMISTRY METHOD 12/17/2024 9:22 AM EDT [facility] Blood Venous blood specimen / Unknown Venipuncture / Unknown 12/17/2024 4:55 AM EDT 12/17/2024 8:39 AM EDT us Jarad Lundy MD LAB BLOOD ORDERABLES Final Resu lt [facility] [address] [place] [address], documented in this encounter Visit Diagnoses Diagnosis Anemia, unspecified Chronic kidney disease, stage 3a (CMS/HCC V24, CMS/HCC V28) documented in this encounter Care Teams College Intern Relationship Specialty Start Date End Date Jarad Lundy MD [address] [place] [id number] PCP - General Hospitalist Medicine 12/17/24 documented as of this encounter
--- OUTSIDE RECORDS SUMMARY | 2025-03-25 11:16 | XMS_ITS | Encounter Summary ---
Author Organization [facility] Address [address] [place] [address] Phone Care Team Providers Care Operator Cavity Pump Name Role Phone Arielle Godinez Primary Care Provider Unavailabl e Encounter Details Date Type Department Care Team (Late st Contact Info) Description 01/03/2024 Office Communication [facility] [address] [place] [address] Soy Meléndez MD [address] [facility] [address] [place] [address] Social History Tobacco Use Types [...] on filedocumented in this encounter Care Teams Operator Cavity Pump Relationship Specialty Start Date End Date Arielle Godinez PCP - General Family Medicine 08/10/21 documented as of this encounter
[2025-03-25 11:17] LABS: Troponin-I High Sensitivity 29.6 ng/L (<3.5-35.0)
[2025-03-25 11:29] LABS: Resp Syncy Virus RNA Qual PCR NEGATIVE (Negative); SARS COV2 PCR INHOUSE NEGATIVE (Negative)
--- NOTE | 2025-03-25 11:39 | PC.NURSE ---
spoke with RPkenan at [facility] at [facility], sts that lasix 40 has not been picked up for approx 1 year, pt did have a short course of lasix 20mg on 01/15/25 but pt has not refilled it- MD notified
--- NOTE | 2025-03-25 12:07 | P.HPHOSP_ITS ---
History of Present Illness Date of Service: 03/25/25 Attending physician on admission: Jabari Ge Chief Complaint: Shortness of breaths This is a 74-year-old Turkish-speaking male with multiple medical problems including CHF who presents to the emergency department today with complaints of dyspnea and leg swelling. He was admitted to the hospital for acute CHF exacerbation on March 23 however he left against medical advice. He also left against medical advice from the Department on March 19. Today he was noted to be hypoxic on arrival with oxygen saturation of 89% on room air. Chest x-ray again shows mild vascular congestion with right pleural effusion, BNP is elevated. Patient is agreeable to stay in the hospital. He states that he has shortness of the breath while lying flat and with ambulation. He reports taking his medication as prescribed but is unsure if he takes a water pill at home however previous notes indicate that he has a history of medication noncompliance. Overall patient is somewhat vague and became frustrated in the middle my evaluation that he had to urinate and terminated the remainder of the evaluation. Review of Systems 2 Review of Systems: Yes all other systems are reviewed and are negative Constitutional: Constitutional: Denies chills and Denies fever(s) Cardiovascular: Cardiovascular: Reports dyspnea on exertion Respiratory: Respiratory: Reports dyspnea on exertion Gastrointestinal: Gastrointestinal: Denies abdominal pain [facility] Medical History Anemia in chronic kidney disease (CKD) Hypertension Uncontrolled hypertension Congestive heart failure CKD (chronic kidney disease) CHF (congestive heart failure) CKD (chronic kidney disease) stage 4, GFR 15-29 ml/min Obesity (BMI 30.0-34.9) Cardiomyopathy Stroke Chronic atrial fibrillation CKD (chronic kidney disease) Former smoker Depression Diabetes High cholesterol Family History Father No problems noted. Mother Diabetes Hypertension Cancer Son No problems noted. Son No problems noted. Son No problems noted. Daughter No problems noted. Daughter No problems noted. Surgical History History of aneurysm History of shoulder surgery Social History Household Members: None Household Members Other:: Housing: Apartment Are you a primary urgent care technician to a significant other at home: No Do you presently have visiting nurse or other home services: Yes Unable to assess alcohol history related to: Unknown Alcohol intake: never Patient Tobacco Use Status: Former Tobacco user Substance Use Type: Marijuana Advance Directives: Yes Advance Directives on File: Yes Advance Directives Date on File: 12/17/24 Nutrition Risks: No Nutritional Risk service: No Current occupational status: disabled Meds Allergies Allergy/AdvReac Type Severity Reaction Status Date / Time No Known Allergies (No Known Allergy Verified 03/25/25 10:09 Allergies*) Active Medications: Current Medications Acetaminophen (Acetaminophen 325 Mg Tablet) 650 mg PO Q6H PRN PRN Reason: Pain, Mild 1-3,fever,headache Calcium Carbonate (Calcium Carbonate 750 Mg Tab.Chew) 750 mg PO Q4H PRN PRN Reason: Heartburn Magnesium Hydroxide (Milk Of Magnesia 30 Ml Oral.Susp) 30 ml PO DAILY PRN PRN Reason: Constipation Melatonin (Melatonin 3 Mg Tablet) 6 mg PO BEDTIME PRN PRN Reason: Insomnia Ondansetron HCl (Ondansetron Hcl 4 Mg/2 Ml Vial) 4 mg IVPUSH Q8H PRN PRN Reason: Nausea and Vomiting Sodium Chloride (0.9 % Sodium Chloride Flush 3 Ml Syringe) 3 ml IVFLUSH [facility] Medications ?Medication ?Instructions ?Recorded ?Confirmed ?Last Taken ?Type blood-glucose meter #1 ea 05/14/20 01/14/24 Unkn own History lancets #100 ea 05/14/20 01/14/24 Un known History atorvastatin 40 mg tablet 40 mg PO DAILY 12/19/2203/1303/25/25 History lisinopril 40 mg tablet 40 mg PO DAILY 10/20/2403/1303/25/25 History apixaban 2.5 mg tablet (Eliquis) 2.5 mg PO BID 12/05/ 5 03/25/25 03/25/25 History furosemide 40 mg tablet 40 mg PO DAILY 03/23/2503/1303/25/25 History Physical Exam 2 Vital Signs and Narrative: Vital Signs: Last Vital Signs Temp 98.7 F 03/25/25 12:00 Pulse 87 03/25/25 12:00 Resp 20 03/25/25 12:00 BP 179/96 H 03/25/25 12:00 Pulse Ox 94 03/25/25 12:00 O2 Del Method Nasal Cannula 03/25/25 12:00 O2 Flow Rate 2 03/25/25 12:00 BMI result Body Mass Index 32.7 Const: General: alert and awake Nutritional Appearance: overweight Resp: Effort & Inspection: normal respiratory effort, able to speak in complete sentences, no respiratory distress and no use of accessory muscles Cardio: Rate: regular rate Extrem: Other: 3+ pitting edema b/l Results Labs 03/25/25 10:40 03/25/25 10:40 Labs: Laboratory Results - last 24 hr 03/25/25 03/25/25 10:40 10:58 MCV 87.3 MCH 26.7 L MCHC 30.6 L RDW 17.3 H Plt Count 193 MPV 9.2 L Immature Gran % (Auto) 0.4 Neut % (Auto) 78.2 H Lymph % (Auto) 14.1 L [place] % (Auto) 6.1 Eos % (Auto) 1.0 Baso % (Auto) 0.2 Lymph # (Auto) 0.7 L [place] # (Auto) 0.3 Eos # (Auto) 0.1 Baso # (Auto) 0.0 Abs Immat Gran (auto) 0.02 Absolute Neuts (auto) 3.8 Absolute Nucleated RBC 0.000 Nucleated RBC % (auto) 0.0 VBG pH 7.46 H VBG pCO2 28 VBG pO2 83 VBG HCO3 20 L VBG O2 Saturation 96.0 VBG Base Excess -1.5 Anion Gap 14 Estim Creat Clear Calc 38.2 Estimated GFR 33 Random Glucose 87 Calcium 8.7 D Magnesium 1.8 Total Bilirubin 1.4 H Direct Bilirubin 0.6 H AST 30 ALT 16 Alkaline Phosphatase 160 H B-Natriuretic Peptide 2141 H Total Protein 6.8 Albumin 3.1 L Influenza Type A (PCR) NEGATIVE Influenza Type B (PCR) NEGATIVE RSV RNA Qual (PCR) NEGATIVE SARS-CoV-2 RNA (RT-PCR) NEGATIVE Imaging Radiologist's Impressions: Impressions Chest X-Ray 03/25/25 09:06 IMPRESSION: Cardiomegaly, mild pulmonary vascular congestion, and a small to moderate right pleural effusion. Underlying atelectasis or pneumonia at the right lung base is not excluded. Electronically signed by: Cornelio Flores MD 03/25/2025 10:20 AM EDT RP Assessment and Plan (1) Acute exacerbation of CHF (congestive heart failure): Qualifiers: Heart failure type: unspecified Qualified Code(s): I50.9 - Heart failure, unspecified Status: Acute Plan This is a 74-year-old male with a PMH significant for?HFpEF (LVEF 52%), AFib on Eliquis, [id number] type 2 diabetes, HTN, HLD, CAD, hyperparathyroidism, duodenal ulcer, and cognitive impairment who presents to the ED with SOB/FRANCIS. Pt is admitted to the hospital for treatment and further evaluation of acute hypoxic respiratory failure in the setting of CHF exacerbation. Acute hypoxic respiratory failure in the setting of CHF exacerbation Pt with SOB, FRANCIS, CXR with pulmonary edema and pleural effusion, edema, elevated BNP, and desatting to 89% on RA Question of medication compliance at home Echo 12/05/24 with LVEF 52%, mild pulm HTN Will treat with Lasix 40mg IV bid low albumin likely contributing to leg edema Follow I/O, BMP, BNP Titrate supplemental O2 >92, wean as tolerated Monitor on telemetry right pleural effusion, chronic had thoracentesis in November, pathology negative for malignancy cognitive impairment left ama 03/23; d/c note indicates need for capacity evaluation psych consulted T2DM check hba1c SSI, POCs, ADA diet HTN bp uncontrolled resume amlodipine, carvedilol, lisinopril Persistent AFib Continue carvedilol and Eliquis HLD/CAD Continue atorvastatin chronic normocytic anemia H/H at baseline Continue iron supplementation CKD3 renal function at baseline GERD Continue Full Code DVT Prophylaxis: Eliquis Pt will require a hospitalization of at least two nights for treatment of?acute hypoxic respiratory failure in the setting of CHF exacerbation. Pt will require hospital level care for administration of supplemental oxygen, IV diuretics, and close monitoring of labs and cardiac function Quality Stroke Does the patient have a stroke diagnosis?: No VTE Prior VTE?: No VTE Risk Level:: Medical - moderate - high VTE Device Contraindication: Treatment Not Indicated VTE Drug Contraindication: N/A - Med Ordered
--- NOTE | 2025-03-25 12:21 | PC.NURSE ---
Male purewic applied at this time to monitor I&O of urine output for CHF, post IVF lasix
[2025-03-25 13:13] LABS: Hemoglobin A1C 85.1816 umol/L; Total Hemoglobin (HGBA1C) 2360.2554 umol/L
--- NOTE | 2025-03-25 14:07 | PHA.MEDREC ---
Addendum entered by Corwin Grigsby PharmD 03/25/25 15:08: reviewed Original Note: Pharmacy Consult ? Medication Reconciliation Pharmacy has completed the medication reconciliation. Spoke with pt and he was a poor historian with his medications but was able to confirm he took his morning medications this morning (including the Eliquis). Got a list from an office visit (at [facility]) dated for today and I utilized claims to confirm the med rec.
--- NOTE | 2025-03-25 15:55 | PM.PSYCN ---
History of Present Illness Date of Service: 03/25/25 Chief Complaint: CHF Reason for Consult: capacity eval Requesting physician: Gladys Villavicencio Discussed with referring provider: Yes Sources of Information: patient interviewed and chart reviewed HPI Narrative: Patient is a 74-year-old male with CHF who presents to the emergency department with complaints of dyspnea and leg swelling. He was admitted to the hospital for acute CHF exacerbation on March 23 however he left against medical advice. Psychiatric consult placed for: capacity eval for medical decision making During psychiatric assessment, medical coding specialist present. Patient presents alert and oriented x3. Calm and cooperative. Patient was able to express what brought him to the hospital and his medical concerns. Patient stated, I was having breathing problems so I walked to [facility] to get help . Patient was able to express understanding of proposed treatment and appreciate foreseeable consequences of refusing treatment. Patient stated, They want to keep me here and drain the water to fix my legs and to help me breathe better. My legs have been swollen for a week. I was worried, that's why I went to get help. I know I should stay here and get treatment. I'm not going anywhere. I know that if I don't get help I could get worse and could . Patient denies depression. He denies SI. Patient presents to have capacity for medical decision-making at this time. Medical Evaluation Reviewed: Yes [facility] Medical History Anemia in chronic kidney disease (CKD) Hypertension Uncontrolled hypertension Congestive heart failure CKD (chronic kidney disease) CHF (congestive heart failure) CKD (chronic kidney disease) stage 4, GFR 15-29 ml/min Obesity (BMI 30.0-34.9) Cardiomyopathy Stroke Chronic atrial fibrillation CKD (chronic kidney disease) Former smoker Depression Diabetes High cholesterol Surgical History History of aneurysm History of shoulder surgery Diagnostics Vital Signs (24Hr): Vital Signs - 24 hr 03/25/25 10:05 03/25/25 10:10 03/25/25 10:19 Temperature 98.1 F Pulse Rate 69 Pulse Rate [Apical] 88 Respiratory Rate 18 18 Blood Pressure 173/87 H Pulse Oximetry 88 L 92 Oxygen Delivery Method Room Air Nasal Cannula Oxygen Flow Rate 2 03/25/25 11:01 03/25/25 12:00 03/25/25 14:14 Temperature 98.7 F 97.5 F Pulse Rate 87 58 Pulse Rate [Apical] Respiratory Rate 20 18 Blood Pressure 177/84 H 179/96 H 179/84 H Pulse Oximetry 94 96 Oxygen Delivery Method Nasal Cannula Nasal Cannula Oxygen Flow Rate 2 2 BMI result Body Mass Index 32.7 Labs 03/25/25 10:40 03/25/25 10:40 Labs: Laboratory Results - last 48 hr 03/25/25 03/25/25 10:40 10:58 WBC 4.9 RBC 3.22 L Hgb 8.6 L Hct 28.1 L MCV 87.3 MCH 26.7 L MCHC 30.6 L RDW 17.3 H Plt Count 193 MPV 9.2 L Immature Gran % (Auto) 0.4 Neut % (Auto) 78.2 H Lymph % (Auto) 14.1 L [place] % (Auto) 6.1 Eos % (Auto) 1.0 Baso % (Auto) 0.2 Lymph # (Auto) 0.7 L [place] # (Auto) 0.3 Eos # (Auto) 0.1 Baso # (Auto) 0.0 Abs Immat Gran (auto) 0.02 Absolute Neuts (auto) 3.8 Absolute Nucleated RBC 0.000 Nucleated RBC % (auto) 0.0 VBG pH 7.46 H VBG pCO2 28 VBG pO2 83 VBG HCO3 20 L VBG O2 Saturation 96.0 VBG Base Excess -1.5 Sodium 141 Potassium 3.5 Chloride 111 H Carbon Dioxide 20 L Anion Gap 14 BUN 46 H Creatinine 1.98 H Estim Creat Clear Calc 38.2 Estimated GFR 33 Random Glucose 87 Estimat Average Glucose 111 Hemoglobin A1c % 5.5 Calcium 8.7 D Magnesium 1.8 Total Bilirubin 1.4 H Direct Bilirubin 0.6 H AST 30 ALT 16 Alkaline Phosphatase 160 H Troponin I High Sens 29.6 B-Natriuretic Peptide 2141 H Total Protein 6.8 Albumin 3.1 L Influenza Type A (PCR) NEGATIVE Influenza Type B (PCR) NEGATIVE RSV RNA Qual (PCR) NEGATIVE SARS-CoV-2 RNA (RT-PCR) NEGATIVE Imaging Radiology Impressions: ITS Impressions Chest X-Ray 03/25/25 09:06 IMPRESSION: Cardiomegaly, mild pulmonary vascular congestion, and a small to moderate right pleural effusion. Underlying atelectasis or pneumonia at the right lung base is not excluded. Electronically signed by: Cornelio Flores MD 03/25/2025 10:20 AM EDT RP Mental Status Exam Mental Status Exam Patient Appearance: Appropriate Patient Orientation: Person, Place, Time and Situation Level of Consciousness: Awake and Alert Patient Behavior: Appropriate, Cooperative and Good Eye Contact Mood Description: Calm Affect Description: Calm Ability to Follow Directions: Good Speech Pattern: Clear Memory Description: Intact Hallucinations: None Delusions: Not Present Thought Process: Intact Thought Content: positive for Intact Medications Medications Current Medications Acetaminophen (Acetaminophen 325 Mg Tablet) 650 mg PO Q6H PRN PRN Reason: Pain, Mild 1-3,fever,headache Amlodipine Besylate (Amlodipine Besylate 5 Mg Tablet) 5 mg PO DAILY [facility]; Protocol Apixaban (Apixaban 2.5 Mg Tablet) 2.5 mg PO BID [facility] Atorvastatin Calcium (Atorvastatin Calcium 40 Mg Tablet) 40 mg PO DAILY [facility] Calcitriol (Calcitriol 0.25 Mcg Capsule) 0.25 mcg PO Q2D [facility] Calcium Carbonate (Calcium Carbonate 750 Mg Tab.Chew) 750 mg PO Q4H PRN PRN Reason: Heartburn Carvedilol (Carvedilol 6.25 Mg Tablet) 6.25 mg PO BID [facility]; Protocol Dextrose (Dextrose 50 % 25 Gm/50 Ml Syringe) 25 gm IVPUSH Q15M PRN; Protocol PRN Reason: per Hypoglycemia Standing Ord. Ferrous Sulfate (Ferrous Sulfate 324 Mg Tablet.) 324 mg PO BID [facility] Furosemide (Furosemide 40 Mg/4 Ml Vial) 40 mg IVPUSH BID@0900,1800 [facility]; Protocol Glucose (Glucose Gel 15 Gm Gel..Gram.) 15 gm PO Q15M PRN; Protocol PRN Reason: per Hypoglycemia Standing Ord. Insulin Human Lispro (Insulin Lispro 100 Unit/Ml 3 Ml Vial) 0 unit SUBCUT QIDACHS [facility]; Protocol Lisinopril (Lisinopril 40 Mg Tablet) 40 mg PO DAILY [facility]; Protocol Magnesium Hydroxide (Milk Of Magnesia 30 Ml Oral.Susp) 30 ml PO DAILY PRN PRN Reason: Constipation Melatonin (Melatonin 3 Mg Tablet) 6 mg PO BEDTIME PRN PRN Reason: Insomnia Omeprazole (Omeprazole 40 Mg Capsule.) 40 mg PO BID@0630,1630 [facility] Ondansetron HCl (Ondansetron Hcl 4 Mg/2 Ml Vial) 4 mg IVPUSH Q8H PRN PRN Reason: Nausea and Vomiting Sodium Chloride (0.9 % Sodium Chloride Flush 3 Ml Syringe) 3 ml IVFLUSH QSHIFT [facility] Allergies Allergies Allergy/AdvReac Type Severity Reaction Status Date / Time No Known Allergies (No Known Allergy Verified 03/25/25 10:09 Allergies*) Assessment & Plan Assessment & Plan (1) Encounter for assessment of healthcare decision-making capacity: Status: Acute Code(s): Z02.79 - Encounter for issue of other medical certificate Plan -Patient presents to have capacity for medical decision-making at this time. -Re-consult if needed. Total time managing care of this patient today _30___ minutes.
[2025-03-25] MEDS: 0.9 % Sodium Chloride Flush 3 ML SYRINGE IVFLUSH (16:05)
[2025-03-25 17:49] LABS: Glucose, Whole Blood 102 mg/dL (60-115)
--- NOTE | 2025-03-25 18:43 | PC.NURSE ---
Pt continuing to mention multiple times that he wants to go home, pt educated on why he should stay. Multiple providers have already asked if he was going to stay prior to admitting him and he was in agreement. It is unclear if patient is fully understanding the risks and benefits of leaving, pt given education on his current conditions and medications that he is getting. PA made aware.
[2025-03-25] MEDS: Ferrous Sulfate 324 MG TABLET.DR PO (20:24)
[2025-03-25 20:27] LABS: Glucose, Whole Blood 112 mg/dL (60-115)
[2025-03-26] VITALS (11 sets, daily range): BP systolic 157–180; BP diastolic 72–88; PULSE 51–72; RESP 16–20; TEMP 35.8–37.1; O2SAT 93–99
--- NOTE | 2025-03-26 | ECG_ITS ---
Test Reason : left armpit pain Blood Pressure : */* mmHG Vent. Rate : 60 BPM Atrial Rate : * BPM P-R Int : * ms QRS Dur : 92 ms QT Int : 490 ms P-R-T Axes : * -7 114 degrees QTcB Int : 490 ms Atrial fibrillation with a competing junctional pacemaker Minimal voltage criteria for LVH, may be normal variant ( [place] product ) Nonspecific T wave abnormality Abnormal ECG When compared with ECG of 25-Mar-2025 10:03, Nonspecific T wave abnormality, improved in Inferior leads Nonspecific T wave abnormality now evident in Anterior leads Referred By: Michelle Schuster Electronically Signed By: Ash Pedersen
--- NOTE | 2025-03-26 00:58 | PC.NURSE ---
Pt with complaints of left armpit pain. Plan for EKG at this time per Dr. Jair Schuster
[2025-03-26] MEDS: 0.9 % Sodium Chloride Flush 3 ML SYRINGE IVFLUSH ×3 (01:01→16:25)
[2025-03-26 01:44] LABS: Troponin-I High Sensitivity 24.4 ng/L (<3.5-35.0)
[2025-03-26 06:36] LABS: Anion Gap 15 (12-20); Blood Urea Nitrogen 47 mg/dL (9-16); Calcium 8.7 mg/dL (8.4-10.2); Carbon Dioxide 23 mmol/L (22-29); Chloride 109 mmol/L (96-108); Creatinine Clr Calc Pharmacy 36.3; Estimated Glomerular Filt Rate 32; Potassium 3.4 mmol/L (3.3-5.1); Sodium 144 mmol/L (135-145)
[2025-03-26 06:39] LABS: B Type Natriuretic Peptide 2229 pg/mL (<100)
[2025-03-26 07:01] LABS: Glucose, Whole Blood 102 mg/dL (60-115)
[2025-03-26] MEDS: Ferrous Sulfate 324 MG TABLET.DR PO (08:33)
[2025-03-26] MEDS: Furosemide 40 MG/4 ML VIAL IVPUSH ×2 (08:34→17:21)
--- NOTE | 2025-03-26 09:51 | MHC.CM.PN ---
Per request, CM spoke with Daughter/HCP/Esha @ [phone] and addressed IMM with her (original IMM will be mailed to daughter @ [address] in [place] and a copy will be placed on the chart). Patient lives alone in an apartment, has a cane and a [facility] Nurse once per week (med box). Home/resume said services is Patient's goal and CM has initiated and will follow for dc planning. Per Psych, Patient has capacity(refuses home services, STR history of AMAs). PCP is Dr. Cortez and Daughter will transport to home if home is the final plan.
[2025-03-26 12:16] LABS: Glucose, Whole Blood 108 mg/dL (60-115)
[2025-03-26 13:33] LABS: Glucose, Whole Blood 110 mg/dL (60-115)
--- NOTE | 2025-03-26 15:45 | PM.CNCAR ---
History of Present Illness History of Present Illness Date of Service: 03/26/25 Chief complaint: CHF Narrative: Pleasant 74 year gentleman presenting with shortness of breath and congestive heart failure. He has background of CKD stage IIIB and echocardiography previously showing inferior inferolateral wall motion abnormalities with low normal ejection fraction. He has hypertension which is poorly controlled. He is saying that his breathing is improving. He is denying any chest discomfort. He continues to be on some supplemental oxygen at this point. On IV diuretics currently. He was taking 40 mg p.o. Lasix at home and is currently on IV b.i.d. 40 mg. [facility] Past Medical History Medical History Anemia in chronic kidney disease (CKD) Hypertension Uncontrolled hypertension Congestive heart failure CKD (chronic kidney disease) CHF (congestive heart failure) CKD (chronic kidney disease) stage 4, GFR 15-29 ml/min Obesity (BMI 30.0-34.9) Cardiomyopathy Stroke Chronic atrial fibrillation CKD (chronic kidney disease) Former smoker Depression Diabetes High cholesterol Family History Family History Father No problems noted. Mother Diabetes Hypertension Cancer Son No problems noted. Son No problems noted. Son No problems noted. Daughter No problems noted. Daughter No problems noted. Surgical History Surgical History History of aneurysm History of shoulder surgery Social History Social History Household Members: None Household Members Other:: Housing: Apartment Are you a primary neonatal intensive care unit nurse to a significant other at home: No Do you presently have visiting nurse or other home services: Yes Unable to assess alcohol history related to: Unknown Alcohol intake: never Patient Tobacco Use Status: Former Tobacco user Substance Use Type: Marijuana Advance Directives Date on File: 12/17/24 service: No Current occupational status: disabled Meds Allergies Allergy/AdvReac Type Severity Reaction Status Date / Time No Known Allergies (No Known Allergy Verified 03/25/25 10:09 Allergies*) Active Medications: Current Medications Acetaminophen (Acetaminophen 325 Mg Tablet) 650 mg PO Q6H PRN PRN Reason: Pain, Mild 1-3,fever,headache Apixaban (Apixaban 2.5 Mg Tablet) 2.5 mg PO BID [facility] Last Admin: 03/26/25 08:32 Dose: 2.5 mg Atorvastatin Calcium (Atorvastatin Calcium 40 Mg Tablet) 40 mg PO DAILY [facility] Last Admin: 03/26/25 08:33 Dose: 40 mg Calcitriol (Calcitriol 0.25 Mcg Capsule) 0.25 mcg PO Q2D [facility] Last Admin: 03/25/25 16:03 Dose: 0.25 mcg Calcium Carbonate (Calcium Carbonate 750 Mg Tab.Chew) 750 mg PO Q4H PRN PRN Reason: Heartburn Carvedilol (Carvedilol 6.25 Mg Tablet) 6.25 mg PO BID [facility]; Protocol Last Admin: 03/26/25 08:33 Dose: 6.25 mg Dextrose (Dextrose 50 % 25 Gm/50 Ml Syringe) 25 gm IVPUSH Q15M PRN; Protocol PRN Reason: per Hypoglycemia Standing Ord. Ferrous Sulfate (Ferrous Sulfate 324 Mg Tablet.) 324 mg PO BID [facility] Last Admin: 03/26/25 08:33 Dose: 324 mg Furosemide (Furosemide 40 Mg/4 Ml Vial) 40 mg IVPUSH BID@0900,1800 [facility]; Protocol Last Admin: 03/26/25 08:34 Dose: 40 mg Glucose (Glucose Gel 15 Gm Gel..Gram.) 15 gm PO Q15M PRN; Protocol PRN Reason: per Hypoglycemia Standing Ord. Hydromorphone HCl (Hydromorphone Hcl 0.5 Mg/0.5 Ml Syringe) 0.5 mg IVPUSH Q4H PRN; Protocol PRN Reason: Pain, Severe (Pain Scale 7-10) Insulin Human Lispro (Insulin Lispro 100 Unit/Ml 3 Ml Vial) 0 unit SUBCUT QIDACHS [facility]; Protocol Last Admin: 03/26/25 13:30 Dose: Not Given Lisinopril (Lisinopril 40 Mg Tablet) 40 mg PO DAILY [facility]; Protocol Last Admin: 03/26/25 08:32 Dose: 40 mg Magnesium Hydroxide (Milk Of Magnesia 30 Ml Oral.Susp) 30 ml PO DAILY PRN PRN Reason: Constipation Melatonin (Melatonin 3 Mg Tablet) 6 mg PO BEDTIME PRN PRN Reason: Insomnia Last Admin: 03/25/25 20:24 Dose: 6 mg Omeprazole (Omeprazole 40 Mg Capsule.) 40 mg PO BID@0630,1630 [facility] Last Admin: 03/26/25 07:06 Dose: 40 mg Ondansetron HCl (Ondansetron Hcl 4 Mg/2 Ml Vial) 4 mg IVPUSH Q8H PRN PRN Reason: Nausea and Vomiting Sodium Chloride (0.9 % Sodium Chloride Flush 3 Ml Syringe) 3 ml IVFLUSH QSHIFT [facility] Last Admin: 03/26/25 07:16 Dose: 3 ml Home Medications ?Medication ?Instructions ?Recorded ?Confirmed ?Last Taken ?Type blood-glucose meter #1 ea 05/14/20 01/14/24 Unknown History lancets #100 ea 05/14/20 01/14/24 Unknown History atorvastatin 40 mg tablet 40 mg PO DAILY 12/19/22 03/25/25 03/25/25 History lisinopril 40 mg tablet 40 mg PO DAILY 10/20/24 03/25/25 03/25/25 History apixaban 2.5 mg tablet (Eliquis) 2.5 mg PO BID 12/05/24 03/25/25 03/25/25 History furosemide 40 mg tablet 40 mg PO DAILY 03/23/25 03/25/25 03/25/25 History Physical Exam Vital Signs: Vital Signs: Last Vital Signs Temp 96.8 F 03/26/25 15:34 Pulse 59 03/26/25 15:34 Resp 18 03/26/25 15:34 BP 175/77 H 03/26/25 15:34 Pulse Ox 93 03/26/25 15:34 O2 Del Method Nasal Cannula 03/26/25 15:34 O2 Flow Rate 3 03/26/25 15:34 BMI result Body Mass Index 32.7 GENERAL APPEARANCE: in no acute distress, pleasant. NECK: no carotid bruit, no jugular venous distention. Positive hepatojugular reflux. SKIN: no suspicious lesions, warm and dry. HEART: no murmurs, regular rate and rhythm. LUNGS: clear to auscultation bilaterally. ABDOMEN: soft, nontender. EXTREMITIES: + edema. PERIPHERAL PULSES: equal. NEUROLOGIC: No gross deficits, AAO X 3 Objective Labs and Meds 03/25/25 10:40 03/26/25 06:09 Lab results: Laboratory Results - last 24 hr 03/25/25 03/25/25 03/26/25 17:40 20:19 01:20 Sodium Potassium Chloride Carbon Dioxide Anion Gap BUN Creatinine Estim Creat Clear Calc Estimated GFR POC Glucose 102 112 Random Glucose Calcium Troponin I High Sens 24.4 B-Natriuretic Peptide 03/26/25 03/26/25 03/26/25 06:09 06:58 12:11 Sodium 144 Potassium 3.4 Chloride 109 H Carbon Dioxide 23 Anion Gap 15 BUN 47 H Creatinine 2.08 H Estim Creat Clear Calc 36.3 Estimated GFR 32 POC Glucose 102 108 Random Glucose 103 Calcium 8.7 Troponin I High Sens B-Natriuretic Peptide 2229 H 03/26/25 13:30 Sodium Potassium Chloride Carbon Dioxide Anion Gap BUN Creatinine Estim Creat Clear Calc Estimated GFR POC Glucose 110 Random Glucose Calcium Troponin I High Sens B-Natriuretic Peptide Assessment and Plan (1) Acute exacerbation of CHF (congestive heart failure): Qualifiers: Heart failure type: unspecified Qualified Code(s): I50.9 - Heart failure, unspecified Status: Acute Plan [age] year gentleman presenting with acute decompensated congestive heart failure. This is in the setting of elevated blood pressure and low normal ejection fraction by echocardiography as well as wall motion abnormalities in the inferior inferolateral keene. Denying any anginal symptoms currently. Blood pressure is elevated and has a likely reason for decompensation of heart failure. Increase amlodipine to 5 mg twice a day. Continue IV diuretics 40 mg IV b.i.d.. We will reassess him tomorrow for oral diuretics. Would favor putting him on 40 mg twice a day Lasix at discharge. He will need further workup as outpatient. Thank you for allowing me to participate in the care of your patient. Please feel free to contact me if you have any questions. Procedures Date of Service Date of Service: 03/26/25
--- NOTE | 2025-03-26 16:03 | P.PNIM_ITS ---
Subjective Subjective Date of Service: 03/26/25 Interval History: seen and examined this morning follow up for fluid overload patient reports feeling better; still requiring oxygen Review of Systems Review of Systems: Yes all other systems are reviewed and are negative Constitutional Constitutional: Denies chills and Denies fever(s) Cardiovascular Cardiovascular: Denies chest pain, Denies palpitations and Denies dyspnea Respiratory Respiratory: Denies cough and Denies dyspnea Gastrointestinal Gastrointestinal: Denies abdominal pain, Denies nausea and Denies vomiting Endocrine Endocrine: Denies palpitations Physical Exam 2 Vital Signs: Vital Signs: Last Vital Signs Temp 96.8 F 03/26/25 15:34 Pulse 59 03/26/25 15:34 Resp 18 03/26/25 15:34 BP 175/77 H 03/26/25 15:34 Pulse Ox 93 03/26/25 15:34 O2 Del Method Nasal Cannula 03/26/25 15:34 O2 Flow Rate 3 03/26/25 15:34 BMI result Body Mass Index 32.7 Const: General: cooperative, comfortable, alert and awake Nutritional Appearance: overweight Resp: Effort & Inspection: normal respiratory effort, able to speak in complete sentences, no respiratory distress and no use of accessory muscles Cardio: Rate: regular rate Extrem: Other: 3+ pitting edema b/l Objective Data Active Medications Acetaminophen (Acetaminophen 325 Mg Tablet) 650 mg PO Q6H PRN PRN Reason: Pain, Mild 1-3,fever,headache Amlodipine Besylate (Amlodipine Besylate 5 Mg Tablet) 5 mg PO BID [facility]; Protocol Apixaban (Apixaban 2.5 Mg Tablet) 2.5 mg PO BID [facility] Last Admin: 03/26/25 08:32 Dose: 2.5 mg Documented By: MIO Atorvastatin Calcium (Atorvastatin Calcium 40 Mg Tablet) 40 mg PO DAILY [facility] Last Admin: 03/26/25 08:33 Dose: 40 mg Documented By: MIO Calcitriol (Calcitriol 0.25 Mcg Capsule) 0.25 mcg PO Q2D [facility] Last Admin: 03/25/25 16:03 Dose: 0.25 mcg Documented By: OSEI Calcium Carbonate (Calcium Carbonate 750 Mg Tab.Chew) 750 mg PO Q4H PRN PRN Reason: Heartburn Carvedilol (Carvedilol 6.25 Mg Tablet) 6.25 mg PO BID [facility]; Protocol Last Admin: 03/26/25 08:33 Dose: 6.25 mg Documented By: MIO Dextrose (Dextrose 50 % 25 Gm/50 Ml Syringe) 25 gm IVPUSH Q15M PRN; Protocol PRN Reason: per Hypoglycemia Standing Ord. Ferrous Sulfate (Ferrous Sulfate 324 Mg Tablet.) 324 mg PO BID [facility] Last Admin: 03/26/25 08:33 Dose: 324 mg Documented By: MIO Furosemide (Furosemide 40 Mg/4 Ml Vial) 40 mg IVPUSH BID@0900,1800 [facility]; Protocol Last Admin: 03/26/25 08:34 Dose: 40 mg Documented By: MIO Glucose (Glucose Gel 15 Gm Gel..Gram.) 15 gm PO Q15M PRN; Protocol PRN Reason: per Hypoglycemia Standing Ord. Hydromorphone HCl (Hydromorphone Hcl 0.5 Mg/0.5 Ml Syringe) 0.5 mg IVPUSH Q4H PRN; Protocol PRN Reason: Pain, Severe (Pain Scale 7-10) Insulin Human Lispro (Insulin Lispro 100 Unit/Ml 3 Ml Vial) 0 unit SUBCUT QIDACHS [facility]; Protocol Last Admin: 03/26/25 13:30 Dose: Not Given Documented By: DAQUAN Non-Admin Reason: No Insulin Coverage Comments: POC 110 no insulin needed per sliding scale order. Lisinopril (Lisinopril 40 Mg Tablet) 40 mg PO DAILY [facility]; Protocol Last Admin: 03/26/25 08:32 Dose: 40 mg Documented By: MIO Magnesium Hydroxide (Milk Of Magnesia 30 Ml Oral.Susp) 30 ml PO DAILY PRN PRN Reason: Constipation Melatonin (Melatonin 3 Mg Tablet) 6 mg PO BEDTIME PRN PRN Reason: Insomnia Last Admin: 03/25/25 20:24 Dose: 6 mg Documented By: LUANA Omeprazole (Omeprazole 40 Mg Capsule.) 40 mg PO BID@0630,1630 [facility] Last Admin: 03/26/25 07:06 Dose: 40 mg Documented By: BATSHEVA Ondansetron HCl (Ondansetron Hcl 4 Mg/2 Ml Vial) 4 mg IVPUSH Q8H PRN PRN Reason: Nausea and Vomiting Sodium Chloride (0.9 % Sodium Chloride Flush 3 Ml Syringe) 3 ml IVFLUSH QSHIFT [facility] Last Admin: 03/26/25 07:16 Dose: 3 ml Documented By: BATSHEVA Labs 03/25/25 10:40 03/26/25 06:09 Labs: Laboratory Results - last 24 hr 03/25/25 03/25/25 03/26/25 17:40 20:19 06:09 Anion Gap 15 Estim Creat Clear Calc 36.3 Estimated GFR 32 POC Glucose 102 112 Random Glucose 103 Calcium 8.7 B-Natriuretic Peptide 2229 H 03/26/25 03/26/25 03/26/25 06:58 12:11 13:30 Anion Gap Estim Creat Clear Calc Estimated GFR POC Glucose 102 108 110 Random Glucose Calcium B-Natriuretic Peptide Assessment and Plan (1) Acute exacerbation of CHF (congestive heart failure): Status: Acute Plan This is a 74-year-old male with a PMH significant for?HFpEF (LVEF 52%), AFib on Eliquis, [id number] type 2 diabetes, HTN, HLD, CAD, hyperparathyroidism, duodenal ulcer, and cognitive impairment who presents to the ED with SOB/FRANCIS. Pt is admitted to the hospital for treatment and further evaluation of acute hypoxic respiratory failure in the setting of CHF exacerbation. Acute hypoxic respiratory failure in the setting of acute exacerbation of HFpEF Pt with SOB, FRANCIS, CXR with pulmonary edema and pleural effusion, edema, elevated BNP, and desatting to 89% on RA Question of medication compliance at home Echo 12/05/24 with LVEF 52%, mild pulm HTN continue Lasix 40mg IV bid negative almost 5L low albumin likely contributing to leg edema Follow I/O, BMP, BNP Titrate supplemental O2 >92, wean as tolerated Monitor on telemetry right pleural effusion, chronic had thoracentesis in November, pathology negative for malignancy cognitive impairment left ama multiple times seen by psych - has capacity to make medical decisions T2DM hba1c 5.5 POCs normal continue SSI, ADA diet HTN bp uncontrolled continue carvedilol, lisinopril increase norvasc to bid Persistent AFib Continue carvedilol and Eliquis HLD/CAD Continue atorvastatin chronic normocytic anemia H/H at baseline Continue iron supplementation CKD3 renal function at baseline GERD Continue Full Code DVT Prophylaxis: Eliquis requires ongoing inpatient stay for acute hypoxic respiratory failure in the setting of CHF exacerbation. Pt will require hospital level care for administration of supplemental oxygen, IV diuretics, and close monitoring of labs and cardiac function Quality Stroke Does the patient have a stroke diagnosis?: No VTE Prior VTE?: No VTE Risk Level:: Medical - moderate - high VTE Device Contraindication: Treatment Not Indicated VTE Drug Contraindication: N/A - Med Ordered
[2025-03-26 16:17] LABS: Glucose, Whole Blood 147 mg/dL (60-115)
--- NOTE | 2025-03-26 18:31 | PC.NURSE ---
Addendum entered by Brigette Choi RN 03/26/25 19:10: At 1900 pt has left AMA despite the education; IV removed and Form signed; Original Note: At 1800, pt became very agitated, frustrated and anxious , very adamant of leaving the hospital. Pt refused scheduled IV magnesium and PO potassium. This RN has explained the risks of leaving; Pt still refusing to listen, has removed his O2 NC, and tele monitor, yelling out that he wants to leave; Dr. Edward at the bed side to explain the risks of leaving, pt expressed understating about the risks of leaving; Pt still refusing to put his O2 NC back and tele monitor; Attempted to call family member;
--- NOTE | 2025-03-26 18:43 | PC.NURSE ---
At 1740 Pt had 5 beats VT; This RN has assessed the pt, and pt asymptomatic; Gladys Villavicencio has been notified about the Heart rhythm, and has ordered Magnesium IV and Potassium chloride PO. This RN attempted to administer the meds to the pt but pt has refused, stating that he is leaving [place].
--- NOTE | 2025-03-26 18:53 | PM.EVENT ---
Event Note Date of Service: 03/26/25 Event Note: Patient adamant to leave against medical advice. He understands he is in the hospital for shortness breath and CHF and does not want any treatment. Psych note reviewed and confirms that he does have capacity to leave against medical advice Time Spent With Patient Time: Total time managing care of this patient today ____ minutes.
--- NOTE | 2025-04-04 09:04 | P.DS_ITS ---
DS: Providers Provider Date of Service: 03/26/25 Date of discharge: 03/26/25 Primary care physician: Blanca Anderson MD Attending physician on discharge: Stefan Edward Discharging clinician: Gladys Villavicencio DS: Summary Hospital Course Hospital Course: From H&P on the day of admission This is a 74-year-old Danish-speaking male with multiple medical problems including CHF who presents to the emergency department today with complaints of dyspnea and leg swelling. He was admitted to the hospital for acute CHF exacerbation on March 23 however he left against medical advice. He also left against medical advice from the Department on March 19. Today he was noted to be hypoxic on arrival with oxygen saturation of 89% on room air. Chest x-ray again shows mild vascular congestion with right pleural effusion, BNP is elevated. Patient is agreeable to stay in the hospital. He states that he has shortness of the breath while lying flat and with ambulation. He reports taking his medication as prescribed but is unsure if he takes a water pill at home however previous notes indicate that he has a history of medication noncompliance. Overall patient is somewhat vague and became frustrated in the middle my evaluation that he had to urinate and terminated the remainder of the evaluation. Acute hypoxic respiratory failure in the setting of acute exacerbation of HFpEF/right pleural effusion Pt with SOB, FRANCIS, CXR with pulmonary edema and pleural effusion, edema, elevated BNP, and desatting to 89% on RA. Treated with IV lasix. Diuresing well. Unfortunately on the evening of 03/26, the patient decided to leave ama again. The risks of leaving were discussed and he understands. He has left AMA pablo previous times and therefore he was seen by the psychiatric team and deemed to have capacity to make medical decisions. Time Attestation Discharge Coordination Time (in mins): 30 Quality: Safe Use of Opioids Does Pt have an Active Cancer Diagnosis on the Problem List?: No Quality: Stroke Does the patient have a stroke diagnosis?: No Physical Exam Vital Signs: Vital Signs: Last Vital Signs Temp 97.8 F 04/04/25 07:11 Pulse 70 04/04/25 07:11 Resp 19 04/04/25 07:11 BP 164/57 H 04/04/25 07:11 Pulse Ox 98 04/04/25 08:30 O2 Del Method Nasal Cannula 04/04/25 08:30 O2 Flow Rate 2 04/04/25 08:30 BMI result Body Mass Index 27.4 Const: Other: see progress note on the day of discharge, physical exam unchanged. DS: Data Data Completed and Pending Completed studies during hospitalization [Text1]: Procedures Dilation of Cystic Duct with Intraluminal Device, Via Natural or Artificial Opening Endoscopic (11/12/24) Drainage of Peritoneal Cavity with Drainage Device, Percutaneous Approach (11/12/24) Drainage of Peritoneal Cavity, Percutaneous Approach (11/12/24) Drainage of Right Pleural Cavity, Percutaneous Approach (12/04/24) Excision of Duodenum, Via Natural or Artificial Opening Endoscopic, Diagnostic (12/19/22) Excision of Esophagogastric Junction, Via Natural or Artificial Opening E ndoscopic, Diagnostic (12/19/22) Excision of Stomach, Pylorus, Via Natural or Artificial Opening Endoscopic, Diagnostic (12/04/24) Inspection of Upper Intestinal Tract, Via Natural or Artificial Opening Endoscopic (11/12/24) Resection of Gallbladder, Percutaneous Endoscopic Approach (10/20/24) Transfusion of Nonautologous Red Blood Cells into Peripheral Vein, Percutaneous Approach (12/04/24) Labs on day of discharge: Laboratory Results - last 24 hr 04/04/25 04/04/25 07:42 07:48 WBC 4.6 L RBC 3.25 L Hgb 8.6 L Hct 28.0 L MCV 86.2 MCH 26.5 L MCHC 30.7 L RDW 17.8 H Plt Count 171 MPV 9.0 L Immature Gran % (Auto) 0.2 Neut % (Auto) 72.2 Lymph % (Auto) 16.0 L [place] % (Auto) 8.6 Eos % (Auto) 2.8 Baso % (Auto) 0.2 Lymph # (Auto) 0.7 L [place] # (Auto) 0.4 Eos # (Auto) 0.1 Baso # (Auto) 0.0 Abs Immat Gran (auto) 0.01 Absolute Neuts (auto) 3.3 Absolute Nucleated RBC 0.000 Nucleated RBC % (auto) 0.0 VBG pH 7.44 H VBG pCO2 40 VBG pO2 39 VBG HCO3 27 H VBG O2 Saturation 51.0 VBG Base Excess 3.3 Sodium 142 Potassium 4.1 D Chloride 107 Carbon Dioxide 25 Anion Gap 14 BUN 58 H Creatinine 2.57 H Estim Creat Clear Calc 25.1 Estimated GFR 25 Random Glucose 104 Calcium 8.8 Total Bilirubin 0.9 AST 31 ALT 19 Alkaline Phosphatase 158 H B-Natriuretic Peptide 1719 H Total Protein 6.8 Albumin 3.1 L Discharge Plan Discharge Clinical Impression: Congestive heart failure Patient Disposition: Left Against Medical Advice Prescriptions: No Action (DME) blood sugar diagnostic Strip See Rx Instructions .ROUTE BID Qty: 50 11RF Rx Instructions: Use 1 test strip once a day atorvastatin 40 mg tablet 40 mg PO DAILY Eliquis 2.5 mg tablet 2.5 mg PO BID omeprazole 40 mg Capsule,Delayed Release(Dr/Ec) 40 mg PO BID@0630,1630 Qty: 60 0RF furosemide 40 mg tablet 40 mg PO DAILY docusate sodium 100 mg Capsule 100 mg PO DAILY polyethylene glycol 3350 [Miralax] 17 gram/dose Powder 17 g PO DAILY fluticasone propionate 50 mcg/actuation [place],Suspension 1 spray INTRANASAL DAILY Rx Instructions: administer into each nostril diclofenac sodium 1 % Gel 2 g TOPICAL TID Rx Instructions: apply to single elbow, wrist or hand; for hand includes palm/fingers/back of hand ferrous sulfate 325 mg (65 mg iron) tablet 325 mg PO Q48H calcitriol 0.25 mcg capsule 0.25 mcg PO Q48H lisinopril 40 mg tablet 40 mg PO DAILY amlodipine 5 mg Tablet 5 mg PO DAILY Qty: 60 0RF Protocol: Hold for SBP< HOLD for SBP < : 90 carvedilol 6.25 mg Tablet 6.25 mg PO BID Qty: 60 0RF Protocol: Hold for SBP/HR < HOLD for SBP < : 90 HOLD for HR < : 60 (DME) blood-glucose meter Misc See Rx Instructions PO BID Qty: 1 Rx Instructions: As directed (DME) lancets Misc See Rx Instructions .ROUTE BID Qty: 100 Rx Instructions: As directed Referrals: Blanca Crowley MD [Primary Care Provider, Internal Medicine] Print Language: Danish
== END 2025-03-26 19:00 | disposition left against medical advice (07) | DRG 291 ==
LOC: HO.ED 11:26 → HO.EDOVER 11:49 → HO.IMC 03-26 12:54
PROVIDERS: Internal Medicine; Admitting Provider Internal Medicine; Emergency Provider Emergency Medicine; PCP Student in an Organized Health Care Education/Training Program; Visit Provider Physician Assistant Medical
DX: I13.0 Hypertensive heart and chronic kidney disease with heart failure and stage 1 through stage 4 chronic kidney disease, or unspecified chronic kidney disease (principal); I50.33 Acute on chronic diastolic (congestive) heart failure; J96.01 Acute respiratory failure with hypoxia; I48.19 Other persistent atrial fibrillation; I47.20 Ventricular tachycardia, unspecified; K21.9 Gastro-esophageal reflux disease without esophagitis; E78.5 Hyperlipidemia, unspecified; N18.30 Chronic kidney disease, stage 3 unspecified; E11.22 Type 2 diabetes mellitus with diabetic chronic kidney disease; D63.1 Anemia in chronic kidney disease; Z20.822 Contact with and (suspected) exposure to COVID-19; Z87.891 Personal history of nicotine dependence; Z79.899 Other long term (current) drug therapy
CPT/HCPCS: 36415; 71045; 80048; 80076; 82803; 82947; 83036; 83735; 83880; 84484; 85025; 87637; 93005; 99285; J1938

== ENCOUNTER → 2025-03-25 09:59 | Outpatient (BNV) | payer OTHER, SELFPAY | PROVIDERS: Emergency Provider Emergency Medicine; PCP Student in an Organized Health Care Education/Training Program; Visit Provider Radiology Diagnostic Radiology | DX: J90 Pleural effusion, not elsewhere classified (principal); I51.7 Cardiomegaly; R06.00 Dyspnea, unspecified | CPT/HCPCS: 71045 ==

== ENCOUNTER → 2025-03-25 09:59 | Outpatient (BNV) | payer OTHER, SELFPAY | PROVIDERS: Admitting Provider Internal Medicine; Emergency Provider Emergency Medicine; PCP Student in an Organized Health Care Education/Training Program; Visit Provider Internal Medicine Cardiovascular Disease | DX: I48.91 Unspecified atrial fibrillation (principal) | CPT/HCPCS: 93010 ==

== ENCOUNTER 2025-03-25 11:48 | Outpatient (BNV) | payer OTHER, SELFPAY | END 2025-03-26 00:57 | PROVIDERS: Admitting Provider Internal Medicine; Emergency Provider Emergency Medicine; PCP Student in an Organized Health Care Education/Training Program; Visit Provider Internal Medicine Cardiovascular Disease | DX: I48.91 Unspecified atrial fibrillation (principal); Z95.0 Presence of cardiac pacemaker | CPT/HCPCS: 93010 ==

== ENCOUNTER → 2025-03-25 11:48 | Outpatient (BNV) | payer OTHER, SELFPAY | PROVIDERS: Admitting Provider Internal Medicine; Emergency Provider Emergency Medicine; PCP Student in an Organized Health Care Education/Training Program; Visit Provider Internal Medicine Cardiovascular Disease | DX: I50.9 Heart failure, unspecified (principal) | CPT/HCPCS: 99222 ==

== ENCOUNTER → 2025-03-25 11:48 | Outpatient (BNV) | payer OTHER, SELFPAY | PROVIDERS: Admitting Provider Internal Medicine; Emergency Provider Emergency Medicine; PCP Student in an Organized Health Care Education/Training Program; Visit Provider Registered Nurse | DX: Z13.30 Encounter for screening examination for mental health and behavioral disorders, unspecified (principal) | CPT/HCPCS: 99232 ==

== ENCOUNTER → 2025-03-25 11:48 | Outpatient (BNV) | payer OTHER, SELFPAY | PROVIDERS: Admitting Provider Internal Medicine; Emergency Provider Emergency Medicine; PCP Student in an Organized Health Care Education/Training Program; Visit Provider Physician Assistant Medical | DX: I50.9 Heart failure, unspecified (principal) | CPT/HCPCS: 99223; 99233; 99499 ==

== ENCOUNTER 2025-03-30 10:42 | Inpatient (IN) | payer OTHER, SELFPAY ==
[2025-03-30] VITALS (9 sets, daily range): BP systolic 159–192; BP diastolic 74–84; PULSE 52–82; RESP 15–25; TEMP 36.6–36.7; O2SAT 91–96; BMI 25.8
--- NOTE | ~2025-03-30 | XR_ITS ---
EXAMINATION: XR CHEST CLINICAL INFORMATION: dyspnea on exertion COMPARISON: 03/25/2025, 03/23/2025. TECHNIQUE: Frontal view of the chest was obtained. FINDINGS: There is mild cardiomegaly. Mediastinal and hilar contours appear stable and normal. Mild aortic mural calcification. There is a small to moderate-sized layering right effusion without significant change. Lungs otherwise clear. No left effusion. No pneumothorax. No focal osseous or soft tissue abnormality. There are degenerative changes in both shoulder joints and throughout the spine. XR/XR chest 1V IMPRESSION: 1. Stable cardiac enlargement. 2. Similar small to moderate-sized layering right effusion. Electronically signed by: Jack Shah MD 03/30/2025 11:23 AM EDT
--- NOTE | 2025-03-30 10:51 | ED_ITS ---
HPI - General Adult General Chief complaint: General Medical Stated complaint: PAINFUL GROIN FROM [facility] PER EMS Time Seen by Provider: 03/30/25 10:51 History of Present Illness ED Provider: Freya CONWAY narrative: The patient is a 74-year-old male with a history of congestive heart failure, hypertension, chronic kidney disease, cardiomyopathy, chronic atrial fibrillation (on apixaban), and other medical problems. He was sent to the hospital by ambulance from the [facility] today. He had apparently presented to the [facility] because of swelling of his genitalia that he says began this morning and which he says was new for him. He says that he walked to the [facility], about a 5 minute walk. At the [facility] he also admitted to dyspnea on exertion and the [facility] called an ambulance and he was brought here. He denies fever, sweats, chills. He denies cough or sputum. He admits to dyspnea on exertion. No abdominal pain, nausea, vomiting. This is the 4th emergency room visit for similar symptoms this month. The patient presented here on March 19 with shortness of breath and peripheral edema and was advised to be hospitalized. He signed out against medical advice. He returned to the emergency room on March 23. At that time there was a plan for hospitalization and he was admitted to the hospitalist service but he signed out against medical advice that same day. He then returned on March 25, again for shortness of breath and CHF. Again he was hospitalized. At that time he had a psychiatric evaluation and was judged to have capacity to make medical decisions including signing out against medical advice. He then signed out against medical advice once again on March 26. Related Data Home Medications ?Medication ?Instructions ?Recorded ?Confirmed blood-glucose meter #1 ea 05/14/20 01/14/24 lancets #100 ea 05/14/20 01/14/24 atorvastatin 40 mg tablet 40 mg PO DAILY 12/19/2203/13 lisinopril 40 mg tablet 40 mg PO DAILY 10/20/2403/13 apixaban 2.5 mg tablet (Eliquis) 2.5 mg PO BID 12/05/2 5 03/30/25 furosemide 40 mg tablet 40 mg PO DAILY 03/23/2503/13 calcitriol 0.25 mcg capsule 0.25 mcg PO Q48H 03/30/25 03/30/25 diclofenac sodium 1 % topical gel 2 g topical TID 03/1303/30/25 docusate sodium 100 mg capsule 100 mg PO DAILY 5 03/30/25 ferrous sulfate 325 mg (65 mg 325 mg PO Q48H 03/30/25 03/30/25 iron) tablet fluticasone propionate 50 1 spray intranasal DAILY 03/30/25 mcg/actuation nasal spray,suspension polyethylene glycol 3350 17 17 g PO DAILY 03/30/25 gram/dose oral powder (Miralax) Previous Rx's ?Medication ?Instructions ?Recorded blood sugar diagnostic #50 ea 01/24/21 omeprazole 40 mg capsule,delayed 40 mg PO BID@0630,163 0 #60 caps 12/16/24 release amlodipine 5 mg tablet 5 mg PO DAILY #60 tabs 01/29 carvedilol 6.25 mg tablet 6.25 mg PO BID #60 tabs 01/11 05/07 Allergies Allergy/AdvReac Type Severity Reaction Status Date / Time No Known Allergies (No Known Allergy Verified 03/30/25 10:58 Allergies*) Review of Systems 2 Review of Systems: Yes all other systems are reviewed and are negative [facility] Past Medical History Medical History Anemia in chronic kidney disease (CKD) Hypertension Uncontrolled hypertension Congestive heart failure CKD (chronic kidney disease) CHF (congestive heart failure) CKD (chronic kidney disease) stage 4, GFR 15-29 ml/min Obesity (BMI 30.0-34.9) Cardiomyopathy Stroke Chronic atrial fibrillation CKD (chronic kidney disease) Former smoker Depression Diabetes High cholesterol Surgical History History of aneurysm History of shoulder surgery Family History Family History Father No problems noted. Mother Diabetes Hypertension Cancer Son No problems noted. Son No problems noted. Son No problems noted. Daughter No problems noted. Daughter No problems noted. Social History Social History Household Members: None Household Members Other:: Housing: Apartment Are you a primary childcare center administrator to a significant other at home: No Do you presently have visiting nurse or other home services: Yes Unable to assess alcohol history related to: Unknown Alcohol intake: never Patient Tobacco Use Status: Former Tobacco user Smoked in Last 30 Days: No Use of substances other than those prescribed or required for medical reasons: No Substance Use Type: Marijuana Advance Directives: Yes Advance Directives on File: Yes Advance Directives Date on File: 12/17/24 Do you have a plan to hurt others: No Plan service: No Current occupational status: disabled Physical Exam ED Vital Signs: Vital Signs - 24 hr 03/30/25 10:50 03/30/25 11:38 03/30/25 11:40 Temperature 97.8 F Pulse Rate 72 57 Respiratory Rate 15 20 Blood Pressure 177/74 H 174/84 H 174/84 H Pulse Oximetry 94 92 Oxygen Delivery Method Room Air Room Air BMI result Body Mass Index 25.8 Const Other: The patient was awake and alert. He looked mildly short of breath at rest and more short of breath with minor exertion in the stretcher. HENMT Other: The face is symmetrical. ?Mucous membranes moist. Eyes Other: Pupils are round equal, conjunctivae are clear, extraocular movements intact Neck Neck: Yes normal visual inspection and Yes full ROM Resp Other: Mild increased work of breathing. Crackles at the bases. Cardio Other: The patient has an irregular rate and rhythm. No murmur heard. GI Other: Abdomen is soft and nontender Other: The patient is an uncircumcised male who has edematous swelling of his scrotum and penis. No significant tenderness. Skin Other: The patient has a lot of edema to the skin from the waist down. Neuro Other: The patient is awake and alert. Cranial nerves are grossly intact. He moves his extremities symmetrically. Extrem Other: 2 to 3+ edema of the lower extremities extending up to the sacrum. Medications Administered Discontinued Medications Generic Name Dose Route Start Last Admin Trade Name Freq PRN Reason Stop Dose Admin Furosemide 80 mg 03/30/25 11:16 03/30/25 11:38 Furosemide 100 Mg/10 Ml Vial IVPUSH 03/30/25 11:17 80 mg ONCE ONE Administration Protocol Medical Decision Making Medical Decision Making MDM Narrative: The patient is a 74-year-old male who lives alone and who has a history of congestive heart failure. He is on furosemide 40 mg b.i.d.. Today he apparently walked to the [facility] because he was concerned that his genitalia was swollen. He also acknowledged dyspnea on exertion. I believe that the staff at [facility] felt the patient was having significant fluid retention and probable congestive heart failure. An ambulance was called and he was brought here. The patient has a lot of edema of his legs and his genitalia. Essentially from the waist down he has a lot of edema. His oxygen saturations on room air were around 90%, sometimes they fell to 88%. The patient was given 80 mg of IV furosemide. It was my impression that the patient is fluid overloaded. The patient initially agreed to stay in the hospital. Later he said that he wanted to leave. He has done this several times already this month. His daughter raised the question of dementia and decision making capacity. He had a psychiatric evaluation on March 25 for this reason. At that time he was felt to have capacity. Given that he seems to be very labile on the question of whether he is willing to stay in the hospital and given that he would not really engage in any substantial discussion of why he might not want to stay in the hospital I reconsulted Psychiatry for a capacity evaluation. This point the patient is stating that he is willing to remain in the hospital. The psychiatrist indicates that he feels the patient has capacity for medical decision making. The patient was admitted to the hospitalist team. Lab Data 03/30/25 11:11 03/30/25 11:11 Labs: Lab Results 03/30/25 Range/Units 11:11 WBC 6.3 (4.8-10.8) X10*3/uL RBC 3.44 L (4.60-5.80) X10*6/uL Hgb 9.2 L (14.0-18.0) g/dl Hct 29.7 L (42.0-52.0) % MCV 86.3 (80.0-98.0) fL MCH 26.7 L (27.0-33.0) pg MCHC 31.0 (31.0-36.0) g/dl RDW 18.1 H (11.0-16.0) % Plt Count 181 (160-400) X10*3/uL MPV 9.6 (9.4-12.4) fL Immature Gran % (Auto) 0.3 (0.0-0.4) % Neut % (Auto) 80.0 H (45-73) % Lymph % (Auto) 13.3 L (20-40) % Kidder % (Auto) 5.9 (2-11) % Eos % (Auto) 0.3 (0-4) % Baso % (Auto) 0.2 (0-2) % Lymph # (Auto) 0.8 L (1.2-4.9) X10*3/uL Kidder # (Auto) 0.4 (0.1-1.2) X10*3/uL Eos # (Auto) 0.0 (0.0-0.4) X10*3/uL Baso # (Auto) 0.0 (0.0-0.2) X10*3/uL Abs Immat Gran (auto) 0.02 (0.00-0.03) X10*3/uL Absolute Neuts (auto) 5.0 (2.0-8.3) x10*3/uL Absolute Nucleated RBC 0.000 (0.0-0.012) X10*3/uL Nucleated RBC % (auto) 0.0 (0.0-0.2) /100WBC PT 15.3 H (10.9-12.4) SEC INR 1.3 H (0.9-1.1) Sodium 141 (135-145) mmol/L Potassium 3.2 L (3.3-5.1) mmol/L Chloride 109 H (96-108) mmol/L Carbon Dioxide 21 L (22-29) mmol/L Anion Gap 14 (12-20) BUN 54 H (9-16) mg/dL Creatinine 2.30 H (0.5-1.4) mg/dL Estim Creat Clear Calc 28.0 Estimated GFR 28 Random Glucose 113 (60-115) mg/dL Calcium 8.8 (8.4-10.2) mg/dL Magnesium 1.8 (1.6-2.6) mg/dL Total Bilirubin 1.5 H (0.0-1.0) mg/dL Direct Bilirubin 0.6 H (0.0-0.5) mg/dL AST 29 (5-37) U/L ALT 16 (0-40) U/L Alkaline Phosphatase 181 H (39-117) U/L Troponin I High Sens 35.4 H (<3.5-35.0) ng/L C-Reactive Protein 4.80 H (< or = 0.50) mg/dL Total Protein 7.0 (6.5-8.0) g/dL Albumin 3.4 L (3.5-5.0) g/dL Ethyl Alcohol < 10 mg/dL Influenza Type A (PCR) NEGATIVE (Negative) Influenza Type B (PCR) NEGATIVE (Negative) RSV RNA Qual (PCR) NEGATIVE (Negative) SARS-CoV-2 RNA (RT-PCR) NEGATIVE (Negative) Independent Interpretation I performed an independent interpretation of an: EKG Interpretation: EKG at 11:27 shows atrial fibrillation at 61 beats per minute. There are nonspecific ST and T-wave changes. No remarkable changes from previous EKG. Critical Care Time Critical Care Time Critical Care Time: Yes Total Critical Care Time: 35 Attestation: The patient was critically ill with a high probability of imminent or life- threatening deterioration. ?I spent greater than 30 minutes of discontinuous time evaluating the patient, delivering critical care at the bedside, discussing evaluating data with consultants. ?Critical care time does not include time spent performing separately billable procedures or teaching. ?Time spent performing critical care with 35 minutes. Discharge Plan Discharge Clinical Impression: Congestive heart failure Patient Disposition: Admitted As Inpatient
--- NOTE | 2025-03-30 11:02 | ECG_ITS ---
Test Reason : DSYPNEA Blood Pressure : */* mmHG Vent. Rate : 61 BPM Atrial Rate : * BPM P-R Int : * ms QRS Dur : 106 ms QT Int : 440 ms P-R-T Axes : * 18 232 degrees QTcB Int : 442 ms Atrial fibrillation Minimal voltage criteria for LVH, may be normal variant ( Duson product ) ST & T wave abnormality, consider lateral ischemia Abnormal ECG When compared with ECG of 26-Mar-2025 00:57, Non-specific change in ST segment in Inferior leads Referred By: Eduardo Pillai Electronically Signed By: NICOLA DIALLO MD
[2025-03-30 11:15] LABS: MANUAL DIFF FLAG NO
[2025-03-30 11:16] LABS: Hematocrit 29.7 % (42.0-52.0); Hemoglobin 9.2 g/dl (14.0-18.0); Imm Gran Abs Auto 0.02 X10*3/uL (0.00-0.03); Imm Gran Pct Auto 0.3 % (0.0-0.4); Lymphocytes Absolute Auto 0.8 X10*3/uL (1.2-4.9); Mean Corpuscular HGB Conc 31.0 g/dl (31.0-36.0); Mean Corpuscular Hemoglobin 26.7 pg (27.0-33.0); Mean Corpuscular Volume 86.3 fL (80.0-98.0); NRBC Abs Auto 0.000 X10*3/uL (0.0-0.012); NRBC Pct Auto 0.0 /100WBC (0.0-0.2); Platelet Count 181 X10*3/uL (160-400); Red Blood Count 3.44 X10*6/uL (4.60-5.80); White Blood Count 6.3 X10*3/uL (4.8-10.8)
[2025-03-30 11:23] LABS: INTERNATIONAL NORM RATIO 1.3 (0.9-1.1); Prothrombin Time 15.3 SEC (10.9-12.4)
[2025-03-30 11:37] LABS: Alanine Aminotransferase 16 U/L (0-40); Albumin Level 3.4 g/dL (3.5-5.0); Alkaline Phosphatase 181 U/L (39-117); Anion Gap 14 (12-20); Aspartate Amino Transferase 29 U/L (5-37); Blood Urea Nitrogen 54 mg/dL (9-16); Calcium 8.8 mg/dL (8.4-10.2); Carbon Dioxide 21 mmol/L (22-29); Chloride 109 mmol/L (96-108); Creatinine Clr Calc Pharmacy 28.0; Estimated Glomerular Filt Rate 28; Magnesium 1.8 mg/dL (1.6-2.6); Potassium 3.2 mmol/L (3.3-5.1); Sodium 141 mmol/L (135-145); Total Protein 7.0 g/dL (6.5-8.0)
[2025-03-30] MEDS: Furosemide 100 MG/10 ML VIAL 80 MG IVPUSH (11:38)
[2025-03-30 11:39] LABS: Troponin-I High Sensitivity 35.4 ng/L (<3.5-35.0)
[2025-03-30 11:55] LABS: Resp Syncy Virus RNA Qual PCR NEGATIVE (Negative); SARS COV2 PCR INHOUSE NEGATIVE (Negative)
--- OUTSIDE RECORDS SUMMARY | 2025-03-30 12:24 | XMS_ITS | Encounter Summary ---
Author Organization [facility] Address [address] [place] [address] Phone Care Team Providers Care Pedorthist Name Role Phone Arielle Godinez Primary Care Provider Unavailabl e Encounter Details Date Type Department Care Team (Late st Contact Info) Description 01/03/2024 Office Communication [facility] [address] [place] [address] Soy Meléndez MD [address] [facility] [address] [place] [address] Social History Tobacco Use Types [...] on filedocumented in this encounter Care Teams Pedorthist Relationship Specialty Start Date End Date Arielle Godinez PCP - General Family Medicine 08/10/21 documented as of this encounter
--- OUTSIDE RECORDS SUMMARY | 2025-03-30 12:24 | XMS_ITS | Encounter Summary ---
Author Organization [employer] Address [address] [place] [address] Care Team Providers Care Trailhead Construction Worker Name Role Phone Jarad Lundy MD Primary Care Provider Encounter Details Date Type Department Care Team (Latest Contact Info) Description 12/19/[address] [facility] - Main Lab [address] [place] [address] Jarad Lundy MD [address] [place] [id number] Type 2 diabetes mellitus without complications ([facility] V24, [facility] V28) Social History Tobacco Use Types Packs/Day [...] Procedure Name Priority Date/Time Associated Diagnosis Comments COMPLETE BLOOD COUNT Routine 12/19/2024 4:48 AM EDT Type 2 diabetes mellitus without complications ([facility]/HCC V24, [facility] V28) HEMOGLOBIN A1C Routine 12/19/2024 4:48 AM EDT Type 2 diabetes mellitus without complications ([facility] V24, [facility] V28) COMPREHENSIVE METABOLIC PANEL Routine 12/19/2024 4:48 AM EDT Type 2 diabetes mellitus without complications ([facility] V24, [facility] V28) documented in this encounter Results * Hemoglobin A1c (12/19/2024 4:48 AM EDT) Pathologist [facility] Hemoglobin A1C 5.7 <6.5 % LAB CHEMISTRY METHOD 12/19/2024 11:02 AM T [facility] Mean Bld Glu Estim. 117 mg/dL LAB CHEMISTRY METHOD 12/19/2024 11:02 AM [facility] Blood Venous blood specimen / Unknown Venipuncture / Unknown 12/19/2024 4:48 AM EDT 12/19/2024 7:19 AM EDT us Jarad Lundy MD LAB BLOOD ORDERABLES Final Resu lt [facility] [address] [place] [address], * (ABNORMAL) Comprehensive metabolic panel (12/19/2024 4:48 AM EDT) [facility] Sodium 141 133 - 145 mmol/L LAB CHEMISTRY METHOD 12/19/2024 8:20 AM [facility] Potassium 3.3(L) 3.5 - 5.5 mmol/L LAB CHEMISTRY METHOD 12/19/2024 8:20 AM [facility] Chloride 106 96 - 110 mmol/L LAB CHEMISTRY METHOD 12/19/2024 8:20 AM [facility] CO2 26 21 - 32 mmol/L LAB CHEMISTRY METHOD 12/19/2024 8:20 AM [facility] Anion Gap 9 3 - 11 LAB CHEMISTRY METHOD 12/19/2024 8:20 AM [facility] Glucose 74 70 - 100 mg/dL LAB CHEMISTRY METHOD 12/19/2024 8:20 AM [facility] BUN 26(H) 5 - 25 mg/dL LAB CHEMISTRY METHOD 12/19/2024 8:20 AM [facility] Creatinine 1.68(H) 0.70 - 1.30 mg/dL LAB CHEMISTRY METHOD 12/19/2024 8:20 AM [facility] eGFR 43(L) >=60 mL/min/1. 73m2 LAB CHEMISTRY METHOD 12/19/2024 8:20 AM [facility] Comment:Calculation based on the Chronic Kidney Disease Epidemiology Collaboration (CKD-EPI) equation refit without adjustment for race. BUN/Creatinine Ratio 15.5 LAB CHEMISTRY METHOD 12/19/2024 8:20 AM [facility] Calcium 8.1(L) 8.5 - 10.5 mg/dL LAB CHEMISTRY METHOD 12/19/2024 8:20 AM [facility] AST (SGOT) 20 10 - 42 unit/L LAB CHEMISTRY METHOD 12/19/2024 8:20 AM [facility] ALT (SGPT) 18 10 - 60 unit/L LAB CHEMISTRY METHOD 12/19/2024 8:20 AM [facility] Alkaline Phosphatase 210(H) 42 - 121 unit/L LAB CHEMISTRY METHOD 12/19/2024 8:20 AM [facility] Total Protein 5.3(L) 6.0 - 8.0 g/dL LAB CHEMISTRY METHOD 12/19/2024 8:20 AM [facility] Albumin 2.0(L) 3.2 - 5.0 g/dL LAB CHEMISTRY METHOD 12/19/2024 8:20 AM [facility] Total Bilirubin 0.6 0.0 - 1.4 mg/dL LAB CHEMISTRY METHOD 12/19/2024 8:20 AM [facility] Blood Venous blood specimen / Unknown Venipuncture / Unknown 12/19/2024 4:48 AM EDT 12/19/2024 7:19 AM EDT us Jraad Lundy MD LAB BLOOD ORDERABLES Final Resu lt [facility] [address] [place] [address], * (ABNORMAL) Complete blood count (12/19/2024 4:48 AM EDT) [facility] Signature WBC 9.1 4.8 - 10.8 K/mcL LAB HEMETOLOGY METHOD 12/19/2024 7:52 AM EDT [facility] RBC 3.60(L) 4.50 - 5.50 M/mcL LAB HEMETOLOGY METHOD 12/19/2024 7:52 AM EDT [facility] Hemoglobin 10.3(L) 13.5 - 17.5 g/dL LAB HEMETOLOGY METHOD 12/19/2024 7:52 AM EDT [facility] Hematocrit 31.6(L) 42.0 - 54.0 % LAB HEMETOLOGY METHOD 12/19/2024 7:52 AM EDT [facility] MCV 88.8 79.0 - 98.0 FL LAB HEMETOLOGY METHOD 12/19/2024 7:52 AM EDT [facility] MCH 28.9 27.0 - 32.0 pcg LAB [facility]EMETOLOGY [facility] MCHC 32.6 32.0 - 37.0 g/dL LAB HEMETOLOGY METHOD 12/19/2024 7:52 AM EDT [facility] RDW 16.2(H) 11.0 - 15.0 % LAB HEMETOLOGY METHOD 12/19/2024 7:52 AM EDT [facility] Platelets 308 130 - 400 K/mcL LAB HEMETOLOGY METHOD [facility]24 7[facility] MPV 9.1 7.0 - 11.0 FL LAB HEMETOLOGY METHOD 12/19/2024 7:52 AM EDT [facility] NRBC 0.0 <1.0 % LAB HEMETOLOGY METHOD 12/19/2024 7:52 AM EDT [facility] NRBC Absolute 0.00 <0.10 K/mcL LAB HEMETOLOGY METHOD 12/19/2024 7:52 AM EDT [facility] Blood Venous blood specimen / Unknown Venipuncture / Unknown 12/19/2024 4:48 AM EDT 12/19/2024 7:19 AM EDT us Jarad Lundy MD LAB BLOOD ORDERABLES Final Resu lt [facility] [address] [place] [address], [place] [phone] documented in this encounter Visit Diagnoses Diagnosis Type 2 diabetes mellitus without complications (CMS/HCC V24, CMS/HCC V28) documented in this encounter Care Teams [employer] Worker Relationship Specialty Start Date End Date Jarad Lundy MD [address] [place] [id number] PCP - General Hospitalist Medicine 12/17/24 documented as of this encounter
--- NOTE | 2025-03-30 12:28 | PM.IMHP ---
History of Present Illness Date of Service: 03/30/25 Attending physician on admission: Vivek [facility] Chief Complaint: SOB Pt is a 74-year-old female with a PMH significant for?HFpEF (LVEF 52%), AFib on Eliquis, [id number]-vckthamtq type 2 diabetes, HTN, HLD, CAD, and hyperparathyroidism who presents to the ED with?swelling in the scrotum and penis. Pt has a recent hx of CHF exacerbation for which pt continually refuses optimal treatment as he has left AMA from the ER and inpatient multiple times, including leaving AMA from the ER on 03/19 and signing out AMA from the hospital on 03/23 and 03/26. There were questions of possible mild cognitive impairment, and pt was evaluated by psychiatry on both 813 and 818 where he was deemed to have capacity to make medical decisions on both occasions. Since leaving AMA on 03/26, patient's SOB and lower leg edema have increased. Presented earlier today to [facility] due to swelling in his penis and testicles. Was seen and evaluated and sent by ambulance to the ED for further treatment. No scrotal, abdominal, or lower leg pain. Pt also complains of intermittent chest pressure that has been ongoing for the past few days. Denies cough. Denies fever, chills, nausea, vomiting, abdominal pain. States he has been compliant with all home medications. In the ED pt was hypertensive up to 177/74, vitals otherwise stable and WNL. Satting at 91% on RA. Labs were significant for potassium 3.2, BUN 54, creatinine 2.30, T bili 1.5, alk-phos 181, CRP 4.80, and initial troponin 35.4. H&H showing stable normocytic anemia 9.2/29.5. CXR showed stable cardiac enlargement and similar acdyh-ek-bweyooxj sized layering right effusion. EKG demonstrated atrial fibrillation without evidence of significant ST elevations or depressions. Pt was treated in the ED with Lasix 80 mg IV. Pt is admitted to the hospital for treatment and further evaluation of anasarca in the setting of acute CHF exacerbation complicated by pt refusing optimal therapies with IV diuresing. Review of Systems Review of Systems: Negative except for that which is stated in the HPI. [facility] Medical History Anemia in chronic kidney disease (CKD) Hypertension Uncontrolled hypertension Congestive heart failure CKD (chronic kidney disease) CHF (congestive heart failure) CKD (chronic kidney disease) stage 4, GFR 15-29 ml/min Obesity (BMI 30.0-34.9) Cardiomyopathy Stroke Chronic atrial fibrillation CKD (chronic kidney disease) Former smoker Depression Diabetes High cholesterol Family History Father No problems noted. Mother Diabetes Hypertension Cancer Son No problems noted. Son No problems noted. Son No problems noted. Daughter No problems noted. Daughter No problems noted. Surgical History History of aneurysm History of shoulder surgery Social History Household Members: None Household Members Other:: Housing: Apartment Are you a primary aged or disabled carer to a significant other at home: No Do you presently have visiting nurse or other home services: Yes Unable to assess alcohol history related to: Unknown Alcohol intake: never Patient Tobacco Use Status: Former Tobacco user Smoked in Last 30 Days: No Use of substances other than those prescribed or required for medical reasons: No Substance Use Type: Marijuana Advance Directives: Yes Advance Directives on File: Yes Advance Directives Date on File: 12/17/24 Do you have a plan to hurt others: No Plan service: No Current occupational status: disabled Meds Allergies Allergy/AdvReac Type Severity Reaction Status Date / Time No Known Allergies (No Known Allergy Verified 03/30/25 10:58 Allergies*) Home Medications ?Medication ?Instructions ?Recorded ?Confirmed ?Last Taken ?Type blood-glucose meter #1 ea 05/14/20 01/14/24 Unknown History lancets #100 ea 05/14/20 01/14/24 Unknown History atorvastatin 40 mg tablet 40 mg PO DAILY 12/19/22 03/30/25 03/25/25 History lisinopril 40 mg tablet 40 mg PO DAILY 10/20/24 03/30/25 03/25/25 History apixaban 2.5 mg tablet (Eliquis) 2.5 mg PO BID 12/05/24 03/30/25 03/25/25 History furosemide 40 mg tablet 40 mg PO DAILY 03/23/25 03/30/25 03/25/25 History calcitriol 0.25 mcg capsule 0.25 mcg PO Q48H 03/30/25 03/30/25 Unknown History diclofenac sodium 1 % topical gel 2 g topical TID 03/30/25 03/30/25 Unknown History docusate sodium 100 mg capsule 100 mg PO DAILY 03/30/25 03/30/25 Unknown History ferrous sulfate 325 mg (65 mg 325 mg PO Q48H 03/30/25 03/30/25 Unknown History iron) tablet fluticasone propionate 50 1 spray intranasal DAILY 03/30/25 03/30/25 Unknown History mcg/actuation nasal spray,suspension polyethylene glycol 3350 17 17 g PO DAILY 03/30/25 03/30/25 Unknown History gram/dose oral powder (Miralax) Physical Exam Vital Signs and Narrative: Vital Signs: Last Vital Signs Temp 97.8 F 03/30/25 10:50 Pulse 57 03/30/25 11:40 Resp 20 03/30/25 11:40 BP 174/84 H 03/30/25 11:40 Pulse Ox 92 03/30/25 11:40 O2 Del Method Room Air 03/30/25 11:40 BMI result Body Mass Index 25.8 General: AOx3, no acute distress Resp: Bibasilar crackles CVS: Irregular rhythm GI: NT, soft, mild distention Skin: Warm, dry : Testicular and penile edema Neuro: Cranial nerves II-XII grossly intact bilaterally. Motor grossly intact bilaterally Extremities: 3+ bilateral pitting edema Psych: Appropriate affect Results Labs 03/30/25 11:11 03/30/25 11:11 Labs: Laboratory Results - last 24 hr 03/30/25 11:11 MCV 86.3 MCH 26.7 L MCHC 31.0 RDW 18.1 H Plt Count 181 MPV 9.6 Immature Gran % (Auto) 0.3 Neut % (Auto) 80.0 H Lymph % (Auto) 13.3 L Carroll % (Auto) 5.9 Eos % (Auto) 0.3 Baso % (Auto) 0.2 Lymph # (Auto) 0.8 L Carroll # (Auto) 0.4 Eos # (Auto) 0.0 Baso # (Auto) 0.0 Abs Immat Gran (auto) 0.02 Absolute Neuts (auto) 5.0 Absolute Nucleated RBC 0.000 Nucleated RBC % (auto) 0.0 PT 15.3 H INR 1.3 H Anion Gap 14 Estim Creat Clear Calc 28.0 Estimated GFR 28 Random Glucose 113 Calcium 8.8 Magnesium 1.8 Total Bilirubin 1.5 H Direct Bilirubin 0.6 H AST 29 ALT 16 Alkaline Phosphatase 181 H C-Reactive Protein 4.80 H Total Protein 7.0 Albumin 3.4 L Ethyl Alcohol < 10 Influenza Type A (PCR) NEGATIVE Influenza Type B (PCR) NEGATIVE RSV RNA Qual (PCR) NEGATIVE SARS-CoV-2 RNA (RT-PCR) NEGATIVE Imaging Radiologist's Impressions: Impressions Chest X-Ray 03/30/25 10:07 IMPRESSION: 1. Stable cardiac enlargement. 2. Similar small to moderate-sized layering right effusion. Electronically signed by: Jack Shah MD 03/30/2025 11:23 AM EDT RP Assessment and Plan (1) Acute exacerbation of CHF (congestive heart failure): Qualifiers: Heart failure type: unspecified Qualified Code(s): I50.9 - Heart failure, unspecified Status: Acute (2) Anasarca: Status: Acute Plan Pt is a 74-year-old female with a PMH significant for?HFpEF (LVEF 52%), AFib on Eliquis, zwq-qutjrce-eppjjqqgj type 2 diabetes, HTN, HLD, CAD, and hyperparathyroidism who presents to the ED with?swelling in the scrotum and penis. Pt is admitted to the hospital for treatment and further evaluation of anasarca in the setting of acute CHF exacerbation complicated by pt refusing optimal therapies with IV diuresing. Acute HFpEF exacerbation Pt with worsening scrotal and penile edema, LLE, SOB, FRANCIS, CXR with pulmonary edema and pleural effusion Question of medication compliance at home; has left AMA 3 times in past 10 days Echo 12/05/24 with LVEF 52%, mild pulm HTN Pt received Lasix 80 mg IV in the ED Will treat with Lasix 40mg IV bid Follow I/O, BMP, BNP Monitor on telemetry KELSEY Creatinine 2.30; baseline around 1.4 Has been steadily increasing likely secondary to fluid overload Treat with IV diuretics as above Follow BMP Hypokalemia Potassium 3.2 at time of presentation Supplemented with potassium chloride in the ED Monitor Chest pain Pt complaining of intermittent nonradiating chest pressure Initial troponin 35.4 Repeat troponin, monitor on telemetry Question of cognitive impairment Pt has a times appeared confused, though currently AO x4 Has been seen and evaluated by psychiatry twice on 03/25 and 03/30 and deemed to have capacity to make medical decisions on his own Pt is free to leave AMA if he so chooses HTN Continue amlodipine, carvedilol, lisinopril Persistent AFib Continue carvedilol and Eliquis HLD/CAD Continue atorvastatin Iron deficiency anemia Continue iron supplementation GERD Continue Full Code Attending:?Dr. Ge DVT Prophylaxis: On Eliquis Pt will require a hospitalization of at least two nights for treatment of?acute hypoxic respiratory failure in the setting of CHF exacerbation. Pt will require hospital level care for administration of supplemental oxygen, IV diuretics, and close monitoring of labs and cardiac function. Quality Stroke Does the patient have a stroke diagnosis?: No VTE Prior VTE?: No VTE Risk Level:: Medical - moderate - high VTE Device Contraindication: Treatment Not Indicated VTE Drug Contraindication: N/A - Med Ordered
--- NOTE | 2025-03-30 13:20 | PHA.MEDREC ---
Addendum entered by Cornell Cruz RPh 03/30/25 13:22: Reviewed by [facility] Original Note: Pharmacy Consult ? Medication Reconciliation Pharmacy has completed the medication reconciliation. Patient is a poor historian. Utilzed claims to confirm med list.
--- NOTE | 2025-03-30 13:38 | PC.NURSE ---
O2 sats decreased to mid 80s on RA. Pt placed on 2L O2 NC with good effect- O2 sats up to mid 90s. Pt remains wanting to leave AMA- MD Pillai and Hospitalist aware.
--- NOTE | 2025-03-30 13:52 | PM.PSYCN ---
History of Present Illness Date of Service: 03/30/25 Chief Complaint: CHF exacerbation Reason for Consult: Assess for capacity Requesting physician: Eduardo Pillai Discussed with referring provider: Yes Sources of Information: patient interviewed, chart reviewed and crisis/core team assessment reviewed Additional Sources of Information: Reviewed recent consult note from 03/25/2025 at which time he was deemed to have capacity HPI Narrative: The patient is a 74-year-old male with a history of congestive heart failure, hypertension, chronic kidney disease, cardiomyopathy, chronic atrial fibrillation (on apixaban), and other medical problems. He was sent to the hospital by ambulance from the [facility] today. He had apparently presented to the [facility] because of swelling of his genitalia that he says began this morning and which he says was new for him...he also admitted to dyspnea on exertion. Patient recently presented to the emergency room for shortness of breath/CHF exacerbation however eventually left AMA. Patient is again declining hospital admission and psychiatry consulted to again assess capacity. Patient able to understand and speak Latvian however supervisor instrument maintenance (jE) present. Patient understands his illness. He is able to adequately explain his illness and the reason he came to the hospital. He is also able to clearly explain his need for treatment and the risks involved if he were to leave and refuse treatment. Patient shared his concern about edema in his genitalia and not wanting it to worsen, but also expressed frustration with being in the hospital at all and some worries about things he needs to do at home i.e. banking. Patient thanked video games storywriter for coming in said he agrees that is best that he stay for treatment and agrees to being admitted to the medical floor; he did not like the idea that it would take several hours for him to be admitted or that he might be here for 2 or more days but consented, saying he does not want his edema to worsen. Patient was assessed on 03/25 and deemed to have capacity: Patient stated, I was having breathing problems so I walked to [facility] to get help . Patient was able to express understanding of proposed treatment and appreciate foreseeable consequences of refusing treatment. Patient stated, They want to keep me here and drain the water to fix my legs and to help me breathe better. My legs have been swollen for a week. I was worried, that's why I went to get help. I know I should stay here and get treatment. I'm not going anywhere. I know that if I don't get help I could get worse and could . COUNTS INCLUDE 234 BEDS AT THE [facility] Medical History Anemia in chronic kidney disease (CKD) Hypertension Uncontrolled hypertension Congestive heart failure CKD (chronic kidney disease) CHF (congestive heart failure) CKD (chronic kidney disease) stage 4, GFR 15-29 ml/min Obesity (BMI 30.0-34.9) Cardiomyopathy Stroke Chronic atrial fibrillation CKD (chronic kidney disease) Former smoker Depression Diabetes High cholesterol Surgical History History of aneurysm History of shoulder surgery Diagnostics Vital Signs (24Hr): Vital Signs - 24 hr 03/30/25 10:50 03/30/25 11:38 03/30/25 11:40 Temperature 97.8 F Pulse Rate 72 57 Respiratory Rate 15 20 Blood Pressure 177/74 H 174/84 H 174/84 H Pulse Oximetry 94 92 Oxygen Delivery Method Room Air Room Air BMI result Body Mass Index 25.8 Labs 03/30/25 11:11 03/30/25 11:11 Labs: Laboratory Results - last 48 hr 03/30/25 11:11 WBC 6.3 RBC 3.44 L Hgb 9.2 L Hct 29.7 L MCV 86.3 MCH 26.7 L MCHC 31.0 RDW 18.1 H Plt Count 181 MPV 9.6 Immature Gran % (Auto) 0.3 Neut % (Auto) 80.0 H Lymph % (Auto) 13.3 L [place] % (Auto) 5.9 Eos % (Auto) 0.3 Baso % (Auto) 0.2 Lymph # (Auto) 0.8 L [place] # (Auto) 0.4 Eos # (Auto) 0.0 Baso # (Auto) 0.0 Abs Immat Gran (auto) 0.02 Absolute Neuts (auto) 5.0 Absolute Nucleated RBC 0.000 Nucleated RBC % (auto) 0.0 PT 15.3 H INR 1.3 H Sodium 141 Potassium 3.2 L Chloride 109 H Carbon Dioxide 21 L Anion Gap 14 BUN 54 H Creatinine 2.30 H Estim Creat Clear Calc 28.0 Estimated GFR 28 Random Glucose 113 Calcium 8.8 Magnesium 1.8 Total Bilirubin 1.5 H Direct Bilirubin 0.6 H AST 29 ALT 16 Alkaline Phosphatase 181 H Troponin I High Sens 35.4 H C-Reactive Protein 4.80 H Total Protein 7.0 Albumin 3.4 L Ethyl Alcohol < 10 Influenza Type A (PCR) NEGATIVE Influenza Type B (PCR) NEGATIVE RSV RNA Qual (PCR) NEGATIVE SARS-CoV-2 RNA (RT-PCR) NEGATIVE Imaging Radiology Impressions: ITS Impressions Chest X-Ray 03/30/25 10:07 IMPRESSION: 1. Stable cardiac enlargement. 2. Similar small to moderate-sized layering right effusion. Electronically signed by: Jack Shah MD 03/30/2025 11:23 AM EDT RP Mental Status Exam Mental Status Exam Narrative: Pt is alert and oriented; behavior is cooperative, calm and organized; patient is not in distress; dressed in hospital attire with adequate grooming; mood is described as anxious and affect congruent somewhat constricted; eye contact appropriate; Speech is normal rate, volume and prosody and not pressured; no psychomotor agitation/retardation present; thought process is organized, linear and goal directed; Thought content is on tx; otherwise pertinent to relevant topics and without any delusional content, paranoid ideations or grandiosity. Patients insight and judgment appear intact. Medications Allergies Allergies Allergy/AdvReac Type Severity Reaction Status Date / Time No Known Allergies (No Known Allergy Verified 03/30/25 10:58 Allergies*) Assessment & Plan Assessment & Plan (1) Acute exacerbation of CHF (congestive heart failure): Qualifiers: Heart failure type: unspecified Qualified Code(s): I50.9 - Heart failure, unspecified Status: Acute Code(s): I50.9 - Heart failure, unspecified Plan The patient is a 74-year-old male with a history of congestive heart failure, hypertension, chronic kidney disease, cardiomyopathy, chronic atrial fibrillation (on apixaban), and other medical problems. He presents for worsening edema of genitalia and dyspnea due to CHF exacerbation. Patient presented for similar problems on 03/25 but left AMA after he was deemed to have capacity. Psychiatry consulted to again assess for capacity. Impression: Patient has capacity Patient meets all criteria necessary for capacity. He has a appropriate understanding of his current situation which he is able to articulate; he appreciates the risks and benefits of treatment which he is also able to articulate; he is able to consider his options appropriately and articulate a clear choice. Total time managing care of this patient today ____ minutes. Patient educated on: diagnosis, medication risk/benefits and medical condition Informed Consent: understands
[2025-03-30 15:39] LABS: Troponin-I High Sensitivity 34.0 ng/L (<3.5-35.0)
[2025-03-30] MEDS: Ferrous Sulfate 324 MG TABLET.DR PO (16:05)
--- NOTE | 2025-03-30 16:05 | PC.NURSE ---
Pt HR low 50s-60s afib on registered nurse cardiac telemetry. Carvedilol held d/t HR below 50s-60s. VIRAJ Robbins made aware.
[2025-03-30] MEDS: 0.9 % Sodium Chloride Flush 3 ML SYRINGE IVFLUSH (16:06)
--- NOTE | 2025-03-30 20:00 | PC.NURSE ---
[address]
[2025-03-30] MEDS: OLANZapine 10 MG VIAL IM (20:01)
--- NOTE | 2025-03-30 20:08 | P.EN_ITS ---
Event Note Date of Service: 03/30/25 Event Note: Pt had already been admitted to hospital for CHF exacerbation, acute hypoxia and continued to demand to leave the hospital. Pt had been seen by Psychiatry and indicated pt has capacity earlier but due to pt's physical limitations currently, pt deemed unsafe to leave even AMA. Thsi conventional underwriter did see pt and at one point., security had to be called as pt became very agressive and agitated. This conventional underwriter did attempt to call daughter and son multiple times to arrange plan for AMA but pt is not safe currently to leave AMA due to his significant physical limitations and the hospital does not provide transportation. Also, pt lives alone and there is concern regarding safety. Have consulted CM to see pt in the AM. Pt ordered to receive Zyprexa 10 mg IM X1, , medical restraint record completed and will see pt hourly to ensure pt is stable. Will continue to try and reach family. This conventional underwriter also updated Dr. Burt on sebastiánenedelia's events. Time Spent With Patient Time: Total time managing care of this patient today ____ minutes.
--- NOTE | 2025-03-30 22:21 | PC.NURSE ---
pt is calm, awake and alert, remaining in bed. refusing vitals. accepted eliquis. pt states he understands he will f/u with hospitalist in morning. sitter in place. pt states needs are met at this time
[2025-03-31 02:53] VITALS: BP 192/81; PULSE 73; TEMP 36.4; O2SAT 84
--- NOTE | 2025-03-31 02:53 | PC.NURSE ---
awoken for vitals and found to be 84% on 2L NC. increased to 4L NC, head of bed raised, SPO2 up to 93%. pt appears calm, WOB normal. hypertensive MD notified
[2025-03-31 02:55] VITALS: PULSE 76; PULSE 82; O2SAT 93
[2025-03-31] MEDS: Potassium Chloride Packet 20 MEQ PACKET 40 MEQ PO (03:27)
[2025-03-31] MEDS: Furosemide 20 MG/2 ML VIAL IVPUSH (03:29)
--- NOTE | 2025-03-31 03:31 | PC.NURSE ---
accepted meds to help BP and O2, pt said thank you. call fely in reach, states his needs are met at this time. SPO2 98% on 2L NC - titrated supplemental SpO2 to 3L NC. no other changes.
[2025-03-31 04:48] VITALS: BP 181/81; PULSE 79
--- NOTE | 2025-03-31 04:57 | PM.EVENT ---
Event Note Date of Service: 03/31/25 Event Note: 3AM received message from nursing that pt was increasingly SOB, placed on 4L from 2L as POX decreased to 88 percent. Once on higher level of oxygen, pulse ox increased to 92%. Upon review an additional dose of Lasix was administered 20 mg IV x1. Potassium earlier in the day was 3.2 and replacement has been started. By 04:45 patient had diuresed 400 cc of urine and was decreased to 3 L from 4 L successfully. Patient has remained calm on the 1 dose of Zyprexa given earlier in the evening. One-to-one constant observation continues. Coreg being administered now as patient's blood pressure has been elevated. Patient is started on hydralazine with some good effect. Time Spent With Patient Time: Total time managing care of this patient today ____ minutes.
[2025-03-31 06:03] LABS: Anion Gap 16 (12-20); Blood Urea Nitrogen 49 mg/dL (9-16); Calcium 8.9 mg/dL (8.4-10.2); Carbon Dioxide 21 mmol/L (22-29); Chloride 108 mmol/L (96-108); Creatinine Clr Calc Pharmacy 31.9; Estimated Glomerular Filt Rate 33; Magnesium 1.8 mg/dL (1.6-2.6); Potassium 3.3 mmol/L (3.3-5.1); Sodium 142 mmol/L (135-145)
--- NOTE | 2025-03-31 06:05 | MHC.EDTECH ---
1000ml urine emptied at this time. about 3200ml total emptied through the night.
[2025-03-31 09:01] LABS: Anion Gap 14 (12-20); Blood Urea Nitrogen 48 mg/dL (9-16); Calcium 8.7 mg/dL (8.4-10.2); Carbon Dioxide 23 mmol/L (22-29); Chloride 109 mmol/L (96-108); Creatinine Clr Calc Pharmacy 33.6; Estimated Glomerular Filt Rate 35; Magnesium 1.7 mg/dL (1.6-2.6); Potassium 3.0 mmol/L (3.3-5.1); Sodium 143 mmol/L (135-145)
[2025-03-31 09:14] VITALS: BP 157/71; PULSE 60; RESP 18; O2SAT 94
[2025-03-31] MEDS: 0.9 % Sodium Chloride Flush 3 ML SYRINGE IVFLUSH (09:22)
--- NOTE | 2025-03-31 09:23 | PC.NURSE ---
Alert and oriented, refused oral K+, natalie lax and flonase, states is going home today and wants to speak to MD. aware
[2025-03-31 11:17] LABS: Cannabinoid Screen Urine Not Detected (Not Detect)
--- NOTE | 2025-03-31 11:39 | MHC.CM.PN ---
IMM 03/31/25, Pt. lives alone, PCP confirmed: Blanca Anderson, HCP on file and confirmed: Mihaela. Pt. does not use home health services or DME, He will need assistance with transport home at DC. DCP: home with services, CM to follow for DC needs.
[2025-03-31 12:13] LABS: B Type Natriuretic Peptide 1900 pg/mL (<100)
--- NOTE | 2025-03-31 12:16 | PC.NURSE ---
Turned and repositioned, incontinence care provided. Patient reports feeling better, requesting to talk to MD. MD aware and at bedside
[2025-03-31 12:26] LABS: B Type Natriuretic Peptide 1897 pg/mL (<100)
[2025-03-31 14:12] VITALS: BP 157/84; PULSE 80; RESP 16; O2SAT 93
--- NOTE | 2025-03-31 15:39 | PC.NURSE ---
Patient agitated yelling that he is leaving, provider at bedside and spoke with patient about the risks of leaving ama. Patient stating he is leaving. Daughter on speak phone with patient and also spoke with patient about her concerns of him leaving the hospital. Patient is alert and oriented and aware of leaving the hospital ama. Patient states daughter is coming to pick him up. Patient removed cardia leads, BP cuff, and male purewick. Provider aware, stating it is a discharge against medial advise.
--- NOTE | 2025-03-31 15:52 | PC.NURSE ---
Patient signed ama paperwork, stated he was not waiting in the room, ambulated to waiting room with steady gait. Educated on reasons to return to Ed, patient verbalized understanding
--- NOTE | 2025-03-31 16:46 | PM.DS ---
DS: Providers Provider Date of Service: 03/30/25 Date of admission: 03/30/25 12:28 Date of discharge: 03/31/25 Primary care physician: Blanca Anderson MD Consults: 03/30/25 22:21 Consult to Case Management Routine Comment: 2nd admission CHF exac, hypoxia, unsafe to AMA Attending physician on discharge: Diana Leal DS: Diagnosis Discharge Diagnosis (1) Acute exacerbation of CHF (congestive heart failure): Status: Acute (2) Anasarca: Status: Acute DS: Summary Hospital Course Hospital Course: 74-year-old male with a PMH significant for?HFpEF (LVEF 52%), AFib on Eliquis, ddm-olzfhse-xghkxjzrr type 2 diabetes, HTN, HLD, CAD, and hyperparathyroidism who presents to the ED with?swelling in the scrotum and penis. Pt has a recent hx of CHF exacerbation for which pt continually refuses optimal treatment as he has left AMA from the ER and inpatient multiple times, including leaving AMA from the ER on 03/19 and signing out AMA from the hospital on 03/23 and 03/26. There were questions of possible mild cognitive impairment, and pt was evaluated by psychiatry on both 813 and 818 where he was deemed to have capacity to make medical decisions on both occasions. Since leaving AMA on 03/26, patient's SOB and lower leg edema have increased. Presented earlier today to [facility] due to swelling in his penis and testicles. Was seen and evaluated and sent by ambulance to the ED for further treatment. No scrotal, abdominal, or lower leg pain. Pt also complains of intermittent chest pressure that has been ongoing for the past few days. Denies cough. Denies fever, chills, nausea, vomiting, abdominal pain. States he has been compliant with all home medications. In the ED pt was hypertensive up to 177/74, vitals otherwise stable and WNL. Satting at 91% on RA. Labs were significant for potassium 3.2, BUN 54, creatinine 2.30, T bili 1.5, alk-phos 181, CRP 4.80, and initial troponin 35.4. H&H showing stable normocytic anemia 9.2/29.5. CXR showed stable cardiac enlargement and similar wiqxk-qq-mzqicrtk sized layering right effusion. EKG demonstrated atrial fibrillation without evidence of significant ST elevations or depressions. Pt was treated in the ED with Lasix 80 mg IV. Pt is admitted to the hospital for treatment and further evaluation of anasarca in the setting of acute CHF exacerbation complicated by pt refusing optimal therapies with IV diuresing. Unfortunately, the patient demanded to be discharged home, prior to completion of medical therapy. Despite attempting to communicate with the patient, and really necessary information, he became agitated resorted to yelling and screaming demanding to be discharged. Continue to discuss the consequences of potentially leaving hospital against medical advice. - understands the risk of significant morbidity if he was to leave prior to completion of therapy - he understands the risk of readmission if he does not complete optimal therapy - he understands the possibility of if he leaves against medical advice - the patient expresses understanding Offered the patient time and space to reconsider his decision. Unfortunately, the patient decided to leave against medical advice. Status at Discharge Cognitive/behavioral status at discharge: Alert and oriented to person place time and situation. Able to relay my concerns back to me. Functional status at discharge: independent ambulation Overall status at discharge: patient is not back to baseline Time Attestation Total time managing care of this patient today: 45 mintues. Discharge Coordination Time (in mins): 5 Quality: Safe Use of Opioids Does Pt have an Active Cancer Diagnosis on the Problem List?: No Quality: Stroke Does the patient have a stroke diagnosis?: No Physical Exam Exam: Exam: General: AOx3, no acute distress Resp: Bibasilar crackles CVS: Irregular rhythm GI: NT, soft, mild distention Skin: Warm, dry : Testicular and penile edema Neuro: Cranial nerves II-XII grossly intact bilaterally. Motor grossly intact bilaterally Extremities: 3+ bilateral pitting edema Psych: Agitated, frustrated, yelling; difficult to calm down. Vital Signs: Vital Signs: Last Vital Signs Temp 97.5 F 03/31/25 02:53 Pulse 80 03/31/25 14:12 Resp 16 03/31/25 14:12 BP 157/84 H 03/31/25 14:12 Pulse Ox 93 03/31/25 14:12 O2 Del Method Nasal Cannula 03/31/25 14:12 O2 Flow Rate 3 03/31/25 14:12 BMI result Body Mass Index 25.8 DS: Data Data Completed and Pending Completed studies during hospitalization [Text1]: Procedures Dilation of Cystic Duct with Intraluminal Device, Via Natural or Artificial Opening Endoscopic (11/12/24) Drainage of Peritoneal Cavity with Drainage Device, Percutaneous Approach (11/12/24) Drainage of Peritoneal Cavity, Percutaneous Approach (11/12/24) Drainage of Right Pleural Cavity, Percutaneous Approach (12/04/24) Excision of Duodenum, Via Natural or Artificial Opening Endoscopic, Diagnostic (12/19/22) Excision of Esophagogastric Junction, Via Natural or Artificial Opening Endoscopic, Diagnostic (12/19/22) Excision of Stomach, Pylorus, Via Natural or Artificial Opening Endoscopic, Diagnostic (12/04/24) Inspection of Upper Intestinal Tract, Via Natural or Artificial Opening Endoscopic (11/12/24) Resection of Gallbladder, Percutaneous Endoscopic Approach (10/20/24) Transfusion of Nonautologous Red Blood Cells into Peripheral Vein, Percutaneous Approach (12/04/24) Labs on day of discharge: Laboratory Results - last 24 hr 03/31/25 03/31/25 03/31/25 04:51 08:26 10:53 Sodium 142 143 Potassium 3.3 3.0 L Chloride 108 109 H Carbon Dioxide 21 L 23 Anion Gap 16 14 BUN 49 H 48 H Creatinine 2.02 H 1.92 H Estim Creat Clear Calc 31.9 33.6 Estimated GFR 33 35 Random Glucose 101 107 Calcium 8.9 8.7 Magnesium 1.8 1.7 B-Natriuretic Peptide 1897 H 1900 H Urine Opiates Screen Not Detected Ur Buprenorphine Scrn Not Detected Ur Oxycodone Screen Not Detected Urine Methadone Screen Not Detected Urine Fentanyl Screen Not Detected Ur Barbiturates Screen Not Detected Ur Phencyclidine Scrn Not Detected Ur Amphetamines Screen Not Detected U Benzodiazepines Scrn Not Detected Urine Cocaine Screen Not Detected U Marijuana (THC) Screen Not Detected Discharge Plan Discharge Patient Disposition: Left Against Medical Advice Discharge Diagnosis: Acute CHF exacerbation with acute kidney injury, anasarca and hypoxic respiratory failure Referrals: Blanca Crowley MD [Primary Care Provider, Internal Medicine] - 1 Week Discharge Medications: No Action (DME) blood sugar diagnostic Strip See Rx Instructions .ROUTE BID Qty: 50 11RF Rx Instructions: Use 1 test strip once a day atorvastatin 40 mg tablet 40 mg PO DAILY Eliquis 2.5 mg tablet 2.5 mg PO BID omeprazole 40 mg Capsule,Delayed Release(Dr/Ec) 40 mg PO BID@0630,1630 Qty: 60 0RF furosemide 40 mg tablet 40 mg PO DAILY docusate sodium 100 mg Capsule 100 mg PO DAILY polyethylene glycol 3350 [Miralax] 17 gram/dose Powder 17 g PO DAILY fluticasone propionate 50 mcg/actuation [place],Suspension 1 spray INTRANASAL DAILY Rx Instructions: administer into each nostril diclofenac sodium 1 % Gel 2 g TOPICAL TID Rx Instructions: apply to single elbow, wrist or hand; for hand includes palm/fingers/back of hand ferrous sulfate 325 mg (65 mg iron) tablet 325 mg PO Q48H calcitriol 0.25 mcg capsule 0.25 mcg PO Q48H lisinopril 40 mg tablet 40 mg PO DAILY amlodipine 5 mg Tablet 5 mg PO DAILY Qty: 60 0RF Protocol: Hold for SBP< HOLD for SBP < : 90 carvedilol 6.25 mg Tablet 6.25 mg PO BID Qty: 60 0RF Protocol: Hold for SBP/HR < HOLD for SBP < : 90 HOLD for HR < : 60 (DME) blood-glucose meter Misc See Rx Instructions PO BID Qty: 1 Rx Instructions: As directed (DME) lancets Misc See Rx Instructions .ROUTE BID Qty: 100 Rx Instructions: As directed Discharge Orders: Discharge Order (Routine); Ordered 03/31/25 Ordered By: Diana Leal Stand Alone Forms: Against Medical Advice Print Language: Icelandic Care Plan Goals: Follow up with primary care Follow up with Cardiology Continue taking medications Health Concerns: Multiple sessions of leaving against medical advice. Excessively frustrated and agitated with yelling and screaming - intolerant of remaining in hospital for more than 24 hours Plan of Treatment: As above Assessment: Patient does not back to clinical baseline. Alert and oriented to person place time and situation, and able to make decisions that are against his best interest despite appropriate counseling
== END 2025-03-31 17:29 | disposition left against medical advice (07) | DRG 291 ==
LOC: HO.ED 11:11 → HO.EDOVER 12:45
PROVIDERS: Admitting Provider Student in an Organized Health Care Education/Training Program; Emergency Provider Emergency Medicine; PCP Student in an Organized Health Care Education/Training Program; Visit Provider Hospitalist
DX: I13.0 Hypertensive heart and chronic kidney disease with heart failure and stage 1 through stage 4 chronic kidney disease, or unspecified chronic kidney disease (principal); I50.31 Acute diastolic (congestive) heart failure; J96.91 Respiratory failure, unspecified with hypoxia; N18.4 Chronic kidney disease, stage 4 (severe); N17.9 Acute kidney failure, unspecified; I48.19 Other persistent atrial fibrillation; K21.9 Gastro-esophageal reflux disease without esophagitis; I42.9 Cardiomyopathy, unspecified; E78.5 Hyperlipidemia, unspecified; E11.22 Type 2 diabetes mellitus with diabetic chronic kidney disease; E87.6 Hypokalemia; D50.9 Iron deficiency anemia, unspecified; I25.10 Atherosclerotic heart disease of native coronary artery without angina pectoris; Z20.822 Contact with and (suspected) exposure to COVID-19; Z87.891 Personal history of nicotine dependence; Z79.01 Long term (current) use of anticoagulants; Z79.899 Other long term (current) drug therapy
CPT/HCPCS: 36415; 71045; 80048; 80076; 80307; 83735; 83880; 84484; 85025; 85610; 86140; 87637; 93005; 99285; J0360; J1938; J2359

== ENCOUNTER → 2025-03-30 11:02 | Outpatient (BNV) | payer OTHER, SELFPAY | PROVIDERS: Admitting Provider Student in an Organized Health Care Education/Training Program; Emergency Provider Emergency Medicine; PCP Student in an Organized Health Care Education/Training Program; Visit Provider Internal Medicine Cardiovascular Disease | DX: I48.91 Unspecified atrial fibrillation (principal) | CPT/HCPCS: 93010 ==

== ENCOUNTER → 2025-03-30 11:03 | Outpatient (BNV) | payer OTHER, SELFPAY | PROVIDERS: Emergency Provider Emergency Medicine; PCP Student in an Organized Health Care Education/Training Program; Visit Provider Radiology Diagnostic Radiology | DX: J90 Pleural effusion, not elsewhere classified (principal); I51.7 Cardiomegaly | CPT/HCPCS: 71045 ==

== ENCOUNTER → 2025-03-30 12:28 | Outpatient (BNV) | payer OTHER, SELFPAY | PROVIDERS: Admitting Provider Student in an Organized Health Care Education/Training Program; Emergency Provider Emergency Medicine; PCP Student in an Organized Health Care Education/Training Program; Visit Provider Nurse Practitioner Family | DX: I50.9 Heart failure, unspecified (principal); R60.1 Generalized edema | CPT/HCPCS: 99223; 99499 ==

== ENCOUNTER → 2025-03-30 12:28 | Outpatient (BNV) | payer OTHER, SELFPAY | PROVIDERS: Admitting Provider Student in an Organized Health Care Education/Training Program; Emergency Provider Emergency Medicine; PCP Student in an Organized Health Care Education/Training Program; Visit Provider Psychiatry & Neurology Psychiatry | DX: Z13.30 Encounter for screening examination for mental health and behavioral disorders, unspecified (principal); I50.9 Heart failure, unspecified | CPT/HCPCS: 99283 ==

== ENCOUNTER 2025-04-04 06:54 | Inpatient (IN) | payer OTHER, SELFPAY ==
--- NOTE | ~2025-04-04 | XR_ITS ---
CLINICAL HISTORY: sob Exam: PA and lateral views of the chest. Comparison: January 22, 2025. Findings: Interval increase in size of a moderate-sized right pleural effusion. There is a small left pleural effusion. There is obscuration of the inferior right heart border in the right hemidiaphragm due to the pleural effusion. Cardiac silhouette is [id number] enlarged. Central interstitial markings are diffusely prominent. Degenerative change of both shoulder joints. Impression: Congestive heart failure. This document has been electronically signed by: Ajith Muniz MD on 04/04/2025 09:51:59
[2025-04-04 07:11] VITALS: BP 164/57; PULSE 70; RESP 19; TEMP 36.6; O2SAT 94; BMI 27.4
--- NOTE | 2025-04-04 07:15 | ECG_ITS ---
Test Reason : SOB Blood Pressure : */* mmHG Vent. Rate : 65 BPM Atrial Rate : * BPM P-R Int : * ms QRS Dur : 92 ms QT Int : 450 ms P-R-T Axes : * 43 156 degrees QTcB Int : 468 ms Atrial fibrillation with a competing junctional pacemaker with premature ventricular or aberrantly conducted complexes Low voltage QRS T wave abnormality, consider lateral ischemia Prolonged QT Abnormal ECG When compared with ECG of 30-Mar-2025 11:27, Non-specific change in ST segment in Lateral leads Nonspecific T wave abnormality, improved in Inferior leads T wave inversion less evident in Lateral leads Referred By: Generic ED Physician Electronically Signed By: NICOLA DIALLO MD
--- NOTE | 2025-04-04 07:19 | PC.NURSE ---
Addendum entered by Arielle Lizarraga RN 04/04/25 08:28: Pt noted to have O2 sat in low 80's, 2L NC applied to maintain sat >90% Original Note: Pt BIBA for c/o genital swelling, on arrival pt noted to have edema and redness to BLE and FRANCIS. A/O x 4, reports pain in BLE 7/10. Scabbing and blisters noted to bilateral ankles. Maintaining O2 >90% on room air. EKG and labs pending..
--- OUTSIDE RECORDS SUMMARY | 2025-04-04 07:46 | XMS_ITS | Encounter Summary ---
Author Organization [employer] Address [address] [place] [address] Care Team Providers Care Heating Element Winder Name Role Phone Jarad Lundy MD Primary Care Provider [phone] Encounter Details Date Type Department Care Team (Late st Contact Info) Description 12/17/2024 Lab Requisition [facility] - Main Lab [address] [facility] [place] [address] Jarad Lundy MD [address] [place] [id number] Anemia, unspecified; Chronic kidney disease, stage 3a [...] K/mcL LAB HEMETOLOGY METHOD 12/17/2024 9:04 AM [facility] RBC 3.60(L) 4.50 - 5.50 M/mcL LAB HEMETOLOGY METHOD 12/17/2024 9:04 AM [facility] Hemoglobin 10.7(L) 13.5 - 17.5 g/dL LAB HEMETOLOGY METHOD 12/17/2024 9:04 AM [facility] Hematocrit 32.4(L) 42.0 - 54.0 % LAB HEMETOLOGY METHOD 12/17/2024 9:04 AM [facility] MCV 90.0 79.0 - 98.0 FL LAB HEMETOLOGY METHOD 12/17/2024 9:04 AM [facility] MCH 29.7 27.0 - 32.0 pcg LAB HEMETOLOGY METHOD 12/17/2024 9:04 AM [facility] MCHC 33.0 32.0 - 37.0 g/dL LAB HEMETOLOGY METHOD 12/17/2024 9:04 AM [facility] RDW 16.6(H) 11.0 - 15.0 % LAB HEMETOLOGY METHOD 12/17/2024 9:04 AM [facility] Platelets 335 130 - 400 K/mcL LAB HEMETOLOGY METHOD 12/17/2024 9:04 AM [facility] MPV 9.1 7.0 - 11.0 FL LAB HEMETOLOGY METHOD 12/17/2024 9:04 AM [facility] NRBC 0.0 <1.0 % LAB HEMETOLOGY METHOD 12/17/2024 9:04 AM [facility] NRBC Absolute 0.00 <0.10 K/mcL LAB HEMETOLOGY METHOD 12/17/2024 9:04 AM [facility] Neutrophils Relative 76.7 % LAB HEMETOLOGY METHOD 12/17/2024 9:04 AM [facility] Lymphocytes Relative 16.2 % LAB HEMETOLOGY METHOD 12/17/2024 9:04 AM [facility] Monocytes Relative 5.4 % LAB HEMETOLOGY METHOD 12/17/2024 9:04 AM [facility] Eosinophils Relative 0.8 % LAB HEMETOLOGY METHOD 12/17/2024 9:04 AM [facility] Basophils Relative 0.2 % LAB HEMETOLOGY METHOD 12/17/2024 9:04 AM [facility] Immature Granulocytes Relative 0.7 % LAB HEMETOLOGY METHOD 12/17/2024 9:04 AM [facility] Neutrophils Absolute 8.40(H) 1.50 - 7.00 K/mcL LAB HEMETOLOGY METHOD 12/17/2024 9:04 AM [facility] Lymphocytes Absolute 1.78 1.00 - 5.00 K/mcL LAB HEMETOLOGY METHOD 12/17/2024 9:04 AM [facility] Monocytes Absolute 0.59 0.20 - 1.00 K/mcL LAB HEMETOLOGY METHOD 12/17/2024 9:04 AM [facility] Eosinophils Absolute 0.09 0.00 - 0.50 K/mcL LAB HEMETOLOGY METHOD 12/17/2024 9:04 AM [facility] Basophils Absolute 0.02 0.00 - 0.20 K/mcL LAB HEMETOLOGY METHOD 12/17/2024 9:04 AM [facility] Immature Granulocytes Absolute 0.08(H) 0.00 - 0.03 K/mcL LAB HEMETOLOGY METHOD 12/17/2024 9:04 AM [facility] Blood Venous blood specimen / Unknown Venipuncture / Unknown 12/17/2024 4:55 AM EDT 12/17/2024 8:39 AM EDT us Jarad Lundy MD LAB BLOOD ORDERABLES Final Resu lt [facility] [address] [place] [address], [place] [phone] * (ABNORMAL) Basic metabolic panel (12/17/2024 4:55 AM EDT) Sodium 141 133 - 145 mmol/L LAB CHEMISTRY METHOD 12/17/2024 9:22 AM [facility] Potassium 3.5 3.5 - 5.5 mmol/L LAB CHEMISTRY METHOD 12/17/2024 9:22 AM [facility] Chloride 107 96 - 110 mmol/L LAB CHEMISTRY METHOD 12/17/2024 9:22 AM [facility] CO2 27 21 - 32 mmol/L LAB CHEMISTRY METHOD 12/17/2024 9:22 AM [facility] Anion Gap 7 3 - 11 LAB CHEMISTRY METHOD 12/17/2024 9:22 AM [facility] Glucose 61(L) 70 - 100 mg/dL LAB CHEMISTRY METHOD 12/17/2024 9:22 AM [facility] BUN 26(H) 5 - 25 mg/dL LAB CHEMISTRY METHOD 12/17/2024 9:22 AM [facility] Creatinine 1.61(H) 0.70 - 1.30 mg/dL LAB CHEMISTRY METHOD 12/17/2024 9:22 AM [facility] eGFR 45(L) >=60 mL/min/1. 73m2 LAB CHEMISTRY METHOD 12/17/2024 9:22 AM EDT [facility] Comment:Calculation based on the Chronic Kidney Disease Epidemiology Collaboration (CKD-EPI) equation refit without adjustment for race. BUN/Creatinine Ratio 16.1 LAB CHEMISTRY METHOD 12/17/2024 9:22 AM EDT [facility] Calcium 8.2(L) 8.5 - 10.5 mg/dL LAB CHEMISTRY METHOD 12/17/2024 9:22 AM EDT [facility] Blood Venous blood specimen / Unknown Venipuncture / Unknown 12/17/2024 4:55 AM EDT 12/17/2024 8:39 AM EDT us Jarad Lundy MD LAB BLOOD ORDERABLES Final Resu lt [facility] [address] [place] [address], documented in this encounter Visit Diagnoses Diagnosis Anemia, unspecified Chronic kidney disease, stage 3a (CMS/HCC V24, CMS/HCC V28) documented in this encounter Care Teams Heating Element Winder Relationship Specialty Start Date End Date Jarad Lundy MD [address] [place] [phone] PCP - General Hospitalist Medicine 12/17/24 documented as of this encounter
--- OUTSIDE RECORDS SUMMARY | 2025-04-04 07:46 | XMS_ITS | Encounter Summary ---
Author Organization [employer] Address [address] [place] [address] Care Team Providers Care Process Validation Engineer Name Role Phone Cynthia Marshall NP Primary Care Provider [phone] Encounter Details Date Type Department Care Team ([facility] st Contact Info) Description 09/26/2024 Orders Only [facility] [address] [place], [place] [phone] Cynthia Marshall NP [address] [place] [address] Stage 3b chronic kidney disease (CMS/HCC) Social [...] documented as of this encounter Care Teams Process Validation Engineer Relationship Specialty Start Date End Date Cynthia Marshall NP [address] [place] [id number] PCP - General Family Medicine 09/10/23 Katelyn-Luis 01/01/25 documented as of this encounter
--- OUTSIDE RECORDS SUMMARY | 2025-04-04 07:46 | XMS_ITS | Encounter Summary ---
Author Organization [facility] Address [address] [place] [address] Phone Care Team Providers Care Farmhand Name Role Phone Arielle Godinez Primary Care Provider Unavailabl e Encounter Details Date Type Department Care Team (Late st Contact Info) Description 01/03/2024 Office Communication [facility] [address] [place] [address] Soy Meléndez MD [address] [facility] [address] [place] [address] Social History Tobacco Use Types [...] on filedocumented in this encounter Care Teams Farmhand Relationship Specialty Start Date End Date Arielle Godinez PCP - General Family Medicine 08/10/21 documented as of this encounter
[2025-04-04 07:48] LABS: MANUAL DIFF FLAG NO
[2025-04-04 07:49] LABS: Hematocrit 28.0 % (42.0-52.0); Hemoglobin 8.6 g/dl (14.0-18.0); Imm Gran Abs Auto 0.01 X10*3/uL (0.00-0.03); Imm Gran Pct Auto 0.2 % (0.0-0.4); Lymphocytes Absolute Auto 0.7 X10*3/uL (1.2-4.9); Mean Corpuscular HGB Conc 30.7 g/dl (31.0-36.0); Mean Corpuscular Hemoglobin 26.5 pg (27.0-33.0); Mean Corpuscular Volume 86.2 fL (80.0-98.0); NRBC Abs Auto 0.000 X10*3/uL (0.0-0.012); NRBC Pct Auto 0.0 /100WBC (0.0-0.2); Platelet Count 171 X10*3/uL (160-400); Red Blood Count 3.25 X10*6/uL (4.60-5.80); White Blood Count 4.6 X10*3/uL (4.8-10.8)
[2025-04-04 07:52] LABS: VBG HCO3 27 mmol/L (22-26); VBG O2 % Saturation 51.0 %
[2025-04-04 07:52] LABS: Venous Blood Gas Refer to POC result
[2025-04-04 08:19] LABS: Alanine Aminotransferase 19 U/L (0-40); Albumin Level 3.1 g/dL (3.5-5.0); Alkaline Phosphatase 158 U/L (39-117); Anion Gap 14 (12-20); Aspartate Amino Transferase 31 U/L (5-37); Blood Urea Nitrogen 58 mg/dL (9-16); Calcium 8.8 mg/dL (8.4-10.2); Carbon Dioxide 25 mmol/L (22-29); Chloride 107 mmol/L (96-108); Creatinine Clr Calc Pharmacy 25.1; Estimated Glomerular Filt Rate 25; Potassium 4.1 mmol/L (3.3-5.1); Sodium 142 mmol/L (135-145); Total Protein 6.8 g/dL (6.5-8.0)
[2025-04-04 08:29] VITALS: O2SAT 80
[2025-04-04 08:30] VITALS: O2SAT 98
[2025-04-04 08:32] LABS: B Type Natriuretic Peptide 1719 pg/mL (<100)
--- NOTE | 2025-04-04 09:04 | PM.DS ---
DS: Providers Provider Date of Service: 03/26/25 Date of discharge: 03/26/25 Primary care physician: Blanca Anderson MD Attending physician on discharge: Stefan Edward Discharging clinician: Gladys Villavicencio DS: Summary Hospital Course Hospital Course: From H&P on the day of admission This is a 74-year-old [place] Citizen-speaking male with multiple medical problems including CHF who presents to the emergency department today with complaints of dyspnea and leg swelling. He was admitted to the hospital for acute CHF exacerbation on March 23 however he left against medical advice. He also left against medical advice from the Department on March 19. Today he was noted to be hypoxic on arrival with oxygen saturation of 89% on room air. Chest x-ray again shows mild vascular congestion with right pleural effusion, BNP is elevated. Patient is agreeable to stay in the hospital. He states that he has shortness of the breath while lying flat and with ambulation. He reports taking his medication as prescribed but is unsure if he takes a water pill at home however previous notes indicate that he has a history of medication noncompliance. Overall patient is somewhat vague and became frustrated in the middle my evaluation that he had to urinate and terminated the remainder of the evaluation. Acute hypoxic respiratory failure in the setting of acute exacerbation of HFpEF/right pleural effusion Pt with SOB, FRANCIS, CXR with pulmonary edema and pleural effusion, edema, elevated BNP, and desatting to 89% on RA. Treated with IV lasix. Diuresing well. Unfortunately on the evening of 03/26, the patient decided to leave ama again. The risks of leaving were discussed and he understands. He has left AMA multiple previous times and therefore he was seen by the psychiatric team and deemed to have capacity to make medical decisions. Time Attestation Discharge Coordination Time (in mins): 30 Quality: Safe Use of Opioids Does Pt have an Active Cancer Diagnosis on the Problem List?: No Quality: Stroke Does the patient have a stroke diagnosis?: No Physical Exam Vital Signs: Vital Signs: Last Vital Signs Temp 97.8 F 04/04/25 07:11 Pulse 70 04/04/25 07:11 Resp 19 04/04/25 07:11 BP 164/57 H 04/04/25 07:11 Pulse Ox 98 04/04/25 08:30 O2 Del Method Nasal Cannula 04/04/25 08:30 O2 Flow Rate 2 04/04/25 08:30 BMI result Body Mass Index 27.4 Const: Other: see progress note on the day of discharge, physical exam unchanged. DS: Data Data Completed and Pending Completed studies during hospitalization [Text1]: Procedures Dilation of Cystic Duct with Intraluminal Device, Via Natural or Artificial Opening Endoscopic (11/12/24) Drainage of Peritoneal Cavity with Drainage Device, Percutaneous Approach (11/12/24) Drainage of Peritoneal Cavity, Percutaneous Approach (11/12/24) Drainage of Right Pleural Cavity, Percutaneous Approach (12/04/24) Excision of Duodenum, Via Natural or Artificial Opening Endoscopic, Diagnostic (12/19/22) Excision of Esophagogastric Junction, Via Natural or Artificial Opening Endoscopic, Diagnostic (12/19/22) Excision of Stomach, Pylorus, Via Natural or Artificial Opening Endoscopic, Diagnostic (12/04/24) Inspection of Upper Intestinal Tract, Via Natural or Artificial Opening Endoscopic (11/12/24) Resection of Gallbladder, Percutaneous Endoscopic Approach (10/20/24) Transfusion of Nonautologous Red Blood Cells into Peripheral Vein, Percutaneous Approach (12/04/24) Labs on day of discharge: Laboratory Results - last 24 hr 04/04/25 04/04/25 07:42 07:48 WBC 4.6 L RBC 3.25 L Hgb 8.6 L Hct 28.0 L MCV 86.2 MCH 26.5 L MCHC 30.7 L RDW 17.8 H Plt Count 171 MPV 9.0 L Immature Gran % (Auto) 0.2 Neut % (Auto) 72.2 Lymph % (Auto) 16.0 L [place] % (Auto) 8.6 Eos % (Auto) 2.8 Baso % (Auto) 0.2 Lymph # (Auto) 0.7 L [place] # (Auto) 0.4 Eos # (Auto) 0.1 Baso # (Auto) 0.0 Abs Immat Gran (auto) 0.01 Absolute Neuts (auto) 3.3 Absolute Nucleated RBC 0.000 Nucleated RBC % (auto) 0.0 VBG pH 7.44 H VBG pCO2 40 VBG pO2 39 VBG HCO3 27 H VBG O2 Saturation 51.0 VBG Base Excess 3.3 Sodium 142 Potassium 4.1 D Chloride 107 Carbon Dioxide 25 Anion Gap 14 BUN 58 H Creatinine 2.57 H Estim Creat Clear Calc 25.1 Estimated GFR 25 Random Glucose 104 Calcium 8.8 Total Bilirubin 0.9 AST 31 ALT 19 Alkaline Phosphatase 158 H B-Natriuretic Peptide 1719 H Total Protein 6.8 Albumin 3.1 L Discharge Plan Discharge Clinical Impression: Congestive heart failure Patient Disposition: Left Against Medical Advice Prescriptions: No Action (DME) blood sugar diagnostic Strip See Rx Instructions .ROUTE BID Qty: 50 11RF Rx Instructions: Use 1 test strip once a day atorvastatin 40 mg tablet 40 mg PO DAILY Eliquis 2.5 mg tablet 2.5 mg PO BID omeprazole 40 mg Capsule,Delayed Release(Dr/Ec) 40 mg PO BID@0630,1630 Qty: 60 0RF furosemide 40 mg tablet 40 mg PO DAILY docusate sodium 100 mg Capsule 100 mg PO DAILY polyethylene glycol 3350 [Miralax] 17 gram/dose Powder 17 g PO DAILY fluticasone propionate 50 mcg/actuation [place],Suspension 1 spray INTRANASAL DAILY Rx Instructions: administer into each nostril diclofenac sodium 1 % Gel 2 g TOPICAL TID Rx Instructions: apply to single elbow, wrist or hand; for hand includes palm/fingers/back of hand ferrous sulfate 325 mg (65 mg iron) tablet 325 mg PO Q48H calcitriol 0.25 mcg capsule 0.25 mcg PO Q48H lisinopril 40 mg tablet 40 mg PO DAILY amlodipine 5 mg Tablet 5 mg PO DAILY Qty: 60 0RF Protocol: Hold for SBP< HOLD for SBP < : 90 carvedilol 6.25 mg Tablet 6.25 mg PO BID Qty: 60 0RF Protocol: Hold for SBP/HR < HOLD for SBP < : 90 HOLD for HR < : 60 (DME) blood-glucose meter Misc See Rx Instructions PO BID Qty: 1 Rx Instructions: As directed (DME) lancets Misc See Rx Instructions .ROUTE BID Qty: 100 Rx Instructions: As directed Referrals: Blanca Crowley MD [Primary Care Provider, Internal Medicine] Print Language: [place] Citizen
--- NOTE | 2025-04-04 09:49 | ED_ITS ---
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 Of note, patient left against medical advice from a hospital admission for congestive heart failure on the 31 of March. He has had multiple ER visits for similar symptoms. Has had a psychiatric evaluation and was judged to have capacity in March. patient denies shortness of breath, chest pain, cough, fevers, pain in the legs. He is able to void independently. He does report that he has had some weight gain but is unable to quantify. He has been taking his medications as prescribed. He does report orthopnea. Related Data Home Medications ?Medication ?Instructions ?Recorded ?Confirmed blood-glucose meter #1 ea 05/14/20 01/14/24 lancets #100 ea 05/14/20 01/14/24 atorvastatin 40 mg tablet 40 mg PO DAILY 12/19/2203/14 lisinopril 40 mg tablet 40 mg PO DAILY 10/20/2403/14 apixaban 2.5 mg tablet (Eliquis) 2.5 mg PO BID 12/05/ 5 04/04/25 furosemide 40 mg tablet 40 mg PO DAILY 03/23/2503/14 calcitriol 0.25 mcg capsule 0.25 mcg PO Q48H 03/30/25 04/04/25 ferrous sulfate 325 mg (65 mg 325 mg PO BID 03/30/25 0 04/04/25 iron) tablet Previous Rx's ?Medication ?Instructions ?Recorded blood sugar diagnostic #50 ea 01/24/21 omeprazole 40 mg capsule,delayed 40 mg PO BID@0630,163 0 #60 caps 12/16/24 release amlodipine 5 mg tablet 5 mg PO DAILY #60 tabs 01/29 carvedilol 6.25 mg tablet 6.25 mg PO BID #60 tabs 01/11 05/07 Allergies Allergy/AdvReac Type Severity Reaction Status Date / Time No Known Allergies (No Known Allergy Verified 04/04/25 07:13 Allergies*) Review of Systems 2 Review of Systems: Yes all other systems are reviewed and are negative Constitutional: Constitutional: Reports no additional constitutional complaints, Denies body ache(s), Denies chills, Denies fever(s), Denies headache(s) and Denies weakness Eyes: Eyes: Reports no additional eye complaints and Denies change in vision ENT: Reports system reviewed and no additional complaints, except as documented, Denies dizziness, Denies headache(s), Denies nasal congestion, Denies nasal discharge and Denies neck pain Cardiovascular: Cardiovascular: Reports no additional cardiovascular complaints, Denies chest pain, Reports leg edema, Denies dyspnea and Reports orthopnea Respiratory: Respiratory: Reports no additional respiratory complaints, Denies cough and Denies dyspnea Gastrointestinal: Gastrointestinal: Reports no additional gastrointestinal complaints, Denies abdominal pain, Denies diarrhea, Denies nausea and Denies vomiting Genitourinary: Genitourinary: Denies urinary incontinence Musculoskeletal: Musculoskeletal: Reports no additional musculoskeletal complaints, Denies back pain, Denies arthralgias, Denies joint swelling, Denies neck pain, Denies numbness and Denies tingling Integumentary/Breasts: Skin/Breast: Reports system reviewed and no additional complaints, except as docu and Denies rash Neurologic: Reports system reviewed and no additional complaints, except as documented, Denies Abnormal speech present, Denies dizziness, Denies headache(s), Denies numbness, Denies tingling and Denies weakness PMFSH Past Medical History Attestation statement: The following information was validated with the patient. Source: old records reviewed and nursing notes reviewed Medical History Anemia in chronic kidney disease (CKD) Hypertension Uncontrolled hypertension Congestive heart failure CKD (chronic kidney disease) CHF (congestive heart failure) CKD (chronic kidney disease) stage 4, GFR 15-29 ml/min Obesity (BMI 30.0-34.9) Cardiomyopathy Stroke Chronic atrial fibrillation CKD (chronic kidney disease) Former smoker Depression Diabetes High cholesterol Surgical History History of aneurysm History of shoulder surgery Family History Family History Father No problems noted. Mother Diabetes Hypertension Cancer Son No problems noted. Son No problems noted. Son No problems noted. Daughter No problems noted. Daughter No problems noted. Social History Social History Household Members: None Household Members Other:: Housing: Apartment Are you a primary career guidance counselor to a significant other at home: No Do you presently have visiting nurse or other home services: Yes Unable to assess alcohol history related to: Unknown Alcohol intake: never Patient Tobacco Use Status: Former Tobacco user Smoked in Last 30 Days: No Use of substances other than those prescribed or required for medical reasons: No Substance Use Type: Marijuana Advance Directives: Yes Advance Directives on File: Yes Advance Directives Date on File: 12/17/24 service: No Current occupational status: disabled Physical Exam ED Vital Signs: Vital Signs - 24 hr 04/04/25 07:11 04/04/25 08:29 04/04/25 08:30 Temperature 97.8 F Pulse Rate 70 Respiratory Rate 19 Blood Pressure 164/57 H Pulse Oximetry 94 80 L 98 Oxygen Delivery Method Room Air Room Air Nasal Cannula Oxygen Flow Rate 2 04/04/25 10:03 Temperature Pulse Rate Respiratory Rate Blood Pressure 158/72 H Pulse Oximetry Oxygen Delivery Method Oxygen Flow Rate BMI result Body Mass Index 27.4 Const General: cooperative, healthy appearing, comfortable and no acute distress Orientation/consciousness: patient oriented x3 Limitations: no limitations HENMT Head: Yes normal to inspection Ears: hearing grossly normal bilaterally General nose exam: Normal external nose present Face and sinus: Yes normal facial exam Mouth: Normal oral and palatal mucosa present Throat: Yes posterior oropharynx normal Eyes General: appearance normal, both eyes and all related structures Pupils: Equal, round and reactive pupils present Neck Neck: Yes normal visual inspection Chest Chest palpation & inspection: normal inspection of the chest Resp Effort & Inspection: normal respiratory effort Auscultation: crackles and wheezes Cardio Rate: regular rate Rhythm: regular rhythm Peripheral pulses: Peripheral pulses 2+ throughout GI Inspection: Yes normal to inspection Palpation (GI): Soft to palpation and nontender Auscultation: normal bowel sounds Back/Spine/Pelvis Thoracic/Lumbar Spine: thoracic and lumbar spine normal to inspection Skin General skin exam: no rashes or lesions noted Neuro General: patient oriented x3, no focal motor deficits and normal sensation to monofilament Cranial nerves: Yes Equal, round and reactive pupils present Cognition (Neuro): normal cognition Speech: No Abnormal speech present Gait exam (Neuro): Normal gait present Motor exam (neuro): 5/5 motor strength present throughout Extrem Other: patient has pitting edema which extends to the groin. No calf tenderness. normal palpable pulses Medications Administered Discontinued Medications Generic Name Dose Route Start Last Admin Trade Name Damian PRN Reason Stop Dose Admin Furosemide 80 mg 04/04/25 09:25 04/04/25 10:03 Furosemide 100 Mg/10 Ml Vial IVPUSH 04/04/25 09:26 80 mg ONCE ONE Administration Protocol Medical Decision Making Medical Decision Making [facility] Narrative: 74-year-old male with a history of congestive heart failure, hypertension, chronic kidney disease, cardiomyopathy, chronic atrial fibrillation (on apixaban) who presents the ER with concerns of bilateral lower extremity swelling and genital swelling. Of note, patient left against medical advice from a hospital admission for congestive heart failure on the 31 of March. He has had multiple ER visits for similar symptoms. Has had a psychiatric evaluation and was judged to have capacity in March. patient denies shortness of breath, chest pain, cough, fevers, pain in the legs. He is able to void independently. He does report that he has had some weight gain but is unable to quantify. He has been taking his medications as prescribed. He does report orthopnea. On arrival the patient is hypertensive with a pulse oximeter of 80% on room air. this improved to greater than 90% on 2 L. he has bilateral lower extremity pitting edema which extends to the groin. he has fine crackles and some mild expiratory wheezing he appears to be in congestive heart failure recommended admission. initially patient declined but then agreed. will obtain labs, EKG, chest x-ray, viral testing. Patient will receive 80 mg of IV Lasix Differential Diagnosis Differential Diagnoses: The differential diagnosis associated with the presentation includes CHF Admission/Observation Consideration of admission/observation: Escalation of care including admission/observation considered CHF exacerbation with hypoxia requires admit Consult Healthcare Provider Management of the patient was discussed with: Hospitalist Joo (accepted) Lab Data [facility] Lab Attestation statement: I reviewed the patient's lab results. 04/04/25 07:42 04/04/25 07:42 Labs: Lab Results 04/04/25 04/04/25 04/04/25 Range/Units 07:42 07:48 09:25 WBC 4.6 L (4.8-10.8) X10*3/uL RBC 3.25 L (4.60-5.80) X10*6/uL Hgb 8.6 L (14.0-18.0) g/dl Hct 28.0 L (42.0-52.0) % MCV 86.2 (80.0-98.0) fL MCH 26.5 L (27.0-33.0) pg MCHC 30.7 L (31.0-36.0) g/dl RDW 17.8 H (11.0-16.0) % Plt Count 171 (160-400) X10*3/uL MPV 9.0 L (9.4-12.4) fL Immature Gran % (Auto) 0.2 (0.0-0.4) % Neut % (Auto) 72.2 (45-73) % Lymph % (Auto) 16.0 L (20-40) % [place] % (Auto) 8.6 (2-11) % Eos % (Auto) 2.8 (0-4) % Baso % (Auto) 0.2 (0-2) % Lymph # (Auto) 0.7 L (1.2-4.9) X10*3/uL [place] # (Auto) 0.4 (0.1-1.2) X10*3/uL Eos # (Auto) 0.1 (0.0-0.4) X10*3/uL Baso # (Auto) 0.0 (0.0-0.2) X10*3/uL Abs Immat Gran (auto) 0.01 (0.00-0.03) X10*3/uL Absolute Neuts (auto) 3.3 (2.0-8.3) x10*3/uL Absolute Nucleated RBC 0.000 (0.0-0.012) X10*3/uL Nucleated RBC % (auto) 0.0 (0.0-0.2) /100WBC VBG pH 7.44 H (7.32-7.43) VBG pCO2 40 mmHg VBG pO2 39 mmHg VBG HCO3 27 H (22-26) mmol/L VBG O2 Saturation 51.0 % VBG Base Excess 3.3 mmol/L Sodium 142 (135-145) mmol/L Potassium 4.1 D (3.3-5.1) mmol/L Chloride 107 (96-108) mmol/L Carbon Dioxide 25 (22-29) mmol/L Anion Gap 14 (12-20) BUN 58 H (9-16) mg/dL Creatinine 2.57 H (0.5-1.4) mg/dL Estim Creat Clear Calc 25.1 Estimated GFR 25 Random Glucose 104 (60-115) mg/dL Calcium 8.8 (8.4-10.2) mg/dL Total Bilirubin 0.9 (0.0-1.0) mg/dL AST 31 (5-37) U/L ALT 19 (0-40) U/L Alkaline Phosphatase 158 H (39-117) U/L B-Natriuretic Peptide 1719 H (<100) pg/mL Total Protein 6.8 (6.5-8.0) g/dL Albumin 3.1 L (3.5-5.0) g/dL Urine Color Urine Appearance Urine pH (5.0-9.0) Ur Specific [place] (1.005-1.025) Urine Protein (Neg-Trace) mg/dL Urine Glucose (UA) (Negative) mg/dL Urine Ketones (Negative) mg/dL Urine Blood (Negative) Urine Nitrite (Negative) Ur Leukocyte Esterase (Negative) Urine RBC (0-2) /HPF Urine WBC (0-5) /HPF Ur Squamous Epith Cells (0-2) /HPF Urine Bacteria (None Seen) Hyaline Casts (0-2) /LPF Influenza Type A (PCR) NEGATIVE (Negative) Influenza Type B (PCR) NEGATIVE (Negative) RSV RNA Qual (PCR) NEGATIVE (Negative) SARS-CoV-2 RNA (RT-PCR) NEGATIVE (Negative) 04/04/25 Range/Units 10:11 WBC (4.8-10.8) X10*3/uL RBC (4.60-5.80) X10*6/uL Hgb (14.0-18.0) g/dl Hct (42.0-52.0) % MCV (80.0-98.0) fL MCH (27.0-33.0) pg MCHC (31.0-36.0) g/dl RDW (11.0-16.0) % Plt Count (160-400) X10*3/uL MPV (9.4-12.4) fL Immature Gran % (Auto) (0.0-0.4) % Neut % (Auto) (45-73) % Lymph % (Auto) (20-40) % [place] % (Auto) (2-11) % Eos % (Auto) (0-4) % Baso % (Auto) (0-2) % Lymph # (Auto) (1.2-4.9) X10*3/uL [place] # (Auto) (0.1-1.2) X10*3/uL Eos # (Auto) (0.0-0.4) X10*3/uL Baso # (Auto) (0.0-0.2) X10*3/uL Abs Immat Gran (auto) (0.00-0.03) X10*3/uL Absolute Neuts (auto) (2.0-8.3) x10*3/uL Absolute Nucleated RBC (0.0-0.012) X10*3/uL Nucleated RBC % (auto) (0.0-0.2) /100WBC VBG pH (7.32-7.43) VBG pCO2 mmHg VBG pO2 mmHg VBG HCO3 (22-26) mmol/L VBG O2 Saturation % VBG Base Excess mmol/L Sodium (135-145) mmol/L Potassium (3.3-5.1) mmol/L Chloride (96-108) mmol/L Carbon Dioxide (22-29) mmol/L Anion Gap (12-20) BUN (9-16) mg/dL Creatinine (0.5-1.4) mg/dL Estim Creat Clear Calc Estimated GFR Random Glucose (60-115) mg/dL Calcium (8.4-10.2) mg/dL Total Bilirubin (0.0-1.0) mg/dL AST (5-37) U/L ALT (0-40) U/L Alkaline Phosphatase (39-117) U/L B-Natriuretic Peptide (<100) pg/mL Total Protein (6.5-8.0) g/dL Albumin (3.5-5.0) g/dL Urine Color Yellow Urine Appearance Clear Urine pH 6.0 (5.0-9.0) Ur Specific [place] 1.015 (1.005-1.025) Urine Protein 100 (2+) H (Neg-Trace) mg/dL Urine Glucose (UA) Negative (Negative) mg/dL Urine Ketones Negative (Negative) mg/dL Urine Blood Negative (Negative) Urine Nitrite Negative (Negative) Ur Leukocyte Esterase Trace H (Negative) Urine RBC 0-2 (0-2) /HPF Urine WBC 0-5 (0-5) /HPF Ur Squamous Epith Cells 0-2 (0-2) /HPF Urine Bacteria None Seen (None Seen) Hyaline Casts 0-2 (0-2) /LPF Influenza Type A (PCR) (Negative) Influenza Type B (PCR) (Negative) RSV RNA Qual (PCR) (Negative) SARS-CoV-2 RNA (RT-PCR) (Negative) Independent Interpretation I performed an independent interpretation of an: EKG and Plain X-Ray Interpretation: I independently reviewed the EKG which shows AFib with a rate of 65 I independently viewed the chest x-ray and agree with the radiology report Radiology Impression Discussion of test interpretation with radiology: I have reviewed the radiologist's reading. Radiologist Impression: [place] [id number] XRay Report Signed Patient: Ethan Cristina MR#: [id number] : 1950 Acct:[id number] Age/Sex: 74 / M ADM Date: 04/04/25 Loc: .ED Attending Dr: Ordering Physician: Ernestine Vazquez NP Date of Service: 04/04/25 Procedure(s): XR chest 2V Accession Number(s): [id number] cc: Ernestine Vazquez NP; Blanca Crowley MD~ CLINICAL HISTORY: sob Exam: PA and lateral views of the chest. Comparison: January 22, 2025. Findings: Interval increase in size of a moderate-sized right pleural effusion. There is a small left pleural effusion. There is obscuration of the inferior right heart border in the right hemidiaphragm due to the pleural effusion. Cardiac silhouette is [id number] enlarged. Central interstitial markings are diffusely prominent. Degenerative change of both shoulder joints. Impression: Congestive heart failure. Critical Care Time Critical Care Time Critical Care Time: Yes Total Critical Care Time: 60 Attestation: Time includes: direct patient care, patient reassessment, coordination of patient care, interpretation of data (laboratory data, pulse oximetry, and chest xrays), review of patient's medical records, medical consultation and documentation of patient care. Discharge Plan Discharge Clinical Impression: Congestive heart failure Patient Disposition: Left Against Medical Advice
[2025-04-04 10:03] VITALS: BP 158/72
[2025-04-04] MEDS: Furosemide 100 MG/10 ML VIAL 80 MG IVPUSH (10:03)
[2025-04-04 10:09] LABS: Resp Syncy Virus RNA Qual PCR NEGATIVE (Negative); SARS COV2 PCR INHOUSE NEGATIVE (Negative)
[2025-04-04 10:20] LABS: Appearance Urine Clear; Glucose Urine UA Negative (Negative); PH 6.0 (5.0-9.0); Specific Gravity - Urine 1.015 (1.005-1.025); UMIC TRIGGER UACC YES
--- NOTE | 2025-04-04 10:37 | PHA.MEDREC ---
Pharmacy Consult ? Medication Reconciliation Pharmacy has completed the medication reconciliation. Patient recently discharged, noted to be poor historian with home meds. Utilized claim history
--- NOTE | 2025-04-04 10:48 | PM.IMHP ---
History of Present Illness Date of Service: 04/04/25 Attending physician on admission: Diana Leal Chief Complaint: sob This is a 74-year-old male with history of CHF and multiple other medical issues who presents to the emergency department due to shortness of breath. Patient has been in and out of the hospital over the past several weeks for CHF exacerbation but unfortunately has left against medical advice on 4 or 5 occasions. He has seen by the psychiatric team twice who has deemed him to have capacity to make medical decisions. Today he presented with shortness of breath, on arrival he was noted to have an oxygen saturation of 80% on room air, this improved to 98% on 2 L. he reports shortness of breath primarily with exertion, denies any associated chest pain or palpitations. He does endorse ongoing lower extremity edema. He reports compliance with medication and a low-sodium diet although he can not name the medications that he takes on a daily basis and he is not sure if he has visiting nurses or not. Creatinine is elevated at 2.57, BNP 1719. He received a dose of IV Lasix and the decision was made to admit him to the hospital for further management. Review of Systems Review of Systems: Yes all other systems are reviewed and are negative Constitutional: Constitutional: Denies chills and Denies fever(s) Cardiovascular: Cardiovascular: Denies chest pain, Denies palpitations and Reports dyspnea Respiratory: Respiratory: Reports dyspnea Gastrointestinal: Gastrointestinal: Denies nausea and Denies vomiting Endocrine: Endocrine: Denies palpitations [facility] Medical History Anemia in chronic kidney disease (CKD) Hypertension Uncontrolled hypertension Congestive heart failure CKD (chronic kidney disease) CHF (congestive heart failure) CKD (chronic kidney disease) stage 4, GFR 15-29 ml/min Obesity (BMI 30.0-34.9) Cardiomyopathy Stroke Chronic atrial fibrillation CKD (chronic kidney disease) Former smoker Depression Diabetes High cholesterol Family History Father No problems noted. Mother Diabetes Hypertension Cancer Son No problems noted. Son No problems noted. Son No problems noted. Daughter No problems noted. Daughter No problems noted. Surgical History History of aneurysm History of shoulder surgery Social History Household Members: None Household Members Other:: Housing: Apartment Are you a primary direct care staffer to a significant other at home: No Do you presently have visiting nurse or other home services: Yes Unable to assess alcohol history related to: Unknown Alcohol intake: never Patient Tobacco Use Status: Former Tobacco user Smoked in Last 30 Days: No Use of substances other than those prescribed or required for medical reasons: No Substance Use Type: Marijuana Advance Directives: Yes Advance Directives on File: Yes Advance Directives Date on File: 12/17/24 service: No Current occupational status: disabled Meds Allergies Allergy/AdvReac Type Severity Reaction Status Date / Time No Known Allergies (No Known Allergy Verified 04/04/25 07:13 Allergies*) Active Medications: Current Medications Acetaminophen (Acetaminophen 325 Mg Tablet) 650 mg PO Q6H PRN PRN Reason: Pain, Mild 1-3,fever,headache Calcium Carbonate (Calcium Carbonate 750 Mg Tab.Chew) 750 mg PO Q4H PRN PRN Reason: Heartburn Dextrose (Dextrose 50 % 25 Gm/50 Ml Syringe) 25 gm IVPUSH Q15M PRN; Protocol PRN Reason: per Hypoglycemia Standing Ord. Furosemide (Furosemide 40 Mg/4 Ml Vial) 40 mg IVPUSH BID@0900,1800 [facility]; Protocol Glucose (Glucose Gel 15 Gm Gel..Gram.) 15 gm PO Q15M PRN; Protocol PRN Reason: per Hypoglycemia Standing Ord. Insulin Human Lispro (Insulin Lispro 100 Unit/Ml 3 Ml Vial) 0 unit SUBCUT QIDAS [facility]; Protocol Magnesium Hydroxide (Milk Of Magnesia 30 Ml Oral.Susp) 30 ml PO DAILY PRN PRN Reason: Constipation Melatonin (Melatonin 3 Mg Tablet) 6 mg PO BEDTIME PRN PRN Reason: Insomnia Sodium Chloride (0.9 % Sodium Chloride Flush 3 Ml Syringe) 3 ml IVFLUSH [facility] Home Medications ?Medication ?Instructions ?Recorded ?Confirmed ?Last Taken ?Type blood-glucose meter #1 ea 05/14/20 01/14/24 Unknown History lancets #100 ea 05/14/20 01/14/24 Unknown History atorvastatin 40 mg tablet 40 mg PO DAILY 12/19/22 04/04/25 03/25/25 History lisinopril 40 mg tablet 40 mg PO DAILY 10/20/24 04/04/25 03/25/25 History apixaban 2.5 mg tablet (Eliquis) 2.5 mg PO BID 12/05/24 04/04/25 03/25/25 History furosemide 40 mg tablet 40 mg PO DAILY 03/23/25 04/04/25 03/25/25 History calcitriol 0.25 mcg capsule 0.25 mcg PO Q48H 03/30/25 04/04/25 Unknown History ferrous sulfate 325 mg (65 mg 325 mg PO BID 03/30/25 04/04/25 Unknown History iron) tablet Physical Exam Vital Signs and Narrative: Vital Signs: Last Vital Signs Temp 97.8 F 04/04/25 07:11 Pulse 70 04/04/25 07:11 Resp 19 04/04/25 07:11 BP 158/72 H 04/04/25 10:03 Pulse Ox 98 04/04/25 08:30 O2 Del Method Nasal Cannula 04/04/25 08:30 O2 Flow Rate 2 04/04/25 08:30 BMI result Body Mass Index 27.4 Const: Other: Elderly male resting in bed, appears mildly short of breath, no accessory muscle use General: alert and awake Orientation/consciousness: patient oriented x3 Resp: Other: DM right base, no rales appreciated Effort & Inspection: no respiratory distress and no use of accessory muscles GI: Inspection: No distended Palpation (GI): Soft to palpation Skin: Other: b/l leg edema; blistering and skin tear RLE Neuro: General: patient oriented x3, moves all extremities and CN's II-XI intact bilaterally Results Labs 04/04/25 07:42 04/04/25 07:42 Labs: Laboratory Results - last 24 hr 04/04/25 04/04/25 04/04/25 07:42 07:48 09:25 MCV 86.2 MCH 26.5 L MCHC 30.7 L RDW 17.8 H Plt Count 171 MPV 9.0 L Immature Gran % (Auto) 0.2 Neut % (Auto) 72.2 Lymph % (Auto) 16.0 L [place] % (Auto) 8.6 Eos % (Auto) 2.8 Baso % (Auto) 0.2 Lymph # (Auto) 0.7 L [place] # (Auto) 0.4 Eos # (Auto) 0.1 Baso # (Auto) 0.0 Abs Immat Gran (auto) 0.01 Absolute Neuts (auto) 3.3 Absolute Nucleated RBC 0.000 Nucleated RBC % (auto) 0.0 VBG pH 7.44 H VBG pCO2 40 VBG pO2 39 VBG HCO3 27 H VBG O2 Saturation 51.0 VBG Base Excess 3.3 Anion Gap 14 Estim Creat Clear Calc 25.1 Estimated GFR 25 Random Glucose 104 Calcium 8.8 Total Bilirubin 0.9 AST 31 ALT 19 Alkaline Phosphatase 158 H B-Natriuretic Peptide 1719 H Total Protein 6.8 Albumin 3.1 L Urine Color Urine Appearance Urine pH Ur Specific [place] Urine Protein Urine Glucose (UA) Urine Ketones Urine Blood Urine Nitrite Ur Leukocyte Esterase Urine RBC Urine WBC Ur Squamous Epith Cells Urine Bacteria Hyaline Casts Influenza Type A (PCR) NEGATIVE Influenza Type B (PCR) NEGATIVE RSV RNA Qual (PCR) NEGATIVE SARS-CoV-2 RNA (RT-PCR) NEGATIVE 04/04/25 10:11 MCV MCH MCHC RDW Plt Count MPV Immature Gran % (Auto) Neut % (Auto) Lymph % (Auto) [place] % (Auto) Eos % (Auto) Baso % (Auto) Lymph # (Auto) [place] # (Auto) Eos # (Auto) Baso # (Auto) Abs Immat Gran (auto) Absolute Neuts (auto) Absolute Nucleated RBC Nucleated RBC % (auto) VBG pH VBG pCO2 VBG pO2 VBG HCO3 VBG O2 Saturation VBG Base Excess Anion Gap Estim Creat Clear Calc Estimated GFR Random Glucose Calcium Total Bilirubin AST ALT Alkaline Phosphatase B-Natriuretic Peptide Total Protein Albumin Urine Color Yellow Urine Appearance Clear Urine pH 6.0 Ur Specific [place] 1.015 Urine Protein 100 (2+) H Urine Glucose (UA) Negative Urine Ketones Negative Urine Blood Negative Urine Nitrite Negative Ur Leukocyte Esterase Trace H Urine RBC 0-2 Urine WBC 0-5 Ur Squamous Epith Cells 0-2 Urine Bacteria None Seen Hyaline Casts 0-2 Influenza Type A (PCR) Influenza Type B (PCR) RSV RNA Qual (PCR) SARS-CoV-2 RNA (RT-PCR) Assessment and Plan (1) Congestive heart failure: Status: Acute (2) CKD stage 3b, GFR 30-44 ml/min: Status: Acute (3) Anasarca: Status: Acute Plan This is a 74-year-old female with a PMH significant for?HFpEF (LVEF 52%), AFib on Eliquis, [id number]-[id number] type 2 diabetes, HTN, HLD, CAD, and hyperparathyroidism who presents to the ED with?swelling in the scrotum and penis. Pt is admitted to the hospital for treatment and further evaluation of anasarca in the setting of acute CHF exacerbation complicated by pt refusing optimal therapies with IV diuresing. Acute Respiratory failure with hypoxia due to acute exacerbation of HFpEF Question of medication compliance at home; has left AMA several times this month Echo 12/05/24 with LVEF 52%, mild pulm HTN received Lasix 80 mg IV in the ED continue Lasix 40mg IV bid Follow I/O, BMP, BNP Monitor on telemetry KELSEY on CKD3 Creatinine 2.57 baseline 1.7-1.9 Likely cardiorenal Treat with IV diuretics as above Follow BMP Anasarca Likely multifactorial due to decompensated CHF, CKD, low albumin Question of cognitive impairment Pt has at times appeared confused, though currently AO x4 Has been seen and evaluated by psychiatry twice on 03/25 and 03/30 and deemed to have capacity to make medical decisions on his own Right pleural effusion chronic diuresis as above DM last Hba1c 03/25 5.5 can follow POCs and cover with SSI if needed HTN Continue amlodipine, carvedilol, lisinopril Persistent AFib Continue carvedilol and Eliquis HLD Continue atorvastatin Iron deficiency anemia Continue iron supplementation GERD Continue Full Code DVT Prophylaxis: Eliquis Pt will require a hospitalization of at least two nights for treatment of?acute hypoxic respiratory failure in the setting of CHF exacerbation. Pt will require hospital level care for administration of supplemental oxygen, IV diuretics, and close monitoring of labs and cardiac function. Quality Stroke Does the patient have a stroke diagnosis?: No VTE Prior VTE?: No VTE Risk Level:: Medical - moderate - high VTE Device Contraindication: Treatment Not Indicated VTE Drug Contraindication: N/A - Med Ordered
[2025-04-04 12:47] LABS: Glucose, Whole Blood 133 mg/dL (60-115)
[2025-04-04 13:28] VITALS: BP 173/83; PULSE 79; RESP 20; TEMP 36.3; O2SAT 98; BMI 31.4
--- NOTE | 2025-04-04 14:53 | PC.NURSE ---
Addendum entered by Sunil Meléndez RN 04/04/25 15:40: informed of pt's elevated bp Original Note: pt stated he wants to leave AMA. pt refused to be educated and explained as to why he should stay. informed. IV and tele removed. pt was refusing fall precautions. spoke with pt. pt does not have a ride home until ~8pm and he said he would think if he wants to stay until then. pt refusing IV and tele to be placed. informed.
[2025-04-04 15:51] VITALS: BP 182/76
[2025-04-04 15:55] LABS: Glucose, Whole Blood 132 mg/dL (60-115)
--- NOTE | 2025-04-04 18:18 | P.DS_ITS ---
<Statement entered by Diana Leal MD - 04/05/25 07:22> Multiple presentations seeking treatment for medical issues, only to leave within a few hours of admission. Patient has been deemed to have capacity to present, request medical care and self-discharge AMA; despite frequency of them. Very challenging to communicate with patient when he has made the decision to se lf-discharge AMA, due to agitation, frustration and anger. The patient has made the decision to leave the hospital against medical advice again, despite extensive counseling regarding the likely detriment to overall health, and possibility of significant morbidity/ mortality. The patient expresses understanding, and chooses to leave AMA regardless. DS: Providers Provider Date of Service: 04/04/25 Date of admission: 04/04/25 10:43 Date of discharge: 04/04/25 Primary care physician: Blanca Anderson MD Consults: 04/04/25 11:02 Consult to Wound Care Routine Reason for consultation: b/l LE wounds, blisters/skin tears Attending physician on discharge: Diana Leal Discharging clinician: Gladys Villavicencio DS: Diagnosis Discharge Diagnosis (1) Congestive heart failure: Status: Acute (2) CKD stage 3b, GFR 30-44 ml/min: Status: Acute (3) Anasarca: Status: Acute DS: Summary Hospital Course Hospital Course: From H&P on the day of admission This is a 74-year-old [place]an-speaking male with multiple medical problems including CHF who presents to the emergency department today with complaints of dyspnea and leg swelling. He was admitted to the hospital for acute CHF exacerbation on March 23 however he left against medical advice. He also left against medical advice from the Department on March 19. Today he was noted to be hypoxic on arrival with oxygen saturation of 89% on room air. Chest x-ray again shows mild vascular congestion with right pleural effusion, BNP is elevated. Patient is agreeable to stay in the hospital. He states that he has shortness of the breath while lying flat and with ambulation. He reports taking his medication as prescribed but is unsure if he takes a water pill at home however previous notes indicate that he has a history of medication noncompliance. Overall patient is somewhat vague and became frustrated in the middle my evaluation that he had to urinate and terminated the remainder of the evaluation. Acute hypoxic respiratory failure in the setting of acute exacerbation of HFpEF/right pleural effusion Pt with SOB, FRANCIS, CXR with pulmonary edema and pleural effusion, edema, elevated BNP, and desatting to 89% on RA. Treated with IV lasix. Diuresing well. Unfortunately on the evening of 03/26, the patient decided to leave ama again. The risks of leaving were discussed and he understands. He has left AMA multiple previous times and therefore he was seen by the psychiatric team on a previous and deemed to have capacity to make medical decisions. Time Attestation Discharge Coordination Time (in mins): 32 Quality: Safe Use of Opioids Does Pt have an Active Cancer Diagnosis on the Problem List?: No Quality: Stroke Does the patient have a stroke diagnosis?: No Physical Exam Vital Signs: Vital Signs: Last Vital Signs Temp 97.4 F 04/04/25 13:28 Pulse 79 04/04/25 13:28 Resp 20 04/04/25 13:28 BP 182/76 H 04/04/25 15:51 Pulse Ox 98 04/04/25 13:28 O2 Del Method Nasal Cannula 04/04/25 13:28 O2 Flow Rate 2 04/04/25 13:28 BMI result Body Mass Index 31.4 Const: Other: physical exam unchanged from admission; pt awake, alert and oriented x3. breathing easy DS: Data Data Completed and Pending Completed studies during hospitalization [Text1]: Procedures Dilation of Cystic Duct with Intraluminal Device, Via Natural or Artificial Opening Endoscopic (11/12/24) Drainage of Peritoneal Cavity with Drainage Device, Percutaneous Approach (11/12/24) Drainage of Peritoneal Cavity, Percutaneous Approach (11/12/24) Drainage of Right Pleural Cavity, Percutaneous Approach (12/04/24) Excision of Duodenum, Via Natural or Artificial Opening Endoscopic, Diagnostic (12/19/22) Excision of Esophagogastric Junction, Via Natural or Artificial Opening Endos copic, Diagnostic (12/19/22) Excision of Stomach, Pylorus, Via Natural or Artificial Opening Endoscopic, Diagnostic (12/04/24) Inspection of Upper Intestinal Tract, Via Natural or Artificial Opening E ndoscopic (11/12/24) Resection of Gallbladder, Percutaneous Endoscopic Approach (10/20/24) Transfusion of Nonautologous Red Blood Cells into Peripheral Vein, Percutaneous Approach (12/04/24) Labs on day of discharge: Laboratory Results - last 24 hr 04/04/25 04/04/25 04/04/25 07:42 07:48 09:25 WBC 4.6 L RBC 3.25 L Hgb 8.6 L Hct 28.0 L MCV 86.2 MCH 26.5 L MCHC 30.7 L RDW 17.8 H Plt Count 171 MPV 9.0 L Immature Gran % (Auto) 0.2 Neut % (Auto) 72.2 Lymph % (Auto) 16.0 L [place] % (Auto) 8.6 Eos % (Auto) 2.8 Baso % (Auto) 0.2 Lymph # (Auto) 0.7 L [place] # (Auto) 0.4 Eos # (Auto) 0.1 Baso # (Auto) 0.0 Abs Immat Gran (auto) 0.01 Absolute Neuts (auto) 3.3 Absolute Nucleated RBC 0.000 Nucleated RBC % (auto) 0.0 VBG pH 7.44 H VBG pCO2 40 VBG pO2 39 VBG HCO3 27 H VBG O2 Saturation 51.0 VBG Base Excess 3.3 Sodium 142 Potassium 4.1 D Chloride 107 Carbon Dioxide 25 Anion Gap 14 BUN 58 H Creatinine 2.57 H Estim Creat Clear Calc 25.1 Estimated GFR 25 POC Glucose Random Glucose 104 Calcium 8.8 Total Bilirubin 0.9 AST 31 ALT 19 Alkaline Phosphatase 158 H B-Natriuretic Peptide 1719 H Total Protein 6.8 Albumin 3.1 L Urine Color Urine Appearance Urine pH Ur Specific [place] Urine Protein Urine Glucose (UA) Urine Ketones Urine Blood Urine Nitrite Ur Leukocyte Esterase Urine RBC Urine WBC Ur Squamous Epith Cells Urine Bacteria Hyaline Casts Influenza Type A (PCR) NEGATIVE Influenza Type B (PCR) NEGATIVE RSV RNA Qual (PCR) NEGATIVE SARS-CoV-2 RNA (RT-PCR) NEGATIVE 04/04/25 04/04/25 04/04/25 10:11 12:43 15:51 WBC RBC Hgb Hct MCV MCH MCHC RDW Plt Count MPV Immature Gran % (Auto) Neut % (Auto) Lymph % (Auto) [place] % (Auto) Eos % (Auto) Baso % (Auto) Lymph # (Auto) [place] # (Auto) Eos # (Auto) Baso # (Auto) Abs Immat Gran (auto) Absolute Neuts (auto) Absolute Nucleated RBC Nucleated RBC % (auto) VBG pH VBG pCO2 VBG pO2 VBG HCO3 VBG O2 Saturation VBG Base Excess Sodium Potassium Chloride Carbon Dioxide Anion Gap BUN Creatinine Estim Creat Clear Calc Estimated GFR POC Glucose 133 H 132 H Random Glucose Calcium Total Bilirubin AST ALT Alkaline Phosphatase B-Natriuretic Peptide Total Protein Albumin Urine Color Yellow Urine Appearance Clear Urine pH 6.0 Ur Specific [place] 1.015 Urine Protein 100 (2+) H Urine Glucose (UA) Negative Urine Ketones Negative Urine Blood Negative Urine Nitrite Negative Ur Leukocyte Esterase Trace H Urine RBC 0-2 Urine WBC 0-5 Ur Squamous Epith Cells 0-2 Urine Bacteria None Seen Hyaline Casts 0-2 Influenza Type A (PCR) Influenza Type B (PCR) RSV RNA Qual (PCR) SARS-CoV-2 RNA (RT-PCR) Discharge Plan Discharge Patient Disposition: Left Against Medical Advice Discharge Diagnosis: AMA Referrals: Blanca Crowley MD [Primary Care Provider, Internal Medicine] Discharge Medications: No Action (DME) blood sugar diagnostic Strip See Rx Instructions .ROUTE BID Qty: 50 11RF Rx Instructions: Use 1 test strip once a day atorvastatin 40 mg tablet 40 mg PO DAILY Eliquis 2.5 mg tablet 2.5 mg PO BID omeprazole 40 mg Capsule,Delayed Release(Dr/Ec) 40 mg PO BID@0630,1630 Qty: 60 0RF furosemide 40 mg tablet 40 mg PO DAILY ferrous sulfate 325 mg (65 mg iron) tablet 325 mg PO BID calcitriol 0.25 mcg capsule 0.25 mcg PO Q48H lisinopril 40 mg tablet 40 mg PO DAILY amlodipine 5 mg Tablet 5 mg PO DAILY Qty: 60 0RF Protocol: Hold for SBP< HOLD for SBP < : 90 carvedilol 6.25 mg Tablet 6.25 mg PO BID Qty: 60 0RF Protocol: Hold for SBP/HR < HOLD for SBP < : 90 HOLD for HR < : 60 (DME) blood-glucose meter Misc See Rx Instructions PO BID Qty: 1 Rx Instructions: As directed (DME) lancets Misc See Rx Instructions .ROUTE BID Qty: 100 Rx Instructions: As directed Discharge Orders: Discharge Order (Routine); Ordered 04/05/25 Ordered By: Gladys Villavicencio Print Language: [place]an Care Plan Goals: left AMA Health Concerns: CHF anasarca Plan of Treatment: Call to schedule a follow up appointment with your PCP take all medications as prescribed Assessment: left AMA Discharge Date/Time: 04/04/25 17:24
== END 2025-04-04 17:24 | disposition left against medical advice (07) | DRG 291 ==
LOC: HO.ED 09:41 → HO.EDOVER 10:48 → HO.IMC 12:01
PROVIDERS: Nurse Practitioner Family; Admitting Provider Physician Assistant Medical; Emergency Provider Emergency Medicine; PCP Student in an Organized Health Care Education/Training Program; Visit Provider Physician Assistant Medical
DX: I13.0 Hypertensive heart and chronic kidney disease with heart failure and stage 1 through stage 4 chronic kidney disease, or unspecified chronic kidney disease (principal); I50.33 Acute on chronic diastolic (congestive) heart failure; J96.01 Acute respiratory failure with hypoxia; N17.9 Acute kidney failure, unspecified; I48.19 Other persistent atrial fibrillation; K21.9 Gastro-esophageal reflux disease without esophagitis; D50.9 Iron deficiency anemia, unspecified; E11.22 Type 2 diabetes mellitus with diabetic chronic kidney disease; N18.30 Chronic kidney disease, stage 3 unspecified; Z20.822 Contact with and (suspected) exposure to COVID-19; Z79.01 Long term (current) use of anticoagulants; Z79.899 Other long term (current) drug therapy
CPT/HCPCS: 36415; 71046; 80053; 81001; 82803; 82947; 83880; 85025; 87637; 93005; 99222; 99285; J1938

== ENCOUNTER → 2025-04-04 07:15 | Outpatient (BNV) | payer OTHER, SELFPAY | PROVIDERS: Emergency Provider Emergency Medicine; PCP Student in an Organized Health Care Education/Training Program; Visit Provider Internal Medicine Cardiovascular Disease | DX: I48.91 Unspecified atrial fibrillation (principal); Z95.0 Presence of cardiac pacemaker | CPT/HCPCS: 93010 ==

== ENCOUNTER → 2025-04-04 09:06 | Outpatient (BNV) | payer OTHER, SELFPAY | PROVIDERS: Emergency Provider Emergency Medicine; PCP Student in an Organized Health Care Education/Training Program; Visit Provider Radiology Diagnostic Radiology | DX: J90 Pleural effusion, not elsewhere classified (principal); I51.7 Cardiomegaly | CPT/HCPCS: 71046 ==

== ENCOUNTER → 2025-04-04 10:43 | Outpatient (BNV) | payer OTHER, SELFPAY | PROVIDERS: Admitting Provider Physician Assistant Medical; Emergency Provider Emergency Medicine; PCP Student in an Organized Health Care Education/Training Program; Visit Provider Physician Assistant Medical | DX: I50.9 Heart failure, unspecified (principal); N18.32 Chronic kidney disease, stage 3b; R60.1 Generalized edema | CPT/HCPCS: 99235; 99499 ==

== ENCOUNTER 2025-04-06 15:53 | Inpatient (IN) | payer OTHER, SELFPAY ==
--- NOTE | ~2025-04-06 | XR_ITS ---
EXAMINATION: XR CHEST CLINICAL INFORMATION: SOB COMPARISON: 04/04/2025. TECHNIQUE: Frontal view of the chest was obtained. FINDINGS: There is stable mild to moderate cardiomegaly. Mediastinal and hilar contours appear stable and normal. Mild aortic mural calcification. There is a small to moderate-sized layering right effusion without significant change. No left effusion. No pneumothorax. No focal osseous or soft tissue abnormality. There are degenerative changes in both shoulder joints and throughout the spine. XR/XR chest 1V IMPRESSION: 1. Stable cardiac enlargement. 2. Similar small to moderate size right layering effusion with underlying parenchymal consolidation. Electronically signed by: Jack Shah MD 04/06/2025 04:37 PM EDT
--- OUTSIDE RECORDS SUMMARY | 2025-04-06 15:20 | XMS_ITS | Encounter Summary ---
Author Organization [employer] Address [address] [place] [address] Care Team Providers Care Insurance Account Representative Name Role Phone Cynthia Marshall NP Primary Care Provider [phone] Encounter Details Date Type Department Care Team ([facility] st Contact Info) Description 04/06/2025 3:20 PM EDT Office Visit [facility] [address] [place] [address] Blanca Mills MD [address] [place], [place] [id number] Acute on chronic congestive heart failure, unspecified heart failure type (CMS/HCC) (Primary Dx) Social History Tobacco Use Types [...] Sign Reading Time Taken Comments Blood Pressure 171/79 04/06/2025 3:10 PM EDT Pulse 73 04/06/2025 3:10 PM EDT Temperature - - Respiratory Rate 26 04/06/2025 3:10 PM EDT Oxygen Saturation 99% 04/06/2025 3:11 PM EDT 6 L Inhaled Oxygen Concentration - - Weight - - Height - - Body Mass Index - - documented in this encounter Progress Notes * Blanca Lujan MD - 04/06/2025 3:20 PM EDT SUBJECTIVE: Ethan Cristina is a 74 y.o. year old male who presents for acute visit . Acute Concerns: Patient known to have CHF, hypertension, A-fib, diabetes, CKD is here today presenting for acute shortness of breath, initial saturation is 86% and blood pressure is 171/79 he was immediately put on 6 L of nasal cannula and oxygen went up to 99%, he has been coming here multiple times this month for same issue, he is referred to the emergency room for acute on chronic CHF, once he gets to the emergency room he gets some medication and signes AMA Social History Social History Narrative Lives alone Problem List[1] Acute low back pain Anxiety Essential hypertension [...] to stage 3a chronic kidney disease (CMS/HCC) CKD stage 4 secondary to hypertension (CMS/HCC) CHF (congestive heart failure), NYHA class II, acute on chronic, combined (CMS/HCC) Elevated uric acid in blood Hyperuricemia Primary osteoarthritis of both knees Prepatellar bursitis of left knee Osteoarthritis of left knee Other hydronephrosis Colitis Hypertension Dementia with anxiety (CMS/HCC) Open wound of skin Housing situation unstable Hyperparathyroidism (CMS/HCC) CVA, old, cognitive deficits Rectal bleeding Gastrointestinal hemorrhage associated with chronic gastritis KELSEY (acute kidney injury) (CMS/HCC) Hypokalemia Hypomagnesemia Dyspnea on exertion Lower extremity edema Edema Family History[2] Review of Systems Constitutional: Positive for fatigue. HENT: Negative. Respiratory: Positive for chest tightness and shortness of breath. Negative for apnea, cough, choking, wheezing and stridor. Cardiovascular: Positive for leg swelling. Negative for chest pain and palpitations. OBJECTIVE: Vitals: 04/06/25 1510 04/06/25 1511 BP: (!) 171/79 BP Location: Left arm Patient Position: Sitting BP Cuff Size: Adult Pulse: 73 Resp: 26 SpO2: (!) 86% 99% Physical Exam Cardiovascular: Rate and Rhythm: Normal rate. Rhythm irregular. Pulmonary: Effort: Tachypnea and respiratory distress present. Breath sounds: Examination of the right-lower field reveals rales. Rales present. Musculoskeletal: Right lower le+ Edema present. Left lower le+ Edema present. Neurological: Mental Status: He is alert. Follow Up: No follow-ups on file. Medications Ordered Prior to Encounter[3] Problem List Items Addressed This Visit CHF exacerbation (CMS/HCC) - Primary Clinical picture is not consistent with patient being taking his medications as prescribed, there is questionable adherence to his medication regiment, he may benefit from increase VNA services, walking test for O2 saturation and Mini- Mental test I referred this patient to the emergency room EMS was called [1] Patient Active Problem List Diagnosis Acute low back pain Anxiety Essential hypertension Hyperlipidemia Stage 3 chronic kidney disease due to type 2 diabetes mellitus ([facility]/HCC) Iron deficiency anemia Metabolic bone disease Mild cognitive disorder Paroxysmal atrial fibrillation ([facility]/HCC) Type 2 diabetes mellitus ([facility]/HCC) Vitamin D deficiency Renal osteodystrophy Chronic systolic heart failure ([facility]/HCC) Skin lesion Stage 3b chronic kidney disease ([facility]/HCC) Anemia due to stage 3a chronic kidney disease ([facility]) CKD stage 4 secondary to hypertension ([facility]) CHF (congestive heart failure), NYHA class II, acute on chronic, combined ([facility]) Elevated uric acid in blood Hyperuricemia Primary osteoarthritis of both knees Prepatellar bursitis of left knee Osteoarthritis of left knee Other hydronephrosis Colitis Hypertension Dementia with anxiety ([facility]/HCC) Open wound of skin Housing situation unstable Hyperparathyroidism ([facility]) CVA, old, cognitive deficits Rectal bleeding Gastrointestinal hemorrhage associated with chronic gastritis KELSEY (acute kidney injury) ([facility]) Hypokalemia Hypomagnesemia Dyspnea on exertion Lower extremity edema Edema CHF exacerbation ([facility]) [2] No family history on file. [3] Current Outpatient Medications on File Prior to Visit Medication Sig Dispense Refill amLODIPine (Norvasc) 5 MG tablet Take 1 tablet (5 mg) by mouth Once per day. 90 tablet 0 apixaban (Eliquis) 2.5 MG tablet Take 1 tablet (2.5 mg) by mouth 2 times daily. 180 tablet 1 atorvastatin (Lipitor) 40 MG tablet Take 1 tablet (40 mg) by mouth Once per day. 90 tablet 2 Blood Glucose Monitoring Suppl ([employer] [place] Lite) w/Device kit Use to test blood sugar bid dxdm 1 kit 0 Blood Pressure Monitoring (Omron 3 Series BP Monitor) device USE TO CHECK BLOOD PRESSURE DAILY 1 each 0 calcitriol (Rocaltrol) 0.25 MCG capsule TAKE 1 CAPSULE BY MOUTH EVERY OTHER DAY 45 capsule 1 carvedilol (Coreg) 6.25 MG tablet Take 1 tablet (6.25 mg) by mouth 2 times daily. 180 tablet 0 Diclofenac Sodium 1 % gel Apply thin layer by topical route (quantity as directed on package insert) to affected area of pain 3 times daily as needed. 50 g 3 docusate sodium (Colace) 100 MG capsule Take 1 capsule (100 mg) by mouth if needed each day for constipation. TAKE 1 CAPSULE BY MOUTH EVERY DAY AT BEDTIME 90 capsule 0 FeroSul 325 (65 Fe) MG tablet TAKE 1 TABLET BY MOUTH EVERY OTHER DAY WITH ORANGE JUICE 90 tablet 3 fluticasone (Flonase) 50 MCG/ACT nasal spray INSTILL 1 SPRAY IN EACH NOSTRIL ONCE DAILY IN THE MORNING 16 g 0 furosemide (Lasix) 40 MG tablet Take 1 tablet (40 mg) by mouth Once per day. 90 tablet 0 GaviLAX 17 GM/SCOOP powder Take 17 g by mouth Once per day. glucose blood ([employer] Ultra) test strip test blood sugar as needed, in the morning before breakfast 100 each 11 Lancets 33G misc 100 each 2 times daily. 60 each 11 lisinopril 40 MG tablet TAKE 1 TABLET BY MOUTH EVERY MORNING 90 tablet 1 omeprazole (PriLOSEC) [address] capsule Take 1 capsule (40 mg) by mouth in the morning and 1 capsule(40 mg) in the evening. Do not crush or chew. 60 capsule 0 No current facility-administered medications on file prior to visit. documented in this encounter Miscellaneous Notes * Assessment & Plan Note - Blanca Lujan MD - 04/06/2025 3:46 PM EDT Associated Problem(s): CHF exacerbation (CMS/HCC) Clinical picture is not consistent with patient being taking his medications as prescribed, there is questionable adherence to his medication regiment, he may benefit from increase VNA services, walking test for O2 saturation and Mini- Mental test I referred this patient to the emergency room EMS was called documented in this encounter Plan of Treatment Not on file documented as of this encounter Visit Diagnoses Diagnosis Acute on chronic congestive heart failure, unspecified heart failure type (CMS/HCC)- Primary documented in this encounter Additional Health Concerns Assessment Noted Time PHQ-9 Depression Total Score: 3 01/22/20 25 10:47 AM EDT documented as of this encounter Care Teams Insurance Account Representative Relationship Specialty Start Date End Date Cynthia Marshall NP [address] [place] [address] PCP - General Family Medicine 09/10/23 [facility] 01/01/25 documented as of this encounter
[2025-04-06 15:54] VITALS: BP 127/53; BP 145/90; PULSE 60; PULSE 78; RESP 22; TEMP 36.6; O2SAT 86; O2SAT 94; BMI 31.9
--- NOTE | 2025-04-06 16:04 | ECG_ITS ---
Test Reason : SYNCOPE Blood Pressure : */* mmHG Vent. Rate : 73 BPM Atrial Rate : 62 BPM P-R Int : * ms QRS Dur : 80 ms QT Int : 408 ms P-R-T Axes : 41 163 45 degrees QTcB Int : 449 ms Artifact in tracing Atrial fibrillation Low voltage QRS Lateral infarct , age undetermined Abnormal ECG When compared with ECG of 04-Apr-2025 07:28, QRS axis Shifted right T wave inversion no longer evident in Lateral leads Referred By: Ernestine Vazquez Electronically Signed By: AHMET KAPADIA
--- NOTE | 2025-04-06 16:16 | ED_ITS ---
HPI - SOB/Dyspnea General Chief Complaint: Dyspnea Stated Complaint: SOB EDEMA Time Seen by Provider: 04/06/25 15:54 Source: patient and EMS Mode of arrival: EMS Limitations: no limitations History of Present Illness ED Provider: Ernestine Vazquez APRN HPI Narrative: 74-year-old male with a history of congestive heart failure, hypertension, chronic kidney disease, cardiomyopathy, chronic atrial fibrillation (on apixaban) who presents the ER with concerns of bilateral lower extremity swelling and genital swelling and shortness of breath. Of note I admitted this patient for congestive heart failure on April 04 and he remained in the emergency room until he was admitted and then he left against medical advice that evening. He has had a psychiatric evaluation in March which determined that he does have capacity to make his own medical decisions. He has had multiple admissions for congestive heart failure and leaves against medical advice quite frequently. He reports he has had some weight gain since leaving on the but can not recall how many lb. He reports he has been taking his medications as prescribed. He denies any chest pain, cough, fever, pain in his legs. Related Data Home Medications ?Medication ?Instructions ?Recorded ?Confirmed blood-glucose meter #1 ea 05/14/20 01/14/24 lancets #100 ea 05/14/20 01/14/24 atorvastatin 40 mg tablet 40 mg PO DAILY 12/19/2203/14 lisinopril 40 mg tablet 40 mg PO DAILY 10/20/2403/14 apixaban 2.5 mg tablet (Eliquis) 2.5 mg PO BID 5 04/04/25 furosemide 40 mg tablet 40 mg PO DAILY 03/23/2503/14 calcitriol 0.25 mcg capsule 0.25 mcg PO Q48H 03/30/25 04/04/25 ferrous sulfate 325 mg (65 mg 325 mg PO BID 03/30/25 0 04/04/25 iron) tablet Previous Rx's ?Medication ?Instructions ?Recorded blood sugar diagnostic #50 ea 01/24/21 omeprazole 40 mg capsule,delayed 40 mg PO BID@0630,163 0 #60 caps 12/16/24 release amlodipine 5 mg tablet 5 mg PO DAILY #60 tabs 01/29 carvedilol 6.25 mg tablet 6.25 mg PO BID #60 tabs 01/11 05/07 Allergies Allergy/AdvReac Type Severity Reaction Status Date / Time No Known Allergies (No Known Allergy Verified 04/06/25 15:57 Allergies*) Review of Systems 2 Review of Systems: Yes all other systems are reviewed and are negative Constitutional: Constitutional: Reports no additional constitutional complaints, Denies body ache(s), Denies chills, Denies fever(s), Denies headache(s) and Denies weakness Eyes: Eyes: Reports no additional eye complaints and Denies change in vision ENT: Reports system reviewed and no additional complaints, except as documented, Denies dizziness, Denies headache(s), Denies nasal congestion, Denies nasal discharge and Denies neck pain Cardiovascular: Cardiovascular: Reports no additional cardiovascular complaints, Denies chest pain, Reports leg edema and Reports dyspnea Respiratory: Respiratory: Reports no additional respiratory complaints, Denies cough and Reports dyspnea Gastrointestinal: Gastrointestinal: Reports no additional gastrointestinal complaints, Denies abdominal pain, Denies diarrhea, Denies nausea and Denies vomiting Genitourinary: Genitourinary: Denies urinary incontinence Musculoskeletal: Musculoskeletal: Reports no additional musculoskeletal complaints, Denies back pain, Denies arthralgias, Denies joint swelling, Denies neck pain, Denies numbness and Denies tingling Integumentary/Breasts: Skin/Breast: Reports system reviewed and no additional complaints, except as docu and Denies rash Neurologic: Reports system reviewed and no additional complaints, except as documented, Denies Abnormal speech present, Denies dizziness, Denies headache(s), Denies numbness, Denies tingling and Denies weakness PMF Past Medical History Attestation statement: The following information was validated with the patient. Source: old records reviewed and nursing notes reviewed Medical History Anemia in chronic kidney disease (CKD) Hypertension Uncontrolled hypertension Congestive heart failure CKD (chronic kidney disease) CHF (congestive heart failure) CKD (chronic kidney disease) stage 4, GFR 15-29 ml/min Obesity (BMI 30.0-34.9) Cardiomyopathy Stroke Chronic atrial fibrillation CKD (chronic kidney disease) Former smoker Depression Diabetes High cholesterol Surgical History History of aneurysm History of shoulder surgery Family History Family History Father No problems noted. Mother Diabetes Hypertension Cancer Son No problems noted. Son No problems noted. Son No problems noted. Daughter No problems noted. Daughter No problems noted. Social History Social History Household Members: None Household Members Other:: Housing: Apartment Are you a primary summer child caregiver to a significant other at home: No Do you presently have visiting nurse or other home services: Yes Unable to assess alcohol history related to: Unknown Alcohol intake: never Patient Tobacco Use Status: Former Tobacco user Substance Use Type: Marijuana Advance Directives Date on File: 12/17/24 Do you have a plan to hurt others: No Plan service: No Current occupational status: disabled Physical Exam 2 Vital Signs: Vital Signs: Last Vital Signs Temp 97.5 F 04/06/25 16:57 Pulse 69 04/06/25 16:57 Resp 17 04/06/25 16:57 BP 140/63 H 04/06/25 16:57 Pulse Ox 95 04/06/25 16:57 O2 Del Method Nasal Cannula 04/06/25 16:57 O2 Flow Rate 2 04/06/25 16:57 Oxygen Flow Rate 2 04/06/25 15:54 BMI result Body Mass Index 31.9 Const: General: cooperative, healthy appearing, comfortable and no acute distress Orientation/consciousness: patient oriented x3 Limitations: no limitations HEENT: Head: Yes normal to inspection Ears: hearing grossly normal bilaterally General nose exam: Normal external nose present Face and sinus: Yes normal facial exam Mouth: Normal oral and palatal mucosa present Throat: Yes posterior oropharynx normal Eyes: General: appearance normal, both eyes and all related structures P upils: Equal, round and reactive pupils present Neck: Neck: Yes normal visual inspection Chest: Chest palpation & inspection: normal inspection of the chest Resp: Other: +tachypnea, belly breathing Auscultation: crackles Cardio: Rate: regular rate Rhythm: regular rhythm Peripheral pulses: P eripheral pulses 2+ throughout GI: Inspection: Yes normal to inspection Palpation (GI): Soft to palpation and nontender Auscultation: normal bowel sounds Back/Spine/Pelvis: Thoracic/Lumbar Spine: thoracic and lumbar spine normal to inspection Skin: General skin exam: no rashes or lesions noted Neuro: General: patient oriented x3, no focal motor deficits and normal sensation to monofilament Cranial nerves: Yes Equal, round and reactive pupils present Cognition (Neuro): normal cognition Speech: No Abnormal speech present Gait exam (Neuro): Normal gait present Motor exam (neuro): 5/5 motor strength present throughout Extrem: General: Yes normal to inspection, Yes no calf tenderness and Yes pedal edema Medications Administered Discontinued Medications Generic Name Dose Route Start Last Admin Trade Name Damian PRN Reason Stop Dose Admin Furosemide 80 mg 04/06/25 16:23 04/06/25 16:44 Furosemide 100 Mg/10 Ml Vial IVPUSH 04/06/25 16:24 80 mg ONCE ONE Administration Protocol Medical Decision Making Medical Decision Making [facility] Narrative: 74-year-old male with a history of congestive heart failure, hypertension, chronic kidney disease, cardiomyopathy, chronic atrial fibrillation (on apixaban) who presents the ER with concerns of bilateral lower extremity swelling and genital swelling and shortness of breath. Of note I admitted this patient for congestive heart failure on April 04 and he remained in the emergency room until he was admitted and then he left against medical advice that evening. He has had a psychiatric evaluation in March which determined that he does have capacity to make his own medical decisions. He has had multiple admissions for congestive heart failure and leaves against medical advice quite frequently. He reports he has had some weight gain since leaving on the but can not recall how many lb. He reports he has been taking his medications as prescribed. He denies any chest pain, cough, fever, pain in his legs. Patient is requiring supplemental oxygen. He was 88% for EMS on RA he has bilateral lower extremity pitting edema which extends to the groin. he has fine crackles. he appears to be in congestive heart failure recommended admission. Patient agreed. will obtain labs, EKG, chest x-ray, viral testing. Patient will receive 80 mg of IV Lasix Differential Diagnosis Differential Diagnoses: The differential diagnosis associated with the presentation includes chf Admission/Observation Consideration of admission/observation: Escalation of care including admission/observation considered Consult Healthcare Provider Management of the patient was discussed with: Hospitalist [id number] (Amelia Mcgraw) contacted for admission Lab Data [facility] Lab Attestation statement: I reviewed the patient's lab results. 04/06/25 16:30 04/06/25 16:30 Labs: Lab Results 04/06/25 Range/Units 16:30 WBC 5.2 (4.8-10.8) X10*3/uL RBC 3.12 L (4.60-5.80) X10*6/uL Hgb 8.0 L (14.0-18.0) g/dl Hct 27.2 L (42.0-52.0) % MCV 87.2 (80.0-98.0) fL MCH 25.6 L (27.0-33.0) pg MCHC 29.4 L (31.0-36.0) g/dl RDW 17.4 H (11.0-16.0) % Plt Count 193 (160-400) X10*3/uL MPV 9.4 (9.4-12.4) fL Immature Gran % (Auto) 0.4 (0.0-0.4) % Neut % (Auto) 74.3 H (45-73) % Lymph % (Auto) 14.8 L (20-40) % [place] % (Auto) 8.4 (2-11) % Eos % (Auto) 1.9 (0-4) % Baso % (Auto) 0.2 (0-2) % Lymph # (Auto) 0.8 L (1.2-4.9) X10*3/uL [place] # (Auto) 0.4 (0.1-1.2) X10*3/uL Eos # (Auto) 0.1 (0.0-0.4) X10*3/uL Baso # (Auto) 0.0 (0.0-0.2) X10*3/uL Abs Immat Gran (auto) 0.02 (0.00-0.03) X10*3/uL Absolute Neuts (auto) 3.9 (2.0-8.3) x10*3/uL Absolute Nucleated RBC 0.000 (0.0-0.012) X10*3/uL Nucleated RBC % (auto) 0.0 (0.0-0.2) /100WBC Sodium 138 (135-145) mmol/L Potassium 4.5 (3.3-5.1) mmol/L Chloride 103 (96-108) mmol/L Carbon Dioxide 26 (22-29) mmol/L Anion Gap 14 (12-20) BUN 61 H (9-16) mg/dL Creatinine 3.10 H (0.5-1.4) mg/dL Estim Creat Clear Calc 24.1 Estimated GFR 20 Random Glucose 118 H (60-115) mg/dL Calcium 8.5 (8.4-10.2) mg/dL Total Bilirubin 0.8 (0.0-1.0) mg/dL Direct Bilirubin 0.4 (0.0-0.5) mg/dL AST 30 (5-37) U/L ALT 17 (0-40) U/L Alkaline Phosphatase 154 H (39-117) U/L Troponin I High Sens 28.7 (<3.5-35.0) ng/L B-Natriuretic Peptide 1481 H (<100) pg/mL Total Protein 6.8 (6.5-8.0) g/dL Albumin 3.2 L (3.5-5.0) g/dL COVID-19 ([facility]) Negative (Negative) COVID-19 Clin Com See Note Independent Interpretation I performed an independent interpretation of an: EKG and Plain X-Ray Interpretation: I independentely reviewed the EKG which shows afib with rate 73 I independentely reviewed the x-ray and agree with the rad report Radiology Impression Discussion of test interpretation with radiology: I have reviewed the radiologist's reading. Radiologist Impression: [address] [address] XRay Report Signed Patient: Ethan Cristina MR#: [id number] : 1950 Acct:[id number] Age/Sex: 74 / M ADM Date: 04/06/25 Loc: .ED Attending Dr: Ordering Physician: Ernestine Vazquez NP Date of Service: 04/06/25 Procedure(s): XR chest 1V Accession Number(s): [id number] cc: Ernestine Vazquez NP~ EXAMINATION: XR CHEST CLINICAL INFORMATION: SOB COMPARISON: 04/04/2025. TECHNIQUE: Frontal view of the chest was obtained. FINDINGS: There is stable mild to moderate cardiomegaly. Mediastinal and hilar contours appear stable and normal. Mild aortic mural calcification. There is a small to moderate-sized layering right effusion without significant change. No left effusion. No pneumothorax. No focal osseous or soft tissue abnormality. There are degenerative changes in both shoulder joints and throughout the spine. XR/XR chest 1V IMPRESSION: 1. Stable cardiac enlargement. 2. Similar small to moderate size right layering effusion with underlying parenchymal consolidation. Critical Care Time Critical Care Time Critical Care Time: Yes Total Critical Care Time: 60 Attestation: sherice includes: direct patient care, patient reassessment, coordination of patient care, interpretation of data, review of patient's medical records, medical consultation and documentation of patient care. Discharge Plan Discharge Clinical Impression: Acute on chronic kidney failure, CHF (congestive heart failure) Patient Disposition: Admitted As Inpatient Print Language: Vincentian
[2025-04-06 16:43] LABS: MANUAL DIFF FLAG NO
[2025-04-06 16:44] VITALS: BP 128/88
[2025-04-06] MEDS: Furosemide 100 MG/10 ML VIAL 80 MG IVPUSH (16:44)
[2025-04-06 16:47] LABS: Hematocrit 27.2 % (42.0-52.0); Hemoglobin 8.0 g/dl (14.0-18.0); Imm Gran Abs Auto 0.02 X10*3/uL (0.00-0.03); Imm Gran Pct Auto 0.4 % (0.0-0.4); Lymphocytes Absolute Auto 0.8 X10*3/uL (1.2-4.9); Mean Corpuscular HGB Conc 29.4 g/dl (31.0-36.0); Mean Corpuscular Hemoglobin 25.6 pg (27.0-33.0); Mean Corpuscular Volume 87.2 fL (80.0-98.0); NRBC Abs Auto 0.000 X10*3/uL (0.0-0.012); NRBC Pct Auto 0.0 /100WBC (0.0-0.2); Platelet Count 193 X10*3/uL (160-400); Red Blood Count 3.12 X10*6/uL (4.60-5.80); White Blood Count 5.2 X10*3/uL (4.8-10.8)
[2025-04-06 16:57] VITALS: BP 140/63; PULSE 69; RESP 17; TEMP 36.4; O2SAT 95
[2025-04-06 17:00] LABS: COVID-19 Test Negative (Negative); IDNOW Serial# 55D5AD1C
[2025-04-06 17:02] LABS: Alanine Aminotransferase 17 U/L (0-40); Albumin Level 3.2 g/dL (3.5-5.0); Alkaline Phosphatase 154 U/L (39-117); Anion Gap 14 (12-20); Aspartate Amino Transferase 30 U/L (5-37); Blood Urea Nitrogen 61 mg/dL (9-16); Calcium 8.5 mg/dL (8.4-10.2); Carbon Dioxide 26 mmol/L (22-29); Chloride 103 mmol/L (96-108); Creatinine Clr Calc Pharmacy 24.1; Estimated Glomerular Filt Rate 20; Potassium 4.5 mmol/L (3.3-5.1); Sodium 138 mmol/L (135-145); Total Protein 6.8 g/dL (6.5-8.0)
[2025-04-06 17:05] LABS: B Type Natriuretic Peptide 1481 pg/mL (<100)
[2025-04-06 17:08] LABS: Troponin-I High Sensitivity 28.7 ng/L (<3.5-35.0)
--- NOTE | 2025-04-06 17:43 | P.HPHOSP_ITS ---
History of Present Illness Date of Service: 04/06/25 Chief Complaint: Shortness of breath 74-year-old man with a history of congestive heart failure presented to the ER with complaints of continued bilateral lower extremity swelling extending all the way to to the genital region with shortness of breath. Patient has been admitted multiple times and leaves against medical advice. He was discharged on April 04 of this year. He has had multiple psychiatric evaluations which determined that he does have capacity to make his own medical decisions. He does appear to be fluid overloaded with lower extremity edema, BNP 1481, creatinine elevated at 3.10, stable blood pressure. Patient was treated with IV Lasix in the ER. Plan will be to admit patient for further management and treatment of acute on chronic congestive heart failure. Review of Systems 2 Review of Systems: Denies any recent fever chills or decrease in appetite respiratory see HPI cardiovascular denied chest pain gastrointestinal denies any dysphagia abdominal pain nausea vomiting or diarrhea genitourinary denies any dysuria frequency or hematuria musculoskeletal denies any joint pain or swelling neuropsych denies any weakness or seizures all other systems reviewed are negative [facility] Medical History Anemia in chronic kidney disease (CKD) Hypertension Uncontrolled hypertension Congestive heart failure CKD (chronic kidney disease) CHF (congestive heart failure) CKD (chronic kidney disease) stage 4, GFR 15-29 ml/min Obesity (BMI 30.0-34.9) Cardiomyopathy Stroke Chronic atrial fibrillation CKD (chronic kidney disease) Former smoker Depression Diabetes High cholesterol Family History Father No problems noted. Mother Diabetes Hypertension Cancer Son No problems noted. Son No problems noted. Son No problems noted. Daughter No problems noted. Daughter No problems noted. Surgical History History of aneurysm History of shoulder surgery Social History Household Members: None Household Members Other:: Housing: Apartment Are you a primary career services assistant to a significant other at home: No Do you presently have visiting nurse or other home services: Yes Unable to assess alcohol history related to: Unknown Alcohol intake: never Patient Tobacco Use Status: Former Tobacco user Smoked in Last 30 Days: No Use of substances other than those prescribed or required for medical reasons: No Substance Use Type: Marijuana Advance Directives: Yes Advance Directives on File: Yes Advance Directives Date on File: 12/17/24 Do you have a plan to hurt others: No Plan Nutrition Risks: No Nutritional Risk service: No Current occupational status: disabled Meds Allergies Allergy/AdvReac Type Severity Reaction Status Date / Time No Known Allergies (No Known Allergy Verified 04/06/25 15:57 Allergies*) Active Medications: Current Medications Acetaminophen (Acetaminophen 325 Mg Tablet) 650 mg PO Q6H PRN PRN Reason: Pain, Mild 1-3,fever,headache Calcium Carbonate (Calcium Carbonate 750 Mg Tab.Chew) 750 mg PO Q4H PRN PRN Reason: Heartburn Furosemide (Furosemide 100 Mg/10 Ml Vial) 60 mg IVPUSH BID@0900,1800 [facility]; Protocol Magnesium Hydroxide (Milk Of Magnesia 30 Ml Oral.Susp) 30 ml PO DAILY PRN PRN Reason: Constipation Melatonin (Melatonin 3 Mg Tablet) 6 mg PO BEDTIME PRN PRN Reason: Insomnia Ondansetron HCl (Ondansetron Hcl 4 Mg/2 Ml Vial) 4 mg IVPUSH Q8H PRN PRN Reason: Nausea and Vomiting Sodium Chloride (0.9 % Sodium Chloride Flush 3 Ml Syringe) 3 ml IVFLUSH [facility] Home Medications ?Medication ?Instructions ?Recorded ?Confirmed ?Last Taken ?Type blood-glucose meter #1 ea 05/14/20 01/14/24 Unkn own History lancets #100 ea 05/14/20 01/14/24 Un known History atorvastatin 40 mg tablet 40 mg PO DAILY 12/19/2203/1404/06/25 History lisinopril 40 mg tablet 40 mg PO DAILY 10/20/2403/1404/06/25 History apixaban 2.5 mg tablet (Eliquis) 2.5 mg PO BID 04/06/25 04/06/25 History furosemide 40 mg tablet 40 mg PO DAILY 03/23/2503/1404/06/25 History calcitriol 0.25 mcg capsule 0.25 mcg PO Q48H 03/30/25 04/06/25 Unknown History ferrous sulfate 325 mg (65 mg 325 mg PO BID 03/30/25 0 04/06/25 04/06/25 History iron) tablet Physical Exam 2 Vital Signs and Narrative: Vital Signs: Last Vital Signs Temp 97.5 F 04/06/25 16:57 Pulse 69 04/06/25 16:57 Resp 17 04/06/25 16:57 BP 140/63 H 04/06/25 16:57 Pulse Ox 95 04/06/25 16:57 O2 Del Method Nasal Cannula 04/06/25 16:57 O2 Flow Rate 2 04/06/25 16:57 Oxygen Flow Rate 2 04/06/25 15:54 BMI result Body Mass Index 31.9 Appearing in no acute distress head is normocephalic atraumatic eyes pupils are PERRLA sclera is anicteric mouth throat mucous membranes are intact and moist neck is supple no lymphadenopathy, no JVD noted lung sounds rales heart regular rate rhythm, clear S1, S2 positive bowel sounds, abdomen is soft, nontender neuro patient is alert x3, no focal deficits +2 LE edema with mild weeping Results Labs 04/06/25 16:30 04/06/25 16:30 Labs: Laboratory Results - last 24 hr 04/06/25 16:30 MCV 87.2 MCH 25.6 L MCHC 29.4 L RDW 17.4 H Plt Count 193 MPV 9.4 Immature Gran % (Auto) 0.4 Neut % (Auto) 74.3 H Lymph % (Auto) 14.8 L Emanuel % (Auto) 8.4 Eos % (Auto) 1.9 Baso % (Auto) 0.2 Lymph # (Auto) 0.8 L Emanuel # (Auto) 0.4 Eos # (Auto) 0.1 Baso # (Auto) 0.0 Abs Immat Gran (auto) 0.02 Absolute Neuts (auto) 3.9 Absolute Nucleated RBC 0.000 Nucleated RBC % (auto) 0.0 Anion Gap 14 Estim Creat Clear Calc 24.1 Estimated GFR 20 Random Glucose 118 H Calcium 8.5 Total Bilirubin 0.8 Direct Bilirubin 0.4 AST 30 ALT 17 Alkaline Phosphatase 154 H B-Natriuretic Peptide 1481 H Total Protein 6.8 Albumin 3.2 L COVID-19 ([facility]) Negative COVID-19 Clin Com See Note Imaging Radiologist's Impressions: Impressions Chest X-Ray 04/06/25 15:15 IMPRESSION: 1. Stable cardiac enlargement. 2. Similar small to moderate size right layering effusion with underlying parenchymal consolidation. Electronically signed by: Jack Shah MD 04/06/2025 04:37 PM EDT RP Assessment and Plan (1) Congestive heart failure: Status: Acute Plan 74-year-old female with a PMH significant for?HFpEF (LVEF 52%), AFib on Eliquis, [id number] type 2 diabetes, HTN, HLD, CAD, and hyperparathyroidism who presented to the ED with?swelling in the scrotum and penis. Pt is admitted to the hospital for treatment and further evaluation of anasarca in the setting of acute CHF exacerbation Acute Respiratory failure with hypoxia due to acute exacerbation of HFpEF Question of medication compliance at home; has left AMA several times this month, last dc 04/04 Echo 12/05/24 with LVEF 52% continue Lasix 60mg IV bid Monitor on telemetry cardiology consultation KELSEY on CKD3 Likely cardiorenal Treat with IV diuretics as above Follow BMP Anasarca Likely multifactorial due to decompensated CHF, CKD, low albumin Right pleural effusion chronic diuresis as above Diabetes type 2 last Hba1c 5.5 can follow POCs and cover with SSI if needed HTN Continue amlodipine, carvedilol, lisinopril Persistent AFib Continue carvedilol and Eliquis HLD Continue statin Iron deficiency anemia Continue iron supplementation GERD Continue PPI Cognitive impairment Pt has at times appeared confused, though currently AO x4 Has been seen and evaluated by psychiatry recently and deemed to have capacity to make medical decisions on his own Full Code DVT Prophylaxis Eliquis Quality Stroke Does the patient have a stroke diagnosis?: No VTE Prior VTE?: No VTE Risk Level:: Medical - moderate - high VTE Device Contraindication: Treatment Not Indicated VTE Drug Contraindication: N/A - Med Ordered
--- NOTE | 2025-04-06 18:09 | PHA.MEDREC ---
Addendum entered by Ashley Monteiro [facility] 04/06/25 18:15: REVIEWED, utilized claims Original Note: Pharmacy Consult ? Medication Reconciliation Pharmacy has completed the medication reconciliation. Spoke with pt and he is a poor historian with his medications (pt was not able to confirm any of his medications). Pt Calcitirol Q48H but pt unsure about that med when asked and he isn't sure the last time he took it. Pt confirmed he took his morning medications this morning.
--- OUTSIDE RECORDS SUMMARY | 2025-04-06 18:21 | XMS_ITS | Encounter Summary ---
Author Organization [employer] [facility] Address [address] [place] [address] 7t [place] [address] Care Team Providers Care Line Appliance Assembler Name Role Phone Virginia PerezP Primary Care Provider Blanca Ring MD Primary Care Pro vider Cynthia Marshall NP Primary Care Provider Encounter Details Date Type Department Care Team (Latest Contact Info) Description 03/31/2021 Abstract [facility] CONVERSIONS Dental, Provider, DDS Social History [...] on filedocumented in this encounter Care Teams Line Appliance Assembler Relationship Specialty Start Date End Date Virginia Perez FNP PCP - General Family Medicine 04/28/22 03/28/23 Blanca Crowley MD [address] [place] [address] PCP - General Internal Medicine 03/29/23 09/09/23 Cynthia Marshall NP [address] [place], [place] [phone] PCP - General Family Medicine 09/10/23 Caretenders-Luis 01/01/25 documented as of this encounter
--- OUTSIDE RECORDS SUMMARY | 2025-04-06 18:21 | XMS_ITS | Encounter Summary ---
Author Organization [employer] Address [address] [facility] 7t [place] [address] Care Team Providers Care Freezer Person Name Role Phone Cynthia Marshall NP Primary Care Provider Encounter Details Date Type Department Care Team ([facility] st Contact Info) Description 09/26/2024 Orders Only [facility] [address] [place], [place] [phone] Cynthia Marshall NP [address] [place] [address] Stage 3b chronic kidney disease (CMS/HCC) Social [...] documented as of this encounter Care Teams Freezer Person Relationship Specialty Start Date End Date Cynthia Marshall NP [address] [place] [address] PCP - General Family Medicine 09/10/23 Katelyn-Luis 01/01/25 documented as of this encounter
--- OUTSIDE RECORDS SUMMARY | 2025-04-06 18:21 | XMS_ITS | Encounter Summary ---
Author Organization [employer] Address [address] [facility] 7t [place] [address] Care Team Providers Care Senior Security Engineer Name Role Phone Cynthia Marshall NP Primary Care Provider [phone] Reason for Visit * Reason Onset Date Comments Nurse Triage 02/10/2025 Encounter Details Date Type Department Care Team ([facility] st Contact Info) Description 02/10/2025 Telephone [facility] MEDICINE [address] [place], [place] [phone] Cynthia Marshall NP [address] [place] [address] Nurse Triage Social History Tobacco Use Types Packs/Day Years [...] encounter Miscellaneous Notes * Telephone Encounter - Jael Adam RN - 02/10/2025 4:43 PM EDT Call returned to Ally [facility] [phone] 174/84 patient is asymptomatic. Pt seen by VNA yesterday. Pt had not yet taken any BP meds prior toBP check. Pt given BP meds by VNA. Pt did not have VNA visit today. Pt is being seen by VNA tomorrow. States not the first time is reporting elevated BP readings. VNA advised to call tomorrow with current BP readings if continues to be elevated. Call to Ethan Cristina at [phone], daughter answers, on HIPAA. Not curently with patient. Unsure of what BP readings was today or if it was checked. Asked to call pt at mobile number Telephone Information: Call to Ethan Cristina at [phone] to further triage. Reports has not yet checked Bp and cannot remember if meds taken today. Pt is not a great historian. Denies having any CP, SOB , LAMBERT or dizziness. Reviewed home care advise, ER precautions and reasons to call back. Advised to have VNA call office with BP readings during VNA visit tomorrow. Will forward to PCP and Team nurses to update and tofollow up with VNA PRN regarding BP parameters or changes to HTN management plan of care. Protocol Used: Blood Pressure - High (Adult) Protocol-Based Disposition: See in Office or Video Visit within 3 Days Override (Final) Disposition: Discuss with PCP and Callback by Nurse Override Reason: End of day or office closed Video visit offer not recorded Positive Triage Question: * Systolic BP >= 160 OR Diastolic >= 100 * All higher-acuity triage questions were negative Care Advice Discussed: * High Blood Pressure * Reasons To Call Back - Headache, blurred vision, difficulty talking, or difficulty walking occurs - Chest pain or difficulty breathing occurs - You become worse * Telephone Encounter - Radha Luna - 02/10/2025 4:35 PM EDT Symptom: High Blood Pressure - Caller Reports Outcome: Schedule a same-day appointment or talk to a nurse or provider today Reason: Caller denied all higher acuity questions The caller accepted this outcome. dimitrios MAGALYA stated pt is not taking medication and pt does not wanna go to the ER. documented in this encounter Plan of Treatment Not on file documented as of this encounter Visit Diagnoses Not on filedocumented in this encounter Additional Health Concerns Assessment Noted Time PHQ-9 Depression Total Score: 3 01/22/20 25 10:47 AM EDT documented as of this encounter Care Teams Senior Security Engineer Relationship Specialty Start Date End Date Cynthia Marshall NP [address] [place] [address] PCP - General Family Medicine 09/10/23 Katelyn-Luis 01/01/25 documented as of this encounter
--- OUTSIDE RECORDS SUMMARY | 2025-04-06 18:21 | XMS_ITS | Encounter Summary ---
Author Organization [facility] Address [address] [place] [address] Phone Care Team Providers Care Indigo Mixer Name Role Phone Arielle Godinez Primary Care Provider Unavailabl e Encounter Details Date Type Department Care Team (Late st Contact Info) Description 01/03/2024 Office Communication [facility] [address] [place] [address] Soy Meléndez MD [address] [facility] [address] [place] [address] Social History Tobacco Use Types [...] on filedocumented in this encounter Care Teams Indigo Mixer Relationship Specialty Start Date End Date Arielle Godinez PCP - General Family Medicine 08/10/21 documented as of this encounter
--- OUTSIDE RECORDS SUMMARY | 2025-04-06 18:21 | XMS_ITS | Encounter Summary ---
Author Organization [employer] Address [address] [place] [address] 7t [place] [address] Care Team Providers Care Slip Cover Estimator Name Role Phone Virginia Perez Primary Care Provider Iveth Blanca Ferraro MD Primary Care Pro vider Cynthia Marshall NP Primary Care Provider [phone] Encounter Details Date Type Department Care Team (Late st Contact Info) Description 01/01/2023 Abstract [facility] MEDICINE [address] [place], [place] [phone] Virginia Perez FNP Social History Tobacco Use Types Packs/Day [...] on filedocumented in this encounter Care Teams Slip Cover Estimator Relationship Specialty Start Date End Date Virginia Perez FNP PCP - General Family Medicine 04/28/22 03/28/23 Blanca Crowley MD [address] [place], [place] [phone] PCP - General Internal Medicine 03/29/23 09/09/23 Cynthia Marshall NP [address] [place] [address] PCP - General Family Medicine 09/10/23 Evette 01/01/25 documented as of this encounter
--- OUTSIDE RECORDS SUMMARY | 2025-04-06 18:21 | XMS_ITS | Clinical Summary ---
Author Organization [address] Address [address] [place] [address] Phone Care Team Providers Care Cultural Centre Manager Name Role Phone Jarad Lundy MD Primary Care Provider [phone] Surgical History Surgery Date Site/Laterality Comments SHOULDER SURGERY 06/18/07 PROCEDURE: HISTORICAL SHOULDER SURGERY; COMMENT: Rotator cuff- Dr. 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 V24) 10/07/2013 DX:Basilar artery aneurysm ([facility]) Type 2 diabetes, diet contro lled ([facility] V24, [facility] V28) 10/07/2013 DX:Type 2 diabetes, diet co ntrolled ([facility]) Type 2 diabetes, diet contro lled ([facility] V24, [facility] V28) 10/07/2013 DX:Type 2 diabetes, diet co ntrolled ([facility]) Controlled type 2 diabetes w ith renal [...] Health Maintenance Due Date Last Done Comments Diabetes: Annual Foot Exam 1962 Diabetes: Annual Retina Eye Exam 1962 RSV Immunization Adult Patients (1 - Risk 60-74 years 1-dose series) 2012 Abdominal Aortic Aneurysm (AAA) Screen 07/26/2022 Colorectal Cancer Screening: Colonoscopy 07/26/2022 Falls Risk Assessment 07/26/2022 Hepatitis C Screening 07/26/2022 Social Influencers of Health Screening 07/26/2022 Hepatitis B Vaccines (3 of 3 - 19+ 3-dose series) 11/24/2022 06/28/2022, 05/26/2022 COVID-19 Vaccine ( season) 2024 07/11/2021, 01/28/2021, 12/31/2020 Depression Screening 08/13/2024 Diabetes: Annual Urine Albumin-Creatinine Ratio (uACR) 12/19/2024 Influenza Vaccine (#1) 2025 , 08/01/2021, 06/09/2013, Additional history exists Diabetes: Blood Sugar Control Test (HGBA1C) 06/21/2025 12/19/2024, 12/03/2024 Diabetes: Annual GFR (Glomerular Filtration Rate) 12/19/2025 12/19/2024, 12/17/2024, 11/23/2024, Additional history exists Hypertension/CHF/CAD Annual BMP Blood Test 12/19/2025 12/19/2024, 12/17/2024, 11/23/2024, Additional history exists Cholesterol Screening (Lipid Panel) 07/11/2026 07/11/2021 DTaP,Tdap,and Td Vaccines (3 - Td or Tdap) 08/23/2027 [...] age to complete this topic Meningococcal B Vaccine Aged Out No l onger eligible based on patient's age to complete this topic RSV Immunization Patients Under 20 months Aged Out No longer eligible based on patient's age to complete this topic Varicella Vaccines Aged Out No longer eligible based on patient's age to complete this topic Procedures Procedure Name Priority Date/Time Associated Diagnosis Comments COMPREHENSIVE METABOLIC PANEL Routine 12/19/2024 4:48 AM EDT Type 2 diabetes mellitus without complications ([facility] V24, [facility] V28) HEMOGLOBIN A1C Routine 12/19/2024 4:48 AM EDT Type 2 diabetes mellitus without complications ([facility] V24, [facility] V28) from Last 3 Months or Most Recently Relevant to Health Maintenance Results * Hemoglobin A1c (12/19/2024 4:48 AM EDT) Hemoglobin A1C 5.7 <6.5 % LAB CHEMISTRY METHOD 12/19/2024 11:02 AM EDT [facility] Mean Bld Glu Estim. 117 mg/dL LAB CHEMISTRY METHOD 12/19/2024 11:02 AM EDT [facility] Blood Venous blood specimen / Unknown Venipuncture / Unknown 12/19/2024 4:48 AM EDT 12/19/2024 7:19 AM EDT us Jarad Lundy MD LAB BLOOD ORDERABLES Final Resu lt [facility] [address] [place] [address], [place] [phone] * (ABNORMAL) Comprehensive metabolic panel (12/19/2024 4:48 AM EDT) Sodium 141 133 - 145 mmol/L LAB CHEMISTRY METHOD 12/19/2024 8:20 AM [facility] Potassium 3.3(L) 3.5 - 5.5 mmol/L LAB CHEMISTRY METHOD 12/19/2024 8:20 AM [facility] Chloride 106 96 - 110 mmol/L LAB CHEMISTRY METHOD 12/19/2024 8:20 AM [facility] CO2 26 21 - 32 mmol/L LAB CHEMISTRY METHOD 12/19/2024 8:20 AM [facility] Anion Gap 9 3 - 11 LAB CHEMISTRY METHOD 12/19/2024 8:20 AM [facility] Glucose 74 70 - 100 mg/dL LAB CHEMISTRY METHOD 12/19/2024 8:20 AM [facility] BUN 26(H) 5 - 25 mg/dL LAB CHEMISTRY METHOD 12/19/2024 8:20 AM [facility] Creatinine 1.68(H) 0.70 - 1.30 mg/dL LAB CHEMISTRY METHOD 12/19/2024 8:20 AM [facility] eGFR 43(L) >=60 mL/min/1. 73m2 LAB CHEMISTRY METHOD 12/19/2024 8:20 AM [facility] Comment:Calculation based on the Chronic Kidney Disease Epidemiology Collaboration (CKD-EPI) equation refit without adjustment for race. BUN/Creatinine Ratio 15.5 LAB CHEMISTRY METHOD 12/19/2024 8:20 AM [facility] Calcium 8.1(L) 8.5 - 10.5 mg/dL LAB CHEMISTRY METHOD 12/19/2024 8:20 AM [facility] AST (SGOT) 20 10 - 42 unit/L LAB CHEMISTRY METHOD 12/19/2024 8:20 AM [facility] ALT (SGPT) 18 10 - 60 unit/L LAB CHEMISTRY METHOD 12/19/2024 8:20 AM [facility] Alkaline Phosphatase 210(H) 42 - 121 unit/L LAB CHEMISTRY METHOD 12/19/2024 8:20 AM EDT [facility] Total Protein 5.3(L) 6.0 - 8.0 g/dL LAB CHEMISTRY METHOD 12/19/2024 8:20 AM EDT [facility] Albumin 2.0(L) 3.2 - 5.0 g/dL LAB CHEMISTRY METHOD 12/19/2024 8:20 AM EDT [facility] Total Bilirubin 0.6 0.0 - 1.4 mg/dL LAB CHEMISTRY METHOD 12/19/2024 8:20 AM EDT [facility] Blood Venous blood specimen / Unknown Venipuncture / Unknown 12/19/2024 4:48 AM EDT 12/19/2024 7:19 AM EDT us Jarad Lundy MD LAB BLOOD ORDERABLES Final Resu lt [facility] [address] [place] [address], from Last 3 Months or Most Recently Relevant to Health Maintenance Insurance [place]ICAID - [place] [facility] [place] [place] [place] [id number] Care Teams Cultural Centre Manager Relationship Specialty Start Date End Date Jarad Lundy MD [address] [place] [id number] PCP - General Hospitalist Medicine 12/17/24
--- OUTSIDE RECORDS SUMMARY | 2025-04-06 18:21 | XMS_ITS | Encounter Summary ---
Author Organization [employer] Address [address] 7t [place] [address] Care Team Providers Care Private Duty Aide Name Role Phone Cynthia Marshall NP Primary Care Provider [phone] Encounter Details Date Type Department Care Team (Latest Contact Info) Description 04/06/2025 Travel Social History Tobacco Use Types Packs/Day Years [...] documented as of this encounter Care Teams Private Duty Aide Relationship Specialty Start Date End Date Cynthia Marshall NP [address] [place] [id number] PCP - General Family Medicine 09/10/23 Katelyn-Luis 01/01/25 documented as of this encounter
--- OUTSIDE RECORDS SUMMARY | 2025-04-06 18:21 | XMS_ITS | Encounter Summary ---
Author Organization [employer] Address [address] 7t [place] [address] Care Team Providers Care Valve Tester Name Role Phone Cynthia Marshall NP Primary Care Provider [phone] Reason for Visit * Reason Comments Med Refill Encounter Details Date Type Department Care Team ([facility] st Contact Info) Description 02/07/2025 Refill [facility] MEDICINE [address] [place] [address] Cynthia Marshall NP [address] [place] [address] Social History Tobacco Use Types Packs/Day Years [...] documented as of this encounter Care Teams Valve Tester Relationship Specialty Start Date End Date Cynthia Marshall NP [address] [place] [address] PCP - General Family Medicine 09/10/23 Katelyn-Chelan 01/01/25 documented as of this encounter
--- OUTSIDE RECORDS SUMMARY | 2025-04-06 18:21 | XMS_ITS | Encounter Summary ---
Author Organization [employer] Address [address] [place] [address] Care Team Providers Care Lead Architect Name Role Phone Cynthia Marshall NP Primary Care Provider [phone] Encounter Details Date Type Department Care Team (Late st Contact Info) Description 04/04/2025 Orders Only GENERIC EXTERNAL DATA DEPARTMENT Provider, [...] URINALYSIS, COMPLETE, WITH REFLEX TO CULTURE Routine 04/04/2025 10:11 AM EDT XR CHEST 2 VIEWS Routine 04/04/2025 9:51 AM EDT SARS COV2/INFLUENZA A/B AND RSV RNA QL NAAT Routine 04/04/2025 9:25 AM EDT VENOUS BLOOD GAS Routine 04/04/2025 7:48 AM EDT documented in this encounter Results * (ABNORMAL) Urinalysis, Complete, with Reflex to Culture (04/04/2025 10:11 AM EDT) Color Urine Yellow [facility] Appearance Urine Clear [facility] PH 6.0 5.0 - 9.0 [facility] Glucose Urine UA Negative Negative mg/dL [facility] Urine Blood Negative Negative [facility] Specific Dante - Urine 1.015 1.005 - 1.025 [facility] Urine Protein 100 (2+)(A) Neg-Trace mg/dL [facility] Urine Ketones Negative Negative mg/dL [facility] Nitrite Urine Negative Negative [facility] Leukocyte Esterase Urine Trace(A) Negative [facility] RBC Urine 0-2 0 - 2 /HPF [facility] Urine WBC 0-5 0 - 5 /HPF [facility] Urine Squamous Epithelial Cell 0-2 0 - 2 /HPF [facility] Urine Bacteria None Seen None Seen [facility] Hyaline Casts, Urine 0-2 0 - 2 /LPF [facility] 04/04/2025 10:1 1 AM EDT 04/04/2025 10:16 AM EDT Narrative [facility] - 04/04/2025 10:24 AM EDT Urine, Clean Catch us Generic External Data Provider LAB URINE ORDERAB LES Final Result Performing Organization Address City/State/[facility] Co de Phone Number [facility] [address] [place] [phone] * XR Chest 2 Views (04/04/2025 9:51 AM EDT) Anatomical Region Laterality Modality Chest Radiographic Smitha ging 04/04/2025 9:51 AM EDT Narrative 04/04/2025 9:52 AM EDT [address] [address] XRay Report Signed Patient: Ethan Cristina MR#: [id number] 0 : 1950 Acct:[id number] Age/Sex: 74 / M ADM Date: 04/04/25 Loc: .ED Attending Dr: Ordering Physician: Ernestine Vazquez NP Date of Service: 04/04/25 Procedure(s): XR chest 2V Accession Number(s): [id number] cc: Ernestine Vazquez NP; Blanca Crowley MD CLINICAL HISTORY: sob Exam: PA and lateral views of the chest. Comparison: January 22, 2025. Findings: Interval increase in size of a moderate-sized right pleural effusion. There is a small left pleural effusion. There is obscuration of the inferior right heart border in the right hemidiaphragm due to the pleural effusion. Cardiac silhouette is sivo-bt-lmyxjvtgir enlarged. Central interstitial markings are diffusely prominent. Degenerative change of both shoulder joints. Impression: Congestive heart failure. This document has been electronically signed by: Ajith Muniz MD on 04/04/2025 09:51:59 Dictated By: Ajith Muniz MD Signed By: <Electronically signed by Ajith Muniz MD in OV> 04/04/25951 DD/ 0 TD/TT: 04/04/25950 Gaggerman: Procedure Note Donotuseinterpreter, Image - 04/04/[address] [address] XRay Report Signed Patient: Ethan CristinaMR#: [id number] 0 : 1950cct:[id number] Age/Sex: 74 / MADM Date: 04/04/25 Loc: .ED Attending Dr: Ordering Physician: Ernestine Vazquez NP Date of Service: 04/04/25 Procedure(s): XR chest 2V Accession Number(s): [id number] cc: Ernestine Vazquez NP; Blanca Crowley MD CLINICAL HISTORY: sob Exam: PA and lateral views of the chest. Comparison: January 22, 2025. Findings: Interval increase in size of a moderate-sized right pleural effusion. There is a small left pleural effusion. There is obscuration of the inferior right heart border in the right hemidiaphragm due to the pleural effusion. Cardiac silhouette is olai-vs-zffnlbxtma enlarged. Central interstitial markings are diffusely prominent. Degenerative change of both shoulder joints. Impression: Congestive heart failure. This document has been electronically signed by: Ajith Muniz MD on 04/04/2025 09:51:59 Dictated By: Ajith Muniz MD Signed By: <Electronically signed by Ajith Muniz MD in OV> 04/04/25951 DD/ 0 TD/TT: 04/04/25950 Gaggerman: [facility] External Provider IMG XR PROCEDURES Edited Result - Final * SARS-CoV-2 RNA, Influenza A/B, and RSV RNA, Ql NAAT (04/04/2025 9:25 AM EDT) Influenza A PCR NEGATIVE Negative [facility] Influenza B PCR NEGATIVE Negative [facility] Resp Syncy Virus RNA Qual PCR NEGATIVE Negative [facility] SARS COV2 PCR NEGATIVE Negative [facility] Comment:All test results mus t be correlated with clinical findings.Negative results do not preclude SARS-CoV2, influenza Avirus, influenza B virus and/or RSV infectionand should not be used as the sole basis for treatment orother patient management decisions. Negative results must becombined with clinical observations, patient history, andepidemiological information.This test has not been evaluated for monitoring treatment ofinfection.This test has been authorized by the FDA under an EmergencyUse Authorization (EUA) for use by authorized laboratories.Testing performed on the [employer] GeneXpert utilizingreal-time RT-PCR.All SARS CoV2 and positive influenza A/B results arereported to [facility]. 04/04/2025 9:25 AM EDT 04/04/2025 9:28 AM EDT us Generic External Data Provider LAB MICROBIOLOGY - GENERAL ORDERABLES Final Result [facility] [address] [place] [phone] * (ABNORMAL) VENOUS BLOOD GAS (04/04/2025 7:48 AM EDT) VBG pH 7.44(H) 7.32 - 7.43 [facility] Comment:METER #: [id number] additional_comment: MIREYA CEVALLOS VBG PCO2 40 mmHg [facility] Comment:METER #: [id number] additional_comment: MIREYA CEVALLOS VBG PO2 39 mmHg [facility] Comment:METER #: [id number] additional_comment: MIREYA CEVALLOS VBG Base Excess 3.3 mmol/L [facility] Comment:METER #: [id number] additional_comment: MIREYA CEVALLOS VBG HCO3 27(H) 22 - 26 mmol/L [facility] Comment:METER #: [id number] additional_comment: MIREYA CEVALLOS O2 Sat, Kota 51.0 % [facility] Comment:METER #: [id number] additional_comment: MIREYA CEVALLOS 04/04/2025 7:48 AM EDT 04/04/2025 7:52 AM EDT us Generic External Data Provider LAB BLOOD ORDERAB LES Final Result Performing Organization Address City/State/[facility] Co de Phone Number [facility] [address] [place] [phone] [phone] documented in this encounter Visit Diagnoses Not on filedocumented in this encounter Additional Health Concerns Assessment Noted Time PHQ-9 Depression Total Score: 3 01/22/20 25 10:47 AM EDT documented as of this encounter Care Teams Lead Architect Relationship Specialty Start Date End Date Cynthia Marshall NP [address] [place] [phone] PCP - General Family Medicine 09/10/23 [facility] 01/01/25 documented as of this encounter
--- OUTSIDE RECORDS SUMMARY | 2025-04-06 18:21 | XMS_ITS | Clinical Summary ---
Author Organization [facility] Address [address] [place] [address] Care Team Providers Care Stretcher And Drier Name Role Phone Arielle Godinez Primary Care Provider Unavailabl e Allergies No known active allergies Medications Lancets (OneTouch Delica Plus [id number]) [facility] TEST BLOOD SUGAR NEEDED, [...] (01/04/2024): Last Assessment & Plan: Lesion right mosque suspicious for [place], referral to derm Chronic [...] h diabetic autonomic (poly)neuropathy 10/17/2021 10/17/2021 Immunizations Immunization Administration Dates Next Due Hepatitis B 06/28/2022,05/26/2022 [...] Hemoglobin A1C 01/06/2024 10/08/2023 Influenza Vaccine (#1) 2025 , 08/01/2021, 06/09/2013, Additional history exists Pneumococcal Vaccine: 50+ Years Completed 05/24/2022, 09/30/2019, 06/22/2014 Hepatitis B Vaccine Aged Out 06/28/2022, 2 No longer eligible based on patient's age to complete this topic Insurance [place] [id number] [place] [facility] ([id number]) Care Teams Stretcher And Drier Relationship Specialty Start Date End Date Arielle Godinez PCP - General Family Medicine 08/10/21
--- OUTSIDE RECORDS SUMMARY | 2025-04-06 18:21 | XMS_ITS | Encounter Summary ---
Author Organization [employer] Address [address] [facility] 7t [place] [address] Care Team Providers Care Caustic Plant Worker Name Role Phone Cynthia Marshall NP Primary Care Provider [phone] Reason for Visit * Reason Onset Date Comments Returning Call 01/12/2025 Encounter Details Date Type Department Care Team ([facility] st Contact Info) Description 01/12/2025 Telephone [facility] [address] [place], [place] [phone] Cynthia Marshall NP [address] [place], [place] [phone] Returning Call Social History Tobacco Use Types Packs/Day Years [...] encounter Miscellaneous Notes * Telephone Encounter - Wilberto Mcgraw - 01/12/2025 11:03 AM EDT Tc from daughter, also pt's health care proxy, stating she received a call around 10:30 today but caller did not leave a message nor documentation. documented in this encounter Plan of Treatment Not on file documented as of this encounter Visit Diagnoses Not on filedocumented in this encounter Additional Health Concerns Assessment Noted Time PHQ-9 Depression Total Score: 0 01/21/20 24 11:17 AM EDT documented as of this encounter Care Teams Caustic Plant Worker Relationship Specialty Start Date End Date Cynthia Marshall NP [address] [place] [address] PCP - General Family Medicine 09/10/23 [facility] 01/01/25 documented as of this encounter
--- OUTSIDE RECORDS SUMMARY | 2025-04-06 18:21 | XMS_ITS | Encounter Summary ---
Author Organization [employer] Address [address] [place] [address] Care Team Providers Care Baker Test Name Role Phone Jarad Lundy MD Primary Care Provider [phone] Encounter Details Date Type Department Care Team (Late st Contact Info) Description 12/17/2024 Lab Requisition [facility] - Main Lab [address] [facility] [place] [address] Jarad Lundy MD [address] [place] [phone] Anemia, unspecified; Chronic kidney disease, stage 3a [...] MD LAB BLOOD ORDERABLES Final Resu lt [facility] [address] [place] [address], [place] [phone] * (ABNORMAL) Basic metabolic panel (12/17/2024 4:55 [...] LAB CHEMISTRY METHOD 12/17/2024 9:22 AM EDT [facility] Comment:Calculation based on the Chronic Kidney Disease Epidemiology Collaboration (CKD-EPI) equation refit without adjustment for race. BUN/Creatinine Ratio 16.1 LAB CHEMISTRY METHOD 12/17/2024 9:22 AM EDT [facility] Calcium 8.2(L) 8.5 - 10.5 mg/dL LAB CHEMISTRY METHOD 12/17/2024 9:22 AM EDT [facility] Blood Venous blood specimen / Unknown Venipuncture / Unknown 12/17/2024 4:55 AM EDT 12/17/2024 8:39 AM EDT us Jarad Lundy MD LAB BLOOD ORDERABLES Final Resu lt [facility] [address] [place] [address], documented in this encounter Visit Diagnoses Diagnosis Anemia, unspecified Chronic kidney disease, stage 3a (CMS/HCC V24, CMS/HCC V28) documented in this encounter Care Teams Baker Test Relationship Specialty Start Date End Date Jarad Lundy MD [address] [place] [address] PCP - General Hospitalist Medicine 12/17/24 documented as of this encounter
--- OUTSIDE RECORDS SUMMARY | 2025-04-06 18:21 | XMS_ITS | Encounter Summary ---
Author Organization [employer] Address [address] [place] [address] Care Team Providers Care Marble Setter Helper Name Role Phone Jarad Lundy MD Primary Care Provider Encounter Details Date Type Department Care Team (Latest Contact Info) Description 12/19/2024 Lab Requisition [facility] - Main Lab [address] [facility] [place] [address] Jarad Lundy MD [address] [place] [phone] Type 2 diabetes mellitus without complications ([facility] V24, [facility] V28) Social History Tobacco Use Types Packs/Day [...] EDT Type 2 diabetes mellitus without complications ([facility]/HCC V24, CMS/[facility] V28) HEMOGLOBIN A1C Routine 12/19/2024 4:48 AM EDT Type 2 diabetes mellitus without complications ([facility] V24, CMS/[facility] V28) COMPREHENSIVE METABOLIC PANEL Routine 12/19/2024 4:48 AM EDT Type 2 diabetes mellitus without complications ([facility] V24, CMS/[facility] V28) documented in this encounter Results * Hemoglobin A1c (12/19/2024 4:48 AM EDT) Pathologist [facility] Hemoglobin A1C 5.7 <6.5 % LAB CHEMISTRY METHOD 12/19/2024 11:02 AM T [facility] Mean Bld Glu Estim. 117 mg/dL LAB CHEMISTRY METHOD 12/19/2024 11:02 AM [facility] Blood Venous blood specimen / Unknown Venipuncture / Unknown 12/19/2024 4:48 AM EDT 12/19/2024 7:19 AM EDT us Jarad Lundy MD LAB BLOOD ORDERABLES Final Resu lt [facility] [address] [place] [address], * (ABNORMAL) Comprehensive metabolic panel (12/19/2024 4:48 AM EDT) [facility] Sodium 141 133 - 145 mmol/L LAB CHEMISTRY METHOD 12/19/2024 8:20 AM [facility] Potassium 3.3(L) 3.5 - 5.5 mmol/L LAB CHEMISTRY METHOD 12/19/2024 8:20 AM [facility] Chloride 106 96 - 110 mmol/L LAB CHEMISTRY METHOD 12/19/2024 8:20 AM [facility] CO2 26 21 - 32 mmol/L LAB CHEMISTRY METHOD 12/19/2024 8:20 AM [facility] Anion Gap 9 3 - 11 LAB CHEMISTRY METHOD 12/19/2024 8:20 AM [facility] Glucose 74 70 - 100 mg/dL LAB CHEMISTRY METHOD 12/19/2024 8:20 AM [facility] BUN 26(H) 5 - 25 mg/dL LAB CHEMISTRY METHOD 12/19/2024 8:20 AM [facility] Creatinine 1.68(H) 0.70 - 1.30 mg/dL LAB CHEMISTRY METHOD 12/19/2024 8:20 AM [facility] eGFR 43(L) >=60 mL/min/1. 73m2 LAB CHEMISTRY METHOD 12/19/2024 8:20 AM [facility] Comment:Calculation based on the Chronic Kidney Disease Epidemiology Collaboration (CKD-EPI) equation refit without adjustment for race. BUN/Creatinine Ratio 15.5 LAB CHEMISTRY METHOD 12/19/2024 8:20 AM [facility] Calcium 8.1(L) 8.5 - 10.5 mg/dL LAB CHEMISTRY METHOD 12/19/2024 8:20 AM [facility] AST (SGOT) 20 10 - 42 unit/L LAB CHEMISTRY METHOD 12/19/2024 8:20 AM [facility] ALT (SGPT) 18 10 - 60 unit/L LAB CHEMISTRY METHOD 12/19/2024 8:20 AM [facility] Alkaline Phosphatase 210(H) 42 - 121 unit/L LAB CHEMISTRY METHOD 12/19/2024 8:20 AM [facility] Total Protein 5.3(L) 6.0 - 8.0 g/dL LAB CHEMISTRY METHOD 12/19/2024 8:20 AM [facility] Albumin 2.0(L) 3.2 - 5.0 g/dL LAB CHEMISTRY METHOD 12/19/2024 8:20 AM [facility] Total Bilirubin 0.6 0.0 - 1.4 mg/dL LAB CHEMISTRY METHOD 12/19/2024 8:20 AM [facility] Blood Venous blood specimen / Unknown Venipuncture / Unknown 12/19/2024 4:48 AM EDT 12/19/2024 7:19 AM EDT us Jarad Lundy MD LAB BLOOD ORDERABLES Final Resu lt [facility] [address] [place] [address], * (ABNORMAL) Complete blood count (12/19/2024 4:48 AM EDT) [facility] Signature WBC 9.1 4.8 - 10.8 K/mcL LAB HEMETOLOGY METHOD 12/19/2024 7:52 AM EDT [facility] RBC 3.60(L) 4.50 - 5.50 M/mcL LAB HEMETOLOGY METHOD 12/19/2024 7:52 AM EDT [facility] Hemoglobin 10.3(L) 13.5 - 17.5 g/dL LAB HEMETOLOGY METHOD 12/19/2024 7:52 AM EDT [facility] Hematocrit 31.6(L) 42.0 - 54.0 % LAB HEMETOLOGY METHOD 12/19/2024 7:52 AM EDT [facility] MCV 88.8 79.0 - 98.0 FL LAB HEMETOLOGY METHOD 12/19/2024 7:52 AM EDT [facility] MCH 28.9 27.0 - 32.0 pcg LAB HEMETOLOGY METHOD 12/19/2024 7[facility] MCHC 32.6 32.0 - 37.0 g/dL LAB HEMETOLOGY METHOD 12/19/2024 7:52 AM EDT [facility] RDW 16.2(H) 11.0 - 15.0 % LAB HEMETOLOGY METHOD 12/19/2024 7:52 AM EDT [facility] Platelets 308 130 - 400 K/mcL LAB HEMETOLOGY METHOD 12/19/2024 7[facility] MPV 9.1 7.0 - 11.0 FL LAB HEMETOLOGY METHOD 12/19/2024 7:52 AM EDT [facility] NRBC 0.0 <1.0 % LAB HEMETOLOGY METHOD 12/19/2024 7:52 AM EDT [facility] NRBC Absolute 0.00 <0.10 K/mcL LAB HEMETOLOGY METHOD 12/19/2024 7:52 AM EDT [facility] Blood Venous blood specimen / Unknown Venipuncture / Unknown 12/19/2024 4:48 AM EDT 12/19/2024 7:19 AM EDT us Jarad Lundy MD LAB BLOOD ORDERABLES Final Resu lt [facility] [address] [place] [address], [place] [phone] documented in this encounter Visit Diagnoses Diagnosis Type 2 diabetes mellitus without complications (CMS/HCC V24, CMS/HCC V28) documented in this encounter Care Teams Marble Setter Helper Relationship Specialty Start Date End Date Jarad Lundy MD [address] [place] [phone] PCP - General Hospitalist Medicine 12/17/24 documented as of this encounter
--- OUTSIDE RECORDS SUMMARY | 2025-04-06 18:21 | XMS_ITS | Encounter Summary ---
Author Organization [employer] Address [address] [facility] 7t [place] [address] Care Team Providers Care Auto Driver Name Role Phone Cynthia Marshall NP Primary Care Provider [phone] Reason for Visit * Reason Comments Med Refill Encounter Details Date Type Department Care Team ([facility] st Contact Info) Description 11/04/2023 Refill [facility] [address] [place] [address] Blanca Crowley MD [address] [place] [address] Social History Tobacco Use Types Packs/Day Years [...] documented as of this encounter Care Teams Auto Driver Relationship Specialty Start Date End Date Cynthia Marshall NP [address] [place] [address] PCP - General Family Medicine 09/10/23 [facility] 01/01/25 documented as of this encounter
--- OUTSIDE RECORDS SUMMARY | 2025-04-06 18:21 | XMS_ITS | Encounter Summary ---
Author Organization [employer] Address [address] [facility] 7t [place] [address] Care Team Providers Care Tricot Knitter Name Role Phone Cynthia Marshall NP Primary Care Provider [phone] Reason for Visit * Reason Onset Date Comments Nurse Triage 02/12/2025 Encounter Details Date Type Department Care Team ([facility] st Contact Info) Description 02/12/2025 Telephone [facility] [address] [place], [place] [phone] Cynthia Marshall NP [address] [place] [address] Nurse Triage Social History Tobacco Use Types [...] encounter Miscellaneous Notes * Telephone Encounter - Shoshana Chaudhary RN - 02/16/2025 4:23 PM EDT Tc to pt daughter to confirm if pt has been taking their BP medication and diuretics as prescribed.Daughter reports unsure due to pt levaing at home by themselves. Asked daughter if they would be able to weigh pt on the days [facility] is not able to. Daughter reports they cannot do that. Tc to [facility] spokewith DMITRY blair reports pt usually takes their medications but they tend to be forgetful and there has been times which they've visited pt and noticed they have not taken their morning meds. [facility]NA visits pt 2x weekly. Nakia reports they tried to weigh pt but their scale had no batteries so they ordered another one for pt. They will check to see if pt received it. Advised [facility]NA to start daily weight/BP and to yashira our office on Sunday for review. Nakia reports they will see tomorrow and agrees with plan. Message sent to PCP for review. * Telephone Encounter - Ashley Solis RN - 02/12/2025 2:59 PM EDT Called pt. [facility]NA nurse Nakia. VNA nurse states that pt. Has been having elevated BP for quite sometime. Pt. Does not have any sx. Of high blood pressure but, readings are around 185/70 and pulse 78as of today. [facility]NA nurse is looking for an increase in BP medication. Pt. Has appt. Coming up on 03/04/25 and Daughter wants to discuss some needs that she thinks pt. May benefit from. Please advise andhave team nurse call back [facility] nurse if BP medication is increased. * Telephone Encounter - Radha Luna - 02/12/2025 2:11 PM EDT Tc from [facility] requesting medication for High Blood pressure. Due to pt constantly having High pressure. Pt refused to go to emergency room. Blood pressure; 185/70 Heart rate; 78 Symptom: High Blood Pressure - Caller Reports Outcome: Schedule a same-day appointment or talk to a nurse or provider today Reason: Caller denied all higher acuity questions The caller accepted this outcome. Contact Ally at [phone] documented in this encounter Plan of Treatment Not on file documented as of this encounter Visit Diagnoses Not on filedocumented in this encounter Additional Health Concerns Assessment Noted Time PHQ-9 Depression Total Score: 3 01/22/20 25 10:47 AM EDT documented as of this encounter Care Teams Tricot Knitter Relationship Specialty Start Date End Date Cynthia Marshall NP [address] [place] [address] PCP - General Family Medicine 09/10/23 [facility] 01/01/25 documented as of this encounter
--- OUTSIDE RECORDS SUMMARY | 2025-04-06 18:21 | XMS_ITS | Encounter Summary ---
Author Organization [employer] Address [address] [facility] 7t [place] [address] Care Team Providers Care Tumor Registrar Name Role Phone Cynthia Marshall NP Primary Care Provider [phone] Encounter Details Date Type Department Care Team (Late st Contact Info) Description 02/02/2025 Orders Only [facility] [address] [place] [address] Severino Santoro, PharmD [address] [place] [address] Social History Tobacco Use Types Packs/Day Years [...] documented as of this encounter Care Teams Tumor Registrar Relationship Specialty Start Date End Date Cynthia Marshall NP [address] [place] [address] PCP - General Family Medicine 09/10/23 [facility] 01/01/25 documented as of this encounter
--- OUTSIDE RECORDS SUMMARY | 2025-04-06 18:21 | XMS_ITS | Encounter Summary ---
Author Organization [employer] Address [address] [place] [address] Care Team Providers Care Justowriter Operator Name Role Phone Cynthia Marshall NP Primary Care Provider [phone] Encounter Details Date Type Department Care Team ([facility] st Contact Info) Description 04/06/2025 Telephone [facility] [address] [place] [address] Cynthia Marshall NP [address] [place] [address] Social History Tobacco Use Types Packs/Day Years [...] encounter Miscellaneous Notes * Telephone Encounter - Renata Collazo RN - 04/06/2025 3:41 PM EDT Patient presents to walk in center today SOB was wheeled back to triage room placed on 6 L of oxygen as )2 in waiting room was 82 then up to 86 before placing on O2. Pt has been in ED multiple times this month and 911called from [facility] three times. Pt daughter has verbally expressed concerns of pt mental forgetfulness however ED always deems him competent. Per Dr Barba pt needs to be scheduled for mini mental and walk test as he has no oxygen at home also requesting an extended office visit has pt has had at least 6 ED visit in a month. Unclear how long pt will be admitted so will send message to blue team nurses to follow up for appointments documented in this encounter Plan of Treatment Not on file documented as of this encounter Visit Diagnoses Not on filedocumented in this encounter Additional Health Concerns Assessment Noted Time PHQ-9 Depression Total Score: 3 01/22/20 25 10:47 AM EDT documented as of this encounter Care Teams Justowriter Operator Relationship Specialty Start Date End Date Cynthia Marshall NP [address] [place] [address] PCP - General Family Medicine 09/10/23 [facility] 01/01/25 documented as of this encounter
--- OUTSIDE RECORDS SUMMARY | 2025-04-06 18:21 | XMS_ITS | Encounter Summary ---
Author Organization [employer] Address [address] [facility] [address] [place] [address] Care Team Providers Care Survey Instrument Operator Name Role Phone Cynthia Marshall NP Primary Care Provider [phone] Reason for Visit * Reason Onset Date Comments FYI 02/06/2025 Encounter Details Date Type Department Care Team ([facility] st Contact Info) Description 02/06/2025 Telephone [facility] [address] [place], [place] [phone] Cynthia Marshall NP [address] [place], [place] [phone] FYI Social History Tobacco Use Types Packs/Day Years [...] * Telephone Encounter - Wilberto Mcgraw - 02/06/2025 1:16 PM EDT Tc from [place] with [facility] calling to report heart rate of 54, not symptomatic. documented in this encounter Plan of Treatment Not on file documented as of this encounter Visit Diagnoses Not on filedocumented in this encounter Additional Health Concerns Assessment Noted Time PHQ-9 Depression Total Score: 3 01/22/20 10:47 AM EDT documented as of this encounter Care Teams Survey Instrument Operator Relationship Specialty Start Date End Date Cynthia Marshall NP [address] [place] [address] PCP - General Family Medicine 09/10/23 [facility] 01/01/25 documented as of this encounter
--- OUTSIDE RECORDS SUMMARY | 2025-04-06 18:22 | XMS_ITS | Encounter Summary ---
Author Organization [employer] Address [address] [place] [address] Care Team Providers Care Coal Trimmer Machine Operator Name Role Phone Cynthia Marshall NP Primary Care Provider [phone] Encounter Details Date Type Department Care Team (Late st Contact Info) Description 12/31/2023 Orders Only [facility] [address] [place] [address] Corby Jacobs MD [address] [place] [address] Elevated blood uric acid level (Primary Dx) [...] documented as of this encounter Care Teams Coal Trimmer Machine Operator Relationship Specialty Start Date End Date Cynthia Marshall NP [address] [place] [address] PCP - General Family Medicine 09/10[facility] documented as of this encounter
--- OUTSIDE RECORDS SUMMARY | 2025-04-06 18:22 | XMS_ITS | Encounter Summary ---
Author Organization [employer] Address [address] [facility] [address] [place] [address] Care Team Providers Care Sports Manager Name Role Phone Cynthia Marshall NP Primary Care Provider [phone] Reason for Visit * Reason Onset Date Comments Call Back Request 03/31/2025 Encounter Details Date Type Department Care Team ([facility] st Contact Info) Description 03/31/2025 Telephone [facility] [address] [place], [place] [phone] Cynthia Marshall NP [address] [place] [address] Call Back Request Social History Tobacco Use Types Packs/Day Years [...] encounter Miscellaneous Notes * Telephone Encounter - Elizabeth Hwang RN - 04/03/2025 4:59 PM EDT Provider states to disregad message sent 04/03/25 at 4:39p * Telephone Encounter - Shoshana Chaudhary RN - 04/02/2025 5:03 PM EDT Tc to pt daughter to let them know per PCP Suggesting utilizing [facility]? Phone is [phone] they provide elder care services in [place]. I attempted to contact daughter with this information or to see if she has tried this option but it went to voicemail . Daughter reports they tried [facility] [place] [facility] some time ago, where a case was opened but it was closed because pt reports they were fine and did not need any services. Daughter reports they're overwhelmed and does not know what to do. Daughter reports they will be at work tomorrow but will tell the principal at the school that they will answer their phone if PCP call because this is important. Message sent to PCP for review. * Telephone Encounter - Radha Luna - 04/02/2025 2:54 PM EDT Tc from Daughter retuning call Contact pt Daughter at [phone] * Telephone Encounter - Cynthia Marshall NP - 04/02/2025 1:35 PM EDT Callled daughter * Telephone Encounter - Franchesca Timmons - 03/31/2025 3:27 PM EDT Tc from pt daughter requesting a call back from provider to discuss pts behavior , she states pt was in the hospital again and signed himself out again Contact pt daughter Esha at [phone] documented in this encounter Plan of Treatment Not on file documented as of this encounter Visit Diagnoses Not on filedocumented in this encounter Additional Health Concerns Assessment Noted Time PHQ-9 Depression Total Score: 3 01/22/20 25 10:47 AM EDT documented as of this encounter Care Teams Sports Manager Relationship Specialty Start Date End Date Cynthia Marshall NP [address] [place] [id number] PCP - General Family Medicine 09/10/23 [facility] 01/01/25 documented as of this encounter
--- OUTSIDE RECORDS SUMMARY | 2025-04-06 18:22 | XMS_ITS | Encounter Summary ---
Author Organization [employer] Address [address] [facility] [place] [address] Care Team Providers Care Problem Manager Name Role Phone Cynthia Marshall NP Primary Care Provider [phone] Encounter Details Date Type Department Care Team ([facility] st Contact Info) Description 04/11/2024 Orders Only [facility] [address] [place], [place] [phone] Cynthia Marshall NP [address] [place] [address] Stage 3b chronic kidney disease (CMS/HCC) Social [...] EST) Sodium 141 135 - 145 mmol/L [facility] Potassium 3.4 3.3 - 5.1 mmol/L [facility] Chloride 104 96 - 108 mmol/L [facility] Carbon Dioxide 28 22 - 29 mmol/L [facility] Anion Gap 12 12 - 20 [facility] Urea Nitrogen (BUN) 42(H) 9 - 16 mg/dL [facility] Creatinine, Serum 1.96(H) 0.5 - 1.4 mg/dL [facility] Estimated Glomerular Filt Rate 34 [facility] Comment:Chronic Kidney Disea se: Estimated GFR < 60 mL/min/[id number] Kidney Disease: Estimated GFR < 15 mL/min/1.73m2 Glucose 110 60 - 115 mg/dL [facility] Calcium 9.2 8.4 - 10.2 mg/dL [facility] Blood Venous blood specimen / Unknown 07/04/2024 12:13 PM EST 07/04/2024 12:13 PM EST us Cynthia Marshall SOFTWARE DESIGN MANAGER LAB BLOOD ORDERABLES Final Resul t [facility] [address] [place] [address] [phone] documented in this encounter Visit Diagnoses Diagnosis Stage 3b chronic kidney disease (CMS/HCC) documented in this encounter Additional Health Concerns Assessment Noted Time PHQ-9 Depression Total Score: 0 01/21/20 24 11:17 AM EDT documented as of this encounter Care Teams Problem Manager Relationship Specialty Start Date End Date Cynthia Marshall NP [address] [place] [address] PCP - General Family Medicine 09/10/23 [facility] 01/01/25 documented as of this encounter
--- OUTSIDE RECORDS SUMMARY | 2025-04-06 18:22 | XMS_ITS | Encounter Summary ---
Author Organization [employer] Address [address] [place] [address] Care Team Providers Care Muck Operator Name Role Phone Cynthia Marshall NP Primary Care Provider [phone] Reason for Visit * Reason Comments Med Refill Encounter Details Date Type Department Care Team (Late st Contact Info) Description 05/16/2024 Refill [facility] [address] [place] [address] Oly Guerrero FNP Social History Tobacco Use [...] documented as of this encounter Care Teams Muck Operator Relationship Specialty Start Date End Date Cynthia Marshall NP [address] [place] [address] PCP - General Family Medicine 09/10/23 [facility] 01/01/25 documented as of this encounter
--- OUTSIDE RECORDS SUMMARY | 2025-04-06 18:22 | XMS_ITS | Clinical Summary ---
Author Organization [employer] Address [address] [place] [address] [address] [place] [address] Care Team Providers Care Whipped Topping Finisher Name Role Phone Cynthia Marshall NP Primary Care Provider [phone] Allergies No known active allergies Medications FeroSul 325 (65 Fe) MG tablet TAKE 1 TABLET BY MOUTH EVERY OTHER DAY WITH ORANGE JUICE 90 tablet 3 3 Active fluticasone (Flonase) 50 MCG/ACT nasal sprayIndications: Nasal congestion INSTILL 1 SPRAY IN EACH NOSTRIL ONCE DAILY IN THE MORNING 16 g 4 Active Blood Glucose Monitoring Suppl ([place] Lite) w/Device kitIndications:Ty pe 2 diabetes mellitus with other specified complication, without long-term current use of insulin ([facility]) Use to test blood sugar bid dx dm 1 kit 4 Active glucose blood (OneTouch Ultra) test stripIndications: Type 2 diabetes mellitus with other specified complication, without long-term current use of insulin ([facility]) test blood sugar as needed, in the morning before breakfast 100 each 11 4 Active Lancets 33G miscIndications:T ype 2 diabetes mellitus with other specified complication, without long-term current use of insulin (CMS/HCC) 100 each 2 times daily. 60 each 11 4 Active Blood Pressure Monitoring (Omron 3 Series BP Monitor) device USE TO CHECK BLOOD PRESSURE DAILY 1 each 4 Active Diclofenac Sodium 1 % gelIndications:Ch ronic pain of left knee Apply thin layer by topical route (quantity as directed on package insert) to affected area of pain 3 times daily as needed. 50 g 3 4 Active GaviLAX 17 GM/SCOOP powder Take 17 g by mouth Once per day. 5 Active apixaban (Eliquis) 2.5 MG tabletIndications :Paroxysmal atrial fibrillation (CMS/HCC) Take 1 tablet (2.5 mg) by mouth 2 times daily. 180 tablet 1 5 Active lisinopril 40 MG tabletIndications :Essential hypertension TAKE 1 TABLET BY MOUTH EVERY MORNING 90 tablet 1 5 Active omeprazole (PriLOSEC) [address] capsule Take 1 capsule (40 mg) by mouth in the morning and 1 capsule (40 mg) in the evening. Do not crush or chew. 60 capsule 5 Active atorvastatin (Lipitor) 40 MG tablet Take 1 tablet (40 mg) by mouth Once per day. 90 tablet 2 5 Active calcitriol (Rocaltrol) 0.25 MCG capsule TAKE 1 CAPSULE BY MOUTH EVERY OTHER DAY 45 capsule 1 5 Active docusate sodium (Colace) 100 MG capsule Take 1 capsule (100 mg) by mouth if needed each day for constipation. TAKE 1 CAPSULE BY MOUTH EVERY DAY AT BEDTIME 90 capsule 5 Active furosemide (Lasix) 40 MG tablet Take 1 tablet (40 mg) by mouth Once per day. 90 tablet 5 Active carvedilol (Coreg) 6.25 MG tablet Take 1 tablet (6.25 mg) by mouth 2 times daily. 180 tablet 5 Active amLODIPine (Norvasc) 5 MG tablet Take 1 tablet (5 mg) by mouth Once per day. 90 tablet 5 Active Active Problems Problem Noted Date Diagnosed Date CHF exacerbation 04/06/2025 Assessment & Plan (04/06/2025 3:47 PM EDT): Clinical picture is not consistent with patient being taking his medications as prescribed, there is questionable adherence to his medication regiment, he may benefit from increase VNA services, walking test for O2 saturation and Mini- Mental test I referred this patient to the emergency room EMS was called Edema 03/10/2025 Dyspnea on exertion 03/04/2025 Lower extremity edema 03/04/2025 Hypokalemia 02/04/2025 Assessment & Plan (02/04/2025 2:12 PM EDT): BMP will be checked patient will be contacted with results Hypomagnesemia 02/04/2025 Assessment & Plan (02/04/2025 2:12 PM EDT): Magnesium level will be checked patient will be contacted with results Hyperparathyroidism 01/21/2025 CVA, old, cognitive deficits 01/21/2025 Overview (01/21/2025): Worsening dementia. Unable to manage meds independent Assessment & Plan (01/21/2025 10:38 AM EDT): Worsening dementia, Referral to case management, Med box, Molst completed at rehab scanned in chart, Reviewed elder services in [place] Continue home VNA, Rectal bleeding 01/21/2025 Gastrointestinal hemorrhage associated with chronic gastritis 01/21/2025 Assessment & Plan (01/21/2025 10:35 AM EDT): Continue omeprazole 40 mg bid Referral to GI Stable cbc repeat next week Pt denies bleeding KELSEY (acute kidney injury) 01/21/2025 Assessment & Plan (01/21/2025 10:40 AM EDT): Resume lasix, and lisinopril 40 mg per discharge Referral to renal Dementia with anxiety 12/04/2024 Assessment & Plan (12/04/2024 5:17 PM EDT): Referred for mini mental, Will order brain MRI, non acute change Open wound of skin 12/04/2024 Assessment & Plan (12/04/2024 5:16 PM EDT): Buttock wound, referral to wound care and home VNA Housing situation unstable 12/04/2024 Assessment & Plan (12/04/2024 5:17 PM EDT): Concerning pt is living alone at this time Product Safety Technician resources given to family [facility] Home VNA as quickly as possible Pt and children aware that pt may need readmission if unable to care for self at home Due to edema nad weakness, walker with seat ordered, commode ordered and shower rail ordered, [facility] looking into assisted living Encouraged med alert and at minimum twice daily checks on patient Colitis 12/03/2024 Assessment & Plan (12/04/2024 5:13 PM EDT): C. 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 CHF/? Pulmonary edema Patient noncompliant with medications, he will be taken to ED today by his son then he will follow-up with MTM program with PCP for adjustment of medications. Unclear if patient will be able to manage pillbox by himself, consider VNA administration Other hydronephrosis 07/15/2024 Osteoarthritis of left knee [...] CHF (congestive heart failur e), NYHA class II, acute on chronic, combined 12/05/2023 Overview (01/21/2025): 2D Echo (11/2024) showing mildly decreased LV systolic function with EF 52% and hypokinesis of the inferolateral wall and basal inferior segment; no vavular pathology. Assessment & Plan (01/27/2025 7:57 PM EDT): Seen recently at the ED with evidence of pulmonary edema but patient left AMA. Given the patient uncontrolled hypertension and current symptoms, he agreed to stay at the ED for additional workup and evaluation of ACS. He will be taken by his son to the ED and he will follow-up with PCP after discharge. Spoke with DMITRY Nagy at [facility] and they will be waiting for patient. Assessment & Plan (01/21/2025 10:34 AM EDT): Resume lasix 20 mg, Reviewed monitoring for uop Cmp ordered for next week Daily weights encouraged and reviewed with pt and daughter Assessment & Plan (01/24/2024 3:14 PM EDT): [...] Plan (10/08/2023 5:16 PM EST): Lesion right scientologist suspicious for AK, referral to derm Stage [...] 2020 Discharged on Lasix Assessment & Plan (02/04/2025 2:12 PM EDT): Advised to continue with same medications Lasix 40 mg daily, carvedilol 6.25 mg twice daily and lisinopril 40 mg daily, I advised to follow-up with cardiology as soon as possible, referral urgently in I also ordered an echocardiogram patient will be contacted with results Assessment & Plan (12/04/2024 5:10 PM EDT): Peripheral edema, elevate lower extremities, HRR, no crackles, Denies SOB, Referrals as listed below Assessment & Plan (12/08/2023 3:28 PM EDT): Reviewed importance of daily weights, Acute low back pain 06/30/2022 Anxiety 06/30/2022 Essential hypertension 06/30/2022 Assessment & Plan (01/21/2025 10:34 AM EDT): Above goal today, suspect pt has not been compliant with medications Re referred for med box Pharmacy into schedule visit for med box Take 20 mg lasix today. Referrals to cardiology and renal Assessment & Plan (01/24/2024 3:14 PM EDT): [...] Paroxysmal atrial fibrillation 06/30/2022 Assessment & Plan (01/21/2025 10:34 AM EDT): Continue eliquis 2.5 mg bid Assessment & Plan (12/04/2024 5:12 PM EDT): Continue eliquis (renal dosing) Med box referral stat son to go to pharmacy, med reconciliation difficult to complete as patient and children are uncertain of meds or doses or what rx is ready at pharmacy Home VNA for med management , and wound care Pharmacy team aware of case Assessment & Plan (10/08/2023 5:05 PM EST): [...] 2 diabetes mellitus 06/30/2022 Assessment & Plan (02/04/2025 2:12 PM EDT): Last A1c is 5 but not a good test in light he has anemia, I advised today to be adherent to diabetic diet Assessment & Plan (01/21/2025 10:35 AM EDT): Well managed currently no change Assessment & Plan (05/11/2024 11:55 AM EDT): [...] Encounters Date Type Department Care Team Description 04/06/2025 3:20 PM EDT Office Visit [facility] [address] [address] Blanca Mills MD Acute on chronic congestive heart failure, unspecified heart failure type ([facility]) (Primary Dx) 04/06/2025 Telephone [facility] [address] [address] Cynthia Marshall NP 04/06/2025 Travel 04/04/2025 Orders Only GENERIC EXTERNAL DATA DEPARTMENT Provider, Generic External Data 03/31/[address] [address] Cynthia Marshall NP Call Back Request 03/30/2025 Orders Only [facility] External Provider, [facility] 03/30/2025 Travel 03/25/2025 9:40 AM EDT Office Visit [address] [address] Corby Jacobs MD Hypoxia (Primary Dx) 03/25/[address] [address] Cynthia Marshall NP Call Back Request 03/25/2025 Orders Only GENERIC EXTERNAL DATA DEPARTMENT Provider, Generic External Data 03/25/2025 Travel 03/24/[address] [address] Cynthia Marshall NP Durable Medical Equipment 03/23/2025 Orders Only [facility] External Provider, [facility] 03/13/2025 9:30 AM EDT Clinical Support [address] [address] Shoshana Chaudhary, DMITRY CHF (congestive heart failure), NYHA class II, acute on chronic, combined ([facility]/HCC) [I50.43] 03/13/2025 Travel 03/10/2025 10:30 AM EDT Clinical Support [address] [address] Elizabeth Hwang RN Primary hypertension 03/10/[address] [address] Cynthia Marshall NP Durable Medical Equipment 03/10/2025 Travel 03/05/[address] [address] Cynthia Marshall NP Durable Medical Equipment 03/04/2025 10:15 AM EDT Office Visit [address] [address] Cynthia Marshall NP CHF (congestive heart failure), NYHA class II, acute on chronic, combined ([facility]/HCC) (Primary Dx); Essential hypertension; Paroxysmal atrial fibrillation ([facility]); Type 2 diabetes mellitus with other specified complication, without long-term current use of insulin ([facility]); Dyspnea on exertion; Lower extremity edema 03/04/[address] [address] Shoshana Chaudhary RN 03/04/2025 Travel 03/03/[address] [address] Kecia Phillips [place] CHARTPREP 02/26/[address] [address] Cynthia Marshall NP Need for echo 02/12/[address] [address] Cynthia Marshall NP Nurse Triage 02/10/[address] [address] Cynthia Marshall NP Nurse Triage 02/07/[address] [address] Cynthia Marshall NP 02/06/[address] [address] Cynthia Marshall NP FYI 02/05/[address] [address] Graef, Cynthia, CNC MECHANIC requesting call back 02/04/2025 10:45 AM EDT Office Visit [facility] [address] [place] [address] Blanca Mills MD Type 2 diabetes mellitus with stage 3a chronic kidney disease, without long-term current use of insulin ([facility]); Primary hypertension; Chronic systolic heart failure ([facility]); Hypokalemia; Hypomagnesemia 02/04/2025 Travel 02/04/2025 Refill [facility] [address] [place] [address] Rose Anderson, PharmD 02/03/[address] [address] Kecia Phillips [place] CHARTPREP 02/02/2025 Orders Only [facility] [address] [place] [address] Severino Santoro, PharmD 02/02/[address] [address] Cynthia Marshall NP Call Back Request 02/02/2025 Refill [facility] [address] [place] [address] Cynthia Marshall NP 01/30/[address] [address] Cynthia Marshall NP Verbal Order 01/26/2025 1:20 PM EDT Office Visit [facility] [address] [place] [address] Alena Myers MD Primary hypertension (Primary Dx); CHF (congestive heart failure), NYHA class II, acute on chronic, combined ([facility]) 01/26/2025 Telephone [facility] [address] [place] [address] Cynthia Marshall NP Nurse Triage 01/26/2025 [facility] [address] [place] [phone] Sebastián Ahn MD 01/26/2025 Travel 01/22/2025 Telephone [facility] [address] [place] [address] Cynthia Marshall NP fyi 01/21/2025 9:45 AM EDT Office Visit [facility] [address] [place] [address] Cynthia Marshall NP CHF (congestive heart failure), NYHA class I, chronic, combined ([facility]) (Primary Dx); Hyperparathyroidism ([facility]); CVA, old, cognitive deficits; Rectal bleeding; Gastrointestinal hemorrhage associated with chronic gastritis; Type 2 diabetes mellitus with stage 3a chronic kidney disease, without long-term current use of insulin ([facility]); Paroxysmal atrial fibrillation ([facility]); Essential hypertension; KELSEY (acute kidney injury) ([facility]) 01/21/2025 Travel 01/20/[address] [address] Cynthia Marshall NP Verbal Order 01/20/[address] [address] Cynthia Marshall NP FYI ; Call Back Reqeust 01/16/2025 11:00 AM EDT Office Visit [facility] [address] [place] [address] Sebastián Ahn MD Pedal edema (Primary Dx); Hypoalbuminemia; Mediastinal mass 01/16/2025 Orders Only GENERIC EXTERNAL DATA DEPARTMENT Provider, Generic External Data 01/16/2025 Travel 01/15/2025 Refill [facility] [address] [place] [address] Rose Anderson, PharmNaresh 01/15/[address] [address] Cynthia Marshall NP FYI 01/13/[address] [address] Cynthia Marshall NP Discharge summary (Request for Discharge summary) 01/12/[address] [address] Cynthia Marshall NP Returning Call 01/09/[address] [address] Rose Anderson, PharmNaresh 01/06/2025 Telephone [facility] [address] [place] [address] Cynthia Marshall, MARLENE Nurse Triage from Last 3 Months Immunizations Immunization Administration Dates Next Due Hep B, adult [...] Pulse 73 04/06/2025 3:10 PM EDT Temperature 36.8 C (98.2 F) 03/30/2025 9:57 AM EDT Respiratory Rate 26 04/06/2025 3:10 PM EDT Oxygen Saturation 99% 04/06/2025 3:11 PM EDT 6 L Inhaled Oxygen Concentration - - Weight 88 kg (194 lb) 03/13/2025 9:22 AM EDT Height 172.7 cm (5' 8 ) 03/13/2025 9:22 AM EDT Body Mass Index 29.5 03/13/2025 9:22 AM EDT Plan of Treatment Health Maintenance Due Date Last Done Comments CT Colonography 1950 Colonoscopy 1950 Colorectal Cancer Screening 1950 FIT DNA/Cologuard 1950 FIT 1950 FOBT 1950 Sigmoidoscopy 1950 Diabetes: Foot Exam 1962 Eye Exam 1962 Hepatitis C Screening 1970 RSV Patients and Patients Aged 60 years or older (1 - Risk 60-74 years 1-dose series) 2012 Hepatitis B Vaccines (3 of 3 - 19+ 3-dose series) 11/24/2022 06/28/2022, 05/26/2022 COVID-19 Vaccine ( season) 2024 07/11/2021, 01/28/2021, 12/31/2020 Influenza Vaccine (#1) 2025 , 08/01/2021, 06/09/2013, Additional history exists Alcohol/Substance Use Screening 04/18/2025 04/18/2024 Diabetes: Hemoglobin A1C 07/18/2025 025, 12/19/2024, 12/03/2024, Additional history exists Lipid Panel 01/16/2026 01/16/2025, 06/14, 07/11/2021 Depression Screening 01/21/2026 01/21/2025, 01/22/20 SDOH Screening 01/21/2026 01/21/2025 Tobacco Screening 03/25/2026 03/25/2025 DTaP/Tdap/Td Vaccines (3 - Td or Tdap) [...] BLOOD GAS Routine 04/04/2025 7:48 AM EDT XR CHEST 1 VIEW Routine 03/30/2025 10:07 AM EDT VENOUS BLOOD GAS Routine 03/25/2025 10:5 8 AM EDT XR CHEST 1 VIEW Routine 03/23/2025 1:42 PM EDT BASIC METABOLIC PANEL Routine 03/04/2025 11:18 AM EDT Hypokalemia MAGNESIUM Routine 03/04/2025 11:18 AM EDT Hypomagnesemia CBC WITH AUTO DIFFERENTIAL Routine 03/04/2025 11:18 AM EDT CHF (congestive heart failure), NYHA class I, chronic, combined (CMS/HCC) Gastrointestinal hemorrhage associated with chronic gastritis COMPREHENSIVE METABOLIC PANEL Routine 03/04/2025 11:18 AM EDT CHF (congestive heart failure), NYHA class I, chronic, combined (CMS/HCC) Gastrointestinal hemorrhage associated with chronic gastritis POCT GLUCOSE Routine 03/04/2025 10:43 AM EDT Type 2 diabetes mellitus with other specified complication, without long-term current use of insulin (CMS/[facility]) POCT GLUCOSE Routine 02/04/2025 10:29 AM EDT Type 2 diabetes mellitus with stage 3a chronic kidney disease, without long-term current use of insulin (CMS/HCC) ECG 12-LEAD Routine 01/28/2025 2:08 PM EDT Primary hypertension XR CHEST 2 VIEWS Routine 01/22/2025 5:38 PM EDT POCT GLUCOSE Routine 01/21/2025 9:57 AM EDT Type 2 diabetes mellitus with stage 3a chronic kidney disease, without long-term current use of insulin ([facility]) PTH, INTACT WITHOUT CALCIUM Routine 01/16/2025 11:31 AM EDT CBC WITH AUTO DIFFERENTIAL Routine 01/16/2025 11:31 AM EDT COMPREHENSIVE METABOLIC PANEL Routine 01/16/2025 11:31 AM EDT Renovascular hypertension HEMOGLOBIN A1C Routine 01/16/2025 11:31 AM EDT Type 2 diabetes mellitus with other specified complication, without long-term current use of insulin ([facility]) LIPID PANEL, STANDARD Routine 01/16/2025 11:31 AM EDT Type 2 diabetes mellitus with other specified complication, without long-term current use of insulin ([facility]) from Last 3 Months Results * (ABNORMAL) Urinalysis, Complete, with Reflex to Culture (04/04/2025 10:11 AM EDT) Color Urine Yellow [facility] Appearance Urine Clear [facility] PH 6.0 5.0 - 9.0 [facility] Glucose Urine UA Negative Negative mg/dL [facility] Urine Blood Negative Negative [facility] Specific [place] - Urine 1.015 1.005 - 1.025 [facility] Urine Protein 100 (2+)(A) Neg-Trace mg/dL [facility] Urine Ketones Negative Negative mg/dL [facility] Nitrite Urine Negative Negative [facility] Leukocyte Esterase Urine Trace(A) Negative [facility] RBC Urine 0-2 0 - 2 /HPF [facility] Urine WBC 0-5 0 - 5 /HPF [facility] Urine Squamous Epithelial Cell 0-2 0 - 2 /HPF [facility] Urine Bacteria None Seen None Seen [facility] Hyaline Casts, Urine 0-2 0 - 2 /LPF [facility] 04/04/2025 10:1 1 AM EDT 04/04/2025 10:16 AM EDT Narrative [facility] - 04/04/2025 10:24 AM EDT Urine, Clean Catch us Generic External Data Provider LAB URINE ORDERAB LES Final Result [facility] [address] [place] [phone] * XR Chest 2 Views (04/04/2025 9:51 AM EDT) Only the most recent of2 resultswithin the time period is included. Anatomical Region Laterality Modality Chest Radiographic Smitha ging 04/04/2025 9:51 AM EDT Narrative 04/04/2025 9:52 AM EDT [address] [address] XRay Report Signed Patient: Ethan Cristina MR#: [id number] 0 : 1950 Acct:[id number] Age/Sex: 74 / M ADM Date: 04/04/25 Loc: HO.ED Attending Dr: Ordering Physician: Ernestine Vazquez NP Date of Service: 04/04/25 Procedure(s): XR chest 2V Accession Number(s): [id number] cc: Ernestine Vazquez NP; Blanca Crowley MD CLINICAL HISTORY: sob Exam: PA and lateral views of the chest. Comparison: January 22, 2025. Findings: Interval increase in size of a moderate-sized right pleural effusion. There is a small left pleural effusion. There is obscuration of the inferior right heart border in the right hemidiaphragm due to the pleural effusion. Cardiac silhouette is [id number] enlarged. Central interstitial markings are diffusely prominent. Degenerative change of both shoulder joints. Impression: Congestive heart failure. This document has been electronically signed by: Ajith Muniz MD on 04/04/2025 09:51:59 Dictated By: Ajith Muniz MD Signed By: <Electronically signed by Ajith Muniz MD in OV> 04/04/2552 DD/ TD/TT: 04/04/25950 Organ Tuner Electronic: Procedure Note Donotuseinterpreter, Image - 04/04/[address] [address] XRay Report Signed Patient: Ethan CristinaMR#: [id number] 0 : 1950cct:[id number] Age/Sex: 74 / MADM Date: 04/04/25 Loc: HO.ED Attending Dr: Ordering Physician: Ernestine Vazquez NP Date of Service: 04/04/25 Procedure(s): XR chest 2V Accession Number(s): [id number] cc: Ernestine Vazquez NP; Blanca Crowley MD CLINICAL HISTORY: sob Exam: PA and lateral views of the chest. Comparison: January 22, 2025. Findings: Interval increase in size of a moderate-sized right pleural effusion. There is a small left pleural effusion. There is obscuration of the inferior right heart border in the right hemidiaphragm due to the pleural effusion. Cardiac silhouette is [id number] enlarged. Central interstitial markings are diffusely prominent. Degenerative change of both shoulder joints. Impression: Congestive heart failure. This document has been electronically signed by: Ajith Muniz MD on 04/04/2025 09:51:59 Dictated By: Ajith Muniz MD Signed By: <Electronically signed by Ajith Muniz MD in OV> 04/04/2552 DD/ 0 TD/TT: 04/04/25950 Organ Tuner Electronic: [facility] External Provider IMG XR PROCEDURES Edited Result - Final * SARS-CoV-2 RNA, Influenza A/B, and RSV RNA, Ql NAAT (04/04/2025 9:25 AM EDT) Influenza A PCR NEGATIVE Negative [facility] Influenza B PCR NEGATIVE Negative [facility] Resp Syncy Virus RNA Qual PCR NEGATIVE Negative [facility] SARS COV2 PCR NEGATIVE Negative [facility] Comment:All test results mus t be [...] use by authorized laboratories.Testing performed on the [employer] GeneXpert utilizingreal-time RT-PCR.All SARS CoV2 and positive influenza A/B results arereported to [facility]. 04/04/2025 9:25 AM EDT 04/04/2025 9:28 AM EDT us Generic External Data Provider LAB MICROBIOLOGY - GENERAL ORDERABLES Final Result [facility] [address] [place] [phone] * (ABNORMAL) VENOUS BLOOD GAS (04/04/2025 7:48 AM EDT) Only the most recent of2 resultswithin the time period is included. VBG pH 7.44(H) 7.32 - 7.43 [facility] Comment:METER #: [id number] additional_comment: MIREYA CEVALLOS VBG PCO2 40 mmHg [facility] Comment:METER #: [id number] additional_comment: MIREYA CEVALLOS VBG PO2 39 mmHg [facility] [facility] Comment:METER #: [id number] additional_comment: MIREYA HUNTG Base Excess 3.3 mmol/L [facility] Comment:METER #: [id number] additional_comment: MIREYA HUNTG HCO3 27(H) 22 - 26 mmol/L [facility] Comment:METER #: [id number] additional_comment: MIREYA AGUILARELIAS O2 Sat, Kota 51.0 % [facility] Comment:METER #: [id number] additional_comment: MIREYA SHEIKHGAMALIELMonica 04/04/2025 7:48 AM EDT 04/04/2025 7:52 AM EDT us Generic External Data Provider LAB BLOOD ORDERAB LES Final Result Performing Organization Address City/State/[facility] Co de Phone Number [facility] [address] [place] [phone] * XR Chest 1 View (03/30/2025 10:07 AM EDT) Only the most recent of2 resultswithin the time period is included. Anatomical Region Laterality Modality Chest Radiographic Smitha ging 03/30/2025 10:0 7 AM EDT Narrative 03/30/2025 11:26 AM EDT [address] [address] XRay Report Signed Patient: Ethan Cristina MR#: [id number] 0 : 1950 Acct:[id number] Age/Sex: 74 / M ADM Date: 03/30/25 Loc: HO.ED Attending Dr: Ordering Physician: Eduardo Pillai MD Date of Service: 03/30/25 Procedure(s): XR chest 1V Accession Number(s): [id number] cc: Eduardo Pillai MD; Blanca Crowley MD EXAMINATION: XR CHEST CLINICAL INFORMATION: dyspnea on exertion COMPARISON: 03/25/2025, 03/23/2025. TECHNIQUE: Frontal view of the chest was obtained. FINDINGS: There is mild cardiomegaly. Mediastinal and hilar contours appear stable and normal. Mild aortic mural calcification. There is a small to moderate-sized layering right effusion without significant change. Lungs otherwise clear. No left effusion. No pneumothorax. No focal osseous or soft tissue abnormality. There are degenerative changes in both shoulder joints and throughout the spine. XR/XR chest 1V IMPRESSION: 1. Stable cardiac enlargement. 2. Similar small to moderate-sized layering right effusion. Electronically signed by: Jack Shah MD 03/30/2025 11:23 AM EDT Dictated By: Jack Shah MD Signed By: <Electronically signed by Jack Shah MD in OV> 03/30/25 1123 DD/ 1007 TD/TT: 03/30/25 1115 Organ Tuner Electronic: Procedure Note Donotuseinterpreter, Image - 03/30/[address] [address] XRay Report Signed Patient: Ethan CristinaMR#: [id number] 0 : 1950cct:[id number] Age/Sex: 74 / MADM Date: 03/30/25 Loc: HO.ED Attending Dr: Ordering Physician: Eduardo Pillai MD Date of Service: 03/30/25 Procedure(s): XR chest 1V Accession Number(s): [id number] cc: Eduardo Pillai MD; Blanca Crowley MD EXAMINATION: XR CHEST CLINICAL INFORMATION: dyspnea on exertion COMPARISON: 03/25/2025, 03/23/2025. TECHNIQUE: Frontal view of the chest was obtained. FINDINGS: There is mild cardiomegaly. Mediastinal and hilar contours appear stable and normal. Mild aortic mural calcification. There is a small to moderate-sized layering right effusion without significant change. Lungs otherwise clear. No left effusion. No pneumothorax. No focal osseous or soft tissue abnormality. There are degenerative changes in both shoulder joints and throughout the spine. XR/XR chest 1V IMPRESSION: 1. Stable cardiac enlargement. 2. Similar small to moderate-sized layering right effusion. Electronically signed by: Jack Shah MD 03/30/2025 11:23 AM EDT Dictated By: Jack Shah MD Signed By: <Electronically signed by Jack Shah MD in OV> 03/30/25 1123 DD/ 1007 TD/TT: 03/30/25 1115 Organ Tuner Electronic: [facility] External Provider IMG XR PROCEDURES Final Result * (ABNORMAL) CBC auto differential (03/04/2025 11:18 AM EDT) Only the most recent of2 resultswithin the time period is included. White Blood Count 6.7 4.8 - 10.8 X10*3/uL [facility] Red Blood Count 3.65(L) 4.60 - 5.80 X10*6/uL [facility] Hemoglobin 9.9(L) 14.0 - 18.0 g/dl [facility] Hematocrit 32.8(L) 42.0 - 52.0 % [facility] Mean Corpuscular Volume 89.9 80.0 - 98.0 fL [facility] Mean Corpuscular Hemoglobin 27.1 27.0 - 33.0 pg [facility] Mean Corpuscular HGB Conc 30.2(L) 31.0 - 36.0 g/dl [facility] Red Cell Distribution Width 17.2(H) 11.0 - 16.0 % [facility] Platelet Count 249 160 - 400 X10*3/uL [facility] Mean Platelet Volume 9.8 9.4 - 12.4 fL [facility] Neutrophils Percent Auto 81.3(H) 45 - 73 % [facility] Imm Gran Pct Auto 0.3 0.0 - 0.4 % [facility] Lymphocytes Percent Auto 12.7(L) 20 - 40 % [facility] Monocytes Percent Auto 4.8 2 - 11 % [facility] Eosinophils Percent Auto 0.6 0 - 4 % [facility] Basophils Percent Auto 0.3 0 - 2 % [facility] NRBC Pct Auto 0.0 0.0 - 0.2 /100WBC [facility] Neutrophils Absolute Auto 5.4 2.0 - 8.3 x10*3/uL [facility] Imm Gran Abs Auto 0.02 0.00 - 0.03 X10*3/uL [facility] Lymphocytes Absolute Auto 0.9(L) 1.2 - 4.9 X10*3/uL [facility] Monocytes Absolute Auto 0.3 0.1 - 1.2 X10*3/uL [facility] Eosinophils Absolute Auto 0.0 0.0 - 0.4 X10*3/uL [facility] Basophils Absolute Auto 0.0 0.0 - 0.2 X10*3/uL [facility] NRBC Abs Auto 0.000 0.0 - 0.012 X10*3/uL [facility] Blood Venous blood specimen / Unknown 03/04/2025 11:18 AM EDT 03/04/2025 1:09 PM EDT us Cynthia Marshall NP LAB BLOOD ORDERABLES Final Resul t Performing Organization Address [facility] Co de Phone Number [facility] [address] [place] [phone] * Magnesium (03/04/2025 11:18 AM EDT) [facility] Magnesium 1.6 1.6 - 2.6 mg/dL [facility] Blood Venous blood specimen / Unknown 03/04/2025 11:18 AM EDT 03/04/2025 1:09 PM EDT us Blanca Lujan MD LAB BLOOD ORDERABLES Final Result Performing Organization Address [facility] Phone Number [facility] [address] [place] [phone] * (ABNORMAL) Comprehensive Metabolic Panel (03/04/2025 11:18 AM EDT) Only the most recent of2 resultswithin the time period is included. [facility] Sodium 140 135 - 145 mmol/L [facility] Potassium 4.3 3.3 - 5.1 mmol/L [facility] Chloride 108 96 - 108 mmol/L [facility] Carbon Dioxide 26 22 - 29 mmol/L [facility] Anion Gap 10(L) 12 - 20 [facility] Urea Nitrogen (BUN) 33(H) 9 - 16 mg/dL [facility] Creatinine, Serum 1.93(H) 0.5 - 1.4 mg/dL [facility] Estimated Glomerular Filt Rate 34 [facility] Comment:Chronic Kidney Disea se: Estimated GFR < 60 mL/min/1.55e5Tpyhtw Kidney Disease: Estimated GFR < 15 mL/min/1.73m2 Glucose 149(H) 60 - 115 mg/dL [facility] Calcium 8.9 8.4 - 10.2 mg/dL [facility] Bilirubin, Total 1.3(H) 0.0 - 1.0 mg/dL [facility] Aspartate Amino Transferase 29 5 - 37 U/L [facility] Alanine Aminotransferase 20 0 - 40 U/L [facility] Total Protein 7.2 6.5 - 8.0 g/dL [facility] Albumin Level 3.3(L) 3.5 - 5.0 g/dL [facility] Alkaline Phosphatase 219(H) 39 - 117 U/L [facility] Blood Venous blood specimen / Unknown 03/04/2025 11:18 AM EDT 03/04/2025 1:09 PM EDT us Cynthia Marshall NP LAB BLOOD ORDERABLES Final Resul t [facility] [address] [place] [phone] * (ABNORMAL) Basic Metabolic Panel (03/04/2025 11:18 AM EDT) Sodium 140 135 - 145 mmol/L [facility] Potassium 4.5 3.3 - 5.1 mmol/L [facility] Chloride 108 96 - 108 mmol/L [facility] Carbon Dioxide 26 22 - 29 mmol/L [facility] Anion Gap 11(L) 12 - 20 [facility] Urea Nitrogen (BUN) 33(H) 9 - 16 mg/dL [facility] Creatinine, Serum 1.91(H) 0.5 - 1.4 mg/dL [facility] Estimated Glomerular Filt Rate 35 [facility] Comment:Chronic Kidney Disea se: Estimated GFR < 60 mL/min/1.42v3Pwwdzi Kidney Disease: Estimated GFR < 15 mL/min/1.73m2 Glucose 152(H) 60 - 115 mg/dL [facility] Calcium 9.0 8.4 - 10.2 mg/dL [facility] Blood Venous blood specimen / Unknown 03/04/2025 11:18 AM EDT 03/04/2025 1:09 PM EDT us Blanac Lujan MD LAB BLOOD ORDERABLES Final Result Performing Organization Address City/[facility]/ZIP Co de Phone Number [facility] [address] [place] [phone] * POCT Glucose (03/04/2025 10:43 AM EDT) Only the most recent of3 resultswithin the time period is included. Glucose Blood, POC 163 60 - 200 mg/dL QC Media Lot # [id number] Lot# Expiration Date Blood Capillary blood specimen / Unknown 03/04/2025 10:43 AM EDT us Cynthia Marshall NP POINT OF CARE TEST ENTER/EDIT OR DERABLES Final Result * ECG 12 lead (01/28/2025 2:08 PM EDT) Narrative Alena Myers MD - 01/28/2025 2:08 PM EDT A.fib at approx 72bpm ventricular response. Occasional PVC. Unspecific repolarization abn us Alena Myers MD ECG ORDERABLES Final Re sult * (ABNORMAL) PTH, Intact Without Calcium (01/16/2025 11:31 AM EDT) Parathyroid Hormone, Intact 251.2(H) 8.7 - 77.1 pg/mL [facility] 01/16/2025 11:3 1 AM EDT 01/16/2025 1:21 PM EDT us Generic External Data Provider LAB BLOOD ORDERAB LES Final Result Performing Organization Address City/[facility]/ZIP Co de Phone Number [facility] [address] [place] [phone] * Hemoglobin A1c (01/16/2025 11:31 AM EDT) Hemoglobin A1c 5.0 <6.0 % [facility] Comment:Hemoglobin A1C Refer ence Range Adults: 4.8 - 6.0 % Non diabetic: < 6.0 % Goal: < 7.0 %Additional Action Suggested: > 8.0 %Note: Hemoglobin A1c results are invalid for patients with abnormal amounts of HbF. Blood transfusions may impact the HbA1c concentration in the patient sample. Estimated Average Glucose 97 mg/dL [facility] Comment:eAG = Estimated ave rage glucose which is %A1C expressed asaverage glucose, using the formula of the U0D-CestfunXvvbcrv Glucose study (ADAG), Diabetes Care, Vol.31,#8,Mar. 2007 Blood Venous blood specimen / Unknown 01/16/2025 11:31 AM EDT 01/16/2025 1:21 PM EDT us Sheila Rockwell MD LAB BLOOD ORDERABLES Final Res ult Performing Organization Address [facility] Co de Phone Number [facility] [address] [place] [phone] * (ABNORMAL) Lipid Panel, Standard (01/16/2025 11:31 AM EDT) Triglycerides 69 <150 mg/dL [facility] Comment:Desirable Triglyceri de: less than 150 mg/dLBorderline High Triglyceride 150-199 mg/dLHigh Triglyceride: 200-499 mg/dLVery High Triglyceride: greater than or equal to 5OO mg/dL Cholesterol 129 <200 mg/dL [facility] Comment:Desirable Cholestero l: less than 200 mg/dLBorderline High Cholesterol: 200-239 mg/dLHigh Cholesterol: greater than 239 mg/dL LDL Cholesterol Calculated 78 <100 mg/dL [facility] Comment:Desirable LDL: less than 100 mg/dLNear Optimal/Above Optimal LDL: 110- 129 mg/dLBorderline High LDL: 130-159 mg/dLHigh LDL: 160-189 mg/dLVery High LDL: greater than or equal to 190 mg/dL HDL Cholesterol 38(L) >40 mg/dL [facility] Comment:Desirable HDL: great er than 40 mg/dL Note: This HDL assay may give artificially low results in patients with liver disease. Blood Venous blood specimen / Unknown 01/16/2025 11:31 AM EDT 01/16/2025 1:21 PM EDT us Sheila Rockwell MD LAB BLOOD ORDERABLES Final Res ult [facility] [address] [place] [phone] from Last 3 Months Insurance [facility] DUAL [employer] [facility] ST[facility] Advance Directives Documents on File Type Date Recorded Patient Client Development Consultant Expl anation Advance Directives and Livin g Will 01/21/2025 12:01 PM [facility] Care Teams Whipped Topping Finisher Relationship Specialty Start Date End Date Cynthia Marshall NP [address] [place] [phone] PCP - General Family Medicine 09/10/23 [facility] 01/01/25
--- OUTSIDE RECORDS SUMMARY | 2025-04-06 18:22 | XMS_ITS | Encounter Summary ---
Author Organization [employer] Address [address] [place] [address] Care Team Providers Care Scrub Woman Name Role Phone Cynthia Marshall NP Primary Care Provider [phone] Encounter Details Date Type Department Care Team ([facility] st Contact Info) Description 07/04/2024 Orders Only [facility] [address], [place] [phone] Cynthia Marshall NP [address] [place] [address] Stage 3b chronic kidney disease (CMS/HCC) Social [...] AM EST Narrative 08/08/2024 10:06 AM EST [place] [id number] Nuclear Medicine Report Signed Patient: Ethan Cristina MR#: [id number] 0 : 1950 Acct:[id number] Age/Sex: 73 / M ADM Date: 07/31/24 Loc: [facility] Attending Dr: Kong Duarte MD Ordering Physician: Kong Duarte MD Date of Service: 07/31/24 Procedure(s): NM renal flow w pharm int Accession Number(s): [id number] cc: Kong Duarte MD; Cynthia Marshall NP [...] by: Janice Pate MD 08/08/2024 10:03 AM [facility] Dictated By: Janice Pate Signed By: <Electronically signed by Janice Pate in OV> 08/08/24 1003 DD/ 1058 TD/TT: 07/31/[address] Magistrate: Procedure Note Donotuseinterpreter, Image - 08/08/2024 [place] [address] Nuclear Medicine Report Signed Patient: Ethan Cristina#: [id number] 0 : 3Acct:[id number] Age/Sex: 73 / MADM Date: 07/31/24 Loc: [facility] Attending Dr: Kong Duarte MD Ordering Physician: Kong Duarte MD Date of Service: 07/31/24 Procedure(s): NM renal flow w pharm int Accession Number(s): [id number] cc: Kong Duarte MD; Cynthia Marshall NP [...] by: Janice Pate MD 08/08/2024 10:03 AM [facility] Dictated By: Janice Pate Signed By: <Electronically signed by Janice Pate in OV> 08/08/24 1003 DD/ 1058 TD/TT: 07/31/[address] Magistrate: [facility] External Provider IMG NM PROCEDURES Final Result documented in this encounter Visit Diagnoses Diagnosis Stage 3b chronic kidney disease (CMS/HCC) documented in this encounter Additional Health Concerns Assessment Noted Time PHQ-9 Depression Total Score: 0 01/21/20 24 11:17 AM EDT documented as of this encounter Care Teams Scrub Woman Relationship Specialty Start Date End Date Cynthia Marshall NP [address] [place] [address] PCP - General Family Medicine 09/10/23 [facility] 01/01/25 documented as of this encounter
[2025-04-06 18:23] VITALS: BP 142/78
[2025-04-06] MEDS: Furosemide 100 MG/10 ML VIAL 60 MG IVPUSH (18:23)
[2025-04-06 18:26] VITALS: BP 141/71; PULSE 67; RESP 17; TEMP 36.5; O2SAT 96
--- NOTE | 2025-04-06 19:24 | PC.NURSE ---
Addendum entered by Lacie Marshall RN 04/06/25 20:38: pt removed all monitoring devices, Provider Jones came down and spoke with pt regarding risks of leaving ama, pt still wants to leave despite expressed concerns. IV removed, catheter intact, dry clean dressing applied and bleeding controlled. Addendum entered by Lacie Marshall RN 04/06/25 20:16: pt refusing transport to inpatient room, requesting to go home. Hospitalist aware and coming to speak with pt. Original Note: assumed care for this pt at 1900. pt alert and oriented awake in stretcher in no notable distress. pt requesting to go home, stating he does not want to stay here. attempted to educate the importance of admission but pt states he feels fine to go home.
[2025-04-06 20:36] VITALS: BP 165/63; PULSE 77; RESP 22; O2SAT 89
--- NOTE | 2025-04-07 03:44 | P.DS_ITS ---
DS: Providers Provider Date of Service: 04/06/25 Date of admission: 04/06/25 17:54 Date of discharge: 04/06/25 Primary care physician: Unknown Physician Consults: 04/06/25 17:37 Consult to Cardiology Routine Consulting Provider: [facility] Reason for consultation: CHF Consult to Nephrology Routine Consulting Provider: [facility] Reason for consultation: CHF, kelsey DS: Diagnosis Discharge Diagnosis (1) Congestive heart failure: Status: Acute DS: Summary Hospital Course Hospital Course: H&P on admission: 74-year-old man with a history of congestive heart failure presented to the ER with complaints of continued bilateral lower extremity swelling extending all the way to to the genital region with shortness of breath. Patient has been admitted multiple times and leaves against medical advice. He was discharged on April 04 of this year. He has had multiple psychiatric evaluations which determined that he does have capacity to make his own medical decisions. He does appear to be fluid overloaded with lower extremity edema, BNP 1481, creatinine elevated at 3.10, stable blood pressure. Patient was treated with IV Lasix in the ER. Plan will be to admit patient for further management and treatment of acute on chronic congestive heart failure. hospital course: Pt was admission from acute CHF exacerbation with KELSEY on CKD, he received 80mg IV lasix followed by 60mg in the ED with good urine output. the pt then refused admission after admission discussed with pt and he left AMA. risks of leaving AMA were discussed with the pt including respiratory failure, kidney failure, which can be fatal. the pt is aware and still chose to leave AMA and stated he will f/u with his PCP this week. he has had multiple evaluations and in the past for capacity without deeming the pt incapacitated. Status at Discharge Functional status at discharge: independent ambulation Overall status at discharge: patient is not back to baseline Time Attestation Discharge Coordination Time (in mins): >30 mins Quality: Safe Use of Opioids Does Pt have an Active Cancer Diagnosis on the Problem List?: No Quality: Stroke Does the patient have a stroke diagnosis?: No Physical Exam Exam: Exam: left AMA, did not allow for repeat physical exam. exam on admission: Appearing in no acute distress head is normocephalic atraumatic eyes pupils are PERRLA sclera is anicteric mouth throat mucous membranes are intact and moist neck is supple no lymphadenopathy, no JVD noted lung sounds rales heart regular rate rhythm, clear S1, S2 positive bowel sounds, abdomen is soft, nontender neuro patient is alert x3, no focal deficits +2 LE edema with mild weeping Vital Signs: Vital Signs: Last Vital Signs Temp 97.7 F 04/06/25 18:26 Pulse 77 04/06/25 20:36 Resp 22 H 04/06/25 20:36 BP 165/63 H 04/06/25 20:36 Pulse Ox 89 L 04/06/25 20:36 O2 Del Method Room Air 04/06/25 20:36 O2 Flow Rate 2 04/06/25 18:26 Oxygen Flow Rate 2 04/06/25 15:54 BMI result Body Mass Index 31.9 DS: Data Data Completed and Pending Completed studies during hospitalization [Text1]: Procedures Dilation of Cystic Duct with Intraluminal Device, Via Natural or Artificial Opening Endoscopic (11/12/24) Drainage of Peritoneal Cavity with Drainage Device, Percutaneous Approach (11/12/24) Drainage of Peritoneal Cavity, Percutaneous Approach (11/12/24) Drainage of Right Pleural Cavity, Percutaneous Approach (12/04/24) Excision of Duodenum, Via Natural or Artificial Opening Endoscopic, Diagnostic ( 12/19/22) Excision of Esophagogastric Junction, Via Natural or Artificial Opening Endoscopic, Diagnostic (12/19/22) Excision of Stomach, Pylorus, Via Natural or Artificial Opening Endoscopic, Diagnostic (12/04/24) Inspection of Upper Intestinal Tract, Via Natural or Artificial Opening Endoscopic (11/12/24) Resection of Gallbladder, Percutaneous Endoscopic Approach (10/20/24) Transfusion of Nonautologous Red Blood Cells into Peripheral Vein, Percutaneous Approach (12/04/24) Labs on day of discharge: Laboratory Results - last 24 hr 04/06/25 16:30 WBC 5.2 RBC 3.12 L Hgb 8.0 L Hct 27.2 L MCV 87.2 MCH 25.6 L MCHC 29.4 L RDW 17.4 H Plt Count 193 MPV 9.4 Immature Gran % (Auto) 0.4 Neut % (Auto) 74.3 H Lymph % (Auto) 14.8 L Labette % (Auto) 8.4 Eos % (Auto) 1.9 Baso % (Auto) 0.2 Lymph # (Auto) 0.8 L [place]ette # (Auto) 0.4 Eos # (Auto) 0.1 Baso # (Auto) 0.0 Abs Immat Gran (auto) 0.02 Absolute Neuts (auto) 3.9 Absolute Nucleated RBC 0.000 Nucleated RBC % (auto) 0.0 Sodium 138 Potassium 4.5 Chloride 103 Carbon Dioxide 26 Anion Gap 14 BUN 61 H Creatinine 3.10 H Estim Creat Clear Calc 24.1 Estimated GFR 20 Random Glucose 118 H Calcium 8.5 Total Bilirubin 0.8 Direct Bilirubin 0.4 AST 30 ALT 17 Alkaline Phosphatase 154 H Troponin I High Sens 28.7 B-Natriuretic Peptide 1481 H Total Protein 6.8 Albumin 3.2 L COVID-19 ([facility]) Negative COVID-19 Clin Com See Note Discharge Plan Discharge Anticipated Discharge Date/Time: 04/06/25 21:30 Patient Disposition: Left Against Medical Advice Discharge Diagnosis: Acute Respiratory failure with hypoxia due to acute exacerbation of HFpEF, KELSEY on CKD3, anasarca, R pleural effusion Referrals: Physician,Unknown J [Primary Care Provider, Medical] - 1 Week Discharge Medications: Continued (DME) blood sugar diagnostic Strip See Rx Instructions .ROUTE BID Qty: 50 11RF Rx Instructions: Use 1 test strip once a day atorvastatin 40 mg tablet 40 mg PO DAILY Eliquis 2.5 mg tablet 2.5 mg PO BID omeprazole 40 mg Capsule,Delayed Release(Dr/Ec) 40 mg PO BID@0630,1630 Qty: 60 0RF furosemide 40 mg tablet 40 mg PO DAILY ferrous sulfate 325 mg (65 mg iron) tablet 325 mg PO BID calcitriol 0.25 mcg capsule 0.25 mcg PO Q48H lisinopril 40 mg tablet 40 mg PO DAILY amlodipine 5 mg Tablet 5 mg PO DAILY Qty: 60 0RF Protocol: Hold for SBP< HOLD for SBP < : 90 carvedilol 6.25 mg Tablet 6.25 mg PO BID Qty: 60 0RF Protocol: Hold for SBP/HR < HOLD for SBP < : 90 HOLD for HR < : 60 (DME) blood-glucose meter Misc See Rx Instructions PO BID Qty: 1 Rx Instructions: As directed (DME) lancets Misc See Rx Instructions .ROUTE BID Qty: 100 Rx Instructions: As directed Discharge Orders: Discharge Order (Routine); Ordered 04/06/25 Ordered By: Venus Goldman Stand Alone Forms: Against Medical Advice Print Language: [place]ican Care Plan Goals: recover from acute CHF exacerbation and KELSEY Health Concerns: pt left AMA, concern for incomplete treatment and evaluation of acute CHF exacerbation and KELSEY Plan of Treatment: pt left AMA. states he will f/u with PCP this week Assessment: see above Discharge Date/Time: 04/06/25 23:30
--- NOTE | 2025-04-07 07:17 | PM.DS ---
DS: Providers Provider Date of Service: 04/07/25 Date of admission: 04/06/25 17:54 Date of discharge: 04/07/25 Primary care physician: Unknown Physician Consults: 04/06/25 17:37 Consult to Cardiology Routine Consulting Provider: [facility] Reason for consultation: CHF Consult to Nephrology Routine Consulting Provider: [facility] Reason for consultation: CHF, kelsey DS: Diagnosis Discharge Diagnosis (1) Congestive heart failure: Status: Acute DS: Summary Hospital Course Hospital Course: H&P on admission: 74-year-old man with a history of congestive heart failure presented to the ER with complaints of continued bilateral lower extremity swelling extending all the way to to the genital region with shortness of breath. Patient has been admitted multiple times and leaves against medical advice. He was discharged on April 04 of this year. He has had multiple psychiatric evaluations which determined that he does have capacity to make his own medical decisions. He does appear to be fluid overloaded with lower extremity edema, BNP 1481, creatinine elevated at 3.10, stable blood pressure. Patient was treated with IV Lasix in the ER. Plan will be to admit patient for further management and treatment of acute on chronic congestive heart failure. hospital course: Pt was admission from acute CHF exacerbation with KELSEY on CKD, he received 80mg IV lasix followed by 60mg in the ED with good urine output. the pt then refused admission after admission discussed with pt and he left AMA. risks of leaving AMA were discussed with the pt including respiratory failure, kidney failure, which can be fatal. the pt is aware and still chose to leave AMA and stated he will f/u with his PCP this week. he has had multiple evaluations and in the past for capacity without deeming the pt incapacitated. Physical Exam Vital Signs: Vital Signs: Last Vital Signs Temp 97.7 F 04/06/25 18:26 Pulse 77 04/06/25 20:36 Resp 22 H 04/06/25 20:36 BP 165/63 H 04/06/25 20:36 Pulse Ox 89 L 04/06/25 20:36 O2 Del Method Room Air 04/06/25 20:36 O2 Flow Rate 2 04/06/25 18:26 Oxygen Flow Rate 2 04/06/25 15:54 BMI result Body Mass Index 31.9 DS: Data Data Completed and Pending Completed studies during hospitalization [Text1]: Procedures Dilation of Cystic Duct with Intraluminal Device, Via Natural or Artificial Opening Endoscopic (11/12/24) Drainage of Peritoneal Cavity with Drainage Device, Percutaneous Approach (11/12/24) Drainage of Peritoneal Cavity, Percutaneous Approach (11/12/24) Drainage of Right Pleural Cavity, Percutaneous Approach (12/04/24) Excision of Duodenum, Via Natural or Artificial Opening Endoscopic, Diagnostic (12/19/22) Excision of Esophagogastric Junction, Via Natural or Artificial Opening Endoscopic, Diagnostic (12/19/22) Excision of Stomach, Pylorus, Via Natural or Artificial Opening Endoscopic, Diagnostic (12/04/24) Inspection of Upper Intestinal Tract, Via Natural or Artificial Opening Endoscopic (11/12/24) Resection of Gallbladder, Percutaneous Endoscopic Approach (10/20/24) Transfusion of Nonautologous Red Blood Cells into Peripheral Vein, Percutaneous Approach (12/04/24) Labs on day of discharge: Laboratory Results - last 24 hr 04/06/25 16:30 WBC 5.2 RBC 3.12 L Hgb 8.0 L Hct 27.2 L MCV 87.2 MCH 25.6 L MCHC 29.4 L RDW 17.4 H Plt Count 193 MPV 9.4 Immature Gran % (Auto) 0.4 Neut % (Auto) 74.3 H Lymph % (Auto) 14.8 L Antelope % (Auto) 8.4 Eos % (Auto) 1.9 Baso % (Auto) 0.2 Lymph # (Auto) 0.8 L Antelope # (Auto) 0.4 Eos # (Auto) 0.1 Baso # (Auto) 0.0 Abs Immat Gran (auto) 0.02 Absolute Neuts (auto) 3.9 Absolute Nucleated RBC 0.000 Nucleated RBC % (auto) 0.0 Sodium 138 Potassium 4.5 Chloride 103 Carbon Dioxide 26 Anion Gap 14 BUN 61 H Creatinine 3.10 H Estim Creat Clear Calc 24.1 Estimated GFR 20 Random Glucose 118 H Calcium 8.5 Total Bilirubin 0.8 Direct Bilirubin 0.4 AST 30 ALT 17 Alkaline Phosphatase 154 H Troponin I High Sens 28.7 B-Natriuretic Peptide 1481 H Total Protein 6.8 Albumin 3.2 L COVID-19 ([facility]) Negative COVID-19 Clin Com See Note Discharge Plan Discharge Anticipated Discharge Date/Time: 04/06/25 21:30 Patient Disposition: Left Against Medical Advice Discharge Diagnosis: Acute Respiratory failure with hypoxia due to acute exacerbation of HFpEF, KELSEY on CKD3, anasarca, R pleural effusion Referrals: Physician,Unknown J [Primary Care Provider, Medical] - 1 Week Discharge Medications: Continued (DME) blood sugar diagnostic Strip See Rx Instructions .ROUTE BID Qty: 50 11RF Rx Instructions: Use 1 test strip once a day atorvastatin 40 mg tablet 40 mg PO DAILY Eliquis 2.5 mg tablet 2.5 mg PO BID omeprazole 40 mg Capsule,Delayed Release(Dr/Ec) 40 mg PO BID@0630,1630 Qty: 60 0RF furosemide 40 mg tablet 40 mg PO DAILY ferrous sulfate 325 mg (65 mg iron) tablet 325 mg PO BID calcitriol 0.25 mcg capsule 0.25 mcg PO Q48H lisinopril 40 mg tablet 40 mg PO DAILY amlodipine 5 mg Tablet 5 mg PO DAILY Qty: 60 0RF Protocol: Hold for SBP< HOLD for SBP < : 90 carvedilol 6.25 mg Tablet 6.25 mg PO BID Qty: 60 0RF Protocol: Hold for SBP/HR < HOLD for SBP < : 90 HOLD for HR < : 60 (DME) blood-glucose meter Misc See Rx Instructions PO BID Qty: 1 Rx Instructions: As directed (DME) lancets Misc See Rx Instructions .ROUTE BID Qty: 100 Rx Instructions: As directed Discharge Orders: Discharge Order (Routine); Ordered 04/06/25 Ordered By: Venus Goldman Stand Alone Forms: Against Medical Advice Print Language: Tajik Care Plan Goals: recover from acute CHF exacerbation and KELSEY Health Concerns: pt left AMA, concern for incomplete treatment and evaluation of acute CHF exacerbation and KELSEY Plan of Treatment: pt left AMA. states he will f/u with PCP this week Assessment: see above Discharge Date/Time: 04/06/25 23:30
== END 2025-04-06 23:30 | disposition left against medical advice (07) | DRG 291 ==
LOC: HO.ED 17:54 → HO.EDOVER 17:58 → HO.IMC 19:46 → HO.EDOVER 20:53
PROVIDERS: Nurse Practitioner Family; Admitting Provider Nurse Practitioner Acute Care; Emergency Provider Emergency Medicine; Visit Provider Nurse Practitioner Acute Care
DX: I13.0 Hypertensive heart and chronic kidney disease with heart failure and stage 1 through stage 4 chronic kidney disease, or unspecified chronic kidney disease (principal); I50.33 Acute on chronic diastolic (congestive) heart failure; J96.01 Acute respiratory failure with hypoxia; I48.19 Other persistent atrial fibrillation; N17.9 Acute kidney failure, unspecified; E11.22 Type 2 diabetes mellitus with diabetic chronic kidney disease; D50.9 Iron deficiency anemia, unspecified; R41.89 Other symptoms and signs involving cognitive functions and awareness; N18.30 Chronic kidney disease, stage 3 unspecified; I42.9 Cardiomyopathy, unspecified; Z20.822 Contact with and (suspected) exposure to COVID-19; Z79.01 Long term (current) use of anticoagulants; Z79.899 Other long term (current) drug therapy
CPT/HCPCS: 36415; 71045; 80048; 80076; 83880; 84484; 85025; 87635; 93005; 99285; J1200; J1938

== ENCOUNTER → 2025-04-06 16:04 | Outpatient (BNV) | payer OTHER, SELFPAY | PROVIDERS: Admitting Provider Nurse Practitioner Acute Care; Emergency Provider Emergency Medicine; Visit Provider Internal Medicine | DX: I48.91 Unspecified atrial fibrillation (principal) | CPT/HCPCS: 93010 ==

== ENCOUNTER → 2025-04-06 16:06 | Outpatient (BNV) | payer OTHER, SELFPAY | PROVIDERS: Emergency Provider Emergency Medicine; Visit Provider Radiology Diagnostic Radiology | DX: R06.02 Shortness of breath (principal); I51.7 Cardiomegaly; J90 Pleural effusion, not elsewhere classified | CPT/HCPCS: 71045 ==

== ENCOUNTER → 2025-04-06 17:54 | Outpatient (BNV) | payer OTHER, SELFPAY | PROVIDERS: Admitting Provider Nurse Practitioner Acute Care; Emergency Provider Emergency Medicine; Visit Provider Nurse Practitioner Acute Care | DX: I50.9 Heart failure, unspecified (principal) | CPT/HCPCS: 99222 ==

== ENCOUNTER 2025-04-12 15:26 | Inpatient (IN) | payer OTHER, SELFPAY ==
--- OUTSIDE RECORDS SUMMARY | 2025-04-07 14:45 | XMS_ITS | Encounter Summary ---
Author Organization [employer] Address [address] [place] [address] Care Team Providers Care Duck Farmer Name Role Phone Cynthia Marshall NP Primary Care Provider [phone] Reason for Visit * Reason Comments hospital follow up Encounter Details Date Type Department Care Team ([facility] st Contact Info) Description 04/07/2025 2:45 PM EDT Office Visit [facility] [address], [place] [phone] Cynthia Marshall NP [address] [place] [address] Acute on chronic congestive heart failure, unspecified heart failure type (CMS/HCC) (Primary Dx); Type 2 diabetes mellitus with other specified complication, without long-term current use of insulin (CMS/HCC); Paroxysmal atrial fibrillation (CMS/HCC); CHF (congestive heart failure), NYHA class II, acute on chronic, combined (CMS/HCC); CKD stage 4 secondary to hypertension (CMS/HCC); Moderate dementia with anxiety, unspecified dementia type (CMS/HCC) Social History Tobacco Use Types Packs/Day [...] Sign Reading Time Taken Comments Blood Pressure 140/88 04/07/2025 2:45 PM EDT Pulse 61 04/07/2025 2:45 PM EDT Temperature 36.7 C (98.1 F) 04/07/2025 2:45 PM EDT Respiratory Rate 15 04/07/2025 2:45 PM EDT Oxygen Saturation 96% 04/07/2025 2:45 PM EDT Inhaled Oxygen Concentration - - Weight 95.1 kg (209 lb 9.6 oz) 04/07/2025 2:45 P M EDT Height 172.7 cm (5' 8 ) 04/07/2025 2:45 PM EDT Body Mass Index 31.87 04/07/2025 2:45 PM EDT documented in this encounter Progress Notes * Cynthia Marshall UTILIZATION MANAGEMENT MANAGER - 04/07/2025 2:45 PM EDT Subjective: Ethan Cristina is a 74 y.o. male who presents to the office for a sick visit. HPI Pt presents with acute on chronic chf, has gone to ER multiple times over last month, most recentlythis morning, x-ray consistent with CHF, pt leaves AMA and refuses admission. Has been deemed competent by psychiatry. Pt is adamant that he does not want to go to hospital despite possibilty of . Is not certain if he has his lasix at home Denies chest pain or pressure Declines hospice Willing to have home VNA Willing to have me call his daughter (HIPAA release is available in chart) Problem List[1] Review of Systems Constitutional: Negative for activity change and appetite change. Cardiovascular: Positive for leg swelling. Genitourinary: Negative for difficulty urinating. Musculoskeletal: Positive for gait problem and joint swelling. Skin: Positive for rash and wound. Psychiatric/Behavioral: Negative for agitation. Allergies[2] Objective: Visit Vitals BP (!) 140/88 (BP Location: Left arm, Patient Position: Sitting, BP Cuff Size: Adult) Pulse 61 Temp 98.1 ??F (36.7 ??C) (Oral) Resp 15 Ht 5' 8 (1.727 m) Wt 209 lb 9.6 oz (95.1 kg) SpO2 96% BMI 31.87 kg/m?? Smoking Status Former BSA 2.14 m?? Physical Exam Vitals reviewed. Constitutional: Appearance: Normal appearance. He is obese. HENT: Head: Normocephalic. Cardiovascular: Rate and Rhythm: Normal rate and regular rhythm. Heart sounds: Normal heart sounds. Pulmonary: Breath sounds: Rales present. Abdominal: Palpations: Abdomen is soft. Tenderness: There is no right CVA tenderness or left CVA tenderness. Musculoskeletal: Cervical back: Neck supple. Right lower leg: Edema present. Left lower leg: Edema present. Skin: Findings: Lesion and rash present. Neurological: Mental Status: He is alert and oriented to person, place, and time. Cranial Nerves: No cranial nerve deficit. Gait: Gait abnormal. Psychiatric: Mood and Affect: Mood normal. This SmartLink has not been configured with any valid records. Wt Readings from Last 3 Encounters: 04/07/25 209 lb 9.6 oz (95.1 kg) 03/13/25 194 lb (88 kg) 03/10/25 196 lb 6.4 oz (89.1 kg) Lab Results Component Value Date WBC 6.7 03/04/2025 HGB 9.9 (L) 03/04/2025 HCT 32.8 (L) 03/04/2025 MCV 89.9 03/04/2025 PLT 249 03/04/2025 Lab Results Component Value Date GLUCOSE 149 (H) 03/04/2025 GLUCOSE 152 (H) 03/04/2025 NA 140 03/04/2025 NA 140 03/04/2025 K 4.3 03/04/2025 K 4.5 03/04/2025 CO2 26 03/04/2025 CO2 26 03/04/2025 CL 108 03/04/2025 CL 108 03/04/2025 BUN 33 (H) 03/04/2025 BUN 33 (H) 03/04/2025 CREATININE 1.93 (H) 03/04/2025 CREATININE 1.91 (H) 03/04/2025 === 04/04/25 === XR CHEST 2 VIEWS Impression: Congestive heart failure. This document has been electronically signed by: Ajith Muniz MD on 04/04/2025 09:51:59 Assessment/Plan: Problem List Items Addressed This Visit Paroxysmal atrial fibrillation ([facility]) Relevant Medications furosemide (Lasix) 40 MG tablet Type 2 diabetes mellitus ([facility]) Relevant Orders POCT Glucose (Completed) CKD stage 4 secondary to hypertension ([facility]) Relevant Medications furosemide (Lasix) 40 MG tablet CHF (congestive heart failure), NYHA class II, acute on chronic, combined ([facility]) Overview 2D Echo (11/2024) showing mildly decreased LV systolic function with EF 52% and hypokinesis of the inferolateral wall and basal inferior segment; no vavular pathology. Current Assessment & Plan Urgency of diuresis reviewed Pt adamantly declines hosp care despite dayan discussion regarding poor outcomes including . Pt uncertain of home regimen, Hospice and palliative care option reivewed Pt is agreeable to home VNA Relevant Medications furosemide (Lasix) 40 MG tablet Dementia with anxiety ([facility]) CHF exacerbation ([facility]) - Primary Current Assessment & Plan Severe, I reviewed my recommendation that pt is admitted to hospital for IV diuresis Pt declines Pt requests I call daughter. Discussion with estrellitaugher about medications at home, management and recommendation for hospital care . Daughter states she understands that without in patient care prognosis is poor including . Relevant Medications furosemide (Lasix) 40 MG tablet Other Relevant Orders Basic Metabolic Panel B Type Natriuretic Peptide (BNP) CBC auto differential Current Medications[3] Update pt called at home 04/06/25 and states he is doing better but completely forgot to get his blood drawn. [1] Patient Active Problem List Diagnosis Acute low back pain Anxiety Essential hypertension Hyperlipidemia Stage 3 chronic kidney disease due to type 2 diabetes mellitus ([facility]) Iron deficiency anemia Metabolic bone disease Mild cognitive disorder Paroxysmal atrial fibrillation ([facility]) Type 2 diabetes mellitus ([facility]) Vitamin D deficiency Renal osteodystrophy Chronic systolic heart failure ([facility]) Skin lesion Stage 3b chronic kidney disease ([facility]) Anemia due to stage 3a chronic kidney disease ([facility]) CKD stage 4 secondary to hypertension ([facility]) CHF (congestive heart failure), NYHA class II, acute on chronic, combined ([facility]) Elevated uric acid in blood Hyperuricemia Primary osteoarthritis of both knees Prepatellar bursitis of left knee Osteoarthritis of left knee Other hydronephrosis Colitis Hypertension Dementia with anxiety ([facility]) Open wound of skin Housing situation unstable Hyperparathyroidism ([facility]) CVA, old, cognitive deficits Rectal bleeding Gastrointestinal hemorrhage associated with chronic gastritis KELSEY (acute kidney injury) ([facility]) Hypokalemia Hypomagnesemia Dyspnea on exertion Lower extremity edema Edema CHF exacerbation ([facility]) [2] No Known Allergies [3] Current Outpatient Medications Medication Sig Dispense Refill amLODIPine (Norvasc) 5 MG tablet Take 1 tablet (5 mg) by mouth Once per day. 90 tablet 0 apixaban (Eliquis) 2.5 MG tablet Take 1 tablet (2.5 mg) by mouth 2 times daily. 180 tablet 1 atorvastatin (Lipitor) 40 MG tablet Take 1 tablet (40 mg) by mouth Once per day. 90 tablet 2 Blood Glucose Monitoring Suppl (EquityMetrix Lite) w/Device kit Use to test blood [...] EVERY DAY AT BEDTIME 90 capsule 0 ferrous sulfate 325 (65 Fe) MG tablet Take 1 tablet by mouth in the morning and 1 tablet in the evening. fluticasone (Flonase) 50 MCG/ACT nasal spray INSTILL 1 SPRAY IN EACH NOSTRIL ONCE DAILY IN THE MORNING 16 g 0 furosemide (Lasix) 40 MG tablet Take 1 tablet (40 mg) by mouth Once per day. 30 tablet 0 GaviLAX 17 GM/SCOOP powder Take 17 g by mouth Once per day. glucose blood ([employer] Ultra) test strip test blood sugar as [...] 60 capsule 0 No current facility-administered medications for this visit. documented in this encounter Miscellaneous Notes * Assessment & Plan Note - Cynthia Marshall NP - 04/08/2025 4:26 PM EDTAssociated Problem(s): CHF exacerbation ([facility]) Severe, I reviewed my recommendation that pt is admitted to hospital for IV diuresis Pt declines Pt requests I call daughter. Discussion with daugher about medications at home, management and recommendation for hospital care . Daughter states she understands that without in patient care prognosis is poor including . * Assessment & Plan Note - Cynthia Marshall NP - 04/08/2025 4:25 PM EDTAssociated Problem(s): CHF (congestive heart failure), NYHA class II, acute on chronic, combined (CMS/HCC) Urgency of diuresis reviewed Pt adamantly declines hosp care despite dayan discussion regarding poor outcomes including . Pt uncertain of home regimen, Hospice and palliative care option reivewed Pt is agreeable to home VNA documented in this encounter Plan of Treatment Upcoming Encounters Date Type Department Care Team (Late st Contact Info) Description 04/15/2025 11:30 AM EDT Office Visit [facility] MEDICINE [address] [place] [phone] Blanca Crowley MD [address] [place], [place] [phone] Scheduled Orders Name Type Priority Associated Diagnoses Orde r Schedule Basic Metabolic Panel Lab Routine Acute on chronic congestive heart failure, unspecified heart failure type (CMS/HCC) Expected: 04/07/2025 (Approximate), Expires: 04/07/2026 B Type Natriuretic Peptide (BNP) Lab Routine Acute on chronic congestive heart failure, unspecified heart failure type (CMS/HCC) Expected: 04/07/2025, Expires: 04/07/2026 CBC auto differential Lab Routine Acute on chronic congestive heart failure, unspecified heart failure type (CMS/HCC) Expected: 04/07/2025 (Approximate), Expires: 04/07/2026 documented as of this encounter Procedures Procedure Name Priority Date/Time Associated Diagnosis Comments POCT GLUCOSE Routine 04/07/2025 2:48 PM EDT Type 2 diabetes mellitus with other specified complication, without long-term current use of insulin ([facility]) documented in this encounter Results * POCT Glucose (04/07/2025 2:48 PM EDT) Glucose Blood, POC 170 60 - 200 mg/dL QC Media Lot # [id number] Lot# Expiration Date Blood Capillary blood specimen / Unknown 04/07/2025 2:48 PM EDT Cynthia Marshall NP POINT OF CARE TEST ENTER/EDIT OR DERABLES Final Result documented in this encounter Visit Diagnoses Diagnosis Acute on chronic congestive heart failure, unspecified heart failure type ([facility])- Primary Type 2 diabetes mellitus with other specified complication, without long-term current use of insulin ([facility]) Paroxysmal atrial fibrillation ([facility]) Atrial fibrillation CHF (congestive heart failure), NYHA class II, acute on chronic, combined ([facility]) CKD stage 4 secondary to hypertension ([facility]) Moderate dementia with anxiety, unspecified dementia type ([facility]) documented in this encounter Additional Health Concerns Assessment Noted Time PHQ-9 Depression Total Score: 3 01/22/20 25 10:47 AM EDT documented as of this encounter Care Teams Duck Farmer Relationship Specialty Start Date End Date Cynthia Marshall NP [address] [place] [id number] PCP - General Family Medicine 09/10/23 [facility] 01/01/25 documented as of this encounter
--- OUTSIDE RECORDS SUMMARY | 2025-04-09 08:40 | XMS_ITS | Encounter Summary ---
Author Organization [employer] Address [address] [place] [address] [address] [place] [address] Care Team Providers Care Food Service Attendant Name Role Phone Cynthia Marshall NP Primary Care Provider [phone] Reason for Referral * Consultation (STAT) - Authorized Specialty Diagnoses / Procedures Referred By Apple hoffman Referred To Contact Family Medicine Diagnoses Bilateral lower extremity edema Apryl Ruelas DO [address] [place] [address] Phone: tel: fax: Referral ID Status Reason Start Date Expiration Date Visits Requested Visits Authorized [id number] Authorized Specialty Services Required 04/09/2025 04/09/2026 1 1 * Imaging (Routine) - Authorized Specialty Diagnoses / Procedures Referred By Apple hoffman Referred To Contact Radiology Diagnoses Scrotal edema Procedures US Scrotum Apryl Ruelas DO [address] [place] [address] Phone: tel: fax: [facility] [address] [place] [address] Phone: tel: fax: Referral ID Status Reason Start Date Expiration Date V isits Requested Visits Authorized [id number] Authorized 04/09/2025 04/09/2026 1 1 Reason for Visit * Reason Comments Groin Swelling Testicle Swelling Encounter Details Date Type Department Care Team (Late st Contact Info) Description 04/09/2025 8:40 AM EDT Office Visit [facility] [address] [place], [place] [id number] Apryl Ruelas DO [address] [place] [address] Scrotal edema (Primary Dx); Bilateral lower extremity edema Social History Tobacco Use Types Packs/Day Years [...] Sign Reading Time Taken Comments Blood Pressure 147/70 04/09/2025 8:39 AM EDT Pulse 69 04/09/2025 8:39 AM EDT Temperature 36.4 C (97.6 F) 04/09/2025 8:39 AM EDT Respiratory Rate 16 04/09/2025 8:39 AM EDT Oxygen Saturation 95% 04/09/2025 8:39 AM EDT Inhaled Oxygen Concentration - - Weight - - Height - - Body Mass Index - - documented in this encounter Progress Notes * Apryl Ruelas, DO - 04/09/2025 8:40 AM EDT SUBJECTIVE Ethan Cristina is a 74 y.o. male who presents for Sick Visit. He presents to [place] today c/o swollen testicle. He reports scrotal swelling for the last few days. He's not sure when his started or if his sx are worsening. He denies any scrotal pain. He's not sure if there is any redness. He denies any dysuria,hematuria or frequency. He denies any penile discharge. He says that his legs are always swollen and feels that it's getting worse. He says that his breathing is ok. He follows regularly with cardiology but he's not sure when he has appt. He is very adamant about not wanting to go to the hospital for anything. History provided by: Patient cloth calender used: Yes Review of Systems Constitutional: Negative for activity change, appetite change, fever and unexpected weight change. Respiratory: Negative for cough and chest tightness. Cardiovascular: Positive for leg swelling. Negative for chest pain and palpitations. Gastrointestinal: Negative for abdominal pain, diarrhea, nausea and vomiting. Genitourinary: Positive for scrotal swelling. Negative for decreased urine volume, difficulty urinating, dysuria, penile discharge and testicular pain. Neurological: Negative for dizziness, weakness and headaches. Patient Active Problem List Diagnosis Acute low [...] exertion Lower extremity edema Edema CHF exacerbation (CMS/HCC) No Known Allergies OBJECTIVE Vitals: 04/09/25 0839 BP: (!) 147/70 BP Location: Right arm Patient Position: Sitting BP Cuff Size: Adult Pulse: 69 Resp: 16 Temp: 97.6 ??F (36.4 ??C) TempSrc: Temporal SpO2: 95% Physical Exam Constitutional: General: He is not in acute distress. Appearance: Normal appearance. Comments: Seated in WC Cardiovascular: Rate and Rhythm: Normal rate and regular rhythm. Heart sounds: Normal heart sounds. No murmur heard. Comments: Clear, watery discharge from LE Pulmonary: Effort: Pulmonary effort is normal. Breath sounds: Normal breath sounds. No wheezing or rhonchi. Comments: Speaking in full sentences Genitourinary: Comments: Diffuse scrotal edema and thickening, no palpable mass, no TTP Musculoskeletal: Right lower le+ Pitting Edema present. Left lower le+ Pitting Edema present. Neurological: General: No focal deficit present. Mental Status: He is alert. Assessment/Plan Diagnoses and all orders for this visit: Scrotal edema Likely 2/2 chronic CHF -trial increasing lasix to BID dosing x 2 weeks -referred for scrotal US at [facility] -advised rtc or go to ED if increased swelling or develops any pain or fevers Bilateral lower extremity edema With weeping, likely 2/2 CHF and chronic venous insufficiency -trial increased lasix as above -referred to [facility] for eval -advised rtc if sx worsen, he agrees with plans --Follow-up with PCP as scheduled or sooner prn-- Current Outpatient Medications: amLODIPine (Norvasc) 5 MG tablet, Take 1 tablet (5 mg) by mouth Once per day., Disp: 90 tablet, Rfl: 0 apixaban (Eliquis) 2.5 MG tablet, Take 1 tablet (2.5 mg) by mouth 2 times daily., Disp: 180 tablet,Rfl: 1 atorvastatin (Lipitor) 40 MG tablet, Take 1 tablet (40 mg) by mouth Once per day., Disp: 90 tablet,Rfl: 2 Blood Glucose Monitoring Suppl (gShift Labs Lite) w/Device kit, Use to test blood sugar bid dx dm, Disp: 1 kit, Rfl: 0 Blood Pressure Monitoring (Omron 3 Series BP Monitor) device, USE TO CHECK BLOOD PRESSURE DAILY, Disp: 1 each, Rfl: 0 calcitriol (Rocaltrol) 0.25 MCG capsule, TAKE 1 CAPSULE BY MOUTH EVERY OTHER DAY, Disp: 45 capsule,Rfl: 1 carvedilol (Coreg) 6.25 MG tablet, Take 1 tablet (6.25 mg) by mouth 2 times daily., Disp: 180 tablet, Rfl: 0 Diclofenac Sodium 1 % gel, Apply thin layer by topical route (quantity as directed on package insert) to affected area of pain 3 times daily as needed., Disp: 50 g, Rfl: 3 docusate sodium (Colace) 100 MG capsule, Take 1 capsule (100 mg) by mouth if needed each day for constipation. TAKE 1 CAPSULE BY MOUTH EVERY DAY AT BEDTIME, Disp: 90 capsule, Rfl: 0 ferrous sulfate 325 (65 Fe) MG tablet, Take 1 tablet by mouth in the morning and 1 tablet in the evening., Disp: , Rfl: fluticasone (Flonase) 50 MCG/ACT nasal spray, INSTILL 1 SPRAY IN EACH NOSTRIL ONCE DAILY IN THE MORNING, Disp: 16 g, Rfl: 0 furosemide (Lasix) 40 MG tablet, Take 1 tablet (40 mg) by mouth 2 times daily for 14 days., Disp: 28 tablet, Rfl: 0 GaviLAX 17 GM/SCOOP powder, Take 17 g by mouth Once per day., Disp: , Rfl: glucose blood (ClickBusuch Ultra) test strip, test blood sugar as needed, in the morning before breakfast, Disp: 100 each, Rfl: 11 Lancets 33G misc, 100 each 2 times daily., Disp: 60 each, Rfl: 11 lisinopril 40 MG tablet, TAKE 1 TABLET BY MOUTH EVERY MORNING, Disp: 90 tablet, Rfl: 1 omeprazole (PriLOSEC) [address] capsule, Take 1 capsule (40 mg) by mouth in the morning and 1 capsule (40 mg) in the evening. Do not crush or chew., Disp: 60 capsule, Rfl: 0 Scribe Attestation: Aniket Zayas, am serving as a scribe to document services personally performed by Apryl Holt, based on the patient's response to questions by provider and provider's statements to me. 04/09/25 12:28 PM Physicians Attestation: Apryl Zayas DO, have reviewed the information by the scribe, Aniket Cheng, for accuracy and agree with its content. documented in this encounter Plan of Treatment Upcoming Encounters Date Type Department Care Team (Late st Contact Info) Description 04/15/2025 11:30 AM EDT Office Visit [facility] [address] [place] [id number] Blanca Crowley MD [address] [place] [address] Scheduled Orders Name Type Priority Associated Diagnoses Orde r Schedule US Scrotum Imaging Routine Scrotal edema Expected: 04/09/2025, Expires: 04/09/2026 Scheduled Referrals Name Type Priority Associated Diagnoses Orde r Schedule Referral to [facility] Skin Adult Outpatient Referral STAT Bilateral lower extremity edema Expected: 04/09/2025 (Approximate), Expires: 04/09/2026 documented as of this encounter Visit Diagnoses Diagnosis Scrotal edema- Primary Edema of male genital organs Bilateral lower extremity edema documented in this encounter Additional Health Concerns Assessment Noted Time PHQ-9 Depression Total Score: 3 01/22/20 25 10:47 AM EDT documented as of this encounter Care Teams Food Service Attendant Relationship Specialty Start Date End Date Cynthia Marshall NP [address] [place] [address] PCP - General Family Medicine 09/10/23 [facility] 01/01/25 documented as of this encounter
--- OUTSIDE RECORDS SUMMARY | 2025-04-11 10:40 | XMS_ITS | Encounter Summary ---
Author Organization [employer] Address [address] [place] [address] Care Team Providers Care Forest Technician Name Role Phone Cynthia Marshall NP Primary Care Provider [phone] Reason for Visit * Reason Comments Shortness of Breath Memory Loss Encounter Details Date Type Department Care Team ([facility] st Contact Info) Description 04/11/2025 10:40 AM EDT Office Visit [facility] [address] [place] [address] Sebastián Ahn MD [address] [place] [address] Pedal edema (Primary Dx) Social History Tobacco Use Types [...] Sign Reading Time Taken Comments Blood Pressure 157/85 04/11/2025 9:57 AM EDT Pulse 71 04/11/2025 9:57 AM EDT Temperature 36.6 C (97.8 F) 04/11/2025 9:57 AM EDT Respiratory Rate 16 04/11/2025 9:57 AM EDT Oxygen Saturation 93% 04/11/2025 9:57 AM EDT Inhaled Oxygen Concentration - - Weight - - Height - - Body Mass Index - - documented in this encounter Progress Notes * Ramon Devi RN - 04/11/2025 10:40 AM EDT Assessment: Patient presents to [facility] c/o Shortness of breath and memory loss. Symptoms have been present for day. Symptoms are constant. Patient is taking (treatment/meds) pt reported he did not take his medications this morning.. VS as follows (if applicable): Temp 97.8 orally HR 71 regular rate and rhythm Resp 16 none BP 157/85 left Arm; Device: Automatic Cuff Size: regular O2 sat 93 % on room air Pain level: 0, Clear to auscultation bilaterally, Location: throughout Allergies[1] Current Medications[2] Patient Active Problem List Diagnosis Date Noted CHF exacerbation ([facility]) 04/06/2025 Edema 03/10/2025 Dyspnea on exertion 03/04/2025 Lower extremity edema 03/04/2025 Hypokalemia 02/04/2025 Hypomagnesemia 02/04/2025 Hyperparathyroidism ([facility]) 01/21/2025 CVA, old, cognitive deficits 01/21/2025 Rectal bleeding 01/21/2025 Gastrointestinal hemorrhage associated with chronic gastritis 01/21/2025 KELSEY (acute kidney injury) ([facility]) 01/21/2025 Dementia with anxiety ([facility]) 12/04/2024 Open wound of skin 12/04/2024 Housing situation unstable 12/04/2024 Colitis 12/03/2024 Hypertension 12/03/2024 Other hydronephrosis 07/15/2024 Osteoarthritis of left knee 04/18/2024 Primary osteoarthritis of both knees 03/21/2024 Prepatellar bursitis of left knee 03/21/2024 Elevated uric acid in blood 12/31/2023 Hyperuricemia 12/31/2023 CKD stage 4 secondary to hypertension ([facility]) 12/05/2023 CHF (congestive heart failure), NYHA class II, acute on chronic, combined ([facility]) 12/05/2023 Skin lesion 10/08/2023 Stage 3b chronic kidney disease ([facility]) 10/08/2023 Anemia due to stage 3a chronic kidney disease ([facility]) 10/08/2023 Acute low back pain 06/30/2022 Anxiety 06/30/2022 Essential hypertension 06/30/2022 Hyperlipidemia 06/30/2022 Mild cognitive disorder 06/30/2022 Paroxysmal atrial fibrillation ([facility]) 06/30/2022 Type 2 diabetes mellitus ([facility]) 06/30/2022 Stage 3 chronic kidney disease due to type 2 diabetes mellitus ([facility]) 06/01/2022 Metabolic bone disease 06/01/2022 Renal osteodystrophy 01/05/2022 Vitamin D deficiency 11/01/2021 Iron deficiency anemia 07/27/2021 Chronic systolic heart failure ([facility]) 01/30/2023 Plan of care: Report to Dr. Ahn Provider evaluation: yes Ramon Devi RN [1] No Known Allergies [2] Current Outpatient Medications Medication Sig Dispense Refill [...] 90 tablet 2 Blood Glucose Monitoring Suppl (LLUSTRE Lite) w/Device kit Use to test blood [...] by mouth 2 times daily for 14 days. 28 tablet0 GaviLAX 17 GM/SCOOP powder Take 17 g by mouth Once per day. glucose blood (Argo TeaTouch Ultra) test strip test blood sugar as [...] No current facility-administered medications for this visit. Cosigned by Sebastián Ahn MD at 04/11/2025 10:44 AM EDT * Sebastián Ahn MD - 04/11/2025 10:40 AM EDT Subjective History was provided by the patient. Ethan Cristina is a 74 y.o. male who presents to Sunday [facility] for evaluation of ongoing SOB and pedal edema. Patient has been frequently accessing [facility] and ER. Patient with complicated medical history of CKD, HTN, CHF, CM, CVA, chronic Afib on Eliquis, and T2 DM. Frequently developing pleural effusion. Has ongoing pedal edema. He was most recently seen at [facility] on 04/04/2025 for the similar symptoms. He frequently gets diuresed and leaves AMA. He is currently on PO Furosemide, but his adherence is questionable. He also has CCA involvement. Per [facility] RN, his daughter informed he has VNA services as well. He is followed by Nephrology (last visit 03/11/2025). At his previous hospitalization, he had Cardiology consultation. His edema was thought to be causedby hypoalbuminemia, rather than CHF. His Albumin level was 3.3 on 03/04/2025. Previous 2D Echo (11/2024) showed mildly decreased LVEF of 52%. Documentation of having capacity from his recent ER note. He has been evaluated by [facility] case management as well (but often leaves AMA before any services can be provided). He currently has pending labs (CBC, BMP, and BNP) after recent increase of Furosemide 40mg BID for 2 weeks (previously was on 40mg daily). Encouraged to get his lab work done [facility]. His BUN/Cr 33/1.91 & K+ 4.5 (03/04/2025). Today, his pulmonary exam is without crackles. He is also not in respiratory distress. I informed him that I would like to check CXR to futher confirm no pleural effusion. Given no X-ray availabilityon Sunday, I have recommended hospital evaluation, but patient declined (offered to provide transportation). Per [facility] staff, he appears better than his typical presentation. Objective Vitals: 04/11/25 0957 BP: (!) 157/85 BP Location: Left arm Patient Position: Sitting BP Cuff Size: Adult Pulse: 71 Resp: 16 Temp: 97.8 ??F (36.6 ??C) TempSrc: Oral SpO2: 93% Physical Exam Constitutional: General: He is not in acute distress. Appearance: Normal appearance. He is not toxic-appearing or diaphoretic. Comments: Seated in WC HENT: Right Ear: External ear normal. Left Ear: External ear normal. Mouth/Throat: Mouth: Mucous membranes are moist. Pharynx: Oropharynx is clear. Eyes: Extraocular Movements: Extraocular movements intact. Conjunctiva/sclera: Conjunctivae normal. Cardiovascular: Rate and Rhythm: Normal rate and regular rhythm. Heart sounds: Normal heart sounds. No murmur heard. Pulmonary: Effort: Pulmonary effort is normal. No respiratory distress. Breath sounds: Normal breath sounds. No wheezing, rhonchi or rales. Comments: Speaking in full sentences Chest: Chest wall: No tenderness. Musculoskeletal: Cervical back: Neck supple. Right lower le+ Pitting Edema present. Left lower le+ Pitting Edema present. Neurological: General: No focal deficit present. Mental Status: He is alert. Ethan was seen today for shortness of breath and memory loss. Diagnoses and all orders for this visit: Pedal edema (Primary) - XR Chest 2 Views; Future Patient presents to Sunday [facility] for ongoing SOB and pedal edema Frequently accessing WIC and ER Frequently developing pleural effusion Etiology for edema likely due to hypoalbuminemia (also with CHF with mildly decreased LVEF of 52%) His Albumin level was 3.3 on 03/04/2025 Advised to get CBC, BMP, and BNP done [facility] (underlying CKD) Furosemide dose recently increased to 40mg BID for 2 weeks Medication adherence discussed No crackles on pulmonary exam today Not in respiratory distress Informed I would like to pursue CXR, but declined to go to [facility] Also declined ER evaluation Currently has a scheduled appointment 04/15/2025 Indications for UC/ER use reviewed Advised to contact the clinic with worsening or persistent symptoms documented in this encounter Plan of Treatment Upcoming Encounters Date Type Department Care Team (Late st Contact Info) Description 04/15/2025 11:30 AM EDT Office Visit [facility] [address] [place] [address] Blanca Crowley MD [address] [place] [address] Scheduled Orders Name Type Priority Associated Diagnoses Orde r Schedule XR Chest 2 Views Imaging Routine Pedal edema Expected: 04/11/2025, Expires: 04/11/2026 documented as of this encounter Visit Diagnoses Diagnosis Pedal edema- Primary Edema documented in this encounter Additional Health Concerns Assessment Noted Time PHQ-9 Depression Total Score: 3 01/22/20 10:47 AM EDT documented as of this encounter Care Teams Forest Technician Relationship Specialty Start Date End Date Cynthia Marshall NP [address] [place] [id number] PCP - General Family Medicine 09/10/23 [facility] documented as of this encounter
[2025-04-12] VITALS (8 sets, daily range): BP systolic 132–153; BP diastolic 50–82; PULSE 62–84; RESP 18–22; TEMP 36.1–36.6; O2SAT 93–98; BMI 30.7
--- NOTE | ~2025-04-12 | XR_ITS ---
EXAMINATION: XR CHEST CLINICAL INFORMATION: follow up R pleural effusion COMPARISON: Numerous priors most recently 04/12/2025. CT chest 04/12/2025. TECHNIQUE: Frontal view of the chest was obtained. FINDINGS: There is cardiac enlargement. Aortic mural calcifications. Mediastinal and hilar contours appear normal. There is a small to moderate-sized layering right effusion, slightly larger than previously. Underlying right basilar opacity/consolidation, likely compressive atelectasis. Pneumonia cannot be excluded. The left lung is clear. There is no left effusion. There is no perceptible pneumothorax. No focal osseous or soft tissue abnormality. There are degenerative changes in the shoulder joints and spine. XR/XR chest 1V IMPRESSION: 1. Cardiomegaly. 2. Slightly larger small to moderate-sized right pleural effusion. Underlying right basilar parenchymal opacity, likely compressive atelectasis. Pneumonia cannot be excluded given the appearance. Electronically signed by: Jack Shah MD 04/17/2025 08:51 AM EDT
--- NOTE | ~2025-04-12 | XR_ITS ---
CLINICAL HISTORY: SOB 1 view chest x-ray Comparison: CR/SR - XR CHEST 1 VIEW - 04/06/25 16:15 EDT CR - XR CHEST 2V - 04/04/25 09:35 EDT Findings: Moderate airspace opacity within the right lower lung with small parapneumonic effusion. Heart size is normal. No acute fracture. IMPRESSION: Right lower lobe pneumonia with parapneumonic effusion. Continued plain film follow-up is recommended to ensure resolution, and to exclude underlying neoplasm. This document has been electronically signed by: Adelia De Santiago MD on 04/12/2025 16:16:08
--- NOTE | ~2025-04-12 | CT_ITS ---
CLINICAL HISTORY: ?pneumonia on xray with no clinical evidence CXR, CT chest without contrast Comparison: CR - XR CHEST 1V - 04/12/25 15:[address]/SR - CT CHEST WO IV CON - 12/06/24 15:12 EDT Findings: The heart is normal size. Calcification of the coronary vasculature. The visualized thyroid and mediastinum are unremarkable. The lungs are clear. Moderate right pleural effusion. Moderate right lower lobe airspace opacity. Visualized portions of the upper abdomen demonstrate a nodular hepatic contour as well as a small amount of perihepatic ascites. Biliary stent is incompletely visualized. The bones are intact. IMPRESSION: 1. Right lower lobe pneumonia with parapneumonic effusion as seen by plain film. 2. Coronary artery disease. 3. Cirrhosis. Small amount of ascites. This document has been electronically signed by: Adelia De Santiago MD on 04/12/2025 20:10:18
--- NOTE | 2025-04-12 15:33 | ECG_ITS ---
Test Reason : CP Blood Pressure : */* mmHG Vent. Rate : 57 BPM Atrial Rate : * BPM P-R Int : * ms QRS Dur : 86 ms QT Int : 464 ms P-R-T Axes : * 50 -83 degrees QTcB Int : 451 ms Atrial fibrillation with slow ventricular response Low voltage QRS Nonspecific ST and T wave abnormality Abnormal ECG When compared with ECG of 06-Apr-2025 16:10, QRS axis Shifted left Nonspecific T wave abnormality, worse in Inferior leads Inverted T waves have replaced nonspecific T wave abnormality in Lateral leads Referred By: Eileen Wong Electronically Signed By: NICOLA DIALLO MD
--- NOTE | 2025-04-12 15:45 | ED.SOB ---
HPI - SOB/Dyspnea General Chief Complaint: Dyspnea Stated Complaint: CP SOB and Afib Time Seen by Provider: 04/12/25 15:39 Source: patient, EMS and application developer manager Mode of arrival: EMS Limitations: no limitations History of Present Illness ED Provider: DR. 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 Related Data Home Medications ?Medication ?Instructions ?Recorded ?Confirmed blood-glucose meter #1 ea 05/14/20 01/14/24 lancets #100 ea 05/14/20 01/14/24 atorvastatin 40 mg tablet 40 mg PO DAILY 12/19/22 04/06/25 lisinopril 40 mg tablet 40 mg PO DAILY 10/20/24 04/06/25 apixaban 2.5 mg tablet (Eliquis) 2.5 mg PO BID 12/05/24 04/06/25 furosemide 40 mg tablet 40 mg PO DAILY 03/23/25 04/06/25 calcitriol 0.25 mcg capsule 0.25 mcg PO Q48H 03/30/25 04/06/25 ferrous sulfate 325 mg (65 mg 325 mg PO BID 03/30/25 04/06/25 iron) tablet Previous Rx's ?Medication ?Instructions ?Recorded blood sugar diagnostic #50 ea 01/24/21 omeprazole 40 mg capsule,delayed 40 mg PO BID@0630,1630 #60 caps 12/16/24 release amlodipine 5 mg tablet 5 mg PO DAILY #60 tabs 01/29/25 carvedilol 6.25 mg tablet 6.25 mg PO BID #60 tabs 01/29/25 Allergies Allergy/AdvReac Type Severity Reaction Status Date / Time No Known Allergies (No Known Allergy Verified 04/12/25 15:38 Allergies*) Review of Systems Review of Systems: Yes all other systems are reviewed and are negative PMFSH Past Medical History Medical History Anemia in chronic kidney disease (CKD) Hypertension Uncontrolled hypertension Congestive heart failure CKD (chronic kidney disease) CHF (congestive heart failure) CKD (chronic kidney disease) stage 4, GFR 15-29 ml/min Obesity (BMI 30.0-34.9) Cardiomyopathy Stroke Chronic atrial fibrillation CKD (chronic kidney disease) Former smoker Depression Diabetes High cholesterol Surgical History History of aneurysm History of shoulder surgery Family History Family History Father No problems noted. Mother Diabetes Hypertension Cancer Son No problems noted. Son No problems noted. Son No problems noted. Daughter No problems noted. Daughter No problems noted. Social History Social History Household Members: None Household Members Other:: Housing: Apartment Are you a primary career guidance counselor to a significant other at home: No Do you presently have visiting nurse or other home services: Yes Unable to assess alcohol history related to: Unknown Alcohol intake: never Patient Tobacco Use Status: Former Tobacco user Substance Use Type: Marijuana Advance Directives: Yes Advance Directives on File: Yes Advance Directives Date on File: 12/17/24 service: No Current occupational status: disabled Physical Exam Vital Signs: Vital Signs: Last Vital Signs Temp 97.0 F 04/12/25 16:25 Pulse 62 04/12/25 16:25 Resp 21 H 04/12/25 16:25 BP 146/70 H 04/12/25 16:25 Pulse Ox 93 04/12/25 16:25 O2 Del Method Room Air 04/12/25 16:25 BMI result Body Mass Index 30.7 Vital signs have been reviewed and appear to be correct. Blood pressure elevated. Heart rate normal. Respiratory rate normal. Temperature normal. Oxygen saturation normal. Appearance: Alert. Oriented X3. No acute distress. Head: Normal external exam. Normocephalic. Atraumatic. No Simental signs noted. No raccoon eyes noted Eyes: PERRLA. EOMI. Conjunctiva and sclera normal. Eyelids normal. ENT: TM's Normal. Pharynx normal. Uvula midline. Moist mucous membranes. No trismus noted. No drooling noted. No muffled voice noted. Neck: Normal inspection. Neck supple. FROM. No adenopathy. Thyroid Normal. No meningeal signs. No neck mass noted. CVS: Normal heart rate and rhythm. Heart sound normal. No murmurs noted. Pulses normal throughout. Respiratory: No respiratory distress. Painless inspiration. Breath sounds normal. No wheezes/rales/rhonchi noted. Chest nontender. No accessory muscle usage noted or decreased air movement noted. Abdomen: Soft and nontender. Bowel sounds normal in all 4 quadrants. No distention noted. No organomegaly noted. No visible injury noted. Back: No CVA tenderness. Full range of motion noted. Skin: Skin warm and dry. Normal skin color. Normal skin turgor. No rashes/lesions/lacerations noted. Extremities: +4 bilateral pitting edema to both lower extremity with weeping lesion on the lower legs. Neuro: Oriented X 3. Cranial nerve exam: II-XII are grossly intact No motor deficit. No sensory deficit. Reflexes normal. Course Reevaluation(s) Reevaluation #1: A 74-year-old male came in for shortness of breath and volume overload, patient recently hospitalized but signed AMA. 1. Patient is still makes urine will give 1 dose of Lasix for diuresis and nitroglycerin to the left chest to help with breathing and CHF. 2. X-ray reveals a new pneumonia with no sepsis will cover with ceftriaxone and doxycycline. 3. Acute on chronic renal failure. Time: 17:14 Medical Decision Making Differential Diagnosis Differential Diagnoses: The differential diagnosis associated with the presentation includes (Electrolyte derangement, severe anemia, sepsis, pneumonia, CHF, ACS, pleural effusion.) Admission/Observation Consideration of admission/observation: Escalation of care including admission/observation considered Lab Data MDM Lab Attestation statement: I reviewed the patient's lab results. 04/12/25 16:19 04/12/25 16:19 Labs: Lab Results 04/12/25 04/12/25 Range/Units 16:19 16:32 WBC 5.1 (4.8-10.8) X10*3/uL RBC 3.24 L (4.60-5.80) X10*6/uL Hgb 8.6 L (14.0-18.0) g/dl Hct 27.0 L (42.0-52.0) % MCV 83.3 (80.0-98.0) fL MCH 26.5 L (27.0-33.0) pg MCHC 31.9 (31.0-36.0) g/dl RDW 18.0 H (11.0-16.0) % Plt Count 207 (160-400) X10*3/uL MPV 9.3 L (9.4-12.4) fL Immature Gran % (Auto) 0.4 (0.0-0.4) % Neut % (Auto) 79.1 H (45-73) % Lymph % (Auto) 12.2 L (20-40) % [place] % (Auto) 7.9 (2-11) % Eos % (Auto) 0.4 (0-4) % Baso % (Auto) 0.0 (0-2) % Lymph # (Auto) 0.6 L (1.2-4.9) X10*3/uL [place] # (Auto) 0.4 (0.1-1.2) X10*3/uL Eos # (Auto) 0.0 (0.0-0.4) X10*3/uL Baso # (Auto) 0.0 (0.0-0.2) X10*3/uL Abs Immat Gran (auto) 0.02 (0.00-0.03) X10*3/uL Absolute Neuts (auto) 4.0 (2.0-8.3) x10*3/uL Absolute Nucleated RBC 0.000 (0.0-0.012) X10*3/uL Nucleated RBC % (auto) 0.0 (0.0-0.2) /100WBC VBG pH 7.44 H (7.32-7.43) VBG pCO2 32 mmHg VBG pO2 53 mmHg VBG HCO3 22 (22-26) mmol/L VBG O2 Saturation 75.0 % VBG Base Excess -0.5 mmol/L Sodium 140 (135-145) mmol/L Potassium 4.1 (3.3-5.1) mmol/L Chloride 104 (96-108) mmol/L Carbon Dioxide 21 L (22-29) mmol/L Anion Gap 19 (12-20) BUN 94 H (9-16) mg/dL Creatinine 4.04 H* (0.5-1.4) mg/dL Estim Creat Clear Calc 19.3 Estimated GFR 15 Random Glucose 98 (60-115) mg/dL Calcium 8.3 L (8.4-10.2) mg/dL Total Bilirubin 0.8 (0.0-1.0) mg/dL AST 31 (5-37) U/L ALT 18 (0-40) U/L Alkaline Phosphatase 172 H (39-117) U/L Troponin I High Sens 27.7 (<3.5-35.0) ng/L B-Natriuretic Peptide 2131 H (<100) pg/mL Total Protein 7.2 (6.5-8.0) g/dL Albumin 3.3 L (3.5-5.0) g/dL COVID-19 (CARLOS MANUEL) Negative (Negative) COVID-19 Clin Com See Note Influenza Type A (MARLENA) Negative (Negative) Influenza Type B (MARLENA) Negative (Negative) Influenza A & B Note See Note Independent Interpretation I performed an independent interpretation of an: Plain X-Ray (Chest:Right lower lobe pneumonia with parapneumonic effusion. Continued plain film follow-up is recommended to ensure resolution, and to exclude underlying neoplasm) Radiology Impression Discussion of test interpretation with radiology: I have reviewed the radiologist's reading. Critical Care Time Critical Care Time Critical Care Time: Yes Total Critical Care Time: 60 Attestation: The patient was critically ill with a high probability of imminent or life-threatening deterioration. I spent greater than 30 minutes of discontinuous time evaluating the patient, delivering critical care at the bedside, discussing evaluating data with consultants. Critical care time does not include time spent performing separately billable procedures or teaching. Time spent performing critical care was 60 minutes. Discharge Plan Discharge Clinical Impression: Congestive heart failure, Acute kidney injury superimposed on chronic kidney disease, Pneumonia Patient Disposition: Admitted As Inpatient Print Language: Sami
--- OUTSIDE RECORDS SUMMARY | 2025-04-12 16:22 | XMS_ITS | Encounter Summary ---
Author Organization [employer] Address [address] [address] [place] [address] Care Team Providers Care Carding Machine Operator Name Role Phone Cynthia [place] NP Primary Care Provider [phone] Encounter Details Date Type Department Care Team (Latest Contact Info) Description 04/11/2025 Travel Social History Tobacco Use Types Packs/Day [...] Description 04/15/2025 11:30 AM EDT Office Visit [facility] [address] [place] [address] [phone] Blanca [place] MD [address] [place], [place] [phone] documented as of this encounter Visit Diagnoses Not on filedocumented in this encounter Additional Health Concerns Assessment Noted Time PHQ-9 Depression Total Score: 3 01/22/20 10:47 AM EDT documented as of this encounter Care Teams Carding Machine Operator Relationship Specialty Start Date End Date Cynthia [place] NP [address] [place] [address] [phone] PCP - General Family Medicine 09/10/23 [facility] [facility]25 documented as of this encounter
--- OUTSIDE RECORDS SUMMARY | 2025-04-12 16:22 | XMS_ITS | Encounter Summary ---
Author Organization [employer] Address [address] [facility] [place] [address] Care Team Providers Care Membership Secretary Name Role Phone Cynthia [place] NP Primary Care Provider [phone] Encounter Details Date Type Department Care Team (Latest Contact Info) Description 04/07/2025 Travel Social History Tobacco Use Types Packs/Day [...] Description 04/15/2025 11:30 AM EDT Office Visit [facility] [address] [place] [address] [phone] Blanca [place] MD 230 [place], [place] [phone] documented as of this encounter Visit Diagnoses Not on filedocumented in this encounter Additional Health Concerns Assessment Noted Time PHQ-9 Depression Total Score: 3 01/22/20 10:47 AM EDT documented as of this encounter Care Teams Membership Secretary Relationship Specialty Start Date End Date Cynthia [place] NP [address] [place] [address] [phone] PCP - General Family Medicine 09/10/23 [facility] [place] 01/01/25 documented as of this encounter
--- OUTSIDE RECORDS SUMMARY | 2025-04-12 16:22 | XMS_ITS | Encounter Summary ---
Author Organization [employer] Address [address] [facility] [place] [address] Care Team Providers Care Proofer Name Role Phone Cynthia [place] NP Primary Care Provider [phone] Encounter Details Date Type Department Care Team (Latest Contact Info) Description 04/09/2025 Travel Social History Tobacco Use Types Packs/Day [...] Description 04/15/2025 11:30 AM EDT Office Visit [facility] [address] [place] [address] [phone] Blanca [place] MD 230 [place], [place] [phone] documented as of this encounter Visit Diagnoses Not on filedocumented in this encounter Additional Health Concerns Assessment Noted Time PHQ-9 Depression Total Score: 3 01/22/20 10:47 AM EDT documented as of this encounter Care Teams Proofer Relationship Specialty Start Date End Date Cynthia [place] NP [address] [place] [address] [phone] PCP - General Family Medicine 09/10/23 [facility] 01/01/25 documented as of this encounter
--- OUTSIDE RECORDS SUMMARY | 2025-04-12 16:22 | XMS_ITS | Encounter Summary ---
Author Organization [employer] Address [address] [facility] 7t [place] [address] Care Team Providers Care Cooler Supervisor Name Role Phone Cynthia [place] NP Primary Care Provider [phone] Reason for Visit * Reason Comments Med Refill Encounter Details Date Type Department Care Team ([facility] st Contact Info) Description 11/04/2023 Refill [facility] [address] [place] [address] Blanca [place] MD [address] [place] [address] Social History Tobacco Use Types Packs/Day Years [...] Description 04/15/2025 11:30 AM EDT Office Visit [facility] [address] [place] [phone] Blanca [place] MD [address] [place], [place] [phone] documented as of this encounter Visit Diagnoses Not on filedocumented in this encounter Additional Health Concerns Assessment Noted Time PHQ-9 Depression Total Score: 0 01/11/20 23 9:39 AM EDT documented as of this encounter Care Teams Cooler Supervisor Relationship Specialty Start Date End Date Cynthia [place] NP [address] [place] [phone] PCP - General Family Medicine 09/10/23 [facility] [facility]/01/25 documented as of this encounter
--- OUTSIDE RECORDS SUMMARY | 2025-04-12 16:22 | XMS_ITS | Clinical Summary ---
Author Organization [facility] Address [address] [place] [id number] Care Team Providers Care Java Spring Developer Name Role Phone Arielle Godinez Primary Care Provider Unavailabl e Allergies No known active allergies Medications Lancets (OneTouch Delica Plus [id number]) [facility] TEST BLOOD SUGAR [...] (01/04/2024): Last Assessment & Plan: Lesion right pentecostal suspicious for [place], referral to derm Chronic [...] age to complete this topic Insurance Medicaid [place] [facility] ([id number] [place] [facility] ([id number]) Care Teams Java Spring Developer Relationship Specialty Start Date End Date Arielle Godinez PCP - General Family Medicine 08/10/21
--- OUTSIDE RECORDS SUMMARY | 2025-04-12 16:22 | XMS_ITS | Encounter Summary ---
Author Organization [facility] Address [address] [place] [address] Phone Care Team Providers Care Culinary Chef Name Role Phone Arielle Godinez Primary Care Provider Unavailabl e Encounter Details Date Type Department Care Team (Late st Contact Info) Description 01/03/2024 Office Communication [facility] [address] [place] [address] Soy Meléndez MD [address] [facility] [address] [place] [address] Social History Tobacco Use Types [...] on filedocumented in this encounter Care Teams Culinary Chef Relationship Specialty Start Date End Date Arielle [place] PCP - General Family Medicine 08/10/21 documented as of this encounter
--- OUTSIDE RECORDS SUMMARY | 2025-04-12 16:22 | XMS_ITS | Encounter Summary ---
Author Organization [employer] Address [address] [facility] [address] 7t [place] [address] Care Team Providers Care Hat Maker Name Role Phone Cynthia [place] NP Primary Care Provider Encounter Details Date Type Department Care Team ([facility] st Contact Info) Description 09/26/2024 Orders Only [facility] 230 [place], [place] [phone] Cynthia [place] NP [address] [place] [address] Stage 3b chronic kidney disease (CMS/HCC) Social [...] Description 04/15/2025 11:30 AM EDT Office Visit [facility] [address] [place] [address] [phone] Blanca [place] MD 230 [place], [place] [phone] documented as of this encounter Visit Diagnoses Diagnosis Stage 3b chronic kidney disease (CMS/HCC) documented in this encounter Additional Health Concerns Assessment Noted Time PHQ-9 Depression Total Score: 0 01/21/20 24 11:17 AM EDT documented as of this encounter Care Teams Hat Maker Relationship Specialty Start Date End Date Cynthia [place] NP [address] [place] [phone] PCP - General Family Medicine 09/10/23 [facility] 01/01/25 documented as of this encounter
--- OUTSIDE RECORDS SUMMARY | 2025-04-12 16:23 | XMS_ITS | Encounter Summary ---
Author Organization [employer] Address [address] [facility] [address] [place] [address] Care Team Providers Care Grass Farm Laborer Name Role Phone Cynthia [place] NP Primary Care Provider [phone] Encounter Details Date Type Department Care Team (Late st Contact Info) Description 04/09/[address] [facility] [address] [place] [address] Shoshana Chaudhary RN Social History Tobacco Use Types Packs/Day Years [...] is your housing situation today? I have rayaenoch simpson 01/21/[address] you [...] Telephone Encounter - Shoshana Chaudhary RN - 04/09/2025 1:38 PM EDT Per PCP Please refer for home VNA urgently . Home VNA referral generated and given S Liaison DMITRY Newman. No further questions or concerns at this time. * Telephone Encounter - Shoshana Chaudhary RN - 04/09/2025 1:37 PM EDT ----- Message from Cynthia [place] sent at 04/08/2025 4:29 PM EDT ----- Please refer for home VNA urgently documented in this encounter Plan of Treatment Upcoming Encounters Date Type Department Care Team (Late st Contact Info) Description 04/15/2025 11:30 AM EDT Office Visit [facility] [address] [place] [address] [phone] Blanca [place] MD 230 [place], [place] [phone] documented as of this encounter Visit Diagnoses Not on filedocumented in this encounter Additional Health Concerns Assessment Noted Time PHQ-9 Depression Total Score: 3 06/11/20 25 10:47 AM EDT documented as of this encounter Care Teams Grass Farm Laborer Relationship Specialty Start Date End Date Cynthia [place] NP [address] [place] [phone] PCP - General Family Medicine 09/10/23 Katelyn-Luis 01/01/25 documented as of this encounter
--- OUTSIDE RECORDS SUMMARY | 2025-04-12 16:23 | XMS_ITS | Encounter Summary ---
Author Organization [employer] Address [address] [facility] 7t [place] [address] Care Team Providers Care Wrecker Driver Name Role Phone Cynthia [place] NP Primary Care Provider [phone] Reason for Visit * Reason Onset Date Comments Nurse Triage 02/10/2025 Encounter Details Date Type Department Care Team ([facility] st Contact Info) Description 02/10/2025 Telephone [facility] 230 [place], [place] [phone] Cynthia [place] NP 230 [place] [address] Nurse Triage Social History Tobacco Use Types [...] 4:43 PM EDT Call returned to Ally [facility] [phone] patient is asymptomatic. Pt seen by [...] be elevated. Call to Ethan Cristina at [phone], daughter answers, on HIPAA. Not curently with patient. Unsure of what BP readings was today or if it was checked. Asked to call pt at mobile number Telephone Information: Call to Ethan Cristina at [phone] to further triage. Reports has not yet [...] acuity questions The caller accepted this outcome. Clif MAGALYA stated pt is not taking medication and pt does not wanna go to the ER. documented in this encounter Plan of Treatment Upcoming Encounters Date Type Department Care Team (Late st Contact Info) Description 04/15/2025 11:30 AM EDT Office Visit [facility] [address] [place] [address] Blanca [place] MD 230 [place] [address] documented as of this encounter Visit Diagnoses Not on filedocumented in this encounter Additional Health Concerns Assessment Noted Time PHQ-9 Depression Total Score: 3 01/22/20 25 10:47 AM EDT documented as of this encounter Care Teams Wrecker Driver Relationship Specialty Start Date End Date Cynthia [place] NP [address] [place] [address] PCP - General Family Medicine 09/10/23 Katelyn-Luis 01/01/25 documented as of this encounter
--- OUTSIDE RECORDS SUMMARY | 2025-04-12 16:23 | XMS_ITS | Encounter Summary ---
Author Organization [employer] Address [address] [facility] [address] [facility] [address] 7[address] [place] [address] Care Team Providers Care Management Accounts Manager Name Role Phone Cynthia [place] NP Primary Care Provider [phone] Reason for Visit * Reason Comments Med Refill Encounter Details Date Type Department Care Team (Late st Contact Info) Description 05/16/2024 Refill [facility] 230 [place] [address] Oly Guerrero FNP Social History Tobacco Use [...] 11:30 AM EDT Office Visit [facility] [address] [place] [address] [phone] Blanca [place] MD 230 [place], [place] [phone] documented as of this encounter Visit Diagnoses Not on filedocumented in this encounter Additional Health Concerns Assessment Noted Time PHQ-9 Depression Total Score: 0 01/21/20 24 11:17 AM EDT documented as of this encounter Care Teams Management Accounts Manager Relationship Specialty Start Date End Date Cynthia [place] NP [address] [place] [address] [phone] PCP - General Family Medicine 09/10/23 [facility] 01/01/25 documented as of this encounter
--- OUTSIDE RECORDS SUMMARY | 2025-04-12 16:23 | XMS_ITS | Encounter Summary ---
Author Organization [employer] Address [address] [facility] [address] 7[address] [place] [address] Care Team Providers Care Production Line Assembler Name Role Phone Cynthia [place] NP Primary Care Provider Reason for Visit * Reason Comments Med Refill Encounter Details Date Type Department Care Team ([facility] st Contact Info) Description 02/07/2025 Refill [facility] 230 [place] [address] Cynthia [place] NP 230 [place] [address] Social History Tobacco Use Types Packs/Day Years [...] Description 04/15/2025 11:30 AM EDT Office Visit [facility] [address] [place] [phone] Blanca [place] MD 230 [place] [address] documented as of this encounter Visit Diagnoses Not on filedocumented in this encounter Additional Health Concerns Assessment Noted Time PHQ-9 Depression Total Score: 3 01/22/20 25 10:47 AM EDT documented as of this encounter Care Teams Production Line Assembler Relationship Specialty Start Date End Date Cynthia [place] NP [address] [place] [phone] PCP - General Family Medicine 09/10/[address] [facility] 01/01/25 documented as of this encounter
--- OUTSIDE RECORDS SUMMARY | 2025-04-12 16:23 | XMS_ITS | Encounter Summary ---
Author Organization [employer] Address [address] [place] [address] Care Team Providers Care Letter Of Credit Clerk Name Role Phone Jarad Lundy MD Primary Care Provider [phone] Encounter Details Date Type Department Care Team (Late st Contact Info) Description 12/17/2024 Lab Requisition [facility] - Main Lab [address] [facility] [place] [address] Jarad Lundy MD [address] [place] [address] Anemia, unspecified; Chronic kidney disease, stage 3a [...] K/mcL LAB HEMETOLOGY METHOD 12/17/2024 9:04 AM [facility] RBC 3.60(L) 4.50 - 5.50 M/mcL LAB HEMETOLOGY METHOD 12/17/2024 9:04 AM [facility] Hemoglobin 10.7(L) 13.5 - 17.5 g/dL LAB HEMETOLOGY METHOD 12/17/2024 9:04 AM [facility] Hematocrit 32.4(L) 42.0 - 54.0 % LAB HEMETOLOGY METHOD 12/17/2024 9:04 AM [facility] MCV 90.0 79.0 - 98.0 FL LAB HEMETOLOGY METHOD 12/17/2024 9:04 AM [facility] MCH 29.7 27.0 - 32.0 pcg LAB HEMETOLOGY METHOD 12/17/2024 9:04 AM [facility] MCHC 33.0 32.0 - 37.0 g/dL LAB HEMETOLOGY METHOD 12/17/2024 9:04 AM [facility] RDW 16.6(H) 11.0 - 15.0 % LAB HEMETOLOGY METHOD 12/17/2024 9:04 AM [facility] Platelets 335 130 - 400 K/mcL LAB HEMETOLOGY METHOD 12/17/2024 9:04 AM [facility] MPV 9.1 7.0 - 11.0 FL LAB HEMETOLOGY METHOD 12/17/2024 9:04 AM [facility] NRBC 0.0 <1.0 % LAB HEMETOLOGY METHOD 12/17/2024 9:04 AM [facility] NRBC Absolute 0.00 <0.10 K/mcL LAB HEMETOLOGY METHOD 12/17/2024 9:04 AM [facility] Neutrophils Relative 76.7 % LAB HEMETOLOGY METHOD 12/17/2024 9:04 AM [facility] Lymphocytes Relative 16.2 % LAB HEMETOLOGY METHOD 12/17/2024 9:04 AM [facility] Monocytes Relative 5.4 % LAB HEMETOLOGY METHOD 12/17/2024 9:04 AM [facility] Eosinophils Relative 0.8 % LAB HEMETOLOGY METHOD 12/17/2024 9:04 AM [facility] Basophils Relative 0.2 % LAB HEMETOLOGY METHOD 12/17/2024 9:04 AM [facility] Immature Granulocytes Relative 0.7 % LAB HEMETOLOGY METHOD 12/17/2024 9:04 AM [facility] Neutrophils Absolute 8.40(H) 1.50 - 7.00 K/mcL LAB HEMETOLOGY METHOD 12/17/2024 9:04 AM [facility] Lymphocytes Absolute 1.78 1.00 - 5.00 K/mcL LAB HEMETOLOGY METHOD 12/17/2024 9:04 AM [facility] Monocytes Absolute 0.59 0.20 - 1.00 K/mcL LAB HEMETOLOGY METHOD 12/17/2024 9:04 AM [facility] Eosinophils Absolute 0.09 0.00 - 0.50 K/mcL LAB HEMETOLOGY METHOD 12/17/2024 9:04 AM [facility] Basophils Absolute 0.02 0.00 - 0.20 K/mcL LAB HEMETOLOGY METHOD 12/17/2024 9:04 AM [facility] Immature Granulocytes Absolute 0.08(H) 0.00 - 0.03 K/mcL LAB HEMETOLOGY METHOD 12/17/2024 9:04 AM [facility] Blood Venous blood specimen / Unknown Venipuncture / Unknown 12/17/2024 4:55 AM EDT 12/17/2024 8:39 AM EDT us Jarad Lundy MD LAB BLOOD ORDERABLES Final Resu lt [facility] [address] [place] [address], [place] [phone] * (ABNORMAL) Basic metabolic panel (12/17/2024 4:55 AM EDT) Sodium 141 133 - 145 mmol/L LAB CHEMISTRY METHOD 12/17/2024 9:22 AM [facility] Potassium 3.5 3.5 - 5.5 mmol/L LAB CHEMISTRY METHOD 12/17/2024 9:22 AM [facility] Chloride 107 96 - 110 mmol/L LAB CHEMISTRY METHOD 12/17/2024 9:22 AM [facility] CO2 27 21 - 32 mmol/L LAB CHEMISTRY METHOD 12/17/2024 9:22 AM [facility] Anion Gap 7 3 - 11 LAB CHEMISTRY METHOD 12/17/2024 9:22 AM [facility] Glucose 61(L) 70 - 100 mg/dL LAB CHEMISTRY METHOD 12/17/2024 9:22 AM [facility] BUN 26(H) 5 - 25 mg/dL LAB CHEMISTRY METHOD 12/17/2024 9:22 AM [facility] Creatinine 1.61(H) 0.70 - 1.30 mg/dL LAB CHEMISTRY METHOD 12/17/2024 9:22 AM [facility] eGFR 45(L) >=60 mL/min/1. 73m2 LAB CHEMISTRY METHOD 12/17/2024 9:22 AM EDT [facility] Comment:Calculation based on the Chronic Kidney Disease Epidemiology Collaboration (CKD-EPI) equation refit without adjustment for race. BUN/Creatinine Ratio 16.1 LAB CHEMISTRY METHOD 12/17/2024 9:22 AM EDT [facility] Calcium 8.2(L) 8.5 - 10.5 mg/dL LAB CHEMISTRY METHOD 12/17/2024 9:22 AM EDT [facility] Blood Venous blood specimen / Unknown Venipuncture / Unknown 12/17/2024 4:55 AM EDT 12/17/2024 8:39 AM EDT us Jarad Lundy MD LAB BLOOD ORDERABLES Final Resu lt [facility] [address] [place] [address], documented in this encounter Visit Diagnoses Diagnosis Anemia, unspecified Chronic kidney disease, stage 3a (CMS/HCC V24, CMS/HCC V28) documented in this encounter Care Teams Letter Of Credit Clerk Relationship Specialty Start Date End Date Jarad Lundy MD [address] [place] [address] PCP - General Hospitalist Medicine 12/17/24 documented as of this encounter
--- OUTSIDE RECORDS SUMMARY | 2025-04-12 16:23 | XMS_ITS | Encounter Summary ---
Author Organization [employer] Address [address] [place] [address] Care Team Providers Care Bariatric Coordinator Name Role Phone Cynthia Marshall NP Primary Care Provider [phone] Encounter Details Date Type Department Care Team ([facility] st Contact Info) Description 04/11/2024 Orders Only [facility] [address] [place], [place] [phone] Cynthia Marshall NP [address] [place] [address] Stage 3b chronic kidney disease (CMS/HCC) Social [...] Description 04/15/2025 11:30 AM EDT Office Visit [facility] [address] [place] [address] [phone] Blanca Crowley MD [address] [place], [place] [phone] documented as of this encounter Procedures Procedure Name Priority Date/Time Associated Diagnosis Comments BASIC METABOLIC PANEL Routine 07/04/2024 12:13 PM EST Stage 3b chronic kidney disease (CMS/HCC) documented in this encounter Results * (ABNORMAL) Basic Metabolic Panel (07/04/2024 12:13 PM EST) Sodium 141 135 - 145 mmol/L [facility] Potassium 3.4 3.3 - 5.1 mmol/L [facility] Chloride 104 96 - 108 mmol/L [facility] Carbon Dioxide 28 22 - 29 mmol/L [facility] Anion Gap 12 12 - 20 [facility] Urea Nitrogen (BUN) 42(H) 9 - 16 mg/dL [facility] Creatinine, Serum 1.96(H) 0.5 - 1.4 mg/dL [facility] Estimated Glomerular Filt Rate 34 [facility] Comment:Chronic Kidney Disea se: Estimated GFR < 60 mL/min/1.03o9Tniilb Kidney Disease: Estimated GFR < 15 mL/min/1.73m2 Glucose 110 60 - 115 mg/dL [facility] Calcium 9.2 8.4 - 10.2 mg/dL [facility] Blood Venous blood specimen / Unknown 07/04/2024 12:13 PM EST 07/04/2024 12:13 PM EST us Cynthia Marshall SHOWROOM SALES ASSISTANT LAB BLOOD ORDERABLES Final Resul t [facility] [address] [place] [phone] [phone] documented in this encounter Visit Diagnoses Diagnosis Stage 3b chronic kidney disease (CMS/HCC) documented in this encounter Additional Health Concerns Assessment Noted Time PHQ-9 Depression Total Score: 0 01/21/20 24 11:17 AM EDT documented as of this encounter Care Teams Bariatric Coordinator Relationship Specialty Start Date End Date Cynhtia Marshall NP [address] [place] [address] PCP - General Family Medicine 09/10/23 [facility] 01/01/25 documented as of this encounter
--- OUTSIDE RECORDS SUMMARY | 2025-04-12 16:23 | XMS_ITS | Encounter Summary ---
Author Organization [employer] [facility] Address [address] [place] [address] 7t [place] [address] Care Team Providers Care Professor Of Kinesiology Name Role Phone Virginia PerezP Primary Care Provider Iveth Blanca Ferraro MD Primary Care Pro vider Cynthia Marshall NP Primary Care Provider [phone] Encounter Details Date Type Department Care Team (Latest Contact Info) Description 03/31/2021 Abstract [facility] CONVERSIONS Dental, Provider, DDS Social History [...] Description 04/15/2025 11:30 AM EDT Office Visit [facility] [address] [place] [address] Blanca Crowley MD [address] [place] [address] documented as of this encounter Visit Diagnoses Not on filedocumented in this encounter Care Teams Professor Of Kinesiology Relationship Specialty Start Date End Date Virginia Perez FNP PCP - General Family Medicine 04/28/22 03/28/23 Blanca Crowley MD [address] [place] [address] PCP - General Internal Medicine 03/29/23 09/09/23 Cynthia Marshall NP [address] [place] [address] PCP - General Family Medicine 09/10/23 [place] 01/01/25 documented as of this encounter
--- OUTSIDE RECORDS SUMMARY | 2025-04-12 16:23 | XMS_ITS | Encounter Summary ---
Author Organization [employer] Address [address] 7[address] [place] [address] Care Team Providers Care Double End Tenoner Setter Name Role Phone Cynthia Marshall NP Primary Care Provider [phone] Encounter Details Date Type Department Care Team ([facility] st Contact Info) Description 07/04/2024 Orders Only [facility] [address] [place], [place] [phone] Cynthia Marshall NP [address] [place] [address] Stage 3b chronic kidney disease (CMS/HCC) Social [...] Description 04/15/2025 11:30 AM EDT Office Visit [facility] [address] [place] [address] [phone] Blanca Crowley MD [address] [place], [place] [phone] documented as of this encounter Procedures Procedure Name Priority Date/Time Associated Diagnosis Comments NM KIDNEY FLOW/FUNCTION W PHARMACOLOGICAL INTERVENTION Routine 07/31/2024 10:58 AM EST documented in this encounter Results * NM Kidney Flow/Function w/ Pharmacological Intervention (07/31/2024 10:58 AM EST) Anatomical Region Laterality Modality Body Nuclear Medicine 07/31/2024 10:5 8 AM EST Narrative 08/08/2024 10:06 AM EST [address] [address] Nuclear Medicine Report Signed Patient: Ethan Cristina MR#: [id number] 0 : 1950 Acct:[id number] Age/Sex: 73 / M ADM Date: 07/31/24 Loc: [facility] Attending Dr: Kong Duarte MD Ordering Physician: Kong Duarte MD Date of Service: 07/31/24 Procedure(s): NM renal flow w pharm int Accession Number(s): [id number] cc: Kong Duarte MD; Cynthia Marshall NP [...] by: Janice Pate MD 08/08/2024 10:03 AM [facility] Dictated By: Janice Pate Signed By: <Electronically signed by Janice Pate in [place]> 08/08/24 1003 DD/ 1058 TD/TT: 07/31/24 1345 Hazardous Material Specialist: Procedure Note Donotuseinterpreter, Image - 08/08/[address] [address] Nuclear Medicine Report Signed Patient: Tobin Cristina#: [id number] 0 : 3Acct:[id number] Age/Sex: 73 / MADM Date: 07/31/24 Loc: [facility] Attending Dr: Kong Duarte MD Ordering Physician: Kong Duarte MD Date of Service: 07/31/24 Procedure(s): NM renal flow w pharm int Accession Number(s): [id number] cc: Kong Duarte MD; Cynthia Marshall NP [...] by: Janice Pate MD 08/08/2024 10:03 AM [facility] Dictated By: Janice Pate Signed By: <Electronically signed by Janice Pate in OV> 08/08/24 1003 DD/ 1058 TD/TT: 07/31/24 1345 Hazardous Material Specialist: [facility] External Provider IMG NM PROCEDURES Final Result documented in this encounter Visit Diagnoses Diagnosis Stage 3b chronic kidney disease (CMS/HCC) documented in this encounter Additional Health Concerns Assessment Noted Time PHQ-9 Depression Total Score: 0 06/10/20 24 11:17 AM EDT documented as of this encounter Care Teams Double End Tenoner Setter Relationship Specialty Start Date End Date Cynthia Marshall NP [address] [place] [address] PCP - General Family Medicine 09/10/23 [facility] 01/01/25 documented as of this encounter
--- OUTSIDE RECORDS SUMMARY | 2025-04-12 16:23 | XMS_ITS | Encounter Summary ---
Author Organization [employer] [facility] Address [address] [place] [address] 7t [place] [address] Care Team Providers Care Steel Post Installer Name Role Phone Virginia PerezP Primary Care Provider Iveth Blanca Ferraro MD Primary Care Pro vider Cynthia Marshall NP Primary Care Provider [phone] Encounter Details Date Type Department Care Team (Late st Contact Info) Description 01/01/2023 Abstract [facility] MEDICINE [address] [place] [address] Virginia Perez FNP Social History Tobacco Use [...] Description 04/15/2025 11:30 AM EDT Office Visit [facility] [address] [place] [address] Blanca Crowley MD [address] [place], [place] [phone] documented as of this encounter Visit Diagnoses Not on filedocumented in this encounter Care Teams Steel Post Installer Relationship Specialty Start Date End Date Virginia Perez FNP PCP - General Family Medicine 04/28/22 03/28/23 Blanca Crowley MD [address] [place] [address] PCP - General Internal Medicine 03/29/23 09/09/23 Cynthia Marshall NP [address] [place] [address] PCP - General Family Medicine 09/10/23 [facility] 01/01/25 documented as of this encounter
--- OUTSIDE RECORDS SUMMARY | 2025-04-12 16:23 | XMS_ITS | Clinical Summary ---
Author Organization [address] Address [address] [place] [address] Phone Care Team Providers Care Funnel Setter Name Role Phone Jarad Lundy MD Primary Care Provider [phone] Surgical History Surgery Date Site/Laterality Comments SHOULDER SURGERY 06/18/07 PROCEDURE: HISTORICAL SHOULDER SURGERY; COMMENT: Rotator cuff- Dr. Adis King APPENDECTOMY PROCEDURE: HISTORICAL APPENDECTOMY COLONOSCOPY 12/28/2011 PROCEDURE: HISTORICAL COLONOSCOPY; COMMENT: normal UPPER GASTROINTESTINAL ENDOSCOPY 03/14/2016 PROCEDURE: [place] UPPER GI ENDOSCOPY PERFORMED; COMMENT: Visually normal; duodenal biopsies: Minimal nonspecific inflammation Medical History Medical History Date Comments Unspecified essential hypertension DX:Unspecified essential hypertension Basilar artery aneurysm ([facility] V24) 10/07/2013 DX:Basilar artery aneurysm ([facility]) Type 2 diabetes, diet contro lled ([facility] V24, [facility] V28) 10/07/2013 DX:Type 2 diabetes, diet co ntrolled ([facility]) Type 2 diabetes, diet contro lled ([facility] V24, [facility] V28) 10/07/2013 DX:Type 2 diabetes, diet co ntrolled ([facility]) Controlled type 2 diabetes w ith renal [...] EDT Type 2 diabetes mellitus without complications ([facility] V24, [facility] V28) HEMOGLOBIN A1C Routine 12/19/2024 4:48 AM EDT Type 2 diabetes mellitus without complications ([facility] V24, [facility] V28) from Last 3 Months or Most Recently Relevant to Health Maintenance Results * Hemoglobin A1c (12/19/2024 4:48 AM EDT) Hemoglobin A1C 5.7 <6.5 % LAB CHEMISTRY METHOD 12/19/2024 11:[address] [facility] Mean Bld Glu Estim. 117 mg/dL LAB CHEMISTRY METHOD 12/19/2024 11:[address] [facility] Blood Venous blood specimen / Unknown Venipuncture / Unknown 12/19/2024 4:48 AM EDT 12/19/2024 7:19 AM EDT us Jarad Lundy MD LAB BLOOD ORDERABLES Final Resu lt [facility] [address] [place] [address], [place] [phone] * (ABNORMAL) Comprehensive metabolic panel (12/19/2024 4:48 AM EDT) Sodium 141 133 - 145 mmol/L LAB CHEMISTRY METHOD 12/19/2024 8:20 AM [facility] Potassium 3.3(L) 3.5 - 5.5 mmol/L LAB CHEMISTRY METHOD 12/19/2024 8:20 AM [facility] Chloride 106 96 - 110 mmol/L LAB CHEMISTRY METHOD 12/19/2024 8:20 AM [facility] CO2 26 21 - 32 mmol/L LAB CHEMISTRY METHOD 12/19/2024 8:20 AM [facility] Anion Gap 9 3 - 11 LAB CHEMISTRY METHOD 12/19/2024 8:20 AM [facility] Glucose 74 70 - 100 mg/dL LAB CHEMISTRY METHOD 12/19/2024 8:20 AM [facility] BUN 26(H) 5 - 25 mg/dL LAB CHEMISTRY METHOD 12/19/2024 8:20 AM [facility] Creatinine 1.68(H) 0.70 - 1.30 mg/dL LAB CHEMISTRY METHOD 12/19/2024 8:20 AM [facility] eGFR 43(L) >=60 mL/min/1. 73m2 LAB CHEMISTRY METHOD 12/19/2024 8:20 AM [facility] Comment:Calculation based on the Chronic Kidney Disease Epidemiology Collaboration (CKD-EPI) equation refit without adjustment for race. BUN/Creatinine Ratio 15.5 LAB CHEMISTRY METHOD 12/19/2024 8:20 AM [facility] Calcium 8.1(L) 8.5 - 10.5 mg/dL LAB CHEMISTRY METHOD 12/19/2024 8:20 AM [facility] AST (SGOT) 20 10 - 42 unit/L LAB CHEMISTRY METHOD 12/19/2024 8:20 AM [facility] ALT (SGPT) 18 10 - 60 unit/L LAB CHEMISTRY METHOD 12/19/2024 8:20 AM [facility] Alkaline Phosphatase 210(H) 42 - 121 unit/L LAB CHEMISTRY METHOD 12/19/2024 8:[address] [facility] Total Protein 5.3(L) 6.0 - 8.0 g/dL LAB CHEMISTRY METHOD 12/19/2024 8:[address] [facility] Albumin 2.0(L) 3.2 - 5.0 g/dL LAB CHEMISTRY METHOD 12/19/2024 8:[address] [facility] Total Bilirubin 0.6 0.0 - 1.4 mg/dL LAB CHEMISTRY METHOD 12/19/2024 8:[address] [facility] Blood Venous blood specimen / Unknown Venipuncture / Unknown 12/19/2024 4:48 AM EDT 12/19/2024 7:19 AM EDT us Jarad Lundy MD LAB BLOOD ORDERABLES Final Resu lt [facility] [address] [place] [address], from Last 3 Months or Most Recently Relevant to Health Maintenance Insurance MEDICAID - [facility] [place] [id number] Care Teams Funnel Setter Relationship Specialty Start Date End Date Jarad Lundy MD [address] [place] [address] PCP - General Hospitalist Medicine 12/17/24
--- OUTSIDE RECORDS SUMMARY | 2025-04-12 16:23 | XMS_ITS | Encounter Summary ---
Author Organization [employer] Address [address] [facility] 7t [place] [address] Care Team Providers Care Client Success Specialist Name Role Phone Cynthia Marshall NP Primary Care Provider [phone] Reason for Visit * Reason Onset Date Comments Nurse Triage 02/12/2025 Encounter Details Date Type Department Care Team ([facility] st Contact Info) Description 02/12/2025 Telephone [facility] [address] [place], [place] [phone] Cynthia Marshall NP [address] [place] [address] Nurse Triage Social History Tobacco Use Types [...] PCP for review. * Telephone Encounter - sAhley Solis RN - 02/12/2025 2:59 PM EDT [...] caller accepted this outcome. Contact Ally at [phone] documented in this encounter Plan of Treatment Upcoming Encounters Date Type Department Care Team (Late st Contact Info) Description 04/15/2025 11:30 AM EDT Office Visit [facility] [address] [place], [place] [phone] Blanca Crowley MD [address] [place] [address] documented as of this encounter Visit Diagnoses Not on filedocumented in this encounter Additional Health Concerns Assessment Noted Time PHQ-9 Depression Total Score: 3 01/22/20 25 10:47 AM EDT documented as of this encounter Care Teams Client Success Specialist Relationship Specialty Start Date End Date Cynthia Marshall NP [address] [place] [address] PCP - General Family Medicine 1/29/24 [facility] 01/01/25 documented as of this encounter
--- OUTSIDE RECORDS SUMMARY | 2025-04-12 16:23 | XMS_ITS | Encounter Summary ---
Author Organization [employer] Address [address] [place] [address] Care Team Providers Care Spray Unit Feeder Name Role Phone Jarad Lundy MD Primary Care Provider Encounter Details Date Type Department Care Team (Latest Contact Info) Description 12/19/2024 Lab Requisition [facility] - Main Lab [address] [place] [address] Jarad Lundy MD [address] [place] [id number] Type 2 diabetes mellitus without complications ([facility] V24, [facility] V28) Social History Tobacco Use Types [...] EDT Type 2 diabetes mellitus without complications ([facility] V24, [facility] V28) HEMOGLOBIN A1C Routine 12/19/2024 4:48 AM EDT Type 2 diabetes mellitus without complications ([facility] V24, [facility] V28) COMPREHENSIVE METABOLIC PANEL Routine 12/19/2024 4:48 AM EDT Type 2 diabetes mellitus without complications ([facility] V24, [facility] V28) documented in this encounter Results * Hemoglobin A1c (12/19/2024 4:48 AM EDT) Pathologist [facility] Hemoglobin A1C 5.7 <6.5 % LAB CHEMISTRY METHOD 12/19/2024 11:02 AM T [facility] Mean Bld Glu Estim. 117 mg/dL LAB CHEMISTRY METHOD 12/19/2024 11:[address] [facility] Blood Venous blood specimen / Unknown Venipuncture / Unknown 12/19/2024 4:48 AM EDT 12/19/2024 7:19 AM EDT us Jarad Lundy MD LAB BLOOD ORDERABLES Final Resu lt [facility] [address] [place] [address], * (ABNORMAL) Comprehensive metabolic panel (12/19/2024 4:48 AM EDT) [facility] Sodium 141 133 - 145 mmol/L LAB CHEMISTRY METHOD 12/19/2024 8:[address] [facility] Potassium 3.3(L) 3.5 - 5.5 mmol/L LAB CHEMISTRY METHOD 12/19/2024 8:[address] [facility] Chloride 106 96 - 110 mmol/L LAB CHEMISTRY METHOD 12/19/2024 8:[address] [facility] CO2 26 21 - 32 mmol/L LAB CHEMISTRY METHOD 12/19/2024 8:[address] [facility] Anion Gap 9 3 - 11 LAB CHEMISTRY METHOD 12/19/2024 8:[address] [facility] Glucose 74 70 - 100 mg/dL LAB CHEMISTRY METHOD 12/19/2024 8:[address] [facility] BUN 26(H) 5 - 25 mg/dL LAB CHEMISTRY METHOD 12/19/2024 8:[address] [facility] Creatinine 1.68(H) 0.70 - 1.30 mg/dL LAB CHEMISTRY METHOD 12/19/2024 8:[address] [facility] eGFR 43(L) >=60 mL/min/1. 73m2 LAB CHEMISTRY METHOD 12/19/2024 8:[address] [facility] Comment:Calculation based on the Chronic Kidney Disease Epidemiology Collaboration (CKD-EPI) equation refit without adjustment for race. BUN/Creatinine Ratio 15.5 LAB CHEMISTRY METHOD 12/19/2024 8:[address] [facility] Calcium 8.1(L) 8.5 - 10.5 mg/dL LAB CHEMISTRY METHOD 12/19/2024 8:[address] [facility] AST (SGOT) 20 10 - 42 unit/L LAB CHEMISTRY METHOD 12/19/2024 8:[address] [facility] ALT (SGPT) 18 10 - 60 unit/L LAB CHEMISTRY METHOD 12/19/2024 8:[address] [facility] Alkaline Phosphatase 210(H) 42 - 121 unit/L LAB CHEMISTRY METHOD 12/19/2024 8:[address] [facility] Total Protein 5.3(L) 6.0 - 8.0 g/dL LAB CHEMISTRY METHOD 12/19/2024 8:[address] [facility] Albumin 2.0(L) 3.2 - 5.0 g/dL LAB CHEMISTRY METHOD 12/19/2024 8:[address] [facility] Total Bilirubin 0.6 0.0 - 1.4 mg/dL LAB CHEMISTRY METHOD 12/19/2024 8:[address] [facility] Blood Venous blood specimen / Unknown Venipuncture / Unknown 12/19/2024 4:48 AM EDT 12/19/2024 7:19 AM EDT us Jarad Lundy MD LAB BLOOD ORDERABLES Final Resu lt [facility] [address] [place] [address], * (ABNORMAL) Complete blood count (12/19/2024 4:48 AM EDT) [facility] Signature WBC 9.1 4.8 - 10.8 K/mcL LAB HEMETOLOGY METHOD 12/19/2024 7:52 AM EDT [facility] RBC 3.60(L) 4.50 - 5.50 M/mcL LAB HEMETOLOGY METHOD 12/19/2024 7:52 AM EDT [facility] Hemoglobin 10.3(L) 13.5 - 17.5 g/dL LAB HEMETOLOGY METHOD 12/19/2024 7:52 AM EDT [facility] Hematocrit 31.6(L) 42.0 - 54.0 % LAB HEMETOLOGY METHOD 12/19/2024 7:52 AM EDT [facility] MCV 88.8 79.0 - 98.0 FL LAB HEMETOLOGY METHOD 12/19/2024 7:52 AM EDT [facility] MCH 28.9 27.0 - 32.0 pcg LAB HEMETOLOGY [facility] MCHC 32.6 32.0 - 37.0 g/dL LAB HEMETOLOGY METHOD 12/19/2024 7:52 AM EDT [facility] RDW 16.2(H) 11.0 - 15.0 % LAB HEMETOLOGY METHOD 12/19/2024 7:52 AM EDT [facility] Platelets 308 130 - 400 K/mcL LAB HEMETOLOGY METHOD [facility]24 [facility] MPV 9.1 7.0 - 11.0 FL LAB HEMETOLOGY METHOD 12/19/2024 7:52 AM EDT [facility] NRBC 0.0 <1.0 % LAB HEMETOLOGY METHOD 12/19/2024 7:52 AM EDT [facility] NRBC Absolute 0.00 <0.10 K/mcL LAB HEMETOLOGY METHOD 12/19/2024 7:52 AM EDT [facility] Blood Venous blood specimen / Unknown Venipuncture / Unknown 12/19/2024 4:48 AM EDT 12/19/2024 7:19 AM EDT us Jarad Lundy MD LAB BLOOD ORDERABLES Final Resu lt [facility] [address] [place] [address], [place] [phone] documented in this encounter Visit Diagnoses Diagnosis Type 2 diabetes mellitus without complications (CMS/HCC V24, CMS/HCC V28) documented in this encounter Care Teams Spray Unit Feeder Relationship Specialty Start Date End Date Jarad Lundy MD [address] [place] [phone] PCP - General Hospitalist Medicine 12/17/24 documented as of this encounter
--- OUTSIDE RECORDS SUMMARY | 2025-04-12 16:23 | XMS_ITS | Encounter Summary ---
Author Organization [employer] Address [address] [facility] 7t [place] [address] Care Team Providers Care Synchronizer Name Role Phone Cynthia Marshall NP Primary Care Provider [phone] Encounter Details Date Type Department Care Team (Late st Contact Info) Description 02/02/[address] [facility] [address] [place] [address] Severino Santoro, PharmD [address] [place] [address] Social History Tobacco Use Types Packs/Day Years [...] Description 04/15/2025 11:30 AM EDT Office Visit [facility] [address] [place] [phone] Blanca Corwley MD [address] [place] [address] documented as of this encounter Visit Diagnoses Not on filedocumented in this encounter Additional Health Concerns Assessment Noted Time PHQ-9 Depression Total Score: 3 01/22/20 25 10:47 AM EDT documented as of this encounter Care Teams Synchronizer Relationship Specialty Start Date End Date Cynthia Marshall NP [address] [place] [phone] PCP - General Family Medicine 09/10/23 [facility] 01/01/25 documented as of this encounter
--- OUTSIDE RECORDS SUMMARY | 2025-04-12 16:23 | XMS_ITS | Encounter Summary ---
Author Organization [employer] Address [address] [facility] [address] [place] [address] Care Team Providers Care Cena Name Role Phone Cynthia Marshall NP Primary Care Provider [phone] Encounter Details Date Type Department Care Team (Late st Contact Info) Description 12/31/2023 Orders Only [facility] [address] [place] [address] Corby Jacobs MD [address] [place] [address] Elevated blood uric acid level (Primary Dx) [...] Description 04/15/2025 11:30 AM EDT Office Visit [facility] [address] [place] [address] [phone] Blanca Crowley MD [address] [place], [place] [phone] documented as of this encounter Visit Diagnoses Diagnosis Elevated blood uric acid level- Primary documented in this encounter Additional Health Concerns Assessment Noted Time PHQ-9 Depression Total Score: 0 01/11/20 23 9:39 AM EDT documented as of this encounter Care Teams Cena Relationship Specialty Start Date End Date Cynthia Marshall NP [address] [place] [address] [phone] PCP - General Family Medicine 09/10/23 [facility] 01/01/25 documented as of this encounter
--- OUTSIDE RECORDS SUMMARY | 2025-04-12 16:23 | XMS_ITS | Encounter Summary ---
Author Organization [employer] Address [address] [facility] 7[address] [place] [address] Care Team Providers Care Plan Nurse Name Role Phone Cynthia Marshall NP Primary Care Provider [phone] Reason for Visit * Reason Onset Date Comments Returning Call 01/12/2025 Encounter Details Date Type Department Care Team ([facility] st Contact Info) Description 01/12/2025 Telephone [facility] [address] [place], [place] [phone] Cynthia Marshall NP [address] [place], [place] [phone] Returning Call Social History Tobacco Use Types [...] 11:30 AM EDT Office Visit [facility] [address] [place] [address] Blanca Crowley MD [address] [place] [address] documented as of this encounter Visit Diagnoses Not on filedocumented in this encounter Additional Health Concerns Assessment Noted Time PHQ-9 Depression Total Score: 0 01/21/20 24 11:17 AM EDT documented as of this encounter Care Teams Plan Nurse Relationship Specialty Start Date End Date Cynthia Marshall NP [address] [place] [address] PCP - General Family Medicine 09/10[facility]23 [facility] documented as of this encounter
--- OUTSIDE RECORDS SUMMARY | 2025-04-12 16:23 | XMS_ITS | Encounter Summary ---
Author Organization [employer] Address [address] [place] [address] Care Team Providers Care Associate Biological Sales Name Role Phone Cynthia Marshall NP Primary Care Provider [phone] Encounter Details Date Type Department Care Team ([facility] st Contact Info) Description 04/06/2025 Telephone [facility] [address] [place] [address] Cynthia Marshall NP [address] [place] [address] Social History Tobacco Use Types Packs/Day Years [...] Telephone Encounter - Elizabeth Hwang RN - 04/07/2025 9:29 AM EDT Pt had a walk test completed on 03/13/25 and Oxygen has been ordered for pt through [employer]. Pt left [facility] 04/07/25 during CHF treatment. T/C to pt's daughter who accepts HDF with pcp today. States she will advise pt and call to reschedule if needed. Pharmacy advised of scheduled HDF. [facility] draft printed for pcp review. * Telephone Encounter - Renata Collazo RN [...] be admitted so will send message to [facility] nurses to follow up for appointments documented in this encounter Plan of Treatment Upcoming Encounters Date Type Department Care Team (Late st Contact Info) Description 04/15/2025 11:30 AM EDT Office Visit [facility] [address] [place] [address] Blanca Crowley MD [address] [place] [address] documented as of this encounter Visit Diagnoses Not on filedocumented in this encounter Additional Health Concerns Assessment Noted Time PHQ-9 Depression Total Score: 3 01/22/20 10:47 AM EDT documented as of this encounter Care Teams Associate Biological Sales Relationship Specialty Start Date End Date Cynthia Marshall NP [address] [place] [id number] PCP - General Family Medicine 09/10/23 [facility] documented as of this encounter
--- OUTSIDE RECORDS SUMMARY | 2025-04-12 16:23 | XMS_ITS | Clinical Summary ---
Author Organization [employer] Address [address] [place] [address] [address] [place] [address] Care Team Providers Care Advertising Rep Name Role Phone Cynthia Marshall NP Primary Care Provider [phone] Allergies No known active allergies Medications fluticasone (Flonase) 50 MCG/ACT nasal sprayIndication s:Nasal congestion INSTILL 1 SPRAY IN EACH NOSTRIL ONCE DAILY IN THE MORNING 16 g 08/22/19 24 Active Blood Glucose Monitoring Suppl (FreeStyle [place] Lite) w/Device kitIndications: Type 2 diabetes mellitus with other specified complication, without long-term current use of insulin ([facility]) Use to test blood sugar bid dx dm 1 kit 12/05/19 24 Active glucose blood (OneTouch Ultra) test stripIndication s:Type 2 diabetes mellitus with other specified complication, without long-term current use of insulin ([facility]) test blood sugar as needed, in the morning before breakfast 100 each 11 12/05/19 24 Active Lancets 33G miscIndications :Type 2 diabetes mellitus with other specified complication, without long-term current use of insulin (CMS/HCC) 100 each 2 times daily. 60 each 12/05/19 24 Active Blood Pressure Monitoring (Omron 3 Series BP Monitor) device USE TO CHECK BLOOD PRESSURE DAILY 1 each 12/27/19 24 Active Diclofenac Sodium 1 % gelIndications: Chronic pain of left knee Apply thin layer by topical route (quantity as directed on package insert) to affected area of pain 3 times daily as needed. 50 g 3 04/24/20 24 Active GaviLAX 17 GM/SCOOP powder Take 17 g by mouth Once per day. 10/27/19 25 Active apixaban (Eliquis) 2.5 MG tabletIndicatio ns:Paroxysmal atrial fibrillation (CMS/HCC) Take 1 tablet (2.5 mg) by mouth 2 times daily. 180 tablet 1 01/22/20 25 Active lisinopril 40 MG tabletIndicatio ns:Essential hypertension TAKE 1 TABLET BY MOUTH EVERY MORNING 90 tablet 1 01/22/20 25 Active omeprazole (PriLOSEC) [address] capsule Take 1 capsule (40 mg) by mouth in the morning and 1 capsule (40 mg) in the evening. Do not crush or chew. 60 capsule 02/03/20 25 Active atorvastatin (Lipitor) 40 MG tablet Take 1 tablet (40 mg) by mouth Once per day. 90 tablet 2 02/03/20 25 Active calcitriol (Rocaltrol) 0.25 MCG capsule TAKE 1 CAPSULE BY MOUTH EVERY OTHER DAY 45 capsule 1 02/03/20 25 Active docusate sodium (Colace) 100 MG capsule Take 1 capsule (100 mg) by mouth if needed each day for constipation . TAKE 1 CAPSULE BY MOUTH EVERY DAY AT BEDTIME 90 capsule 02/03/20 25 Active carvedilol (Coreg) 6.25 MG tablet Take 1 tablet (6.25 mg) by mouth 2 times daily. 180 tablet 02/05/20 25 Active amLODIPine (Norvasc) 5 MG tablet Take 1 tablet (5 mg) by mouth Once per day. 90 tablet 02/05/20 25 Active ferrous sulfate 325 (65 Fe) MG tablet Take 1 tablet by mouth in the morning and 1 tablet in the evening. Active furosemide (Lasix) 40 MG tabletIndicatio ns:Bilateral lower extremity edema Take 1 tablet (40 mg) by mouth 2 times daily for 14 days. 28 tablet 04/09/20 25 025 Active FeroSul 325 (65 Fe) MG tablet TAKE 1 TABLET BY MOUTH EVERY OTHER DAY WITH ORANGE JUICE 90 tablet 3 03/07/20 23 025 Discontinued(Me d list cleanup (will not trigger notification to Pharmacy)) furosemide (Lasix) 40 MG tablet Take 1 tablet (40 mg) by mouth Once per day. 90 tablet 02/05/20 25 025 Discontinued ferrous sulfate 325 (65 Fe) MG EC tablet Take 1 tablet by mouth in the morning and 1 tablet in the evening. Do not crush, chew, or split. 025 Discontinued(En tered in error) furosemide (Lasix) 40 MG tabletIndicatio ns:Acute on chronic congestive heart failure, unspecified heart failure type (CMS/HCC) Take 1 tablet (40 mg) by mouth Once per day. 30 tablet 04/07/20 25 025 Discontinued(Re order (will not trigger notification to Pharmacy)) Active Problems Problem Noted Date Diagnosed Date CHF exacerbation 04/06/2025 Assessment & Plan (04/08/2025 4:26 PM EDT): Severe, I reviewed my recommendation that pt is admitted to hospital for IV diuresis Pt declines Pt requests I call daughter. Discussion with estrellitaugher about medications at home, management and recommendation for hospital care . Daughter states she understands that without in patient care prognosis is poor including . Assessment & Plan (04/06/2025 3:47 PM EDT): [...] scanned in chart, Reviewed elder services in [place] Continue home VNA, Rectal bleeding 01/21/2025 Gastrointestinal [...] pt is living alone at this time [employer] resources given to family Referral to [facility] elder services Home VNA as quickly as [...] Son to reconcile meds with pharmacy, to apple picker and continue vancomycin as ordered from hosp [...] segment; no vavular pathology. Assessment & Plan (04/08/2025 4:25 PM EDT): Urgency of diuresis reviewed Pt adamantly declines hosp care despite dayan discussion regarding poor outcomes including . Pt uncertain of home regimen, Hospice and palliative care option reivewed Pt is agreeable to home VNA Assessment & Plan (01/27/2025 7:57 PM EDT): [...] after discharge. Spoke with DMITRY Nagy at [facility] and they will be waiting for [...] Plan (10/08/2023 5:16 PM EST): Lesion right moravian suspicious for AK, referral to derm Stage [...] Encounters Date Type Department Care Team Description 04/11/2025 10:40 AM EDT Office Visit [facility] [address] [place] [phone] Sebastián Ahn MD Pedal edema (Primary Dx) 04/11/2025 Travel 04/09/2025 8:40 AM EDT Office Visit [facility] [address] [place] [phone] Apryl Ruelas DO Scrotal edema (Primary Dx); Bilateral lower extremity edema 04/09/2025 Telephone [facility] [address] [place] [address] Shoshana Chaudhary RN 04/09/2025 Travel 04/07/2025 2:45 PM EDT Office Visit [address] [address] Cynthia Marshall NP Acute on chronic congestive heart failure, unspecified heart failure type (CMS/HCC) (Primary Dx); Type 2 diabetes mellitus with other specified complication, without long-term current use of insulin ([facility]/HCC); Paroxysmal atrial fibrillation (CMS/HCC); CHF (congestive heart failure), NYHA class II, acute on chronic, combined ([facility]/HCC); CKD stage 4 secondary to hypertension (CMS/HCC); Moderate dementia with anxiety, unspecified dementia type (CMS/HCC) 04/07/2025 Travel 04/06/2025 3:20 PM EDT Office Visit [facility] [address] [place] [phone] Blanca Mills MD Acute on chronic congestive heart failure, unspecified heart failure type (CMS/HCC) (Primary Dx) 04/06/2025 Telephone [facility] [address] [place] [address] yCnthia Marshall NP 04/06/2025 Travel 04/04/2025 Orders Only GENERIC EXTERNAL DATA DEPARTMENT Provider, Generic External Data 03/31/[address] [address] Cynthia Marshall NP Call Back Request 03/30/2025 Orders Only [facility] External Provider, [facility] 03/30/2025 Travel 03/25/2025 9:40 AM EDT Office Visit [facility] [address] [place] [phone] Corby Jacobs MD Hypoxia (Primary Dx) 03/25/[address] [address] Cynthia Marshall NP Call Back Request 03/25/2025 Orders Only GENERIC EXTERNAL DATA DEPARTMENT Provider, Generic External Data 03/25/2025 Travel 03/24/2025 Telephone [facility] [address] Cynthia Marshall NP Durable Medical Equipment 03/23/2025 Orders Only [facility] External Provider, [facility] 03/13/2025 9:30 AM EDT Clinical Support [address] [address] Shoshana Chaudhary, DMITRY CHF (congestive heart failure), NYHA class II, acute on chronic, combined ([facility]) [I50.43] 03/13/2025 Travel 03/10/2025 10:30 AM EDT Clinical Support [address] [address] Elizabeth Hwang RN Primary hypertension 03/10/[address] [address] Cynthia Marshall NP Durable Medical Equipment 03/10/2025 Travel 03/05/[address] [address] Cynthia Marshall NP Durable Medical Equipment 03/04/2025 10:15 AM EDT Office Visit [address] [address] Cynthia Marshall NP CHF (congestive heart failure), NYHA class II, acute on chronic, combined ([facility]) (Primary Dx); Essential hypertension; Paroxysmal atrial fibrillation ([facility]); Type 2 diabetes mellitus with other specified complication, without long-term current use of insulin ([facility]); Dyspnea on exertion; Lower extremity edema 03/04/[address] [address] Shoshana Chaudhary RN 03/04/2025 Travel 03/03/[address] [address] Kecia Phillips MA CHARTPREP 02/26/[address] [address] Cynthia Marshall, MARLENE Need for echo 02/12/2025 Telephone [facility] [place] [address] Cynthia Marshall NP Nurse Triage 02/10/2025 Telephone [facility] [address] [place] [address] Cynthia Marshall NP Nurse Triage 02/07/2025 Refill [facility] [address] [place] [address] Cynthia Marshall NP 02/06/2025 Telephone [facility] [address] [place] [address] Cynthia Marshall NP FYI 02/05/2025 Telephone [facility] [address] [place] [address] Cynthia Marshall NP requesting call back 02/04/2025 10:45 AM EDT Office Visit [facility] [address] [place] [address] Blanca Mills MD Type 2 diabetes mellitus with stage 3a chronic kidney disease, without long-term current use of insulin ([facility]); Primary hypertension; Chronic systolic heart failure ([facility]/HCC); Hypokalemia; Hypomagnesemia 02/04/2025 Travel 02/04/2025 Refill [facility] [address] [place] [address] Rose Anderson, PharmD 02/03/2025 Telephone [facility] [address] [place] [address] Kecia Phillips MA CHARTPREP 02/02/2025 Orders Only [facility] [address] [place] [address] Severino Santoro, PharmD 02/02/2025 Telephone [facility] [address] [place] [phone] Cynthia Marshall, MARLENE Call Back Request 02/02/2025 Refill [facility] [address] [place] [address] Cynthia Marshall, PAINTER SUPERVISOR 01/30/2025 Telephone [facility] [address] [place] [address] Cynthia Marshall NP Verbal Order 01/26/2025 1:20 PM EDT Office Visit [facility] [address] [address] Alena Myers MD Primary hypertension (Primary Dx); CHF (congestive heart failure), NYHA class II, acute on chronic, combined ([facility]/HCC) 01/26/[address] [address] Cynthia Marshall NP Nurse Triage 01/26/2025 Telephone [facility] [address] [place] [phone] Sebastián Ahn MD 01/26/2025 Travel 01/22/[address] [address] Cynthia Marshall NP fyi 01/21/2025 9:45 AM EDT Office Visit [address] [address] Cynthia Marshall NP CHF (congestive heart failure), NYHA class I, chronic, combined ([facility]/HCC) (Primary Dx); Hyperparathyroidism ([facility]); CVA, old, cognitive deficits; Rectal bleeding; Gastrointestinal hemorrhage associated with chronic gastritis; Type 2 diabetes mellitus with stage 3a chronic kidney disease, without long-term current use of insulin ([facility]); Paroxysmal atrial fibrillation ([facility]); Essential hypertension; KELSEY (acute kidney injury) ([facility]) 01/21/2025 Travel 01/20/[address] [address] Cynthia Marshall NP Verbal Order 01/20/[address] [address] Cynthia Marshall NP FYI ; Call Back Reqeust 01/16/2025 11:00 AM EDT Office Visit [facility] [address] [address] Sebastián Ahn MD Pedal edema (Primary Dx); Hypoalbuminemia; Mediastinal mass 01/16/2025 Orders Only GENERIC EXTERNAL DATA DEPARTMENT Provider, Generic External Data 01/16/2025 Travel 01/15/2025 Refill [facility] [address] [place] [address] Rose Anderson, [place] 01/15/2025 Telephone [facility] [address] [place] [address] Cynthia Marshall, MARLENE FYI 01/13/2025 Telephone [facility] [address], [place] [phone] Cynthia Marshall NP Discharge summary (Request for Discharge summary) 01/12/2025 Telephone [facility] [address] [place] [address] Cynthia Marshall NP Returning Call from Last 3 Months Immunizations Immunization Administration [...] Mass Index 31.87 04/07/2025 2:45 PM EDT Plan of Treatment Upcoming Encounters Date Type Department Care Team (Late st Contact Info) Description 04/15/2025 11:30 AM EDT Office Visit [facility] [address] [place] [address] Blanca Crowley MD [address] [place] [phone] Health Maintenance Due Date Last Done Comments [...] 06/14, 07/11/2021 Depression Screening 01/21/2026 01/21/2025, 01/22/20 25 SDOH Screening 01/21/2026 01/21/2025 Tobacco Screening 04/09/2026 04/09/2025 DTaP/Tdap/Td Vaccines (3 - Td or Tdap) [...] complication, without long-term current use of insulin ([facility]) URINALYSIS, COMPLETE, WITH REFLEX TO CULTURE Routine [...] without long-term current use of insulin (CMS/HCC) POCT GLUCOSE Routine 02/04/2025 10:29 AM EDT [...] without long-term current use of insulin (CMS/HCC) PTH, INTACT WITHOUT CALCIUM Routine 01/16/2025 11:31 AM EDT CBC WITH AUTO DIFFERENTIAL Routine 01/16/2025 11:31 AM EDT COMPREHENSIVE METABOLIC PANEL Routine 01/16/2025 11:31 AM EDT Renovascular hypertension HEMOGLOBIN A1C Routine 01/16/2025 11:31 AM EDT Type 2 diabetes mellitus with other specified complication, without long-term current use of insulin (CMS/HCC) LIPID PANEL, STANDARD Routine 01/16/2025 11:31 AM EDT Type 2 diabetes mellitus with other specified complication, without long-term current use of insulin (CMS/HCC) from Last 3 Months Results * POCT Glucose (04/07/2025 2:48 PM EDT) Only the most recent of4 resultswithin the time period is included. Glucose Blood, POC 170 60 - 200 mg/dL QC Media Lot # [id number] Lot# Expiration Date Blood Capillary blood specimen / Unknown 04/07/2025 2:48 PM EDT Cynthia Marshall NP POINT OF CARE TEST ENTER/EDIT OR DERABLES Final Result * (ABNORMAL) Urinalysis, Complete, with Reflex to Culture (04/04/2025 10:11 AM EDT) Color Urine Yellow [facility] Appearance Urine Clear [facility] PH 6.0 5.0 - 9.0 [facility] Glucose Urine UA Negative Negative mg/dL [facility] Urine Blood Negative Negative [facility] Specific [place] - Urine 1.015 1.005 - 1.025 [facility] Urine Protein 100 (2+)(A) Neg-Trace mg/dL [facility] Urine Ketones Negative Negative mg/dL [facility] Nitrite Urine Negative Negative [facility] Leukocyte Esterase Urine Trace(A) Negative [facility] RBC Urine 0-2 0 - 2 /HPF [facility] Urine WBC 0-5 0 - 5 /HPF [facility] Urine Squamous Epithelial Cell 0-2 0 - 2 /HPF [facility] Urine Bacteria None Seen None Seen [facility] Hyaline Casts, Urine 0-2 0 - 2 /LPF [facility] 04/04/2025 10:1 1 AM EDT 04/04/2025 10:16 AM EDT Narrative [facility] - 04/04/2025 10:24 AM EDT Urine, Clean Catch us Generic External Data Provider LAB URINE ORDERAB LES Final Result [facility] [address] [place] [address] [phone] * XR Chest 2 Views (04/04/2025 9:51 AM EDT) Only the most recent of2 resultswithin the time period is included. Anatomical Region Laterality Modality Chest Radiographic Smitha ging 04/04/2025 9:51 AM EDT Narrative 04/04/2025 9:52 AM EDT [address] [address] XRay Report Signed Patient: Ethan Cristina MR#: [id number] 0 : 1950 Acct:[id number] Age/Sex: 74 / M ADM Date: 04/04/25 Loc: HO.ED Attending Dr: Ordering Physician: Ernestine Vazquez NP Date of Service: 04/04/25 Procedure(s): XR chest 2V Accession Number(s): [id number] cc: Ernestine Vazquez NP; Blanca Crowley MD CLINICAL HISTORY: sob Exam: PA and lateral views of the chest. Comparison: January 22, 2025. Findings: Interval increase in size of a moderate-sized right pleural effusion. There is a small left pleural effusion. There is obscuration of the inferior right heart border in the right hemidiaphragm due to the pleural effusion. Cardiac silhouette is [id number] enlarged. Central interstitial markings are diffusely prominent. Degenerative change of both shoulder joints. Impression: Congestive heart failure. This document has been electronically signed by: Ajith Muniz MD on 04/04/2025 09:51:59 Dictated By: Ajith Muniz MD Signed By: <Electronically signed by Ajith Muniz MD in OV> 04/04/2552 DD/ 0 TD/TT: 04/04/25950 Intermediate Teacher: Procedure Note Donotuseinterpreter, Image - 04/04/[address] [address] XRay Report Signed Patient: Ethan CristinaMR#: [id number] 0 : 1950cct:[id number] Age/Sex: 74 / MADM Date: 04/04/25 Loc: HO.ED Attending Dr: Ordering Physician: Ernestine Vazquez NP Date of Service: 04/04/25 Procedure(s): XR chest 2V Accession Number(s): [id number] cc: Ernestine Vazquez NP; Blanca Crowley MD CLINICAL HISTORY: sob Exam: PA and lateral views of the chest. Comparison: January 22, 2025. Findings: Interval increase in size of a moderate-sized right pleural effusion. There is a small left pleural effusion. There is obscuration of the inferior right heart border in the right hemidiaphragm due to the pleural effusion. Cardiac silhouette is [id number] enlarged. Central interstitial markings are diffusely prominent. Degenerative change of both shoulder joints. Impression: Congestive heart failure. This document has been electronically signed by: Ajith Muniz MD on 04/04/2025 09:51:59 Dictated By: Ajith Muniz MD Signed By: <Electronically signed by Ajith Muniz MD in OV> 04/04/25 0952 DD/ TD/TT: 04/04/25950 Intermediate Teacher: [facility] External Provider IMG XR PROCEDURES Edited Result - Final * SARS-CoV-2 RNA, Influenza A/B, and RSV RNA, Ql NAAT (04/04/2025 9:25 AM EDT) Influenza A PCR NEGATIVE Negative [facility] Influenza B PCR NEGATIVE Negative [facility] Resp Syncy Virus RNA Qual PCR NEGATIVE Negative [facility] SARS COV2 PCR NEGATIVE Negative [facility] Comment:All test results mus t [...] use by authorized laboratories.Testing performed on the [employer] GeneXpert utilizingreal-time RT-PCR.All SARS CoV2 and positive influenza A/B results arereported to [facility]. 04/04/2025 9:25 AM EDT 04/04/2025 9:28 AM EDT us Generic External Data Provider LAB MICROBIOLOGY - GENERAL ORDERABLES Final Result Performing Organization Address [facility] [[email or web address]] Co de Phone Number [facility] [address] [place] [phone] * (ABNORMAL) VENOUS BLOOD GAS (04/04/2025 7:48 AM EDT) Only the most recent of2 resultswithin the time period is included. VBG pH 7.44(H) 7.32 - 7.43 [facility] Comment:METER #: [id number] additional_comment: MIREYA CEVALLOS VBG PCO2 40 mmHg [facility] Comment:METER #: [id number] additional_comment: MIREYA CEVALLOS VBG PO2 39 mmHg [facility] Comment:METER #: [id number] additional_comment: MIREYA CEVALLOS VBG Base Excess 3.3 mmol/L [facility] Comment:METER #: [id number] additional_comment: MIREYA HUNTG HCO3 27(H) 22 - 26 mmol/L [facility] Comment:METER #: [id number] additional_comment: MIREYA CEVALLOS O2 Sat, [place] 51.0 % [facility] Comment:METER #: [id number] additional_comment: MIREYA CEVALLOS 04/04/2025 7:48 AM EDT 04/04/2025 7:52 AM EDT us Generic External Data Provider LAB BLOOD ORDERAB LES Final Result Performing Organization Address [facility] [[email or web address]] Co de Phone Number [facility] [address] [place] [phone] * XR Chest 1 View (03/30/2025 10:07 AM EDT) Only the most recent of2 resultswithin the time period is included. Anatomical Region Laterality Modality Chest Radiographic Smitha ging 03/30/2025 10:0 7 AM EDT Narrative 03/30/2025 11:26 AM EDT [address] [address] XRay Report Signed Patient: Ethan Cristina MR#: [id number] 0 : 1950 Acct:[id number] Age/Sex: 74 / M ADM Date: 03/30/25 Loc: HO.ED Attending Dr: Ordering Physician: Eduardo Pillai MD Date of Service: 03/30/25 Procedure(s): XR chest 1V Accession Number(s): [id number] cc: Eduardo Pillai MD; Blanca Crowley MD [...] 03/30/25 1123 DD/ 1007 TD/TT: 03/30/25 1115 Intermediate Teacher: Procedure Note Donotuseinterpreter, Image - 03/30/[address] [address] XRay Report Signed Patient: Ethan CristinaMR#: [id number] 0 : 3Acct:[id number] Age/Sex: 74 / MADM Date: 03/30/25 Loc: HO.ED Attending Dr: Ordering Physician: Eduardo Pillai MD Date of Service: 03/30/25 Procedure(s): XR chest 1V Accession Number(s): [id number] cc: Eduardo Pillai MD; Blanca Crowley MD [...] 03/30/25 1123 DD/ 1007 TD/TT: 03/30/25 1115 Intermediate Teacher: [facility] External Provider IMG XR PROCEDURES Final Result * (ABNORMAL) CBC auto differential (03/04/2025 11:18 AM EDT) Only the most recent of2 resultswithin the time period is included. White Blood Count 6.7 4.8 - 10.8 X10*3/uL [facility] Red Blood Count 3.65(L) 4.60 - 5.80 X10*6/uL [facility] Hemoglobin 9.9(L) 14.0 - 18.0 g/dl [facility] Hematocrit 32.8(L) 42.0 - 52.0 % [facility] Mean Corpuscular Volume 89.9 80.0 - 98.0 fL [facility] Mean Corpuscular Hemoglobin 27.1 27.0 - 33.0 pg [facility] Mean Corpuscular HGB Conc 30.2(L) 31.0 - 36.0 g/dl [facility] Red Cell Distribution Width 17.2(H) 11.0 - 16.0 % [facility] Platelet Count 249 160 - 400 X10*3/uL [facility] Mean Platelet Volume 9.8 9.4 - 12.4 fL [facility] Neutrophils Percent Auto 81.3(H) 45 - 73 % [facility] Imm Gran Pct Auto 0.3 0.0 - 0.4 % [facility] Lymphocytes Percent Auto 12.7(L) 20 - 40 % [facility] Monocytes Percent Auto 4.8 2 - 11 % [facility] Eosinophils Percent Auto 0.6 0 - 4 % [facility] Basophils Percent Auto 0.3 0 - 2 % [facility] NRBC Pct Auto 0.0 0.0 - 0.2 /100WBC [facility] Neutrophils Absolute Auto 5.4 2.0 - 8.3 x10*3/uL [facility] Imm Gran Abs Auto 0.02 0.00 - 0.03 X10*3/uL [facility] Lymphocytes Absolute Auto 0.9(L) 1.2 - 4.9 X10*3/uL [facility] Monocytes Absolute Auto 0.3 0.1 - 1.2 X10*3/uL [facility] Eosinophils Absolute Auto 0.0 0.0 - 0.4 X10*3/uL [facility] Basophils Absolute Auto 0.0 0.0 - 0.2 X10*3/uL [facility] NRBC Abs Auto 0.000 0.0 - 0.012 X10*3/uL [facility] Blood Venous blood specimen / Unknown 03/04/2025 11:18 AM EDT 03/04/2025 1:09 PM EDT us Cynthia Marshall NP LAB BLOOD ORDERABLES Final Resul t [facility] [address] [place] [phone] * Magnesium (03/04/2025 11:18 AM EDT) Magnesium 1.6 1.6 - 2.6 mg/dL [facility] Blood Venous blood specimen / Unknown 03/04/2025 11:18 AM EDT 03/04/2025 1:09 PM EDT us Blanca Lujan MD LAB BLOOD ORDERABLES Final Result Performing Organization Address [facility] [[email or web address]] Co de Phone Number [facility] [address] [place] [phone] * (ABNORMAL) Comprehensive Metabolic Panel (03/04/2025 11:18 AM EDT) Only the most recent of2 resultswithin the time period is included. Sodium 140 135 - 145 mmol/L [facility] Potassium 4.3 3.3 - 5.1 mmol/L [facility] Chloride 108 96 - 108 mmol/L [facility] Carbon Dioxide 26 22 - 29 mmol/L [facility] Anion Gap 10(L) 12 - 20 [facility] Urea Nitrogen (BUN) 33(H) 9 - 16 mg/dL [facility] Creatinine, Serum 1.93(H) 0.5 - 1.4 mg/dL [facility] Estimated Glomerular Filt Rate 34 [facility] Comment:Chronic Kidney Disea se: Estimated GFR < 60 mL/min/1.68f2Hslceu Kidney Disease: Estimated GFR < 15 mL/min/1.73m2 Glucose 149(H) 60 - 115 mg/dL [facility] Calcium 8.9 8.4 - 10.2 mg/dL [facility] Bilirubin, Total 1.3(H) 0.0 - 1.0 mg/dL [facility] Aspartate Amino Transferase 29 5 - 37 U/L [facility] Alanine Aminotransferase 20 0 - 40 U/L [facility] Total Protein 7.2 6.5 - 8.0 g/dL [facility] Albumin Level 3.3(L) 3.5 - 5.0 g/dL [facility] Alkaline Phosphatase 219(H) 39 - 117 U/L [facility] Blood Venous blood specimen / Unknown 03/04/2025 11:18 AM EDT 03/04/2025 1:09 PM EDT us Cynthia Marshall PAINTER SUPERVISOR LAB BLOOD ORDERABLES Final Resul t [facility] [address] [place] [phone] * (ABNORMAL) Basic Metabolic Panel (03/04/2025 11:18 AM EDT) Sodium 140 135 - 145 mmol/L [facility] Potassium 4.5 3.3 - 5.1 mmol/L [facility] Chloride 108 96 - 108 mmol/L [facility] Carbon Dioxide 26 22 - 29 mmol/L [facility] Anion Gap 11(L) 12 - 20 [facility] Urea Nitrogen (BUN) 33(H) 9 - 16 mg/dL [facility] Creatinine, Serum 1.91(H) 0.5 - 1.4 mg/dL [facility] Estimated Glomerular Filt Rate 35 [facility] Comment:Chronic Kidney Disea se: Estimated GFR < 60 mL/min/1.06e9Vsmmjn Kidney Disease: Estimated GFR < 15 mL/min/1.73m2 Glucose 152(H) 60 - 115 mg/dL [facility] Calcium 9.0 8.4 - 10.2 mg/dL [facility] Blood Venous blood specimen / Unknown 03/04/2025 11:18 AM EDT 03/04/2025 1:09 PM EDT us Blanca Lujan MD LAB BLOOD ORDERABLES Final Result Performing Organization Address City/[facility]/ZIP Co de Phone Number [facility] [address] [place] [phone] * ECG 12 lead (01/28/2025 2:08 PM EDT) Narrative Alena Myers MD - 01/28/2025 2:08 PM EDT A.fib at approx 72bpm ventricular response. Occasional PVC. Unspecific repolarization abn us Alena Myers MD ECG ORDERABLES Final Re sult * (ABNORMAL) PTH, Intact Without Calcium (01/16/2025 11:31 AM EDT) Parathyroid Hormone, Intact 251.2(H) 8.7 - 77.1 pg/mL [facility] 01/16/2025 11:3 1 AM EDT 01/16/2025 1:21 PM EDT us Generic External Data Provider LAB BLOOD ORDERAB LES Final Result Performing Organization Address [facility]/ZIP Co de Phone Number [facility] [address] [place] [phone] * Hemoglobin A1c (01/16/2025 11:31 AM EDT) Hemoglobin A1c 5.0 <6.0 % [facility] Comment:Hemoglobin A1C Refer ence Range Adults: 4.8 - 6.0 % Non diabetic: < 6.0 % Goal: < 7.0 %Additional Action Suggested: > 8.0 %Note: Hemoglobin A1c results are invalid for patients with abnormal amounts of HbF. Blood transfusions may impact the HbA1c concentration in the patient sample. Estimated Average Glucose 97 mg/dL [facility] Comment:eAG = Estimated ave rage glucose which is %A1C expressed asaverage glucose, using the formula of the I0M-DhmdwthSvkjgpc Glucose study (ADAG), Diabetes Care, Vol.31,#8,2007 Blood Venous blood specimen / Unknown 01/16/2025 11:31 AM EDT 01/16/2025 1:21 PM EDT us Sheila Rockwell MD LAB BLOOD ORDERABLES Final Res ult Performing Organization Address [facility] [[email or web address]] Co de Phone Number [facility] [address] [place] [phone] [phone] * (ABNORMAL) Lipid Panel, Standard (01/16/2025 11:31 AM EDT) Triglycerides 69 <150 mg/dL [facility] Comment:Desirable Triglyceri de: less than 150 mg/dLBorderline High Triglyceride 150-199 mg/dLHigh Triglyceride: 200-499 mg/dLVery High Triglyceride: greater than or equal to 5OO mg/dL Cholesterol 129 <200 mg/dL [facility] Comment:Desirable Cholestero l: less than 200 mg/dLBorderline High Cholesterol: 200-239 mg/dLHigh Cholesterol: greater than 239 mg/dL LDL Cholesterol Calculated 78 <100 mg/dL [facility] Comment:Desirable LDL: less than 100 mg/dLNear Optimal/Above Optimal LDL: 110- 129 mg/dLBorderline High LDL: 130-159 mg/dLHigh LDL: 160-189 mg/dLVery High LDL: greater than or equal to 190 mg/dL HDL Cholesterol 38(L) >40 mg/dL [facility] Comment:Desirable HDL: great er than 40 mg/dL Note: This HDL assay may give artificially low results in patients with liver disease. Blood Venous blood specimen / Unknown 01/16/2025 11:31 AM EDT 01/16/2025 1:21 PM EDT us Sheila Rockwell MD LAB BLOOD ORDERABLES Final Res ult Performing Organization Address 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
--- OUTSIDE RECORDS SUMMARY | 2025-04-12 16:23 | XMS_ITS | Encounter Summary ---
Author Organization [employer] Address [address] [place] [address] Care Team Providers Care Community Service Specialist Name Role Phone Cynthia Marshall NP Primary Care Provider [phone] Reason for Visit * Reason Onset Date Comments FYI 02/06/2025 Encounter Details Date Type Department Care Team ([facility] st Contact Info) Description 02/06/2025 Telephone [facility] MEDICINE [address] [place], [place] [phone] Cynthia Marshall NP [address] [place], [place] [phone] FYI Social History Tobacco Use Types Packs/Day [...] - 02/06/2025 1:16 PM EDT Tc from [place] with [facility] calling to report heart rate of 54, not symptomatic. documented in this encounter Plan of Treatment Upcoming Encounters Date Type Department Care Team (Late st Contact Info) Description 04/15/2025 11:30 AM EDT Office Visit [facility] MEDICINE [address] [place] [address] [phone] Blanca Crowley MD [address] [place] [phone] documented as of this encounter Visit Diagnoses Not on filedocumented in this encounter Additional Health Concerns Assessment Noted Time PHQ-9 Depression Total Score: 3 01/22/20 25 10:47 AM EDT documented as of this encounter Care Teams Community Service Specialist Relationship Specialty Start Date End Date Cynthia Marshall NP [address] [place] [address] [phone] PCP - General Family Medicine 09/10/23 [facility] 01/01/25 documented as of this encounter
[2025-04-12 16:32] LABS: MANUAL DIFF FLAG NO
[2025-04-12 16:35] LABS: Venous Blood Gas Refer to POC result
[2025-04-12 16:37] LABS: VBG HCO3 22 mmol/L (22-26); VBG O2 % Saturation 75.0 %
[2025-04-12 16:40] LABS: Hematocrit 27.0 % (42.0-52.0); Hemoglobin 8.6 g/dl (14.0-18.0); Imm Gran Abs Auto 0.02 X10*3/uL (0.00-0.03); Imm Gran Pct Auto 0.4 % (0.0-0.4); Lymphocytes Absolute Auto 0.6 X10*3/uL (1.2-4.9); Mean Corpuscular HGB Conc 31.9 g/dl (31.0-36.0); Mean Corpuscular Hemoglobin 26.5 pg (27.0-33.0); Mean Corpuscular Volume 83.3 fL (80.0-98.0); NRBC Abs Auto 0.000 X10*3/uL (0.0-0.012); NRBC Pct Auto 0.0 /100WBC (0.0-0.2); Platelet Count 207 X10*3/uL (160-400); Red Blood Count 3.24 X10*6/uL (4.60-5.80); White Blood Count 5.1 X10*3/uL (4.8-10.8)
[2025-04-12 16:52] LABS: COVID-19 Test Negative (Negative); IDNOW Serial# 58CA691E
[2025-04-12 16:53] LABS: IDNOW Serial# 55D5AD1C; Influenza B2 Negative (Negative)
[2025-04-12 16:58] LABS: Alanine Aminotransferase 18 U/L (0-40); Albumin Level 3.3 g/dL (3.5-5.0); Alkaline Phosphatase 172 U/L (39-117); Anion Gap 19 (12-20); Aspartate Amino Transferase 31 U/L (5-37); B Type Natriuretic Peptide 2131 pg/mL (<100); Blood Urea Nitrogen 94 mg/dL (9-16); Calcium 8.3 mg/dL (8.4-10.2); Carbon Dioxide 21 mmol/L (22-29); Chloride 104 mmol/L (96-108); Creatinine Clr Calc Pharmacy 19.3; Estimated Glomerular Filt Rate 15; Potassium 4.1 mmol/L (3.3-5.1); Sodium 140 mmol/L (135-145); Total Protein 7.2 g/dL (6.5-8.0)
[2025-04-12 17:01] LABS: Troponin-I High Sensitivity 27.7 ng/L (<3.5-35.0)
--- NOTE | 2025-04-12 17:37 | PC.NURSE ---
coming from home for cp beginning this morning as well as diff breathing with exertion. hx chf and afib. multiple visits this month where patient leaves AMA. agreeable to admission at this time. IV established, labs obtained and sent. resting quietly, request for hospital bed d/t patient expressing discomfort in emergency stretcher, offering no other complaints. placed on 2L nasal cannula d/t desat when sleeping at 88%.
--- NOTE | 2025-04-12 17:44 | PM.IMHP ---
History of Present Illness Date of Service: 04/12/25 Chief Complaint: Shortness of breaths Pt is a 74-year-old male with a PMH significant for?HFpEF (LVEF 52%), AFib on Eliquis, [id number] type 2 diabetes, HTN, HLD, CAD, hyperparathyroidism, CKD 3, and cognitive impairment who presented to emergency room with shortness of breath and swelling in her legs. Patient has been admitted 5 times from Mar 23 to and each time has left AMA. He presents back today with complaint of chest pain shortness for breath, worse with exertion and marked swelling in both legs with weeping. Creatinine is worse than baseline.. BNP level is [address] above his baseline. Chest x-ray is reported as having a right lower lobe pneumonia with parapneumonic effusion, he has no cough, no increase in WBC, and no fever. Review of Systems Review of Systems: Gen: no fever Resp: no sob, no cough CV: chest pain, + FRANCIS, + leg edema GI: No n/v, no abd pain Neuro: No confusion Yes all other systems are reviewed and are negative [facility] Medical History Anemia in chronic kidney disease (CKD) Hypertension Uncontrolled hypertension Congestive heart failure CKD (chronic kidney disease) CHF (congestive heart failure) CKD (chronic kidney disease) stage 4, GFR 15-29 ml/min Obesity (BMI 30.0-34.9) Cardiomyopathy Stroke Chronic atrial fibrillation CKD (chronic kidney disease) Former smoker Depression Diabetes High cholesterol Family History Father No problems noted. Mother Diabetes Hypertension Cancer Son No problems noted. Son No problems noted. Son No problems noted. Daughter No problems noted. Daughter No problems noted. Surgical History History of aneurysm History of shoulder surgery Social History Household Members: None Household Members Other:: Housing: Apartment Are you a primary medicare sales representative to a significant other at home: No Do you presently have visiting nurse or other home services: Yes (3 times a week/ pt cannot recall name of services) Unable to assess alcohol history related to: Unknown Alcohol intake: never Patient Tobacco Use Status: Former Tobacco user Substance Use Type: Marijuana Currently Displaying Signs/Symptoms of Drug Intoxication Withdrawal: No Have you been hit, kicked, punched, or otherwise hurt by someone within the past year? If so, by whom?: No Do you feel safe in your current relationship?: No Current Relationship Is there a partner from a previous relationship who is making you feel unsafe now?: No Are you made to feel afraid or neglected: No Advance Directives: Yes Advance Directives on File: Yes Advance Directives Date on File: 12/17/24 Do you have a plan to hurt others: No Plan Recently lost weight without trying: Unsure Nutrition Risks: No Nutritional Risk service: No Current occupational status: disabled Meds Allergies Allergy/AdvReac Type Severity Reaction Status Date / Time No Known Allergies (No Known Allergy Verified 04/12/25 15:38 Allergies*) Active Medications: Current Medications Acetaminophen (Acetaminophen 325 Mg Tablet) 650 mg PO Q6H PRN PRN Reason: Pain, Mild 1-3,fever,headache Al Hydroxide/Mg Hydroxide (Magnesium Hydrox/Alum Hydrox 30 Ml Oral.Susp) 30 ml PO Q4H PRN PRN Reason: Heartburn Calcium Carbonate (Calcium Carbonate 750 Mg Tab.Chew) 750 mg PO Q4H PRN PRN Reason: Heartburn Doxycycline Hyclate 100 mg/ (Sodium Chloride) 250 mls @ 166.67 mls/hr IV ONCE ONE Stop: 04/12/25 18:31 Magnesium Hydroxide (Milk Of Magnesia 30 Ml Oral.Susp) 30 ml PO DAILY PRN PRN Reason: Constipation Melatonin (Melatonin 3 Mg Tablet) 6 mg PO BEDTIME PRN PRN Reason: Insomnia Ondansetron HCl (Ondansetron Hcl 4 Mg/2 Ml Vial) 4 mg IVPUSH Q8H PRN PRN Reason: Nausea and Vomiting Polyethylene Glycol (Polyethylene Glycol 3350 17 Gm Powd.Pack) 17 gm PO DAILY PRN PRN Reason: Constipation Sodium Chloride (0.9 % Sodium Chloride Flush 3 Ml Syringe) 3 [facility] Medications ?Medication ?Instructions ?Recorded ?Confirmed ?Last Taken ?Type blood-glucose meter #1 ea 05/14/20 01/14/24 Unknown History lancets #100 ea 05/14/20 01/14/24 Unknown History atorvastatin 40 mg tablet 40 mg PO DAILY 12/19/22 04/12/25 04/06/25 History lisinopril 40 mg tablet 40 mg PO DAILY 10/20/24 04/12/25 04/06/25 History apixaban 2.5 mg tablet (Eliquis) 2.5 mg PO BID 12/05/24 04/12/25 04/06/25 History furosemide 40 mg tablet 40 mg PO BID 03/23/25 04/12/25 04/06/25 History calcitriol 0.25 mcg capsule 0.25 mcg PO Q48H 03/30/25 04/12/25 Unknown History ferrous sulfate 325 mg (65 mg 325 mg PO BID 03/30/25 04/12/25 04/06/25 History iron) tablet Physical Exam Vital Signs and Narrative: Vital Signs: Last Vital Signs Temp 97.0 F 04/12/25 16:25 Pulse 62 04/12/25 16:25 Resp 21 H 04/12/25 16:25 BP 146/70 H 04/12/25 16:25 Pulse Ox 93 04/12/25 16:25 O2 Del Method Room Air 04/12/25 16:25 BMI result Body Mass Index 30.7 Const: Other: Constitutional: Alert, in no distress, overweight. Mental Status: Oriented to person, place and time. Eyes: Pupils are equal, round and reactive to light. Ear, Nose and Throat: Oropharynx clear, mucous membranes moist. Ears and nose without eformities. Trachea midline. Respiratory: Clear to auscultation. No wheezing, +rales on exam Cardiovascular: S1 S2 regular. +JVD, 4+ leg edema Gastrointestinal: Abdomen soft, non-tender, non-distended. Normal bowel sounds.? Neurologic: Cranial nerves II-XII grossly intact. No focal neurological deficits. Moves all extremities spontaneously.? Skin: bilateral venous stasis ulcer with weeping Musculoskeletal: No cyanosis or clubbing. Psychiatric: Normal mood and affect? Results Labs 04/12/25 16:19 04/13/25 07:41 Labs: Laboratory Results - last 24 hr 04/12/25 04/12/25 16:19 16:32 MCV 83.3 MCH 26.5 L MCHC 31.9 RDW 18.0 H Plt Count 207 MPV 9.3 L Immature Gran % (Auto) 0.4 Neut % (Auto) 79.1 H Lymph % (Auto) 12.2 L [place] % (Auto) 7.9 Eos % (Auto) 0.4 Baso % (Auto) 0.0 Lymph # (Auto) 0.6 L [place] # (Auto) 0.4 Eos # (Auto) 0.0 Baso # (Auto) 0.0 Abs Immat Gran (auto) 0.02 Absolute Neuts (auto) 4.0 Absolute Nucleated RBC 0.000 Nucleated RBC % (auto) 0.0 VBG pH 7.44 H VBG pCO2 32 VBG pO2 53 VBG HCO3 22 VBG O2 Saturation 75.0 VBG Base Excess -0.5 Anion Gap 19 Estim Creat Clear Calc 19.3 Estimated GFR 15 Random Glucose 98 Calcium 8.3 L Total Bilirubin 0.8 AST 31 ALT 18 Alkaline Phosphatase 172 H B-Natriuretic Peptide 2131 H Total Protein 7.2 Albumin 3.3 L COVID-19 ([facility]) Negative COVID-19 Clin Com See Note Influenza Type A (MARLENA) Negative Influenza Type B ([facility]LENA) Negative Influenza A & B Note See Note Assessment and Plan (1) Acute exacerbation of CHF (congestive heart failure): Qualifiers: Heart failure type: unspecified Qualified Code(s): I50.9 - Heart failure, unspecified Status: Acute (2) CKD stage 3b, GFR 30-44 ml/min: Status: Acute (3) Acute on chronic kidney failure: Status: Acute (4) Pneumonia: Status: Acute (5) Pleural effusion: Status: Acute Plan This is a 74-year-old female with a PMH significant for?HFpEF (LVEF 52%), AFib on Eliquis, [id number]-[id number] type 2 diabetes, HTN, HLD, CAD, and hyperparathyroidism who presents to the ED with?swelling in the scrotum and penis. Pt is being admitted for acute respiratory failure due to CHF exacerbation and possible Pneumonia with parpneumonic effusion Acute Respiratory failure with hypoxia due to acute exacerbation of HFpEF complicated by cardiorenal syndrome, medication non-compliance and leaves AMA all the time, 5 times this month alone. Echo 12/05/24 with LVEF 52%, mild pulm HTN continue Lasix 40mg IV bid Follow I/O, BMP, BNP Monitor on telemetry KELSEY on CKD3 Creatinine 2.5 to 3.5, now 4 Likely cardiorenal Treat with IV diuretics as above Follow BMP Nephro consult Anasarca Likely multifactorial due to decompensated CHF, CKD, low albumin ?PNA probably all related to CHF, will get CT of chest before starting Abx, has no fever, no increase in WBC Right pleural effusion chronic diuresis as above DM last Hba1c 03/25 5.5 can follow POCs and cover with SSI if needed HTN Continue amlodipine, carvedilol, lisinopril Persistent AFib Continue carvedilol and Eliquis HLD Continue atorvastatin Iron deficiency anemia Continue iron supplementation GERD Continue Full Code DVT Prophylaxis: Eliquis Pt will require a hospitalization of at least two nights for treatment of?acute CHF exacerbation. Pt will require hospital level care for administration of supplemental oxygen, IV diuretics, and close monitoring of labs and cardiac function, as well as expert evaluation Quality Stroke Does the patient have a stroke diagnosis?: No VTE Prior VTE?: No VTE Risk Level:: Medical - moderate - high VTE Device Contraindication: Treatment Not Tolerated VTE Drug Contraindication: N/A - Med Ordered
--- NOTE | 2025-04-12 18:04 | PHA.MEDREC ---
Pharmacy Consult ? Medication Reconciliation Pharmacy has completed the medication reconciliation.Med rec complete, patient was just recently discharged , left AMA
[2025-04-12] MEDS: Furosemide 40 MG/4 ML VIAL IVPUSH (18:07)
[2025-04-12] MEDS: Nitroglycerin 2 % Oint 1 GM Packet 0.5 INCH TRANSDERMA (18:11)
--- NOTE | 2025-04-12 18:17 | PC.NURSE ---
medicated per the MAR. patient continues to state that he wants to go home however intermittently agreeable to staying in the hospital. IV antibiotics infusing
[2025-04-12 18:22] LABS: INTERNATIONAL NORM RATIO 1.4 (0.9-1.1); Prothrombin Time 15.6 SEC (10.9-12.4)
--- NOTE | 2025-04-12 19:37 | PC.NURSE ---
this rn assumed care of pt, pt returned back from ct at this time. antibiotics administered at this time.
[2025-04-12] MEDS: Ferrous Sulfate 324 MG TABLET.DR PO (21:57)
[2025-04-12 22:01] LABS: Glucose, Whole Blood 135 mg/dL (60-115)
[2025-04-13] VITALS (7 sets, daily range): BP systolic 116–154; BP diastolic 59–74; PULSE 51–90; RESP 17–21; TEMP 36.1–36.6; O2SAT 91–100
[2025-04-13] MEDS: 0.9 % Sodium Chloride Flush 3 ML SYRINGE IVFLUSH ×3 (00:26→16:18)
[2025-04-13 07:25] LABS: Glucose, Whole Blood 108 mg/dL (60-115)
[2025-04-13] MEDS: Ferrous Sulfate 324 MG TABLET.DR PO ×2 (08:18→21:22)
[2025-04-13 08:42] LABS: Anion Gap 16 (12-20); Blood Urea Nitrogen 91 mg/dL (9-16); Calcium 8.4 mg/dL (8.4-10.2); Carbon Dioxide 22 mmol/L (22-29); Chloride 106 mmol/L (96-108); Creatinine Clr Calc Pharmacy 22.2; Estimated Glomerular Filt Rate 17; Potassium 3.7 mmol/L (3.3-5.1); Sodium 140 mmol/L (135-145)
[2025-04-13 08:43] LABS: Alanine Aminotransferase 13 U/L (0-40); Albumin Level 3.0 g/dL (3.5-5.0); Alkaline Phosphatase 151 U/L (39-117); Anion Gap 18 (12-20); Aspartate Amino Transferase 22 U/L (5-37); Blood Urea Nitrogen 91 mg/dL (9-16); Calcium 8.3 mg/dL (8.4-10.2); Carbon Dioxide 22 mmol/L (22-29); Chloride 105 mmol/L (96-108); Creatinine Clr Calc Pharmacy 21.7; Estimated Glomerular Filt Rate 17; Potassium 3.7 mmol/L (3.3-5.1); Sodium 141 mmol/L (135-145); Total Protein 6.6 g/dL (6.5-8.0)
[2025-04-13] MEDS: Furosemide 200 MG in 0.9 % Sodium Chloride 80 ML IVCONT (09:34)
--- NOTE | 2025-04-13 09:36 | P.PNIM_ITS ---
Subjective Subjective Date of Service: 04/13/25 Interval History: f/u on Acute on chronic heart failure, and pneumonia with parapneumonic effusion feels betterf, remains fluid overloaded Review of Systems Gen: no fever Resp: no sob, no cough CV: chest pain, + FRANCIS, + leg edema GI: No n/v, no abd pain Neuro: No confusion Physical Exam 2 Vital Signs: Vital Signs: Last Vital Signs Temp 97.0 F 04/13/25 07:54 Pulse 64 04/13/25 07:54 Resp 20 04/13/25 07:54 BP 142/66 H 04/13/25 07:54 Pulse Ox 94 04/13/25 07:54 O2 Del Method Nasal Cannula 04/13/25 07:54 O2 Flow Rate 2 04/12/25 23:42 BMI result Body Mass Index 30.7 Const: Other: Constitutional: Alert, in no distress, overweight. Mental Status: Oriented to person, place and time. Eyes: Pupils are equal, round and reactive to light. Ear, Nose and Throat: Oropharynx clear, mucous membranes moist. Ears and nose without eformities. Trachea midline. Respiratory: Clear to auscultation. No wheezing, +rales on exam Cardiovascular: S1 S2 regular. +JVD, 4+ leg edema Gastrointestinal: Abdomen soft, non-tender, non-distended. Normal bowel sounds.? Neurologic: Cranial nerves II-XII grossly intact. No focal neurological deficits. Moves all extremities spontaneously.? Skin: bilateral venous stasis ulcer with weeping Musculoskeletal: No cyanosis or clubbing. Psychiatric: Normal mood and affect? Objective Data Active Medications Acetaminophen (Acetaminophen 325 Mg Tablet) 650 mg PO Q6H PRN PRN Reason: Pain, Mild 1-3,fever,headache Al Hydroxide/Mg Hydroxide (Magnesium Hydrox/Alum Hydrox 30 Ml Oral.Susp) 30 ml PO Q4H PRN PRN Reason: Heartburn Amlodipine Besylate (Amlodipine Besylate 5 Mg Tablet) 5 mg PO DAILY [facility]; Protocol Last Admin: 04/13/25 08:11 Dose: 5 mg Documented By: POLINA Apixaban (Apixaban 2.5 Mg Tablet) 2.5 mg PO BID [facility] Last Admin: 04/13/25 08:10 Dose: 2.5 mg Documented By: POLINA Atorvastatin Calcium (Atorvastatin Calcium 40 Mg Tablet) 40 mg PO DAILY [facility] Last Admin: 04/13/25 08:10 Dose: 40 mg Documented By: POLINA Calcitriol (Calcitriol 0.25 Mcg Capsule) 0.25 mcg PO Q48H [facility] Last Admin: 04/13/25 08:10 Dose: 0.25 mcg Documented By: POLINA Calcium Carbonate (Calcium Carbonate 750 Mg Tab.Chew) 750 mg PO Q4H PRN PRN Reason: Heartburn Carvedilol (Carvedilol 6.25 Mg Tablet) 6.25 mg PO BID [facility]; Protocol Last Admin: 04/13/25 08:11 Dose: 6.25 mg Documented By: POLINA Dextrose (Dextrose 50 % 25 Gm/50 Ml Syringe) 25 gm IVPUSH Q15M PRN; Protocol PRN Reason: per Hypoglycemia Standing Ord. Ferrous Sulfate (Ferrous Sulfate 324 Mg Tablet.) 324 mg PO BID [facility] Last Admin: 04/13/25 08:18 Dose: 324 mg Documented By: POLINA Glucose (Glucose Gel 15 Gm Gel..Gram.) 15 gm PO Q15M PRN; Protocol PRN Reason: per Hypoglycemia Standing Ord. Furosemide 200 mg/ Sodium (Chloride) 100 mls @ 5 mls/hr IVCONT .Q20H [facility] Insulin Human Lispro (Insulin Lispro 100 Unit/Ml 3 Ml Vial) 0 unit SUBCUT QIDACHS [facility]; Protocol Last Admin: 04/13/25 07:49 Dose: Not Given Documented By: POLINA Non-Admin Reason: No Insulin Coverage Magnesium Hydroxide (Milk Of Magnesia 30 Ml Oral.Susp) 30 ml PO DAILY PRN PRN Reason: Constipation Melatonin (Melatonin 3 Mg Tablet) 6 mg PO BEDTIME PRN PRN Reason: Insomnia Omeprazole (Omeprazole 40 Mg Capsule.) 40 mg PO BID@0630,1630 [facility] Last Admin: 04/13/25 06:23 Dose: 40 mg Documented By: PASTORA Ondansetron HCl (Ondansetron Hcl 4 Mg/2 Ml Vial) 4 mg IVPUSH Q8H PRN PRN Reason: Nausea and Vomiting Polyethylene Glycol (Polyethylene Glycol 3350 17 Gm Powd.Pack) 17 gm PO DAILY PRN PRN Reason: Constipation Sodium Chloride (0.9 % Sodium Chloride Flush 3 Ml Syringe) 3 ml IVFLUSH QSHIFT SHAUNNA Last Admin: 04/13/25 08:15 Dose: 3 ml Documented By: POLINA Tramadol HCl (Tramadol Hcl 50 Mg Tablet) 50 mg PO Q6H PRN PRN Reason: Breakthrough Pain Last Admin: 04/13/25 03:40 Dose: 50 mg Documented By: PASTORA Labs 04/12/25 16:19 04/13/25 07:41 Labs: Laboratory Results - last 24 hr 04/12/25 04/12/25 04/12/25 16:19 16:32 17:25 MCV 83.3 MCH 26.5 L MCHC 31.9 RDW 18.0 H Plt Count 207 MPV 9.3 L Immature Gran % (Auto) 0.4 Neut % (Auto) 79.1 H Lymph % (Auto) 12.2 L [place] % (Auto) 7.9 Eos % (Auto) 0.4 Baso % (Auto) 0.0 Lymph # (Auto) 0.6 L [place] # (Auto) 0.4 Eos # (Auto) 0.0 Baso # (Auto) 0.0 Abs Immat Gran (auto) 0.02 Absolute Neuts (auto) 4.0 Absolute Nucleated RBC 0.000 Nucleated RBC % (auto) 0.0 Hold Purple Top PT 15.6 H INR 1.4 H VBG pH 7.44 H VBG pCO2 32 VBG pO2 53 VBG HCO3 22 VBG O2 Saturation 75.0 VBG Base Excess -0.5 Anion Gap 19 Estim Creat Clear Calc 19.3 Estimated GFR 15 POC Glucose Random Glucose 98 Calcium 8.3 L Total Bilirubin 0.8 AST 31 ALT 18 Alkaline Phosphatase 172 H B-Natriuretic Peptide 2131 H Total Protein 7.2 Albumin 3.3 L COVID-19 ([facility]UEL) Negative COVID-19 Clin Com See Note Influenza Type A (MARLENA) Negative Influenza Type B (MARLENA) Negative Influenza A & B Note See Note 04/12/25 04/13/25 04/13/25 21:58 07:15 07:41 MCV MCH MCHC RDW Plt Count MPV Immature Gran % (Auto) Neut % (Auto) Lymph % (Auto) [place] % (Auto) Eos % (Auto) Baso % (Auto) Lymph # (Auto) [place] # (Auto) Eos # (Auto) Baso # (Auto) Abs Immat Gran (auto) Absolute Neuts (auto) Absolute Nucleated RBC Nucleated RBC % (auto) Hold Purple Top SEE NOTE PT INR VBG pH VBG pCO2 VBG pO2 VBG HCO3 VBG O2 Saturation VBG Base Excess Anion Gap 18 Estim Creat Clear Calc Estimated GFR POC Glucose 135 H 108 Random Glucose Calcium Total Bilirubin AST ALT Alkaline Phosphatase B-Natriuretic Peptide Total Protein Albumin COVID-19 ([facility]UEL) COVID-19 Clin Com Influenza Type A (MARLENA) Influenza Type B (MARLENA) Influenza A & B Note 04/13/25 04/13/25 04/13/25 07:41 07:41 07:41 MCV MCH MCHC RDW Plt Count MPV Immature Gran % (Auto) Neut % (Auto) Lymph % (Auto) [place] % (Auto) Eos % (Auto) Baso % (Auto) Lymph # (Auto) [place] # (Auto) Eos # (Auto) Baso # (Auto) Abs Immat Gran (auto) Absolute Neuts (auto) Absolute Nucleated RBC Nucleated RBC % (auto) Hold Purple Top PT INR VBG pH VBG pCO2 VBG pO2 VBG HCO3 VBG O2 Saturation VBG Base Excess Anion Gap 16 Estim Creat Clear Calc 21.7 22.2 Estimated GFR 17 17 POC Glucose Random Glucose 105 Calcium Total Bilirubin AST ALT Alkaline Phosphatase B-Natriuretic Peptide Total Protein Albumin COVID-19 ([facility]) COVID-19 Clin Com Influenza Type A (MARLENA) Influenza Type B (MARLENA) Influenza A & B Note 04/13/25 04/13/25 07:41 07:41 MCV MCH MCHC RDW Plt Count MPV Immature Gran % (Auto) Neut % (Auto) Lymph % (Auto) [place] % (Auto) Eos % (Auto) Baso % (Auto) Lymph # (Auto) [place] # (Auto) Eos # (Auto) Baso # (Auto) Abs Immat Gran (auto) Absolute Neuts (auto) Absolute Nucleated RBC Nucleated RBC % (auto) Hold Purple Top PT INR VBG pH VBG pCO2 VBG pO2 VBG HCO3 VBG O2 Saturation VBG Base Excess Anion Gap Estim Creat Clear Calc Estimated GFR POC Glucose Random Glucose 103 Calcium 8.3 L 8.4 Total Bilirubin 0.8 AST 22 ALT 13 Alkaline Phosphatase 151 H B-Natriuretic Peptide Total Protein 6.6 Albumin 3.0 L COVID-19 ([facility]) COVID-19 Clin Com Influenza Type A (MARLENA) Influenza Type B (MARLENA) Influenza A & B Note Assessment and Plan (1) Acute exacerbation of CHF (congestive heart failure): Status: Acute (2) Pneumonia: Status: Acute (3) Pleural effusion: Status: Acute (4) Anasarca: Status: Acute Plan This is a 74-year-old female with a PMH significant for?HFpEF (LVEF 52%), AFib on Eliquis, [id number] type 2 diabetes, HTN, HLD, CAD, and hyperparathyroidism who presents to the ED with?swelling in the scrotum and penis. Pt is being admitted for acute respiratory failure due to CHF exacerbation and possible Pneumonia with parpneumonic effusion Acute Respiratory failure with hypoxia due to acute exacerbation of HFpEF complicated by cardiorenal syndrome, medication non-compliance and leaves AMA all the time, 5 times this month alone. Echo 12/05/24 with LVEF 52%, mild pulm HTN, has anasarc change to IV Lasix drip Follow I/O, BMP, BNP Monitor on telemetry Cardiology consulation KELSEY on CKD3 Creatinine 2.5 to 3.5, incr to 4 now 3.5 Likely cardiorenal syndrome Treat with IV diuretics as above Follow BMP Nephro consult Right Lower lobe PNA with parapneumonic effusion on CT and xray Ceftriaxone and Doxycline, WBC normal and no fever repeat CxR at later time DM last Hba1c 03/25 5.5 can follow POCs and cover with SSI if needed HTN Continue amlodipine, carvedilol, hold lisinopril in light of worsening renal failure Persistent AFib Continue carvedilol and Eliquis HLD Continue atorvastatin Iron deficiency anemia Continue iron supplementation chroniv venous stasis wounds on legs wound care consult GERD Continue Full Code DVT Prophylaxis: Eliquis Pt will require a hospitalization of at least two nights for treatment of?acute CHF exacerbation. Pt will require hospital level care for administration of supplemental oxygen, IV diuretics, and close monitoring of labs and cardiac function, as well as expert evaluation Quality Stroke Does the patient have a stroke diagnosis?: No VTE Prior VTE?: No VTE Risk Level:: Medical - moderate - high VTE Device Contraindication: Treatment Not Tolerated VTE Drug Contraindication: N/A - Med Ordered
--- NOTE | 2025-04-13 09:36 | MHC.CM.PN ---
IMM given 04/13. Readmission, pt was admitted 5 times in the past month, and has left AMA each time. This CM met with pt with the assistance of a paraprofessional interpreter to complete CM intake assessment. Pt lives alone at home, self-care. Pt has a [facility] nurse visit once weekly. Pts daughter can transport him home at discharge. HCP on file and verified. PCP: Dr. Blanca Anderson
[2025-04-13 11:31] LABS: Glucose, Whole Blood 142 mg/dL (60-115)
--- NOTE | 2025-04-13 12:42 | P.CONCA_ITS ---
History of Present Illness History of Present Illness Date of Service: 04/13/25 Requesting physician: Vivek [facility] Consult reason: congestive heart failure Chief complaint: acute decompensated heart failure Narrative: I was consulted to see remote in cardiology consultation today for decompensated congestive heart failure. Patient is a 74-year-old male with heart failure preserved ejection fraction with LVEF of 52% with mild pulmonary hypertension with prior history of noncompliance, advanced chronic kidney disease presented to the hospital with hypoxemic respiratory failure with significant leg edema as well as scrotal edema. Patient has diagnose with decompensated congestive heart failure with clinical findings of CHF with right-sided fluid overload, BNP in the 2100 range as well as chest x-ray findings with congestive heart failure. He has been started on Lasix drip currently on 10 mg an hour and his intake output chart are showing no negative balance. Unclear whether this has been inaccurate charting although poor response to diuretics has been also possibility patient has prior history of noncompliance although he says he has been taking his home dose of diuretics regularly and notice that he was not putting adequate urine. Over the last couple of days he had significant fluid gain as his shortness of breath and came to the emergency room. He denies any prolonged palpitation irregular heartbeat. Denies any chest pain. His troponins are low and flat. EKG shows atrial fibrillation with slow ventricular response with no acute ST T wave changes Review of Systems 2 Constitutional: Constitutional: Reports weakness Eyes: Eyes: Reports no additional eye complaints Cardiovascular: Cardiovascular: Denies chest pain, Reports leg edema, Denies lightheadedness, Denies Loss of Consciousness, Denies palpitations, Reports dyspnea on exertion and Reports orthopnea Respiratory: Respiratory: Reports no additional respiratory complaints and Reports dyspnea on exertion Gastrointestinal: Gastrointestinal: Reports no additional gastrointestinal complaints Genitourinary: Genitourinary: Reports scrotal swelling Musculoskeletal: Musculoskeletal: Reports no additional musculoskeletal complaints Neurologic: Reports weakness Psychiatric: Psychiatric: Reports no additional psychiatric complaints Endocrine: Endocrine: Reports no additional endocrine complaints and Denies palpitations Hematologic/Lymphatic: Hematologic/Lymphatic: Reports no additional hematologic/lymphatic complaints [facility] Past Medical History Medical History Anemia in chronic kidney disease (CKD) Hypertension Uncontrolled hypertension Congestive heart failure CKD (chronic kidney disease) CHF (congestive heart failure) CKD (chronic kidney disease) stage 4, GFR 15-29 ml/min Obesity (BMI 30.0-34.9) Cardiomyopathy Stroke Chronic atrial fibrillation CKD (chronic kidney disease) Former smoker Depression Diabetes High cholesterol Family History Family History Father No problems noted. Mother Diabetes Hypertension Cancer Son No problems noted. Son No problems noted. Son No problems noted. Daughter No problems noted. Daughter No problems noted. Surgical History Surgical History History of aneurysm History of shoulder surgery Social History Social History Household Members: None Household Members Other:: Housing: Apartment Are you a primary care process manager to a significant other at home: No Do you presently have visiting nurse or other home services: Yes (3 times a week/ pt cannot recall name of services) Unable to assess alcohol history related to: Unknown Alcohol intake: never Patient Tobacco Use Status: Former Tobacco user Substance Use Type: Marijuana Currently Displaying Signs/Symptoms of Drug Intoxication Withdrawal: No Have you been hit, kicked, punched, or otherwise hurt by someone within the past year? If so, by whom?: No Do you feel safe in your current relationship?: No Current Relationship Is there a partner from a previous relationship who is making you feel unsafe now?: No Are you made to feel afraid or neglected: No Advance Directives: Yes Advance Directives on File: Yes Advance Directives Date on File: 12/17/24 Do you have a plan to hurt others: No Plan Recently lost weight without trying: Unsure Nutrition Risks: No Nutritional Risk service: No Current occupational status: disabled Meds Allergies Allergy/AdvReac Type Severity Reaction Status Date / Time No Known Allergies (No Known Allergy Verified 04/12/25 15:38 Allergies*) Active Medications: Current Medications Acetaminophen (Acetaminophen 325 Mg Tablet) 650 mg PO Q6H PRN PRN Reason: Pain, Mild 1-3,fever,headache Al Hydroxide/Mg Hydroxide (Magnesium Hydrox/Alum Hydrox 30 Ml Oral.Susp) 30 ml PO Q4H PRN PRN Reason: Heartburn Amlodipine Besylate (Amlodipine Besylate 5 Mg Tablet) 5 mg PO DAILY SHAUNNA; Protocol Last Admin: 04/13/25 08:11 Dose: 5 mg Apixaban (Apixaban 2.5 Mg Tablet) 2.5 mg PO BID [facility] Last Admin: 04/13/25 08:10 Dose: 2.5 mg Atorvastatin Calcium (Atorvastatin Calcium 40 Mg Tablet) 40 mg PO DAILY [facility] Last Admin: 04/13/25 08:10 Dose: 40 mg Calcitriol (Calcitriol 0.25 Mcg Capsule) 0.25 mcg PO Q48H [facility] Last Admin: 04/13/25 08:10 Dose: 0.25 mcg Calcium Carbonate (Calcium Carbonate 750 Mg Tab.Chew) 750 mg PO Q4H PRN PRN Reason: Heartburn Carvedilol (Carvedilol 6.25 Mg Tablet) 6.25 mg PO BID [facility]; Protocol Last Admin: 04/13/25 08:11 Dose: 6.25 mg Ceftriaxone Sodium (Ceftriaxone Sodium 1 Gm Vial) 1 gm IVPUSH Q24H [facility] Dextrose (Dextrose 50 % 25 Gm/50 Ml Syringe) 25 gm IVPUSH Q15M PRN; Protocol PRN Reason: per Hypoglycemia Standing Ord. Doxycycline Monohydrate (Doxycycline Monohydrate 100 Mg Capsule) 100 mg PO Q12H [facility] Last Admin: 04/13/25 10:35 Dose: 100 mg Ferrous Sulfate (Ferrous Sulfate 324 Mg Tablet.) 324 mg PO BID [facility] Last Admin: 04/13/25 08:18 Dose: 324 mg Glucose (Glucose Gel 15 Gm Gel..Gram.) 15 gm PO Q15M PRN; Protocol PRN Reason: per Hypoglycemia Standing Ord. Furosemide 200 mg/ Sodium (Chloride) 100 mls @ 5 mls/hr IVCONT .Q20H [facility] Last Admin: 04/13/25 09:34 Dose: 10 mg/hr, 5 mls/hr Insulin Human Lispro (Insulin Lispro 100 Unit/Ml 3 Ml Vial) 0 unit SUBCUT QIDACHS [facility]; Protocol Last Admin: 04/13/25 11:31 Dose: Not Given Magnesium Hydroxide (Milk Of Magnesia 30 Ml Oral.Susp) 30 ml PO DAILY PRN PRN Reason: Constipation Melatonin (Melatonin 3 Mg Tablet) 6 mg PO BEDTIME PRN PRN Reason: Insomnia Nystatin (Nystatin Powder 15 Gm Bottle) 1 appl TOPICAL BID [facility]; Protocol Omeprazole (Omeprazole 40 Mg Capsule.) 40 mg PO BID@0630,1630 [facility] Last Admin: 04/13/25 06:23 Dose: 40 mg Ondansetron HCl (Ondansetron Hcl 4 Mg/2 Ml Vial) 4 mg IVPUSH Q8H PRN PRN Reason: Nausea and Vomiting Polyethylene Glycol (Polyethylene Glycol 3350 17 Gm Powd.Pack) 17 gm PO DAILY PRN PRN Reason: Constipation Sodium Chloride (0.9 % Sodium Chloride Flush 3 Ml Syringe) 3 ml IVFLUSH QSHIFT [facility] Last Admin: 04/13/25 08:15 Dose: 3 ml Tramadol HCl (Tramadol Hcl 50 Mg Tablet) 50 mg PO Q6H PRN PRN Reason: Breakthrough Pain Last Admin: 04/13/25 03:40 Dose: 50 mg Home Medications ?Medication ?Instructions ?Recorded ?Confirmed ?Last Taken ?Type blood-glucose meter #1 ea 05/14/20 01/14/24 Unkn own History lancets #100 ea 05/14/20 01/14/24 Un known History atorvastatin 40 mg tablet 40 mg PO DAILY 12/19/2203/1504/06/25 History lisinopril 40 mg tablet 40 mg PO DAILY 10/20/2403/1504/06/25 History apixaban 2.5 mg tablet (Eliquis) 2.5 mg PO BID 5 04/12/25 04/06/25 History furosemide 40 mg tablet 40 mg PO BID 03/23/2504/06/25 History calcitriol 0.25 mcg capsule 0.25 mcg PO Q48H 03/30/25 04/12/25 Unknown History ferrous sulfate 325 mg (65 mg 325 mg PO BID 03/30/25 0 04/12/25 04/06/25 History iron) tablet Physical Exam 2 Vital Signs: Vital Signs: Last Vital Signs Temp 97.0 F 04/13/25 12:00 Pulse 51 04/13/25 12:00 Resp 20 04/13/25 12:00 BP 116/59 L 04/13/25 12:00 Pulse Ox 100 04/13/25 12:00 O2 Del Method Nasal Cannula 04/13/25 12:00 O2 Flow Rate 2 04/13/25 12:00 BMI result Body Mass Index 30.7 Const: General: cooperative, comfortable, no acute distress, alert and awake Nutritional Appearance: average body habitus Orientation/consciousness: p atient oriented x3 HEENT: Head: Yes normocephalic and Yes atraumatic Neck: Neck: Yes trachea midline, Yes supple and Yes JVD Resp: Effort & Inspection: normal respiratory effort Auscultation: d iminished lung sounds Cardio: Jugular venous distension: JVD Rhythm: abnormal rhythm irregularly irregular Heart sounds: S1 normal heart sound present, S2 normal heart sound present, no click, no gallops and no murmurs GI: Inspection: Yes distended Auscultation: normal bowel sounds Skin: General skin exam: no rashes or lesions noted Neuro: General: patient oriented x3 and no focal motor deficits Extrem: General: No clubbing, No cyanosis and Yes edema Objective Labs and Meds 04/12/25 16:19 04/13/25 07:41 Lab results: Laboratory Results - last 24 hr 04/12/25 04/12/25 04/12/25 16:19 16:32 17:25 WBC 5.1 RBC 3.24 L Hgb 8.6 L Hct 27.0 L MCV 83.3 MCH 26.5 L MCHC 31.9 RDW 18.0 H Plt Count 207 MPV 9.3 L Immature Gran % (Auto) 0.4 Neut % (Auto) 79.1 H Lymph % (Auto) 12.2 L Gordon % (Auto) 7.9 Eos % (Auto) 0.4 Baso % (Auto) 0.0 Lymph # (Auto) 0.6 L Gordon # (Auto) 0.4 Eos # (Auto) 0.0 Baso # (Auto) 0.0 Abs Immat Gran (auto) 0.02 Absolute Neuts (auto) 4.0 Absolute Nucleated RBC 0.000 Nucleated RBC % (auto) 0.0 Hold Purple Top PT 15.6 H INR 1.4 H VBG pH 7.44 H VBG pCO2 32 VBG pO2 53 VBG HCO3 22 VBG O2 Saturation 75.0 VBG Base Excess -0.5 Sodium 140 Potassium 4.1 Chloride 104 Carbon Dioxide 21 L Anion Gap 19 BUN 94 H Creatinine 4.04 H* Estim Creat Clear Calc 19.3 Estimated GFR 15 POC Glucose Random Glucose 98 Calcium 8.3 L Total Bilirubin 0.8 AST 31 ALT 18 Alkaline Phosphatase 172 H Troponin I High Sens 27.7 B-Natriuretic Peptide 2131 H Total Protein 7.2 Albumin 3.3 L COVID-19 (CARLOS MANUEL) Negative COVID-19 Clin Com See Note Influenza Type A (MARLENA) Negative Influenza Type B (MARLENA) Negative Influenza A & B Note See Note 04/12/25 04/13/25 04/13/25 21:58 07:15 07:41 WBC RBC Hgb Hct MCV MCH MCHC RDW Plt Count MPV Immature Gran % (Auto) Neut % (Auto) Lymph % (Auto) Gordon % (Auto) Eos % (Auto) Baso % (Auto) Lymph # (Auto) Gordon # (Auto) Eos # (Auto) Baso # (Auto) Abs Immat Gran (auto) Absolute Neuts (auto) Absolute Nucleated RBC Nucleated RBC % (auto) Hold Purple Top SEE NOTE PT INR VBG pH VBG pCO2 VBG pO2 VBG HCO3 VBG O2 Saturation VBG Base Excess Sodium 141 Potassium Chloride Carbon Dioxide Anion Gap BUN Creatinine Estim Creat Clear Calc Estimated GFR POC Glucose 135 H 108 Random Glucose Calcium Total Bilirubin AST ALT Alkaline Phosphatase Troponin I High Sens B-Natriuretic Peptide Total Protein Albumin COVID-19 (CARLOS MANUEL) COVID-19 Clin Com Influenza Type A (MARLENA) Influenza Type B (MARLENA) Influenza A & B Note 04/13/25 04/13/25 04/13/25 07:41 07:41 07:41 WBC RBC Hgb Hct MCV MCH MCHC RDW Plt Count MPV Immature Gran % (Auto) Neut % (Auto) Lymph % (Auto) Gordon % (Auto) Eos % (Auto) Baso % (Auto) Lymph # (Auto) Gordon # (Auto) Eos # (Auto) Baso # (Auto) Abs Immat Gran (auto) Absolute Neuts (auto) Absolute Nucleated RBC Nucleated RBC % (auto) Hold Purple Top PT INR VBG pH VBG pCO2 VBG pO2 VBG HCO3 VBG O2 Saturation VBG Base Excess Sodium 140 Potassium 3.7 3.7 Chloride 105 106 Carbon Dioxide 22 Anion Gap BUN Creatinine Estim Creat Clear Calc Estimated GFR POC Glucose Random Glucose Calcium Total Bilirubin AST ALT Alkaline Phosphatase Troponin I High Sens B-Natriuretic Peptide Total Protein Albumin COVID-19 (CARLOS MANUEL) COVID-19 Clin Com Influenza Type A (MARLENA) Influenza Type B (MARLENA) Influenza A & B Note 04/13/25 04/13/25 04/13/25 07:41 07:41 07:41 WBC RBC Hgb Hct MCV MCH MCHC RDW Plt Count MPV Immature Gran % (Auto) Neut % (Auto) Lymph % (Auto) Gordon % (Auto) Eos % (Auto) Baso % (Auto) Lymph # (Auto) Gordon # (Auto) Eos # (Auto) Baso # (Auto) Abs Immat Gran (auto) Absolute Neuts (auto) Absolute Nucleated RBC Nucleated RBC % (auto) Hold Purple Top PT INR VBG pH VBG pCO2 VBG pO2 VBG HCO3 VBG O2 Saturation VBG Base Excess Sodium Potassium Chloride Carbon Dioxide 22 Anion Gap 18 16 BUN 91 H 91 H Creatinine 3.58 H Estim Creat Clear Calc Estimated GFR POC Glucose Random Glucose Calcium Total Bilirubin AST ALT Alkaline Phosphatase Troponin I High Sens B-Natriuretic Peptide Total Protein Albumin COVID-19 (CARLOS MANUEL) COVID-19 Clin Com Influenza Type A (MARLENA) Influenza Type B (MARLENA) Influenza A & B Note 04/13/25 04/13/25 04/13/25 07:41 07:41 07:41 WBC RBC Hgb Hct MCV MCH MCHC RDW Plt Count MPV Immature Gran % (Auto) Neut % (Auto) Lymph % (Auto) Gordon % (Auto) Eos % (Auto) Baso % (Auto) Lymph # (Auto) Gordon # (Auto) Eos # (Auto) Baso # (Auto) Abs Immat Gran (auto) Absolute Neuts (auto) Absolute Nucleated RBC Nucleated RBC % (auto) Hold Purple Top PT INR VBG pH VBG pCO2 VBG pO2 VBG HCO3 VBG O2 Saturation VBG Base Excess Sodium Potassium Chloride Carbon Dioxide Anion Gap BUN Creatinine 3.50 H Estim Creat Clear Calc 21.7 22.2 Estimated GFR 17 17 POC Glucose Random Glucose 105 Calcium Total Bilirubin AST ALT Alkaline Phosphatase Troponin I High Sens B-Natriuretic Peptide Total Protein Albumin COVID-19 (CARLOS MANUEL) COVID-19 Clin Com Influenza Type A (MARLENA) Influenza Type B (MARLENA) Influenza A & B Note 04/13/25 04/13/25 04/13/25 07:41 07:41 11:20 WBC RBC Hgb Hct MCV MCH MCHC RDW Plt Count MPV Immature Gran % (Auto) Neut % (Auto) Lymph % (Auto) Gordon % (Auto) Eos % (Auto) Baso % (Auto) Lymph # (Auto) Gordon # (Auto) Eos # (Auto) Baso # (Auto) Abs Immat Gran (auto) Absolute Neuts (auto) Absolute Nucleated RBC Nucleated RBC % (auto) Hold Purple Top PT INR VBG pH VBG pCO2 VBG pO2 VBG HCO3 VBG O2 Saturation VBG Base Excess Sodium Potassium Chloride Carbon Dioxide Anion Gap BUN Creatinine Estim Creat Clear Calc Estimated GFR POC Glucose 142 H Random Glucose 103 Calcium 8.3 L 8.4 Total Bilirubin 0.8 AST 22 ALT 13 Alkaline Phosphatase 151 H Troponin I High Sens B-Natriuretic Peptide Total Protein 6.6 Albumin 3.0 L COVID-19 (CARLOS MANUEL) COVID-19 Clin Com Influenza Type A (MARLENA) Influenza Type B (MARLENA) Influenza A & B Note Assessment and Plan (1) Acute exacerbation of CHF (congestive heart failure): Qualifiers: Heart failure type: unspecified Qualified Code(s): I50.9 - Heart failure, unspecified Status: Acute Decompensated congestive heart failure in this elderly gentleman with poor compliance in the past presented with sinus predominantly right heart failure but with also significant shortness of breath hypoxemia with worsening renal function suggestive of cardiorenal syndrome. He is significantly fluid overloaded at this point time. Suggest to continue IV Lasix drip. Given his advanced kidney dysfunction and overall tepid diuretic response would add metolazone 2.5 mg to his regimen. Strict intake and output chart needs to be pursued. Advised patient to help with measurement of urine output. Continue monitor renal function closely as well as electrolytes. If renal function improved significantly can potentially add Jardiance 10 mg to his regimen. Importance of compliance with medication and completion of treatment and not signed out against medical advice was discussed with him. Continue aggressive blood pressure control. Will closely follow him as well. Patient's heart failure syndrome most likely related to hypertensive heart disease in the setting of chronic atrial fibrillation and poor compliance. Patient will continue with current rate control for atrial fibrillation. Continue full oral anticoagulation, should be on Eliquis 5 mg b.i.d.. Will follow with you Procedures Date of Service Date of Service: 04/13/25
[2025-04-13 15:36] LABS: Glucose, Whole Blood 137 mg/dL (60-115)
[2025-04-13 20:24] LABS: Glucose, Whole Blood 147 mg/dL (60-115)
[2025-04-14] VITALS (7 sets, daily range): BP systolic 121–169; BP diastolic 56–85; PULSE 52–67; RESP 16–20; TEMP 36.2–36.4; O2SAT 91–97
--- NOTE | 2025-04-14 | ECG_ITS ---
Test Reason : cp Blood Pressure : */* mmHG Vent. Rate : 55 BPM Atrial Rate : * BPM P-R Int : * ms QRS Dur : 98 ms QT Int : 474 ms P-R-T Axes : * 26 208 degrees QTcB Int : 453 ms Atrial fibrillation with slow ventricular response Minimal voltage criteria for LVH, may be normal variant ( Karlo product ) Nonspecific T wave abnormality Abnormal ECG When compared with ECG of 12-Apr-2025 15:49, No significant change was found Referred By: Corry Chen Electronically Signed By: Ash Pedersen
[2025-04-14] MEDS: Furosemide 200 MG in 0.9 % Sodium Chloride 80 ML IVCONT (05:03)
[2025-04-14 07:48] LABS: Glucose, Whole Blood 91 mg/dL (60-115)
[2025-04-14 08:31] LABS: Anion Gap 17 (12-20); Blood Urea Nitrogen 90 mg/dL (9-16); Calcium 8.7 mg/dL (8.4-10.2); Carbon Dioxide 24 mmol/L (22-29); Chloride 102 mmol/L (96-108); Creatinine Clr Calc Pharmacy 24.1; Estimated Glomerular Filt Rate 19; Potassium 3.6 mmol/L (3.3-5.1); Sodium 139 mmol/L (135-145)
--- NOTE | 2025-04-14 09:28 | PM.CNNEP ---
History of Present Illness Reason for Consult Consult date: 04/14/25 Chief Complaint Chief complaint: acute decompensated heart failure History of Present Illness Narrative: 74 y/o male with HFpEF, afib, DMII, HTN, HLD, CKD, cognitive impairment. Presented 04/12 with shortness of breath, leg swelling, chest pain. Of note, has been admitted x5 since March 23 and left AMA each time. Being treated for CHF exacerbation with IV lasix. Nephrology consulted for KELSEY on CKD. Creatinine 4.04 on presentation, has been trending down, today 3.23. baseline creatinine 1.7-2.3. Patient states he feels better today. Reports breathing is better, though remains on supplemental O2. He denies pain. Denies urinary symptoms. Denies other concerns. Review of Systems Review of Systems Yes all other systems are reviewed and are negative [facility] Past Medical History Medical History Anemia in chronic kidney disease (CKD) Hypertension Uncontrolled hypertension Congestive heart failure CKD (chronic kidney disease) CHF (congestive heart failure) CKD (chronic kidney disease) stage 4, GFR 15-29 ml/min Obesity (BMI 30.0-34.9) Cardiomyopathy Stroke Chronic atrial fibrillation CKD (chronic kidney disease) Former smoker Depression Diabetes High cholesterol Family History Family History Father No problems noted. Mother Diabetes Hypertension Cancer Son No problems noted. Son No problems noted. Son No problems noted. Daughter No problems noted. Daughter No problems noted. Surgical History Surgical History History of aneurysm History of shoulder surgery Social History Social History Household Members: None Household Members Other:: Housing: Apartment Are you a primary career information specialist to a significant other at home: No Do you presently have visiting nurse or other home services: Yes (3 times a week/ pt cannot recall name of services) Unable to assess alcohol history related to: Unknown Alcohol intake: never Patient Tobacco Use Status: Former Tobacco user Substance Use Type: Marijuana Currently Displaying Signs/Symptoms of Drug Intoxication Withdrawal: No Have you been hit, kicked, punched, or otherwise hurt by someone within the past year? If so, by whom?: No Do you feel safe in your current relationship?: No Current Relationship Is there a partner from a previous relationship who is making you feel unsafe now?: No Are you made to feel afraid or neglected: No Advance Directives: Yes Advance Directives on File: Yes Advance Directives Date on File: 12/17/24 Do you have a plan to hurt others: No Plan Recently lost weight without trying: Unsure Nutrition Risks: No Nutritional Risk service: No Current occupational status: disabled Meds Allergies Allergy/AdvReac Type Severity Reaction Status Date / Time No Known Allergies (No Known Allergy Verified 04/12/25 15:38 Allergies*) Active Medications: Current Medications Acetaminophen (Acetaminophen 325 Mg Tablet) 650 mg PO Q6H PRN PRN Reason: Pain, Mild 1-3,fever,headache Al Hydroxide/Mg Hydroxide (Magnesium Hydrox/Alum Hydrox 30 Ml Oral.Susp) 30 ml PO Q4H PRN PRN Reason: Heartburn Amlodipine Besylate (Amlodipine Besylate 5 Mg Tablet) 5 mg PO DAILY [facility]; Protocol Last Admin: 04/13/25 08:11 Dose: 5 mg Apixaban (Apixaban 2.5 Mg Tablet) 2.5 mg PO BID [facility] Last Admin: 04/13/25 21:23 Dose: 2.5 mg Atorvastatin Calcium (Atorvastatin Calcium 40 Mg Tablet) 40 mg PO DAILY [facility] Last Admin: 04/13/25 08:10 Dose: 40 mg Calcitriol (Calcitriol 0.25 Mcg Capsule) 0.25 mcg PO Q48H [facility] Last Admin: 04/13/25 08:10 Dose: 0.25 mcg Calcium Carbonate (Calcium Carbonate 750 Mg Tab.Chew) 750 mg PO Q4H PRN PRN Reason: Heartburn Carvedilol (Carvedilol 6.25 Mg Tablet) 6.25 mg PO BID [facility]; Protocol Last Admin: 04/13/25 21:22 Dose: 6.25 mg Ceftriaxone Sodium (Ceftriaxone Sodium 1 Gm Vial) 1 gm IVPUSH Q24H [facility] Last Admin: 04/13/25 17:58 Dose: 1 gm Dextrose (Dextrose 50 % 25 Gm/50 Ml Syringe) 25 gm IVPUSH Q15M PRN; Protocol PRN Reason: per Hypoglycemia Standing Ord. Doxycycline Monohydrate (Doxycycline Monohydrate 100 Mg Capsule) 100 mg PO Q12H [facility] Last Admin: 04/13/25 21:25 Dose: 100 mg Ferrous Sulfate (Ferrous Sulfate 324 Mg Tablet.) 324 mg PO BID [facility] Last Admin: 04/13/25 21:22 Dose: 324 mg Glucose (Glucose Gel 15 Gm Gel..Gram.) 15 gm PO Q15M PRN; Protocol PRN Reason: per Hypoglycemia Standing Ord. Furosemide 200 mg/ Sodium (Chloride) 100 mls @ 5 mls/hr IVCONT .Q20H [facility] Last Admin: 04/14/25 05:03 Dose: 10 mg/hr, 5 mls/hr Insulin Human Lispro (Insulin Lispro 100 Unit/Ml 3 Ml Vial) 0 unit SUBCUT QIDACHS [facility]; Protocol Last Admin: 04/13/25 20:50 Dose: Not Given Lorazepam (Lorazepam 0.5 Mg Tablet) 0.5 mg PO BEDTIME PRN PRN Reason: Anxiety and/or insomnia Last Admin: 04/13/25 21:22 Dose: 0.5 mg Magnesium Hydroxide (Milk Of Magnesia 30 Ml Oral.Susp) 30 ml PO DAILY PRN PRN Reason: Constipation Melatonin (Melatonin 3 Mg Tablet) 6 mg PO BEDTIME PRN PRN Reason: Insomnia Metolazone (Metolazone 2.5 Mg Tablet) 2.5 mg PO DAILY [facility] Morphine Sulfate (Morphine Sulfate 2 Mg/Ml Cartridge) 2 mg IVPUSH Q6H PRN; Protocol PRN Reason: Pain, Severe (Pain Scale 7-10) Last Admin: 04/13/25 18:14 Dose: 2 mg Nystatin (Nystatin Powder 15 Gm Bottle) 1 appl TOPICAL BID [facility]; Protocol Last Admin: 04/13/25 22:47 Dose: Not Given Omeprazole (Omeprazole 40 Mg Capsule.) 40 mg PO BID@0630,1630 [facility] Last Admin: 04/14/25 05:03 Dose: 40 mg Ondansetron HCl (Ondansetron Hcl 4 Mg/2 Ml Vial) 4 mg IVPUSH Q8H PRN PRN Reason: Nausea and Vomiting Polyethylene Glycol (Polyethylene Glycol 3350 17 Gm Powd.Pack) 17 gm PO DAILY PRN PRN Reason: Constipation Sodium Chloride (0.9 % Sodium Chloride Flush 3 Ml Syringe) 3 ml IVFLUSH QSHIFT [facility] Last Admin: 04/14/25 02:25 Dose: Not Given Tramadol HCl (Tramadol Hcl 50 Mg Tablet) 50 mg PO Q6H PRN PRN Reason: Breakthrough Pain Last Admin: 04/13/25 21:22 Dose: 50 mg Home Medications ?Medication ?Instructions ?Recorded ?Confirmed ?Last Taken ?Type blood-glucose meter #1 ea 05/14/20 01/14/24 Unknown History lancets #100 ea 05/14/20 01/14/24 Unknown History atorvastatin 40 mg tablet 40 mg PO DAILY 12/19/22 04/12/25 04/06/25 History lisinopril 40 mg tablet 40 mg PO DAILY 10/20/24 04/12/25 04/06/25 History apixaban 2.5 mg tablet (Eliquis) 2.5 mg PO BID 12/05/24 04/12/25 04/06/25 History furosemide 40 mg tablet 40 mg PO BID 03/23/25 04/12/25 04/06/25 History calcitriol 0.25 mcg capsule 0.25 mcg PO Q48H 03/30/25 04/12/25 Unknown History ferrous sulfate 325 mg (65 mg 325 mg PO BID 03/30/25 04/12/25 04/06/25 History iron) tablet Physical Exam Vital Signs: Last Vital Signs Temp 97.4 F 04/14/25 07:37 Pulse 56 04/14/25 07:37 Resp 20 04/14/25 07:37 BP 169/78 H 04/14/25 07:37 Pulse Ox 96 04/14/25 07:37 O2 Del Method Nasal Cannula 04/14/25 07:37 O2 Flow Rate 2 04/14/25 07:37 BMI result Body Mass Index 30.7 Const General: no acute distress, alert and awake Resp Effort & Inspection: normal respiratory effort and able to speak in complete sentences Auscultation: crackles Cardio Rate: regular rate Rhythm: regular rhythm Heart sounds: S1 normal heart sound present and S2 normal heart sound present GI Palpation (GI): Soft to palpation and nontender General: Yes no CVA tenderness Back/Spine/Pelvis Back: no CVA tenderness Skin Rashes: no rashes Extrem General: Yes edema (+2 BLE edema) Results Lab Results 04/12/25 16:19 04/14/25 07:50 Lab results: Chemistry 04/12/25 04/13/25 04/13/25 16:19 07:41 07:41 Sodium 140 141 140 Potassium 4.1 3.7 Carbon Dioxide 21 L BUN 94 H Creatinine 4.04 H* Calcium 8.3 L 04/13/25 04/13/25 04/13/25 07:41 07:41 07:41 Sodium Potassium 3.7 Carbon Dioxide 22 22 BUN 91 H 91 H Creatinine 3.58 H Calcium 04/13/25 04/13/25 04/14/25 07:41 07:41 07:50 Sodium 139 Potassium 3.6 Carbon Dioxide 24 BUN 90 H Creatinine 3.50 H 3.23 H Calcium 8.3 L 8.4 8.7 Hematology 04/12/25 16:19 WBC 5.1 Hgb 8.6 L Plt Count 207 Assessment and Plan (1) Acute kidney injury superimposed on chronic kidney disease: Status: Acute Plan KELSEY on CKD likely related to volume overload from CHF exacerbation. Renal function is improving with diuresis. Recommend continuing current regimen of lasix 10mg/hr given and PO metolazone patient continues to have signs of fluid overload. Recommend daily electrolyte and renal function studies Recommend monitoring I&O's closely, daily weights Recommend avoiding nephrotoxins Continue supportive care Discussed with Dr Elliott. Procedures Date of Service Date of Service: 04/14/25
[2025-04-14] MEDS: 0.9 % Sodium Chloride Flush 3 ML SYRINGE IVFLUSH ×3 (09:30→21:59)
[2025-04-14] MEDS: Ferrous Sulfate 324 MG TABLET.DR PO ×2 (09:35→21:58)
--- NOTE | 2025-04-14 11:20 | HO.WOUND ---
Wound Consult: Initial 74 yr old male [place] [facility] [place] - See progress notes and H&P for detailed history. Wound consult placed for bilateral legs. Patient agreeable to assessment and photo documentation. both legs left lateral left posterior Etiology: bilateral legs venous stasis ulcers Wound Bed: moist pink Drainage / Odor: serous, moderate, no odor Edges: ? attached Mynor wound: ? No Induration, Fluctuance or Warmth noted Pain: mild pain with wound assessment/cleansing Goals of Treatment: ? moist wound healing, drainage control with durafiber ag Etiology: bilateral ischium and mynor anal hyperpigmentation. left buttock noted with 2 areas of intact pale pink scar tissue, likely old healed skin/pressure injury. Wound Bed: intact skin with hyper and hypopigmentation Drainage / Odor: none Mynor wound: ? No Induration, Fluctuance or Warmth noted Pain: none Goals of Treatment: ?offloading, prevention of skin injury Recommendations: 1. Turn and Reposition every 2 hours and as needed for patient comfort. Use pillows or wedges to support off loading positions. 2. Off Load all bony prominences with use of pillows and heel boots if needed. Apply Preventative foams where needed. 3. Monitor for incontinence and moisture control, use barrier creams when needed for prevention and treatment. 4. Provide adequate and supplemental nutrition. 5. Order or Continue low air loss mattress. 6. When applicable maintain blood glucose levels per Providers order. Bilateral legs: cleanse with saline, apply durafiber ag, cover with ABD pads, hold in place with rolled gauze or stretch netting, change every other day and PRN Re-consult wound care Nurse for wound deterioration or wound changes.
[2025-04-14 11:30] LABS: Glucose, Whole Blood 161 mg/dL (60-115)
--- NOTE | 2025-04-14 12:48 | PM.PNCARD ---
Subjective Subjective Date of Service: 04/14/25 Interval history: Seen examined at bedside. On Lasix drip currently. Saying that he is feeling better. Physical Exam Vital Signs: Last Vital Signs Temp 97.2 F 04/14/25 11:34 Pulse 59 04/14/25 11:34 Resp 20 04/14/25 11:34 BP 121/58 L 04/14/25 11:34 Pulse Ox 97 04/14/25 11:34 O2 Del Method Nasal Cannula 04/14/25 11:34 O2 Flow Rate 2 04/14/25 11:34 BMI result Body Mass Index 30.7 GENERAL APPEARANCE: in no acute distress, pleasant. NECK: no carotid bruit, ++ jugular venous distention. SKIN: no suspicious lesions, warm and dry. HEART: no murmurs, regular rate and rhythm. LUNGS: Bronchial breath sounds right base. ABDOMEN: soft, nontender. EXTREMITIES: + edema. PERIPHERAL PULSES: equal. NEUROLOGIC: No gross deficits, AAO X 3 Objective Labs and Meds 04/12/25 16:19 04/14/25 07:50 Lab results: Laboratory Results - last 24 hr 04/13/25 04/13/25 04/14/25 15:30 20:17 07:42 Hold Purple Top Sodium Potassium Chloride Carbon Dioxide Anion Gap BUN Creatinine Estim Creat Clear Calc Estimated GFR POC Glucose 137 H 147 H 91 Random Glucose Calcium 04/14/25 04/14/25 07:50 11:22 Hold Purple Top SEE NOTE Sodium 139 Potassium 3.6 Chloride 102 Carbon Dioxide 24 Anion Gap 17 BUN 90 H Creatinine 3.23 H Estim Creat Clear Calc 24.1 Estimated GFR 19 POC Glucose 161 H Random Glucose 102 Calcium 8.7 Progress Note: A&P Assessment and plan (1) Congestive heart failure: Status: Acute Plan [age] year gentleman with pneumonia and congestive heart failure. He is getting antibiotics at this point. Clinically continues to be volume overloaded and agree with continuing Lasix along with metolazone 2.5 mg. Monitor I's and O's closely. Blood pressure control is improving. We will follow along with you. Thank you for allowing me to participate in the care of your patient. Please feel free to contact me if you have any questions. Time Spent With Patient Time: Total time managing care of this patient today ____ minutes. Progress Note: Quality Stroke Does the patient have a stroke diagnosis?: No Procedures Date of Service Date of Service: 04/14/25
--- NOTE | 2025-04-14 13:07 | HO.PM.IMPN ---
Subjective Subjective Date of Service: 04/14/25 Interval History: Pt seen this am, he still appears very volume overloaded, states breathing is better, remains in lasix gtt per cards, added metolazone today, per pt's previous psych eval during recent admission, pt has capacity, cont with cef.doxy for PNA reached out to IR re drainage of RLL parapneumonic effusion Review of Systems -ve except as stated above Physical Exam Exam: Exam: Constitutional: Alert, in no distress, overweight. Mental Status: Oriented to person, place and time. Respiratory: Clear to auscultation. No wheezing, or rales OE ,on NC Cardiovascular: S1 S2 regular. +JVD, 4+ leg edema Gastrointestinal: Abdomen soft, non-tender, non-distended. Normal bowel sounds.? Neurologic: Cranial nerves II-XII grossly intact. No focal neurological deficits. Moves all extremities spontaneously.? Skin: bilateral venous stasis ulcer with weeping Musculoskeletal: No cyanosis or clubbing. Psychiatric: Normal mood and affect? Vital Signs: Vital Signs: Last Vital Signs Temp 97.2 F 04/14/25 11:34 Pulse 59 04/14/25 11:34 Resp 20 04/14/25 11:34 BP 121/58 L 04/14/25 11:34 Pulse Ox 97 04/14/25 11:34 O2 Del Method Nasal Cannula 04/14/25 11:34 O2 Flow Rate 2 04/14/25 11:34 BMI result Body Mass Index 30.7 Objective Data Active Medications Acetaminophen (Acetaminophen 325 Mg Tablet) 650 mg PO Q6H PRN PRN Reason: Pain, Mild 1-3,fever,headache Al Hydroxide/Mg Hydroxide (Magnesium Hydrox/Alum Hydrox 30 Ml Oral.Susp) 30 ml PO Q4H PRN PRN Reason: Heartburn Amlodipine Besylate (Amlodipine Besylate 5 Mg Tablet) 5 mg PO DAILY [facility]; Protocol Last Admin: 04/14/25 09:36 Dose: 5 mg Documented By: MARK Apixaban (Apixaban 2.5 Mg Tablet) 2.5 mg PO BID [facility] Last Admin: 04/14/25 09:36 Dose: 2.5 mg Documented By: MARK Atorvastatin Calcium (Atorvastatin Calcium 40 Mg Tablet) 40 mg PO DAILY [facility] Last Admin: 04/14/25 09:35 Dose: 40 mg Documented By: MARK Calcitriol (Calcitriol 0.25 Mcg Capsule) 0.25 mcg PO Q48H [facility] Last Admin: 04/13/25 08:10 Dose: 0.25 mcg Documented By: POLINA Calcium Carbonate (Calcium Carbonate 750 Mg Tab.Chew) 750 mg PO Q4H PRN PRN Reason: Heartburn Carvedilol (Carvedilol 6.25 Mg Tablet) 6.25 mg PO BID [facility]; Protocol Last Admin: 04/14/25 09:35 Dose: 6.25 mg Documented By: MARK Ceftriaxone Sodium (Ceftriaxone Sodium 1 Gm Vial) 1 gm IVPUSH Q24H [facility] Last Admin: 04/13/25 17:58 Dose: 1 gm Documented By: POLINA Dextrose (Dextrose 50 % 25 Gm/50 Ml Syringe) 25 gm IVPUSH Q15M PRN; Protocol PRN Reason: per Hypoglycemia Standing Ord. Doxycycline Monohydrate (Doxycycline Monohydrate 100 Mg Capsule) 100 mg PO Q12H [facility] Last Admin: 04/14/25 09:36 Dose: 100 mg Documented By: MARK Ferrous Sulfate (Ferrous Sulfate 324 Mg Tablet.Dr) 324 mg PO BID [facility] Last Admin: 04/14/25 09:35 Dose: 324 mg Documented By: MARK Glucose (Glucose Gel 15 Gm Gel..Gram.) 15 gm PO Q15M PRN; Protocol PRN Reason: per Hypoglycemia Standing Ord. Furosemide 200 mg/ Sodium (Chloride) 100 mls @ 5 mls/hr IVCONT .Q20H [facility] Last Admin: 04/14/25 05:03 Dose: 10 mg/hr, 5 mls/hr Documented By: AUREA Insulin Human Lispro (Insulin Lispro 100 Unit/Ml 3 Ml Vial) 0 unit SUBCUT QIDACHS [facility]; Protocol Last Admin: 04/14/25 12:06 Dose: 2 unit Documented By: MARK Lorazepam (Lorazepam 0.5 Mg Tablet) 0.5 mg PO BEDTIME PRN PRN Reason: Anxiety and/or insomnia Last Admin: 04/13/25 21:22 Dose: 0.5 mg Documented By: HIEU Magnesium Hydroxide (Milk Of Magnesia 30 Ml Oral.Susp) 30 ml PO DAILY PRN PRN Reason: Constipation Melatonin (Melatonin 3 Mg Tablet) 6 mg PO BEDTIME PRN PRN Reason: Insomnia Metolazone (Metolazone 2.5 Mg Tablet) 2.5 mg PO DAILY [facility] Last Admin: 04/14/25 10:45 Dose: 2.5 mg Documented By: MARK Morphine Sulfate (Morphine Sulfate 2 Mg/Ml Cartridge) 2 mg IVPUSH Q6H PRN; Protocol PRN Reason: Pain, Severe (Pain Scale 7-10) Last Admin: 04/13/25 18:14 Dose: 2 mg Documented By: POLINA Nystatin (Nystatin Powder 15 Gm Bottle) 1 appl TOPICAL BID [facility]; Protocol Last Admin: 04/14/25 10:45 Dose: 1 appl Documented By: MARK Omeprazole (Omeprazole 40 Mg Capsule.Dr) 40 mg PO BID@0630,1630 [facility] Last Admin: 04/14/25 05:03 Dose: 40 mg Documented By: AUREA Ondansetron HCl (Ondansetron Hcl 4 Mg/2 Ml Vial) 4 mg IVPUSH Q8H PRN PRN Reason: Nausea and Vomiting Polyethylene Glycol (Polyethylene Glycol 3350 17 Gm Powd.Pack) 17 gm PO DAILY PRN PRN Reason: Constipation Sodium Chloride (0.9 % Sodium Chloride Flush 3 Ml Syringe) 3 ml IVFLUSH QSHIFT [facility] Last Admin: 04/14/25 09:30 Dose: 3 ml Documented By: MARK Tramadol HCl (Tramadol Hcl 50 Mg Tablet) 50 mg PO Q6H PRN PRN Reason: Breakthrough Pain Last Admin: 04/13/25 21:22 Dose: 50 mg Documented By: HIEU Labs 04/12/25 16:19 04/14/25 07:50 Labs: Laboratory Results - last 24 hr 04/13/25 04/13/25 04/14/25 15:30 20:17 07:42 Hold Purple Top Anion Gap Estim Creat Clear Calc Estimated GFR POC Glucose 137 H 147 H 91 Random Glucose Calcium 04/14/25 04/14/25 07:50 11:22 Hold Purple Top SEE NOTE Anion Gap 17 Estim Creat Clear Calc 24.1 Estimated GFR 19 POC Glucose 161 H Random Glucose 102 Calcium 8.7 Microbiology Microbiology Results: Microbiology 04/12/25 17:30 Blood Culture - Preliminary Blood - Venous No growth after 24 hours. 04/12/25 17:25 Blood Culture - Preliminary Blood - Venous No growth after 24 hours. Assessment and Plan (1) Acute exacerbation of CHF (congestive heart failure): Status: Acute (2) Hypertension: Status: Acute (3) Acute on chronic kidney failure: Status: Acute (4) Acute respiratory failure with hypoxia: Status: Acute (5) Pneumonia: Status: Acute (6) Parapneumonic effusion: Status: Acute Plan This is a 74-year-old female with a PMH significant for?HFpEF (LVEF 52%), AFib on Eliquis, [id number] type 2 diabetes, HTN, HLD, CAD, and hyperparathyroidism who presents to the ED with?swelling in the scrotum and penis. Pt is being admitted for acute respiratory failure due to CHF exacerbation and possible Pneumonia with parapneumonic effusion Acute Respiratory failure with hypoxia due to acute exacerbation of HFpEF complicated by cardiorenal syndrome, medication non-compliance and leaves AMA all the time, 5 times this month alone. Echo 12/05/24 with LVEF 52%, mild pulm HTN, has anasarca change to IV Lasix drip Follow I/O, BMP, BNP Monitor on telemetry Cardiology following metolazone added KELSEY on CKD3 Creatinine 2.5 to 3.5, trending down now Likely cardiorenal syndrome Treat with IV diuretics as above Follow BMP Nephro consulted, reccs appreciated Right Lower lobe PNA with parapneumonic effusion on CT and xray Ceftriaxone and Doxycline, WBC normal and no fever IR consulted, they are to drain effusion, order placed DM last Hba1c 03/25 5.5 can follow POCs and cover with SSI if needed HTN Continue amlodipine, carvedilol, hold lisinopril in light of worsening renal failure Persistent AFib Continue carvedilol and Eliquis HLD Continue atorvastatin Iron deficiency anemia Continue iron supplementation chroniv venous stasis wounds on legs wound care consult GERD Continue Full Code DVT Prophylaxis: Eliquis Pt will require a hospitalization of at least two nights for treatment of?acute CHF exacerbation. Pt will require hospital level care for administration of supplemental oxygen, IV diuretics, and close monitoring of labs and cardiac function, as well as expert evaluation OMN: lasix gtt, IV Abx , effusion drainage by IR Quality Stroke Does the patient have a stroke diagnosis?: No VTE Prior VTE?: No VTE Risk Level:: Medical - moderate - high VTE Device Contraindication: Treatment Not Tolerated VTE Drug Contraindication: N/A - Med Ordered
[2025-04-14 14:12] LABS: Total Protein 6.3 g/dL (6.5-8.0)
[2025-04-14 16:10] LABS: Glucose, Whole Blood 97 mg/dL (60-115)
[2025-04-14 20:43] LABS: Glucose, Whole Blood 137 mg/dL (60-115)
[2025-04-15] VITALS (12 sets, daily range): BP systolic 112–192; BP diastolic 61–85; PULSE 61–80; RESP 12–22; TEMP 36.1–36.9; O2SAT 86–95
[2025-04-15] MEDS: Furosemide 200 MG in 0.9 % Sodium Chloride 80 ML IVCONT (00:09)
[2025-04-15 07:27] LABS: Glucose, Whole Blood 83 mg/dL (60-115)
[2025-04-15 08:07] LABS: Hematocrit 27.6 % (42.0-52.0); Hemoglobin 8.6 g/dl (14.0-18.0)
[2025-04-15 08:20] LABS: Alanine Aminotransferase 12 U/L (0-40); Albumin Level 3.1 g/dL (3.5-5.0); Alkaline Phosphatase 147 U/L (39-117); Anion Gap 16 (12-20); Aspartate Amino Transferase 23 U/L (5-37); Blood Urea Nitrogen 99 mg/dL (9-16); Calcium 8.4 mg/dL (8.4-10.2); Carbon Dioxide 23 mmol/L (22-29); Chloride 102 mmol/L (96-108); Creatinine Clr Calc Pharmacy 24.7; Estimated Glomerular Filt Rate 20; Potassium 3.3 mmol/L (3.3-5.1); Sodium 138 mmol/L (135-145); Total Protein 6.8 g/dL (6.5-8.0)
[2025-04-15] MEDS: Ferrous Sulfate 324 MG TABLET.DR PO ×2 (08:44→21:59)
--- NOTE | 2025-04-15 08:53 | P.PNNP_ITS ---
Subjective Subjective Date of Service: 04/15/25 Interval history: Here with CHF exacerbation/volume overload. Following for KELSEY. creatinine improved slightly from 3.23 yesterday to 3.15 today. remains on lasix drip 10mg/hr and PO metolazone 2.5mg daily. patient states breathing is ok. No events noted. Physical Exam 2 Vital Signs: Vital Signs: Last Vital Signs Temp 97.6 F 04/15/25 07:19 Pulse 63 04/15/25 07:19 Resp 18 04/15/25 07:19 BP 146/69 H 04/15/25 07:19 Pulse Ox 93 04/15/25 07:19 O2 Del Method Nasal Cannula 04/15/25 07:19 O2 Flow Rate 2 04/15/25 07:19 BMI result Body Mass Index 30.7 Const: General: no acute distress, alert and awake Resp: Effort & Inspection: normal respiratory effort and able to speak in complete sentences Auscultation: crackles Cardio: Rate: regular rate Rhythm: regular rhythm Heart sounds: S1 normal heart sound present and S2 normal heart sound present GI: Palpation (GI): Soft to palpation and nontender : General: Yes no CVA tenderness Back/Spine/Pelvis: Back: no CVA tenderness Skin: Rashes: no rashes Extrem: General: Yes edema (+2 BLE edema) Objective Data Labs 04/15/25 07:42 04/15/25 07:42 Labs: Laboratory Results - last 24 hr 04/14/25 04/14/25 04/14/25 11:22 13:47 16:02 Hgb Hct Sodium Potassium Chloride Carbon Dioxide Anion Gap BUN Creatinine Estim Creat Clear Calc Estimated GFR POC Glucose 161 H 97 Random Glucose 106 Calcium Total Bilirubin AST ALT Alkaline Phosphatase Lactate Dehydrogenase 192 Total Protein 6.3 L Albumin 04/14/25 04/15/25 04/15/25 20:32 07:18 07:42 Hgb 8.6 L Hct 27.6 L Sodium 138 Potassium 3.3 Chloride 102 Carbon Dioxide 23 Anion Gap 16 BUN 99 H Creatinine 3.15 H Estim Creat Clear Calc 24.7 Estimated GFR 20 POC Glucose 137 H 83 Random Glucose 82 Calcium 8.4 Total Bilirubin 0.8 AST 23 ALT 12 Alkaline Phosphatase 147 H Lactate Dehydrogenase Total Protein 6.8 Albumin 3.1 L Microbiology Microbiology Results: Microbiology 04/12/25 17:30 Blood - Venous Blood Culture - Preliminary No growth after 48 hours. 04/12/25 17:25 Blood - Venous Blood Culture - Preliminary No growth after 48 hours. Procedures Date of Service Date of Service: 04/15/25 Assessment & Plan Assessment and plan (1) Hypertension: Status: Acute Plan KELSEY on CKD likely related to volume overload from CHF exacerbation. Renal function continues to improve with diuresis. Remains fluid overloaded and needs continued diuresis. Recommend continuing current regimen of lasix 10mg/hr given and PO metolazone patient continues to have signs of fluid overload. Once patient is no longer NPO, recommend 1L fluid restriction to help maintain net negative fluid balance. Recommend daily electrolyte and renal function studies Recommend monitoring I&O's closely, daily weights Recommend avoiding nephrotoxins Continue supportive care Discussed with Dr Elliott. Time Spent With Patient Time: Total time managing care of this patient today ____ minutes. Progress Note: Quality Stroke Does the patient have a stroke diagnosis?: No
--- NOTE | 2025-04-15 10:19 | PM.PNCARD ---
Subjective Subjective Date of Service: 04/15/25 Interval history: Seen examined at bedside. Continues to be volume overloaded. Physical Exam Vital Signs: Last Vital Signs Temp 97.6 F 04/15/25 07:19 Pulse 63 04/15/25 07:19 Resp 18 04/15/25 07:19 BP 146/69 H 04/15/25 07:19 Pulse Ox 93 04/15/25 07:19 O2 Del Method Nasal Cannula 04/15/25 07:19 O2 Flow Rate 2 04/15/25 07:19 BMI result Body Mass Index 30.7 GENERAL APPEARANCE: in no acute distress, pleasant. NECK: no carotid bruit, ++ jugular venous distention. SKIN: no suspicious lesions, warm and dry. HEART: no murmurs, regular rate and rhythm. LUNGS: Bronchial breath sounds right base. ABDOMEN: soft, nontender. EXTREMITIES: + edema. PERIPHERAL PULSES: equal. NEUROLOGIC: No gross deficits, AAO X 3 Objective Labs and Meds 04/15/25 07:42 04/15/25 07:42 Lab results: Laboratory Results - last 24 hr 04/14/25 04/14/25 04/14/25 11:22 13:47 16:02 Hgb Hct Sodium Potassium Chloride Carbon Dioxide Anion Gap BUN Creatinine Estim Creat Clear Calc Estimated GFR POC Glucose 161 H 97 Random Glucose 106 Calcium Total Bilirubin AST ALT Alkaline Phosphatase Lactate Dehydrogenase 192 Total Protein 6.3 L Albumin 04/14/25 04/15/25 04/15/25 20:32 07:18 07:42 Hgb 8.6 L Hct 27.6 L Sodium 138 Potassium 3.3 Chloride 102 Carbon Dioxide 23 Anion Gap 16 BUN 99 H Creatinine 3.15 H Estim Creat Clear Calc 24.7 Estimated GFR 20 POC Glucose 137 H 83 Random Glucose 82 Calcium 8.4 Total Bilirubin 0.8 AST 23 ALT 12 Alkaline Phosphatase 147 H Lactate Dehydrogenase Total Protein 6.8 Albumin 3.1 L Progress Note: A&P Assessment and plan (1) Congestive heart failure: Status: Acute Plan [age] year gentleman with pneumonia and congestive heart failure. He is getting antibiotics at this point. Clinically continues to be volume overloaded and agree with continuing Lasix along with metolazone 2.5 mg. He is getting hypokalemic and his potassium should be repleted and monitored closely. Monitor I's and O's closely. Blood pressure control is improving. We will follow along with you. Thank you for allowing me to participate in the care of your patient. Please feel free to contact me if you have any questions. Time Spent With Patient Time: Total time managing care of this patient today ____ minutes. Progress Note: Quality Stroke Does the patient have a stroke diagnosis?: No Procedures Date of Service Date of Service: 04/15/25
--- NOTE | 2025-04-15 11:10 | MHC.CM.PN ---
Per ROUNDS discussion, Patient is not yet medically cleared for dc (Lasix Drip); home is the goal and CM will continue to follow.
[2025-04-15 11:24] LABS: Glucose, Whole Blood 112 mg/dL (60-115)
--- NOTE | 2025-04-15 12:51 | HO.PM.IMPN ---
Subjective Subjective Date of Service: 04/15/25 Review of Systems Follow up CHF feeling better, breathing is better still on oxygen Physical Exam Exam: Exam: Appearing in no acute distress JVD lung sounds rales heart regular rate rhythm, clear S1, S2 positive bowel sounds, abdomen is soft, nontender neuro patient is alert x3, no focal deficits LE edema bilaterally Vital Signs: Vital Signs: Last Vital Signs Temp 98.4 F 04/15/25 11:22 Pulse 71 04/15/25 11:22 Resp 18 04/15/25 11:22 BP 112/72 04/15/25 11:22 Pulse Ox 95 04/15/25 11:22 O2 Del Method Nasal Cannula 04/15/25 11:22 O2 Flow Rate 2 04/15/25 11:22 BMI result Body Mass Index 30.7 Objective Data Active Medications Acetaminophen (Acetaminophen 325 Mg Tablet) 650 mg PO Q6H PRN PRN Reason: Pain, Mild 1-3,fever,headache Al Hydroxide/Mg Hydroxide (Magnesium Hydrox/Alum Hydrox 30 Ml Oral.Susp) 30 ml PO Q4H PRN PRN Reason: Heartburn Amlodipine Besylate (Amlodipine Besylate 5 Mg Tablet) 5 mg PO DAILY [facility]; Protocol Last Admin: 04/15/25 08:43 Dose: 5 mg Documented By: MARK Atorvastatin Calcium (Atorvastatin Calcium 40 Mg Tablet) 40 mg PO DAILY [facility] Last Admin: 04/15/25 08:44 Dose: 40 mg Documented By: MARK Calcitriol (Calcitriol 0.25 Mcg Capsule) 0.25 mcg PO Q48H [facility] Last Admin: 04/15/25 08:43 Dose: 0.25 mcg Documented By: MARK Calcium Carbonate (Calcium Carbonate 750 Mg Tab.Chew) 750 mg PO Q4H PRN PRN Reason: Heartburn Carvedilol (Carvedilol 6.25 Mg Tablet) 6.25 mg PO BID [facility]; Protocol Last Admin: 04/15/25 08:43 Dose: 6.25 mg Documented By: MARK Ceftriaxone Sodium (Ceftriaxone Sodium 1 Gm Vial) 1 gm IVPUSH Q24H [facility] Last Admin: 04/14/25 18:38 Dose: 1 gm Documented By: MARK Dextrose (Dextrose 50 % 25 Gm/50 Ml Syringe) 25 gm IVPUSH Q15M PRN; Protocol PRN Reason: per Hypoglycemia Standing Ord. Doxycycline Monohydrate (Doxycycline Monohydrate 100 Mg Capsule) 100 mg PO Q12H [facility] Last Admin: 04/15/25 10:40 Dose: 100 mg Documented By: MARK Ferrous Sulfate (Ferrous Sulfate 324 Mg Tablet.) 324 mg PO BID [facility] Last Admin: 04/15/25 08:44 Dose: 324 mg Documented By: MARK Glucose (Glucose Gel 15 Gm Gel..Gram.) 15 gm PO Q15M PRN; Protocol PRN Reason: per Hypoglycemia Standing Ord. Furosemide 200 mg/ Sodium (Chloride) 100 mls @ 5 mls/hr IVCONT .Q20H [facility] Last Admin: 04/15/25 00:09 Dose: 10 mg/hr, 5 mls/hr Documented By: AUREA Insulin Human Lispro (Insulin Lispro 100 Unit/Ml 3 Ml Vial) 0 unit SUBCUT QIDACHS [facility]; Protocol Last Admin: 04/15/25 12:09 Dose: Not Given Documented By: MARK Non-Admin Reason: No Insulin Coverage Lorazepam (Lorazepam 0.5 Mg Tablet) 0.5 mg PO BEDTIME PRN PRN Reason: Anxiety and/or insomnia Last Admin: 04/13/25 21:22 Dose: 0.5 mg Documented By: HIEU Magnesium Hydroxide (Milk Of Magnesia 30 Ml Oral.Susp) 30 ml PO DAILY PRN PRN Reason: Constipation Melatonin (Melatonin 3 Mg Tablet) 6 mg PO BEDTIME PRN PRN Reason: Insomnia Metolazone (Metolazone 2.5 Mg Tablet) 2.5 mg PO DAILY [facility] Last Admin: 04/15/25 08:44 Dose: 2.5 mg Documented By: MARK Morphine Sulfate (Morphine Sulfate 2 Mg/Ml Cartridge) 2 mg IVPUSH Q6H PRN; Protocol PRN Reason: Pain, Severe (Pain Scale 7-10) Last Admin: 04/13/25 18:14 Dose: 2 mg Documented By: POLINA Nystatin (Nystatin Powder 15 Gm Bottle) 1 appl TOPICAL BID [facility]; Protocol Last Admin: 04/15/25 09:54 Dose: 1 appl Documented By: MARK Omeprazole (Omeprazole 40 Mg Capsule.) 40 mg PO BID@0630,1630 [facility] Last Admin: 04/15/25 05:25 Dose: Not Given Documented By: AUREA Non-Admin Reason: NPO Ondansetron HCl (Ondansetron Hcl 4 Mg/2 Ml Vial) 4 mg IVPUSH Q8H PRN PRN Reason: Nausea and Vomiting Polyethylene Glycol (Polyethylene Glycol 3350 17 Gm Powd.Pack) 17 gm PO DAILY PRN PRN Reason: Constipation Sodium Chloride (0.9 % Sodium Chloride Flush 3 Ml Syringe) 3 ml IVFLUSH QSHIFT [facility] Last Admin: 04/15/25 09:51 Dose: Not Given Documented By: MARK Non-Admin Reason: IV Running Tramadol HCl (Tramadol Hcl 50 Mg Tablet) 50 mg PO Q6H PRN PRN Reason: Breakthrough Pain Last Admin: 04/14/25 16:24 Dose: 50 mg Documented By: MARK Labs 04/15/25 07:42 04/15/25 07:42 Labs: Laboratory Results - last 24 hr 04/14/25 04/14/25 04/14/25 13:47 16:02 20:32 Anion Gap Estim Creat Clear Calc Estimated GFR POC Glucose 97 137 H Random Glucose 106 Calcium Total Bilirubin AST ALT Alkaline Phosphatase Lactate Dehydrogenase 192 Total Protein 6.3 L Albumin 04/15/25 04/15/25 04/15/25 07:18 07:42 11:19 Anion Gap 16 Estim Creat Clear Calc 24.7 Estimated GFR 20 POC Glucose 83 112 Random Glucose 82 Calcium 8.4 Total Bilirubin 0.8 AST 23 ALT 12 Alkaline Phosphatase 147 H Lactate Dehydrogenase Total Protein 6.8 Albumin 3.1 L Microbiology Microbiology Results: Microbiology 04/12/25 17:30 Blood Culture - Preliminary Blood - Venous No growth after 48 hours. 04/12/25 17:25 Blood Culture - Preliminary Blood - Venous No growth after 48 hours. Assessment and Plan (1) Acute exacerbation of CHF (congestive heart failure): Status: Acute Plan 74-year-old female with a PMH significant for?HFpEF (LVEF 52%), AFib on Eliquis, [id number] type 2 diabetes, HTN, HLD, CAD, and hyperparathyroidism who presents to the ED with?swelling in the scrotum and penis. Pt is being admitted for acute respiratory failure due to CHF exacerbation and possible Pneumonia with parapneumonic effusion Acute Respiratory failure with hypoxia due to acute exacerbation of HFpEF complicated by cardiorenal syndrome, medication non-compliance and leaves AMA all the time, 5 times this month alone. Echo 12/05/24 with LVEF 52%, mild pulm HTN, has anasarca continue IV Lasix drip Cardiology following> continue IV lasix and metolazone daily Weights, strict intake and output KELSEY on CKD3 trending down Likely cardiorenal syndrome continue diuresis Follow BMP Nephro consulted> continue diuresis, 1 L fluid restriction, daily lytes and renal function Right Lower lobe PNA with parapneumonic effusion on CT and xray Ceftriaxone and Doxycline, WBC normal and no fever IR consulted, they are to drain effusion, order placed DM last Hba1c 03/25 5.5 can follow POCs and cover with SSI if needed HTN Continue amlodipine, carvedilol, hold lisinopril in light of worsening renal failure Persistent AFib Continue carvedilol and Eliquis HLD Continue atorvastatin Iron deficiency anemia Continue iron supplementation chroniv venous stasis wounds on legs wound care consult GERD Continue Full Code DVT Prophylaxis: Eliquis Pt will require a hospitalization of at least two nights for treatment of?acute CHF exacerbation. Pt will require hospital level care for administration of supplemental oxygen, IV diuretics, and close monitoring of labs and cardiac function, as well as expert evaluation OMN: lasix gtt, IV Abx , effusion drainage by IR Quality Stroke Does the patient have a stroke diagnosis?: No VTE Prior VTE?: No VTE Risk Level:: Medical - moderate - high VTE Device Contraindication: Treatment Not Tolerated VTE Drug Contraindication: N/A - Med Ordered
[2025-04-15 15:43] LABS: Glucose, Whole Blood 156 mg/dL (60-115)
[2025-04-15] MEDS: 0.9 % Sodium Chloride Flush 3 ML SYRINGE IVFLUSH (17:45)
--- NOTE | 2025-04-15 18:35 | PC.NURSE ---
agitated , ripped out heart monitor , , yelling I want to go home and repeats all over again . Pt's spoke on the phone with his daughter and she said that she will not to come and pick him up . Pt agitated , repeats I want to go home , walks on the hallway , not giving the reason why he wants to go home . Code assist called to ensure pt's is safe . MD at the bedside , Medical staff trying to reach the family , no effect . Pt disconnected from the Lasix drip b/c pt is pulling on IV
[2025-04-15] MEDS: OLANZapine 10 MG VIAL 5 MG IM (19:48)
--- NOTE | 2025-04-15 20:06 | PC.NURSE ---
Addendum entered by Ivana Cruz RN 04/15/25 22:04: orders for ativan x1. Advised process description writer given prn ultram first, ativan later if ineffective. Addendum entered by Ivana Cruz RN 04/15/25 21:45: 1:1 sitter placed at patient's bedside ~21:00. Patient more agreeable to oxygen with sitter, though continues to refuse IV replacement or dressing changes to bilateral legs. Pt was agreeable to vitals at this time and requesting my pills , requesting pain medication for lower back pain. notified with process description writer request for early administration of ultram for pain rated 9/10 per pt. Original Note: During process description writer's arrival to [facility] hallway prior to receiving report or assuming care, security, RN admissions supervisor, and VIRAJ Duran were visualized outside of this patient's room. This patient was heard at the nurses station yelling from his room repeatedly I want to go home . Staff was observed attempting to redirect this patient, without success. This patient wandered out into the conte and refused to go back to his room, attempted to call his daughter multiple times with voicemail heard. Pt only returned with the encouragement and assistance from security, briefly observed resting in the chair during report. This patient continued to yell and wandered back into the hallway despite redirection and reorientation attempts, again refusing to return to the room for nursing staff. Of note, po zyprexa was previously ordered though this pt refused any po medications or vitals for RN or BRINE ROOM LABORER mutliple times. VIRAJ Duran was made aware in the hallway, advised would change to IM. 19:24, stat consult to psych was placed by VIRAJ Duran for pt agitated, wants to leave AMA, ? capacity; has left AMA 6x this month . Security was again called back to assist nursing staff with maintaining safety and assisting this patient back into his room. Dr. Jair Schuster, now covering, was made aware and presented to the bedside, order for IM zyprexa was administered. Pt currently resting in chair with even and unlabored breathing, no distress noted. Stat consult and ?AMA ability was discussed with Dr. Jair Schuster. advised this process description writer and RN admissions supervisor patient must stay tonight pending consult for capacity/ability to AMA in the morning. No IV present at this time (discontinued prior to assuming care). RN admissions supervisor aware. Please see Medication Restraint Care Flow Sheet for full details. Pt since resting in chair, continues to attempt calling his family, heard leaving multiple voicemails from the nurses station. In-room camera continues to assist with elopement prevention. 20:25: patient agreeable to POC (WNL 142), spo2 and HR only. Spo2 noted to be 85%. Patient refusing to allow staff, BRINE ROOM LABORER ion implant machine operator, to place oxygen. Pt educated on risks, stated I don't care . Patient alert and speaking clear sentences. Refusing to answer orientation questions for this process description writer. Dr. Jair Schuster, RN admissions supervisor, and charge auditor notified; process description writer advised pt continues to exit seek and may need 1:1 supervision. Awaiting orders at this time. Plan of care ongoing.
--- NOTE | 2025-04-15 20:20 | PC.NURSE ---
This ICU Resource RN responded to tiger text from Electrical Mechanical Technician at approx 1850 to assist with?an agitated patient in room 459. Upon arrival, this patient was found yelling, crying, hitting his hands on tables demanding to go home. Several RNs attempted verbal de-escalation without success. MD Adam to bedside to evaluate the patient. Per MD Adam, patient is not competent?to leave AMA r/t agitation and confusion. STAT psych consult ordered and per MD, patient to be evaluated for competency in the morning. MD Adam updated patient's daughter via phone on plan of care.? 1944 - Security called to bedside for increasing agitation and combativeness. Patient given PRN IM Zyprexa for agitation, see OCT. Patient keys taken by security and placed in locker with patient sticker r/t using them as a weapon against staff. This RN remained at bedside to monitor patient and attempt Q15 minute vitals following IM zyprexa administration. Patient remains agitated, yelling, banging hands on furniture, yelling out that he wants to go home. See medication restraint care paper flowsheet for details. At this time patient refusing all interventions, assessments, and vital signs.?
[2025-04-15 20:27] LABS: Glucose, Whole Blood 142 mg/dL (60-115)
--- NOTE | 2025-04-15 20:45 | PM.EVENT ---
Event Note Date of Service: 04/15/25 Event Note: 7:00 PM - Patient became very agitated and wanted to leave AMA once again. Evaluation was challenging due to his agitation. A psychiatry consult was placed due to concern for patient's competency. I have contacted Dr. Burt and discussed the situation. We feel the patient does not really understand the consequences of leaving the hospital prematurely. Security was contacted as the patient was not cooperating. Patient does not understand it is unsafe to go home given his persistently low O2 sats. Patient repeatedly states he wants to go home and insists that he is not sick. Patient required Zyprexa for agitation control. I spoke with his daughter, Esha, who agrees with our interventions and feels Ethan has a poor insight into this condition. Esha also reported that she recently learned that Ethan was diagnosed with schizophrenia in the past and recieved treatment for it. Psych service will evaluate patient tomorrow. Time Spent With Patient Time: Total time managing care of this patient today ____ minutes.
[2025-04-16] VITALS (9 sets, daily range): BP systolic 126–160; BP diastolic 60–77; PULSE 56–77; RESP 12–18; TEMP 35.9–37; O2SAT 79–96; BMI 28.7
[2025-04-16 07:25] LABS: Anion Gap 16 (12-20); Blood Urea Nitrogen 99 mg/dL (9-16); Calcium 8.5 mg/dL (8.4-10.2); Carbon Dioxide 27 mmol/L (22-29); Chloride 98 mmol/L (96-108); Creatinine Clr Calc Pharmacy 24.5; Estimated Glomerular Filt Rate 20; Potassium 3.2 mmol/L (3.3-5.1); Sodium 138 mmol/L (135-145)
[2025-04-16 07:34] LABS: Glucose, Whole Blood 100 mg/dL (60-115)
--- NOTE | 2025-04-16 08:54 | P.PNNP_ITS ---
Subjective Subjective Date of Service: 04/16/25 Interval history: Here with CHF exacerbation/volume overload. Following for KELSEY. creatinine improved slightly from 3.23 yesterday to 3.15 today. remains on lasix drip 10mg/hr and PO metolazone 2.5mg daily. patient states breathing is ok. No events noted. Physical Exam 2 Vital Signs: Vital Signs: Last Vital Signs Temp 98.6 F 04/16/25 07:25 Pulse 62 04/16/25 07:25 Resp 18 04/16/25 07:25 BP 129/61 04/16/25 07:25 Pulse Ox 93 04/16/25 07:25 O2 Del Method Nasal Cannula 04/16/25 07:25 O2 Flow Rate 2 04/16/25 07:25 BMI result Body Mass Index 28.7 Const: General: no acute distress, alert and awake Resp: Effort & Inspection: normal respiratory effort Auscultation: clear to auscultation bilaterally Cardio: Rate: regular rate Rhythm: regular rhythm Heart sounds: S1 normal heart sound present and S2 normal heart sound present GI: Palpation (GI): Soft to palpation and nontender : General: Yes no CVA tenderness Back/Spine/Pelvis: Back: no CVA tenderness Skin: Rashes: no rashes Extrem: General: Yes edema (trace BLE edema) Objective Data Labs 04/15/25 07:42 04/16/25 06:34 Labs: Laboratory Results - last 24 hr 04/15/25 04/15/25 04/15/25 11:19 15:37 20:22 Hold Purple Top Sodium Potassium Chloride Carbon Dioxide Anion Gap BUN Creatinine Estim Creat Clear Calc Estimated GFR POC Glucose 112 156 H 142 H Random Glucose Calcium 04/16/25 04/16/25 04/16/25 06:33 06:34 07:29 Hold Purple Top SEE NOTE Sodium 138 Potassium 3.2 L Chloride 98 Carbon Dioxide 27 Anion Gap 16 BUN 99 H Creatinine 3.08 H Estim Creat Clear Calc 24.5 Estimated GFR 20 POC Glucose 100 Random Glucose 105 Calcium 8.5 Microbiology Microbiology Results: Microbiology 04/12/25 17:30 Blood - Venous Blood Culture - Preliminary No growth after 48 hours. 04/12/25 17:25 Blood - Venous Blood Culture - Preliminary No growth after 48 hours. Procedures Date of Service Date of Service: 04/16/25 Assessment & Plan Assessment and plan (1) Hypertension: Status: Acute Plan KELSEY on CKD likely related to volume overload from CHF exacerbation. Renal function continues to improve gradually with diuresis. Patient's fluid status is improving. Recommend increase furosemide 40mg PO BID to 80mg PO BID continue metolazone 2.5mg PO daily Recommend 1L fluid restriction to help maintain net negative fluid balance. Recommend daily electrolyte and renal function studies Recommend monitoring I&O's closely, daily weights Recommend avoiding nephrotoxins Continue supportive care Discussed with Dr Elliott. Time Spent With Patient Time: Total time managing care of this patient today ____ minutes. Progress Note: Quality Stroke Does the patient have a stroke diagnosis?: No
[2025-04-16 09:26] LABS: Procalcitonin 0.15 ng/mL
[2025-04-16] MEDS: Potassium Chloride ER 20 MEQ TAB.ER.PRT 40 MEQ PO (09:45)
[2025-04-16] MEDS: Ferrous Sulfate 324 MG TABLET.DR PO ×2 (09:48→20:44)
--- NOTE | 2025-04-16 10:04 | PM.PNCARD ---
Subjective Subjective Date of Service: 04/16/25 Interval history: Seen examined at bedside. He is asking whether he can go home. I have explained to him that he has significant volume overload currently and should not go home and he is agreeable to stay. Physical Exam Vital Signs: Last Vital Signs Temp 98.6 F 04/16/25 07:25 Pulse 74 04/16/25 09:46 Resp 18 04/16/25 07:25 BP 129/61 04/16/25 09:49 Pulse Ox 93 04/16/25 07:25 O2 Del Method Nasal Cannula 04/16/25 07:25 O2 Flow Rate 2 04/16/25 07:25 BMI result Body Mass Index 28.7 GENERAL APPEARANCE: in no acute distress, pleasant. NECK: no carotid bruit, ++ jugular venous distention. SKIN: no suspicious lesions, warm and dry. HEART: no murmurs, regular rate and rhythm. LUNGS: Bronchial breath sounds right base. ABDOMEN: soft, nontender. EXTREMITIES: + edema. PERIPHERAL PULSES: equal. NEUROLOGIC: No gross deficits, AAO X 3 Objective Labs and Meds 04/15/25 07:42 04/16/25 06:34 Lab results: Laboratory Results - last 24 hr 04/15/25 04/15/25 04/15/25 11:19 15:37 20:22 Hold Purple Top Sodium Potassium Chloride Carbon Dioxide Anion Gap BUN Creatinine Estim Creat Clear Calc Estimated GFR POC Glucose 112 156 H 142 H Random Glucose Calcium Procalcitonin 04/16/25 04/16/25 04/16/25 06:33 06:34 07:29 Hold Purple Top SEE NOTE Sodium 138 Potassium 3.2 L Chloride 98 Carbon Dioxide 27 Anion Gap 16 BUN 99 H Creatinine 3.08 H Estim Creat Clear Calc 24.5 Estimated GFR 20 POC Glucose 100 Random Glucose 105 Calcium 8.5 Procalcitonin 0.15 Progress Note: A&P Assessment and plan (1) Congestive heart failure: Status: Acute Plan [age] year gentleman with pneumonia and congestive heart failure. He has advanced CKD. Diuresing up to 2 L per day and creatinine is him moving slowly. Still quite volume overloaded. I think we continue the diuretics. Monitor potassium and electrolytes closely. Monitor I's and O's closely. Blood pressure control is improving. We will follow along with you. Thank you for allowing me to participate in the care of your patient. Please feel free to contact me if you have any questions. Time Spent With Patient Time: Total time managing care of this patient today ____ minutes. Progress Note: Quality Stroke Does the patient have a stroke diagnosis?: No Procedures Date of Service Date of Service: 04/16/25
--- NOTE | 2025-04-16 10:40 | P.PNNPD_ITS ---
Subjective Subjective Date of Service: 04/17/25 This patient was seen during dialysis. Interval history: Here with CHF exacerbation/volume overload. Following for KELSEY. creatinine improved slightly from 3.08 yesterday to 2.78 today. remains on lasix drip 10mg/hr and PO metolazone 2.5mg daily. patient states breathing is ok, reports he is comfortable. No events noted. Physical Exam Vital Signs: Vital Signs: Last Vital Signs Temp 98.6 F 04/16/25 07:25 Pulse 74 04/16/25 09:46 Resp 18 04/16/25 07:25 BP 129/61 04/16/25 09:49 Pulse Ox 93 04/16/25 07:25 O2 Del Method Nasal Cannula 04/16/25 07:25 O2 Flow Rate 2 04/16/25 07:25 BMI result Body Mass Index 28.7 Const: General: no acute distress, alert and awake Resp: Effort & Inspection: normal respiratory effort Auscultation: clear to auscultation bilaterally Cardio: Rate: regular rate Rhythm: regular rhythm Heart sounds: S1 nor mal heart sound present and S2 normal heart sound present GI: Palpation (GI): Soft to palpation and nontender : General: Yes no CVA tenderness Back/Spine/Pelvis: Back: no CVA tenderness Skin: Rashes: no rashes Extrem: General: Yes edema (trace BLE edema) Assessment & Plan Assessment and plan (1) Hypertension: Status: Acute Plan KELSEY on CKD likely related to volume overload from CHF exacerbation. Renal function continues to improve gradually with diuresis. Patient's fluid status is improving. Recommend Recommend 1L fluid restriction to help maintain net negative fluid balance. Recommend daily electrolyte and renal function studies Recommend monitoring I&O's closely, daily weights Recommend avoiding nephrotoxins Continue supportive care Discussed with Dr Elliott. Time Spent With Patient Time: Total time managing care of this patient today ____ minutes. Procedures Date of Service Date of Service: 04/17/25
[2025-04-16 11:37] LABS: Glucose, Whole Blood 131 mg/dL (60-115)
[2025-04-16] MEDS: Furosemide 200 MG in 0.9 % Sodium Chloride 80 ML IVCONT (13:12)
[2025-04-16 14:25] LABS: MRSA Nasal PCR NEGATIVE (Negative); SA Nasal PCR NEGATIVE (Negative)
--- NOTE | 2025-04-16 16:26 | P.CNPS_ITS ---
History of Present Illness Date of Service: 04/16/25 at 1313 in Room #459 Chief Complaint: acute decompensated heart failure Reason for Consult: Capacity? Left AMA 6 times in March. Requesting physician: Itzel Duran Discussed with referring provider: Yes (Case discussed with Covering provider Dr. Yung ) Sources of Information: patient interviewed, chart reviewed and crisis/core team assessment reviewed HPI Narrative: Per ED note 0n 04/12: patient is a 74-year-old male history of CHF, chance anemia in chronic kidney disease, HTN, CKD stage IV, cardiomyopathy, stroke, chronic AFib on Eliquis, DM, HLD, recently was hospitalized for CHF and lower extremity swelling then patient has signed out AMA on 04/07 patient returned today by ambulance for evaluation of chest pain and shortness of breath. Patient seen today at 1313 in his room 459 d/t request of if patient has capacity to make medical decision as patient has been signed out AMA 6 times last month. Patient was seen in room with the presence of the sitter and assigned nurse in the room to hang some IV med. Patient reports reason for being the hospital this time I cannot breath well . Report he called 911 himself to check him self in the hospital. He report high function at home wihout help from family memeber even though his daughter sometime coming in to help him with meds. Normally, he cooks and perform ADL's himself, manage his own meds and states he has been taking meds. Currently but his is staying with their daughter. He understand he has medical conditions that needed to complete treatment before discharge. He states I want treatment and states that he will complete treatment and will follow with medical team's decision. Remind him that he has been sigined himself out 6 times last month and was back and forth to the hospital as he has not got better before leaving AMA. Patient denies SI/SIB/HI/AVH. I am islam: implied that he cannot take her own life away. Denies depression/anxiety. Denies psychiatric hx. He is A+Ox3. Not month or current date but current year. Denies recent fall,report bruises are from medical tape and IM. Denies drug use or alcohol issues. Report sleep and appetite have been good. Past Psychiatric History: Denies Defer to medical team. Personal & Social History: Marred twice., Have 5 children and they are all grown up and independent Review of Systems Review of Systems Denies pain. Denies SOB. He is on oxygen therapy. Not labored breathing. Bruises observed all over arms from medical tape and procedures/IV [facility] Medical History Anemia in chronic kidney disease (CKD) Hypertension Uncontrolled hypertension Congestive heart failure CKD (chronic kidney disease) CHF (congestive heart failure) CKD (chronic kidney disease) stage 4, GFR 15-29 ml/min Obesity (BMI 30.0-34.9) Cardiomyopathy Stroke Chronic atrial fibrillation CKD (chronic kidney disease) Former smoker Depression Diabetes High cholesterol Surgical History History of aneurysm History of shoulder surgery Family History: twice. Have 5 adult children. Social History: . Stay in home himself as his currently with their daughter. Able to perform ADL's himself, cook himself. Substance History: Denies Trauma History: not discuss Diagnostics Vital Signs (24Hr): Vital Signs - 24 hr 04/15/25 19:48 04/15/25 20:03 04/15/25 20:18 Temperature Pulse Rate Respiratory Rate 20 22 H 20 Blood Pressure Pulse Oximetry Oxygen Delivery Method Oxygen Flow Rate 04/15/25 20:33 04/15/25 20:48 04/15/25 20:48 Temperature Pulse Rate 76 78 78 Respiratory Rate 18 16 16 Blood Pressure Pulse Oximetry 86 L 86 L Oxygen Delivery Method Room Air Room Air Oxygen Flow Rate 04/15/25 21:36 04/15/25 22:59 04/16/25 03:28 Temperature 97.6 F 97.6 F 96.9 F Pulse Rate 80 78 56 Respiratory Rate 12 12 12 Blood Pressure 163/85 H 192/79 H 147/65 H Pulse Oximetry 95 93 79 L Oxygen Delivery Method Nasal Cannula Nasal Cannula Nasal Cannula Oxygen Flow Rate 2 2 2 04/16/25 07:25 04/16/25 09:46 04/16/25 09:49 Temperature 98.6 F Pulse Rate 62 74 Respiratory Rate 18 Blood Pressure 129/61 129/61 129/61 Pulse Oximetry 93 Oxygen Delivery Method Nasal Cannula Oxygen Flow Rate 2 04/16/25 09:49 04/16/25 11:22 04/16/25 11:50 Temperature 96.6 F L Pulse Rate 64 Respiratory Rate 18 Blood Pressure 129/61 159/72 H 159/72 H Pulse Oximetry 92 Oxygen Delivery Method Nasal Cannula Oxygen Flow Rate 2 BMI result Body Mass Index 28.7 Labs 04/15/25 07:42 04/16/25 06:34 Labs: Laboratory Results - last 48 hr 04/14/25 04/15/25 04/15/25 20:32 07:18 07:42 Hgb 8.6 L Hct 27.6 L Hold Purple Top Sodium 138 Potassium 3.3 Chloride 102 Carbon Dioxide 23 Anion Gap 16 BUN 99 H Creatinine 3.15 H Estim Creat Clear Calc 24.7 Estimated GFR 20 POC Glucose 137 H 83 Random Glucose 82 Calcium 8.4 Total Bilirubin 0.8 AST 23 ALT 12 Alkaline Phosphatase 147 H Total Protein 6.8 Albumin 3.1 L Procalcitonin Nasal Screen MRSA (PCR) Nasal S. aureus Screen Nasal MRSA/S.aureus Interp 04/15/25 04/15/25 04/15/25 11:19 15:37 20:22 Hgb Hct Hold Purple Top Sodium Potassium Chloride Carbon Dioxide Anion Gap BUN Creatinine Estim Creat Clear Calc Estimated GFR POC Glucose 112 156 H 142 H Random Glucose Calcium Total Bilirubin AST ALT Alkaline Phosphatase Total Protein Albumin Procalcitonin Nasal Screen MRSA (PCR) Nasal S. aureus Screen Nasal MRSA/S.aureus Interp 04/16/25 04/16/25 04/16/25 06:33 06:34 07:29 Hgb Hct Hold Purple Top SEE NOTE Sodium 138 Potassium 3.2 L Chloride 98 Carbon Dioxide 27 Anion Gap 16 BUN 99 H Creatinine 3.08 H Estim Creat Clear Calc 24.5 Estimated GFR 20 POC Glucose 100 Random Glucose 105 Calcium 8.5 Total Bilirubin AST ALT Alkaline Phosphatase Total Protein Albumin Procalcitonin 0.15 Nasal Screen MRSA (PCR) Nasal S. aureus Screen Nasal MRSA/S.aureus Interp 04/16/25 04/16/25 11:30 12:43 Hgb Hct Hold Purple Top Sodium Potassium Chloride Carbon Dioxide Anion Gap BUN Creatinine Estim Creat Clear Calc Estimated GFR POC Glucose 131 H Random Glucose Calcium Total Bilirubin AST ALT Alkaline Phosphatase Total Protein Albumin Procalcitonin Nasal Screen MRSA (PCR) NEGATIVE Nasal S. aureus Screen NEGATIVE Nasal MRSA/S.aureus Interp SEE NOTE Mental Status Exam Mental Status Exam Narrative: He is A+O x3, knowing situation led to hospitalization. He has been refused treatment but stared agree to get help this morning. Will stay until treatment is finished and medical condition improved. Thought process and thought content are WNL. No SI/SIB/HI/AVH. No psychiatric hx. He is a function 74 y.o at home. Manage his own self care and medication at home. Mood is good . Some mild cognitive impaired which could be at baseline and age appropriate. Understand his own medical condition and have capacity to make his own decision. Medications Medications Current Medications Acetaminophen (Acetaminophen 325 Mg Tablet) 650 mg PO Q6H PRN PRN Reason: Pain, Mild 1-3,fever,headache Al Hydroxide/Mg Hydroxide (Magnesium Hydrox/Alum Hydrox 30 Ml Oral.Susp) 30 ml PO Q4H PRN PRN Reason: Heartburn Amlodipine Besylate (Amlodipine Besylate 5 Mg Tablet) 5 mg PO DAILY [facility]; Protocol Last Admin: 04/16/25 09:49 Dose: 5 mg Atorvastatin Calcium (Atorvastatin Calcium 40 Mg Tablet) 40 mg PO DAILY [facility] Last Admin: 04/16/25 09:49 Dose: 40 mg Calcitriol (Calcitriol 0.25 Mcg Capsule) 0.25 mcg PO Q48H [facility] Last Admin: 04/15/25 08:43 Dose: 0.25 mcg Calcium Carbonate (Calcium Carbonate 750 Mg Tab.Chew) 750 mg PO Q4H PRN PRN Reason: Heartburn Carvedilol (Carvedilol 6.25 Mg Tablet) 6.25 mg PO BID [facility]; Protocol Last Admin: 04/16/25 09:46 Dose: 6.25 mg Ceftriaxone Sodium (Ceftriaxone Sodium 1 Gm Vial) 1 gm IVPUSH Q24H [facility] Last Admin: 04/15/25 17:47 Dose: 1 gm Dextrose (Dextrose 50 % 25 Gm/50 Ml Syringe) 25 gm IVPUSH Q15M PRN; Protocol PRN Reason: per Hypoglycemia Standing Ord. Doxycycline Monohydrate (Doxycycline Monohydrate 100 Mg Capsule) 100 mg PO Q12H [facility] Last Admin: 04/16/25 09:48 Dose: 100 mg Ferrous Sulfate (Ferrous Sulfate 324 Mg Tablet.Dr) 324 mg PO BID [facility] Last Admin: 04/16/25 09:48 Dose: 324 mg Glucose (Glucose Gel 15 Gm Gel..Gram.) 15 gm PO Q15M PRN; Protocol PRN Reason: per Hypoglycemia Standing Ord. Furosemide 200 mg/ Sodium (Chloride) 100 mls @ 5 mls/hr IVCONT .Q20H [facility] Last Admin: 04/16/25 13:12 Dose: 10 mg/hr, 5 mls/hr Insulin Human Lispro (Insulin Lispro 100 Unit/Ml 3 Ml Vial) 0 unit SUBCUT QIDACHS [facility]; Protocol Last Admin: 04/16/25 11:59 Dose: Not Given Lorazepam (Lorazepam 0.5 Mg Tablet) 0.5 mg PO BEDTIME PRN PRN Reason: Anxiety and/or insomnia Last Admin: 04/13/25 21:22 Dose: 0.5 mg Magnesium Hydroxide (Milk Of Magnesia 30 Ml Oral.Susp) 30 ml PO DAILY PRN PRN Reason: Constipation Melatonin (Melatonin 3 Mg Tablet) 6 mg PO BEDTIME PRN PRN Reason: Insomnia Metolazone (Metolazone 2.5 Mg Tablet) 2.5 mg PO DAILY [facility] Last Admin: 04/16/25 09:49 Dose: 2.5 mg Morphine Sulfate (Morphine Sulfate 2 Mg/Ml Cartridge) 2 mg IVPUSH Q6H PRN; Protocol PRN Reason: Pain, Severe (Pain Scale 7-10) Last Admin: 04/13/25 18:14 Dose: 2 mg Nystatin (Nystatin Powder 15 Gm Bottle) 1 appl TOPICAL BID [facility]; Protocol Last Admin: 04/16/25 11:24 Dose: 1 appl Olanzapine (Olanzapine 10 Mg Vial) 5 mg IM ONCE PRN PRN Reason: agitation Last Admin: 04/15/25 19:48 Dose: 5 mg Omeprazole (Omeprazole 40 Mg Capsule.Dr) 40 mg PO BID@0630,1630 [facility] Last Admin: 04/16/25 06:29 Dose: 40 mg Ondansetron HCl (Ondansetron Hcl 4 Mg/2 Ml Vial) 4 mg IVPUSH Q8H PRN PRN Reason: Nausea and Vomiting Polyethylene Glycol (Polyethylene Glycol 3350 17 Gm Powd.Pack) 17 gm PO DAILY PRN PRN Reason: Constipation Sodium Chloride (0.9 % Sodium Chloride Flush 3 Ml Syringe) 3 ml IVFLUSH QSHIFT [facility] Last Admin: 04/16/25 07:41 Dose: Not Given Tramadol HCl (Tramadol Hcl 50 Mg Tablet) 50 mg PO Q6H PRN PRN Reason: Breakthrough Pain Last Admin: 04/15/25 21:59 Dose: 50 mg Allergies Allergies Allergy/AdvReac Type Severity Reaction Status Date / Time No Known Allergies (No Known Allergy Verified 04/12/25 15:38 Allergies*) Assessment & Plan Assessment & Plan (1) Encounter for assessment of healthcare decision-making capacity: Status: Acute Code(s): Z02.79 - Encounter for issue of other medical certificate Plan Patient has capacity to make his own medication conditions. He understand underline of medical condition that led to hospitalization. He accepted treatment started this morning prior to meeting with this provider. He states that he wants treatment and will be here until medical condition improved and will follow through treatment plan. No medication changes made by this provider. Recommend to continue with current plan per medical team. As now patient has been compliant with medication offered by medical team. Dr. Wilson is aware. No behavior issues. Total time managing care of this patient today ____ minutes. Patient educated on: medical condition Informed Consent: understands
[2025-04-16 16:31] LABS: Glucose, Whole Blood 122 mg/dL (60-115)
--- NOTE | 2025-04-16 16:43 | HO.PM.IMPN ---
Subjective Subjective Date of Service: 04/16/25 Interval History: tried to leave AMA last night, IV removed this AM calm, cooperative, agrees to stay seen by Psych, assessed to have competency c/o dyspnea, edema Review of Systems Review of Systems: Yes all other systems are reviewed and are negative Physical Exam Vital Signs: Vital Signs: Last Vital Signs Temp 96.6 F L 04/16/25 11:50 Pulse 64 04/16/25 11:50 Resp 18 04/16/25 11:50 BP 159/72 H 04/16/25 11:50 Pulse Ox 92 04/16/25 11:50 O2 Del Method Nasal Cannula 04/16/25 11:50 O2 Flow Rate 2 04/16/25 11:50 BMI result Body Mass Index 28.7 Gen: in no acute distress HEENT: sclera anicteric, moist mucus membranes Neck: supple, JVD Lungs: diminished R base Heart: regular rate and rhythm, no murmurs Abd: soft, non-tender, non-distended Ext: bilatearl 2+ leg edema Skin: warm/well-perfused Neuro: alert and oriented x3, no focal findings Psych: appropriate affect Objective Data Active Medications Acetaminophen (Acetaminophen 325 Mg Tablet) 650 mg PO Q6H PRN PRN Reason: Pain, Mild 1-3,fever,headache Al Hydroxide/Mg Hydroxide (Magnesium Hydrox/Alum Hydrox 30 Ml Oral.Susp) 30 ml PO Q4H PRN PRN Reason: Heartburn Amlodipine Besylate (Amlodipine Besylate 5 Mg Tablet) 5 mg PO DAILY [facility]; Protocol Last Admin: 04/16/25 09:49 Dose: 5 mg Documented By: ROSARIO Atorvastatin Calcium (Atorvastatin Calcium 40 Mg Tablet) 40 mg PO DAILY [facility] Last Admin: 04/16/25 09:49 Dose: 40 mg Documented By: ROSARIO Calcitriol (Calcitriol 0.25 Mcg Capsule) 0.25 mcg PO Q48H [facility] Last Admin: 04/15/25 08:43 Dose: 0.25 mcg Documented By: MARK Calcium Carbonate (Calcium Carbonate 750 Mg Tab.Chew) 750 mg PO Q4H PRN PRN Reason: Heartburn Carvedilol (Carvedilol 6.25 Mg Tablet) 6.25 mg PO BID [facility]; Protocol Last Admin: 04/16/25 09:46 Dose: 6.25 mg Documented By: ROSARIO Ceftriaxone Sodium (Ceftriaxone Sodium 1 Gm Vial) 1 gm IVPUSH Q24H [facility] Last Admin: 04/15/25 17:47 Dose: 1 gm Documented By: MARK Dextrose (Dextrose 50 % 25 Gm/50 Ml Syringe) 25 gm IVPUSH Q15M PRN; Protocol PRN Reason: per Hypoglycemia Standing Ord. Doxycycline Monohydrate (Doxycycline Monohydrate 100 Mg Capsule) 100 mg PO Q12H [facility] Last Admin: 04/16/25 09:48 Dose: 100 mg Documented By: ROSARIO Ferrous Sulfate (Ferrous Sulfate 324 Mg Tablet.Dr) 324 mg PO BID [facility] Last Admin: 04/16/25 09:48 Dose: 324 mg Documented By: ROSARIO Glucose (Glucose Gel 15 Gm Gel..Gram.) 15 gm PO Q15M PRN; Protocol PRN Reason: per Hypoglycemia Standing Ord. Furosemide 200 mg/ Sodium (Chloride) 100 mls @ 5 mls/hr IVCONT .Q20H [facility] Last Admin: 04/16/25 13:12 Dose: 10 mg/hr, 5 mls/hr Documented By: ROSARIO Insulin Human Lispro (Insulin Lispro 100 Unit/Ml 3 Ml Vial) 0 unit SUBCUT QIDACHS [facility]; Protocol Last Admin: 04/16/25 16:41 Dose: Not Given Documented By: ROSARIO Non-Admin Reason: No Insulin Coverage Lorazepam (Lorazepam 0.5 Mg Tablet) 0.5 mg PO BEDTIME PRN PRN Reason: Anxiety and/or insomnia Last Admin: 04/13/25 21:22 Dose: 0.5 mg Documented By: HIEU Magnesium Hydroxide (Milk Of Magnesia 30 Ml Oral.Susp) 30 ml PO DAILY PRN PRN Reason: Constipation Melatonin (Melatonin 3 Mg Tablet) 6 mg PO BEDTIME PRN PRN Reason: Insomnia Metolazone (Metolazone 2.5 Mg Tablet) 2.5 mg PO DAILY [facility] Last Admin: 04/16/25 09:49 Dose: 2.5 mg Documented By: ROSARIO Morphine Sulfate (Morphine Sulfate 2 Mg/Ml Cartridge) 2 mg IVPUSH Q6H PRN; Protocol PRN Reason: Pain, Severe (Pain Scale 7-10) Last Admin: 04/13/25 18:14 Dose: 2 mg Documented By: POLINA Nystatin (Nystatin Powder 15 Gm Bottle) 1 appl TOPICAL BID [facility]; Protocol Last Admin: 04/16/25 11:24 Dose: 1 appl Documented By: ROSARIO Olanzapine (Olanzapine 10 Mg Vial) 5 mg IM ONCE PRN PRN Reason: agitation Last Admin: 04/15/25 19:48 Dose: 5 mg Documented By: CHRISTOPHER Comments: Administered for agitation Omeprazole (Omeprazole 40 Mg Capsule.Dr) 40 mg PO BID@0630,1630 [facility] Last Admin: 04/16/25 16:41 Dose: 40 mg Documented By: ROSARIO Ondansetron HCl (Ondansetron Hcl 4 Mg/2 Ml Vial) 4 mg IVPUSH Q8H PRN PRN Reason: Nausea and Vomiting Polyethylene Glycol (Polyethylene Glycol 3350 17 Gm Powd.Pack) 17 gm PO DAILY PRN PRN Reason: Constipation Sodium Chloride (0.9 % Sodium Chloride Flush 3 Ml Syringe) [facility] Last Admin: 04/16/25 16:42 Dose: Not Given Documented By: ROSARIO Non-Admin Reason: IV Running Tramadol HCl (Tramadol Hcl 50 Mg Tablet) 50 mg PO Q6H PRN PRN Reason: Breakthrough Pain Last Admin: 04/15/25 21:59 Dose: 50 mg Documented By: PASTORA Labs 04/15/25 07:42 04/16/25 06:34 Labs: Laboratory Results - last 24 hr 04/15/25 04/16/25 04/16/25 20:22 06:33 06:34 Hold Purple Top SEE NOTE Anion Gap 16 Estim Creat Clear Calc 24.5 Estimated GFR 20 POC Glucose 142 H Random Glucose 105 Calcium 8.5 Procalcitonin 0.15 Nasal Screen MRSA (PCR) Nasal S. aureus Screen Nasal MRSA/S.aureus Interp 04/16/25 04/16/25 04/16/25 07:29 11:30 12:43 Hold Purple Top Anion Gap Estim Creat Clear Calc Estimated GFR POC Glucose 100 131 H Random Glucose Calcium Procalcitonin Nasal Screen MRSA (PCR) NEGATIVE Nasal S. aureus Screen NEGATIVE Nasal MRSA/S.aureus Interp SEE NOTE 04/16/25 16:27 Hold Purple Top Anion Gap Estim Creat Clear Calc Estimated GFR POC Glucose 122 H Random Glucose Calcium Procalcitonin Nasal Screen MRSA (PCR) Nasal S. aureus Screen Nasal MRSA/S.aureus Interp Assessment and Plan (1) Acute exacerbation of CHF (congestive heart failure): Status: Acute Plan d5, 74yo M with HFpEF, AF on apixaban, DM2, HTN, HLD, CAD, hyperPTH presenting with scrotal swelling, found to be hypoxic due to CHF + pneumonia/parapneumonic effusion 5 prior AMAs in last month AHRF due to acute-chronic HFpEF with KELSEY/CKD3 due to cardiorenal syndrome - TTE 12/05/24 LVEF 52% - resume IV furosemide drip, continue PO metolazone, negative 6.4L cumulatively this admission thus far, Cardiology + Nephrology following - monitor lytes, I/O, weights, BNP RLL PNA with parapneumonic effusion - held off on thoracentesis pending further diuresis - ceftriaxone + doxycycline 04/12-, BCx negative, MRSA negative, urinary antigens for Legionella and pneumococcus pending, PCT low HTN - amlodipine, carvedilol; lisinopril held due to KELSEY hypoK - replete repeated AMAs - per Psychiatry, has competency DM2 - A1c only 5.5 persistent AF - carvedilol, apixaban HLD - atorvastatin PATRICE - PO Fe chronic venous stasis - Wound Care: Bilateral legs: cleanse with saline, apply durafiber ag, cover with ABD pads, hold in place with rolled gauze or stretch netting, change every other day and PRN GERD - PPI VTE ppx - apixaban dispo - TBD In my clinical judgment, the patient requires continued inpatient hospitalization for the following reasons: IV diuresis, possible pleural effusion drainage Quality Stroke Does the patient have a stroke diagnosis?: No VTE Prior VTE?: No VTE Risk Level:: Medical - moderate - high VTE Device Contraindication: Treatment Not Tolerated VTE Drug Contraindication: N/A - Med Ordered
[2025-04-16 19:53] LABS: Glucose, Whole Blood 127 mg/dL (60-115)
[2025-04-17 03:33] VITALS: BP 149/70; PULSE 59; RESP 18; TEMP 36.4; O2SAT 94
[2025-04-17 06:00] VITALS: BMI 28.6
[2025-04-17 07:14] LABS: Anion Gap 16 (12-20); Blood Urea Nitrogen 103 mg/dL (9-16); Calcium 8.5 mg/dL (8.4-10.2); Carbon Dioxide 28 mmol/L (22-29); Chloride 96 mmol/L (96-108); Creatinine Clr Calc Pharmacy 27.1; Estimated Glomerular Filt Rate 23; Potassium 3.0 mmol/L (3.3-5.1); Sodium 137 mmol/L (135-145)
[2025-04-17 07:28] LABS: B Type Natriuretic Peptide 1713 pg/mL (<100)
[2025-04-17 07:47] LABS: Glucose, Whole Blood 86 mg/dL (60-115)
[2025-04-17 08:00] VITALS: BP 152/72; PULSE 60; RESP 20; TEMP 36.6; O2SAT 96
[2025-04-17] MEDS: Ferrous Sulfate 324 MG TABLET.DR PO ×2 (09:08→21:48)
[2025-04-17] MEDS: Potassium Chloride ER 20 MEQ TAB.ER.PRT 40 MEQ PO ×2 (09:09→21:47)
--- NOTE | 2025-04-17 10:10 | P.PNNP_ITS ---
Subjective Subjective Date of Service: 04/17/25 Interval history: Here with CHF exacerbation/volume overload. Following for KELSEY. creatinine improved slightly from 3.08 yesterday to 2.78 today. remains on lasix drip 10mg/hr and PO metolazone 2.5mg daily. patient states breathing is ok, reports he is comfortable. No events noted. Physical Exam 2 Vital Signs: Vital Signs: Last Vital Signs Temp 97.9 F 04/17/25 08:00 Pulse 60 04/17/25 08:00 Resp 20 04/17/25 08:00 BP 152/72 H 04/17/25 08:00 Pulse Ox 96 04/17/25 08:00 O2 Del Method Nasal Cannula 04/17/25 08:00 O2 Flow Rate 2 04/17/25 08:00 BMI result Body Mass Index 28.6 Const: General: no acute distress, alert and awake Resp: Effort & Inspection: normal respiratory effort Auscultation: clear to auscultation bilaterally Cardio: Rate: regular rate Rhythm: regular rhythm Heart sounds: S1 normal heart sound present and S2 normal heart sound present GI: Palpation (GI): Soft to palpation and nontender : General: Yes no CVA tenderness Back/Spine/Pelvis: Back: no CVA tenderness Skin: Rashes: no rashes Extrem: General: Yes edema (trace BLE edema) Objective Data Labs 04/15/25 07:42 04/17/25 06:24 Labs: Laboratory Results - last 24 hr 04/16/25 04/16/25 04/16/25 11:30 12:43 16:27 Sodium Potassium Chloride Carbon Dioxide Anion Gap BUN Creatinine Estim Creat Clear Calc Estimated GFR POC Glucose 131 H 122 H Random Glucose Calcium B-Natriuretic Peptide Nasal Screen MRSA (PCR) NEGATIVE Nasal S. aureus Screen NEGATIVE Nasal MRSA/S.aureus Interp SEE NOTE 04/16/25 04/17/25 04/17/25 19:35 06:24 07:41 Sodium 137 Potassium 3.0 L Chloride 96 Carbon Dioxide 28 Anion Gap 16 BUN 103 H Creatinine 2.78 H Estim Creat Clear Calc 27.1 Estimated GFR 23 POC Glucose 127 H 86 Random Glucose 92 Calcium 8.5 B-Natriuretic Peptide 1713 H Nasal Screen MRSA (PCR) Nasal S. aureus Screen Nasal MRSA/S.aureus Interp Microbiology Microbiology Results: Microbiology 04/12/25 17:30 Blood - Venous Blood Culture - Preliminary No growth after 48 hours. 04/12/25 17:25 Blood - Venous Blood Culture - Preliminary No growth after 48 hours. Procedures Date of Service Date of Service: 04/17/25 Assessment & Plan Assessment and plan (1) Acute kidney injury superimposed on chronic kidney disease: Status: Acute Plan KELSEY on CKD likely related to volume overload from CHF exacerbation. Renal function continues to improve gradually with diuresis. Patient's fluid status is improving. Recommend stopping lasix drip and starting lasix IVP 80mg BID given improvement in volume status. Recommend 1L fluid restriction to help maintain net negative fluid balance. replace potassium as needed- hypokalemia likely secondary to diuresis. Recommend daily electrolyte and renal function studies Recommend monitoring I&O's closely, daily weights Recommend avoiding nephrotoxins Continue supportive care Discussed with Dr Elliott. Time Spent With Patient Time: Total time managing care of this patient today ____ minutes. Progress Note: Quality Stroke Does the patient have a stroke diagnosis?: No
--- NOTE | 2025-04-17 10:46 | MHC.CM.PN ---
Per ROUNDS discussion, Patient is not yet medically cleared for dc (Lasix Drip); home is the goal and CM will continue to follow.Per Psych, Patient has capacity.
[2025-04-17 11:39] LABS: Glucose, Whole Blood 154 mg/dL (60-115)
[2025-04-17 12:00] VITALS: BP 129/56; PULSE 53; RESP 20; TEMP 37.1; O2SAT 99
[2025-04-17] MEDS: Furosemide 200 MG in 0.9 % Sodium Chloride 80 ML IVCONT (12:45)
--- NOTE | 2025-04-17 13:08 | P.PNIM_ITS ---
Subjective Subjective Date of Service: 04/17/25 Interval History: This history was taken in Croatian from the patient. Breathing and creatinine improving, wants to leave Review of Systems Review of Systems: Yes all other systems are reviewed and are negative Physical Exam 2 Vital Signs: Vital Signs: Last Vital Signs Temp 98.7 F 04/17/25 12:00 Pulse 53 04/17/25 12:00 Resp 20 04/17/25 12:00 BP 129/56 L 04/17/25 12:00 Pulse Ox 99 04/17/25 12:00 O2 Del Method Nasal Cannula 04/17/25 12:00 O2 Flow Rate 2 04/17/25 12:00 BMI result Body Mass Index 28.6 Gen: in no acute distress HEENT: sclera anicteric, moist mucus membranes Neck: supple Lungs: diminished R base Heart: regular rate and rhythm, no murmurs Abd: soft, non-tender, non-distended Ext: bilateral 1+ leg edema Skin: warm/well-perfused Neuro: alert and oriented x3, no focal findings Psych: appropriate affect Objective Data Active Medications Acetaminophen (Acetaminophen 325 Mg Tablet) 650 mg PO Q6H PRN PRN Reason: Pain, Mild 1-3,fever,headache Last Admin: 04/17/25 03:19 Dose: 650 mg Documented By: MACARIO Al Hydroxide/Mg Hydroxide (Magnesium Hydrox/Alum Hydrox 30 Ml Oral.Susp) 30 ml PO Q4H PRN PRN Reason: Heartburn Amlodipine Besylate (Amlodipine Besylate 5 Mg Tablet) 5 mg PO DAILY [facility]; Protocol Last Admin: 04/17/25 09:09 Dose: 5 mg Documented By: SHAILESH Atorvastatin Calcium (Atorvastatin Calcium 40 Mg Tablet) 40 mg PO DAILY [facility] Last Admin: 04/17/25 09:09 Dose: 40 mg Documented By: SHAILESH Calcitriol (Calcitriol 0.25 Mcg Capsule) 0.25 mcg PO Q48H SHAUNNA Last Admin: 04/17/25 09:09 Dose: 0.25 mcg Documented By: SHAILESH Calcium Carbonate (Calcium Carbonate 750 Mg Tab.Chew) 750 mg PO Q4H PRN PRN Reason: Heartburn Carvedilol (Carvedilol 6.25 Mg Tablet) 6.25 mg PO BID [facility]; Protocol Last Admin: 04/17/25 09:09 Dose: 6.25 mg Documented By: SHAILESH Ceftriaxone Sodium (Ceftriaxone Sodium 1 Gm Vial) 1 gm IVPUSH Q24H [facility] Last Admin: 04/16/25 17:36 Dose: 1 gm Documented By: ROSARIO Dextrose (Dextrose 50 % 25 Gm/50 Ml Syringe) 25 gm IVPUSH Q15M PRN; Protocol PRN Reason: per Hypoglycemia Standing Ord. Doxycycline Monohydrate (Doxycycline Monohydrate 100 Mg Capsule) 100 mg PO Q12H [facility] Last Admin: 04/17/25 09:09 Dose: 100 mg Documented By: SHAILESH Ferrous Sulfate (Ferrous Sulfate 324 Mg Tablet.Dr) 324 mg PO BID [facility] Last Admin: 04/17/25 09:08 Dose: 324 mg Documented By: SHAILESH Glucose (Glucose Gel 15 Gm Gel..Gram.) 15 gm PO Q15M PRN; Protocol PRN Reason: per Hypoglycemia Standing Ord. Furosemide 200 mg/ Sodium (Chloride) 100 mls @ 5 mls/hr IVCONT .Q20H [facility] Last Admin: 04/17/25 12:45 Dose: 10 mg/hr, 5 mls/hr Documented By: SHAILESH Insulin Human Lispro (Insulin Lispro 100 Unit/Ml 3 Ml Vial) 0 unit SUBCUT QIDACHS [facility]; Protocol Last Admin: 04/17/25 11:51 Dose: 2 unit Documented By: SHAILESH Lorazepam (Lorazepam 0.5 Mg Tablet) 0.5 mg PO BEDTIME PRN PRN Reason: Anxiety and/or insomnia Last Admin: 04/16/25 23:32 Dose: 0.5 mg Documented By: MACARIO Magnesium Hydroxide (Milk Of Magnesia 30 Ml Oral.Susp) 30 ml PO DAILY PRN PRN Reason: Constipation Melatonin (Melatonin 3 Mg Tablet) 6 mg PO BEDTIME PRN PRN Reason: Insomnia Metolazone (Metolazone 2.5 Mg Tablet) 2.5 mg PO DAILY [facility] Last Admin: 04/17/25 09:09 Dose: 2.5 mg Documented By: SHAILESH Morphine Sulfate (Morphine Sulfate 2 Mg/Ml Cartridge) 2 mg IVPUSH Q6H PRN; Protocol PRN Reason: Pain, Severe (Pain Scale 7-10) Last Admin: 04/13/25 18:14 Dose: 2 mg Documented By: HO.SZOTPAT Nystatin (Nystatin Powder 15 Gm Bottle) 1 appl TOPICAL BID [facility]; Protocol Last Admin: 04/17/25 10:13 Dose: Not Given Documented By: SHAILESH Non-Admin Reason: Patient Refused Olanzapine (Olanzapine 10 Mg Vial) 5 mg IM ONCE PRN PRN Reason: agitation Last Admin: 04/15/25 19:48 Dose: 5 mg Documented By: CHRISTOPHER Comments: Administered for agitation Omeprazole (Omeprazole 40 Mg Capsule.) 40 mg PO BID@0630,1630 [facility] Last Admin: 04/17/25 06:27 Dose: 40 mg Documented By: SHILPIRISVasu Ondansetron HCl (Ondansetron Hcl 4 Mg/2 Ml Vial) 4 mg IVPUSH Q8H PRN PRN Reason: Nausea and Vomiting Polyethylene Glycol (Polyethylene Glycol 3350 17 Gm Powd.Pack) 17 gm PO DAILY PRN PRN Reason: Constipation Potassium Chloride (Potassium Chloride Er 20 Meq Tab.Er.Prt) 40 meq PO BID [facility] Stop: 04/17/25 21:01 Last Admin: 04/17/25 09:09 Dose: 40 meq Documented By: SHAILESH Sodium Chloride (0.9 % Sodium Chloride Flush 3 Ml Syringe) 3 ml IVFLUSH QSHIFT [facility] Last Admin: 04/17/25 09:19 Dose: Not Given Documented By: SHAILESH Non-Admin Reason: IV Running Tramadol HCl (Tramadol Hcl 50 Mg Tablet) 50 mg PO Q6H PRN PRN Reason: Breakthrough Pain Last Admin: 04/17/25 09:38 Dose: 50 mg Documented By: SHAILESH Labs 04/15/25 07:42 04/17/25 06:24 Labs: Laboratory Results - last 24 hr 04/16/25 04/16/25 04/16/25 12:43 16:27 19:35 Anion Gap Estim Creat Clear Calc Estimated GFR POC Glucose 122 H 127 H Random Glucose Calcium B-Natriuretic Peptide Nasal Screen MRSA (PCR) NEGATIVE Nasal S. aureus Screen NEGATIVE Nasal MRSA/S.aureus Interp SEE NOTE 04/17/25 04/17/25 04/17/25 06:24 07:41 11:14 Anion Gap 16 Estim Creat Clear Calc 27.1 Estimated GFR 23 POC Glucose 86 154 H Random Glucose 92 Calcium 8.5 B-Natriuretic Peptide 1713 H Nasal Screen MRSA (PCR) Nasal S. aureus Screen Nasal MRSA/S.aureus Interp Assessment and Plan (1) Acute exacerbation of CHF (congestive heart failure): Status: Acute Plan d6, 74yo M with HFpEF, AF on apixaban, DM2, HTN, HLD, CAD, hyperPTH presenting with scrotal swelling, found to be hypoxic due to CHF + pneumonia/parapneumonic effusion 5 prior AMAs in last month AHRF due to acute-chronic HFpEF with KELSEY/CKD3 due to cardiorenal syndrome - TTE 12/05/24 LVEF 52% - transition IV furosemide drip to PO furosemide, continue PO metolazone, negative 8.7L cumulatively this admission thus far, Cardiology + Nephrology following - continue to monitor lytes, I/O, weights, BNP 1 more day RLL PNA with parapneumonic effusion - held off on thoracentesis pending further diuresis - ceftriaxone + doxycycline 04/12-, BCx negative, MRSA negative, urinary antigens for Legionella and pneumococcus pending, PCT low HTN - amlodipine, carvedilol; lisinopril held due to KELSEY hypoK - replete repeated AMAs - per Psychiatry, has competency DM2 - A1c only 5.5 persistent AF - carvedilol; apixaban held for possible throracentesis HLD - atorvastatin PATRICE - PO Fe chronic venous stasis - Wound Care: Bilateral legs: cleanse with saline, apply durafiber ag, cover with ABD pads, hold in place with rolled gauze or stretch netting, change every other day and PRN GERD - PPI VTE ppx - SCDs dispo - TBD; PT eval In my clinical judgment, the patient requires continued inpatient hospitalization for the following reasons: IV diuresis, possible pleural effusion drainage Total time managing care of this patient today: 35 minutes. Quality Stroke Does the patient have a stroke diagnosis?: No VTE Prior VTE?: No VTE Risk Level:: Medical - moderate - high VTE Device Contraindication: Treatment Not Tolerated VTE Drug Contraindication: N/A - Med Ordered
[2025-04-17 16:00] VITALS: BP 103/62; PULSE 90; RESP 20; TEMP 36.8; O2SAT 92
[2025-04-17 16:02] LABS: Glucose, Whole Blood 122 mg/dL (60-115)
[2025-04-17] MEDS: 0.9 % Sodium Chloride Flush 3 ML SYRINGE IVFLUSH ×2 (17:25→21:50)
[2025-04-17 19:44] VITALS: BP 125/59; PULSE 59; RESP 18; TEMP 36.3; O2SAT 96
[2025-04-17 20:41] LABS: Glucose, Whole Blood 122 mg/dL (60-115)
[2025-04-17 22:06] VITALS: PULSE 58
[2025-04-18] VITALS: BP 144/63; PULSE 67; RESP 16; TEMP 36.3; O2SAT 95
[2025-04-18 03:43] VITALS: BP 144/66; PULSE 68; RESP 18; TEMP 36.3; O2SAT 94
[2025-04-18 07:26] VITALS: BP 138/74; PULSE 60; RESP 19; TEMP 36.6; O2SAT 98
[2025-04-18 07:29] LABS: Hematocrit 28.6 % (42.0-52.0); Hemoglobin 8.9 g/dl (14.0-18.0); Mean Corpuscular HGB Conc 31.1 g/dl (31.0-36.0); Mean Corpuscular Hemoglobin 25.7 pg (27.0-33.0); Mean Corpuscular Volume 82.7 fL (80.0-98.0); NRBC Abs Auto 0.020 X10*3/uL (0.0-0.012); NRBC Pct Auto 0.5 /100WBC (0.0-0.2); Platelet Count 174 X10*3/uL (160-400); Red Blood Count 3.46 X10*6/uL (4.60-5.80); White Blood Count 4.3 X10*3/uL (4.8-10.8)
[2025-04-18 07:37] LABS: B Type Natriuretic Peptide 1268 pg/mL (<100)
[2025-04-18 07:37] LABS: Glucose, Whole Blood 82 mg/dL (60-115)
[2025-04-18 07:43] LABS: Anion Gap 17 (12-20); Blood Urea Nitrogen 104 mg/dL (9-16); Calcium 8.9 mg/dL (8.4-10.2); Carbon Dioxide 30 mmol/L (22-29); Chloride 94 mmol/L (96-108); Creatinine Clr Calc Pharmacy 27.3; Estimated Glomerular Filt Rate 23; Magnesium 1.8 mg/dL (1.6-2.6); Potassium 3.8 mmol/L (3.3-5.1); Sodium 137 mmol/L (135-145)
[2025-04-18 08:00] LABS: Procalcitonin 0.12 ng/mL
[2025-04-18] MEDS: Ferrous Sulfate 324 MG TABLET.DR PO (09:10)
[2025-04-18] MEDS: 0.9 % Sodium Chloride Flush 3 ML SYRINGE IVFLUSH (09:11)
[2025-04-18 11:34] VITALS: O2SAT 92
[2025-04-18 11:45] VITALS: BP 122/55; PULSE 54; RESP 20; TEMP 36.3; O2SAT 94
[2025-04-18 11:58] LABS: Glucose, Whole Blood 168 mg/dL (60-115)
[2025-04-18 12:41] VITALS: PULSE 63; PULSE 74; PULSE 79; PULSE 84; O2SAT 81; O2SAT 85; O2SAT 88; O2SAT 90
--- NOTE | 2025-04-18 13:25 | W.MHC.F2F ---
Service Date Service Date: 04/18/25 Encounter Date of encounter: 04/18/25 Reasons for Services Signs and symptoms assessed: attach PT evaluation 04/18/25 Reason for detention: medication management, medication treatment and teach disease management Reason for physical therapy: home safety and mobility, therapeutic exercises, gait/transfer training, assess need for DME, ADL training and energy conservation MD Overseeing Care: Blanca Anderson Homebound: Leaving the home is medically contraindicated at this time without the asist of a device and/or another person due th the listed conditions above and below. Reason homebound: unsteady gait / fall risk, shortness of breath with minimal effort and weakness related to hospital stay Certification: Based on the above findings, I certify that this patient is confined to the home and needs intermittent detention care, physical therapy and/or speech therapy, or continues to need occupational therapy. The patient is under my care, and I have initiated the establishment of the plan of care. The patient will be followed by a physician who will periodically review the plan of care. Time Spent With Patient Time: Total time managing care of this patient today ____ minutes.
--- NOTE | 2025-04-18 13:32 | P.DS_ITS ---
DS: Providers Provider Date of Service: 04/18/25 Date of admission: 04/12/25 17:38 Date of discharge: 04/18/25 Primary care physician: Blanca Anderson MD Consults: 04/13/25 05:14 Consult to Wound Care Routine Reason for consultation: venous stasis ulcers bilateral lower extremities Has provider been notified: Yes 04/13/25 06:57 Consult to Cardiology Routine Consulting Provider: [facility] Reason for consultation: acute on chronic heartfailure, anasarca 04/13/25 07:29 Consult to Cardiology Routine Consulting Provider: [facility] Reason for consultation: cardio renal syndrome Has provider been notified: No Consult to Wound Care Routine Reason for consultation: chronic wounds on legs 04/14/25 08:51 Consult to Nephrology Routine Consulting Provider: [facility] Reason for consultation: Kelsey on ckd Has provider been notified: No 04/15/25 18:29 Consult to Psychiatry Routine Consulting Provider: [facility] Reason for consultation: Evaluation for capacity. Has left AMA 6 times in 04/15/25 18:39 Inpt CARE Team Crisis Consult Stat Comment: Reason for consultation: Pt wanting to leave ama, agitated, ?competwncy 04/15/25 19:24 Consult to Psychiatry Stat Consulting Provider: [facility] Reason for consultation: Pt agitated, wants to leave AMA, ?capacity; has left AMA 6x this month DS: Diagnosis Discharge Diagnosis (1) Acute exacerbation of CHF (congestive heart failure): Status: Acute (2) Acute on chronic heart failure with preserved ejection fraction (HFpEF): Status: Acute (3) Pneumonia: Status: Acute (4) Pleural effusion: Status: Acute (5) Acute on chronic kidney failure: Status: Acute (6) CKD stage 3b, GFR 30-44 ml/min: Status: Acute (7) Cardiorenal syndrome: Status: Acute (8) Acute respiratory failure with hypoxia: Status: Acute DS: Summary Hospital Course Hospital Course: From the history and physical by the admitting hospitalist, Vivek Jaramillo MD, 04/12/25: Pt is a 74-year-old male with a PMH significant for?HFpEF (LVEF 52%), AFib on Eliquis, [id number] type 2 diabetes, HTN, HLD, CAD, hyperparathyroidism, CKD 3, and cognitive impairment who presented to emergency room with shortness of breath and swelling in her legs. Patient has been admitted 5 times from Mar 23 to and each time has left AMA. He presents back today with complaint of chest pain shortness for breath, worse with exertion and marked swelling in both legs with weeping. Creatinine is worse than baseline.. BNP level is [address] above his baseline. Chest x-ray is reported as having a right lower lobe pneumonia with parapneumonic effusion, he has no cough, no increase in WBC, and no fever 74yo M with HFpEF, AF on apixaban, DM2, HTN, HLD, CAD, hyperPTH presenting with scrotal swelling, found to be hypoxic due to CHF + pneumonia with possible parapneumonic effusion. He has had 5 prior AMAs in last month. He was admitted to the telemetry unit and despite repeated threats to leave AMA, he stayed in the hospital for the entire course. He was treated with IV furosemide drip and transitioned to higher dose of PO furosemide 80 mg bid along with metolazone; overall, net negative 8.8L during the course of the hospitalization. Creatinine improved with diuresis suggesting the cardiorenal syndrome. He was discharged on 80 mg furosemide bid plus 2.5 mg metolazone MW. For the pneumonia, he was treated with ceftriaxone and doxycycline. Blood cultures negative and not septic with no leukocytosis. Thoracentesis was offered but he declined. He was discharged on cefdinir and doxycycline and should repeat CXR in 1-2 weeks. Lisinopril held due to KELSEY and should continue to be held. Repeat BMP in 1 week ordered. Counseled to follow up with [facility] Cardiology in 1 weeks and [facility] Nephrology in 2 weeks, along with Primary Care in 1 week. VNA services for CHF monitoring arranged. Time Attestation Discharge Coordination Time (in mins): 45 Quality: Safe Use of Opioids Does Pt have an Active Cancer Diagnosis on the Problem List?: No Quality: Stroke Does the patient have a stroke diagnosis?: No Physical Exam Vital Signs: Vital Signs: Last Vital Signs Temp 97.3 F 04/18/25 11:45 Pulse 54 04/18/25 11:45 Resp 20 04/18/25 11:45 BP 122/55 L 04/18/25 11:45 Pulse Ox 94 04/18/25 11:45 O2 Del Method Room Air 04/18/25 11:45 O2 Flow Rate 2 04/18/25 07:26 BMI result Body Mass Index 28.6 Gen: in no acute distress HEENT: sclera anicteric, moist mucus membranes Neck: supple Lungs: diminished R base Heart: regular rate and rhythm, no murmurs Abd: soft, non-tender, non-distended Ext: bilateral 1+ leg edema Skin: warm/well-perfused Neuro: alert and oriented x3, no focal findings Psych: appropriate affect DS: Data Data Completed and Pending Completed studies during hospitalization [Text1]: Laboratory Results WBC 4.3 X10*3/uL (4.8-10.8) L 04/18/25 07:01 RBC 3.46 X10*6/uL (4.60-5.80) L 04/18/25 07:01 Hgb 8.9 g/dl (14.0-18.0) L 04/18/25 07:01 Hct 28.6 % (42.0-52.0) L 04/18/25 07:01 MCV 82.7 fL (80.0-98.0) 04/18/25 07:01 MCH 25.7 pg (27.0-33.0) L 04/18/25 07:01 MCHC 31.1 g/dl (31.0-36.0) 04/18/25 07:01 RDW 17.4 % (11.0-16.0) H 04/18/25 07:01 Plt Count 174 X10*3/uL (160-400) 04/18/25 07:01 MPV 9.7 fL (9.4-12.4) 04/18/25 07:01 Immature Gran % (Auto) 0.4 % (0.0-0.4) 04/12/25 16:19 Neut % (Auto) 79.1 % (45-73) H 04/12/25 16:19 Lymph % (Auto) 12.2 % (20-40) L 04/12/25 16:19 [place] % (Auto) 7.9 % (2-11) 04/12/25 16:19 Eos % (Auto) 0.4 % (0-4) 04/12/25 16:19 Baso % (Auto) 0.0 % (0-2) 04/12/25 16:19 Lymph # (Auto) 0.6 X10*3/uL (1.2-4.9) L 04/12/25 16:19 [place] # (Auto) 0.4 X10*3/uL (0.1-1.2) 04/12/25 16:19 Eos # (Auto) 0.0 X10*3/uL (0.0-0.4) 04/12/25 16:19 Baso # (Auto) 0.0 X10*3/uL (0.0-0.2) 04/12/25 16:19 Abs Immat Gran (auto) 0.02 X10*3/uL (0.00-0.03) 04/12/25 16:19 Absolute Neuts (auto) 4.0 x10*3/uL (2.0-8.3) 04/12/25 16:19 Absolute Nucleated RBC 0.020 X10*3/uL (0.0-0.012) H 04/18/25 07:01 Nucleated RBC % (auto) 0.5 /100WBC (0.0-0.2) H 04/18/25 07:01 Hold Purple Top SEE NOTE 04/16/25 06:33 PT 15.6 SEC (10.9-12.4) H 04/12/25 17:25 INR 1.4 (0.9-1.1) H 04/12/25 17:25 VBG pH 7.44 (7.32-7.43) H 04/12/25 16:32 VBG pCO2 32 mmHg 04/12/25 16:32 VBG pO2 53 mmHg 04/12/25 16:32 VBG HCO3 22 mmol/L (22-26) 04/12/25 16:32 VBG O2 Saturation 75.0 % 04/12/25 16:32 VBG Base Excess -0.5 mmol/L 04/12/25 16:32 Sodium 137 mmol/L (135-145) 04/18/25 07:01 Potassium 3.8 mmol/L (3.3-5.1) D 04/18/25 07:01 Chloride 94 mmol/L (96-108) L 04/18/25 07:01 Carbon Dioxide 30 mmol/L (22-29) H 04/18/25 07:01 Anion Gap 17 (12-20) 04/18/25 07:01 BUN 104 mg/dL (9-16) H 04/18/25 07:01 Creatinine 2.76 mg/dL (0.5-1.4) H 04/18/25 07:01 Estim Creat Clear Calc 27.3 04/18/25 07:01 Estimated GFR 23 04/18/25 07:01 POC Glucose 168 mg/dL (60-115) H 04/18/25 11:43 Random Glucose 94 mg/dL (60-115) 04/18/25 07:01 Calcium 8.9 mg/dL (8.4-10.2) 04/18/25 07:01 Magnesium 1.8 mg/dL (1.6-2.6) 04/18/25 07:01 Total Bilirubin 0.8 mg/dL (0.0-1.0) 04/15/25 07:42 AST 23 U/L (5-37) 04/15/25 07:42 ALT 12 U/L (0-40) 04/15/25 07:42 Alkaline Phosphatase 147 U/L (39-117) H 04/15/25 07:42 Lactate Dehydrogenase 192 U/L (118-273) 04/14/25 13:47 Troponin I High Sens 27.7 ng/L (<3.5-35.0) 04/12/25 16:19 B-Natriuretic Peptide 1268 pg/mL (<100) H 04/18/25 07:01 Total Protein 6.8 g/dL (6.5-8.0) 04/15/25 07:42 Albumin 3.1 g/dL (3.5-5.0) L 04/15/25 07:42 Procalcitonin 0.12 ng/mL 04/18/25 07:01 Nasal Screen MRSA (PCR) NEGATIVE (Negative) 04/16/25 12:43 Nasal S. aureus Screen NEGATIVE (Negative) 04/16/25 12:43 Nasal MRSA/S.aureus Interp SEE NOTE 04/16/25 12:43 COVID-19 (CARLOS MANUEL) Negative (Negative) 04/12/25 16:19 COVID-19 Clin Com See Note 04/12/25 16:19 Influenza Type A (MARLENA) Negative (Negative) 04/12/25 16:19 Influenza Type B (MARLENA) Negative (Negative) 04/12/25 16:19 Influenza A & B Note See Note 04/12/25 16:19 Impressions Chest X-Ray 04/17/25 08:33 IMPRESSION: 1. Cardiomegaly. 2. Slightly larger small to moderate-sized right pleural effusion. Underlying right basilar parenchymal opacity, likely compressive atelectasis. Pneumonia cannot be excluded given the appearance. Electronically signed by: Jack Shah MD 04/17/2025 08:51 AM EDT Discharge Plan Discharge Anticipated Discharge Date/Time: 04/18/25 13:26 Patient Disposition: Home Health Service Discharge Diagnosis: CHF exacerbation kidney failure pneumonia/effusion Referrals: [facility] [Other] - 1 Week Referral Note: Continue weekly visits with nursing provided by your insurance company Blanca Crowley MD [Primary Care Provider, Internal Medicine] - 1 Week Discharge Medications: New doxycycline monohydrate 100 mg Capsule 100 mg PO Q12H Qty: 6 0RF metolazone 2.5 mg tablet 2.5 mg PO .MWF Qty: 12 0RF furosemide 80 mg tablet 80 mg PO BID Qty: 60 0RF cefdinir 300 mg capsule 300 mg PO BID Qty: 6 0RF Continued (DME) blood sugar diagnostic Strip See Rx Instructions .ROUTE BID Qty: 50 11RF Rx Instructions: Use 1 test strip once a day atorvastatin 40 mg tablet 40 mg PO DAILY Eliquis 2.5 mg tablet 2.5 mg PO BID omeprazole 40 mg Capsule,Delayed Release(Dr/Ec) 40 mg PO BID@0630,1630 Qty: 60 0RF ferrous sulfate 325 mg (65 mg iron) tablet 325 mg PO BID calcitriol 0.25 mcg capsule 0.25 mcg PO Q48H amlodipine 5 mg Tablet 5 mg PO DAILY Qty: 60 0RF Protocol: Hold for SBP< HOLD for SBP < : 90 carvedilol 6.25 mg Tablet 6.25 mg PO BID Qty: 60 0RF Protocol: Hold for SBP/HR < HOLD for SBP < : 90 HOLD for HR < : 60 (DME) blood-glucose meter Misc See Rx Instructions PO BID Qty: 1 Rx Instructions: As directed (DME) lancets Misc See Rx Instructions .ROUTE BID Qty: 100 Rx Instructions: As directed Discontinued furosemide 40 mg tablet 40 mg PO BID lisinopril 40 mg tablet 40 mg PO DAILY Discharge Orders: Discharge Order (Routine); Ordered 04/18/25 Ordered By: Austyn Wilson Diet: Low salt diet Activity on Discharge: As tolerated Stand Alone Forms: Patient Portal Discharge page Print Language: Mexican Other Ambulatory Orders: Basic Metabolic Panel (Routine) Timeframe: 1 Week Facility: [facility] - Location: Laboratory Ordered By: Austyn Wilson Care Plan Goals: cardiac and renal health Health Concerns: CHF exacerbation kidney failure pneumonia/effusion Plan of Treatment: home with VNA services home oxygen 2 liters with ambulation Low-sodium diet: less than 2000 mg of sodium daily. Weigh yourself daily and call your doctor if your weight goes up by more than 3 lb/day or 5 lb/week. increase furosemide from 40 to 80 mg twice daily take metolazone 2.5 mg on Mondays, Wednesdays, and Fridays STOP lisinopril follow up with [facility] Cardiology in 1 week, [facility] Nephrology in 2 weeks repeat BMP in 1 week take antibiotics for 3 days: cefdinir 300 mg twice daily, doxycycline 100 mg twice daily repeat chest X-ray in 2 weeks Please follow up with your primary care doctor within 1 week. Return to the hospital if you experience recurrent or worsening symptoms. Assessment: See Discharge Summary.
[2025-04-18 16:10] LABS: Glucose, Whole Blood 88 mg/dL (60-115)
[2025-04-19 19:54] LABS: Strep Pneumo Ag urine Not Detected (Not Detected)
== END 2025-04-18 16:50 | disposition home health service (06) | DRG 291 ==
LOC: HO.ED 17:19 → HO.EDOVER 17:52 → HO.IMC 19:38
PROVIDERS: Hospitalist; Nurse Practitioner Acute Care; Physician Assistant Medical; Admitting Provider Internal Medicine; Emergency Provider Emergency Medicine; PCP Student in an Organized Health Care Education/Training Program; Visit Provider Family Medicine
DX: I13.0 Hypertensive heart and chronic kidney disease with heart failure and stage 1 through stage 4 chronic kidney disease, or unspecified chronic kidney disease (principal); I50.33 Acute on chronic diastolic (congestive) heart failure; J96.01 Acute respiratory failure with hypoxia; J18.9 Pneumonia, unspecified organism; I48.19 Other persistent atrial fibrillation; J91.8 Pleural effusion in other conditions classified elsewhere; N17.9 Acute kidney failure, unspecified; N18.30 Chronic kidney disease, stage 3 unspecified; I25.10 Atherosclerotic heart disease of native coronary artery without angina pectoris; E87.6 Hypokalemia; D50.9 Iron deficiency anemia, unspecified; K21.9 Gastro-esophageal reflux disease without esophagitis; E78.5 Hyperlipidemia, unspecified; E11.22 Type 2 diabetes mellitus with diabetic chronic kidney disease; E21.3 Hyperparathyroidism, unspecified; I87.8 Other specified disorders of veins; Z91.148 Patient's other noncompliance with medication regimen for other reason; Z20.822 Contact with and (suspected) exposure to COVID-19; Z87.891 Personal history of nicotine dependence; Z79.01 Long term (current) use of anticoagulants; Z79.899 Other long term (current) drug therapy
CPT/HCPCS: 36415; 71045; 71250; 80048; 80053; 82803; 82947; 83615; 83735; 83880; 84145; 84155; 84484; 85014; 85018; 85025; 85027; 85610; 87040; 87449; 87502; 87635; 87640; 87641; 87899; 93005; 97162; 99285; J0696; J1271; J1938; J2270; J2359

== ENCOUNTER → 2025-04-12 15:33 | Outpatient (BNV) | payer OTHER, SELFPAY | PROVIDERS: Emergency Provider Emergency Medicine; PCP Student in an Organized Health Care Education/Training Program; Visit Provider Radiology Diagnostic Radiology | DX: J18.9 Pneumonia, unspecified organism (principal); R06.02 Shortness of breath | CPT/HCPCS: 71045; 71250 ==

== ENCOUNTER 2025-04-12 17:38 | Outpatient (BNV) | payer OTHER, SELFPAY | END 2025-04-17 08:33 | PROVIDERS: Admitting Provider Internal Medicine; Emergency Provider Emergency Medicine; PCP Student in an Organized Health Care Education/Training Program; Visit Provider Radiology Diagnostic Radiology | DX: I51.7 Cardiomegaly (principal); J90 Pleural effusion, not elsewhere classified | CPT/HCPCS: 71045 ==

== ENCOUNTER 2025-04-12 17:38 | Outpatient (BNV) | payer OTHER, SELFPAY | END 2025-04-14 08:41 | PROVIDERS: Admitting Provider Internal Medicine; Emergency Provider Emergency Medicine; PCP Student in an Organized Health Care Education/Training Program; Visit Provider Internal Medicine Cardiovascular Disease | DX: I48.91 Unspecified atrial fibrillation (principal) | CPT/HCPCS: 93010 ==

== ENCOUNTER → 2025-04-12 17:38 | Outpatient (BNV) | payer OTHER, SELFPAY | PROVIDERS: Admitting Provider Internal Medicine; Emergency Provider Emergency Medicine; PCP Student in an Organized Health Care Education/Training Program; Visit Provider Internal Medicine Cardiovascular Disease | DX: I50.9 Heart failure, unspecified (principal) | CPT/HCPCS: 93010; 99222 ==

== ENCOUNTER → 2025-04-12 17:38 | Outpatient (BNV) | payer OTHER, SELFPAY | PROVIDERS: Admitting Provider Internal Medicine; Emergency Provider Emergency Medicine; PCP Student in an Organized Health Care Education/Training Program; Visit Provider Nurse Practitioner Family | DX: I10 Essential (primary) hypertension (principal) | CPT/HCPCS: 99222; 99232 ==

== ENCOUNTER → 2025-04-12 17:38 | Outpatient (BNV) | payer OTHER, SELFPAY | PROVIDERS: Admitting Provider Internal Medicine; Emergency Provider Emergency Medicine; PCP Student in an Organized Health Care Education/Training Program; Visit Provider Internal Medicine | DX: I50.9 Heart failure, unspecified (principal); I50.33 Acute on chronic diastolic (congestive) heart failure; J18.9 Pneumonia, unspecified organism; J90 Pleural effusion, not elsewhere classified; N17.9 Acute kidney failure, unspecified; N18.9 Chronic kidney disease, unspecified; N18.32 Chronic kidney disease, stage 3b; I13.10 Hypertensive heart and chronic kidney disease without heart failure, with stage 1 through stage 4 chronic kidney disease, or unspecified chronic kidney disease; J96.01 Acute respiratory failure with hypoxia | CPT/HCPCS: 99223; 99232; 99239; 99499; G0180 ==

== ENCOUNTER → 2025-04-12 17:38 | Outpatient (BNV) | payer OTHER, SELFPAY | PROVIDERS: Admitting Provider Internal Medicine; Emergency Provider Emergency Medicine; PCP Student in an Organized Health Care Education/Training Program; Visit Provider Nurse Practitioner Psychiatric/Mental Health | DX: Z13.30 Encounter for screening examination for mental health and behavioral disorders, unspecified (principal) | CPT/HCPCS: 99222 ==

== ENCOUNTER 2025-04-27 12:46 | Outpatient (REF) | payer OTHER, SELFPAY ==
[2025-04-27 14:07] LABS: Anion Gap 14 (12-20); Blood Urea Nitrogen 80 mg/dL (9-16); Calcium 9.2 mg/dL (8.4-10.2); Carbon Dioxide 24 mmol/L (22-29); Chloride 104 mmol/L (96-108); Estimated Glomerular Filt Rate 23; Potassium 3.4 mmol/L (3.3-5.1); Sodium 139 mmol/L (135-145)
--- OUTSIDE RECORDS SUMMARY | 2025-04-27 17:32 | XMS_ITS | Encounter Summary ---
Author Organization [employer] Address [address] [place] [address] Care Team Providers Care Busser Name Role Phone Cynthia Marshall NP Primary Care Provider [phone] Encounter Details Date Type Department Care Team (Late st Contact Info) Description 02/02/2025 Orders Only [facility] MEDICINE [address] [place] [address] Severino Santoro, PharmD [address] [place] [address] Social History Tobacco Use Types Packs/Day Years [...] Care Team (Late st Contact Info) Description 05/06/2025 9:45 AM EDT Office Visit [facility] MEDICINE [address] [place] [address] Cynthia Marshall NP [address] [place] [address] documented as of this encounter Visit Diagnoses Not on filedocumented in this encounter Additional Health Concerns Assessment Noted Time PHQ-9 Depression Total Score: 3 01/22/20 25 10:47 AM EDT documented as of this encounter Care Teams Busser Relationship Specialty Start Date End Date Cynthia Marshall NP [address] [place] [address] PCP - General Family Medicine 09/10/23 [facility] 01/01/25 documented as of this encounter
--- OUTSIDE RECORDS SUMMARY | 2025-04-27 17:32 | XMS_ITS | Encounter Summary ---
Author Organization [employer] Address [address] [place] [address] Care Team Providers Care Commercial Technician Name Role Phone Jarad Lundy MD Primary Care Provider [phone] Encounter Details Date Type Department Care Team (Late st Contact Info) Description 12/17/2024 Lab Requisition [facility] - Main Lab [address] [facility] [place] [address] Jarad Lundy MD [address] [place] [id number] Anemia, unspecified; Chronic kidney disease, stage 3a [...] K/mcL LAB HEMETOLOGY METHOD 12/17/2024 9:04 AM [facility] RBC 3.60(L) 4.50 - 5.50 M/mcL LAB HEMETOLOGY METHOD 12/17/2024 9:04 AM [facility] Hemoglobin 10.7(L) 13.5 - 17.5 g/dL LAB HEMETOLOGY METHOD 12/17/2024 9:04 AM [facility] Hematocrit 32.4(L) 42.0 - 54.0 % LAB HEMETOLOGY METHOD 12/17/2024 9:04 AM [facility] MCV 90.0 79.0 - 98.0 FL LAB HEMETOLOGY METHOD 12/17/2024 9:04 AM [facility] MCH 29.7 27.0 - 32.0 pcg LAB HEMETOLOGY METHOD 12/17/2024 9:04 AM [facility] MCHC 33.0 32.0 - 37.0 g/dL LAB HEMETOLOGY METHOD 12/17/2024 9:04 AM [facility] RDW 16.6(H) 11.0 - 15.0 % LAB HEMETOLOGY METHOD 12/17/2024 9:04 AM [facility] Platelets 335 130 - 400 K/mcL LAB HEMETOLOGY METHOD 12/17/2024 9:04 AM [facility] MPV 9.1 7.0 - 11.0 FL LAB HEMETOLOGY METHOD 12/17/2024 9:04 AM [facility] NRBC 0.0 <1.0 % LAB HEMETOLOGY METHOD 12/17/2024 9:04 AM [facility] NRBC Absolute 0.00 <0.10 K/mcL LAB HEMETOLOGY METHOD 12/17/2024 9:04 AM [facility] Neutrophils Relative 76.7 % LAB HEMETOLOGY METHOD 12/17/2024 9:04 AM [facility] Lymphocytes Relative 16.2 % LAB HEMETOLOGY METHOD 12/17/2024 9:04 AM [facility] Monocytes Relative 5.4 % LAB HEMETOLOGY METHOD 12/17/2024 9:04 AM [facility] Eosinophils Relative 0.8 % LAB HEMETOLOGY METHOD 12/17/2024 9:04 AM [facility] Basophils Relative 0.2 % LAB HEMETOLOGY METHOD 12/17/2024 9:04 AM [facility] Immature Granulocytes Relative 0.7 % LAB HEMETOLOGY METHOD 12/17/2024 9:04 AM [facility] Neutrophils Absolute 8.40(H) 1.50 - 7.00 K/mcL LAB HEMETOLOGY METHOD 12/17/2024 9:04 AM [facility] Lymphocytes Absolute 1.78 1.00 - 5.00 K/mcL LAB HEMETOLOGY METHOD 12/17/2024 9:04 AM [facility] Monocytes Absolute 0.59 0.20 - 1.00 K/mcL LAB HEMETOLOGY METHOD 12/17/2024 9:04 AM [facility] Eosinophils Absolute 0.09 0.00 - 0.50 K/mcL LAB HEMETOLOGY METHOD 12/17/2024 9:04 AM [facility] Basophils Absolute 0.02 0.00 - 0.20 K/mcL LAB HEMETOLOGY METHOD 12/17/2024 9:04 AM [facility] Immature Granulocytes Absolute 0.08(H) 0.00 - 0.03 K/mcL LAB HEMETOLOGY METHOD 12/17/2024 9:04 AM [facility] Blood Venous blood specimen / Unknown Venipuncture / Unknown 12/17/2024 4:55 AM EDT 12/17/2024 8:39 AM EDT us Jarad Lundy MD LAB BLOOD ORDERABLES Final Resu lt [facility] [address] [place] [address], [place] [phone] * (ABNORMAL) Basic metabolic panel (12/17/2024 4:55 AM EDT) Sodium 141 133 - 145 mmol/L LAB CHEMISTRY METHOD 12/17/2024 9:22 AM [facility] Potassium 3.5 3.5 - 5.5 mmol/L LAB CHEMISTRY METHOD 12/17/2024 9:22 AM [facility] Chloride 107 96 - 110 mmol/L LAB CHEMISTRY METHOD 12/17/2024 9:22 AM [facility] CO2 27 21 - 32 mmol/L LAB CHEMISTRY METHOD 12/17/2024 9:22 AM [facility] Anion Gap 7 3 - 11 LAB CHEMISTRY METHOD 12/17/2024 9:22 AM [facility] Glucose 61(L) 70 - 100 mg/dL LAB CHEMISTRY METHOD 12/17/2024 9:22 AM [facility] BUN 26(H) 5 - 25 mg/dL LAB CHEMISTRY METHOD 12/17/2024 9:22 AM [facility] Creatinine 1.61(H) 0.70 - 1.30 mg/dL LAB CHEMISTRY METHOD 12/17/2024 9:22 AM [facility] eGFR 45(L) >=60 mL/min/1. 73m2 [...] Resu lt [facility] [address] [place] [address], documented in this encounter Visit Diagnoses Diagnosis Anemia, unspecified Chronic kidney disease, stage 3a (CMS/HCC V24, CMS/HCC V28) documented in this encounter Care Teams Commercial Technician Relationship Specialty Start Date End Date Jarad Lundy MD [address] [place] [address] PCP - General Hospitalist Medicine 12/17/24 documented as of this encounter
--- OUTSIDE RECORDS SUMMARY | 2025-04-27 17:32 | XMS_ITS | Encounter Summary ---
Author Organization [employer] [facility] Address [address] [facility] 7t [place] [address] Care Team Providers Care Brick Unloader Tender Name Role Phone Virginia Perez Primary Care Provider Blanca Ring MD Primary Care Pro vider Cynthia Marshall NP Primary Care Provider [phone] Encounter Details Date Type Department Care Team (Late st Contact Info) Description 01/01/2023 Abstract [facility] MEDICINE [address] [place] [address] Virginia Perez FNP Social History Tobacco Use [...] Description 05/06/2025 9:45 AM EDT Office Visit [facility] [address] [place] [address] Cynthia Marshall NP [address] [place], [place] [phone] documented as of this encounter Visit Diagnoses Not on filedocumented in this encounter Care Teams Brick Unloader Tender Relationship Specialty Start Date End Date Virginia Perez FNP PCP - General Family Medicine 04/28/22 03/28/23 Blanca Crowley MD [address] [place] [address] PCP - General Internal Medicine 03/29/23 09/09/23 Cynthia Marshall NP [address] [place] [address] PCP - General Family Medicine 09/10/23 [facility] 01/01/25 documented as of this encounter
--- OUTSIDE RECORDS SUMMARY | 2025-04-27 17:32 | XMS_ITS | Encounter Summary ---
Author Organization [employer] Address [address] [facility] 7t [place] [address] Care Team Providers Care Hot Mill Tin Roller Name Role Phone Cynthia Marshall NP Primary Care Provider [phone] Reason for Visit * Reason Onset Date Comments FYI 02/06/2025 Encounter Details Date Type Department Care Team ([facility] st Contact Info) Description 02/06/2025 Telephone [facility] MEDICINE [address] [place], [place] [phone] Cynthia Marshall NP [address] [place], [place] [phone] FYI Social History Tobacco Use Types Packs/Day [...] - 02/06/2025 1:16 PM EDT Tc from [place] with [facility] calling to report heart rate of 54, not symptomatic. documented in this encounter Plan of Treatment Upcoming Encounters Date Type Department Care Team (Late st Contact Info) Description 05/06/2025 9:45 AM EDT Office Visit [facility] MED[facility] [address] [place] [address] Cynthia Marshall NP [address] [place] [address] documented as of this encounter Visit Diagnoses Not on filedocumented in this encounter Additional Health Concerns Assessment Noted Time PHQ-9 Depression Total Score: 3 01/22/20 25 10:47 AM EDT documented as of this encounter Care Teams Hot Mill Tin Roller Relationship Specialty Start Date End Date Cynthia Marshall NP [address] [place] [address] PCP - General Family Medicine 09/10/23 [facility] 01/01/25 documented as of this encounter
--- OUTSIDE RECORDS SUMMARY | 2025-04-27 17:32 | XMS_ITS | Encounter Summary ---
Author Organization [employer] Address [address] [facility] 7t [place] [address] Care Team Providers Care Weatherization Coordinator Name Role Phone Cynthia Marshall NP Primary Care Provider [phone] Encounter Details Date Type Department Care Team ([facility] st Contact Info) Description 04/27/2025 Orders Only [facility] MED[facility]INE [address] [place] [address] Blanca Crowley MD [address] [place] [address] Social History Tobacco Use Types Packs/Day Years [...] Description 05/06/2025 9:45 AM EDT Office Visit [facility] [address] [place] [address] Cynthia Marshall NP [address] [place] [address] documented as of this encounter Procedures Procedure Name Priority Date/Time Associated Diagnosis Comments BASIC METABOLIC PANEL Routine 04/27/2025 12:05 PM EDT documented in this encounter Results * (ABNORMAL) Basic Metabolic Panel (04/27/2025 12:05 PM EDT) Sodium 139 135 - 145 mmol/L [facility] Potassium 3.4 3.3 - 5.1 mmol/L [facility] Chloride 104 96 - 108 mmol/L [facility] Carbon Dioxide 24 22 - 29 mmol/L [facility] Anion Gap 14 12 - 20 [facility] Urea Nitrogen (BUN) 80(H) 9 - 16 mg/dL [facility] Creatinine, Serum 2.72(H) 0.5 - 1.4 mg/dL [facility] Estimated Glomerular Filt Rate 23 [facility] Comment:Chronic Kidney Disea se: Estimated GFR < 60 mL/min/[id number] Kidney Disease: Estimated GFR < 15 mL/min/1.73m2 Glucose 144(H) 60 - 115 mg/dL [facility] Calcium 9.2 8.4 - 10.2 mg/dL [facility] 04/27/2025 12:0 5 PM EDT 04/27/2025 12:48 PM EDT us Blanca Anderson MD LAB BLOOD ORDERAB LES Final Result [facility] [address] [place] [address] [phone] documented in this encounter Visit Diagnoses Not on filedocumented in this encounter Additional Health Concerns Assessment Noted Time PHQ-9 Depression Total Score: 3 01/22/20 25 10:47 AM EDT documented as of this encounter Care Teams Weatherization Coordinator Relationship Specialty Start Date End Date Cynthia Marshall NP [address] [place] [address] PCP - General Family Medicine 09/10/23 [facility] 01/01/25 documented as of this encounter
--- OUTSIDE RECORDS SUMMARY | 2025-04-27 17:32 | XMS_ITS | Encounter Summary ---
Author Organization [employer] [facility] Address [address] [place] [address] 7t [place] [address] Care Team Providers Care Service Technician Copier Name Role Phone Virginia Perez Primary Care Provider Iveth Blanca Ferraro MD Primary Care Pro vider Cynthia Marshall NP Primary Care Provider [phone] Encounter Details Date Type Department Care Team (Latest Contact Info) Description 03/31/2021 Abstract [facility] CONVERSIONS Dental, Provider, DDS Social History Tobacco [...] 9:45 AM EDT Office Visit [facility] MEDICINE [address] [place] [address] Cynthia Marshall, MARLENE [address] [place] [address] documented as of this encounter Visit Diagnoses Not on filedocumented in this encounter Care Teams Service Technician Copier Relationship Specialty Start Date End Date Virginia Perez FNP PCP - General Family Medicine 04/28/22 03/28/23 Blanca Crowley MD [address] [place] [address] PCP - General Internal Medicine 03/29/23 09/09/23 Cynthia Marshall NP [address] [facility] [place] [address] PCP - General Family Medicine 09/10/23 [facility] 01/01/25 documented as of this encounter
--- OUTSIDE RECORDS SUMMARY | 2025-04-27 17:32 | XMS_ITS | Encounter Summary ---
Author Organization [employer] Address [address] [facility] 7t [place] [address] Care Team Providers Care Quality Assurance Coach Name Role Phone Cyntiha Marshall NP Primary Care Provider [phone] Reason for Visit * Reason Onset Date Comments Medication Question 04/27/2025 Encounter Details Date Type Department Care Team ([facility] st Contact Info) Description 04/27/2025 Telephone [facility] MEDICINE [address] [place], [place] [phone] Cynthia Marshall NP [address] [place], [place] [phone] Medication Question Social History Tobacco Use Types Packs/Day Years [...] * Telephone Encounter - Wilberto Mcgraw - 04/27/2025 4:35 PM EDT Tc from Luis MCDONNELL stating there is a concern with pt not taking medication at home. [facility] would like nurse to contact pt and follow up on situation. Please contact pt at [phone]. documented in this encounter Plan of Treatment Upcoming Encounters Date Type Department Care Team (Late st Contact Info) Description 05/06/2025 9:45 AM EDT Office Visit [facility] MEDICINE [address] [place] [address] Cynthia Marshall NP [address] [place] [address] documented as of this encounter Visit Diagnoses Not on filedocumented in this encounter Additional Health Concerns Assessment Noted Time PHQ-9 Depression Total Score: 3 01/22/20 25 10:47 AM EDT documented as of this encounter Care Teams Quality Assurance Coach Relationship Specialty Start Date End Date Cynthia Marshall NP [address] [place] [address] PCP - General Family Medicine 09/10/23 [facility] 01/01/25 documented as of this encounter
--- OUTSIDE RECORDS SUMMARY | 2025-04-27 17:32 | XMS_ITS | Encounter Summary ---
Author Organization [employer] Address [address] [facility] [address] [place] [address] Care Team Providers Care Digital Technician Name Role Phone Cynthia Marshall NP Primary Care Provider [phone] Encounter Details Date Type Department Care Team ([facility] st Contact Info) Description 04/11/2024 Orders Only [facility] MEDICINE [address] [place], [place] [phone] Cynthia Marshall NP [address] [place] [address] Stage 3b chronic kidney disease (CMS/HCC) Social [...] Description 05/06/2025 9:45 AM EDT Office Visit [facility] MEDICINE [address] [place], [place] [phone] Cynthia Marshall NP [address] [place], [place] [phone] documented as of this encounter Procedures Procedure Name Priority Date/Time Associated Diagnosis Comments BASIC METABOLIC PANEL Routine 07/04/2024 12:13 PM EST Stage 3b chronic kidney disease (CMS/HCC) documented in this encounter Results * (ABNORMAL) Basic Metabolic Panel (07/04/2024 12:13 PM EST) Sodium 141 135 - 145 mmol/L [facility] Potassium 3.4 3.3 - 5.1 mmol/L [facility] Chloride 104 96 - 108 mmol/L [facility] Carbon Dioxide 28 22 - 29 mmol/L [facility] Anion Gap 12 12 - 20 [facility] Urea Nitrogen (BUN) 42(H) 9 - 16 mg/dL [facility] Creatinine, Serum 1.96(H) 0.5 - 1.4 mg/dL [facility] Estimated Glomerular Filt Rate 34 [facility] Comment:Chronic Kidney Disea se: Estimated GFR < 60 mL/min/[id number] Kidney Disease: Estimated GFR < 15 mL/min/1.73m2 Glucose 110 60 - 115 mg/dL [facility] Calcium 9.2 8.4 - 10.2 mg/dL [facility] Blood Venous blood specimen / Unknown 07/04/2024 12:13 PM EST 07/04/2024 12:13 PM EST us Cynthia Marshall INDUSTRIAL ANALYST LAB BLOOD ORDERABLES Final Resul t [facility] [address] [place] [address] [phone] documented in this encounter Visit Diagnoses Diagnosis Stage 3b chronic kidney disease (CMS/HCC) documented in this encounter Additional Health Concerns Assessment Noted Time PHQ-9 Depression Total Score: 0 01/21/20 24 11:17 AM EDT documented as of this encounter Care Teams Digital Technician Relationship Specialty Start Date End Date Cynthia Marshall NP [address] [place] [address] PCP - General Family Medicine 09/10/23 [facility] 01/01/25 documented as of this encounter
--- OUTSIDE RECORDS SUMMARY | 2025-04-27 17:32 | XMS_ITS | Encounter Summary ---
Author Organization [employer] Address [address] [place] [address] Care Team Providers Care Snuff Box Finisher Name Role Phone Jarad Lundy MD Primary Care Provider Encounter Details Date Type Department Care Team (Latest Contact Info) Description 12/19/[address] [facility] - Main Lab [address] [facility] [place] [address] Jarad Lundy MD [address] [place] [address] Type 2 diabetes mellitus without complications ([facility] V24, [facility] V28) Social History Tobacco Use Types [...] EDT Type 2 diabetes mellitus without complications ([facility]/H[facility] V24, [facility] V28) HEMOGLOBIN A1C Routine 12/19/2024 4:48 AM EDT Type 2 diabetes mellitus without complications ([facility] V24, CMS/[facility] V28) COMPREHENSIVE METABOLIC PANEL Routine 12/19/2024 4:48 AM EDT Type 2 diabetes mellitus without complications ([facility] V24, CMS/[facility] V28) documented in this encounter Results * Hemoglobin A1c (12/19/2024 4:48 AM EDT) Pathologist [facility] Hemoglobin A1C 5.7 <6.5 % LAB CHEMISTRY METHOD 12/19/2024 11:02 AM T [facility] Mean Bld Glu Estim. 117 mg/dL LAB CHEMISTRY METHOD 12/19/2024 11:02 AM [facility] Blood Venous blood specimen / Unknown Venipuncture / Unknown 12/19/2024 4:48 AM EDT 12/19/2024 7:19 AM EDT us Jarad Lundy MD LAB BLOOD ORDERABLES Final Resu lt [facility] [address] [place] [address], * (ABNORMAL) Comprehensive metabolic panel (12/19/2024 4:48 AM EDT) [facility] Sodium 141 133 - 145 mmol/L LAB CHEMISTRY METHOD 12/19/2024 8:20 AM [facility] Potassium 3.3(L) 3.5 - 5.5 mmol/L LAB CHEMISTRY METHOD 12/19/2024 8:20 AM [facility] Chloride 106 96 - 110 mmol/L LAB CHEMISTRY METHOD 12/19/2024 8:20 AM [facility] CO2 26 21 - 32 mmol/L LAB CHEMISTRY METHOD 12/19/2024 8:20 AM [facility] Anion Gap 9 3 - 11 LAB CHEMISTRY METHOD 12/19/2024 8:20 AM [facility] Glucose 74 70 - 100 mg/dL LAB CHEMISTRY METHOD 12/19/2024 8:20 AM [facility] BUN 26(H) 5 - 25 mg/dL LAB CHEMISTRY METHOD 12/19/2024 8:20 AM [facility] Creatinine 1.68(H) 0.70 - 1.30 mg/dL LAB CHEMISTRY METHOD 12/19/2024 8:20 AM [facility] eGFR 43(L) >=60 mL/min/1. 73m2 LAB CHEMISTRY METHOD 12/19/2024 8:20 AM [facility] Comment:Calculation based on the Chronic Kidney Disease Epidemiology Collaboration (CKD-EPI) equation refit without adjustment for race. BUN/Creatinine Ratio 15.5 LAB CHEMISTRY METHOD 12/19/2024 8:20 AM [facility] Calcium 8.1(L) 8.5 - 10.5 mg/dL LAB CHEMISTRY METHOD 12/19/2024 8:20 AM [facility] AST (SGOT) 20 10 - 42 unit/L LAB CHEMISTRY METHOD 12/19/2024 8:20 AM [facility] ALT (SGPT) 18 10 - 60 unit/L LAB CHEMISTRY METHOD 12/19/2024 8:20 AM [facility] Alkaline Phosphatase 210(H) 42 - 121 unit/L LAB CHEMISTRY METHOD 12/19/2024 8:20 AM [facility] Total Protein 5.3(L) 6.0 - 8.0 g/dL LAB CHEMISTRY METHOD 12/19/2024 8:20 AM [facility] Albumin 2.0(L) 3.2 - 5.0 g/dL LAB CHEMISTRY METHOD 12/19/2024 8:20 AM [facility] Total Bilirubin 0.6 0.0 - 1.4 mg/dL LAB CHEMISTRY METHOD 12/19/2024 8:20 AM [facility] Blood Venous blood specimen / Unknown Venipuncture / Unknown 12/19/2024 4:48 AM EDT 12/19/2024 7:19 AM EDT us Jarad Lundy MD LAB BLOOD ORDERABLES Final Resu lt [facility] [address] [place] [address], * (ABNORMAL) Complete blood count (12/19/2024 4:48 AM EDT) [facility] Signature WBC 9.1 4.8 - 10.8 K/mcL LAB HEMETOLOGY METHOD 12/19/2024 7:52 AM EDT [facility] RBC 3.60(L) 4.50 - 5.50 M/mcL LAB HEMETOLOGY METHOD 12/19/2024 7:52 AM EDT [facility] Hemoglobin 10.3(L) 13.5 - 17.5 g/dL LAB HEMETOLOGY METHOD 12/19/2024 7:52 AM EDT [facility] Hematocrit 31.6(L) 42.0 - 54.0 % LAB HEMETOLOGY METHOD 12/19/2024 7:52 AM EDT [facility] MCV 88.8 79.0 - 98.0 FL LAB HEMETOLOGY METHOD 12/19/2024 7:52 AM EDT [facility] MCH 28.9 27.0 - 32.0 pcg LAB HEMETOLOGY METHOD 12/19/2024 7:[facility] MCHC 32.6 32.0 - 37.0 g/dL LAB HEMETOLOGY METHOD 12/19/2024 7:52 AM EDT [facility] RDW 16.2(H) 11.0 - 15.0 % LAB HEMETOLOGY METHOD 12/19/2024 7:52 AM EDT [facility] Platelets 308 130 - 400 K/mcL LAB HEMETOLOGY METHOD 12/19/2024 7:52 [facility] MPV 9.1 7.0 - 11.0 FL LAB HEMETOLOGY METHOD 12/19/2024 7:52 AM EDT [facility] NRBC 0.0 <1.0 % LAB HEMETOLOGY METHOD 12/19/2024 7:52 AM EDT [facility] NRBC Absolute 0.00 <0.10 K/mcL LAB HEMETOLOGY METHOD 12/19/2024 7:52 AM EDT [facility] Blood Venous blood specimen / Unknown Venipuncture / Unknown 12/19/2024 4:48 AM EDT 12/19/2024 7:19 AM EDT us Jarad Lundy MD LAB BLOOD ORDERABLES Final Resu lt [facility] [address] [place] [address], [place] [phone] documented in this encounter Visit Diagnoses Diagnosis Type 2 diabetes mellitus without complications (CMS/HCC V24, CMS/HCC V28) documented in this encounter Care Teams Snuff Box Finisher Relationship Specialty Start Date End Date Jarad Lundy MD [address] [place] [address] PCP - General Hospitalist Medicine 12/17/24 documented as of this encounter
--- OUTSIDE RECORDS SUMMARY | 2025-04-27 17:32 | XMS_ITS | Encounter Summary ---
Author Organization [employer] Address [address] [facility] 7t [place] [address] Care Team Providers Care Disc Inspector Name Role Phone Cynthia Marshall NP Primary Care Provider [phone] Reason for Visit * Reason Comments Med Refill Encounter Details Date Type Department Care Team ([facility] st Contact Info) Description 11/04/2023 Refill [facility] [address] [place] [address] Blanca Crowley MD [address] [place] [address] Social History Tobacco Use Types Packs/Day Years [...] Description 05/06/2025 9:45 AM EDT Office Visit [facility] MEDICINE [address] [place] [address] Cynthia Marshall NP [address] [place] [address] documented as of this encounter Visit Diagnoses Not on filedocumented in this encounter Additional Health Concerns Assessment Noted Time PHQ-9 Depression Total Score: 0 01/11/20 23 9:39 AM EDT documented as of this encounter Care Teams Disc Inspector Relationship Specialty Start Date End Date Cynthia Marshall NP [address] [place] [address] PCP - General Family Medicine [facility] documented as of this encounter
--- OUTSIDE RECORDS SUMMARY | 2025-04-27 17:32 | XMS_ITS | Encounter Summary ---
Author Organization [employer] Address [address] 7t [place] [address] Care Team Providers Care Crew Boat Operator Name Role Phone Cynthia Marshall NP Primary Care Provider [phone] Encounter Details Date Type Department Care Team ([facility] st Contact Info) Description 07/04/2024 Orders Only [facility] [address] [place], [place] [phone] Cynthia Marshall NP [address] [place] [address] Stage 3b chronic kidney disease (CMS/HCC) Social [...] 05/06/2025 9:45 AM EDT Office Visit [facility] [address] [place], [place] [phone] Cynthia Marshall NP [address] [place], [place] [phone] documented as of this encounter Procedures Procedure Name Priority Date/Time Associated Diagnosis Comments NM KIDNEY FLOW/FUNCTION W PHARMACOLOGICAL INTERVENTION Routine 07/31/2024 10:58 AM EST documented in this encounter Results * NM Kidney Flow/Function w/ Pharmacological Intervention (07/31/2024 10:58 AM EST) Anatomical Region Laterality Modality Body Nuclear Medicine 07/31/2024 10:5 8 AM EST Narrative 08/08/2024 10:06 AM EST [address] [address] Nuclear Medicine Report Signed Patient: Ethan Cristina MR#: [id number] 0 : 1950 Acct:[id number] Age/Sex: 73 / M ADM Date: 07/31/24 Loc: SUSAN Attending Dr: Kong Duarte MD Ordering Physician: Kong Duarte MD Date of Service: 07/31/24 Procedure(s): NM renal flow w pharm int Accession Number(s): [id number] cc: Kong Duarte MD; Graef,Cynthia B BRANCH SPECIALIST EXAMINATION: RENAL DYNAMIC IMAGING STUDY WITH LASIX [...] by: Janice Pate MD 08/08/2024 10:03 AM [facility] Dictated By: Janice Pate Signed By: <Electronically signed by Janice Pate in OV> 08/08/24 1003 DD/ 1058 TD/TT: 07/31/24 1345 Consolidation Accountant: Procedure Note Donotuseinterpreter, Image - 08/08/[address] [address] Nuclear Medicine Report Signed Patient: Tobin Cristina#: [id number] 0 : 3Acct:[id number] Age/Sex: 73 / MADM Date: 07/31/24 Loc: SUASN Attending Dr: Kong Duarte MD Ordering Physician: Kong Duarte MD Date of Service: 07/31/24 Procedure(s): NM renal flow w pharm int Accession Number(s): [id number] cc: Kong Duarte MD; Cynthia Marshall NP [...] by: Janice Pate MD 08/08/2024 10:03 AM [facility] Dictated By: Janice Pate Signed By: <Electronically signed by Janice Pate in OV> 08/08/24 1003 DD/ 1058 TD/TT: 07/31/24 1345 Consolidation Accountant: [facility] External Provider IMG NM PROCEDURES Final Result documented in this encounter Visit Diagnoses Diagnosis Stage 3b chronic kidney disease (CMS/HCC) documented in this encounter Additional Health Concerns Assessment Noted Time PHQ-9 Depression Total Score: 0 01/21/20 24 11:17 AM EDT documented as of this encounter Care Teams Crew Boat Operator Relationship Specialty Start Date End Date Cynthia Marshall NP [address] [place] [address] PCP - General Family Medicine 09/10/23 [facility] 01/01/25 documented as of this encounter
--- OUTSIDE RECORDS SUMMARY | 2025-04-27 17:32 | XMS_ITS | Encounter Summary ---
Author Organization [employer] Address [address] 7[address] [place] [address] Care Team Providers Care Vehicle Maintenance Technician Name Role Phone Cynthia Marshall NP Primary Care Provider [phone] Reason for Visit * Reason Comments Med Refill Encounter Details Date Type Department Care Team (Late st Contact Info) Description 05/16/2024 Refill [facility] [address] [place] [address] Oly Guerrero FNP Social History Tobacco Use [...] Description 05/06/2025 9:45 AM EDT Office Visit [facility] [address] [place] [address] Cynthia Marshall NP [address] [place] [address] documented as of this encounter Visit Diagnoses Not on filedocumented in this encounter Additional Health Concerns Assessment Noted Time PHQ-9 Depression Total Score: 0 01/21/20 24 11:17 AM EDT documented as of this encounter Care Teams Vehicle Maintenance Technician Relationship Specialty Start Date End Date Cynthia Marshall NP [address] [place] [address] PCP - General Family Medicine 09/10/23 [facility] 01/01/25 documented as of this encounter
--- OUTSIDE RECORDS SUMMARY | 2025-04-27 17:32 | XMS_ITS | Encounter Summary ---
Author Organization [employer] Address [address] [facility] 7t [place] [address] Care Team Providers Care Fashion Consultant Selling Name Role Phone Cynthia Marshall NP Primary Care Provider [phone] Reason for Visit * Reason Onset Date Comments Hospital Follow-up 04/21/2025 Encounter Details Date Type Department Care Team ([facility] st Contact Info) Description 04/21/2025 Telephone [facility] [address] [place] [address] Cynthia Marshall NP [address] [place] [address] Hospital Follow-up Social History Tobacco Use Types Packs/Day Years [...] encounter Miscellaneous Notes * Telephone Encounter - Franchesca Timmons - 04/21/2025 10:38 AM EDT Tc from pt requesting a HDF appt. Hospital: [facility] Date of admission: 04/12 Discharge date: 04/18 Diagnosed: heart failure and pneumonia *Send message to [place] Clinical Care Coordinators Contact Jalyn at [facility] [phone] documented in this encounter Plan of Treatment Upcoming Encounters Date Type Department Care Team (Late st Contact Info) Description 05/06/2025 9:45 AM EDT Office Visit [facility] [address] [place] [address] Cynthia Marshall NP [address] [place] [address] documented as of this encounter Visit Diagnoses Not on filedocumented in this encounter Additional Health Concerns Assessment Noted Time PHQ-9 Depression Total Score: 3 01/22/20 25 10:47 AM EDT documented as of this encounter Care Teams Fashion Consultant Selling Relationship Specialty Start Date End Date Cynthia Marshall NP [address] [place] [address] PCP - General Family Medicine 09/10/23 [facility] 01/01/25 documented as of this encounter
--- OUTSIDE RECORDS SUMMARY | 2025-04-27 17:32 | XMS_ITS | Encounter Summary ---
Author Organization [employer] Address [address] [facility] [address] 7[address] [place] [address] Care Team Providers Care Cad Application Support Specialist Name Role Phone Cynthia Marshall NP Primary Care Provider [phone] Encounter Details Date Type Department Care Team ([facility] st Contact Info) Description 09/26/2024 Orders Only [facility] [address] [place], [place] [phone] Cynthia Marshall NP [address] [place] [address] Stage 3b chronic kidney disease (CMS/HCC) Social [...] Description 05/06/2025 9:45 AM EDT Office Visit [facility] [address] [place] [address] Cynthia Marshall NP [address] [place] [address] documented as of this encounter Visit Diagnoses Diagnosis Stage 3b chronic kidney disease (CMS/HCC) documented in this encounter Additional Health Concerns Assessment Noted Time PHQ-9 Depression Total Score: 0 01/21/20 24 11:17 AM EDT documented as of this encounter Care Teams Cad Application Support Specialist Relationship Specialty Start Date End Date Cynthia Marshall NP [address] [place] [address] PCP - General Family Medicine 09/10/23 [facility] 01/01/25 documented as of this encounter
--- OUTSIDE RECORDS SUMMARY | 2025-04-27 17:32 | XMS_ITS | Encounter Summary ---
Author Organization [employer] Address [address] [facility] 7t [place] [address] Care Team Providers Care Carton Catcher Name Role Phone Cynthia Marshall NP Primary Care Provider [phone] Reason for Visit * Reason Onset Date Comments Returning Call 01/12/2025 Encounter Details Date Type Department Care Team ([facility] st Contact Info) Description 01/12/2025 Telephone [facility] [address] [place], [place] [phone] Cynthia Marshall NP [address] [place], [place] [phone] Returning Call Social History Tobacco Use Types [...] Description 05/06/2025 9:45 AM EDT Office Visit [facility] [address] [place] [address] Cynthia Marshall NP [address] [place] [address] documented as of this encounter Visit Diagnoses Not on filedocumented in this encounter Additional Health Concerns Assessment Noted Time PHQ-9 Depression Total Score: 0 01/21/20 24 11:17 AM EDT documented as of this encounter Care Teams Carton Catcher Relationship Specialty Start Date End Date Cynthia Marshall NP [address] [place] [address] PCP - General Family Medicine 09/10/[facility] 01/01/25 documented as of this encounter
--- OUTSIDE RECORDS SUMMARY | 2025-04-27 17:32 | XMS_ITS | Clinical Summary ---
Author Organization [address] Address [address] [place] [address] Phone Care Team Providers Care Lens Coater Name Role Phone Jarad Lundy MD Primary Care Provider [phone] Surgical History Surgery Date Site/Laterality Comments SHOULDER SURGERY 06/18/07 PROCEDURE: HISTORICAL SHOULDER SURGERY; COMMENT: Rotator cuff- Dr. Adis King APPENDECTOMY PROCEDURE: HISTORICAL APPENDECTOMY COLONOSCOPY 12/28/2011 PROCEDURE: HISTORICAL COLONOSCOPY; COMMENT: normal UPPER GASTROINTESTINAL ENDOSCOPY 03/14/2016 PROCEDURE: [place] UPPER GI ENDOSCOPY PERFORMED; COMMENT: Visually normal; duodenal biopsies: Minimal nonspecific inflammation Medical History Medical History Date Comments Unspecified essential hypertension DX:Unspecified essential hypertension Basilar artery aneurysm ([facility] V24) 10/07/2013 DX:Basilar artery aneurysm ([facility]) Type 2 diabetes, diet contro lled ([facility] V24, [facility] V28) 10/07/2013 DX:Type 2 diabetes, diet co ntrolled ([facility]) Type 2 diabetes, diet contro lled ([facility] V24, [facility] V28) 10/07/2013 DX:Type 2 diabetes, diet co ntrolled ([facility]) Controlled type 2 diabetes w ith renal [...] - 19+ 3-dose series) 11/24/2022 06/28/2022, 05/26/2022 Depression Screening 08/13/2024 Diabetes: Annual Urine Albumin-Creatinine Ratio (uACR) 12/19/2024 COVID-19 Vaccine ( season) 2025 07/11/2021, 01/28/2021, 12/31/2020 Influenza Vaccine (#1) 2025 [...] EDT Type 2 diabetes mellitus without complications ([facility] V24, [facility] V28) HEMOGLOBIN A1C Routine 12/19/2024 4:48 AM EDT Type 2 diabetes mellitus without complications ([facility] V24, [facility] V28) from Last 3 Months or Most Recently Relevant to Health Maintenance Results * Hemoglobin A1c (12/19/2024 4:48 AM EDT) Hemoglobin A1C 5.7 <6.5 % LAB CHEMISTRY METHOD 12/19/2024 11:02 AM EDT [facility] Mean Bld Glu Estim. 117 mg/dL LAB CHEMISTRY METHOD 12/19/2024 11:02 AM EDT [facility] Blood Venous blood specimen / Unknown Venipuncture / Unknown 12/19/2024 4:48 AM EDT 12/19/2024 7:19 AM EDT us Jarad Lundy MD LAB BLOOD ORDERABLES Final Resu lt [facility] [address] [place] [address], [place] [phone] * (ABNORMAL) Comprehensive metabolic panel (12/19/2024 4:48 AM EDT) Sodium 141 133 - 145 mmol/L LAB CHEMISTRY METHOD 12/19/2024 8:20 AM [facility] Potassium 3.3(L) 3.5 - 5.5 mmol/L LAB CHEMISTRY METHOD 12/19/2024 8:20 AM [facility] Chloride 106 96 - 110 mmol/L LAB CHEMISTRY METHOD 12/19/2024 8:20 AM [facility] CO2 26 21 - 32 mmol/L LAB CHEMISTRY METHOD 12/19/2024 8:20 AM [facility] Anion Gap 9 3 - 11 LAB CHEMISTRY METHOD 12/19/2024 8:20 AM [facility] Glucose 74 70 - 100 mg/dL LAB CHEMISTRY METHOD 12/19/2024 8:20 AM [facility] BUN 26(H) 5 - 25 mg/dL LAB CHEMISTRY METHOD 12/19/2024 8:20 AM [facility] Creatinine 1.68(H) 0.70 - 1.30 mg/dL LAB CHEMISTRY METHOD 12/19/2024 8:20 AM [facility] eGFR 43(L) >=60 mL/min/1. 73m2 LAB CHEMISTRY METHOD 12/19/2024 8:20 AM [facility] Comment:Calculation based on the Chronic Kidney Disease Epidemiology Collaboration (CKD-EPI) equation refit without adjustment for race. BUN/Creatinine Ratio 15.5 LAB CHEMISTRY METHOD 12/19/2024 8:20 AM [facility] Calcium 8.1(L) 8.5 - 10.5 mg/dL LAB CHEMISTRY METHOD 12/19/2024 8:20 AM [facility] AST (SGOT) 20 10 - 42 unit/L LAB CHEMISTRY METHOD 12/19/2024 8:20 AM [facility] ALT (SGPT) 18 10 - 60 unit/L LAB CHEMISTRY METHOD 12/19/2024 8:20 AM [facility] Alkaline Phosphatase 210(H) 42 - 121 unit/L LAB CHEMISTRY METHOD 12/19/2024 8:20 AM EDT [facility] Total Protein 5.3(L) 6.0 - 8.0 g/dL LAB CHEMISTRY METHOD 12/19/2024 8:20 AM EDT [facility] Albumin 2.0(L) 3.2 - 5.0 g/dL LAB CHEMISTRY METHOD 12/19/2024 8:20 AM EDT [facility] Total Bilirubin 0.6 0.0 - 1.4 mg/dL LAB CHEMISTRY METHOD 12/19/2024 8:20 AM EDT [facility] Blood Venous blood specimen / Unknown Venipuncture / Unknown 12/19/2024 4:48 AM EDT 12/19/2024 7:19 AM EDT us Jarad Lundy MD LAB BLOOD ORDERABLES Final Resu lt [facility] [address] [place] [address], from Last 3 Months or Most Recently Relevant to Health Maintenance Insurance [place]ID - [place] [facility] [place] [place] [id number] Care Teams Lens Coater Relationship Specialty Start Date End Date Jarad Lundy MD [address] [place] [address] PCP - General Hospitalist Medicine 12/17/24
--- OUTSIDE RECORDS SUMMARY | 2025-04-27 17:32 | XMS_ITS | Encounter Summary ---
Author Organization [employer] Address [address] [facility] 7t [place] [address] Care Team Providers Care Burn Nurse Name Role Phone Cynthia Marshall NP Primary Care Provider [phone] Reason for Visit * Reason Onset Date Comments June Recall 04/23/2025 Encounter Details Date Type Department Care Team ([facility] st Contact Info) Description 04/23/2025 Telephone [facility] [address] [place] [address] Cynthia Marshall NP [address] [place] [address] June Recall Social History Tobacco Use Types Packs/Day Years [...] encounter Miscellaneous Notes * Telephone Encounter - Cris Overton [place] - 04/23/2025 3:32 PM EDT Telephone call to patient to schedule a recall appointment. No answer, Left voicemail to return call to clinic.. Recall letter sent. Visit type: Office visit Appointment notes: f/u Month due: June With: Rolando Please schedule appointment above if patient returns call documented in this encounter Plan of Treatment Upcoming Encounters Date Type Department Care Team (Late st Contact Info) Description 05/06/2025 9:45 AM EDT Office Visit [facility] [address] [place] [address] Cynthia Marshall NP [address] [place] [address] documented as of this encounter Visit Diagnoses Not on filedocumented in this encounter Additional Health Concerns Assessment Noted Time PHQ-9 Depression Total Score: 3 01/22/20 25 10:47 AM EDT documented as of this encounter Care Teams Burn Nurse Relationship Specialty Start Date End Date Cynthia Marshall NP [address] [place] [address] PCP - General Family Medicine 09/10/23 [facility] 01/01/25 documented as of this encounter
--- OUTSIDE RECORDS SUMMARY | 2025-04-27 17:32 | XMS_ITS | Encounter Summary ---
Author Organization [facility] Address [address] [place] [address] Phone Care Team Providers Care Boat Buffer Plastic Name Role Phone Arielle Godinez Primary Care Provider Unavailabl e Encounter Details Date Type Department Care Team (Late st Contact Info) Description 01/03/2024 Office Communication [facility] [address] [place] [address] Soy Meléndez MD [address] [facility] [address] [place] [address] Social History Tobacco Use Types [...] on filedocumented in this encounter Care Teams Boat Buffer Plastic Relationship Specialty Start Date End Date Arielle Godinez PCP - General Family Medicine 08/10/21 documented as of this encounter
--- OUTSIDE RECORDS SUMMARY | 2025-04-27 17:32 | XMS_ITS | Encounter Summary ---
Author Organization [employer] Address [address] [facility] [address] 7[address] [place] [address] Care Team Providers Care Food Service Supervisor Name Role Phone Cynthia Marshall NP Primary Care Provider [phone] Reason for Visit * Reason Comments Med Refill Encounter Details Date Type Department Care Team ([facility] st Contact Info) Description 02/07/2025 Refill [facility] [address] [place] [address] Cynthia Marshall NP [address] [place] [address] Social History Tobacco Use Types Packs/Day Years [...] Description 05/06/2025 9:45 AM EDT Office Visit [facility] [address] [place] [address] Cynthia Marshall NP [address] [place] [address] documented as of this encounter Visit Diagnoses Not on filedocumented in this encounter Additional Health Concerns Assessment Noted Time PHQ-9 Depression Total Score: 3 01/22/20 25 10:47 AM EDT documented as of this encounter Care Teams Food Service Supervisor Relationship Specialty Start Date End Date Cynthia Marshall NP [address] [place] [address] PCP - General Family Medicine 09/10/23 [facility] 01/01/25 documented as of this encounter
--- OUTSIDE RECORDS SUMMARY | 2025-04-27 17:32 | XMS_ITS | Clinical Summary ---
Author Organization [facility] Address [address] [place] [address] Care Team Providers Care Health And Safety Manager Name Role Phone Arielle Godinez Primary Care Provider Unavailabl e Allergies No known active allergies Medications Lancets (OneTouch Delica Plus [id number]) [facility] [place] TEST BLOOD SUGAR [...] (01/04/2024): Last Assessment & Plan: Lesion right religious suspicious for [place], referral to derm Chronic [...] age to complete this topic Insurance Medicaid [place] [facility] ([id number]) [place] [facility] ([id number]) Care Teams Health And Safety Manager Relationship Specialty Start Date End Date Arielle Godinez PCP - General Family Medicine 08/10/21
--- OUTSIDE RECORDS SUMMARY | 2025-04-27 17:32 | XMS_ITS | Encounter Summary ---
Author Organization [employer] Address [address] [facility] [address] [place] [address] Care Team Providers Care Chicken Hanger Name Role Phone Cynthia Marshall NP Primary Care Provider [phone] Encounter Details Date Type Department Care Team (Late st Contact Info) Description 12/31/2023 Orders Only [facility] [address] [place] [address] Corby Jacobs MD [address] [place] [address] Elevated blood uric acid level (Primary Dx) [...] Description 05/06/2025 9:45 AM EDT Office Visit [facility] [address] [place] [address] Cynthia Marshall NP [address] [place] [address] documented as of this encounter Visit Diagnoses Diagnosis Elevated blood uric acid level- Primary documented in this encounter Additional Health Concerns Assessment Noted Time PHQ-9 Depression Total Score: 0 01/11/20 23 9:39 AM EDT documented as of this encounter Care Teams Chicken Hanger Relationship Specialty Start Date End Date Cynthia Marshall NP [address] [place] [address] PCP - General Family Medicine 09/10/23 [facility] 01/01/25 documented as of this encounter
--- OUTSIDE RECORDS SUMMARY | 2025-04-27 17:33 | XMS_ITS | Clinical Summary ---
Author Organization [employer] Address [address] [place] [address] 7[address] [place] [address] Care Team Providers Care Piano Regulator Name Role Phone Cynthia Marshall NP Primary Care Provider [phone] Allergies No known active allergies Medications fluticasone (Flonase) 50 MCG/ACT nasal sprayIndication s:Nasal congestion INSTILL 1 SPRAY IN EACH NOSTRIL ONCE DAILY IN THE MORNING 16 g 08/22/19 24 Active Blood Glucose Monitoring Suppl (FreeStyle [place] Lite) w/Device kitIndications: Type 2 diabetes mellitus with other specified complication, without long-term current use of insulin ([facility]) Use to test blood sugar bid dx dm 1 kit 12/05/19 24 Active glucose blood (OneTouch Ultra) test stripIndication s:Type 2 diabetes mellitus with other specified complication, without long-term current use of insulin (CMS/[facility]) test blood sugar as needed, in [...] for 14 days. 28 tablet 04/09/20 25 Active FeroSul 325 (65 Fe) MG tablet [...] mouth Once per day. 30 tablet 04/07/20 025 Discontinued(Re order (will not trigger notification [...] called Edema 03/10/2025 Dyspnea on exertion 03/04/2025 Assessment & Plan (04/17/2025 10:17 AM EDT): Pt with exertional dyspnea, concerning for hypoxia and chf Adament does not want to go to hospital Good uop improtance of daily weights reviewed Lower extremity edema 03/04/2025 Hypokalemia 02/04/2025 Assessment [...] scanned in chart, Reviewed elder services in [place] Continue home VNA, Rectal bleeding 01/21/2025 Gastrointestinal [...] pt is living alone at this time Social Insurance Administrator resources given to family Referral to [facility] elder services Home VNA as quickly as [...] Son to reconcile meds with pharmacy, 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 Assessment & Plan (04/17/2025 10:17 AM EDT): Severe , management challenging as pt is deemed competent but pt is having trouble managing meds and remembering to take meds as prescribed Daughter aware of challenges Pt aware of poor outcomes including Assessment & Plan (04/08/2025 4:25 PM EDT): [...] after discharge. Spoke with DMITRY Nagy at [facility] and they will be waiting for [...] Plan (10/08/2023 5:16 PM EST): Lesion right advent suspicious for AK, referral to derm Stage [...] Encounters Date Type Department Care Team Description 04/27/2025 Telephone [facility] [place] [address] Cynthia Marshall NP Medication Question 04/27/2025 Orders Only [facility] [place] [address] Blanca Crowley MD 04/23/[address] [address] Cynthia Marshall NP June04/21/2025 Patient Outreach [facility] [place] [address] Cynthia Marshall NP Transition Of Care (Tcm) (HDF scheduled) 04/21/2025 Telephone [facility] [place] [address] Cynthia Marshall NP Hospital Follow-up 04/14/[address] [address] Shoshana Chaudhary RN 04/14/[address] [address] Blanca Crowley MD CHART PREP 04/12/2025 Orders Only GENERIC EXTERNAL DATA DEPARTMENT Provider, Generic External Data 04/11/2025 10:40 AM EDT Office Visit [facility] [place] [address] Sebastián Ahn MD Pedal edema (Primary Dx) 04/11/2025 Travel 04/09/2025 8:40 AM EDT Office Visit [facility] [place] [address] Apryl Ruelas DO Scrotal edema (Primary Dx); Bilateral lower extremity edema 04/09/[address] [address] Shoshana Chaudhary RN 04/09/2025 Travel 04/07/2025 2:45 PM EDT Office Visit [address] [address] Cynthia Marshall NP Acute on chronic congestive heart failure, unspecified heart failure type ([facility]/HCC) (Primary Dx); Type 2 diabetes mellitus with other specified complication, without long-term current use of insulin ([facility]); Paroxysmal atrial fibrillation ([facility]); CHF (congestive heart failure), NYHA class II, acute on chronic, combined ([facility]); CKD stage 4 secondary to hypertension ([facility]); Moderate dementia with anxiety, unspecified dementia type ([facility]) 04/07/2025 Travel 04/06/2025 3:20 PM EDT [facility] [address] [address] Blanca Mills MD Acute on chronic congestive heart failure, unspecified heart failure type ([facility]/HCC) (Primary Dx) 04/06/2025 [facility]phone [facility] [address] [address] Cynthia Marshall NP 04/06/2025 Travel 04/04/2025 Orders Only GENERIC EXTERNAL DATA DEPARTMENT Provider, Generic External Data 03/31/[address] [address] Cynthia Marshall NP Call Back Request 03/30/2025 Orders Only [facility] External Provider, [facility] 03/30/2025 Travel 03/25/2025 9:40 AM EDT [facility] [address] [address] Corby Jacobs MD Hypoxia (Primary Dx) 03/25/[address] [address] Cynthia Marshall NP Call Back Request 03/25/2025 Orders Only GENERIC EXTERNAL DATA DEPARTMENT Provider, Generic External Data 03/25/2025 Travel 03/24/[address] [address] Cynthia Marshall NP Durable Medical Equipment 03/23/2025 Orders Only [facility] External Provider, [facility] 03/13/2025 9:30 AM EDT Clinical Support [facility] [place] [address] Shoshana Chaudhary RN CHF (congestive heart failure), NYHA class II, acute on chronic, combined ([facility]) [I50.43] 03/13/2025 Travel 03/10/2025 10:30 AM EDT Clinical Support [address] [address] Elizabeth Hwang RN Primary hypertension 03/10/[address] [address] Cynthia Marshall NP Durable Medical Equipment 03/10/2025 Travel 03/05/[address] [address] Cynthia Marshall NP Durable Medical Equipment 03/04/2025 10:15 AM EDT Office Visit [address] [address] Cynthia Marshall NP CHF (congestive heart failure), NYHA class II, acute on chronic, combined ([facility]) (Primary Dx); Essential hypertension; Paroxysmal atrial fibrillation ([facility]); Type 2 diabetes mellitus with other specified complication, without long-term current use of insulin ([facility]); Dyspnea on exertion; Lower extremity edema 03/04/[address] [address] Shoshana Chaudhary RN 03/04/2025 Travel 03/03/[address] [address] Kecia Phillips [place] CHARTPREP 02/26/[address] [address] Cynthia Marshall NP Need for echo 02/12/[address] [address] Cynthia Marshall NP Nurse Triage 02/10/[address] [address] Cynthia Marshall NP Nurse Triage 02/07/2025 Refill [address] [place] [address] Cynthia Marshall NP 02/06/2025 Telephone [facility] [address] [place] [address] Cynthia Marshall NP FYI 02/05/2025 Telephone [facility] [address] [place] [address] Cynthia Marshall NP requesting call back 02/04/2025 10:45 AM EDT Office Visit [facility] [address] [place] [address], [place] [address] Blanca Mills MD Type 2 diabetes mellitus with stage 3a chronic kidney disease, without long-term current use of insulin ([facility]); Primary hypertension; Chronic systolic heart failure ([facility]); Hypokalemia; Hypomagnesemia 02/04/2025 Travel 02/04/2025 Refill [facility] [address] [place] [address] Rose Anderson, PharmD 02/03/[address] [address] Kecia Phillips [place] CHARTPREP 02/02/2025 Orders Only [facility] [address] [place] [phone] Severino Santoro, PharmD 02/02/[address] [address] Cynthia Marshall, MARLENE Call Back Request 02/02/2025 Refill [facility] [address] [place] [address] Cynthia Marshall NP 01/30/2025 Telephone [facility] [address] [place] [address] Cynthia Marshall NP Verbal Order 01/26/2025 1:20 PM EDT Office Visit [facility] [address] [place] [phone] Alena Myers MD Primary hypertension (Primary Dx); CHF (congestive heart failure), NYHA class II, acute on chronic, combined (CMS/HCC) 01/26/2025 Telephone [facility] [address] [place] [address] Cynthia Marshall, MARLENE Nurse Triage 01/26/2025 Telephone [facility] [address] [place] [address] Sebastián Ahn MD 01/26/2025 Travel from Last 3 Months Immunizations Immunization Administration [...] Description 05/06/2025 9:45 AM EDT Office Visit [facility] [address] [place] [address] Cynthia Marshall NP [address] [place] [address] Health Maintenance Due Date Last Done Comments CT Colonography 1950 Colonoscopy 1950 Colorectal Cancer Screening 1950 FIT DNA/Cologuard 1950 FIT 1950 FOBT 1950 Sigmoidoscopy 1950 Diabetes: Foot Exam 1962 Eye Exam 1962 Alcohol/Substance Use Screening 1964 Hepatitis C Screening 1970 RSV Patients and Patients Aged 60 years or older (1 - Risk 60-74 years 1-dose series) 2012 Hepatitis B Vaccines (3 of 3 - 19+ 3-dose series) 11/24/2022 06/28/2022, 05/26/2022 COVID-19 Vaccine ( season) 2025 07/11/2021, 01/28/2021, 12/31/2020 Influenza Vaccine (#1) 2025 , 08/01/2021, 06/09/2013, Additional history exists Diabetes: Hemoglobin A1C 07/18/2025 025, 12/19/2024, 12/03/2024, Additional history exists Lipid Panel 01/16/2026 01/16/2025, 06/14, 07/11/2021 Depression Screening 01/21/2026 01/21/2025, 01/22/20 SDOH Screening 01/21/2026 01/21/2025 Tobacco Screening 04/09/2026 [...] METABOLIC PANEL Routine 04/27/2025 12:05 PM EDT XR CHEST 1 VIEW Routine 04/17/2025 8:[address] CHEST WO CONTRAST Routine 04/12/2025 8:10 PM EDT VENOUS BLOOD GAS Routine 04/12/2025 4:32 PM EDT POCT GLUCOSE Routine 04/07/2025 2:48 PM EDT Type 2 diabetes mellitus with other specified complication, without long-term current use of insulin ([facility]) URINALYSIS, COMPLETE, WITH REFLEX TO CULTURE Routine [...] complication, without long-term current use of insulin ([facility]) POCT GLUCOSE Routine 02/04/2025 10:29 AM EDT Type 2 diabetes mellitus with stage 3a chronic kidney disease, without long-term current use of insulin ([facility]) ECG 12-LEAD Routine 01/28/2025 2:08 PM EDT Primary hypertension HEMOGLOBIN A1C Routine 01/16/2025 11:31 AM EDT Type 2 diabetes mellitus with other specified complication, without long-term current use of insulin ([facility]) LIPID PANEL, STANDARD Routine 01/16/2025 11:31 AM EDT Type 2 diabetes mellitus with other specified complication, without long-term current use of insulin ([facility]) from Last 3 Months or Most Recently Relevant to Health Maintenance Results * (ABNORMAL) Basic Metabolic Panel (04/27/2025 12:05 PM EDT) Only the most recent of2 resultswithin the time period is included. Sodium 139 135 - 145 mmol/L [facility] Potassium 3.4 3.3 - 5.1 mmol/L [facility] Chloride 104 96 - 108 mmol/L [facility] Carbon Dioxide 24 22 - 29 mmol/L [facility] Anion Gap 14 12 - 20 [facility] Urea Nitrogen (BUN) 80(H) 9 - 16 mg/dL [facility] Creatinine, Serum 2.72(H) 0.5 - 1.4 mg/dL [facility] Estimated Glomerular Filt Rate 23 [facility] Comment:Chronic Kidney Disea se: Estimated GFR < 60 mL/min/1.55p0Sijxqa Kidney Disease: Estimated GFR < 15 mL/min/1.73m2 Glucose 144(H) 60 - 115 mg/dL [facility] Calcium 9.2 8.4 - 10.2 mg/dL [facility] 04/27/2025 12:0 5 PM EDT 04/27/2025 12:48 PM EDT us Blanca Anderson MD LAB BLOOD ORDERAB LES Final Result Performing Organization Address City/State/[facility] Co de Phone Number [facility] [address] [place] [address] [phone] * XR Chest 1 View (04/17/2025 8:33 AM EDT) Only the most recent of3 resultswithin the time period is included. Anatomical Region Laterality Modality Chest Radiographic Smitha ging 04/17/2025 8:33 AM EDT Narrative 04/17/2025 8:54 AM EDT [place] [address] XRay Report Signed Patient: Ethan Cristina MR#: [id number] 0 : 1950 Acct:[id number] Age/Sex: 74 / M ADM Date: 04/12/25 Loc: [facility] 459-[address]: Austyn Wilson MD Ordering Physician: Austyn Wilson MD Date of Service: 04/17/25 Procedure(s): XR chest 1V Accession Number(s): [id number] cc: Austyn Wilson MD; Blanca Crowley MD Reason for Exam: follow up R pleural effusion EXAMINATION: XR CHEST CLINICAL INFORMATION: follow up R pleural effusion COMPARISON: Numerous priors most recently 04/12/2025. CT chest 04/12/2025. TECHNIQUE: Frontal view of the chest was obtained. FINDINGS: There is cardiac enlargement. Aortic mural calcifications. Mediastinal and hilar contours appear normal. There is a small to moderate-sized layering right effusion, slightly larger than previously. Underlying right basilar opacity/consolidation, likely compressive atelectasis. Pneumonia cannot be excluded. The left lung is clear. There is no left effusion. There is no perceptible pneumothorax. No focal osseous or soft tissue abnormality. There are degenerative changes in the shoulder joints and spine. XR/XR chest 1V IMPRESSION: 1. Cardiomegaly. 2. Slightly larger small to moderate-sized right pleural effusion. Underlying right basilar parenchymal opacity, likely compressive atelectasis. Pneumonia cannot be excluded given the appearance. Electronically signed by: Jack Shah MD 04/17/2025 08:51 AM EDT Dictated By: Jack Shah MD Signed By: <Electronically signed by Jack Shah MD in OV> 04/17/25 0851 DD/ TD/TT: 04/17/25 0847 Supervisor Uranium Processing: Procedure Note Donotuseinterpreter, Image - 04/17/[address] [address] XRay Report Signed Patient: Ethan Cristina#: [id number] 0 : 1950cct:[id number] Age/Sex: 74 / MADM Date: 04/12/25 Loc: [facility] 459-[address]: Austyn Wilson MD Ordering Physician: Austyn Wilson MD Date of Service: 04/17/25 Procedure(s): XR chest 1V Accession Number(s): [id number] cc: Austyn Wilson MD; Blanca Crowley MD Reason for Exam: follow up R pleural effusion EXAMINATION: XR CHEST CLINICAL INFORMATION: follow up R pleural effusion COMPARISON: Numerous priors most recently 04/12/2025. CT chest 04/12/2025. TECHNIQUE: Frontal view of the chest was obtained. FINDINGS: There is cardiac enlargement. Aortic mural calcifications. Mediastinal and hilar contours appear normal. There is a small to moderate-sized layering right effusion, slightly larger than previously. Underlying right basilar opacity/consolidation, likely compressive atelectasis. Pneumonia cannot be excluded. The left lung is clear. There is no left effusion. There is no perceptible pneumothorax. No focal osseous or soft tissue abnormality. There are degenerative changes in the shoulder joints and spine. XR/XR chest 1V IMPRESSION: 1. Cardiomegaly. 2. Slightly larger small to moderate-sized right pleural effusion. Underlying right basilar parenchymal opacity, likely compressive atelectasis. Pneumonia cannot be excluded given the appearance. Electronically signed by: Jack Shah MD 04/17/2025 08:51 AM EDT RP Dictated By: Jack Shah MD Signed By: <Electronically signed by Jack Shah MD in OV> 04/17/25 0851 DD/ TD/TT: 04/17/25 0847 Supervisor Uranium Processing: [facility] External Provider IMG XR PROCEDURES Final Result * CT Chest w/o Contrast (04/12/2025 8:10 PM EDT) Anatomical Region Laterality Modality Body, Chest Computed Tomogra phy 04/12/2025 8:10 PM EDT Narrative 04/12/2025 8:11 PM EDT [place] [address] CT Scan Report Signed Patient: Ethan Cristina MR#: [id number] 0 : 1950 Acct:[id number] Age/Sex: 74 / M ADM Date: 04/12/25 Loc: [facility] 459-[address]: Vivek Jaramillo MD Ordering Physician: Vivek Jaramillo MD Date of Service: 04/12/25 Procedure(s): CT chest wo IV con Accession Number(s): [id number] cc: Vivek Jaramillo MD; Blanca Crowley MD Report Number: [id number]: Total DLP = 0.00 mGy-cm CLINICAL HISTORY: ?pneumonia on xray with no clinical evidence CXR, CT chest without contrast Comparison: CR - XR CHEST 1V - 04/12/25 15:[address]/SR - CT CHEST WO IV CON - 12/06/24 15:12 EDT Findings: The heart is normal size. Calcification of the coronary vasculature. The visualized thyroid and mediastinum are unremarkable. The lungs are clear. Moderate right pleural effusion. Moderate right lower lobe airspace opacity. Visualized portions of the upper abdomen demonstrate a nodular hepatic contour as well as a small amount of perihepatic ascites. Biliary stent is incompletely visualized. The bones are intact. IMPRESSION: 1. Right lower lobe pneumonia with parapneumonic effusion as seen by plain film. 2. Coronary artery disease. 3. Cirrhosis. Small amount of ascites. This document has been electronically signed by: Adelia De Santiago MD on 04/12/2025 20:10:18 Dictated By: Adelia De Santiago MD Signed By: <Electronically signed by Adelia De Santiago MD in OV> 04/12/252010 DD/ 09 TD/TT: 04/12/252009 Supervisor Uranium Processing: Procedure Note Donotuseinterpreter, Image - 04/12/[address] [place] [address] [address] Scan Report Signed Patient: Ethan CristinaMR#: [id number] 0 : 1950cct:[id number] Age/Sex: 74 / MADM Date: 04/12/25 Loc: [facility] 459-[address]: Vivek Jaramillo MD Ordering Physician: Vivek Jaramillo MD Date of Service: 04/12/25 Procedure(s): CT chest wo IV con Accession Number(s): [id number] cc: Vivek Jaramillo MD; Blanca Crowley MD Report Number: [id number]: Total DLP = 0.00 mGy-cm CLINICAL HISTORY: ?pneumonia on xray with no clinical evidence CXR, CT chest without contrast Comparison: CR - XR CHEST 1V - 04/12/25 15:[address]/SR - CT CHEST WO IV CON - 12/06/24 15:12 EDT Findings: The heart is normal size. Calcification of the coronary vasculature. The visualized thyroid and mediastinum are unremarkable. The lungs are clear. Moderate right pleural effusion. Moderate right lower lobe airspace opacity. Visualized portions of the upper abdomen demonstrate a nodular hepatic contour as well as a small amount of perihepatic ascites. Biliary stent is incompletely visualized. The bones are intact. IMPRESSION: 1. Right lower lobe pneumonia with parapneumonic effusion as seen by plain film. 2. Coronary artery disease. 3. Cirrhosis. Small amount of ascites. This document has been electronically signed by: Adelia De Santiago MD on 04/12/2025 20:10:18 Dictated By: Adelia De Santiago MD Signed By: <Electronically signed by Adelia De Santiago MD in OV> 04/12/252010 DD/ 09 TD/TT: 04/12/252009 Supervisor Uranium Processing: [facility] External Provider IMG CT PROCEDURES Edited Result - Final * (ABNORMAL) VENOUS BLOOD GAS (04/12/2025 4:32 PM EDT) Only the most recent of3 resultswithin the time period is included. VBG pH 7.44(H) 7.32 - 7.43 [facility] Comment:METER #: [id number] additional_comment: Cb snowma VBG PCO2 32 mmHg [facility] Comment:METER #: [id number] additional_comment: Cb snowma VBG PO2 53 mmHg [facility] Comment:METER #: [id number] additional_comment: Cb snowma VBG Base Excess -0.5 mmol/L [facility] Comment:METER #: [id number] additional_comment: Cb snowma VBG HCO3 22 22 - 26 mmol/L [facility] Comment:METER #: [id number] additional_comment: Cb snowma O2 Sat, [place] 75.0 % [facility] Comment:METER #: [id number] additional_comment: Cb snowma 04/12/2025 4:32 PM EDT 04/12/2025 4:36 PM EDT Generic External Data Provider LAB BLOOD ORDERAB LES Final Result [facility] [address] [place] [address] [phone] * POCT Glucose (04/07/2025 2:48 PM EDT) Only the most recent of3 resultswithin [...] (04/04/2025 10:11 AM EDT) Color Urine Yellow [facility] Appearance Urine Clear [facility] PH 6.0 5.0 - 9.0 [facility] Glucose Urine UA Negative Negative mg/dL [facility] Urine Blood Negative Negative [facility] Specific [place] - Urine 1.015 1.005 - 1.025 [facility] Urine Protein 100 (2+)(A) Neg-Trace mg/dL [facility] Urine Ketones Negative Negative mg/dL [facility] Nitrite Urine Negative Negative [facility] Leukocyte Esterase Urine Trace(A) Negative [facility] RBC Urine 0-2 0 - 2 /HPF [facility] Urine WBC 0-5 0 - 5 /HPF [facility] Urine Squamous Epithelial Cell 0-2 0 - 2 /HPF [facility] Urine Bacteria None Seen None Seen [facility] Hyaline Casts, Urine 0-2 0 - 2 /LPF [facility] 04/04/2025 10:1 1 AM EDT 04/04/2025 10:16 AM EDT Narrative [facility] - 04/04/2025 10:24 AM EDT Urine, Clean Catch us Generic External Data Provider LAB URINE ORDERAB LES Final Result [facility] [address] [place] [phone] * XR Chest 2 Views (04/04/2025 9:51 AM EDT) Anatomical Region Laterality Modality Chest Radiographic Smitha ging 04/04/2025 9:51 AM EDT Narrative 04/04/2025 9:52 AM EDT [address] [address] XRay Report Signed Patient: Ethan Cristina MR#: [id number] 0 : 1950 Acct:[id number] Age/Sex: 74 / M ADM Date: 04/04/25 Loc: [facility].ED Attending Dr: Ordering Physician: Ernestine Vazquez NP Date of Service: 04/04/25 Procedure(s): XR chest 2V Accession Number(s): [id number] cc: Ernestine Vazquez NP; Blanca Crowley MD CLINICAL HISTORY: sob Exam: PA and lateral views of the chest. Comparison: January 22, 2025. Findings: Interval increase in size of a moderate-sized right pleural effusion. There is a small left pleural effusion. There is obscuration of the inferior right heart border in the right hemidiaphragm due to the pleural effusion. Cardiac silhouette is [id number]-wb-geimcoghum enlarged. Central interstitial markings are diffusely prominent. Degenerative change of both shoulder joints. Impression: Congestive heart failure. This document has been electronically signed by: Ajith Muniz MD on 04/04/2025 09:51:59 Dictated By: Ajith Muniz MD Signed By: <Electronically signed by Ajith Muniz MD in OV> 04/04/2552 DD/ 0 TD/TT: 04/04/25950 Supervisor Uranium Processing: Procedure Note Donotuseinterpreter, Image - 04/04/[address] [address] XRay Report Signed Patient: Ethan CristinaMR#: [id number] 0 : 3Acct:[id number] Age/Sex: 74 / MADM Date: 04/04/25 Loc: HO.ED Attending Dr: Ordering Physician: Ernestine Vazquez NP Date of Service: 04/04/25 Procedure(s): XR chest 2V Accession Number(s): [id number] cc: Ernestine Vazquez NP; Blanca Crowley MD CLINICAL HISTORY: sob Exam: PA and lateral views of the chest. Comparison: January 22, 2025. Findings: Interval increase in size of a moderate-sized right pleural effusion. There is a small left pleural effusion. There is obscuration of the inferior right heart border in the right hemidiaphragm due to the pleural effusion. Cardiac silhouette is wewj-hl-tsaaxxvjni enlarged. Central interstitial markings are diffusely prominent. Degenerative change of both shoulder joints. Impression: Congestive heart failure. This document has been electronically signed by: Ajith Muniz MD on 04/04/2025 09:51:59 Dictated By: Ajith Muniz MD Signed By: <Electronically signed by Ajith Muniz MD in OV> 04/04/2552 DD/ 0 TD/TT: 04/04/25950 Supervisor Uranium Processing: [facility] External Provider IMG XR PROCEDURES Edited Result - Final * SARS-CoV-2 RNA, Influenza A/B, and RSV RNA, Ql NAAT (04/04/2025 9:25 AM EDT) Influenza A PCR NEGATIVE Negative [facility] Influenza B PCR NEGATIVE Negative [facility] Resp Syncy Virus RNA Qual PCR NEGATIVE Negative [facility] SARS COV2 PCR NEGATIVE Negative [facility] Comment:All test results mus t [...] use by authorized laboratories.Testing performed on the [employer] PTY GeneXpert utilizingreal-time RT-PCR.All SARS CoV2 and positive influenza A/B results arereported to [facility]. 04/04/2025 9:25 AM EDT 04/04/2025 9:28 AM EDT us Generic External Data Provider LAB MICROBIOLOGY - GENERAL ORDERABLES Final Result [facility] [address] [place] [address] [phone] * (ABNORMAL) CBC auto differential (03/04/2025 11:18 AM EDT) White Blood Count 6.7 4.8 - 10.8 X10*3/uL [facility] Red Blood Count 3.65(L) 4.60 - 5.80 X10*6/uL [facility] Hemoglobin 9.9(L) 14.0 - 18.0 g/dl [facility] Hematocrit 32.8(L) 42.0 - 52.0 % [facility] Mean Corpuscular Volume 89.9 80.0 - 98.0 fL [facility] Mean Corpuscular Hemoglobin 27.1 27.0 - 33.0 pg [facility] Mean Corpuscular HGB Conc 30.2(L) 31.0 - 36.0 g/dl [facility] Red Cell Distribution Width 17.2(H) 11.0 - 16.0 % [facility] Platelet Count 249 160 - 400 X10*3/uL [facility] Mean Platelet Volume 9.8 9.4 - 12.4 fL [facility] Neutrophils Percent Auto 81.3(H) 45 - 73 % [facility] Imm Gran Pct Auto 0.3 0.0 - 0.4 % [facility] Lymphocytes Percent Auto 12.7(L) 20 - 40 % [facility] Monocytes Percent Auto 4.8 2 - 11 % [facility] Eosinophils Percent Auto 0.6 0 - 4 % [facility] Basophils Percent Auto 0.3 0 - 2 % [facility] NRBC Pct Auto 0.0 0.0 - 0.2 /100WBC [facility] Neutrophils Absolute Auto 5.4 2.0 - 8.3 x10*3/uL [facility] Imm Gran Abs Auto 0.02 0.00 - 0.03 X10*3/uL [facility] Lymphocytes Absolute Auto 0.9(L) 1.2 - 4.9 X10*3/uL [facility] Monocytes Absolute Auto 0.3 0.1 - 1.2 X10*3/uL [facility] Eosinophils Absolute Auto 0.0 0.0 - 0.4 X10*3/uL [facility] Basophils Absolute Auto 0.0 0.0 - 0.2 X10*3/uL [facility] NRBC Abs Auto 0.000 0.0 - 0.012 X10*3/uL [facility] Blood Venous blood specimen / Unknown 03/04/2025 11:18 AM EDT 03/04/2025 1:09 PM EDT us Cynthia Marshall NP LAB BLOOD ORDERABLES Final Resul t [facility] [address] [place] [address] [phone] * Magnesium (03/04/2025 11:18 AM EDT) Magnesium 1.6 1.6 - 2.6 mg/dL [facility] Blood Venous blood specimen / Unknown 03/04/2025 11:18 AM EDT 03/04/2025 1:09 PM EDT us Blanca Lujan MD LAB BLOOD ORDERABLES Final Result [facility] [address] [place] [address] [phone] * (ABNORMAL) Comprehensive Metabolic Panel (03/04/2025 11:18 AM EDT) Sodium 140 135 - 145 mmol/L [facility] Potassium 4.3 3.3 - 5.1 mmol/L [facility] Chloride 108 96 - 108 mmol/L [facility] Carbon Dioxide 26 22 - 29 mmol/L [facility] Anion Gap 10(L) 12 - 20 [facility] Urea Nitrogen (BUN) 33(H) 9 - 16 mg/dL [facility] Creatinine, Serum 1.93(H) 0.5 - 1.4 mg/dL [facility] Estimated Glomerular Filt Rate 34 [facility] Comment:Chronic Kidney Disea se: Estimated GFR < 60 mL/min/1.84h5Krnxyd Kidney Disease: Estimated GFR < 15 mL/min/1.73m2 Glucose 149(H) 60 - 115 mg/dL [facility] Calcium 8.9 8.4 - 10.2 mg/dL [facility] Bilirubin, Total 1.3(H) 0.0 - 1.0 mg/dL [facility] Aspartate Amino Transferase 29 5 - 37 U/L [facility] Alanine Aminotransferase 20 0 - 40 U/L [facility] Total Protein 7.2 6.5 - 8.0 g/dL [facility] Albumin Level 3.3(L) 3.5 - 5.0 g/dL [facility] Alkaline Phosphatase 219(H) 39 - 117 U/L [facility] Blood Venous blood specimen / Unknown 03/04/2025 11:18 AM EDT 03/04/2025 1:09 PM EDT us Cynthia Marshall NP LAB BLOOD ORDERABLES Final Resul t [facility] [address] [place] [address] [phone] * ECG 12 lead (01/28/2025 2:08 PM EDT) Narrative Alena Myers MD - 01/28/2025 2:08 PM EDT A.fib at approx 72bpm ventricular response. Occasional PVC. Unspecific repolarization abn us Alena Myers MD ECG ORDERABLES Final Re sult * Hemoglobin A1c (01/16/2025 11:31 AM EDT) Hemoglobin A1c 5.0 <6.0 % [facility] Comment:Hemoglobin A1C Refer ence Range Adults: 4.8 - 6.0 % Non diabetic: < 6.0 % Goal: < 7.0 %Additional Action Suggested: > 8.0 %Note: Hemoglobin A1c results are invalid for patients with abnormal amounts of HbF. Blood transfusions may impact the HbA1c concentration in the patient sample. Estimated Average Glucose 97 mg/dL [facility] Comment:eAG = Estimated ave rage glucose which is %A1C expressed asaverage glucose, using the formula of the H8B-DqizkneArlacpe Glucose study (ADAG), Diabetes Care, Vol.31,#8,Mar. 2007 Blood Venous blood specimen / Unknown 01/16/2025 11:31 AM EDT 01/16/2025 1:21 PM EDT us Sheila Rockwell MD LAB BLOOD ORDERABLES Final Res ult [facility] [address] [place] [phone] * (ABNORMAL) Lipid Panel, Standard (01/16/2025 11:31 AM EDT) Triglycerides 69 <150 mg/dL [facility] Comment:Desirable Triglyceri de: less than 150 mg/dLBorderline High Triglyceride 150-199 mg/dLHigh Triglyceride: 200-499 mg/dLVery High Triglyceride: greater than or equal to 5OO mg/dL Cholesterol 129 <200 mg/dL [facility] Comment:Desirable Cholestero l: less than 200 mg/dLBorderline High Cholesterol: 200-239 mg/dLHigh Cholesterol: greater than 239 mg/dL LDL Cholesterol Calculated 78 <100 mg/dL [facility] Comment:Desirable LDL: less than 100 mg/dLNear Optimal/Above Optimal LDL: 110- 129 mg/dLBorderline High LDL: 130-159 mg/dLHigh LDL: 160-189 mg/dLVery High LDL: greater than or equal to 190 mg/dL HDL Cholesterol 38(L) >40 mg/dL [facility] Comment:Desirable HDL: great er than 40 mg/dL Note: This HDL assay may give artificially low results in patients with liver disease. Blood Venous blood specimen / Unknown 01/16/2025 11:31 AM EDT 01/16/2025 1:21 PM EDT us Sheila Rockwell MD LAB BLOOD ORDERABLES Final Res ult [facility] [address] [place] [address] [phone] from Last 3 Months or Most Recently Relevant to Health Maintenance Insurance [facility] [employer] [facility] DETENTION OPTIONS (HMO D-SNP) Advance Directives Documents on File Type Date Recorded Patient Jewel Stripper Expl anation Advance Directives and Livin g Will 01/21/2025 12:01 PM [facility] Care Teams Piano Regulator Relationship Specialty Start Date End Date Cynthia Marshall NP [address] [place] [phone] PCP - General Family Medicine 09/10/23 [facility]
== END 2025-04-27 12:47 | disposition home or self-care (01) ==
LOC: HO.HVNA 12:46
PROVIDERS: Visit Provider Student in an Organized Health Care Education/Training Program
DX: I13.0 Hypertensive heart and chronic kidney disease with heart failure and stage 1 through stage 4 chronic kidney disease, or unspecified chronic kidney disease (principal)
CPT/HCPCS: 36415; 80048

== ENCOUNTER 2025-05-03 21:44 | Inpatient (IN) | payer OTHER, SELFPAY ==
--- NOTE | 2025-05-03 | ECG_ITS ---
Test Reason : CHEST PAIN Blood Pressure : */* mmHG Vent. Rate : 69 BPM Atrial Rate : * BPM P-R Int : * ms QRS Dur : 92 ms QT Int : 432 ms P-R-T Axes : * 14 201 degrees QTcB Int : [address] & T wave abnormality, consider inferolateral ischemia Abnormal ECG When compared with ECG of 14-Apr-2025 08:41, No significant change was found Referred By: Generic ED Physician Electronically Signed By: Ash Pedersen
--- NOTE | ~2025-05-03 | XR_ITS ---
EXAMINATION: XR CHEST CLINICAL INFORMATION: S/P thoracentesis COMPARISON: May 03, 2025 TECHNIQUE: Frontal view of the chest was obtained. FINDINGS: Persistent right basilar pleural effusion with compressive atelectasis is again identified it appears smaller than the prior but remains moderately sized. No pneumothorax is identified. No other abnormality seen. XR/XR chest 1V IMPRESSION: Moderate right pleural effusion has decreased in size since the prior. There is no pneumothorax. Electronically signed by: Darci Thornton MD 05/05/2025 10:13 AM EDT
--- NOTE | ~2025-05-03 | XR_ITS ---
CLINICAL HISTORY: sob 1 view chest x-ray Comparison: Chest x-ray most recently on 04/17/2025, chest CT on 04/12/2025 Findings: Persistent right basilar density. Lungs are otherwise clear. No pneumothorax. Heart is enlarged. Soft tissues and visualized bony structures are unremarkable. Impression: 1. Persistent right basilar density favored to represent combination of pleural effusion and atelectasis however superimposed infection would be difficult to exclude. 2. Additional findings as above. This document has been electronically signed by: Jose Manuel Hermosillo MD on 05/03/2025 23:28:08
--- NOTE | ~2025-05-03 | US_ITS ---
EXAMINATION: ULTRASOUND-GUIDED THORACENTESIS CLINICAL INFORMATION: Hypoxia respiratory failure. Right pleural effusion. COMPARISON: Chest x-ray 05/03/2025. TECHNIQUE: Following explaining ultrasound-guided right thoracentesis procedure, benefits and risk, a written consent was obtained. Patient was placed upright sitting on a stretcher and pulmonary ultrasound imaging obtained through the right posterior chest. An optimal site was selected along the inferior scapular line approximately 10th interspace and marked. The marked area was cleaned and draped in usual sterile manner. 1% lidocaine was injected puncture site. Through a small skin incision a 4 Irish Yueh catheter was advanced from the skin into the right pleural space. After observing fluid return, stylet was withdrawn and catheter connected to vacuum bottle via connecting cannula. After obtaining all fluid and observing patient had cough and difficulty breathing, catheter was withdrawn and complete hemostasis achieved at puncture site. Sterile Tegaderm dressing applied at puncture site. Patient tolerated procedure extremely well. Patient was monitored by nursing. A chest x-ray was to obtained subsequently. FINDINGS: On preliminary ultrasound imaging there is moderate right pleural effusion with collapse right lower lobe. Approximately 1.1 L of fluid was drained from the right pleural space. Obtained fluid oral was left in patient's room if diagnostic evaluation was needed. US/US thoracentesis IMPRESSION: Successful ultrasound-guided right thoracentesis performed with 1.1 L of fluid was drained. The exam was terminated as patient had pain and significant bouts of cough. Electronically signed by: Cedric Han MD 05/05/2025 10:27 AM EDT
[2025-05-03 21:49] VITALS: BP 182/83; PULSE 52; O2SAT 99
[2025-05-03 22:05] LABS: MANUAL DIFF FLAG NO
[2025-05-03 22:10] LABS: Hematocrit 27.5 % (42.0-52.0); Hemoglobin 8.0 g/dl (14.0-18.0); Imm Gran Abs Auto 0.02 X10*3/uL (0.00-0.03); Imm Gran Pct Auto 0.4 % (0.0-0.4); Lymphocytes Absolute Auto 0.6 X10*3/uL (1.2-4.9); Mean Corpuscular HGB Conc 29.1 g/dl (31.0-36.0); Mean Corpuscular Hemoglobin 25.1 pg (27.0-33.0); Mean Corpuscular Volume 86.2 fL (80.0-98.0); NRBC Abs Auto 0.000 X10*3/uL (0.0-0.012); NRBC Pct Auto 0.0 /100WBC (0.0-0.2); Platelet Count 180 X10*3/uL (160-400); Red Blood Count 3.19 X10*6/uL (4.60-5.80); White Blood Count 5.2 X10*3/uL (4.8-10.8)
[2025-05-03 22:15] VITALS: BP 134/67; PULSE 72; RESP 20; TEMP 36.4; O2SAT 97; BMI 31.2
[2025-05-03 22:34] LABS: Alanine Aminotransferase 30 U/L (0-40); Albumin Level 3.3 g/dL (3.5-5.0); Alkaline Phosphatase 143 U/L (39-117); Anion Gap 16 (12-20); Aspartate Amino Transferase 45 U/L (5-37); Blood Urea Nitrogen 93 mg/dL (9-16); Calcium 8.5 mg/dL (8.4-10.2); Carbon Dioxide 20 mmol/L (22-29); Chloride 107 mmol/L (96-108); Creatinine Clr Calc Pharmacy 25.3; Estimated Glomerular Filt Rate 21; Potassium 5.3 mmol/L (3.3-5.1); Sodium 138 mmol/L (135-145); Total Protein 7.7 g/dL (6.5-8.0)
--- OUTSIDE RECORDS SUMMARY | 2025-05-03 22:34 | XMS_ITS | Encounter Summary ---
Author Organization [facility] Address [address] [place] [address] Phone Care Team Providers Care Environmental Manager Name Role Phone Arielle Godinez Primary Care Provider Unavailabl e Encounter Details Date Type Department Care Team (Late st Contact Info) Description 01/03/2024 Office Communication [facility] [address] [place] [address] Soy Meléndez MD [address] [facility] [address] [place] [address] Social History Tobacco Use Types [...] on filedocumented in this encounter Care Teams Environmental Manager Relationship Specialty Start Date End Date Arielle Godinez PCP - General Family Medicine 08/10/21 documented as of this encounter
--- OUTSIDE RECORDS SUMMARY | 2025-05-03 22:34 | XMS_ITS | Encounter Summary ---
Author Organization [employer] Address [address] [place] [address] Care Team Providers Care Sap Business Analyst Name Role Phone Jarad Lundy MD Primary Care Provider Encounter Details Date Type Department Care Team (Latest Contact Info) Description 12/19/2024 Lab Requisition [facility] - Main Lab [address] [place] [address] Jarad Lundy MD [address] [place] [phone] Type 2 diabetes mellitus without complications ([facility] V24, [facility] V28) Social History Tobacco Use Types [...] Type 2 diabetes mellitus without complications ([facility]/HCC V24, [facility] V28) HEMOGLOBIN A1C Routine 12/19/2024 4:48 AM EDT Type 2 diabetes mellitus without complications ([facility] V24, [facility] V28) COMPREHENSIVE METABOLIC PANEL Routine 12/19/2024 4:48 AM EDT Type 2 diabetes mellitus without complications ([facility] V24, [facility] V28) documented in this encounter Results * Hemoglobin A1c (12/19/2024 4:48 AM EDT) Pathologist [facility] Hemoglobin A1C 5.7 <6.5 % LAB CHEMISTRY METHOD 12/19/2024 11:02 AM T [facility] Mean Bld Glu Estim. 117 mg/dL LAB CHEMISTRY METHOD 12/19/2024 11:02 AM [facility] Blood Venous blood specimen / Unknown Venipuncture / Unknown 12/19/2024 4:48 AM EDT 12/19/2024 7:19 AM EDT us Jarad Lundy MD LAB BLOOD ORDERABLES Final Resu lt [facility] [address] [place] [address], * (ABNORMAL) Comprehensive metabolic panel (12/19/2024 4:48 AM EDT) [facility] Sodium 141 133 - 145 mmol/L LAB CHEMISTRY METHOD 12/19/2024 8:20 AM [facility] Potassium 3.3(L) 3.5 - 5.5 mmol/L LAB CHEMISTRY METHOD 12/19/2024 8:20 AM [facility] Chloride 106 96 - 110 mmol/L LAB CHEMISTRY METHOD 12/19/2024 8:20 AM [facility] CO2 26 21 - 32 mmol/L LAB CHEMISTRY METHOD 12/19/2024 8:20 AM [facility] Anion Gap 9 3 - 11 LAB CHEMISTRY METHOD 12/19/2024 8:20 AM [facility] Glucose 74 70 - 100 mg/dL LAB CHEMISTRY METHOD 12/19/2024 8:20 AM [facility] BUN 26(H) 5 - 25 mg/dL LAB CHEMISTRY METHOD 12/19/2024 8:20 AM [facility] Creatinine 1.68(H) 0.70 - 1.30 mg/dL LAB CHEMISTRY METHOD 12/19/2024 8:20 AM [facility] eGFR 43(L) >=60 mL/min/1. 73m2 LAB CHEMISTRY METHOD 12/19/2024 8:20 AM [facility] Comment:Calculation based on the Chronic Kidney Disease Epidemiology Collaboration (CKD-EPI) equation refit without adjustment for race. BUN/Creatinine Ratio 15.5 LAB CHEMISTRY METHOD 12/19/2024 8:20 AM [facility] Calcium 8.1(L) 8.5 - 10.5 mg/dL LAB CHEMISTRY METHOD 12/19/2024 8:20 AM [facility] AST (SGOT) 20 10 - 42 unit/L LAB CHEMISTRY METHOD 12/19/2024 8:20 AM [facility] ALT (SGPT) 18 10 - 60 unit/L LAB CHEMISTRY METHOD 12/19/2024 8:20 AM [facility] Alkaline Phosphatase 210(H) 42 - 121 unit/L LAB CHEMISTRY METHOD 12/19/2024 8:20 AM [facility] Total Protein 5.3(L) 6.0 - 8.0 g/dL LAB CHEMISTRY METHOD 12/19/2024 8:20 AM [facility] Albumin 2.0(L) 3.2 - 5.0 g/dL LAB CHEMISTRY METHOD 12/19/2024 8:20 AM [facility] Total Bilirubin 0.6 0.0 - 1.4 mg/dL LAB CHEMISTRY METHOD 12/19/2024 8:20 AM [facility] Blood Venous blood specimen / Unknown Venipuncture / Unknown 12/19/2024 4:48 AM EDT 12/19/2024 7:19 AM EDT us Jarad Lundy MD LAB BLOOD ORDERABLES Final Resu lt [facility] [address] [place] [address], * (ABNORMAL) Complete blood count (12/19/2024 4:48 AM EDT) [facility] Signature WBC 9.1 4.8 - 10.8 K/mcL LAB HEMETOLOGY METHOD 12/19/2024 7:52 AM EDT [facility] RBC 3.60(L) 4.50 - 5.50 M/mcL LAB HEMETOLOGY METHOD 12/19/2024 7:52 AM EDT [facility] Hemoglobin 10.3(L) 13.5 - 17.5 g/dL LAB HEMETOLOGY METHOD 12/19/2024 7:52 AM EDT [facility] Hematocrit 31.6(L) 42.0 - 54.0 % LAB HEMETOLOGY METHOD 12/19/2024 7:52 AM EDT [facility] MCV 88.8 79.0 - 98.0 FL LAB HEMETOLOGY METHOD 12/19/2024 7:52 AM EDT [facility] MCH 28.9 27.0 - 32.0 pcg LAB HEMETOLOGY METHOD 12/19/2024 7:[facility] MCHC 32.6 32.0 - 37.0 g/dL LAB HEMETOLOGY METHOD 12/19/2024 7:52 AM EDT [facility] RDW 16.2(H) 11.0 - 15.0 % LAB HEMETOLOGY METHOD 12/19/2024 7:52 AM EDT [facility] Platelets 308 130 - 400 K/mcL LAB HEMETOLOGY METHOD 12/19/2024 7:52 [facility] MPV 9.1 7.0 - 11.0 FL LAB HEMETOLOGY METHOD 12/19/2024 7:52 AM EDT [facility] NRBC 0.0 <1.0 % LAB HEMETOLOGY METHOD 12/19/2024 7:52 AM EDT [facility] NRBC Absolute 0.00 <0.10 K/mcL LAB HEMETOLOGY METHOD 12/19/2024 7:52 AM EDT [facility] Blood Venous blood specimen / Unknown Venipuncture / Unknown 12/19/2024 4:48 AM EDT 12/19/2024 7:19 AM EDT us Jarad Lundy MD LAB BLOOD ORDERABLES Final Resu lt [facility] [address] [place] [address], [place] [phone] documented in this encounter Visit Diagnoses Diagnosis Type 2 diabetes mellitus without complications (CMS/HCC V24, CMS/HCC V28) documented in this encounter Care Teams Sap Business Analyst Relationship Specialty Start Date End Date Jarad Lundy MD [address] [place] [phone] PCP - General Hospitalist Medicine 12/17/24 documented as of this encounter
--- OUTSIDE RECORDS SUMMARY | 2025-05-03 22:34 | XMS_ITS | Clinical Summary ---
Author Organization [facility] Address [address] [place] [phone] Phone Care Team Providers Care Microeconomics Professor Name Role Phone Blanca Crowley MD Primary Care Pro vider Encounters Date Type Department Care Team Description 04/18/2025 Orders Only [facility] [address] [place] [address] Homehealth, Interface ProviderMD from Last 3 Months Social History Tobacco Use Types Packs/Day Years Used Date Smoking Tobacco: Never Assessed Education Answer Date Recorded Are you interested in more education? Not on liz e 04/18/2025 Are you concerned about learning? Not on file 04/18/2025 No 04/18/2025 No 04/18/2025 Digital Access Answer Date Recorded No 04/18/2025 No 04/18/2025 Reliable internet access at home? Not on file 04/18/2025 Device with a working camera? Not on file Sex and Gender Information Value Date Recorded Sex Assigned at Not on file Legal Sex Male 2:09 PM EDT Gender Identity Not on file Sexual Orientation Not on file Plan of Treatment Not on file Medical Devices Not on file Insurance [place] [address] [address] DUAL MEDICARE REPLACEMENT MEDICARE PART A & B [facility] MEDICARE REPLACEMENT [facility] DUAL MEDICARE REPLACEMENT MEDICARE PART A & B [facility] MEDIC[facility] REPLACEMENT [facility] DUAL MEDICARE REPLACEMENT MEDICARE PART A & [facility] DUAL MEDICARE REPLACEMENT MEDICARE PART A & B [facility] MEDIC[facility] REPLACEMENT [facility] DUAL MEDICARE REPLACEMENT MEDICARE PART A & [facility]AC[facility] DUAL MEDICARE REPLACEMENT MEDICARE PART A & B [facility] MEDIC[facility] REPLACEMENT Care Teams Microeconomics Professor Relationship Specialty Start Date End Date Blanca Crowley MD [address] [place] [phone] PCP - General Internal Medicine 04/18/25 Additional Source Comments The information contained in this document represents components of the legal health record. It is not the complete legal health record.[facility]
--- OUTSIDE RECORDS SUMMARY | 2025-05-03 22:34 | XMS_ITS | Encounter Summary ---
Author Organization [employer] Address [address] [place] [address] Care Team Providers Care Sustainable Landscape Architect Name Role Phone Cynthia Marshall NP Primary Care Provider [phone] Reason for Visit * Reason Comments Med Refill Encounter Details Date Type Department Care Team ([facility] st Contact Info) Description 02/07/2025 Refill [facility] [address] [place] [address] Cynthia Marshall NP [address] [place] [address] Social History Tobacco Use Types Packs/Day Years [...] Description 05/06/2025 9:45 AM EDT Office Visit [facility] [address] [place] [address] Cynthia Marshall NP [address] [place] [address] documented as of this encounter Visit Diagnoses Not on filedocumented in this encounter Additional Health Concerns Assessment Noted Time PHQ-9 Depression Total Score: 3 01/22/20 10:47 AM EDT documented as of this encounter Care Teams Sustainable Landscape Architect Relationship Specialty Start Date End Date Cynthia Marshall NP [address] [place] [address] PCP - General Family Medicine 09/10/23 [facility] 01/01/25 04/27/25 [facility] 04/21/25 documented as of this encounter
--- OUTSIDE RECORDS SUMMARY | 2025-05-03 22:34 | XMS_ITS | Encounter Summary ---
Author Organization [employer] Address [address] [facility] [address]t [place] [address] Care Team Providers Care Practice Manager Name Role Phone Cynthia Marshall NP Primary Care Provider [phone] Reason for Visit * Reason Onset Date Comments FYI 02/06/2025 Encounter Details Date Type Department Care Team ([facility] st Contact Info) Description 02/06/2025 Telephone [facility] [address] [place], [place] [phone] Cynthia Marshall NP [address] [place], [place] [phone] FYI Social History Tobacco Use Types Packs/Day [...] your housing situation today? I have raya simspon 01/21/[address] you li [...] - 02/06/2025 1:16 PM EDT Tc from [place] with [facility] calling to report heart rate of 54, not symptomatic. documented in this encounter Plan of Treatment Upcoming Encounters Date Type Department Care Team (Late st Contact Info) Description 05/06/2025 9:45 AM EDT Office Visit [facility] [address] [place] [address] Cynthia Marshall NP [address] [place] [address] documented as of this encounter Visit Diagnoses Not on filedocumented in this encounter Additional Health Concerns Assessment Noted Time PHQ-9 Depression Total Score: 3 01/22/20 25 10:47 AM EDT documented as of this encounter Care Teams Practice Manager Relationship Specialty Start Date End Date Cynthia Marshall NP [address] [place] [address] PCP - General Family Medicine 09/10/23 [facility] 01/01/25 04/27/25 [facility] 04/21/25 documented as of this encounter
--- OUTSIDE RECORDS SUMMARY | 2025-05-03 22:34 | XMS_ITS | Encounter Summary ---
Author Organization [employer] Address [address] [facility] [address]t [place] [address] Care Team Providers Care Interviewing Clerk Name Role Phone Cynthia Marshall NP Primary Care Provider [phone] Reason for Visit * Reason Onset Date Comments Returning Call 01/12/2025 Encounter Details Date Type Department Care Team ([facility] st Contact Info) Description 01/12/2025 Telephone [facility] MED[facility]INE [address] [place], [place] [phone] Cynthia Marshall NP [address] [place], [place] [phone] Returning Call Social History Tobacco Use Types [...] [facility] [address] [place] [address] Cynthia Marshall NP [address] [place] [address] documented as of this encounter Visit Diagnoses Not on filedocumented in this encounter Additional Health Concerns Assessment Noted Time PHQ-9 Depression Total Score: 0 01/21/20 24 11:17 AM EDT documented as of this encounter Care Teams Interviewing Clerk Relationship Specialty Start Date End Date Cynthia Marshall NP [address] [place] [address] PCP - General Family Medicine 09/10/23 [facility] 01/01/25 04/27/25 [facility] 04/21/25 documented as of this encounter
--- OUTSIDE RECORDS SUMMARY | 2025-05-03 22:34 | XMS_ITS | Encounter Summary ---
Author Organization [employer] Address [address] [facility] 7t [place] [address] Care Team Providers Care Porcelain Enamel Laborer Name Role Phone Cynthia Marshall NP Primary Care Provider Reason for Visit * Reason Comments Med Refill Encounter Details Date Type Department Care Team ([facility] st Contact Info) Description 11/04/2023 Refill [facility] [address] [place] [address] Blanca Crowley MD [address] [place] [address] Social History Tobacco Use Types Packs/Day Years [...] 9:45 AM EDT Office Visit [facility] [address] [place] [address] Cynthia Marshall NP [address] [place] [address] documented as of this encounter Visit Diagnoses Not on filedocumented in this encounter Additional Health Concerns Assessment Noted Time PHQ-9 Depression Total Score: 0 01/11/20 23 9:39 AM EDT documented as of this encounter Care Teams Porcelain Enamel Laborer Relationship Specialty Start Date End Date Cynthia Marshall NP [address] [place] [address] PCP - General Family Medicine 09/10/23 [facility] 01/01/25 04/27/25 [facility] 04/21/25 documented as of this encounter
--- OUTSIDE RECORDS SUMMARY | 2025-05-03 22:34 | XMS_ITS | Clinical Summary ---
Author Organization [facility] Facility Address [address] [place] [address] Care Team Providers Care Cinder Snapper Name Role Phone Arielle Godinez Primary Care Provider Unavailabl e Allergies No known active allergies Medications Lancets (OneTouch Delica Plus [id number]) [facility] TEST BLOOD SUGAR [...] (01/04/2024): Last Assessment & Plan: Lesion right nondenominational suspicious for [place], referral to derm Chronic [...] Exam 10/17/2021 Diabetes: Visual Foot Exam 10/17/2021 Influenza Vaccine (#1) 2025 , 08/01/2021, 06/09/2013, Additional history exists Diabetes: Hemoglobin A1C 04/18/2025 025, 12/19/2024, 10/08/2023 Pneumococcal Vaccine: 50+ Years Completed 05/24/2022, 09/30/2019, 06/22/2014 Hepatitis B Vaccine Aged Out 06/28/2022, 2 No longer eligible based on patient's age to complete this topic Insurance [place] Member Subscriber Plan / Payer (Ef fective 2023-Present) Name:Ethan Bro Relation to Subscriber:Self Name:Ethan Bro Payer ID:Not on file Group ID:Not on file Type:Not on file Address: [facility] [id number] [place] [id number] [place], [place] [id number] Medicaid [place] [facility] ([id number]) Care Teams Cinder Snapper Relationship Specialty Start Date End Date Arielle Godinez PCP - General Family Medicine 08/10/21
--- OUTSIDE RECORDS SUMMARY | 2025-05-03 22:34 | XMS_ITS | Encounter Summary ---
Author Organization [employer] Address [address] 7t [place] [address] Care Team Providers Care Roadway Technician Name Role Phone Cynthia Marshall NP Primary Care Provider [phone] Encounter Details Date Type Department Care Team ([facility] st Contact Info) Description 09/26/2024 Orders Only [facility] MEDICINE [address] [place], [place] [phone] Cynthia Marshall NP [address] [place] [address] Stage 3b chronic kidney disease (CMS/HCC) Social [...] Description 05/06/2025 9:45 AM EDT Office Visit [facility] MED[facility] [address] [place] [address] Cynthia Marshall NP [address] [place] [address] documented as of this encounter Visit Diagnoses Diagnosis Stage 3b chronic kidney disease (CMS/HCC) documented in this encounter Additional Health Concerns Assessment Noted Time PHQ-9 Depression Total Score: 0 01/21/20 24 11:17 AM EDT documented as of this encounter Care Teams Roadway Technician Relationship Specialty Start Date End Date Cynthia Marshall NP [address] [place] [address] PCP - General Family Medicine 09/10/23 [facility] 01/01/25 04/27/25 [facility] 04/21/25 documented as of this encounter
--- OUTSIDE RECORDS SUMMARY | 2025-05-03 22:34 | XMS_ITS | Encounter Summary ---
Author Organization [employer] Address [address] [facility] 7t [place] [address] Care Team Providers Care Hand Mold Maker Name Role Phone Cynthia Marshall NP Primary Care Provider Reason for Visit * Reason Onset Date Comments Hospital Follow-up 04/21/2025 Encounter Details Date Type Department Care Team ([facility] st Contact Info) Description 04/21/2025 Telephone [facility] MEDICINE [address] [place] [address] Cynthia Marshall NP [address] [place] [address] Hospital Follow-up Social History Tobacco Use Types [...] Miscellaneous Notes * Telephone Encounter - Franchesca iTmmons - 04/21/2025 10:38 AM EDT Tc from pt requesting a HDF appt. Hospital: [facility] Date of admission: 04/12 Discharge date: 04/18 Diagnosed: heart failure and pneumonia *Send message to [place] Clinical Care Coordinators Contact Jalyn at [facility] [phone] documented in this encounter Plan of Treatment Upcoming Encounters Date Type Department Care Team (Late st Contact Info) Description 05/06/2025 9:45 AM EDT Office Visit [facility] MEDICINE [address] [place] [address] Cynthia Marshall NP [address] [place] [address] documented as of this encounter Visit Diagnoses Not on filedocumented in this encounter Additional Health Concerns Assessment Noted Time PHQ-9 Depression Total Score: 3 01/22/20 25 10:47 AM EDT documented as of this encounter Care Teams Hand Mold Maker Relationship Specialty Start Date End Date Cynthia Marshall NP [address] [place] [address] PCP - General Family Medicine 09/10/23 [facility] 01/01/25 04/27/25 [facility] 04/21/25 documented as of this encounter
--- OUTSIDE RECORDS SUMMARY | 2025-05-03 22:34 | XMS_ITS | Encounter Summary ---
Author Organization [employer] Address [address] [place] [address] Care Team Providers Care Knitting Machine Operator Helper Name Role Phone Jarad Lundy MD Primary Care Provider [phone] Encounter Details Date Type Department Care Team (Late st Contact Info) Description 12/17/[address] [facility] [address] [facility] [place] [address] Jarad Lundy MD [address] [place] [phone] Anemia, unspecified; Chronic kidney disease, stage 3a [...] K/mcL LAB HEMETOLOGY METHOD 12/17/2024 9:04 AM [facility] RBC 3.60(L) 4.50 - 5.50 M/mcL LAB HEMETOLOGY METHOD 12/17/2024 9:04 AM [facility] Hemoglobin 10.7(L) 13.5 - 17.5 g/dL LAB HEMETOLOGY METHOD 12/17/2024 9:04 AM [facility] Hematocrit 32.4(L) 42.0 - 54.0 % LAB HEMETOLOGY METHOD 12/17/2024 9:04 AM [facility] MCV 90.0 79.0 - 98.0 FL LAB HEMETOLOGY METHOD 12/17/2024 9:04 AM [facility] MCH 29.7 27.0 - 32.0 pcg LAB HEMETOLOGY METHOD 12/17/2024 9:04 AM [facility] MCHC 33.0 32.0 - 37.0 g/dL LAB HEMETOLOGY METHOD 12/17/2024 9:04 AM [facility] RDW 16.6(H) 11.0 - 15.0 % LAB HEMETOLOGY METHOD 12/17/2024 9:04 AM [facility] Platelets 335 130 - 400 K/mcL LAB HEMETOLOGY METHOD 12/17/2024 9:04 AM [facility] MPV 9.1 7.0 - 11.0 FL LAB HEMETOLOGY METHOD 12/17/2024 9:04 AM [facility] NRBC 0.0 <1.0 % LAB HEMETOLOGY METHOD 12/17/2024 9:04 AM [facility] NRBC Absolute 0.00 <0.10 K/mcL LAB HEMETOLOGY METHOD 12/17/2024 9:04 AM [facility] Neutrophils Relative 76.7 % LAB HEMETOLOGY METHOD 12/17/2024 9:04 AM [facility] Lymphocytes Relative 16.2 % LAB HEMETOLOGY METHOD 12/17/2024 9:04 AM [facility] Monocytes Relative 5.4 % LAB HEMETOLOGY METHOD 12/17/2024 9:04 AM [facility] Eosinophils Relative 0.8 % LAB HEMETOLOGY METHOD 12/17/2024 9:04 AM [facility] Basophils Relative 0.2 % LAB HEMETOLOGY METHOD 12/17/2024 9:04 AM [facility] Immature Granulocytes Relative 0.7 % LAB HEMETOLOGY METHOD 12/17/2024 9:04 AM [facility] Neutrophils Absolute 8.40(H) 1.50 - 7.00 K/mcL LAB HEMETOLOGY METHOD 12/17/2024 9:04 AM [facility] Lymphocytes Absolute 1.78 1.00 - 5.00 K/mcL LAB HEMETOLOGY METHOD 12/17/2024 9:04 AM [facility] Monocytes Absolute 0.59 0.20 - 1.00 K/mcL LAB HEMETOLOGY METHOD 12/17/2024 9:04 AM [facility] Eosinophils Absolute 0.09 0.00 - 0.50 K/mcL LAB HEMETOLOGY METHOD 12/17/2024 9:04 AM [facility] Basophils Absolute 0.02 0.00 - 0.20 K/mcL LAB HEMETOLOGY METHOD 12/17/2024 9:04 AM [facility] Immature Granulocytes Absolute 0.08(H) 0.00 - 0.03 K/mcL LAB HEMETOLOGY METHOD 12/17/2024 9:04 AM [facility] Blood Venous blood specimen / Unknown Venipuncture / Unknown 12/17/2024 4:55 AM EDT 12/17/2024 8:39 AM EDT us Jarad Lundy MD LAB BLOOD ORDERABLES Final Resu lt [facility] [address] [place] [address], [place] [phone] * (ABNORMAL) Basic metabolic panel (12/17/2024 4:55 AM EDT) Sodium 141 133 - 145 mmol/L LAB CHEMISTRY METHOD 12/17/2024 9:22 AM [facility] Potassium 3.5 3.5 - 5.5 mmol/L LAB CHEMISTRY METHOD 12/17/2024 9:22 AM [facility] Chloride 107 96 - 110 mmol/L LAB CHEMISTRY METHOD 12/17/2024 9:22 AM [facility] CO2 27 21 - 32 mmol/L LAB CHEMISTRY METHOD 12/17/2024 9:22 AM [facility] Anion Gap 7 3 - 11 LAB CHEMISTRY METHOD 12/17/2024 9:22 AM [facility] Glucose 61(L) 70 - 100 mg/dL LAB CHEMISTRY METHOD 12/17/2024 9:22 AM [facility] BUN 26(H) 5 - 25 mg/dL LAB CHEMISTRY METHOD 12/17/2024 9:22 AM [facility] Creatinine 1.61(H) 0.70 - 1.30 mg/dL LAB CHEMISTRY METHOD 12/17/2024 9:22 AM [facility] eGFR 45(L) >=60 mL/min/1. 73m2 LAB CHEMISTRY METHOD 12/17/2024 9:22 AM EDT [facility] Comment:Calculation based on the Chronic Kidney Disease Epidemiology Collaboration (CKD-EPI) equation refit without adjustment for race. BUN/Creatinine Ratio 16.1 LAB CHEMISTRY METHOD 12/17/2024 9:22 AM EDT [facility] Calcium 8.2(L) 8.5 - 10.5 mg/dL LAB CHEMISTRY METHOD 12/17/2024 9:22 AM EDT [facility] Blood Venous blood specimen / Unknown Venipuncture / Unknown 12/17/2024 4:55 AM EDT 12/17/2024 8:39 AM EDT us Jarad Lundy MD LAB BLOOD ORDERABLES Final Resu lt [facility] [address] [place] [address], documented in this encounter Visit Diagnoses Diagnosis Anemia, unspecified Chronic kidney disease, stage 3a (CMS/HCC V24, CMS/HCC V28) documented in this encounter Care Teams Knitting Machine Operator Helper Relationship Specialty Start Date End Date Jarad Lundy MD [address] [place] [phone] PCP - General Hospitalist Medicine 12/17/24 documented as of this encounter
--- OUTSIDE RECORDS SUMMARY | 2025-05-03 22:34 | XMS_ITS | Encounter Summary ---
Author Organization [employer] Address [address] [facility] 7t [place] [address] Care Team Providers Care Hydrologic Modeler Name Role Phone Cynthia Marshall NP Primary Care Provider Encounter Details Date Type Department Care Team (Late st Contact Info) Description 02/02/2025 Orders Only [facility] MEDICINE [address] [place] [address] Severino Santoro, PharmD [address] [place] [address] Social History Tobacco Use Types Packs/Day Years [...] Description 05/06/2025 9:45 AM EDT Office Visit [facility] MEDICINE [address] [place] [address] Cynthia Marshall NP [address] [place] [address] documented as of this encounter Visit Diagnoses Not on filedocumented in this encounter Additional Health Concerns Assessment Noted Time PHQ-9 Depression Total Score: 3 01/22/20 25 10:47 AM EDT documented as of this encounter Care Teams Hydrologic Modeler Relationship Specialty Start Date End Date Cynthia Marshall NP [address] [place] [address] PCP - General Family Medicine 09/10/23 [facility] 01/01/25 04/27/25 [facility] 04/21/25 documented as of this encounter
--- OUTSIDE RECORDS SUMMARY | 2025-05-03 22:34 | XMS_ITS | Encounter Summary ---
Author Organization [employer] [facility] Address [address] [place] [address] 7t [place] [address] Care Team Providers Care Joiner Helper Name Role Phone Virginia Perez Primary Care Provider Iveth Blanca Ferraro MD Primary Care Pro vider Cynthia Marshall NP Primary Care Provider [phone] Encounter Details Date Type Department Care Team (Latest Contact Info) Description 03/31/[address] [facility] CONVERSIONS Dental, Provider, DDS Social History [...] Description 05/06/2025 9:45 AM EDT Office Visit [facility] MEDICINE [address] [place] [address] Cynthia Marshall, MARLENE [address] [place] [address] documented as of this encounter Visit Diagnoses Not on filedocumented in this encounter Care Teams Joiner Helper Relationship Specialty Start Date End Date Virginia Perez FNP PCP - General Family Medicine 04/28/22 03/28/23 Blanca Crowley MD [address] [place] [address] PCP - General Internal Medicine 03/29/23 09/09/23 Cynthia Marshall NP [address] [facility] [place] [address] PCP - General Family Medicine 09/10/23 [facility] 01/01/25 04/27/25 Luis [facility] 04/21/25 documented as of this encounter
--- OUTSIDE RECORDS SUMMARY | 2025-05-03 22:34 | XMS_ITS | Clinical Summary ---
Author Organization [address] Address [address] [place] [address] Phone Care Team Providers Care Land Leasing Examiner Name Role Phone Jarad Lundy MD Primary Care Provider [phone] Surgical History Surgery Date Site/Laterality Comments SHOULDER SURGERY 06/18/07 PROCEDURE: HISTORICAL SHOULDER SURGERY; COMMENT: Rotator cuff- Dr. Adis King APPENDECTOMY PROCEDURE: HISTORICAL APPENDECTOMY COLONOSCOPY 12/28/2011 PROCEDURE: HISTORICAL COLONOSCOPY; COMMENT: normal UPPER GASTROINTESTINAL ENDOSCOPY 03/14/2016 PROCEDURE: WI UPPER GI ENDOSCOPY PERFORMED; COMMENT: Visually normal; duodenal biopsies: Minimal nonspecific inflammation Medical History Medical History Date Comments Unspecified essential hypertension DX:Unspecified essential hypertension Basilar artery aneurysm ([facility] V24) 10/07/2013 DX:Basilar artery aneurysm ([facility]) Type 2 diabetes, diet contro lled ([facility] V24, [facility] V28) 10/07/2013 DX:Type 2 diabetes, diet co ntrolled ([facility]) Type 2 diabetes, diet contro lled ([facility] V24, [facility] V28) 10/07/2013 DX:Type 2 diabetes, diet co ntrolled ([facility]) Controlled type 2 diabetes w ith renal [...] EDT Type 2 diabetes mellitus without complications ([facility] V24, [facility] V28) HEMOGLOBIN A1C Routine 12/19/2024 4:48 AM EDT Type 2 diabetes mellitus without complications ([facility] V24, [facility] V28) from Last 3 Months or Most Recently Relevant to Health Maintenance Results * Hemoglobin A1c (12/19/2024 4:48 AM EDT) Hemoglobin A1C 5.7 <6.5 % LAB CHEMISTRY METHOD 12/19/2024 11:02 AM EDT [facility] Mean Bld Glu Estim. 117 mg/dL LAB CHEMISTRY METHOD 12/19/2024 11:02 AM EDT [facility] Blood Venous blood specimen / Unknown Venipuncture / Unknown 12/19/2024 4:48 AM EDT 12/19/2024 7:19 AM EDT us Jarad Lundy MD LAB BLOOD ORDERABLES Final Resu lt [facility] [address] [place] [address], [place] [phone] * (ABNORMAL) Comprehensive metabolic panel (12/19/2024 4:48 AM EDT) Sodium 141 133 - 145 mmol/L LAB CHEMISTRY METHOD 12/19/2024 8:20 AM [facility] Potassium 3.3(L) 3.5 - 5.5 mmol/L LAB CHEMISTRY METHOD 12/19/2024 8:20 AM [facility] Chloride 106 96 - 110 mmol/L LAB CHEMISTRY METHOD 12/19/2024 8:20 AM [facility] CO2 26 21 - 32 mmol/L LAB CHEMISTRY METHOD 12/19/2024 8:20 AM [facility] Anion Gap 9 3 - 11 LAB CHEMISTRY METHOD 12/19/2024 8:20 AM [facility] Glucose 74 70 - 100 mg/dL LAB CHEMISTRY METHOD 12/19/2024 8:20 AM [facility] BUN 26(H) 5 - 25 mg/dL LAB CHEMISTRY METHOD 12/19/2024 8:20 AM [facility] Creatinine 1.68(H) 0.70 - 1.30 mg/dL LAB CHEMISTRY METHOD 12/19/2024 8:20 AM [facility] eGFR 43(L) >=60 mL/min/1. 73m2 LAB CHEMISTRY METHOD 12/19/2024 8:20 AM [facility] Comment:Calculation based on the Chronic Kidney Disease Epidemiology Collaboration (CKD-EPI) equation refit without adjustment for race. BUN/Creatinine Ratio 15.5 LAB CHEMISTRY METHOD 12/19/2024 8:20 AM [facility] Calcium 8.1(L) 8.5 - 10.5 mg/dL LAB CHEMISTRY METHOD 12/19/2024 8:20 AM [facility] AST (SGOT) 20 10 - 42 unit/L LAB CHEMISTRY METHOD 12/19/2024 8:20 AM [facility] ALT (SGPT) 18 10 - 60 unit/L LAB CHEMISTRY METHOD 12/19/2024 8:20 AM [facility] Alkaline Phosphatase 210(H) 42 - 121 unit/L LAB CHEMISTRY METHOD 12/19/2024 8:20 AM EDT [facility] Total Protein 5.3(L) 6.0 - 8.0 g/dL LAB CHEMISTRY METHOD 12/19/2024 8:20 AM EDT [facility] Albumin 2.0(L) 3.2 - 5.0 g/dL LAB CHEMISTRY METHOD 12/19/2024 8:20 AM EDT [facility] Total Bilirubin 0.6 0.0 - 1.4 mg/dL LAB CHEMISTRY METHOD 12/19/2024 8:20 AM EDT [facility] Blood Venous blood specimen / Unknown Venipuncture / Unknown 12/19/2024 4:48 AM EDT 12/19/2024 7:19 AM EDT us Jarad Lundy MD LAB BLOOD ORDERABLES Final Resu lt [facility] [address] [place] [address], from Last 3 Months or Most Recently Relevant to Health Maintenance Insurance [place]ICA[place] [facility] [place] [place] [id number] Care Teams Land Leasing Examiner Relationship Specialty Start Date End Date Jarad Lundy MD [address] [place] [address] PCP - General Hospitalist Medicine 12/17/24
--- OUTSIDE RECORDS SUMMARY | 2025-05-03 22:34 | XMS_ITS | Encounter Summary ---
Author Organization [employer] [facility] Address [address] [facility] 7t [place] [address] Care Team Providers Care Color Specialist Name Role Phone Virginia Perez Primary Care Provider Blanca Ring MD Primary Care Pro vider Cynthia Marshall NP Primary Care Provider [phone] Encounter Details Date Type Department Care Team (Late st Contact Info) Description 01/01/2023 Abstract [facility] MEDICINE [address] [place] [address] Virginia Perez FNP Social History Tobacco Use [...] Description 05/06/2025 9:45 AM EDT Office Visit [facility] [address] [place] [address] Cynthia Marshall NP [address] [place], [place] [phone] documented as of this encounter Visit Diagnoses Not on filedocumented in this encounter Care Teams Color Specialist Relationship Specialty Start Date End Date Virginia Perez FNP PCP - General Family Medicine 04/28/22 03/28/23 Blanca Crowley MD [address] [place] [address] PCP - General Internal Medicine 03/29/23 09/09/23 Cynthia Marshall NP [address] [place] [address] PCP - General Family Medicine 09/10/23 [facility] 01/01/25 04/27/25 [facility] 04/21/25 documented as of this encounter
--- OUTSIDE RECORDS SUMMARY | 2025-05-03 22:35 | XMS_ITS | Encounter Summary ---
Author Organization [employer] Address [address] 7t [place] [address] Care Team Providers Care Business English Instructor Name Role Phone Cynthia Marshall NP Primary Care Provider [phone] Encounter Details Date Type Department Care Team ([facility] st Contact Info) Description 04/11/2024 Orders Only [facility] MEDICINE [address] [place], [place] [phone] Cynthia Marshall NP [address] [place] [address] Stage 3b chronic kidney disease (CMS/HCC) Social [...] Description 05/06/2025 9:45 AM EDT Office Visit [facility] MEDICINE [address] [place], [place] [phone] Cynthia Marshall NP [address] [place], [place] [phone] documented as of this encounter Procedures Procedure [...] Kidney Disea se: Estimated GFR < 60 mL/min/[id number] Kidney Disease: Estimated GFR < 15 mL/min/1.73m2 Glucose 110 60 - 115 mg/dL [facility] Calcium 9.2 8.4 - 10.2 mg/dL [facility] Blood Venous blood specimen / Unknown 07/04/2024 12:13 PM EST 07/04/2024 12:13 PM EST us Cynthia Marshall CEMENT OR CONCRETE FINISHING SUPERVISOR LAB BLOOD ORDERABLES Final Resul t [facility] [address] [place] [address] [phone] documented in this encounter Visit Diagnoses Diagnosis Stage 3b chronic kidney disease (CMS/HCC) documented in this encounter Additional Health Concerns Assessment Noted Time PHQ-9 Depression Total Score: 0 01/21/20 24 11:17 AM EDT documented as of this encounter Care Teams Business English Instructor Relationship Specialty Start Date End Date Cynthia Marshall NP [address] [place] [address] PCP - General Family Medicine 09/10/23 [facility] 01/01/25 04/27/25 [facility] [place] [facility] 04/21/25 documented as of this encounter
--- OUTSIDE RECORDS SUMMARY | 2025-05-03 22:35 | XMS_ITS | Encounter Summary ---
Author Organization [employer] Address [address] [facility] 7t [place] [address] Care Team Providers Care Grades 7 8 Tutor Name Role Phone Cynthia Marshall NP Primary Care Provider [phone] Reason for Visit * Reason Onset Date Comments fyi 05/01/2025 Encounter Details Date Type Department Care Team ([facility] st Contact Info) Description 05/01/2025 Telephone [facility] MEDICINE [address] [place], [place] [phone] Cynthia Marshall NP [address] [place] [address] fyi Social History Tobacco Use Types Packs/Day Years [...] * Telephone Encounter - Franchesca Timmons - 05/01/2025 3:18 PM EDT Tc from Jalyn at [facility] stating pt gained 11 lbs in 10 days and was not taking dieretics . Son started staying with pt 2-3 days ago and pt is taking his dieretics as son is giving them to him Contact Jalyn at [phone] documented in this encounter Plan of Treatment Upcoming Encounters Date Type Department Care Team (Late st Contact Info) Description 05/06/2025 9:45 AM EDT Office Visit [facility] MEDICINE [address] [place], [place] [phone] Cynthia Marshall NP [address] [place], [place] [phone] documented as of this encounter Visit Diagnoses Not on filedocumented in this encounter Additional Health Concerns Assessment Noted Time PHQ-9 Depression Total Score: 3 01/22/20 10:47 AM EDT documented as of this encounter Care Teams Grades 7 8 Tutor Relationship Specialty Start Date End Date Cynthia Marshall NP [address] [place] [address] PCP - General Family Medicine 09/10/23 Luis [facility] 04/21/25 documented as of this encounter
--- OUTSIDE RECORDS SUMMARY | 2025-05-03 22:35 | XMS_ITS | Encounter Summary ---
Author Organization [employer] Address [address] 7[address] [place] [address] Care Team Providers Care Medical Case Manager Name Role Phone Cynthia Marshall NP Primary Care Provider [phone] Reason for Visit * Reason Comments Med Refill Encounter Details Date Type Department Care Team ([facility] st Contact Info) Description 04/29/[address] [facility] MEDICINE [address] [place] [address] Cynthia Marshall NP [address] [place] [address] Social History Tobacco Use Types Packs/Day Years [...] 05/06/2025 9:45 AM EDT Office Visit [facility] MEDICINE [address] [place] [address] Cynthia Marshall NP [address] [place] [address] documented as of this encounter Visit Diagnoses Not on filedocumented in this encounter Additional Health Concerns Assessment Noted Time PHQ-9 Depression Total Score: 3 01/22/20 10:47 AM EDT documented as of this encounter Care Teams Medical Case Manager Relationship Specialty Start Date End Date Cynthia Marshall NP [address] [place] [address] PCP - General Family Medicine 09/10/23 [place] [facility] 04/21/25 documented as of this encounter
--- OUTSIDE RECORDS SUMMARY | 2025-05-03 22:35 | XMS_ITS | Encounter Summary ---
Author Organization [employer] Address [address] [place] [address] Care Team Providers Care Documentation Designer Name Role Phone Cynthia Marshall NP Primary Care Provider [phone] Reason for Visit * Reason Comments Med Refill Encounter Details Date Type Department Care Team ([facility] st Contact Info) Description 04/29/2025 Refill [facility] [address] [place], [place] [phone] Apryl Ruelas DO [address] [place], [place] [phone] Bilateral lower extremity edema Social History Tobacco [...] 05/06/2025 9:45 AM EDT Office Visit [facility] MED[facility] [address] [place] [address] Cynthia Marshall NP [address] [place] [address] documented as of this encounter Visit Diagnoses Diagnosis Bilateral lower extremity edema documented in this encounter Additional Health Concerns Assessment Noted Time PHQ-9 Depression Total Score: 3 01/22/20 25 10:47 AM EDT documented as of this encounter Care Teams Documentation Designer Relationship Specialty Start Date End Date Cynthia Marshall NP [address] [place] [address] PCP - General Family Medicine 09/10/23 [place] MAGALYA 04/21/25 documented as of this encounter
--- OUTSIDE RECORDS SUMMARY | 2025-05-03 22:35 | XMS_ITS | Encounter Summary ---
Author Organization [employer] Address [address] [place] [address] Care Team Providers Care Sheltered Workshop Executive Director Name Role Phone Cynthia Marshall NP Primary Care Provider [phone] Encounter Details Date Type Department Care Team (Late st Contact Info) Description 12/31/2023 Orders Only [facility] [address] [place] [address] Corby Jacobs MD [address] [place] [address] Elevated blood uric acid level (Primary Dx) [...] 9:45 AM EDT Office Visit [facility] MED[facility] [address] [place] [address] Cynthia Marshall NP [address] [place] [address] documented as of this encounter Visit Diagnoses Diagnosis Elevated blood uric acid level- Primary documented in this encounter Additional Health Concerns Assessment Noted Time PHQ-9 Depression Total Score: 0 01/11/20 23 9:39 AM EDT documented as of this encounter Care Teams Sheltered Workshop Executive Director Relationship Specialty Start Date End Date Cynthia Marshall NP [address] [place] [address] PCP - General Family Medicine 09/10/23 [facility] 01/01/25 04/27/25 [facility] 04/21/25 documented as of this encounter
--- OUTSIDE RECORDS SUMMARY | 2025-05-03 22:35 | XMS_ITS | Encounter Summary ---
Author Organization [employer] Address [address] [place] [address] Care Team Providers Care Car And Yard Supervisor Name Role Phone Cynthia Marshall NP Primary Care Provider [phone] Reason for Visit * Reason Comments Med Refill Encounter Details Date Type Department Care Team (Late st Contact Info) Description 05/16/2024 Refill [facility] [address] [place] [address] Oly Guerrero FNP Social History Tobacco Use [...] Description 05/06/2025 9:45 AM EDT Office Visit [facility] [address] [place] [address] Cynthia Marshall NP [address] [place] [address] documented as of this encounter Visit Diagnoses Not on filedocumented in this encounter Additional Health Concerns Assessment Noted Time PHQ-9 Depression Total Score: 0 01/21/20 24 11:17 AM EDT documented as of this encounter Care Teams Car And Yard Supervisor Relationship Specialty Start Date End Date Cynthia Marshall NP [address] [place] [address] PCP - General Family Medicine 09/10/23 [facility] 01/01/25 04/27/25 [facility] 04/21/25 documented as of this encounter
--- OUTSIDE RECORDS SUMMARY | 2025-05-03 22:35 | XMS_ITS | Encounter Summary ---
Author Organization [employer] Address [address] [place] [address] Care Team Providers Care Publication Editor Name Role Phone Cynthia Marshall NP Primary Care Provider [phone] Encounter Details Date Type Department Care Team ([facility] st Contact Info) Description 07/04/2024 Orders Only [facility] MED[facility] [address] [place], [place] [phone] Cynthia Marshall NP [address] [place] [address] Stage 3b chronic kidney disease (CMS/HCC) Social [...] Description 05/06/2025 9:45 AM EDT Office Visit [facility] MED[facility] [address] [place], [place] [phone] Cynthia Marshall NP [address] [place], [place] [phone] documented as of this encounter Procedures Procedure Name Priority Date/Time Associated Diagnosis Comments NM KIDNEY FLOW/FUNCTION W PHARMACOLOGICAL INTERVENTION Routine 07/31/2024 10:58 AM EST documented in this encounter Results * NM Kidney Flow/Function w/ Pharmacological Intervention (07/31/2024 10:58 AM EST) Anatomical Region Laterality Modality Body Nuclear Medicine 07/31/2024 10:5 8 AM EST Narrative 08/08/2024 10:06 AM EST [address] [address] Nuclear Medicine Report Signed Patient: Ethan Cristina MR#: [id number] 0 : 1950 Acct:[id number] Age/Sex: 73 / M ADM Date: 07/31/24 Loc: [facility] Attending Dr: Kong Duarte MD Ordering Physician: Kong Duarte MD Date of Service: 07/31/24 Procedure(s): NM renal flow w pharm int Accession Number(s): [id number] cc: Kong Duarte MD; Graef,Cynthia B PATIENTS TRANSPORTER EXAMINATION: RENAL DYNAMIC IMAGING STUDY WITH LASIX [...] by: Janice Pate MD 08/08/2024 10:03 AM [facility] Dictated By: Janice Pate Signed By: <Electronically signed by Janice Pate in OV> 08/08/24 1003 DD/ 1058 TD/TT: 07/31/24 1345 Air Defense Specialist: Procedure Note Donotuseinterpreter, Image - 08/08/[address] [address] Nuclear Medicine Report Signed Patient: Tobin Cristina#: [id number] 0 : 3Acct:[id number] Age/Sex: 73 / MADM Date: 07/31/24 Loc: [facility] Attending Dr: Kong Duarte MD Ordering Physician: Kong Duaret MD Date of Service: 07/31/24 Procedure(s): NM renal flow w pharm int Accession Number(s): [id number] cc: Kong Durate MD; Cynthia Marshall NP EXAMINATION: RENAL DYNAMIC [...] by: Janice Pate MD 08/08/2024 10:03 AM [facility] Dictated By: Janice Pate Signed By: <Electronically signed by Janice Pate in OV> 08/08/24 1003 DD/ 1058 TD/TT: 07/31/24 1345 Air Defense Specialist: [facility] External Provider IMG NM PROCEDURES Final Result documented in this encounter Visit Diagnoses Diagnosis Stage 3b chronic kidney disease (CMS/HCC) documented in this encounter Additional Health Concerns Assessment Noted Time PHQ-9 Depression Total Score: 0 01/21/20 24 11:17 AM EDT documented as of this encounter Care Teams Publication Editor Relationship Specialty Start Date End Date Cynthia Marshall NP [address] [place] [address] PCP - General Family Medicine 09/10/23 [facility] 01/01/25 04/27/25 Luis MCDONNELL 04/21/25 documented as of this encounter
--- OUTSIDE RECORDS SUMMARY | 2025-05-03 22:35 | XMS_ITS | Encounter Summary ---
Author Organization [employer] Address [address] [facility] [address] [place] [address] Care Team Providers Care Fur Tanner Name Role Phone Cynthia Marshall NP Primary Care Provider [phone] Reason for Visit * Reason Onset Date Comments Medication Question 04/27/2025 Encounter Details Date Type Department Care Team ([facility] st Contact Info) Description 04/27/2025 Telephone [facility] MED[facility] [address] [place], [place] [phone] Cynthia Marshall NP [address] [place], [place] [phone] Medication Question Social History Tobacco Use Types [...] Telephone Encounter - Elizabeth Hwang RN - 04/28/2025 12:26 PM EDT Call returned to pt's daughter at number provided below to discuss med non- compliance. No answer, v/m left to return call to Blue team nurses. * Telephone Encounter - Wilberto Mcgraw - 04/27/2025 4:35 PM EDT Tc from [place] SATH[facility] stating there is a concern with pt not taking medication at home. [facility] would like nurse to contact pt and follow up on situation. Please contact pt at [phone]. documented in this encounter Plan of Treatment Upcoming Encounters Date Type Department Care Team (Late st Contact Info) Description 05/06/2025 9:45 AM EDT Office Visit [facility] MED[facility] [address] [place] [address] Cynthia Marshall, MARLENE [address] [place] [address] documented as of this encounter Visit Diagnoses Not on filedocumented in this encounter Additional Health Concerns Assessment Noted Time PHQ-9 Depression Total Score: 3 01/22/20 25 10:47 AM EDT documented as of this encounter Care Teams Fur Tanner Relationship Specialty Start Date End Date Cynthia Marshall NP [address] [place] [address] PCP - General Family Medicine 09/10/23 [facility] 01/01/25 04/27/25 [place] [facility] 04/21/25 documented as of this encounter
--- OUTSIDE RECORDS SUMMARY | 2025-05-03 22:35 | XMS_ITS | Encounter Summary ---
Author Organization [email or web address] Address [address] [place] [address] Care Team Providers Care Ship'S Master Name Role Phone Cynthia Marshall NP Primary Care Provider [phone] Encounter Details Date Type Department Care Team ([facility] st Contact Info) Description 04/30/2025 Refill [facility] [address] [place], [place] [phone] Cynthia Marshall NP [address] [place] [address] Bilateral lower extremity edema Social History Tobacco [...] 9:45 AM EDT Office Visit [facility] [address] [place] [address] Cynthia Marshall NP [address] [place] [address] documented as of this encounter Visit Diagnoses Diagnosis Bilateral lower extremity edema documented in this encounter Additional Health Concerns Assessment Noted Time PHQ-9 Depression Total Score: 3 01/22/20 25 10:47 AM EDT documented as of this encounter Care Teams Ship'S Master Relationship Specialty Start Date End Date Cynthia Marshall NP [address] [place] [address] PCP - General Family Medicine 09/10/23 [place] MAGALYA 04/21/25 documented as of this encounter
--- OUTSIDE RECORDS SUMMARY | 2025-05-03 22:35 | XMS_ITS | Clinical Summary ---
Author Organization [employer] Address [address] [place] [address] 7[address] [place] [address] Care Team Providers Care Emergency Care Tech Name Role Phone Cynthia Marshall NP Primary Care Provider [phone] Allergies No known active allergies Medications fluticasone (Flonase) 50 MCG/ACT nasal sprayIndication s:Nasal congestion INSTILL 1 SPRAY IN EACH NOSTRIL ONCE DAILY IN THE MORNING 16 g 08/22/19 24 Active Blood Glucose Monitoring Suppl (FreeStyle [place] Lite) w/Device kitIndications: Type 2 diabetes mellitus with other specified complication, without long-term current use of insulin ([facility]) Use to test blood sugar bid dx dm 1 kit 12/05/19 24 Active glucose blood (OneTouch Ultra) test stripIndication s:Type 2 diabetes mellitus with other specified complication, without long-term current use of insulin ([facility]) test blood sugar as needed, in the [...] MORNING 90 tablet 1 01/22/20 25 Active atorvastatin (Lipitor) 40 MG tablet [...] per day. 90 tablet 02/05/20 25 Active omeprazole (PriLOSEC) [address] capsule Take 1 capsule (40 mg) by mouth in the morning and 1 capsule (40 mg) in the evening. Do not crush or chew. 60 capsule 04/30/20 25 Active ferrous sulfate 325 (65 Fe) MG tablet Take 1 tablet (325 mg) by mouth in the morning and 1 tablet (325 mg) in the evening. 180 tablet 1 04/30/20 25 Active furosemide (Lasix) 40 MG tabletIndicatio ns:Bilateral lower extremity edema Take 1 tablet (40 mg) by mouth 2 times daily for 14 days. 28 tablet 04/30/20 25 025 Active FeroSul 325 (65 Fe) MG tablet TAKE 1 TABLET BY MOUTH EVERY OTHER DAY WITH ORANGE JUICE 90 tablet 3 03/07/20 23 025 Discontinued(Me d list cleanup (will not trigger notification to Pharmacy)) omeprazole (PriLOSEC) [address] capsule Take 1 capsule (40 mg) by mouth in the morning and 1 capsule (40 mg) in the evening. Do not crush or chew. 60 capsule 02/03/20 25 025 Discontinued(Re order (will not trigger notification to Pharmacy)) furosemide (Lasix) 40 MG tablet Take 1 tablet (40 mg) by mouth Once per day. 90 tablet 02/05/20 25 025 Discontinued ferrous sulfate 325 (65 Fe) MG EC tablet Take 1 tablet by mouth in the morning and 1 tablet in the evening. Do not crush, chew, or split. 025 Discontinued(En tered in error) ferrous sulfate 325 (65 Fe) MG tablet Take 1 tablet by mouth in the morning and 1 tablet in the evening. 025 Discontinued(Re order (will not trigger notification to Pharmacy)) furosemide (Lasix) 40 MG tabletIndicatio ns:Acute on chronic congestive heart failure, unspecified heart failure type (CMS/HCC) Take 1 tablet (40 mg) by mouth Once per day. 30 tablet 04/07/20 25 025 Discontinued(Re order (will not trigger notification to Pharmacy)) furosemide (Lasix) 40 MG tabletIndicatio ns:Bilateral lower extremity edema Take 1 tablet (40 mg) by mouth 2 times daily for 14 days. 28 tablet 04/09/20 25 025 Discontinued(Re order (will not trigger notification to Pharmacy)) Active Problems Problem Noted Date Diagnosed Date CHF exacerbation 04/06/2025 Assessment & Plan (04/08/2025 4:26 PM EDT): Severe, I reviewed my recommendation that pt is admitted to hospital for IV diuresis Pt declines Pt requests I call daughter. Discussion with diego about medications at home, management and recommendation [...] scanned in chart, Reviewed [place] Continue home VNA, Rectal bleeding 01/21/2025 Gastrointestinal [...] pt is living alone at this time E/M Engineer resources given to family Referral to [facility] services Home VNA as quickly as possible [...] Son to reconcile meds with pharmacy, to pick up attendant and continue vancomycin as ordered from hosp [...] after discharge. Spoke with DMITRY Nagy at [facility] and they will be waiting for [...] Plan (10/08/2023 5:16 PM EST): Lesion right jainism suspicious for AK, referral to derm Stage [...] Encounters Date Type Department Care Team Description 05/01/2025 Telephone [facility] [address] [place] [address] Cynthia Marshall NP [facility] 04/30/2025 Refill [facility] [address] [place] [phone] Cynthia Marshall NP Bilateral lower extremity edema 04/29/2025 Refill [facility] [address] [place] [address] Apryl Ruelas DO Bilateral lower extremity edema 04/29/2025 Refill [facility] [address] [place] [phone] Cynthia Marshall NP 04/27/2025 Telephone [facility] [address] [place] [phone] Cynthia Marshall NP Medication Question 04/27/2025 Orders Only [facility] [address] [place] [phone] Blanca Crowley MD 04/23/2025 Telephone [facility] [address] [place] [address] Cynthia Marshall NP June04/21/2025 Patient Outreach [address] [address] Cynthia Marshall NP Transition Of Care (Tcm) (HDF scheduled) 04/21/[address] [address] Cynthia Marshall NP Hospital Follow-up 04/14/[address] [address] Shoshana Chaudhary RN 04/14/[address] [address] Blanca Crowley MD CHART PREP 04/12/2025 Orders Only GENERIC EXTERNAL DATA DEPARTMENT Provider, Generic External Data 04/11/2025 10:40 AM EDT [facility] [address] [address] Sebastián Ahn MD Pedal edema (Primary Dx) 04/11/2025 Travel 04/09/2025 8:40 AM EDT [facility] [address] [address] Apryl Ruelas DO Scrotal edema (Primary Dx); Bilateral lower extremity edema 04/09/[address] [address] Shoshana Chaudhary RN 04/09/2025 Travel 04/07/2025 2:45 PM EDT Office Visit [address] [address] Cynthia Marshall NP Acute on chronic congestive [...] Travel 04/06/2025 3:20 PM EDT Office Visit [facility] [address] [address] Blanca Mills MD Acute on chronic congestive heart failure, unspecified heart failure type ([facility]/HCC) (Primary Dx) 04/06/2025 [facility]phone [facility] [address] [address] Cynthia Marshall NP 04/06/2025 Travel 04/04/2025 Orders Only GENERIC EXTERNAL DATA DEPARTMENT Provider, Generic External Data 03/31/[address] [address] Cynthia Marshall NP Call Back Request 03/30/2025 Orders Only [facility] External Provider, [facility] 03/30/2025 Travel 03/25/2025 9:40 AM EDT Office Visit [address] [address] Corby Jacobs MD Hypoxia (Primary Dx) 03/25/[address] [address] Cynthia Marshall NP Call Back Request 03/25/2025 Orders Only GENERIC EXTERNAL DATA DEPARTMENT Provider, Generic External Data 03/25/2025 Travel 03/24/[address] [address] Cynthia Marshall NP Durable Medical Equipment 03/23/2025 Orders Only [facility] External Provider, [facility] 03/13/2025 9:30 AM EDT Clinical Support [address] [address] Shoshana Chaudhary RN CHF (congestive heart failure), NYHA class II, acute on chronic, combined ([facility]) [I50.43] 03/13/2025 Travel 03/10/2025 10:30 AM EDT Clinical Support [address] [address] Elizabeth Hwang RN Primary hypertension 03/10/[address] [address] Cynthia Marshall NP Durable Medical Equipment 03/10/2025 Travel 03/05/[address] [address] Cynthia Marshall NP Durable Medical Equipment 03/04/2025 10:15 AM EDT Office Visit [address] [address] Cynthia Marshall NP CHF (congestive heart failure), NYHA class II, acute on chronic, combined (CMS/HCC) (Primary Dx); Essential hypertension; Paroxysmal atrial fibrillation ([facility]); Type 2 diabetes mellitus with other specified complication, without long-term current use of insulin ([facility]); Dyspnea on exertion; Lower extremity edema 03/04/[address] [address] Shoshana Chaudhary RN 03/04/2025 Travel 03/03/[address] [address] Kecia Phillips [place] CHARTPREP 02/26/[address] [address] Cynthia Marshall NP Need for echo 02/12/[address] [address] Cynthia Masrhall NP Nurse Triage 02/10/[address] [address] Cynthia Marshall NP Nurse Triage 02/07/[address] [address] Cynthia Marshall NP 02/06/[address] [address] Cynthia Marshall NP FYI 02/05/[address] [address] Cynthia Marshall NP requesting call back 02/04/2025 10:45 AM EDT Office Visit [address] [address] Blanca Mills MD Type 2 diabetes mellitus with stage 3a chronic kidney disease, without long-term current use of insulin ([facility]); Primary hypertension; Chronic systolic heart failure ([facility]); Hypokalemia; Hypomagnesemia 02/04/2025 Travel 02/04/2025 Refill [facility] [address] [place] [address] Rose Anderson, PharmD 02/03/2025 Telephone [facility] [address] [place] [address] Kecia Phillips [place] CHARTPREP 02/02/2025 Orders Only [facility] [address] [place] [address] Severino Santoro, PharmD 02/02/2025 Telephone [facility] [address] [place] [address] Cynthia Marshall NP Call Back Request 02/02/2025 Refill [facility] [address] [place] [address] Cynthia Marshall NP from Last 3 Months Immunizations Immunization Administration [...] Description 05/06/2025 9:45 AM EDT Office Visit [facility] [address] [place] [address] Cynthia Marshall NP [address], [place] [phone] Health Maintenance Due Date Last Done Comments [...] 07/11/2021, 01/28/2021, 12/31/2020 Influenza Vaccine (#1) 2025 2, 08/01/2021, 06/09/2013, Additional history exists Diabetes: Hemoglobin A1C 07/18/2025 025, 12/19/2024, 12/03/2024, Additional history exists Lipid Panel 01/16/2026 01/16/2025, 06/14, 07/11/2021 Depression Screening 01/21/2026 01/21/2025, 01/22/20 25 SDOH Screening 01/21/2026 01/21/2025 Tobacco Screening 04/09/2026 04/09/2025 DTaP/Tdap/Td Vaccines (3 - Td or Tdap) 08/23/2027 08/23/2017, 06/22/2014 Zoster Vaccines Completed 12/15/2021, 10/07/2021 Pneumococcal Vaccine: 50+ Years Completed 05/24/2022, 07/03/2020, 09/30/2019, Additional history exists HIB Vaccines Aged Out No longer eligi [...] complication, without long-term current use of insulin ([facility]) URINALYSIS, COMPLETE, WITH REFLEX TO CULTURE Routine [...] without long-term current use of insulin (CMS/HCC) HEMOGLOBIN A1C Routine 01/16/2025 11:31 AM EDT Type 2 diabetes mellitus with other specified complication, without long-term current use of insulin (CMS/HCC) LIPID PANEL, STANDARD Routine 01/16/2025 11:31 AM EDT Type 2 diabetes mellitus with other specified complication, without long-term current use of insulin (CMS/HCC) from Last 3 Months or Most Recently Relevant to Health Maintenance Results * (ABNORMAL) Basic Metabolic Panel (04/27/2025 12:05 PM EDT) Only the most recent of2 resultswithin the time period is included. Sodium 139 135 - 145 mmol/L [facility] Potassium 3.4 3.3 - 5.1 mmol/L [facility] Chloride 104 96 - 108 mmol/L [facility] Carbon Dioxide 24 22 - 29 mmol/L [facility] Anion Gap 14 12 - 20 [facility] Urea Nitrogen (BUN) 80(H) 9 - 16 mg/dL [facility] Creatinine, Serum 2.72(H) 0.5 - 1.4 mg/dL [facility] Estimated Glomerular Filt Rate 23 [facility] Comment:Chronic Kidney Disea se: Estimated GFR < 60 mL/min/1.42g3Vnypyf Kidney Disease: Estimated GFR < 15 mL/min/1.73m2 Glucose 144(H) 60 - 115 mg/dL [facility] Calcium 9.2 8.4 - 10.2 mg/dL [facility] 04/27/2025 12:0 5 PM EDT 04/27/2025 12:48 PM EDT us Blanca Anderson MD LAB BLOOD ORDERAB LES Final Result Performing Organization Address City/State/[facility] Co de Phone Number [facility] [address] [place] [address] [phone] * XR Chest 1 View (04/17/2025 8:33 AM EDT) Only the most recent of3 resultswithin the time period is included. Anatomical Region Laterality Modality Chest Radiographic Smitha ging 04/17/2025 8:33 AM EDT Narrative 04/17/2025 8:54 AM EDT [address] [address] XRay Report Signed Patient: Ethan Cristina MR#: [id number] 0 : 1950 Acct:[id number] Age/Sex: 74 / M ADM Date: 04/12/25 Loc: [facility] 459-[address]: Austyn Wilson MD Ordering Physician: Austyn Wilson MD Date of Service: 04/17/25 Procedure(s): XR chest 1V Accession Number(s): [id number] cc: Austyn Wilson MD; Blanca Crowley MD [...] Shah MD in OV> 04/17/25 0851 DD/ 0833 TD/TT: 04/17/25 0847 Stain Sprayer: Procedure Note Donotuseinterpreter, Image - 04/17/[address] [address] XRay Report Signed Patient: Tobin Cristina#: [id number] 0 : 3Acct:[id number] Age/Sex: 74 / MADM Date: 04/12/25 Loc: [facility] 459-[address]: Austyn Wilson MD Ordering Physician: Austyn Wilson MD Date of Service: 04/17/25 Procedure(s): XR chest 1V Accession Number(s): [id number] cc: Austyn Wilson MD; Blanca Crowley MD [...] Shah MD in OV> 04/17/25 0851 DD/ 0833 TD/TT: 04/17/25 0847 Stain Sprayer: [facility] External Provider IMG XR PROCEDURES Final Result * CT Chest w/o Contrast (04/12/2025 8:10 PM EDT) Anatomical Region Laterality Modality Body, Chest Computed Tomogra phy 04/12/2025 8:10 PM EDT Narrative 04/12/2025 8:11 PM EDT [address] [address] [address] Scan Report Signed Patient: Ethan Cristina MR#: [id number] 0 : 1950 Acct:[id number] Age/Sex: 74 / M ADM Date: 04/12/25 Loc: [facility] 459-[address]: Vivek Jaramillo MD Ordering Physician: Vivek Jaramillo MD Date of Service: 04/12/25 Procedure(s): CT chest wo IV con Accession Number(s): [id number] cc: Vivek Jaramillo MD; Blanca Crowley MD Report Number: [id number]: Total DLP = 0.00 mGy-cm CLINICAL HISTORY: [...] in OV> 04/12/252010 DD/ 09 TD/TT: 04/12/252009 Stain Sprayer: Procedure Note Donotuseinterpreter, Image - 04/12/[address] [place] [address] [address] Scan Report Signed Patient: Ethan CristinaMR#: [id number] 0 : 1950cct:[id number] Age/Sex: 74 / MADM Date: 04/12/25 Loc: [facility] 459-[address]: Vivek Jaramillo MD Ordering Physician: Vivek Jaramillo MD Date of Service: 04/12/25 Procedure(s): CT chest wo IV con Accession Number(s): [id number] cc: Vivek Jaramillo MD; Blanca Crowley MD Report Number: [id number]: Total DLP = 0.00 mGy-cm CLINICAL HISTORY: [...] in OV> 04/12/252010 DD/ 09 TD/TT: 04/12/252009 Stain Sprayer: [facility] External Provider IMG CT PROCEDURES Edited Result - Final * (ABNORMAL) VENOUS BLOOD GAS (04/12/2025 4:32 PM EDT) Only the most recent of3 resultswithin the time period is included. VBG pH 7.44(H) 7.32 - 7.43 [facility] Comment:METER #: [id number] additional_comment: Cb snowma VBG PCO2 32 mmHg [facility] Comment:METER #: [id number] additional_comment: Cb snowma VBG PO2 53 mmHg [facility] Comment:METER #: [id number] additional_comment: Cb snowma VBG Base Excess -0.5 mmol/L [facility] Comment:METER #: [id number] additional_comment: César carpio VBG HCO3 22 22 - 26 mmol/L [facility] Comment:METER #: [id number] additional_comment: César carpio O2 Sat, [place]ota 75.0 % [facility] Comment:METER #: [id number] additional_comment: César carpio 04/12/2025 4:32 PM EDT 04/12/2025 4:36 PM EDT us Generic External Data Provider LAB BLOOD ORDERAB LES Final Result [facility] [address] [place] [phone] * POCT Glucose (04/07/2025 2:48 PM [...] (04/04/2025 10:11 AM EDT) Color Urine Yellow [facility] Appearance Urine Clear [facility] PH 6.0 5.0 - 9.0 [facility] Glucose Urine UA Negative Negative mg/dL [facility] Urine Blood Negative Negative [facility] Specific [place] - Urine 1.015 1.005 - 1.025 [facility] Urine Protein 100 (2+)(A) Neg-Trace mg/dL [facility] Urine Ketones Negative Negative mg/dL [facility] Nitrite Urine Negative Negative [facility] Leukocyte Esterase Urine Trace(A) Negative [facility] RBC Urine 0-2 0 - 2 /HPF [facility] Urine WBC 0-5 0 - 5 /HPF [facility] Urine Squamous Epithelial Cell 0-2 0 - 2 /HPF [facility] Urine Bacteria None Seen None Seen [facility] Hyaline Casts, Urine 0-2 0 - 2 /LPF [facility] 04/04/2025 10:1 1 AM EDT 04/04/2025 10:16 AM EDT Narrative [facility] - 04/04/2025 10:24 AM EDT Urine, Clean Catch us Generic External Data Provider LAB URINE ORDERAB LES Final Result Performing Organization Address City/State/[facility] Co de Phone Number [facility] [address] [place] [phone] * XR Chest 2 Views (04/04/2025 9:51 AM EDT) Anatomical Region Laterality Modality Chest Radiographic Smitha ging 04/04/2025 9:51 AM EDT Narrative 04/04/2025 9:52 AM EDT [address] [address] XRay Report Signed Patient: Ethan Cristina MR#: [id number] 0 : 1950 Acct:[id number] Age/Sex: 74 / M ADM Date: 04/04/25 Loc: [facility].ED Attending Dr: Ordering Physician: Ernestine Vazquez NP Date of Service: 04/04/25 Procedure(s): XR chest 2V Accession Number(s): [id number] cc: Ernestine Vazquez NP; Blanca Crowley MD CLINICAL HISTORY: sob Exam: PA and lateral views of the chest. Comparison: January 22, 2025. Findings: Interval increase in size of a moderate-sized right pleural effusion. There is a small left pleural effusion. There is obscuration of the inferior right heart border in the right hemidiaphragm due to the pleural effusion. Cardiac silhouette is [id number] enlarged. Central interstitial markings are diffusely prominent. Degenerative change of both shoulder joints. Impression: Congestive heart failure. This document has been electronically signed by: Ajith Muniz MD on 04/04/2025 09:51:59 Dictated By: Ajith Muniz MD Signed By: <Electronically signed by Ajith Muniz MD in OV> 04/04/25951 DD/ 0 TD/TT: 04/04/25950 Stain Sprayer: Procedure Note Donotuseinterpreter, Image - 04/04/[address] [address] XRay Report Signed Patient: Ethan CristinaMR#: [id number] 0 : 1950cct:[id number] Age/Sex: 74 / MADM Date: 04/04/25 Loc: .ED Attending Dr: Ordering Physician: Ernestine Vazquez NP Date of Service: 04/04/25 Procedure(s): XR chest 2V Accession Number(s): [id number] cc: Ernestine Vazquez NP; Blanca Crowley MD CLINICAL HISTORY: sob Exam: PA and lateral views of the chest. Comparison: January 22, 2025. Findings: Interval increase in size of a moderate-sized right pleural effusion. There is a small left pleural effusion. There is obscuration of the inferior right heart border in the right hemidiaphragm due to the pleural effusion. Cardiac silhouette is xttk-pz-tmllbwawnk enlarged. Central interstitial markings are diffusely prominent. Degenerative change of both shoulder joints. Impression: Congestive heart failure. This document has been electronically signed by: Ajith Muniz MD on 04/04/2025 09:51:59 Dictated By: Ajith Muniz MD Signed By: <Electronically signed by Ajith Muniz MD in OV> 04/04/2552 DD/ 0 TD/TT: 04/04/25950 Stain Sprayer: [facility] External Provider IMG XR PROCEDURES Edited Result - Final * SARS-CoV-2 RNA, Influenza A/B, and RSV RNA, Ql NAAT (04/04/2025 9:25 AM EDT) Pathologist [facility] [place] Influenza A PCR NEGATIVE Negative [facility] Influenza B PCR NEGATIVE Negative [facility] Resp Syncy Virus RNA Qual PCR NEGATIVE Negative [facility] SARS COV2 PCR NEGATIVE Negative [facility] Comment:All test results mus t be [...] use by authorized laboratories.Testing performed on the TrakaXpert utilizingreal-time RT-PCR.All SARS CoV2 and positive influenza A/B results arereported to [facility]. 04/04/2025 9:25 AM EDT 04/04/2025 9:28 AM EDT us Generic External Data Provider LAB MICROBIOLOGY - GENERAL ORDERABLES Final Result [facility] [address] [place] [phone] * (ABNORMAL) CBC auto differential (03/04/2025 11:18 AM EDT) Pathologist [facility] [place] White Blood Count 6.7 4.8 - 10.8 X10*3/uL [facility] Red Blood Count 3.65(L) 4.60 - 5.80 X10*6/uL [facility] Hemoglobin 9.9(L) 14.0 - 18.0 g/dl [facility] Hematocrit 32.8(L) 42.0 - 52.0 % [facility] Mean Corpuscular Volume 89.9 80.0 - 98.0 fL [facility] Mean Corpuscular Hemoglobin 27.1 27.0 - 33.0 pg [facility] Mean Corpuscular HGB Conc 30.2(L) 31.0 - 36.0 g/dl [facility] Red Cell Distribution Width 17.2(H) 11.0 - 16.0 % [facility] Platelet Count 249 160 - 400 X10*3/uL [facility] Mean Platelet Volume 9.8 9.4 - 12.4 fL [facility] Neutrophils Percent Auto 81.3(H) 45 - 73 % [facility] Imm Gran Pct Auto 0.3 0.0 - 0.4 % [facility] Lymphocytes Percent Auto 12.7(L) 20 - 40 % [facility] Monocytes Percent Auto 4.8 2 - 11 % [facility] Eosinophils Percent Auto 0.6 0 - 4 % [facility] Basophils Percent Auto 0.3 0 - 2 % [facility] NRBC Pct Auto 0.0 0.0 - 0.2 /100WBC [facility] Neutrophils Absolute Auto 5.4 2.0 - 8.3 x10*3/uL [facility] Imm Gran Abs Auto 0.02 0.00 - 0.03 X10*3/uL [facility] Lymphocytes Absolute Auto 0.9(L) 1.2 - 4.9 X10*3/uL [facility] Monocytes Absolute Auto 0.3 0.1 - 1.2 X10*3/uL [facility] Eosinophils Absolute Auto 0.0 0.0 - 0.4 X10*3/uL [facility] Basophils Absolute Auto 0.0 0.0 - 0.2 X10*3/uL [facility] NRBC Abs Auto 0.000 0.0 - 0.012 X10*3/uL [facility] Blood Venous blood specimen / Unknown 03/04/2025 11:18 AM EDT 03/04/2025 1:09 PM EDT us Cynthia Marshall NP LAB BLOOD ORDERABLES Final Resul t [facility] [address] [place] [phone] * Magnesium (03/04/2025 11:18 AM EDT) Magnesium 1.6 1.6 - 2.6 mg/dL [facility] Blood Venous blood specimen / Unknown 03/04/2025 11:18 AM EDT 03/04/2025 1:09 PM EDT Blanca Lujan MD LAB BLOOD ORDERABLES Final Result [facility] [address] [place] [phone] * (ABNORMAL) Comprehensive Metabolic Panel (03/04/2025 11:18 AM EDT) Sodium 140 135 - 145 mmol/L [facility] Potassium 4.3 3.3 - 5.1 mmol/L [facility] Chloride 108 96 - 108 mmol/L [facility] Carbon Dioxide 26 22 - 29 mmol/L [facility] Anion Gap 10(L) 12 - 20 [facility] Urea Nitrogen (BUN) 33(H) 9 - 16 mg/dL [facility] Creatinine, Serum 1.93(H) 0.5 - 1.4 mg/dL [facility] Estimated Glomerular Filt Rate 34 [facility] Comment:Chronic Kidney Disea se: Estimated GFR < 60 mL/min/1.49n5Fvktie Kidney Disease: Estimated GFR < 15 mL/min/1.73m2 Glucose 149(H) 60 - 115 mg/dL [facility] Calcium 8.9 8.4 - 10.2 mg/dL [facility] Bilirubin, Total 1.3(H) 0.0 - 1.0 mg/dL [facility] Aspartate Amino Transferase 29 5 - 37 U/L [facility] Alanine Aminotransferase 20 0 - 40 U/L [facility] Total Protein 7.2 6.5 - 8.0 g/dL [facility] Albumin Level 3.3(L) 3.5 - 5.0 g/dL [facility] Alkaline Phosphatase 219(H) 39 - 117 U/L [facility] Blood Venous blood specimen / Unknown 03/04/2025 11:18 AM EDT 03/04/2025 1:09 PM EDT us Cynthia Marshall NP LAB BLOOD ORDERABLES Final Resul t Performing Organization Address [place]/[facility] Co de Phone Number [facility] [address] [place] [phone] * Hemoglobin A1c (01/16/2025 11:31 AM EDT) Hemoglobin A1c 5.0 <6.0 % [facility] Comment:Hemoglobin A1C Refer ence Range Adults: 4.8 - 6.0 % Non diabetic: < 6.0 % Goal: < 7.0 %Additional Action Suggested: > 8.0 %Note: Hemoglobin A1c results are invalid for patients with abnormal amounts of HbF. Blood transfusions may impact the HbA1c concentration in the patient sample. Estimated Average Glucose 97 mg/dL [facility] Comment:eAG = Estimated ave rage glucose which is %A1C expressed asaverage glucose, using the formula of the [id number] Glucose study (ADAG), Diabetes Care, Vol.31,#8,Mar. 2007 Blood Venous blood specimen / Unknown 01/16/2025 11:31 AM EDT 01/16/2025 1:21 PM EDT us Sheila Rockwell MD LAB BLOOD ORDERABLES Final Res ult Performing Organization Address City/[facility]/ZIP Co de Phone Number [facility] [address] [place] [phone] * (ABNORMAL) Lipid Panel, Standard (01/16/2025 11:31 AM EDT) Triglycerides 69 <150 mg/dL [facility] Comment:Desirable Triglyceri de: less than 150 mg/dLBorderline High Triglyceride 150-199 mg/dLHigh Triglyceride: 200-499 mg/dLVery High Triglyceride: greater than or equal to 5OO mg/dL Cholesterol 129 <200 mg/dL [facility] Comment:Desirable Cholestero l: less than 200 mg/dLBorderline High Cholesterol: 200-239 mg/dLHigh Cholesterol: greater than 239 mg/dL LDL Cholesterol Calculated 78 <100 mg/dL [facility] Comment:Desirable LDL: less than 100 mg/dLNear Optimal/Above Optimal LDL: 110- 129 mg/dLBorderline High LDL: 130-159 mg/dLHigh LDL: 160-189 mg/dLVery High LDL: greater than or equal to 190 mg/dL HDL Cholesterol 38(L) >40 mg/dL [facility] Comment:Desirable HDL: great er than 40 mg/dL Note: This HDL assay may give artificially low results in patients with liver disease. 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
[2025-05-03 22:37] LABS: Troponin-I High Sensitivity 24.0 ng/L (<3.5-35.0)
--- NOTE | 2025-05-03 22:42 | PC.NURSE ---
Pt is a 74 y.o italian speaking M presenting to dept from home via EMS for c/o 04/22 sternal chest pain and SOB [employer] IN[employer]. PMHX: acute on chronic heart failure, anasarca, CKD venous stasis ulcers on bilateral lower extremities. Per previous admission record pt has left AMA 6x from [facility] (last d/c 04/17/25). Pt placed on 4L via NC for c/o SOB by EMS. SpO2 98% at this time. Pt rec 324 ASA en route Per EMS diagnostic 12 lead: afib 50's to 100bpm. 20g IV access by EMS was established and labs and EKG were obtained on arrival. Pt legs are edematous, with wound dressings in place, serous drainage noted. (+) CSM Pt is aggitated, demanding to go home, states he doesnt want to be in the hospital . Pt was able to be de-escaled and pt cooperated with care. biostatistician applied Pt sonJavy present at bedside. sts pt just rec O2 fo home use- son expresses concern for pt decision making. Labs pending, awaiting provider eval at this time. call geiger within reach
[2025-05-03 22:52] LABS: Magnesium 1.9 mg/dL (1.6-2.6)
[2025-05-03 22:59] LABS: NT Pro B Type Natriuretic Pept 21253.5 pg/mL (<300)
[2025-05-03 23:16] LABS: Resp Syncy Virus RNA Qual PCR NEGATIVE (Negative); SARS COV2 PCR INHOUSE NEGATIVE (Negative)
--- NOTE | 2025-05-03 23:33 | ED.GENADULT ---
HPI - General Adult General Chief complaint: General Medical Stated complaint: diff breathing CP Time Seen by Provider: 05/03/25 22:08 Source: patient and family Limitations: language barrier History of Present Illness HPI narrative: 74 y/o M with hx of HFpEF (LVEF 52%), AFib on Eliquis, [id number] type 2 diabetes, HTN, HLD, CAD, hyperparathyroidism, CKD 3, and cognitive impairment who presented to emergency room with shortness of breath and swelling in her legs. The peripheral edema is chronic, he is followed by wound care, the nurse comes to the home daily. His wounds were just dressed today. In regard to the shortness of breath, that began today, associated chest discomfort that has since resolved. Denies recent cough or cold symptoms no known fevers. No sick contacts with viral syndrome. Per EMS, the patient was found to be hypoxic from his baseline, 88% RA, he is now on 4 L nasal cannula. Related Data Home Medications ?Medication ?Instructions ?Recorded ?Confirmed blood-glucose meter #1 ea 05/14/20 01/14/24 lancets #100 ea 05/14/20 01/14/24 atorvastatin 40 mg tablet 40 mg PO DAILY 12/19/22 04/12/25 apixaban 2.5 mg tablet (Eliquis) 2.5 mg PO BID 12/05/24 04/12/25 calcitriol 0.25 mcg capsule 0.25 mcg PO Q48H 03/30/25 04/12/25 ferrous sulfate 325 mg (65 mg 325 mg PO BID 03/30/25 04/12/25 iron) tablet Previous Rx's ?Medication ?Instructions ?Recorded blood sugar diagnostic #50 ea 01/24/21 omeprazole 40 mg capsule,delayed 40 mg PO BID@0630,1630 #60 caps 12/16/24 release amlodipine 5 mg tablet 5 mg PO DAILY #60 tabs 01/29/25 carvedilol 6.25 mg tablet 6.25 mg PO BID #60 tabs 01/29/25 cefdinir 300 mg capsule 300 mg PO BID #6 caps 04/18/25 doxycycline monohydrate 100 mg 100 mg PO Q12H #6 caps 04/18/25 capsule furosemide 80 mg tablet 80 mg PO BID #60 tabs 04/18/25 metolazone 2.5 mg tablet 2.5 mg PO .MWF #12 tabs 04/18/25 Allergies Allergy/AdvReac Type Severity Reaction Status Date / Time No Known Allergies (No Known Allergy Verified 05/03/25 22:17 Allergies*) Review of Systems Review of Systems: Yes all other systems are reviewed and are negative Constitutional: Constitutional: Denies fatigue and Denies fever(s) Cardiovascular: Cardiovascular: Reports chest pain, Reports leg edema and Reports dyspnea Respiratory: Respiratory: Reports dyspnea Gastrointestinal: Gastrointestinal: Denies abdominal pain, Denies nausea and Denies vomiting Endocrine: Endocrine: Denies fatigue [facility] Past Medical History Attestation statement: The following information was validated with the patient. Medical History Anemia in chronic kidney disease (CKD) Hypertension Uncontrolled hypertension Congestive heart failure CKD (chronic kidney disease) CHF (congestive heart failure) CKD (chronic kidney disease) stage 4, GFR 15-29 ml/min Obesity (BMI 30.0-34.9) Cardiomyopathy Stroke Chronic atrial fibrillation CKD (chronic kidney disease) Former smoker Depression Diabetes High cholesterol Surgical History History of aneurysm History of shoulder surgery Family History Family History Father No problems noted. Mother Diabetes Hypertension Cancer Son No problems noted. Son No problems noted. Son No problems noted. Daughter No problems noted. Daughter No problems noted. Social History Social History Household Members: None Household Members Other:: Housing: Apartment Are you a primary rn care manager to a significant other at home: No Do you presently have visiting nurse or other home services: Yes (3 times a week/ pt cannot recall name of services) Unable to assess alcohol history related to: Unknown Alcohol intake: never Comment: Sitter at bedside Patient Tobacco Use Status: Former Tobacco user Smoked in Last 30 Days: No Use of substances other than those prescribed or required for medical reasons: No Substance Use Type: Marijuana Advance Directives: Yes Advance Directives on File: Yes Advance Directives Date on File: 12/17/24 Do you have a plan to hurt others: No Plan service: No Current occupational status: disabled Physical Exam ED Vital Signs: Vital Signs - 24 hr 05/03/25 22:15 05/03/25 23:46 05/04/25 01:45 Temperature 97.5 F 97.9 F Pulse Rate 72 65 Respiratory Rate 20 15 Blood Pressure 134/67 136/66 128/61 Pulse Oximetry 97 96 Oxygen Delivery Method Nasal Cannula Nasal Cannula Oxygen Flow Rate 2 BMI result Body Mass Index 31.2 Const Other: Alert ill-appearing Orientation/consciousness: patient oriented x3 Resp Other: Labored respirations, coarse breath sounds posterior duke with basilar crackles Cardio Other: Normal peripheral perfusion, pitting edema, Skin Other: Warm dry no rash Neuro General: patient oriented x3, no focal motor deficits and CN's II-XI intact bilaterally Extrem Other: Psych Other: Somewhat uncooperative, but easily redirected Medications Administered Discontinued Medications Generic Name Dose Route Start Last Admin Trade Name Freq PRN Reason Stop Dose Admin Ceftriaxone Sodium 2 gm 05/03/25 23:34 05/03/25 23:58 Ceftriaxone Sodium 2 Gm Vial IVPUSH 05/03/25 23:35 2 gm ONCE ONE Administration Furosemide 40 mg 05/03/25 23:34 05/03/25 23:46 Furosemide 40 Mg/4 Ml Vial IVPUSH 05/03/25 23:35 40 mg STAT STA Administration Protocol Azithromycin 500 mg/ Sodium 250 mls @ 125 mls/hr 05/03/25 23:34 05/03/25 23:58 Chloride IV 05/04/25 01:33 125 mls/hr ONCE ONE Administration Calcium Gluconate 2 gm in 100 mls @ 400 mls/hr 05/04/25 01:49 05/04/25 02:08 Calcium Gluconate IV 05/04/25 02:03 400 mls/hr ONCE ONE Administration Medical Decision Making Medical Decision Making MDM Narrative: 74 y/o M with hx of HFpEF (LVEF 52%), AFib on Eliquis, [id number] type 2 diabetes, HTN, HLD, CAD, hyperparathyroidism, CKD 3, and cognitive impairment who presented to emergency room with shortness of breath and swelling in her legs. The peripheral edema is chronic, he is followed by wound care, the nurse comes to the home daily. His wounds were just dressed today. In regard to the shortness of breath, that began today, associated chest discomfort that has since resolved. Denies recent cough or cold symptoms no known fevers. No sick contacts with viral syndrome. Per EMS, the patient was found to be hypoxic from his baseline, 88% RA, he is now on 4 L nasal cannula. Problem: Heart failure, AFib, diabetes, known coronary artery disease, chronic kidney disease, cognitive impairment History: Primarily from the son and EMS I have considered the following differential diagnoses: ACS, heart failure exacerbation, pneumonia, bronchitis, viral syndrome Plan: I am considering ACS and/or heart failure exacerbation given the nature of his symptoms. We will be ordering screening labs, troponin, BNP. EKG and chest x-ray. The patient could have underlying infectious process as cause for his symptoms, adding a viral panel, blood cultures, lactic, in the event he requires antibiotic therapy. I have independently reviewed the following tests: Labs: No overall leukocytosis, left shift noted, stable anemia, mild hyperkalemia at 5.3, slight bump in his kidney function at 2.92, lactic 1.3, troponin 24, BNP, 80180.5, viral panel negative, the patient was screened for influenza a and B RSV and COVID EKG: AFib, rate of 69, ST and T-wave abnormalities inferolateral leads unchanged from prior study, QTC 462 Chest x-ray: Findings: Persistent right basilar density. Lungs are otherwise clear. No pneumothorax. Heart is enlarged. Soft tissues and visualized bony structures are unremarkable. Impression: 1. Persistent right basilar density favored to represent combination of pleural effusion and atelectasis however superimposed infection would be difficult to exclude. 2. Additional findings as above. Differential Diagnosis Differential Diagnoses: The differential diagnosis associated with the presentation includes See medical decision-making Admission/Observation Consideration of admission/observation: Escalation of care including admission/observation considered Not applicable Consult Healthcare Provider Management of the patient was discussed with: Hospitalist Lab Data [facility] Lab Attestation statement: I reviewed the patient's lab results. 05/03/25 22:00 05/03/25 22:00 Labs: Lab Results 05/03/25 05/03/25 05/04/25 Range/Units 22:00 22:26 01:51 WBC 5.2 (4.8-10.8) X10*3/uL RBC 3.19 L (4.60-5.80) X10*6/uL Hgb 8.0 L (14.0-18.0) g/dl Hct 27.5 L (42.0-52.0) % MCV 86.2 (80.0-98.0) fL MCH 25.1 L (27.0-33.0) pg MCHC 29.1 L (31.0-36.0) g/dl RDW 17.8 H (11.0-16.0) % Plt Count 180 (160-400) X10*3/uL MPV 10.0 (9.4-12.4) fL Immature Gran % (Auto) 0.4 (0.0-0.4) % Neut % (Auto) 77.8 H (45-73) % Lymph % (Auto) 12.4 L (20-40) % [place]ock[place] % (Auto) 7.5 (2-11) % Eos % (Auto) 1.7 (0-4) % Baso % (Auto) 0.2 (0-2) % Lymph # (Auto) 0.6 L (1.2-4.9) X10*3/uL [place] # (Auto) 0.4 (0.1-1.2) X10*3/uL Eos # (Auto) 0.1 (0.0-0.4) X10*3/uL Baso # (Auto) 0.0 (0.0-0.2) X10*3/uL Abs Immat Gran (auto) 0.02 (0.00-0.03) X10*3/uL Absolute Neuts (auto) 4.0 (2.0-8.3) x10*3/uL Absolute Nucleated RBC 0.000 (0.0-0.012) X10*3/uL Nucleated RBC % (auto) 0.0 (0.0-0.2) /100WBC Sodium 138 (135-145) mmol/L Potassium 5.3 H D (3.3-5.1) mmol/L Chloride 107 (96-108) mmol/L Carbon Dioxide 20 L (22-29) mmol/L Anion Gap 16 (12-20) BUN 93 H (9-16) mg/dL Creatinine 2.92 H (0.5-1.4) mg/dL Estim Creat Clear Calc 25.3 Estimated GFR 21 Random Glucose 172 H (60-115) mg/dL Lactic Acid 1.3 (0.5-2.0) mmol/L Calcium 8.5 D (8.4-10.2) mg/dL Magnesium 1.9 (1.6-2.6) mg/dL Total Bilirubin 0.7 (0.0-1.0) mg/dL AST 45 H (5-37) U/L ALT 30 (0-40) U/L Alkaline Phosphatase 143 H (39-117) U/L Troponin I High Sens 24.0 28.0 (<3.5-35.0) ng/L NT-Pro-B Natriuret Pep 24205.5 H (<300) pg/mL Total Protein 7.7 (6.5-8.0) g/dL Albumin 3.3 L (3.5-5.0) g/dL Influenza Type A (PCR) NEGATIVE (Negative) Influenza Type B (PCR) NEGATIVE (Negative) RSV RNA Qual (PCR) NEGATIVE (Negative) SARS-CoV-2 RNA (RT-PCR) NEGATIVE (Negative) Independent Interpretation I performed an independent interpretation of an: EKG Radiology Impression Discussion of test interpretation with radiology: I have reviewed the radiologist's reading. Critical Care Time Critical Care Time Critical Care Time: Yes Total Critical Care Time: 35 Attestation: I Christine Roblero PA-C have personally performed 35 minutes of critical care time not including lines and procedures; hypoxia, heart failure exacerbation, pneumonia, hyperkalemia, need for IV Lasix, IV antibiotic therapy , IV calcium gluconate for hyperkalemia, hospital admission, Discharge Plan Discharge Clinical Impression: Hypoxia, Pneumonia, Acute hyperkalemia, Pleural effusion Patient Disposition: Admitted As Inpatient Print Language: Occitan
[2025-05-03 23:46] VITALS: BP 136/66
[2025-05-03] MEDS: Furosemide 40 MG/4 ML VIAL IVPUSH (23:46)
[2025-05-04] VITALS (12 sets, daily range): BP systolic 94–149; BP diastolic 55–84; PULSE 57–73; RESP 15–22; TEMP 36.1–36.6; O2SAT 92–100; BMI 31.3
--- NOTE | 2025-05-04 00:06 | PC.NURSE ---
provider into to change dressing, medicated per mar.
--- NOTE | 2025-05-04 00:08 | PC.NURSE ---
provider into assess bilateral extremities, dressing changed, medicated per mar, pt change into hospital attire, on bedside monitor and pure wick in place
--- NOTE | 2025-05-04 01:40 | PC.NURSE ---
pt resting in bed, hospital sock placed on pt, per provider reassess pt O2 on room Air pt de-sats to the high 89's and low 90's, pt placed back on oxygen, 2 liters. Provider notified.
--- NOTE | 2025-05-04 01:58 | PM.IMHP ---
History of Present Illness Date of Service: 05/04/25 Attending physician on admission: Michelle Schuster Chief Complaint: Chest pain,swollen legs Ethan Cristina is a 74 years old man with a past medical history significant for multiple hospitalization for chronic hypoxic respiratory failure (noncompliant with oxygen use) due to acute on chronic CHF, multiple AMS, atrial fibrillation on Eliquis, type 2 diabetes mellitus, essential hypertension, CAD, hyperlipidemia, hyperparathyroidism, CKD and congnitive impaiment presents to the emergency department complaining of retrosternal chest pain without radiation that started few minutes before presenting to the hospital. He was given aspirin by EMS. He also reported worsening swelling to the lower extremities and wounds for which he gets cares at home. According to ED nurse, patient has done commented that patient's supposed to use home O2 but he has not been wearing it. In the ED, he was found to have stable vital signs. He was found to have hypoxic by EMS. The patient is currently on 2 L of supplemental oxygen via nasal cannula satting 96%. Blood workup showed no leukocytosis. Hemoglobin is 8.0 which is around baseline and platelets 180.-mild hypokalemia of 2.3. BUN is 93 and creatinine is 0.92. There is no lactic acidosis. Troponin is 24 then 28.0 (around baseline). Pro BNP is 21,253.2. Viral testing negative for influenza, RSV and COVID. CXR showed persistent right basilar density favored to represent combination of pleural effusion atelectasis however superimposed infection can not be ruled out. ECG showed atrial fibrillation with normal ventricular response, heart rate 69 beats per minute. ED tx: Calcium gluconate 2 g IV, furosemide 40 mg IV, azithromycin 500 mg IV, ceftriaxone 2 g IV Review of Systems Review of Systems: All 12 systems were reviewed and normal except as noted in HPI. [facility] Medical History Anemia in chronic kidney disease (CKD) Hypertension Uncontrolled hypertension Congestive heart failure CKD (chronic kidney disease) CHF (congestive heart failure) CKD (chronic kidney disease) stage 4, GFR 15-29 ml/min Obesity (BMI 30.0-34.9) Cardiomyopathy Stroke Chronic atrial fibrillation CKD (chronic kidney disease) Former smoker Depression Diabetes High cholesterol Family History Father No problems noted. Mother Diabetes Hypertension Cancer Son No problems noted. Son No problems noted. Son No problems noted. Daughter No problems noted. Daughter No problems noted. Surgical History History of aneurysm History of shoulder surgery Social History Household Members: None Household Members Other:: Housing: Apartment Are you a primary landcare officer to a significant other at home: No Do you presently have visiting nurse or other home services: Yes (3 times a week/ pt cannot recall name of services) Unable to assess alcohol history related to: Unknown Alcohol intake: never Comment: Sitter at bedside Patient Tobacco Use Status: Former Tobacco user Smoked in Last 30 Days: No Use of substances other than those prescribed or required for medical reasons: No Substance Use Type: Marijuana Advance Directives: Yes Advance Directives on File: Yes Advance Directives Date on File: 12/17/24 Do you have a plan to hurt others: No Plan Nutrition Risks: No Nutritional Risk service: No Current occupational status: disabled Meds Allergies Allergy/AdvReac Type Severity Reaction Status Date / Time No Known Allergies (No Known Allergy Verified 05/03/25 22:17 Allergies*) Active Medications: Current Medications Calcium Gluconate (Calcium Gluconate) 2 gm in 100 mls @ 400 mls/hr IV ONCE ONE Stop: 05/04/25 02:03 Home Medications ?Medication ?Instructions ?Recorded ?Confirmed ?Last Taken ?Type blood-glucose meter #1 ea 05/14/20 01/14/24 Unknown History lancets #100 ea 05/14/20 01/14/24 Unknown History atorvastatin 40 mg tablet 40 mg PO DAILY 12/19/22 04/12/25 04/06/25 History apixaban 2.5 mg tablet (Eliquis) 2.5 mg PO BID 12/05/24 04/12/25 04/06/25 History calcitriol 0.25 mcg capsule 0.25 mcg PO Q48H 03/30/25 04/12/25 Unknown History ferrous sulfate 325 mg (65 mg 325 mg PO BID 03/30/25 04/12/25 04/06/25 History iron) tablet Physical Exam Vital Signs and Narrative: Vital Signs: Last Vital Signs Temp 97.9 F 05/04/25 01:45 Pulse 65 05/04/25 01:45 Resp 15 05/04/25 01:45 BP 128/61 05/04/25 01:45 Pulse Ox 96 05/04/25 01:45 O2 Del Method Nasal Cannula 05/04/25 01:45 O2 Flow Rate 2 05/04/25 01:45 Oxygen Flow Rate 4 05/03/25 22:15 BMI result Body Mass Index 31.2 Constitutional - Awake and Alert, No apparent distress. Nasal cannula in place. HEENT - PERRLA, EOMI Heart - S1S2, RRR, No edema Lungs - Normal lung expansion, Normal respiratory effort, No respiratory distress. Tachypnea. Right lung: Decreased breath sound at base. Left lung: Clear. No crackles, rhonchi or wheezing. Abdomen - NT / ND; +BS; No rebound or guarding - No CVA tenderness Extremities: Musculoskeletal - generalized atrophy M Skin - Warm/Dry Neurological - Alert & oriented x3 feeling well and extremities spontaneously. Psychological - Appropriate affect Results Labs 05/04/25 04:30 05/04/25 04:30 Labs: Laboratory Results - last 24 hr 05/03/25 05/03/25 22:00 22:26 MCV 86.2 MCH 25.1 L MCHC 29.1 L RDW 17.8 H Plt Count 180 MPV 10.0 Immature Gran % (Auto) 0.4 Neut % (Auto) 77.8 H Lymph % (Auto) 12.4 L [place] % (Auto) 7.5 Eos % (Auto) 1.7 Baso % (Auto) 0.2 Lymph # (Auto) 0.6 L [place] # (Auto) 0.4 Eos # (Auto) 0.1 Baso # (Auto) 0.0 Abs Immat Gran (auto) 0.02 Absolute Neuts (auto) 4.0 Absolute Nucleated RBC 0.000 Nucleated RBC % (auto) 0.0 Anion Gap 16 Estim Creat Clear Calc 25.3 Estimated GFR 21 Random Glucose 172 H Lactic Acid 1.3 Calcium 8.5 D Magnesium 1.9 Total Bilirubin 0.7 AST 45 H ALT 30 Alkaline Phosphatase 143 H Troponin I High Sens 24.0 NT-Pro-B Natriuret Pep 59841.5 H Total Protein 7.7 Albumin 3.3 L Influenza Type A (PCR) NEGATIVE Influenza Type B (PCR) NEGATIVE RSV RNA Qual (PCR) NEGATIVE SARS-CoV-2 RNA (RT-PCR) NEGATIVE Assessment and Plan (1) Acute exacerbation of CHF (congestive heart failure): Qualifiers: Heart failure type: unspecified Qualified Code(s): I50.9 - Heart failure, unspecified Status: Acute Plan Ethan Cristina is a 74 y/o with a PMHx significant for multiple hospitalization for chronic hypoxic respiratory failure (noncompliant with home oxygen) who presents with: Acute on chronic hypoxic respiratory failure secondary to acute on chronic systolic and diastolic congestive heart failure and recurrent right pleural effusion, ? Superimposed pneumonia. Telemetry. Pulse oximetry. Supplemental O2 to keep O2 sats > 90%. Continue Lasix 40 mg IV b.i.d. Daily weight. I&O. Low-salt diet. Rechecked TTE. IR consult for therapeutic paracentesis. Chest pain, resolved. Likely secondary to above. Troponin at baseline x2. Aspirin given by ED; will continue. Continue statin. Nitroglycerin sublingual as needed. Cardiology consult. CKD stage 4 with secondary hyperparathyroidism; creatinine increasing. Hold metolazone. Avoid nephrotoxic agents if possible. Hold metolazine for now. Continue to monitor renal function. Hyperkalemia, mild. Secondary to above. K level 5.3. No peaked T-waves. Lasix IV given. Continue to monitor. History of type 2 diabetes mellitus. Not on meds. Last hemoglobin A1c 5.5%. Insulin sliding scale for now and diabetic diet. Persistent a-fib, rate controlled. Continue Eliquis and calvarial. Essential hypertension. Continue carvedilol and amlodipine. Hyperlipidemia. Continue statin. GERD. Continue PPI. Repeated AMAs. Has competency per psych. He told me that he is not planning to leave AMA this time. Chronic wounds to the lower extremities. Wound consult. Code status: Full DVT prophylaxis: On Eliquis Med rec pending Patient will need hospitalization for at least 2 midnights for acute hypoxic respiratory failure secondary to pleural effusion no acute CHF treatment with IV diuresis and supplemental oxygen. Patient will need continuous cardiac and pulse oximetry monitoring. This note is constructed using voice recognition software. While every effort has been made to ensure accuracy, early childhood teacher assistant errors may have been included. Quality Stroke Does the patient have a stroke diagnosis?: No VTE Prior VTE?: No VTE Risk Level:: Medical - moderate - high VTE Device Contraindication: Treatment Not Indicated VTE Drug Contraindication: N/A - Med Ordered
[2025-05-04] MEDS: Calcium Gluconate/NaCl,Iso-Osm 2 GM/100 ML PLAST..BAG IV (02:08)
--- NOTE | 2025-05-04 02:12 | PC.NURSE ---
medicated per Dr. Jair brownlee into assess pt.
[2025-05-04 02:16] LABS: Troponin-I High Sensitivity 28.0 ng/L (<3.5-35.0)
--- NOTE | 2025-05-04 02:55 | PC.NURSE ---
pt has positive pulse to bilateral legs, leg are draining serosanguineous drainage, no blood noted
--- NOTE | 2025-05-04 03:00 | PC.NURSE ---
Assumed care of pt at 0300, report received from DMITRY White. PT resting quietly with HOB at 90 degrees, offered PT to drop bed down some, pt declined states he is comfortable at this time. Call geiger within reach. plan of care ongoing
--- NOTE | 2025-05-04 03:06 | PC.NURSE ---
verbal report given to DMITRY Gilbert
--- NOTE | 2025-05-04 04:30 | PC.NURSE ---
Pt medicated as per oct. VSS. 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 Pt denies any pain at this time. bed locked in lowest postion, call geiger within reach. Plan of care ongoing.
[2025-05-04 05:09] LABS: MANUAL DIFF FLAG NO
[2025-05-04 05:10] LABS: Hematocrit 29.3 % (42.0-52.0); Hemoglobin 8.5 g/dl (14.0-18.0); Imm Gran Abs Auto 0.02 X10*3/uL (0.00-0.03); Imm Gran Pct Auto 0.4 % (0.0-0.4); Lymphocytes Absolute Auto 0.8 X10*3/uL (1.2-4.9); Mean Corpuscular HGB Conc 29.0 g/dl (31.0-36.0); Mean Corpuscular Hemoglobin 25.1 pg (27.0-33.0); Mean Corpuscular Volume 86.7 fL (80.0-98.0); NRBC Abs Auto 0.000 X10*3/uL (0.0-0.012); NRBC Pct Auto 0.0 /100WBC (0.0-0.2); Platelet Count 166 X10*3/uL (160-400); Red Blood Count 3.38 X10*6/uL (4.60-5.80); White Blood Count 5.6 X10*3/uL (4.8-10.8)
[2025-05-04 05:27] LABS: Anion Gap 15 (12-20); Blood Urea Nitrogen 91 mg/dL (9-16); Calcium 9.1 mg/dL (8.4-10.2); Carbon Dioxide 21 mmol/L (22-29); Chloride 108 mmol/L (96-108); Creatinine Clr Calc Pharmacy 25.9; Estimated Glomerular Filt Rate 22; Magnesium 1.9 mg/dL (1.6-2.6); Potassium 4.5 mmol/L (3.3-5.1); Sodium 139 mmol/L (135-145)
--- NOTE | 2025-05-04 07:00 | CA_ITS ---
Transthoracic Echocardiogram Patient (Last, First, Middle): Ethan Cristina, Gender: Male Date of : 1950 Age: 74 Procedure Date: 05/04/2025 Procedure Type: Transthoracic Echocardiogram Location: ER Height: 172.72 cm Weight: 92.99 kg BSA: 2.07 m2 Heart Rate: bpm BP: 109 / 63 mmHg Corrugated Sheet Material Sheeter: Referring MD: Michelle Schuster MD Symptoms: CHF Study Quality: Adequate ECG Rhythm: Atrial Fibrillation Conclusions: - Normal left ventricular cavity size. There is mildly increased left ventricular wall thickness. The left ventricular systolic function is mildly decreased. The visually estimated ejection fraction is between 40-45%. - The basal inferoseptal segment is hypokinetic. - Mildly increased right ventricular cavity size. There is moderately decreased right ventricular systolic function. - The left atrium is severely dilated. The right atrium is severely dilated. - Severe pulmonary hypertension is present. - There is a small pericardial effusion. Findings Left Ventricle Normal left ventricular cavity size. There is mildly increased left ventricular wall thickness. The left ventricular systolic function is mildly decreased. The visually estimated ejection fraction is between 40-45%. There is evidence of regional wall motion abnormalities. Diastolic function is indeterminate on the basis of available data. Wall Motion Rest Echo Findings The basal inferoseptal segment is hypokinetic. Right Ventricle Mildly increased right ventricular cavity size. There is moderately decreased right ventricular systolic function. Atria The left atrium is severely dilated. The right atrium is severely dilated. Aortic Valve Normal aortic valve structure and function. There is no aortic valve stenosis. There is no aortic valve regurgitation. Mitral Valve Normal mitral valve structure and function. There is mild to moderate mitral valve regurgitation. There is no mitral valve stenosis. Pulmonic Valve The pulmonic valve is normal. There is trace pulmonic valve regurgitation. Tricuspid Valve Normal tricuspid valve structure. There is mild to moderate tricuspid valve regurgitation. The right ventricular systolic pressure is 57 mmHg. Significantly elevated right atrial pressure. Severe pulmonary hypertension is present. Great Vessels The aorta was not well visualized. Venous The inferior vena cava is dilated and collapses less than 50% with inspiration. Pericardium/Pleural There is a small pericardial effusion. Prior Study Comparison Changes noted compared to prior study dated: 12/05/2024. EF 40-45%, Mild to mod RV dysfunction, Severe Pulm HTN. Measurements 2D Linear Measurements IVSd: 1.11 0.6-0.9/0.6-1.0 cm LVIDd: 5.51 3.9-5.3/4.2-5.9 cm LVIDd Index: 2.66 2.4-3.2/2.2-3.1 cm/m2 LVIDs: 4.54 2.0-3.6 cm LVPWd: 1.08 0.7-1.1 cm Ao Root: 3.30 2.1-3.5 cm LA Diam: 4.80 2.7-3.8/3.0-4.0 cm LAIDs Index: 2.32 1.5-2.3 cm/m2 LV Mass: 300.82 67-162/88-224 g LV Mass Index: 145.32 43-95/49-115 g/m2 LVOT Diam: 2.20 3.0+(-)1.3 cm 2D Systolic Function EF 4C: 51.60 >55% EF 2C: 56.20 >55% EF BiP: 50.90 >55% Mitral Valve MV Pk E: 0.88 MV Decel Time: 144.00 E'Lateral: 9.57 E'Medial: 7.29 E/E' Med: 12.10 E/E' Lat: 9.20 PHT: 42.00 MVA PHT: 5.24 Decel Jack: 6.11 Aortic Valve AoV Pk Rufus: 1.20 AoV Mn Rufus: 0.81 AoV VTI: 0.30 AoV Pk Grad: 6.00 Aov Mn Grad: 3.00 VIKTORIA Cont.VTI: 2.39 LVOT LVOT Pk Rufus: 0.82 LVOT Mn Rufus: 0.53 LVOT VTI: 0.19 LVOT Pk Grad: 3.00 LVOT Mn Grad: 1.00 LVOT Diam: 2.20 LVOT Area: 3.80 Diastolic Function MV Pk E: 0.88 E'Medial: 7.29 E/E' Med: 12.10 E' Laterial: 9.57 E/E' Lat: 9.20 Right Ventricle TAPSE (mm): 23.00 TVS' Rufus: 9.00 Tricuspid Valve TR Pk Rufus: 3.24 TR Pk Grad: 42.00 RA Press: 15.00 RVSP: 57.00 Great Vessels Aorta Ao Root-2D: 3.30 2.0-3.7 cm Pulmonary Valve PV Pk Rufus: 0.90 Peak PV Grad: 3.00 Updated in Other Vendor System with Status of Final Ash Pedersen MD electronically signed on 05/04/2025 8:57:11 PM with status of Final
[2025-05-04 07:23] LABS: Glucose, Whole Blood 109 mg/dL (60-115)
[2025-05-04] MEDS: Aspirin Enteric Coated 81 MG TABLET.DR PO (08:47)
[2025-05-04] MEDS: 0.9 % Sodium Chloride Flush 3 ML SYRINGE IVFLUSH (08:52)
[2025-05-04] MEDS: Furosemide 40 MG/4 ML VIAL IVPUSH ×2 (08:53→18:26)
--- NOTE | 2025-05-04 09:04 | PHA.MEDREC ---
Addendum entered by Cornell Cruz RPh 05/04/25 09:19: Reviewed by [facility]. Stoped Furosemide 40 changed to Furosemide 80 mg BID. Original Note: Pharmacy Consult ? Medication Reconciliation Pharmacy has completed the medication reconciliation. Patient is a poor historian. Utilized claims and discharge packet from 04/21/25 to confirm med list. medication change from Discharge packet are to Stop Lisinopril 40 mg, Furosemide 40 changed to Furosemide 80 mg daily.
[2025-05-04 12:25] LABS: Glucose, Whole Blood 139 mg/dL (60-115)
--- NOTE | 2025-05-04 13:08 | P.PNIM_ITS ---
Subjective Subjective Date of Service: 05/04/25 Interval History: Complains of increased swelling in legs Denies shortness or breath or difficulty breathing Currently no chest pain or pressure Review of Systems Review of Systems: Yes all other systems are reviewed and are negative Physical Exam 2 Exam: Exam: General: AOx3, no acute distress Resp: Bibasilar crackles CVS: Irregularly irregular rhythm GI: +BS, NT, no distention Skin: Warm, dry Neuro: Cranial nerves II-XII grossly intact bilaterally. Motor grossly intact bilaterally Extremities: 2+ bilateral pitting edema with areas of skin tears and excoriation, as pictured in admission H&P Psych: Overall calm and cooperative, though occasionally agitated/anxious Vital Signs: Vital Signs: Last Vital Signs Temp 97.9 F 05/04/25 09:05 Pulse 65 05/04/25 09:05 Resp 16 05/04/25 09:05 BP 105/71 05/04/25 09:05 Pulse Ox 94 05/04/25 09:05 O2 Del Method Nasal Cannula 05/04/25 09:05 O2 Flow Rate 2 05/04/25 09:05 Oxygen Flow Rate 4 05/03/25 22:15 BMI result Body Mass Index 31.3 Objective Data Active Medications Acetaminophen (Acetaminophen 325 Mg Tablet) 975 mg PO Q6H PRN PRN Reason: Pain, Mild 1-3,fever,headache Last Admin: 05/04/25 08:46 Dose: 975 mg Documented By: RAYMUNDO Aspirin (Aspirin Enteric Coated 81 Mg Tablet.) 81 mg PO DAILY [facility] Last Admin: 05/04/25 08:47 Dose: 81 mg Documented By: RAYMUNDO Calcium Carbonate (Calcium Carbonate 750 Mg Tab.Chew) 750 mg PO Q4H PRN PRN Reason: Heartburn Dextrose (Dextrose 50 % 25 Gm/50 Ml Syringe) 25 gm IVPUSH Q15M PRN; Protocol PRN Reason: per Hypoglycemia Standing Ord. Furosemide (Furosemide 40 Mg/4 Ml Vial) 40 mg IVPUSH BID@0900,1800 [facility]; Protocol Last Admin: 05/04/25 08:53 Dose: 40 mg Documented By: RAYMUNDO Glucose (Glucose Gel 15 Gm Gel..Gram.) 15 gm PO Q15M PRN; Protocol PRN Reason: per Hypoglycemia Standing Ord. Piperacillin Sod/Tazobactam (Sod 3.375 gm/ Sodium Chloride) 50 mls @ 100 mls/hr IV Q6H [facility] Last Infusion: 05/04/25 11:05 Dose: Infused Documented By: RAYMUNDO Insulin Human Lispro (Insulin Lispro 100 Unit/Ml 3 Ml Vial) 0 unit SUBCUT QIDACHS [facility]; Protocol Last Admin: 05/04/25 07:55 Dose: Not Given Documented By: RAYMUNDO Non-Admin Reason: No Insulin Coverage Comments: POC 109- No insulin coverage needed Magnesium Hydroxide (Milk Of Magnesia 30 Ml Oral.Susp) 30 ml PO DAILY PRN PRN Reason: Constipation Melatonin (Melatonin 3 Mg Tablet) 6 mg PO BEDTIME PRN PRN Reason: Insomnia Nitroglycerin (Nitroglycerin 0.4 Mg Tab.Subl) 0.4 mg SUBLINGUAL Q5MX3 PRN PRN Reason: Chest Pain Sodium Chloride (0.9 % Sodium Chloride Flush 3 Ml Syringe) 3 ml IVFLUSH QSHIFT [facility] Last Admin: 05/04/25 08:52 Dose: 3 ml Documented By: RAYMUNDO Labs 05/04/25 04:30 05/04/25 04:30 Labs: Laboratory Results - last 24 hr 05/03/25 05/03/25 05/04/25 22:00 22:26 01:51 MCV 86.2 MCH 25.1 L MCHC 29.1 L RDW 17.8 H Plt Count 180 MPV 10.0 Immature Gran % (Auto) 0.4 Neut % (Auto) 77.8 H Lymph % (Auto) 12.4 L [place] % (Auto) 7.5 Eos % (Auto) 1.7 Baso % (Auto) 0.2 Lymph # (Auto) 0.6 L [place] # (Auto) 0.4 Eos # (Auto) 0.1 Baso # (Auto) 0.0 Abs Immat Gran (auto) 0.02 Absolute Neuts (auto) 4.0 Absolute Nucleated RBC 0.000 Nucleated RBC % (auto) 0.0 Anion Gap 16 Estim Creat Clear Calc 25.3 Estimated GFR 21 POC Glucose Random Glucose 172 H Lactic Acid 1.3 Calcium 8.5 D Magnesium 1.9 Total Bilirubin 0.7 AST 45 H ALT 30 Alkaline Phosphatase 143 H Troponin I High Sens 24.0 28.0 NT-Pro-B Natriuret Pep 11674.5 H Total Protein 7.7 Albumin 3.3 L Influenza Type A (PCR) NEGATIVE Influenza Type B (PCR) NEGATIVE RSV RNA Qual (PCR) NEGATIVE SARS-CoV-2 RNA (RT-PCR) NEGATIVE 05/04/25 05/04/25 05/04/25 04:30 07:20 12:21 MCV 86.7 MCH 25.1 L MCHC 29.0 L RDW 17.9 H Plt Count 166 MPV 10.0 Immature Gran % (Auto) 0.4 Neut % (Auto) 71.5 Lymph % (Auto) 13.8 L [place] % (Auto) 11.9 H Eos % (Auto) 2.0 Baso % (Auto) 0.4 Lymph # (Auto) 0.8 L [place] # (Auto) 0.7 Eos # (Auto) 0.1 Baso # (Auto) 0.0 Abs Immat Gran (auto) 0.02 Absolute Neuts (auto) 4.0 Absolute Nucleated RBC 0.000 Nucleated RBC % (auto) 0.0 Anion Gap 15 Estim Creat Clear Calc 25.9 Estimated GFR 22 POC Glucose 109 139 H Random Glucose 80 Lactic Acid Calcium 9.1 D Magnesium 1.9 Total Bilirubin AST ALT Alkaline Phosphatase Troponin I High Sens NT-Pro-B Natriuret Pep Total Protein Albumin Influenza Type A (PCR) Influenza Type B (PCR) RSV RNA Qual (PCR) SARS-CoV-2 RNA (RT-PCR) Assessment and Plan (1) Acute on chronic heart failure with preserved ejection fraction (HFpEF): Status: Acute Plan Ethan Cristina is a 74 y/o with a PMHx significant for multiple hospitalization for chronic hypoxic respiratory failure (noncompliant with home oxygen) who presents with: Acute on chronic hypoxic respiratory failure secondary to acute on chronic systolic and diastolic congestive heart failure and recurrent right pleural effusion. Telemetry. Pulse oximetry. Supplemental O2 to keep O2 sats > 90%. Continue Lasix 40 mg IV b.i.d. Daily weight. I&O. Low-salt diet. Rechecked TTE. IR consult for therapeutic paracentesis. Chest pain, resolved. Likely secondary to above. Has chronically complained of atypical chest pain with the past few months. Troponin at baseline x2. Aspirin given by ED; will continue. Continue statin. Nitroglycerin sublingual as needed. Cardiology consult. CKD stage 4 with secondary hyperparathyroidism; creatinine increasing. Hold metolazone. Avoid nephrotoxic agents if possible. Hold metolazine for now. Continue to monitor renal function. Hyperkalemia, mild. Secondary to above. K level 5.3. No peaked T-waves. Lasix IV given. Continue to monitor. History of type 2 diabetes mellitus. Not on meds. Last hemoglobin A1c 5.5%. Insulin sliding scale for now and diabetic diet. Persistent a-fib, rate controlled. Continue Eliquis and calvarial. Essential hypertension. Continue carvedilol and amlodipine. Hyperlipidemia. Continue statin. GERD. Continue PPI. Repeated AMAs. Has competency per psych. He told me that he is not planning to leave AMA this time. Chronic wounds to the lower extremities. Wound consult. Code status: Full DVT prophylaxis: On Eliquis Med rec pending Patient will need hospitalization for at least 2 midnights for acute hypoxic respiratory failure secondary to pleural effusion no acute CHF treatment with IV diuresis and supplemental oxygen. Patient will need continuous cardiac and pulse oximetry monitoring. This note is constructed using voice recognition software. While every effort has been made to ensure accuracy, foreign language teacher errors may have been included. Quality Stroke Does the patient have a stroke diagnosis?: No VTE Prior VTE?: No VTE Risk Level:: Medical - moderate - high VTE Device Contraindication: Treatment Not Indicated VTE Drug Contraindication: N/A - Med Ordered
[2025-05-04 13:09] LABS: Glucose, Whole Blood 144 mg/dL (60-115)
--- NOTE | 2025-05-04 13:09 | MHC.CM.PN ---
IMM 05/04/25, Pt. lives alone, he does not have home health services, for DME, he has a walker, cane and CPAP machine. PCP confirmed: Blanca Anderson. HCP is on file and confirmed: Adalberto. Pt. can arrange a ride home at [place], DCP: home with services. CM to follow for DC needs.
--- NOTE | 2025-05-04 14:02 | PC.NURSE ---
Pt requesting to be d/c- raising voice at this RN. Pt informed multiple times on plan/why he is here, agrees to stay then requests to be d/c. VIRAJ Robbins made aware of situation. Pt offers no other complaints at this time. Call geiger within reach, all needs met at this time.
[2025-05-04 18:20] LABS: Glucose, Whole Blood 101 mg/dL (60-115)
--- NOTE | 2025-05-04 19:40 | PC.NURSE ---
Pt yelling out multiple times requesting to leave, pt educated on the how sick he is and that he requires oxygen. updated on plan of care to drain fluid in lungs tomorrow. Spoke with Dr. Bo who will call daughter to help educate pt on importance of staying in hospital
--- NOTE | 2025-05-04 19:43 | PC.NURSE ---
spoke with pt again about the dangers of leaving against medical advice, became tearful but did state he would stay
[2025-05-04] MEDS: Ferrous Sulfate 324 MG TABLET.DR PO (20:21)
[2025-05-04 20:24] LABS: Glucose, Whole Blood 98 mg/dL (60-115)
[2025-05-05] VITALS (8 sets, daily range): BP systolic 129–160; BP diastolic 50–87; PULSE 54–68; RESP 18–20; TEMP 36.2–36.9; O2SAT 97–100
[2025-05-05] MEDS: 0.9 % Sodium Chloride Flush 3 ML SYRINGE IVFLUSH ×3 (00:01→15:43)
[2025-05-05] MEDS: Furosemide 40 MG/4 ML VIAL IVPUSH (10:12)
[2025-05-05] MEDS: Aspirin Enteric Coated 81 MG TABLET.DR PO (10:13)
[2025-05-05] MEDS: Ferrous Sulfate 324 MG TABLET.DR PO ×2 (10:13→21:47)
[2025-05-05 11:43] LABS: Glucose, Whole Blood 83 mg/dL (60-115)
[2025-05-05 12:12] LABS: Anion Gap 15 (12-20); Blood Urea Nitrogen 103 mg/dL (9-16); Calcium 8.5 mg/dL (8.4-10.2); Carbon Dioxide 25 mmol/L (22-29); Chloride 106 mmol/L (96-108); Creatinine Clr Calc Pharmacy 23.0; Estimated Glomerular Filt Rate 19; Potassium 5.0 mmol/L (3.3-5.1); Sodium 141 mmol/L (135-145)
--- NOTE | 2025-05-05 15:10 | HO.PM.IMPN ---
Subjective Subjective Date of Service: 05/05/25 Interval History: Diuresing well Denies any acute medical complaints No SOB Denies leg pain Continues to ask about leaving, though willing to stay if medically appropriate Review of Systems Review of Systems: Yes all other systems are reviewed and are negative Physical Exam Exam: Exam: General: AOx3, no acute distress Resp: Lungs CTA CVS: Irregularly irregular rhythm GI: +BS, NT, no distention Skin: Warm, dry Neuro: Cranial nerves II-XII grossly intact bilaterally. Motor grossly intact bilaterally Extremities: 1+ bilateral pitting edema; legs covered with clean and dry bandages Psych: Overall calm and cooperative, though occasionally agitated/anxious Vital Signs: Vital Signs: Last Vital Signs Temp 97.7 F 05/05/25 07:43 Pulse 65 05/05/25 14:09 Resp 18 05/05/25 14:09 BP 129/53 L 05/05/25 14:09 Pulse Ox 100 05/05/25 14:09 O2 Del Method Nasal Cannula 05/05/25 14:09 O2 Flow Rate 2 05/05/25 14:09 Oxygen Flow Rate 4 05/03/25 22:15 BMI result Body Mass Index 31.3 Objective Data Active Medications Acetaminophen (Acetaminophen 325 Mg Tablet) 975 mg PO Q6H PRN PRN Reason: Pain, Mild 1-3,fever,headache Last Admin: 05/05/25 04:36 Dose: 975 mg Documented By: SKYE Amlodipine Besylate (Amlodipine Besylate 5 Mg Tablet) 5 mg PO DAILY [facility]; Protocol Last Admin: 05/05/25 10:14 Dose: 5 mg Documented By: XI Apixaban (Apixaban 2.5 Mg Tablet) 2.5 mg PO BID [facility] Last Admin: 05/05/25 10:14 Dose: 2.5 mg Documented By: XI Aspirin (Aspirin Enteric Coated 81 Mg Tablet.) 81 mg PO DAILY [facility] Last Admin: 05/05/25 10:13 Dose: 81 mg Documented By: XI Atorvastatin Calcium (Atorvastatin Calcium 40 Mg Tablet) 40 mg PO DAILY [facility] Last Admin: 05/05/25 10:14 Dose: 40 mg Documented By: XI Calcitriol (Calcitriol 0.25 Mcg Capsule) 0.25 mcg PO Q48H [facility] Last Admin: 05/04/25 20:46 Dose: 0.25 mcg Documented By: SKYE Calcium Carbonate (Calcium Carbonate 750 Mg Tab.Chew) 750 mg PO Q4H PRN PRN Reason: Heartburn Carvedilol (Carvedilol 6.25 Mg Tablet) 6.25 mg PO BID [facility]; Protocol Last Admin: 05/05/25 10:15 Dose: Not Given Documented By: XI Non-Admin Reason: Decreased Heart Rate Dextrose (Dextrose 50 % 25 Gm/50 Ml Syringe) 25 gm IVPUSH Q15M PRN; Protocol PRN Reason: per Hypoglycemia Standing Ord. Ferrous Sulfate (Ferrous Sulfate 324 Mg Tablet.) 324 mg PO BID [facility] Last Admin: 05/05/25 10:13 Dose: 324 mg Documented By: XI Furosemide (Furosemide 40 Mg/4 Ml Vial) 40 mg IVPUSH BID@0900,1800 [facility]; Protocol Last Admin: 05/05/25 10:12 Dose: 40 mg Documented By: XI Glucose (Glucose Gel 15 Gm Gel..Gram.) 15 gm PO Q15M PRN; Protocol PRN Reason: per Hypoglycemia Standing Ord. Piperacillin Sod/Tazobactam (Sod 3.375 gm/ Sodium Chloride) 50 mls @ 100 mls/hr IV Q6H [facility] Last Infusion: 05/05/25 10:42 Dose: Infused Documented By: XI Insulin Human Lispro (Insulin Lispro 100 Unit/Ml 3 Ml Vial) 0 unit SUBCUT QIDACHS [facility]; Protocol Last Admin: 05/05/25 11:46 Dose: Not Given Documented By: DAQUAN Non-Admin Reason: No Insulin Coverage Magnesium Hydroxide (Milk Of Magnesia 30 Ml Oral.Susp) 30 ml PO DAILY PRN PRN Reason: Constipation Melatonin (Melatonin 3 Mg Tablet) 6 mg PO BEDTIME PRN PRN Reason: Insomnia Nitroglycerin (Nitroglycerin 0.4 Mg Tab.Subl) 0.4 mg SUBLINGUAL Q5MX3 PRN PRN Reason: Chest Pain Omeprazole (Omeprazole 40 Mg Capsule.) 40 mg PO BID@0630,1630 [facility] Last Admin: 05/05/25 05:30 Dose: 40 mg Documented By: SKYE Sodium Chloride (0.9 % Sodium Chloride Flush 3 Ml Syringe) 3 ml IVFLUSH QSHIFT [facility] Last Admin: 05/05/25 07:29 Dose: 3 ml Documented By: XI Labs 05/05/25 10:07 05/05/25 10:07 Labs: Laboratory Results - last 24 hr 05/04/25 05/04/25 05/05/25 18:03 20:18 07:28 MCV MCH MCHC RDW Plt Count MPV Absolute Nucleated RBC Nucleated RBC % (auto) Anion Gap Estim Creat Clear Calc Estimated GFR POC Glucose 101 98 138 H Random Glucose Calcium 05/05/25 05/05/25 10:07 11:41 MCV 85.3 MCH 25.7 L MCHC 30.2 L RDW 18.0 H Plt Count 154 L MPV 9.4 Absolute Nucleated RBC 0.000 Nucleated RBC % (auto) 0.0 Anion Gap 15 Estim Creat Clear Calc 23.0 Estimated GFR 19 POC Glucose 83 Random Glucose 97 Calcium 8.5 D Microbiology Microbiology Results: Microbiology 05/03/25 22:26 Blood Culture - Preliminary Blood - Venous No growth after 24 hours. 05/03/25 22:26 Blood Culture - Preliminary Blood - Venous No growth after 24 hours. Assessment and Plan (1) Acute exacerbation of CHF (congestive heart failure): Status: Acute Plan Ethan Cristina is a 74 y/o with a PMHx significant for multiple hospitalization for chronic hypoxic respiratory failure (noncompliant with home oxygen) who presents with: Acute on chronic hypoxic respiratory failure secondary to acute on chronic systolic and diastolic congestive heart failure and recurrent right pleural effusion. Telemetry. Pulse oximetry. Supplemental O2 to keep O2 sats > 90%. Has been diuresed with Lasix 40 mg IV b.i.d., currently on hold due to worsening kidney function. Daily weight. I&O. Low-salt diet. Rechecked TTE. IR consult for therapeutic paracentesis. Chest pain, resolved. Likely secondary to above. Has chronically complained of atypical chest pain with the past few months. Troponin at baseline x2. Aspirin given by ED; will continue. Continue statin. Nitroglycerin sublingual as needed. Cardiology consult. CKD stage 4 with secondary hyperparathyroidism; creatinine increasing. Hold metolazone. Avoid nephrotoxic agents if possible. Hold metolazine for now. Continue to monitor renal function. Creatinine noted to increase. from 2.85-3.21 today. Will hold diuretics and recheck tomorrow. Hyperkalemia, mild. Secondary to above. K level 5.3. No peaked T-waves. Lasix IV given. Continue to monitor. History of type 2 diabetes mellitus. Not on meds. Last hemoglobin A1c 5.5%. Insulin sliding scale for now and diabetic diet. Persistent a-fib, rate controlled. Continue Eliquis and carvedilol. Essential hypertension. Continue carvedilol and amlodipine. Hyperlipidemia. Continue statin. GERD. Continue PPI. Repeated AMAs. Has competency per psych. He told me that he is not planning to leave AMA this time. Chronic wounds to the lower extremities. Wound consult. Code status: Full DVT prophylaxis: On Eliquis Pt needs continue hospitalization for continued IV diuresing and close monitoring of electrolytes and cardiac function. Quality Stroke Does the patient have a stroke diagnosis?: No VTE Prior VTE?: No VTE Risk Level:: Medical - moderate - high VTE Device Contraindication: Treatment Not Indicated VTE Drug Contraindication: N/A - Med Ordered
[2025-05-05 15:58] LABS: Glucose, Whole Blood 115 mg/dL (60-115)
[2025-05-05 20:48] LABS: Glucose, Whole Blood 105 mg/dL (60-115)
[2025-05-06] VITALS (9 sets, daily range): BP systolic 125–166; BP diastolic 61–76; PULSE 62–76; RESP 16–20; TEMP 36.3–36.6; O2SAT 91–100
--- NOTE | 2025-05-06 05:30 | PC.NURSE ---
Addendum entered by Ashly De León RN 05/06/25 05:36: patient also adamantly refusing for BLE dressings to be kept on overnight . pt educated on wound care and the need for dressings on his wounds due to them weeping, etc. and for them to heal properly. patient stating he needs them to have fresh air, take them off now! at this time, patient refusing BLE dressings, BLE GELA. Original Note: patient refusing bed alarm, patient educated on being a high fall risk and still adamantly refusing. im not a kid and nothing is going to happen to me, turn off that alarm patient is alert and oriented x4. patient educated multiple times on fall precautions and still refusing bed alarm. bed locked and in lowest position. bed alarm not activated at this time. rn hemodialysis charge aware.
[2025-05-06 07:00] LABS: Glucose, Whole Blood 117 mg/dL (60-115)
[2025-05-06 08:03] LABS: Hematocrit 26.4 % (42.0-52.0); Hemoglobin 7.9 g/dl (14.0-18.0); Mean Corpuscular HGB Conc 29.9 g/dl (31.0-36.0); Mean Corpuscular Hemoglobin 25.3 pg (27.0-33.0); Mean Corpuscular Volume 84.6 fL (80.0-98.0); NRBC Abs Auto 0.000 X10*3/uL (0.0-0.012); NRBC Pct Auto 0.0 /100WBC (0.0-0.2); Platelet Count 158 X10*3/uL (160-400); Red Blood Count 3.12 X10*6/uL (4.60-5.80); White Blood Count 4.4 X10*3/uL (4.8-10.8)
[2025-05-06 08:16] LABS: NT Pro B Type Natriuretic Pept 16174.3 pg/mL (<300)
[2025-05-06 08:19] LABS: Anion Gap 15 (12-20); Blood Urea Nitrogen 101 mg/dL (9-16); Calcium 8.4 mg/dL (8.4-10.2); Carbon Dioxide 24 mmol/L (22-29); Chloride 106 mmol/L (96-108); Creatinine Clr Calc Pharmacy 22.4; Estimated Glomerular Filt Rate 19; Potassium 4.4 mmol/L (3.3-5.1); Sodium 141 mmol/L (135-145)
--- NOTE | 2025-05-06 10:36 | HO.WOUND ---
Wound Consult: Initial 74yr old male [place] [facility] - See progress notes and H&P for detailed history. Wound consult placed for bilateral legs. Patient agreeable to assessment and photo documentation. Right Leg Right Posterior Leg Left Leg Left Posterior Leg Etiology: bilateral legs venous stasis ulcers Wound Bed:scattered open areas with moist pink wound beds - some areas with dry stable scabs noted Drainage / Odor: serous, scant, no odor Edges: ? attached and irregular Mynor wound: ? No Induration, Fluctuance or Warmth noted Pain: mild pain with wound assessment/cleansing Goals of Treatment: ? moist wound healing, drainage control with durafiber ag Etiology: bilateral ischium and mynor anal hyperpigmentation. left buttock noted with 2 areas of intact pale pink scar tissue, likely old healed skin/pressure injury. Wound Bed: intact skin with hyper and hypopigmentation Drainage / Odor: none Mynor wound: ? No Induration, Fluctuance or Warmth noted Pain: none Goals of Treatment: ?offloading, prevention of skin injury Recommendations: 1. Turn and Reposition every 2 hours and as needed for patient comfort. Use pillows or wedges to support off loading positions. 2. Off Load all bony prominences with use of pillows and heel boots if needed. Apply Preventative foams where needed. 3. Monitor for incontinence and moisture control, use barrier creams when needed for prevention and treatment. 4. Provide adequate and supplemental nutrition. 5. Order low air loss mattress. 6. When applicable maintain blood glucose levels per Providers order. Bilateral legs - cleanse with saline, apply durafiber ag, cover with ABD pads, hold in place with rolled gauze or stretch netting, change every other day and PRN Buttock - Off Load Pressure with Q2 hr turns and use of pillows - Cleanse with PH balance spray or wipes, pat dry. ?Apply thin layer of barrier cream to affected area.? Apply twice daily and Reapply thin layer PRN after each episode of incontinence. Re-consult wound care Nurse for wound deterioration or wound changes.
[2025-05-06] MEDS: Aspirin Enteric Coated 81 MG TABLET.DR PO (10:49)
[2025-05-06] MEDS: Ferrous Sulfate 324 MG TABLET.DR PO ×2 (10:49→20:38)
[2025-05-06 10:59] LABS: Glucose, Whole Blood 146 mg/dL (60-115)
--- NOTE | 2025-05-06 14:21 | MHC.CM.PN ---
Pt. not ready to DC, he requires continued acute care for tx of hypoxic respiratory failure. CM to follow for DC needs.
[2025-05-06 16:14] LABS: Glucose, Whole Blood 151 mg/dL (60-115)
--- NOTE | 2025-05-06 18:07 | HO.PM.IMPN ---
Subjective Subjective Date of Service: 05/06/25 Interval History: SOB improved Cr worsened slightly No cough Denies SOB Continues to want to go home but willing to stay for treatment if necessary Denies chest pain or pressure Review of Systems Review of Systems: Yes all other systems are reviewed and are negative Physical Exam Exam: Exam: General: AOx3, no acute distress Resp: Lungs CTA CVS: Irregularly irregular rhythm GI: +BS, NT, no distention Skin: Warm, dry Neuro: Cranial nerves II-XII grossly intact bilaterally. Motor grossly intact bilaterally Extremities: legs tense, 1+ bilateral pitting edema; legs covered with clean and dry bandages Psych: Overall calm and cooperative, though occasionally agitated/anxious Vital Signs: Vital Signs: Last Vital Signs Temp 97.6 F 05/06/25 15:21 Pulse 70 05/06/25 15:21 Resp 16 05/06/25 15:21 BP 146/63 H 05/06/25 15:21 Pulse Ox 94 05/06/25 15:21 O2 Del Method Nasal Cannula 05/06/25 15:21 O2 Flow Rate 2 05/06/25 15:21 Oxygen Flow Rate 4 05/03/25 22:15 BMI result Body Mass Index 31.3 Objective Data Active Medications Acetaminophen (Acetaminophen 325 Mg Tablet) 975 mg PO Q6H PRN PRN Reason: Pain, Mild 1-3,fever,headache Last Admin: 05/05/25 04:36 Dose: 975 mg Documented By: SKYE Amlodipine Besylate (Amlodipine Besylate 5 Mg Tablet) 5 mg PO DAILY [facility]; Protocol Last Admin: 05/06/25 10:49 Dose: 5 mg Documented By: TANA Apixaban (Apixaban 2.5 Mg Tablet) 2.5 mg PO BID [facility] Last Admin: 05/06/25 10:48 Dose: 2.5 mg Documented By: TANA Aspirin (Aspirin Enteric Coated 81 Mg Tablet.) 81 mg PO DAILY [facility] Last Admin: 05/06/25 10:49 Dose: 81 mg Documented By: TANA Atorvastatin Calcium (Atorvastatin Calcium 40 Mg Tablet) 40 mg PO DAILY [facility] Last Admin: 05/06/25 10:48 Dose: 40 mg Documented By: TANA Calcitriol (Calcitriol 0.25 Mcg Capsule) 0.25 mcg PO Q48H [facility] Last Admin: 05/04/25 20:46 Dose: 0.25 mcg Documented By: SKYE Calcium Carbonate (Calcium Carbonate 750 Mg Tab.Chew) 750 mg PO Q4H PRN PRN Reason: Heartburn Carvedilol (Carvedilol 6.25 Mg Tablet) 6.25 mg PO BID [facility]; Protocol Last Admin: 05/06/25 10:53 Dose: 6.25 mg Documented By: TANA Dextrose (Dextrose 50 % 25 Gm/50 Ml Syringe) 25 gm IVPUSH Q15M PRN; Protocol PRN Reason: per Hypoglycemia Standing Ord. Diphenhydramine HCl (Diphenhydramine Hcl 50 Mg/Ml Vial) 25 mg IVPUSH Q6H PRN PRN Reason: Itching Last Admin: 05/05/25 22:25 Dose: 25 mg Documented By: ISABELLE Ferrous Sulfate (Ferrous Sulfate 324 Mg Tablet.) 324 mg PO BID [facility] Last Admin: 05/06/25 10:49 Dose: 324 mg Documented By: TANA Glucose (Glucose Gel 15 Gm Gel..Gram.) 15 gm PO Q15M PRN; Protocol PRN Reason: per Hypoglycemia Standing Ord. Piperacillin Sod/Tazobactam (Sod 3.375 gm/ Sodium Chloride) 50 mls @ 100 mls/hr IV Q6H [facility] Last Infusion: 05/06/25 16:54 Dose: Infused Documented By: TANA Insulin Human Lispro (Insulin Lispro 100 Unit/Ml 3 Ml Vial) 0 unit SUBCUT QIDACHS [facility]; Protocol Last Admin: 05/06/25 16:22 Dose: 2 unit Documented By: TANA Magnesium Hydroxide (Milk Of Magnesia 30 Ml Oral.Susp) 30 ml PO DAILY PRN PRN Reason: Constipation Melatonin (Melatonin 3 Mg Tablet) 6 mg PO BEDTIME PRN PRN Reason: Insomnia Nitroglycerin (Nitroglycerin 0.4 Mg Tab.Subl) 0.4 mg SUBLINGUAL Q5MX3 PRN PRN Reason: Chest Pain Omeprazole (Omeprazole 40 Mg Capsule.) 40 mg PO BID@0630,1630 [facility] Last Admin: 05/06/25 16:22 Dose: 40 mg Documented By: TANA Sodium Chloride (0.9 % Sodium Chloride Flush 3 Ml Syringe) 3 ml IVFLUSH QSHIFT [facility] Last Admin: 05/06/25 17:10 Dose: Not Given Documented By: TANA Non-Admin Reason: IV Running Labs 05/06/25 06:59 05/06/25 06:59 Labs: Laboratory Results - last 24 hr 05/05/25 05/06/25 05/06/25 20:44 06:56 06:59 MCV 84.6 MCH 25.3 L MCHC 29.9 L RDW 18.3 H Plt Count 158 L MPV 9.5 Absolute Nucleated RBC 0.000 Nucleated RBC % (auto) 0.0 Anion Gap 15 Estim Creat Clear Calc 22.4 Estimated GFR 19 POC Glucose 105 117 H Random Glucose 121 H Calcium 8.4 NT-Pro-B Natriuret Pep 19816.3 H 05/06/25 05/06/25 10:55 16:10 MCV MCH MCHC RDW Plt Count MPV Absolute Nucleated RBC Nucleated RBC % (auto) Anion Gap Estim Creat Clear Calc Estimated GFR POC Glucose 146 H 151 H Random Glucose Calcium NT-Pro-B Natriuret Pep Microbiology Microbiology Results: Microbiology 05/03/25 22:26 Blood Culture - Preliminary Blood - Venous No growth after 48 hours. 05/03/25 22:26 Blood Culture - Preliminary Blood - Venous No growth after 48 hours. Assessment and Plan (1) Acute exacerbation of CHF (congestive heart failure): Status: Acute Plan Ethan Cristina is a 74 y/o with a PMHx significant for multiple hospitalization for chronic hypoxic respiratory failure (noncompliant with home oxygen) who presents with: Acute on chronic hypoxic respiratory failure secondary to acute on chronic systolic and diastolic congestive heart failure and recurrent right pleural effusion. Telemetry. Pulse oximetry. Supplemental O2 to keep O2 sats > 90%. Has been diuresed with Lasix 40 mg IV b.i.d., currently on hold due to worsening kidney function. Will switch to home po dosing tomorrow. Daily weight. I&O. Low-salt diet. Rechecked TTE. IR consult for therapeutic paracentesis: 1.1L of pleural fluid drained. Chest pain, resolved. Likely secondary to above. Has chronically complained of atypical chest pain with the past few months. Troponin at baseline x2. Aspirin given by ED; will continue. Continue statin. Nitroglycerin sublingual as needed. CKD stage 4 with secondary hyperparathyroidism; creatinine increasing. Hold metolazone. Avoid nephrotoxic agents if possible. Hold metolazine for now. Continue to monitor renal function. Creatinine noted to increase. from 2.85-3.21 today. Switch to po diuretics tomorrow. Hyperkalemia, mild. Secondary to above. K level 5.3. No peaked T-waves. Lasix IV given. Continue to monitor. History of type 2 diabetes mellitus. Not on meds. Last hemoglobin A1c 5.5%. Insulin sliding scale for now and diabetic diet. Persistent a-fib, rate controlled. Continue Eliquis and carvedilol. Essential hypertension. Continue carvedilol and amlodipine. Hyperlipidemia. Continue statin. GERD. Continue PPI. Repeated AMAs. Has competency per psych. He told me that he is not planning to leave AMA this time. Chronic wounds to the lower extremities. Wound consult. Code status: Full DVT prophylaxis: On Eliquis Pt needs continue hospitalization for continued IV diuresing and close monitoring of electrolytes and kidney function. Quality Stroke Does the patient have a stroke diagnosis?: No VTE Prior VTE?: No VTE Risk Level:: Medical - moderate - high VTE Device Contraindication: Treatment Not Indicated VTE Drug Contraindication: N/A - Med Ordered
[2025-05-06 20:00] LABS: Glucose, Whole Blood 153 mg/dL (60-115)
[2025-05-07 03:51] VITALS: BP 136/78; PULSE 63; RESP 17; TEMP 36.3; O2SAT 95
[2025-05-07 07:16] LABS: Glucose, Whole Blood 108 mg/dL (60-115)
[2025-05-07 07:22] VITALS: BP 140/62; PULSE 67; RESP 20; TEMP 36.4; O2SAT 96
[2025-05-07 07:39] LABS: Anion Gap 15 (12-20); Blood Urea Nitrogen 100 mg/dL (9-16); Calcium 8.4 mg/dL (8.4-10.2); Carbon Dioxide 25 mmol/L (22-29); Chloride 105 mmol/L (96-108); Creatinine Clr Calc Pharmacy 24.3; Estimated Glomerular Filt Rate 20; Potassium 4.8 mmol/L (3.3-5.1); Sodium 140 mmol/L (135-145)
[2025-05-07 07:52] LABS: NT Pro B Type Natriuretic Pept 14175.0 pg/mL (<300)
[2025-05-07] MEDS: Aspirin Enteric Coated 81 MG TABLET.DR PO (08:01)
[2025-05-07] MEDS: Ferrous Sulfate 324 MG TABLET.DR PO (08:01)
[2025-05-07] MEDS: 0.9 % Sodium Chloride Flush 3 ML SYRINGE IVFLUSH (08:03)
[2025-05-07 10:46] VITALS: O2SAT 92
[2025-05-07 11:12] LABS: Glucose, Whole Blood 150 mg/dL (60-115)
[2025-05-07 11:21] VITALS: BP 154/60; PULSE 68; RESP 20; TEMP 36.1; O2SAT 99
--- NOTE | 2025-05-07 12:31 | MHC.CM.PN ---
PT rec. STR for pt. but he said he wants to go home. He said that he does not have CORPORATE TUTOR or PRODUCTION BROACHER services and that he needs it. Referral into [facility] for home PT and call placed to Dawson at [facility] to inquire about CORPORATE TUTOR services fot pt.
--- NOTE | 2025-05-07 14:06 | MHC.CM.PN ---
ANDREAS spoke to Dawson at [facility] today to request pt. get PRINCIPAL JAVA DEVELOPER or CAR WORKER services. Pt. has told CM that he needs this service. Dawson said he will let the care provider know and they will do a home visit when pt. is at home and assess him for PRINCIPAL JAVA DEVELOPER services. DCP for this pt. is home with [facility]. CM just received message from [facility] that pt. is already active with them and they have concerns for his safety at home and they have referred to [facility] Protective Services. ANDREAS will speak to pt. to ask if he will consider STR and ask if it is OK to contact his HCP.
[2025-05-07 15:30] VITALS: BP 138/64; PULSE 53; RESP 20; TEMP 36.5; O2SAT 100
--- NOTE | 2025-05-07 15:37 | MHC.CM.PN ---
Second IMM, pt. has been medically cleared to DC, he will go home via [employer], he was active with [facility], so he will resume those services.
--- NOTE | 2025-05-07 15:39 | P.DS_ITS ---
DS: Providers Provider Date of Service: 05/07/25 Date of admission: 05/04/25 01:56 Date of discharge: 05/07/25 Primary care physician: Blanca Anderson MD Consults: 05/04/25 02:53 Consult to Wound Care Routine Reason for consultation: Wounds to the lower extremities DS: Diagnosis Discharge Diagnosis (1) Acute exacerbation of CHF (congestive heart failure): Status: Acute DS: Summary Hospital Course Hospital Course: From admission HPI Date of Service: 05/04/25 Attending physician on admission: Michelle Schuster Chief Complaint: Chest pain,swollen legs Ethan Cristina is a 74 years old man with a past medical history significant for multiple hospitalization for chronic hypoxic respiratory failure (noncompliant with oxygen use) due to acute on chronic CHF, multiple AMS, atrial fibrillation on Eliquis, type 2 diabetes mellitus, essential hypertension, CAD, hyperlipidemia, hyperparathyroidism, CKD and congnitive impaiment presents to the emergency department complaining of retrosternal chest pain without radiation that started few minutes before presenting to the hospital. He was given aspirin by EMS. He also reported worsening swelling to the lower extremities and wounds for which he gets cares at home. According to ED nurse, patient has done commented that patient's supposed to use home O2 but he has not been wearing it. In the ED, he was found to have stable vital signs. He was found to have hypoxic by EMS. The patient is currently on 2 L of supplemental oxygen via nasal cannula satting 96%. Blood workup showed no leukocytosis. Hemoglobin is 8.0 which is around baseline and platelets 180.-mild hypokalemia of 2.3. BUN is 93 and creatinine is 0.92. There is no lactic acidosis. Troponin is 24 then 28.0 (around baseline). Pro BNP is 21,253.2. Viral testing negative for influenza, RSV and COVID. CXR showed persistent right basilar density favored to represent combination of pleural effusion atelectasis however superimposed infection can not be ruled out. ECG showed atrial fibrillation with normal ventricular response, heart rate 69 beats per minute. ED tx: Calcium gluconate 2 g IV, furosemide 40 mg IV, azithromycin 500 mg IV, ceftriaxone 2 g IV Hospital course Pt was admitted to the hospital for acute on chronic hypoxic respiratory failure in the setting of acute on chronic systolic and diastolic heart failure with right pleural effusion. Pt has a long hx of leaving AMA and threatened to leave AMA multiple times, but ultimately was convinced to stay for the entire course of treatment. Pt underwent therapeutic right thoracentesis which drained 1.1L before procedure was terminated due to pt intolerance. He was also treated with IV diuretics to good effect with improvement to lower leg edema and SOB. Pt was eventually weaned to home 2 L p.r.n.. Repeat echocardiogram showed mildly decreased left ventricular systolic function with LVEF between 40-45%; severely dilated right and left atrium; severe pulmonary hypertension; and small pericardial effusion. Pt was also initially treated with empiric antibiotics for possible underlying pneumonia, but these were stopped after imaging post-th oracentesis did not demonstrate any pneumonia. Hospital stay was complicated by worsening kidney function likely secondary to aggressive diuresing. IV diuretics were stopped and kidney function improved and pt's home oral diuertics were resumed. Pt was seen and evaluated by Physical therapy who recommended short-term rehab which he refused despite multiple attempts at convincing him otherwise. Case management contacted A services who were concerned about his safety at home; pt continued to refuse rehab and demanded to be sent home. He is already established with [facility] services and they will work with him once he is home to establish him with a SUR[employer]Y INTERVIEWER. He will be sent home with a prescription for a wheeled walker. Pt should adhere to a low-sodium diet, resume home furosemide and metolazone, and follow up with [facility] Cardiology in 1 week. Pt should also follow up with PCP in 1 week for post hospitalization visit. Pt should continue all of his other home medications, including home 2L O2 prn. Time Attestation Discharge Coordination Time (in mins): 35 Quality: Safe Use of Opioids Does Pt have an Active Cancer Diagnosis on the Problem List?: No Quality: Stroke Does the patient have a stroke diagnosis?: No Physical Exam Exam: Exam: General: AOx3, no acute distress Resp: Lungs CTA CVS: Irregularly irregular rhythm GI: +BS, NT, no distention Skin: Warm, dry Neuro: Cranial nerves II-XII grossly intact bilaterally. Motor grossly intact bilaterally Extremities: legs tense, 1+ bilateral pitting edema; legs covered with clean and dry bandages Psych: Overall calm and cooperative, though occasionally agitated/anxious Vital Signs: Vital Signs: Last Vital Signs Temp 97.7 F 05/07/25 15:30 Pulse 53 09/25/25 15:30 Resp 20 05/07/25 15:30 BP 138/64 05/07/25 15:30 Pulse Ox 100 05/07/25 15:30 O2 Del Method Nasal Cannula 05/07/25 15:30 O2 Flow Rate 2 05/07/25 15:30 Oxygen Flow Rate 4 05/03/25 22:15 BMI result Body Mass Index 31.3 DS: Data Data Completed and Pending Completed studies during hospitalization [Text1]: Procedures Dilation of Cystic Duct with Intraluminal Device, Via Natural or Artificial Opening Endoscopic (11/12/24) Drainage of Peritoneal Cavity with Drainage Device, Percutaneous Approach (11/12/24) Drainage of Peritoneal Cavity, Percutaneous Approach (11/12/24) Drainage of Right Pleural Cavity, Percutaneous Approach (12/04/24) Excision of Duodenum, Via Natural or Artificial Opening Endoscopic, Diagnostic (12/19/22) Excision of Esophagogastric Junction, Via Natural or Artificial Opening Endoscopic, Diagnostic (12/19/22) Excision of Stomach, Pylorus, Via Natural or Artificial Opening Endoscopic, Diagnostic (12/04/24) Inspection of Upper Intestinal Tract, Via Natural or Artificial Opening Endoscopic (11/12/24) Resection of Gallbladder, Percutaneous Endoscopic Approach (10/20/24) Transfusion of Nonautologous Red Blood Cells into Peripheral Vein, Percutaneous Approach (12/04/24) Labs on day of discharge: Laboratory Results - last 24 hr 05/06/25 05/06/25 05/07/25 16:10 19:55 06:44 Sodium Potassium Chloride Carbon Dioxide Anion Gap BUN Creatinine Estim Creat Clear Calc Estimated GFR POC Glucose 151 H 153 H Random Glucose Calcium NT-Pro-B Natriuret Pep 27953.0 H 05/07/25 05/07/25 05/07/25 06:45 07:00 11:01 Sodium 140 Potassium 4.8 Chloride 105 Carbon Dioxide 25 Anion Gap 15 BUN 100 H Creatinine 3.04 H Estim Creat Clear Calc 24.3 Estimated GFR 20 POC Glucose 108 150 H Random Glucose 112 Calcium 8.4 NT-Pro-B Natriuret Pep Preliminary micro results at discharge 05/03/25 22:26 Blood Culture - Preliminary Blood - Venous No growth after 48 hours. 05/03/25 22:26 Blood Culture - Preliminary Blood - Venous No growth after 48 hours. Discharge Plan Discharge Anticipated Discharge Date/Time: 05/07/25 15:11 Patient Disposition: Home Health Service Discharge Diagnosis: Acute on chronic hypoxic respiratory failure in the setting of decompensated CHF exacerbation Referrals: Luis MCDONNELL [Outside] - 1 Week Blanca Crowley MD [Primary Care Provider, Internal Medicine] - 1 Week Discharge Medications: New (DME) Ultra-Light Rollator Misc See Rx Instructions .Route Qty: 1 0RF Rx Instructions: As directed Continued (DME) blood sugar diagnostic Strip See Rx Instructions .ROUTE BID Qty: 50 11RF Rx Instructions: Use 1 test strip once a day atorvastatin 40 mg tablet 40 mg PO DAILY Eliquis 2.5 mg tablet 2.5 mg PO BID omeprazole 40 mg Capsule,Delayed Release(Dr/Ec) 40 mg PO BID@0630,1630 Qty: 60 0RF ferrous sulfate 325 mg (65 mg iron) tablet 325 mg PO BID calcitriol 0.25 mcg capsule 0.25 mcg PO Q48H metolazone 2.5 mg tablet 2.5 mg PO MOWEFR amlodipine 5 mg Tablet 5 mg PO DAILY Qty: 60 0RF Protocol: Hold for SBP< HOLD for SBP < : 90 carvedilol 6.25 mg Tablet 6.25 mg PO BID Qty: 60 0RF Protocol: Hold for SBP/HR < HOLD for SBP < : 90 HOLD for HR < : 60 furosemide 80 mg tablet 80 mg PO BID Qty: 60 0RF (DME) blood-glucose meter Misc See Rx Instructions PO BID Qty: 1 Rx Instructions: As directed (DME) [facility] See Rx Instructions .ROUTE BID Qty: 100 Rx Instructions: As directed Discharge Orders: Discharge Order (Routine); Ordered 05/07/25 Ordered By: Itzel Duran Activity on Discharge: As tolerated Stand Alone Forms: Patient Portal Discharge page Print Language: Citizen Of [place] Care Plan Goals: See below Health Concerns: Acute on chronic hypoxic respiratory failure Acute decompensated congestive heart failure exacerbation Lower leg edema KELSEY on CKD Atypical chest bed Plan of Treatment: You were admitted to the hospital for acute on chronic hypoxic respiratory failure in the setting of acute on chronic systolic and diastolic heart failure. You were treated with IV diuretics to good effect with improvement in lower leg edema and SOB. You were eventually weaned to home supplemental O2 2L. Repeat echocardiogram showed mildly decreased left ventricular systolic function with LVEF between 4-45%, as well as severely dilated right and left atrium, severe pulmonary hypertension, and small pericardial effusion. You also underwent therapeutic thoracentesis that drain 1.1 L from your right lung. You were initially treated with empiric antibiotics for possible underlying pneumonia, but these were stopped after imaging post thoracentesis did not demonstrate any pneumonia. Hospital stay was complicated by worsening kidney function likely secondary to aggressive diuresing. IV diuretics were stopped and kidney function improved and your home diuretics were resumed. You were seen and evaluated by Physical therapy who recommended short-term rehab which he refused. Case management contacted [facility] services who were concerned about your safety at home, though you continued to refuse going to rehab and demanded to be sent ho me. You are already established [facility] services who will work to possibly set you up with a SURVEY INTERVIEWER. -- you should adhere to a low-salt diet -- resume your furosemide 80 mg twice a day as well as metolazone 2.5 mg every Sunday, Sunday, and Sunday -- follow up with [facility] Cardiology in 1 week -- follow up with your PCP in 1 week for routine post hospitalization visit Assessment: See discharge summary
[2025-05-07 16:49] LABS: Glucose, Whole Blood 184 mg/dL (60-115)
--- NOTE | 2025-05-24 16:20 | P.CDIM_ITS ---
PROVIDER RESPONSE TEXT: To clarify, the appropriate diagnosis supported by the clinical indicators: Venous stasis ulcer bilateral legs: Likely QUERY TEXT: PHYSICIAN'S DOCUMENTATION REQUEST Date of Query: 05/22/2025 11:35 AM EDT Patient Name: Ethan Cristina Admit Date: 05/04/2025 Dear Itzel CALI, RETROSPECTIVE QUERY A review of the medical record indicates additional documentation may be needed. Please review below and update the documentation accordingly. Clinical Indicators: Wound care consultation notes dated 05/06/25 - Bilateral legs venous stasis ulcers. Scattered open areas with moist pink wound beds. Moist wound healing, draining control with durafiber ag. Based on the above, could you please provide further information regarding the ulcer/wound/injury: Venous stasis ulcer bilateral legs possible, probable, suspected, cannot rule out etc. Arterial (ischemic) ulcer possible, probable, suspected, cannot rule out etc. Pressure (decubitus) ulcer possible, probable, suspected, cannot rule out etc. Other specified Other (explain) Clinically unable to determine (explain) Thank you, Debra Moreland, CCS, CDIS Use of terms such as suspected, likely, concern for, or probable (associated with a specific diagnosis that is being evaluated, monitored, or treated as if it exists) are acceptable and can be coded in the inpatient setting, when documented at the time of discharge. Please use your independent medical judgment in providing your response. THIS QUERY IS PART OF THE PERMANENT MEDICAL RECORD
== END 2025-05-07 17:00 | disposition home health service (06) | DRG 291 ==
LOC: HO.ED 05-04 01:53 → HO.EDOVER 05-04 02:44 → HO.IMC 05-05 13:31
PROVIDERS: Physician Assistant Medical; Admitting Provider Internal Medicine; Emergency Provider Emergency Medicine; PCP Student in an Organized Health Care Education/Training Program; Visit Provider Student in an Organized Health Care Education/Training Program
DX: I13.0 Hypertensive heart and chronic kidney disease with heart failure and stage 1 through stage 4 chronic kidney disease, or unspecified chronic kidney disease (principal); I50.43 Acute on chronic combined systolic (congestive) and diastolic (congestive) heart failure; J96.21 Acute and chronic respiratory failure with hypoxia; N18.4 Chronic kidney disease, stage 4 (severe); I48.19 Other persistent atrial fibrillation; J91.8 Pleural effusion in other conditions classified elsewhere; L97.829 Non-pressure chronic ulcer of other part of left lower leg with unspecified severity; L97.819 Non-pressure chronic ulcer of other part of right lower leg with unspecified severity; E87.5 Hyperkalemia; I87.2 Venous insufficiency (chronic) (peripheral); I25.10 Atherosclerotic heart disease of native coronary artery without angina pectoris; E11.22 Type 2 diabetes mellitus with diabetic chronic kidney disease; Z20.822 Contact with and (suspected) exposure to COVID-19; Z87.891 Personal history of nicotine dependence; Z79.01 Long term (current) use of anticoagulants; Z79.899 Other long term (current) drug therapy
CPT/HCPCS: 32555; 36415; 71045; 80048; 80053; 82947; 83605; 83735; 83880; 84484; 85025; 85027; 87040; 87637; 93005; 93306; 97162; 99285; J0456; J0613; J0696; J1200; J1938; J2003; J2543; Q9957

== ENCOUNTER → 2025-05-03 22:03 | Outpatient (BNV) | payer OTHER, SELFPAY | PROVIDERS: Admitting Provider Internal Medicine; Emergency Provider Emergency Medicine; PCP Student in an Organized Health Care Education/Training Program; Visit Provider Internal Medicine Cardiovascular Disease | DX: I48.91 Unspecified atrial fibrillation (principal) | CPT/HCPCS: 93010 ==

== ENCOUNTER → 2025-05-03 22:06 | Outpatient (BNV) | payer OTHER, SELFPAY | PROVIDERS: Emergency Provider Emergency Medicine; PCP Student in an Organized Health Care Education/Training Program; Visit Provider Radiology Diagnostic Radiology | DX: R91.8 Other nonspecific abnormal finding of lung field (principal) | CPT/HCPCS: 71045 ==

== ENCOUNTER 2025-05-04 01:56 | Outpatient (BNV) | payer OTHER, SELFPAY | END 2025-05-04 07:00 | PROVIDERS: Admitting Provider Internal Medicine; Emergency Provider Emergency Medicine; PCP Student in an Organized Health Care Education/Training Program; Visit Provider Internal Medicine Cardiovascular Disease | DX: I27.20 Pulmonary hypertension, unspecified (principal); I51.7 Cardiomegaly; I31.39 Other pericardial effusion (noninflammatory) | CPT/HCPCS: 93306 ==

== ENCOUNTER 2025-05-04 01:56 | Outpatient (BNV) | payer OTHER, SELFPAY | END 2025-05-05 08:38 | PROVIDERS: Admitting Provider Internal Medicine; Emergency Provider Emergency Medicine; PCP Student in an Organized Health Care Education/Training Program; Visit Provider Radiology Diagnostic Radiology | DX: J96.91 Respiratory failure, unspecified with hypoxia (principal); J90 Pleural effusion, not elsewhere classified | CPT/HCPCS: 32555; 71045 ==

== ENCOUNTER → 2025-05-04 01:56 | Outpatient (BNV) | payer OTHER, SELFPAY | PROVIDERS: Admitting Provider Internal Medicine; Emergency Provider Emergency Medicine; PCP Student in an Organized Health Care Education/Training Program; Visit Provider Internal Medicine | DX: I50.9 Heart failure, unspecified (principal) | CPT/HCPCS: 99223; 99233; 99239; 99499 ==

== ENCOUNTER 2025-05-18 14:17 | Inpatient (IN) | payer OTHER, SELFPAY ==
[2025-05-18] VITALS (12 sets, daily range): BP systolic 97–148; BP diastolic 45–69; PULSE 56–70; RESP 10–24; TEMP 36.1–36.6; O2SAT 95–100; BMI 29.1
--- NOTE | ~2025-05-18 | US_ITS ---
CLINICAL HISTORY: KELSEY --- Additional Notes or Special Instructions: please look for kidneys, ureter and bladder Ultrasound kidneys. COMPARISON: None provided. Technique: Real time sonographic imaging, including color-flow imaging, was performed by the chisel worker. Multiple sales representative church furniture static images were saved for review. FINDINGS: Right kidney: Decreased corticomedullary differentiation. No calculus or focal parenchymal abnormality identified. No hydronephrosis. Right kidney size: 8.8 x 4.3 x 4.1 cm, diminutive Left kidney: Decreased corticomedullary differentiation. No calculus or focal parenchymal abnormality identified. No hydronephrosis. Left kidney size: 9.7 x 4.8 x 4.8 cm The urinary bladder partially full. Ureteral jets were not visualized bilaterally. Prevoid volume: Not obtained. Prostate is normal in size measuring 10 cc. Partially visualized pleural effusion on the right. Abdominal ascites present. IMPRESSION: 1. Decreased corticomedullary differentiation within the kidneys bilaterally can be seen with medical renal disease. 2. Atrophic right kidney. 3. Abdominal ascites and right pleural effusion present. This document has been electronically signed by: Raymundo Talamantes MD on 05/22/2025 19:53:07
--- NOTE | ~2025-05-18 | CT_ITS ---
EXAMINATION: CT HEAD WITHOUT IV CONTRAST HISTORY: confusion, hypothermia. TECHNIQUE: Unenhanced helical CT of the head was performed per standard departmental protocol. Coronal and sagittal reformats of the head were also evaluated. One or more of the following techniques was used for dose reduction: Automated exposure control, adjustment of the mA and/or kV according to patient size, use of iterative reconstruction technique. DLP: 936 mGy-cm COMPARISON: There are no prior studies available for comparison. FINDINGS: BRAIN: There is a large amount of streak artifact at the base of the brain from aneurysm clips. There is diffuse prominence of the ventricular system and cortical sulci, consistent with atrophy. Periventricular and subcortical white matter hypodensities are noted which are nonspecific, but often seen in the setting of small vessel ischemic disease. There are old lacunar infarcts in the left potts radiata and left thalamus. There is no mass effect or midline shift. No definite intra- or extra-axial fluid collections are identified. Multiple foci of gas attenuation is seen in the region of the superior sagittal sinus, likely related to IV catheter placement. SINUSES: The visualized paranasal sinuses are clear. The mastoid air cells and middle ear cavities are well pneumatized. ORBITS: The visualized orbits are unremarkable. BONES/SOFT TISSUES: The extracranial soft tissues are unremarkable. The calvarium is intact. No suspicious lytic or sclerotic lesions. CT/CT head/brain wo IV con IMPRESSION: Limited examination due to streak artifact from aneurysm clips. No definite evidence of intracranial hemorrhage. Electronically signed by: Cornelio Flores MD 05/22/2025 12:43 PM EDT
--- NOTE | ~2025-05-18 | XR_ITS ---
EXAMINATION: XR CHEST CLINICAL INFORMATION: sob COMPARISON: 05/05/2025. TECHNIQUE: Frontal view of the chest was obtained. FINDINGS: There is cardiac enlargement. Mediastinal and hilar contours appear normal. Aortic mural calcifications. Lungs demonstrate a small layering right effusion with underlying parenchymal opacities, likely passive atelectasis. Lungs are otherwise grossly clear. There is no left effusion. There is no pneumothorax. No focal osseous or soft tissue abnormality. There has been prior subacromial decompression on the right. Degenerative changes in both shoulder joints and throughout the spine. XR/XR chest 1V IMPRESSION: Small layering right effusion with associated passive atelectasis in the right base. Cardiac enlargement. No significant interval change from 05/05/2025. Electronically signed by: Jack Shah MD 05/18/2025 03:19 PM EDT
--- OUTSIDE RECORDS SUMMARY | 2025-05-18 13:15 | XMS_ITS | Encounter Summary ---
Author Organization [employer] Address [address] [place] [address] Care Team Providers Care Rate Manager Name Role Phone Cynthia Marshall NP Primary Care Provider [phone] Encounter Details Date Type Department Care Team ([facility] st Contact Info) Description 05/18/2025 1:15 PM EDT Office Visit [facility] [address] [place] [address] Cynthia Marshall NP [address], [place] [id number] CHF (congestive heart failure), NYHA class II, acute on chronic, combined (HCC) (Primary Dx); Moderate dementia with anxiety, unspecified dementia type (CMS/HCC) (HCC); Type 2 diabetes mellitus with other specified complication, without long-term current use of insulin (HCC) Social History Tobacco Use Types Packs/Day Years Used Date Smoking Tobacco: Former Cigarettes Passive Smoke Exposure: Past Smokeless Tobacco: Former Tobacco Cessation:Counseling Given: Not Answered Alcohol Use Standard Drinks/Week Comments Never 0 (1 standard drink = 0.6 oz pur e alcohol) Depression Answer Date Recorded Patient Health Questionnaire-9 Score 23 05/18/2025 Patient Health Questionnaire-9 Score 23 05/18/2025 Last PHQ-9: Questionnaire Data Not on file 1 Housing Stability Answer Date Recorded What is [...] Answer Date Recorded Patient Health Questionnaire-2 Score 6 05/18/2025 Internet Access Answer Date Recorded Internet Access [...] Sign Reading Time Taken Comments Blood Pressure 82/47 05/18/2025 1:36 PM EDT Pulse 62 05/18/2025 1:36 PM EDT Temperature 36.1 C (96.9 F) 05/18/2025 1:36 PM EDT Respiratory Rate 12 05/18/2025 1:36 PM EDT Oxygen Saturation 94% 05/18/2025 1:36 PM EDT Inhaled Oxygen Concentration - - Weight 85.6 kg (188 lb 12.8 oz) 05/18/2025 1:36 PM EDT Height 170.2 cm (5' 7 ) 05/18/2025 1:36 PM EDT Body Mass Index 29.57 05/18/2025 1:36 PM EDT documented in this encounter Functional Status * Over the past 2 weeks, how often have you been bothered by any of the following problems? Question Answer Date of Assessment Author Patient Health Questionnaire -2 Score 6 05/18/2025 2:22 PM EDT Joey Wahl MA * Little interest or pleasure in doing things Answer Date of Assessment Author Nearly every day 05/18/2025 2:22 PM EDT Denisa Wahl MA * Feeling down, depressed, or hopeless Answer Date of Assessment Author Nearly every day 05/18/2025 2:22 PM EDT Denisa Wahl MA * Trouble falling or staying asleep, or sleeping too much Answer Date of Assessment Author Nearly every day 05/18/2025 2:22 PM EDT Denisa Wahl MA * Feeling tired or having little energy Answer Date of Assessment Author Nearly every day 05/18/2025 2:22 PM EDT Denisa Wahl MA * Poor appetite or overeating Answer Date of Assessment Author Nearly every day 05/18/2025 2:22 PM EDT Denisa Wahl MA * Feeling bad about yourself - or that you are a failure or have let yourself or your family down Answer Date of Assessment Author Nearly every day 05/18/2025 2:22 PM EDT Denisa Wahl MA * Trouble concentrating on things, such as reading the newspaper or watching television Answer Date of Assessment Author More than half the days 05/18/2025 2:22 PM EDT Denisa Diaz MA * Moving or speaking so slowly that other people could have noticed? Or the opposite - being so fidgety or restless that you have been moving around a lot more than usual. Answer Date of Assessment Author Several days 05/18/2025 2:22 PM EDT Denisa Wahl MA * Thoughts that you would be better off or hurting yourself in some way Answer Date of Assessment Author More than half the days 05/18/2025 2:22 PM EDT Denisa Diaz MA * Patient Health Questionnaire-9 Score Answer Date of Assessment Author 23 05/18/2025 2:22 PM EDT Denisa Wahl MA documented as of this encounter Miscellaneous Notes * Assessment & Plan Note - Cynthia Marshall NP - 05/18/2025 1:15 PM EDTAssociated Problem(s): CHF (congestive heart failure), NYHA class II, acute on chronic, combined (HCC) * Assessment & Plan Note - Cynthia Marshall NP - 05/18/2025 1:15 PM EDTAssociated Problem(s): Dementia with anxiety (CMS/HCC) (HCC) * Assessment & Plan Note - Cynthia Marshall NP - 05/18/2025 1:15 PM EDTAssociated Problem(s): Type 2 diabetes mellitus (HCC) Orders: POCT Glucose documented in this encounter Plan of Treatment Upcoming Encounters Date Type Department Care Team (Late st Contact Info) Description 01/22/2026 9:30 AM EDT Medication Management [facility] [address] [place] [address] Pauline Warner, PharmD [address] [place] [address] documented as of this encounter Procedures Procedure Name Priority Date/Time Associated Diagnosis Comments POCT GLUCOSE Routine 05/18/2025 1:50 PM EDT Type 2 diabetes mellitus with other specified complication, without long-term current use of insulin (HCC) documented in this encounter Results * POCT Glucose (05/18/2025 1:50 PM EDT) Glucose Blood, POC 115 60 - 200 mg/dL QC Media Lot # [id number] Lot# Expiration Date Blood Capillary blood specimen / Unknown 05/18/2025 1:50 PM EDT Cynthia Marshall NP POINT OF CARE TEST ENTER/EDIT OR DERABLES Final Result documented in this encounter Visit Diagnoses Diagnosis CHF (congestive heart failure), NYHA class II, acute on chronic, combined (HCC)- Primary Moderate dementia with anxiety, unspecified dementia type (CMS/HCC) (HCC) Type 2 diabetes mellitus with other specified complication, without long-term current use of insulin ([facility]) documented in this encounter Additional Health Concerns Assessment Noted Time PHQ-9 Depression Total Score: 23 025 2:22 PM EDT documented as of this encounter Care Teams Rate Manager Relationship Specialty Start Date End Date Cynthia Marshall NP [address] [place] [address] PCP - General Family Medicine 09/10/23 Luis MCDONNELL 04/21/25 documented as of this encounter
--- NOTE | 2025-05-18 14:42 | ED.GENADULT ---
[facility] - General Adult General Chief complaint: General Medical Stated complaint: ? gi bleed Time Seen by Provider: 05/18/25 14:37 Source: patient Mode of arrival: ambulatory Limitations: language barrier History of Present Illness ED Provider: Dr. Larios [facility] narrative: 74-year-old male presented hospital today for evaluation of increased lower extremity swelling, shortness of breath and GI bleed for the past couple of days. Patient's stated that he has been having some dark stool. The patient denies any acute shortness of breath however does appear to be tachypneic. Denies any chest pain. Patient was sent in due to increased leg swelling. He denies any abdominal pain. Related Data Home Medications ?Medication ?Instructions ?Recorded ?Confirmed blood-glucose meter #1 ea 05/14/20 01/14/24 lancets #100 ea 05/14/20 01/14/24 atorvastatin 40 mg tablet 40 mg PO DAILY 12/19/22 05/04/25 apixaban 2.5 mg tablet (Eliquis) 2.5 mg PO BID 12/05/24 05/04/25 ferrous sulfate 325 mg (65 mg 325 mg PO BID 03/30/25 05/04/25 iron) tablet calcitriol 0.25 mcg capsule 0.25 mcg PO Q48H 05/04/25 05/04/25 metolazone 2.5 mg tablet 2.5 mg PO MOWEFR 05/04/25 05/04/25 Previous Rx's ?Medication ?Instructions ?Recorded blood sugar diagnostic #50 ea 01/24/21 omeprazole 40 mg capsule,delayed 40 mg PO BID@0630,1630 #60 caps 12/16/24 release amlodipine 5 mg tablet 5 mg PO DAILY #60 tabs 01/29/25 carvedilol 6.25 mg tablet 6.25 mg PO BID #60 tabs 01/29/25 furosemide 80 mg tablet 80 mg PO BID #60 tabs 04/18/25 walker (Ultra-Light Rollator misc) #1 ea 05/07/25 Allergies Allergy/AdvReac Type Severity Reaction Status Date / Time No Known Allergies (No Known Allergy Verified 05/18/25 14:33 Allergies*) Review of Systems Review of Systems: Pertinent review of systems as mentioned in HPI. All other system otherwise negative. [facility] Past Medical History [facility] Narrative: Medical history as mentioned in [facility] Medical History Anemia in chronic kidney disease (CKD) Hypertension Uncontrolled hypertension Congestive heart failure CKD (chronic kidney disease) CHF (congestive heart failure) CKD (chronic kidney disease) stage 4, GFR 15-29 ml/min Obesity (BMI 30.0-34.9) Cardiomyopathy Stroke Chronic atrial fibrillation CKD (chronic kidney disease) Former smoker Depression Diabetes High cholesterol Surgical History History of aneurysm History of shoulder surgery Family History Family History Father No problems noted. Mother Diabetes Hypertension Cancer Son No problems noted. Son No problems noted. Son No problems noted. Daughter No problems noted. Daughter No problems noted. Social History Social History Household Members: None Household Members Other:: Housing: Apartment Are you a primary resident care director to a significant other at home: No Do you presently have visiting nurse or other home services: Yes Alcohol intake: never Comment: Sitter at bedside Patient Tobacco Use Status: Former Tobacco user Substance Use Type: Marijuana Advance Directives: Yes Advance Directives on File: Yes Advance Directives Date on File: 12/17/24 service: No Current occupational status: disabled Physical Exam ED Exam Exam: General: Pleasant, no distress, interacting appropriately Head: Normacephalic, atraumatic ENT: oral mucosa moist, neck supple, no tracheal deviation Cardiovascular: regular rate, regular rhythm, no murmurs, rubbing, gallops Respiratory: Bibasilar rales on exam Gastrointestinal: Soft, non distended, non tender, non guarding Extremities: +3 pitting edema in lower extremity with venous stasis changes, does some blistering of the wound due to leg swelling. Neurological: Awake and alert, no facial droop noted Skin: Warm and dry Psychiatric: Appropriate mood and thoughts Vital Signs: Vital Signs - 24 hr 05/18/25 14:30 05/18/25 15:00 05/18/25 17:07 Temperature 98 F 97.0 F Pulse Rate 60 56 Respiratory Rate 24 H 15 Blood Pressure 130/50 L 121/47 L 120/53 L Pulse Oximetry 97 100 Oxygen Delivery Method Room Air BMI result Body Mass Index 29.1 Medications Administered Discontinued Medications Generic Name Dose Route Start Last Admin Trade Name Damian PRN Reason Stop Dose Admin Furosemide 40 mg 05/18/25 14:43 05/18/25 15:00 Furosemide 40 Mg/4 Ml Vial IVPUSH 05/18/25 14:44 40 mg ONCE ONE Administration Protocol Hydromorphone HCl 0.25 mg 05/18/25 15:01 05/18/25 15:17 Hydromorphone Hcl 0.5 Mg/0.5 Ml Syringe IVPUSH 05/18/25 15:02 0.25 mg ONCE ONE Administration Protocol Pantoprazole Sodium 80 mg 05/18/25 15:34 05/18/25 15:43 Pantoprazole Sodium 40 Mg/10 Ml Vial IVPUSH 05/18/25 15:35 80 mg ONCE ONE Administration Medical Decision Making Medical Decision Making [facility] Narrative: 74-year-old male history of AFib on Eliquis, CHF, CKD presented hospital today for evaluation of signs of GI bleed and increased lower extremity swelling. On exam patient does appear to be anasarca. Patient does have swelling in the lower abdomen, in the scrotum, edema up to his thighs pitting in nature. Patient's fecal occult blood test was positive for blood. Patient's hemoglobin 6.9. Approximately 2 month ago he was around 8.9. IV Protonix given to cover for possible signs of GI bleed. GI team will be we will be consulted for the patient. Patient's blood pressure remained stable at this time. IV Lasix will be given chest x-ray will be obtained. Chest x-ray shows right effusion with a cardiomegaly. Patient's creatinine is elevated at 3.19 which is around his baseline. The patient does have slight bump in troponin at 35.8 we will repeat a troponin. He is not having any signs of active chest pain. This may be demand in nature due to CHF versus anemia[place] [address]. Discussed the case with the hospitalist. We will admit the patient to hospital for further diuresis and blood transfusion. Differential Diagnosis Differential Diagnoses: The differential diagnosis associated with the presentation includes GI bleed, anemia, CHF exacerbation, fluid overload Consult Healthcare Provider Management of the patient was discussed with: Hospitalist and Recreation Therapy Aides Teacher (Dr. Leblanc) Lab Data MDM Lab Attestation statement: I reviewed the patient's lab results. 05/18/25 15:04 05/18/25 15:04 Labs: Lab Results 05/18/25 05/18/25 05/18/25 Range/Units 14:59 15:04 15:30 WBC 4.6 L (4.8-10.8) X10*3/uL RBC 2.78 L (4.60-5.80) X10*6/uL Hgb 6.9 L* (14.0-18.0) g/dl Hct 22.6 L (42.0-52.0) % MCV 81.3 (80.0-98.0) fL MCH 24.8 L (27.0-33.0) pg MCHC 30.5 L (31.0-36.0) g/dl RDW 17.7 H (11.0-16.0) % Plt Count 149 L (160-400) X10*3/uL MPV 9.1 L (9.4-12.4) fL Immature Gran % (Auto) 0.4 (0.0-0.4) % Neut % (Auto) 73.8 H (45-73) % Lymph % (Auto) 13.9 L (20-40) % Sargent % (Auto) 10.2 (2-11) % Eos % (Auto) 1.5 (0-4) % Baso % (Auto) 0.2 (0-2) % Lymph # (Auto) 0.6 L (1.2-4.9) X10*3/uL Sargent # (Auto) 0.5 (0.1-1.2) X10*3/uL Eos # (Auto) 0.1 (0.0-0.4) X10*3/uL Baso # (Auto) 0.0 (0.0-0.2) X10*3/uL Abs Immat Gran (auto) 0.02 (0.00-0.03) X10*3/uL Absolute Neuts (auto) 3.4 (2.0-8.3) x10*3/uL Absolute Nucleated RBC 0.040 H (0.0-0.012) X10*3/uL Nucleated RBC % (auto) 0.9 H (0.0-0.2) /100WBC Sodium 134 L (135-145) mmol/L Potassium 4.8 (3.3-5.1) mmol/L Chloride 102 (96-108) mmol/L Carbon Dioxide 21 L (22-29) mmol/L Anion Gap 16 (12-20) BUN 136 H (9-16) mg/dL Creatinine 3.19 H (0.5-1.4) mg/dL Estim Creat Clear Calc 23.1 Estimated GFR 19 Random Glucose 82 (60-115) mg/dL Calcium 8.5 (8.4-10.2) mg/dL Magnesium 2.1 (1.6-2.6) mg/dL Total Bilirubin 0.7 (0.0-1.0) mg/dL AST 51 H (5-37) U/L ALT 24 (0-40) U/L Alkaline Phosphatase 138 H (39-117) U/L Troponin I High Sens 35.8 H (<3.5-35.0) ng/L NT-Pro-B Natriuret Pep 03355.1 H (<300) pg/mL Total Protein 7.4 (6.5-8.0) g/dL Albumin 3.3 L (3.5-5.0) g/dL Stool Occult Blood POSITIVE (NEGATIVE) Blood Type B Positive Antibody Screen NEGATIVE Crossmatch See Detail Independent Interpretation I performed an independent interpretation of an: EKG and Plain X-Ray Radiology Impression Discussion of test interpretation with radiology: I have reviewed the radiologist's reading. Chronic Conditions CHF, CKD, chronic anemia, AFib on Eliquis Critical Care Time Critical Care Time Critical Care Time: Yes Total Critical Care Time: 50 Attestation: Time is exclusive of separately billable procedures. Time includes: direct patient care, patient reassessment, coordination of patient care, interpretation of data (laboratory data, pulse oximetry, arterial blood gases and chest xrays), review of patient's medical records, medical consultation and documentation of patient care. Procedures excluded from critical care time: central intravenous line placement and electrocardiography. Discharge Plan Discharge Clinical Impression: GI (gastrointestinal bleed), Anemia, Elevated troponin, CHF (congestive heart failure), Anasarca Patient Disposition: Admitted As Inpatient Print Language: Burundian
[2025-05-18] MEDS: Furosemide 40 MG/4 ML VIAL IVPUSH (15:00)
--- NOTE | 2025-05-18 15:00 | PC.NURSE ---
Pt sent here by PCP for c/o increased bilat LE edema x past week and hypotension 80/40. EMS confirmed hypotention upon arrival and received 300mls of fluid en route. Pt currently c/o posterior head pain and bilat LE pain. Per EMS son reported to PCP pt had a stool this am and was bright red. Pt denies these findings.
[2025-05-18 15:09] LABS: MANUAL DIFF FLAG NO
[2025-05-18 15:10] LABS: Hematocrit 22.6 % (42.0-52.0); Imm Gran Abs Auto 0.02 X10*3/uL (0.00-0.03); Imm Gran Pct Auto 0.4 % (0.0-0.4); Lymphocytes Absolute Auto 0.6 X10*3/uL (1.2-4.9); Mean Corpuscular HGB Conc 30.5 g/dl (31.0-36.0); Mean Corpuscular Hemoglobin 24.8 pg (27.0-33.0); Mean Corpuscular Volume 81.3 fL (80.0-98.0); NRBC Abs Auto 0.040 X10*3/uL (0.0-0.012); NRBC Pct Auto 0.9 /100WBC (0.0-0.2); Platelet Count 149 X10*3/uL (160-400); Red Blood Count 2.78 X10*6/uL (4.60-5.80); White Blood Count 4.6 X10*3/uL (4.8-10.8)
[2025-05-18 15:12] LABS: OBS Int Ctl Valid YES; OBS1 POSITIVE (NEGATIVE)
[2025-05-18 15:13] LABS: Hemoglobin 6.9 g/dl (14.0-18.0)
[2025-05-18 15:32] LABS: Troponin-I High Sensitivity 35.8 ng/L (<3.5-35.0)
[2025-05-18 15:33] LABS: NT Pro B Type Natriuretic Pept 11637.1 pg/mL (<300)
[2025-05-18 15:45] LABS: Alanine Aminotransferase 24 U/L (0-40); Albumin Level 3.3 g/dL (3.5-5.0); Alkaline Phosphatase 138 U/L (39-117); Anion Gap 16 (12-20); Aspartate Amino Transferase 51 U/L (5-37); Calcium 8.5 mg/dL (8.4-10.2); Carbon Dioxide 21 mmol/L (22-29); Chloride 102 mmol/L (96-108); Creatinine Clr Calc Pharmacy 23.1; Estimated Glomerular Filt Rate 19; Magnesium 2.1 mg/dL (1.6-2.6); Potassium 4.8 mmol/L (3.3-5.1); Sodium 134 mmol/L (135-145); Total Protein 7.4 g/dL (6.5-8.0)
[2025-05-18 16:32] LABS: Blood Urea Nitrogen 136 mg/dL (9-16)
--- OUTSIDE RECORDS SUMMARY | 2025-05-18 17:54 | XMS_ITS | Clinical Summary ---
Author Organization [facility] Address [address] [place] [phone] Phone Care Team Providers Care Insurance Underwriter Sales Name Role Phone Blanca Crowley MD Primary Care Pro vider Encounters Date Type Department Care Team Description 04/18/2025 Orders Only [facility] [address] [place] [address] Homehealth, Interface ProviderMD from Last 3 Months [...] file Medical Devices Not on file [place] [address] [place] [address] DUAL MEDICARE REPLACEMENT MEDICARE PART A & B [facility] MEDICARE REPLACEMENT [facility] DUAL MEDICARE REPLACEMENT MEDICARE PART A & B [facility] MEDICARE REPLACEMENT [facility] DUAL MEDICARE REPLACEMENT MEDICARE PART A & B [facility] DUAL MEDICARE REPLACEMENT MEDICARE PART A & B [facility] MEDICARE REPLACEMENT [facility] DUAL MEDICARE REPLACEMENT MEDICARE PART A & B [facility] MEDIC[facility] REPLACEMENT [facility] DUAL MEDICARE REPLACEMENT MEDICARE PART A & B [facility] MEDICARE REPLACEMENT Care Teams Insurance Underwriter Sales Relationship Specialty Start Date End Date Blanca Crowley MD [address] [place] [id number] PCP - General Internal Medicine 04/18/25 Additional Source Comments The information contained in this document represents components of the legal health record. It is not the complete legal health record.[facility]
--- OUTSIDE RECORDS SUMMARY | 2025-05-18 17:54 | XMS_ITS | Encounter Summary ---
Author Organization [employer] Address [address] [facility] 7t [place] [address] Care Team Providers Care Patient Safety Coordinator Name Role Phone Cynthia Marshall NP Primary Care Provider [phone] Encounter Details Date Type Department Care Team ([facility] st Contact Info) Description 09/26/2024 Orders Only [facility] MEDICINE [address] [place], [place] [phone] Cynthia Marshall NP [address] [place], [place] [phone] Stage 3b chronic kidney disease (CMS/HCC) Social [...] Description 01/22/2026 9:30 AM EDT Medication Management [facility] MEDICINE [address] [place] [address] Pauline Warner, JagD [address] [place] [address] documented as of this encounter Visit Diagnoses Diagnosis Stage 3b chronic kidney disease (CMS/HCC) (HCC) documented in this encounter Additional Health Concerns Assessment Noted Time PHQ-9 Depression Total Score: 0 01/21/20 24 11:17 AM EDT documented as of this encounter Care Teams Patient Safety Coordinator Relationship Specialty Start Date End Date Cynthia Marshall NP [address] [place] [address] PCP - General Family Medicine 09/10/23 [facility] 01/01/25 04/27/25 [facility] 04/21/25 documented as of this encounter
--- OUTSIDE RECORDS SUMMARY | 2025-05-18 17:54 | XMS_ITS | Encounter Summary ---
Author Organization [facility] Address [address] [place] [address] Phone Care Team Providers Care Electronic Warfare Officer Name Role Phone Arielle Godinez Primary Care Provider Unavailabl e Encounter Details Date Type Department Care Team (Late st Contact Info) Description 01/03/2024 Office Communication [facility] [address] [place] [address] Soy Meléndez MD [address] [facility] [address] [place] [address] Social History Tobacco Use Types [...] on filedocumented in this encounter Care Teams Electronic Warfare Officer Relationship Specialty Start Date End Date Arielle Godinez PCP - General Family Medicine 08/10/21 documented as of this encounter
--- OUTSIDE RECORDS SUMMARY | 2025-05-18 17:54 | XMS_ITS | Encounter Summary ---
Author Organization [employer] Address [address] [facility] 7t [place] [address] Care Team Providers Care Licensed Midwife Name Role Phone Cynthia Marshall NP Primary Care Provider [phone] Reason for Visit * Reason Onset Date Comments gsssi. 05/14/2025 Encounter Details Date Type Department Care Team ([facility] st Contact Info) Description 05/14/2025 Telephone [facility] MEDICINE [address] [place] [address] Cynthia Marshall NP [address] [place] [address] gsssi. Social History Tobacco Use Types Packs/Day Years [...] your housing situation today? I have raya smipson 01/21/[address] you li [...] Telephone Encounter - Cynthia Marshall NP - 05/14/2025 4:24 PM EDT Spoke with favian * Telephone Encounter - Franchesca Timmons - 05/14/2025 3:22 PM EDT TC from Favian with [facility] requesting a call back due to questions theyhave regarding patient. Questions: If patient has decisional capacity? Does the patient have a health care proxy? If yes, who is the proxy? Is proxy invoked? Does the PCP believe patient needs a higher level of care? Does the PCP have any concerns regarding patient? Does pt have history of UTI? Is pt medication compliant? Caller name : Favian ext [phone] documented in this encounter Plan of Treatment Upcoming Encounters Date Type Department Care Team (Late st Contact Info) Description 01/22/2026 9:30 AM EDT Medication Management [facility] MEDICINE [address] [place] [address] Pauline Warner, aJgD [address] [place] [address] documented as of this encounter Visit Diagnoses Not on filedocumented in this encounter Additional Health Concerns Assessment Noted Time PHQ-9 Depression Total Score: 3 01/22/20 10:47 AM EDT documented as of this encounter Care Teams Licensed Midwife Relationship Specialty Start Date End Date Cynthia Marshall NP [address] [place] [address] PCP - General Family Medicine 09/10/23 Luis MCKENZIEA 04/21/25 documented as of this encounter
--- OUTSIDE RECORDS SUMMARY | 2025-05-18 17:54 | XMS_ITS | Encounter Summary ---
Author Organization [employer] Address [address] 7[address] [place] [address] Care Team Providers Care Program Management Intern Name Role Phone Cynthia Marshall NP Primary Care Provider [phone] Reason for Visit * Reason Onset Date Comments chart prep 05/15/2025 Encounter Details Date Type Department Care Team (Late st Contact Info) Description 05/15/2025 Telephone [facility] MEDICINE [address] [place] [address] Denisa Wahl [place] chart prep Social History Tobacco Use Types Packs/Day Years [...] encounter Miscellaneous Notes * Telephone Encounter - Denisa Wahl MA - 05/15/2025 10:04 AM EDT Chart Prep Labs: not done Images: done Referrals: appointment pending to be schedule Vaccines due: Covid, Flu, Hep B, and RSV Screenings: colonoscopy and foot exam Overdue care gaps: Glucose, SBIRT, ARON-7, and Oral health screening documented in this encounter Plan of Treatment Upcoming Encounters Date Type Department Care Team (Late st Contact Info) Description 01/22/2026 9:30 AM EDT Medication Management [facility] MEDICINE [address] [place] [address] Pauline Warner, PharmD [address] [place] [address] documented as of this encounter Visit Diagnoses Not on filedocumented in this encounter Additional Health Concerns Assessment Noted Time PHQ-9 Depression Total Score: 3 01/22/20 25 10:47 AM EDT documented as of this encounter Care Teams Program Management Intern Relationship Specialty Start Date End Date Cynthia Marshall NP [address] [place] [id number] PCP - General Family Medicine 09/10/23 Luis A 04/21/25 documented as of this encounter
--- OUTSIDE RECORDS SUMMARY | 2025-05-18 17:54 | XMS_ITS | Clinical Summary ---
Author Organization [facility] Address [address] [place] [address] Care Team Providers Care Furniture Finisher Helper Name Role Phone Arielle Godinez Primary Care Provider Unavailabl e Allergies No known active allergies Medications Lancets (OneTouch Delica Plus [id number]) [facility] TEST BLOOD SUGAR NEEDED, IN [...] (01/04/2024): Last Assessment & Plan: Lesion right yazidi suspicious for [place], referral to derm Chronic [...] age to complete this topic Insurance [place] Member Subscriber Plan / Payer (Ef fective 2023-Present) Name:Ethan Bro Relation to Subscriber:Self Name:Ethan Bro Payer ID:Not on file Group ID:Not on file Type:Not on file Address: [facility] [id number] [place] [address] [place] [id number] Medicaid [place] [facility] ([id number]) Care Teams Furniture Finisher Helper Relationship Specialty Start Date End Date Arielle Godinez PCP - General Family Medicine 08/10/21
--- OUTSIDE RECORDS SUMMARY | 2025-05-18 17:54 | XMS_ITS | Encounter Summary ---
Author Organization [employer] Address [address] [facility] 7t [place] [address] Care Team Providers Care Sustainability Manager Name Role Phone Cynthia Marshall NP Primary Care Provider [phone] Reason for Visit * Reason Onset Date Comments Medication Question 05/15/2025 Encounter Details Date Type Department Care Team ([facility] st Contact Info) Description 05/15/2025 Telephone [facility] MEDICINE [address] [place] [address] Cynthia Marshall NP [address] [place] [address] Medication Question Social History Tobacco Use Types [...] encounter Miscellaneous Notes * Telephone Encounter - Rose Anderson PharmD - 05/15/2025 2:27 PM EDT Pharmacist called [facility] to let them know metolazone is waiting at [facility] pharmacy for pickup and Medboxes ready to be picked up. Patient picked up increased dose of furosemide at [facility]. [facility] will let patient's son know * Telephone Encounter - Franchesca Timmons - 05/15/2025 11:58 AM EDT Tc from Jalyn at [facility] stating pt was prescribed metOLazone (Zaroxolyn) 2.5 MG tablet at hospital discharged and is requesting for provider to prescribe it . Also pt medbox needs to be updated advised hospital Contact Jalyn at [phone] documented in this encounter Plan of Treatment Upcoming Encounters Date Type Department Care Team (Late st Contact Info) Description 01/22/2026 9:30 AM EDT Medication Management [facility] MEDICINE [address] [place] [address] Pauline Warner, PharmD [address] [place] [address] documented as of this encounter Visit Diagnoses Not on filedocumented in this encounter Additional Health Concerns Assessment Noted Time PHQ-9 Depression Total Score: 3 01/22/20 25 10:47 AM EDT documented as of this encounter Care Teams Sustainability Manager Relationship Specialty Start Date End Date Cynthia Marshall NP [address] [place] [address] PCP - General Family Medicine 09/10/23 Luis MCKENZIEA 04/21/25 documented as of this encounter
--- OUTSIDE RECORDS SUMMARY | 2025-05-18 17:54 | XMS_ITS | Encounter Summary ---
Author Organization [employer] Address [address] [facility] 7[address] [place] [address] Care Team Providers Care Product Safety Consultant Name Role Phone NayeliCynthia mendoza MARLENE Primary Care Provider [phone] Encounter Details Date Type Department Care Team (Latest Contact Info) Description 05/18/2025 Travel Social History Tobacco Use Types Packs/Day [...] AM EDT documented as of this encounter Functional Status * Over the [...] Author Nearly every day 05/18/2025 2:22 PM Denisa Tanner MA * Trouble falling or staying asleep, or sleeping too much Answer Date of Assessment Author Nearly every day 05/18/2025 2:22 PM Denisa Tanner MA * Feeling tired or having little energy Answer Date of Assessment Author Nearly every day 05/18/2025 2:22 PM ERICKT Denisa Wahl MA * Poor appetite or overeating Answer Date of Assessment Author Nearly every day 05/18/2025 2:22 PM Denisa Tanner MA * Feeling bad about yourself - or that you are a failure or have let yourself or your family down Answer Date of Assessment Author Nearly every day 05/18/2025 2:22 PM Denisa Tanner MA * Trouble concentrating on things, such as reading the newspaper or watching television Answer Date of Assessment Author More than half the days 05/18/2025 2:22 PM EDT I Denisa abad MA * Moving or speaking so slowly [...] half the days 05/18/2025 2:22 PM EDT I Denisa abad MA * Patient Health Questionnaire-9 Score Answer Date of Assessment Author 23 05/18/2025 2:22 PM EDT Denisa Wahl MA documented as of this encounter Plan of Treatment Upcoming Encounters Date Type Department Care Team (Late st Contact Info) Description 01/22/2026 9:30 AM EDT Medication Management [facility] MEDICINE [address] [place] [address] Pauline Warner, PharmD [address] [place] [address] documented as of this encounter Visit Diagnoses Not on filedocumented in this encounter Additional Health Concerns Assessment Noted Time PHQ-9 Depression Total Score: 23 025 2:22 PM EDT documented as of this encounter Care Teams Product Safety Consultant Relationship Specialty Start Date End Date Cynthia Marshall NP [address] [place] [address] PCP - General Family Medicine 09/10/23 Luis [facility] 04/21/25 documented as of this encounter
--- OUTSIDE RECORDS SUMMARY | 2025-05-18 17:55 | XMS_ITS | Encounter Summary ---
Author Organization [employer] Address [address] [place] [address] Care Team Providers Care Warehouse Associate Driver Name Role Phone Cynthia Marshall NP Primary Care Provider [phone] Reason for Visit * Reason Comments Med Refill Encounter Details Date Type Department Care Team (Late st Contact Info) Description 05/16/2024 Refill [facility] [address] [place] [address] Oly Guerrero FNP Social History Tobacco Use [...] Description 01/22/2026 9:30 AM EDT Medication Management [facility] MEDICINE [address] [place] [address] Pauline Warner, PharmD [address] [place] [address] documented as of this encounter Visit Diagnoses Not on filedocumented in this encounter Additional Health Concerns Assessment Noted Time PHQ-9 Depression Total Score: 0 01/21/20 24 11:17 AM EDT documented as of this encounter Care Teams Warehouse Associate Driver Relationship Specialty Start Date End Date Cynthia Marshall NP [address] [place] [address] PCP - General Family Medicine 09/10/23 [facility] 01/01/25 04/27/25 [facility] 04/21/25 documented as of this encounter
--- OUTSIDE RECORDS SUMMARY | 2025-05-18 17:55 | XMS_ITS | Encounter Summary ---
Author Organization [employer] Address 75 [facility] [address] [place] [address] Care Team Providers Care Radarman Name Role Phone Cynthia Marshall NP Primary Care Provider [phone] Reason for Visit * Reason Comments Med Refill Encounter Details Date Type Department Care Team (Late st Contact Info) Description 04/29/2025 Refill [facility]ENTER [address] [place], [place] [phone] Apryl Ruelas DO [address] [place], [place] [phone] Bilateral lower extremity edema Social History Tobacco [...] Description 01/22/2026 9:30 AM EDT Medication Management [facility] MEDICINE [address] [place] [address] Pauline Warner, PharmD 230 [place] [address] documented as of this encounter Visit Diagnoses Diagnosis Bilateral lower extremity edema documented in this encounter Additional Health Concerns Assessment Noted Time PHQ-9 Depression Total Score: 3 01/22/20 25 10:47 AM EDT documented as of this encounter Care Teams Radarman Relationship Specialty Start Date End Date Cynthia Marshall NP 230 [place] [address] PCP - General Family Medicine 09/10/23 [facility] 04/21/25 documented as of this encounter
--- OUTSIDE RECORDS SUMMARY | 2025-05-18 17:55 | XMS_ITS | Encounter Summary ---
Author Organization [employer] Address 75 [facility] 7t [place] [address] Care Team Providers Care Early Morning Babysitter Name Role Phone Cynthia Marshall NP Primary Care Provider [phone] Reason for Visit * Reason Comments Med Refill Encounter Details Date Type Department Care Team (Late st Contact Info) Description 11/04/2023 Refill [facility] WALK-IN CENTER [address] [place] [address] Blanca Crowley MD [address] [place], [place] [phone] Social History Tobacco Use Types Packs/Day Years [...] 01/22/2026 9:30 AM EDT Medication Management [facility] MEDICINE [address] [place] [address] Pauline Warner, PharmD 230 [place] [address] documented as of this encounter Visit Diagnoses Not on filedocumented in this encounter Additional Health Concerns Assessment Noted Time PHQ-9 Depression Total Score: 0 01/11/20 23 9:39 AM EDT documented as of this encounter Care Teams Early Morning Babysitter Relationship Specialty Start Date End Date Cynthia Marshall NP 230 [place] [address] PCP - General Family Medicine 09/10/23 [facility] 01/01/25 04/27/25 [facility] 04/21/25 documented as of this encounter
--- OUTSIDE RECORDS SUMMARY | 2025-05-18 17:55 | XMS_ITS | Encounter Summary ---
Author Organization [employer] [facility] Address 75 [facility] 7t [place] [address] Care Team Providers Care Senior Mechanical Project Engineer Name Role Phone Virginia Perez Primary Care Provider Iveth Blanca Ferraro MD Primary Care Pro vider Cynthia Marshall NP Primary Care Provider [phone] Encounter Details Date Type Department Care Team (Latest Contact Info) Description 03/31/2021 Abstract [facility] CONVERSIONS Dental, Provider, DDS Social History Tobacco [...] Description 01/22/2026 9:30 AM EDT Medication Management [facility] MEDICINE 230 [place] [address] Pauline Warner, PharmD 230 [place] [address] documented as of this encounter Visit Diagnoses Not on filedocumented in this encounter Care Teams Senior Mechanical Project Engineer Relationship Specialty Start Date End Date Virginia Perez FNP PCP - General Family Medicine 04/28/22 03/28/23 Blanca Crowley MD 230 [place] [address] PCP - General Internal Medicine 03/29/23 09/09/23 Cynthia Marshall NP 230 [place] [address] PCP - General Family Medicine 09/10/23 [facility] 01/01/25 04/27/25 [facility] 04/21/25 documented as of this encounter
--- OUTSIDE RECORDS SUMMARY | 2025-05-18 17:55 | XMS_ITS | Encounter Summary ---
Author Organization [employer] Address 75 [facility] 7t [place] [address] Care Team Providers Care Promotions Coordinator Name Role Phone Cynthia Marshall NP Primary Care Provider [phone] Reason for Visit * Reason Onset Date Comments FYI 02/06/2025 Encounter Details Date Type Department Care Team ([facility] st Contact Info) Description 02/06/2025 Telephone [facility] MEDICINE 230 [place] [address] Cynthia Marshall NP 230 [place] [address] FYI Social History Tobacco Use Types Packs/Day [...] - 02/06/2025 1:16 PM EDT Tc from [place] with Anthony MCDONNELL calling to report heart rate of 54, not symptomatic. documented in this encounter Plan of Treatment Upcoming Encounters Date Type Department Care Team (Late st Contact Info) Description 01/22/2026 9:30 AM EDT Medication Management [facility] MEDICINE [address] [place] [address] Pauline Warner, PharmD 230 [place] [address] documented as of this encounter Visit Diagnoses Not on filedocumented in this encounter Additional Health Concerns Assessment Noted Time PHQ-9 Depression Total Score: 3 01/22/20 25 10:47 AM EDT documented as of this encounter Care Teams Promotions Coordinator Relationship Specialty Start Date End Date Cynthia Marshall NP 230 [place] [address] PCP - General Family Medicine 09/10/23 [facility] 01/01/25 04/27/25 [facility] 04/21/25 documented as of this encounter
--- OUTSIDE RECORDS SUMMARY | 2025-05-18 17:55 | XMS_ITS | Encounter Summary ---
Author Organization [employer] Address 75 [facility] 7t [place] [address] Care Team Providers Care Director Of Valuation Name Role Phone Cynthia Marshall NP Primary Care Provider [phone] Reason for Visit * Reason Comments Med Refill Encounter Details Date Type Department Care Team ([facility] st Contact Info) Description 04/29/2025 Refill [facility] MEDICINE [address] [place] [address] Cynthia Marshall NP 230 [place] [address] Social History Tobacco Use Types Packs/Day Years [...] AM EDT Medication Management [facility] MEDICINE [address] [place] [address] Pauline Warner, JagD 230 [place] [address] documented as of this encounter Visit Diagnoses Not on filedocumented in this encounter Additional Health Concerns Assessment Noted Time PHQ-9 Depression Total Score: 3 01/22/20 25 10:47 AM EDT documented as of this encounter Care Teams Director Of Valuation Relationship Specialty Start Date End Date Cynthia Marshall NP 230 [place] [address] PCP - General Family Medicine 09/10/23 [facility] 04/21/25 documented as of this encounter
--- OUTSIDE RECORDS SUMMARY | 2025-05-18 17:55 | XMS_ITS | Encounter Summary ---
Author Organization [employer] Address 75 [facility] 7t [place] [address] Care Team Providers Care Field Service Engineer Name Role Phone Cynthia Marshall NP Primary Care Provider [phone] Reason for Visit * Reason Comments Med Refill Encounter Details Date Type Department Care Team ([facility] st Contact Info) Description 02/07/2025 Refill [facility] [address] [place] [address] Cynthia Marshall NP [address] [place] [address] Social History Tobacco Use Types Packs/Day Years [...] Description 01/22/2026 9:30 AM EDT Medication Management [facility] MEDICINE [address] [place] [address] Pauline Warner, JagD 230 [place] [address] documented as of this encounter Visit Diagnoses Not on filedocumented in this encounter Additional Health Concerns Assessment Noted Time PHQ-9 Depression Total Score: 3 01/22/20 25 10:47 AM EDT documented as of this encounter Care Teams Field Service Engineer Relationship Specialty Start Date End Date Cynthia Marshall NP [address] [place] [address] PCP - General Family Medicine 09/10/23 [facility] 01/01/25 04/27/25 [facility] 04/21/25 documented as of this encounter
--- OUTSIDE RECORDS SUMMARY | 2025-05-18 17:55 | XMS_ITS | Encounter Summary ---
Author Organization [employer] Address 75 [facility] 7t [place] [address] Care Team Providers Care Rail Bender Name Role Phone Cynthia Marshall NP Primary Care Provider [phone] Reason for Visit * Reason Onset Date Comments [facility] 05/04/2025 Encounter Details Date Type Department Care Team ([facility] st Contact Info) Description 05/04/2025 Telephone [facility] MEDIC[facility] [address] [place] [address] Cynthia Marshall NP [address] [place] [address] [facility] Social History Tobacco Use Types Packs/Day Years [...] Telephone Encounter - Cynthia Marshall NP - 05/04/2025 10:18 AM EDT Are they on HIPAA? * Telephone Encounter - Radha Luna - 05/04/2025 9:53 AM EDT GABBY Ballesteros with [facility] requesting a call back due to questions theyhave regarding patient. Questions: If patient has decisional capacity? Does the patient have a health care proxy? If yes, who is the proxy? Does the PCP believe patient needs a higher level of care? Does the PCP have any concerns regarding patient? An EMCA has been complete? Any refrral to neurology was submitted? Does pt has any medical or medication complains? Does pt is able to manege medication by his self? Any ACP involved ? Caller name : Favian ext [phone] documented in this encounter Plan of Treatment Upcoming Encounters Date Type Department Care Team (Late st Contact Info) Description 01/22/2026 9:30 AM EDT Medication Management [facility] MEDICINE [address] [place] [address] Pauline Warner, JagD [address] [place] [address] documented as of this encounter Visit Diagnoses Not on filedocumented in this encounter Additional Health Concerns Assessment Noted Time PHQ-9 Depression Total Score: 3 01/22/20 10:47 AM EDT documented as of this encounter Care Teams Rail Bender Relationship Specialty Start Date End Date Cynthia Marshall NP 230 [place] [address] PCP - General Family Medicine 09/10/23 [facility] 04/21/25 documented as of this encounter
--- OUTSIDE RECORDS SUMMARY | 2025-05-18 17:55 | XMS_ITS | Encounter Summary ---
Author Organization [employer] Address 75 [facility] 7t [place] [address] Care Team Providers Care E D Tech Name Role Phone Cynthia Marshall NP Primary Care Provider [phone] Reason for Visit * Reason Onset Date Comments fyi 05/01/2025 Encounter Details Date Type Department Care Team ([facility] st Contact Info) Description 05/01/2025 Telephone [facility] MEDICINE 230 [place] [address] Cynthia Marshall NP 230 [place] [address] fyi Social History Tobacco Use Types Packs/Day [...] 3:18 PM EDT Tc from Jalyn at [facility] stating pt gained 11 lbs in 10 days and was not taking dieretics . Son started staying with pt 2-3 days ago and pt is taking his dieretics as son is giving them to him Contact Jalyn at [phone] documented in this encounter Plan of Treatment Upcoming Encounters Date Type Department Care Team (Late st Contact Info) Description 01/22/2026 9:30 AM EDT Medication Management [facility] MEDICINE 230 [place], [place] [phone] Pauline Warner, PharmD 230 [place], [place] [phone] documented as of this encounter Visit Diagnoses Not on filedocumented in this encounter Additional Health Concerns Assessment Noted Time PHQ-9 Depression Total Score: 3 01/22/20 25 10:47 AM EDT documented as of this encounter Care Teams E D Tech Relationship Specialty Start Date End Date Cynthia Marshall NP 230 [place] [address] PCP - General Family Medicine 09/10/23 [facility] 04/21/25 documented as of this encounter
--- OUTSIDE RECORDS SUMMARY | 2025-05-18 17:55 | XMS_ITS | Encounter Summary ---
Author Organization [employer] Address [address] [place] [address] Care Team Providers Care Insurance Licensing Supervisor Name Role Phone Jarad Lundy MD Primary Care Provider Encounter Details Date Type Department Care Team (Latest Contact Info) Description 12/19/2024 Lab Requisition [facility] - Main Lab [address] [facility] [place] [address] Jarad Lundy MD [address] [place] [id number] Type 2 diabetes mellitus without complications ([facility] V24, [facility] V28) Social History Tobacco Use Types Packs/Day [...] EDT Type 2 diabetes mellitus without complications ([facility]/HCC V24, [facility] V28) HEMOGLOBIN A1C Routine 12/19/2024 4:48 AM EDT Type 2 diabetes mellitus without complications ([facility] V24, [facility] V28) COMPREHENSIVE METABOLIC PANEL Routine 12/19/2024 4:48 AM EDT Type 2 diabetes mellitus without complications ([facility] V24, [facility] V28) documented in this encounter Results * Hemoglobin A1c (12/19/2024 4:48 AM EDT) Pathologist [facility] Hemoglobin A1C 5.7 <6.5 % LAB CHEMISTRY METHOD 12/19/2024 11:02 AM T [facility] Mean Bld Glu Estim. 117 mg/dL LAB CHEMISTRY METHOD 12/19/2024 11:02 AM [facility] Blood Venous blood specimen / Unknown Venipuncture / Unknown 12/19/2024 4:48 AM EDT 12/19/2024 7:19 AM EDT us Jarad Lundy MD LAB BLOOD ORDERABLES Final Resu lt [facility] [address] [place] [address], * (ABNORMAL) Comprehensive metabolic panel (12/19/2024 4:48 AM EDT) [facility] Sodium 141 133 - 145 mmol/L LAB CHEMISTRY METHOD 12/19/2024 8:20 AM [facility] Potassium 3.3(L) 3.5 - 5.5 mmol/L LAB CHEMISTRY METHOD 12/19/2024 8:20 AM [facility] Chloride 106 96 - 110 mmol/L LAB CHEMISTRY METHOD 12/19/2024 8:20 AM [facility] CO2 26 21 - 32 mmol/L LAB CHEMISTRY METHOD 12/19/2024 8:20 AM [facility] Anion Gap 9 3 - 11 LAB CHEMISTRY METHOD 12/19/2024 8:20 AM [facility] Glucose 74 70 - 100 mg/dL LAB CHEMISTRY METHOD 12/19/2024 8:20 AM [facility] BUN 26(H) 5 - 25 mg/dL LAB CHEMISTRY METHOD 12/19/2024 8:20 AM [facility] Creatinine 1.68(H) 0.70 - 1.30 mg/dL LAB CHEMISTRY METHOD 12/19/2024 8:20 AM [facility] eGFR 43(L) >=60 mL/min/1. 73m2 LAB CHEMISTRY METHOD 12/19/2024 8:20 AM [facility] Comment:Calculation based on the Chronic Kidney Disease Epidemiology Collaboration (CKD-EPI) equation refit without adjustment for race. BUN/Creatinine Ratio 15.5 LAB CHEMISTRY METHOD 12/19/2024 8:20 AM [facility] Calcium 8.1(L) 8.5 - 10.5 mg/dL LAB CHEMISTRY METHOD 12/19/2024 8:20 AM [facility] AST (SGOT) 20 10 - 42 unit/L LAB CHEMISTRY METHOD 12/19/2024 8:20 AM [facility] ALT (SGPT) 18 10 - 60 unit/L LAB CHEMISTRY METHOD 12/19/2024 8:20 AM [facility] Alkaline Phosphatase 210(H) 42 - 121 unit/L LAB CHEMISTRY METHOD 12/19/2024 8:20 AM [facility] Total Protein 5.3(L) 6.0 - 8.0 g/dL LAB CHEMISTRY METHOD 12/19/2024 8:20 AM [facility] Albumin 2.0(L) 3.2 - 5.0 g/dL LAB CHEMISTRY METHOD 12/19/2024 8:20 AM [facility] Total Bilirubin 0.6 0.0 - 1.4 mg/dL LAB CHEMISTRY METHOD 12/19/2024 8:20 AM [facility] Blood Venous blood specimen / Unknown Venipuncture / Unknown 12/19/2024 4:48 AM EDT 12/19/2024 7:19 AM EDT us Jarad Lundy MD LAB BLOOD ORDERABLES Final Resu lt [facility] [address] [place] [address], * (ABNORMAL) Complete blood count (12/19/2024 4:48 AM EDT) [facility] Signature WBC 9.1 4.8 - 10.8 K/mcL LAB HEMETOLOGY METHOD 12/19/2024 7:52 AM EDT [facility] RBC 3.60(L) 4.50 - 5.50 M/mcL LAB HEMETOLOGY METHOD 12/19/2024 7:52 AM EDT [facility] Hemoglobin 10.3(L) 13.5 - 17.5 g/dL LAB HEMETOLOGY METHOD 12/19/2024 7:52 AM EDT [facility] Hematocrit 31.6(L) 42.0 - 54.0 % LAB HEMETOLOGY METHOD 12/19/2024 7:52 AM EDT [facility] MCV 88.8 79.0 - 98.0 FL LAB HEMETOLOGY METHOD 12/19/2024 7:52 AM EDT [facility] MCH 28.9 27.0 - 32.0 pcg LAB HEMETOLOGY METHOD [facility] MCHC 32.6 32.0 - 37.0 g/dL LAB HEMETOLOGY METHOD 12/19/2024 7:52 AM EDT [facility] RDW 16.2(H) 11.0 - 15.0 % LAB HEMETOLOGY METHOD 12/19/2024 7:52 AM EDT [facility] Platelets 308 130 - 400 K/mcL LAB HEMETOLOGY METHOD [facility]24 [facility] MPV 9.1 7.0 - 11.0 FL LAB HEMETOLOGY METHOD 12/19/2024 7:52 AM EDT [facility] NRBC 0.0 <1.0 % LAB HEMETOLOGY METHOD 12/19/2024 7:52 AM EDT [facility] NRBC Absolute 0.00 <0.10 K/mcL LAB HEMETOLOGY METHOD 12/19/2024 7:52 AM EDT [facility] Blood Venous blood specimen / Unknown Venipuncture / Unknown 12/19/2024 4:48 AM EDT 12/19/2024 7:19 AM EDT us Jarad Lundy MD LAB BLOOD ORDERABLES Final Resu lt [facility] [address] [place] [address], [place] [phone] documented in this encounter Visit Diagnoses Diagnosis Type 2 diabetes mellitus without complications (CMS/HCC V24, CMS/HCC V28) documented in this encounter Care Teams Insurance Licensing Supervisor Relationship Specialty Start Date End Date Jarad Lundy MD [address] [place] [phone] PCP - General Hospitalist Medicine 12/17/24 documented as of this encounter
--- OUTSIDE RECORDS SUMMARY | 2025-05-18 17:55 | XMS_ITS | Encounter Summary ---
Author Organization [employer] Address 75 [facility] 7t [place] [address] Care Team Providers Care Radiological Metallurgist Name Role Phone Cynthia Marshall NP Primary Care Provider [phone] Encounter Details Date Type Department Care Team ([facility] st Contact Info) Description 04/11/2024 Orders Only [facility] MEDICINE [address] [place], [place] [phone] Cynthia Marshall NP 230 [place] [address] Stage 3b chronic kidney disease (CMS/HCC) Social [...] Description 01/22/2026 9:30 AM EDT Medication Management [facility]IC[facility] [address] [place] [address] Pauline Warner, PharmD 230 [place] [address] documented as of this encounter Procedures Procedure Name Priority Date/Time Associated Diagnosis Comments BASIC METABOLIC PANEL Routine 07/04/2024 12:13 PM EST Stage 3b chronic kidney disease (CMS/HCC) documented in this encounter Results * (ABNORMAL) Basic Metabolic Panel (07/04/2024 12:13 PM EST) Sodium 141 135 - 145 mmol/L [facility] Potassium 3.4 3.3 - 5.1 mmol/L [facility] Chloride 104 96 - 108 mmol/L [facility] Carbon Dioxide 28 22 - 29 mmol/L [facility] Anion Gap 12 12 - 20 [facility] Urea Nitrogen (BUN) 42(H) 9 - 16 mg/dL [facility] Creatinine, Serum 1.96(H) 0.5 - 1.4 mg/dL [facility] Estimated Glomerular Filt Rate 34 [facility] Comment:Chronic Kidney Disea se: Estimated GFR < 60 mL/min/1.39r4Kcurle Kidney Disease: Estimated GFR < 15 mL/min/1.73m2 Glucose 110 60 - 115 mg/dL [facility] Calcium 9.2 8.4 - 10.2 mg/dL [facility] Blood Venous blood specimen / Unknown 07/04/2024 12:13 PM EST 07/04/2024 12:13 PM EST us Cynthia Marshall NP LAB BLOOD ORDERABLES Final Resul t [facility] [address] [place] [address] [phone] documented in this encounter Visit Diagnoses Diagnosis Stage 3b chronic kidney disease (CMS/HCC) (HCC) documented in this encounter Additional Health Concerns Assessment Noted Time PHQ-9 Depression Total Score: 0 01/21/20 24 11:17 AM EDT documented as of this encounter Care Teams Radiological Metallurgist Relationship Specialty Start Date End Date Cynthia Marshall NP [address] [place] [id number] PCP - General Family Medicine 09/10/23 [facility] 01/01/25 04/27/25 [facility] 04/21/25 documented as of this encounter
--- OUTSIDE RECORDS SUMMARY | 2025-05-18 17:55 | XMS_ITS | Clinical Summary ---
Author Organization [address] Address [address] [place] [address] Phone Care Team Providers Care Manager Unit Name Role Phone Jarad Lundy MD Primary Care Provider [phone] Surgical History Surgery Date Site/Laterality Comments SHOULDER SURGERY 06/18/07 PROCEDURE: HISTORICAL SHOULDER SURGERY; COMMENT: Rotator cuff- Dr. Adis King APPENDECTOMY PROCEDURE: HISTORICAL APPENDECTOMY COLONOSCOPY 12/28/2011 PROCEDURE: HISTORICAL COLONOSCOPY; COMMENT: normal UPPER GASTROINTESTINAL ENDOSCOPY 03/14/2016 PROCEDURE: DC UPPER GI ENDOSCOPY PERFORMED; COMMENT: Visually normal; duodenal biopsies: Minimal nonspecific inflammation Medical History Medical History Date Comments Unspecified essential hypertension DX:Unspecified essential hypertension Basilar artery aneurysm ([facility] V24) 10/07/2013 DX:Basilar artery aneurysm ([facility]) Type 2 diabetes, diet contro lled ([facility] V24, [facility] V28) 10/07/2013 DX:Type 2 diabetes, diet co ntrolled ([facility]) Type 2 diabetes, diet contro lled ([facility] V24, [facility] V28) 10/07/2013 DX:Type 2 diabetes, diet co ntrolled ([facility]) Controlled type 2 diabetes w ith [...] Date Last Done Comments Colorectal Cancer Screening: Colonoscopy 1952 Diabetes: Annual Foot Exam 1962 Diabetes: Annual Retina Eye Exam 1962 RSV Immunization Adult Patients (1 - Risk 60-74 years 1-dose series) 2012 Abdominal Aortic Aneurysm (AAA) Screen 07/26/2022 Falls Risk Assessment 07/26/2022 Hepatitis C [...] EDT Type 2 diabetes mellitus without complications ([facility] V24, [facility] V28) HEMOGLOBIN A1C Routine 12/19/2024 4:48 AM EDT Type 2 diabetes mellitus without complications ([facility] V24, [facility] V28) from Last 3 Months or Most Recently Relevant to Health Maintenance Results * Hemoglobin A1c (12/19/2024 4:48 AM EDT) Hemoglobin A1C 5.7 <6.5 % LAB CHEMISTRY METHOD 12/19/2024 11:02 AM EDT [facility] Mean Bld Glu Estim. 117 mg/dL LAB CHEMISTRY METHOD 12/19/2024 11:02 AM EDT [facility] Blood Venous blood specimen / Unknown Venipuncture / Unknown 12/19/2024 4:48 AM EDT 12/19/2024 7:19 AM EDT us Jarad Lundy MD LAB BLOOD ORDERABLES Final Resu lt [facility] [address] [place] [address], [place] [phone] * (ABNORMAL) Comprehensive metabolic panel (12/19/2024 4:48 AM EDT) Sodium 141 133 - 145 mmol/L LAB CHEMISTRY METHOD 12/19/2024 8:20 AM [facility] Potassium 3.3(L) 3.5 - 5.5 mmol/L LAB CHEMISTRY METHOD 12/19/2024 8:20 AM [facility] Chloride 106 96 - 110 mmol/L LAB CHEMISTRY METHOD 12/19/2024 8:20 AM [facility] CO2 26 21 - 32 mmol/L LAB CHEMISTRY METHOD 12/19/2024 8:20 AM [facility] Anion Gap 9 3 - 11 LAB CHEMISTRY METHOD 12/19/2024 8:20 AM [facility] Glucose 74 70 - 100 mg/dL LAB CHEMISTRY METHOD 12/19/2024 8:20 AM [facility] BUN 26(H) 5 - 25 mg/dL LAB CHEMISTRY METHOD 12/19/2024 8:20 AM [facility] Creatinine 1.68(H) 0.70 - 1.30 mg/dL LAB CHEMISTRY METHOD 12/19/2024 8:20 AM [facility] eGFR 43(L) >=60 mL/min/1. 73m2 LAB CHEMISTRY METHOD 12/19/2024 8:20 AM [facility] Comment:Calculation based on the Chronic Kidney Disease Epidemiology Collaboration (CKD-EPI) equation refit without adjustment for race. BUN/Creatinine Ratio 15.5 LAB CHEMISTRY METHOD 12/19/2024 8:20 AM [facility] Calcium 8.1(L) 8.5 - 10.5 mg/dL LAB CHEMISTRY METHOD 12/19/2024 8:20 AM [facility] AST (SGOT) 20 10 - 42 unit/L LAB CHEMISTRY METHOD 12/19/2024 8:20 AM [facility] ALT (SGPT) 18 10 - 60 unit/L LAB CHEMISTRY METHOD 12/19/2024 8:20 AM [facility] Alkaline Phosphatase 210(H) 42 - 121 unit/L LAB CHEMISTRY METHOD 12/19/2024 8:20 AM EDT [facility] Total Protein 5.3(L) 6.0 - 8.0 g/dL LAB CHEMISTRY METHOD 12/19/2024 8:20 AM EDT [facility] Albumin 2.0(L) 3.2 - 5.0 g/dL LAB CHEMISTRY METHOD 12/19/2024 8:20 AM EDT [facility] Total Bilirubin 0.6 0.0 - 1.4 mg/dL LAB CHEMISTRY METHOD 12/19/2024 8:20 AM EDT [facility] Blood Venous blood specimen / Unknown Venipuncture / Unknown 12/19/2024 4:48 AM EDT 12/19/2024 7:19 AM EDT us Jarad Lundy MD LAB BLOOD ORDERABLES Final Resu lt [facility] [address] [place] [address], from Last 3 Months or Most Recently Relevant to Health Maintenance Insurance [place]ICA[place] [facility] [place] [place] [id number] Care Teams Manager Unit Relationship Specialty Start Date End Date Jarad Lundy MD [address] [place] [address] PCP - General Hospitalist Medicine 12/17/24
--- OUTSIDE RECORDS SUMMARY | 2025-05-18 17:55 | XMS_ITS | Encounter Summary ---
Author Organization [employer] Address [address] [facility] 7t [place] [address] Care Team Providers Care Ore Crusher Name Role Phone Cynthia Marshall NP Primary Care Provider [phone] Reason for Referral * Consultation (Routine) - Authorized Specialty Diagnoses / Procedures Referred By Contac t Referred To Contact Pharmacy Diagnoses Hypertension Venus Villa MD [address] [place] [address] Phone: tel: fax: Referral ID Status Reason Start Date Expiration Date Visits Requested Visits Authorized [id number] Authorized Continuity of Care 05/18/2025 05/18/2026 6 6 Encounter Details Date Type Department Care Team (Late st Contact Info) Description 05/14/2025 Orders Only [facility] [address] [place] [address] Venus Villa MD [address] [place], [place] [phone] Hypertension (Primary Dx) Social History Tobacco Use Types [...] Description 01/22/2026 9:30 AM EDT Medication Management [facility] [address] [place] [address] Pauline Warner, PharmD [address] [place] [address] Scheduled Referrals Name Type Priority Associated Diagnoses Orde r Schedule Referral to Pharmacy MTM Outpatient Referral Routine Hypertension Ordered: 05/18/2025 documented as of this encounter Visit Diagnoses Diagnosis Hypertension- Primary Unspecified essential hypertension documented in this encounter Additional Health Concerns Assessment Noted Time PHQ-9 Depression Total Score: 3 01/22/20 25 10:47 AM EDT documented as of this encounter Care Teams Ore Crusher Relationship Specialty Start Date End Date Cynthia Marshall NP [address] [place] [address] PCP - General Family Medicine 09/10/23 Luis MCKENZIEA 04/21/25 documented as of this encounter
--- OUTSIDE RECORDS SUMMARY | 2025-05-18 17:55 | XMS_ITS | Encounter Summary ---
Author Organization [employer] Address [address] [place] [address] Care Team Providers Care Tool And Cutter Grinder Name Role Phone Jarad Lundy MD Primary Care Provider [phone] Encounter Details Date Type Department Care Team (Late st Contact Info) Description 12/17/2024 Lab Requisition [facility] [address] [facility] [place] [address] Jarad Lundy MD [address] [place] [address] Anemia, unspecified; Chronic kidney disease, stage 3a [...] Resu lt [facility] [address] [place] [address], [place] [phone] * (ABNORMAL) Basic metabolic panel (12/17/2024 4:55 [...] Resu lt [facility] [address] [place] [address], documented in this encounter Visit Diagnoses Diagnosis Anemia, unspecified Chronic kidney disease, stage 3a (CMS/HCC V24, CMS/HCC V28) documented in this encounter Care Teams Tool And Cutter Grinder Relationship Specialty Start Date End Date Jarad Lundy MD [address] [place] [address] PCP - General Hospitalist Medicine 12/17/24 documented as of this encounter
--- OUTSIDE RECORDS SUMMARY | 2025-05-18 17:55 | XMS_ITS | Encounter Summary ---
Author Organization [employer] Address [address] [facility] [address] [place] [address] Care Team Providers Care Lock And Dam Operator Name Role Phone Cynthia Marshall NP Primary Care Provider [phone] Encounter Details Date Type Department Care Team ([facility] st Contact Info) Description 12/31/2023 Orders Only [facility] [address] [place], [place] [phone] Corby Jacobs MD [address] [place] [address] Elevated blood uric acid level (Primary Dx) [...] Description 01/22/2026 9:30 AM EDT Medication Management [facility] [address] [place] [address] Pauline Warner, JagD [address] [place] [address] documented as of this encounter Visit Diagnoses Diagnosis Elevated blood uric acid level- Primary documented in this encounter Additional Health Concerns Assessment Noted Time PHQ-9 Depression Total Score: 0 01/11/20 23 9:39 AM EDT documented as of this encounter Care Teams Lock And Dam Operator Relationship Specialty Start Date End Date Cynthia Marshall NP [address] [place] [address] PCP - General Family Medicine 09/10/23 [facility] 01/01/25 04/27/25 Luis [facility]NA 04/21/25 documented as of this encounter
--- OUTSIDE RECORDS SUMMARY | 2025-05-18 17:55 | XMS_ITS | Encounter Summary ---
Author Organization [employer] Address [address] [facility] 7t [place] [address] Care Team Providers Care Induction Coordination Power Engineer Name Role Phone Nayelireji Cynthia ROSARIO Primary Care Provider [phone] Encounter Details Date Type Department Care Team (Late st Contact Info) Description 02/02/2025 Orders Only [facility] [address] [place] [address] Severino Santoro, PharmD [address] [place] [address] Social History Tobacco Use Types Packs/Day Years [...] [facility] [address] [place] [address] Pauline Warner, JagD [address] [place] [address] documented as of this encounter Visit Diagnoses Not on filedocumented in this encounter Additional Health Concerns Assessment Noted Time PHQ-9 Depression Total Score: 3 01/22/20 10:47 AM EDT documented as of this encounter Care Teams Induction Coordination Power Engineer Relationship Specialty Start Date End Date Cynthia Marshall NP [address] [place] [address] PCP - General Family Medicine 09/10/23 [facility] 01/01/25 04/27/25 Luis [facility] 04/21/25 documented as of this encounter
--- OUTSIDE RECORDS SUMMARY | 2025-05-18 17:55 | XMS_ITS | Encounter Summary ---
Author Organization [employer] Address [address] [facility] 7t [place] [address] Care Team Providers Care Passport Support Associate Name Role Phone Cynthia Marshall NP Primary Care Provider [phone] Reason for Visit * Reason Onset Date Comments Hospital Follow-up 04/21/2025 Encounter Details Date Type Department Care Team ([facility] st Contact Info) Description 04/21/2025 Telephone [facility] [address] [place] [address] Cynthia Marshall NP [address] [place] [address] Hospital Follow-up Social History Tobacco Use Types [...] from pt requesting a HDF appt. [facility]: [facility] Date of admission: 04/12 Discharge date: 04/18 Diagnosed: heart failure and pneumonia *Send message to [facility] Care Coordinators Contact Jalyn at [facility] [phone] documented in this encounter Plan of Treatment Upcoming Encounters Date Type Department Care Team (Late st Contact Info) Description 01/22/2026 9:30 AM EDT Medication Management [facility] [address] [place], [place] [phone] Pauline Warner, PharmD [address] [place], [place] [phone] documented as of this encounter Visit Diagnoses Not on filedocumented in this encounter Additional Health Concerns Assessment Noted Time PHQ-9 Depression Total Score: 3 01/22/20 25 10:47 AM EDT documented as of this encounter Care Teams Passport Support Associate Relationship Specialty Start Date End Date Cynthia Marshall NP [address] [place] [address] PCP - General Family Medicine 09/10/23 [facility] 01/01/25 04/27/25 Luis MCDONNELL 04/21/25 documented as of this encounter
--- OUTSIDE RECORDS SUMMARY | 2025-05-18 17:55 | XMS_ITS | Encounter Summary ---
Author Organization [employer] Address [address] [facility] 7t [place] [address] Care Team Providers Care Marking Room Supervisor Name Role Phone Virginia Perez Primary Care Provider Iveth Blanca Ferraro MD Primary Care Pro vider Cynthia Marshall NP Primary Care Provider [phone] Encounter Details Date Type Department Care Team (Late Contact Info) Description 01/01/2023 Abstract [facility] [address] [place] [address] Virginia Perez FNP Social History Tobacco Use [...] Encounters Date Type Department Care Team (Late Contact Info) Description 01/22/2026 9:30 AM EDT Medication Management [facility] [address] [place], [place] [phone] Pauline Warner, JagD [address] [place] [address] documented as of this encounter Visit Diagnoses Not on filedocumented in this encounter Care Teams Marking Room Supervisor Relationship Specialty Start Date End Date Virginia Perez FNP PCP - General Family Medicine 04/28/22 03/28/23 Blanca Crowley MD [address] [place] [address] PCP - General Internal Medicine 03/29/23 09/09/23 Cynthia Marshall NP [address] [place] [address] PCP - General Family Medicine 09/10/23 [facility] 01/01/25 04/27/25 Luis [facility] 04/21/25 documented as of this encounter
--- OUTSIDE RECORDS SUMMARY | 2025-05-18 17:55 | XMS_ITS | Encounter Summary ---
Author Organization [employer] Address [address] [facility] 7t [place] [address] Care Team Providers Care Crutching Contractor Name Role Phone Cynthia Marshall NP Primary Care Provider [phone] Encounter Details Date Type Department Care Team ([facility] st Contact Info) Description 07/04/2024 Orders Only [facility] [address] [place], [place] [phone] Cynthia Marshall NP [address] [place] [address] Stage 3b chronic kidney disease (CMS/HCC) Social [...] Description 01/22/2026 9:30 AM EDT Medication Management [facility] [address] [place] [address] Pauline Warner PharmD [address] [place] [address] documented as of this encounter Procedures Procedure Name Priority Date/Time Associated Diagnosis Comments NM KIDNEY FLOW/FUNCTION W PHARMACOLOGICAL INTERVENTION Routine 07/31/2024 10:58 AM EST documented in this encounter Results * NM Kidney Flow/Function w/ Pharmacological Intervention (07/31/2024 10:58 AM EST) Anatomical Region Laterality Modality Body Nuclear Medicine 07/31/2024 10:5 8 AM EST Narrative 08/08/2024 10:06 AM EST [facility] [address] [place] [address] Nuclear Medicine Report Signed Patient: Ethan Cristina MR#: [id number] 0 : 1950 Acct:[id number] Age/Sex: 73 / M ADM Date: 07/31/24 Loc: S[facility] Attending Dr: Kong Duarte MD Ordering Physician: Kong Duarte MD Date of Service: 07/31/24 Procedure(s): NM renal flow w pharm int Accession Number(s): [id number] cc: Kong Duarte MD; Cynthia Marshall NP [...] Janice Pate MD 08/08/2024 10:03 AM [facility] Dictated By: Janice Pate Signed By: <Electronically signed by Janice Pate in OV> 08/08/24 1003 DD/ 1058 TD/TT: 07/31/24 1345 Last Remodeler Repairer: Procedure Note Donotuseinterpreter, Image - 08/08/[address] [address] Nuclear Medicine Report Signed Patient: Ethan CristinaMR#: [id number] 0 : 1950cct:[id number] Age/Sex: 73 / MADM Date: 07/31/24 Loc: SUSAN Attending Dr: Kong Duarte MD Ordering Physician: Kong Duarte MD Date of Service: 07/31/24 Procedure(s): NM renal flow w pharm int Accession Number(s): [id number] cc: Kong Duarte MD; Cynthia Marshall NP [...] Janice Pate MD 08/08/2024 10:03 AM [facility] Dictated By: Janice Pate Signed By: <Electronically signed by Janice Pate in OV> 08/08/24 1003 DD/ 1058 TD/TT: 07/31/24 1345 Last Remodeler Repairer: [facility] External Provider IMG NM PROCEDURES Final Result documented in this encounter Visit Diagnoses Diagnosis Stage 3b chronic kidney disease (CMS/HCC) (HCC) documented in this encounter Additional Health Concerns Assessment Noted Time PHQ-9 Depression Total Score: 0 01/21/20 24 11:17 AM EDT documented as of this encounter Care Teams Crutching Contractor Relationship Specialty Start Date End Date Cynthia Marshall NP [address] [place] [address] PCP - General Family Medicine 09/10/23 [facility] 01/01/25 04/27/25 Luis [facility] 04/21/25 documented as of this encounter
--- OUTSIDE RECORDS SUMMARY | 2025-05-18 17:55 | XMS_ITS | Encounter Summary ---
Author Organization [employer] Address [address] [facility] 7t [place] [address] Care Team Providers Care Receiver Bulk System Name Role Phone Cynthia Marshall NP Primary Care Provider [phone] Reason for Visit * Reason Onset Date Comments Returning Call 01/12/2025 Encounter Details Date Type Department Care Team ([facility] st Contact Info) Description 01/12/2025 Telephone [facility] [address] [place] [address] Cynthia Marshall NP [address] [place] [address] Returning Call Social History Tobacco Use Types [...] Description 01/22/2026 9:30 AM EDT Medication Management [facility] [address] [place] [address] Pauline Warner PharmD [address] [place] [address] documented as of this encounter Visit Diagnoses Not on filedocumented in this encounter Additional Health Concerns Assessment Noted Time PHQ-9 Depression Total Score: 0 01/21/20 24 11:17 AM EDT documented as of this encounter Care Teams Receiver Bulk System Relationship Specialty Start Date End Date Cynthia Marshall NP [address] [place] [address] PCP - General Family Medicine 09/10/23 [facility] 01/01/25 04/27/25 [facility] 04/21/25 documented as of this encounter
--- OUTSIDE RECORDS SUMMARY | 2025-05-18 17:56 | XMS_ITS | Clinical Summary ---
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 Name Role Phone Cynthia Marshall NP Primary Care Provider [phone] Allergies No known active allergies Medications fluticasone (Flonase) 50 MCG/ACT nasal sprayIndication s:Nasal congestion INSTILL 1 SPRAY IN EACH NOSTRIL ONCE DAILY IN THE MORNING 16 g 08/22/19 24 Active Blood Glucose Monitoring Suppl (MakeMeReachyle [place] Lite) w/Device kitIndications: Type 2 diabetes mellitus with other specified complication, without long-term current use of insulin ([facility]) Use to test blood sugar bid dx dm 1 kit 12/05/19 24 Active glucose blood (OneTouch Ultra) test stripIndication s:Type 2 diabetes mellitus with other specified complication, without long-term current use of insulin ([facility]) test blood sugar as needed, in the morning before breakfast 100 each 11 12/05/19 24 Active Lancets 33G miscIndications :Type 2 diabetes mellitus with other specified complication, without long-term current use of insulin ([facility]) 100 each 2 times daily. [...] 2.5 MG tabletIndicatio ns:Paroxysmal atrial fibrillation (CMS/HCC) (HCC) Take 1 tablet (2.5 mg) by mouth 2 times daily. 180 tablet 1 01/22/20 25 Active atorvastatin (Lipitor) [...] tablet 1 04/30/20 25 Active furosemide (Lasix) 80 MG tablet Take 1 tablet by mouth 2 times daily. 04/18/20 25 Active metOLazone (Zaroxolyn) 2.5 MG tablet Take 1 tablet by mouth 3 (three) times a week. On Sunday, Sunday and Sunday Active lisinopril 40 MG tabletIndicatio ns:Essential hypertension TAKE 1 TABLET BY MOUTH EVERY MORNING 90 tablet 1 01/22/20 25 025 Discontinued(Wv d list cleanup (will not trigger notification to Pharmacy)) omeprazole (PriLOSEC) [address] capsule Take 1 capsule (40 mg) by mouth in the morning and 1 capsule (40 mg) in the evening. Do not crush or chew. 60 capsule 02/03/20 25 025 Discontinued(Re order (will not trigger notification to Pharmacy)) ferrous sulfate 325 (65 Fe) MG tablet [...] 14 days. 28 tablet 04/30/20 25 025 Discontinued(Me d list cleanup (will not trigger notification to Pharmacy)) Active [...] scanned in chart, Reviewed elder services in [place] Continue home VNA, Rectal bleeding 01/21/2025 Gastrointestinal hemorrhage associated with chronic gastritis 01/21/2025 Assessment & Plan (01/21/2025 10:35 AM EDT): Continue omeprazole 40 mg bid Referral to GI Stable cbc repeat next week Pt denies bleeding KELSEY (acute kidney injury) 01/21/2025 Assessment & Plan (01/21/2025 10:40 AM EDT): Resume lasix, and lisinopril 40 mg per discharge Referral to renal Dementia with anxiety (CMS/HCC) 12/04/2024 Assessment & Plan (05/18/2025 4:21 PM EDT): Assessment & Plan (12/04/2024 5:17 PM EDT): Referred for mini mental, Will order brain MRI, non acute change Open wound of skin 12/04/2024 Assessment & Plan (12/04/2024 5:16 PM EDT): Buttock wound, referral to wound care and home VNA Housing situation unstable 12/04/2024 Assessment & Plan (12/04/2024 5:17 PM EDT): Concerning pt is living alone at this time 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) 12/05/2023 Assessment & Plan (01/06/2024 2:16 PM EDT): Above goal today, resume lasix rtc in 2 weeks CHF (congestive heart failur e), NYHA class II, acute on chronic, combined 12/05/2023 Overview (01/21/2025): 2D Echo (11/2024) showing mildly decreased LV systolic function with EF 52% and hypokinesis of the inferolateral wall and basal inferior segment; no vavular pathology. Assessment & Plan (05/18/2025 4:21 PM EDT): Assessment & Plan (04/17/2025 10:17 AM EDT): [...] after discharge. [place] with [place] [facility] will [...] Plan (10/08/2023 5:16 PM EST): Lesion right spiritism suspicious for AK, referral to derm Stage 3b chronic kidney disease ([facility]/HCC) 2023 Assessment & Plan (10/08/2023 5:07 PM EST): Bp above goal today, Referral to renal Anemia due to stage 3a chronic kidney disease ([facility]/HCC) 10/08/2023 Assessment & Plan (01/06/2024 2:15 PM [...] Mild cognitive disorder 06/30/2022 Paroxysmal atrial fibrillation (CMS/HCC) 022 Assessment & Plan (01/21/2025 10:34 AM EDT): [...] 2 diabetes mellitus 06/30/2022 Assessment & Plan (05/18/2025 4:21 PM EDT): Orders: POCT Glucose Assessment & Plan (02/04/2025 2:12 PM EDT): [...] Encounters Date Type Department Care Team Description 05/18/2025 1:15 PM EDT Office Visit [address] [address] Cynthia Marshall NP CHF (congestive heart failure), NYHA class II, acute on chronic, combined (HCC) (Primary Dx); Moderate dementia with anxiety, unspecified dementia type (CMS/HCC) (HCC); Type 2 diabetes mellitus with other specified complication, without long-term current use of insulin ([facility]) 05/18/2025 Travel 05/15/2025 Telephone [facility] [address] [place] [phone] Cynthia Marshall NP Medication Question 05/15/[address] [address] Denisa Wahl MA chart prep 05/14/[address] [address] Cynthia Marshall NP gsssi. 05/14/2025 Orders Only [facility] [address] [place] [phone] Venus Villa MD Hypertension (Primary Dx) 05/11/2025 Telephone [facility] [address] [place] [phone] Cynthia Marshall NP VNA services / FYI 05/05/2025 Telephone [facility] [address] [place] [phone] Rose Anderson PharmD 05/05/2025 Telephone [facility] [address] [place] [address] Cynthia Marshall NP Chart Prep 05/04/2025 Telephone [facility] [address] [place] [phone] Cynthia Marshall NP SSI 05/04/2025 Orders Only GENERIC EXTERNAL DATA DEPARTMENT Provider, Generic External Data 05/03/2025 Orders Only [facility] External Provider, [facility] 05/01/2025 Telephone [facility] [address] [place] [phone] Cynthia Marshall NP fyi 04/30/2025 Refill [facility] [address] [place] [phone] Cynthia Marshall NP Bilateral lower extremity edema 04/29/2025 Refill [facility] [address] [place] [phone] Apryl Ruelas DO Bilateral lower extremity edema 04/29/2025 Refill [facility] [address] [place] [phone] Cynthia Marshall NP 04/27/2025 Telephone [facility] [address] [place] [phone] Cynthia Marshall NP Medication Question 04/27/2025 Orders Only [facility] [address] [place] [phone] Blanca Crowley MD 04/23/2025 Telephone [facility] [address] [place] [phone] Cynthia Marshall NP November 04/21/2025 Patient Outreach [facility] [address] [place] [phone] Cynthia Marshall NP Transition Of Care (Tcm) (HDF scheduled) 04/21/[address] [address] Cynthia Marshall NP Hospital Follow-up 04/14/[address] [address] Shoshana Chaudhary RN 04/14/[address] [address] Blanca Crowley MD CHART PREP 04/12/2025 Orders Only GENERIC EXTERNAL DATA DEPARTMENT Provider, Generic External Data 04/11/2025 10:40 AM EDT Office Visit [facility] [address] [address] Sebastián Ahn MD Pedal edema (Primary Dx) 04/11/2025 Travel 04/09/2025 8:40 AM EDT Office Visit [facility] [address] [address] Apryl Ruelas DO Scrotal edema (Primary Dx); Bilateral lower extremity edema 04/09/[address] [address] Shoshana Chaudhary RN 04/09/2025 Travel 04/07/2025 2:45 PM EDT Office Visit [address] [address] Cynthia Marshall NP Acute on chronic congestive [...] Travel 04/06/2025 3:20 PM EDT Office Visit [facility] [address] [place], [place] [phone] Blanca Mills MD Acute on chronic congestive heart failure, unspecified heart failure type ([facility]/HCC) (Primary Dx) 04/06/2025 Telephone [facility] [address] [place] [phone] Cynthia Marshall NP 04/06/2025 Travel 04/04/2025 Orders Only GENERIC EXTERNAL DATA DEPARTMENT Provider, Generic External Data 03/31/[address] [address] Cynthia Marshall NP Call Back Request 03/30/2025 Orders Only [facility] External Provider, [facility] 03/30/2025 Travel 03/25/2025 9:40 AM EDT Office Visit [facility] [address] [address] Corby Jacobs MD Hypoxia (Primary Dx) 03/25/[address] [address] Cynthia Marshall NP Call Back Request 03/25/2025 Orders Only GENERIC EXTERNAL DATA DEPARTMENT Provider, Generic External Data 03/25/2025 Travel 03/24/[address] [address] Cynthia Marshall NP Durable Medical Equipment 03/23/2025 Orders Only [facility] External Provider, [facility] 03/13/2025 9:30 AM EDT Clinical Support [address] [address] Shoshana Chaudhary, DMITRY CHF (congestive heart failure), NYHA class II, acute on chronic, combined (CMS/[facility]) [I50.43] 03/13/2025 Travel 03/10/2025 10:30 AM EDT Clinical Support [address] [address] Elizabeth Hwang RN Primary hypertension 03/10/[address] [address] Cynthia Marshall NP Durable Medical Equipment 03/10/2025 Travel 03/05/[address] [address] Cynthia Marshall NP Durable Medical Equipment 03/04/2025 10:15 AM EDT Office Visit [facility] [address] [place] [address] Cynthia Marshall NP CHF (congestive heart failure), NYHA class II, acute on chronic, combined (CMS/HCC) (Primary Dx); Essential hypertension; Paroxysmal atrial fibrillation ([facility]); Type 2 diabetes mellitus with other specified complication, without long-term current use of insulin ([facility]); Dyspnea on exertion; Lower extremity edema 03/04/2025 Telephone [facility] [address] [place] [address] Shoshana Chaudhary RN 03/04/2025 Travel 03/03/[address] [address] Kecia Phillips MA CHARTPREP 02/26/[address] [address] Cynthia Marshall NP Need for echo from Last 3 Months Immunizations Immunization Administration Dates Next Due Hep B, adult 06/28/2022,05/26/2022 Influenza High-dose Quadriva lent Preservative Free 05/24/2022 Influenza injectable quadriv alent preservative free 08/01/2021 Influenza, trivalent, adjuvanted 06/09/2013,06/14 Moderna Covid-19 Vaccine 12+ 07/11/2021,01/29/20 21,12/31/2020 Pneumococcal Conjugate PCV 13 07/03/2020 Pneumococcal Conjugate PCV 20 05/24/2022 Pneumococcal Polysaccharide [...] Mass Index 29.57 05/18/2025 1:36 PM EDT Plan of Treatment Upcoming Encounters Date Type Department Care Team (Late st Contact Info) Description 01/22/2026 9:30 AM EDT Medication Management [facility] [address] [place] [address] Pauline Warner, PharmD [address] [place] [address] Health Maintenance Due Date Last Done Comments [...] 11/24/2022 06/28/2022, 05/26/2022 COVID-19 Vaccine ( - 2024- season) 2025 07/11/2021, 01/28/2021, 12/31/2020 Influenza Vaccine (#1) 2025 , 08/01/2021, 06/09/2013, Additional history exists Diabetes: Hemoglobin A1C 07/18/2025 025, 12/19/2024, 12/03/2024, Additional history exists Depression Monitoring 11/16/2025 05/18/2025, 025 Lipid Panel 01/16/2026 01/16/2025, 06/14, 07/11/2021 SDOH Screening 01/21/2026 01/21/2025 Alcohol/Substance Use Screening 05/18/2026 05/18/2025 Tobacco Screening 05/18/2026 05/18/2025 DTaP/Tdap/Td Vaccines (3 - Td or Tdap) [...] without long-term current use of insulin (HCC) XR CHEST 1 VIEW Routine 05/05/2025 9:57 AM EDT US THORACENTESIS Routine 05/05/2025 8:38 AM EDT HIGH SENSITIVITY TROPONIN I Routine 05/04/2025 1:51 AM EDT XR CHEST 1 VIEW Routine 05/03/2025 11:28 PM EDT BASIC METABOLIC PANEL Routine 04/27/2025 12:05 PM EDT XR CHEST 1 VIEW Routine 04/17/2025 8:[address] CHEST WO CONTRAST Routine 04/12/2025 8:10 PM EDT VENOUS BLOOD GAS Routine 04/12/2025 4:32 PM EDT POCT GLUCOSE Routine 04/07/2025 2:48 PM EDT Type 2 diabetes mellitus with other specified complication, without long-term current use of insulin ([facility]) URINALYSIS, COMPLETE, WITH REFLEX TO CULTURE Routine [...] complication, without long-term current use of insulin ([facility]) HEMOGLOBIN A1C Routine 01/16/2025 11:31 AM EDT Type 2 diabetes mellitus with other specified complication, without long-term current use of insulin ([facility]) LIPID PANEL, STANDARD Routine 01/16/2025 11:31 AM EDT Type 2 diabetes mellitus with other specified complication, without long-term current use of insulin ([facility]) from Last 3 Months or Most Recently Relevant to Health Maintenance Results * POCT Glucose (05/18/2025 1:50 PM EDT) Only the most recent of3 resultswithin the time period is included. Glucose Blood, POC 115 60 - 200 mg/dL QC Media Lot # [id number] Lot# Expiration Date Blood Capillary blood specimen / Unknown 05/18/2025 1:50 PM EDT Cynthia Marshall NP POINT OF CARE TEST ENTER/EDIT OR DERABLES Final Result * XR Chest 1 View (05/05/2025 9:57 AM EDT) Only the most recent of5 resultswithin the time period is included. Anatomical Region Laterality Modality Chest Radiographic Smitha ging 05/05/2025 9:57 AM EDT Narrative 05/05/2025 10:16 AM EDT [place] [address] XRay Report Signed Patient: Ehtan Cristina MR#: [id number] 0 : 1950 Acct:[id number] Age/Sex: 74 / M ADM Date: 05/04/25 Loc: [facility] [place]: Itzel CALI Ordering Physician: Itzel Duran Date of Service: 05/05/25 Procedure(s): XR chest 1V Accession Number(s): [id number] cc: Itzel Duran; Blanca Crowley MD Reason for Exam: S/P thoracentesis EXAMINATION: XR CHEST CLINICAL INFORMATION: S/P thoracentesis COMPARISON: May 03, 2025 TECHNIQUE: Frontal view of the chest was obtained. FINDINGS: Persistent right basilar pleural effusion with compressive atelectasis is again identified it appears smaller than the prior but remains moderately sized. No pneumothorax is identified. No other abnormality seen. XR/XR chest 1V IMPRESSION: Moderate right pleural effusion has decreased in size since the prior. There is no pneumothorax. Electronically signed by: Darci Thornton MD 05/05/2025 10:13 AM EDT RP Dictated By: Darci Thornton MD Signed By: <Electronically signed by Darci Thornton MD in OV> 05/05/25 1013 DD/ 0957 TD/TT: 05/05/25 1003 Machinery Engineer: Procedure Note Donotuseinterpreter, Image - 05/05/[address] [address] XRay Report Signed Patient: Tobin Cristina#: [id number] 0 : 1950cct:[id number] Age/Sex: 74 / MADM Date: 05/04/25 Loc: [facility]: Itzel CALI Ordering Physician: Itzel Duran Date of Service: 05/05/25 Procedure(s): XR chest 1V Accession Number(s): [id number] cc: Itzel Duran; Blanca Crowley MD Reason for Exam: S/P thoracentesis EXAMINATION: XR CHEST CLINICAL INFORMATION: S/P thoracentesis COMPARISON: May 03, 2025 TECHNIQUE: Frontal view of the chest was obtained. FINDINGS: Persistent right basilar pleural effusion with compressive atelectasis is again identified it appears smaller than the prior but remains moderately sized. No pneumothorax is identified. No other abnormality seen. XR/XR chest 1V IMPRESSION: Moderate right pleural effusion has decreased in size since the prior. There is no pneumothorax. Electronically signed by: Darci Thornton MD 05/05/2025 10:13 AM EDT RP Dictated By: Darci Thornton MD Signed By: <Electronically signed by Darci Thornton MD in OV> 05/05/25 1013 DD/ 0957 TD/TT: 05/05/25 1003 Machinery Engineer: [facility] External Provider IMG XR PROCEDURES Final Result * US THORACENTESIS (05/05/2025 8:38 AM EDT) Anatomical Region Laterality Modality Abdomen Ultrasound 05/05/2025 8:38 AM EDT Narrative 05/05/2025 10:29 AM EDT [address] [address] Ultrasound Report Signed Patient: Ethan Cristina MR#: [id number] 0 : 1950 Acct:[id number] Age/Sex: 74 / M ADM Date: 05/04/25 Loc: [facility]: Itzel CALI Ordering Physician: Michelle Franco MD Date of Service: 05/05/25 Procedure(s): US thoracentesis Accession Number(s): [id number] cc: Michelle Franco MD; Blanca Crowley MD Reason for Exam: Hypoxic resp failure,R pleural effusion(therapeuti EXAMINATION: ULTRASOUND-GUIDED THORACENTESIS CLINICAL INFORMATION: Hypoxia respiratory failure. Right pleural effusion. COMPARISON: Chest x-ray 05/03/2025. TECHNIQUE: Following explaining ultrasound-guided right thoracentesis procedure, benefits and risk, a written consent was obtained. Patient was placed upright sitting on a stretcher and pulmonary ultrasound imaging obtained through the right posterior chest. An optimal site was selected along the inferior scapular line approximately 10th interspace and marked. The marked area was cleaned and draped in usual sterile manner. 1% lidocaine was injected puncture site. Through a small skin incision a 4 Cambodian citibuddieseh catheter was advanced from the skin into the right pleural space. After observing fluid return, stylet was withdrawn and catheter connected to vacuum bottle via connecting cannula. After obtaining all fluid and observing patient had cough and difficulty breathing, catheter was withdrawn and complete hemostasis achieved at puncture site. Sterile Tegaderm dressing applied at puncture site. Patient tolerated procedure extremely well. Patient was monitored by nursing. A chest x-ray was to obtained subsequently. FINDINGS: On preliminary ultrasound imaging there is moderate right pleural effusion with collapse right lower lobe. Approximately 1.1 L of fluid was drained from the right pleural space. Obtained fluid oral was left in patient's room if diagnostic evaluation was needed. US/US thoracentesis IMPRESSION: Successful ultrasound-guided right thoracentesis performed with 1.1 L of fluid was drained. The exam was terminated as patient had pain and significant bouts of cough. Electronically signed by: Cedric Han MD 05/05/2025 10:27 AM EDT RP Dictated By: Cedric Han MD Signed By: <Electronically signed by Cedric Han MD in OV> 05/05/25 1027 DD/ 0838 TD/TT: 05/05/25 0920 Machinery Engineer: [facility] Procedure Note Donotuseinterpreter, Image - 05/05/[address] [address] Ultrasound Report Signed Patient: Ethan CristinaMR#: [id number] 0 : 1950cct:[id number] Age/Sex: 74 / MADM Date: 05/04/25 Loc: [facility]: Itzel CALI Ordering Physician: Michelle Franco MD Date of Service: 05/05/25 Procedure(s): US thoracentesis Accession Number(s): [id number] cc: Michelle Franco MD; Blanca Crowley MD Reason for Exam: Hypoxic resp failure,R pleural effusion(therapeuti EXAMINATION: ULTRASOUND-GUIDED THORACENTESIS CLINICAL INFORMATION: Hypoxia respiratory failure. Right pleural effusion. COMPARISON: Chest x-ray 05/03/2025. TECHNIQUE: Following explaining ultrasound-guided right thoracentesis procedure, benefits and risk, a written consent was obtained. Patient was placed upright sitting on a stretcher and pulmonary ultrasound imaging obtained through the right posterior chest. An optimal site was selected along the inferior scapular line approximately 10th interspace and marked. The marked area was cleaned and draped in usual sterile manner. 1% lidocaine was injected puncture site. Through a small skin incision a 4 Cambodian Yueh catheter was advanced from the skin into the right pleural space. After observing fluid return, stylet was withdrawn and catheter connected to vacuum bottle via connecting cannula. After obtaining all fluid and observing patient had cough and difficulty breathing, catheter was withdrawn and complete hemostasis achieved at puncture site. Sterile Tegaderm dressing applied at puncture site. Patient tolerated procedure extremely well. Patient was monitored by nursing. A chest x-ray was to obtained subsequently. FINDINGS: On preliminary ultrasound imaging there is moderate right pleural effusion with collapse right lower lobe. Approximately 1.1 L of fluid was drained from the right pleural space. Obtained fluid oral was left in patient's room if diagnostic evaluation was needed. US/US thoracentesis IMPRESSION: Successful ultrasound-guided right thoracentesis performed with 1.1 L of fluid was drained. The exam was terminated as patient had pain and significant bouts of cough. Electronically signed by: Cedric Han MD 05/05/2025 10:27 AM EDT Dictated By: Cedric Han MD Signed By: <Electronically signed by Cedric Han MD in OV> 05/05/25 1027 DD/ 0838 TD/TT: 05/05/25 0920 Machinery Engineer: [facility] External Provider IMG US PROCEDURES Final Result * High Sensitivity Troponin I (05/04/2025 1:51 AM EDT) TROPONIN I HIGH SENSITIVITY 28.0 <3.5 - 35.0 ng/L [facility] Comment:The [place] high sens itivity Troponin-I results should beused in conjunction with other diagnostic information suchas ECG, clinical observations and information, and patientsymptoms to aid in the diagnosis of [place]. 05/04/2025 1:51 AM EDT 05/04/2025 1:54 AM EDT Generic External Data Provider LAB BLOOD ORDERAB LES Final Result Performing Organization Address City/[facility] Co de Phone Number [facility] [address] [place] [address] [phone] * (ABNORMAL) Basic Metabolic Panel (04/27/2025 12:05 PM EDT) Only the most recent of2 resultswithin the time period is included. Sodium 139 135 - 145 mmol/L [facility] Potassium 3.4 3.3 - 5.1 mmol/L [facility] Chloride 104 96 - 108 mmol/L [facility] Carbon Dioxide 24 22 - 29 mmol/L [facility] Anion Gap 14 12 - 20 [facility] Urea Nitrogen (BUN) 80(H) 9 - 16 mg/dL [facility] Creatinine, Serum 2.72(H) 0.5 - 1.4 mg/dL [facility] Estimated Glomerular Filt Rate 23 [facility] Comment:Chronic Kidney Disea se: Estimated GFR < 60 mL/min/[id number] Kidney Disease: Estimated GFR < 15 mL/min/1.73m2 Glucose 144(H) 60 - 115 mg/dL [facility] Calcium 9.2 8.4 - 10.2 mg/dL [facility] 04/27/2025 12:0 5 PM EDT 04/27/2025 12:48 PM EDT Blanca Anderson MD LAB BLOOD ORDERAB LES Final Result Performing Organization Address [facility] Co de Phone Number [facility] [address] [place] [address] [phone] * CT Chest w/o Contrast (04/12/2025 8:10 PM EDT) Anatomical Region Laterality Modality Body, Chest Computed Tomogra phy 04/12/2025 8:10 PM EDT Narrative 04/12/2025 8:11 PM EDT [address] [address] [address] Scan Report Signed Patient: Ethan Cristina MR#: [id number] 0 : 1950 Acct:[id number] Age/Sex: 74 / M ADM Date: 04/12/25 Loc: [facility]: Vivek Jaramillo MD Ordering Physician: Vivek Jaramillo MD Date of Service: 04/12/25 Procedure(s): CT chest wo IV con Accession Number(s): [id number] cc: Vivek Jaramillo MD; Blanca Crowley MD Report Number: [id number]: Total DLP = 0.00 mGy-cm CLINICAL HISTORY: [...] on 04/12/2025 20:10:18 Dictated By: Adelia De Santigao MD Signed By: <Electronically signed by Adelia De Santiago MD in OV> 04/12/252010 DD/ 09 TD/TT: 04/12/252009 Machinery Engineer: Procedure Note Donotuseinterpreter, Image - 04/12/[address] [address] [address] Scan Report Signed Patient: Ethan CristinaMR#: [id number] 0 : 1950cct:[id number] Age/Sex: 74 / MADM Date: 04/12/25 Loc: [facility] 459-[address]: Vivek Jaramillo MD Ordering Physician: Vivek Jaramillo MD Date of Service: 04/12/25 Procedure(s): CT chest wo IV con Accession Number(s): [id number] cc: Vivek Jaramillo MD; Blanca Crowley MD Report Number: [id number]: Total DLP = 0.00 mGy-cm CLINICAL HISTORY: [...] in OV> 04/12/252010 DD/ 09 TD/TT: 04/12/252009 Machinery Engineer: [facility] External Provider IM CT PROCEDURES Edited Result - Final * (ABNORMAL) VENOUS BLOOD GAS (04/12/2025 4:32 PM EDT) Only the most recent of3 resultswithin the time period is included. VBG pH 7.44(H) 7.32 - 7.43 [facility] Comment:METER #: [id number] additional_comment: Cb snowma VBG PCO2 32 mmHg [facility] Comment:METER #: [id number] additional_comment: Cb snowma VBG PO2 53 mmHg [facility] Comment:METER #: [id number] additional_comment: Cb snowma VBG Base Excess -0.5 mmol/L [facility] Comment:METER #: [id number] additional_comment: César carpio VBG HCO3 22 22 - 26 mmol/L [facility] Comment:METER #: [id number] additional_comment: César carpio O2 Sat, [place] 75.0 % [facility] Comment:METER #: [id number] additional_comment: Cb balaji 04/12/2025 4:32 PM EDT 04/12/2025 4:36 PM EDT us Generic External Data Provider LAB BLOOD ORDERAB LES Final Result [facility] [address] [place] [phone] * (ABNORMAL) Urinalysis, Complete, with Reflex to Culture (04/04/2025 10:11 AM EDT) Color Urine Yellow [facility] Appearance Urine Clear [facility] PH 6.0 5.0 - 9.0 [facility] Glucose Urine UA Negative Negative mg/dL [facility] Urine Blood Negative Negative [facility] Specific [place] - Urine 1.015 1.005 - 1.025 [facility] Urine Protein 100 (2+)(A) Neg-Trace mg/dL [facility] Urine Ketones Negative Negative mg/dL [facility] Nitrite Urine Negative Negative [facility] Leukocyte Esterase Urine Trace(A) Negative [facility] RBC Urine 0-2 0 - 2 /HPF [facility] Urine WBC 0-5 0 - 5 /HPF [facility] Urine Squamous Epithelial Cell 0-2 0 - 2 /HPF [facility] Urine Bacteria None Seen None Seen [facility] Hyaline Casts, Urine 0-2 0 - 2 /LPF [facility] 04/04/2025 10:1 1 AM EDT 04/04/2025 10:16 AM EDT Narrative [facility] - 04/04/2025 10:24 AM EDT Urine, Clean Catch us Generic External Data Provider LAB URINE ORDERAB LES Final Result [facility] [address] [place] [phone] * XR Chest 2 Views (04/04/2025 9:51 AM EDT) Anatomical Region Laterality Modality Chest Radiographic [place] ging 04/04/2025 9:51 AM EDT Narrative 04/04/2025 9:52 AM EDT [address] [address] XRay Report Signed Patient: Ethan Cristina MR#: [id number] 0 : 1950 Acct:[id number] Age/Sex: 74 / M ADM Date: 04/04/25 Loc: [facility].ED Attending Dr: Ordering Physician: Ernestine Vazquez NP Date of Service: 04/04/25 Procedure(s): XR chest 2V Accession Number(s): [id number] cc: Ernestine Vazquez NP; Blanca Crowley MD CLINICAL HISTORY: sob Exam: PA and lateral views of the chest. Comparison: January 22, 2025. Findings: Interval increase in size of a moderate-sized right pleural effusion. There is a small left pleural effusion. There is obscuration of the inferior right heart border in the right hemidiaphragm due to the pleural effusion. Cardiac silhouette is yccn-tm-wlknafegfy enlarged. Central interstitial markings are diffusely prominent. Degenerative change of both shoulder joints. Impression: Congestive heart failure. This document has been electronically signed by: Ajith Muniz MD on 04/04/2025 09:51:59 Dictated By: Ajith Muniz MD Signed By: <Electronically signed by Ajith Muniz MD in OV> 04/04/2552 DD/ 0 TD/TT: 08/23/25 0951 Machinery Engineer: Procedure Note Donotuseinterpreter, Image - 04/04/[address] [address] XRay Report Signed Patient: Ethan CristinaMR#: [id number] 0 : 3Acct:[id number] Age/Sex: 74 / MADM Date: 04/04/25 Loc: [facility].ED Attending Dr: Ordering Physician: Ernestine Vazquez NP Date of Service: 04/04/25 Procedure(s): XR chest 2V Accession Number(s): [id number] cc: Ernestine Vazquez NP; Blanca Crowley MD CLINICAL HISTORY: sob Exam: PA and lateral views of the chest. Comparison: January 22, 2025. Findings: Interval increase in size of a moderate-sized right pleural effusion. There is a small left pleural effusion. There is obscuration of the inferior right heart border in the right hemidiaphragm due to the pleural effusion. Cardiac silhouette is ecqr-dc-bbypagomub enlarged. Central interstitial markings are diffusely prominent. Degenerative change of both shoulder joints. Impression: Congestive heart failure. This document has been electronically signed by: Ajith Muniz MD on 04/04/2025 09:51:59 Dictated By: Ajith Muniz MD Signed By: <Electronically signed by Ajith Muniz MD in OV> 04/04/25 0952 DD/ TD/TT: 04/04/25950 Machinery Engineer: [facility] External Provider IMG XR PROCEDURES Edited Result - Final * SARS-CoV-2 RNA, Influenza A/B, and RSV RNA, Ql NAAT (04/04/2025 9:25 AM EDT) Influenza A PCR NEGATIVE Negative [facility] Influenza B PCR NEGATIVE Negative [facility] Resp Syncy Virus RNA Qual PCR NEGATIVE Negative [facility] SARS COV2 PCR NEGATIVE Negative [facility] Comment:All test results mus t [...] use by authorized laboratories.Testing performed on the [employer] GeneXpert utilizingreal-time RT-PCR.All SARS CoV2 and positive influenza A/B results arereported to [facility]. 04/04/2025 9:25 AM EDT 04/04/2025 9:28 AM EDT us Generic External Data Provider LAB MICROBIOLOGY - GENERAL ORDERABLES Final Result [facility] [address] [place] [phone] * (ABNORMAL) CBC auto differential (03/04/2025 11:18 AM EDT) White Blood Count 6.7 4.8 - 10.8 X10*3/uL [facility] Red Blood Count 3.65(L) 4.60 - 5.80 X10*6/uL [facility] Hemoglobin 9.9(L) 14.0 - 18.0 g/dl [facility] Hematocrit 32.8(L) 42.0 - 52.0 % [facility] Mean Corpuscular Volume 89.9 80.0 - 98.0 fL [facility] Mean Corpuscular Hemoglobin 27.1 27.0 - 33.0 pg [facility] Mean Corpuscular HGB Conc 30.2(L) 31.0 - 36.0 g/dl [facility] Red Cell Distribution Width 17.2(H) 11.0 - 16.0 % [facility] Platelet Count 249 160 - 400 X10*3/uL [facility] Mean Platelet Volume 9.8 9.4 - 12.4 fL [facility] Neutrophils Percent Auto 81.3(H) 45 - 73 % [facility] Imm Gran Pct Auto 0.3 0.0 - 0.4 % [facility] Lymphocytes Percent Auto 12.7(L) 20 - 40 % [facility] Monocytes Percent Auto 4.8 2 - 11 % [facility] Eosinophils Percent Auto 0.6 0 - 4 % [facility] Basophils Percent Auto 0.3 0 - 2 % [facility] NRBC Pct Auto 0.0 0.0 - 0.2 /100WBC [facility] Neutrophils Absolute Auto 5.4 2.0 - 8.3 x10*3/uL [facility] Imm Gran Abs Auto 0.02 0.00 - 0.03 X10*3/uL [facility] Lymphocytes Absolute Auto 0.9(L) 1.2 - 4.9 X10*3/uL [facility] Monocytes Absolute Auto 0.3 0.1 - 1.2 X10*3/uL [facility] Eosinophils Absolute Auto 0.0 0.0 - 0.4 X10*3/uL [facility] Basophils Absolute Auto 0.0 0.0 - 0.2 X10*3/uL [facility] NRBC Abs Auto 0.000 0.0 - 0.012 X10*3/uL [facility] Blood Venous blood specimen / Unknown 03/04/2025 11:18 AM EDT 03/04/2025 1:09 PM EDT Cynthia Marshall SUSTAINMENT LOGISTICS ANALYST LAB BLOOD ORDERABLES Final Resul t [facility] [address] [place] [phone] * Magnesium (03/04/2025 11:18 AM EDT) Magnesium 1.6 1.6 - 2.6 mg/dL [facility] Blood Venous blood specimen / Unknown 03/04/2025 11:18 AM EDT 03/04/2025 1:09 PM EDT us Blanca Lujan MD LAB BLOOD ORDERABLES Final Result [facility] [address] [place] [phone] * (ABNORMAL) Comprehensive Metabolic Panel (03/04/2025 11:18 AM EDT) Sodium 140 135 - 145 mmol/L [facility] Potassium 4.3 3.3 - 5.1 mmol/L [facility] Chloride 108 96 - 108 mmol/L [facility] Carbon Dioxide 26 22 - 29 mmol/L [facility] Anion Gap 10(L) 12 - 20 [facility] Urea Nitrogen (BUN) 33(H) 9 - 16 mg/dL [facility] Creatinine, Serum 1.93(H) 0.5 - 1.4 mg/dL [facility] Estimated Glomerular Filt Rate 34 [facility] Comment:Chronic Kidney Disea se: Estimated GFR < 60 mL/min/1.55k2Jiejfp Kidney Disease: Estimated GFR < 15 mL/min/1.73m2 Glucose 149(H) 60 - 115 mg/dL [facility] Calcium 8.9 8.4 - 10.2 mg/dL [facility] Bilirubin, Total 1.3(H) 0.0 - 1.0 mg/dL [facility] Aspartate Amino Transferase 29 5 - 37 U/L [facility] Alanine Aminotransferase 20 0 - 40 U/L [facility] Total Protein 7.2 6.5 - 8.0 g/dL [facility] Albumin Level 3.3(L) 3.5 - 5.0 g/dL [facility] Alkaline Phosphatase 219(H) 39 - 117 U/L [facility] Blood Venous blood specimen / Unknown 03/04/2025 11:18 AM EDT 03/04/2025 1:09 PM EDT us Cynthia Marshall NP LAB BLOOD ORDERABLES Final Resul t [facility] [address] [place] [phone] * Hemoglobin A1c (01/16/2025 11:31 AM EDT) Hemoglobin A1c 5.0 <6.0 % [facility] Comment:Hemoglobin A1C Refer ence Range Adults: 4.8 - 6.0 % Non diabetic: < 6.0 % Goal: < 7.0 %Additional Action Suggested: > 8.0 %Note: Hemoglobin A1c results are invalid for patients with abnormal amounts of HbF. Blood transfusions may impact the HbA1c concentration in the patient sample. Estimated Average Glucose 97 mg/dL [facility] Comment:eAG = Estimated ave rage glucose which is %A1C expressed asaverage glucose, using the formula of the T5Y-NdbapudOywnbtn Glucose study (ADAG), Diabetes Care, Vol.31,#8,Mar. 2007 Blood Venous blood specimen / Unknown 01/16/2025 11:31 AM EDT 01/16/2025 1:21 PM EDT us Sheila Rockwell MD LAB BLOOD ORDERABLES Final Res ult Performing Organization Address [facility] Co de Phone Number [facility] [address] [place] [phone] * (ABNORMAL) Lipid Panel, Standard (01/16/2025 11:31 AM EDT) Triglycerides 69 <150 mg/dL [facility] Comment:Desirable Triglyceri de: less than 150 mg/dLBorderline High Triglyceride 150-199 mg/dLHigh Triglyceride: 200-499 mg/dLVery High Triglyceride: greater than or equal to 5OO mg/dL Cholesterol 129 <200 mg/dL [facility] Comment:Desirable Cholestero l: less than 200 mg/dLBorderline High Cholesterol: 200-239 mg/dLHigh Cholesterol: greater than 239 mg/dL LDL Cholesterol Calculated 78 <100 mg/dL [facility] Comment:Desirable LDL: less than 100 mg/dLNear Optimal/Above Optimal LDL: 110- 129 mg/dLBorderline High LDL: 130-159 mg/dLHigh LDL: 160-189 mg/dLVery High LDL: greater than or equal to 190 mg/dL HDL Cholesterol 38(L) >40 mg/dL [facility] Comment:Desirable HDL: great er than 40 mg/dL Note: This HDL assay may give artificially low results in patients with liver disease. 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
--- NOTE | 2025-05-18 18:49 | PHA.MEDREC ---
Pharmacy Consult ? Medication Reconciliation Pharmacy has completed the medication reconciliation. Patient is a poor historian. Utilized claims and discharge packet from 05/07/25 to confirm med list.
[2025-05-18] MEDS: Bumetanide 1 MG/4 ML VIAL IVPUSH (18:50)
--- NOTE | 2025-05-18 19:03 | ECG_ITS ---
Test Reason : CAD Blood Pressure : */* mmHG Vent. Rate : 57 BPM Atrial Rate : * BPM P-R Int : * ms QRS Dur : 88 ms QT Int : 462 ms P-R-T Axes : * 49 211 degrees QTcB Int : 449 ms Atrial fibrillation with slow ventricular response Low voltage QRS T wave abnormality, consider inferolateral ischemia Abnormal ECG When compared with ECG of 03-May-2025 22:03, No significant change was found Referred By: Pili Larios Electronically Signed By: NICOLA DIALLO MD
[2025-05-18 19:52] LABS: Troponin-I High Sensitivity 35.1 ng/L (<3.5-35.0)
--- NOTE | 2025-05-18 20:34 | PM.IMHP ---
History of Present Illness Date of Service: 05/18/25 Chief Complaint: Blood in the stool 74-year-old male with a past medical history of HTN, HLD, dm, CAD, CKD, CHF-35-40%, AFib on Eliquis, anemia, hyperparathyroidism, osteoarthritis, memory impairment;hx C diff infection; presented to the hospital today with a chief complaint of bilateral leg swelling and pain. Patient also reports that over the past couple days he has been having blood in the stool. Denies any chest pain or palpitations. Denies any abdominal discomfort. Review of all other systems is negative except mentioned above ER course: Per ER team, patient noted bilateral leg swelling with chronic venous stasis ulcers; patient on labs noted to have hemoglobin of 6.9. Stool guaiac was positive. Patient being order for 1 unit of PRBC. [facility]LY [facility], [facility] Medical History Anemia in chronic kidney disease (CKD) Hypertension Uncontrolled hypertension Congestive heart failure CKD (chronic kidney disease) CHF (congestive heart failure) CKD (chronic kidney disease) stage 4, GFR 15-29 ml/min Obesity (BMI 30.0-34.9) Cardiomyopathy Stroke Chronic atrial fibrillation CKD (chronic kidney disease) Former smoker Depression Diabetes High cholesterol Family History Father No problems noted. Mother Diabetes Hypertension Cancer Son No problems noted. Son No problems noted. Son No problems noted. Daughter No problems noted. Daughter No problems noted. Surgical History History of aneurysm History of shoulder surgery Social History Household Members: None Household Members Other:: Housing: Apartment Are you a primary career services manager to a significant other at home: No Do you presently have visiting nurse or other home services: Yes Alcohol intake: never Comment: Sitter at bedside Patient Tobacco Use Status: Former Tobacco user Smoked in Last 30 Days: No Use of substances other than those prescribed or required for medical reasons: No Substance Use Type: Marijuana Advance Directives: Yes Advance Directives on File: Yes Advance Directives Date on File: 12/17/24 service: No Current occupational status: disabled Meds Allergies Allergy/AdvReac Type Severity Reaction Status Date / Time No Known Allergies (No Known Allergy Verified 05/18/25 14:33 Allergies*) Active Medications: Current Medications Acetaminophen (Acetaminophen 325 Mg Tablet) 650 mg PO Q6H PRN PRN Reason: Pain, Mild 1-3,fever,headache Bumetanide (Bumetanide 1 Mg/4 Ml Vial) 1 mg IVPUSH DAILY [facility]; Protocol Calcium Carbonate (Calcium Carbonate 750 Mg Tab.Chew) 750 mg PO Q4H PRN PRN Reason: Heartburn Magnesium Hydroxide (Milk Of Magnesia 30 Ml Oral.Susp) 30 ml PO DAILY PRN PRN Reason: Constipation Melatonin (Melatonin 3 Mg Tablet) 6 mg PO BEDTIME PRN PRN Reason: Insomnia Pantoprazole Sodium (Pantoprazole Sodium 40 Mg/10 Ml Vial) 40 mg IVPUSH DAILY@0630 [facility] Sodium Chloride (0.9 % Sodium Chloride Flush 3 Ml Syringe) 3 ml IVFLUSH QSHIFT [facility] Home Medications ?Medication ?Instructions ?Recorded ?Confirmed ?Last Taken ?Type blood-glucose meter #1 ea 05/14/20 01/14/24 Unknown History lancets #100 ea 05/14/20 01/14/24 Unknown History atorvastatin 40 mg tablet 40 mg PO DAILY 12/19/22 05/18/25 04/06/25 History apixaban 2.5 mg tablet (Eliquis) 2.5 mg PO BID 12/05/24 05/18/25 04/06/25 History ferrous sulfate 325 mg (65 mg 325 mg PO BID 03/30/25 05/18/25 04/06/25 History iron) tablet calcitriol 0.25 mcg capsule 0.25 mcg PO Q48H 05/04/25 05/18/25 Unknown History metolazone 2.5 mg tablet 2.5 mg PO MOWEFR 05/04/25 05/18/25 Unknown History Physical Exam Vital Signs and Narrative: Vital Signs: Last Vital Signs Temp 97.4 F 05/18/25 20:31 Pulse 67 05/18/25 20:31 Resp 14 05/18/25 20:31 BP 140/69 H 05/18/25 20:31 Pulse Ox 95 05/18/25 20:04 O2 Del Method Room Air 05/18/25 20:04 BMI result Body Mass Index 29.1 Gen: Appears be in no acute distress HEENT: NCAT, Moist mucosa. Pulmonary: Vesicular breath sounds, fair air entry CVS: Normal S1-S2 Abdomen: BS+, Soft, Nontender Extremities: Warm well perfused; bilateral leg wounds as dressings in place. Neuro: Alert and awake. Results Labs 05/18/25 15:04 05/18/25 15:04 Labs: Laboratory Results - last 24 hr 05/18/25 05/18/25 05/18/25 14:59 15:04 15:30 MCV 81.3 MCH 24.8 L MCHC 30.5 L RDW 17.7 H Plt Count 149 L MPV 9.1 L Immature Gran % (Auto) 0.4 Neut % (Auto) 73.8 H Lymph % (Auto) 13.9 L [place] % (Auto) 10.2 Eos % (Auto) 1.5 Baso % (Auto) 0.2 Lymph # (Auto) 0.6 L [place] # (Auto) 0.5 Eos # (Auto) 0.1 Baso # (Auto) 0.0 Abs Immat Gran (auto) 0.02 Absolute Neuts (auto) 3.4 Absolute Nucleated RBC 0.040 H Nucleated RBC % (auto) 0.9 H Anion Gap 16 Estim Creat Clear Calc 23.1 Estimated GFR 19 Random Glucose 82 Calcium 8.5 Magnesium 2.1 Total Bilirubin 0.7 AST 51 H ALT 24 Alkaline Phosphatase 138 H Troponin I High Sens 35.8 H NT-Pro-B Natriuret Pep 05779.1 H Total Protein 7.4 Albumin 3.3 L Stool Occult Blood POSITIVE Blood Type B Positive Antibody Screen NEGATIVE Crossmatch See Detail 05/18/25 19:16 MCV MCH MCHC RDW Plt Count MPV Immature Gran % (Auto) Neut % (Auto) Lymph % (Auto) [place] % (Auto) Eos % (Auto) Baso % (Auto) Lymph # (Auto) [place] # (Auto) Eos # (Auto) Baso # (Auto) Abs Immat Gran (auto) Absolute Neuts (auto) Absolute Nucleated RBC Nucleated RBC % (auto) Anion Gap Estim Creat Clear Calc Estimated GFR Random Glucose Calcium Magnesium Total Bilirubin AST ALT Alkaline Phosphatase Troponin I High Sens 35.1 H NT-Pro-B Natriuret Pep Total Protein Albumin Stool Occult Blood Blood Type Antibody Screen Crossmatch Imaging Radiologist's Impressions: Impressions Chest X-Ray 05/18/25 15:05 IMPRESSION: Small layering right effusion with associated passive atelectasis in the right base. Cardiac enlargement. No significant interval change from 05/05/2025. Electronically signed by: Jack Shah MD 05/18/2025 03:19 PM EDT RP Assessment and Plan (1) Anasarca: Status: Acute Plan 74-year-old male with a past medical history of HTN, HLD, dm, CAD, CKD, CHF-35-40%, AFib on Eliquis, anemia, hyperparathyroidism, osteoarthritis, memory impairment;hx C diff infection; presented to the hospital today with a chief complaint of bilateral leg swelling and pain. Admitted for following Bilateral leg swelling/anasarca: Acute on chronic HFrEF: Cardiology consult Daily weights and I's and o's Telemetry Continue Bumex IV daily Venous stasis ulcers: Wound consult Daily dressings CKD: Creatinine at baseline. Nephrology consult. Anemia: Patient has prior history of peptic ulcer disease. IV ppi GI consult Patient being transfused 1 unit of PRBC Hold home Eliquis until cleared by Gastroenterology AFib: Patient Eliquis on hold for now as mentioned above. . DVT prophylaxis: Can not use SCD boots due to venous stasis ulcers. Can not use Eliquis due to anemia/GI bleed. Code status: Full code Quality Stroke Does the patient have a stroke diagnosis?: No VTE Prior VTE?: No VTE Risk Level:: Medical - moderate - high VTE Device Contraindication: Treatment Not Indicated VTE Drug Contraindication: N/A - Med Ordered
--- NOTE | 2025-05-18 21:58 | HO.NURTONUR ---
Pt from pcps office increasing bilat LE edema worsening over the past week and now weeping. Per son, pt also had a bright red stool this am, although pt denies. Pt was found to be anemic, 02/01, and was transfused w/ 1 unit PRBC's. Pt also has very poor kidney function w/ BUN 136 and Cr. 3.19. nt-BNP>11,000. LE venous ulcers dressed w/ xeroform and wrapped w/ gauze. Wound consult pending. Dilaudid given for LE pain and was effective. Pt was given furosemide initially for diuresing, however, not effective and ultimately require bumex and hztz.
--- NOTE | 2025-05-18 23:22 | PC.NURSE ---
Report received and care assumed at 2300 pt. pt initially found to be resting comfortably in his stretcher with feet hanging off the bed without any apparent distress when staff came to bedside for nurse to nurse/change of shift report. Blood transfusion was nearly complete and vitals remain stable. Previous RN applied fresh DCD to his bilateral lower extremities. Pt continues to utilize the urinal independently and staff continue to document I&Os for monitoring purposes. The pt initially reported no pain to this RN upon initial interaction however while RN at bedside at 2314 to take down the RBCs he could be heard moaning, saying in Urdu Oh my God, my legs and he was observed to get frustrated and pull at his bp cuff and appears restless. Blood transfusion completed at 2314, current RN was forced to document vitals for 2047 (based on vitals printed from the shrink pit operator as this was prior to this RN's care assumption, unfortunately a temperature could not be documented as it was not captured on the shrink pit operator). RN to discuss pt's continued lower extremity pain/discomfort with the provider to attempt to assist with comfort.
[2025-05-19] VITALS (8 sets, daily range): BP systolic 111–163; BP diastolic 52–73; PULSE 53–76; RESP 15–23; TEMP 36.1–36.7; O2SAT 93–97; BMI 25.3
--- NOTE | 2025-05-19 01:27 | PC.NURSE ---
hospitalist made aware of the pt's rectal temperature of 95.2 via tiger connect. S/t to the pain to his bilateral lower extremities he is unable/unwilling to tolerate blankets/socks being placed on his legs/feet.
--- NOTE | 2025-05-19 04:00 | MHC.EDTECH ---
pt temp is low. i have educated the pt numerous times to keep the blanket on and to add extra blankets. pt refuses to keep blankets on and only allowed me to put an extra blanket on him but does not fully want it covering him. temp hasn't changed due to his refusal.
[2025-05-19 05:23] LABS: Alanine Aminotransferase 22 U/L (0-40); Albumin Level 3.2 g/dL (3.5-5.0); Alkaline Phosphatase 129 U/L (39-117); Anion Gap 17 (12-20); Aspartate Amino Transferase 34 U/L (5-37); Blood Urea Nitrogen 136 mg/dL (9-16); Calcium 8.6 mg/dL (8.4-10.2); Carbon Dioxide 20 mmol/L (22-29); Chloride 105 mmol/L (96-108); Creatinine Clr Calc Pharmacy 22.4; Estimated Glomerular Filt Rate 19; Potassium 5.2 mmol/L (3.3-5.1); Sodium 137 mmol/L (135-145); Total Protein 7.0 g/dL (6.5-8.0)
--- NOTE | 2025-05-19 06:09 | PC.NURSE ---
Pt can be heard calling out that he wants to go home in [place] and continues to refuse to allow staff to bundle him up with blankets per the recommendation of the hospitalist. Staff has attempted to provided education regarding both items and the importance of him staying for treatment as well as the need for rewarming. Per hospitalist the pt cannot leave at this time
[2025-05-19 09:15] LABS: Magnesium 2.0 mg/dL (1.6-2.6)
[2025-05-19] MEDS: Bumetanide 1 MG/4 ML VIAL IVPUSH (09:25)
--- NOTE | 2025-05-19 09:30 | PC.NURSE ---
assumed care of patient at 0700, patient is awake and alert, agitated. patient is consistently yelling out, patient yells out that he wants to go home, not redirectable, patient is refusing any wound care on his legs, removed dressings on legs. patient medicated per MAR, takes meds whole with water. bilat legs are weeping/red.
--- NOTE | 2025-05-19 09:45 | MHC.EDTECH ---
Patient moved to the hospital bed.
--- NOTE | 2025-05-19 09:55 | PC.NURSE ---
patient moved into hospital bed for comfort, bed lowered and locked in lowest position. bed alarm on
--- NOTE | 2025-05-19 10:03 | PM.CNCAR ---
History of Present Illness History of Present Illness Date of Service: 05/19/25 Requesting physician: Alf Bo Consult reason: congestive heart failure Chief complaint: GI Bleed Narrative: I was consulted to see Ethan in cardiology consultation today for worsening shortness of breath with fluid overload as well as worsening anemia. Patient noted to have guaiac-positive stools. Patient has prior history of GI bleeding and anemia along with paroxysmal atrial fibrillation, heart failure related to [id number] LV systolic dysfunction, advanced renal dysfunction, question cognitive impairment. Patient is a poor historian did not want to give me much history and says that he wants to go home. I asked him why he came to the hospital said he was feeling bad but now he wants to go home. He denies any shortness of breath although visibly appears to be short of breath and fluid overloaded. He is noted to have generalized anasarca with elevated pro BNP consistent with congestive heart failure. He is also noted to have worsening anemia. His Eliquis has been withheld. EKGs shows atrial fibrillation with slow ventricular response, currently on carvedilol only for neurohormonal modulation. Not on angiotensin receptor axis antagonist due to renal insufficiency. Review of Systems Review of Systems: Yes Unobtainable due to mental status PMFSH Past Medical History Medical History (Updated 05/19/25 @ 10:13 by Osmani Chawla MD) Chronic atrial fibrillation Hypoxia Acute on chronic heart failure with preserved ejection fraction (HFpEF) Anemia in chronic kidney disease (CKD) Hypertension Uncontrolled hypertension Congestive heart failure CKD (chronic kidney disease) CHF (congestive heart failure) CKD (chronic kidney disease) stage 4, GFR 15-29 ml/min Obesity (BMI 30.0-34.9) Cardiomyopathy Stroke CKD (chronic kidney disease) Former smoker Depression Diabetes High cholesterol Family History Family History Father No problems noted. Mother Diabetes Hypertension Cancer Son No problems noted. Son No problems noted. Son No problems noted. Daughter No problems noted. Daughter No problems noted. Surgical History Surgical History (Updated 05/15/25 @ 00:02 by Susanna River) History of aneurysm History of shoulder surgery Social History Social History Household Members: None Household Members Other:: Housing: Apartment Are you a primary resident care director to a significant other at home: No Do you presently have visiting nurse or other home services: Yes Alcohol intake: never Comment: Sitter at bedside Patient Tobacco Use Status: Former Tobacco user Smoked in Last 30 Days: No Use of substances other than those prescribed or required for medical reasons: No Substance Use Type: Marijuana Advance Directives: Yes Advance Directives on File: Yes Advance Directives Date on File: 12/17/24 Nutrition Risks: No Nutritional Risk service: No Current occupational status: disabled Meds Allergies Allergy/AdvReac Type Severity Reaction Status Date / Time No Known Allergies (No Known Allergy Verified 05/18/25 14:33 Allergies*) Active Medications: Current Medications Acetaminophen (Acetaminophen 325 Mg Tablet) 650 mg PO Q6H PRN PRN Reason: Pain, Mild 1-3,fever,headache Atorvastatin Calcium (Atorvastatin Calcium 40 Mg Tablet) 40 mg PO DAILY [facility] Last Admin: 05/19/25 09:25 Dose: 40 mg Bumetanide (Bumetanide 1 Mg/4 Ml Vial) 1 mg IVPUSH DAILY [facility]; Protocol Last Admin: 05/19/25 09:25 Dose: 1 mg Calcitriol (Calcitriol 0.25 Mcg Capsule) 0.25 mcg PO Q48H [facility] Last Admin: 05/19/25 09:40 Dose: 0.25 mcg Calcium Carbonate (Calcium Carbonate 750 Mg Tab.Chew) 750 mg PO Q4H PRN PRN Reason: Heartburn Carvedilol (Carvedilol 6.25 Mg Tablet) 6.25 mg PO BID [facility]; Protocol Ceftriaxone Sodium (Ceftriaxone Sodium 1 Gm Vial) 1 gm IVPUSH BEDTIME [facility] Last Admin: 05/19/25 04:01 Dose: 1 gm Magnesium Hydroxide (Milk Of Magnesia 30 Ml Oral.Susp) 30 ml PO DAILY PRN PRN Reason: Constipation Melatonin (Melatonin 3 Mg Tablet) 6 mg PO BEDTIME PRN PRN Reason: Insomnia Metolazone (Metolazone 2.5 Mg Tablet) 2.5 mg PO MOWEFR [facility] Omeprazole (Omeprazole 40 Mg Capsule.Dr) 40 mg PO BID@0630,1630 [facility] Last Admin: 05/19/25 07:15 Dose: 40 mg Pantoprazole Sodium (Pantoprazole Sodium 40 Mg/10 Ml Vial) 40 mg IVPUSH DAILY@0630 [facility] Last Admin: 05/19/25 07:15 Dose: 40 mg Sodium Chloride (0.9 % Sodium Chloride Flush 3 Ml Syringe) 3 ml IVFLUSH QSHIFT [facility] Last Admin: 05/19/25 07:22 Dose: Not Given Home Medications ?Medication ?Instructions ?Recorded ?Confirmed ?Last Taken ?Type blood-glucose meter #1 ea 05/14/20 01/14/24 Unknown History lancets #100 ea 05/14/20 01/14/24 Unknown History atorvastatin 40 mg tablet 40 mg PO DAILY 12/19/22 05/18/25 04/06/25 History apixaban 2.5 mg tablet (Eliquis) 2.5 mg PO BID 12/05/24 05/18/25 04/06/25 History ferrous sulfate 325 mg (65 mg 325 mg PO BID 03/30/25 05/18/25 04/06/25 History iron) tablet calcitriol 0.25 mcg capsule 0.25 mcg PO Q48H 05/04/25 05/18/25 Unknown History metolazone 2.5 mg tablet 2.5 mg PO MOWEFR 05/04/25 05/18/25 Unknown History Physical Exam Vital Signs: Vital Signs: Last Vital Signs Temp 97.6 F 05/19/25 08:15 Pulse 73 05/19/25 08:15 Resp 16 05/19/25 08:15 BP 132/57 L 05/19/25 08:15 Pulse Ox 94 05/19/25 08:15 O2 Del Method Room Air 05/19/25 08:15 BMI result Body Mass Index 29.1 Const: General: alert, awake, in distress mild and respiratory and combative Nutritional Appearance: overweight Orientation/consciousness: patient oriented x3 HEENT: Head: Yes normocephalic and Yes atraumatic Neck: Neck: Yes trachea midline, Yes supple and Yes JVD Resp: Effort & Inspection: decreased respiratory effort Auscultation: diminished lung sounds Cardio: Jugular venous distension: JVD Rhythm: abnormal rhythm irregularly irregular Heart sounds: S1 normal heart sound present, S2 normal heart sound present, no click and no gallops GI: Auscultation: normal bowel sounds Skin: General skin exam: no rashes or lesions noted and ecchymosis Neuro: General: patient oriented x3 and no focal motor deficits Extrem: General: No clubbing, No cyanosis and Yes edema Objective Labs and Meds 05/18/25 15:04 05/19/25 04:14 Lab results: Laboratory Results - last 24 hr 05/18/25 05/18/25 05/18/25 14:59 15:04 15:30 WBC 4.6 L RBC 2.78 L Hgb 6.9 L* Hct 22.6 L MCV 81.3 MCH 24.8 L MCHC 30.5 L RDW 17.7 H Plt Count 149 L MPV 9.1 L Immature Gran % (Auto) 0.4 Neut % (Auto) 73.8 H Lymph % (Auto) 13.9 L Slope % (Auto) 10.2 Eos % (Auto) 1.5 Baso % (Auto) 0.2 Lymph # (Auto) 0.6 L Slope # (Auto) 0.5 Eos # (Auto) 0.1 Baso # (Auto) 0.0 Abs Immat Gran (auto) 0.02 Absolute Neuts (auto) 3.4 Absolute Nucleated RBC 0.040 H Nucleated RBC % (auto) 0.9 H Sodium 134 L Potassium 4.8 Chloride 102 Carbon Dioxide 21 L Anion Gap 16 BUN 136 H Creatinine 3.19 H Estim Creat Clear Calc 23.1 Estimated GFR 19 Random Glucose 82 Calcium 8.5 Magnesium 2.1 Total Bilirubin 0.7 AST 51 H ALT 24 Alkaline Phosphatase 138 H Troponin I High Sens 35.8 H NT-Pro-B Natriuret Pep 33697.1 H Total Protein 7.4 Albumin 3.3 L Stool Occult Blood POSITIVE Blood Type B Positive Antibody Screen NEGATIVE Crossmatch See Detail 05/18/25 05/19/25 19:16 04:14 WBC RBC Hgb Hct MCV MCH MCHC RDW Plt Count MPV Immature Gran % (Auto) Neut % (Auto) Lymph % (Auto) Slope % (Auto) Eos % (Auto) Baso % (Auto) Lymph # (Auto) Slope # (Auto) Eos # (Auto) Baso # (Auto) Abs Immat Gran (auto) Absolute Neuts (auto) Absolute Nucleated RBC Nucleated RBC % (auto) Sodium 137 Potassium 5.2 H Chloride 105 Carbon Dioxide 20 L Anion Gap 17 BUN 136 H Creatinine 3.29 H Estim Creat Clear Calc 22.4 Estimated GFR 19 Random Glucose 135 H Calcium 8.6 Magnesium 2.0 Total Bilirubin 1.0 AST 34 ALT 22 Alkaline Phosphatase 129 H Troponin I High Sens 35.1 H NT-Pro-B Natriuret Pep Total Protein 7.0 Albumin 3.2 L Stool Occult Blood Blood Type Antibody Screen Crossmatch Imaging Radiologist's impression: Impressions Chest X-Ray 05/18/25 15:05 IMPRESSION: Small layering right effusion with associated passive atelectasis in the right base. Cardiac enlargement. No significant interval change from 05/05/2025. Electronically signed by: Jack Shah MD 05/18/2025 03:19 PM EDT Assessment and Plan (1) Acute CHF: Status: Acute Acute congestive heart failure in this elderly gentleman might be related to anemia as well as noncompliance with medication with multiple comorbidities including advanced renal dysfunction, chronic atrial fibrillation, severe pulmonary hypertension as well as severe anemia. I would continue to transfuse to maintain hematocrit over 30 and evaluate for cause for GI source of bleeding. Continue IV diuresis and may require IV drip given in the past that he would require that addition to metolazone therapy. Strict intake and output chart needs to be pursued. Continue carvedilol therapy. Consider adding hydralazine Isordil combination for vasodilators therapy in his gentleman with LV systolic dysfunction. Overall prognosis is guarded given his noncompliance with treatment and wanting to sign out against medical advice. I did advise him against it but he is very intent on wanting to go home. (2) Chronic atrial fibrillation: Status: Acute Chronic atrial fibrillation with recurrent anemia with rate controlled on carvedilol therapy. Currently coming with worsening anemia with positive guaiac stools. Will need GI evaluation prior to discharge if possible for source of bleeding once his congestive heart failure syndrome has improved. I would hold his Eliquis. In the future depending on the findings on GI workup may consider Watchman device if he is agreeable for follow-up. Will continue to follow with him if he remains in the hospital. Thank you for allowing me to partake in his care Procedures Date of Service Date of Service: 05/19/25
--- NOTE | 2025-05-19 10:18 | PM.GICN ---
History of Present Illness Data of Consult Service Date: 05/19/25 Primary Care Provider: Blanca Anderson MD HPI Reason for consult: bloody stools 74-year-old male with a past medical history of HTN, HLD, dm, CAD, CKD, CHF-35-40%, AFib on Eliquis, anemia, hyperparathyroidism, osteoarthritis, memory impairment;hx C diff infection; who I am seeing for bloody stools He initially presented with c/o bilateral leg swelling and pain but also admitted to rectal bleeding for few days. He had noted mild epigastric pain prior to admission without any relieiving or exacerbating factors, but this has gone now and he now has c/o lower back discomfort posisbly from the mattress. He denies urine or stool sx. He denies melena, nose bleeds. Denies any chest pain or palpitations. He had EGD 01/04 with duodenal ulcer noted, he also has a bile stent from ERCP earlier this year for bile leak which needs removed. No varices were noted on endoscopy. LABS: hemoglobin of 6.9. Stool guaiac was positive. Patient given 1 unit of PRBC with good increment Review of Systems Review of Systems: Constitutional : No Weight loss, No Fever, No Chills ENT/Mouth : No sore throat, No Rhinorrhea Eyes: No Swelling, No Redness Cardiovascular : No Chest Pain, No SOB, No Edema Respiratory : No Cough, No Sputum, No Wheezing Gastrointestinal : see HPI Genitourinary : NO Dysuria, No Urinary Frequency, No Hematuria, No Urgency Musculoskeletal : + joint pain, No Myalgias, No Joint Swelling Skin : erythema and serous drainage from areas on legs Neuro : No Weakness, No Numbness, No Dizziness, No Headache Psych : No Anxiety/Panic, No Depression Heme/Lymph: No Bruising, No Lymphadenopathy Endocrine : No Polyuria, No Polydipsia All other systems reviewed and are negative. [facility] Past Medical History Medical History Chronic atrial fibrillation Hypoxia Acute on chronic heart failure with preserved ejection fraction (HFpEF) Anemia in chronic kidney disease (CKD) Hypertension Uncontrolled hypertension Congestive heart failure CKD (chronic kidney disease) CHF (congestive heart failure) CKD (chronic kidney disease) stage 4, GFR 15-29 ml/min Obesity (BMI 30.0-34.9) Cardiomyopathy Stroke CKD (chronic kidney disease) Former smoker Depression Diabetes High cholesterol Family History Family History Father No problems noted. Mother Diabetes Hypertension Cancer Son No problems noted. Son No problems noted. Son No problems noted. Daughter No problems noted. Daughter No problems noted. Surgical History Surgical History History of aneurysm History of shoulder surgery Social History Social History Household Members: Family Household Members Other:: Housing: Apartment Are you a primary personal care aide to a significant other at home: No Do you presently have visiting nurse or other home services: Yes Alcohol intake: never Comment: Sitter at bedside Patient Tobacco Use Status: Former Tobacco user Substance Use Type: Marijuana Advance Directives Date on File: 12/17/24 service: No Current occupational status: disabled Meds Allergies Allergy/AdvReac Type Severity Reaction Status Date / Time No Known Allergies (No Known Allergy Verified 05/18/25 14:33 Allergies*) Active Medications: Current Medications Acetaminophen (Acetaminophen 325 Mg Tablet) 650 mg PO Q6H PRN PRN Reason: Pain, Mild 1-3,fever,headache Atorvastatin Calcium (Atorvastatin Calcium 40 Mg Tablet) 40 mg PO DAILY [facility] Last Admin: 05/19/25 09:25 Dose: 40 mg Bumetanide (Bumetanide 1 Mg/4 Ml Vial) 1 mg IVPUSH DAILY [facility]; Protocol Last Admin: 05/19/25 09:25 Dose: 1 mg Calcitriol (Calcitriol 0.25 Mcg Capsule) 0.25 mcg PO Q48H [facility] Last Admin: 05/19/25 09:40 Dose: 0.25 mcg Calcium Carbonate (Calcium Carbonate 750 Mg Tab.Chew) 750 mg PO Q4H PRN PRN Reason: Heartburn Carvedilol (Carvedilol 6.25 Mg Tablet) 6.25 mg PO BID [facility]; Protocol Ceftriaxone Sodium (Ceftriaxone Sodium 1 Gm Vial) 1 gm IVPUSH BEDTIME [facility] Last Admin: 05/19/25 04:01 Dose: 1 gm Magnesium Hydroxide (Milk Of Magnesia 30 Ml Oral.Susp) 30 ml PO DAILY PRN PRN Reason: Constipation Melatonin (Melatonin 3 Mg Tablet) 6 mg PO BEDTIME PRN PRN Reason: Insomnia Metolazone (Metolazone 2.5 Mg Tablet) 2.5 mg PO MOWE [facility] Omeprazole (Omeprazole 40 Mg Capsule.) 40 mg PO BID@0630,1630 [facility] Last Admin: 05/19/25 07:15 Dose: 40 mg Pantoprazole Sodium (Pantoprazole Sodium 40 Mg/10 Ml Vial) 40 mg IVPUSH DAILY@0630 [facility] Last Admin: 05/19/25 07:15 Dose: 40 mg Sodium Chloride (0.9 % Sodium Chloride Flush 3 Ml Syringe) 3 ml IVFLUSH QSHIFT [facility] Last Admin: 05/19/25 07:22 Dose: Not Given Home Medications ?Medication ?Instructions ?Recorded ?Confirmed ?Last Taken ?Type blood-glucose meter #1 ea 05/14/20 01/14/24 Unknown History lancets #100 ea 05/14/20 01/14/24 Unknown History atorvastatin 40 mg tablet 40 mg PO DAILY 12/19/22 05/18/25 04/06/25 History apixaban 2.5 mg tablet (Eliquis) 2.5 mg PO BID 12/05/24 05/18/25 04/06/25 History ferrous sulfate 325 mg (65 mg 325 mg PO BID 03/30/25 05/18/25 04/06/25 History iron) tablet calcitriol 0.25 mcg capsule 0.25 mcg PO Q48H 05/04/25 05/18/25 Unknown History metolazone 2.5 mg tablet 2.5 mg PO MOWEFR 05/04/25 05/18/25 Unknown History Physical Exam Exam: Exam: EXAM: GENERAL: The patient is well developed and nontoxic. VITAL SIGNS:see workflow HEENT: Nonicteric sclerae, PERRLA, EOMI. Oropharynx clear. Moist mucous membranes. Conjunctivae appear well perfused. No thyroid mass. CHEST: Chest wall is nontender. HEART: Regular rate and rhythm without murmurs. LUNGS: Clear to auscultation bilaterally. ABDOMEN: Soft, positive bowel sounds, nontender, no organomegaly.no flank tenderness SKIN: venous stasis, and serous d/c legs NEUROLOGIC: Cranial nerves II-XII intact without motor/sensory deficit. Psych: normal affect Vital Signs: Vital Signs: Last Vital Signs Temp 98.1 F 05/19/25 10:16 Pulse 76 05/19/25 10:16 Resp 23 H 05/19/25 10:16 BP 153/59 H 05/19/25 10:16 Pulse Ox 95 05/19/25 10:16 O2 Del Method Room Air 05/19/25 10:16 BMI result Body Mass Index 29.1 Results Labs 05/19/25 12:56 05/19/25 04:14 Labs: Short CBC 05/18/25 Range/Units 15:04 WBC 4.6 L (4.8-10.8) X10*3/uL Hgb 6.9 L* (14.0-18.0) g/dl Hct 22.6 L (42.0-52.0) % Plt Count 149 L (160-400) X10*3/uL BMP 05/18/25 05/19/25 15:04 04:14 Sodium 134 L 137 Potassium 4.8 5.2 H Chloride 102 105 Carbon Dioxide 21 L 20 L BUN 136 H 136 H Creatinine 3.19 H 3.29 H Calcium 8.5 8.6 Liver Function 05/18/25 05/19/25 Range/Units 15:04 04:14 Total Bilirubin 0.7 1.0 (0.0-1.0) mg/dL AST 51 H 34 (5-37) U/L ALT 24 22 (0-40) U/L Alkaline Phosphatase 138 H 129 H (39-117) U/L Albumin 3.3 L 3.2 L (3.5-5.0) g/dL Assessment and Plan (1) GI (gastrointestinal bleed): Qualifiers: GI bleed type/associated pathology: unspecified gastrointestinal hemorrhage type Qualified Code(s): K92.2 - Gastrointestinal hemorrhage, unspecified Status: Acute Plan 1/ Acute on chronci anemia, hx of PUD< could be still present or worsened, ddx: esophagitis, gastritis, dieulafoy, AVM, lower GI lesion 2/ biliary stent in situ PLAN: 1/ EGD tomorrow, possible sigmoidoscopy if neg 2/ transfuse and resus for HGB <7 g/dl, target 8-9 g/dl 3/ will remove biliary stent at same time as EGD Procedures Date of Service Date of Service: 05/19/25
--- NOTE | 2025-05-19 11:39 | HO.WOUND ---
Wound Consult: Initial 74yr old male admitted to [facility] [place] [facility] [place] - See progress notes and H&P for detailed history. Wound consult placed for bilateral legs. Patient well known to this junior copywriter from prior admissions, last admission 05/04/25. Patient was attempted to be seen while in the ED however was yelling out in refusal and yelling his desires to leave and go home. He was educated on the reason for his continued stay and my role in his care - he refused assessment and was increasing with agitation which is not the patients baseline behavior based on prior admissions. The patient did not allow for full assessment nor dressing application. I attempted to educate him on the benefits of keeping the wounds cleaned and covered - again with increasing agitation. Legs left GELA at the time of my consult - topical recommendations made below for topical care to be put into place when patient is more agreeable. Right Leg Left Leg Etiology: bilateral legs venous stasis ulcers Wound Bed:scattered open areas with moist pink wound beds - some areas with dry stable scabs noted Drainage / Odor: serous, scant, no odor Edges: ? attached and irregular Georgie wound: ? No Induration, Fluctuance or Warmth noted Pain: pain with wound assessment/cleansing Goals of Treatment: ? moist wound healing, drainage control with durafiber ag Recommendations: 1. Turn and Reposition every 2 hours and as needed for patient comfort. Use pillows or wedges to support off loading positions. 2. Off Load all bony prominences with use of pillows and heel boots if needed. Apply Preventative foams where needed. 3. Monitor for incontinence and moisture control, use barrier creams when needed for prevention and treatment. 4. Provide adequate and supplemental nutrition. 5. Order low air loss mattress. 6. When applicable maintain blood glucose levels per Providers order. Bilateral legs - cleanse with saline, apply durafiber ag, cover with ABD pads, hold in place with rolled gauze or stretch netting, change every other day and PRN Buttock - Off Load Pressure with Q2 hr turns and use of pillows - Cleanse with PH balance spray or wipes, pat dry. ?Apply thin layer of barrier cream to affected area.? Apply twice daily and Reapply thin layer PRN after each episode of incontinence. Re-consult wound care Nurse for wound deterioration or wound changes.
[2025-05-19 13:05] LABS: Hematocrit 24.8 % (42.0-52.0); Hemoglobin 7.8 g/dl (14.0-18.0); Mean Corpuscular HGB Conc 31.5 g/dl (31.0-36.0); Mean Corpuscular Hemoglobin 25.7 pg (27.0-33.0); Mean Corpuscular Volume 81.8 fL (80.0-98.0); NRBC Abs Auto 0.030 X10*3/uL (0.0-0.012); NRBC Pct Auto 0.4 /100WBC (0.0-0.2); Platelet Count 129 X10*3/uL (160-400); Red Blood Count 3.03 X10*6/uL (4.60-5.80); White Blood Count 6.7 X10*3/uL (4.8-10.8)
--- NOTE | 2025-05-19 13:05 | PM.CNNEP ---
History of Present Illness Reason for Consult Consult date: 05/19/25 Reason for consult: CKD Chief Complaint Chief complaint: GI Bleed History of Present Illness Narrative: 74-year-old male with a past medical history of HTN, HLD, dm, CAD, CKD, CHF-35-40%, AFib on Eliquis, anemia, hyperparathyroidism, osteoarthritis, memory impairment;hx C diff infection; presented to the hospital today with a chief complaint of bilateral leg swelling and pain. Review of Systems Constitutional: Denies fever(s) and Denies weight loss Cardiovascular: Denies chest pain Respiratory: Denies cough and Denies hemoptysis Gastrointestinal: Denies abdominal pain, Denies diarrhea and Denies nausea Musculoskeletal: Denies back pain Denies focal weakness PMF Past Medical History Medical History (Updated 05/19/25 @ 10:13 by Osmani Chawla MD) Chronic atrial fibrillation Hypoxia Acute on chronic heart failure with preserved ejection fraction (HFpEF) Anemia in chronic kidney disease (CKD) Hypertension Uncontrolled hypertension Congestive heart failure CKD (chronic kidney disease) CHF (congestive heart failure) CKD (chronic kidney disease) stage 4, GFR 15-29 ml/min Obesity (BMI 30.0-34.9) Cardiomyopathy Stroke CKD (chronic kidney disease) Former smoker Depression Diabetes High cholesterol Family History Family History Father No problems noted. Mother Diabetes Hypertension Cancer Son No problems noted. Son No problems noted. Son No problems noted. Daughter No problems noted. Daughter No problems noted. Surgical History Surgical History (Updated 05/15/25 @ 00:02 by Susanna River) History of aneurysm History of shoulder surgery Social History Social History Household Members: Family Household Members Other:: Housing: Apartment Are you a primary client care specialist to a significant other at home: No Do you presently have visiting nurse or other home services: Yes Alcohol intake: never Comment: Sitter at bedside Patient Tobacco Use Status: Former Tobacco user Smoked in Last 30 Days: No Use of substances other than those prescribed or required for medical reasons: No Substance Use Type: Marijuana Advance Directives: Yes Advance Directives on File: Yes Advance Directives Date on File: 12/17/24 Do you have a plan to hurt others: No Plan Recently lost weight without trying: No Nutrition Risks: No Nutritional Risk Poor oral hygiene: No service: No Current occupational status: disabled Meds Allergies Allergy/AdvReac Type Severity Reaction Status Date / Time No Known Allergies (No Known Allergy Verified 05/18/25 14:33 Allergies*) Active Medications: Current Medications Acetaminophen (Acetaminophen 325 Mg Tablet) 650 mg PO Q6H PRN PRN Reason: Pain, Mild 1-3,fever,headache Atorvastatin Calcium (Atorvastatin Calcium 40 Mg Tablet) 40 mg PO DAILY [facility] Last Admin: 05/19/25 09:25 Dose: 40 mg Bumetanide (Bumetanide 1 Mg/4 Ml Vial) 1 mg IVPUSH DAILY [facility]; Protocol Last Admin: 05/19/25 09:25 Dose: 1 mg Calcitriol (Calcitriol 0.25 Mcg Capsule) 0.25 mcg PO Q48H [facility] Last Admin: 05/19/25 09:40 Dose: 0.25 mcg Calcium Carbonate (Calcium Carbonate 750 Mg Tab.Chew) 750 mg PO Q4H PRN PRN Reason: Heartburn Carvedilol (Carvedilol 6.25 Mg Tablet) 6.25 mg PO BID [facility]; Protocol Ceftriaxone Sodium (Ceftriaxone Sodium 1 Gm Vial) 1 gm IVPUSH BEDTIME [facility] Last Admin: 05/19/25 04:01 Dose: 1 gm Magnesium Hydroxide (Milk Of Magnesia 30 Ml Oral.Susp) 30 ml PO DAILY PRN PRN Reason: Constipation Melatonin (Melatonin 3 Mg Tablet) 6 mg PO BEDTIME PRN PRN Reason: Insomnia Metolazone (Metolazone 2.5 Mg Tablet) 2.5 mg PO MOWECAPE [facility] Morphine Sulfate (Morphine Sulfate 2 Mg/Ml Cartridge) 2 mg IVPUSH Q3H PRN; Protocol PRN Reason: Pain, Severe (Pain Scale 7-10) Last Admin: 05/19/25 12:44 Dose: 2 mg Omeprazole (Omeprazole 40 Mg Capsule.Dr) 40 mg PO BID@0630,1630 [facility] Last Admin: 05/19/25 07:15 Dose: 40 mg Pantoprazole Sodium (Pantoprazole Sodium 40 Mg/10 Ml Vial) 40 mg IVPUSH DAILY@0630 [facility] Last Admin: 05/19/25 07:15 Dose: 40 mg Sodium Chloride (0.9 % Sodium Chloride Flush 3 Ml Syringe) 3 ml IVFLUSH QSHIFT [facility] Last Admin: 05/19/25 07:22 Dose: Not Given Home Medications ?Medication ?Instructions ?Recorded ?Confirmed ?Last Taken ?Type blood-glucose meter #1 ea 05/14/20 01/14/24 Unknown History lancets #100 ea 05/14/20 01/14/24 Unknown History atorvastatin 40 mg tablet 40 mg PO DAILY 12/19/22 05/18/25 04/06/25 History apixaban 2.5 mg tablet (Eliquis) 2.5 mg PO BID 12/05/24 05/18/25 04/06/25 History ferrous sulfate 325 mg (65 mg 325 mg PO BID 03/30/25 05/18/25 04/06/25 History iron) tablet calcitriol 0.25 mcg capsule 0.25 mcg PO Q48H 05/04/25 05/18/25 Unknown History metolazone 2.5 mg tablet 2.5 mg PO MOWEFR 05/04/25 05/18/25 Unknown History Physical Exam Vital Signs: Last Vital Signs Temp 98.1 F 05/19/25 10:16 Pulse 73 05/19/25 12:45 Resp 18 05/19/25 12:45 BP 138/60 05/19/25 12:45 Pulse Ox 97 05/19/25 12:45 O2 Del Method Room Air 05/19/25 12:45 BMI result Body Mass Index 29.1 Comfortable Neck supple no JVD. Lungs entry equal no rales. Heart S1-S2 heard no gallop or rub. Abdomen soft nontender. Neuro alert awake oriented. No asterixis. Extremities 1 + edema. Bilateral leg ulcers Results Lab Results 05/19/25 12:56 05/19/25 04:14 Lab results: Chemistry 05/18/25 05/19/25 15:04 04:14 Sodium 134 L 137 Potassium 4.8 5.2 H Carbon Dioxide 21 L 20 L BUN 136 H 136 H Creatinine 3.19 H 3.29 H Calcium 8.5 8.6 Hematology 05/18/25 05/19/25 15:04 12:56 WBC 4.6 L 6.7 Hgb 6.9 L* 7.8 L Plt Count 149 L 129 L Assessment and Plan (1) CKD stage 3b, GFR 30-44 ml/min: Status: Acute (2) Acute on chronic kidney failure: Status: Acute Plan Workup initiated Check urine protein creatinine ratio Check C ANCA and p-ANCA ; MPO/ PR3 Continue diuresis Low-sodium diet Monitor urine output Shruthi juarez Procedures Date of Service Date of Service: 05/19/25
[2025-05-19 14:26] LABS: Total Protein Urine Random 10 mg/dL (<12)
--- NOTE | 2025-05-19 14:28 | MHC.CM.PN ---
CM attempted assessment. at this time, pt. agitated, yelling. CM to follow up tomorrow.
--- NOTE | 2025-05-19 15:56 | HO.PM.IMPN ---
Subjective Subjective Date of Service: 05/19/25 Interval History: transfused without incident c/o severe leg pain no further hematochezia Review of Systems Review of Systems: Yes all other systems are reviewed and are negative Physical Exam Vital Signs: Vital Signs: Last Vital Signs Temp 97.5 F 05/19/25 15:34 Pulse 64 05/19/25 15:34 Resp 20 05/19/25 15:34 BP 163/73 H 05/19/25 15:34 Pulse Ox 93 05/19/25 15:34 O2 Del Method Room Air 05/19/25 15:34 BMI result Body Mass Index 25.3 Gen: in no acute distress but in pain HEENT: sclera anicteric, moist mucus membranes Neck: supple Lungs: diminished Heart: irregular, no murmurs Abd: soft, non-tender, non-distended Ext: 2+ bilateral leg edema Skin: warm/well-perfused, bilateral venous stasis ulcers Neuro: alert and oriented x3, no focal findings Psych: irritated, anxious Objective Data Active Medications Acetaminophen (Acetaminophen 325 Mg Tablet) 650 mg PO Q6H PRN PRN Reason: Pain, Mild 1-3,fever,headache Atorvastatin Calcium (Atorvastatin Calcium 40 Mg Tablet) 40 mg PO DAILY [facility] Last Admin: 05/19/25 09:25 Dose: 40 mg Documented By: BALTA Bumetanide (Bumetanide 1 Mg/4 Ml Vial) 1 mg IVPUSH DAILY [facility]; Protocol Last Admin: 05/19/25 09:25 Dose: 1 mg Documented By: BALTA Calcitriol (Calcitriol 0.25 Mcg Capsule) 0.25 mcg PO Q48H [facility] Last Admin: 05/19/25 09:40 Dose: 0.25 mcg Documented By: BALTA Calcium Carbonate (Calcium Carbonate 750 Mg Tab.Chew) 750 mg PO Q4H PRN PRN Reason: Heartburn Carvedilol (Carvedilol 6.25 Mg Tablet) 6.25 mg PO BID [facility]; Protocol Ceftriaxone Sodium (Ceftriaxone Sodium 1 Gm Vial) 1 gm IVPUSH BEDTIME [facility] Last Admin: 05/19/25 04:01 Dose: 1 gm Documented By: BEN Magnesium Hydroxide (Milk Of Magnesia 30 Ml Oral.Susp) 30 ml PO DAILY PRN PRN Reason: Constipation Melatonin (Melatonin 3 Mg Tablet) 6 mg PO BEDTIME PRN PRN Reason: Insomnia Metolazone (Metolazone 2.5 Mg Tablet) 2.5 mg PO MOWEFR [facility] Morphine Sulfate (Morphine Sulfate 2 Mg/Ml Cartridge) 2 mg IVPUSH Q3H PRN; Protocol PRN Reason: Pain, Severe (Pain Scale 7-10) Last Admin: 05/19/25 12:44 Dose: 2 mg Documented By: MIO Omeprazole (Omeprazole 40 Mg Capsule.Dr) 40 mg PO BID@0630,1630 [facility] Last Admin: 05/19/25 07:15 Dose: 40 mg Documented By: BALTA Oxycodone HCl (Oxycodone Hcl Immed Release 5 Mg Tablet) 5 mg PO Q4H PRN PRN Reason: Pain, Moderate(Pain Scale 4-6) Pantoprazole Sodium (Pantoprazole Sodium 40 Mg/10 Ml Vial) 40 mg IVPUSH DAILY@0630 [facility] Last Admin: 05/19/25 07:15 Dose: 40 mg Documented By: BALTA Sodium Chloride (0.9 % Sodium Chloride Flush 3 Ml Syringe) 3 ml IVFLUSH QSHIFT [facility] Last Admin: 05/19/25 07:22 Dose: Not Given Documented By: BALTA Non-Admin Reason: See Note Labs 05/19/25 12:56 05/19/25 04:14 Labs: Laboratory Results - last 24 hr 05/18/25 05/18/25 05/19/25 15:30 19:16 04:14 MCV MCH MCHC RDW Plt Count MPV Absolute Nucleated RBC Nucleated RBC % (auto) Anion Gap 17 Estim Creat Clear Calc 22.4 Estimated GFR 19 Random Glucose 135 H Calcium 8.6 Magnesium 2.0 Total Bilirubin 1.0 AST 34 ALT 22 Alkaline Phosphatase 129 H Troponin I High Sens 35.1 H Total Protein 7.0 Albumin 3.2 L U Random Total Protein Urine Creatinine Blood Type B Positive Antibody Screen NEGATIVE Crossmatch See Detail 05/19/25 05/19/25 12:56 13:54 MCV 81.8 MCH 25.7 L MCHC 31.5 RDW 17.6 H Plt Count 129 L MPV 9.2 L Absolute Nucleated RBC 0.030 H Nucleated RBC % (auto) 0.4 H Anion Gap Estim Creat Clear Calc Estimated GFR Random Glucose Calcium Magnesium Total Bilirubin AST ALT Alkaline Phosphatase Troponin I High Sens Total Protein Albumin U Random Total Protein 10 Urine Creatinine 20.92 Blood Type Antibody Screen Crossmatch Assessment and Plan (1) Acute CHF: Status: Acute Plan d2, 74yo M with HFrEF, AF on apixaban, DM2, HTN, HLD, CAD, hyperPTH presenting with bilateral leg swelling and pain, blood in the stool admitted for acute/chronic HFrEF, leg wound infection, GI bleed acute/chronic anemia due to GI bleed - IV PPI, GI consulted, transfused 1u pRBCs with appropriate response, hold apixaban, NPO after midnight for EGD tomorrow acute/chronic HFpEF - continue IV bumetanide, PO metolazone, monitor I/O, BMP, BNP, Mg, weights - continue carvedilol - start hydralazine + Isordil to replace amlodipine bilateral venous stasis ulcers with concern for infection - change ceftriaxone to linezolid + renally-dosed piperacillin-tazobactam 05/19- - Wound Care consulted: Bilateral legs - cleanse with saline, apply durafiber ag, cover with ABD pads, hold in place with rolled gauze or stretch netting, change every other day and PRN Buttock - Off Load Pressure with Q2 hr turns and use of pillows - Cleanse with PH balance spray or wipes, pat dry. ?Apply thin layer of barrier cream to affected area.? Apply twice daily and Reapply thin layer PRN after each episode of incontinence.' CKD3b - Nephrology consulted, following - continue calcitriol chronic AF - continue carvdilol - hold apixaban CAD/HLD: statin VTE ppx: SCDs, hold apixaban dispo: TBD In my clinical judgment, the patient requires continued inpatient hospitalization for the following reasons: GI bleed, IV diuresis, IV ABX Total time managing care of this patient today: 55 minutes. Quality Stroke Does the patient have a stroke diagnosis?: No VTE Prior VTE?: No VTE Risk Level:: Medical - moderate - high VTE Device Contraindication: Treatment Not Indicated VTE Drug Contraindication: N/A - Med Ordered
[2025-05-19] MEDS: 0.9 % Sodium Chloride Flush 3 ML SYRINGE IVFLUSH ×2 (18:07→20:06)
[2025-05-19] MEDS: Linezolid/D5W 600 MG/300 ML PIGGYBACK 300 MG IV (18:22)
[2025-05-20] VITALS (16 sets, daily range): BP systolic 97–129; BP diastolic 39–84; PULSE 41–73; RESP 12–18; TEMP 35.4–36.6; O2SAT 92–96
--- NOTE | 2025-05-20 05:16 | PC.NURSE ---
Assumed care of pt 05/19/2025. 23:45 dressings applied to BLE ulcers; durafiber ag, ABD pads and gauze wrap. 04:00 pt complained of severe itchiness started pulling off his dressings and asked them removed immediately. Pt request honored. Education provided, risks of having Ulcers GELA explained. Provider notified.
[2025-05-20] MEDS: Linezolid/D5W 600 MG/300 ML PIGGYBACK 300 MG IV ×2 (06:24→18:29)
[2025-05-20 06:57] LABS: Hematocrit 24.6 % (42.0-52.0); Hemoglobin 7.6 g/dl (14.0-18.0); Mean Corpuscular HGB Conc 30.9 g/dl (31.0-36.0); Mean Corpuscular Hemoglobin 25.4 pg (27.0-33.0); Mean Corpuscular Volume 82.3 fL (80.0-98.0); NRBC Abs Auto 0.000 X10*3/uL (0.0-0.012); NRBC Pct Auto 0.0 /100WBC (0.0-0.2); Platelet Count 105 X10*3/uL (160-400); Red Blood Count 2.99 X10*6/uL (4.60-5.80); White Blood Count 4.2 X10*3/uL (4.8-10.8)
[2025-05-20 07:10] LABS: Anion Gap 17 (12-20); Calcium 8.8 mg/dL (8.4-10.2); Carbon Dioxide 20 mmol/L (22-29); Chloride 104 mmol/L (96-108); Creatinine Clr Calc Pharmacy 20.5; Estimated Glomerular Filt Rate 19; Potassium 4.9 mmol/L (3.3-5.1); Sodium 136 mmol/L (135-145)
[2025-05-20 07:16] LABS: NT Pro B Type Natriuretic Pept 11947.8 pg/mL (<300)
[2025-05-20 07:20] LABS: Blood Urea Nitrogen 128 mg/dL (9-16)
--- NOTE | 2025-05-20 08:05 | HO.ANESPROP2 ---
Documented by User: Georgina Brar NP 05/20/25 11:14 HPI - Anesthesia Eval Consult details Narrative: 74 yr old male for upper endoscopy, sigmoidoscopy flexible Anemia: tranfused 1 unit with 05/20/25 H/H 7.6/24.6, platelets 105; 2nd unit blood being given 05/20/25. Acute/chronic HFpEF: EF is 40-45%, now with severe pulmonary HTN; +LE edema, chest xray with right pleural effusion; sats 92% on ra Afib: on eliquis; cardiology to consider Watchman in future. Cards consult 05/19/25: proceed with GI work up once congestive heart failure syndrome has improved s/p upper endo with TIVA 12/2024 [facility] Active Problems Active Problems: All Active Problems Chronic atrial fibrillation (Acute) Acute CHF (Acute) Anasarca (Acute) CHF (congestive heart failure) (Acute) Elevated troponin (Acute) Anemia (Acute) GI (gastrointestinal bleed) (Acute) Pleural effusion (Acute) Cardiorenal syndrome (Acute) Encounter for assessment of healthcare decision-making capacity (Acute) Parapneumonic effusion (Acute) Pneumonia (Acute) Acute kidney injury superimposed on chronic kidney disease (Acute) Congestive heart failure (Acute) CHF (congestive heart failure) (Acute) Acute on chronic kidney failure (Acute) Anasarca (Acute) Congestive heart failure (Acute) Encounter for assessment of healthcare decision-making capacity (Acute) Pleural effusion (Acute) Hypoxia (Acute) Acute respiratory failure with hypoxia (Acute) Hypertension (Acute) Anemia in chronic kidney disease (CKD) (Acute) CKD stage 3b, GFR 30-44 ml/min (Acute) Clostridium difficile colitis (Acute) Status post endoscopic retrograde cholangiopancreatography (Acute) Calculous cholecystitis (Acute) Secondary hyperparathyroidism (of renal origin) (Acute) Hydronephrosis (Acute) Osteoarthritis of left knee (Acute) Preop cardiovascular exam (Acute) Iron deficiency (Acute) Hospital discharge follow-up (Acute) Former smoker (Acute) Depression (Acute) High cholesterol (Acute) Past Medical History Medical History Chronic atrial fibrillation Hypoxia Acute on chronic heart failure with preserved ejection fraction (HFpEF) Anemia in chronic kidney disease (CKD) Hypertension Uncontrolled hypertension Congestive heart failure CKD (chronic kidney disease) CHF (congestive heart failure) CKD (chronic kidney disease) stage 4, GFR 15-29 ml/min Obesity (BMI 30.0-34.9) Cardiomyopathy Stroke CKD (chronic kidney disease) Former smoker Depression Diabetes High cholesterol Family History Family History Father No problems noted. Mother Diabetes Hypertension Cancer Son No problems noted. Son No problems noted. Son No problems noted. Daughter No problems noted. Daughter No problems noted. Family history of problems with anesthesia: No Surgical History Surgical History History of aneurysm History of shoulder surgery History of Problems with Anesthesia: No Social History Social History Household Members: Family Household Members Other:: Housing: Apartment Are you a primary lawn care specialist to a significant other at home: No Do you presently have visiting nurse or other home services: Yes Alcohol intake: never Comment: Sitter at bedside Patient Tobacco Use Status: Former Tobacco user Substance Use Type: Marijuana Advance Directives Date on File: 12/17/24 service: No Current occupational status: disabled Meds Allergies Allergy/AdvReac Type Severity Reaction Status Date / Time No Known Allergies (No Known Allergy Verified 05/18/25 14:33 Allergies*) Active Medications: Current Medications Acetaminophen (Acetaminophen 325 Mg Tablet) 650 mg PO Q6H PRN PRN Reason: Pain, Mild 1-3,fever,headache Atorvastatin Calcium (Atorvastatin Calcium 40 Mg Tablet) 40 mg PO DAILY [facility] Last Admin: 05/19/25 09:25 Dose: 40 mg Bumetanide (Bumetanide 1 Mg/4 Ml Vial) 1 mg IVPUSH DAILY [facility]; Protocol Last Admin: 05/19/25 09:25 Dose: 1 mg Calcitriol (Calcitriol 0.25 Mcg Capsule) 0.25 mcg PO Q48H [facility] Last Admin: 05/19/25 09:40 Dose: 0.25 mcg Calcium Carbonate (Calcium Carbonate 750 Mg Tab.Chew) 750 mg PO Q4H PRN PRN Reason: Heartburn Carvedilol (Carvedilol 6.25 Mg Tablet) 6.25 mg PO BID [facility]; Protocol Last Admin: 05/19/25 20:52 Dose: 6.25 mg Hydralazine HCl (Hydralazine Hcl 10 Mg Tablet) 10 mg PO TID [facility]; Protocol Last Admin: 05/19/25 20:05 Dose: 10 mg Piperacillin Sod/Tazobactam (Sod 2.25 gm/ Sodium Chloride) 50 mls @ 100 mls/hr IV Q6H [facility] Last Infusion: 05/20/25 06:00 Dose: Infused Linezolid (Zyvox/D5w) 600 mg in 300 mls @ 300 mls/hr IV Q12H [facility] Last Infusion: 05/20/25 07:49 Dose: Infused Isosorbide Dinitrate (Isosorbide Dinitrate 5 Mg Tablet) 5 mg PO TID@0800,1300,1800 [facility]; Protocol Last Admin: 05/19/25 20:05 Dose: 5 mg Magnesium Hydroxide (Milk Of Magnesia 30 Ml Oral.Susp) 30 ml PO DAILY PRN PRN Reason: Constipation Melatonin (Melatonin 3 Mg Tablet) 6 mg PO BEDTIME PRN PRN Reason: Insomnia Metolazone (Metolazone 2.5 Mg Tablet) 2.5 mg PO MOWEFR [facility] Morphine Sulfate (Morphine Sulfate 2 Mg/Ml Cartridge) 2 mg IVPUSH Q3H PRN; Protocol PRN Reason: Pain, Severe (Pain Scale 7-10) Last Admin: 05/20/25 04:14 Dose: 2 mg Oxycodone HCl (Oxycodone Hcl Immed Release 5 Mg Tablet) 5 mg PO Q4H PRN PRN Reason: Pain, Moderate(Pain Scale 4-6) Pantoprazole Sodium (Pantoprazole Sodium 40 Mg/10 Ml Vial) 40 mg IVPUSH BID@0630,1630 [facility] Last Admin: 05/20/25 05:22 Dose: 40 mg Sodium Chloride (0.9 % Sodium Chloride Flush 3 Ml Syringe) 3 ml IVFLUSH QSHIFT [facility] Last Admin: 05/19/25 20:06 Dose: 3 ml Home Medications ?Medication ?Instructions ?Recorded ?Confirmed ?Last Taken ?Type blood-glucose meter #1 ea 05/14/20 01/14/24 Unknown History lancets #100 ea 05/14/20 01/14/24 Unknown History atorvastatin 40 mg tablet 40 mg PO DAILY 12/19/22 05/18/25 04/06/25 History apixaban 2.5 mg tablet (Eliquis) 2.5 mg PO BID 12/05/24 05/18/25 04/06/25 History ferrous sulfate 325 mg (65 mg 325 mg PO BID 03/30/25 05/18/25 04/06/25 History iron) tablet calcitriol 0.25 mcg capsule 0.25 mcg PO Q48H 05/04/25 05/18/25 Unknown History metolazone 2.5 mg tablet 2.5 mg PO MOWEFR 05/04/25 05/18/25 Unknown History Exam Height,Weight and Vital Signs: Height 5 ft 9 in Weight 77.7 kg Last Vital Signs Temp 97.6 F 05/20/25 07:15 Pulse 60 05/20/25 07:15 Resp 18 05/20/25 07:15 BP 126/61 05/20/25 07:15 Pulse Ox 92 05/20/25 07:15 O2 Del Method Room Air 05/20/25 07:15 Pertinent Lab Results Pertinent Lab Results: Laboratory Tests 05/18/25 05/18/25 05/18/25 14:59 15:04 15:30 WBC 4.6 L RBC 2.78 L Hgb 6.9 L* Hct 22.6 L MCV 81.3 MCH 24.8 L MCHC 30.5 L RDW 17.7 H Plt Count 149 L MPV 9.1 L Immature Gran % (Auto) 0.4 Neut % (Auto) 73.8 H Lymph % (Auto) 13.9 L Arthur % (Auto) 10.2 Eos % (Auto) 1.5 Baso % (Auto) 0.2 Lymph # (Auto) 0.6 L Arthur # (Auto) 0.5 Eos # (Auto) 0.1 Baso # (Auto) 0.0 Abs Immat Gran (auto) 0.02 Absolute Neuts (auto) 3.4 Absolute Nucleated RBC 0.040 H Nucleated RBC % (auto) 0.9 H Sodium 134 L Potassium 4.8 Chloride 102 Carbon Dioxide 21 L Anion Gap 16 BUN 136 H Creatinine 3.19 H Estim Creat Clear Calc 23.1 Estimated GFR 19 Random Glucose 82 Calcium 8.5 Magnesium 2.1 Total Bilirubin 0.7 AST 51 H ALT 24 Alkaline Phosphatase 138 H Troponin I High Sens 35.8 H NT-Pro-B Natriuret Pep 97782.1 H Total Protein 7.4 Albumin 3.3 L U Random Total Protein Urine Creatinine Stool Occult Blood POSITIVE Blood Type B Positive Antibody Screen NEGATIVE Crossmatch See Detail 05/18/25 05/19/25 05/19/25 19:16 04:14 12:56 WBC 6.7 RBC 3.03 L Hgb 7.8 L Hct 24.8 L MCV 81.8 MCH 25.7 L MCHC 31.5 RDW 17.6 H Plt Count 129 L MPV 9.2 L Immature Gran % (Auto) Neut % (Auto) Lymph % (Auto) Arthur % (Auto) Eos % (Auto) Baso % (Auto) Lymph # (Auto) Arthur # (Auto) Eos # (Auto) Baso # (Auto) Abs Immat Gran (auto) Absolute Neuts (auto) Absolute Nucleated RBC 0.030 H Nucleated RBC % (auto) 0.4 H Sodium 137 Potassium 5.2 H Chloride 105 Carbon Dioxide 20 L Anion Gap 17 BUN 136 H Creatinine 3.29 H Estim Creat Clear Calc 22.4 Estimated GFR 19 Random Glucose 135 H Calcium 8.6 Magnesium 2.0 Total Bilirubin 1.0 AST 34 ALT 22 Alkaline Phosphatase 129 H Troponin I High Sens 35.1 H NT-Pro-B Natriuret Pep Total Protein 7.0 Albumin 3.2 L U Random Total Protein Urine Creatinine Stool Occult Blood Blood Type Antibody Screen Crossmatch 05/19/25 05/20/25 05/20/25 13:54 06:20 06:21 WBC 4.2 L RBC 2.99 L Hgb 7.6 L Hct 24.6 L MCV 82.3 MCH 25.4 L MCHC 30.9 L RDW 17.8 H Plt Count 105 L MPV 9.2 L Immature Gran % (Auto) Neut % (Auto) Lymph % (Auto) Arthur % (Auto) Eos % (Auto) Baso % (Auto) Lymph # (Auto) Arthur # (Auto) Eos # (Auto) Baso # (Auto) Abs Immat Gran (auto) Absolute Neuts (auto) Absolute Nucleated RBC 0.000 Nucleated RBC % (auto) 0.0 Sodium 136 Potassium 4.9 Chloride 104 Carbon Dioxide 20 L Anion Gap 17 BUN 128 H Creatinine 3.25 H Estim Creat Clear Calc 20.5 Estimated GFR 19 Random Glucose 94 Calcium 8.8 Magnesium Total Bilirubin AST ALT Alkaline Phosphatase Troponin I High Sens NT-Pro-B Natriuret Pep 64340.8 H Total Protein Albumin U Random Total Protein 10 Urine Creatinine 20.92 Stool Occult Blood Blood Type Antibody Screen Crossmatch Narrative Narrative: ECHO 05/04/25 Conclusions: - Normal left ventricular cavity size. There is mildly increased left ventricular wall thickness. The left ventricular systolic function is mildly decreased. The visually estimated ejection fraction is between 40-45%. - The basal inferoseptal segment is hypokinetic. - Mildly increased right ventricular cavity size. There is moderately decreased right ventricular systolic function. - The left atrium is severely dilated. The right atrium is severely dilated. - Severe pulmonary hypertension is present. - There is a small pericardial effusion. Findings Left Ventricle Normal left ventricular cavity size. There is mildly increased left ventricular wall thickness. The left ventricular systolic function is mildly decreased. The visually estimated ejection fraction is between 40-45%. There is evidence of regional wall motion abnormalities. Diastolic function is indeterminate on the basis of available data. Wall Motion Rest Echo Findings The basal inferoseptal segment is hypokinetic. Prior Study Comparison Changes noted compared to prior study dated: 12/05/2024. EF 40-45%, Mild to mod RV dysfunction, Severe Pulm HTN. EKG 05/18/25 Test Reason : CAD Blood Pressure : */* mmHG Vent. Rate : 57 BPM Atrial Rate : * BPM P-R Int : * ms QRS Dur : 88 ms QT Int : 462 ms P-R-T Axes : * 49 211 degrees QTcB Int : 449 ms Atrial fibrillation with slow ventricular response Low voltage QRS T wave abnormality, consider inferolateral ischemia Abnormal ECG When compared with ECG of 03-May-2025 22:03, No significant change was found Airway Heart: RRR Lungs: CTAB Other: trace b/l LE edema Assessment and Plan Final Anesthetic Review Family History of Problems with Anesthesia: No History of Problems with Anesthesia: No Documented by User: Yodit Lyon MD 05/20/25 12:40 [facility] Past Medical History Medical History Chronic atrial fibrillation Hypoxia Acute on chronic heart failure with preserved ejection fraction (HFpEF) Anemia in chronic kidney disease (CKD) Hypertension Uncontrolled hypertension Congestive heart failure CKD (chronic kidney disease) CHF (congestive heart failure) CKD (chronic kidney disease) stage 4, GFR 15-29 ml/min Obesity (BMI 30.0-34.9) Cardiomyopathy Stroke CKD (chronic kidney disease) Former smoker Depression Diabetes High cholesterol Family History Family History Father No problems noted. Mother Diabetes Hypertension Cancer Son No problems noted. Son No problems noted. Son No problems noted. Daughter No problems noted. Daughter No problems noted. Surgical History Surgical History History of aneurysm History of shoulder surgery Social History Social History Household Members: Family Household Members Other:: Housing: Apartment Are you a primary lawn care specialist to a significant other at home: No Do you presently have visiting nurse or other home services: Yes Alcohol intake: never Comment: Sitter at bedside Patient Tobacco Use Status: Former Tobacco user Substance Use Type: Marijuana Advance Directives Date on File: 12/17/24 service: No Current occupational status: disabled Meds Allergies Allergy/AdvReac Type Severity Reaction Status Date / Time No Known Allergies (No Known Allergy Verified 05/18/25 14:33 Allergies*) Home Medications ?Medication ?Instructions ?Recorded ?Confirmed ?Last Taken ?Type blood-glucose meter #1 ea 05/14/20 01/14/24 Unknown History lancets #100 ea 05/14/20 01/14/24 Unknown History atorvastatin 40 mg tablet 40 mg PO DAILY 12/19/22 05/18/25 04/06/25 History apixaban 2.5 mg tablet (Eliquis) 2.5 mg PO BID 12/05/24 05/18/25 04/06/25 History ferrous sulfate 325 mg (65 mg 325 mg PO BID 03/30/25 05/18/25 04/06/25 History iron) tablet calcitriol 0.25 mcg capsule 0.25 mcg PO Q48H 05/04/25 05/18/25 Unknown History metolazone 2.5 mg tablet 2.5 mg PO MOWEFR 05/04/25 05/18/25 Unknown History Exam Airway Mallampati Class: III TM Dist: >3cm Neck ROM: Full Assessment and Plan Assessment Anesthesia Assessment: Anesthesia Plan Discussed (increased risk for cardiac event,) and Chart Reviewed Final Anesthetic Review NPO: Yes ASA Class: III Final Preanesthetic Review: No Changes in Pt Med Stat, Meds/Allgs Chart Reviewed and Consent Obtained/Reviewed Patient Risk: Intermediate Procedure Risk: Intermediate Anesthetic Plan Anesthetic Plan: MAC: Disposition: Standard PACU
--- NOTE | 2025-05-20 11:52 | PM.PNCARD ---
Subjective Subjective Date of Service: 05/20/25 Principal diagnosis: CHF, chronic AFib. Interval history: Overall patient seems to be doing better. Has diuresed tepidly. Receiving blood transfusion. Hemoglobin as only marginally improved. Remains in atrial fibrillation. He says he feels better but clinically appears to be mildly short of breath. Review of Systems Constitutional: Reports weakness Cardiovascular: Denies chest pain, Denies lightheadedness, Denies Loss of Consciousness, Denies palpitations and Reports dyspnea Respiratory: Reports no additional respiratory complaints and Reports dyspnea Gastrointestinal: Reports no additional gastrointestinal complaints Reports weakness Endocrine: Denies palpitations Physical Exam Vital Signs: Last Vital Signs Temp 97.3 F 05/20/25 11:13 Pulse 62 05/20/25 11:13 Resp 18 05/20/25 11:13 BP 102/60 05/20/25 11:13 Pulse Ox 94 05/20/25 11:13 O2 Del Method Room Air 05/20/25 11:13 BMI result Body Mass Index 25.3 Const General: alert, awake, in distress mild and respiratory and combative Nutritional Appearance: overweight Orientation/consciousness: patient oriented x3 HEENT Head: Yes normocephalic and Yes atraumatic Neck Neck: Yes trachea midline, Yes supple and Yes JVD Resp Effort & Inspection: decreased respiratory effort Auscultation: diminished lung sounds Cardio Jugular venous distension: JVD Rhythm: abnormal rhythm irregularly irregular Heart sounds: S1 normal heart sound present, S2 normal heart sound present, no click and no gallops GI Auscultation: normal bowel sounds Skin General skin exam: no rashes or lesions noted and ecchymosis Neuro General: patient oriented x3 and no focal motor deficits Extrem General: No clubbing, No cyanosis and Yes edema Objective Labs and Meds 05/20/25 06:20 05/20/25 06:21 Lab results: Laboratory Results - last 24 hr 05/18/25 05/19/25 05/19/25 15:30 12:56 13:54 WBC 6.7 RBC 3.03 L Hgb 7.8 L Hct 24.8 L MCV 81.8 MCH 25.7 L MCHC 31.5 RDW 17.6 H Plt Count 129 L MPV 9.2 L Absolute Nucleated RBC 0.030 H Nucleated RBC % (auto) 0.4 H Sodium Potassium Chloride Carbon Dioxide Anion Gap BUN Creatinine Estim Creat Clear Calc Estimated GFR Random Glucose Calcium NT-Pro-B Natriuret Pep U Random Total Protein 10 Urine Creatinine 20.92 Blood Type B Positive Antibody Screen NEGATIVE Crossmatch See Detail 05/20/25 05/20/25 06:20 06:21 WBC 4.2 L RBC 2.99 L Hgb 7.6 L Hct 24.6 L MCV 82.3 MCH 25.4 L MCHC 30.9 L RDW 17.8 H Plt Count 105 L MPV 9.2 L Absolute Nucleated RBC 0.000 Nucleated RBC % (auto) 0.0 Sodium 136 Potassium 4.9 Chloride 104 Carbon Dioxide 20 L Anion Gap 17 BUN 128 H Creatinine 3.25 H Estim Creat Clear Calc 20.5 Estimated GFR 19 Random Glucose 94 Calcium 8.8 NT-Pro-B Natriuret Pep 38901.8 H U Random Total Protein Urine Creatinine Blood Type Antibody Screen Crossmatch Progress Note: A&P Assessment and plan (1) Acute CHF: Status: Acute Assessment and Plan: Acute congestive heart failure induced by significant anemia with multiple comorbidities. Patient is still appears to be fluid overloaded. I would uptitrate his bumetanide to 2 mg b.i.d. IV push. Strict intake and output chart needs to be pursued. Continue monitor renal function. Continue to transfuse to maintain hematocrit over 30. Continue rate control. Overall prognosis remains guarded. Continue to uptitrate hydralazine for better blood pressure control and afterload reduction. Continue carvedilol therapy. (2) Chronic atrial fibrillation: Status: Acute Assessment and Plan: Chronic atrial fibrillation with adequate rate control. Developed GI bleed and significant anemia decompensated congestive heart failure related to that. Agree with holding oral anticoagulation therapy in future may need to consider Watchman device after adequate GI workup. Scheduled for GI endoscopy. Once heart failure is better controlled I think patient is optimized to undergo upper and lower endoscopy to assess for GI blood loss. Will continue to follow with you Time Spent With Patient Time: Total time managing care of this patient today ____ minutes. Progress Note: Quality Stroke Does the patient have a stroke diagnosis?: No Procedures Date of Service Date of Service: 05/20/25
--- NOTE | 2025-05-20 12:28 | MHC.CM.PN ---
PLAN IS FOR EGD TODAY NEEDS ABX AND DIURESIS. CM FOLLOWING
[2025-05-20 12:44] LABS: Glucose, Whole Blood 102 mg/dL (60-115)
--- NOTE | 2025-05-20 12:48 | P.PNGI_ITS ---
Subjective Subjective Date of Service: 05/20/25 Interval History: denies abdominal pain today, HGB stable no n./v no melena no rectal bleeding no SOB Critical Care Time (minutes): 0 Physical Exam 2 Exam: Exam: EXAM: GENERAL: The patient is relaxed VITAL SIGNS:see workflow HEENT: Nonicteric sclerae, PERRLA, EOMI. Oropharynx clear. Moist mucous membranes. Conjunctivae appear well perfused. No thyroid mass. CHEST: Chest wall is nontender. HEART: Regular rate and rhythm without murmurs. LUNGS: Clear to auscultation bilaterally. ABDOMEN: Soft, positive bowel sounds, nontender, no organomegaly.no flank tenderness SKIN: superficial wounds both shins, NEUROLOGIC: Cranial nerves II-XII intact without motor/sensory deficit. Psych: normal affect Vital Signs: Vital Signs: Last Vital Signs Temp 97.2 F 05/20/25 12:35 Pulse 45 L 05/20/25 12:35 Resp 16 05/20/25 12:35 BP 111/58 L 05/20/25 12:43 Pulse Ox 94 05/20/25 12:35 O2 Del Method Room Air 05/20/25 12:35 BMI result Body Mass Index 25.3 Objective Data Labs 05/20/25 06:20 05/20/25 06:21 Labs: Laboratory Results - last 24 hr 05/18/25 05/19/25 05/19/25 15:30 12:56 13:54 WBC 6.7 RBC 3.03 L Hgb 7.8 L Hct 24.8 L MCV 81.8 MCH 25.7 L MCHC 31.5 RDW 17.6 H Plt Count 129 L MPV 9.2 L Absolute Nucleated RBC 0.030 H Nucleated RBC % (auto) 0.4 H Sodium Potassium Chloride Carbon Dioxide Anion Gap BUN Creatinine Estim Creat Clear Calc Estimated GFR POC Glucose Random Glucose Calcium NT-Pro-B Natriuret Pep U Random Total Protein 10 Urine Creatinine 20.92 Blood Type B Positive Antibody Screen NEGATIVE Crossmatch See Detail 05/20/25 05/20/25 05/20/25 06:20 06:21 12:34 WBC 4.2 L RBC 2.99 L Hgb 7.6 L Hct 24.6 L MCV 82.3 MCH 25.4 L MCHC 30.9 L RDW 17.8 H Plt Count 105 L MPV 9.2 L Absolute Nucleated RBC 0.000 Nucleated RBC % (auto) 0.0 Sodium 136 Potassium 4.9 Chloride 104 Carbon Dioxide 20 L Anion Gap 17 BUN 128 H Creatinine 3.25 H Estim Creat Clear Calc 20.5 Estimated GFR 19 POC Glucose 102 Random Glucose 94 Calcium 8.8 NT-Pro-B Natriuret Pep 57373.8 H U Random Total Protein Urine Creatinine Blood Type Antibody Screen Crossmatch Procedures Date of Service Date of Service: 05/20/25 Progress Note: A&P Assessment and plan (1) Anemia: Status: Acute Plan 1/ Anemia with abdo pain and hx of biliary stent in situ PLAN: 1/ EGD to check for ulcers and stent removal 2/ possible sig if above is neg 3/ cont with PPI for the moment Time Spent With Patient Time: Total time managing care of this patient today ____ minutes. Quality Stroke Does the patient have a stroke diagnosis?: No VTE Prior VTE?: No VTE Risk Level:: Medical - moderate - high VTE Device Contraindication: Treatment Not Indicated VTE Drug Contraindication: N/A - Med Ordered
--- NOTE | 2025-05-20 12:50 | PC.NURSE ---
Addendum entered by Shruthi Camara RN 05/20/25 12:51: this RN accompanied patient down to short stay for procedure at 1215 due to blood transfusion still running, and handed patient off to Magui ANDRES Original Note: this RN accompanied patient down to short stay for procedure due to blood transfusion still running, and handed patient off to Magui ANDRES
--- NOTE | 2025-05-20 13:27 | PC.NURSE ---
Patient arrived to [facility] with blood running on a pump that was programmed at 75 ml/hr. with no saline bag attached to blood tubing stating that one hour nine minutes was left in infusion, but bag was completed. Patient did receive second bag of blood, but unable to document correctly in TAR due to notification that blood had already timed out. Blood tubing detached from patient only. Vital signs documented at end time. Patient also has bilateral weeping leg wounds that were each resting on white bed pads from floor. Dr. Fernandez requested that non stick dressings be applied to weeping area on each leg and wrapped with kirk bandages lightly to prevent further shearing in operating room when patient positioned for his two procedures. Jordana Gracia EDGE SETTER will update PACU regarding leg wounds.
--- NOTE | 2025-05-20 13:38 | MHC.CM.PN ---
PATIENT IS OFF UNIT FOR CM ASSESSMENT AND IMM DELIVERY. IMM LEFT BEDSIDE AND CM NAME WRITTEN ON WHITE BOARD, WELL INSTRUCTIONS TO ASK FOR CM FOR ANY IMM QUESTIONS. CM FOLLOWING.
--- NOTE | 2025-05-20 14:03 | W.PM.OPN ---
Operative Note Operative Note Date of Service: 05/20/25 Narrative: Procedure Description: EGD Indication: anemia and melena Anesthesia: MAC FLEXIBLE TRANSORAL UPPER GASTROINTESTINAL ENDOSCOPY UPPER ENDOSCOPY Consent: Indications for the procedure and potential complications of bleeding, perforation, reaction to medications and missed diagnosis were discussed with the patient and informed consent was obtained. Instrument: Olympus GIF H 190 J mid size upper endoscope Monitoring: Vital signs and clinical assessment, continuous EKG monitoring, Pulse oximetry, Carbon Dioxide monitoring and blood pressure monitoring were done throughout the procedure. Procedure: The patient was placed in the left lateral decubitis position and pre-procedure medications were administered and a bite block was placed. The endoscope was inserted into the mouth and advanced under direct vision to the third part of duodenum. A careful inspection was made as the upper endoscope was withdrawn including a retroflexed examination of the proximal stomach; Findings and interventions are described below. Findings: Larynx:normal Esophagus: GE junction at 40 cm, diaphragm hiatus at 40 cm, mild esophagitis Stomach: granular mucosa and patchy erythema . Biopsies were obtained. Grade 2 flap valve on retroflexed examination of the cardia. No ulcers seen. Duodenum: bulbar duodenitis, biliary stent was noted and removed easily with a snare Intervention: Biopsies as noted above, stent removal Patient turned for sigmoidoscopy: normal stool noted, no blood or melena seen, x 1 sessile polyp in rectum about 10 mm, lifted with eleview and removed with cold snare and x 2 clips applied for hemostasis -internal hemorrhoids noted Impression/Findings: gastritis duodenitis esophagitis stent removal internal hemorrhoids polyp PLAN: can restart anticoagulation tomorrow Cont with PPI, can add carafate for 2 weeks, 1 g BID but different time from other meds GERD precautions if further bleeding then capsule endo
--- NOTE | 2025-05-20 14:27 | P.PNIM_ITS ---
Subjective Subjective Date of Service: 05/20/25 Interval History: This history was taken in [place] from the patient. A little short of breath but overall improved; leg pain controlled; No hematemesis, hematochezia, or melena. Review of Systems Review of Systems: Yes all other systems are reviewed and are negative Physical Exam 2 Vital Signs: Vital Signs: Last Vital Signs Temp 97.9 F 05/20/25 13:04 Pulse 46 L 05/20/25 13:04 Resp 16 05/20/25 13:04 BP 97/54 L 05/20/25 13:04 Pulse Ox 94 05/20/25 12:35 O2 Del Method Room Air 05/20/25 12:35 BMI result Body Mass Index 25.3 Gen: in no acute distress but in pain HEENT: sclera anicteric, moist mucus membranes Neck: supple Lungs: diminished Heart: irregular, no murmurs Abd: soft, non-tender, non-distended Ext: 1+ bilateral leg edema Skin: warm/well-perfused, bilateral venous stasis ulcers Neuro: alert and oriented x3, no focal findings Psych: irritated, anxious Objective Data Active Medications Acetaminophen (Acetaminophen 325 Mg Tablet) 650 mg PO Q6H PRN PRN Reason: Pain, Mild 1-3,fever,headache Atorvastatin Calcium (Atorvastatin Calcium 40 Mg Tablet) 40 mg PO DAILY [facility] Last Admin: 05/20/25 09:32 Dose: Not Given Documented By: BELINDA Non-Admin Reason: held for egd Bumetanide (Bumetanide 1 Mg/4 Ml Vial) 1 mg IVPUSH DAILY [facility]; Protocol Last Admin: 05/20/25 09:32 Dose: Not Given Documented By: BELINDA Non-Admin Reason: held for egd Calcitriol (Calcitriol 0.25 Mcg Capsule) 0.25 mcg PO Q48H [facility] Last Admin: 05/19/25 09:40 Dose: 0.25 mcg Documented By: BALTA Calcium Carbonate (Calcium Carbonate 750 Mg Tab.Chew) 750 mg PO Q4H PRN PRN Reason: Heartburn Carvedilol (Carvedilol 6.25 Mg Tablet) 6.25 mg PO BID [facility]; Protocol Last Admin: 05/20/25 09:30 Dose: 6.25 mg Documented By: BELINDA Hydralazine HCl (Hydralazine Hcl 10 Mg Tablet) 10 mg PO TID [facility]; Protocol Last Admin: 05/20/25 09:32 Dose: Not Given Documented By: BELINDA Non-Admin Reason: held for egd Piperacillin Sod/Tazobactam (Sod 2.25 gm/ Sodium Chloride) 50 mls @ 100 mls/hr IV Q6H [facility] Last Infusion: 05/20/25 06:00 Dose: Infused Documented By: JUSTIN Linezolid (Zyvox/D5w) 600 mg in 300 mls @ 300 mls/hr IV Q12H [facility] Last Infusion: 05/20/25 07:49 Dose: Infused Documented By: BELINDA Isosorbide Dinitrate (Isosorbide Dinitrate 5 Mg Tablet) 5 mg PO TID@0800,1300,1800 [facility]; Protocol Last Admin: 05/20/25 09:32 Dose: Not Given Documented By: BELINDA Non-Admin Reason: held for egd Magnesium Hydroxide (Milk Of Magnesia 30 Ml Oral.Susp) 30 ml PO DAILY PRN PRN Reason: Constipation Melatonin (Melatonin 3 Mg Tablet) 6 mg PO BEDTIME PRN PRN Reason: Insomnia Metolazone (Metolazone 2.5 Mg Tablet) 2.5 mg PO MOWEFR [facility] Last Admin: 05/20/25 09:32 Dose: Not Given Documented By: BELINDA Non-Admin Reason: held for egd Morphine Sulfate (Morphine Sulfate 2 Mg/Ml Cartridge) 2 mg IVPUSH Q3H PRN; Protocol PRN Reason: Pain, Severe (Pain Scale 7-10) Last Admin: 05/20/25 04:14 Dose: 2 mg Documented By: JUSTIN Naloxone HCl (Naloxone Hcl 0.4 Mg/Ml Vial) 0.04 mg IVPUSH Q5M PRN PRN Reason: Excessive sedation or RR < 8 Oxycodone HCl (Oxycodone Hcl Immed Release 5 Mg Tablet) 5 mg PO Q4H PRN PRN Reason: Pain, Moderate(Pain Scale 4-6) Pantoprazole Sodium (Pantoprazole Sodium 40 Mg/10 Ml Vial) 40 mg IVPUSH BID@0630,1630 [facility] Last Admin: 05/20/25 05:22 Dose: 40 mg Documented By: JUSTIN Sodium Biphosphate/Sodium Phosphate (Sodium Phosphate,[place]-Dibasic 133 Ml Enema) 133 ml FL ONCE PRN PRN Reason: Consult order Last Admin: 05/20/25 10:53 Dose: 133 ml Documented By: EBLINDA Sodium Chloride (0.9 % Sodium Chloride Flush 3 Ml Syringe) 3 ml IVFLUSH QSHIFT [facility] Last Admin: 05/20/25 09:32 Dose: Not Given Documented By: BELINDA Non-Admin Reason: Blood Running Labs 05/20/25 06:20 05/20/25 06:21 Labs: Laboratory Results - last 24 hr 05/18/25 05/20/25 05/20/25 15:30 06:20 06:21 MCV 82.3 MCH 25.4 L MCHC 30.9 L RDW 17.8 H Plt Count 105 L MPV 9.2 L Absolute Nucleated RBC 0.000 Nucleated RBC % (auto) 0.0 Anion Gap 17 Estim Creat Clear Calc 20.5 Estimated GFR 19 POC Glucose Random Glucose 94 Calcium 8.8 NT-Pro-B Natriuret Pep 35021.8 H Blood Type B Positive Antibody Screen NEGATIVE Crossmatch See Detail 05/20/25 12:34 MCV MCH MCHC RDW Plt Count MPV Absolute Nucleated RBC Nucleated RBC % (auto) Anion Gap Estim Creat Clear Calc Estimated GFR POC Glucose 102 Random Glucose Calcium NT-Pro-B Natriuret Pep Blood Type Antibody Screen Crossmatch Assessment and Plan (1) Acute CHF: Status: Acute Plan d3, 74yo M with HFrEF, AF on apixaban, DM2, HTN, HLD, CAD, hyperPTH presenting with bilateral leg swelling and pain, blood in the stool admitted for acute/chronic HFrEF, leg wound infection, GI bleed acute/chronic anemia due to GI bleed - IV PPI, GI consulted, transfused 1u pRBCs 05/19 and will give another unit today - EGD + sigmoidoscopy done today by Dr Fernandez- showed gastritis, duodenitis, esophagitis; old biliary stent removed; 1 sessile polyp in rectum; internal hemorrhoids - resume apixaban tomorrow acute/chronic HFrEF - continue IV bumetanide, PO metolazone, monitor I/O, BMP, BNP, Mg, weights - continue carvedilol - started hydralazine + Isordil to replace amlodipine - Cardiology following - TTE 05/18/25: - Normal left ventricular cavity size. There is mildly increased left ventricular wall thickness. The left ventricular systolic function is mildly decreased. The visually estimated ejection fraction is between 40-45%. - The basal inferoseptal segment is hypokinetic. - Mildly increased right ventricular cavity size. There is moderately decreased right ventricular systolic function. - The left atrium is severely dilated. The right atrium is severely dilated. - Severe pulmonary hypertension is present. - There is a small pericardial effusion bilateral venous stasis ulcers with concern for infection - changed ceftriaxone to linezolid + renally-dosed piperacillin-tazobactam 05/19- - Wound Care consulted: Bilateral legs - cleanse with saline, apply durafiber ag, cover with ABD pads, hold in place with rolled gauze or stretch netting, change every other day and PRN Buttock - Off Load Pressure with Q2 hr turns and use of pillows - Cleanse with PH balance spray or wipes, pat dry. ?Apply thin layer of barrier cream to affected area.? Apply twice daily and Reapply thin layer PRN after each episode of incontinence. CKD3b - Nephrology consulted, following - continue calcitriol chronic AF - continue carvdilol - resume apixaban 05/21 CAD/HLD: statin VTE ppx: SCDs, resume apixaban 05/21 dispo: TBD In my clinical judgment, the patient requires continued inpatient hospitalization for the following reasons: GI bleed, IV diuresis, IV ABX Total time managing care of this patient today: 40 minutes. Quality Stroke Does the patient have a stroke diagnosis?: No VTE Prior VTE?: No VTE Risk Level:: Medical - moderate - high VTE Device Contraindication: Treatment Not Indicated VTE Drug Contraindication: N/A - Med Ordered
[2025-05-20] MEDS: 0.9 % Sodium Chloride Flush 3 ML SYRINGE IVFLUSH ×2 (18:35→20:11)
[2025-05-21] VITALS (9 sets, daily range): BP systolic 88–119; BP diastolic 44–56; PULSE 38–71; RESP 17–18; TEMP 35.5–36.8; O2SAT 91–97
[2025-05-21] MEDS: oxyCODONE HCl Immed Release 5 MG TABLET PO ×2 (01:08→21:06)
[2025-05-21] MEDS: Linezolid/D5W 600 MG/300 ML PIGGYBACK 300 MG IV ×2 (05:30→18:11)
[2025-05-21 06:57] LABS: Hematocrit 26.3 % (42.0-52.0); Hemoglobin 8.3 g/dl (14.0-18.0); Mean Corpuscular HGB Conc 31.6 g/dl (31.0-36.0); Mean Corpuscular Hemoglobin 26.2 pg (27.0-33.0); Mean Corpuscular Volume 83.0 fL (80.0-98.0); NRBC Abs Auto 0.000 X10*3/uL (0.0-0.012); NRBC Pct Auto 0.0 /100WBC (0.0-0.2); Red Blood Count 3.17 X10*6/uL (4.60-5.80); White Blood Count 3.8 X10*3/uL (4.8-10.8)
[2025-05-21 07:02] LABS: Anion Gap 16 (12-20); Calcium 8.4 mg/dL (8.4-10.2); Carbon Dioxide 21 mmol/L (22-29); Chloride 102 mmol/L (96-108); Creatinine Clr Calc Pharmacy 17.6; Estimated Glomerular Filt Rate 16; Magnesium 2.2 mg/dL (1.6-2.6); Potassium 4.7 mmol/L (3.3-5.1); Sodium 134 mmol/L (135-145)
[2025-05-21 07:08] LABS: NT Pro B Type Natriuretic Pept 11199.3 pg/mL (<300)
[2025-05-21 07:12] LABS: Blood Urea Nitrogen 145 mg/dL (9-16); Platelet Count 89 X10*3/uL (160-400)
[2025-05-21] MEDS: 0.9 % Sodium Chloride Flush 3 ML SYRINGE IVFLUSH ×3 (08:51→21:13)
[2025-05-21] MEDS: Bumetanide 1 MG/4 ML VIAL 2 MG IVPUSH (08:51)
--- NOTE | 2025-05-21 10:21 | P.PNIM_ITS ---
Subjective Subjective Date of Service: 05/21/25 Interval History: No hematemesis, hematochezia, or melena. Legs still swollen HR as low as 29 though without symptoms This history was taken in Greek from the patient. Review of Systems Review of Systems: Yes all other systems are reviewed and are negative Physical Exam 2 Vital Signs: Vital Signs: Last Vital Signs Temp 98.2 F 05/21/25 07:57 Pulse 42 L 05/21/25 08:41 Resp 18 05/21/25 07:57 BP 119/56 L 05/21/25 07:57 Pulse Ox 91 L 05/21/25 07:57 O2 Del Method Room Air 05/21/25 07:57 O2 Flow Rate 2 05/20/25 15:45 BMI result Body Mass Index 25.3 Gen: in no acute distress HEENT: sclera anicteric, moist mucus membranes Neck: supple Lungs: diminished Heart: irregular, slow, no murmurs Abd: soft, non-tender, non-distended Ext: 1+ bilateral leg edema Skin: warm/well-perfused, bilateral venous stasis ulcers Neuro: alert and oriented x3, no focal findings Psych: normal affect Objective Data Active Medications Acetaminophen (Acetaminophen 325 Mg Tablet) 650 mg PO Q6H PRN PRN Reason: Pain, Mild 1-3,fever,headache Apixaban (Apixaban 2.5 Mg Tablet) 2.5 mg PO BID [facility] Last Admin: 05/21/25 08:50 Dose: 2.5 mg Documented By: NATHAN Atorvastatin Calcium (Atorvastatin Calcium 40 Mg Tablet) 40 mg PO DAILY [facility] Last Admin: 05/21/25 08:50 Dose: 40 mg Documented By: NATHAN Bumetanide (Bumetanide 1 Mg/4 Ml Vial) 2 mg IVPUSH BID@0900,1700 [facility]; Protocol Last Admin: 05/21/25 08:51 Dose: 2 mg Documented By: NATHAN Calcitriol (Calcitriol 0.25 Mcg Capsule) 0.25 mcg PO Q48H [facility] Last Admin: 05/21/25 08:50 Dose: 0.25 mcg Documented By: NATHAN Calcium Carbonate (Calcium Carbonate 750 Mg Tab.Chew) 750 mg PO Q4H PRN PRN Reason: Heartburn Hydralazine HCl (Hydralazine Hcl 10 Mg Tablet) 10 mg PO TID [facility]; Protocol Last Admin: 05/21/25 08:50 Dose: 10 mg Documented By: NATHAN Linezolid (Zyvox/D5w) 600 mg in 300 mls @ 300 mls/hr IV Q12H [facility] Last Infusion: 05/21/25 06:42 Dose: Infused Documented By: JUANITA Piperacillin Sod/Tazobactam (Sod 2.25 gm/ Sodium Chloride) 50 mls @ 100 mls/hr IV Q6H [facility] Last Infusion: 05/21/25 09:59 Dose: Infused Documented By: NATHAN Isosorbide Dinitrate (Isosorbide Dinitrate 5 Mg Tablet) 5 mg PO TID@0800,1300,1800 [facility]; Protocol Last Admin: 05/21/25 08:50 Dose: 5 mg Documented By: NATHAN Magnesium Hydroxide (Milk Of Magnesia 30 Ml Oral.Susp) 30 ml PO DAILY PRN PRN Reason: Constipation Melatonin (Melatonin 3 Mg Tablet) 6 mg PO BEDTIME PRN PRN Reason: Insomnia Last Admin: 05/20/25 20:10 Dose: 6 mg Documented By: JUANITA Metolazone (Metolazone 2.5 Mg Tablet) 2.5 mg PO MOWEFR [facility] Last Admin: 05/20/25 09:32 Dose: Not Given Documented By: BELINDA Non-Admin Reason: held for egd Morphine Sulfate (Morphine Sulfate 2 Mg/Ml Cartridge) 2 mg IVPUSH Q3H PRN; Protocol PRN Reason: Pain, Severe (Pain Scale 7-10) Last Admin: 05/20/25 04:14 Dose: 2 mg Documented By: JUSTIN Naloxone HCl (Naloxone Hcl 0.4 Mg/Ml Vial) 0.04 mg IVPUSH Q5M PRN PRN Reason: Excessive sedation or RR < 8 Oxycodone HCl (Oxycodone Hcl Immed Release 5 Mg Tablet) 5 mg PO Q4H PRN PRN Reason: Pain, Moderate(Pain Scale 4-6) Last Admin: 05/21/25 01:08 Dose: 5 mg Documented By: JUANITA Pantoprazole Sodium (Pantoprazole Sodium 40 Mg/10 Ml Vial) 40 mg IVPUSH BID@0630,1630 [facility] Last Admin: 05/21/25 05:30 Dose: 40 mg Documented By: JUANITA Sodium Biphosphate/Sodium Phosphate (Sodium Phosphate,[place]-Dibasic 133 Ml Enema) 133 ml IN ONCE PRN PRN Reason: Consult order Last Admin: 05/20/25 10:53 Dose: 133 ml Documented By: BELINDA Sodium Chloride (0.9 % Sodium Chloride Flush 3 Ml Syringe) 3 ml IVFLUSH QSHIFT [facility] Last Admin: 05/21/25 08:51 Dose: 3 ml Documented By: RICCIAV Labs 05/21/25 06:09 05/21/25 06:09 Labs: Laboratory Results - last 24 hr 05/18/25 05/20/25 05/21/25 15:30 12:34 06:09 MCV 83.0 MCH 26.2 L MCHC 31.6 RDW 18.0 H Plt Count 89 L MPV 10.2 Absolute Nucleated RBC 0.000 Nucleated RBC % (auto) 0.0 Anion Gap 16 Estim Creat Clear Calc 17.6 Estimated GFR 16 POC Glucose 102 Random Glucose 123 H Calcium 8.4 Magnesium 2.2 NT-Pro-B Natriuret Pep 68227.3 H Crossmatch See Detail Assessment and Plan (1) Acute CHF: Status: Acute Plan d4, 74yo M with HFrEF, AF on apixaban, DM2, HTN, HLD, CAD, hyperPTH presenting with bilateral leg swelling and pain, blood in the stool admitted for acute/chronic HFrEF, leg wound infection, GI bleed acute/chronic anemia due to GI bleed - transfused 2u pRBCs with appropriate response in H+H - EGD + sigmoidoscopy done today by Dr Fernandez- showed gastritis, duodenitis, esophagitis; old biliary stent removed; 1 sessile polyp in rectum; internal hemorrhoids - IV-> PO PPI, sucralfate x14d; resume apixaban today and ocntinue to monitor H+H acute/chronic HFrEF - continue IV bumetanide but increase dose from 1 mg qd to 2 mg bid, PO metolazone, monitor I/O, BMP, BNP, Mg, weights - stop carvedilol due to bradycardia - started hydralazine + Isordil to replace amlodipine - Cardiology following - TTE 05/18/25: - Normal left ventricular cavity size. There is mildly increased left ventricular wall thickness. The left ventricular systolic function is mildly decreased. The visually estimated ejection fraction is between 40-45%. - The basal inferoseptal segment is hypokinetic. - Mildly increased right ventricular cavity size. There is moderately decreased right ventricular systolic function. - The left atrium is severely dilated. The right atrium is severely dilated. - Severe pulmonary hypertension is present. - There is a small pericardial effusion chronic AF now with slow rate - d/c carvedilol; slow rate possibly due to outpt noncompliance - resume apixaban today bilateral venous stasis ulcers with concern for infection - changed ceftriaxone to linezolid + renally-dosed piperacillin-tazobactam 05/19- - Wound Care consulted: Bilateral legs - cleanse with saline, apply durafiber ag, cover with ABD pads, hold in place with rolled gauze or stretch netting, change every other day and PRN Buttock - Off Load Pressure with Q2 hr turns and use of pillows - Cleanse with PH balance spray or wipes, pat dry. ?Apply thin layer of barrier cream to affected area.? Apply twice daily and Reapply thin layer PRN after each episode of incontinence. KELSEY/CKD3b - Nephrology consulted, following- ?cardiorenal; monitor SCr daily with diuresis - continue calcitriol CAD/HLD: statin VTE ppx: apixaban dispo: PT eval In my clinical judgment, the patient requires continued inpatient hospitalization for the following reasons: IV diuresis, IV ABX Total time managing care of this patient today: 50 minutes. Quality Stroke Does the patient have a stroke diagnosis?: No VTE Prior VTE?: No VTE Risk Level:: Medical - moderate - high VTE Device Contraindication: Treatment Not Indicated VTE Drug Contraindication: N/A - Med Ordered
--- NOTE | 2025-05-21 10:53 | PM.PNCARD ---
Subjective Subjective Date of Service: 05/21/25 Principal diagnosis: CHF, chronic AFib. Interval history: Patient stated developed low blood pressure and low heart rate. Patient has been started on carvedilol assuming that he is taking carvedilol at home. Probably not taking any rate lowering medications at home. Has not diuresed well and creatinine has gone up. BNP still remains elevated. Appears clinically short of breath. Anemia has improved, underwent GI procedure yesterday without any active source of bleeding. Recommended to restart on Eliquis therapy. Review of Systems Constitutional: Reports weakness Cardiovascular: Denies chest pain, Reports leg edema, Denies lightheadedness, Denies Loss of Consciousness, Denies palpitations and Reports dyspnea Respiratory: Reports no additional respiratory complaints and Reports dyspnea Genitourinary: Reports no additional male genitourinary complaints Musculoskeletal: Reports no additional musculoskeletal complaints Reports weakness Endocrine: Denies palpitations Physical Exam Vital Signs: Last Vital Signs Temp 98.2 F 05/21/25 07:57 Pulse 42 L 05/21/25 08:41 Resp 18 05/21/25 07:57 BP 119/56 L 05/21/25 07:57 Pulse Ox 91 L 05/21/25 07:57 O2 Del Method Room Air 05/21/25 07:57 O2 Flow Rate 2 05/20/25 15:45 BMI result Body Mass Index 25.3 Const General: alert, awake, in distress mild and respiratory and combative Nutritional Appearance: overweight Orientation/consciousness: patient oriented x3 HEENT Head: Yes normocephalic and Yes atraumatic Neck Neck: Yes trachea midline, Yes supple and Yes JVD Resp Effort & Inspection: decreased respiratory effort Auscultation: diminished lung sounds Cardio Jugular venous distension: JVD Rate: bradycardic Rhythm: abnormal rhythm irregularly irregular Heart sounds: S1 normal heart sound present, S2 normal heart sound present, no click and no gallops GI Auscultation: normal bowel sounds Skin General skin exam: no rashes or lesions noted and ecchymosis Neuro General: patient oriented x3 and no focal motor deficits Extrem General: No clubbing, No cyanosis and Yes edema Objective Labs and Meds 05/21/25 06:09 05/21/25 06:09 Lab results: Laboratory Results - last 24 hr 10/06/25 10/08/25 10/08/25 15:30 06:21 12:34 WBC RBC Hgb Hct MCV MCH MCHC RDW Plt Count MPV Absolute Nucleated RBC Nucleated RBC % (auto) Sodium Potassium Chloride Carbon Dioxide Anion Gap BUN Creatinine Estim Creat Clear Calc Estimated GFR POC Glucose 102 Random Glucose Calcium Magnesium NT-Pro-B Natriuret Pep Complement C4 24 Crossmatch See Detail 05/21/25 06:09 WBC 3.8 L RBC 3.17 L Hgb 8.3 L Hct 26.3 L MCV 83.0 MCH 26.2 L MCHC 31.6 RDW 18.0 H Plt Count 89 L MPV 10.2 Absolute Nucleated RBC 0.000 Nucleated RBC % (auto) 0.0 Sodium 134 L Potassium 4.7 Chloride 102 Carbon Dioxide 21 L Anion Gap 16 BUN 145 H Creatinine 3.79 H Estim Creat Clear Calc 17.6 Estimated GFR 16 POC Glucose Random Glucose 123 H Calcium 8.4 Magnesium 2.2 NT-Pro-B Natriuret Pep 66930.3 H Complement C4 Crossmatch Progress Note: A&P Assessment and plan (1) Acute CHF: Status: Acute Assessment and Plan: Acute congestive heart failure probably contributed by noncompliance as well as anemia. In his setting of chronic atrial fibrillation. Overall prognosis guarded with multiple comorbidities. Continue diuresis enhance diuresis. Strict intake and output chart needs to be pursued. Continue maintain hematocrit over 30. Management was discussed with him. Currently hold off all medications given his low blood pressure except hydralazine Isordil which she is tolerating. (2) Chronic atrial fibrillation: Status: Acute Assessment and Plan: Chronic atrial fibrillation now with bradycardia most likely he was not taking carvedilol therapy at home and restarted carvedilol therapy in the hospital. Hold carvedilol therapy. Has undergone GI workup without any overt source of bleeding. Has been advised to restart Eliquis. Should consider Watchman device as outpatient. Will continue to follow with you Time Spent With Patient Time: Total time managing care of this patient today ____ minutes. Progress Note: Quality Stroke Does the patient have a stroke diagnosis?: No Procedures Date of Service Date of Service: 05/21/25
--- NOTE | 2025-05-21 10:57 | HO.POSTANES ---
Post Anesthesia Evaluation Post Anesthesia Evaluation Date of Service: 05/21/25 Vital Signs: Vital Signs Temp Pulse Resp BP Pulse Ox O2 Del Method 05/21/25 08:41 42 L 05/21/25 07:57 98.2 F 44 L 18 119/56 L 91 L Room Air 05/21/25 04:00 97.4 F 71 18 119/56 L 94 Room Air 05/20/25 23:41 97.4 F 53 18 105/54 L 92 Room Air Anesthesia: General Mental Status: Awake Pain Control: Satisfactory Nausea/Vomiting: None Hydration: Adequate Anesthesia-Related Issues: No Anes. Related Issues
--- NOTE | 2025-05-21 12:50 | P.CDIM_ITS ---
PROVIDER RESPONSE TEXT: To clarify, the appropriate diagnosis supported by the clinical indicators: Acute blood loss anemia QUERY TEXT: PHYSICIAN'S DOCUMENTATION REQUEST Date of Query: 05/20/2025 07:05 AM EDT Patient Name: Ethan Cristina Admit Date: 05/18/2025 Dear Austyn Wilson MD, A review of the medical record indicates additional documentation may be needed. Please review below and update the documentation accordingly. Clinical Indicators: Progress note 05/19/25 - Acute/chronic anemia due to GI bleed. IV PPI, Transfused 1 unit PRBC's with appropriate response. H/H 6.9/22.6 Based on the above, could you clarify which of the following is the most likely type of anemia you are evaluating, treating, and/or monitoring? Acute blood loss anemia Anemia of chronic disease indicate if neoplastic disease, CKD, or other Chronic iron deficiency anemia due to blood loss Other (explain) Clinically unable to determine (explain) Thank you, Debra Moreland, CCS, CDIS Use of terms such as suspected, likely, concern for, or probable (associated with a specific diagnosis that is being evaluated, monitored, or treated as if it exists) are acceptable and can be coded in the inpatient setting, when documented at the time of discharge. Please use your independent medical judgment in providing your response. THIS QUERY IS PART OF THE PERMANENT MEDICAL RECORD
--- NOTE | 2025-05-21 16:02 | P.PNNP_ITS ---
Subjective Subjective Date of Service: 05/21/25 Principal diagnosis: CHF, chronic AFib. Interval history: Events noted. Still has edema Nonoliguric Physical Exam 2 Vital Signs: Vital Signs: Last Vital Signs Temp 97.3 F 05/21/25 15:20 Pulse 43 L 05/21/25 15:20 Resp 18 05/21/25 15:20 BP 114/54 L 05/21/25 15:20 Pulse Ox 94 05/21/25 15:20 O2 Del Method Room Air 05/21/25 15:20 O2 Flow Rate 2 05/20/25 15:45 BMI result Body Mass Index 25.3 Comfortable Neck supple no JVD. Lungs entry equal no rales. Heart S1-S2 heard no gallop or rub. Abdomen soft nontender. Neuro alert awake oriented. No asterixis. Extremities edema present Objective Data Labs 05/21/25 06:09 05/21/25 06:09 Labs: Laboratory Results - last 24 hr 05/20/25 05/21/25 06:21 06:09 WBC 3.8 L RBC 3.17 L Hgb 8.3 L Hct 26.3 L MCV 83.0 MCH 26.2 L MCHC 31.6 RDW 18.0 H Plt Count 89 L MPV 10.2 Absolute Nucleated RBC 0.000 Nucleated RBC % (auto) 0.0 Sodium 134 L Potassium 4.7 Chloride 102 Carbon Dioxide 21 L Anion Gap 16 BUN 145 H Creatinine 3.79 H Estim Creat Clear Calc 17.6 Estimated GFR 16 Random Glucose 123 H Calcium 8.4 Magnesium 2.2 NT-Pro-B Natriuret Pep 21373.3 H Complement C4 24 Procedures Date of Service Date of Service: 05/21/25 Assessment & Plan Assessment and plan (1) CKD stage 3b, GFR 30-44 ml/min: Status: Acute (2) Acute on chronic kidney failure: Status: Acute Plan KELSEY superimposed on CKD. Cardiorenal syndrome. Has significant fluid overload. Currently on Bumex. Keep output more than intake. Might need Bumex drip to facilitate diuresis. Has significant anemia and platelet is trending down. Check LDH and haptoglobin along with schistocytes. No indication for dialysis yet. Concur with other medical management including antibiotics Time Spent With Patient Time: Total time managing care of this patient today ____ minutes. Progress Note: Quality Stroke Does the patient have a stroke diagnosis?: No
[2025-05-21 21:13] LABS: Anti Glomerular Basement Memb <1.0 AI; Proteinase 3 PR3 Antibodies <1.0 AI
--- NOTE | 2025-05-21 22:21 | ECG_ITS ---
Test Reason : CP Blood Pressure : */* mmHG Vent. Rate : 34 BPM Atrial Rate : * BPM P-R Int : * ms QRS Dur : 102 ms QT Int : 616 ms P-R-T Axes : * 51 -82 degrees QTcB Int : 463 ms Atrial fibrillation with slow ventricular response Low voltage QRS ST & T wave abnormality, consider lateral ischemia Abnormal ECG When compared with ECG of 18-May-2025 19:15, Vent. rate has decreased by 23 bpm Nonspecific T wave abnormality now evident in Anterior leads Referred By: Austyn Wilson Electronically Signed By: NICOLA DIALLO MD
[2025-05-21 23:06] LABS: Troponin-I High Sensitivity 23.4 ng/L (<3.5-35.0)
[2025-05-22] VITALS (12 sets, daily range): BP systolic 88–117; BP diastolic 40–68; PULSE 42–50; RESP 17–20; TEMP 32.4–36.4; O2SAT 91–95
[2025-05-22 01:18] LABS: Troponin-I High Sensitivity 23.6 ng/L (<3.5-35.0)
[2025-05-22] MEDS: Linezolid/D5W 600 MG/300 ML PIGGYBACK 300 MG IV (05:00)
[2025-05-22 07:11] LABS: Hematocrit 27.1 % (42.0-52.0); Hemoglobin 8.3 g/dl (14.0-18.0); Mean Corpuscular HGB Conc 30.6 g/dl (31.0-36.0); Mean Corpuscular Hemoglobin 25.4 pg (27.0-33.0); Mean Corpuscular Volume 82.9 fL (80.0-98.0); NRBC Abs Auto 0.020 X10*3/uL (0.0-0.012); NRBC Pct Auto 0.8 /100WBC (0.0-0.2); Red Blood Count 3.27 X10*6/uL (4.60-5.80); White Blood Count 2.6 X10*3/uL (4.8-10.8)
[2025-05-22 07:14] LABS: Platelet Count 79 X10*3/uL (160-400)
[2025-05-22 07:34] LABS: NT Pro B Type Natriuretic Pept 10919.3 pg/mL (<300)
[2025-05-22 07:36] LABS: Anion Gap 16 (12-20); Calcium 8.0 mg/dL (8.4-10.2); Carbon Dioxide 19 mmol/L (22-29); Chloride 102 mmol/L (96-108); Creatinine Clr Calc Pharmacy 16.5; Estimated Glomerular Filt Rate 15; Magnesium 2.2 mg/dL (1.6-2.6); Potassium 4.5 mmol/L (3.3-5.1); Sodium 132 mmol/L (135-145)
[2025-05-22 07:40] LABS: Blood Urea Nitrogen 127 mg/dL (9-16)
[2025-05-22 08:05] LABS: Reticulocytes Absolute 0.044 X10*6/uL (0.026-0.095)
[2025-05-22] MEDS: 0.9 % Sodium Chloride Flush 3 ML SYRINGE IVFLUSH ×3 (08:40→19:56)
--- NOTE | 2025-05-22 08:42 | HE.PHANOTE ---
PER IV TO PO POLICY LINEZOLID CHANGED FROM IV TO PO PER POLICY. NEXT DOSE 1800 05/22
[2025-05-22 08:54] LABS: Alanine Aminotransferase 18 U/L (0-40); Albumin Level 2.8 g/dL (3.5-5.0); Alkaline Phosphatase 110 U/L (39-117); Aspartate Amino Transferase 37 U/L (5-37); Total Protein 6.4 g/dL (6.5-8.0)
--- NOTE | 2025-05-22 09:02 | PC.NURSE ---
Addendum entered by Cristiane Griggs RN 05/22/25 17:56: pt refusing bumex gtt, yelling i dont want it! . pt stated he would take ABX. educated pt on need for bumex gtt for fluid overload, pt not comprehending and focusing on needing floss for his teeth. provider notified. no new orders at this time Addendum entered by Cristiane Griggs RN 05/22/25 14:40: attempted to place pt back on isaura hugger. pt yelling, stating i dont want it i dont need it . attempted to educate pt again with no success Addendum entered by Cristiane Griggs RN 05/22/25 12:53: isaura hugger removed at 1020 d/t pt being non-compliant and refusing. This RN attempted to educate pt regarding critically low temperatures, pt began yelling at staff stated he needed help but was vague regarding complaints, attempting to get out of bed, unable to redirect. telesitter placed in room. pt stated BLE are itching and to remove dressings. This RN attempted to educate pt on importance of preventing further infection in BLE, pt stated i dont care, take them off! pt needing frequent reminders and unable to redirect. pt removed dressings from BLE, refusing to let this RN redress at this time. provider made aware, see new orders, medicated per OCT. pt broght down to CT by this RN and batch roller operator garza cath ordered per dr. ford, pt refusing at this time. provider made aware. Original Note: pts rectal temp 91.7. 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 pt denies any symptoms at this time, states i feel good . Dr. mccollum notified and came to bedside. held meds per provider, per OCT. see new orders.
--- NOTE | 2025-05-22 10:42 | HO.SKINPHOTO ---
Location: [facility] Location: [facility]
--- NOTE | 2025-05-22 11:08 | P.PNNP_ITS ---
Subjective Subjective Date of Service: 05/22/25 Principal diagnosis: CHF, chronic AFib. Interval history: Creatinine uptrending, unclear urine output as he urinated twice outside that was not measured. Currently on bumex pushes along with metolazone. Still edematous. Physical Exam 2 Vital Signs: Vital Signs: Last Vital Signs Temp 93.1 F L 05/22/25 09:36 Pulse 49 L 05/22/25 07:20 Resp 17 05/22/25 07:20 BP 88/40 L 05/22/25 10:38 Pulse Ox 95 05/22/25 07:20 O2 Del Method Room Air 05/22/25 07:20 O2 Flow Rate 2 05/20/25 15:45 BMI result Body Mass Index 25.3 General: not in any acute distress, ill appearing Nutritional Appearance: well nourished and overweight Eyes: appearance normal, both eyes and all related structures; Alignment and Position: alignment normal and position normal Neck: No lymphadenopathy, no thyromegaly Resp: bilateral air entry equal, no added sounds present Cardio: Regular rate, regular rhythm; Heart sounds: S1 normal heart sound present and S2 normal heart sound present, ++ edema. GI: soft, nontender, no guarding, no hepatosplenomegaly : bladder normal to inspection, bladder normal to palpation, no renal angle tenderness Skin: no rashes or lesions noted and elasticity normal Neuro: alert, oriented x 3, moves all extremities Objective Data Labs 05/22/25 06:50 05/22/25 06:50 Labs: Laboratory Results - last 24 hr 05/20/25 05/21/25 05/22/25 06:21 22:37 00:54 WBC RBC Hgb Hct MCV MCH MCHC RDW Plt Count MPV Absolute Nucleated RBC Nucleated RBC % (auto) Smear Path Review Absolute Retic Percent Retic Immature Retic Fraction Retic Hgb Equivalent Hold Purple Top SEE NOTE Sodium Potassium Chloride Carbon Dioxide Anion Gap BUN Creatinine Estim Creat Clear Calc Estimated GFR Random Glucose Haptoglobin Calcium Magnesium Total Bilirubin Direct Bilirubin AST ALT Alkaline Phosphatase Lactate Dehydrogenase Troponin I High Sens 23.4 23.6 NT-Pro-B Natriuret Pep Total Protein Albumin TSH 6.32 H Proteinase 3 (PR3) Ab <1.0 Myeloperoxidase Ab <1.0 Glomerular Base Memb Ab <1.0 05/22/25 05/22/25 06:50 09:23 WBC 2.6 L RBC 3.27 L Hgb 8.3 L Hct 27.1 L MCV 82.9 MCH 25.4 L MCHC 30.6 L RDW 17.9 H Plt Count 79 L MPV 10.7 Absolute Nucleated RBC 0.020 H Nucleated RBC % (auto) 0.8 H Smear Path Review SEE NOTE Absolute Retic 0.044 Percent Retic 1.4 Immature Retic Fraction 20.2 H Retic Hgb Equivalent 19.7 L Hold Purple Top SEE NOTE Sodium 132 L Potassium 4.5 Chloride 102 Carbon Dioxide 19 L Anion Gap 16 BUN 127 H Creatinine 4.04 H* Estim Creat Clear Calc 16.5 Estimated GFR 15 Random Glucose 102 Haptoglobin 72 Calcium 8.0 L Magnesium 2.2 Total Bilirubin 1.0 Direct Bilirubin 0.5 AST 37 ALT 18 Alkaline Phosphatase 110 Lactate Dehydrogenase 220 Troponin I High Sens NT-Pro-B Natriuret Pep 48491.3 H Total Protein 6.4 L Albumin 2.8 L TSH Proteinase 3 (PR3) Ab Myeloperoxidase Ab Glomerular Base Memb Ab Procedures Date of Service Date of Service: 05/22/25 Assessment & Plan Assessment and plan (1) Cardiorenal syndrome: Status: Acute (2) Congestive heart failure: Status: Acute Plan Acute kidney injury: Secondary to cardiorenal syndrome, recent TTE showing EF 40-45% with severe pulmonary hypertension, has significant edema and BNP is 11k. blood pressures soft, primary team giving albumin. possibly increased end diastolic volume is decreasing the cardiac output would improve with some volume removal. Might benefit from adding midodrine 10mg TID to allow for diuretic tolerance. Can change from Bumex pushes to a continuos bumex drip along with metolazone. If he has no response to diuretic drip will consider ultrafiltration but would need vasopressor support for that (currently ICU is full). We will give a trial of good dose of diuresis. Urine output not measured accurately, in view of raising creatinine recommending placing a Roblero catheter. Will get urinalysis and urine eosniophils. No proteinuria. Will renal US to rule out obstruction. Time Spent With Patient Time: Total time managing care of this patient today ____ minutes. Progress Note: Quality Stroke Does the patient have a stroke diagnosis?: No
[2025-05-22] MEDS: Albumin Human 25 % 50 ML 100 ML IV ×4 (11:27→13:44)
[2025-05-22 11:33] LABS: Free T4 (Free Thyroxine) 0.81 ng/dL (0.71-1.85)
--- NOTE | 2025-05-22 11:43 | PM.PNCARD ---
Subjective Subjective Date of Service: 05/22/25 Principal diagnosis: CHF, chronic AFib. Interval history: Patient noted to be hypothermic overnight. Remains bradycardic with salt blood pressure. His diuretic has been withheld. His carvedilol was discontinued yesterday. He has hydralazine and Isordil has been stopped today. Patient says he feels well. He is mentating okay. He has not had any lightheadedness. Denies any shortness of breath. Heart rate remained on the slower side. Creatinine is increased Review of Systems Constitutional: Reports no additional constitutional complaints Eyes: Reports no additional eye complaints Cardiovascular: Denies chest pain, Denies leg edema, Denies Loss of Consciousness, Denies palpitations and Denies dyspnea Respiratory: Reports no additional respiratory complaints and Denies dyspnea Endocrine: Denies palpitations Physical Exam Vital Signs: Last Vital Signs Temp 93.1 F L 05/22/25 09:36 Pulse 49 L 05/22/25 07:20 Resp 17 05/22/25 07:20 BP 88/40 L 05/22/25 10:38 Pulse Ox 95 05/22/25 07:20 O2 Del Method Room Air 05/22/25 07:20 O2 Flow Rate 2 05/20/25 15:45 BMI result Body Mass Index 25.3 Const General: cooperative, no acute distress, alert and awake Nutritional Appearance: average body habitus Orientation/consciousness: patient oriented x3 Neck Neck: Yes trachea midline and Yes supple Resp Effort & Inspection: decreased respiratory effort Auscultation: no rales and no wheezes Cardio Rate: bradycardic Rhythm: abnormal rhythm irregularly irregular Heart sounds: S1 normal heart sound present, S2 normal heart sound present, no click and no gallops GI Auscultation: normal bowel sounds Skin General skin exam: no rashes or lesions noted Neuro General: patient oriented x3 and no focal motor deficits Extrem General: No clubbing, No cyanosis and Yes edema Objective Labs and Meds 05/22/25 06:50 05/22/25 06:50 Lab results: Laboratory Results - last 24 hr 05/20/25 05/21/25 05/22/25 06:21 22:37 00:54 WBC RBC Hgb Hct MCV MCH MCHC RDW Plt Count MPV Absolute Nucleated RBC Nucleated RBC % (auto) Smear Path Review Absolute Retic Percent Retic Immature Retic Fraction Retic Hgb Equivalent Hold Purple Top SEE NOTE Sodium Potassium Chloride Carbon Dioxide Anion Gap BUN Creatinine Estim Creat Clear Calc Estimated GFR Random Glucose Haptoglobin Calcium Magnesium Total Bilirubin Direct Bilirubin AST ALT Alkaline Phosphatase Lactate Dehydrogenase Troponin I High Sens 23.4 23.6 NT-Pro-B Natriuret Pep Total Protein Albumin TSH 6.32 H Free T4 0.81 Random Cortisol Proteinase 3 (PR3) Ab <1.0 Myeloperoxidase Ab <1.0 Glomerular Base Memb Ab <1.0 05/22/25 05/22/25 05/22/25 06:50 09:19 09:23 WBC 2.6 L RBC 3.27 L Hgb 8.3 L Hct 27.1 L MCV 82.9 MCH 25.4 L MCHC 30.6 L RDW 17.9 H Plt Count 79 L MPV 10.7 Absolute Nucleated RBC 0.020 H Nucleated RBC % (auto) 0.8 H Smear Path Review SEE NOTE Absolute Retic 0.044 Percent Retic 1.4 Immature Retic Fraction 20.2 H Retic Hgb Equivalent 19.7 L Hold Purple Top SEE NOTE Sodium 132 L Potassium 4.5 Chloride 102 Carbon Dioxide 19 L Anion Gap 16 BUN 127 H Creatinine 4.04 H* Estim Creat Clear Calc 16.5 Estimated GFR 15 Random Glucose 102 Haptoglobin 72 Calcium 8.0 L Magnesium 2.2 Total Bilirubin 1.0 Direct Bilirubin 0.5 AST 37 ALT 18 Alkaline Phosphatase 110 Lactate Dehydrogenase 220 Troponin I High Sens NT-Pro-B Natriuret Pep 34987.3 H Total Protein 6.4 L Albumin 2.8 L TSH Free T4 Random Cortisol 8.0 Proteinase 3 (PR3) Ab Myeloperoxidase Ab Glomerular Base Memb Ab Progress Note: A&P Assessment and plan (1) Hypothermia: Status: Acute Assessment and Plan: Hypothermia in this elderly gentleman of unclear etiology question related to metabolic issues versus cardiac given his overall reduced cardiac output as well as severe pulmonary hypertension with superimposed low heart rate and low blood pressure. Agree with holding all his medications. Clinically appears to be mentating well with no obvious respiratory distress. Continue close monitoring. Avoid any vasodilators or rate lowering medications at this point time. Continue monitor renal function. Agree with gentle rewarming. Overall prognosis remains guarded. (2) Congestive heart failure: Status: Acute Assessment and Plan: Patient with previous heart failure with [id number] LV systolic dysfunction with clinically appears to have more reduce stroke volume and cardiac output overall probably related to initiation of cardiac medications with low blood pressure and low heart rate. Most likely suggest that patient was not taking any medications as outpatient. Hold all medications. Continue monitor clinically. (3) Chronic atrial fibrillation: Status: Acute Assessment and Plan: Chronic atrial fibrillation with over corrected rate most likely due to initiation of carvedilol therapy which she was most lot likely taking at home. Continue to hold carvedilol therapy. Continue to oral anticoagulated. Monitor renal function. Will follow with you Time Spent With Patient Time: Total time managing care of this patient today ____ minutes. Progress Note: Quality Stroke Does the patient have a stroke diagnosis?: No Procedures Date of Service Date of Service: 05/22/25
--- NOTE | 2025-05-22 14:02 | MHC.CM.PN ---
Per rounds, pt is not ready to DC, he will have a head scan today and is still requiring dieresis.
--- NOTE | 2025-05-22 14:42 | HO.PM.IMPN ---
Subjective Subjective Date of Service: 05/22/25 Interval History: hypothermic but threw off Raoul Moreno c/o leg wound pain/itching no dyspnea or chest pain BP low This history was taken in Lithuanian from the patient. Review of Systems Review of Systems: Yes all other systems are reviewed and are negative Physical Exam Vital Signs: Vital Signs: Last Vital Signs Temp 93.4 F L 05/22/25 11:45 Pulse 46 L 05/22/25 11:45 Resp 18 05/22/25 11:45 BP 98/42 L 05/22/25 14:35 Pulse Ox 93 05/22/25 11:45 O2 Del Method Room Air 05/22/25 11:45 O2 Flow Rate 2 05/20/25 15:45 BMI result Body Mass Index 25.3 Gen: in no acute distress HEENT: sclera anicteric, moist mucus membranes Neck: supple Lungs: diminished Heart: irregular, slow, no murmurs Abd: soft, non-tender, non-distended Ext: 1+ bilateral leg edema Skin: warm/well-perfused, bilateral venous stasis ulcers with bright-red erythema Neuro: alert and oriented x3, no focal findings Psych: normal affect Objective Data Active Medications Acetaminophen (Acetaminophen 325 Mg Tablet) 650 mg PO Q6H PRN PRN Reason: Pain, Mild 1-3,fever,headache Last Admin: 05/22/25 06:51 Dose: 650 mg Documented By: JUANITA Apixaban (Apixaban 2.5 Mg Tablet) 2.5 mg PO BID [facility] Last Admin: 05/22/25 08:35 Dose: 2.5 mg Documented By: NATHAN Atorvastatin Calcium (Atorvastatin Calcium 40 Mg Tablet) 40 mg PO DAILY [facility] Last Admin: 05/22/25 08:35 Dose: 40 mg Documented By: NATHAN Bumetanide (Bumetanide 1 Mg/4 Ml Vial) 2 mg IVPUSH BID@0900,1700 [facility]; Protocol Last Admin: 05/22/25 08:31 Dose: Not Given Documented By: NATHAN Non-Admin Reason: Physician Held Med Calcitriol (Calcitriol 0.25 Mcg Capsule) 0.25 mcg PO Q48H [facility] Last Admin: 05/21/25 08:50 Dose: 0.25 mcg Documented By: NATHAN Calcium Carbonate (Calcium Carbonate 750 Mg Tab.Chew) 750 mg PO Q4H PRN PRN Reason: Heartburn Piperacillin Sod/Tazobactam (Sod 2.25 gm/ Sodium Chloride) 50 mls @ 100 mls/hr IV Q6H [facility] Last Infusion: 05/22/25 11:31 Dose: Infused Documented By: NATHAN Clindamycin Phosphate (Cleocin) 600 mg in 50 mls @ 100 mls/hr IV Q8H [facility] Last Infusion: 05/22/25 12:26 Dose: Infused Documented By: NATHAN Linezolid (Linezolid 600 Mg Tablet) 600 mg PO Q12H [facility] Magnesium Hydroxide (Milk Of Magnesia 30 Ml Oral.Susp) 30 ml PO DAILY PRN PRN Reason: Constipation Melatonin (Melatonin 3 Mg Tablet) 6 mg PO BEDTIME PRN PRN Reason: Insomnia Last Admin: 05/21/25 21:05 Dose: 6 mg Documented By: JUANITA Metolazone (Metolazone 2.5 Mg Tablet) 2.5 mg PO MOWEFR [facility] Last Admin: 05/22/25 11:34 Dose: Not Given Documented By: NATHAN Non-Admin Reason: Physician Approved Midodrine (Midodrine Hcl 10 Mg Tablet) 10 mg PO TIDWM [facility] Last Admin: 05/22/25 12:01 Dose: 10 mg Documented By: NATHAN Morphine Sulfate (Morphine Sulfate 2 Mg/Ml Cartridge) 2 mg IVPUSH Q3H PRN; Protocol PRN Reason: Pain, Severe (Pain Scale 7-10) Last Admin: 05/20/25 04:14 Dose: 2 mg Documented By: JUSTIN Naloxone HCl (Naloxone Hcl 0.4 Mg/Ml Vial) 0.04 mg IVPUSH Q5M PRN PRN Reason: Excessive sedation or RR < 8 Omeprazole (Omeprazole 20 Mg Capsule.) 20 mg PO BID@0630,1630 [facility] Last Admin: 05/22/25 04:59 Dose: 20 mg Documented By: JUANITA Oxycodone HCl (Oxycodone Hcl Immed Release 5 Mg Tablet) 5 mg PO Q4H PRN PRN Reason: Pain, Moderate(Pain Scale 4-6) Last Admin: 05/21/25 21:06 Dose: 5 mg Documented By: JUANITA Sodium Biphosphate/Sodium Phosphate (Sodium Phosphate,Ransom-Dibasic 133 Ml Enema) 133 ml WI ONCE PRN PRN Reason: Consult order Last Admin: 05/20/25 10:53 Dose: 133 ml Documented By: BELINDA Sodium Chloride (0.9 % Sodium Chloride Flush 3 Ml Syringe) 3 ml IVFLUSH QSHIFT [facility] Last Admin: 05/22/25 08:40 Dose: 3 ml Documented By: RICCIAV Sucralfate (Sucralfate 1 Gm Tablet) 1 gm PO BIDAC [facility] Last Admin: 05/22/25 06:51 Dose: 1 gm Documented By: JUANITA Labs 05/22/25 06:50 05/22/25 06:50 Labs: Laboratory Results - last 24 hr 05/20/25 05/21/25 05/22/25 06:21 22:37 00:54 MCV MCH MCHC RDW Plt Count MPV Absolute Nucleated RBC Nucleated RBC % (auto) Smear Path Review Absolute Retic Percent Retic Immature Retic Fraction Retic Hgb Equivalent Hold Purple Top SEE NOTE Anion Gap Estim Creat Clear Calc Estimated GFR Random Glucose Haptoglobin Calcium Magnesium Total Bilirubin Direct Bilirubin AST ALT Alkaline Phosphatase Lactate Dehydrogenase Troponin I High Sens 23.4 23.6 NT-Pro-B Natriuret Pep Total Protein Albumin TSH 6.32 H Free T4 0.81 Random Cortisol Proteinase 3 (PR3) Ab <1.0 Myeloperoxidase Ab <1.0 Glomerular Base Memb Ab <1.0 05/22/25 05/22/25 05/22/25 06:50 09:19 09:23 MCV 82.9 MCH 25.4 L MCHC 30.6 L RDW 17.9 H Plt Count 79 L MPV 10.7 Absolute Nucleated RBC 0.020 H Nucleated RBC % (auto) 0.8 H Smear Path Review SEE NOTE Absolute Retic 0.044 Percent Retic 1.4 Immature Retic Fraction 20.2 H Retic Hgb Equivalent 19.7 L Hold Purple Top SEE NOTE Anion Gap 16 Estim Creat Clear Calc 16.5 Estimated GFR 15 Random Glucose 102 Haptoglobin 72 Calcium 8.0 L Magnesium 2.2 Total Bilirubin 1.0 Direct Bilirubin 0.5 AST 37 ALT 18 Alkaline Phosphatase 110 Lactate Dehydrogenase 220 Troponin I High Sens NT-Pro-B Natriuret Pep 40618.3 H Total Protein 6.4 L Albumin 2.8 L TSH Free T4 Random Cortisol 8.0 Proteinase 3 (PR3) Ab Myeloperoxidase Ab Glomerular Base Memb Ab Impressions Head CT 05/22/25 12:12 IMPRESSION: Limited examination due to streak artifact from aneurysm clips. No definite evidence of intracranial hemorrhage. Electronically signed by: Cornelio Flores MD 05/22/2025 12:43 PM EDT RP Assessment and Plan (1) Acute CHF: Status: Acute Plan d5, 74yo M with HFrEF, AF on apixaban, DM2, HTN, HLD, CAD, hyperPTH presenting with bilateral leg swelling and pain, blood in the stool admitted for acute/chronic HFrEF, leg wound infection, GI bleed now hypothermic and pancytopenic hypothermia - unclear cause; pt has been on broad-spectrum antibiotics since 05/19; will check lactate + BCx; random cortisol normal; TSH slightly high but free T4 normal; continue Raoul Hugger pancytopenia - suspect due to infection; question of cirrhosis on prior CT chest but no varices on EGD; will check B12, LATISHA, HIV; medication effect? acute/chronic anemia due to GI bleed - transfused 2u pRBCs with appropriate response in H+H - EGD + sigmoidoscopy done 05/[address] Fernandez- showed gastritis, duodenitis, esophagitis; old biliary stent removed; 1 sessile polyp in rectum; internal hemorrhoids - IV-> PO PPI, sucralfate x14d; resumed apixaban 05/21 and will continue to monitor CBC acute/chronic HFrEF hypotension - bumetanide on hold due to hypotension but if BP improves will start infusion per Nephrology; hold metolazone due to hypotension; monitor I/O, BMP, BNP, Mg, weights - stopped carvedilol due to bradycardia - started hydralazine + Isordil to replace amlodipine; stopped due to hypotension, suggesting pt was not compliant with meds as outpt - will start midodrine and also give 50g albumin today - Cardiology following - TTE 05/18/25: - Normal left ventricular cavity size. There is mildly increased left ventricular wall thickness. The left ventricular systolic function is mildly decreased. The visually estimated ejection fraction is between 40-45%. - The basal inferoseptal segment is hypokinetic. - Mildly increased right ventricular cavity size. There is moderately decreased right ventricular systolic function. - The left atrium is severely dilated. The right atrium is severely dilated. - Severe pulmonary hypertension is present. - There is a small pericardial effusion chronic AF now with slow rate - d/c'ed carvedilol, resumed apixaban bilateral venous stasis ulcers with concern for infection - changed ceftriaxone to linezolid + renally-dosed piperacillin-tazobactam 05/19-, add clindamycin 05/22-, consult ID - Wound Care consulted: Bilateral legs - cleanse with saline, apply durafiber ag, cover with ABD pads, hold in place with rolled gauze or stretch netting, change every other day and PRN Buttock - Off Load Pressure with Q2 hr turns and use of pillows - Cleanse with PH balance spray or wipes, pat dry. ?Apply thin layer of barrier cream to affected area.? Apply twice daily and Reapply thin layer PRN after each episode of incontinence. KELSEY/CKD3b - Nephrology consulted, following- ?cardiorenal; monitor SCr daily with diuresis. Giving 50g albumin today - continue calcitriol CAD/HLD: statin VTE ppx: apixaban dispo: STR eventually In my clinical judgment, the patient requires continued inpatient hospitalization for the following reasons: hypotension, hypothermia Total time managing care of this patient today: 70 minutes. Quality Stroke Does the patient have a stroke diagnosis?: No VTE Prior VTE?: No VTE Risk Level:: Medical - moderate - high VTE Device Contraindication: Treatment Not Indicated VTE Drug Contraindication: N/A - Med Ordered
--- NOTE | 2025-05-22 15:39 | P.CNID_ITS ---
History of Present Illness Data of Consult Service Date: 05/22/25 Requesting physician: Austyn Wilson Primary Care Provider: Blanca Anderson MD HPI Reason for consult: hypothermia,leg wounds He presents on 05/18 with weakness bilateral legs and swelling. He had shortness of breath and some dark colored stool as well. He has some pancytopenia and hypothermia. His leg swelling improved and legs had some bleeding as well. He has blood cultures negative so far. He has had some CHF,KELSEY Review of Systems 2 Review of Systems: Yes all other systems are reviewed and are negative PMFSH Past Medical History Medical History Chronic atrial fibrillation Hypoxia Acute on chronic heart failure with preserved ejection fraction (HFpEF) Anemia in chronic kidney disease (CKD) Hypertension Uncontrolled hypertension Congestive heart failure CKD (chronic kidney disease) CHF (congestive heart failure) CKD (chronic kidney disease) stage 4, GFR 15-29 ml/min Obesity (BMI 30.0-34.9) Cardiomyopathy Stroke CKD (chronic kidney disease) Former smoker Depression Diabetes High cholesterol Family History Family History Father No problems noted. Mother Diabetes Hypertension Cancer Son No problems noted. Son No problems noted. Son No problems noted. Daughter No problems noted. Daughter No problems noted. Family history: reviewed and not pertinent Surgical History Surgical History History of aneurysm History of shoulder surgery Social History Social History Household Members: Family Household Members Other:: Housing: Apartment Are you a primary workforce investment act career manager to a significant other at home: No Do you presently have visiting nurse or other home services: Yes Alcohol intake: never Comment: Sitter at bedside Patient Tobacco Use Status: Former Tobacco user Substance Use Type: Marijuana Advance Directives Date on File: 12/17/24 service: No Current occupational status: disabled Meds Allergies Allergy/AdvReac Type Severity Reaction Status Date / Time No Known Allergies (No Known Allergy Verified 05/18/25 14:33 Allergies*) Active Medications: Current Medications Acetaminophen (Acetaminophen 325 Mg Tablet) 650 mg PO Q6H PRN PRN Reason: Pain, Mild 1-3,fever,headache Last Admin: 05/22/25 06:51 Dose: 650 mg Apixaban (Apixaban 2.5 Mg Tablet) 2.5 mg PO BID [facility] Last Admin: 05/22/25 08:35 Dose: 2.5 mg Atorvastatin Calcium (Atorvastatin Calcium 40 Mg Tablet) 40 mg PO DAILY [facility] Last Admin: 05/22/25 08:35 Dose: 40 mg Bumetanide (Bumetanide 1 Mg/4 Ml Vial) 2 mg IVPUSH BID@0900,1700 [facility]; Protocol Last Admin: 05/22/25 08:31 Dose: Not Given Calcitriol (Calcitriol 0.25 Mcg Capsule) 0.25 mcg PO Q48H [facility] Last Admin: 05/21/25 08:50 Dose: 0.25 mcg Calcium Carbonate (Calcium Carbonate 750 Mg Tab.Chew) 750 mg PO Q4H PRN PRN Reason: Heartburn Piperacillin Sod/Tazobactam (Sod 2.25 gm/ Sodium Chloride) 50 mls @ 100 mls/hr IV Q6H [facility] Last Infusion: 05/22/25 11:31 Dose: Infused Clindamycin Phosphate (Cleocin) 600 mg in 50 mls @ 100 mls/hr IV Q8H [facility] Last Infusion: 05/22/25 12:26 Dose: Infused Linezolid (Linezolid 600 Mg Tablet) 600 mg PO Q12H [facility] Magnesium Hydroxide (Milk Of Magnesia 30 Ml Oral.Susp) 30 ml PO DAILY PRN PRN Reason: Constipation Melatonin (Melatonin 3 Mg Tablet) 6 mg PO BEDTIME PRN PRN Reason: Insomnia Last Admin: 05/21/25 21:05 Dose: 6 mg Metolazone (Metolazone 2.5 Mg Tablet) 2.5 mg PO MOWEFR [facility] On Hold: 05/22/25 15:02 Last Admin: 05/22/25 11:34 Dose: Not Given Midodrine (Midodrine Hcl 10 Mg Tablet) 10 mg PO TIDWM [facility] Last Admin: 05/22/25 12:01 Dose: 10 mg Morphine Sulfate (Morphine Sulfate 2 Mg/Ml Cartridge) 2 mg IVPUSH Q3H PRN; Protocol PRN Reason: Pain, Severe (Pain Scale 7-10) Last Admin: 05/20/25 04:14 Dose: 2 mg Naloxone HCl (Naloxone Hcl 0.4 Mg/Ml Vial) 0.04 mg IVPUSH Q5M PRN PRN Reason: Excessive sedation or RR < 8 Omeprazole (Omeprazole 20 Mg Capsule.Dr) 20 mg PO BID@0630,1630 [facility] Last Admin: 05/22/25 04:59 Dose: 20 mg Oxycodone HCl (Oxycodone Hcl Immed Release 5 Mg Tablet) 5 mg PO Q4H PRN PRN Reason: Pain, Moderate(Pain Scale 4-6) Last Admin: 05/21/25 21:06 Dose: 5 mg Sodium Biphosphate/Sodium Phosphate (Sodium Phosphate,[place]-Dibasic 133 Ml Enema) 133 ml HI ONCE PRN PRN Reason: Consult order Last Admin: 05/20/25 10:53 Dose: 133 ml Sodium Chloride (0.9 % Sodium Chloride Flush 3 Ml Syringe) 3 ml IVFLUSH QSHIFT [facility] Last Admin: 05/22/25 08:40 Dose: 3 ml Sucralfate (Sucralfate 1 Gm Tablet) 1 gm PO BIDAC [facility] Last Admin: 05/22/25 06:51 Dose: 1 gm Home Medications ?Medication ?Instructions ?Recorded ?Confirmed ?Last Taken ?Type blood-glucose meter #1 ea 05/14/20 01/14/24 Unkn own History lancets #100 ea 05/14/20 01/14/24 Un known History atorvastatin 40 mg tablet 40 mg PO DAILY 12/19/22 1002/0404/06/25 History apixaban 2.5 mg tablet (Eliquis) 2.5 mg PO BID 12/05/2 5 05/18/25 04/06/25 History ferrous sulfate 325 mg (65 mg 325 mg PO BID 03/30/25 1 04/06/25 History iron) tablet calcitriol 0.25 mcg capsule 0.25 mcg PO Q48H 05/04/25 05/18/25 Unknown History metolazone 2.5 mg tablet 2.5 mg PO MOWEFR 05/04/25 Unknown History Physical Exam 2 Vital Signs: Vital Signs: Last Vital Signs Temp 93.4 F L 05/22/25 11:45 Pulse 46 L 05/22/25 11:45 Resp 18 05/22/25 11:45 BP 98/42 L 05/22/25 14:35 Pulse Ox 93 05/22/25 11:45 O2 Del Method Room Air 05/22/25 11:45 O2 Flow Rate 2 05/20/25 15:45 BMI result Body Mass Index 25.3 Const: General: cooperative HEENT: Head: Yes normal to inspection Face and sinus: Yes normal facial exam Mouth: Normal oral and palatal mucosa present Teeth and gingiva: d entition normal Eyes: General: appearance normal, both eyes and all related structures P upils: Equal, round and reactive pupils present Resp: Effort & Inspection: normal respiratory effort Cardio: Rate: regular rate Rhythm: regular rhythm GI: Palpation (GI): Soft to palpation and nontender : General: Yes no CVA tenderness Back/Spine/Pelvis: Back: no CVA tenderness Skin: General skin exam: no rashes or lesions noted Neuro: General: moves all extremities Cranial nerves: Yes Equal, round and reactive pupils present Extrem: Other: legs swelling receded but exfoliative skin leading to bleeding and raw skin below knees,no surrounding cellulitis trace edema only Psych: Appearance: grossly normal Results Labs 05/22/25 06:50 05/22/25 06:50 Labs: Short CBC 05/22/25 Range/Units 06:50 WBC 2.6 L (4.8-10.8) X10*3/uL Hgb 8.3 L (14.0-18.0) g/dl Hct 27.1 L (42.0-52.0) % Plt Count 79 L (160-400) X10*3/uL BMP 05/22/25 06:50 Sodium 132 L Potassium 4.5 Chloride 102 Carbon Dioxide 19 L BUN 127 H Creatinine 4.04 H* Calcium 8.0 L Liver Function 05/22/25 Range/Units 06:50 Total Bilirubin 1.0 (0.0-1.0) mg/dL Direct Bilirubin 0.5 (0.0-0.5) mg/dL AST 37 (5-37) U/L ALT 18 (0-40) U/L Alkaline Phosphatase 110 (39-117) U/L Albumin 2.8 L (3.5-5.0) g/dL Assessment and Plan (1) Congestive heart failure: Status: Acute (2) CHF (congestive heart failure): Status: Acute (3) Chronic atrial fibrillation: Status: Acute (4) CKD stage 3b, GFR 30-44 ml/min: Status: Acute (5) Acute respiratory failure with hypoxia: Status: Acute Plan Stop all antibiotics if blood cultures negative as doesnt appear as cellulitis since both lower extremities involved and superficial bleeding legs not prominent heat and h/o Cdiff reported. More probably CHF and renal dysfunction cause of hypothermia and has a poor prognosis. Bilateral bleeding and exfoliative dermatitis legs ?diuretic cause appearing more as burn. Caution with diuretics and apply silvadene cream to raw areas of leg.
[2025-05-22 18:18] LABS: Prot Elec - Albumin 3.0 g/dL (3.8-4.8); Prot Elec - Alpha1 0.5 g/dL (0.2-0.3); Prot Elec - Alpha2 0.5 g/dL (0.5-0.9); Prot Elec - Beta 1 0.5 g/dL (0.4-0.6); Prot Elec - Beta 2 0.5 g/dL (0.2-0.5); Prot Elec - Gamma 1.7 g/dL (0.8-1.7); Prot Elec - Total Protein 6.7 g/dL (6.1-8.1)
[2025-05-22] MEDS: Bumetanide 25 MG in Container,Empty 0 ML IVCONT (19:55)
[2025-05-23] VITALS (10 sets, daily range): BP systolic 104–124; BP diastolic 48–67; PULSE 50–66; RESP 12–20; TEMP 34–35.2; O2SAT 93–97
[2025-05-23 08:03] LABS: Appearance Urine Cloudy; Glucose Urine UA Negative (Negative); PH 5.0 (5.0-9.0); Specific Gravity - Urine 1.015 (1.005-1.025); UMIC TRIGGER UA YES
[2025-05-23 08:17] LABS: Hematocrit 25.6 % (42.0-52.0); Hemoglobin 7.8 g/dl (14.0-18.0); Mean Corpuscular HGB Conc 30.5 g/dl (31.0-36.0); Mean Corpuscular Hemoglobin 25.1 pg (27.0-33.0); Mean Corpuscular Volume 82.3 fL (80.0-98.0); NRBC Abs Auto 0.040 X10*3/uL (0.0-0.012); Red Blood Count 3.11 X10*6/uL (4.60-5.80); White Blood Count 3.6 X10*3/uL (4.8-10.8)
[2025-05-23 08:18] LABS: NRBC Pct Auto 1.1 /100WBC (0.0-0.2); Platelet Count 72 X10*3/uL (160-400)
[2025-05-23 08:20] LABS: INTERNATIONAL NORM RATIO 1.8 (0.9-1.1); Prothrombin Time 20.4 SEC (10.9-12.4)
[2025-05-23 08:42] LABS: Alanine Aminotransferase 17 U/L (0-40); Albumin Level 3.1 g/dL (3.5-5.0); Alkaline Phosphatase 102 U/L (39-117); Anion Gap 20 (12-20); Aspartate Amino Transferase 33 U/L (5-37); Calcium 7.9 mg/dL (8.4-10.2); Carbon Dioxide 17 mmol/L (22-29); Chloride 101 mmol/L (96-108); Creatinine Clr Calc Pharmacy 14.5; Estimated Glomerular Filt Rate 13; Magnesium 2.0 mg/dL (1.6-2.6); Potassium 4.8 mmol/L (3.3-5.1); Sodium 133 mmol/L (135-145); Total Protein 6.5 g/dL (6.5-8.0)
[2025-05-23 08:47] LABS: NT Pro B Type Natriuretic Pept 10340.3 pg/mL (<300)
[2025-05-23 08:53] LABS: Blood Urea Nitrogen 141 mg/dL (9-16)
[2025-05-23 09:03] LABS: HBS Num1 1.34 mIU/mL (0-7.99); HBc Num1 0.30 S/CO (0.00-0.79); HBsAGNum1 0.39 S/CO (0.00-0.99); HIV Num 1 0.06 S/CO (0.00-0.99); Hepatitis B Surface Antigen Negative (Negative); ~HepC Num1 0.72 S/CO (0.00-0.79); ~Hepatitis B Surface Antibody NONREACTIVE (Nonreactive); ~Hepatitis C Antibody Nonreactive (Nonreactive)
--- NOTE | 2025-05-23 09:09 | PC.NURSE ---
pt refusing isaura hugger, stating : i dont want it take it off, i feel good . this RN educated pt on low temp and need for isaura hugger to bring temp up. pt does not comprehend need for isaura hugger and repeatedly asks why it is needed after education.
--- NOTE | 2025-05-23 09:12 | PC.NURSE ---
Addendum entered by Cristiane Griggs RN 05/23/25 16:15: pt stating that he is having difficulty urinating and straining. pt did have increased urine output compared to previous day shift. bladder scan 184. Dr. mccollum aware and came to bedside to speak with pt/family. sister at bedside during indwelling garza cath insertion. pt tolerated well. small amount of blood from urethra after insertion. dr day at bedside with family. Original Note: pt refusing isaura hugger, stating : i dont want it take it off, i feel good . this RN educated pt on low temp and need for isaura hugger to bring temp up. pt does not comprehend need for isaura hugger and repeatedly asks why it is needed after education. Br. mccollum aware. caitie consult placed to deem competency.
[2025-05-23 09:13] LABS: Folate 6.7 ng/mL (> or = 4.0); Vitamin B12 1305 pg/mL (200-900)
[2025-05-23] MEDS: 0.9 % Sodium Chloride Flush 3 ML SYRINGE IVFLUSH ×2 (09:23→17:06)
[2025-05-23 09:42] LABS: EOS Counted 0 CELLS; EOS QC POS YES; EOS Stain Quality OK YES; WBC, Counted 100 CELLS
[2025-05-23 10:14] LABS: VBG HCO3 17 mmol/L (22-26); VBG O2 % Saturation 84.0 %
[2025-05-23 10:19] LABS: Venous Blood Gas Refer to POC result
--- NOTE | 2025-05-23 10:47 | P.CNPS_ITS ---
History of Present Illness Date of Service: 05/23/25 Chief Complaint: GI Bleed Requesting physician: Austyn Wilson Discussed with referring provider: Yes Sources of Information: patient interviewed and chart reviewed HPI Narrative: 74yo M with HFrEF, AF on apixaban, DM2, HTN, HLD, CAD, hyperPTH presenting with bilateral leg swelling and pain, blood in the stool; admitted for acute/chronic HFrEF, leg wound infection, GI bleed. Now hypothermic and pancytopenic. Patient intermittently resisting various treatments; may very well need dialysis and psychiatry consult place to assess patient's ability to make medical decision and give informed consent. Patient seen with radio host Claribel Patient's daughter Esha, who was also his healthcare proxy, also present Patient calm and cooperative on approach. Patient knows who he is and knows he is in [facility]. When asked why he came to the hospital patient is silent... [employer]er asked again and then patient said because [long pause] I'm peeing... [employer]er then explained patient's medical condition and reasons for hospitalization. [employer]er then asked again if he could explain it back to publications writer but patient could only say he is here because I am sick.. Despite further explanations of patient's medical condition he could not explain them back. N[employer]er discussed and explained the possibility of patient's need for dialysis and what dialysis is for... However when asked, patient could not explain it back in any way. When it was explained that if he did not get dialysis it was possible that he could , he said he did not want to and wanted dialysis. That said he still could not explain what dialysis was or understand what the procedure entails. Patient's daughter present who has for months been worried about his cognitive decline. She says that he calls her at least once a day confused. Recently he walked himself to the [employer] and then called her saying he has no idea why he is at the bank; he then called her again and asked why he was dirty... He often calls saying he does not know what to do... Does not know what to eat... Patient lives on his own in his apartment and the representative personal service says he appears confused and will sometimes leave at night and walk around on his own and get locked out of the building. Other people who lived in the building have heard him screaming at night and actually called protective Services worried about him being able to take care of himself. Patient's daughter says that when she visits him clearly forgets to take his medications as there are medications left over; she says he is supposed to have a VNA but she does not know what occurs when VNA comes. Past Psychiatric History: Denies [facility] Medical History (Updated 05/24/25 @ 11:37 by Karthikeyan Burt MD) Cognitive impairment Chronic atrial fibrillation Hypoxia Acute on chronic heart failure with preserved ejection fraction (HFpEF) Anemia in chronic kidney disease (CKD) Hypertension Uncontrolled hypertension Congestive heart failure CKD (chronic kidney disease) CHF (congestive heart failure) CKD (chronic kidney disease) stage 4, GFR 15-29 ml/min Obesity (BMI 30.0-34.9) Cardiomyopathy Stroke CKD (chronic kidney disease) Former smoker Depression Diabetes High cholesterol Surgical History History of aneurysm History of shoulder surgery Family History: twice. Have 5 adult children. Social History: . Stay in home himself as his currently with their daughter. Able to perform ADL's himself, cook himself. Trauma History: not discuss Diagnostics Vital Signs (24Hr): Vital Signs - 24 hr 05/22/25 11:45 05/22/25 14:28 05/22/25 14:35 Temperature 93.4 F L Pulse Rate 46 L Respiratory Rate 18 Blood Pressure 101/59 L 98/42 L 98/42 L Pulse Oximetry 93 Oxygen Delivery Method Room Air Oxygen Flow Rate 05/22/25 15:54 05/22/25 19:40 05/22/25 23:19 Temperature 92.4 F L 91.7 F L 91.4 F L Pulse Rate 50 42 L 50 Respiratory Rate 17 18 20 Blood Pressure 98/57 L 110/68 117/58 L Pulse Oximetry 93 93 91 L Oxygen Delivery Method Room Air Room Air Room Air Oxygen Flow Rate 05/23/25 02:03 05/23/25 03:21 05/23/25 06:30 Temperature 94.0 F L 94.5 F L 95.0 F L Pulse Rate 57 Respiratory Rate 12 Blood Pressure 115/58 L Pulse Oximetry 97 Oxygen Delivery Method Nasal Cannula Oxygen Flow Rate 1 05/23/25 07:43 Temperature 95.3 F L Pulse Rate 63 Respiratory Rate 18 Blood Pressure 106/67 Pulse Oximetry 94 Oxygen Delivery Method Room Air Oxygen Flow Rate BMI result Body Mass Index 25.3 Labs 05/24/25 07:05 05/24/25 07:05 Labs: Laboratory Results - last 48 hr 05/20/25 05/21/25 05/22/25 06:21 22:37 00:54 WBC RBC Hgb Hct MCV MCH MCHC RDW Plt Count MPV Absolute Nucleated RBC Nucleated RBC % (auto) Smear Path Review Absolute Retic Percent Retic Immature Retic Fraction Retic Hgb Equivalent Hold Purple Top SEE NOTE PT INR VBG pH VBG pCO2 VBG pO2 VBG HCO3 VBG O2 Saturation VBG Base Excess Sodium Potassium Chloride Carbon Dioxide Anion Gap BUN Creatinine Estim Creat Clear Calc Estimated GFR Random Glucose Haptoglobin Lactic Acid Calcium Magnesium Total Bilirubin Direct Bilirubin AST ALT Alkaline Phosphatase Lactate Dehydrogenase Troponin I High Sens 23.4 23.6 NT-Pro-B Natriuret Pep Total Protein Total Protein (PEP) 6.7 Albumin Albumin (PEP) 3.0 L Otuiw-1-Apfsteaos 0.5 H Tkgje-6-Edrsqjkjg 0.5 Xvis-1-Cjshuklp 0.5 Ugpw-2-Kwtrwjsk 0.5 Gamma Globulins 1.7 PEP Interpretation SEE NOTE Vitamin B12 Folate TSH 6.32 H Free T4 0.81 Random Cortisol Urine Color Urine Appearance Urine pH Ur Specific [place] Urine Protein Urine Glucose (UA) Urine Ketones Urine Blood Urine Nitrite Ur Leukocyte Esterase Urine RBC Urine WBC Ur Squamous Epith Cells Urine Bacteria Hyaline Casts Urine Yeast Urine Eosinophils % Proteinase 3 (PR3) Ab <1.0 Myeloperoxidase Ab <1.0 Glomerular Base Memb Ab <1.0 Hep Bs Antigen Hep Bs Antibody Hep B Core Total Ab Hepatitis C Ab (EIA) HIV 1&2 Ab/P24 Ag 4thGn 05/22/25 05/22/25 05/22/25 06:50 09:19 09:23 WBC 2.6 L RBC 3.27 L Hgb 8.3 L Hct 27.1 L MCV 82.9 MCH 25.4 L MCHC 30.6 L RDW 17.9 H Plt Count 79 L MPV 10.7 Absolute Nucleated RBC 0.020 H Nucleated RBC % (auto) 0.8 H Smear Path Review SEE NOTE Absolute Retic 0.044 Percent Retic 1.4 Immature Retic Fraction 20.2 H Retic Hgb Equivalent 19.7 L Hold Purple Top SEE NOTE PT INR VBG pH VBG pCO2 VBG pO2 VBG HCO3 VBG O2 Saturation VBG Base Excess Sodium 132 L Potassium 4.5 Chloride 102 Carbon Dioxide 19 L Anion Gap 16 BUN 127 H Creatinine 4.04 H* Estim Creat Clear Calc 16.5 Estimated GFR 15 Random Glucose 102 Haptoglobin 72 Lactic Acid Calcium 8.0 L Magnesium 2.2 Total Bilirubin 1.0 Direct Bilirubin 0.5 AST 37 ALT 18 Alkaline Phosphatase 110 Lactate Dehydrogenase 220 Troponin I High Sens NT-Pro-B Natriuret Pep 35412.3 H Total Protein 6.4 L Total Protein (PEP) Albumin 2.8 L Albumin (PEP) Osbtz-2-Owtpzvkjl Rltpc-8-Qufivmxqp Dqhk-3-Vfyjhuar Jbhe-7-Oglrlvoy Gamma Globulins PEP Interpretation Vitamin B12 Folate TSH Free T4 Random Cortisol 8.0 Urine Color Urine Appearance Urine pH Ur Specific [place] Urine Protein Urine Glucose (UA) Urine Ketones Urine Blood Urine Nitrite Ur Leukocyte Esterase Urine RBC Urine WBC Ur Squamous Epith Cells Urine Bacteria Hyaline Casts Urine Yeast Urine Eosinophils % Proteinase 3 (PR3) Ab Myeloperoxidase Ab Glomerular Base Memb Ab Hep Bs Antigen Hep Bs Antibody Hep B Core Total Ab Hepatitis C Ab (EIA) HIV 1&2 Ab/P24 Ag 4thGn 05/22/25 05/23/25 05/23/25 14:57 07:21 07:36 WBC 3.6 L RBC 3.11 L Hgb 7.8 L Hct 25.6 L MCV 82.3 MCH 25.1 L MCHC 30.5 L RDW 18.6 H Plt Count 72 L MPV 9.7 Absolute Nucleated RBC 0.040 H Nucleated RBC % (auto) 1.1 H Smear Path Review Absolute Retic Percent Retic Immature Retic Fraction Retic Hgb Equivalent Hold Purple Top PT 20.4 H D INR 1.8 H VBG pH VBG pCO2 VBG pO2 VBG HCO3 VBG O2 Saturation VBG Base Excess Sodium 133 L Potassium 4.8 Chloride 101 Carbon Dioxide 17 L Anion Gap 20 BUN 141 H Creatinine 4.60 H* Estim Creat Clear Calc 14.5 Estimated GFR 13 Random Glucose 69 Haptoglobin Lactic Acid 1.8 Calcium 7.9 L Magnesium 2.0 Total Bilirubin 1.1 H Direct Bilirubin AST 33 ALT 17 Alkaline Phosphatase 102 Lactate Dehydrogenase Troponin I High Sens NT-Pro-B Natriuret Pep 55312.3 H Total Protein 6.5 Total Protein (PEP) Albumin 3.1 L Albumin (PEP) Cgipr-1-Itdwgybgi Bfqgf-6-Jhpjasvya Xypl-5-Rdjhhvsk Gduo-2-Yfgtfiny Gamma Globulins PEP Interpretation Vitamin B12 1305 H Folate 6.7 TSH Free T4 Random Cortisol Urine Color Yellow Urine Appearance Cloudy Urine pH 5.0 Ur Specific [place] 1.015 Urine Protein 30 (1+) H Urine Glucose (UA) Negative Urine Ketones Negative Urine Blood Moderate (2+) H Urine Nitrite Negative Ur Leukocyte Esterase Small (1+) H Urine RBC 11-20 H Urine WBC 0-5 Ur Squamous Epith Cells 0-2 Urine Bacteria None Seen Hyaline Casts 11-20 Urine Yeast Present Urine Eosinophils % 0.0 Proteinase 3 (PR3) Ab Myeloperoxidase Ab Glomerular Base Memb Ab Hep Bs Antigen Negative Hep Bs Antibody NONREACTIVE Hep B Core Total Ab Nonreactive Hepatitis C Ab (EIA) Nonreactive HIV 1&2 Ab/P24 Ag 4thGn Nonreactive 05/23/25 10:03 WBC RBC Hgb Hct MCV MCH MCHC RDW Plt Count MPV Absolute Nucleated RBC Nucleated RBC % (auto) Smear Path Review Absolute Retic Percent Retic Immature Retic Fraction Retic Hgb Equivalent Hold Purple Top PT INR VBG pH 7.40 VBG pCO2 28 VBG pO2 57 VBG HCO3 17 L VBG O2 Saturation 84.0 VBG Base Excess -5.9 Sodium Potassium Chloride Carbon Dioxide Anion Gap BUN Creatinine Estim Creat Clear Calc Estimated GFR Random Glucose Haptoglobin Lactic Acid Calcium Magnesium Total Bilirubin Direct Bilirubin AST ALT Alkaline Phosphatase Lactate Dehydrogenase Troponin I High Sens NT-Pro-B Natriuret Pep Total Protein Total Protein (PEP) Albumin Albumin (PEP) Zoetf-0-Bruzlwwai Vfsna-3-Dpcwzyhgi Nsgg-9-Fetuidvg Zjaz-9-Vqnmzbww Gamma Globulins PEP Interpretation Vitamin B12 Folate TSH Free T4 Random Cortisol Urine Color Urine Appearance Urine pH Ur Specific [place] Urine Protein Urine Glucose (UA) Urine Ketones Urine Blood Urine Nitrite Ur Leukocyte Esterase Urine RBC Urine WBC Ur Squamous Epith Cells Urine Bacteria Hyaline Casts Urine Yeast Urine Eosinophils % Proteinase 3 (PR3) Ab Myeloperoxidase Ab Glomerular Base Memb Ab Hep Bs Antigen Hep Bs Antibody Hep B Core Total Ab Hepatitis C Ab (EIA) HIV 1&2 Ab/P24 Ag 4thGn Imaging Radiology Impressions: ITS Impressions Chest X-Ray 05/18/25 15:05 IMPRESSION: Small layering right effusion with associated passive atelectasis in the right base. Cardiac enlargement. No significant interval change from 05/05/2025. Electronically signed by: Jack Shah MD 05/18/2025 03:19 PM EDT RP Head CT 05/22/25 12:12 IMPRESSION: Limited examination due to streak artifact from aneurysm clips. No definite evidence of intracranial hemorrhage. Electronically signed by: Cornelio Flores MD 05/22/2025 12:43 PM EDT RP Medications Medications Current Medications Acetaminophen (Acetaminophen 325 Mg Tablet) 650 mg PO Q6H PRN PRN Reason: Pain, Mild 1-3,fever,headache Last Admin: 05/23/25 03:40 Dose: 650 mg Apixaban (Apixaban 2.5 Mg Tablet) 2.5 mg PO BID [facility] Last Admin: 05/23/25 08:32 Dose: Not Given Atorvastatin Calcium (Atorvastatin Calcium 40 Mg Tablet) 40 mg PO DAILY [facility] Last Admin: 05/23/25 09:27 Dose: Not Given Bumetanide (Bumetanide 1 Mg/4 Ml Vial) 2 mg IVPUSH BID@0900,1700 SHAUNNA; Protocol Last Admin: 05/23/25 07:46 Dose: Not Given Calcitriol (Calcitriol 0.25 Mcg Capsule) 0.25 mcg PO Q48H [facility] Last Admin: 05/23/25 09:27 Dose: Not Given Calcium Carbonate (Calcium Carbonate 750 Mg Tab.Chew) 750 mg PO Q4H PRN PRN Reason: Heartburn Last Admin: 05/23/25 10:38 Dose: 750 mg Piperacillin Sod/Tazobactam (Sod 2.25 gm/ Sodium Chloride) 50 mls @ 100 mls/hr IV Q6H [facility] Last Infusion: 05/23/25 10:02 Dose: Infused Clindamycin Phosphate (Cleocin) 600 mg in 50 mls @ 100 mls/hr IV Q8H [facility] Last Admin: 05/23/25 10:04 Dose: 100 mls/hr Bumetanide 25 mg/ IV (Miscellaneous Supplies) 100 mls @ 4 mls/hr IVCONT .Q24H [facility] Last Infusion: 05/23/25 09:13 Dose: 1 mg/hr, 4 mls/hr Linezolid (Linezolid 600 Mg Tablet) 600 mg PO Q12H [facility] Last Admin: 05/23/25 06:04 Dose: 600 mg Magnesium Hydroxide (Milk Of Magnesia 30 Ml Oral.Susp) 30 ml PO DAILY PRN PRN Reason: Constipation Melatonin (Melatonin 3 Mg Tablet) 6 mg PO BEDTIME PRN PRN Reason: Insomnia Last Admin: 05/21/25 21:05 Dose: 6 mg Metolazone (Metolazone 2.5 Mg Tablet) 2.5 mg PO MOWEFR [facility] On Hold: 05/22/25 15:02 Last Admin: 05/22/25 11:34 Dose: Not Given Midodrine (Midodrine Hcl 10 Mg Tablet) 10 mg PO TIDWM [facility] Last Admin: 05/23/25 09:26 Dose: Not Given Morphine Sulfate (Morphine Sulfate 2 Mg/Ml Cartridge) 2 mg IVPUSH Q3H PRN; Protocol PRN Reason: Pain, Severe (Pain Scale 7-10) Last Admin: 05/20/25 04:14 Dose: 2 mg Naloxone HCl (Naloxone Hcl 0.4 Mg/Ml Vial) 0.04 mg IVPUSH Q5M PRN PRN Reason: Excessive sedation or RR < 8 Omeprazole (Omeprazole 20 Mg Capsule.Dr) 20 mg PO BID@0630,1630 [facility] Last Admin: 05/23/25 06:10 Dose: Not Given Oxycodone HCl (Oxycodone Hcl Immed Release 5 Mg Tablet) 5 mg PO Q4H PRN PRN Reason: Pain, Moderate(Pain Scale 4-6) Last Admin: 05/21/25 21:06 Dose: 5 mg Silver Sulfadiazine (Silver Sulfadiazine 1 % Cream 20 Gm Tube) 1 appl TOPICAL DAILY PRN; Protocol PRN Reason: with dressings changes Sodium Biphosphate/Sodium Phosphate (Sodium Phosphate,[place]-Dibasic 133 Ml Enema) 133 ml [place] ONCE PRN PRN Reason: Consult order Last Admin: 05/20/25 10:53 Dose: 133 ml Sodium Chloride (0.9 % Sodium Chloride Flush 3 Ml Syringe) 3 ml IVFLUSH QSHIFT [facility] Last Admin: 05/23/25 09:23 Dose: 3 ml Sucralfate (Sucralfate 1 Gm Tablet) 1 gm PO BIDAC [facility] Last Admin: 05/23/25 06:04 Dose: 1 gm Allergies Allergies Allergy/AdvReac Type Severity Reaction Status Date / Time No Known Allergies (No Known Allergy Verified 05/18/25 14:33 Allergies*) Assessment & Plan Assessment & Plan (1) Cognitive impairment: Status: Acute Code(s): R41.89 - Other symptoms and signs involving cognitive functions and awareness (2) Cardiorenal syndrome: Status: Acute Code(s): I13.10 - Hypertensive heart and chronic kidney disease without heart failure, with stage 1 through stage 4 chronic kidney disease, or unspecified chronic kidney disease (3) Congestive heart failure: Status: Acute Code(s): I50.9 - Heart failure, unspecified (4) Acute on chronic kidney failure: Status: Acute Code(s): N17.9 - Acute kidney failure, unspecified; N18.9 - Chronic kidney disease, unspecified Plan 74yo M with HFrEF, AF on apixaban, DM2, HTN, HLD, CAD, hyperPTH presenting with bilateral leg swelling and pain, blood in the stool; admitted for acute/chronic HFrEF, leg wound infection, GI bleed. Now hypothermic and pancytopenic. Patient is intermittently resisting various treatments, sometimes refusing medication, intermittently refusing the [employer] to treat his hypothermia... Patient may very well need dialysis. Psychiatry consult place to assess patient's ability to make medical decision and give informed consent. Patient seen with radio host Claribel Patient's daughter Esha, who was also his healthcare proxy, also present Patient calm and cooperative on approach. Patient knows who he is and knows he is in [facility]. When asked why he came to the hospital patient is silent... [employer]er asked again and then patient said because [long pause] I'm peeing... [employer]er then explained patient's medical condition and reasons for hospitalization. [employer]er then asked again if he could explain it back to publications writer but patient could only say he is here because I am sick.. Despite further explanations of patient's medical condition he could not explain them back. N[employer]er discussed and explained the possibility of patient's need for dialysis and what dialysis is for... However when asked, patient could not explain it back in any way. When it was explained that if he did not get dialysis it was possible that he could , he said he did not want to and wanted dialysis. That said he still could not explain what dialysis was or understand what the procedure entails. Patient's daughter present who has for months been worried about his cognitive decline. She says that he calls her at least once a day confused. Recently he walked himself to the bank and then called her saying he has no idea why he is at the bank; he then called her again and asked why he was dirty... He often calls saying he does not know what to do... Does not know what to eat... Patient lives on his own in his apartment and the representative personal service says he appears confused and will sometimes leave at night and walk around on his own and get locked out of the building. Other people who lived in the building have heard him screaming at night and actually called protective Services worried about him being able to take care of himself. Patient's daughter says that when she visits him clearly forgets to take his medications as there are medications left over; she says he is supposed to have a VNA but she does not know what occurs when VNA comes. Recent months: Patient Self presented to the ED ?9 x since March, ?generally for the same reasons ( lower extremity leg and genital swelling and shortness of breath) ?in the context of CHF, hypertension, CKD, cardiomyopathy chronic Afib..? Only to leave AMA within hours or 1-2 days (with 2 excepctions) 03/19 and left AMA 03/23 medically admitted but with an hours, took out IV and left AMA 03/25 medically admitted but next day again left AMA 03/30 medically admitted; became agitated and tried to leave AMA was restrained; left AMA on 03/31 04/04 medically admitted but left AMA same-day 04/06 medically admitted, left AMA the next day 04/12-04/18 medically admitted; threatened to leave AMA numerous times but did stay the entire course of hospitalization and discharged on 04/18 05/03-05/07 medically admitted; threatened to leave AMA numerous times but did stay the entire course of hospitalization (has a VNA) 05/18 this current medical admission Impression: Patient does NOT have capacity to make medical decisions for himself. Currently he does not understand his medical illness to an adequate degree; his ability to understand the need for treatment(s) is inadequate; it waxes and wanes and remains inconsistent; he does not adequately understand the consequences of refusing treatments. He is not able to express a consistent choice which is evidenced by the fact that he will ask for help and then refuse it, unable to explain why he is doing so. Thus, publications writer concludes that Patient is unable to make informed decisions regarding his medical care or regarding his ability to take care of himself. It is publications writer's opinion that patients lack of capacity is not limited to this admission. Rather it is more likely due to what looks to be a progressively declining cognitive ability which is supported by patients recent history. Since March he has self presented to the ED 9 times, coming to the hospital, asking for help and then immediately refusing it and leaving AMA. This history implies that while patient knows he is sick and needs help, he does not understand his illness, the need for treatments or the consequences of refusing treatment. The collateral information provided by his daughter further supports that patient has a declining ability to take care himself evidenced by his behaviors in the community. [employer]er discussed these topics with his healthcare proxy/daughter Esha who understands that the Healthcare proxy is invoked and her role as healthcare proxy Patient's daughter Esha, Patient's healthcare proxy is invoked Total time managing care of this patient today ____ minutes. Patient educated on: diagnosis, medication risk/benefits and medical condition Informed Consent: understands, does not understand and further education needed
[2025-05-23 11:48] LABS: Venous Blood Gas Refer to POC result
[2025-05-23 11:49] LABS: VBG HCO3 17 mmol/L (22-26)
[2025-05-23 12:08] LABS: Troponin-I High Sensitivity 27.9 ng/L (<3.5-35.0); Troponin-I High Sensitivity 28.1 ng/L (<3.5-35.0)
--- NOTE | 2025-05-23 12:12 | PM.PNCARD ---
Subjective Subjective Date of Service: 05/23/25 Principal diagnosis: CHF, chronic AFib. Interval history: Patient says he does not feel well, very vague about his symptoms. Says that he has nauseous and MIBI having some burning chest discomfort. Heart rate has improved. Blood pressures improved. Temperature is still remains low. Review of Systems Constitutional: Reports malaise and Reports weakness Cardiovascular: Reports chest pain at rest (Burning discomfort), Reports leg edema and Denies dyspnea Respiratory: Denies dyspnea Gastrointestinal: Reports no additional gastrointestinal complaints Genitourinary: Reports no additional male genitourinary complaints Musculoskeletal: Reports no additional musculoskeletal complaints Reports system reviewed and no additional complaints, except as documented and Reports weakness Physical Exam Vital Signs: Last Vital Signs Temp 95.0 F L 05/23/25 11:21 Pulse 60 05/23/25 11:21 Resp 18 05/23/25 11:21 BP 116/52 L 05/23/25 11:21 Pulse Ox 97 05/23/25 11:21 O2 Del Method Nasal Cannula 05/23/25 11:21 O2 Flow Rate 2 05/23/25 11:21 BMI result Body Mass Index 25.3 Const General: cooperative, no acute distress, alert and awake Nutritional Appearance: average body habitus Orientation/consciousness: patient oriented x3 Neck Neck: Yes trachea midline and Yes supple Resp Effort & Inspection: decreased respiratory effort Auscultation: no rales and no wheezes Cardio Rate: bradycardic Rhythm: abnormal rhythm irregularly irregular Heart sounds: S1 normal heart sound present, S2 normal heart sound present, no click and no gallops GI Auscultation: normal bowel sounds Skin General skin exam: no rashes or lesions noted Neuro General: patient oriented x3 and no focal motor deficits Extrem General: No clubbing, No cyanosis and Yes edema Objective Labs and Meds 05/23/25 07:21 05/23/25 07:21 Lab results: Laboratory Results - last 24 hr 05/20/25 05/22/25 05/23/25 06:21 14:57 07:21 WBC 3.6 L RBC 3.11 L Hgb 7.8 L Hct 25.6 L MCV 82.3 MCH 25.1 L MCHC 30.5 L RDW 18.6 H Plt Count 72 L MPV 9.7 Absolute Nucleated RBC 0.040 H Nucleated RBC % (auto) 1.1 H PT 20.4 H D INR 1.8 H VBG pH VBG pCO2 VBG pO2 VBG HCO3 VBG O2 Saturation VBG Base Excess Sodium 133 L Potassium 4.8 Chloride 101 Carbon Dioxide 17 L Anion Gap 20 BUN 141 H Creatinine 4.60 H* Estim Creat Clear Calc 14.5 Estimated GFR 13 Random Glucose 69 Lactic Acid 1.8 Calcium 7.9 L Magnesium 2.0 Total Bilirubin 1.1 H AST 33 ALT 17 Alkaline Phosphatase 102 Troponin I High Sens NT-Pro-B Natriuret Pep 21419.3 H Total Protein 6.5 Total Protein (PEP) 6.7 Albumin 3.1 L Albumin (PEP) 3.0 L Dnueh-1-Hxdguppml 0.5 H Mmhci-7-Ymjntsegn 0.5 Rcnk-5-Ygtodjwm 0.5 Vzzx-5-Nebbpbux 0.5 Gamma Globulins 1.7 PEP Interpretation SEE NOTE Vitamin B12 1305 H Folate 6.7 Urine Color Urine Appearance Urine pH Ur Specific [place] Urine Protein Urine Glucose (UA) Urine Ketones Urine Blood Urine Nitrite Ur Leukocyte Esterase Urine RBC Urine WBC Ur Squamous Epith Cells Urine Bacteria Hyaline Casts Urine Yeast Urine Eosinophils % Hep Bs Antigen Negative Hep Bs Antibody NONREACTIVE Hep B Core Total Ab Nonreactive Hepatitis C Ab (EIA) Nonreactive HIV 1&2 Ab/P24 Ag 4thGn Nonreactive Blood Type Crossmatch 05/23/25 05/23/25 05/23/25 07:36 10:03 11:36 WBC RBC Hgb Hct MCV MCH MCHC RDW Plt Count MPV Absolute Nucleated RBC Nucleated RBC % (auto) PT INR VBG pH 7.40 VBG pCO2 28 VBG pO2 57 VBG HCO3 17 L VBG O2 Saturation 84.0 VBG Base Excess -5.9 Sodium Potassium Chloride Carbon Dioxide Anion Gap BUN Creatinine Estim Creat Clear Calc Estimated GFR Random Glucose Lactic Acid Calcium Magnesium Total Bilirubin AST ALT Alkaline Phosphatase Troponin I High Sens 28.1 NT-Pro-B Natriuret Pep Total Protein Total Protein (PEP) Albumin Albumin (PEP) Lmfyp-5-Qffjrlcxi Pfatr-8-Yzhpieawd Psxy-4-Uprllvre Anng-1-Jobwwpqe Gamma Globulins PEP Interpretation Vitamin B12 Folate Urine Color Yellow Urine Appearance Cloudy Urine pH 5.0 Ur Specific [place] 1.015 Urine Protein 30 (1+) H Urine Glucose (UA) Negative Urine Ketones Negative Urine Blood Moderate (2+) H Urine Nitrite Negative Ur Leukocyte Esterase Small (1+) H Urine RBC 11-20 H Urine WBC 0-5 Ur Squamous Epith Cells 0-2 Urine Bacteria None Seen Hyaline Casts 11-20 Urine Yeast Present Urine Eosinophils % 0.0 Hep Bs Antigen Hep Bs Antibody Hep B Core Total Ab Hepatitis C Ab (EIA) HIV 1&2 Ab/P24 Ag 4thGn Blood Type Crossmatch 05/23/25 05/23/25 11:36 11:43 WBC RBC Hgb Hct MCV MCH MCHC RDW Plt Count MPV Absolute Nucleated RBC Nucleated RBC % (auto) PT INR VBG pH 7.36 VBG pCO2 30 VBG pO2 65 VBG HCO3 17 L VBG O2 Saturation TNP VBG Base Excess -6.9 Sodium Potassium Chloride Carbon Dioxide Anion Gap BUN Creatinine Estim Creat Clear Calc Estimated GFR Random Glucose Lactic Acid Calcium Magnesium Total Bilirubin AST ALT Alkaline Phosphatase Troponin I High Sens 27.9 NT-Pro-B Natriuret Pep Total Protein Total Protein (PEP) Albumin Albumin (PEP) Cjdpq-0-Khonsfmgs Lvoyk-9-Vygrdxrvw Ytss-7-Ejwdoiuj Klen-4-Uiimbkbf Gamma Globulins PEP Interpretation Vitamin B12 Folate Urine Color Urine Appearance Urine pH Ur Specific [place] Urine Protein Urine Glucose (UA) Urine Ketones Urine Blood Urine Nitrite Ur Leukocyte Esterase Urine RBC Urine WBC Ur Squamous Epith Cells Urine Bacteria Hyaline Casts Urine Yeast Urine Eosinophils % Hep Bs Antigen Hep Bs Antibody Hep B Core Total Ab Hepatitis C Ab (EIA) HIV 1&2 Ab/P24 Ag 4thGn Blood Type B Positive Crossmatch See Detail Imaging Radiologist's impression: Impressions Head CT 05/22/25 12:12 IMPRESSION: Limited examination due to streak artifact from aneurysm clips. No definite evidence of intracranial hemorrhage. Electronically signed by: Cornelio Flores MD 05/22/2025 12:43 PM EDT Progress Note: A&P Assessment and plan (1) Hypothermia: Status: Acute Assessment and Plan: Hypothermia slowly improving. Blood pressure and heart rate have improved. Could be probably from medications including initiation vasodilators as well as carvedilol therapy, patient probably not taking at home leading to low stroke volume and cardiac output. Blood pressure and heart rate have both improved. Continue to hold all his medications at this point time in provide supportive care. Patient is currently having no urine output and having vague symptoms at this point time. Encouraged him to continue to use heating devices but he refuses at this time. Agree to transfuse 1 more unit to maintain hematocrit over 30. (2) Chronic atrial fibrillation: Status: Acute Assessment and Plan: Chronic atrial fibrillation, with low rate at this point time probably exacerbated by initiation of carvedilol therapy which he is probably not taking at home. No indication for pacing therapy at this point time. Hold rate lowering medications. Can hold on oral anticoagulation therapy given his anemia as well as acute renal insufficiency and recent possible GI bleed although negative workup (3) Cardiorenal syndrome: Status: Acute Assessment and Plan: Cardiorenal syndrome, agree but I think part of his renal dysfunction probably related to ATN from recent hypotension bradycardia with poor stroke volume/cardiac output status. He MIBI clinically fluid overloaded at this point time but does not appear to be in significant pulmonary edema. Would hold off on diuretic regimen for now from my perspective. If clinical situation worsens may require renal replacement therapy and/or further aggressive management with hemodynamic catheters and support. Will follow with you Time Spent With Patient Time: Total time managing care of this patient today ____ minutes. Progress Note: Quality Stroke Does the patient have a stroke diagnosis?: No Procedures Date of Service Date of Service: 05/23/25
--- NOTE | 2025-05-23 12:14 | HO.PM.IMPN ---
Subjective Subjective Date of Service: 05/23/25 Interval History: last night refused Bumex drip but then agreed to it overnight BP improved, HR improved, as has temperature though still low and keeps refusing Raoul Moreno refused Roblero catheter No hematemesis, hematochezia, or melena. C/o sore throat, chest pain Intermittently agitated Review of Systems Review of Systems: Yes all other systems are reviewed and are negative Physical Exam Vital Signs: Vital Signs: Last Vital Signs Temp 95.0 F L 05/23/25 11:21 Pulse 60 05/23/25 11:21 Resp 18 05/23/25 11:21 BP 116/52 L 05/23/25 11:21 Pulse Ox 97 05/23/25 11:21 O2 Del Method Nasal Cannula 05/23/25 11:21 O2 Flow Rate 2 05/23/25 11:21 BMI result Body Mass Index 25.3 Gen: ill-appearing HEENT: sclera anicteric, moist mucus membranes Neck: supple Lungs: diminished Heart: irregular, no murmurs Abd: soft, non-tender, non-distended Ext: 1+ bilateral leg edema Skin: warm/well-perfused, bilateral venous stasis ulcers with bright-red erythema Neuro: alert and oriented, no focal weakness Psych: impaired insight Objective Data Active Medications Acetaminophen (Acetaminophen 325 Mg Tablet) 650 mg PO Q6H PRN PRN Reason: Pain, Mild 1-3,fever,headache Last Admin: 05/23/25 03:40 Dose: 650 mg Documented By: ARTEMIO Apixaban (Apixaban 2.5 Mg Tablet) 2.5 mg PO BID [facility] Last Admin: 05/23/25 08:32 Dose: Not Given Documented By: NATHAN Non-Admin Reason: Physician Held Med Atorvastatin Calcium (Atorvastatin Calcium 40 Mg Tablet) 40 mg PO DAILY [facility] Last Admin: 05/23/25 09:27 Dose: Not Given Documented By: NATHAN Non-Admin Reason: Patient Refused Benzocaine (Throat Lozenge, Medicated Lozenge) 1 lozenge MUCOUS MEM Q2H PRN PRN Reason: Sore Throat Calcitriol (Calcitriol 0.25 Mcg Capsule) 0.25 mcg PO Q48H [facility] Last Admin: 05/23/25 09:27 Dose: Not Given Documented By: NATHAN Non-Admin Reason: Patient Refused Calcium Carbonate (Calcium Carbonate 750 Mg Tab.Chew) 750 mg PO Q4H PRN PRN Reason: Heartburn Last Admin: 05/23/25 10:38 Dose: 750 mg Documented By: NATHAN Clindamycin Phosphate (Cleocin) 600 mg in 50 mls @ 100 mls/hr IV Q8H [facility] Last Infusion: 05/23/25 10:49 Dose: Infused Documented By: NATHAN Piperacillin Sod/Tazobactam (Sod 2.25 gm/ Sodium Chloride) 50 mls @ 100 mls/hr IV Q8H [facility] Linezolid (Linezolid 600 Mg Tablet) 600 mg PO Q12H [facility] Last Admin: 05/23/25 06:04 Dose: 600 mg Documented By: ATREMIO Magnesium Hydroxide (Milk Of Magnesia 30 Ml Oral.Susp) 30 ml PO DAILY PRN PRN Reason: Constipation Melatonin (Melatonin 3 Mg Tablet) 6 mg PO BEDTIME PRN PRN Reason: Insomnia Last Admin: 05/21/25 21:05 Dose: 6 mg Documented By: JUANITA Midodrine (Midodrine Hcl 10 Mg Tablet) 10 mg PO TIDWM [facility] Last Admin: 05/23/25 09:26 Dose: Not Given Documented By: NATHAN Non-Admin Reason: Patient Refused Morphine Sulfate (Morphine Sulfate 2 Mg/Ml Cartridge) 2 mg IVPUSH Q3H PRN; Protocol PRN Reason: Pain, Severe (Pain Scale 7-10) Last Admin: 05/20/25 04:14 Dose: 2 mg Documented By: JUSTIN Naloxone HCl (Naloxone Hcl 0.4 Mg/Ml Vial) 0.04 mg IVPUSH Q5M PRN PRN Reason: Excessive sedation or RR < 8 Omeprazole (Omeprazole 20 Mg Capsule.Dr) 20 mg PO BID@0630,1630 [facility] Last Admin: 05/23/25 06:10 Dose: Not Given Documented By: ARTEMIO Non-Admin Reason: Patient Refused Oxycodone HCl (Oxycodone Hcl Immed Release 5 Mg Tablet) 5 mg PO Q4H PRN PRN Reason: Pain, Moderate(Pain Scale 4-6) Last Admin: 05/21/25 21:06 Dose: 5 mg Documented By: JUANITA Silver Sulfadiazine (Silver Sulfadiazine 1 % Cream 20 Gm Tube) 1 appl TOPICAL DAILY PRN; Protocol PRN Reason: with dressings changes Sodium Biphosphate/Sodium Phosphate (Sodium Phosphate,[place]-Dibasic 133 Ml Enema) [address] ONCE PRN PRN Reason: Consult order Last Admin: 05/20/25 10:53 Dose: 133 ml Documented By: FOSTEKFernando Sodium Chloride (0.9 % Sodium Chloride Flush 3 Ml Syringe) 3 ml IVFLUSH QSHIFT [facility] Last Admin: 05/23/25 09:23 Dose: 3 ml Documented By: RICCIAV Sucralfate (Sucralfate 1 Gm Tablet) 1 gm PO BIDAC [facility] Last Admin: 05/23/25 06:04 Dose: 1 gm Documented By: ARTEMIO Labs 05/23/25 07:21 05/23/25 07:21 Labs: Laboratory Results - last 24 hr 05/20/25 05/22/25 05/23/25 06:21 14:57 07:21 MCV 82.3 MCH 25.1 L MCHC 30.5 L RDW 18.6 H Plt Count 72 L MPV 9.7 Absolute Nucleated RBC 0.040 H Nucleated RBC % (auto) 1.1 H PT 20.4 H D INR 1.8 H VBG pH VBG pCO2 VBG pO2 VBG HCO3 VBG O2 Saturation VBG Base Excess Anion Gap 20 Estim Creat Clear Calc 14.5 Estimated GFR 13 Random Glucose 69 Lactic Acid 1.8 Calcium 7.9 L Magnesium 2.0 Total Bilirubin 1.1 H AST 33 ALT 17 Alkaline Phosphatase 102 Troponin I High Sens NT-Pro-B Natriuret Pep 48101.3 H Total Protein 6.5 Total Protein (PEP) 6.7 Albumin 3.1 L Albumin (PEP) 3.0 L Slmkz-4-Viyknalmz 0.5 H Ghauy-7-Srclbqiks 0.5 Vlua-0-Uknprouh 0.5 Copj-9-Cpxzbwbf 0.5 Gamma Globulins 1.7 PEP Interpretation SEE NOTE Vitamin B12 1305 H Folate 6.7 Urine Color Urine Appearance Urine pH Ur Specific [place] Urine Protein Urine Glucose (UA) Urine Ketones Urine Blood Urine Nitrite Ur Leukocyte Esterase Urine RBC Urine WBC Ur Squamous Epith Cells Urine Bacteria Hyaline Casts Urine Yeast Urine Eosinophils % Hep Bs Antigen Negative Hep Bs Antibody NONREACTIVE Hep B Core Total Ab Nonreactive Hepatitis C Ab (EIA) Nonreactive HIV 1&2 Ab/P24 Ag 4thGn Nonreactive Blood Type Crossmatch 05/23/25 05/23/25 05/23/25 07:36 10:03 11:36 MCV MCH MCHC RDW Plt Count MPV Absolute Nucleated RBC Nucleated RBC % (auto) PT INR VBG pH 7.40 VBG pCO2 28 VBG pO2 57 VBG HCO3 17 L VBG O2 Saturation 84.0 VBG Base Excess -5.9 Anion Gap Estim Creat Clear Calc Estimated GFR Random Glucose Lactic Acid Calcium Magnesium Total Bilirubin AST ALT Alkaline Phosphatase Troponin I High Sens 28.1 NT-Pro-B Natriuret Pep Total Protein Total Protein (PEP) Albumin Albumin (PEP) Lgiwu-3-Mwxqoweeu Hxpqc-8-Ruwetgaeg Rvhg-9-Wkjzwdbm Etuc-6-Rnahaokb Gamma Globulins PEP Interpretation Vitamin B12 Folate Urine Color Yellow Urine Appearance Cloudy Urine pH 5.0 Ur Specific [place] 1.015 Urine Protein 30 (1+) H Urine Glucose (UA) Negative Urine Ketones Negative Urine Blood Moderate (2+) H Urine Nitrite Negative Ur Leukocyte Esterase Small (1+) H Urine RBC 11-20 H Urine WBC 0-5 Ur Squamous Epith Cells 0-2 Urine Bacteria None Seen Hyaline Casts 11-20 Urine Yeast Present Urine Eosinophils % 0.0 Hep Bs Antigen Hep Bs Antibody Hep B Core Total Ab Hepatitis C Ab (EIA) HIV 1&2 Ab/P24 Ag 4thGn Blood Type Crossmatch 05/23/25 05/23/25 11:36 11:43 MCV MCH MCHC RDW Plt Count MPV Absolute Nucleated RBC Nucleated RBC % (auto) PT INR VBG pH 7.36 VBG pCO2 30 VBG pO2 65 VBG HCO3 17 L VBG O2 Saturation TNP VBG Base Excess -6.9 Anion Gap Estim Creat Clear Calc Estimated GFR Random Glucose Lactic Acid Calcium Magnesium Total Bilirubin AST ALT Alkaline Phosphatase Troponin I High Sens 27.9 NT-Pro-B Natriuret Pep Total Protein Total Protein (PEP) Albumin Albumin (PEP) Xyjyt-7-Nghrckarn Kteoc-0-Aihpouydt Qeyh-9-Aahyienu Uiwc-9-Tajckuva Gamma Globulins PEP Interpretation Vitamin B12 Folate Urine Color Urine Appearance Urine pH Ur Specific [place] Urine Protein Urine Glucose (UA) Urine Ketones Urine Blood Urine Nitrite Ur Leukocyte Esterase Urine RBC Urine WBC Ur Squamous Epith Cells Urine Bacteria Hyaline Casts Urine Yeast Urine Eosinophils % Hep Bs Antigen Hep Bs Antibody Hep B Core Total Ab Hepatitis C Ab (EIA) HIV 1&2 Ab/P24 Ag 4thGn Blood Type B Positive Crossmatch See Detail Microbiology Microbiology Results: Microbiology 05/22/25 08:54 Blood Culture - Preliminary Blood - Venous No growth after 24 hours. 05/22/25 08:54 Blood Culture - Preliminary Blood - Venous No growth after 24 hours. Assessment and Plan (1) Acute CHF: Status: Acute Plan d6 for 74yo M with HFrEF, AF on apixaban, DM2, HTN, HLD, CAD, CKD3b, and hyperPTH presenting with bilateral leg swelling and pain, blood in the stool admitted for acute/chronic HFrEF, leg wound infection, GI bleed; now hypothermic and pancytopenic KELSEY/CKD3b - Nephrology consulted. Concern for cardiorenal syndrome but at this point he does not appear particularly fluid overloaded. Will hold diuresis and continue to monitor BMP. hypothermia - random cortisol normal; TSH slightly high but free T4 normal; lactate normal; BCx pending - likely due to excess vasodilation and beta-blockade from medications - improving; continue Raoul Hugger acute/chronic HFrEF hypotension - bumetanide on hold due to hypotension; d/c metolazone due to hypotension; monitor I/O, BMP, BNP, Mg, weights - stopped carvedilol due to bradycardia; stopped hydralazine + Isordil due to hypotension + hypothermia - continue midodrine; got albumin 05/22 - Cardiology following. TTE 05/04/25: - Normal left ventricular cavity size. There is mildly increased left ventricular wall thickness. The left ventricular systolic function is mildly decreased. The visually estimated ejection fraction is between 40-45%. - The basal inferoseptal segment is hypokinetic. - Mildly increased right ventricular cavity size. There is moderately decreased right ventricular systolic function. - The left atrium is severely dilated. The right atrium is severely dilated. - Severe pulmonary hypertension is present. - There is a small pericardial effusion chronic AF, bradycardia - slow rate as low as 29 though without symptoms - d/c'ed carvedilol, HR has improved. Pt was probably not compliants as outpt. acute/chronic anemia due to GI bleed - transfused 2u pRBCs with appropriate response in H+H; will give another 1u now - EGD + sigmoidoscopy done 05/[address] Fernandez- showed gastritis, duodenitis, esophagitis; old biliary stent removed; 1 sessile polyp in rectum; internal hemorrhoids - IV-> PO PPI, sucralfate x14d; resumed apixaban 05/21 but will hold for now given anemia + thrombocytopenia bilateral venous stasis ulcers with concern for infection - changed ceftriaxone to linezolid + renally-dosed piperacillin-tazobactam 05/19-, add clindamycin 05/22-, ID consult pending - Wound Care consulted: Bilateral legs - cleanse with saline, apply durafiber ag, cover with ABD pads, hold in place with rolled gauze or stretch netting, change every other day and PRN Buttock - Off Load Pressure with Q2 hr turns and use of pillows - Cleanse with PH balance spray or wipes, pat dry. ?Apply thin layer of barrier cream to affected area.? Apply twice daily and Reapply thin layer PRN after each episode of incontinence. pancytopenia - suspect due to infection but there is question of cirrhosis on prior CT chest but no varices on EGD; B12 normal, HIV negative, SPEP with acute phase reaction CAD/HLD: statin VTE ppx: apixaban dispo: STR eventually In my clinical judgment, the patient requires continued inpatient hospitalization for the following reasons: hypotension, hypothermia Total time managing care of this patient today: 60 minutes. Quality Stroke Does the patient have a stroke diagnosis?: No VTE Prior VTE?: No VTE Risk Level:: Medical - moderate - high VTE Device Contraindication: Treatment Not Indicated VTE Drug Contraindication: N/A - Med Ordered
[2025-05-23] MEDS: Throat Lozenge, Medicated LOZENGE 1 LOZENGE MUCOUS MEM (13:26)
--- NOTE | 2025-05-23 17:46 | HO.HCP ---
Health Care Proxy Invocation Health Care Proxy Declaration: I, Austyn Wilson MD_, on the date cited below, have determined that, Ethan Cristina , lacks the capacity to make or communicate, informed health care decision. This determination is made in accordance with accepted standards of medical judgment and pursuant to [place] 201[place], the [place] Health Care Proxy Law. The cause, nature, extent and probable duration of the patient's inapacity are described below: Cause: delirium, possible uremia Nature: acute Extent: severe Probable Duration of Patient's Incapacity: duration of this hospitalization for now, may need to be revisited upon discharge
[2025-05-23] MEDS: OLANZapine 10 MG VIAL 5 MG IM (22:54)
[2025-05-24] VITALS (7 sets, daily range): BP systolic 110–152; BP diastolic 50–64; PULSE 48–67; RESP 14–20; TEMP 33.8–37.7; O2SAT 93–98
[2025-05-24] MEDS: 0.9 % Sodium Chloride Flush 3 ML SYRINGE IVFLUSH ×3 (01:08→17:02)
--- NOTE | 2025-05-24 07:19 | P.PNIM_ITS ---
Subjective Subjective Date of Service: 05/24/25 Interval History: 74yo M with HFrEF, AF on apixaban, DM2, HTN, HLD, CAD, hyperPTH presenting with bilateral leg swelling and pain, blood in the stool; admitted for acute/chronic HFrEF, leg wound infection, GI bleed. Now hypothermic and pancytopenic., KELSEY on CKD worsening to the point of possibly needing hemodialysis soon, Healthcare proxy invoked by Psychiatry yesterday as of 05/23/2025. Had a [id number] talk with the daughter who is the healthcare proxy on 05/24/2025 and when informed about his necessity to possibly needing hemodialysis or aggressive management, the family-Healthcare proxy-daughter did inform that he lives alone, can not manage home p.o. meds, would not be able to sustain hemodialysis, has spoken to various family members in [place], is aware of her aunt going through hemodialysis and overall having poor quality of life and she did have major concerns about how he would tolerate overall medical and surgical management. Today, in the a.m. at the time of my rounds, the bedside RN and in the presence of tarring machine operator, we had concern about him having micro aspirations on his saliva and he was placed on NPO pending swallow eval. Given that he has guarded prognosis, with KELSEY on CKD, pancytopenia worsening, overall declining health in the past few months as documented extensively-delirium cognitive decline falls inability to eat drink and perform ADLs and screaming at night and daughter said he did not want to live like this and would pull on any tubes on his body even if he were to have a catheter. Given this, the daughter elected to switch his code status to DNR DNI-WINDSHIELD INSTALLER if he were to decline. She deferred hemodialysis. He does have waxing waning hospital-acquired delirium, . Should he were to decompensate, the daughter would want him to have a comfortable life and would like to switch him to WINDSHIELD INSTALLER. The patient is hospice appropriate per my clinical interpretation. She is agreeable to a hospice consult Review of Systems Review of Systems: Yes Unobtainable due to mental condition and Unobtainable due to mental status Physical Exam 2 Exam: Exam: Gen: ill-appearing, intermittent somnolence, coughing HEENT: Pale Lungs: Bilateral crackles right greater than left noted Heart: irregular, no murmurs Abd: soft, non-tender, non-distended Ext: 1+ bilateral leg edema Skin: warm/well-perfused, bilateral venous stasis ulcers with bright-red erythema improving Neuro: alert and oriented, no focal weakness Psych: A&O times 0 Vital Signs: Vital Signs: Last Vital Signs Temp 97 F 05/24/25 03:39 Pulse 67 05/24/25 03:39 Resp 20 05/24/25 03:39 BP 148/58 H 05/24/25 03:39 Pulse Ox 94 05/24/25 03:39 O2 Del Method Room Air 05/24/25 03:39 O2 Flow Rate 1 05/24/25 00:00 BMI result Body Mass Index 25.3 Objective Data Active Medications Acetaminophen (Acetaminophen 325 Mg Tablet) 650 mg PO Q6H PRN PRN Reason: Pain, Mild 1-3,fever,headache Last Admin: 05/23/25 03:40 Dose: 650 mg Documented By: ARTEMIO Apixaban (Apixaban 2.5 Mg Tablet) 2.5 mg PO BID [facility] On Hold: 05/23/25 12:19 Last Admin: 05/23/25 08:32 Dose: Not Given Documented By: NATHAN Non-Admin Reason: Physician Held Med Atorvastatin Calcium (Atorvastatin Calcium 40 Mg Tablet) 40 mg PO DAILY [facility] Last Admin: 05/23/25 09:27 Dose: Not Given Documented By: NATHAN Non-Admin Reason: Patient Refused Benzocaine (Throat Lozenge, Medicated Lozenge) 1 lozenge MUCOUS MEM Q2H PRN PRN Reason: Sore Throat Last Admin: 05/23/25 13:26 Dose: 1 lozenge Documented By: NATHAN Calcitriol (Calcitriol 0.25 Mcg Capsule) 0.25 mcg PO Q48H SHAUNNA Last Admin: 05/23/25 09:27 Dose: Not Given Documented By: NATHAN Non-Admin Reason: Patient Refused Calcium Carbonate (Calcium Carbonate 750 Mg Tab.Chew) 750 mg PO Q4H PRN PRN Reason: Heartburn Last Admin: 05/23/25 10:38 Dose: 750 mg Documented By: NATHAN Clindamycin Phosphate (Cleocin) 600 mg in 50 mls @ 100 mls/hr IV Q8H [facility] Last Infusion: 10/12/25 03:30 Dose: Infused Documented By: ARTEMIO Piperacillin Sod/Tazobactam (Sod 2.25 gm/ Sodium Chloride) 50 mls @ 100 mls/hr IV Q8H [facility] Last Infusion: 05/24/25 01:36 Dose: Infused Documented By: ARTEIMO Linezolid (Linezolid 600 Mg Tablet) 600 mg PO Q12H [facility] Last Admin: 05/24/25 06:18 Dose: 600 mg Documented By: ARTEMIO Magnesium Hydroxide (Milk Of Magnesia 30 Ml Oral.Susp) 30 ml PO DAILY PRN PRN Reason: Constipation Melatonin (Melatonin 3 Mg Tablet) 6 mg PO BEDTIME PRN PRN Reason: Insomnia Last Admin: 05/21/25 21:05 Dose: 6 mg Documented By: JUANITA Midodrine (Midodrine Hcl 2.5 Mg Tablet) 2.5 mg PO TID [facility] Morphine Sulfate (Morphine Sulfate 2 Mg/Ml Cartridge) 2 mg IVPUSH Q3H PRN; Protocol PRN Reason: Pain, Severe (Pain Scale 7-10) Last Admin: 05/20/25 04:14 Dose: 2 mg Documented By: JUSTIN Naloxone HCl (Naloxone Hcl 0.4 Mg/Ml Vial) 0.04 mg IVPUSH Q5M PRN PRN Reason: Excessive sedation or RR < 8 Omeprazole (Omeprazole 20 Mg Capsule.Dr) 20 mg PO BID@0630,1630 [facility] Last Admin: 05/24/25 06:18 Dose: 20 mg Documented By: ARTEMIO Oxycodone HCl (Oxycodone Hcl Immed Release 5 Mg Tablet) 5 mg PO Q4H PRN PRN Reason: Pain, Moderate(Pain Scale 4-6) Last Admin: 05/21/25 21:06 Dose: 5 mg Documented By: JUANITA Silver Sulfadiazine (Silver Sulfadiazine 1 % Cream 20 Gm Tube) 1 appl TOPICAL DAILY PRN; Protocol PRN Reason: with dressings changes Sodium Biphosphate/Sodium Phosphate (Sodium Phosphate,[place]-Dibasic 133 Ml Enema) 133 ml SC ONCE PRN PRN Reason: Consult order Last Admin: 05/20/25 10:53 Dose: 133 ml Documented By: HO.FOSTEKR Sodium Chloride (0.9 % Sodium Chloride Flush 3 Ml Syringe) 3 ml IVFLUSH QSHIFT [facility] Last Admin: 05/24/25 01:08 Dose: 3 ml Documented By: ARTEMIO Sucralfate (Sucralfate 1 Gm Tablet) 1 gm PO BIDAC [facility] Last Admin: 05/24/25 06:18 Dose: 1 gm Documented By: ARTEMIO Labs 05/24/25 07:05 05/24/25 07:05 Labs: Laboratory Results - last 24 hr 05/18/25 05/23/25 05/23/25 15:30 07:21 07:36 MCV 82.3 MCH 25.1 L MCHC 30.5 L RDW 18.6 H Plt Count 72 L MPV 9.7 Absolute Nucleated RBC 0.040 H Nucleated RBC % (auto) 1.1 H PT 20.4 H D INR 1.8 H VBG pH VBG pCO2 VBG pO2 VBG HCO3 VBG O2 Saturation VBG Base Excess Anion Gap 20 Estim Creat Clear Calc 14.5 Estimated GFR 13 Random Glucose 69 Calcium 7.9 L Magnesium 2.0 Total Bilirubin 1.1 H AST 33 ALT 17 Alkaline Phosphatase 102 Troponin I High Sens NT-Pro-B Natriuret Pep 29572.3 H Total Protein 6.5 Albumin 3.1 L Vitamin B12 1305 H Folate 6.7 Urine Color Yellow Urine Appearance Cloudy Urine pH 5.0 Ur Specific [place] 1.015 Urine Protein 30 (1+) H Urine Glucose (UA) Negative Urine Ketones Negative Urine Blood Moderate (2+) H Urine Nitrite Negative Ur Leukocyte Esterase Small (1+) H Urine RBC 11-20 H Urine WBC 0-5 Ur Squamous Epith Cells 0-2 Urine Bacteria None Seen Hyaline Casts 11-20 Urine Yeast Present Urine Eosinophils % 0.0 Hep Bs Antigen Negative Hep Bs Antibody NONREACTIVE Hep B Core Total Ab Nonreactive Hepatitis C Ab (EIA) Nonreactive HIV 1&2 Ab/P24 Ag 4thGn Nonreactive Blood Type Antibody Screen Crossmatch See Detail 05/23/25 05/23/25 05/23/25 10:03 11:36 11:36 MCV MCH MCHC RDW Plt Count MPV Absolute Nucleated RBC Nucleated RBC % (auto) PT INR VBG pH 7.40 VBG pCO2 28 VBG pO2 57 VBG HCO3 17 L VBG O2 Saturation 84.0 VBG Base Excess -5.9 Anion Gap Estim Creat Clear Calc Estimated GFR Random Glucose Calcium Magnesium Total Bilirubin AST ALT Alkaline Phosphatase Troponin I High Sens 28.1 27.9 NT-Pro-B Natriuret Pep Total Protein Albumin Vitamin B12 Folate Urine Color Urine Appearance Urine pH Ur Specific [place] Urine Protein Urine Glucose (UA) Urine Ketones Urine Blood Urine Nitrite Ur Leukocyte Esterase Urine RBC Urine WBC Ur Squamous Epith Cells Urine Bacteria Hyaline Casts Urine Yeast Urine Eosinophils % Hep Bs Antigen Hep Bs Antibody Hep B Core Total Ab Hepatitis C Ab (EIA) HIV 1&2 Ab/P24 Ag 4thGn Blood Type B Positive Antibody Screen NEGATIVE Crossmatch See Detail 05/23/25 11:43 MCV MCH MCHC RDW Plt Count MPV Absolute Nucleated RBC Nucleated RBC % (auto) PT INR VBG pH 7.36 VBG pCO2 30 VBG pO2 65 VBG HCO3 17 L VBG O2 Saturation TNP VBG Base Excess -6.9 Anion Gap Estim Creat Clear Calc Estimated GFR Random Glucose Calcium Magnesium Total Bilirubin AST ALT Alkaline Phosphatase Troponin I High Sens NT-Pro-B Natriuret Pep Total Protein Albumin Vitamin B12 Folate Urine Color Urine Appearance Urine pH Ur Specific [place] Urine Protein Urine Glucose (UA) Urine Ketones Urine Blood Urine Nitrite Ur Leukocyte Esterase Urine RBC Urine WBC Ur Squamous Epith Cells Urine Bacteria Hyaline Casts Urine Yeast Urine Eosinophils % Hep Bs Antigen Hep Bs Antibody Hep B Core Total Ab Hepatitis C Ab (EIA) HIV 1&2 Ab/P24 Ag 4thGn Blood Type Antibody Screen Crossmatch Microbiology Microbiology Results: Microbiology 05/22/25 08:54 Blood Culture - Preliminary Blood - Venous No growth after 24 hours. 05/22/25 08:54 Blood Culture - Preliminary Blood - Venous No growth after 24 hours. Assessment and Plan (1) Acute CHF: Status: Acute Plan d7 for 74yo M with HFrEF, AF on apixaban, DM2, HTN, HLD, CAD, CKD3b, and hyperPTH presenting with bilateral leg swelling and pain, blood in the stool admitted for acute/chronic HFrEF, leg wound infection, GI bleed; now hypothermic and pancytopenic, KELSEY on CKD, nearing hemodialysis Healthcare proxy invoked HCP invoked-please refer to the code status note dated today KELSEY/CKD3b - Nephrology consulted-continues to worsen. Close to requiring hemodialysis. Concern for cardiorenal syndrome but at this point he does not appear particularly fluid overloaded. Will hold diuresis and continue to monitor BMP. hypothermia - random cortisol normal; TSH slightly high but free T4 normal; lactate normal; BCx pending - likely due to excess vasodilation and beta-blockade from medications - improving; continue Raoul Moreno p.r.n.-patient refusing care intermittently-2 days only day he briefly agreed to keep it on acute/chronic HFrEF (40-45%) hypotension resolving Small pericardial effusion on 05/04/2025 TTE - bumetanide on hold due to hypotension; d/c metolazone due to hypotension; monitor I/O, BMP, BNP, Mg, weights - stopped carvedilol due to bradycardia; stopped hydralazine + Isordil due to hypotension + hypothermia - continue midodrine with parameters-can use if SBP less than 90 and hold if SBP greater than 110; got albumin 05/22 - Cardiology following. TTE 05/04/25: - Normal left ventricular cavity size. There is mildly increased left ventricular wall thickness. The left ventricular systolic function is mildly decreased. The visually estimated ejection fraction is between 40-45%. - The basal inferoseptal segment is hypokinetic. - Mildly increased right ventricular cavity size. There is moderately decreased right ventricular systolic function. - The left atrium is severely dilated. The right atrium is severely dilated. - Severe pulmonary hypertension is present. - There is a small pericardial effusion Concern for Micro aspirations This a.m. as of 05/24/2025-patient started having bouts of cough, he is already on maximal antibiotics hence likely secondary to microaspiration of saliva NPO till swallow eval Meds to be given IV chronic AF, bradycardia - slow rate as low as 29 though without symptoms - d/c'ed carvedilol, HR has improved. Pt was probably not compliants as outpt. acute/chronic anemia due to GI bleed - transfused 3u pRBCs with appropriate response in H+H till date - EGD + sigmoidoscopy done 05/[address] Fernandez- showed gastritis, duodenitis, esophagitis; old biliary stent removed; 1 sessile polyp in rectum; internal hemorrhoids - IV-> PO PPI, sucralfate x14d; resumed apixaban 05/21 but will hold for now given anemia + thrombocytopenia bilateral venous stasis ulcers with concern for infection - changed ceftriaxone to linezolid + renally-dosed piperacillin-tazobactam 05/19- , add clindamycin 05/22-, ID consult pending - Wound Care consulted: Bilateral legs - cleanse with saline, apply durafiber ag, cover with ABD pads, hold in place with rolled gauze or stretch netting, change every other day and PRN Buttock - Off Load Pressure with Q2 hr turns and use of pillows - Cleanse with PH balance spray or wipes, pat dry. ?Apply thin layer of barrier cream to affected area.? Apply twice daily and Reapply thin layer PRN after each episode of incontinence. pancytopenia - suspect due to infection but there is question of cirrhosis on prior CT chest but no varices on EGD; B12 normal, HIV negative, SPEP with acute phase reaction CAD/HLD: statin VTE ppx: apixaban dispo: STR eventually HCP invoked Code status DNR DNI Please call family, daughter before escalating care In my clinical judgment, the patient requires continued inpatient hospitalization for the following reasons: hypotension, hypothermia, KELSEY on CKD nearing dialysis, swallow eval Total time managing care of this patient today: 60 minutes. Quality Stroke Does the patient have a stroke diagnosis?: No VTE Prior VTE?: No VTE Risk Level:: Medical - moderate - high VTE Device Contraindication: Treatment Not Indicated VTE Drug Contraindication: N/A - Med Ordered
[2025-05-24 07:45] LABS: Hematocrit 30.7 % (42.0-52.0); Mean Corpuscular HGB Conc 30.9 g/dl (31.0-36.0); Mean Corpuscular Hemoglobin 25.6 pg (27.0-33.0); Mean Corpuscular Volume 82.7 fL (80.0-98.0); NRBC Abs Auto 0.020 X10*3/uL (0.0-0.012); NRBC Pct Auto 0.5 /100WBC (0.0-0.2); Red Blood Count 3.71 X10*6/uL (4.60-5.80); White Blood Count 4.4 X10*3/uL (4.8-10.8)
[2025-05-24 07:52] LABS: Platelet Count 76 X10*3/uL (160-400)
[2025-05-24 07:54] LABS: Hemoglobin 9.5 g/dl (14.0-18.0)
[2025-05-24 08:02] LABS: Alanine Aminotransferase 17 U/L (0-40); Albumin Level 3.4 g/dL (3.5-5.0); Alkaline Phosphatase 108 U/L (39-117); Anion Gap 23 (12-20); Aspartate Amino Transferase 36 U/L (5-37); Calcium 8.5 mg/dL (8.4-10.2); Carbon Dioxide 16 mmol/L (22-29); Chloride 104 mmol/L (96-108); Creatinine Clr Calc Pharmacy 12.9; Estimated Glomerular Filt Rate 11; Magnesium 2.1 mg/dL (1.6-2.6); Potassium 4.5 mmol/L (3.3-5.1); Sodium 138 mmol/L (135-145); Total Protein 7.1 g/dL (6.5-8.0)
[2025-05-24 08:08] LABS: NT Pro B Type Natriuretic Pept 17476.4 pg/mL (<300)
[2025-05-24 08:10] LABS: Blood Urea Nitrogen 135 mg/dL (9-16)
[2025-05-24] MEDS: Silver Sulfadiazine 1 % Cream 20 GM TUBE 1 APPL TOPICAL (09:41)
--- NOTE | 2025-05-24 11:00 | PC.NURSE ---
Addendum entered by Cristiane Griggs RN 05/24/25 18:32: pt desat to mid 86% while resting. This RN attempting to place NC on pt, pt stated no no i dont want it and push this RN hands away. this RN attempted to educate pt on importance but pt was falling back asleep. pt does not appear in resp distress. RR even and unlabored. Addendum entered by Cristiane Griggs RN 05/24/25 16:03: pt agreeable to participate in bedside swallow eval wile HCP at bedside. pt failed eval Addendum entered by Cristiane Griggs RN 05/24/25 15:50: 1400 pt refusing bedside swallow eval this RN will reattempt when HCP visits. Addendum entered by Cristiane Griggs RN 05/24/25 15:25: Dr ventura at bedside with pt and HCP discussing goals of care. MOLST signed Addendum entered by Cristiane Griggs RN 05/24/25 15:21: 1200 pt refusing isaura hugger, stating no no no i dont want it . educted pt on importance of isaura hugger, pt unable to comprehend. Dr ventura aware. Original Note: pt transferred to recliner chair with walker, 1-2 a for transfers.
--- NOTE | 2025-05-24 11:14 | HO.SKINPHOTO ---
Location: [facility] Location: [facility]
--- NOTE | 2025-05-24 12:04 | PM.PNCARD ---
Subjective Subjective Date of Service: 05/24/25 Principal diagnosis: CHF, chronic AFib. Interval history: Patient's body temperature is improving. Heart rate and blood pressures improved. Patient looks better and he said he feels better. However renal functions are worsened. Currently off all medications including the drip. Received 1 unit of packed RBC yesterday. Review of Systems Constitutional: Reports weakness Cardiovascular: Denies chest pain, Denies rapid heart rate, Denies lightheadedness, Denies palpitations and Denies dyspnea Respiratory: Denies dyspnea Gastrointestinal: Denies no additional gastrointestinal complaints Skin/Breast: Denies system reviewed and no additional complaints, except as docu Reports weakness Endocrine: Denies palpitations Physical Exam Vital Signs: Last Vital Signs Temp 96.3 F L 05/24/25 11:18 Pulse 59 05/24/25 11:18 Resp 20 05/24/25 11:18 BP 122/60 05/24/25 11:18 Pulse Ox 93 05/24/25 11:18 O2 Del Method Room Air 05/24/25 11:18 O2 Flow Rate 1 05/24/25 07:20 BMI result Body Mass Index 25.3 Const General: cooperative, no acute distress, alert and awake Nutritional Appearance: average body habitus Orientation/consciousness: patient oriented x3 Neck Neck: Yes trachea midline and Yes supple Resp Effort & Inspection: decreased respiratory effort Auscultation: no rales and no wheezes Cardio Rate: bradycardic Rhythm: abnormal rhythm irregularly irregular Heart sounds: S1 normal heart sound present, S2 normal heart sound present, no click and no gallops GI Auscultation: normal bowel sounds Skin General skin exam: no rashes or lesions noted Neuro General: patient oriented x3 and no focal motor deficits Extrem General: No clubbing, No cyanosis and Yes edema Objective Labs and Meds 05/24/25 07:05 05/24/25 07:05 Lab results: Laboratory Results - last 24 hr 05/18/25 05/23/25 05/23/25 15:30 11:36 11:36 WBC RBC Hgb Hct MCV MCH MCHC RDW Plt Count MPV Absolute Nucleated RBC Nucleated RBC % (auto) Sodium Potassium Chloride Carbon Dioxide Anion Gap BUN Creatinine Estim Creat Clear Calc Estimated GFR Random Glucose Calcium Magnesium Total Bilirubin AST ALT Alkaline Phosphatase Troponin I High Sens 28.1 27.9 NT-Pro-B Natriuret Pep Total Protein Albumin Blood Type B Positive Antibody Screen NEGATIVE Crossmatch See Detail See Detail 05/24/25 07:05 WBC 4.4 L RBC 3.71 L Hgb 9.5 L D Hct 30.7 L MCV 82.7 MCH 25.6 L MCHC 30.9 L RDW 18.6 H Plt Count 76 L MPV 9.8 Absolute Nucleated RBC 0.020 H Nucleated RBC % (auto) 0.5 H Sodium 138 Potassium 4.5 Chloride 104 Carbon Dioxide 16 L Anion Gap 23 H BUN 135 H Creatinine 5.15 H* Estim Creat Clear Calc 12.9 Estimated GFR 11 Random Glucose 65 Calcium 8.5 D Magnesium 2.1 Total Bilirubin 1.3 H AST 36 ALT 17 Alkaline Phosphatase 108 Troponin I High Sens NT-Pro-B Natriuret Pep 56773.4 H Total Protein 7.1 Albumin 3.4 L Blood Type Antibody Screen Crossmatch Progress Note: A&P Assessment and plan (1) Congestive heart failure: Status: Acute Assessment and Plan: Clinically not in acute pulmonary edema. His course has been complicated with a acute renal failure most likely related to ATN from poor stroke volume/cardiac output related to medication use. Clinically has improved although renal function still has got worse. However he urine output has started to molded goods spot picker. Hope that the CARMINE and phase will resolve in his kidney functions will start getting better. Hold off all medications for now and continue monitor his hemodynamics closely. Hold off on diuretic therapy at this point in time unless he develops significant respiratory distress. Being followed closely by Nephrology as well. Overall prognosis is guarded. (2) Chronic atrial fibrillation: Status: Acute Assessment and Plan: Chronic atrial fibrillation with normalized heart rate after withdrawal of carvedilol therapy. This puts in question in his use of carvedilol at home most likely not. Hold off on any rate lowering medications heart rate has stable at this point time. Continue full disclosure cardiac monitoring. Hold off on oral anticoagulation therapy given worsening kidney function with poor clearance as well as recent GI bleed. Continue monitor hematocrit closely. Will follow with you Time Spent With Patient Time: Total time managing care of this patient today ____ minutes. Progress Note: Quality Stroke Does the patient have a stroke diagnosis?: No Procedures Date of Service Date of Service: 05/24/25
--- NOTE | 2025-05-24 15:56 | W.MHC.ACPN ---
Advanced Care Planning Note Advanced Care Planning Note Discussed with: family member(s) (Daughter, healthcare proxy) Time spent (in minutes): 35 Narrative: 74yo M with HFrEF, AF on apixaban, DM2, HTN, HLD, CAD, hyperPTH presenting with bilateral leg swelling and pain, blood in the stool; admitted for acute/chronic HFrEF, leg wound infection, GI bleed. Now hypothermic and pancytopenic., KELSEY on CKD worsening to the point of possibly needing hemodialysis soon, Healthcare proxy invoked by Psychiatry yesterday as of 05/23/2025. Had a [id number] talk with the daughter who is the healthcare proxy on 05/24/2025 and when informed about his necessity to possibly needing hemodialysis or aggressive management, the family-Healthcare proxy-daughter did inform that he lives alone, can not manage home p.o. meds, would not be able to sustain hemodialysis, has spoken to various family members in [place], is aware of her aunt going through hemodialysis and overall having poor quality of life and she did have major concerns about how he would tolerate overall medical and surgical management. Today, in the a.m. at the time of my rounds, the bedside RN and in the presence of diplomatic interpreter/translator, we had concern about him having micro aspirations on his saliva and he was placed on NPO pending swallow eval. Given that he has guarded prognosis, with KELSEY on CKD, pancytopenia worsening, overall declining health in the past few months as documented extensively-delirium cognitive decline falls inability to eat drink and perform ADLs and screaming at night and daughter said he did not want to live like this and would pull on any tubes on his body even if he were to have a catheter. Given this, the daughter elected to switch his code status to DNR DNI-SEWER LINE PHOTO INSPECTOR if he were to decline. She deferred hemodialysis. He does have waxing waning hospital-acquired delirium, sundowning. Should he were to decompensate, the daughter would want him to have a comfortable life and would like to switch him to SEWER LINE PHOTO INSPECTOR. The patient is hospice appropriate per my clinical interpretation. She is agreeable to a hospice consult Problems Discussed (1) Congestive heart failure: (2) Chronic atrial fibrillation:
[2025-05-25] VITALS (7 sets, daily range): BP systolic 116–164; BP diastolic 60–82; PULSE 64–76; RESP 16–20; TEMP 34.5–35.5; O2SAT 93–95
[2025-05-25] MEDS: 0.9 % Sodium Chloride Flush 3 ML SYRINGE IVFLUSH ×2 (01:15→09:03)
[2025-05-25 06:36] LABS: MANUAL DIFF FLAG NO
[2025-05-25 06:39] LABS: Hematocrit 29.9 % (42.0-52.0); Hemoglobin 9.2 g/dl (14.0-18.0); Imm Gran Abs Auto 0.03 X10*3/uL (0.00-0.03); Imm Gran Pct Auto 0.8 % (0.0-0.4); Lymphocytes Absolute Auto 0.5 X10*3/uL (1.2-4.9); Mean Corpuscular HGB Conc 30.8 g/dl (31.0-36.0); Mean Corpuscular Hemoglobin 25.6 pg (27.0-33.0); Mean Corpuscular Volume 83.3 fL (80.0-98.0); NRBC Abs Auto 0.030 X10*3/uL (0.0-0.012); NRBC Pct Auto 0.8 /100WBC (0.0-0.2); Red Blood Count 3.59 X10*6/uL (4.60-5.80); White Blood Count 3.7 X10*3/uL (4.8-10.8)
[2025-05-25 06:40] LABS: Platelet Count 65 X10*3/uL (160-400)
[2025-05-25 06:57] LABS: Alanine Aminotransferase 15 U/L (0-40); Albumin Level 3.2 g/dL (3.5-5.0); Alkaline Phosphatase 110 U/L (39-117); Anion Gap 21 (12-20); Aspartate Amino Transferase 34 U/L (5-37); Calcium 8.8 mg/dL (8.4-10.2); Carbon Dioxide 17 mmol/L (22-29); Chloride 108 mmol/L (96-108); Creatinine Clr Calc Pharmacy 13.2; Estimated Glomerular Filt Rate 11; Magnesium 2.3 mg/dL (1.6-2.6); Potassium 4.4 mmol/L (3.3-5.1); Sodium 142 mmol/L (135-145); Total Protein 7.1 g/dL (6.5-8.0)
[2025-05-25 07:09] LABS: Blood Urea Nitrogen 128 mg/dL (9-16)
--- NOTE | 2025-05-25 07:18 | P.PNIM_ITS ---
Subjective Subjective Date of Service: 05/25/25 Interval History: Patient failed swallow eval Strict NPO Awaiting hospice and SNF placement Guarded prognosis Family aware Physical Exam 2 Exam: Exam: Gen: ill-appearing, intermittent somnolence, coughing HEENT: Pale Lungs: Bilateral crackles right greater than left noted Heart: irregular, no murmurs Abd: soft, non-tender, non-distended Ext: 1+ bilateral leg edema Skin: warm/well-perfused, bilateral venous stasis ulcers with bright-red erythema improving Neuro: alert and oriented, no focal weakness Psych: A&O times 0 Vital Signs: Vital Signs: Last Vital Signs Temp 95.8 F L 05/25/25 07:06 Pulse 76 05/25/25 07:06 Resp 18 05/25/25 07:06 BP 116/70 05/25/25 07:06 Pulse Ox 93 05/25/25 07:06 O2 Del Method Nasal Cannula 05/25/25 07:06 O2 Flow Rate 1 05/25/25 07:06 BMI result Body Mass Index 25.3 Objective Data Active Medications Acetaminophen (Acetaminophen 325 Mg Tablet) 650 mg PO Q6H PRN PRN Reason: Pain, Mild 1-3,fever,headache Last Admin: 05/23/25 03:40 Dose: 650 mg Documented By: ARTEMIO Apixaban (Apixaban 2.5 Mg Tablet) 2.5 mg PO BID SHAUNNA On Hold: 05/23/25 12:19 Last Admin: 05/23/25 08:32 Dose: Not Given Documented By: NATHAN Non-Admin Reason: Physician Held Med Atorvastatin Calcium (Atorvastatin Calcium 40 Mg Tablet) 40 mg PO DAILY [facility] Last Admin: 05/24/25 09:37 Dose: 40 mg Documented By: NATHAN Benzocaine (Throat Lozenge, Medicated Lozenge) 1 lozenge MUCOUS MEM Q2H PRN PRN Reason: Sore Throat Last Admin: 05/23/25 13:26 Dose: 1 lozenge Documented By: NATHAN Calcitriol (Calcitriol 0.25 Mcg Capsule) 0.25 mcg PO Q48H SHAUNNA Last Admin: 05/23/25 09:27 Dose: Not Given Documented By: NATHAN Non-Admin Reason: Patient Refused Calcium Carbonate (Calcium Carbonate 750 Mg Tab.Chew) 750 mg PO Q4H PRN PRN Reason: Heartburn Last Admin: 05/23/25 10:38 Dose: 750 mg Documented By: NATHAN Furosemide (Furosemide 40 Mg Tablet) 40 mg PO BID@0900,1800 [facility]; Protocol Last Admin: 05/24/25 15:48 Dose: Not Given Documented By: NATHAN Non-Admin Reason: Physician Held Med Clindamycin Phosphate (Cleocin) 600 mg in 50 mls @ 100 mls/hr IV Q8H [facility] Last Infusion: 05/25/25 04:23 Dose: Infused Documented By: ARTEMIO Piperacillin Sod/Tazobactam (Sod 2.25 gm/ Sodium Chloride) 50 mls @ 100 mls/hr IV Q8H [facility] Last Infusion: 05/25/25 01:50 Dose: Infused Documented By: ARTEMIO Linezolid (Linezolid 600 Mg Tablet) 600 mg PO Q12H [facility] Last Admin: 05/25/25 05:35 Dose: Not Given Documented By: ARTEMIO Non-Admin Reason: NPO Magnesium Hydroxide (Milk Of Magnesia 30 Ml Oral.Susp) 30 ml PO DAILY PRN PRN Reason: Constipation Melatonin (Melatonin 3 Mg Tablet) 6 mg PO BEDTIME PRN PRN Reason: Insomnia Last Admin: 05/21/25 21:05 Dose: 6 mg Documented By: JUANITA Midodrine (Midodrine Hcl 2.5 Mg Tablet) 2.5 mg PO TID [facility] Last Admin: 05/24/25 21:14 Dose: Not Given Documented By: ARTEMIO Non-Admin Reason: NPO Naloxone HCl (Naloxone Hcl 0.4 Mg/Ml Vial) 0.04 mg IVPUSH Q5M PRN PRN Reason: Excessive sedation or RR < 8 Omeprazole (Omeprazole 20 Mg Capsule.Dr) 20 mg PO BID@0630,1630 [facility] Last Admin: 05/25/25 05:36 Dose: Not Given Documented By: ARTEMIO Non-Admin Reason: NPO Oxycodone HCl (Oxycodone Hcl Immed Release 5 Mg Tablet) 5 mg PO Q4H PRN PRN Reason: Pain, Moderate(Pain Scale 4-6) Last Admin: 05/21/25 21:06 Dose: 5 mg Documented By: JUANITA Silver Sulfadiazine (Silver Sulfadiazine 1 % Cream 20 Gm Tube) 1 appl TOPICAL DAILY PRN; Protocol PRN Reason: with dressings changes Last Admin: 05/24/25 09:41 Dose: 1 appl Documented By: NATHAN Sodium Biphosphate/Sodium Phosphate (Sodium Phosphate,[place]-Dibasic 133 Ml Enema) 133 ml ND ONCE PRN PRN Reason: Consult order Last Admin: 05/20/25 10:53 Dose: 133 ml Documented By: BELINDA Sodium Chloride (0.9 % Sodium Chloride Flush 3 Ml Syringe) 3 ml IVFLUSH QSHIFT [facility] Last Admin: 05/25/25 01:15 Dose: 3 ml Documented By: ARTEMIO Sucralfate (Sucralfate 1 Gm Tablet) 1 gm PO BIDAC [facility] Last Admin: 05/24/25 15:48 Dose: Not Given Documented By: NATHAN Non-Admin Reason: NPO Labs 05/25/25 06:20 05/25/25 06:20 Labs: Laboratory Results - last 24 hr 05/24/25 05/25/25 07:05 06:20 MCV 82.7 83.3 MCH 25.6 L 25.6 L MCHC 30.9 L 30.8 L RDW 18.6 H 18.7 H Plt Count 76 L 65 L MPV 9.8 10.0 Immature Gran % (Auto) 0.8 H Neut % (Auto) 76.6 H Lymph % (Auto) 12.4 L [place] % (Auto) 8.6 Eos % (Auto) 1.6 Baso % (Auto) 0.0 Lymph # (Auto) 0.5 L [place] # (Auto) 0.3 Eos # (Auto) 0.1 Baso # (Auto) 0.0 Abs Immat Gran (auto) 0.03 Absolute Neuts (auto) 2.9 Absolute Nucleated RBC 0.020 H 0.030 H Nucleated RBC % (auto) 0.5 H 0.8 H Anion Gap 23 H 21 H Estim Creat Clear Calc 12.9 13.2 Estimated GFR 11 11 Random Glucose 65 64 Calcium 8.5 D 8.8 Magnesium 2.1 2.3 Total Bilirubin 1.3 H 1.1 H AST 36 34 ALT 17 15 Alkaline Phosphatase 108 110 NT-Pro-B Natriuret Pep 67657.4 H Total Protein 7.1 7.1 Albumin 3.4 L 3.2 L Microbiology Microbiology Results: Microbiology 05/22/25 08:54 Blood Culture - Preliminary Blood - Venous No growth after 48 hours. 05/22/25 08:54 Blood Culture - Preliminary Blood - Venous No growth after 48 hours. Assessment and Plan (1) Acute CHF: Status: Acute Plan d7 for 74yo M with HFrEF, AF on apixaban, DM2, HTN, HLD, CAD, CKD3b, and hyperPTH presenting with bilateral leg swelling and pain, blood in the stool admitted for acute/chronic HFrEF, leg wound infection, GI bleed; now hypothermic and pancytopenic, KELSEY on CKD, nearing hemodialysis Healthcare proxy invoked HCP invoked-please refer to the code status note KELSEY/CKD3b - Nephrology consulted-continues to worsen. Close to requiring hemodialysis. Concern for cardiorenal syndrome but at this point he does not appear particularly fluid overloaded. Will hold diuresis and continue to monitor BMP. hypothermia likely autonomic dysfunction-refusing care with a Raoul Lambertogger, patient already on maximum antibiotics for sepsis Workup for autonomic dysfunction was unremarkable - likely due to excess vasodilation and beta-blockade from medications - improving; continue Raoul Hugger p.r.n.-patient refusing care intermittently-2 days only day he briefly agreed to keep it on acute/chronic HFrEF (40-45%) holding home meds given hemodynamics hypotension hypotension resolving Small pericardial effusion on 05/04/2025 TTE - bumetanide on hold due to hypotension; d/c metolazone due to hypotension; monitor I/O, BMP, BNP, Mg, weights - stopped carvedilol due to bradycardia; stopped hydralazine + Isordil due to hypotension + hypothermia - continue midodrine with parameters-can use if SBP less than 90 and hold if SBP greater than 110; got albumin 05/22 - Cardiology following. TTE 05/04/25: - Normal left ventricular cavity size. There is mildly increased left ventricular wall thickness. The left ventricular systolic function is mildly decreased. The visually estimated ejection fraction is between 40-45%. - The basal inferoseptal segment is hypokinetic. - Mildly increased right ventricular cavity size. There is moderately decreased right ventricular systolic function. - The left atrium is severely dilated. The right atrium is severely dilated. - Severe pulmonary hypertension is present. - There is a small pericardial effusion Continues to have significant aspirations-patient failed swallow eval likely micro aspirations Strict NPO Currently family leaning towards MANAGER TRANSPORTATION with SNF hospice placement chronic AF, bradycardia - slow rate as low as 29 though without symptoms - d/c'ed carvedilol, HR has improved. Pt was probably not compliants as outpt. acute/chronic anemia due to GI bleed - transfused 3u pRBCs with appropriate response in H+H till date - EGD + sigmoidoscopy done 05/[address] Fernandez- showed gastritis, duodenitis, esophagitis; old biliary stent removed; 1 sessile polyp in rectum; internal hemorrhoids - IV-> PO PPI, sucralfate x14d; resumed apixaban 05/21 but will hold for now given anemia + thrombocytopenia bilateral venous stasis ulcers with concern for infection - changed ceftriaxone to linezolid + renally-dosed piperacillin-tazobactam 05/19- , add clindamycin 05/22-, ID consult pending - Wound Care consulted: Bilateral legs - cleanse with saline, apply durafiber ag, cover with ABD pads, hold in place with rolled gauze or stretch netting, change every other day and PRN Buttock - Off Load Pressure with Q2 hr turns and use of pillows - Cleanse with PH balance spray or wipes, pat dry. ?Apply thin layer of barrier cream to affected area.? Apply twice daily and Reapply thin layer PRN after each episode of incontinence. pancytopenia - suspect due to infection but there is question of cirrhosis on prior CT chest but no varices on EGD; B12 normal, HIV negative, SPEP with acute phase reaction CAD/HLD: statin VTE ppx: apixaban dispo: STR eventually HCP invoked Code status DNR DNI Please call family, daughter before escalating care In my clinical judgment, the patient requires continued inpatient hospitalization for the following reasons: hypotension, hypothermia, KELSEY on CKD nearing dialysis, further swallow eval, Family leaning towards hospice placement SNF Total time managing care of this patient today: 60 minutes. Quality Stroke Does the patient have a stroke diagnosis?: No VTE Prior VTE?: No VTE Risk Level:: Medical - moderate - high VTE Device Contraindication: Treatment Not Indicated VTE Drug Contraindication: N/A - Med Ordered
[2025-05-25] MEDS: Sodium Bicarbonate 8.4% 50 MEQ in Dextrose 5 % 950 ML IV (09:03)
--- NOTE | 2025-05-25 13:17 | MHC.SL.SWA ---
Speech Pathologist Impression: Risk of Aspiration, Pharyngeal Dysphagia Dysphasia Diet Status: NO change, continue NPO Liquid Consistency and Strategies for Safe Swallow: Liquid Intake Recommendation: NPO Solid Food Consistency: Dietary Recommendations: NPO Oral Medication Intake: NPO Please contact the pharmacy regarding appropriate crushable or liquid drug formulations that are available whenever modified delivery is recommended. Supervision While Eating and Drinking for Safe Swallow: PO with ASSURANCE OFFICER Recommendation for Speech: Inpatient Speech Therapy Modified Barium Swallow Study - Inpatient Comment: ASSURANCE OFFICER to re-evaluate tomorrow a.m. Frequency/Duration: Date Range for Service Req: Timeline to reassess: Business Process Engineer Clinican/Clinical Fellow: No Supervisory Statement: I have reviewed and agree with the student/clinical fellow's documentation: N/A Speech Language Pathologist: Subha Mcallister M.A., CCC-ASSURANCE OFFICER
[2025-05-26] VITALS (7 sets, daily range): BP systolic 146–164; BP diastolic 72–78; PULSE 66–108; RESP 12–22; TEMP 35.6–36.3; O2SAT 90–96
[2025-05-26 01:16] LABS: Appearance Urine Clear; Glucose Urine UA Negative (Negative); PH 6.0 (5.0-9.0); Specific Gravity - Urine 1.015 (1.005-1.025); UMIC TRIGGER UACC YES
[2025-05-26 02:05] LABS: UACC Culture Trigger YES
[2025-05-26 06:33] LABS: MANUAL DIFF FLAG NO
[2025-05-26 06:36] LABS: Hematocrit 30.1 % (42.0-52.0); Hemoglobin 9.2 g/dl (14.0-18.0); Imm Gran Abs Auto 0.03 X10*3/uL (0.00-0.03); Imm Gran Pct Auto 0.8 % (0.0-0.4); Lymphocytes Absolute Auto 0.4 X10*3/uL (1.2-4.9); Mean Corpuscular HGB Conc 30.6 g/dl (31.0-36.0); Mean Corpuscular Hemoglobin 25.6 pg (27.0-33.0); Mean Corpuscular Volume 83.6 fL (80.0-98.0); NRBC Abs Auto 0.030 X10*3/uL (0.0-0.012); NRBC Pct Auto 0.8 /100WBC (0.0-0.2); Red Blood Count 3.60 X10*6/uL (4.60-5.80); White Blood Count 3.7 X10*3/uL (4.8-10.8)
[2025-05-26 06:42] LABS: Platelet Count 54 X10*3/uL (160-400)
[2025-05-26 06:58] LABS: Alanine Aminotransferase 17 U/L (0-40); Albumin Level 3.2 g/dL (3.5-5.0); Alkaline Phosphatase 111 U/L (39-117); Anion Gap 19 (12-20); Aspartate Amino Transferase 34 U/L (5-37); Blood Urea Nitrogen 118 mg/dL (9-16); Calcium 8.8 mg/dL (8.4-10.2); Carbon Dioxide 18 mmol/L (22-29); Chloride 111 mmol/L (96-108); Creatinine Clr Calc Pharmacy 14.9; Estimated Glomerular Filt Rate 13; Magnesium 2.1 mg/dL (1.6-2.6); Potassium 3.9 mmol/L (3.3-5.1); Sodium 144 mmol/L (135-145); Total Protein 7.1 g/dL (6.5-8.0)
--- NOTE | 2025-05-26 07:22 | HO.PM.IMPN ---
Subjective Subjective Date of Service: 05/26/25 Interval History: Patient apparently called the daughter overnight multiple times even after midnight asking ?wire then not giving me food? Patient unable to be redirected despite multiple redirection by daughter explaining why he is not being given food as he is actively aspirating and unable to tolerate any p.o. intake I spoke to the patient's daughter Esha over the phone and informed her about his multiple recurrent aspirations and he was transitioned to comfort care so that he can have pleasure diet. His code status changed to DIESEL TECHNICIAN. And diet advanced. Review of Systems Review of Systems: Yes Unobtainable due to mental condition and Unobtainable due to mental status Physical Exam Exam: Exam: Gen: ill-appearing, intermittent somnolence, coughing HEENT: Pale Lungs: Bilateral crackles right greater than left noted Heart: irregular, no murmurs Abd: soft, non-tender, non-distended Ext: 1+ bilateral leg edema Skin: warm/well-perfused, bilateral venous stasis ulcers with bright-red erythema improving Neuro: alert and oriented, no focal weakness Psych: A&O times 0 Vital Signs: Vital Signs: Last Vital Signs Temp 96.5 F L 05/26/25 03:34 Pulse 77 05/26/25 03:34 Resp 16 05/26/25 03:34 BP 146/75 H 05/26/25 03:34 Pulse Ox 90 L 05/26/25 03:34 O2 Del Method Room Air 05/26/25 03:34 O2 Flow Rate 2 05/26/25 00:00 BMI result Body Mass Index 25.3 Objective Data Active Medications Acetaminophen (Acetaminophen 325 Mg Tablet) 650 mg PO Q6H PRN PRN Reason: Pain, Mild 1-3,fever,headache Last Admin: 05/23/25 03:40 Dose: 650 mg Documented By: ARTEMIO Apixaban (Apixaban 2.5 Mg Tablet) 2.5 mg PO BID REPLACED BY [facility] On Hold: 05/23/25 12:19 Last Admin: 05/23/25 08:32 Dose: Not Given Documented By: NATHAN Non-Admin Reason: Physician Held Med Atorvastatin Calcium (Atorvastatin Calcium 40 Mg Tablet) 40 mg PO DAILY REPLACED BY [facility] Last Admin: 05/25/25 09:07 Dose: Not Given Documented By: DRU Non-Admin Reason: NPO Benzocaine (Throat Lozenge, Medicated Lozenge) 1 lozenge MUCOUS MEM Q2H PRN PRN Reason: Sore Throat Last Admin: 05/23/25 13:26 Dose: 1 lozenge Documented By: NATHAN Calcitriol (Calcitriol 0.25 Mcg Capsule) 0.25 mcg PO Q48H REPLACED BY [facility] Last Admin: 05/25/25 09:08 Dose: Not Given Documented By: DRU Non-Admin Reason: NPO Calcium Carbonate (Calcium Carbonate 750 Mg Tab.Chew) 750 mg PO Q4H PRN PRN Reason: Heartburn Last Admin: 05/23/25 10:38 Dose: 750 mg Documented By: NATHAN Furosemide (Furosemide 40 Mg Tablet) 40 mg PO BID@0900,1800 REPLACED BY [facility]; Protocol Last Admin: 05/25/25 17:18 Dose: Not Given Documented By: DRU Non-Admin Reason: Physician Held Med Clindamycin Phosphate (Cleocin) 600 mg in 50 mls @ 100 mls/hr IV Q8H REPLACED BY [facility] Last Infusion: 05/26/25 03:57 Dose: Infused Documented By: KIRBY Piperacillin Sod/Tazobactam (Sod 2.25 gm/ Sodium Chloride) 50 mls @ 100 mls/hr IV Q8H REPLACED BY [facility] Last Infusion: 05/26/25 01:45 Dose: Infused Documented By: KIRBY Linezolid (Linezolid 600 Mg Tablet) 600 mg PO Q12H REPLACED BY [facility] Last Admin: 05/26/25 04:31 Dose: Not Given Documented By: KIRBY Non-Admin Reason: NPO Magnesium Hydroxide (Milk Of Magnesia 30 Ml Oral.Susp) 30 ml PO DAILY PRN PRN Reason: Constipation Melatonin (Melatonin 3 Mg Tablet) 6 mg PO BEDTIME PRN PRN Reason: Insomnia Last Admin: 05/21/25 21:05 Dose: 6 mg Documented By: JUANITA Midodrine (Midodrine Hcl 2.5 Mg Tablet) 2.5 mg PO TID REPLACED BY [facility] Last Admin: 05/25/25 19:51 Dose: Not Given Documented By: KIRBY Non-Admin Reason: NPO Naloxone HCl (Naloxone Hcl 0.4 Mg/Ml Vial) 0.04 mg IVPUSH Q5M PRN PRN Reason: Excessive sedation or RR < 8 Omeprazole (Omeprazole 20 Mg Capsule.Dr) 20 mg PO BID@0630,1630 REPLACED BY [facility] Last Admin: 05/26/25 04:31 Dose: Not Given Documented By: KIRBY Non-Admin Reason: NPO Oxycodone HCl (Oxycodone Hcl Immed Release 5 Mg Tablet) 5 mg PO Q4H PRN PRN Reason: Pain, Moderate(Pain Scale 4-6) Last Admin: 05/21/25 21:06 Dose: 5 mg Documented By: JUANITA Silver Sulfadiazine (Silver Sulfadiazine 1 % Cream 20 Gm Tube) 1 appl TOPICAL DAILY PRN; Protocol PRN Reason: with dressings changes Last Admin: 05/24/25 09:41 Dose: 1 appl Documented By: ZANDERCISABA Sodium Biphosphate/Sodium Phosphate (Sodium Phosphate,[place]-Dibasic 133 Ml Enema) 133 ml OR ONCE PRN PRN Reason: Consult order Last Admin: 05/20/25 10:53 Dose: 133 ml Documented By: FOSTEKFernando Sodium Chloride (0.9 % Sodium Chloride Flush 3 Ml Syringe) 3 ml IVFLUSH QSHIFT REPLACED BY [facility] Last Admin: 05/25/25 23:40 Dose: Not Given Documented By: KIRBY Non-Admin Reason: IV Running Sucralfate (Sucralfate 1 Gm Tablet) 1 gm PO BIDAC REPLACED BY [facility] Last Admin: 05/25/25 15:40 Dose: Not Given Documented By: DRU Non-Admin Reason: Physician Held Med Labs 05/26/25 06:24 05/26/25 06:24 Labs: Laboratory Results - last 24 hr 05/20/25 05/26/25 05/26/25 06:21 00:55 06:24 MCV 83.6 MCH 25.6 L MCHC 30.6 L RDW 18.6 H Plt Count 54 L MPV 10.6 Immature Gran % (Auto) 0.8 H Neut % (Auto) 80.9 H Lymph % (Auto) 10.2 L [place]bert % (Auto) 7.3 Eos % (Auto) 0.8 Baso % (Auto) 0.0 Lymph # (Auto) 0.4 L [place] # (Auto) 0.3 Eos # (Auto) 0.0 Baso # (Auto) 0.0 Abs Immat Gran (auto) 0.03 Absolute Neuts (auto) 3.0 Absolute Nucleated RBC 0.030 H Nucleated RBC % (auto) 0.8 H Anion Gap 19 Estim Creat Clear Calc 14.9 Estimated GFR 13 Random Glucose 95 Calcium 8.8 Magnesium 2.1 Total Bilirubin 1.0 AST 34 ALT 17 Alkaline Phosphatase 111 Total Protein 7.1 Albumin 3.2 L Abnorm Protein Band 1 TNP Abnorm Protein Band 2 TNP Abnorm Protein Band 3 TNP Urine Color Red A Urine Appearance Clear Urine pH 6.0 Ur Specific [place] 1.015 Urine Protein 100 (2+) H Urine Glucose (UA) Negative Urine Ketones Negative Urine Blood Large (3+) H Urine Nitrite Negative Ur Leukocyte Esterase Moderate (2+) H Urine RBC >20 H Urine WBC 6-10 H Ur Squamous Epith Cells 0-2 Urine Bacteria None Seen Hyaline Casts 0-2 Assessment and Plan (1) Comfort measures only status: Status: Acute Plan 74yo M with HFrEF, AF on apixaban, DM2, HTN, HLD, CAD, hyperPTH presenting with bilateral leg swelling and pain, blood in the stool; admitted for acute/chronic HFrEF, leg wound infection, GI bleed. Now hypothermic and pancytopenic., KELSEY on CKD worsening to the point of possibly needing hemodialysis soon, Healthcare proxy invoked by Psychiatry yesterday as of 05/23/2025. Had a [id number] talk with the daughter who is the healthcare proxy on 05/24/2025 and when informed about his necessity to possibly needing hemodialysis or aggressive management, the family-Healthcare proxy-daughter did inform that he lives alone, can not manage home p.o. meds, would not be able to sustain hemodialysis, has spoken to various family members in [place], is aware of her aunt going through hemodialysis and overall having poor quality of life and she did have major concerns about how he would tolerate overall medical and surgical management. Patient started having active aspiration and intolerance of any p.o. diet and given his poor prognosis, KELSEY CKD, pancytopenia worsening, overall significant and declining health in the past few months, as documented extensively, his daughter elected him to change his code status to DIESEL TECHNICIAN the a.m. of 05/26/2025. Patient is being initiated on Valium and Dilaudid as per DIESEL TECHNICIAN orders. Patient initiated on pleasure feeds per his wishes. Every step of the way-I have informed the patient's daughter and she is on board. This note is constructed using voice recognition software. While every effort has been made to ensure accuracy, scudding inspector errors may have been included. Quality Stroke Does the patient have a stroke diagnosis?: No VTE Prior VTE?: No VTE Risk Level:: Medical - moderate - high VTE Device Contraindication: Treatment Not Indicated VTE Drug Contraindication: N/A - Med Ordered
[2025-05-26] MEDS: 0.9 % Sodium Chloride Flush 3 ML SYRINGE IVFLUSH (09:21)
--- NOTE | 2025-05-26 09:47 | MHC.CM.PN ---
PER REVIEW OF CHART AND CONVERSATION WITH MD, CALL PLACED TO HCP TRACEY. TRACEY PREFERS SNF PLACEMENT IN [place] IF POSSIBLE. REFERRAL PLACED TO [facility] FOR A BED OFFER WITH HOSPICE TRANSITION. CASE MANAGEMENT FOLLOWING
--- NOTE | 2025-05-26 10:34 | MHC.CM.PN ---
Addendum entered by Marleny Santos, RN 05/26/25 12:24: DAUGHTER ACCEPTS BED OFFER. PATIENT'S SPOUSE IS AT THE FACILITY. [facility] IS ATTEMPTING AUTH NOW. PLAN IS TO TRANSFER TO [facility] Original Note: [facility] IS OFFERING A BED. MESSAGE LEFT FOR HCP, TRACEY. PATIENT COULD TRANSFER TODAY ONCE BED OFFER IS OFFICIALLY ACCEPTED. CM FOLLOWING
--- NOTE | 2025-05-26 11:42 | MHC.SL.SWA ---
Speech Pathologist Impression: Risk of Aspiration Due to: Dysphasia Diet Status: Comfort feeding at discretion of provider Liquid Consistency and Strategies for Safe Swallow: Liquid Intake Recommendation: NPO Liquid Intake Strategies: Solid Food Consistency: Dietary Recommendations: Additional Modifications to Solid Foods: Oral Medication Intake: Please contact the pharmacy regarding appropriate crushable or liquid drug formulations that are available whenever modified delivery is recommended. Compensatory Strategies and Precautions to be Taken for Safe Swallow: Supervision While Eating and Drinking for Safe Swallow: PO with CRATE REPAIRER Foods to Avoid: Swallowing Recommended Treatments: Recommendation for Speech: Inpatient Speech Therapy Modified Barium Swallow Study - Inpatient Comment: Patient seen this morning for re-assessment and to determine if ready/appropriate for MBSS study. Patient was seated in cardiac chair, appeared to be sleeping but woke to name. Patient was communicated with in Lao throughout; patient also kept eyes closed throughout. Patient initially offered a swab moistened with water, but when placed on lips patient swatted it and the therapist away. Patient offered [place] Thick Juice, which he accepted, and took 4 tsps of. On swallow, oral containment was normal, timing of swallow was normal, laryngeal elevation was mildly reduced. After 4 tsps, patient refused more, and then was noted to produce a repetitive, congested cough. Patient asked for water, was given a trace amount by spoon, patient was noted to have vocal wetness after this swallow. Given patient's ability to take some fluids, CRATE REPAIRER determined MBSS was indicated for patient to help determine nature of swallowing difficulty and determine what textures, if any would be safest for patient. CRATE REPAIRER discussed plan with MD who ordered the study, also with the RN who was present at the time of this assessment, and with radiology to schedule and arrange transportation. Patient has two RNs, second RN was not informed of plan, when assembler cards and announcements arrived she sent them away, consulted with MD who then cancelled the order. 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 No further CRATE REPAIRER service indicated. Frequency/Duration: Date Range for Service Req: Timeline to reassess: Director Enterprise Sales Clinican/Clinical Fellow: No Supervisory Statement: I have reviewed and agree with the student/clinical fellow's documentation: N/A Speech Language Pathologist: Arielle Ryan M.A., CCC-CRATE REPAIRER
--- NOTE | 2025-05-26 15:39 | HO.WOUND ---
Wound Consult: Follow up 74yr old male admitted to [facility] on 05/18/25 - See progress notes and H&P for detailed history. New Wound consult placed for bilateral legs. Patient well known to this speech writer from prior admissions, last admission 05/04/25. Arrival to bedside today patient was sitting in recliner chair alert and agreeable to my assessment and dressing changes. Patient was pleasant and agreeable to my visit. 05/19/25 Right Leg 05/19/25 Left Leg 05/19/25 Left Lateral Leg Today 05/26/25 Left Medial Leg Today 05/26/25 Right Lateral Leg Today 05/26/25 Right Medial Leg Today Etiology: bilateral legs venous stasis ulcers Wound Bed:scattered open areas with moist red wound beds - some areas with thick coagulated layer Patient labs reveal thrombocytopenia resulted 54 Drainage / Odor: small sanginous, scant yellow, mild odor Edges: ? attached and irregular Georgie wound: ? No Induration, Fluctuance or Warmth noted Pain: pain with wound assessment/cleansing Goals of Treatment: ? moist wound healing, drainage control with durafiber ag discontinue Silvadene No new topical recommendations needed at this time. Recommendations: 1. Turn and Reposition every 2 hours and as needed for patient comfort. Use pillows or wedges to support off loading positions. 2. Off Load all bony prominences with use of pillows and heel boots if needed. Apply Preventative foams where needed. 3. Monitor for incontinence and moisture control, use barrier creams when needed for prevention and treatment. 4. Provide adequate and supplemental nutrition. 5. Order low air loss mattress. 6. When applicable maintain blood glucose levels per Providers order. Bilateral legs - cleanse with saline, apply durafiber ag, cover with ABD pads, hold in place with rolled gauze or stretch netting, change every other day and PRN Buttock - Off Load Pressure with Q2 hr turns and use of pillows - Cleanse with PH balance spray or wipes, pat dry. ?Apply thin layer of barrier cream to affected area.? Apply twice daily and Reapply thin layer PRN after each episode of incontinence. Re-consult wound care Nurse for wound deterioration or wound changes.
[2025-05-27] MEDS: 0.9 % Sodium Chloride Flush 3 ML SYRINGE IVFLUSH ×2 (00:43→07:59)
[2025-05-27 03:09] VITALS: RESP 18
--- NOTE | 2025-05-27 07:17 | P.PNIM_ITS ---
Subjective Subjective Date of Service: 05/27/25 Physical Exam 2 Vital Signs: Vital Signs: Last Vital Signs Temp 97.2 F 05/26/25 23:31 Pulse 67 05/26/25 23:31 Resp 18 05/27/25 03:09 BP 164/72 H 05/26/25 23:31 Pulse Ox 93 05/26/25 23:31 O2 Del Method Room Air 05/26/25 23:31 O2 Flow Rate 2 05/26/25 00:00 BMI result Body Mass Index 25.3 Objective Data Active Medications Acetaminophen (Acetaminophen 325 Mg Tablet) 650 mg PO Q4H PRN PRN Reason: Fever >/= 100, Pain, mild 1-3 Last Admin: 05/27/25 06:31 Dose: 650 mg Documented By: CARMINA Artificial Tears (Artificial Tears 15 Ml Drops) 2 drop EYE-BOTH Q4H PRN PRN Reason: Dry Eyes Bisacodyl (Bisacodyl 10 Mg Supp.Rect) 10 mg TN DAILY PRN PRN Reason: Constipation Docusate Sodium (Docusate Sodium 100 Mg Capsule) 100 mg PO BEDTIME [facility] Last Admin: 05/26/25 20:59 Dose: Not Given Documented By: CARMINA Non-Admin Reason: NPO Haloperidol (Haloperidol 1 Mg Tablet) 1 mg PO Q4H PRN PRN Reason: Delirium Morphine Sulfate (Morphine Sulfate Oral Susan 10 Mg/5 Ml Solution) 10 mg PO Q4H PRN PRN Reason: portfolio management marketing Morphine Sulfate (Morphine Sulfate 2 Mg/Ml Cartridge) 2 mg IVPUSH Q2H [facility] Last Admin: 05/27/25 06:35 Dose: 2 mg Documented By: CARMINA Ondansetron HCl (Ondansetron Odt 4 Mg Tab.Rapdis) 4 mg TRANSLINGU Q8H PRN PRN Reason: Nausea and Vomiting Sodium Biphosphate/Sodium Phosphate (Sodium Phosphate,Cotton-Dibasic 133 Ml Enema) 133 ml TN DAILY PRN PRN Reason: Constipation Sodium Chloride (0.9 % Sodium Chloride Flush 3 Ml Syringe) 3 ml IVFLUSH QSHIFT [facility] Last Admin: 05/27/25 00:43 Dose: 3 ml Documented By: CARMINA Labs 05/26/25 06:24 05/26/25 06:24 Quality Stroke Does the patient have a stroke diagnosis?: No VTE Prior VTE?: No VTE Risk Level:: Medical - moderate - high VTE Device Contraindication: Treatment Not Indicated VTE Drug Contraindication: N/A - Med Ordered
[2025-05-27 07:36] VITALS: BP 154/77; PULSE 78; RESP 18; TEMP 36.3; O2SAT 96
[2025-05-27 12:00] VITALS: BP 145/60; PULSE 78; RESP 17; TEMP 36.2; O2SAT 98
--- NOTE | 2025-05-27 14:17 | MHC.CM.PN ---
Second IMM sent to HCP, pt has been medically cleared, he will go to [facility] this afternoon via BLS and have Hospice services from [facility].
--- NOTE | 2025-05-27 14:52 | P.DS_ITS ---
DS: Providers Provider Date of Service: 05/27/25 Date of admission: 05/18/25 18:57 Date of discharge: 05/27/25 Primary care physician: Blanca Anderson MD Consults: 05/23/25 08:28 Consult to Psychiatry Routine Consulting Provider: [facility] Psych Covering Reason for consultation: competency, refusing many interventions 05/23/25 09:33 Consult to Psychiatry Routine Consulting Provider: [facility] Psych Covering Reason for consultation: capacity? pulling off Raoul hugger, refusing diuretic 05/26/25 11:57 Consult to Case Management Routine Comment: Consult to Wood Handler Routine Comment: Consult to Hospice Routine Comment: DS: Diagnosis Discharge Diagnosis (1) Comfort measures only status: Status: Acute DS: Summary Hospital Course Hospital Course: 74yo M with HFrEF, AF on apixaban, DM2, HTN, HLD, CAD, hyperPTH presenting with bilateral leg swelling and pain, blood in the stool; admitted for acute/chronic HFrEF, leg wound infection, GI bleed. Now hypothermic and pancytopenic., KELSEY on CKD worsening to the point of possibly needing hemodialysis soon, Healthcare proxy invoked by Psychiatry yesterday as of 05/23/2025. Had a [id number]-vais talk with the daughter who is the healthcare proxy on 05/24/2025 and when informed about his necessity to possibly needing hemodialysis or aggressive management, the family-Healthcare proxy-daughter did inform that he lives alone, can not manage home p.o. meds, would not be able to sustain hemodialysis, has spoken to various family members in [place], is aware of her aunt going through hemodialysis and overall having poor quality of life and she did have major concerns about how he would tolerate overall medical and surgical management. Patient started having active aspiration and intolerance of any p.o. 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 of 05/26/2025. Patient is being initiated on Valium and Dilaudid as per OFFICE MACHINE EMBOSSOGRAPH OPERATOR orders. Patient initiated on pleasure feeds per his wishes. Patient appears comfortable. Every step of the way-I have informed the patient's daughter and she is on board. Patient is going home with hospice services. This note is constructed using voice recognition software. While every effort has been made to ensure accuracy, community health agent errors may have been included. Time spent discussing smoking cessation with patient: more than 10 minutes Time Attestation Discharge Coordination Time (in mins): Thirty-seven Quality: Safe Use of Opioids Does Pt have an Active Cancer Diagnosis on the Problem List?: No Quality: Stroke Does the patient have a stroke diagnosis?: No Physical Exam Vital Signs: Vital Signs: Last Vital Signs Temp 97.1 F 05/27/25 12:00 Pulse 78 05/27/25 12:00 Resp 17 05/27/25 12:00 BP 145/60 H 05/27/25 12:00 Pulse Ox 98 05/27/25 12:00 O2 Del Method Room Air 05/27/25 12:00 O2 Flow Rate 2 05/26/25 00:00 BMI result Body Mass Index 25.3 DS: Data Data Completed and Pending Completed studies during hospitalization [Text1]: Pending at discharge 05/20/25 14:12 Surgical [PTH] Routine Procedures Dilation of Cystic Duct with Intraluminal Device, Via Natural or Artificial Opening Endoscopic (11/12/24) Drainage of Peritoneal Cavity with Drainage Device, Percutaneous Approach (11/12/24) Drainage of Peritoneal Cavity, Percutaneous Approach (11/12/24) Drainage of Right Pleural Cavity, Percutaneous Approach (05/04/25) Excision of Duodenum, Via Natural or Artificial Opening Endoscopic, Diagnostic (12/19/22) Excision of Esophagogastric Junction, Via Natural or Artificial Opening Endoscopic, Diagnostic (12/19/22) Excision of Stomach, Pylorus, Via Natural or Artificial Opening Endoscopic, Diagnostic (12/04/24) Inspection of Upper Intestinal Tract, Via Natural or Artificial Opening Endoscopic (11/12/24) Resection of Gallbladder, Percutaneous Endoscopic Approach (10/20/24) Transfusion of Nonautologous Red Blood Cells into Peripheral Vein, Percutaneous Approach (12/04/24) Labs on day of discharge: Preliminary micro results at discharge 05/26/25 Unknown Urine Culture - Preliminary Urine Catheterized - Roblero Catheter Yeast Discharge Plan Discharge Anticipated Discharge Date/Time: 05/27/25 14:56 Patient Disposition: Hospice - Home Discharge Diagnosis: Adult failure to thrive, multiorgan failure, ESRD, recurrent aspiration pneumonia Referrals: Blanca Crowley MD [Primary Care Provider, Internal Medicine] - 1 Week Discharge Medications: New morphine 10 mg/5 mL Solution 10 mg PO Q4H PRN (Reason: pharmacy operations specialist) 5 Days Qty: 0 0RF Rx Instructions: Partial Fill upon patient request. bisacodyl [Gentle Laxative (bisacodyl)] 10 mg Suppository 10 mg ME DAILY PRN (Reason: Constipation) 30 Days Qty: 30 3RF docusate sodium 100 mg Capsule 100 mg PO BEDTIME 30 Days Qty: 30 3RF ondansetron 4 mg Tablet,Disintegrating 4 mg translingual Q8H PRN (Reason: Nausea And Vomiting) 12 Days Qty: 14 0RF morphine concentrate 10 mg/0.5 mL syringe 10 mg PO Q4H Qty: 50 0RF Rx Instructions: Partial Fill upon patient request. diazepam [Valium] 2 mg tablet 2 mg PO TID PRN (Reason: pharmacy operations specialist, pain , distress) 10 Days Qty: 20 0RF Discontinued (DME) blood sugar diagnostic Strip See Rx Instructions .ROUTE BID Qty: 50 11RF Rx Instructions: Use 1 test strip once a day atorvastatin 40 mg tablet 40 mg PO DAILY Eliquis 2.5 mg tablet 2.5 mg PO BID omeprazole 40 mg Capsule,Delayed Release(Dr/Ec) 40 mg PO BID@0630,1630 Qty: 60 0RF ferrous sulfate 325 mg (65 mg iron) tablet 325 mg PO BID calcitriol 0.25 mcg capsule 0.25 mcg PO Q48H metolazone 2.5 mg tablet 2.5 mg PO MOWEFR (DME) Ultra-Light Rollator Misc See Rx Instructions .Route Qty: 1 0RF Rx Instructions: As directed amlodipine 5 mg Tablet 5 mg PO DAILY Qty: 60 0RF Protocol: Hold for SBP< HOLD for SBP < : 90 carvedilol 6.25 mg Tablet 6.25 mg PO BID Qty: 60 0RF Protocol: Hold for SBP/HR < HOLD for SBP < : 90 HOLD for HR < : 60 furosemide 80 mg tablet 80 mg PO BID Qty: 60 0RF (DME) blood-glucose meter Misc See Rx Instructions PO BID Qty: 1 Rx Instructions: As directed (DME) lancets Misc See Rx Instructions .ROUTE BID Qty: 100 Rx Instructions: As directed Discharge Orders: Discharge Order (Routine); Ordered 05/27/25 Ordered By: Evi Manuel Diet: comfort feed Activity on Discharge: As tolerated Stand Alone Forms: Patient Portal Discharge page Print Language: Divehi Care Plan Goals: Comfort care-pleasure feeds Patient's daughter who is the healthcare proxy is aware that patient might have aspiration Patient is appropriately OFFICE MACHINE EMBOSSOGRAPH OPERATOR and on hospice care who will manage his medications as an needs/dosage escalate Health Concerns: See above Plan of Treatment: See above Assessment: See above Patient Instructions: Comfort Measures (GEN)
[2025-05-27 15:53] VITALS: RESP 15
== END 2025-05-27 17:25 | disposition hospice, home (50) | DRG 291 ==
LOC: HO.ED 19:06 → HO.EDOVER 19:14 → HO.IMC 05-19 14:31 → HO.EDOVER 05-22 17:46 → HO.IMC 05-22 17:46
PROVIDERS: Family Medicine; Hospitalist; Internal Medicine; Internal Medicine Critical Care Medicine; Internal Medicine Gastroenterology; Internal Medicine Hypertension Specialist; Admitting Provider Student in an Organized Health Care Education/Training Program; Emergency Provider Student in an Organized Health Care Education/Training Program; PCP Student in an Organized Health Care Education/Training Program; Visit Provider Student in an Organized Health Care Education/Training Program
PROC: 0DJ08ZZ Inspection of Upper Intestinal Tract, Via Natural or Artificial Opening Endoscopic (ICD-10-PCS; CPT 43235; principal; 2025-05-20 14:00)
PROC: 0DJD8ZZ Inspection of Lower Intestinal Tract, Via Natural or Artificial Opening Endoscopic (ICD-10-PCS; CPT 45330; 2025-05-20 14:00)
DX: I13.0 Hypertensive heart and chronic kidney disease with heart failure and stage 1 through stage 4 chronic kidney disease, or unspecified chronic kidney disease (principal); J69.0 Pneumonitis due to inhalation of food and vomit; K29.71 Gastritis, unspecified, with bleeding; K20.91 Esophagitis, unspecified with bleeding; K29.81 Duodenitis with bleeding; D62 Acute posthemorrhagic anemia; I50.32 Chronic diastolic (congestive) heart failure; I48.20 Chronic atrial fibrillation, unspecified; L97.829 Non-pressure chronic ulcer of other part of left lower leg with unspecified severity; L97.819 Non-pressure chronic ulcer of other part of right lower leg with unspecified severity; D61.818 Other pancytopenia; N17.9 Acute kidney failure, unspecified; F05 Delirium due to known physiological condition; K64.8 Other hemorrhoids; I95.9 Hypotension, unspecified; E78.5 Hyperlipidemia, unspecified; I27.20 Pulmonary hypertension, unspecified; Z66 Do not resuscitate; Z51.5 Encounter for palliative care; R68.0 Hypothermia, not associated with low environmental temperature; I87.2 Venous insufficiency (chronic) (peripheral); K62.1 Rectal polyp; R62.7 Adult failure to thrive; Z68.25 Body mass index [BMI] 25.0-25.9, adult; D63.1 Anemia in chronic kidney disease; N18.32 Chronic kidney disease, stage 3b; Z91.148 Patient's other noncompliance with medication regimen for other reason; I25.10 Atherosclerotic heart disease of native coronary artery without angina pectoris; E11.22 Type 2 diabetes mellitus with diabetic chronic kidney disease; Z87.891 Personal history of nicotine dependence; Z79.01 Long term (current) use of anticoagulants; Z79.899 Other long term (current) drug therapy
CPT/HCPCS: 36415; 70450; 71045; 76775; 80048; 80053; 80076; 81001; 82272; 82533; 82570; 82607; 82746; 82784; 82803; 82947; 83010; 83520; 83605; 83615; 83735; 83880; 84156; 84165; 84439; 84443; 84484; 85025; 85027; 85045; 85610; 85999; 86021; 86160; 86334; 86704; 86706; 86803; 86850; 86900; 86901; 86923; 87040; 87086; 87088; 87340; 87389; 88305; 88313; 88342; 92526; 92610; 93005; 97162; 99285; J0131; J0696; J0736; J1171; J1200; J1630; J1938; J1939; J2003; J2020; J2270; J2359; J2470; J2543; J2704; P9016; P9047

== ENCOUNTER → 2025-05-18 14:43 | Outpatient (BNV) | payer OTHER, SELFPAY | PROVIDERS: Emergency Provider Student in an Organized Health Care Education/Training Program; PCP Student in an Organized Health Care Education/Training Program; Visit Provider Radiology Diagnostic Radiology | DX: J90 Pleural effusion, not elsewhere classified (principal); J98.11 Atelectasis; I51.7 Cardiomegaly | CPT/HCPCS: 71045 ==

== ENCOUNTER 2025-05-18 18:57 | Outpatient (BNV) | payer OTHER, SELFPAY | END 2025-05-21 22:21 | PROVIDERS: Admitting Provider Student in an Organized Health Care Education/Training Program; Emergency Provider Student in an Organized Health Care Education/Training Program; PCP Student in an Organized Health Care Education/Training Program; Visit Provider Internal Medicine Cardiovascular Disease | DX: I48.91 Unspecified atrial fibrillation (principal) | CPT/HCPCS: 93010 ==

== ENCOUNTER 2025-05-18 18:57 | Outpatient (BNV) | payer OTHER, SELFPAY | END 2025-05-22 08:27 | PROVIDERS: Admitting Provider Student in an Organized Health Care Education/Training Program; Emergency Provider Student in an Organized Health Care Education/Training Program; PCP Student in an Organized Health Care Education/Training Program; Visit Provider Radiology Diagnostic Radiology | DX: R41.0 Disorientation, unspecified (principal); R68.0 Hypothermia, not associated with low environmental temperature; N26.1 Atrophy of kidney (terminal); R18.8 Other ascites; J90 Pleural effusion, not elsewhere classified | CPT/HCPCS: 70450; 76775 ==

== ENCOUNTER → 2025-05-18 18:57 | Outpatient (BNV) | payer OTHER, SELFPAY | PROVIDERS: Admitting Provider Student in an Organized Health Care Education/Training Program; Emergency Provider Student in an Organized Health Care Education/Training Program; PCP Student in an Organized Health Care Education/Training Program; Visit Provider Psychiatry & Neurology Psychiatry | DX: R41.89 Other symptoms and signs involving cognitive functions and awareness (principal); I13.10 Hypertensive heart and chronic kidney disease without heart failure, with stage 1 through stage 4 chronic kidney disease, or unspecified chronic kidney disease; I50.9 Heart failure, unspecified; N17.9 Acute kidney failure, unspecified; N18.9 Chronic kidney disease, unspecified | CPT/HCPCS: 99222 ==

== ENCOUNTER → 2025-05-18 18:57 | Outpatient (BNV) | payer OTHER, SELFPAY | PROVIDERS: Admitting Provider Student in an Organized Health Care Education/Training Program; Emergency Provider Student in an Organized Health Care Education/Training Program; PCP Student in an Organized Health Care Education/Training Program; Visit Provider Internal Medicine Critical Care Medicine | DX: I13.10 Hypertensive heart and chronic kidney disease without heart failure, with stage 1 through stage 4 chronic kidney disease, or unspecified chronic kidney disease (principal); I50.9 Heart failure, unspecified | CPT/HCPCS: 99232 ==

== ENCOUNTER → 2025-05-18 18:57 | Outpatient (BNV) | payer OTHER, SELFPAY | PROVIDERS: Admitting Provider Student in an Organized Health Care Education/Training Program; Emergency Provider Student in an Organized Health Care Education/Training Program; PCP Student in an Organized Health Care Education/Training Program; Visit Provider Internal Medicine Gastroenterology | DX: K92.2 Gastrointestinal hemorrhage, unspecified (principal) | CPT/HCPCS: 99223 ==

== ENCOUNTER → 2025-05-18 18:57 | Outpatient (BNV) | payer OTHER, SELFPAY | PROVIDERS: Admitting Provider Student in an Organized Health Care Education/Training Program; Emergency Provider Student in an Organized Health Care Education/Training Program; PCP Student in an Organized Health Care Education/Training Program; Visit Provider Family Medicine | DX: I50.9 Heart failure, unspecified (principal); R60.1 Generalized edema | CPT/HCPCS: 99223; 99232; 99233 ==

== ENCOUNTER → 2025-05-18 18:57 | Outpatient (BNV) | payer OTHER, SELFPAY | PROVIDERS: Admitting Provider Student in an Organized Health Care Education/Training Program; Emergency Provider Student in an Organized Health Care Education/Training Program; PCP Student in an Organized Health Care Education/Training Program; Visit Provider Internal Medicine Hypertension Specialist | DX: N18.32 Chronic kidney disease, stage 3b (principal); N17.9 Acute kidney failure, unspecified; N18.9 Chronic kidney disease, unspecified | CPT/HCPCS: 99223 ==

== ENCOUNTER → 2025-05-18 18:57 | Outpatient (BNV) | payer OTHER, SELFPAY | PROVIDERS: Admitting Provider Student in an Organized Health Care Education/Training Program; Emergency Provider Student in an Organized Health Care Education/Training Program; PCP Student in an Organized Health Care Education/Training Program; Visit Provider Internal Medicine Cardiovascular Disease | DX: I50.9 Heart failure, unspecified (principal); I48.20 Chronic atrial fibrillation, unspecified | CPT/HCPCS: 93010; 99222 ==

== ENCOUNTER → 2025-05-18 18:57 | Outpatient (BNV) | payer OTHER, SELFPAY | PROVIDERS: Admitting Provider Student in an Organized Health Care Education/Training Program; Emergency Provider Student in an Organized Health Care Education/Training Program; PCP Student in an Organized Health Care Education/Training Program; Visit Provider Internal Medicine | DX: I50.9 Heart failure, unspecified (principal); I48.20 Chronic atrial fibrillation, unspecified; N18.32 Chronic kidney disease, stage 3b; J96.01 Acute respiratory failure with hypoxia | CPT/HCPCS: 99222 ==

== ENCOUNTER 2025-06-03 19:33 | Emergency (ER) | payer OTHER, SELFPAY ==
[2025-06-03 19:56] VITALS: BP 104/44; BP 127/54; PULSE 67; PULSE 70; RESP 19; TEMP 36.4; O2SAT 96; O2SAT 98; BMI 26.6
[2025-06-03 21:02] VITALS: BP 114/60; PULSE 69; RESP 20; O2SAT 94
--- NOTE | 2025-06-03 21:03 | ED.GENADULT ---
HPI - General Adult General Chief complaint: General Medical Stated complaint: Catheter ripped out, from snf Time Seen by Provider: 06/03/25 21:00 History of Present Illness ED Provider: kurt HPI narrative: 74 M limited hx from [facility]. Cath dislodged. Blood at meatus. No other ACUTE issues brought to our attention from [facility] staff through EMS. 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, pain , 05/27/25 distress 10 days #20 tabs docusate sodium 100 mg capsule 100 mg PO BEDTIME 30 days #30 caps 05/27/25 morphine 10 mg/5 mL oral solution 10 mg (5 mL) PO Q4H PRN residential real estate sales manager 5 days 05/27/25 #0 mL morphine concentrate 10 mg/0.5 mL 10 mg (0.5 mL) PO Q4H STEAM BLOCKER, RESP 05/27/25 oral syringe (FOR ORAL USE ONLY) distress #50 ea ondansetron 4 mg disintegrating 4 mg translingual Q8H PRN Nausea 05/27/25 tablet And Vomiting 12 days #14 tabs Allergies Allergy/AdvReac Type Severity Reaction Status Date / Time No Known Allergies (No Known Allergy Verified 06/04/25 03:12 Allergies*) [facility] Past Medical History Medical History (Updated 06/04/25 @ 00:02 by Background Daemon) Cognitive impairment Chronic atrial fibrillation Hypoxia Acute on chronic heart failure with preserved ejection fraction (HFpEF) Anemia in chronic kidney disease (CKD) Hypertension Uncontrolled hypertension Congestive heart failure CKD (chronic kidney disease) CHF (congestive heart failure) CKD (chronic kidney disease) stage 4, GFR 15-29 ml/min Obesity (BMI 30.0-34.9) Cardiomyopathy Stroke CKD (chronic kidney disease) Former smoker Depression Diabetes High cholesterol Surgical History (Updated 06/04/25 @ 00:02 by Background Daemon) History of aneurysm History of shoulder surgery Family History Family History Father No problems noted. Mother Diabetes Hypertension Cancer Son No problems noted. Son No problems noted. Son No problems noted. Daughter No problems noted. Daughter No problems noted. Social History Social History Household Members: Family Household Members Other:: Housing: Apartment Are you a primary rn homecare to a significant other at home: No Do you presently have visiting nurse or other home services: Yes Alcohol intake: never Comment: 1:1 sitter at bedside Patient Tobacco Use Status: Former Tobacco user Substance Use Type: Marijuana Advance Directives Date on File: 12/17/24 service: No Current occupational status: disabled Physical Exam ED Exam Exam: GENERAL: Well appearing. No apparent distress. Alert. HEAD/NECK: No visual trauma. EYES: Normal to inspection. No conjunctival erythema. No discharge. ENMT: Hearing grossly normal. External nose normal. RESPIRATORY: Respiratory effort normal. CARDIOVASCULAR: Additional details (Grossly well perfused). : Penis with a blood at the meatus no gross trauma. SKIN: No jaundice. Chronic leg wounds bilateral symmetric to the mid tibial region NEUROLOGICAL: Alert. Moving all extremities x4. Additional details (No gross motor deficits. Normal tone. ). PSYCHIATRIC: Alert. Appearance appropriate for situation. Vital Signs: Vital Signs - 24 hr 06/03/25 19:56 06/03/25 21:02 06/03/25 22:33 Temperature 97.5 F 97.6 F Pulse Rate 67 69 69 Respiratory Rate 19 20 20 Blood Pressure 104/44 L 114/60 114/60 Pulse Oximetry 96 94 94 Oxygen Delivery Method Room Air Room Air Room Air BMI result Body Mass Index 26.6 Medical Decision Making Medical Decision Making MDM Narrative: Medical Decision Making: [age] male with inadvertent Roblero dislodged. Seems to be only a few hours tonight. Roblero replaced uncomplicated flowing freely. Discharge back to SNF Preliminary Favored Differential Diagnosis: Urinary retention with inadvertent Roblero dislodgement among additional considered etiologies Testing Interpreted Independently: ?See below for details Radiology or Lab testing Results Reviewed: ?See below for details Consults: ?See below for details Independent Historians/External Chart Reviews: ?See below for details Social Determinants of Health Impacting MDM/Planning: ?See below for details Discharge Plan Discharge Clinical Impression: Chronic indwelling Roblero catheter Patient Disposition: [facility] Instructions: Roblero Catheter Care Additional Instructions: Roblero catheter was replaced without complication. 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 bisacodyl [Gentle Laxative (bisacodyl)] 10 mg Suppository 10 mg GA DAILY PRN (Reason: Constipation) 30 Days Qty: 30 3RF docusate sodium 100 mg Capsule 100 mg PO BEDTIME 30 Days Qty: 30 3RF ondansetron 4 mg Tablet,Disintegrating 4 mg translingual Q8H PRN (Reason: Nausea And Vomiting) 12 Days Qty: 14 0RF morphine concentrate 10 mg/0.5 mL syringe 10 mg PO Q4H Qty: 50 0RF Rx Instructions: Partial Fill upon patient request. 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
[2025-06-03 22:33] VITALS: BP 114/60; PULSE 69; RESP 20; TEMP 36.4; O2SAT 94
== END 2025-06-03 22:37 | disposition skilled nursing facility (03) ==
PROVIDERS: Emergency Provider Emergency Medicine; PCP Student in an Organized Health Care Education/Training Program
DX: T83.028A Displacement of other urinary catheter, initial encounter (principal); I13.0 Hypertensive heart and chronic kidney disease with heart failure and stage 1 through stage 4 chronic kidney disease, or unspecified chronic kidney disease; I50.32 Chronic diastolic (congestive) heart failure; N18.4 Chronic kidney disease, stage 4 (severe); E11.22 Type 2 diabetes mellitus with diabetic chronic kidney disease; I48.20 Chronic atrial fibrillation, unspecified; Z79.01 Long term (current) use of anticoagulants; Z79.899 Other long term (current) drug therapy
CPT/HCPCS: 99284

== ENCOUNTER 2025-06-04 02:51 | Emergency (ER) | payer OTHER, SELFPAY ==
[2025-06-04 02:58] VITALS: BP 100/60; PULSE 66; O2SAT 98; BMI 28.0
[2025-06-04 03:13] VITALS: BP 102/45; PULSE 60; RESP 16; O2SAT 92
--- NOTE | 2025-06-04 03:29 | ED_ITS ---
HPI - General Adult General Chief complaint: General Medical Stated complaint: dislodged garza Time Seen by Provider: 06/04/25 03:18 Source: EMS and RN notes reviewed Limitations: other (Cognitive impairment) History of Present Illness ED Provider: Christine Garza PA-C HPI narrative: 74 y/o M with hx of HFpEF (LVEF 52%), AFib on Eliquis, tan-cucseio-peqapuscy type 2 diabetes, HTN, HLD, CAD, hyperparathyroidism, CKD 3, and cognitive impairment with a chronic indwelling Garza presents from [facility] with dislodged Garza catheter. Patient was seen earlier today for same issue, the Garza was replaced he was returned to the SNF. Related Data Previous Rx's ?Medication ?Instructions ?Recorded bisacodyl 10 mg rectal suppository 10 mg [place] DAILY PRN Constipation 30 05/27/25 (Gentle Laxative (bisacodyl)) days #30 ea diazepam 2 mg tablet (Valium) 2 mg PO TID PRN rock breaker, kings n , 05/27/25 distress 10 days #20 tabs docusate sodium 100 mg capsule 100 mg PO BEDTIME 30 da ys #30 caps 05/27/25 morphine 10 mg/5 mL oral solution 10 mg (5 mL) PO Q4H PRN rock breaker 5 days 05/27/25 #0 mL morphine concentrate 10 mg/0.5 mL 10 mg (0.5 mL) PO Q4 H ENVIRONMENTAL SCIENTIST, RESP 05/27/25 oral syringe (FOR ORAL USE ONLY) distress #50 ea ondansetron 4 mg disintegrating 4 mg translingual Q8H PRN Nausea 05/27/25 tablet And Vomiting 12 days #14 tab s Allergies Allergy/AdvReac Type Severity Reaction Status Date / Time No Known Allergies (No Known Allergy Verified 06/04/25 03:12 Allergies*) Review of Systems Review of Systems: Unable to obtain secondary to cognitive impairment Yes all other systems are reviewed and are negative PMFSH Past Medical History Attestation statement: The following information was validated with the patient. Medical History (Updated 06/04/25 @ 03:35 by VIRAJ Donis) Cognitive impairment Chronic atrial fibrillation Hypoxia Acute on chronic heart failure with preserved ejection fraction (HFpEF) Anemia in chronic kidney disease (CKD) Hypertension Uncontrolled hypertension Congestive heart failure CKD (chronic kidney disease) CHF (congestive heart failure) CKD (chronic kidney disease) stage 4, GFR 15-29 ml/min Obesity (BMI 30.0-34.9) Cardiomyopathy Stroke CKD (chronic kidney disease) Former smoker Depression Diabetes High cholesterol Surgical History (Updated 06/04/25 @ 00:02 by Susanna River) History of aneurysm History of shoulder surgery Family History Family History Father No problems noted. Mother Diabetes Hypertension Cancer Son No problems noted. Son No problems noted. Son No problems noted. Daughter No problems noted. Daughter No problems noted. Social History Social History Household Members: Family Household Members Other:: Housing: Apartment Are you a primary medicare compliance auditor to a significant other at home: No Do you presently have visiting nurse or other home services: Yes Alcohol intake: never Comment: 1:1 sitter at bedside Patient Tobacco Use Status: Former Tobacco user Substance Use Type: Marijuana Advance Directives Date on File: 12/17/24 service: No Current occupational status: disabled Physical Exam ED Vital Signs: Vital Signs - 24 hr 06/04/25 03:13 Pulse Rate 60 Respiratory Rate 16 Blood Pressure 102/45 L Pulse Oximetry 92 Oxygen Delivery Method Room Air BMI result Body Mass Index 28.0 Const Other: Sleeping sitting up in bed Resp Effort & Inspection: normal respiratory effort Cardio Other: Normal peripheral perfusion Skin Other: Warm dry no rash Medical Decision Making Medical Decision Making MDM Narrative: 74 y/o M with hx of HFpEF (LVEF 52%), AFib on Eliquis, [id number]-[id number] type 2 diabetes, HTN, HLD, CAD, hyperparathyroidism, CKD 3, and cognitive impairment with a chronic indwelling Garza presents from [facility] with dislodged Garza catheter. Patient was seen earlier today for same issue, the Garza was replaced he was returned to the SNF. Problem: Patient is on hospice History: Per snf report and EMS I have considered the following differential diagnoses: Need to have Garza replaced Plan: The patient was seen here earlier in the day, it is very unclear why [facility] the Garza themselves. We will replace it and send him back to the SNF. No indication for labs or imaging Differential Diagnosis Differential Diagnoses: The differential diagnosis associated with the presentation includes See medical decision-making Admission/Observation Consideration of admission/observation: Escalation of care including admission/observation considered Not apply Discharge Plan Discharge Clinical Impression: Dislodged Garza catheter Patient Disposition: Home, Self-Care Additional Instructions: The Garza catheter was replaced. Prescriptions: No Action morphine 10 mg/5 mL Solution 10 mg PO Q4H PRN (Reason: rock breaker) 5 Days Qty: 0 0RF Rx Instructions: Partial Fill upon patient request. bisacodyl [Gentle Laxative (bisacodyl)] 10 mg Suppository 10 mg [place] DAILY PRN (Reason: Constipation) 30 Days Qty: 30 3RF docusate sodium 100 mg Capsule 100 mg PO BEDTIME 30 Days Qty: 30 3RF ondansetron 4 mg Tablet,Disintegrating 4 mg translingual Q8H PRN (Reason: Nausea And Vomiting) 12 Days Qty: 14 0RF morphine concentrate 10 mg/0.5 mL syringe 10 mg PO Q4H Qty: 50 0RF Rx Instructions: Partial Fill upon patient request. diazepam [Valium] 2 mg tablet 2 mg PO TID PRN (Reason: rock breaker, pain , distress) 10 Days Qty: 20 0RF Print Language: Eritrean
--- OUTSIDE RECORDS SUMMARY | 2025-06-04 03:39 | XMS_ITS | Encounter Summary ---
Author Organization [facility] Address [address] [place] [address] Care Team Providers Care Hotel Valet Attendant Name Role Phone Jarad Lundy MD Primary Care Provider Encounter Details Date Type Department Care Team (Latest Contact Info) Description 12/19/2024 Lab Requisition [facility] - Main Lab [address] [place] [address] Jarad Lundy MD [address] [place] [id number] Type 2 diabetes mellitus without complications ([facility] V24, [facility] V28) Social History Tobacco Use Types Packs/Day [...] EDT Type 2 diabetes mellitus without complications ([facility]/HCC V24, [facility] V28) HEMOGLOBIN A1C Routine 12/19/2024 4:48 AM EDT Type 2 diabetes mellitus without complications ([facility] V24, [facility] V28) COMPREHENSIVE METABOLIC PANEL Routine 12/19/2024 4:48 AM EDT Type 2 diabetes mellitus without complications ([facility] V24, [facility] V28) documented in this encounter Results * Hemoglobin A1c (12/19/2024 4:48 AM EDT) Pathologist [facility] Hemoglobin A1C 5.7 <6.5 % LAB CHEMISTRY METHOD 12/19/2024 11:02 AM T [facility] Mean Bld Glu Estim. 117 mg/dL LAB CHEMISTRY METHOD 12/19/2024 11:02 AM [facility] Blood Venous blood specimen / Unknown Venipuncture / Unknown 12/19/2024 4:48 AM EDT 12/19/2024 7:19 AM EDT us Jarad Lundy MD LAB BLOOD ORDERABLES Final Resu lt [facility] [address] [place] [address], * (ABNORMAL) Comprehensive metabolic panel (12/19/2024 4:48 AM EDT) [facility] Sodium 141 133 - 145 mmol/L LAB [...] 12/19/2024 8:20 AM [facility] Total Protein 5.3(L) 6.0 - 8.0 g/dL LAB CHEMISTRY METHOD 12/19/2024 8:20 AM [facility] Albumin 2.0(L) 3.2 - 5.0 g/dL LAB CHEMISTRY METHOD 12/19/2024 8:20 AM [facility] Total Bilirubin 0.6 0.0 - 1.4 mg/dL LAB CHEMISTRY METHOD 12/19/2024 8:20 AM [facility] Blood Venous blood specimen / Unknown Venipuncture / Unknown 12/19/2024 4:48 AM EDT 12/19/2024 7:19 AM EDT us Jarad Lundy MD LAB BLOOD ORDERABLES Final Resu lt [facility] [address] [place] [address], * (ABNORMAL) Complete blood count (12/19/2024 4:48 AM EDT) [facility] Signature WBC 9.1 4.8 - 10.8 K/mcL LAB HEMETOLOGY METHOD 12/19/2024 7:52 AM EDT [facility] RBC 3.60(L) 4.50 - 5.50 M/mcL LAB HEMETOLOGY METHOD 12/19/2024 7:52 AM EDT [facility] Hemoglobin 10.3(L) 13.5 - 17.5 g/dL LAB HEMETOLOGY METHOD 12/19/2024 7:52 AM EDT [facility] Hematocrit 31.6(L) 42.0 - 54.0 % LAB HEMETOLOGY METHOD 12/19/2024 7:52 AM EDT [facility] MCV 88.8 79.0 - 98.0 FL LAB HEMETOLOGY METHOD 12/19/2024 7:52 AM EDT [facility] MCH 28.9 27.0 - 32.0 pcg LAB HEMETOLOGY [facility] MCHC 32.6 32.0 - 37.0 g/dL LAB HEMETOLOGY METHOD 12/19/2024 7:52 AM EDT [facility] RDW 16.2(H) 11.0 - 15.0 % LAB HEMETOLOGY METHOD 12/19/2024 7:52 AM EDT [facility] Platelets 308 130 - 400 K/mcL LAB HEMETOLOGY METHOD [facility]24 [facility] MPV 9.1 7.0 - 11.0 FL LAB HEMETOLOGY METHOD 12/19/2024 7:52 AM EDT [facility] NRBC 0.0 <1.0 % LAB HEMETOLOGY METHOD 12/19/2024 7:52 AM EDT [facility] NRBC Absolute 0.00 <0.10 K/mcL LAB HEMETOLOGY METHOD 12/19/2024 7:52 AM EDT [facility] Blood Venous blood specimen / Unknown Venipuncture / Unknown 12/19/2024 4:48 AM EDT 12/19/2024 7:19 AM EDT us Jarad Lundy MD LAB BLOOD ORDERABLES Final Resu lt [facility] [address] [place] [address], [place] [phone] documented in this encounter Visit Diagnoses Diagnosis Type 2 diabetes mellitus without complications (CMS/HCC V24, CMS/HCC V28) documented in this encounter Care Teams Hotel Valet Attendant Relationship Specialty Start Date End Date Jarad Lundy MD [address] [place] [id number] PCP - General Hospitalist Medicine 12/17/24 documented as of this encounter
--- OUTSIDE RECORDS SUMMARY | 2025-06-04 03:39 | XMS_ITS | Clinical Summary ---
Author Organization [facility] Address [address] [place] [address] Phone Care Team Providers Care Director Workers Compensation Name Role Phone Blanca Crowley MD Primary Care Pro vider Encounters Date Type Department Care Team Description 04/18/2025 Orders Only [facility] [address] [place] [address] Homehealth, Interface ProviderMD from Last 3 Months [...] file Medical Devices Not on file [place] [place] [address] MEDICARE REPLACEMENT MEDICARE PART A & B [facility] MEDICARE REPLACEMENT [facility] MEDICARE REPLACEMENT MEDICARE PART A & B [facility] MEDICARE REPLACEMENT [facility] MEDICARE REPLACEMENT MEDICARE PART A & B [facility] MEDICARE REPLACEMENT [facility] MEDICARE REPLACEMENT MEDICARE PART A & B [facility] MEDICARE REPLACEMENT [facility] MEDICARE REPLACEMENT MEDICARE PART A & B [facility] MEDICARE REPLACEMENT [facility] MEDICARE REPLACEMENT MEDICARE PART A & B [facility] MEDICARE REPLACEMENT Care Teams Director Workers Compensation Relationship Specialty Start Date End Date Blanca Crowley MD [address] [place] [phone] PCP - General Internal Medicine 04/18/25 Additional Source Comments The information contained in this document represents components of the legal health record. It is not the complete legal health record.[facility]
--- OUTSIDE RECORDS SUMMARY | 2025-06-04 03:39 | XMS_ITS | Clinical Summary ---
Author Organization [address] Address [address] [place] [address] Phone Care Team Providers Care Radiographic Technologist Name Role Phone Jarad Lundy MD Primary Care Provider [phone] Surgical History Surgery Date Site/Laterality Comments SHOULDER SURGERY 06/18/07 PROCEDURE: HISTORICAL SHOULDER SURGERY; COMMENT: Rotator cuff- Dr. Adis King APPENDECTOMY PROCEDURE: HISTORICAL APPENDECTOMY COLONOSCOPY 12/28/2011 PROCEDURE: HISTORICAL COLONOSCOPY; COMMENT: normal UPPER GASTROINTESTINAL ENDOSCOPY 03/14/2016 PROCEDURE: RI UPPER GI ENDOSCOPY PERFORMED; COMMENT: Visually normal; duodenal biopsies: Minimal nonspecific inflammation Medical History Medical History Date Comments Unspecified essential hypertension DX:Unspecified essential hypertension Basilar artery aneurysm ([facility] V24) 10/07/2013 DX:Basilar artery aneurysm ([facility]) Type 2 diabetes, diet contro lled ([facility] V24, [facility] V28) 10/07/2013 DX:Type 2 diabetes, diet co ntrolled ([facility]) Type 2 diabetes, diet contro lled ([facility] V24, [facility] V28) 10/07/2013 DX:Type 2 diabetes, diet co ntrolled ([facility]) Controlled type 2 diabetes w ith renal [...] RSV Immunization Adult Patients (1 - Risk 50-74 years 1-dose series) 2002 Abdominal Aortic Aneurysm (AAA) Screen 07/26/2022 Falls [...] EDT Type 2 diabetes mellitus without complications ([facility] V24, [facility] V28) HEMOGLOBIN A1C Routine 12/19/2024 4:48 AM EDT Type 2 diabetes mellitus without complications ([facility] V24, [facility] V28) from Last 3 Months or Most Recently Relevant to Health Maintenance Results * Hemoglobin A1c (12/19/2024 4:48 AM EDT) Hemoglobin A1C 5.7 <6.5 % LAB CHEMISTRY METHOD 12/19/2024 11:02 AM EDT [facility] Mean Bld Glu Estim. 117 mg/dL LAB CHEMISTRY METHOD 12/19/2024 11:02 AM EDT [facility] Blood Venous blood specimen / Unknown Venipuncture / Unknown 12/19/2024 4:48 AM EDT 12/19/2024 7:19 AM EDT us Jarad Lundy MD LAB BLOOD ORDERABLES Final Resu lt [facility] [address] [place] [address], [place] [phone] * (ABNORMAL) Comprehensive metabolic panel (12/19/2024 4:48 AM EDT) Sodium 141 133 - 145 mmol/L LAB CHEMISTRY METHOD 12/19/2024 8:[address] [facility] Potassium 3.3(L) 3.5 - 5.5 mmol/L LAB CHEMISTRY METHOD 12/19/2024 8:[address] [facility] Chloride 106 96 - 110 mmol/L LAB CHEMISTRY METHOD 12/19/2024 8:[address] [facility] CO2 26 21 - 32 mmol/L LAB CHEMISTRY METHOD 12/19/2024 8:[address] [facility] Anion Gap 9 3 - 11 LAB CHEMISTRY METHOD 12/19/2024 8:[address] [facility] Glucose 74 70 - 100 mg/dL LAB CHEMISTRY METHOD 12/19/2024 8:[address] [facility] BUN 26(H) 5 - 25 mg/dL LAB CHEMISTRY METHOD 12/19/2024 8:[address] [facility] Creatinine 1.68(H) 0.70 - 1.30 mg/dL LAB CHEMISTRY METHOD 12/19/2024 8:[address] [facility] eGFR 43(L) >=60 mL/min/1. 73m2 LAB CHEMISTRY METHOD 12/19/2024 8:[address] [facility] Comment:Calculation based on the Chronic Kidney Disease Epidemiology Collaboration (CKD-EPI) equation refit without adjustment for race. BUN/Creatinine Ratio 15.5 LAB CHEMISTRY METHOD 12/19/2024 8:[address] [facility] Calcium 8.1(L) 8.5 - 10.5 mg/dL LAB CHEMISTRY METHOD 12/19/2024 8:[address] [facility] AST (SGOT) 20 10 - 42 unit/L LAB CHEMISTRY METHOD 12/19/2024 8:[address] [facility] ALT (SGPT) 18 10 - 60 unit/L LAB CHEMISTRY METHOD 12/19/2024 8:[address] [facility] Alkaline Phosphatase 210(H) 42 - 121 unit/L LAB CHEMISTRY METHOD 12/19/2024 8:20 AM EDT [facility] Total Protein 5.3(L) 6.0 - 8.0 g/dL LAB CHEMISTRY METHOD 12/19/2024 8:20 AM EDT [facility] Albumin 2.0(L) 3.2 - 5.0 g/dL LAB CHEMISTRY METHOD 12/19/2024 8:20 AM EDT [facility] Total Bilirubin 0.6 0.0 - 1.4 mg/dL LAB CHEMISTRY METHOD 12/19/2024 8:20 AM EDT [facility] Blood Venous blood specimen / Unknown Venipuncture / Unknown 12/19/2024 4:48 AM EDT 12/19/2024 7:19 AM EDT us Jarad Lundy MD LAB BLOOD ORDERABLES Final Resu lt [facility] [address] [place] [address], from Last 3 Months or Most Recently Relevant to Health Maintenance Insurance [place] [facility] [place] [id number] Care Teams Radiographic Technologist Relationship Specialty Start Date End Date Jarad Lundy MD [address] [place] [phone] PCP - General Hospitalist Medicine 12/17/24
--- OUTSIDE RECORDS SUMMARY | 2025-06-04 03:39 | XMS_ITS | Encounter Summary ---
Author Organization [facility] Address [address] [place] [address] Care Team Providers Care Manager Organizational Name Role Phone Jarad Lundy MD Primary Care Provider [phone] Encounter Details Date Type Department Care Team (Late st Contact Info) Description 12/17/2024 Lab Requisition [facility] - Main Lab [address] [facility] [place] [address] Jarad Lundy MD [address] [place] [phone] Anemia, unspecified; Chronic kidney disease, stage 3a [...] K/mcL LAB HEMETOLOGY METHOD 12/17/2024 9:04 AM [facility] RBC 3.60(L) 4.50 - 5.50 M/mcL LAB HEMETOLOGY METHOD 12/17/2024 9:04 AM [facility] Hemoglobin 10.7(L) 13.5 - 17.5 g/dL LAB HEMETOLOGY METHOD 12/17/2024 9:04 AM [facility] Hematocrit 32.4(L) 42.0 - 54.0 % LAB HEMETOLOGY METHOD 12/17/2024 9:04 AM [facility] MCV 90.0 79.0 - 98.0 FL LAB HEMETOLOGY METHOD 12/17/2024 9:04 AM [facility] MCH 29.7 27.0 - 32.0 pcg LAB HEMETOLOGY METHOD 12/17/2024 9:04 AM [facility] MCHC 33.0 32.0 - 37.0 g/dL LAB HEMETOLOGY METHOD 12/17/2024 9:04 AM [facility] RDW 16.6(H) 11.0 - 15.0 % LAB HEMETOLOGY METHOD 12/17/2024 9:04 AM [facility] Platelets 335 130 - 400 K/mcL LAB HEMETOLOGY METHOD 12/17/2024 9:04 AM [facility] MPV 9.1 7.0 - 11.0 FL LAB HEMETOLOGY METHOD 12/17/2024 9:04 AM [facility] NRBC 0.0 <1.0 % LAB HEMETOLOGY METHOD 12/17/2024 9:04 AM [facility] NRBC Absolute 0.00 <0.10 K/mcL LAB HEMETOLOGY METHOD 12/17/2024 9:04 AM [facility] Neutrophils Relative 76.7 % LAB HEMETOLOGY METHOD 12/17/2024 9:04 AM [facility] Lymphocytes Relative 16.2 % LAB HEMETOLOGY METHOD 12/17/2024 9:04 AM [facility] Monocytes Relative 5.4 % LAB HEMETOLOGY METHOD 12/17/2024 9:04 AM [facility] Eosinophils Relative 0.8 % LAB HEMETOLOGY METHOD 12/17/2024 9:04 AM [facility] Basophils Relative 0.2 % LAB HEMETOLOGY METHOD 12/17/2024 9:04 AM [facility] Immature Granulocytes Relative 0.7 % LAB HEMETOLOGY METHOD 12/17/2024 9:04 AM [facility] Neutrophils Absolute 8.40(H) 1.50 - 7.00 K/mcL LAB HEMETOLOGY METHOD 12/17/2024 9:04 AM [facility] Lymphocytes Absolute 1.78 1.00 - 5.00 K/mcL LAB HEMETOLOGY METHOD 12/17/2024 9:04 AM [facility] Monocytes Absolute 0.59 0.20 - 1.00 K/mcL LAB HEMETOLOGY METHOD 12/17/2024 9:04 AM [facility] Eosinophils Absolute 0.09 0.00 - 0.50 K/mcL LAB HEMETOLOGY METHOD 12/17/2024 9:04 AM [facility] Basophils Absolute 0.02 0.00 - 0.20 K/mcL LAB HEMETOLOGY METHOD 12/17/2024 9:04 AM [facility] Immature Granulocytes Absolute 0.08(H) 0.00 - 0.03 K/mcL LAB HEMETOLOGY METHOD 12/17/2024 9:04 AM [facility] Blood Venous blood specimen / Unknown Venipuncture / Unknown 12/17/2024 4:55 AM EDT 12/17/2024 8:39 AM EDT us Jarad Lundy MD LAB BLOOD ORDERABLES Final Resu lt [facility] [address] [place] [address], [place] [phone] * (ABNORMAL) Basic metabolic panel (12/17/2024 4:55 AM EDT) Sodium 141 133 - 145 mmol/L LAB CHEMISTRY METHOD 12/17/2024 9:22 AM [facility] Potassium 3.5 3.5 - 5.5 mmol/L LAB CHEMISTRY METHOD 12/17/2024 9:22 AM [facility] Chloride 107 96 - 110 mmol/L LAB CHEMISTRY METHOD 12/17/2024 9:22 AM [facility] CO2 27 21 - 32 mmol/L LAB CHEMISTRY METHOD 12/17/2024 9:22 AM [facility] Anion Gap 7 3 - 11 LAB CHEMISTRY METHOD 12/17/2024 9:22 AM [facility] Glucose 61(L) 70 - 100 mg/dL LAB CHEMISTRY METHOD 12/17/2024 9:22 AM [facility] BUN 26(H) 5 - 25 mg/dL LAB CHEMISTRY METHOD 12/17/2024 9:22 AM [facility] Creatinine 1.61(H) 0.70 - 1.30 mg/dL LAB CHEMISTRY METHOD 12/17/2024 9:22 AM [facility] eGFR 45(L) >=60 mL/min/1. 73m2 LAB CHEMISTRY METHOD 12/17/2024 9:22 AM EDT [facility] Comment:Calculation based on the Chronic Kidney Disease Epidemiology Collaboration (CKD-EPI) equation refit without adjustment for race. BUN/Creatinine Ratio 16.1 LAB CHEMISTRY METHOD 12/17/2024 9:22 AM EDT [facility] Calcium 8.2(L) 8.5 - 10.5 mg/dL LAB CHEMISTRY METHOD 12/17/2024 9:22 AM EDT [facility] Blood Venous blood specimen / Unknown Venipuncture / Unknown 12/17/2024 4:55 AM EDT 12/17/2024 8:39 AM EDT us Jarad Lundy MD LAB BLOOD ORDERABLES Final Resu lt [facility] [address] [place] [address], documented in this encounter Visit Diagnoses Diagnosis Anemia, unspecified Chronic kidney disease, stage 3a (CMS/HCC V24, CMS/HCC V28) documented in this encounter Care Teams Manager Organizational Relationship Specialty Start Date End Date Jarad Lundy MD [address] [place] [phone] PCP - General Hospitalist Medicine 12/17/24 documented as of this encounter
--- NOTE | 2025-06-04 04:21 | PC.NURSE ---
nurse to nurse report called to Maureen RN at [facility] when pt resides.
[2025-06-04 04:39] VITALS: BP 101/44; PULSE 63; RESP 14; O2SAT 94
[2025-06-04 04:40] VITALS: BP 101/44; PULSE 63; RESP 14; TEMP 36.4; O2SAT 94
== END 2025-06-04 04:42 | disposition home or self-care (01) ==
PROVIDERS: Emergency Provider Emergency Medicine; PCP Student in an Organized Health Care Education/Training Program
DX: T83.021A Displacement of indwelling urethral catheter, initial encounter (principal); E11.22 Type 2 diabetes mellitus with diabetic chronic kidney disease; I13.0 Hypertensive heart and chronic kidney disease with heart failure and stage 1 through stage 4 chronic kidney disease, or unspecified chronic kidney disease; N18.4 Chronic kidney disease, stage 4 (severe); I50.32 Chronic diastolic (congestive) heart failure; I48.20 Chronic atrial fibrillation, unspecified; Z79.01 Long term (current) use of anticoagulants; Z79.899 Other long term (current) drug therapy
CPT/HCPCS: 99283; 99284